=== PATIENT | male | born 1950 | race Caucasian/White ===

== ENCOUNTER 2022-09-13 09:54 | Outpatient (OUT) | payer MEDICARE, OTHER, SELFPAY ==
--- NOTE | 2022-09-13 10:10 | XR_ITS ---
The [address] [address] Patient Name: LAKIA RODRIGUEZ MRN: [id number] date: 1950 Sex: M Assigned Patient Location: [facility] Current Patient Location: [facility] Accession/Order Number: [id number] Exam Date: 09/13/2022 10:20 Report Date: 09/13/2022 12:23 At the request of: SILVIO AGUILA Procedure: XR abdomen 1V EXAM: XR abdomen 1V HISTORY: Constipation K59.00 COMPARISON: None. TECHNIQUE: AP view of the abdomen. FINDINGS: Nonobstructive bowel gas pattern is noted. There is no suspicious calcification. The osseous structures are intact. XR/XR abdomen 1V IMPRESSION: Nonobstructive bowel gas pattern. Mild constipation. Electronically authenticated by: PASTOR CAMPBELL Date: 09/13/2022 12:23
== END 2022-09-13 09:55 | disposition home or self-care (01) ==
LOC: RAD 10:02
PROVIDERS: PCP Nurse Practitioner Family; Visit Provider Nurse Practitioner Family
DX: K59.00 Constipation, unspecified (principal)
CPT/HCPCS: 74018

== ENCOUNTER 2022-09-25 10:32 | Outpatient (RCR) | payer MEDICARE, OTHER, SELFPAY | END 2022-10-11 15:46 | disposition home or self-care (01) | LOC: MM 10:32 | PROVIDERS: PCP Nurse Practitioner Family; Visit Provider Internal Medicine | DX: Z51.81 Encounter for therapeutic drug level monitoring (principal); Z79.01 Long term (current) use of 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 ==

== ENCOUNTER 2022-10-12 07:59 | Outpatient (RCR) | payer MEDICARE, OTHER, SELFPAY | END 2022-11-09 16:31 | disposition home or self-care (01) | LOC: MM 07:59 | PROVIDERS: PCP Nurse Practitioner Family; Visit Provider Internal Medicine | DX: Z51.81 Encounter for therapeutic drug level monitoring (principal); Z79.01 Long term (current) use of 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; I48.20 Chronic atrial fibrillation, unspecified | CPT/HCPCS: 85610; G0463 ==

== ENCOUNTER 2022-11-12 01:26 | Outpatient (RCR) | payer MEDICARE, OTHER, SELFPAY | END 2022-12-11 17:10 | disposition home or self-care (01) | LOC: MM 01:26 | PROVIDERS: PCP Nurse Practitioner Family; Visit Provider Internal Medicine | DX: Z51.81 Encounter for therapeutic drug level monitoring (principal); Z79.01 Long term (current) use of 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 ==

== ENCOUNTER 2022-11-13 15:59 | Outpatient (OUT) | payer MEDICARE, OTHER, SELFPAY | END 2022-11-13 16:00 | disposition home or self-care (01) | LOC: WC 16:00 | PROVIDERS: PCP Nurse Practitioner Family; Visit Provider Podiatrist Foot & Ankle Surgery | DX: S80.811A Abrasion, right lower leg, initial encounter (principal) | CPT/HCPCS: G0463 ==

== ENCOUNTER 2022-11-24 20:36 | Emergency (ER) | payer MEDICARE, OTHER, SELFPAY ==
[2022-11-24] VITALS (25 sets, daily range): BP systolic 114–149; BP diastolic 73–92; PULSE 62–218; RESP 12–27; TEMP 36.6; O2SAT 91–97
--- NOTE | 2022-11-24 20:59 | ECG_ITS ---
The [facility] Test Date: 2022-11-24 Pat Name: LAKIA RODRIGUEZ Department: Room: - Gender: Male Patient Relations Specialist: : 1950 Requested By: SILVIO AGUILA Order Number: [id number] Reading MD: YONATHAN DOMINGUEZ Measurements Intervals [place] Rate: 91 P: 61 MT: 162 QRS: 197 QRSD: 104 T: 60 QT: 358 QTc: 407 Interpretive Statements 1100 Sinus rhythm 1574 with frequent ventricular premature complexes 2440 Incomplete right bundle branch block 4068 Nonspecific Twave abnormality 5120 Possible right ventricular hypertrophy 9140 abnormal rhythm ECG No previous ECG available for comparison Electronically Signed On 11-25-2022 9:23:44 EDT by YONATHAN DOMINGUEZ
--- NOTE | 2022-11-24 20:59 | XR_ITS ---
The [place] [id number] Patient Name: LAKIA RODRIGUEZ MRN: [id number] date: 1950 Sex: M Assigned Patient Location: ER Current Patient Location: ED.MAIN Accession/Order Number: [id number] Exam Date: 11/24/2022 21:15 Report Date: 11/24/2022 22:54 At the request of: SHANELL SUNSHINE Procedure: XR chest 1V EXAMINATION: XR chest 1V, , 11/24/2022 9:15 PM EDT INDICATION: near syncope, palpitations HISTORY: Ordering Provider Reason for Exam: near syncope, palpitations Technologist Note: Additional: COMPARISON: None. TECHNIQUE: Chest x-ray: One view. FINDINGS: No pneumothorax, pleural effusion or focal airspace consolidation. Heart is normal in size. Bony thorax is unremarkable. XR/XR chest 1V IMPRESSION: No acute cardiopulmonary process. Electronically authenticated by: CHRISTINA RODRIGUEZ Date: 11/24/2022 22:54
--- NOTE | 2022-11-24 21:01 | ED_ITS ---
HPI - Dizziness General Chief Complaint: Chest Pain Stated Complaint: DIZZY SPELLS Time Seen by Provider: 11/24/22 20:53 Source: patient Mode of arrival: walk-in History of Present Illness HPI Narrative: 9-year-old male presents for symptoms that began just after 5:30 PM, 3-1/2 hours ago. It started with burning in his mouth. That symptom has been coming and going. At certain times he felt like his heart was racing and he felt like he w as going to pass out. This has never happened to him previously. He has not had a fever cough or vomiting. He doesn't have symptoms now. Related Data Home Medications Medication Instructions Recorded Confirmed amlodipine 2.5 mg tablet 2.5 mg PO DAILY 11/24/22 11/24/22 atorvastatin 10 mg tablet 10 mg PO DAILY 11/24/22 11/24/22 glipizide 5 mg tablet 5 mg PO DAILY 11/24/22 11/24/22 lisinopril 2.5 mg tablet 2.5 mg PO DAILY 11/24/22 11/24/22 warfarin 4 mg tablet 4 mg PO DAILY 11/24/22 11/24/22 Allergies Allergy/AdvReac Type Severity Reaction Status Date / Time Penicillins Allergy Unknown Verified 11/24/22 20:52 Review of Systems ROS Narrative A ten point review of systems is negative except as noted above. PFSH PFS Social History Smoking status: Never smoker Exam Narrative Exam Narrative: Nurses note and vital signs reviewed and patient is not hypoxic. General: The patient appears well and in no apparent distress. Patient is resting comfortably on cart. Skin: Warm, dry, no pallor noted. There is no rash noted. Head: Normocephalic, atraumatic Eye: Normal conjunctiva, no drainage Ears, Nose, Mouth, and Throat: oral mucosa is moist. Nares patent. Cardiovascular: Regular Rate and Rhythm Respiratory: Patient is in no distress, no accessory muscle use, lungs are clear to auscultation, no wheezing, rales or rhonchi Back: non-tender, no CVA tenderness bilaterally to percussion. GI: soft and nontender Musculoskeletal: The patient has no evidence of calf tenderness, no pitting edema, symmetrical pulses noted bilaterally Neurological: A&O, normal speech Psychiatric: Cooperative Constitutional Vital Signs, click to edit/add: Last Vital Signs Temp 98 F 11/24/22 20:41 Pulse 88 11/24/22 21:18 Resp 18 11/24/22 21:18 BP 149/92 H 11/24/22 21:18 Pulse Ox 97 11/24/22 21:18 O2 Del Method Room Air 11/24/22 20:41 Course Vital Signs Vital signs: Vital Signs Temperature 98 F 11/24/22 20:41 Pulse Rate 218 H 11/24/22 20:41 Respiratory Rate 16 11/24/22 20:41 Blood Pressure 149/92 H 11/24/22 20:41 Pulse Oximetry 96 11/24/22 20:41 Oxygen Delivery Method Room Air 11/24/22 20:41 Temperature 98 F 11/24/22 20:41 Pulse Rate 88 11/24/22 21:18 Respiratory Rate 18 11/24/22 21:18 Blood Pressure 149/92 H 11/24/22 21:18 Pulse Oximetry 97 11/24/22 21:18 Oxygen Delivery Method Room Air 11/24/22 20:41 MDM - Dizziness MDM Narrative Medical decision making narrative: The patient has had several episodes of a wide-complex tachycardia with a heart rate near two hundred, regular. Working diagnosis is that this is ventricular tachycardia the possibility of atrial fibrillation with aberrancy cannot be ruled out at this point. I discussed the case with Dr. Bradley who requests that the patient be transferred and be given a loading dose of amiodarone as well as a drip. The patient remains hemodynamically stable here and is agreeable for transfer. Findings are discussed thoroughly with the patient. Differential Diagnosis Differential diagnosis: Likely other (tachycardia, atrial fibrillation with aberrantly, a flutter) Lab Data Attestation: I reviewed the patient's lab results. Labs: Lab Results 11/24/22 Range/Units 21:00 WBC 10.2 (4.0-11.0) 10^3/uL RBC 5.19 (4.70-6.10) 10^6/uL Hgb 15.5 (14.0-18.0) g/dL Hct 46.0 (42.0-54.0) % MCV 88.6 (80.0-94.0) fL MCH 29.9 (25.9-34.0) pg MCHC 33.7 (29.9-35.2) g/dL RDW 13.9 (11.0-15.0) % Plt Count 229 (150-450) 10^3/uL MPV 10.5 (9.5-13.5) fL Neut % (Auto) 78.0 H (43.0-75.0) % Lymph % (Auto) 13.6 L (20.5-60.0) % [place] % (Auto) 6.7 (1.7-12.0) % Eos % (Auto) 1.1 (0.9-7.0) % Baso % (Auto) 0.4 (0.2-2.0) % Neut # (Auto) 8.0 H (1.4-6.5) 10^3/uL Lymph # (Auto) 1.4 (1.2-3.8) 10^3/uL [place] # (Auto) 0.7 (0.3-0.8) 10^3/uL Eos # (Auto) 0.1 (0.0-0.7) 10^3/uL Baso # (Auto) 0.0 (0.0-0.1) 10^3/uL Abs Immat Gran (auto) 0.02 (0.00-0.03) 10^3/uL Imm/Tot Granulo (auto) 0.2 (0.0-0.5) % Sodium 135 L (136-145) mmol/L Potassium 3.5 (3.5-5.1) mmol/L Chloride 101 (98-107) mmol/L Carbon Dioxide 27.7 (21.0-32.0) mmol/L Anion Gap 9.8 BUN 21.0 H (7.0-18.0) mg/dL Creatinine 1.70 H (0.70-1.30) mg/dL Est GFR ( Amer) 49 L (>=60) Est GFR (Non-Af Amer) 40 L (>=60) BUN/Creatinine Ratio 12.4 Glucose 286 H (74-106) mg/dL Calcium 9.0 (8.5-10.1) mg/dL Troponin I High Sens 20.8 (4.0-76.1) pg/mL TSH 1.354 (0.358-3.740) uIU/mL Imaging Data Chest x-ray: My impression: chest x-ray my interpretation shows no acute findings. ECG Data Attestation: I personally reviewed and interpreted this ECG as follows: (EKG on my interpretation shows sinus rhythm with frequent PVCs.) Critical Care Time Critical Care Time Critical Care Time: Yes Total Critical Care Time: 40 Attestation: Due to the high probability of sudden and clinically significant deterioration in the patient's condition he/she required the highest level of my preparedness to intervene urgently I provided critical care time including documentation time, medication orders and management, reevaluation, vital sign assessment, ordering and reviewing of lab tests, ordering and reviewing of x-ray studies, and admission orders. Aggregate critical care time is 40 minutes including only time during which I was engaged in work directly related to his/her care and did not include time spent treating other patients simultaneously. Discharge Plan Discharge Chief Complaint: Chest Pain Clinical Impression: Ventricular tachycardia (paroxysmal) Patient Disposition: [facility] Time of Disposition Decision: 22:16 Discharge Location: The [facility] Mode of Transportation: EMS
[2022-11-24 21:13] LABS: Basophils Percent Auto 0.4 % (0.2-2.0); Eosinophils Absolute Auto 0.1 10^3/uL (0.0-0.7); Eosinophils Percent Auto 1.1 % (0.9-7.0); Hemoglobin 15.5 g/dL (14.0-18.0); Immature Granulocytes Abs Auto 0.02 10^3/uL (0.00-0.03); Immature Granulocytes Pct Auto 0.2 % (0.0-0.5); Lymphocytes Absolute Auto 1.4 10^3/uL (1.2-3.8); Lymphocytes Percent Auto 13.6 % (20.5-60.0); Mean Corpuscular HGB Conc 33.7 g/dL (29.9-35.2); Mean Corpuscular Hemoglobin 29.9 pg (25.9-34.0); Mean Corpuscular Volume 88.6 fL (80.0-94.0); Mean Platelet Volume 10.5 fL (9.5-13.5); Monocytes Absolute Auto 0.7 10^3/uL (0.3-0.8); Monocytes Percent Auto 6.7 % (1.7-12.0); Platelet Count 229 10^3/uL (150-450); Red Blood Count 5.19 10^6/uL (4.70-6.10); Red Cell Distribution Width 13.9 % (11.0-15.0); White Blood Count 10.2 10^3/uL (4.0-11.0)
[2022-11-24 21:37] LABS: Anion Gap 9.8; BUN Creatinine Ratio 12.4; Carbon Dioxide 27.7 mmol/L (21.0-32.0); Chloride 101 mmol/L (98-107); Estimated GFR (African America 49 (>=60); Estimated GFR (Non-African Ame 40 (>=60); Glucose 286 mg/dL (74-106); Potassium 3.5 mmol/L (3.5-5.1); Sodium 135 mmol/L (136-145); Thyroid Stimulating Hormone 1.354 uIU/mL (0.358-3.740); Troponin I High Sensitivity 20.8 pg/mL (4.0-76.1)
[2022-11-24] MEDS: AMIODARONE IN DEXTROSE,ISO-OSM 150 MG/100 ML PIGGYBACK 600 MG IV (22:23)
[2022-11-24] MEDS: AMIODARONE IN DEXTROSE,ISO-OSM 360 MG/200 ML PLAST..BAG 33.333 MG IV (22:24)
[2022-11-24 22:29] LABS: Magnesium 1.8 mg/dL (1.8-2.4)
[2022-11-24 22:34] LABS: INR 1.73; Prothrombin Time 17.8 sec (9.0-11.6)
[2022-11-25] VITALS (18 sets, daily range): BP systolic 109–129; BP diastolic 74–87; PULSE 58–70; RESP 11–18; O2SAT 90–98
== END 2022-11-25 03:17 | disposition short-term general hospital (02) ==
PROVIDERS: Emergency Provider Emergency Medicine; PCP Nurse Practitioner Family
DX: I47.20 Ventricular tachycardia, unspecified (principal); Z79.899 Other long term (current) drug therapy; Z79.01 Long term (current) use of 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
CPT/HCPCS: 36415; 71045; 80048; 83735; 84443; 84484; 85025; 85610; 93005; 96374; 99285

== ENCOUNTER 2022-12-12 00:09 | Outpatient (RCR) | payer MEDICARE, OTHER, SELFPAY | END 2023-01-10 16:01 | disposition home or self-care (01) | LOC: MM 00:09 | PROVIDERS: PCP Nurse Practitioner Family; Visit Provider Internal Medicine | DX: Z51.81 Encounter for therapeutic drug level monitoring (principal); Z79.01 Long term (current) use of 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 | CPT/HCPCS: 85610; G0463 ==

== ENCOUNTER 2023-01-08 12:37 | Outpatient (OUT) | payer MEDICARE, OTHER, SELFPAY ==
[2023-01-08 14:49] LABS: Anion Gap 9.5; BUN Creatinine Ratio 15.7; Calcium 8.7 mg/dL (8.5-10.1); Carbon Dioxide 32.6 mmol/L (21.0-32.0); Chloride 103 mmol/L (98-107); Estimated GFR (African America 55 (>=60); Estimated GFR (Non-African Ame 45 (>=60); Glucose 187 mg/dL (74-106); Potassium 4.1 mmol/L (3.5-5.1); Sodium 141 mmol/L (136-145)
== END 2023-01-08 12:38 | disposition home or self-care (01) ==
LOC: LAB 12:38
PROVIDERS: PCP Nurse Practitioner Family; Visit Provider Nurse Practitioner Family
DX: I11.0 Hypertensive heart disease with heart failure (principal); I50.22 Chronic systolic (congestive) heart failure
CPT/HCPCS: 36415; 80048

== ENCOUNTER 2023-01-11 08:49 | Outpatient (RCR) | payer MEDICARE, OTHER, SELFPAY | END 2023-02-08 14:31 | disposition home or self-care (01) | LOC: MM 08:49 | PROVIDERS: PCP Nurse Practitioner Family; Visit Provider Internal Medicine | DX: Z51.81 Encounter for therapeutic drug level monitoring (principal); Z79.01 Long term (current) use of 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; I48.20 Chronic atrial fibrillation, unspecified | CPT/HCPCS: 85610; G0463 ==

== ENCOUNTER 2023-01-12 16:08 | Emergency (ER) | payer MEDICARE, OTHER, SELFPAY ==
[2023-01-12] VITALS (11 sets, daily range): BP systolic 138–180; BP diastolic 85–103; PULSE 61–73; RESP 9–19; TEMP 37.1; O2SAT 90–98; BMI 30.1
--- NOTE | 2023-01-12 16:22 | ECG_ITS ---
The [facility] Test Date: 2023-01-12 Pat Name: LAKIA RODRIGUEZ Department: Room: - Gender: Male Director College: : 1950 Requested By: SILVIO AGUILA Order Number: [id number] Reading MD: YONATHAN DOMINGUEZ Measurements Intervals [place] Rate: 68 P: 30 TN: 156 QRS: 140 QRSD: 102 T: 30 QT: 416 QTc: 433 Interpretive Statements 1100 Sinus rhythm 2440 Incomplete right bundle branch block 4068 Nonspecific Twave abnormality 5120 Possible right ventricular hypertrophy Can't exclude lateral wall ischemia 9130 borderline ECG Compared to ECG 11/24/2022 21:01:28 Ventricular premature complex(es) no longer present Electronically Signed On 01-13-2023 19:59:46 EST by YONATHAN DOMINGUEZ
--- NOTE | 2023-01-12 16:22 | XR_ITS ---
The [address] [address] Patient Name: LAKIA RODRIGUEZ MRN: [id number] date: 1950 Sex: M Assigned Patient Location: ER Current Patient Location: ED.MAIN Accession/Order Number: [id number] Exam Date: 01/12/2023 16:50 Report Date: 01/12/2023 17:31 At the request of: HARRY MELISSA Procedure: XR chest 1V EXAMINATION: XR chest 1V HISTORY: Shortness of breath COMPARISON: Portable chest 11/24/2022 TECHNIQUE: Portable chest FINDINGS: Interval placement of a left-sided cardiac pacemaker. The lung parenchyma is free of consolidation or infiltrate. No pneumothorax or pleural effusion. Stable calcified left hilar lymph node. The cardiac, mediastinal and hilar contours are normal. The visualized osseous structures exhibit no gross abnormality. XR/XR chest 1V IMPRESSION: No acute cardiopulmonary abnormality. Electronically authenticated by: FELICIA SANDERSON Date: 01/12/2023 17:31
[2023-01-12 16:47] LABS: Basophils Percent Auto 0.3 % (0.2-2.0); Eosinophils Percent Auto 0.1 % (0.9-7.0); Hematocrit 45.6 % (42.0-54.0); Hemoglobin 15.2 g/dL (14.0-18.0); Immature Granulocytes Abs Auto 0.03 10^3/uL (0.00-0.03); Immature Granulocytes Pct Auto 0.4 % (0.0-0.5); Lymphocytes Absolute Auto 0.3 10^3/uL (1.2-3.8); Lymphocytes Percent Auto 4.1 % (20.5-60.0); Mean Corpuscular HGB Conc 33.3 g/dL (29.9-35.2); Mean Corpuscular Hemoglobin 29.7 pg (25.9-34.0); Mean Corpuscular Volume 89.2 fL (80.0-94.0); Mean Platelet Volume 10.3 fL (9.5-13.5); Monocytes Absolute Auto 0.8 10^3/uL (0.3-0.8); Monocytes Percent Auto 10.3 % (1.7-12.0); Neutrophils Absolute Auto 6.7 10^3/uL (1.4-6.5); Neutrophils Percent Auto 84.8 % (43.0-75.0); Platelet Count 166 10^3/uL (150-450); Red Blood Count 5.11 10^6/uL (4.70-6.10); Red Cell Distribution Width 14.7 % (11.0-15.0); White Blood Count 7.9 10^3/uL (4.0-11.0)
[2023-01-12 17:00] LABS: SARS-CoV-2 Ag POSITIVE (NEGATIVE)
--- NOTE | 2023-01-12 17:10 | ED.SOB1 ---
HPI - SOB/Dyspnea General Chief Complaint: Shortness of Breath/Dyspnea Stated Complaint: pacemaker comp, sob Time Seen by Provider: 01/12/23 16:16 Mode of arrival: ambulance History of Present Illness HPI Narrative: Patient brought in by EMS for evaluation after he developed shortness of breath yesterday. he had a cough a few days ago and is bringing up yellowish green sputum. [facility] - after he had a pacemaker placed at [facility] last month. He said that he had a right lung collapse and had to have a chest tube placed. He was there `10 days before going [facility]. He has been home about 2 weeks. He admits to being out and about since then and is uncertain regarding potential ill contacts but admits it might be Covid . Related Data Home Medications Medication Instructions Recorded Confirmed amlodipine 2.5 mg tablet 2.5 mg PO DAILY 11/24/22 11/24/22 atorvastatin 10 mg tablet 10 mg PO DAILY 11/24/22 11/24/22 glipizide 5 mg tablet 5 mg PO DAILY 11/24/22 11/24/22 lisinopril 2.5 mg tablet 2.5 mg PO DAILY 11/24/22 11/24/22 warfarin 4 mg tablet 4 mg PO DAILY 11/24/22 11/24/22 Allergies Allergy/AdvReac Type Severity Reaction Status Date / Time Penicillins Allergy Unknown Verified 01/12/23 16:20 [facility] Social History Smoking status: Never smoker Exam Narrative Exam Narrative: Nurses notes and vital signs reviewed and patient is not hypoxic. afebrile General: Well-appearing and in no apparent distress. Skin: Warm, dry, no pallor noted. No rash. Head: Normocephalic, atraumatic. Neck: Supple, non-tender. Eye: Pupils are equal, round and EOMI. No scleral icterus. Ears, Nose, Mouth, and Throat: TM are clear, no nasal mucosal hypertrophy. Oral mucosa is moist, no posterior oropharynx erythema, uvula is mid-line Cardiovascular: Regular Rate and Rhythm without murmur, gallop or rub. Respiratory: No accessory muscle use or respiratory distress. Lungs with scattered rhonchi. Harsh cough. Musculoskeletal: normal ROM, no calf or popliteal tenderness, no lower extremity edema/swelling GI: Abdomen is soft, non-distended. Normal bowel sounds. No tenderness to palpation. No rebound, guarding, or rigidity noted. Neurological: A&O x4. No cranial nerve dysfunction observed. No truncal ataxia. Moves all extremities. Sensation intact. Psychiatric: Cooperative and interactive. Normal mood and affect. Constitutional Vital Signs, click to edit/add: Last Vital Signs Temp 98.8 F 01/12/23 16:15 Pulse 64 01/12/23 16:50 Resp 13 01/12/23 16:50 BP 159/94 H 01/12/23 16:45 Pulse Ox 95 01/12/23 16:59 Course Vital Signs Vital signs: Vital Signs Temperature 98.8 F 01/12/23 16:15 Pulse Rate 70 01/12/23 16:15 Respiratory Rate 15 01/12/23 16:15 Blood Pressure 180/103 H 01/12/23 16:15 Temperature 98.8 F 01/12/23 16:15 Pulse Rate 64 01/12/23 16:50 Respiratory Rate 13 01/12/23 16:50 Blood Pressure 159/94 H 01/12/23 16:45 Pulse Oximetry 95 01/12/23 16:59 MDM - SOB/Dyspnea MDM Narrative Medical decision making narrative: Patient was placed on shelter monitor and EKG obtained. Blood drawn and sent for evaluation. chest x-ray obtained. CBC normal. BMP notable for slightly increased BUN and Cr. Trop & BNP negative. CXR negative. Swab for COVID was positive. He has been vaccinated and boosted. Discussed the pros and cons of Paxlovid but I have seen too many patient worsen after taking it so I do not recommend it and did not prescribe it for this patient. Patient discharged home. Patient advised to rest, stay at home, practice social distancing, take Motrin and Tylenol for pain and fever if not allergic, stay well hydrated with Gatorade or similar drinks if vomiting or eat as tolerated if not and take any meds as prescribed. Reviewed reasons to return including rapid increase in respiratory rate, shortness of breath, confusion, inability to keep down sips of swallowed liquids for more than 24 hours. Asked patient to encourage any ill contacts to stay home and practice similar advice. Lab Data Attestation: I reviewed the patient's lab results. Labs: Lab Results 01/12/23 01/12/23 Range/Units 16:30 16:38 WBC 7.9 (4.0-11.0) 10^3/uL RBC 5.11 (4.70-6.10) 10^6/uL Hgb 15.2 (14.0-18.0) g/dL Hct 45.6 (42.0-54.0) % MCV 89.2 (80.0-94.0) fL MCH 29.7 (25.9-34.0) pg MCHC 33.3 (29.9-35.2) g/dL RDW 14.7 (11.0-15.0) % Plt Count 166 (150-450) 10^3/uL MPV 10.3 (9.5-13.5) fL Neut % (Auto) 84.8 H (43.0-75.0) % Lymph % (Auto) 4.1 L (20.5-60.0) % [place] % (Auto) 10.3 (1.7-12.0) % Eos % (Auto) 0.1 L (0.9-7.0) % Baso % (Auto) 0.3 (0.2-2.0) % Neut # (Auto) 6.7 H (1.4-6.5) 10^3/uL Lymph # (Auto) 0.3 L (1.2-3.8) 10^3/uL [place] # (Auto) 0.8 (0.3-0.8) 10^3/uL Eos # (Auto) 0.0 (0.0-0.7) 10^3/uL Baso # (Auto) 0.0 (0.0-0.1) 10^3/uL Abs Immat Gran (auto) 0.03 (0.00-0.03) 10^3/uL Imm/Tot Granulo (auto) 0.4 (0.0-0.5) % Sodium 138 (136-145) mmol/L Potassium 3.8 (3.5-5.1) mmol/L Chloride 102 (98-107) mmol/L Carbon Dioxide 26.6 (21.0-32.0) mmol/L Anion Gap 13.2 BUN 19.0 H (7.0-18.0) mg/dL Creatinine 1.61 H (0.70-1.30) mg/dL Est GFR ( Amer) 52 L (>=60) Est GFR (Non-Af Amer) 43 L (>=60) BUN/Creatinine Ratio 11.8 Glucose 150 H (74-106) mg/dL Calcium 8.9 (8.5-10.1) mg/dL Troponin I High Sens 10.7 (4.0-76.1) pg/mL NT-Pro-B Natriuret Pep 757.0 (<=900.0) pg/mL SARS-CoV-2 (PCR) Positive A (NEGATIVE) Imaging Data Chest x-ray: Radiologist's impression: Patient Name: LAKIA RODRIGUEZ MRN: [facility]:[id number] date: 1950 Sex: M Assigned Patient Location: ER Current Patient Location: ED.MAIN Accession/Order Number: [id number] Exam Date: 01/12/2023 16:50 Report Date: 01/12/2023 17:31 At the request of: HARRY MELISSA Procedure: XR chest 1V EXAMINATION: XR chest 1V HISTORY: Shortness of breath COMPARISON: Portable chest 11/24/2022 TECHNIQUE: Portable chest FINDINGS: Interval placement of a left-sided cardiac pacemaker. The lung parenchyma is free of consolidation or infiltrate. No pneumothorax or pleural effusion. Stable calcified left hilar lymph node. The cardiac, mediastinal and hilar contours are normal. The visualized osseous structures exhibit no gross abnormality. IMPRESSION: No acute cardiopulmonary abnormality. Electronically authenticated by: FELICIA SANDERSON Date: 01/12/2023 17:31 ECG Data Attestation: I personally reviewed and interpreted this ECG as follows: Interpretation: EKG interpretation: Emergency Department physician interpretation. Normal sinus rhythm at 68bpm. Inc RBBB. RVH/RAD. no ST segment elevation or depression. Discharge Plan Discharge Chief Complaint: Shortness of Breath/Dyspnea Clinical Impression: COVID Time of Disposition Decision: 17:36 Prescriptions / Home Meds: No Action amlodipine 2.5 mg tablet 2.5 mg PO DAILY atorvastatin 10 mg tablet 10 mg PO DAILY lisinopril 2.5 mg tablet 2.5 mg PO DAILY glipizide 5 mg tablet 5 mg PO DAILY warfarin 4 mg tablet 4 mg PO DAILY Instructions: COVID-19 (Coronavirus Disease 2019) (ED) Stand Alone Forms: Portal Instructions Referrals: SILVIO AGUILA [Primary Care Provider] - 1 week
[2023-01-12 17:11] LABS: Anion Gap 13.2; BUN Creatinine Ratio 11.8; Calcium 8.9 mg/dL (8.5-10.1); Carbon Dioxide 26.6 mmol/L (21.0-32.0); Chloride 102 mmol/L (98-107); Estimated GFR (African America 52 (>=60); Estimated GFR (Non-African Ame 43 (>=60); Glucose 150 mg/dL (74-106); Potassium 3.8 mmol/L (3.5-5.1); Sodium 138 mmol/L (136-145); Troponin I High Sensitivity 10.7 pg/mL (4.0-76.1)
== END 2023-01-12 18:28 | disposition home or self-care (01) ==
PROVIDERS: Emergency Provider Emergency Medicine; PCP Nurse Practitioner Family
DX: U07.1 COVID-19 (principal); Z79.01 Long term (current) use of 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; Z79.899 Other long term (current) drug therapy
CPT/HCPCS: 36415; 71045; 80048; 83880; 84484; 85025; 87811; 93005; 99285

== ENCOUNTER 2023-01-30 08:43 | Outpatient (OUT) | payer MEDICARE, OTHER, SELFPAY ==
--- OUTSIDE RECORDS SUMMARY | 2023-01-30 08:55 | XMS_ITS | CCD ---
Author Name Unknown Address [address] [facility] [address] [place] [address] Organization [facility] Care Team Providers Care Quantitative Researcher Name Role Phone DOMINGO SARAVIA Unavailable Unavailab Shad May Primary Care Physician Josephine Zambrano Unavailable Unavailable Aggie [place] Unavailable Unavailable KARIS, DR DORMAN Primary Care Unavailable CYNTHIA AGUILA Attending Unavailable CYNTHIA AGUILA Admitting Unavailable KARIS, DR DORMAN Primary Care Unavailable CYNTHIA AGUILA Attending Unavailable CYNTHIA AGUILA Consulting Unavailable CYNTHIA AGUILA Admitting Unavailable Cira, Yusra A Attending Unavailable Cira, Yusra A Attending Unavailable Cira Yusra A Attending Unavailable Domingo DE LA ROSA Attending Unavailable Dougie Harmon Attending Unavailable Aggie Lynn Admitting Unavailable Aggie Lynn Attending Unavailable Aggie Lynn Referring Unavailable Cira, Yusra A Consulting Unavailable Dougie Harmon Admitting Unavailable Dougie Harmon Attending Unavailable Cira, Yusra A Consulting Unavailable Cira, Yusra A Consulting Unavailable Cira, Yusra A Consulting Unavailable Cira, Yusra A Consulting Unavailable Cira, Yusra A Consulting Unavailable Cira, Yusra A Consulting Unavailable CiraISIDRA Yusra A Consulting Unavailabl e Cira, Yusra A Consulting Unavailable Cira, Yusra A Admitting Unavailable Cira, Yusra A Attending Unavailable ADRIANA KIRKLAND Referring Unavailab le SHANTELL, MARTIN Referring Unavailable ANABELA JESUS Admitting Unavailable SHANTELL, MARTIN Referring Unavailable ADRIANA KIRKLAND Attending Unavailab ADRIANA Segal Consulting Unavailab ADRIANA Segal Referring Unavailab le MATILDE, HAYLEY Referring Unavailable GANGWANI, ADRIANA SANTOS Referring Unavailab le GANGWANI, ADRIANA SANTOS Referring Unavailab le TERENCE, NORI Attending Unavailable GANGWANI, ADRIANA SANTOS Referring Unavailab le TERENCE, NORI Attending Unavailable TERENCE, NORI Attending Unavailable ANABELA, JESUS Referring Unavailable ANABELA, JESUS Referring Unavailable MOUKARBEL, CHARLEEN Referring Unavailable ANABELA, JESUS Referring Unavailable GANGWANI, ADRIANA SANTOS Referring Unavailab le GANGWANI, ADRIANA SANTOS Referring Unavailab le GANGWANI, ADRIANA SANTOS Referring Unavailab le MATILDE, HAYLEY Referring Unavailable YEARTY, DEANNA Referring Unavailable GANGWANI, ADRIANA SANTOS Referring Unavailab le YEARTY, DEANNA Referring Unavailable TERENCE, NORI Attending Unavailable GANGWANI, ADRIANA SANTOS Referring Unavailab le MATILDE, HAYLEY Referring Unavailable JONG, MERCEDES Referring Unavailable Allergies Allergy Classification Reported Allergen(s) Allergy Type Date of Onset Reaction(s) Facility (15 sources) Penicillins; 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: [PENICILLINS] Propensity to adverse reactions to drug (disorder) 6 AOF, unknown [facility] Repository (5 sources) RAGWEED; 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: [RAGWEED] Propensity to adverse reactions to drug (disorder) 6 Dyspnea (finding) [facility] Repository (1 source) house dust allergenic extract; 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: [HOUSE DUST] Drug Allergy 3 [facility] Repository Medications Current Medications Medication Drug Class(es) Dates Sig (Normalized) Sig (Original) albuterol HFA 90 mcg/inh MDI (11 sources) Start: 05-13-2018 take 2 puff(s) by inhalation four times daily for wheezing albuterol HFA 90 mcg/inh MDI 2 puff(s), Inhalation, QID for wheezing, 6.7 gram, Refill(s) 0, [facility]/pharmacy #[id number] Start Date: 05/13/18 Status: Ordered amLODIPine 2.5 mg oral tablet (11 sources) Dihydropyridine Calcium Channel Darryl Start: 11-22-2017 take 1 tablet by mouth once daily amLODIPine 2.5 mg Tab 2.5 mg = 1 tab(s), Oral, Daily, # 30 tab(s), Refills(s) 0, High blood pressure Start Date: 11/22/17 Status: Ordered apixaban 2.5 mg oral tablet (11 sources) Factor Xa Inhibitor Start: 08-29-2018 take 1 tablet by mouth twice daily Eliquis 2.5 mg oral tablet 2.5 mg = 1 tab(s), Oral, BID, # 60 tab(s), Refills(s) 5, Pharmacy: [facility]/pharmacy #[id number] Start Date: 08/29/18 Status: Ordered atorvastatin 10 mg oral tablet (11 sources) HMG-CoA Reductase Inhibitor Start: 11-22-2017 take 1 tablet by mouth once daily atorvastatin 10 mg Tab 10 mg = 1 tab(s), Oral, Daily, # 30 tab(s), Refills(s) 0, High cholesterol Start Date: 11/22/17 Status: Ordered glipiZIDE 5 mg oral tablet (11 sources) Sulfonylurea Start: 07-13-2019 take 1 tablet by mouth once daily glipiZIDE 5 mg Tab 5 mg = 1 tab(s), Oral, Daily, # 30 tab(s), Refills(s) 0, Blood glucose Start Date: 07/13/19 Status: Ordered Immodium A-D 2 mg Cap (6 sources) Start: 04-05-2017 take 1 capsule by mouth once Immodium A-D 2 mg Cap 2 mg = 1 cap(s), Oral, QIDACHS, pt takes scheduled unless constipated, Refills(s) 0, Diarrhea Start Date: 04/05/17 Status: Ordered lisinopril 2.5 mg oral tablet (11 sources) Angiotensin Converting Enzyme Inhibitor Start: 05-12-2018 take 1 tablet by mouth once daily lisinopril 2.5 mg Tab 2.5 mg = 1 tab(s), Oral, Daily, Refills(s) 0, High blood pressure Start Date: 05/12/18 Status: Ordered loperamide hydrochloride 2 mg oral capsule (5 sources) Opioid Agonist Start: 04-05-2017 take 1 capsule by mouth once Immodium A-D 2 mg Cap 2 mg = 1 cap(s), Oral, QIDACHS, pt takes scheduled unless constipated, Refills(s) 0, Diarrhea Start Date: 04/05/17 Status: Ordered NuLYTELY Carrillo oral powder for reconstitution (1 source) Start: 07-19-2021 Marci Carrillo oral powder for reconstitution See Instructions, 1 EA, Refill(s) 0, Prior to colonoscopy., [facility]/pharmacy #[id number], 167.6, cm, 07/19/21 8:57:00 EDT, Height/Length Dosing, 93, kg, 07/19/21 8:57:00 EDT, Weight Dosing Start Date: 07/19/21 Status: Ordered pantoprazole 40 mg extended release oral tablet (11 sources) Proton Pump Inhibitor Start: 02-18-2017 take 40 mg by mouth once daily pantoprazole 40 mg, Oral, Daily, Refills(s) 0, Control of stomach acid Start Date: 02/18/17 Status: Ordered pioglitazone 15 mg oral tablet (11 sources) Peroxisome Proliferator Receptor alpha Agonist, Peroxisome Proliferator Receptor gamma Agonist, Thiazolidinedione Start: 05-12-2018 take 1 tablet by mouth once daily pioglitazone 15 mg Tab 15 mg = 1 tab(s), Oral, Daily, Refills(s) 0, Blood glucose Start Date: 05/12/18 Status: Ordered polyethylene glycol 3350 74949 mg powder for oral solution (8 sources) Osmotic Laxative Start: 05-12-2018 polyethylene glycol 3350 Oral Pwdr for Recon 17 gram, Oral, Daily, PRN Constipation, dissolve in water before taking, Refills(s) 0 Start Date: 05/12/18 Status: Ordered polyethylene glycol 3350 Oral Pwdr for Recon (3 sources) Start: 05-12-2018 polyethylene glycol 3350 Oral Pwdr for Recon 17 gram, Oral, Daily, PRN Constipation, dissolve in water before taking, Refills(s) 0 Start Date: 05/12/18 Status: Ordered predniSONE 10 mg oral tablet (11 sources) Start: 05-13-2018 predniSONE 10 mg Tab See Instructions, Oral 6 tabs for 1 day,5 tabs for 1 day,4 tabs for 1 day,3 tabs for 1 day,2 tabs for 1 day,1 tab for 1 day, # 21 tab(s), Refills(s) 0, Pharmacy: [facility]/pharmacy #[id number] Start Date: 05/13/18 Status: Ordered psyllium 525 mg oral capsule (3 sources) Start: 05-17-2022 End: 06-22-2023 take 5 capsules by mouth once daily Metamucil 525 mg oral capsule 2,625 mg = 5 cap(s), Oral, Daily, X 90 day(s), # 450 cap(s), Refills(s) 3, [id number] 167.6, cm, 06/27/22 8:28:00 EDT, Height/Length Dosing, 94.9, kg, 06/27/22 8:28:00 EDT, Weight Dosing Start Date: 06/27/22 Stop Date: 06/22/23 Status: Ordered warfarin sodium 4 mg oral tablet (20 sources) Vitamin K Antagonist Start: 04-14-2019 take 1 tablet by mouth once Coumadin 4 mg Tab 4 mg = 1 tab(s), Oral, As Directed, as directed, per INR results, # 90 tab(s), Refills(s) 0, [id number], 167.6, cm, 01/02/19 13:46:00 EST, Height/Length Measured, 95.8, kg, 01/02/19 13:46:00 EST, Weight Measured Start Date: 04/14/19 Status: Ordered Start: 05-12-2018 warfarin 4 mg Tab 4 mg = 1 tab(s), Oral, MonWeFrSaSu, Refills(s) 0, Blood Thinner Start Date: 05/12/18 Status: Ordered Problems Active Problems Problem Classification Problem Date Documented Date Episodic/Chronic Asthma (2 sources) Mild intermittent asthma, uncomplicated; 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: [Mild intermittent asthma, uncomplicated] Onset: 3 Chronic Cancer of colon (11 sources) Carcinoma of colon, stage I 04-05-2017 Chronic Cancer of colon (1 source) History of malignant neoplasm of colon; 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: [Personal history of other malignant neoplasm of large intestine] Onset: 2 Episodic Cancer of rectum and anus (13 sources) History of malignant neoplasm of rectum; 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: [Personal history of other malignant neoplasm of rectum, rectosigmoid junction, and anus] Onset: 2 Episodic Cardiac dysrhythmias (2 sources) Paroxysmal atrial fibrillation; 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: [Paroxysmal atrial fibrillation] Onset: 3 Chronic Coagulation and hemorrhagic disorders (11 sources) Hypercoagulability state 11-14-2020 Chronic Conduction disorders (2 sources) Presence of automatic (implantable) cardiac defibrillator; 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: [Presence of automatic (implantable) cardiac defibrillator] Onset: 3 Chronic Congestive heart failure; nonhypertensive (6 sources) Chronic systolic (congestive) heart failure; 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: [Acute on chronic systolic (congestive) heart failure] Onset: 3 Chronic Coronary atherosclerosis and other heart disease (4 sources) Atherosclerotic heart disease of [place] coronary artery without angina pectoris; 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: [Coronary atherosclerosis due to calcified coronary lesion] Onset: 3 Chronic Diverticulosis and diverticulitis (8 sources) Diverticula of intestine; 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: [Diverticulosis of intestine, part unspecified, without perforation or abscess without bleeding] Onset: 2 Chronic Esophageal disorders (20 sources) Gastroesophageal reflux disease without esophagitis; 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: [Gastro-esophageal reflux disease without esophagitis] Onset: 2 Chronic Hemorrhoids (8 sources) Hemorrhoids; 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: [Unspecified hemorrhoids] Onset: 2 Episodic Hypertension with complications and secondary hypertension (4 sources) Hypertensive chronic kidney disease with stage 5 chronic kidney disease or end stage renal disease; 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: [Hypertensive heart disease with heart failure] Onset: 3 Chronic Other aftercare (2 sources) Drug monitoring done; 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: [Encounter for therapeutic drug level monitoring] Episodic Other aftercare (2 sources) Long-term current use of anticoagulant; 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: [exterminator termite (current) use of 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] Episodic Other aftercare (2 sources) MCC (current) use of 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; 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: [exterminator termite (current) use of 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] Onset: 3 Episodic Other and unspecified benign neoplasm (8 sources) Polyp of colon; 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: [Polyp of colon] Onset: 2 Episodic Other and unspecified benign neoplasm (4 sources) History of polyp of colon; 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: [Personal history of colonic polyps] Onset: 3 Episodic Other gastrointestinal disorders (11 sources) Dysphagia; 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: [Dysphagia, unspecified] Onset: 2 Episodic Other gastrointestinal disorders (2 sources) Altered bowel function; 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: [Change in bowel habit] Onset: 2 Episodic Other gastrointestinal disorders (9 sources) Alteration in bowel elimination 06-08-2022 Episodic Other gastrointestinal disorders (1 source) Constipation, unspecified; 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: [Constipation, unspecified] Onset: 3 Episodic Other gastrointestinal disorders (1 source) Swollen abdomen; 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: [Abdominal distension (gaseous)] Onset: 3 Episodic Other gastrointestinal disorders (3 sources) Abdominal bloating 05-17-2022 Episodic Other gastrointestinal disorders (3 sources) Constipation 05-17-2022 Episodic Other upper respiratory infections (1 source) Acute sinusitis, unspecified; 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: [ACUTE SINUSITIS UNSPECIFIED] Onset: 2 Episodic Phlebitis; thrombophlebitis and thromboembolism (15 sources) Deep venous thrombosis; 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: [History of thromboembolism of vein] Onset: 3 04-05-2017 Episodic Pulmonary heart disease (2 sources) Other pulmonary embolism without acute cor pulmonale; 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: [Other pulmonary embolism without acute cor pulmonale] Onset: 3 Episodic Unclassified (1 source) Unknown / UNK(Unknown) Onset: 8 Unclassified (2 sources) CONTACT W/AND (SUSP) EXPOS COVID-19; 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: [CONTACT W/AND (SUSP) EXPOS COVID-19] Onset: 2 Unclassified (1 source) Ventricular tachycardia, unspecified; 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: [Ventricular tachycardia, unspecified] Onset: 3 Viral infection (1 source) COVID-19; 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: [COVID-19] Onset: 2 Past or Other Problems Problem Classification Problem Date Documented Da te Episodic/Chronic Unclassified (1 source) CONTACT W/AND (SUSP) EXPOS COVID-19; 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: [CONTACT W/AND (SUSP) EXPOS COVID-19] Onset: 12-14-2021 Unclassified (1 source) Ventricular tachycardia, unspecified; 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: [Ventricular tachycardia, unspecified] Onset: 11-25-2022 Results Test Name Value Interpretation Reference Range Facil ity Follow-Upon 12-12-2022 Follow-Up Normal [facility] Documentationon 12-06-2022 Documentation Normal [facility] 30on 12-05-2022 30 Normal [facility] BASIC METABOLIC PANELon 11-12 Anion gap [Moles/Vol] 10 mmol/L Normal 7-20 [facility] Comment on above: Performed By: #### L [id number] ####[facility] ([facility])[address] [place] [address] Calcium [Mass/Vol] 9.3 mg/dL Normal 8.6-10.3 [facility] Comment on above: Performed By: #### L [id number] ####[facility] ([facility])[address] [place] [address] Chloride [Moles/Vol] 104 mmol/L Normal 98-[address] [facility] Comment on above: Performed By: #### L [id number] ####[facility] ([facility])[address] [place] [address] CO2 [Moles/Vol] 24 mmol/L Normal 21-31 [facility] Comment on above: Performed By: #### L [id number] ####[facility] ([facility])[address] [place] [address] Creatinine [Mass/Vol] 1.20 mg/dL Normal 0.70-1.30 [facility] Comment on above: Performed By: #### L [id number] ####[facility] ([facility])[address] [place] [address] GLOMERULAR FILTRATION RATE ML/MIN/1.73 SQ M.PREDICTED 65.1 mL/min/1.73m*2 Normal >60.0 [facility] Comment on above: Result Comment: [facility]???s estimated glomerular filtration rate (eGFR) will no longer include consideration of race in its calculation. The National Kidney Foundation???s eGFR Task Force developed new recommendations for the estimation of the glomerular filtration rate in the [place] They recommend immediate implementation of the new equation refit without the race variable in all laboratories because the calculation does not include race. In addition to not including race in the calculation and reporting, it included diversity in its development, and has acceptable performance characteristics and potential consequences that do not disproportionately affect any one group of individuals. Performed By: #### L [id number] ####[facility] [place] [address] Glucose [Mass/Vol] 148 mg/dL High 70-100 [facility] Comment on above: Performed By: #### L [id number] ####[facility] ([facility] [place] [address] Potassium [Moles/Vol] 4.3 mmol/L Normal 3.5-5.1 [facility] Comment on above: Performed By: #### L [id number] ####[facility] [place] [address] Sodium [Moles/Vol] 134 mmol/L Low 136-145 [facility] Comment on above: Performed By: #### L [id number] ####[facility] ([facility])[address] [place] [address] Urea nitrogen [Mass/Vol] 28 mg/dL High 7-25 [facility] Comment on above: Performed By: #### L [id number] ####[facility] ([facility])[address] [place] [address] UREA NITROGEN/CREATININE (MA SS RATIO) IN SER/PLAS 23.3 Normal [facility] Comment on above: Performed By: #### L [id number] ####[facility] ([facility])[address] [place] [address] CBCon 12-05-2022 Erythrocyte distribution wid th (RBC) [Ratio] 14.3 % Normal 11.5-15.0 [facility] Comment on above: Performed By: #### L [id number] ####[facility] ([facility])[address] [place] [address] ERYTHROCYTE MEAN CORPUSCULAR HEMOGLOBIN CONCENTRATION (G/DL) BY AUTOMATED 33.5 g/dL Normal 32.0-35.0 [facility] Comment on above: Performed By: #### L [id number] ####[facility] ([facility] [place] [address] Hematocrit (Bld) [Volume fraction] 39.4 % Normal 39.0-55.0 [facility] Comment on above: Performed By: #### L [id number] ####[facility] ([facility])[address] [place] [address] Hemoglobin (Bld) [Mass/Vol] 13.2 g/dL Normal 13.0-17. 0 [facility] Comment on above: Performed By: #### L [id number] ####[facility] ([facility])[address] [address] IMMATURE PLATELET FRACTION % 2.2 % Normal 0.8-6.3 [facility] Comment on above: Performed By: #### L [id number] ####[facility] ([facility])[address] [place] [address] MCH (RBC) [Entitic mass] 29.7 pg Normal 27.0-33.0 [facility] Comment on above: Performed By: #### L [id number] ####[facility] ([facility])[address] [place] [address] MCV (RBC) [Entitic vol] 88.5 fL Normal 82.0-98.0 [facility] Comment on above: Performed By: #### L [id number] ####[facility] ([facility])[address] [address] PLATELETS (10*3/UL) IN BLOOD AUTOMATED COUNT 132 10*3/uL Low 150-400 [facility] Comment on above: Performed By: #### L [id number] ####[facility] ([facility])[address] [place] [address] RBC (Bld) [#/Vol] 4.45 10*6/uL Normal 4.20-5.70 [facility] Comment on above: Performed By: #### L [id number] ####[facility] ([facility])[address] [place] [address] WBC (Bld) [#/Vol] 6.95 10*3/uL Normal 4.00-10.60 [facility] Comment on above: Performed By: #### L [id number] ####[facility] ([facility])[address] [place] [address] DSon 12-05-2022 DS Normal [facility] POCT GLUCOSE METER UNSOLICIT ED RESULTSon 12-05-2022 Glucose [Mass/Vol] 147 mg/dL High 70-105 [facility] Comment on above: Order Comment: Waive d Testing in the ED is performed under the ED CLIA certificate #[id number]. Result Comment: [email or web address] Performed By: #### L [id number] ####[facility] ([facility])[address] [place] [address] Glucose [Mass/Vol] 185 mg/dL High 70-105 [facility] Comment on above: Order Comment: Waive d Testing in the ED is performed under the ED CLIA certificate #[id number]. Result Comment: [email or web address] Performed By: #### L [id number] ####[facility] ([facility])[address] [place] [address] Glucose [Mass/Vol] 153 mg/dL High 70-105 [facility] Comment on above: Order Comment: Waive d Testing in the ED is performed under the ED CLIA certificate #[id number]. Result Comment: [email or web address] Performed By: #### L [id number] ####[facility] ([facility])[address] [facility] [address] 30on 12-04-2022 30 The patient is Moder ately Stable - Low risk of patient condition declining or worsening The patient's goals for the shift include comfort The clinical goals for the shift include stable vitals Normal [facility] 30 Normal [facility] 30 The patient is Moder ately Stable - Low risk of patient condition declining or worsening The patient's goals for the shift include Comfort The clinical goals for the shift include VSS Normal [facility] BASIC METABOLIC PANELon 10-2 Anion gap [Moles/Vol] 11 mmol/L Normal 7-20 [facility] Comment on above: Performed By: #### L [id number] ####[facility] ([facility])[address] [place] [address] Calcium [Mass/Vol] 8.9 mg/dL Normal 8.6-10.3 [facility] Comment on above: Performed By: #### L [id number] ####[facility] ([facility])[address] [place] [address] Chloride [Moles/Vol] 105 mmol/L Normal 98-[address] [facility] Comment on above: Performed By: #### L [id number] ####[facility] ([facility])[address] [place] [address] CO2 [Moles/Vol] 23 mmol/L Normal 21-31 [facility] Comment on above: Performed By: #### L [id number] ####[facility] [place] [address] Creatinine [Mass/Vol] 1.32 mg/dL High 0.70-1.30 [facility] Comment on above: Performed By: #### L [id number] ####[facility] ([facility])[address] [place] [address] GLOMERULAR FILTRATION RATE ML/MIN/1.73 SQ M.PREDICTED 58.0 mL/min/1.73m*2 Low >60.0 [facility] Comment on above: Result Comment: [facility]???s estimated glomerular filtration rate (eGFR) will no longer include consideration of race in its calculation. The National Kidney Foundation???s eGFR Task Force developed new recommendations for the estimation of the glomerular filtration rate in the [place] They recommend immediate implementation of the new equation refit without the race variable in all laboratories because the calculation does not include race. In addition to not including race in the calculation and reporting, it included diversity in its development, and has acceptable performance characteristics and potential consequences that do not disproportionately affect any one group of individuals. Performed By: #### L [id number] ####[facility] ([facility] [place] [address] Glucose [Mass/Vol] 144 mg/dL High 70-100 [facility] Comment on above: Performed By: #### L [id number] ####[facility] ([facility])[address] [place] [address] Potassium [Moles/Vol] 4.5 mmol/L Normal 3.5-5.1 [facility] Comment on above: Performed By: #### L [id number] ####[facility] ([facility])[address] [place] [address] Sodium [Moles/Vol] 134 mmol/L Low 136-145 [facility] Comment on above: Performed By: #### L [id number] ####[facility] ([facility])[address] [place] [address] Urea nitrogen [Mass/Vol] 37 mg/dL High 7-25 [facility] Comment on above: Performed By: #### L [id number] ####[facility] ([facility])[address] [place] [address] UREA NITROGEN/CREATININE (MA SS RATIO) IN SER/PLAS 28.0 Normal [facility] Comment on above: Performed By: #### L [id number] ####[facility] ([facility])[address] [place] [address] CBCon 12-04-2022 Erythrocyte distribution wid th (RBC) [Ratio] 14.9 % Normal 11.5-15.0 [facility] Comment on above: Performed By: #### L [id number] ####[facility] ([facility])[address] [place] [address] ERYTHROCYTE MEAN CORPUSCULAR HEMOGLOBIN CONCENTRATION (G/DL) BY AUTOMATED 32.6 g/dL Normal 32.0-35.0 [facility] Comment on above: Performed By: #### L [id number] ####[facility] [facility] [place] [address] Hematocrit (Bld) [Volume fraction] 39.0 % Normal 39.0-55.0 [facility] Comment on above: Performed By: #### L [id number] ####[facility] (BEAKER)[address] [place] [address] Hemoglobin (Bld) [Mass/Vol] 12.7 g/dL Low 13.0-17. 0 [facility] Comment on above: Performed By: #### L [id number] ####[facility] (BEAKER)[address] [place], [place] [address] IMMATURE PLATELET FRACTION % 3.8 % Normal 0.8-6.3 [facility] Comment on above: Performed By: #### L [id number] ####[facility] (BEAKER)[address] [address] MCH (RBC) [Entitic mass] 29.6 pg Normal 27.0-33.0 [facility] Comment on above: Performed By: #### L [id number] ####[facility] [place], [place] [address] MCV (RBC) [Entitic vol] 90.9 fL Normal 82.0-98.0 [facility] Comment on above: Performed By: #### L [id number] ####[facility] (BEAKER)[address] [address] PLATELETS (10*3/UL) IN BLOOD AUTOMATED COUNT 130 10*3/uL Low 150-400 [facility] Comment on above: Performed By: #### L [id number] ####[facility] (BEAKER)[address] [place] [address] RBC (Bld) [#/Vol] 4.29 10*6/uL Normal 4.20-5.70 [facility] Comment on above: Performed By: #### L [id number] ####[facility] (BEAKER)[address] [place] [address] WBC (Bld) [#/Vol] 6.97 10*3/uL Normal 4.00-10.60 [facility] Comment on above: Performed By: #### L [id number] ####[facility] ([facility])[address] [place] [address] POCT GLUCOSE METER UNSOLICIT ED RESULTSon 12-04-2022 Glucose [Mass/Vol] 167 mg/dL High 70-105 [facility] Comment on above: Order Comment: Waive d Testing in the ED is performed under the ED CLIA certificate #[id number]. Result Comment: [email or web address] Performed By: #### L [id number] ####[facility] ([facility])[address] [place] [address] Glucose [Mass/Vol] 105 mg/dL Normal 70-105 [facility] Comment on above: Order Comment: Waive d Testing in the ED is performed under the ED CLIA certificate #[id number]. Result Comment: [email or web address] Performed By: #### L [id number] ####[facility] ([employer])[address] [place] [address] Glucose [Mass/Vol] 152 mg/dL High 70-105 [facility] Comment on above: Order Comment: Waive d Testing in the ED is performed under the ED CLIA certificate #[id number]. Result Comment: [email or web address] Performed By: #### L [id number] ####[facility] ([facility])[address] [place] [address] 30on 12-03-2022 30 The patient is Moder ately Stable - Low risk of patient condition declining or worsening The patient's goals for the shift include comfort The clinical goals for the shift include stable vitals Normal [facility] 30 The patient is Moder ately Stable - Low risk of patient condition declining or worsening The patient's goals for the shift include Comfort The clinical goals for the shift include VSS Normal [facility] 30 Normal [facility] ANESon 12-03-2022 ANES Normal [facility] ANES Normal [facility] Anesthesiaon 12-03-2022 Anesthesia [id number] Gray Rodriguez 1950 M Date Provider Department [place] 12/03/2022 YONATHAN REBOLLEDO [facility] Medical C No family history on file Normal [facility] BASIC METABOLIC PANELon 10-2 Anion gap [Moles/Vol] 12 mmol/L Normal 7-20 [facility] Comment on above: Performed By: #### L [id number] ####[facility] ([facility]ER)[address] [place] [address] Calcium [Mass/Vol] 9.6 mg/dL Normal 8.6-10.3 [facility] Comment on above: Performed By: #### L [id number] ####[facility] ([facility])[address] [place] [address] Chloride [Moles/Vol] 101 mmol/L Normal 98-[address] [facility] Comment on above: Performed By: #### L [id number] ####[facility] ([facility])[address] [place] [address] CO2 [Moles/Vol] 21 mmol/L Normal 21-31 [facility] Comment on above: Performed By: #### L [id number] ####[facility] ([facility])[address] [place] [address] Creatinine [Mass/Vol] 1.78 mg/dL High 0.70-1.30 [facility] Comment on above: Performed By: #### L [id number] ####[facility] ([facility])[address] [place] [address] GLOMERULAR FILTRATION RATE ML/MIN/1.73 SQ M.PREDICTED 40.5 mL/min/1.73m*2 Low >60.0 [facility] Comment on above: Result Comment: [facility]???s estimated glomerular filtration rate (eGFR) will no longer include consideration of race in its calculation. The National Kidney Foundation???s eGFR Task Force developed new recommendations for the estimation of the glomerular filtration rate in the [place] They recommend immediate implementation of the new equation refit without the race variable in all laboratories because the calculation does not include race. In addition to not including race in the calculation and reporting, it included diversity in its development, and has acceptable performance characteristics and potential consequences that do not disproportionately affect any one group of individuals. Performed By: #### L [id number] ####[facility] (BEAKER)[address] [place] [address] Glucose [Mass/Vol] 194 mg/dL High 70-100 [facility] Comment on above: Performed By: #### L [id number] ####[facility] ([facility])[address] [place] [address] Potassium [Moles/Vol] 4.3 mmol/L Normal 3.5-5.1 [facility] Comment on above: Performed By: #### L [id number] ####[facility] ([facility])[address] [place] [address] Sodium [Moles/Vol] 130 mmol/L Low 136-145 [facility] Comment on above: Performed By: #### L [id number] ####[facility] ([facility])[address] [place] [address] Urea nitrogen [Mass/Vol] 47 mg/dL High 7-25 [facility] Comment on above: Performed By: #### L [id number] ####[facility] ([facility])[address] [place] [address] UREA NITROGEN/CREATININE (MA SS RATIO) IN SER/PLAS 26.4 Normal [facility] Comment on above: Performed By: #### L [id number] ####[facility] ([facility])[address] [place] [address] CBCon 12-03-2022 Erythrocyte distribution wid th (RBC) [Ratio] 14.9 % Normal 11.5-15.0 [facility] Comment on above: Performed By: #### L [id number] ####[facility] ([facility])[address] [place] [address] ERYTHROCYTE MEAN CORPUSCULAR HEMOGLOBIN CONCENTRATION (G/DL) BY AUTOMATED 32.9 g/dL Normal 32.0-35.0 [facility] Comment on above: Performed By: #### L [id number] ####[facility] (BEAKER)[address] [place] [address] Hematocrit (Bld) [Volume fraction] 41.0 % Normal 39.0-55.0 [facility] Comment on above: Performed By: #### L [id number] ####[facility] ([facility])[address] [address] Hemoglobin (Bld) [Mass/Vol] 13.5 g/dL Normal 13.0-17. 0 [facility] Comment on above: Performed By: #### L [id number] ####[facility] ([facility])[address] [address] MCH (RBC) [Entitic mass] 29.3 pg Normal 27.0-33.0 [facility] Comment on above: Performed By: #### L [id number] ####[facility] ([facility])[address] [place], [place] [address] MCV (RBC) [Entitic vol] 89.1 fL Normal 82.0-98.0 [facility] Comment on above: Performed By: #### L [id number] ####[facility] ([facility])[address] [place], [place] [address] PLATELETS (10*3/UL) IN BLOOD AUTOMATED COUNT 134 10*3/uL Low 150-400 [facility] Comment on above: Performed By: #### L [id number] ####[facility] ([facility])[address] [place] [address] RBC (Bld) [#/Vol] 4.60 10*6/uL Normal 4.20-5.70 [facility] Comment on above: Performed By: #### L [id number] ####[facility] ([facility])[address] [place], [place] [address] WBC (Bld) [#/Vol] 10.62 10*3/uL High 4.00-10.[address] [facility] Comment on above: Performed By: #### L [id number] ####[facility] ([facility])[address] [place] [address] CONSULTon 12-03-2022 CONSULT Normal [facility] HPon 12-03-2022 HP Normal [facility] HP Normal [facility] NURSNOTEon 12-03-2022 NURSNOTE Report called to Braden valdivia RN 3AB Amy Valiente [employer] REFEREE [facility] POCT GLUCOSE METER UNSOLICIT ED RESULTSon 12-03-2022 Glucose [Mass/Vol] 147 mg/dL High 70-105 [facility] Comment on above: Order Comment: Waive d Testing in the ED is performed under the ED CLIA certificate #[id number]. Result Comment: [email or web address] Performed By: #### L [id number] ####[facility] ([facility])[address] [facility] [place] [address] Glucose [Mass/Vol] 148 mg/dL High 70-105 [facility] Comment on above: Order Comment: Waive d Testing in the ED is performed under the ED CLIA certificate #[id number]. Result Comment: [email or web address] Performed By: #### L [id number] ####[facility] ([employer])[address] [facility] [place] [address] Glucose [Mass/Vol] 165 mg/dL High 70-105 [facility] Comment on above: Order Comment: Waive d Testing in the ED is performed under the ED CLIA certificate #[id number]. Result Comment: [email or web address] Performed By: #### L [id number] ####[facility] ([employer])[address] [facility] [place] [address] Glucose [Mass/Vol] 158 mg/dL High 70-105 [facility] Comment on above: Order Comment: Waive d Testing in the ED is performed under the ED CLIA certificate #[id number]. Result Comment: [email or web address] Performed By: #### L [id number] ####[facility] ([employer])[address] [facility] [place] [address] TYPE AND SCREENon 12-03-2022 AB SCREEN Negative [facility] Comment on above: Performed By: #### L [id number] ####[facility], ABO group Nom (Bld) AB Normal [facility] Comment on above: Performed By: #### L [id number] ####[facility], RH TYPE IN BLOOD Positive Normal [facility] Comment on above: Performed By: #### L [id number] ####[facility], 30on 12-02-2022 30 Normal [facility] BASIC METABOLIC PANELon 11-12 Anion gap [Moles/Vol] 11 mmol/L Normal 7-20 [facility] Comment on above: Performed By: #### L [id number] ####[facility] ([facility])[address] AVPe[employer] Environmental ConsultingROTHMAN [place] [address] Calcium [Mass/Vol] 9.6 mg/dL Normal 8.6-10.3 [facility] Comment on above: Performed By: #### L [id number] ####[facility] ([facility])[address] [employer] - Maps With LifeROTH[place] [address] Chloride [Moles/Vol] 103 mmol/L Normal 98-[address] [facility] Comment on above: Performed By: #### L [id number] ####[facility] ([facility])[address] [place] [address] CO2 [Moles/Vol] 22 mmol/L Normal 21-31 [facility] Comment on above: Performed By: #### L [id number] ####[facility] ([facility])[address] [employer]be[employer] - [employer] [facility] LifeROTH[facility] [place] [address] Creatinine [Mass/Vol] 1.73 mg/dL High 0.70-1.30 [facility] Comment on above: Performed By: #### L [id number] ####[facility] ([facility])[address] [employer]be[employer] - Maps With LifeROTHMAN [place] [address] GLOMERULAR FILTRATION RATE ML/MIN/1.73 SQ M.PREDICTED 41.9 mL/min/1.73m*2 Low >60.0 [facility] Comment on above: Result Comment: [facility]???s estimated glomerular filtration rate (eGFR) will no longer include consideration of race in its calculation. The National Kidney Foundation???s eGFR Task Force developed new recommendations for the estimation of the glomerular filtration rate in the [place] They recommend immediate implementation of the new equation refit without the race variable in all laboratories because the calculation does not include race. In addition to not including race in the calculation and reporting, it included diversity in its development, and has acceptable performance characteristics and potential consequences that do not disproportionately affect any one group of individuals. Performed By: #### L [id number] ####[facility] ([facility])[address] [place] [address] Glucose [Mass/Vol] 168 mg/dL High 70-100 [facility] Comment on above: Performed By: #### L [id number] ####[facility] ([facility])[address] [place] [address] Potassium [Moles/Vol] 4.3 mmol/L Normal 3.5-5.1 [facility] Comment on above: Performed By: #### L [id number] ####[facility] ([facility])[address] [place] [address] Sodium [Moles/Vol] 132 mmol/L Low 136-145 [facility] Comment on above: Performed By: #### L [id number] ####[facility] ([facility])[address] [place] [address] Urea nitrogen [Mass/Vol] 42 mg/dL High 7-25 [facility] Comment on above: Performed By: #### L [id number] ####[facility] ([facility])[address] [place] [address] UREA NITROGEN/CREATININE (MA SS RATIO) IN SER/PLAS 24.3 Normal [facility] Comment on above: Performed By: #### L [id number] ####[facility] ([facility])[address] [place] [address] CBCon 12-02-2022 Erythrocyte distribution wid th (RBC) [Ratio] 15.0 % Normal 11.5-15.0 [facility] Comment on above: Performed By: #### L [id number] ####[facility] (BEAKER)[address] [place] [address] ERYTHROCYTE MEAN CORPUSCULAR HEMOGLOBIN CONCENTRATION (G/DL) BY AUTOMATED 32.8 g/dL Normal 32.0-35.0 [facility] Comment on above: Performed By: #### L [id number] ####[facility] ([facility])[address] [place] [address] Hematocrit (Bld) [Volume fraction] 40.0 % Normal 39.0-55.0 [facility] Comment on above: Performed By: #### L [id number] ####[facility] ([facility])[address] [place] [address] Hemoglobin (Bld) [Mass/Vol] 13.1 g/dL Normal 13.0-17. 0 [facility] Comment on above: Result Comment: Resu lts checked Performed By: #### L [id number] ####[facility] ([facility])[address] [place] [address] MCH (RBC) [Entitic mass] 29.0 pg Normal 27.0-33.0 [facility] Comment on above: Performed By: #### L [id number] ####[facility] (BEAKER)[address] [place] [address] MCV (RBC) [Entitic vol] 88.7 fL Normal 82.0-98.0 [facility] Comment on above: Performed By: #### L [id number] ####[facility] ([facility])[address] [place] [address] PLATELETS (10*3/UL) IN BLOOD AUTOMATED COUNT 129 10*3/uL Low 150-400 [facility] Comment on above: Performed By: #### L [id number] ####[facility] (BEAKER)[address] [place] [address] RBC (Bld) [#/Vol] 4.51 10*6/uL Normal 4.20-5.70 [facility] Comment on above: Performed By: #### L [id number] ####[facility] ([facility])[address] [place] [address] WBC (Bld) [#/Vol] 13.62 10*3/uL High 4.00-10.60 [facility] Comment on above: Performed By: #### L [id number] ####[facility] ([facility])[address] [place] [address] POCT GLUCOSE METER UNSOLICIT ED RESULTSon 12-02-2022 Glucose [Mass/Vol] 208 mg/dL High 70-105 [facility] Comment on above: Order Comment: Waive d Testing in the ED is performed under the ED CLIA certificate #[id number]. Result Comment: [email or web address] Performed By: #### L [id number] ####[facility] ([facility])[address] [place] [address] Glucose [Mass/Vol] 224 mg/dL High 70-105 [facility] Comment on above: Order Comment: Waive d Testing in the ED is performed under the ED CLIA certificate #[id number]. Result Comment: [email or web address] Performed By: #### L [id number] ####[facility] ([facility])[address] [place] [address] Glucose [Mass/Vol] 173 mg/dL High 70-105 [facility] Comment on above: Order Comment: Waive d Testing in the ED is performed under the ED CLIA certificate #[id number]. Result Comment: [email or web address] Performed By: #### L [id number] ####[facility] ([facility])[address] [place] [address] Glucose [Mass/Vol] 135 mg/dL High 70-105 [facility] Comment on above: Order Comment: Waive d Testing in the ED is performed under the ED CLIA certificate #[id number]. Result Comment: [email or web address] Performed By: #### L [id number] ####[facility] (BEAKER)[address] [place] [address] 30on 12-01-2022 30 Normal [facility] APTTon 12-01-2022 ACTIVATED PARTIAL THROMBOPLASTIN TIME IN PPP BY COAGULATION ASSAY 28.0 Seconds Normal 25.0-35.0 [facility] Comment on above: Result Comment: Clin ical significance of the APTT is questionable in the presence of heparin. Performed By: #### L [id number] ####[facility] ([facility])[address] [place] [address] BASIC METABOLIC PANELon 11-12 Anion gap [Moles/Vol] 16 mmol/L Normal 7-20 [facility] Comment on above: Performed By: #### L [id number] ####[facility] ([facility])[address] [place] [address] Calcium [Mass/Vol] 10.4 mg/dL High 8.6-10.3 [facility] Comment on above: Performed By: #### L [id number] ####[facility] ([facility])[address] [place] [address] Chloride [Moles/Vol] 101 mmol/L Normal 98-[address] [facility] Comment on above: Performed By: #### L [id number] ####[facility] ([facility])[address] [place] [address] CO2 [Moles/Vol] 21 mmol/L Normal 21-31 [facility] Comment on above: Performed By: #### L [id number] ####[facility] ([facility])[address] [place] [address] Creatinine [Mass/Vol] 1.78 mg/dL High 0.70-1.30 [facility] Comment on above: Performed By: #### L [id number] ####[facility] ([facility])[address] [place] [address] GLOMERULAR FILTRATION RATE ML/MIN/1.73 SQ M.PREDICTED 40.5 mL/min/1.73m*2 Low >60.0 [facility] Comment on above: Result Comment: [facility]???s estimated glomerular filtration rate (eGFR) will no longer include consideration of race in its calculation. The National Kidney Foundation???s eGFR Task Force developed new recommendations for the estimation of the glomerular filtration rate in the [place] They recommend immediate implementation of the new equation refit without the race variable in all laboratories because the calculation does not include race. In addition to not including race in the calculation and reporting, it included diversity in its development, and has acceptable performance characteristics and potential consequences that do not disproportionately affect any one group of individuals. Performed By: #### L [id number] ####[facility] ([facility])[address] [place] [address] Glucose [Mass/Vol] 260 mg/dL High 70-100 [facility] Comment on above: Performed By: #### L [id number] ####[facility] ([facility])[address] [place] [address] Potassium [Moles/Vol] 5.0 mmol/L Normal 3.5-5.1 [facility] Comment on above: Performed By: #### L [id number] ####[facility] ([facility])[address] [place] [address] Sodium [Moles/Vol] 133 mmol/L Low 136-145 [facility] Comment on above: Performed By: #### L [id number] ####[facility] ([facility])[address] [place] [address] Urea nitrogen [Mass/Vol] 32 mg/dL High 7-25 [facility] Comment on above: Performed By: #### L [id number] ####[facility] (BEAKER)[address] [address] UREA NITROGEN/CREATININE (MA SS RATIO) IN SER/PLAS 18.0 Normal [facility] Comment on above: Performed By: #### L [id number] ####[facility] ([facility])[address] [place] [address] CBCon 12-01-2022 Erythrocyte distribution wid th (RBC) [Ratio] 14.7 % Normal 11.5-15.0 [facility] Comment on above: Performed By: #### L [id number] ####[facility] ([facility])[address] [place] [address] ERYTHROCYTE MEAN CORPUSCULAR HEMOGLOBIN CONCENTRATION (G/DL) BY AUTOMATED 33.0 g/dL Normal 32.0-35.0 [facility] Comment on above: Performed By: #### L [id number] ####[facility] ([facility])[address] [place] [address] Hematocrit (Bld) [Volume fraction] 46.6 % Normal 39.0-55.0 [facility] Comment on above: Performed By: #### L [id number] ####[facility] ([facility])[address] [address] Hemoglobin (Bld) [Mass/Vol] 15.4 g/dL Normal 13.0-17. 0 [facility] Comment on above: Performed By: #### L [id number] ####[facility] ([facility])[address] [place] [address] MCH (RBC) [Entitic mass] 29.3 pg Normal 27.0-33.0 [facility] Comment on above: Performed By: #### L [id number] ####[facility])[address] [address] MCV (RBC) [Entitic vol] 88.8 fL Normal 82.0-98.0 [facility] Comment on above: Performed By: #### L [id number] ####[facility] ([facility])[address] [place] [address] PLATELETS (10*3/UL) IN BLOOD AUTOMATED COUNT 181 10*3/uL Normal 150-400 [facility] Comment on above: Performed By: #### L [id number] ####[facility] (BEAKER)[address] [place] [address] RBC (Bld) [#/Vol] 5.25 10*6/uL Normal 4.20-5.70 [facility] Comment on above: Performed By: #### L [id number] ####[facility] ([facility])[address] [place] [address] WBC (Bld) [#/Vol] 23.51 10*3/uL High 4.00-10.[address] [facility] Comment on above: Performed By: #### L [id number] ####[facility] ([facility])[address] [place] [address] NURSNOTEon 12-01-2022 NURSNOTE Normal [facility] POCT GLUCOSE METER UNSOLICIT ED RESULTSon 12-01-2022 Glucose [Mass/Vol] 204 mg/dL High 70-105 [facility] Comment on above: Order Comment: Waive d Testing in the ED is performed under the ED CLIA certificate #[id number]. Result Comment: [email or web address] Performed By: #### L [id number] ####[facility] ([facility])[address] [place] [address] Glucose [Mass/Vol] 248 mg/dL High 70-105 [facility] Comment on above: Order Comment: Waive d Testing in the ED is performed under the ED CLIA certificate #[id number]. Result Comment: [email or web address] [email or web address] Performed By: #### L [id number] ####[facility] ([facility])[address] [place] [address] Glucose [Mass/Vol] 270 mg/dL High 70-105 [facility] Comment on above: Order Comment: Waive d Testing in the ED is performed under the ED CLIA certificate #[id number]. Result Comment: [email or web address] Performed By: #### L [id number] ####[facility] ([facility])[address] [place] [address] PROTIME-INRon 12-01-2022 INR IN PPP BY COAGULATION ASSAY 1.21 High 0.90 -1.10 [facility] Comment on above: Result Comment: ACCCP RECOMMENDED INR FO R WARFARIN THERAPY ------CONDITION INRPROPHYLAXIS OF VENOUS THROMBOSIS 2-3(HIGH-RISK SURGERY)TREATMENT OF VENOUS THROMBOSIS 2-3TREATMENT OF PULMONARY EMBOLISM 2-3PREVENTION OF SYSTEMIC EMBOLISM: 2-3 ACUTE MYOCARDIAL INFARCTION TISSUE HEART VALVES VALVULAR HEART DISEASE ATRIAL FIBRILLATION RECURRENT SYSTEMIC EMBOLISMMECHANICAL HEART VALVE 2.5-3.5 FROM: ORAL ANTICOAGULANTS. MECHANISM OF ACTION, CLINICAL EFFECTIVENESS, AND OPTIMAL THERAPEUTIC RANGE. CHEST 1995;108:231S-246S. Performed By: #### L [id number] ####[facility] ([facility])[address] [place] [address] PROTHROMBIN TIME (PT) IN PPP BY COAGULATION ASSAY 15.3 Seconds High 12.3-14.8 [facility] Comment on above: Performed By: #### L [id number] ####[facility] ([employer])[address] [employer] [facility] [facility] [place] [address] 30on 11-30-2022 30 Normal [facility] 30 Normal [facility] BASIC METABOLIC PANELon 10-2 Anion gap [Moles/Vol] 10 mmol/L Normal 7-20 [facility] Comment on above: Performed By: #### L [id number] ####[facility] ([employer])[address] [employer] [facility] [place] [address] Calcium [Mass/Vol] 7.1 mg/dL Low 8.6-10.3 [facility] Comment on above: Performed By: #### L [id number] ####[facility] ([employer])[address] [facility] [place] [address] Chloride [Moles/Vol] 110 mmol/L High 98-[address] [facility] Comment on above: Performed By: #### L [id number] ####[facility] ([facility] [place] [address] CO2 [Moles/Vol] 22 mmol/L Normal 21-31 [facility] Comment on above: Performed By: #### L [id number] ####[facility] ([facility])[address] [place] [address] Creatinine [Mass/Vol] 1.25 mg/dL Normal 0.70-1.30 [facility] Comment on above: Performed By: #### L [id number] ####[facility] ([facility])[address] [place] [address] GLOMERULAR FILTRATION RATE ML/MIN/1.73 SQ M.PREDICTED 61.9 mL/min/1.73m*2 Normal >60.0 [facility] Comment on above: Result Comment: [facility]???s estimated glomerular filtration rate (eGFR) will no longer include consideration of race in its calculation. The National Kidney Foundation???s eGFR Task Force developed new recommendations for the estimation of the glomerular filtration rate in the [place] They recommend immediate implementation of the new equation refit without the race variable in all laboratories because the calculation does not include race. In addition to not including race in the calculation and reporting, it included diversity in its development, and has acceptable performance characteristics and potential consequences that do not disproportionately affect any one group of individuals. Performed By: #### L [id number] ####[facility] ([facility])[address] [place] [address] Glucose [Mass/Vol] 211 mg/dL High 70-100 [facility] Comment on above: Performed By: #### L [id number] ####[facility] ([facility])[address] [place] [address] Potassium [Moles/Vol] 3.6 mmol/L Normal 3.5-5.1 [facility] Comment on above: Performed By: #### L [id number] ####[facility] ([facility])[address] [place] [address] Sodium [Moles/Vol] 138 mmol/L Normal 136-145 [facility] Comment on above: Performed By: #### L [id number] ####[facility] ([facility])[address] [place] [address] Urea nitrogen [Mass/Vol] 17 mg/dL Normal 7-25 [facility] Comment on above: Performed By: #### L [id number] ####[facility] ([facility])[address] [place] [address] UREA NITROGEN/CREATININE (MA SS RATIO) IN SER/PLAS 13.6 Normal [facility] Comment on above: Performed By: #### L [id number] ####[facility] ([facility])[address] [place] [address] Anion gap [Moles/Vol] 10 mmol/L Normal 7-20 [facility] Comment on above: Performed By: #### L [id number] ####[facility] ([facility])[address] [place] [address] Calcium [Mass/Vol] 9.5 mg/dL Normal 8.6-10.3 [facility] Comment on above: Performed By: #### L [id number] ####[facility] ([facility])[address] [place] [address] Chloride [Moles/Vol] 102 mmol/L Normal 98-[address] [facility] Comment on above: Performed By: #### L [id number] ####[facility] ([facility])[address] [place] [address] CO2 [Moles/Vol] 27 mmol/L Normal 21-31 [facility] Comment on above: Performed By: #### L [id number] ####[facility] ([facility])[address] [place] [address] Creatinine [Mass/Vol] 1.39 mg/dL High 0.70-1.30 [facility] Comment on above: Performed By: #### L [id number] ####[facility] ([facility])[address] [place] [address] GLOMERULAR FILTRATION RATE ML/MIN/1.73 SQ M.PREDICTED 54.5 mL/min/1.73m*2 Low >60.0 [facility] Comment on above: Result Comment: [facility]???s estimated glomerular filtration rate (eGFR) will no longer include consideration of race in its calculation. The National Kidney Foundation???s eGFR Task Force developed new recommendations for the estimation of the glomerular filtration rate in the [place] They recommend immediate implementation of the new equation refit without the race variable in all laboratories because the calculation does not include race. In addition to not including race in the calculation and reporting, it included diversity in its development, and has acceptable performance characteristics and potential consequences that do not disproportionately affect any one group of individuals. Performed By: #### L [id number] ####[facility] ([facility])[address] [place] [address] Glucose [Mass/Vol] 171 mg/dL High 70-100 [facility] Comment on above: Performed By: #### L [id number] ####[facility] ([facility])[address] [place] [address] Potassium [Moles/Vol] 4.0 mmol/L Normal 3.5-5.1 [facility] Comment on above: Performed By: #### L [id number] ####[facility] ([facility])[address] [place] [address] Sodium [Moles/Vol] 135 mmol/L Low 136-145 [facility] Comment on above: Performed By: #### L [id number] ####[facility] ([facility])[address] [place] [address] Urea nitrogen [Mass/Vol] 20 mg/dL Normal 7-25 [facility] Comment on above: Performed By: #### L [id number] ####[facility] ([facility])[address] [place] [address] UREA NITROGEN/CREATININE (MA SS RATIO) IN SER/PLAS 14.4 Normal [facility] Comment on above: Performed By: #### L [id number] ####[facility] ([facility])[address] [place] [address] CBCon 11-30-2022 Erythrocyte distribution wid th (RBC) [Ratio] 14.2 % Normal 11.5-15.0 [facility] Comment on above: Performed By: #### L [id number] ####[facility] ([facility])[address] [place] [address] ERYTHROCYTE MEAN CORPUSCULAR HEMOGLOBIN CONCENTRATION (G/DL) BY AUTOMATED 33.3 g/dL Normal 32.0-35.0 [facility] Comment on above: Performed By: #### L [id number] ####[facility] ([facility])[address] [place] [address] Hematocrit (Bld) [Volume fraction] 41.7 % Normal 39.0-55.0 [facility] Comment on above: Performed By: #### L [id number] ####[facility] ([facility])[address] [place] [address] Hemoglobin (Bld) [Mass/Vol] 13.9 g/dL Normal 13.0-17. 0 [facility] Comment on above: Performed By: #### L [id number] ####[facility] ([facility])[address] [place] [address] MCH (RBC) [Entitic mass] 29.5 pg Normal 27.0-33.0 [facility] Comment on above: Performed By: #### L [id number] ####[facility] ([facility])[address] [place] [address] MCV (RBC) [Entitic vol] 88.5 fL Normal 82.0-98.0 [facility] Comment on above: Performed By: #### L [id number] ####[facility] ([facility])[address] [place] [address] PLATELETS (10*3/UL) IN BLOOD AUTOMATED COUNT 183 10*3/uL Normal 150-400 [facility] Comment on above: Performed By: #### L [id number] ####[facility] ([facility])[address] [place] [address] RBC (Bld) [#/Vol] 4.71 10*6/uL Normal 4.20-5.70 [facility] Comment on above: Performed By: #### L [id number] ####[facility] ([facility])[address] [place] [address] WBC (Bld) [#/Vol] 8.24 10*3/uL Normal 4.00-10.60 [facility] Comment on above: Performed By: #### L [id number] ####[facility] ([facility])[address] [place] [address] CBC WITH AUTO DIFFERENTIALon 11-30-2022 Basophils (Bld) [#/Vol] 0.02 10*3/uL Normal 0.00-0.20 [facility] Comment on above: Performed By: #### L [id number] ####[facility] ([facility])[address] [place] [address] Basophils/100 WBC (Bld) 0.2 % Normal 0.0-1.0 [facility] Comment on above: Performed By: #### L [id number] ####[facility] ([facility])[address] [place] [address] Eosinophils (Bld) [#/Vol] 0.11 10*3/uL Normal 0.00-0.5 0 [facility] Comment on above: Performed By: #### L [id number] ####[facility] ([facility])[address] [place] [address] Eosinophils/100 WBC (Bld) 1.2 % Normal 0.0-6.0 [facility] Comment on above: Performed By: #### L [id number] ####[facility] ([facility])[address] [place] [address] Erythrocyte distribution wid th (RBC) [Ratio] 14.5 % Normal 11.5-15.0 [facility] Comment on above: Performed By: #### L [id number] ####[facility] ([facility])[address] [place] [address] ERYTHROCYTE MEAN CORPUSCULAR HEMOGLOBIN CONCENTRATION (G/DL) BY AUTOMATED 33.1 g/dL Normal 32.0-35.0 [facility] Comment on above: Performed By: #### L [id number] ####[facility] ([facility])[address] [place] [address] Hematocrit (Bld) [Volume fraction] 37.2 % Low 39.0-55.0 [facility] Comment on above: Performed By: #### L [id number] ####[facility] ([facility])[address] [place] [address] Hemoglobin (Bld) [Mass/Vol] 12.3 g/dL Low 13.0-17. 0 [facility] Comment on above: Performed By: #### L [id number] ####[facility] ([facility])[address] [place] [address] Immature granulocytes (Bld) [#/Vol] 0.06 10*3/uL Normal 0.00-0.20 [facility] Comment on above: Performed By: #### L [id number] ####[facility] ([facility])[address] [place] [address] Immature granulocytes/100 WBC (Bld) 0.6 % Normal 0.0-1.0 [facility] Comment on above: Performed By: #### L [id number] ####[facility] ([facility])[address] [place] [address] Lymphocytes (Bld) [#/Vol] 0.97 10*3/uL Low 1.20-4.0 0 [facility] Comment on above: Performed By: #### L [id number] ####[facility] ([facility])[address] [place] [address] Lymphocytes/100 WBC (Bld) 10.3 % Low 20.0-45.0 [facility] Comment on above: Performed By: #### L [id number] ####[facility] ([facility]ER)[address] [place] [address] MCH (RBC) [Entitic mass] 29.5 pg Normal 27.0-33.0 [facility] Comment on above: Performed By: #### L [id number] ####[facility] ([facility])[address] [place] [address] MCV (RBC) [Entitic vol] 89.2 fL Normal 82.0-98.0 [facility] Comment on above: Performed By: #### L [id number] ####[facility] ([facility])[address] [place] [address] Monocytes (Bld) [#/Vol] 0.78 10*3/uL Normal 0.10-1.00 [facility] Comment on above: Performed By: #### L [id number] ####[facility] ([facility])[address] [place] [address] Monocytes/100 WBC (Bld) 8.3 % Normal 5.0-12.0 [facility] Comment on above: Performed By: #### L [id number] ####[facility] ([facility])[address] [place] [address] Neutrophils (Bld) [#/Vol] 7.48 10*3/uL Normal 1.60-7.6 0 [facility] Comment on above: Performed By: #### L [id number] ####[facility] ([facility])[address] [place] [address] Neutrophils/100 WBC (Bld) 79.4 % High 40.0-72.0 [facility] Comment on above: Performed By: #### L [id number] ####[facility] ([facility])[address] [place] [address] NRBC (PER 100 WBCS) BY AUTOM ATED COUNT 0.0 % Normal 0 [facility] Comment on above: Performed By: #### L [id number] ####[facility] ([facility])[address] [place] [address] PLATELETS (10*3/UL) IN BLOOD AUTOMATED COUNT 172 10*3/uL Normal 150-400 [facility] Comment on above: Performed By: #### L [id number] ####[facility] ([facility])[address] [place] [address] RBC (Bld) [#/Vol] 4.17 10*6/uL Low 4.20-5.70 [facility] Comment on above: Performed By: #### L [id number] ####[facility] ([facility])[address] [facility] [address] WBC (Bld) [#/Vol] 9.42 10*3/uL Normal 4.00-10.60 [facility] Comment on above: Performed By: #### L [id number] ####[facility] ([facility])[address] [place] [address] CTA ABDOMEN PELVIS W AND/OR WO IV CONTRASTon 11-30-2022 CTA ABDOMEN PELVIS W AND/OR WO IV CONTRAST Normal [facility] CTA CHEST W AND/OR WO IV CON TRASTon 11-30-2022 CTA CHEST W AND/OR WO IV CONTRAST Normal [facility] DSon 11-30-2022 DS This report has been cancelled. Normal [facility] NURSNOTEon 11-30-2022 NURSNOTE Normal [facility] NURSNOTE Normal [facility] POCT GLUCOSE METER UNSOLICIT ED RESULTSon 11-30-2022 Glucose [Mass/Vol] 228 mg/dL High 70-105 [facility] Comment on above: Order Comment: Waive d Testing in the ED is performed under the ED CLIA certificate #[id number]. Result Comment: [email or web address] Performed By: #### L [id number] ####[facility] ([facility])[address] [facility] [place] [address] Glucose [Mass/Vol] 228 mg/dL High 70-105 [facility] Comment on above: Order Comment: Waive d Testing in the ED is performed under the ED CLIA certificate #[id number]. Result Comment: [email or web address] Performed By: #### L [id number] ####[facility] ([facility])[address] [place] [address] Glucose [Mass/Vol] 219 mg/dL High 70-105 [facility] Comment on above: Order Comment: Waive d Testing in the ED is performed under the ED CLIA certificate #[id number]. Result Comment: [email or web address] Performed By: #### L [id number] ####[facility] ([facility])[address] [place] [address] Glucose [Mass/Vol] 186 mg/dL High 70-105 [facility] Comment on above: Order Comment: Waive d Testing in the ED is performed under the ED CLIA certificate #[id number]. Result Comment: [email or web address] Performed By: #### L [id number] ####[facility] ([facility])[address] [place] [address] Glucose [Mass/Vol] 217 mg/dL High 70-105 [facility] Comment on above: Order Comment: Waive d Testing in the ED is performed under the ED CLIA certificate #[id number]. Result Comment: [email or web address] Performed By: #### L [id number] ####[facility] ([facility])[address] [place] [address] Glucose [Mass/Vol] 175 mg/dL High 70-105 [facility] Comment on above: Order Comment: Waive d Testing in the ED is performed under the ED CLIA certificate #[id number]. Result Comment: [email or web address] Performed By: #### L [id number] ####[facility] ([facility])[address] [place] [address] TROPONIN Ion 11-30-2022 Troponin I.cardiac [Mass/Vol] 0.05 ng/mL High 0.00-0 .04 [facility] Comment on above: Performed By: #### L [id number] ####[facility] ([facility])[address] [place] [address] 30on 11-29-2022 30 Normal [facility] 30 Normal [facility] 30 Normal [facility] ANESon 11-29-2022 ANES [facility] ANTI-XA (HEPARIN LEVEL)on HEPARIN UNFRACTIONATED (U/ML ) IN PPP BY CHROMOGENIC METHOD 0.42 IU/mL Normal 0.3-0.7 [facility] Comment on above: Result Comment: Ayden roxaban and Apixaban will interfere with the anti Xa assay used to monitor UFH and LMWH. Performed By: #### L [id number] ####[facility] ([facility])[address] [place] [address] HEPARIN UNFRACTIONATED (U/ML ) IN PPP BY CHROMOGENIC METHOD 0.74 IU/mL High 0.3-0.7 [facility] Comment on above: Result Comment: Maricruz roxaban and Apixaban will interfere with the anti Xa assay used to monitor UFH and LMWH. Performed By: #### L [id number] ####[facility] (BEAKER)[address] [facility] [address] BASIC METABOLIC PANELon 11-11 Anion gap [Moles/Vol] 9 mmol/L Normal 7-20 [facility] Comment on above: Performed By: #### L [id number] ####[facility] ([facility]ER)[address] [facility] [address] Calcium [Mass/Vol] 9.5 mg/dL Normal 8.6-10.3 [facility] Comment on above: Performed By: #### L [id number] ####[facility] ([facility]ER)[address] [facility] [address] Chloride [Moles/Vol] 103 mmol/L Normal 98-[address] [facility] Comment on above: Performed By: #### L [id number] ####[facility] ([facility])[address] [facility] [place] [address] CO2 [Moles/Vol] 28 mmol/L Normal 21-31 [facility] Comment on above: Performed By: #### L [id number] ####[facility] ([facility])[address] [place] [address] Creatinine [Mass/Vol] 1.44 mg/dL High 0.70-1.30 [facility] Comment on above: Performed By: #### L [id number] ####[facility] ([facility])[address] [place] [address] GLOMERULAR FILTRATION RATE ML/MIN/1.73 SQ M.PREDICTED 52.3 mL/min/1.73m*2 Low >60.0 [facility] Comment on above: Result Comment: [facility]???s estimated glomerular filtration rate (eGFR) will no longer include consideration of race in its calculation. The National Kidney Foundation???s eGFR Task Force developed new recommendations for the estimation of the glomerular filtration rate in the [place] They recommend immediate implementation of the new equation refit without the race variable in all laboratories because the calculation does not include race. In addition to not including race in the calculation and reporting, it included diversity in its development, and has acceptable performance characteristics and potential consequences that do not disproportionately affect any one group of individuals. Performed By: #### L [id number] ####[facility] ([facility])[address] [place] [address] Glucose [Mass/Vol] 178 mg/dL High 70-100 [facility] Comment on above: Performed By: #### L [id number] ####[facility] ([facility])[address] [place] [address] Potassium [Moles/Vol] 4.1 mmol/L Normal 3.5-5.1 [facility] Comment on above: Performed By: #### L [id number] ####[facility] ([facility])[address] [place] [address] Sodium [Moles/Vol] 136 mmol/L Normal 136-145 [facility] Comment on above: Performed By: #### L [id number] ####[facility] ([facility])[address] [place] [address] Urea nitrogen [Mass/Vol] 17 mg/dL Normal 7-25 [facility] Comment on above: Performed By: #### L [id number] ####[facility] ([facility] [place] [address] UREA NITROGEN/CREATININE (MA SS RATIO) IN SER/PLAS 11.8 Normal [facility] Comment on above: Performed By: #### L [id number] ####[facility] ([facility])[address] [place] [address] CBCon 11-29-2022 Erythrocyte distribution wid th (RBC) [Ratio] 14.4 % Normal 11.5-15.0 [facility] Comment on above: Performed By: #### L [id number] ####[facility] ([facility])[address] [place] [address] ERYTHROCYTE MEAN CORPUSCULAR HEMOGLOBIN CONCENTRATION (G/DL) BY AUTOMATED 34.0 g/dL Normal 32.0-35.0 [facility] Comment on above: Performed By: #### L [id number] ####[facility] ([facility])[address] [place] [address] Hematocrit (Bld) [Volume fraction] 41.5 % Normal 39.0-55.0 [facility] Comment on above: Performed By: #### L [id number] ####[facility] ([facility] [place] [address] Hemoglobin (Bld) [Mass/Vol] 14.1 g/dL Normal 13.0-17. 0 [facility] Comment on above: Performed By: #### L [id number] ####[facility] ([facility])[address] [place] [address] MCH (RBC) [Entitic mass] 29.6 pg Normal 27.0-33.0 [facility] Comment on above: Performed By: #### L [id number] ####[facility] ([facility]ER)[address] [place] [address] MCV (RBC) [Entitic vol] 87.2 fL Normal 82.0-98.0 [facility] Comment on above: Performed By: #### L [id number] ####[facility] ([facility])[address] [place] [address] PLATELETS (10*3/UL) IN BLOOD AUTOMATED COUNT 180 10*3/uL Normal 150-400 [facility] Comment on above: Performed By: #### L [id number] ####[facility] ([facility])[address] [place] [address] RBC (Bld) [#/Vol] 4.76 10*6/uL Normal 4.20-5.70 [facility] Comment on above: Performed By: #### L [id number] ####[facility] [facility] ([facility])[address] [place] [address] WBC (Bld) [#/Vol] 6.10 10*3/uL Normal 4.00-10.60 [facility] Comment on above: Performed By: #### L [id number] ####[facility] ([facility])[address] [place] [address] CONSULTon 11-29-2022 CONSULT Normal [facility] HPon 11-29-2022 HP H&P reviewed. The riley lloyd was examined and there are no changes to the H&P. [facility] POCT GLUCOSE METER UNSOLICIT ED RESULTSon 11-29-2022 Glucose [Mass/Vol] 168 mg/dL High 70-105 [facility] Comment on above: Order Comment: Waive d Testing in the ED is performed under the ED CLIA certificate #[id number]. Result Comment: [email or web address] Performed By: #### L [id number] ####[facility] ([facility])[address] [place] [address] Glucose [Mass/Vol] 122 mg/dL High 70-105 [facility] Comment on above: Order Comment: Waive d Testing in the ED is performed under the ED CLIA certificate #[id number]. Result Comment: [email or web address] Performed By: #### L [id number] ####[facility] ([facility])[address] [facility] [place] [address] Glucose [Mass/Vol] 144 mg/dL High 70-105 [facility] Comment on above: Order Comment: Waive d Testing in the ED is performed under the ED CLIA certificate #[id number]. Result Comment: [email or web address] Performed By: #### L [id number] ####[facility] ([facility])[address] [facility] [place] [address] Glucose [Mass/Vol] 157 mg/dL High 70-105 [facility] Comment on above: Order Comment: Waive d Testing in the ED is performed under the ED CLIA certificate #[id number]. Result Comment: [email or web address] Performed By: #### L [id number] ####[facility] ([facility])[address] [facility] [place] [address] 30on 11-28-2022 30 [facility] 30 [facility] 30 [facility] ANTI-XA (HEPARIN LEVEL)on HEPARIN UNFRACTIONATED (U/ML ) IN PPP BY CHROMOGENIC METHOD 0.47 IU/mL Normal 0.3-0.7 [facility] Comment on above: Result Comment: Ayden roxaban and Apixaban will interfere with the anti Xa assay used to monitor UFH and LMWH. Performed By: #### L [id number] ####[facility] ([facility])[address] [facility] [address] HEPARIN UNFRACTIONATED (U/ML ) IN PPP BY CHROMOGENIC METHOD 0.40 IU/mL Normal 0.3-0.7 [facility] Comment on above: Result Comment: Maricruz roxaban and Apixaban will interfere with the anti Xa assay used to monitor UFH and LMWH. Performed By: #### L [id number] ####[facility] ([facility])[address] [place] [address] HEPARIN UNFRACTIONATED (U/ML ) IN PPP BY CHROMOGENIC METHOD 0.23 IU/mL Low 0.3-0.7 [facility] Comment on above: Result Comment: Ayden roxaban and Apixaban will interfere with the anti Xa assay used to monitor UFH and LMWH. Performed By: #### L [id number] ####[facility] ([facility])[address] [place] [address] HEPARIN UNFRACTIONATED (U/ML) IN PPP BY CHROMOGENIC METHOD 0.10 IU/mL Invalid Interpretation Code 0.3-0.7 [facility] Comment on above: Result Comment: Maricruz roxaban and Apixaban will interfere with the anti Xa assay used to monitor UFH and LMWH. Performed By: #### L [id number] ####[facility] ([facility])[address] [place] [address] BASIC METABOLIC PANEL 11-11 Anion gap [Moles/Vol] 10 mmol/L Normal 7-20 [facility] Comment on above: Performed By: #### L [id number] ####[facility] ([facility])[address] [place] [address] Calcium [Mass/Vol] 8.9 mg/dL Normal 8.6-10.3 [facility] Comment on above: Performed By: #### L [id number] ####[facility] ([facility])[address] [place] [address] Chloride [Moles/Vol] 105 mmol/L Normal 98-[address] [facility] Comment on above: Performed By: #### L [id number] ####[facility] ([facility])[address] [place] [address] CO2 [Moles/Vol] 25 mmol/L Normal 21-31 [facility] Comment on above: Performed By: #### L [id number] ####[facility] ([facility])[address] [place] [address] Creatinine [Mass/Vol] 1.22 mg/dL Normal 0.70-1.30 [facility] Comment on above: Performed By: #### L [id number] ####[facility] [place] [address] GLOMERULAR FILTRATION RATE ML/MIN/1.73 SQ M.PREDICTED 63.8 mL/min/1.73m*2 Normal >60.0 [facility] Comment on above: Result Comment: [facility]???s estimated glomerular filtration rate (eGFR) will no longer include consideration of race in its calculation. The National Kidney Foundation???s eGFR Task Force developed new recommendations for the estimation of the glomerular filtration rate in the [place] They recommend immediate implementation of the new equation refit without the race variable in all laboratories because the calculation does not include race. In addition to not including race in the calculation and reporting, it included diversity in its development, and has acceptable performance characteristics and potential consequences that do not disproportionately affect any one group of individuals. Performed By: #### L [id number] ####[facility] ([facility])[address] [place] [address] Glucose [Mass/Vol] 153 mg/dL High 70-100 [facility] Comment on above: Performed By: #### L [id number] ####[facility] ([facility])[address] [place] [address] Potassium [Moles/Vol] 3.8 mmol/L Normal 3.5-5.1 [facility] Comment on above: Performed By: #### L [id number] ####[facility] ([facility])[address] [place] [address] Sodium [Moles/Vol] 136 mmol/L Normal 136-145 [facility] Comment on above: Performed By: #### L [id number] ####[facility] ([facility] [place] [address] Urea nitrogen [Mass/Vol] 14 mg/dL Normal 7-25 [facility] Comment on above: Performed By: #### L [id number] ####[facility] ([facility] [place] [address] UREA NITROGEN/CREATININE (MA SS RATIO) IN SER/PLAS 11.5 Normal [facility] Comment on above: Performed By: #### L [id number] ####[facility] [place] [address] CBCon 11-28-2022 Erythrocyte distribution wid th (RBC) [Ratio] 14.3 % Normal 11.5-15.0 [facility] Comment on above: Performed By: #### L [id number] ####[facility] ([facility])[address] [place] [address] ERYTHROCYTE MEAN CORPUSCULAR HEMOGLOBIN CONCENTRATION (G/DL) BY AUTOMATED 33.2 g/dL Normal 32.0-35.0 [facility] Comment on above: Performed By: #### L [id number] ####[facility] ([facility])[address] [place] [address] Hematocrit (Bld) [Volume fraction] 40.4 % Normal 39.0-55.0 [facility] Comment on above: Performed By: #### L [id number] ####[facility] ([facility])[address] [place] [address] Hemoglobin (Bld) [Mass/Vol] 13.4 g/dL Normal 13.0-17. 0 [facility] Comment on above: Performed By: #### L [id number] ####[facility] ([facility])[address] [place] [address] MCH (RBC) [Entitic mass] 29.3 pg Normal 27.0-33.0 [facility] Comment on above: Performed By: #### L [id number] ####[facility] ([facility])[address] [place] [address] MCV (RBC) [Entitic vol] 88.2 fL Normal 82.0-98.0 [facility] Comment on above: Performed By: #### L [id number] ####[facility] ([facility])[address] [place] [address] PLATELETS (10*3/UL) IN BLOOD AUTOMATED COUNT 194 10*3/uL Normal 150-400 [facility] Comment on above: Performed By: #### L [id number] ####[facility] ([facility])[address] [place] [address] RBC (Bld) [#/Vol] 4.58 10*6/uL Normal 4.20-5.70 [facility] Comment on above: Performed By: #### L [id number] ####[facility] ([facility])[address] [place] [address] WBC (Bld) [#/Vol] 7.10 10*3/uL Normal 4.00-10.60 [facility] Comment on above: Performed By: #### L [id number] ####[facility] ([facility])[address] [place] [address] CONSULTon 11-28-2022 CONSULT Normal [facility] MAGNESIUMon 11-28-2022 Magnesium [Mass/Vol] 1.7 mg/dL Low 1.9-2.[address] [facility] Comment on above: Performed By: #### L [id number] ####[facility] ([facility])[address] [place] [address] NURSNOTEon 11-28-2022 NURSNOTE Normal [facility] PHOSPHORUSon 11-28-2022 Magnesium [Mass/Vol] 3.8 mg/dL Normal 2.5-5.[address] [facility] Comment on above: Performed By: #### L [id number] ####[facility] ([facility])[address] [place] [address] POCT GLUCOSE METER UNSOLICIT ED RESULTSon 11-28-2022 Glucose [Mass/Vol] 202 mg/dL High 70-105 [facility] Comment on above: Order Comment: Waive d Testing in the ED is performed under the ED CLIA certificate #[id number]. Result Comment: crystal philip Performed By: #### L [id number] ####[facility] ([facility])[address] [place] [address] Glucose [Mass/Vol] 110 mg/dL High 70-105 [facility] Comment on above: Order Comment: Waive d Testing in the ED is performed under the ED CLIA certificate #[id number]. Result Comment: [email or web address] Performed By: #### L [id number] ####[facility] ([facility] [facility] [address] Glucose [Mass/Vol] 190 mg/dL High 70-105 [facility] Comment on above: Order Comment: Waive d Testing in the ED is performed under the ED CLIA certificate #[id number]. Result Comment: [email or web address] Performed By: #### L [id number] ####[facility] ([facility])[address] [facility] [address] Glucose [Mass/Vol] 147 mg/dL High 70-105 [facility] Comment on above: Order Comment: Waive d Testing in the ED is performed under the ED CLIA certificate #[id number]. Result Comment: [email or web address] Performed By: #### L [id number] ####[facility] ([facility])[address] [facility] [address] 30on 11-27-2022 30 [facility] 30 [facility] 30 [facility] ANESon 11-27-2022 ANES [facility] ANTI-XA (HEPARIN LEVEL)on HEPARIN UNFRACTIONATED (U/ML ) IN PPP BY CHROMOGENIC METHOD 0.49 IU/mL Normal 0.3-0.7 [facility] Comment on above: Result Comment: Ayden roxaban and Apixaban will interfere with the anti Xa assay used to monitor UFH and LMWH. Performed By: #### L [id number] ####[facility] ([facility])[address] [place] [address] HEPARIN UNFRACTIONATED (U/ML ) IN PPP BY CHROMOGENIC METHOD 0.50 IU/mL Normal 0.3-0.7 [facility] Comment on above: Result Comment: Ayden roxaban and Apixaban will interfere with the anti Xa assay used to monitor UFH and LMWH. Performed By: #### L [id number] ####[facility] ([facility])[address] [place] [address] BASIC METABOLIC PANELon 11-11 Anion gap [Moles/Vol] 9 mmol/L Normal 7-20 [facility] Comment on above: Performed By: #### L [id number] ####[facility] ([facility])[address] [place] [address] Calcium [Mass/Vol] 8.9 mg/dL Normal 8.6-10.3 [facility] Comment on above: Performed By: #### L [id number] ####[facility] ([facility])[address] [place] [address] Chloride [Moles/Vol] 104 mmol/L Normal 98-[address] [facility] Comment on above: Performed By: #### L [id number] ####[facility] ([facility])[address] [place] [address] CO2 [Moles/Vol] 25 mmol/L Normal 21-31 [facility] Comment on above: Performed By: #### L [id number] ####[facility] ([facility])[address] [place] [address] Creatinine [Mass/Vol] 1.34 mg/dL High 0.70-1.30 [facility] Comment on above: Performed By: #### L [id number] ####[facility] ([facility])[address] [place] [address] GLOMERULAR FILTRATION RATE ML/MIN/1.73 SQ M.PREDICTED 57.0 mL/min/1.73m*2 Low >60.0 [facility] Comment on above: Result Comment: [facility]???s estimated glomerular filtration rate (eGFR) will no longer include consideration of race in its calculation. The National Kidney Foundation???s eGFR Task Force developed new recommendations for the estimation of the glomerular filtration rate in the [place] They recommend immediate implementation of the new equation refit without the race variable in all laboratories because the calculation does not include race. In addition to not including race in the calculation and reporting, it included diversity in its development, and has acceptable performance characteristics and potential consequences that do not disproportionately affect any one group of individuals. Performed By: #### L [id number] ####[facility] ([facility])[address] [facility] [place] [address] Glucose [Mass/Vol] 210 mg/dL High 70-100 [facility] Comment on above: Performed By: #### L [id number] ####[facility] ([facility])[address] [facility] [place] [address] Potassium [Moles/Vol] 4.1 mmol/L Normal 3.5-5.1 [facility] Comment on above: Performed By: #### L [id number] ####[facility] ([facility])[address] [facility] [place] [address] Sodium [Moles/Vol] 134 mmol/L Low 136-145 [facility] Comment on above: Performed By: #### L [id number] ####[facility] ([facility])[address] [facility] [place] [address] Urea nitrogen [Mass/Vol] 18 mg/dL Normal 7-25 [facility] Comment on above: Performed By: #### L [id number] ####[facility] ([facility])[address] [facility] [place] [address] UREA NITROGEN/CREATININE (MA SS RATIO) IN SER/PLAS 13.4 Normal [facility] Comment on above: Performed By: #### L [id number] ####[facility] ([facility])[address] [facility] [place] [address] CBCon 11-27-2022 Erythrocyte distribution wid th (RBC) [Ratio] 14.2 % Normal 11.5-15.0 [facility] Comment on above: Performed By: #### L [id number] ####[facility] ([facility])[address] [facility] [place] [address] ERYTHROCYTE MEAN CORPUSCULAR HEMOGLOBIN CONCENTRATION (G/DL) BY AUTOMATED 33.3 g/dL Normal 32.0-35.0 [facility] Comment on above: Performed By: #### L [id number] ####[facility] ([facility])[address] [place] [address] Hematocrit (Bld) [Volume fraction] 41.5 % Normal 39.0-55.0 [facility] Comment on above: Performed By: #### L [id number] ####[facility] ([facility])[address] [place] [address] Hemoglobin (Bld) [Mass/Vol] 13.8 g/dL Normal 13.0-17. 0 [facility] Comment on above: Performed By: #### L [id number] ####[facility] ([facility])[address] [place] [address] MCH (RBC) [Entitic mass] 28.9 pg Normal 27.0-33.0 [facility] Comment on above: Performed By: #### L [id number] ####[facility] ([facility])[address] [place] [address] MCV (RBC) [Entitic vol] 86.8 fL Normal 82.0-98.0 [facility] Comment on above: Performed By: #### L [id number] ####[facility] ([facility])[address] [place] [address] PLATELETS (10*3/UL) IN BLOOD AUTOMATED COUNT 187 10*3/uL Normal 150-400 [facility] Comment on above: Performed By: #### L [id number] ####[facility] ([facility])[address] [place] [address] RBC (Bld) [#/Vol] 4.78 10*6/uL Normal 4.20-5.70 [facility] Comment on above: Performed By: #### L [id number] ####[facility] ([facility])[address] [place] [address] WBC (Bld) [#/Vol] 6.16 10*3/uL Normal 4.00-10.60 [facility] Comment on above: Performed By: #### L [id number] ####[facility] ([facility])[address] [place] [address] HPon 11-27-2022 HP Normal [facility] MAGNESIUMon 11-27-2022 Magnesium [Mass/Vol] 1.8 mg/dL Low 1.9-2.[address] [facility] Comment on above: Performed By: #### L [id number] ####[facility] ([facility])[address] [place] [address] PHOSPHORUSon 11-27-2022 Magnesium [Mass/Vol] 3.4 mg/dL Normal 2.5-5.[address] [facility] Comment on above: Performed By: #### L [id number] ####[facility] ([facility])[address] [place] [address] POCT GLUCOSE METER UNSOLICIT ED RESULTSon 11-27-2022 Glucose [Mass/Vol] 393 mg/dL High 70-105 [facility] Comment on above: Order Comment: Waive d Testing in the ED is performed under the ED CLIA certificate #[id number]. Result Comment: crystal philip Performed By: #### L [id number] ####[facility] ([facility])[address] [place] [address] Glucose [Mass/Vol] 142 mg/dL High 70-105 [facility] Comment on above: Order Comment: Waive d Testing in the ED is performed under the ED CLIA certificate #[id number]. Result Comment: [email or web address] Performed By: #### L [id number] ####[facility] ([facility])[address] [place] [address] Glucose [Mass/Vol] 147 mg/dL High 70-105 [facility] Comment on above: Order Comment: Waive d Testing in the ED is performed under the ED CLIA certificate #[id number]. Result Comment: silvia [place] Performed By: #### L [id number] ####[facility] ([facility])[address] [place] [address] Glucose [Mass/Vol] 163 mg/dL High 70-105 [facility] Comment on above: Order Comment: Waive d Testing in the ED is performed under the ED CLIA certificate #[id number]. Result Comment: silvia [place] Performed By: #### L [id number] ####[facility] ([facility])[address] [place] [address] 30on 11-26-2022 30 Normal [facility] 30 Normal [facility] ANTI-XA (HEPARIN LEVEL)on HEPARIN UNFRACTIONATED (U/ML ) IN PPP BY CHROMOGENIC METHOD 0.57 IU/mL Normal 0.3-0.7 [facility] Comment on above: Result Comment: Maricruz roxaban and Apixaban will interfere with the anti Xa assay used to monitor UFH and LMWH. Performed By: #### L [id number] ####[facility] ([facility])[address] [place] [address] HEPARIN UNFRACTIONATED (U/ML) IN PPP BY CHROMOGENIC METHOD 0.96 IU/mL Critically high 0.3-0.7 [facility] Comment on above: Result Comment: Ayden roxaban and Apixaban will interfere with the anti Xa assay used to monitor UFH and LMWH. Performed By: #### L [id number] ####[facility] [place] [address] HEPARIN UNFRACTIONATED (U/ML ) IN PPP BY CHROMOGENIC METHOD 0.68 IU/mL Normal 0.3-0.7 [facility] Comment on above: Order Comment: Check anti-Xa level every 6 hours while on heparin infusion, or per protocol. Result Comment: Ayden roxaban and Apixaban will interfere with the anti Xa assay used to monitor UFH and LMWH. Performed By: #### L [id number] ####[facility] ([facility])[address] [place] [address] HEPARIN UNFRACTIONATED (U/ML ) IN PPP BY CHROMOGENIC METHOD 0.66 IU/mL Normal 0.3-0.7 [facility] Comment on above: Order Comment: Check anti-Xa level every 6 hours while on heparin infusion, or per protocol. Result Comment: Ayden roxaban and Apixaban will interfere with the anti Xa assay used to monitor UFH and LMWH. Performed By: #### L [id number] ####[facility] ([facility])[address] [place] [address] BASIC METABOLIC PANELon 11-11 Anion gap [Moles/Vol] 8 mmol/L Normal 7-20 [facility] Comment on above: Performed By: #### L [id number] ####[facility] ([facility])[address] [place] [address] Calcium [Mass/Vol] 8.9 mg/dL Normal 8.6-10.3 [facility] Comment on above: Performed By: #### L [id number] ####[facility] ([facility])[address] [place] [address] Chloride [Moles/Vol] 106 mmol/L Normal 98-[address] [facility] Comment on above: Performed By: #### L [id number] ####[facility] [place] [address] CO2 [Moles/Vol] 26 mmol/L Normal 21-31 [facility] Comment on above: Performed By: #### L [id number] ####[facility] [place] [address] Creatinine [Mass/Vol] 1.30 mg/dL Normal 0.70-1.30 [facility] Comment on above: Performed By: #### L [id number] ####[facility] ([facility])[address] [place] [address] GLOMERULAR FILTRATION RATE ML/MIN/1.73 SQ M.PREDICTED 59.1 mL/min/1.73m*2 Low >60.0 [facility] Comment on above: Result Comment: [facility]???s estimated glomerular filtration rate (eGFR) will no longer include consideration of race in its calculation. The National Kidney Foundation???s eGFR Task Force developed new recommendations for the estimation of the glomerular filtration rate in the [place] They recommend immediate implementation of the new equation refit without the race variable in all laboratories because the calculation does not include race. In addition to not including race in the calculation and reporting, it included diversity in its development, and has acceptable performance characteristics and potential consequences that do not disproportionately affect any one group of individuals. Performed By: #### L [id number] ####[facility] ([facility])[address] [place] [address] Glucose [Mass/Vol] 196 mg/dL High 70-100 [facility] Comment on above: Performed By: #### L [id number] ####[facility] ([facility])[address] [place] [address] Potassium [Moles/Vol] 4.2 mmol/L Normal 3.5-5.1 [facility] Comment on above: Performed By: #### L [id number] ####[facility] ([facility])[address] [place] [address] Sodium [Moles/Vol] 136 mmol/L Normal 136-145 [facility] Comment on above: Performed By: #### L [id number] ####[facility] ([facility])[address] [place] [address] Urea nitrogen [Mass/Vol] 17 mg/dL Normal 7-25 [facility] Comment on above: Performed By: #### L [id number] ####[facility] ([facility] [facility])[address] [place] [address] UREA NITROGEN/CREATININE (MA SS RATIO) IN SER/PLAS 13.1 Normal [facility] Comment on above: Performed By: #### L [id number] ####[facility] ([facility])[address] [place] [address] CBC WITH AUTO DIFFERENTIALon 11-26-2022 Basophils (Bld) [#/Vol] 0.03 10*3/uL Normal 0.00-0.20 [facility] Comment on above: Performed By: #### L [id number] ####[facility] [place] [address] Basophils/100 WBC (Bld) 0.4 % Normal 0.0-1.0 [facility] Comment on above: Performed By: #### L [id number] ####[facility] [place] [address] Eosinophils (Bld) [#/Vol] 0.21 10*3/uL Normal 0.00-0.5 0 [facility] Comment on above: Performed By: #### L [id number] ####[facility] ([facility])[address] [place] [address] Eosinophils/100 WBC (Bld) 3.1 % Normal 0.0-6.0 [facility] Comment on above: Performed By: #### L [id number] ####[facility] ([facility])[address] [place] [address] Erythrocyte distribution wid th (RBC) [Ratio] 14.3 % Normal 11.5-15.0 [facility] Comment on above: Performed By: #### L [id number] ####[facility] ([facility] [place] [address] ERYTHROCYTE MEAN CORPUSCULAR HEMOGLOBIN CONCENTRATION (G/DL) BY AUTOMATED 33.4 g/dL Normal 32.0-35.0 [facility] Comment on above: Performed By: #### L [id number] ####[facility] [place] [address] Hematocrit (Bld) [Volume fraction] 42.5 % Normal 39.0-55.0 [facility] Comment on above: Performed By: #### L [id number] ####[facility] [place] [address] Hemoglobin (Bld) [Mass/Vol] 14.2 g/dL Normal 13.0-17. 0 [facility] Comment on above: Performed By: #### L [id number] ####[facility] ([facility])[address] [place] [address] Immature granulocytes (Bld) [#/Vol] 0.03 10*3/uL Normal 0.00-0.20 [facility] Comment on above: Performed By: #### L [id number] ####[facility] ([facility])[address] [place] [address] Immature granulocytes/100 WBC (Bld) 0.4 % Normal 0.0-1.0 [facility] Comment on above: Performed By: #### L [id number] ####[facility] ([facility])[address] [place] [address] Lymphocytes (Bld) [#/Vol] 1.09 10*3/uL Low 1.20-4.0 0 [facility] Comment on above: Performed By: #### L [id number] ####[facility] ([facility])[address] [place] [address] Lymphocytes/100 WBC (Bld) 16.2 % Low 20.0-45.0 [facility] Comment on above: Performed By: #### L [id number] ####[facility] ([facility])[address] [place] [address] MCH (RBC) [Entitic mass] 29.1 pg Normal 27.0-33.0 [facility] Comment on above: Performed By: #### L [id number] ####[facility] ([facility])[address] [place] [address] MCV (RBC) [Entitic vol] 87.1 fL Normal 82.0-98.0 [facility] Comment on above: Performed By: #### L [id number] ####[facility] ([facility])[address] [place] [address] Monocytes (Bld) [#/Vol] 0.46 10*3/uL Normal 0.10-1.00 [facility] Comment on above: Performed By: #### L [id number] ####[facility] ([facility])[address] [place] [address] Monocytes/100 WBC (Bld) 6.8 % Normal 5.0-12.0 [facility] Comment on above: Performed By: #### L [id number] ####[facility] ([facility])[address] [place] [address] Neutrophils (Bld) [#/Vol] 4.90 10*3/uL Normal 1.60-7.6 0 [facility] Comment on above: Performed By: #### L [id number] ####[facility] ([facility])[address] [place], [place] [address] Neutrophils/100 WBC (Bld) 73.1 % High 40.0-72.0 [facility] Comment on above: Performed By: #### L [id number] ####[facility] ([facility])[address] [place], [place] [address] NRBC (PER 100 WBCS) BY AUTOM ATED COUNT 0.0 % Normal 0 [facility] Comment on above: Performed By: #### L [id number] ####[facility] ([facility])[address] [place] [address] PLATELETS (10*3/UL) IN BLOOD AUTOMATED COUNT 201 10*3/uL Normal 150-400 [facility] Comment on above: Performed By: #### L [id number] ####[facility] ([facility])[address] [place] [address] RBC (Bld) [#/Vol] 4.88 10*6/uL Normal 4.20-5.70 [facility] Comment on above: Performed By: #### L [id number] ####[facility] ([facility])[address] [place] [address] WBC (Bld) [#/Vol] 6.72 10*3/uL Normal 4.00-10.60 [facility] Comment on above: Performed By: #### L [id number] ####[facility] ([facility])[address] [place] [address] MAGNESIUMon 11-26-2022 Magnesium [Mass/Vol] 1.7 mg/dL Low 1.9-2.[address] [facility] Comment on above: Performed By: #### L [id number] ####[facility] ([facility])[address] [place] [address] NURSNOTEon 11-26-2022 NURSNOTE Normal [facility] PHOSPHORUSon 11-26-2022 Magnesium [Mass/Vol] 3.0 mg/dL Normal 2.5-5.[address] [facility] Comment on above: Performed By: #### L [id number] ####[facility] ([facility])[address] [place] [address] POCT GLUCOSE METER UNSOLICIT ED RESULTSon 11-26-2022 Glucose [Mass/Vol] 188 mg/dL High 70-105 [facility] Comment on above: Order Comment: Waive d Testing in the ED is performed under the ED CLIA certificate #[id number]. Result Comment: [email or web address] Performed By: #### L [id number] ####[facility] ([facility])[address] [place] [address] Glucose [Mass/Vol] 142 mg/dL High 70-105 [facility] Comment on above: Order Comment: Waive d Testing in the ED is performed under the ED CLIA certificate #[id number]. Result Comment: [email or web address] Performed By: #### L [id number] ####[facility] ([facility])[address] [place] [address] Glucose [Mass/Vol] 201 mg/dL High 70-105 [facility] Comment on above: Order Comment: Waive d Testing in the ED is performed under the ED CLIA certificate #[id number]. Result Comment: [email or web address] Performed By: #### L [id number] ####[facility] ([facility])[address] [place] [address] Glucose [Mass/Vol] 159 mg/dL High 70-105 [facility] Comment on above: Order Comment: Waive d Testing in the ED is performed under the ED CLIA certificate #[id number]. Result Comment: [email or web address] Performed By: #### L [id number] ####[facility] ([facility])[address] [place] [address] TROPONIN Ion 11-26-2022 Troponin I.cardiac [Mass/Vol] 0.02 ng/mL Normal 0.00-0 .04 [facility] Comment on above: Performed By: #### L [id number] ####[facility] ([facility])[address] [place] [address] 30on 11-25-2022 30 Normal [facility] ANTI-XA (HEPARIN LEVEL)on HEPARIN UNFRACTIONATED (U/ML ) IN PPP BY CHROMOGENIC METHOD >1.00 Critically high 0.3-0.7 [facility] Comment on above: Order Comment: Check anti-Xa level every 6 hours while on heparin infusion, or per protocol. Result Comment: Maricruz roxaban and Apixaban will interfere with the anti Xa assay used to monitor UFH and LMWH. Performed By: #### L [id number] ####[facility] ([facility])[address] [place] [address] APTTon 11-25-2022 ACTIVATED PARTIAL THROMBOPLASTIN TIME IN PPP BY COAGULATION ASSAY 31.6 Seconds Normal 25.0-35.0 [facility] Comment on above: Order Comment: Basel ine aPTT before initiating heparin infusion. Result Comment: Clin ical significance of the APTT is questionable in the presence of heparin. Performed By: #### L [id number] ####[facility] ([facility])[address] [place] [address] ACTIVATED PARTIAL THROMBOPLASTIN TIME IN PPP BY COAGULATION ASSAY 32.7 Seconds Normal 25.0-35.0 [facility] Comment on above: Result Comment: Clin ical significance of the APTT is questionable in the presence of heparin. Performed By: #### L [id number] ####[facility] ([facility])[address] [place] [address] BASIC METABOLIC PANELon 11-11 Anion gap [Moles/Vol] 11 mmol/L Normal 7-20 [facility] Comment on above: Performed By: #### L [id number] ####[facility] ([facility])[address] [place] [address] Calcium [Mass/Vol] 9.2 mg/dL Normal 8.6-10.3 [facility] Comment on above: Performed By: #### L [id number] ####[facility] ([facility])[address] [place] [address] Chloride [Moles/Vol] 105 mmol/L Normal 98-[address] [facility] Comment on above: Performed By: #### L [id number] ####[facility] ([facility])[address] [place] [address] CO2 [Moles/Vol] 26 mmol/L Normal 21-31 [facility] Comment on above: Performed By: #### L [id number] ####[facility] ([facility])[address] [place] [address] Creatinine [Mass/Vol] 1.21 mg/dL Normal 0.70-1.30 [facility] Comment on above: Performed By: #### L [id number] ####[facility] ([facility])[address] [place] [address] GLOMERULAR FILTRATION RATE ML/MIN/1.73 SQ M.PREDICTED 64.4 mL/min/1.73m*2 Normal >60.0 [facility] Comment on above: Result Comment: [facility]???s estimated glomerular filtration rate (eGFR) will no longer include consideration of race in its calculation. The National Kidney Foundation???s eGFR Task Force developed new recommendations for the estimation of the glomerular filtration rate in the [place] They recommend immediate implementation of the new equation refit without the race variable in all laboratories because the calculation does not include race. In addition to not including race in the calculation and reporting, it included diversity in its development, and has acceptable performance characteristics and potential consequences that do not disproportionately affect any one group of individuals. Performed By: #### L [id number] ####[facility] ([facility])[address] [place] [address] Glucose [Mass/Vol] 200 mg/dL High 70-100 [facility] Comment on above: Performed By: #### L [id number] ####[facility] ([facility])[address] [place] [address] Potassium [Moles/Vol] 3.8 mmol/L Normal 3.5-5.1 [facility] Comment on above: Performed By: #### L [id number] ####[facility] ([facility])[address] [place] [address] Sodium [Moles/Vol] 138 mmol/L Normal 136-145 [facility] Comment on above: Performed By: #### L [id number] ####[facility] ([facility])[address] [place] [address] Urea nitrogen [Mass/Vol] 18 mg/dL Normal 7-25 [facility] Comment on above: Performed By: #### L [id number] ####[facility] ([facility])[address] [place] [address] UREA NITROGEN/CREATININE (MA SS RATIO) IN SER/PLAS 14.9 Normal [facility] Comment on above: Performed By: #### L [id number] ####[facility] ([facility])[address] [place] [address] CALCIUM, IONIZEDon CALCIUM IONIZED (MMOL/L) IN BLOOD 1.16 mmol/L Normal 1.15-1.33 [facility] Comment on above: Performed By: #### C ALCIUM, IONIZED ####[facility] RESPIRATORY [id number] [place] [address] [place] CBC WITH AUTO DIFFERENTIALon 11-25-2022 Basophils (Bld) [#/Vol] 0.03 10*3/uL Normal 0.00-0.20 [facility] Comment on above: Performed By: #### L [id number] ####[facility] ([facility])[address] [place] [address] Basophils/100 WBC (Bld) 0.5 % Normal 0.0-1.0 [facility] Comment on above: Performed By: #### L [id number] ####[facility] ([facility])[address] [place] [address] Eosinophils (Bld) [#/Vol] 0.15 10*3/uL Normal 0.00-0.5 0 [facility] Comment on above: Performed By: #### L [id number] ####[facility] ([facility])[address] [place] [address] Eosinophils/100 WBC (Bld) 2.3 % Normal 0.0-6.0 [facility] Comment on above: Performed By: #### L [id number] ####[facility] ([facility])[address] [place] [address] Erythrocyte distribution wid th (RBC) [Ratio] 14.1 % Normal 11.5-15.0 [facility] Comment on above: Performed By: #### L [id number] ####[facility])[address] [place] [address] ERYTHROCYTE MEAN CORPUSCULAR HEMOGLOBIN CONCENTRATION (G/DL) BY AUTOMATED 34.5 g/dL Normal 32.0-35.0 [facility] Comment on above: Performed By: #### L [id number] ####[facility])[address] [place] [address] Hematocrit (Bld) [Volume fraction] 44.4 % Normal 39.0-55.0 [facility] Comment on above: Performed By: #### L [id number] ####[facility])[address] [place] [address] Hemoglobin (Bld) [Mass/Vol] 15.3 g/dL Normal 13.0-17. 0 [facility] Comment on above: Performed By: #### L [id number] ####[facility] ([facility])[address] [place] [address] Immature granulocytes (Bld) [#/Vol] 0.03 10*3/uL Normal 0.00-0.20 [facility] Comment on above: Performed By: #### L [id number] ####[facility] ([facility])[address] [place] [address] Immature granulocytes/100 WBC (Bld) 0.5 % Normal 0.0-1.0 [facility] Comment on above: Performed By: #### L [id number] ####[facility])[address] [place] [address] Lymphocytes (Bld) [#/Vol] 0.98 10*3/uL Low 1.20-4.0 0 [facility] Comment on above: Performed By: #### L [id number] ####[facility] ([facility])[address] [place] [address] Lymphocytes/100 WBC (Bld) 15.0 % Low 20.0-45.0 [facility] Comment on above: Performed By: #### L [id number] ####[facility])[address] [place] [address] MCH (RBC) [Entitic mass] 29.4 pg Normal 27.0-33.0 [facility] Comment on above: Performed By: #### L [id number] ####[facility])[address] [place] [address] MCV (RBC) [Entitic vol] 85.4 fL Normal 82.0-98.0 [facility] Comment on above: Performed By: #### L [id number] ####[facility])[address] [place] [address] Monocytes (Bld) [#/Vol] 0.55 10*3/uL Normal 0.10-1.00 [facility] Comment on above: Performed By: #### L [id number] ####[facility] ([facility])[address] [place] [address] Monocytes/100 WBC (Bld) 8.4 % Normal 5.0-12.0 [facility] Comment on above: Performed By: #### L [id number] ####[facility] ([facility])[address] [place] [address] Neutrophils (Bld) [#/Vol] 4.80 10*3/uL Normal 1.60-7.6 0 [facility] Comment on above: Performed By: #### L [id number] ####[facility] ([facility])[address] [place] [address] Neutrophils/100 WBC (Bld) 73.3 % High 40.0-72.0 [facility] Comment on above: Performed By: #### L [id number] ####[facility] ([facility])[address] [place] [address] NRBC (PER 100 WBCS) BY AUTOM ATED COUNT 0.0 % Normal 0 [facility] Comment on above: Performed By: #### L [id number] ####[facility] ([facility])[address] [place] [address] PLATELETS (10*3/UL) IN BLOOD AUTOMATED COUNT 198 10*3/uL Normal 150-400 [facility] Comment on above: Performed By: #### L [id number] ####[facility] ([facility])[address] [place] [address] RBC (Bld) [#/Vol] 5.20 10*6/uL Normal 4.20-5.70 [facility] Comment on above: Performed By: #### L [id number] ####[facility] ([facility])[address] [place], [place] [address] WBC (Bld) [#/Vol] 6.54 10*3/uL Normal 4.00-10.60 [facility] Comment on above: Performed By: #### L [id number] ####[facility] ([facility])[address] [place] [address] CONSULTon 11-25-2022 CONSULT Normal [facility] Documentationon 11-25-2022 Documentation [id number] Gray Rodriguez 1950 M Date Provider Department [place] 11/25/[id number] GLYNN [facility] PULM [facility] No family history on file Normal [facility] HEPATIC FUNCTION PANELon Albumin [Mass/Vol] 4.0 g/dL Normal 3.5-5.7 [facility] Comment on above: Performed By: #### L [id number] ####[facility] ([facility])[address] [place] [address] ALP [Catalytic activity/Vol] 88 U/L Normal 34-104 [facility] Comment on above: Performed By: #### L [id number] ####[facility] ([facility])[address] [place] [address] ALT [Catalytic activity/Vol] 26 U/L Normal 7-52 [facility] Comment on above: Performed By: #### L [id number] ####[facility] ([facility])[address] [place] [address] AST [Catalytic activity/Vol] 18 U/L Normal 13-39 [facility] Comment on above: Performed By: #### L [id number] ####[facility] ([facility])[address] [place] [address] Bilirubin [Mass/Vol] 0.6 mg/dL Normal 0.3-1.[address] [facility] Comment on above: Performed By: #### L [id number] ####[facility] ([facility])[address] [place] [address] Magnesium [Mass/Vol] 0.2 mg/dL Normal 0-0.[address] [facility] Comment on above: Performed By: #### L [id number] ####[facility] ([facility])[address] [place] [address] Protein [Mass/Vol] 6.4 g/dL Normal 6.0-8.3 [facility] Comment on above: Performed By: #### L [id number] ####[facility] ([facility]ER)[address] [place] [address] HPon 11-25-2022 HP Normal [facility] Normal [facility] MAGNESIUMon 11-25-2022 Magnesium [Mass/Vol] 1.7 mg/dL Low 1.9-2.[address] [facility] Comment on above: Performed By: #### L [id number] ####[facility] ([facility])[address] [place] [address] PHOSPHORUSon 11-25-2022 Magnesium [Mass/Vol] 3.2 mg/dL Normal 2.5-5.[address] [facility] Comment on above: Performed By: #### L [id number] ####[facility] ([facility])[address] [place] [address] PLATELET COUNTon 11-25-2022 PLATELETS (10*3/UL) IN BLOOD AUTOMATED COUNT 204 10*3/uL Normal 150-400 [facility] Comment on above: Performed By: #### L [id number] ####[facility] ([facility])[address] [place] [address] POCT GLUCOSE METER UNSOLICIT ED RESULTSon 11-25-2022 Glucose [Mass/Vol] 194 mg/dL High 70-105 [facility] Comment on above: Order Comment: Waive d Testing in the ED is performed under the ED CLIA certificate #[id number]. Result Comment: [email or web address] [email or web address] Performed By: #### L [id number] ####[facility] ([facility])[address] [place] [address] Glucose [Mass/Vol] 193 mg/dL High 70-105 [facility] Comment on above: Order Comment: Waive d Testing in the ED is performed under the ED CLIA certificate #[id number]. Result Comment: awat [email or web address] Performed By: #### L [id number] ####[facility] ([facility])[address] [place] [address] Glucose [Mass/Vol] 188 mg/dL High 70-105 [facility] Comment on above: Order Comment: Waive d Testing in the ED is performed under the ED CLIA certificate #[id number]. Result Comment: awat [email or web address] Performed By: #### L [id number] ####[facility] (BE[facility]ER)[address] [place] [address] Glucose [Mass/Vol] 178 mg/dL High 70-105 [facility] Comment on above: Order Comment: Waive d Testing in the ED is performed under the ED CLIA certificate #[id number]. Result Comment: [email or web address] [email or web address] Performed By: #### L [id number] ####[facility] (BE[facility]ER)[address] [place] [address] POTASSIUM, WHOLE BLOODon Potassium [Moles/Vol] 3.9 mmol/L Normal 3.5-5.1 [facility] Comment on above: Performed By: #### P OTASSIUM, WHOLE BLOOD ####[facility] RESPIRATORY [id number] [place] [address] [place] PROTIME-INRon 11-25-2022 INR IN PPP BY COAGULATION ASSAY 1.74 High 0.90 -1.10 [facility] Comment on above: Result Comment: ACCCP RECOMMENDED INR FO R WARFARIN THERAPY ------CONDITION INRPROPHYLAXIS OF VENOUS THROMBOSIS 2-3(HIGH-RISK SURGERY)TREATMENT OF VENOUS THROMBOSIS 2-3TREATMENT OF PULMONARY EMBOLISM 2-3PREVENTION OF SYSTEMIC EMBOLISM: 2-3 ACUTE MYOCARDIAL INFARCTION TISSUE HEART VALVES VALVULAR HEART DISEASE ATRIAL FIBRILLATION RECURRENT SYSTEMIC EMBOLISMMECHANICAL HEART VALVE 2.5-3.5 FROM: ORAL ANTICOAGULANTS. MECHANISM OF ACTION, CLINICAL EFFECTIVENESS, AND OPTIMAL THERAPEUTIC RANGE. CHEST 1995;108:231S-246S. Performed By: #### L [id number] ####[facility] ([facility]ER)[address] [facility] [address] PROTHROMBIN TIME (PT) IN PPP BY COAGULATION ASSAY 20.4 Seconds High 12.3-14.8 [facility] Comment on above: Performed By: #### L [id number] ####[facility] ([facility])[address] [facility] [address] SODIUM, WHOLE BLOODon 2022 SODIUM, WHOLE BLOOD 132 Low 136-145 [facility] Comment on above: Performed By: #### S ODIUM, WHOLE BLOOD ####[facility] RESPIRAT[facility] [id number] [facility] [place] [address] [place] TROPONIN Ion 11-25-2022 Troponin I.cardiac [Mass/Vol] 0.03 ng/mL Normal 0.00-0 .04 [facility] Comment on above: Performed By: #### L [id number] ####[facility] ([facility])[address] [place] [address] Troponin I.cardiac [Mass/Vol] 0.01 ng/mL Normal 0.00-0 .04 [facility] Comment on above: Performed By: #### L [id number] ####[facility] ([facility])[address] [place] [address] CHEMISTRYOrdered By: Lab ROP User on 10-02-2022 INR Coag (Bld) [Relative time] 2.1 {INR} High 0.7 - 1.2 [facility] Subsection POC Device SN [id number] Invalid Interpre tation Code [facility] Subsection POC Username PARISA HYDE Invalid Interpr etation Code [facility] Subsection POCT PT 23.2 s High 8.0 - 15.0 second(s) [facility] Subsection Sodium [Moles/Vol] [id number] mmol/L Invalid Interpretation Code [facility] Subsection COAGULATIONOrdered By: Elenita Hyde on 10-02-2022 INR Coag (Bld) [Relative time] 2.1 {INR} High 0.7 - 1.2 [facility] POCT PT 23.2 s High 8 - 15 second(s) [facility] POCT PT/INRon 10-02-2022 POCT INR 2.1 High .7-1.2 [facility] [facility] Comment on above: Performed By: #### 2 [id number] ####[facility] [address] [place] [address] POCT PT 23.2 second(s) High 8.0-15.0 [facility] Comment on above: Performed By: #### 2 [id number] ####[facility] [address] [place] [address] CHEMISTRYOrdered By: Lab ROP User on 08-21-2022 POC Device SN [id number] Invalid Interpretation Code [facility] Subsection POC Username CHRISTINA HAINES Invalid Interpretation Code [facility] Subsection Sodium [Moles/Vol] 849421030 mmol/L Invalid Interpretation Code [facility] Subsection COAGULATIONOrdered By: Ebenezer Haines on 08-21-2022 INR Coag (Bld) [Relative time] 2.1 {INR} High 0.7 - 1.2 [facility] POCT PT 23.3 s High 8 - 15 second(s) [facility] POCT PT/INRon 08-21-2022 POCT INR 2.1 High .7-1.2 [facility] Comment on above: Performed By: #### 2 [id number] ####[facility] [address] [place] [address] POCT PT 23.3 second(s) High 8.0-15.0 [facility] Comment on above: Performed By: #### 2 [id number] ####[facility] [address] [place] [address] Progress Note-Physicianon Progress Note-Physician Patient: SHAD RODRIGUEZ Age: 71 years Sex: Male : 1950 Associated Diagnoses: None Author: Aggie Hollingsworth Patient is seen today for their interval coumadin assessment in the [facility]. He is on coumadin for DVT/PE. He has a pmhx of DVT which is unprovoked. Initial DVT was diagnosed June 20, 2015 and that eventually led to the diagnosis of his rectal cancer. He also is heterozygote for factor V Leiden mutation. He is followed by Dr. Edmond. Tolerating coumadin well, no change in diet or medication. Denies any melena, hematochezia, hematuria, gingival bleeding, hematoma's or prolonged epistaxis. . We discussed the patient's coumadin therapy today. --Indication: DVT/PE --Current coumadin pill being used: as above --Current dose of coumadin: as above --Side effects / complications of coumadin: Denies any problems with the use of coumadin -- denies any gum bleeds, nose bleeds, easy bruising, or other sequelae of coumadin toxicity. --Medication changes since last visit:-none --OTC meds / herbal meds used since the last visit: --none --Any change in diet since last visits, including vitamin-K rich foods:--none --Compliance: no missed doses We also reviewed the patient's risk factors for bleeding using the Outpatient Bleeding Risk Index: 1. 65yo or older: yes 2. Hx of GI tract bleeding: no 3. Hx of stroke: no 4. Serious co-morbid conditions (recent WA, anemia with Hct <30%, CRI with SCr > 1.5, DM): yes hx of cancer Score = 2//4 Risk (low = 0, mod = 1-2, high = 3-4): Health Status Allergies: Allergic Reactions (Selected) Severity Not Documented Penicillins- Unknown. Ragweed- Dyspnea., Allergies (2) Active Reaction penicillins unknown Ragweed Dyspnea Current medications: (Selected) Prescriptions Prescribed Coumadin 4 mg Tab: 4 mg = 1 tab(s), Oral, As Directed, as directed, per INR results, # 90 tab(s), Refills(s) 0, Pharmacy: [facility]/pharmacy #[id number], 167.6, cm, 01/02/19 13:46:00 EST, Height/Length Measured, 95.8, kg, 01/02/19 13:46:00 EST, Weight Measured Eliquis 2.5 mg oral tablet: 2.5 mg = 1 tab(s), Oral, BID, # 60 tab(s), Refills(s) 5, Pharmacy: [facility]/pharmacy #[id number] Metamucil 525 mg oral capsule: 2,625 mg = 5 cap(s), Oral, Daily, X 90 day(s), # 450 cap(s), Refills(s) 3, Pharmacy: [facility]/pharmacy #[id number], 167.6, cm, 06/27/22 8:28:00 EDT, Height/Length Dosing, 94.9, kg, 06/27/22 8:28:00 EDT, Weight Dosing albuterol HFA 90 mcg/inh MDI: 2 puff(s), Inhalation, QID for wheezing, 6.7 gram, Refill(s) 0, [facility]/pharmacy #[id number] predniSONE 10 mg Tab: See Instructions, Oral 6 tabs for 1 day,5 tabs for 1 day,4 tabs for 1 day,3 tabs for 1 day,2 tabs for 1 day,1 tab for 1 day, # 21 tab(s), Refills(s) 0, Pharmacy: [facility]/pharmacy #[id number] Documented Medications Documented Immodium A-D 2 mg Cap: 2 mg = 1 cap(s), Oral, QIDACHS, pt takes scheduled unless constipated, Refills(s) 0, Diarrhea amLODIPine 2.5 mg Tab: 2.5 mg = 1 tab(s), Oral, Daily, # 30 tab(s), Refills(s) 0, High blood pressure atorvastatin 10 mg Tab: 10 mg = 1 tab(s), Oral, Daily, # 30 tab(s), Refills(s) 0, High cholesterol glipiZIDE 5 mg Tab: 5 mg = 1 tab(s), Oral, Daily, # 30 tab(s), Refills(s) 0, Blood glucose lisinopril 2.5 mg Tab: 2.5 mg = 1 tab(s), Oral, Daily, Refills(s) 0, High blood pressure pantoprazole: 40 mg, Oral, Daily, Refills(s) 0, Control of stomach acid pioglitazone 15 mg Tab: 15 mg = 1 tab(s), Oral, Daily, Refills(s) 0, Blood glucose polyethylene glycol 3350 Oral Pwdr for Recon: 17 gram, Oral, Daily, PRN Constipation, dissolve in water before taking, Refills(s) 0 warfarin 4 mg Tab: 4 mg = 1 tab(s), Oral, MonWeFrSaSu, Refills(s) 0, Blood Thinner, Home Medications (14) Active albuterol HFA 90 mcg/inh MDI 2 puff(s), PRN, Inhalation, QID amLODIPine 2.5 mg Tab 2.5 mg = 1 tab(s), Oral, Daily atorvastatin 10 mg Tab 10 mg = 1 tab(s), Oral, Daily Coumadin 4 mg Tab 4 mg = 1 tab(s), Oral, As Directed Eliquis 2.5 mg oral tablet 2.5 mg = 1 tab(s), Oral, BID glipiZIDE 5 mg Tab 5 mg = 1 tab(s), Oral, Daily Immodium A-D 2 mg Cap 2 mg = 1 cap(s), Oral, QIDACHS lisinopril 2.5 mg Tab 2.5 mg = 1 tab(s), Oral, Daily Metamucil 525 mg oral capsule 2,625 mg = 5 cap(s), Oral, Daily pantoprazole 40 mg, Oral, Daily pioglitazone 15 mg Tab 15 mg = 1 tab(s), Oral, Daily polyethylene glycol 3350 Oral Pwdr for Recon 17 gram, PRN, Oral, Daily predniSONE 10 mg Tab See Instructions warfarin 4 mg Tab 4 mg = 1 tab(s), Oral, MonWeFrSaSu , No qualifying data available Problem list: All Problems Bloating / SNOMED CT 704071948 / Confirmed Constipation / SNOMED CT 59293094 / Confirmed Diverticulosis / SNOMED CT 2470567749 / Confirmed Acid reflux / SNOMED CT 834337031 / Confirmed Hemorrhoids / SNOMED CT 951679141 / Confirmed History of rectal cancer / SNOMED CT 3676944514 / Confirmed History of colon polyps / SNOMED CT 6235664996 / Confirmed Hypercoagulable state / SNOMED CT 193377822 / Confir (more content not included)... Normal [facility] Comment on above: Result Comment: Elec tronically Signed By: Aggie Hollingsworth\.br\Date and Time Signed: 08/21/22 08:26 EDT CHEMISTRYOrdered By: Danni BARBA User on 07-10-2022 POC Device SN [id number] Invalid Interpretation Code [facility] Subsection POC Username SHAYY CAIN Invalid Interpretation Code [facility] Subsection Sodium [Moles/Vol] 920498459 mmol/L Invalid Interpretation Code [facility] Subsection POCT PT/INRon 07-10-2022 POCT INR 2.3 High .7-1.2 [facility] Comment on above: Performed By: #### 2 [id number] ####[facility] [address] [place] [address] POCT PT 24.8 second(s) High 8.0-15.0 [facility] Comment on above: Performed By: #### 2 [id number] ####[facility] [address] [place] [address] Ambulatory Visit Summaryon 0 06-27-2022 Ambulatory Visit Summary MICHAEL SHAD Pickett :1950 Visit Date:06/27/2022 Ambulatory Visit Instructions Your Diagnosis Constipation Bloating History of rectal cancer History of colon polyps Acid reflux Your Care Team Attending Physician - Yusra Denis CNP Primary Care Physician - Shad Dyson MD This Is Your Medications List psyllium (Metamucil 525 mg oral capsule) Contact prescribing physician if questions or concerns albuterol (albuterol HFA 90 mcg/inh MDI) amlodipine (amLODIPine 2.5 mg Tab) apixaban (Eliquis 2.5 mg oral tablet) atorvastatin (atorvastatin 10 mg Tab) glipiZIDE (glipiZIDE 5 mg Tab) lisinopril (lisinopril 2.5 mg Tab) loperamide (Immodium A-D 2 mg Cap) pantoprazole pioglitazone (pioglitazone 15 mg Tab) polyethylene glycol 3350 (polyethylene glycol 3350 Oral Pwdr for Recon) predniSONE (predniSONE 10 mg Tab) warfarin (Coumadin 4 mg Tab) warfarin (warfarin 4 mg Tab) Procedures Performed Colonoscopy (10/05/2021), Colonoscopy (03/02/2017), colostomy reversal, EGD (esophagogastroduodenoscopy) gastric outlet reduction. Discharge Vitals Temperature (Temporal Artery) 36.3 ?C Heart Rate (Peripheral) 66 Blood Pressure 146/82 Height 66 in Height 167.6 cm Weight 208.78 lb Weight 94.9 kg BMI 33.78 What to do next Scheduled Follow-Up Appointments Saturday 2:00 PM EDT With: Dougie Harmon DO Where: [facility] Saturday 9:30 AM EDT With: Where: [facility] You Need to Schedule the Following Appointments Follow Up with Yusra Denis CNP When: Within 1 year Where: You Need to Complete the Following Vitamin B12 Level, Blood, Routine collect, 06/27/22, Order for future visit, Lab Collect, Acid reflux, Not Required, Print Label By Order Location Medications What How Much When Why Instructions Unchanged psyllium (Metamucil 525 mg oral capsule) 5 Capsules By Mouth Every day Constipation Duration: 90 Days Pickup at [facility]/pharmacy #[id number] Unchanged albuterol (albuterol HFA 90 mcg/ inh MDI) 2 Puffs Inhalation 4 times a day as needed for for wheezing Acute bronchitis Contact prescribing physician if questions or concerns Unchanged amlodipine (amLODIPine 2.5 mg Tab) 1 Tablets By Mouth Every day Contact prescribing physician if questions or concerns Unchanged apixaban (Eliquis 2.5 mg oral tablet) 1 Tablets By Mouth 2 times a day Contact prescribing physician if questions or concerns Unchanged atorvastatin (atorvastatin 10 mg Tab) 1 Tablets By Mouth Every day Contact prescribing physician if questions or concerns Unchanged glipiZIDE (glipiZIDE 5 mg Tab) 1 Tablets By Mouth Every day Contact prescribing physician if questions or concerns Unchanged lisinopril (lisinopril 2.5 mg Tab) 1 Tablets By Mouth Every day Contact prescribing physician if questions or concerns Unchanged loperamide (Immodium A-D 2 mg Cap) 1 Capsules By Mouth Four times a day (before meals and at bedtime) pt takes scheduled unless constipated Contact prescribing physician if questions or concerns Unchanged pantoprazole 40 Milligram By Mouth Every day Contact prescribing physician if questions or concerns Unchanged pioglitazone (pioglitazone 15 mg Tab) 1 Tablets By Mouth Every day Contact prescribing physician if questions or concerns Unchanged polyethylene glycol 3350 (polyethylene glycol 3350 Oral Pwdr for Recon) 17 Gram By Mouth Every day as needed for Constipation dissolve in water before taking Contact prescribing physician if questions or concerns Unchanged predniSONE (predniSONE 10 mg Tab) See instructions Acute bronchitis Oral 6 tabs for 1 day,5 tabs for 1 day,4 tabs for 1 day,3 tabs for 1 day,2 tabs for 1 day,1 tab for 1 day Contact prescribing physician if questions or concerns Unchanged warfarin (Coumadin 4 mg Tab) 1 Tablets By Mouth As Directed as directed, per INR results Contact prescribing physician if questions or concerns Unchanged warfarin (warfarin 4 mg Tab) 1 Tablets By Mouth Saturday & Saturday Contact prescribing physician if questions or concerns Pharmacy Information [facility]/pharmacy #[id number]: [address], [place] [id number] [phone] Allergies Ragweed (Dyspnea) penicillins (unknown) Problems Ongoing - Any problem that you are currently receiving treatment for. Acid reflux Bloating Colon polyp Constipation Diverticulosis Hemorrhoids History of colon polyps History of rectal cancer Hypercoagulable state Schatzki's ring Historical - Any problem that you are no longer receiving treatment for. Change in bowel habits Colon cancer DVT - Deep vein thrombosis Dysphagia Education Materials Constipation, Adult Constipation is when a person has fewer than three bowel movements in a week, has difficulty having a bowel movement, or has stools (feces) that are dry, hard, or larger than normal. Constipation may be caused by an underlying condition. It may (more content not included)... Normal [facility] Auto Diffon 06-27-2022 Basophils/100 WBC (Bld) 0.2 % Normal 0.0-2.0 [facility] Comment on above: Order Comment: Order Added by Discern Expert. Performed By: #### 2 019469, 6780255, 9842796, 95698299, 6592864 ####[facility] [address] [place] [address] Basophils/Leukocytes Auto (B ld) [Pure # fraction] 0.0 E9/L Normal 0.0-0.2 [facility] Comment on above: Order Comment: Order Added by Discern Expert. Performed By: #### 2 419851, 8372956, 4280534, 00266762, 6443379 ####[facility] [address] [place] [address] Eosinophils/100 WBC (Bld) 2.1 % Normal 0.0-8.[address] [facility] Comment on above: Order Comment: Order Added by Discern Expert. Performed By: #### 2 739256, 0681049, 5216392, 84975364, 6417696 ####[address] [place] [address] Eosinophils/Leukocytes Auto (Bld) [Pure # fraction] 0.1 E9/L Normal 0.0-0.5 [facility] Comment on above: Order Comment: Order Added by Discern Expert. Performed By: #### 2 422331, 3614004, 7360295, 28202692, 3251336 ####[address] [address] Lymphocytes/100 WBC (Bld) 16.3 % Normal 14.0-50.[address] [facility] Comment on above: Order Comment: Order Added by Michael Expert. Performed By: #### 2 968223, 1925554, 0995727, 55372868, 0230380 ####[address] [address] Lymphocytes/Leukocytes Auto (Bld) [Pure # fraction] 1.0 E9/L Normal 1.0-4.0 [facility] Comment on above: Order Comment: Order Added by Michael Expert. Performed By: #### 2 512494, 3729054, 8492916, 54865375, 3398819 ####[address] [address] Monocytes/100 WBC (Bld) 9.0 % Normal 4.0-14.0 [facility] Comment on above: Order Comment: Order Added by Discern Expert. Performed By: #### 2 596612, 7638525, 8827862, 08010516, 4378894 ####[address] [address] Monocytes/Leukocytes Auto (B ld) [Pure # fraction] 0.6 E9/L Normal 0.2-1.0 [facility] Comment on above: Order Comment: Order Added by Michael Expert. Performed By: #### 2 875072, 6925047, 2773129, 17745824, 2708865 ####[facility] [address] [place] [address] Neutrophils/100 WBC (Bld) 72.4 % Normal 36.0-75.[address] [facility] Comment on above: Order Comment: Order Added by Discern Expert. Performed By: #### 2 074413, 7992916, 8840979, 38743116, 8325479 ####[address] [place] [address] Neutrophils/Leukocytes Auto (Bld) [Pure # fraction] 4.6 E9/L Normal 2.0-7.5 [facility] Comment on above: Order Comment: Order Added by Discern Expert. Performed By: #### 2 641805, 7508468, 0759452, 36552790, 3852029 ####[address] [address] CBC w/ Auto Diffon 3 Erythrocyte distribution wid th (RBC) [Ratio] 14.0 % Normal 10.9-14.2 [facility] Comment on above: Performed By: #### 2 721233, 3036259, 0072285, 67320128, 1159670 ####[address] [place] [address] Hematocrit (Bld) [Volume fraction] 46.6 % Normal 37.7-49.0 [facility] Comment on above: Performed By: #### 2 964166, 1726857, 4627977, 88888603, 1588392 ####[address] [place] [address] Hemoglobin (Bld) [Mass/Vol] 15.3 g/dL Normal 13.5-17. [address] [facility] Comment on above: Performed By: #### 2 141307, 1775426, 1050012, 70353353, 9902789 ####[address] [place] [address] MCH (RBC) [Entitic mass] 29.2 pg Normal 27.0-34.[address] [facility] Comment on above: Performed By: #### 2 356477, 4210131, 6881772, 12567278, 9768406 ####[facility] [address] [place] [address] MCHC (RBC) [Mass/Vol] 32.8 g/dL Normal 31.4-36.0 [facility] Comment on above: Performed By: #### 2 313746, 6885695, 8108048, 29340891, 5784096 ####[facility] [address] [place] [address] MCV (RBC) [Entitic vol] 89.2 fL Normal 80.0-100.0 [facility] Comment on above: Performed By: #### 2 154186, 0772179, 2506782, 32580904, 6253194 ####[address] [address] Platelet mean volume (Bld) [Entitic vol] 8.9 fL Normal 6.4-10.8 [facility] Comment on above: Performed By: #### 2 973547, 5037781, 5759033, 26138491, 2866383 ####[facility] [address] [place] [address] Platelets (Bld) [#/Vol] 197.0 E9/L Normal 150.0-500.[address] [facility] Comment on above: Performed By: #### 2 234065, 7294205, 2281985, 04445965, 6762953 ####[facility] [address] [place] [address] RBC (Bld) [#/Vol] 5.2 E12/L Normal 4.3-5.[address] [facility] Comment on above: Performed By: #### 2 082794, 0615936, 5824218, 32731875, 8626333 ####[facility] [address] [place] [address] WBC corrected for nucl RBC A uto (Bld) [#/Vol] 6.4 E9/L Normal 4.0-11.0 [facility] Comment on above: Performed By: #### 2 356226, 1715589, 8902557, 96722903, 7260824 ####[facility] [address] [place] [address] CEAon 06-27-2022 Carcinoembryonic Ag [Mass/Vol] 2.0 ng/mL Invalid Interpretation Code [facility] Comment on above: Result Comment: REFE RENCE VALUES <2.5 ng/mL (NONSMOKER) <5.0 ng/mL (SMOKER) The concentration of CEA in a given specimen determined by different manufacturers can vary due to differences in assay methods and reagent specificity. Values obtained with different assay methods cannot be used interchangeably. The methodology used to perform this test was chemiluminescence using [employer]s Access CEA reagent. Performed By: #### 2 154488, 5308853, 3977322, 81832940, 8622512 ####[facility] [address] [place] [address] CMPon 06-27-2022 Albumin [Mass/Vol] 3.9 g/dL Normal 3.3-5.[address] [facility] Comment on above: Performed By: #### 2 059646, 7475590, 3669473, 73109614, 0740556 ####[facility] [address] [place] [address] Albumin/Globulin (S) [Mass conc ratio] 1.3 Normal 1.1-2.[address] [facility] Comment on above: Performed By: #### 2 214923, 9357343, 7975270, 42432458, 0057779 ####[facility] [address] [place] [address] ALP [Catalytic activity/Vol] 94 Int._Unit/L Normal 21- [address] [facility] Comment on above: Performed By: #### 2 493275, 1885565, 4072855, 95192166, 0600723 ####[facility] [address] [place] [address] ALT No additional P-5'-P [Catalytic activity/Vol] 29 Int._Unit/L Normal 6-[address] [facility] Comment on above: Performed By: #### 2 076603, 7154362, 9953436, 96363776, 5381587 ####[facility] [address] [place] [address] Anion gap [Moles/Vol] 10 mmol/L Normal 6-16 [facility] Comment on above: Performed By: #### 2 276640, 7021887, 6396048, 38573056, 4804200 ####[facility] [address] [facility] [place] [address] AST [Catalytic activity/Vol] 24 Int._Unit/L Normal 5-[address] [facility] Comment on above: Performed By: #### 2 393576, 5228502, 3428655, 96424962, 8287395 ####[facility] [address] [facility] [place] [address] Bilirubin [Mass/Vol] 0.6 mg/dL Normal 0.0-1.1 [facility] Comment on above: Performed By: #### 2 482609, 0538522, 9038699, 60706701, 1066387 ####[facility] [address] [place] [address] Calcium [Mass/Vol] 9.1 mg/dL Normal 8.9-11.[address] [facility] Comment on above: Performed By: #### 2 050791, 9729066, 6954225, 59943549, 0257845 ####[facility] [address] [place] [address] Chloride [Moles/Vol] 104 mmol/L Normal 101-111 [facility] Comment on above: Performed By: #### 2 414206, 4776324, 8195964, 87207783, 8402180 ####[facility] [address] [place] [address] CO2 [Moles/Vol] 28 mmol/L Normal 21-31 [facility] Comment on above: Performed By: #### 2 559561, 3957477, 1434616, 33241087, 6038920 ####[facility] [address] [place] [address] Creatinine [Mass/Vol] 1.3 mg/dL Normal 0.5-1.3 [facility] Comment on above: Performed By: #### 2 981582, 2941318, 0775955, 47834600, 0647704 ####[facility] [address] [place] [address] Globulin (S) [Mass/Vol] 3.1 g/dL Normal 1.4-4.0 [facility] Comment on above: Performed By: #### 2 816555, 3921032, 3698874, 76559522, 9110889 ####[facility] [address] [place] [address] Glucose [Mass/Vol] 176 mg/dL Normal 55-[address] [facility] Comment on above: Result Comment: If t his glucose result represents a fasting glucose, interpretation should refer to the following reference range: 55-99 mg/dL Performed By: #### 2 229469, 2848334, 4853079, 11084793, 5744111 ####[facility] [address] [place] [address] Potassium [Moles/Vol] 3.7 mmol/L Normal 3.5-5.3 [facility] Comment on above: Performed By: #### 2 760482, 7016708, 8552528, 34172281, 7983570 ####[facility] [address] [place] [address] Protein [Mass/Vol] 7.0 g/dL Normal 6.0-7.[address] [facility] Comment on above: Performed By: #### 2 247724, 8804321, 2182773, 16707855, 0345394 ####[facility] [address] [place] [address] Sodium [Moles/Vol] 138 mmol/L Normal 135-[address] [facility] Comment on above: Performed By: #### 2 708407, 9358094, 0237062, 16977026, 8658758 ####[facility] [address] [place] [address] Urea nitrogen [Mass/Vol] 15 mg/dL Normal 5-[address] [facility] Comment on above: Performed By: #### 2 851165, 7883879, 4591037, 86584596, 0570631 ####[facility] [address] [place] [address] Urea nitrogen/Creatinine [Ma ss ratio] 12 No Units Normal 10-20 [facility] Comment on above: Performed By: #### 2 073096, 1825158, 8427870, 80634302, 7011098 ####[facility] [address] [place] [address] Consent for Treatmenton 06-11 Consent for Treatment [id number]:[address] [facility] Consent for Treatment [id number]:[address] [facility] Consent for Treatment [id number]:[address] [facility] Gastroenterology Office/Clin ic Noteon 06-27-2022 Gastroenterology Office/Clinic Note Chief Complaint Followup HPI Staff Patient is a 71 year old male here today to followup from 05/17/22 office visit for constipation, bloating and reflux. Patient had labs done this morning and states that fiber has improved his symptoms. He is taking 5 fiber a day. History of Present Illness Patient is a 71-year-old male who presents for follow-up. Patient was previously evaluated 05/2022 for constipation. Patient with history of rectal cancer 08/2015 status post chemotherapy, radiation, and resection. Patient also with history of factor V Leiden and takes Coumadin. Patient with history of dysphagia and had previous EGD with dilation 10/05/2021 that revealed tight distal schatzki's ring- dilated, normal gastric mucosa, normal duodenum. Patient is currently taking pantoprazole 40 mg daily. Previous colonoscopy 10/05/2021 revealed minimally hyperplastic mucosa on pathology from cecal polyp, diverticulosis, colonic/rectal anastomosis normal, hemorrhoids. Patient is due for repeat colonoscopy in 2026. Patient reported during most recent visit 05/2022 that he has history of constipation off-and-on with bloating over the last year. He reported constipation and occasional diarrhea was not new for him however, constipation was becoming more frequent. He also reported associated nausea with vomiting. He indicated his PCP previously started him on Linzess that he is taking as needed as he gets diarrhea with Linzess. Patient was educated to start fiber supplementation daily?2 tabs daily and to separate 2 hours from other medications, to drink adequate amount of water, to start MiraLAX 1 capful daily as needed, and to eat kiwi/prunes. Patient was also ordered labs to evaluate for vitamin deficiencies given long-term use of PPI. Labs completed 06/2022 revealed normal BUN, normal creatinine, normal magnesium. No B12 level available to review during today's encounter. During today's visit, patient reports he is doing better. He reports he is taking fiber 5 capsules daily and is having 1-2 formed BM daily. He is drinking plenty of water. Patient reports his bloating has improved with improved constipation. Denies use of probiotics. He reports acid reflux is well-controlled with pantoprazole 40mg daily. Denies black/bloody stools, fevers/chills, nausea/vomiting, and denies having any GI complaints. Review of Systems PHQ Score Initial Depression Screen Score: 0 ROS - Provider Constitutional: no fever, no chills. Skin: no Jaundice. ENMT: Denies dysphagia and heartburn. Respiratory: no shortness of breath. Cardiovascular: no chest pain. Gastrointestinal: no nausea, no vomiting, no diarrhea, no GI bleeding. Physical Exam Vitals & Measurements T: 36.3 ?C(Temporal Artery) HR: 66(Peripheral) BP: 146/82 HT: 66 in HT: 167.6 cm WT: 94.9 kg WT: 208.78 lb BMI: 33.78 General: Well developed, well nourished, in no acute distress Head: Normocephalic/atraumatic Lungs: Normal respiratory effort and clear to auscultation Cardio: Regular rate and rhythm, normal S1 and S2, no murmur, no rub Abdomen: Soft, non-distended, non-tender. Normoactive bowel sounds present in all 4 abdominal quadrants, bilaterally. Mental Status: Alert and oriented x3. Normal mood and affect Assessment/Plan BP elevated today at 146/82- BP managed by patient's PCP. 1. Constipation (K59.00: Constipation, unspecified) Improved with metamucil fiber 5 capsules daily. Colonoscopy completed 10/05/2021 revealed minimally hyperplastic mucosa noted from cecum polyp, diverticulosis, colonic/rectal anastomosis in rectum normal, hemorrhoids?Dr. Hinojosa recommended for patient to have repeat colonoscopy in 5 years?2026. Continue fiber supplementation daily. Continue to drink adequate amount of water daily. Ordered: psyllium, 2,625 mg = 5 cap(s), Oral, Daily, X 90 day(s), # 450 cap(s), Refills(s) 3, Pharmacy: [facility]/pharmacy #[id number], 167.6, cm, 06/27/22 8:28:00 EDT, Height/Length Dosing, 94.9, kg, 06/27/22 8:28:00 EDT, Weight Dosing 2. Bloating (R14.0: Abdominal distension (gaseous)) Improved. Colonoscopy completed 10/05/2021 revealed minimally hyperplastic mucosa noted from cecum polyp, diverticulosis, colonic/rectal anastomosis in rectum normal, hemorrhoids?Dr. Hinojosa recommended for patient to have repeat colonoscopy in 5 years?2026. Continue fiber supplementation daily. Continue to drink adequate amount of water daily. Educated regarding probiotics daily. 3. History of rectal cancer (Z85.048: Personal history of other malignant neoplasm of rectum, rectosigmoid junction, and anus) History of rectal cancer 08/2015 status postchemotherapy, radiation, and resection. Colonoscopy completed 10/05/2021 revealed minimally hyperplastic mucosa noted from cecum polyp, diverticulosis, colonic/rectal anastomosis in rectum normal, hemorrhoids?Dr. Hinojosa recommended for patient to have repeat colonoscopy in 5 years?2026. 4. History of colon polyps (Z86.010: Personal history of colonic polyps) History of rectal cance (more content not included)... Normal [facility] Comment on above: Result Comment: Elec tronically Signed By: Cira MINER, Yusra Pickett\.br\Date and Time Signed: 06/27/22 08:50 EDT Magnesiumon 06-27-2022 Magnesium [Mass/Vol] 1.9 mg/dL Normal 1.3-2.4 [facility] Comment on above: Performed By: #### 2 [id number], [id number] ####[facility] [address] [place] [place] [address] Oncology Progress Noteon Oncology Progress Note Patient: SHAD RODRIGUEZ Age: 71 years Sex: Male : 1950 Associated Diagnoses: None Author: Dougie Harmon DO Chief Complaint 06/27/2022 8:25 EDT Followup History of Present Illness Gray presents in follow-up today November 14, 2020. CT scans of the chest abdomen pelvis are negative for recurrence. He has no complaints. He did have uneventful hernia repair surgery in [place]. He will be going to [place] and following up with me in June. My plan at that time will be CEA, lab work, and chest x-ray. He has not had endoscopy since his diagnosis. When he comes back in June I will refer him to GI for endoscopy. He does have a hypercoagulable state. According to him he has had pulmonary embolism in the past and DVT. According to old notes he had a DVT diagnosed in June 2015 and this eventually led to his diagnosis of rectal cancer. Previous notes states he was on Eliquis. He is not on this. He was found to have a heterozygous mutation in factor V Leiden. He was diagnosed as having a T3N1 rectal adenocarcinoma receiving neoadjuvant chemotherapy and radiation beginning this in November 2015. Post resection he was found to have T2N0 disease. He had a very difficult postoperative course and due to the length of time between the surgery and recovery he did not receive adjuvant chemotherapy. 06/26/21 still has some abdominal discomfort, much improved but still there. he denies incontinence or diarrhea, but when he gets the urge, he has to lezama to the restroom sometimes. Feels maybe it's related to his diet does have some issues with urgency to pee, thinks he goes more frequently. is scheduled to see PCP in 3-4 weeks continues on coumadin no recurrent DVTs/PE, no s/s of clots denies sob or chest pain. can get dyspneic if very active or going up multiple flights of stairs no fevers, chills, sweats or weight loss. Energy level is stable labs stable with no concerns 12/28/21 he feels well now that he has recovered from covid a few weeks ago has some mild constipation, controlled with medication denies n/v, shortness of breath or chest pain no new s/s clots. had colonoscopy and EGD in September labs stable, cea 1.7 06/27/22 he is doing well overall. energy has been low for a few months, but better in the last few weeks fiber helped his constipation a lot. cea negative, his renal function stable Review of Systems Constitutional: Negative. Eye: Negative. Ear/Nose/Mouth/Throat: Negative. Respiratory: Negative. Cardiovascular: Negative. Gastrointestinal: Constipation. Genitourinary: Negative, urgency. Hematology/Lymphatics: Negative. Endocrine: Polyuria. Immunologic: Negative. Musculoskeletal: Negative. Integumentary: Negative. Neurologic: Negative. Psychiatric: Negative. All other systems are negative Health Status Allergies: Allergic Reactions (Selected) Severity Not Documented Penicillins- Unknown. Ragweed- Dyspnea. Current medications: Home Medications (14) Active albuterol HFA 90 mcg/inh MDI 2 puff(s), PRN, Inhalation, QID amLODIPine 2.5 mg Tab 2.5 mg = 1 tab(s), Oral, Daily atorvastatin 10 mg Tab 10 mg = 1 tab(s), Oral, Daily Coumadin 4 mg Tab 4 mg = 1 tab(s), Oral, As Directed Eliquis 2.5 mg oral tablet 2.5 mg = 1 tab(s), Oral, BID glipiZIDE 5 mg Tab 5 mg = 1 tab(s), Oral, Daily Immodium A-D 2 mg Cap 2 mg = 1 cap(s), Oral, QIDACHS lisinopril 2.5 mg Tab 2.5 mg = 1 tab(s), Oral, Daily Metamucil 525 mg oral capsule 2,625 mg = 5 cap(s), Oral, Daily pantoprazole 40 mg, Oral, Daily pioglitazone 15 mg Tab 15 mg = 1 tab(s), Oral, Daily polyethylene glycol 3350 Oral Pwdr for Recon 17 gram, PRN, Oral, Daily predniSONE 10 mg Tab See Instructions warfarin 4 mg Tab 4 mg = 1 tab(s), Oral, MonWeFrSaSu , No qualifying data available Problem list: All Problems Bloating / SNOMED CT 493093319 / Confirmed Constipation / SNOMED CT 47622122 / Confirmed Diverticulosis / SNOMED CT 1786623761 / Confirmed Acid reflux / SNOMED CT 708340112 / Confirmed Hemorrhoids / SNOMED CT 489591613 / Confirmed History of rectal cancer / SNOMED CT 9600619462 / Confirmed History of colon polyps / SNOMED CT 5970377473 / Confirmed Hypercoagulable state / SNOMED CT 736856873 / Confirmed Schatzki's ring / SNOMED CT 052109440 / Confirmed Colon polyp / SNOMED CT 434171951 / Confirmed Resolved: Change in bowel habits / SNOMED CT 936363066 Resolved: At Risk For Unstable Blood Glucose Level / IMO [id number] Problem added due to documentation that the patient has diabetes. Resolved due to patient discharge. Resolved: Colon cancer / SNOMED CT 3795853269 Resolved: DVT - Deep vein thrombosis / SNOMED CT 3359547699 Resolved: Dysphagia / SNOMED CT 10006043 Histories Past Medical History: Resolved Colon cancer (6933482154): Resolved. DVT - Deep vein thrombosis (6830156821): Resolved. Change in bowel habits (558026936): Resolved. Dysphagia (53541571): R (more content not included)... Normal [facility] Patient Educationon 06-28-19 Patient Education Gastroenterology Constipation, Adult Constipation is when a person has fewer than three bowel movements in a week, has difficulty having a bowel movement, or has stools (feces) that are dry, hard, or larger than normal. Constipation may be caused by an underlying condition. It may become worse with age if a person takes certain medicines and does not take in enough fluids. Follow these instructions at home: Eating and drinking ? Eat foods that have a lot of fiber, such as beans, whole grains, and fresh fruits and vegetables. ? Limit foods that are low in fiber and high in fat and processed sugars, such as fried or sweet foods. These include uzbek fries, hamburgers, cookies, candies, and soda. ? Drink enough fluid to keep your urine pale yellow. General instructions ? Exercise regularly or as told by your health care provider. Try to do 150 minutes of moderate exercise each week. ? Use the bathroom when you have the urge to go. Do not hold it in. ? Take cfzs-xiq-afjtbor and prescription medicines only as told by your health care provider. This includes any fiber supplements. ? During bowel movements: ? Practice deep breathing while relaxing the lower abdomen. ? Practice pelvic floor relaxation. ? Watch your condition for any changes. Let your health care provider know about them. ? Keep all follow-up visits as told by your health care provider. This is important. Contact a health care provider if: ? You have pain that gets worse. ? You have a fever. ? You do not have a bowel movement after 4 days. ? You vomit. ? You are not hungry or you lose weight. ? You are bleeding from the opening between the buttocks (anus). ? You have thin, pencil-like stools. Get help right away if: ? You have a fever and your symptoms suddenly get worse. ? You leak stool or have blood in your stool. ? Your abdomen is bloated. ? You have severe pain in your abdomen. ? You feel dizzy or you faint. Summary ? Constipation is when a person has fewer than three bowel movements in a week, has difficulty having a bowel movement, or has stools (feces) that are dry, hard, or larger than normal. ? Eat foods that have a lot of fiber, such as beans, whole grains, and fresh fruits and vegetables. ? Drink enough fluid to keep your urine pale yellow. ? Take dghv-ljz-sroztcu and prescription medicines only as told by your health care provider. This includes any fiber supplements. This information is not intended to replace advice given to you by your health care provider. Make sure you discuss any questions you have with your health care provider. Document Revised: 12/16/2019 Document Reviewed: 12/16/2019 [employer] Patient Education ? 2022 [employer] Normal [facility] Vit B12on 06-27-2022 Cobalamin (Vitamin B12) [Mass/Vol] 338 pg/mL Normal 50-1500 [facility] Comment on above: Performed By: #### 2 [id number], [id number] ####[facility] [address] [place] [address] eGFRon 06-27-2022 GFR/1.73 sq M.predicted dino g non-blacks MDRD (S/P/Bld) [Vol rate/Area] 59 mL/min/1.73 m2 Normal >=59 [facility] Comment on above: Order Comment: Order added by Discern Expert. Result Comment: Ophthalmic Tech lisa kidney disease could be indicated at eGFR's of less than 60 mL/min/1.73m2. Kidney failure is indicated at less than 15 mL/min/1.73m2. Performed By: #### 2 [id number] ####[facility] [address] [place] [address] POCT PT/INRon 06-01-2022 POCT INR 2.1 High .7-1.2 [facility] Comment on above: Performed By: #### 2 [id number] ####[facility] [address] [place] [address] POCT PT 23.5 second(s) High 8.0-15.0 [facility] Comment on above: Performed By: #### 2 [id number] ####[facility] [address] [place] [address] Ambulatory Visit Summaryon 0 05-17-2022 Ambulatory Visit Summary SHAD RODRIGUEZ :1950 Visit Date:05/17/2022 Ambulatory Visit Instructions Your Diagnosis Constipation Bloating History of rectal cancer Acid reflux History of colon polyps Your Care Team Attending Physician - Yusra Denis CNP Primary Care Physician - Shad Dyson MD This Is Your Medications List psyllium (Metamucil 525 mg oral capsule) Contact prescribing physician if questions or concerns albuterol (albuterol HFA 90 mcg/inh MDI) amlodipine (amLODIPine 2.5 mg Tab) apixaban (Eliquis 2.5 mg oral tablet) atorvastatin (atorvastatin 10 mg Tab) glipiZIDE (glipiZIDE 5 mg Tab) lisinopril (lisinopril 2.5 mg Tab) loperamide (Immodium A-D 2 mg Cap) pantoprazole pioglitazone (pioglitazone 15 mg Tab) polyethylene glycol 3350 (polyethylene glycol 3350 Oral Pwdr for Recon) predniSONE (predniSONE 10 mg Tab) warfarin (Coumadin 4 mg Tab) warfarin (warfarin 4 mg Tab) Procedures Performed Colonoscopy (10/05/2021), Colonoscopy (03/02/2017), colostomy reversal, EGD (esophagogastroduodenoscopy) gastric outlet reduction. Discharge Vitals Temperature (Temporal Artery) 36.2 ?C Heart Rate (Peripheral) 71 Respiratory Rate 16 Blood Pressure 131/81 Height 167.6 cm Height 66 in Weight 94.8 kg Weight 208.56 lb BMI 33.75 What to do next Scheduled Follow-Up Appointments Saturday 9:30 AM EDT With: Where: Cardiovascular Services Saturday 8:00 AM EDT With: Yusra Denis CNP Where: [facility] Normal [facility] Gastroenterology Office/Clin ic Noteon 05-17-2022 Gastroenterology Office/Clinic Note Chief Complaint abdominal bloating and constipation HPI Staff Patient is a(n) 71 year old male who presents today for a(n) 6 month follow up. C/o abdominal bloating and constipation. History of Present Illness Patient is a 71-year-old male who presents for follow-up. Patient was previously evaluated 11/2021 and has history of rectal cancer 08/2015 status postchemotherapy, radiation, and resection. Patient also with history of factor V Leiden and is taking Coumadin. Patient reported during previous evaluation 11/2021 that he was no longer having feeling like food was stuck in his esophagus. He reported his stools were primarily loose over the last 2 months with some formed stools. Had reported taking 1/2 tablespoon Benefiber daily for the last 2 months. He also reported having 4-5 bowel movements a day. Patient was educated to increase fiber to 1 tablespoon daily. Patient also with history of acid reflux that is controlled with pantoprazole 40 mg daily. EGD completed 10/05/2021 revealed tight distal schazki's ring-disrupted with cold forceps and dilated, normal gastric mucosa, normal duodenum. Colonoscopy completed 10/05/2021 revealed minimally hyperplastic mucosa noted from cecum polyp, diverticulosis, colonic/rectal anastomosis in rectum normal, hemorrhoids?Dr. Hinojosa recommended for patient to have repeat colonoscopy in 5 years?2026. During today's visit, patient reports having hx. of off/on constipation with associated bloating for over the last year. He explains constipation and occasional diarrhea is not new for him. He reports constipation is becoming more frequent. Explains having no BM for 3-5 days, then he will have bloating. He also reports having some occasions of diarrhea. He reports having associated nausea with bloating. Gets darrhea with Linzess. He explains his PCP started him on Linzess 72mcg. that he explains he takes as needed. He reports hx. 2 abdominal hernias that were repaired per patient in 2020. Reports having occasional indigestion with spicy foods that pantoprazole is helping. Denies use of fiber supplementation. Denies black/bloody stools, vomiting, fevers/chills, and denies having any other GI complaints. Review of Systems PHQ Score Initial Depression Screen Score: 0 ROS - Provider Constitutional: no fever, no chills. Skin: no Jaundice. ENMT: Denies dysphagia and heartburn. Respiratory: no shortness of breath. Cardiovascular: no chest pain. Gastrointestinal: no nausea, no vomiting, occasional diarrhea, no GI bleeding. Physical Exam Vitals & Measurements T: 36.2 ?C(Temporal Artery) HR: 71(Peripheral) RR: 16 BP: 131/81 SpO2: 96% HT: 66 in HT: 167.6 cm WT: 94.8 kg WT: 208.56 lb BMI: 33.75 General: Well developed, well nourished, in no acute distress Head: Normocephalic/atraumatic Lungs: Normal respiratory effort and clear to auscultation Cardio: Regular rate and rhythm, normal S1 and S2, no murmur, no rub Abdomen: Soft, non-distended, non-tender. Normoactive bowel sounds present in all 4 abdominal quadrants, bilaterally. Mental Status: Alert and oriented x3. Normal mood and affect Assessment/Plan 1. Constipation (K59.00: Constipation, unspecified) Is having hx. of off/on constipation with associated bloating for over the last year. Reports constipation is not new for him. History of rectal cancer 08/2015 status postchemotherapy, radiation, and resection. Colonoscopy completed 10/05/2021 revealed minimally hyperplastic mucosa noted from cecum polyp, diverticulosis, colonic/rectal anastomosis in rectum normal, hemorrhoids?Dr. Hinojosa recommended for patient to have repeat colonoscopy in 5 years?2026. Educated to start fiber supplementation- metamucil 2 capsules daily- separate 2 hours from other medications. Educated to drink adequate amount of water. Educated to start miralax 1 capful daily PRN. Educated to eat kiwi/prunes. Ordered: psyllium, 2,625 mg = 5 cap(s), Oral, Daily, X 90 day(s), # 450 cap(s), Refills(s) 0, Pharmacy: [facility]/pharmacy #[id number], 167.6, cm, 05/17/22 8:01:00 EDT, Height/Length Dosing, 94.8, kg, 05/17/22 8:01:00 EDT, Weight Dosing 2. Bloating (R14.0: Abdominal distension (gaseous)) Is having hx. of off/on constipation with associated bloating for over the last year. Reports constipation is not new for him. History of rectal cancer 08/2015 status postchemotherapy, radiation, and resection. Colonoscopy completed 10/05/2021 revealed minimally hyperplastic mucosa noted from cecum polyp, diverticulosis, colonic/rectal anastomosis in rectum normal, hemorrhoids?Dr. Hinojosa recommended for patient to have repeat colonoscopy in 5 years?2026. Educated to start fiber supplementation- metamucil 2 capsules daily- separate 2 hours from other medications. Educated to drink adequate amount of water. Educated to start miralax 1 capful daily PRN. Educated to eat kiwi/prunes. 3. History of rectal cancer (Z85.048: Personal history of other malignant neoplasm of rectum, rectosigmoid junction, and an (more content not included)... Normal [facility] Comment on above: Result Comment: Elec tronically Signed By: Yusra Denis CNP\.pavan\Date and Time Signed: 05/17/22 08:28 EDT Patient Educationon 05-18-19 Patient Education Gastroenterology Chronic Constipation Chronic constipation is a condition in which a person has three or fewer bowel movements a week, for three months or longer. This condition is especially common in older adults. The two main kinds of chronic constipation are secondary constipation and functional constipation. Secondary constipation results from another condition or a treatment. Functional constipation, also called primary or idiopathic constipation, is divided into three types: ? Normal transit constipation. In this type, movement of stool through the colon (stool transit) occurs normally. ? Slow transit constipation. In this type, stool moves slowly through the colon. ? Outlet constipation or pelvic floor dysfunction. In this type, the nerves and muscles that empty the rectum do not work normally. What are the causes? Causes of secondary constipation may include: ? Failing to drink enough fluid, eat enough food or fiber, or get physically active. ? . ? A tear in the anus (anal fissure). ? Blockage in the bowel (bowel obstruction). ? Narrowing of the bowel (bowel stricture). ? Having a long-term medical condition, such as: ? Diabetes. ? Hypothyroidism. ? Multiple sclerosis. ? Parkinson disease. ? Stroke. ? Spinal cord injury. ? Dementia. ? Colon cancer. ? Inflammatory bowel disease (IBD). ? Iron-deficiency anemia. ? Outward collapse of the rectum (rectal prolapse). ? Hemorrhoids. ? Taking certain medicines, including: ? Narcotics. These are a certain type of prescription pain medicine. ? Antacids. ? Iron supplements. ? Water pills (diuretics). ? Certain blood pressure medicines. ? Anti-seizure medicines. ? Antidepressants. ? Medicines for Parkinson disease. The cause of functional constipation is not known, but some conditions are associated with it. These conditions include: ? Stress. ? Problems in the nerves and muscles that control stool transit. ? Weak or impaired pelvic floor muscles. What increases the risk? You may be at higher risk for chronic constipation if you: ? Are older than age 70. ? Are female. ? Live in a long-term care facility. ? Do not get much exercise or physical activity (have a sedentary lifestyle). ? Do not drink enough fluids. ? Do not eat enough food, especially fiber. ? Have a long-term disease. ? Have a mental health disorder or eating disorder. ? Take many medicines. What are the signs or symptoms? The main symptom of chronic constipation is having three or fewer bowel movements a week for several weeks. Other signs and symptoms may vary from person to person. These include: ? Pushing hard (straining) to pass stool. ? Painful bowel movements. ? Having hard or lumpy stools. ? Having lower belly discomfort, such as cramps or bloating. ? Being unable to have a bowel movement when you feel the urge. ? Feeling like you still need to pass stool after a bowel movement. ? Feeling that you have something in your rectum that is blocking or preventing bowel movements. ? Seeing blood on the toilet paper or in your stool. ? Worsening confusion (in older adults). How is this diagnosed? This condition may be diagnosed based on: ? Symptoms and medical history. You will be asked about your symptoms, lifestyle, diet, and any medicines that you are taking. ? Physical exam. ? Your belly (abdomen) will be examined. ? A digital rectal exam may be done. For this exam, a health care provider places a lubricated, gloved finger into the rectum. ? Other tests to check for any underlying causes of your constipation. These may be ordered if you have bleeding in your rectum, weight loss, or a family history of colon cancer. In these cases, you may have: ? Imaging studies of the colon. These may include X-ray, ultrasound, or CT scan. ? Blood tests. ? A procedure to examine the inside of your colon (colonoscopy). ? More specialized tests to check: ? Whether your anal sphincter works well. This is a ring-shaped muscle that controls the closing of the anus. ? How well food moves through your colon. ? Tests to measure the nerve signal in your pelvic floor muscles (electromyography). How is this treated? Treatment for chronic constipation depends on the cause. Most often, treatment starts with: ? Being more active and getting regular exercise. ? Drinking more fluids. ? Adding fiber to your diet. Sources of fiber include fruits, vegetables, whole grains, and fiber supplements. ? Using medicines such as stool softeners or medicines that increase contractions in your digestive system (pro-motility agents). ? Training your pelvic muscles with biofeedback. ? Surgery, if there is obstruction. Treatment for secondary chronic constipation depends on the underlying condition. You may need to: ? Stop or change some medicines if they cause constipation. ? Use a fiber (more content not included)... Normal [facility] 05-08-2022 Outside Records [id number]#1.00CD:[address] [facility] 04-12-2022 Outside Records [id number]#1.00CD:[address] [facility] 03-29-2022 Outside Records [id number]:[address] [facility] 02-28-2022 Outside Records [id number]#1.00CD:[address] [facility] 02-06-2022 Outside Records [id number]#1.00CD:[address] [facility] COAGULATIONOrdered By: Elenita Hyde on 01-09-2022 POCT INR 2.8 High 0.7 - 1.2 [facility] POCT PT 30.2 High 8 - 15 [facility] CHEMISTRYOrdered By: SYSTEM SYSTEM on 12-27-2021 Albumin [Mass/Vol] 4.0 g/dL Normal 3.3 - 5.0 gm/dL [facility] Albumin/Globulin [Mass ratio] 1.3 {ratio} Normal 1.1 - 2.2 [facility] ALP [Catalytic activity/Vol] 90 [iU]/d Normal 21 - 98 Int._Unit/L [facility] ALT No additional P-5'-P [Catalytic activity/Vol] 46 [iU]/d Normal 6 - 46 Int._Unit/L [facility] Anion gap [Moles/Vol] 12 mmol/L Normal 6 - 16 mEq/L F [facility] Rem[facility] AST [Catalytic activity/Vol] 29 [iU]/d Normal 5 - 43 Int._Unit/L [facility] Bilirubin [Mass/Vol] 0.7 mg/dL Normal 0.0 - 1 .1 mg/dL [facility] Calcium [Mass/Vol] 9.1 mg/dL Normal 8.9 - 11. 1 mg/dL [facility] Carcinoembryonic Ag [Mass/Vol] 1.7 ng/mL Invalid Interpretation Code [facility] Chloride [Moles/Vol] 102 mmol/L Normal 101 - 1 11 mmol/L [facility] CO2 [Moles/Vol] 28 mmol/L Normal 21 - 31 mmol/L [facility] Creatinine [Mass/Vol] 1.4 mg/dL High 0.5 - 1.3 mg/dL [facility] GFR/1.73 sq M.predicted among blacks MDRD (S/P/Bld) [Vol rate/Area] mL/min/1.73 m2 Normal >=59mL/min/1. 73 m2 [facility] Chem S GFR/1.73 sq M.predicted among non-blacks MDRD (S/P/Bld) [Vol rate/Area] 50 mL/min/1.73 m2 Low >=59mL/min/1. 73 m2 [facility] Chem S Globulin (S) [Mass/Vol] 3.1 g/dL Normal 1.4 - 4.0 gm/dL [facility] Glucose [Mass/Vol] 216 mg/dL High 55 - 199 mg/dL [facility] Potassium [Moles/Vol] 3.6 mmol/L Normal 3.5 - 5.3 mmol/L [facility] Protein [Mass/Vol] 7.1 g/dL Normal 6.0 - 7.8 gm/dL [facility] Sodium [Moles/Vol] 138 mmol/L Normal 135 - 145 mmol/L [facility] Urea nitrogen [Mass/Vol] 20 mg/dL Normal 5 - 21 mg/d L [facility] Urea nitrogen/Creatinine [Mass ratio] 14 mg/mg Normal 10 - 20 [facility] HEMATOLOGYOrdered By: SYSTEM SYSTEM on 12-27-2021 Basophils/100 WBC (Bld) 1.4 % Normal 0.0 - 2.0 % [facility]eAutoSS Basophils/Leukocytes Auto (B ld) [Pure # fraction] 0.1 E9/L Normal 0.0 - 0.2 E9/L [facility] Eosinophils/100 WBC (Bld) 0.8 % Normal 0.0 - 8.0 % [facility]AutoSS Eosinophils/Leukocytes Auto (Bld) [Pure # fraction] 0.1 E9/L Normal 0.0 - 0.5 E9/L [facility] HemeAutoS S Lymphocytes/100 WBC (Bld) 9.3 % Low 14.0 - 50. 0 % [facility]eAutoSS Lymphocytes/Leukocytes Auto (Bld) [Pure # fraction] 0.7 E9/L Low 1.0 - 4.0 E9/L [facility] HemeAutoS S Monocytes/100 WBC (Bld) 4.0 % Normal 4.0 - 14.0 % [facility]eAutoSS Monocytes/Leukocytes Auto (B ld) [Pure # fraction] 0.3 E9/L Normal 0.2 - 1.0 E9/L [facility] Neutrophils/100 WBC (Bld) 84.5 % High 36.0 - 75. 0 % [facility]Auto[facility] Neutrophils/Leukocytes Auto (Bld) [Pure # fraction] 6.5 E9/L Normal 2.0 - 7.5 E9/L [facility]eAutoS S HEMATOLOGYOrdered By: Edda Magana on 12-27-2021 Erythrocyte distribution wid th (RBC) [Ratio] 14.5 % High 10.9 - 14.2 % [facility]eAutoSS Hematocrit (Bld) [Volume fraction] 43.0 % Normal 37.7 - 49.0 % [facility] Hemoglobin (Bld) [Mass/Vol] 15.1 g/dL Normal 13.5 - 1 7.5 gm/dL [facility]eAutoSS MCH (RBC) [Entitic mass] 29.3 pg Normal 27.0 - 34.0 pg [facility] MCHC (RBC) [Mass/Vol] 35.1 g/dL Normal 31.4 - 36.0 gm /dL [facility] MCV (RBC) [Entitic vol] 83.5 fL Normal 80.0 - 100.0 fL [facility] Platelet mean volume (Bld) [Entitic vol] 8.7 fL Normal 6.4 - 10.8 fL [facility] Platelets (Bld) [#/Vol] 228.0 E9/L Normal 150.0 - 500. 0 E9/L [facility] RBC (Bld) [#/Vol] 5.2 E12/L Normal 4.3 - 5.9 E12/L [facility]eAutoSS WBC corrected for nucl RBC A uto (Bld) [#/Vol] 7.7 E9/L Normal 4.0 - 11.0 E9/L [facility]eAutoSS Covid-19 PCR (CVDTBH)on SARS-CoV-2 (COVID-19) RNA KELLY+probe Ql (Unsp spec) Detected Critically abnormal NOT DETECTED [facility] Comment on above: Result Comment: This test is not yet approved or cleared by the [place] FDA. When there are no FDA-approved or cleared tests available, and other criteria are met, FDA can make tests available under an emergency access mechanism called an Emergency Use Authorization (EUA). The EUA for this test is supported by the [place] Supervisor of Health and Human Service's (HHS's) declaration that circumstances exist to justify the emergency use of in vitro diagnostics for the detection and/or diagnosis of the virus that causes COVID-19. This EUA will remain in effect (meaning this test can be used) for the duration of the COVID-19 declaration justifying emergency of IVDs, unless it is terminated or revoked by FDA (after which the test may no longer be used). Performed By: #### C VDTB #### [facility] [address] [place] [address] Dr. Kayli Perez INFLUENZA A AND B AGon 12-14 [facility] SEE BELOW Normal [facility] Comment on above: Result Comment: Nega tive for Flu A protein angiten. Infection due to Flu A cannot be ruled out. Flu A angiten in the sample may be below the detection limit of the test. Performed By: #### I NFLUAB #### [facility] [address] [place] [address] Dr. [facility] Normal [facility] Comment on above: Result Comment: Nega tive for Flu B protein antigen. Infection due to Flu B cannot be ruled out. Flu B antigen in the sample may be below the detection limit of the test. Performed By: #### I NFLUAB #### [facility] [address] [place] [address] Dr. Kayli Perez INFLUENZA A AG Negative Normal NEGATIVE SEE COMMENT [facility] Comment on above: Performed By: #### I NFLUAB #### [facility] [address] [place] [address] Dr. Kayli Perez INFLUENZA B AG Negative Normal NEGATIVE SEE COMMENT [facility] Comment on above: Performed By: #### I NFLUAB #### [facility] [address] [place], [place] [address] Dr. Kayli Perez INTERNAL CONTROLS Within Normal Limits Normal Wi thin Normal Limits [facility] Comment on above: Performed By: #### I NFLUAB #### [facility] [address] [place], [place] [address] Dr. Kayli Perez CHEMISTRYOrdered By: Christina Haines on 11-28-2021 INR POC FT 2.5 [facility] PT POC FT 30.3 s High 10.8 - 13.6 second(s) [facility] CHEMISTRYOrdered By: Parisa Hyde on 10-13-2021 INR POC FT 2.4 [facility] PT POC FT 28.9 s High 10.8 - 13.6 second(s) [facility] CHEMISTRYOrdered By: Shayy Cain on 10-03-2021 INR POC FT 2.6 [facility] PT POC FT 31.6 s High 10.8 - 13.6 second(s) [facility] CHEMISTRYOrdered By: SYSTEM SYSTEM on 06-23-2021 Albumin [Mass/Vol] 3.8 g/dL Normal 3.3 - 5.0 gm/dL [facility] Albumin/Globulin [Mass ratio] 1.3 {ratio} Normal 1.1 - 2.2 [facility] ALP [Catalytic activity/Vol] 95 [iU]/d Normal 21 - 98 Int._Unit/L [facility] ALT No additional P-5'-P [Catalytic activity/Vol] 25 [iU]/d Normal 6 - 46 Int._Unit/L [facility] Anion gap [Moles/Vol] 11 mmol/L Normal 6 - 16 mEq/L [facility] AST [Catalytic activity/Vol] 23 [iU]/d Normal 5 - 43 Int._Unit/L [facility] Bilirubin [Mass/Vol] 0.7 mg/dL Normal 0.0 - 1 .1 mg/dL [facility] Calcium [Mass/Vol] 9.3 mg/dL Normal 8.9 - 11. 1 mg/dL [facility] Carcinoembryonic Ag [Mass/Vol] 1.7 ng/mL Invalid Interpretation Code [facility] Chloride [Moles/Vol] 104 mmol/L Normal 101 - 1 11 mmol/L [facility] CO2 [Moles/Vol] 25 mmol/L Normal 21 - 31 mmol/L [facility] Creatinine [Mass/Vol] 1.2 mg/dL Normal 0.5 - 1.3 mg/dL [facility] GFR/1.73 sq M.predicted among blacks MDRD (S/P/Bld) [Vol rate/Area] mL/min/1.73 m2 Normal >=59mL/min/1. 73 m2 [facility] Chem S GFR/1.73 sq M.predicted among non-blacks MDRD (S/P/Bld) [Vol rate/Area] 60 mL/min/1.73 m2 Normal >=59mL/min/1. 73 m2 [facility] Chem S Globulin (S) [Mass/Vol] 3.0 g/dL Normal 1.4 - 4.0 gm/dL [facility] Glucose [Mass/Vol] 124 mg/dL Normal 55 - 199 mg/dL [facility] Potassium [Moles/Vol] 3.9 mmol/L Normal 3.5 - 5.3 mmol/L [facility] Protein [Mass/Vol] 6.8 g/dL Normal 6.0 - 7.8 gm/dL [facility] Sodium [Moles/Vol] 136 mmol/L Normal 135 - 145 mmol/L [facility] Urea nitrogen [Mass/Vol] 14 mg/dL Normal 5 - 21 mg/d L [facility] Urea nitrogen/Creatinine [Mass ratio] 12 mg/mg Normal 10 - 20 [facility] HEMATOLOGYOrdered By: SYSTEM SYSTEM on 06-23-2021 Basophils/100 WBC (Bld) 0.3 % Normal 0.0 - 2.0 % [facility] Basophils/Leukocytes Auto (B ld) [Pure # fraction] 0.0 E9/L Normal 0.0 - 0.2 E9/L [facility] Eosinophils/100 WBC (Bld) 2.0 % Normal 0.0 - 8.0 % [facility] Eosinophils/Leukocytes Auto (Bld) [Pure # fraction] 0.1 E9/L Normal 0.0 - 0.5 E9/L [facility] S Lymphocytes/100 WBC (Bld) 13.1 % Low 14.0 - 50. 0 % [facility] Lymphocytes/Leukocytes Auto (Bld) [Pure # fraction] 0.8 E9/L Low 1.0 - 4.0 E9/L [facility] S Monocytes/100 WBC (Bld) 7.7 % Normal 4.0 - 14.0 % [facility] Monocytes/Leukocytes Auto (B ld) [Pure # fraction] 0.5 E9/L Normal 0.2 - 1.0 E9/L [facility] Neutrophils/100 WBC (Bld) 76.9 % High 36.0 - 75. 0 % [facility] Neutrophils/Leukocytes Auto (Bld) [Pure # fraction] 4.8 E9/L Normal 2.0 - 7.5 E9/L [facility] S HEMATOLOGYOrdered By: Tracie Cool on 06-23-2021 Erythrocyte distribution wid th (RBC) [Ratio] 14.5 % High 10.9 - 14.2 % [facility] Hematocrit (Bld) [Volume fraction] 42.2 % Normal 37.7 - 49.0 % [facility] Hemoglobin (Bld) [Mass/Vol] 14.5 g/dL Normal 13.5 - 1 7.5 gm/dL [facility] MCH (RBC) [Entitic mass] 29.6 pg Normal 27.0 - 34.0 pg [facility] MCHC (RBC) [Mass/Vol] 34.5 g/dL Normal 31.4 - 36.0 gm /dL [facility] MCV (RBC) [Entitic vol] 85.9 fL Normal 80.0 - 100.0 fL [facility] Platelet mean volume (Bld) [Entitic vol] 9.2 fL Normal 6.4 - 10.8 fL [facility] Platelets (Bld) [#/Vol] 196.0 E9/L Normal 150.0 - 500. 0 E9/L [facility] RBC (Bld) [#/Vol] 4.9 E12/L Normal 4.3 - 5.9 E12/L [facility] WBC corrected for nucl RBC A uto (Bld) [#/Vol] 6.3 E9/L Normal 4.0 - 11.0 E9/L [facility] CHEMISTRYOrdered By: SYSTEM SYSTEM on 06-14-2021 Albumin [Mass/Vol] 3.9 g/dL Normal 3.3 - 5.0 gm/dL [facility] Albumin/Globulin [Mass ratio] 1.4 {ratio} Normal 1.1 - 2.2 [facility] ALP [Catalytic activity/Vol] 90 [iU]/d Normal 21 - 98 Int._Unit/L [facility] ALT No additional P-5'-P [Catalytic activity/Vol] 26 [iU]/d Normal 6 - 46 Int._Unit/L [facility] Anion gap [Moles/Vol] 14 mmol/L Normal 6 - 16 mEq/L [facility] AST [Catalytic activity/Vol] 24 [iU]/d Normal 5 - 43 Int._Unit/L [facility] Bilirubin [Mass/Vol] 0.8 mg/dL Normal 0.0 - 1 .1 mg/dL [facility] Calcium [Mass/Vol] 9.2 mg/dL Normal 8.9 - 11. 1 mg/dL [facility] Carcinoembryonic Ag [Mass/Vol] 1.8 ng/mL Invalid Interpretation Code [facility] Chloride [Moles/Vol] 101 mmol/L Normal 101 - 1 11 mmol/L [facility] CO2 [Moles/Vol] 24 mmol/L Normal 21 - 31 mmol/L [facility] Creatinine [Mass/Vol] 1.4 mg/dL High 0.5 - 1.3 mg/dL [facility] GFR/1.73 sq M.predicted among blacks MDRD (S/P/Bld) [Vol rate/Area] mL/min/1.73 m2 Normal >=59mL/min/1. 73 m2 [facility] Chem S GFR/1.73 sq M.predicted among non-blacks MDRD (S/P/Bld) [Vol rate/Area] 50 mL/min/1.73 m2 Low >=59mL/min/1. 73 m2 [facility] S Globulin (S) [Mass/Vol] 2.8 g/dL Normal 1.4 - 4.0 gm/dL [facility] Glucose [Mass/Vol] 159 mg/dL Normal 55 - 199 mg/dL [facility] Potassium [Moles/Vol] 3.8 mmol/L Normal 3.5 - 5.3 mmol/L [facility] Protein [Mass/Vol] 6.7 g/dL Normal 6.0 - 7.8 gm/dL [facility] Sodium [Moles/Vol] 135 mmol/L Normal 135 - 145 mmol/L [facility] Urea nitrogen [Mass/Vol] 15 mg/dL Normal 5 - 21 mg/d L [facility] Urea nitrogen/Creatinine [Mass ratio] 11 mg/mg Normal 10 - 20 [facility] HEMATOLOGYOrdered By: [employer] SYSTEM on 06-14-2021 Basophils/100 WBC (Bld) 0.3 % Normal 0.0 - 2.0 % [facility] Basophils/Leukocytes Auto (B ld) [Pure # fraction] 0.0 E9/L Normal 0.0 - 0.2 E9/L [facility] Eosinophils/100 WBC (Bld) 1.2 % Normal 0.0 - 8.0 % [facility] Eosinophils/Leukocytes Auto (Bld) [Pure # fraction] 0.1 E9/L Normal 0.0 - 0.5 E9/L [facility] S Lymphocytes/100 WBC (Bld) 12.6 % Low 14.0 - 50. 0 % [facility] Lymphocytes/Leukocytes Auto (Bld) [Pure # fraction] 0.8 E9/L Low 1.0 - 4.0 E9/L [facility] S Monocytes/100 WBC (Bld) 6.9 % Normal 4.0 - 14.0 % [facility] Monocytes/Leukocytes Auto (B ld) [Pure # fraction] 0.4 E9/L Normal 0.2 - 1.0 E9/L [facility] Neutrophils/100 WBC (Bld) 79.0 % High 36.0 - 75. 0 % [facility] Neutrophils/Leukocytes Auto (Bld) [Pure # fraction] 4.8 E9/L Normal 2.0 - 7.5 E9/L [facility] S HEMATOLOGYOrdered By: Chen Kong on 06-14-2021 Erythrocyte distribution wid th (RBC) [Ratio] 14.7 % High 10.9 - 14.2 % [facility] Hematocrit (Bld) [Volume fraction] 42.5 % Normal 37.7 - 49.0 % [facility] Hemoglobin (Bld) [Mass/Vol] 14.7 g/dL Normal 13.5 - 1 7.5 gm/dL [facility] MCH (RBC) [Entitic mass] 29.8 pg Normal 27.0 - 34.0 pg [facility] MCHC (RBC) [Mass/Vol] 34.5 g/dL Normal 31.4 - 36.0 gm /dL [facility] MCV (RBC) [Entitic vol] 86.5 fL Normal 80.0 - 100.0 fL [facility] Platelet mean volume (Bld) [Entitic vol] 9.0 fL Normal 6.4 - 10.8 fL [facility] Platelets (Bld) [#/Vol] 189.0 E9/L Normal 150.0 - 500. 0 E9/L [facility] RBC (Bld) [#/Vol] 4.9 E12/L Normal 4.3 - 5.9 E12/L [facility] WBC corrected for nucl RBC A uto (Bld) [#/Vol] 6.1 E9/L Normal 4.0 - 11.0 E9/L [facility] CNPNon 12-20-2020 CNPN Telephone ([facility]ISITION[facility]ais) SHAD RODRIGUEZ ([id number]) 1950 M Date Time Provider Department 12/20/20 NANCI FUNES During your visit today, we recorded the following information about you: Nanci Funes MD 12/20/2020 1:49 PM Signed Patient consented for study? Yes IRB NO.: #[id number] STUDY TITLE: Reducing INfection at the Surgical SitE with Antibiotic Irrigation during Ventral Hernia Repair (RINSE Trial) Called for follow up. No issues. Incision healed well- no drainage, pus, erythema, fevers. -Follow up at 1 yr Allergies As of Date: 12/20/2020 Noted Allergy Reaction PENICILLINS 06/22/2015 16 - Unknown RAGWEED 12/05/2015 12 - Shortness of Breath Date Reviewed: 09/05/2020 Reviewed by: Cydney Koch APRN.ACCESS CONTROL OFFICER - Fully Assessed Reason for Visit: Patient Update [1234] Prescriptions as of 12/20/2020 - lisinopril 2.5 mg tablet Take 1 tablet by mouth once daily. - amLODIPine (NORVASC) 2.5 mg tablet Take 1 tablet by mouth once daily. - atorvastatin (LIPITOR) 10 mg tablet Take 1 tablet by mouth once daily. - acetaminophen (TYLENOL) 500 mg tablet Take 2 tablets by mouth every 6 hours as needed for pain. - calcium carbonate (TUMS) 500 mg chew Take 1 tablet by mouth three times daily as needed (GERD). - enoxaparin (LOVENOX) 100 mg/mL syrg Inject 0.9 mL subcutaneously q 24 HR. - warfarin (COUMADIN) 4 mg tablet Take 1 tablet by mouth daily as directed. - oxyCODONE IR (ROXICODONE) 5 mg immediate release tablet Take 1 tablet by mouth every 6 hours as needed. - magnesium hydroxide (MOM) 400 mg/5 mL suspension Take 30 mL by mouth once daily as needed. - ipratropium-albuterol (DUONEB) 0.5 mg-3 mg(2.5 mg base)/3 mL nebu Inhale 3 mL as instructed every 4 hours as needed for wheezing/shortness of breath. - guaiFENesin (MUCINEX) 600 mg 12 hr tablet Take 1 tablet by mouth every 12 hours as needed (help with congestion). - docusate sodium (COLACE) 100 mg capsule Take 1 capsule by mouth twice daily. While taking narcotic pain medication - glipiZIDE (GLUCOTROL XL) 2.5 mg 24 hr tablet Take 2.5 mg by mouth once daily. - loperamide (IMODIUM) 2 mg cap(s) TAKE 2 CAPSULES BY MOUTH BEFORE MEALS AND AT BEDTIME - pantoprazole DR (PROTONIX) 40 mg tablet Take 1 tablet by mouth DAILY (6 AM). Meds Comments as of 01/11/2016: Pt unsure of medication list. 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 Essential hypertension [I10] 01/11/2016 Type 2 diabetes mellitus without complication, *01/11/2016 Chronic anticoagulation [Z79.01] 01/11/2016 CKD (chronic kidney disease) [N18.9] 01/11/2016 Factor V Leiden (HCC) [D68.51] 01/11/2016 Pulmonary embolus (HCC) [I26.99] 01/30/2016 Anticoagulation management encounter [Z51.81, Z*01/31/2016 Postoperative pain [G89.18] 02/03/2016 Postoperative ileus (HCC) [K91.89, K56.7] 02/03/2016 02/03/2016 Hypokalemia [E87.6] 02/03/2016 02/03/2016 Hypoalbuminemia [E88.09] 02/03/2016 Hyponatremia [E87.1] 02/03/2016 03/16/2016 Hypocalcemia [E83.51] 02/03/2016 02/03/2016 Hypoproteinemia (HCC) [E77.8] 02/03/2016 Dehydration [E86.0] 02/28/2016 02/28/2016 Acute kidney injury superimposed on CKD (HCC) [*02/28/2016 03/16/2016 Supratherapeutic INR [R79.1] 02/28/2016 02/28/2016 High output ileostomy (HCC) [R19.8, Z93.2] 02/28/2016 02/28/2016 Hypomagnesemia [E83.42] 02/28/2016 02/28/2016 ADAM (acute kidney injury) (HCC) [N17.9] 03/11/2016 History of pulmonary embolism [Z86.711] 03/11/2016 SUMMARY 03/11/2016 H/O: HTN (hypertension) [Z86.79] 07/11/2016 H/O diabetes mellitus [Z86.39] 07/11/2016 Stage 3 chronic kidney disease [N18.30] 07/11/2016 Attention to ileostomy (HCC) [Z43.2] 07/25/2016 07/25/2016 Chronic systolic heart failure (HCC) [I50.22] 10/10/2018 Coronary artery calcification [I25.10, I25.84] 01/02/2019 Ventral hernia [K43.9] 08/12/2020 08/17/2020 Obesity, Class I, BMI 30-34.9 [E66.9] 08/17/2020 Post-operative state [Z98.890] 08/19/2020 Encounter Status:Closed by NANCI FUNES on 12/20/20 Normal [facility] Bernadette 09-05-2020 CNOV Office Visit (GENSARAHIN ) SHAD RODRIGUEZ ([id number]) 1950 M Date Time Provider Department 09/05/20 11:00 AM CYDNEY KOCH During your visit today, we recorded the following information about you: Temperature Pulse Blood pressure Weight 97.7 degrees 77/minute 139/84 86.3 kg Height 1.702 m Binta Matos Ma 09/05/2020 11:04 AM Signed What is the reason for your visit today? Post op Who is your referring physician? Dr. Amaya Are you having poor oral intake? NO Have you had unintentional weight loss of 15 lbs/7 Kg in the last 3-6 months? NO Bowels: regular Wound: clean AND dry Temperature: No Drains: No Cydney Koch APRN.CNP 09/05/2020 11:19 AM Signed [facility] Clinic Date: 09/05/2020 Shad Rodriguez, 69 year old CHIEF COMPLAINT: Patient presents with: Post Op HPI: Shad Rodriguez presents for follow up from surgery. Here for followup after Open incisional hernia repair with mesh and resection of skin on 08/12/[address]David Amaya. Doing well overall, and post operative recovery has been uncomplicated. On exam, the incision(s) is/are doing well and there is no evidence of infection or hernia recurrence. Patient is pleased with repair. Plan for followup in [address] scan or sooner if needed. Patient complaints: None He denies pain, drainage, redness around wound, difficulty voiding and constipation. Fever/Chills, Abdominal Pain: Denies Back Pain: Denies Increased Heart Rate: Denies Shortness of Breath: Denies Cough / Wheezing: Denies Calf/Thigh pain or swelling: Denies Decreased Urine Output: Denies Nausea/Vomiting: Denies Diarrhea: Denies Surgery Date and Procedure: 08/12/20 1. Open right myofascial advancement flap. 2. Open left myofascial advancement flap. 3. Repair of incisional hernia. 4. Implantation of 30 x 30 cm of Prolene mesh. 5. Resection of skin and subcutaneous tissue. 6. Transverse abdominis block with bupivicaine Pathology: N/A Current Diet: Resumed presurgical diet Present Activity level: Household activities Current Medications: lisinopril 2.5 mg tablet Take 1 tablet by mouth once daily. amLODIPine (NORVASC) 2.5 mg tablet Take 1 tablet by mouth once daily. atorvastatin (LIPITOR) 10 mg tablet Take 1 tablet by mouth once daily. acetaminophen (TYLENOL) 500 mg tablet Take 2 tablets by mouth every 6 hours as needed for pain. calcium carbonate (TUMS) 500 mg chew Take 1 tablet by mouth three times daily as needed (GERD). enoxaparin (LOVENOX) 100 mg/mL syrg Inject 0.9 mL subcutaneously q 24 HR. warfarin (COUMADIN) 4 mg tablet Take 1 tablet by mouth daily as directed. oxyCODONE IR (ROXICODONE) 5 mg immediate release tablet Take 1 tablet by mouth every 6 hours as needed. magnesium hydroxide (MOM) 400 mg/5 mL suspension Take 30 mL by mouth once daily as needed. ipratropium-albuterol (DUONEB) 0.5 mg-3 mg(2.5 mg base)/3 mL nebu Inhale 3 mL as instructed every 4 hours as needed for wheezing/shortness of breath. guaiFENesin (MUCINEX) 600 mg 12 hr tablet Take 1 tablet by mouth every 12 hours as needed (help with congestion). docusate sodium (COLACE) 100 mg capsule Take 1 capsule by mouth twice daily. While taking narcotic pain medication glipiZIDE (GLUCOTROL XL) 2.5 mg 24 hr tablet Take 2.5 mg by mouth once daily. loperamide (IMODIUM) 2 mg cap(s) TAKE 2 CAPSULES BY MOUTH BEFORE MEALS AND AT BEDTIME pantoprazole DR (PROTONIX) 40 mg tablet Take 1 tablet by mouth DAILY (6 AM). REVIEW OF SYSTEMS: CONSTITUTIONAL: Patient denies fevers, chills, sweats CARDIOVASCULAR: Patient denies chest pains, palpitations RESPIRATORY: No dyspnea on exertion, no wheezing or cough. GI: see HPI MUSCULOSKELETAL: No new myalgias or arthralgias. DERMATOLOGIC: Patient denies any rashes or skin changes. Incision(s) ok. PHYSICAL EXAM: BP 139/84 Pulse 77 Temp (Src) 97.7 (Tympanic) Ht 5' 7 (1.70m) Wt 190 lb 3.2 oz (86.3kg) BMI 29.78 kg/(m2). GENERAL: No apparent distress. Pt is alert and oriented x3. LUNGS: Clear to auscultation, no wheezing, no dyspnea HEART: Regular rate and rhythm without murmur. No leg edema ABDOMEN: Soft, nontender, and nondistended. Positive bowel sounds. EXTREMITIES: Without any cyanosis, clubbing, rash, lesions or edema. INCISIONS: Clean, dry, intact, well approximated. No s/s of infection. PLAN: Post-op patient instructions were reviewed with the patient. I have explained to Mr. Rodriguez that he may return to normal activity with the following restrictions: No heavy lifting, pushing, or pulling greater than 20 lbs for 4 weeks post-operatively. I have encouraged him to contact me at any time with any questions or concerns that may arise. Plan for followup in [address] scan or sooner if needed. Randomized control trial: RINSE/FIXATION Cydney Koch APRN.ACCESS CONTROL OFFICER September 04, (more content not included)... Normal [facility] 08-19-2020 [facility] HNO ID: [id number] Author: Chaplain Rosa Service: Spiritual Care Author Type: Type: Allied Health Filed: 08/19/2020 12:24 PM Note Text: SPIRITUALCARE Spiritual Care Visit- Brief Note Name: Shad Rodriguez Date: August 19, 2020 Notes: I visited pt while on my rounds on unit H-51. Pt informed me that he was to be discharged at any time. 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 Our visit was ended by prayer at the pt's request. Director Of Infection Prevention Signature: Chaplain ROSA To contact the Spiritual Care Department: Please call [phone] or Page the On-Call Director Of Infection Prevention at pager [phone] Thank you for the opportunity to be of service. This is an electronically created document. IF PRINTED, PLEASE DO NOT REMOVE FROM THE CHART OR MODIFY PRINTED COPY. Normal [facility] Basic Metabolic Panlon 08-19 Anion gap [Moles/Vol] 9 mmol/L Normal 9-18 [facility] Comment on above: Performed By: #### P T, MG1, PHOS, BMP ####[facility], [place] [phone] Calcium [Mass/Vol] 8.9 mg/dL Normal 8.5-10.2 [facility] Comment on above: Performed By: #### P T, MG1, PHOS, BMP ####[facility] [address], [place] [phone] Chloride [Moles/Vol] 100 mmol/L Normal 97-105 [facility] [place] [facility] Comment on above: Performed By: #### P T, MG1, PHOS, BMP ####[facility] [address] [place], [place] [phone] CO2 [Moles/Vol] 25 mmol/L Normal 22-30 [facility] Comment on above: Performed By: #### P Kailyn MGMERNA Butler, KOBI ####[facility], [place] [phone] Creatinine [Mass/Vol] 1.13 mg/dL Normal 0.73-1.22 [facility] Comment on above: Performed By: #### P T MG1MERNA, BMP ####[facility] [place], [place] [phone] eGFR- Amer. >60 Normal [facility] Comment on above: Performed By: #### P T MGMERNA Butler, KOBI ####[facility] [place], [place] [phone] eGFR-All Other Races >60 Normal [facility] [place] [facility] Comment on above: Result Comment: eGFR (Estimated GFR) Units of measure: mL/min/1.73 meters squared eGFR is derived from the reexpressed MDRD Study equation using the following parameters: serum creatinine, age, gender and race. The creatinine assay has been calibrated to be traceable to IDMS. An eGFR <60 mL/min/1.73m2 for >3 months is consistent with chronic kidney disease. Refer to KDOQI guidelines for clinical interpretation. In patients with unstable renal function, e.g. those with acute kidney injury, the eGFR may not accurately reflect actual GFR. Performed By: #### P T MG1 PHOUnruly, BMP ####[facility] [place], [place] [phone] Glucose [Mass/Vol] 117 mg/dL High 74-99 [facility] Comment on above: Result Comment: The [place] Diabetes Association (ADA) provides guidance for cutoff values for fasting glucose and random glucose. The ADA defines fasting as no caloric intake for at least 8 hours. Fasting plasma glucose results between 100 to 125 mg/dL indicate increased risk for diabetes (prediabetes). Fasting plasma glucose results greater than or equal to 126 mg/dL meet the criteria for diagnosis of diabetes. In the absence of unequivocal hyperglycemia, results should be confirmed by repeat testing. In a patient with classic symptoms of hyperglycemia or hyperglycemic crisis, random plasma glucose results greater than or equal to 200 mg/dL meet the criteria for diagnosis of diabetes. Reference: Standards of Medical Care in Diabetes 2016, [place] Diabetes Association. Diabetes Care. 2016.39(Suppl 1). Performed By: #### P T, MG1, PHOS, BMP ####[facility] [place] [address] [phone] Potassium [Moles/Vol] 4.2 mmol/L Normal 3.7-5.1 [facility] Comment on above: Performed By: #### P T, MG1, PHOS, BMP ####[place] [address] [place], [place] [phone] Sodium [Moles/Vol] 134 mmol/L Low 136-144 [facility] Comment on above: Performed By: #### P T, MG1, PHOS, BMP ####[facility] [place], [place] [phone] Urea nitrogen [Mass/Vol] 21 mg/dL Normal 9-24 [facility] Comment on above: Performed By: #### P T, MG1, PHOS, BMP ####[facility] [place] [address] [phone] CASE MANAGEMon 08-19-2020 CASE MANAGEM HNO ID: [id number] Author: Rosaline Keating RN Service: Case Management Author Type: Registered Nurse Type: Care Mgt Progress Note Filed: 08/19/2020 10:15 AM Note Text: CARE MANAGEMENT PROGRESS NOTE SERVICE DATE: 08/19/2020 SERVICE TIME: 10:00 AM LOS: 7 days Admission Date: 08/12/2020 DISCHARGE ARRANGEMENT Discharge Arrangement: snf facility Was an expedited discharge program used?: No CAREGIVER ASSESSMENT: Caregiver is ready, willing and able to meet the patient's needs as recommended by the inter-professional team:: Yes Does the patient have an acute stroke diagnosis, or has the patient had a stroke during this admission?: No Patient's transition needs and plan for meeting these needs: SNF [facility] HANDOFF COMMUNICATION: Handoff to: Other Caregiver Other Caregiver Name/Phone: Cynthia Aguila CNP summary of care sent . [facility] ([facility] ) p# [phone] and via [employer] TRANSPORTATION ARRANGEMENTS: Transportation Arrangements: Car Discharge Information Row Name Admission (Current) from 08/12/2020 in [place] [address] [email or web address] Needs Prior to Discharge: Ready for Discharge Patient d/c ready to [facility] . Patient to transport via car with family/friend .Patient aware of plan. Bedside RN aware of plan and provided number to call report [phone] CM spoke with nursing home director and updated on plan of care, confirmed facility ready for the patient arrival today p# [phone]. 7000 and DC instructions sent to [facility] via [employer]-Generator and are in DC packet. DC packet in chart to go with patient. SIGNATURE: Rosaline Keating RN PATIENT NAME: Shad Rodriguez DATE: August 19, 2020 TIME: 9:59 AM PAGER/CONTACT #: [phone] Normal [facility] Magnesiumon 08-19-2020 Magnesium [Mass/Vol] 2.1 mg/dL Normal 1.7-2.3 [facility] [place] [facility] Comment on above: Performed By: #### P T, MG1, PHOS, BMP ####[facility] [address] [place], [place] [phone] Phosphoruson 08-19-2020 Phosphate [Mass/Vol] 3.4 mg/dL Normal 2.7-4.8 [facility] [place] [facility] Comment on above: Performed By: #### P T, MG1, PHOS, BMP ####[facility] [address] [place], [place] [phone] Protimeon 08-19-2020 PT INR 1.2 Normal 0.9-1.3 [facility] Comment on above: Result Comment: Alexandra min K Antagonist (VKA) Therapeutic Range: INR 2 to 3 (Target INR of 2.5) Note: For patients treated with VKA drugs, such as warfarin, the [place] [employer] Physicians 2012 Guideline recommends a therapeutic INR range of 2 to 3 (target INR of 2.5). This recommendation includes high-risk patients with antiphospholipid syndrome with previous arterial or venous thromboembolism, current-generation mechanical or bioprosthetic aortic heart valve replacement. Note: Patients with mechanical aortic valve replacement and additional risk factors for thromboembolic events (atrial fibrillation, previous thromboembolism, LV dysfunction, hypercoagulable conditions) or an older generation mechanical AVR (i.e., ball in-Cage) or any mechanical MVR should have a INR therapeutic range of 2.5 to 3.5 (target INR of 3). Tuan GH, et al. Chest 2012, 141:7S-47S Apryl RA, et al. [facility] 2017, 70: 252-289 Performed By: #### P T, MG1, PHOS, BMP ####[address] [phone] PT Sec 12.3 sec Normal 9.7-13.0 [facility] Comment on above: Performed By: #### P T, MG1, PHOS, BMP ####[facility] [place], [place] [phone] Basic Metabolic Panlon 08-18 Anion gap [Moles/Vol] 9 mmol/L Normal 9-18 [facility] Comment on above: Performed By: #### B MP, MG1, PHOS, CBC, PT ####[facility], [place] [phone] Calcium [Mass/Vol] 9.0 mg/dL Normal 8.5-10.2 [facility] Comment on above: Performed By: #### B MP, MG1, PHOS, CBC, PT ####[facility] [place], [place] [phone] Chloride [Moles/Vol] 100 mmol/L Normal 97-105 [facility] [place] [facility] Comment on above: Performed By: #### B MP, MG1, PHOS, CBC, PT ####[facility] [place] [phone] CO2 [Moles/Vol] 27 mmol/L Normal 22-30 [facility] Comment on above: Performed By: #### B MP, MG1, PHOS, CBC, PT ####[place] [phone] Creatinine [Mass/Vol] 1.10 mg/dL Normal 0.73-1.22 [facility] Comment on above: Performed By: #### B MP, MG1, PHOS, CBC, PT ####[address] [phone] eGFR- Amer. >60 Normal [facility] Comment on above: Performed By: #### B MP, MG1, PHOS, CBC, PT ####[place] [phone] eGFR-All Other Races >60 Normal [facility] [place] [facility] Comment on above: Result Comment: eGFR (Estimated GFR) Units of measure: mL/min/1.73 meters squared eGFR is derived from the reexpressed MDRD Study equation using the following parameters: serum creatinine, age, gender and race. The creatinine assay has been calibrated to be traceable to IDMS. An eGFR <60 mL/min/1.73m2 for >3 months is consistent with chronic kidney disease. Refer to KDOQI guidelines for clinical interpretation. In patients with unstable renal function, e.g. those with acute kidney injury, the eGFR may not accurately reflect actual GFR. Performed By: #### B MP, MG1, PHOS, CBC, PT ####[address] [phone] Glucose [Mass/Vol] 119 mg/dL High 74-99 [facility] Comment on above: Result Comment: The [place] Diabetes Association (ADA) provides guidance for cutoff values for fasting glucose and random glucose. The ADA defines fasting as no caloric intake for at least 8 hours. Fasting plasma glucose results between 100 to 125 mg/dL indicate increased risk for diabetes (prediabetes). Fasting plasma glucose results greater than or equal to 126 mg/dL meet the criteria for diagnosis of diabetes. In the absence of unequivocal hyperglycemia, results should be confirmed by repeat testing. In a patient with classic symptoms of hyperglycemia or hyperglycemic crisis, random plasma glucose results greater than or equal to 200 mg/dL meet the criteria for diagnosis of diabetes. Reference: Standards of Medical Care in Diabetes 2016, [place] Diabetes Association. Diabetes Care. 2016.39(Suppl 1). Performed By: #### B MP, MG1, PHOS, CBC, PT ####[facility] [place], [place] [phone] Potassium [Moles/Vol] 4.0 mmol/L Normal 3.7-5.1 [facility] Comment on above: Performed By: #### B MP, MG1, PHOS, CBC, PT ####[facility] [address] [place], [place] [phone] Sodium [Moles/Vol] 136 mmol/L Normal 136-144 [facility] Comment on above: Performed By: #### B MP, MG1, PHOS, CBC, PT ####[facility] [address], [place] [phone] Urea nitrogen [Mass/Vol] 22 mg/dL Normal 9-24 [facility] Comment on above: Performed By: #### B MP, MG1, PHOS, CBC, PT ####[facility] [address] [place], [place] [phone] CASE MGT INIT ANABELLAjodie 2020 CASE MGT INIT ANABELLA HNO ID: [id number] Author: Rosaline Keating RN Service: Case Management Author Type: Registered Nurse Type: Care Mgt Initial Assessment Filed: 08/18/2020 3:53 PM Note Text: CARE MANAGEMENT PROGRESS NOTE SERVICE DATE: 08/18/2020 SERVICE TIME: 10:36 AM LOS: 6 days Needs Prior to Discharge: Discharge Transportation CM UPDATE Per Primary Team DC anticipated tomorrow [facility] . CM sent updated clinicals via E-Generator. CM spoke with [facility] in admitting who confirms they have bed available for patient to admit . CM requested 7000 to be completed , [facility] Nurse report number provided : [phone]. Ask for 200 gr nurse Patient request to transport with family/friends via car. Facility confirmed the patient can arrive via car. Patient transportation arranged for 10 AM tomorrow. SIGNATURE: Rosaline Keating RN PATIENT NAME: Shad Rodriguez DATE: August 18, 2020 TIME: 10:36 AM PAGER/CONTACT #: [phone] Normal [facility] CBCon 08-18-2020 Absolute nRBC <0.01 Normal <0.01 [facility] Comment on above: Performed By: #### B MP, MG1, PHOS, CBC, PT ####[facility] [place], [place] [phone] Erythrocyte distribution wid th (RBC) [Ratio] 13.5 % Normal 11.5-15.0 [facility] Comment on above: Performed By: #### B MP, MG1, PHOS, CBC, PT ####[facility] [place], [place] [phone] Hematocrit (Bld) [Volume fraction] 42.3 % Normal 3 9.0-51.0 [facility] Comment on above: Performed By: #### B MP, MG1, PHOS, CBC, PT ####[facility] [address], [place] [phone] Hemoglobin (Bld) [Mass/Vol] 13.5 g/dL Normal 13.0-17. 0 [facility] Comment on above: Performed By: #### B MP, MG1, PHOS, CBC, PT ####[facility], [place] [phone] MCH 28.3 pG Normal 26.0-34.0 [facility] Comment on above: Performed By: #### B MP, MG1, PHOS, CBC, PT ####[place] [address], [place] [phone] MCHC (RBC) [Mass/Vol] 31.9 g/dL Normal 30.5-36.0 [facility] Comment on above: Performed By: #### B MP, MG1, PHOS, CBC, PT ####[place] [address], [place] [phone] MCV (RBC) [Entitic vol] 88.7 fL Normal 80.0-100.0 [facility] Comment on above: Performed By: #### B MP, MG1, PHOS, CBC, PT ####[address], [place] [phone] Platelet mean volume (Bld) [Entitic vol] 10.2 fL Normal 9.0-12.7 [facility] Comment on above: Performed By: #### B MP, MG1, PHOS, CBC, PT ####[place] [address], [place] [phone] Platelets (Bld) [#/Vol] 219 10*3/uL Normal 150-400 [facility] Comment on above: Performed By: #### B MP, MG1, PHOS, CBC, PT ####[address], [place] [phone] RBC (Bld) [#/Vol] 4.77 10*6/uL Normal 4.20-6.00 [facility] Comment on above: Performed By: #### B MP, MG1, PHOS, CBC, PT ####[place] [address], [place] [phone] WBC (Bld) [#/Vol] 6.07 10*3/uL Normal 3.70-11.00 [facility] Comment on above: Performed By: #### B MP, MG1, PHOS, CBC, PT ####[facility] [address], [place] [phone] Magnesiumon 08-18-2020 Magnesium [Mass/Vol] 2.2 mg/dL Normal 1.7-2.3 [facility] [place] [facility] Comment on above: Performed By: #### B MP, MG1, PHOS, CBC, PT ####[facility] [address], [place] [phone] NUTRITIONon 08-18-2020 NUTRITION HNO ID: [id number] Author: Sandra Katz DTR Service: Nutrition Therapy Author Type: Edging Machine Catcher Type: Nutrition Filed: 08/18/2020 1:49 PM Note Text: NUTRITION THERAPY PREMIUM NOTE INTEREST CALCULATOR CLERK NOTE SERVICE DATE: 08/18/2020 SERVICE TIME: 950 Visit Type: Length of Stay Plan of Care: Follow-Up: Monitor weekly Nursing Admission Assessment Malnutrition Score: 0 Nutrition Intake: Diet Orders (From admission, onward) Start Ordered 08/17/20 0700 DIET GASTRO INTESTINAL START NOW Question Answer Comment Gastro Intestinal GI SOFT-FIBER CONTROLLED Food Consistency DENTAL SOFT 08/17/20 0646 08/13/20 0000 DIET SUPPLEMENTS START NOW Question Answer Comment Supplement 1 (19 years and up) ENSURE SURGERY VANILLA (SUB FOR IMPACT ADVANCED RECOVERY VANILLA) Supplement 1 Frequency THREE TIMES/DAY WITH MEALS Feeding instructions for nursing G2 is currently unavailable due to national shortage 08/12/20 1501 Average intake over: 3 days Average Supplement Intake (kcal): 0 kcal Average Supplement Intake (gm): 0 gm Average supplement intake over: 3 days (Patient is not consuming them and would like them discontinued.) Appetite: Fair GI Symptoms: None Anthropometrics: Body mass index is 32.26 kg/m?. Loss of lean body mass/visual muscle wasting: No Weight Change: Stable Food Preferences: The patient states he is eating slowly since his diet has been advanced. He denied any issues or conerns at this time. He is not consuming the nutritional supplements being sent. Will continue to monitor for meal tolerance. Billing Type: Routine Care/15 min Number of Increments: 1 SIGNATURE: Sandra Kazt DTR PATIENT NAME: Shad Rodriguez DATE: August 18, 2020 TIME: 1:49 PM PAGER: [phone] Normal [facility] [place] Phosphoruson 08-18-2020 Phosphate [Mass/Vol] 3.5 mg/dL Normal 2.7-4.8 [facility] [place] [facility] Comment on above: Performed By: #### B MP, MG1, PHOS, CBC, PT ####[facility], [place] [phone] Protimeon 08-18-2020 PT INR 1.0 Normal 0.9-1.3 [facility] Comment on above: Result Comment: Alexandra min K Antagonist (VKA) Therapeutic Range: INR 2 to 3 (Target INR of 2.5) Note: For patients treated with VKA drugs, such as warfarin, the [place] [employer]icians 2012 Guideline recommends a therapeutic INR range of 2 to 3 (target INR of 2.5). This recommendation includes high-risk patients with antiphospholipid syndrome with previous arterial or venous thromboembolism, current-generation mechanical or bioprosthetic aortic heart valve replacement. Note: Patients with mechanical aortic valve replacement and additional risk factors for thromboembolic events (atrial fibrillation, previous thromboembolism, LV dysfunction, hypercoagulable conditions) or an older generation mechanical AVR (i.e., ball in-Cage) or any mechanical MVR should have a INR therapeutic range of 2.5 to 3.5 (target INR of 3). Tuan GH, et al. Chest 2012, 141:7S-47S Arpyl RA, et al. [facility] 2017, 70: 252-289 Performed By: #### B MP, MG1, PHOS, CBC, PT ####[facility] [place], [place] [phone] PT Sec 11.2 sec Normal 9.7-13.0 [facility] Comment on above: Performed By: #### B MP, MG1, PHOS, CBC, PT ####[facility] [address] [place], [place] [phone] THERAPY NT 08-18-2020 THERAPY NT HNO ID: [id number] Author: Greg Gonzalez, PT Service: Physical Therapy Author Type: Physical Therapist Type: Therapy (PT/OT/Speech/Resp) Filed: 08/18/2020 4:05 PM Note Text: Physical Therapy Treatment SERVICE DATE: 08/18/2020 SERVICE TIME: 1526 to 1549 ROOM: [place] [address] Recommended Discharge Disposition: Outpatient Physical Therapy Recommended Discharge Disposition Comments: . 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 Anticipated Discharge Needs: Physical Assist at Home Physical Assist at Home for: Cleaning;Laundry;Meals;Stairs;Self Care;Shopping;Transportation Recommended Discharge Equipment: To Be Determined PT 6 Clicks Score: 24 Precautions/Activity Restrictions: Fall Risk;Lines/Tubes/Drains;Abdominal Current Hospital Course: s/p TAR for ventral hernia repair Reason for Hospital Admission: Pt admitted for scheduled procedure for ventral hernia repair Relevant Past Medical History: Asthma, HTN, T2DM, CKD3, PE/DVTs, factor V leiden on warfarin since 2015 Response to Therapy Interventions: Good participation in activities, Notable progression with functional activities/skills Physical Therapy Problem List: Education Deficit;Pain;Safety Deficits;Impaired Self Care;Decreased Activity Tolerance;Decreased Strength;Functional Mobility Impairment;Balance Impaired Treatment Interventions: Education;Self Care / Home Management;Energy Conservation Training;Joint Mobility;Strengthening;Functional Mobility Training;Balance Training;Neuromuscular Re-education;Pain Management Home Environment Patient Lives With: (pt planning to move into assisted living facility ) Assistance Available: PRN Entry To Home: Stairs;With Rail Number Of Stairs Into Home: 2 Number Of Stairs To Bed/Bath: 0 Tub/Shower Type: walk-in 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 Prior Functional Level: Within Functional Limits Prior Functional Level Comments: per pt, independent with mobility, no hx of falls Patient Report: Lets walk CURRENT FUNCTIONAL STATUS: Most recent performance Current Functional Mobility Assist Level Additional Information Rolling Minimal Assistance;Independent Supine to Sit Minimal Assistance;Independent Sit to Supine Scooting Independent Sit to Stand Independent Stand to Sit Independent Bed to Chair Contact Guard Assistance Bed To Chair Transfer Type: Stepping Bed To Chair Transfer Equipment: Wheeled Walker Toilet/Commode Gait Supervision Gait Device: Wheeled Walker (.) Gait Distance (feet): 500 Stairs Curb Step Car Transfer Blank pérez indicate activity not attempted General Deviations/Observations: Antalgic gait;Flexed trunk posture [facility]: 8: Walk 250 feet or more Learning/Educational Needs: Discharge Plan;Disease Process;Equipment;Family Education/Training;Functional Activities/Mobility;Pain Management;Plan of Care;Precautions;Rehabilitation Techniques and Procedures;Respiratory Function;Safety Goals for Plan of Care: Patient /Caregiver Goals: Go Home Goals: Patient will demonstrate understanding of importance of mobility during hospital stay and resolve all functional needs identified.;Patient will demonstrate progress with functional mobility to allow safe discharge to home with available support and/or physical assistance. Rehab Potential: Excellent Patient will be discontinued from Physical Therapy when no further skilled needs are identified in this setting. PLAN: PT Frequency: Discontinue therapy services Reasons Therapy Services Discontinued: Independent in all functional mobility Plan of Care developed with: Patient TREATMENT INTERVENTIONS: Therapy Diagnosis: Reduced mobility-other Interventions Provided: Therapeutic Activity (35580);Therapeutic Exercise (30792) Therapeutic Exercise (02081) Treatment Minutes: 10 $ Therapeutic Exercise (93631) Billed Units: 1 unit Therapeutic Activity (90916) Treatment Minutes: 13 $ Therapeutic Activity (07307) Billed Units: 1 unit Training AND education provided in: Assistive device use, Bed mobility, Benefits of in-hospital mobility, Discharge planning, Disease specific education, Expected functional level, Gait pattern, reduction of deviations, Positioning, Precautions/restrictions, Transfers The following therapeutic skills were used: Activity dosing, Cues for sequencing/proper technique for activity Total Timed Code Treatment Minutes: 23 Total Treatment Time (minutes): 23 Please see discipline specific clinical documentation flowsheet for complete details for this therapy evaluation/treatment. SIGNATURE: Greg Gonzalez, PT PATIENT NAME: Shad Rodriguez DATE: August 18, 2020 TIME: 4:05 PM Normal [facility] Basic Metabolic Panlon 08-17 Anion gap [Moles/Vol] 10 mmol/L Normal 9-18 [facility] Comment on above: Performed By: #### B MP, MG1, CBC, PHOS ####[facility] [address] [place], [place] [phone] Calcium [Mass/Vol] 9.0 mg/dL Normal 8.5-10.2 [facility] Comment on above: Performed By: #### B MP, MG1, CBC, PHOS ####[place] [phone] Chloride [Moles/Vol] 96 mmol/L Low 97-105 [facility] [place] [facility] Comment on above: Performed By: #### B MP, MG1, CBC, PHOS ####[place] [phone] CO2 [Moles/Vol] 27 mmol/L Normal 22-30 [facility] Comment on above: Performed By: #### B MP, MG1, CBC, PHOS ####[place] [phone] Creatinine [Mass/Vol] 1.15 mg/dL Normal 0.73-1.22 [facility] Comment on above: Performed By: #### B MP, MG1, CBC, PHOS ####[place] [phone] eGFR- Amer. >60 Normal [facility] Comment on above: Performed By: #### B MP, MG1, CBC, PHOS ####[place] [phone] eGFR-All Other Races >60 Normal [facility] [place] [facility] Comment on above: Result Comment: eGFR (Estimated GFR) Units of measure: mL/min/1.73 meters squared eGFR is derived from the reexpressed MDRD Study equation using the following parameters: serum creatinine, age, gender and race. The creatinine assay has been calibrated to be traceable to IDMS. An eGFR <60 mL/min/1.73m2 for >3 months is consistent with chronic kidney disease. Refer to KDOQI guidelines for clinical interpretation. In patients with unstable renal function, e.g. those with acute kidney injury, the eGFR may not accurately reflect actual GFR. Performed By: #### B MP, MG1, CBC, PHOS ####[facility] [place], [place] [phone] Glucose [Mass/Vol] 134 mg/dL High 74-99 [facility] Comment on above: Result Comment: The [place] Diabetes Association (ADA) provides guidance for cutoff values for fasting glucose and random glucose. The ADA defines fasting as no caloric intake for at least 8 hours. Fasting plasma glucose results between 100 to 125 mg/dL indicate increased risk for diabetes (prediabetes). Fasting plasma glucose results greater than or equal to 126 mg/dL meet the criteria for diagnosis of diabetes. In the absence of unequivocal hyperglycemia, results should be confirmed by repeat testing. In a patient with classic symptoms of hyperglycemia or hyperglycemic crisis, random plasma glucose results greater than or equal to 200 mg/dL meet the criteria for diagnosis of diabetes. Reference: Standards of Medical Care in Diabetes 2016, [place] Diabetes Association. Diabetes Care. 2016.39(Suppl 1). Performed By: #### B MP, MG1, CBC, PHOS ####[facility] [place], [place] [phone] Potassium [Moles/Vol] 4.0 mmol/L Normal 3.7-5.1 [facility] Comment on above: Performed By: #### B MP, MG1, CBC, PHOS ####[facility] [place], [place] [phone] Sodium [Moles/Vol] 133 mmol/L Low 136-144 [facility] Comment on above: Performed By: #### B MP, MG1, CBC, PHOS ####[facility] [address] [place], [place] [phone] Urea nitrogen [Mass/Vol] 20 mg/dL Normal 9-24 [facility] Comment on above: Performed By: #### B MP, MG1, CBC, PHOS ####[facility] [place], [place] [phone] CASE MGT INIT ASSESon 2020 CASE MGT INIT ASSES HNO ID: [id number] Author: Rosaline Keating RN Service: Case Management Author Type: Registered Nurse Type: Care Mgt Initial Assessment Filed: 08/17/2020 12:20 PM Note Text: CARE MANAGEMENT PROGRESS NOTE SERVICE DATE: 08/17/2020 SERVICE TIME: 12:17 PM LOS: 5 days Needs Prior to Discharge: Other: See Comment (medical janiya) CM UPDATE Accepting SNF [facility] [employer] [facility] , patient requested facility of choice. CM awaiting review of DIPSO. CM will continue to follow for DC planning. SIGNATURE: Rosaline Keating RN PATIENT NAME: Shad Rodriguez DATE: August 17, 2020 TIME: 12:16 PM PAGER/CONTACT #: [phone] Normal [facility] CBCon 08-17-2020 Absolute nRBC <0.01 Normal <0.01 [facility] Comment on above: Performed By: #### B SEAMUS MG1, CBC, PHOS ####[facility] [place] [address] [phone] Erythrocyte distribution wid th (RBC) [Ratio] 13.7 % Normal 11.5-15.0 [facility] Comment on above: Performed By: #### B SEAMUS MG1, CBC, PHOS ####[facility] [place], [place] [phone] Hematocrit (Bld) [Volume fraction] 40.9 % Normal 3 9.0-51.0 [facility] Comment on above: Performed By: #### B MP, MG1, CBC, PHOS ####[facility] [address], [place] [phone] Hemoglobin (Bld) [Mass/Vol] 13.5 g/dL Normal 13.0-17. 0 [facility] Comment on above: Performed By: #### B MP, MG1, CBC, PHOS ####[place] [address], [place] [phone] MCH 28.9 pG Normal 26.0-34.0 [facility] Comment on above: Performed By: #### B MP, MG1, CBC, PHOS ####[place] [address], [place] [phone] MCHC (RBC) [Mass/Vol] 33.0 g/dL Normal 30.5-36.0 [facility] Comment on above: Performed By: #### B MP, MG1, CBC, PHOS ####[place] [address], [place] [phone] MCV (RBC) [Entitic vol] 87.6 fL Normal 80.0-100.0 [facility] Comment on above: Performed By: #### B MP, MG1, CBC, PHOS ####[place] [address], [place] [phone] Platelet mean volume (Bld) [Entitic vol] 10.5 fL Normal 9.0-12.7 [facility] Comment on above: Performed By: #### B MP, MG1, CBC, PHOS ####[place] [address], [place] [phone] Platelets (Bld) [#/Vol] 210 10*3/uL Normal 150-400 [facility] Comment on above: Performed By: #### B MP, MG1, CBC, PHOS ####[place] [address], [place] [phone] RBC (Bld) [#/Vol] 4.67 10*6/uL Normal 4.20-6.00 [facility] Comment on above: Performed By: #### B MP, MG1, CBC, PHOS ####[place] [address], [place] [phone] WBC (Bld) [#/Vol] 6.51 10*3/uL Normal 3.70-11.00 [facility] Comment on above: Performed By: #### B MP, MG1, CBC, PHOS ####[facility] [address], [place] [phone] Magnesiumon 08-17-2020 Magnesium [Mass/Vol] 2.1 mg/dL Normal 1.7-2.3 [facility] [place] [facility] Comment on above: Performed By: #### B MP, MG1, CBC, PHOS ####[facility] [address] [place], [place] [phone] NURSING PROGon 08-17-2020 NURSING PROG HNO ID: [id number] Author: Dahlia Doss RN Service: ? Author Type: Registered Nurse Type: Nursing Progress Note Filed: 08/17/2020 6:21 PM Note Text: Nursing Progress Note Patient Name: Shad Rodriguez Patient Location: [place] [address] Daily Note: 1640: this nurse contacted pharmacy to inquire about why warfarin was not verified. The pharmacist stated that they were waiting for pt INR to be drawn before med is verified. Pharmacist stated that they notified the team about need for INR to be drawn now because order is for INR to be drawn @ 0400. No new orders as of yet. Pt in stable condition will continue to monitor. 1700: contacted this nurse who stated that warfarin was ok to give without INR being drawn today, This note was completed by: Dahlia Doss Normal [facility] Phosphoruson 08-17-2020 Phosphate [Mass/Vol] 3.0 mg/dL Normal 2.7-4.8 [facility] [place] [facility] Comment on above: Performed By: #### B MP, MG1, CBC, PHOS ####[facility] [address] [place], [place] [phone] Basic Metabolic Panlon 08-16 Anion gap [Moles/Vol] 11 mmol/L Normal 9-18 [facility] Comment on above: Performed By: #### P HOS, CBC, MG1, BMP ####[facility] [place] [phone] Calcium [Mass/Vol] 9.2 mg/dL Normal 8.5-10.2 [facility] Comment on above: Performed By: #### P HOS, CBC, MG1, BMP ####[facility] [place] [phone] Chloride [Moles/Vol] 100 mmol/L Normal 97-105 [facility] [place] [facility] Comment on above: Performed By: #### P HOS, CBC, MG1, BMP ####[place] [address] [place] [phone] CO2 [Moles/Vol] 26 mmol/L Normal 22-30 [facility] Comment on above: Performed By: #### P HOS, CBC, MG1, BMP ####[facility] [place] [phone] Creatinine [Mass/Vol] 1.02 mg/dL Normal 0.73-1.22 [facility] Comment on above: Performed By: #### P HOS, CBC, MG1, BMP ####[facility], [place] [phone] eGFR- Amer. >60 Normal [facility] Comment on above: Performed By: #### P HOS, CBC, MG1, BMP ####[place] [address] [place] [phone] eGFR-All Other Races >60 Normal [facility] [place] [facility] Comment on above: Result Comment: eGFR (Estimated GFR) Units of measure: mL/min/1.73 meters squared eGFR is derived from the reexpressed MDRD Study equation using the following parameters: serum creatinine, age, gender and race. The creatinine assay has been calibrated to be traceable to IDMS. An eGFR <60 mL/min/1.73m2 for >3 months is consistent with chronic kidney disease. Refer to KDOQI guidelines for clinical interpretation. In patients with unstable renal function, e.g. those with acute kidney injury, the eGFR may not accurately reflect actual GFR. Performed By: #### P HOS, CBC, MG1, BMP ####[facility] [place] [address] [phone] Glucose [Mass/Vol] 126 mg/dL High 74-99 [facility] Comment on above: Result Comment: The [place] Diabetes Association (ADA) provides guidance for cutoff values for fasting glucose and random glucose. The ADA defines fasting as no caloric intake for at least 8 hours. Fasting plasma glucose results between 100 to 125 mg/dL indicate increased risk for diabetes (prediabetes). Fasting plasma glucose results greater than or equal to 126 mg/dL meet the criteria for diagnosis of diabetes. In the absence of unequivocal hyperglycemia, results should be confirmed by repeat testing. In a patient with classic symptoms of hyperglycemia or hyperglycemic crisis, random plasma glucose results greater than or equal to 200 mg/dL meet the criteria for diagnosis of diabetes. Reference: Standards of Medical Care in Diabetes 2016, [place] Diabetes Association. Diabetes Care. 2016.39(Suppl 1). Performed By: #### P HOS, CBC, MG1, BMP ####[facility] [place] [address] [phone] Potassium [Moles/Vol] 4.4 mmol/L Normal 3.7-5.1 [facility] Comment on above: Performed By: #### P HOS, CBC, MG1, BMP ####[facility] [place], [place] [phone] Sodium [Moles/Vol] 137 mmol/L Normal 136-144 [facility] Comment on above: Performed By: #### P HOS, CBC, MG1, BMP ####[facility] [place], [place] [phone] Urea nitrogen [Mass/Vol] 16 mg/dL Normal 9-24 [facility] Comment on above: Performed By: #### P HOS, CBC, MG1, BMP ####[facility] [address] [place], [place] [phone] CASE MGT INIT Javier 2020 CASE MGT INIT ANABELLA HNO ID: [id number] Author: Rosaline Keating RN Service: Case Management Author Type: Registered Nurse Type: Care Mgt Initial Assessment Filed: 08/16/2020 5:34 PM Note Text: CARE MANAGEMENT: ASSESSMENT AND DISCHARGE PLAN SERVICE DATE: August 16, 2020 SERVICE TIME: 5:29 PM PRIMARY CARE PHYSICIAN: Cynthia Aguila CNP, ACCESS CONTROL OFFICER ADMISSION STATUS: Inpatient Needs Prior to Discharge: Accepting Facility MEDICAL: MEDICARE A AND B 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 : 1 - Never How confident are you filling out medical forms by yourself?: 1 - Extremely Baseline Mental Status Prior to this Illness what was the patient's Baseline Mental Status?: Alert AND Oriented Prior to this illness, has anyone described the patient having any of the following behaviors?: Not Applicable Relationship of the informant to the patient:: Self Functional Status: Independent Does Patient Currently Receive Any Community Services or Home Care?: None Equipment Prior to Admission: None Has the Patient Been in a Group Home Facility in the Past 30 days?: No SOCIAL: Living Arrangements: Home Lives With: Alone Financial Resources: Employed Primary Contact: Extended Emergency Contact Information Primary Emergency Contact: Enzo Hernandez [place] Mobile Relation: Brother Supportive Patient Contact:: Yes Contact Resources: Family Family Name/Phone: Enzo Mary ( brother , lives in [place], [place] ) [phone] Caregiver AssessmentCaregiver is ready, willing and able to meet the patient's needs as recommended by the inter-professional team:: No Does the patient have an acute stroke diagnosis, or has the patient had a stroke during this admission?: No Patient's transition needs and plan for meeting these needs: SNF Patient's perception of need for this admission: Scheduled surgery Medication Adherance I am convinced of the importance of my prescription medication: 0 - Agree Completely I worry that my prescription medication will do more harm than good to me : 0 - Disagree Mostly I feel financially burdened by my [id number] expenses for my prescription medication:: 0 - Disagree Mostly Risk Score: 0 Patient is categorized as: Low risk < 2 Are you interested in bedside delivery of your medications? No Is Patient Psychosocially Complex?: No ASSESSMENT AND PLAN: Medical Needs: Medical Needs: Two or more chronic diseases Psychosocial Needs: Psychosocial Needs: None FREEDOM OF CHOICE EXPLAINED: [place] of Choice Given: Yes Level of Care Discussed: Group Home Facility Financial Disclosure Provided: Yes Financial Disclosure Comments: Patient Provider List: Group Home Facility Provider list within the patient's requested geographic area shared with the patient/family: Yes within: [place] miles of [facility] code: [address] Quality and resource use metrics shared with the patient that are relevant to the patient's goals of care and treatment preferences:: Yes Metrics: Potentially Preventable 30-day Post Discharge Readmission Rates POTENTIAL TRANSITION PLANS Group Home Facility/Intermediate Care Facility Per chart review, patient is 69 yr old male s/p TAR for ventral hernia repair CM met with patient at bedside; introduced self and CM role. Prior to admission, patient was independent with ADLs. The patient declined using any assistive equipment. The patient has been skilled for Home PT , SNF OT at discharge. Patient states that he needs to be at baseline to return home safely The patient lives at home alone without assistance on a house boat with step stairs, 10 total. Patient request referral placed to [facility] , awaiting responses. CM will continue to follow for medical needs. The patient will be transported home at d/c by friends via private auto. SIGNATURE: Rosaline Keating RN PATIENT NAME: Shad Rodriguez DATE: August 16, 2020 TIME: 5:29 PM PAGER/CONTACT #: [phone] Normal [facility] 08-16-2020 Absolute nRBC <0.01 Normal <0.01 [facility] Comment on above: Performed By: #### P HOS, CBC, MG1, BMP ####[facility], [place] [phone] Erythrocyte distribution wid th (RBC) [Ratio] 14.0 % Normal 11.5-15.0 [facility] Comment on above: Performed By: #### P HOS, CBC, MG1, BMP ####[place] [address] [place] [phone] Hematocrit (Bld) [Volume fraction] 41.1 % Normal 3 9.0-51.0 [facility] Comment on above: Performed By: #### P HOS, CBC, MG1, BMP ####[place] [address], [place] [phone] Hemoglobin (Bld) [Mass/Vol] 13.5 g/dL Normal 13.0-17. 0 [facility] Comment on above: Performed By: #### P HOS, CBC, MG1, BMP ####[place] [address] [place] [phone] MCH 28.8 pG Normal 26.0-34.0 [facility] Comment on above: Performed By: #### P HOS, CBC, MG1, BMP ####[place] [address] [place] [phone] MCHC (RBC) [Mass/Vol] 32.8 g/dL Normal 30.5-36.0 [facility] Comment on above: Performed By: #### P HOS, CBC, MG1, BMP ####[facility], [place] [phone] MCV (RBC) [Entitic vol] 87.6 fL Normal 80.0-100.0 [facility] Comment on above: Performed By: #### P HOS, CBC, MG1, BMP ####[facility] [place], [place] [phone] Platelet mean volume (Bld) [Entitic vol] 10.4 fL Normal 9.0-12.7 [facility] Comment on above: Performed By: #### P HOS, CBC, MG1, BMP ####[facility] [place], [place] [phone] Platelets (Bld) [#/Vol] 195 10*3/uL Normal 150-400 [facility] Comment on above: Performed By: #### P HOS, CBC, MG1, BMP ####[facility] [place], [place] [phone] RBC (Bld) [#/Vol] 4.69 10*6/uL Normal 4.20-6.00 [facility] Comment on above: Performed By: #### P HOS, CBC, MG1, BMP ####[facility] [place], [place] [phone] WBC (Bld) [#/Vol] 5.55 10*3/uL Normal 3.70-11.00 [facility] Comment on above: Performed By: #### P HOS, CBC, MG1, BMP ####[facility] [place], [place] [phone] CNDSon 08-16-2020 CNDS HNO ID: [id number] Author: Gaby Crowell APRN.ACCESS CONTROL OFFICER Service: General Surgery Author Type: Nurse Practitioner Type: Discharge Summary Filed: 08/19/2020 10:36 AM Note Text: Attestation signed by Felicia Amaya MD at 08/19/2020 2:11 PM Attending Note I reviewed the discharge summary for this patient being cared for by the surgery team and agree with its content and above plan of care unless otherwise indicated. Signature: FELICIA AMAYA MD GENERAL SURGERY DISCHARGE SUMMARY PATIENT NAME: Shad Rodriguez ADMISSION DATE: 08/12/2020 DISCHARGE DATE: 08/19/2020 ATTENDING PHYSICIAN: Felicia Amaya MD Code Status: Not on file Highest Readmission Risk Score: 14 The 30 day readmissions risk score is derived from an internally validated risk model which evaluates patient level characteristics, utilization history, medication orders and lab results up until the day of discharge. Patients with a score of 40 or above are considered highest risk for readmission. Specific patient level drivers will be listed at the bottom of the summary. REASON FOR HOSPITALIZATION: Ventral hernia repair OPERATIONS DURING HOSPITALIZATION: Procedure(s) (LRB): IMPLANT MESH/PROSTHESIS VENTRAL HERNIA REPAIR (N/A) PROCEDURES DURING HOSPITALIZATION: IV access Intubation for surgery Anesthesia administration HOSPITAL COURSE: Mr. Shad Rodriguez is a 69 year old male with a PMH significant for: CHF, CKDIII, T2DM, and pulmonary embolism 2/2 factor V Leiden who presented to the hospital on 08/12/2020 for a planned surgical repair of a ventral hernia. Surgery went without complications and was well tolerated. The patient was transferred to PACU, and then a RNF for the remainder of his recovery. He met all post-operative benchmarks successfully, including: pain control from IV to PO regimen, voiding without difficulties, ROBF, and tolerated advancement of diet. JIM drain x2 were removed at bedside prior to d/c due to satisfactory output. He is being discharged to SNF on Lovenox to Coumadin bridge. He was medically cleared for discharge in light of stable vitals and lab work. Active Hospital Problems Diagnosis Date Noted - Ventral hernia 08/12/2020 Resolved Hospital Problems No resolved problems to display. Transitions of Care Critical Issues: Follow up with Dr. Amaya in 3 weeks in clinic Bridging of Lovenox to home Coumadin - remain on Lovenox until INR is therapeutic LABS AND PROCEDURES PENDING AT DISCHARGE: CONSULTING TEAMS DURING HOSPITALIZATION: None Treatment Team: general surgery Attending Provider: Felicia Amaya MD PATIENT CONDITION AT DISCHARGE: Stable DISCHARGE DISPOSITION: Group Home Facility INFORMATION PROVIDED TO PATIENT: Discharge instructions, AC bridging information DIET: GI soft, low fiber diet x2 weeks ACTIVITY: Lifting is restricted to: 10-15 lbs x4 weeks May bathe and shower No walking restrictions No driving while on narcotics May use stairs as tolerated WOUND/SURGICAL SITE CARE: None ALLERGIES Allergen Reactions - Penicillins Unknown - Ragweed Shortness of Breath DISCHARGE MEDICATION: Current Discharge Medication List START taking these medications acetaminophen (TYLENOL) 1,000 mg Take 1,000 mg by mouth every 6 hours as needed for pain. calcium carbonate (TUMS) 500 mg Take 500 mg by mouth three times daily as needed (GERD). enoxaparin (LOVENOX) 90 mg Inject 90 mg subcutaneously q 24 HR. warfarin (COUMADIN) 4 mg Take 4 mg by mouth daily as directed. oxyCODONE IR (ROXICODONE) 5 mg Take 5 mg by mouth every 6 hours as needed. magnesium hydroxide (MOM) 30 mL Take 30 mL by mouth once daily as needed. ipratropium-albuterol (DUONEB) 3 mL Inhale 3 mL as instructed every 4 hours as needed for wheezing/shortness of breath. guaiFENesin (MUCINEX) 600 mg Take 600 mg by mouth every 12 hours as needed (help with congestion). docusate sodium (COLACE) 100 mg Take 100 mg by mouth twice daily. While taking narcotic pain medication Refills: 0 CONTINUE these medications which have CHANGED lisinopril 2.5 mg Take 2.5 mg by mouth once daily. amLODIPine (NORVASC) 2.5 mg Take 2.5 mg by mouth once daily. atorvastatin (LIPITOR) 10 mg Take 10 mg by mouth once daily. CONTINUE these medications which have NOT CHANGED glipiZIDE XL (GLUCOTROL XL) 2.5 mg Take 2.5 mg by mouth once daily. Refills: 11 loperamide (IMODIUM) 2 mg cap(s) TAKE 2 CAPSULES BY MOUTH BEFORE MEALS AND AT BEDTIME Refills: [address] (PROTONIX) 40 mg Take 40 mg by mouth DAILY (6 AM). Refills: 0 STOP taking these medications warfarin 2.5 mg tab 2.5 mg, warfarin 2 mg tab 2 mg 4 mg Comments: Reason for Stopping: PLAN OF CARE: Plan of care discussed with Provider, RN, Patient and Care Management (more content not included)... Normal [facility] Magnesiumon 08-16-2020 Magnesium [Mass/Vol] 2.2 mg/dL Normal 1.7-2.3 [facility] [place] [facility] Comment on above: Performed By: #### P HOS, CBC, MG1, BMP ####[facility] [address] [place], [place] [phone] NURSING PROGon 08-16-2020 NURSING PROG HNO ID: [id number] Author: Bee Gracia RN Service: ? Author Type: Registered Nurse Type: Nursing Progress Note Filed: 08/16/2020 6:16 PM Note Text: Problem(s) / Intervention(s) PATIENT NAME: Shad Rodriguez The patient complained of dizziness, shaking, and numbness and tingling in both hands and fingers. These are all new symptoms according to the patient. The following intervention(s) were initiated : Vitals were taken and stable. Blood Sugar was also taken and blood glucose is 162. Gen. Surg clinical education consultant made aware and requested to come and see the patient. The following observation(s) were made: Patient is up in the chair. Will continue to monitor the patient. This note was completed by: Bee Gracia Normal [facility] Phosphoruson 08-16-2020 Phosphate [Mass/Vol] 3.4 mg/dL Normal 2.7-4.8 [facility] [place] [facility] Comment on above: Performed By: #### P HOS, CBC, MG1, BMP ####[facility] [address] [place], [place] [phone] THERAPY NTon 08-16-2020 THERAPY NT HNO ID: [id number] Author: Ynes Sorto CCC/FLAT GRINDER OPERATOR Service: Speech/Swallow Author Type: Speech Language Pathologist Type: Therapy (PT/OT/Speech/Resp) Filed: 08/16/2020 12:06 PM Note Text: [facility] Speech Pathology Consult BEDSIDE SWALLOWING EVALUATION 08/16/2020 IMPRESSIONS: Slow mastication of solids in light of incomplete dentition. Otherwise, seemingly functional oropharyngeal swallow skills. No overt signs and symptoms aspiration. Subjective complaints of food sticking in his chest intermittently during meals over the last 4 years requiring patient to regurgitate to alleviate this sensation. Additional complaints of GE reflux with breakthrough symptoms despite pharmacologic intervention. Suggest consult to GI for further evaluation and intervention as appropriate. PROGNOSIS: Good from a speech perspective for safe oral intake RECOMMENDATIONS: Downgrade to dental soft diet (per patient preference) to ease demands of mastication. Okay for thin liquid (IDDSI level 0). Swallow controls: -upright posture for all oral intake (hips at 90 degrees) -small bites / sips -slow rate of intake -alternate bites / sips (patient indicates that this helps alleviate sensation of food sticking in his chest) -maintain upright posture for at least 30-45 minutes following oral intake (given report of significant GE reflux) Consider consult to GI for further evaluation and management of suspected primary esophageal phase dysphagia PLAN: Will sign off. Please contact with questions or concerns. Ynes Sorto M.A. [facility]-FLAT GRINDER OPERATOR Speech Language Pathology Cell/Pager: [phone] DIAGNOSIS/HISTORY (per HANDP): Shad Rodriguez is a 69 year old male with history of Asthma, HTN, T2DM, CKD3, PE/DVTs, factor V leiden on warfarin since 2015 who presents for preoperative evaluation. 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 He also underwent chemo and radiation with last round in 2015. Patient underwent TAR for ventral hernia repair 08/12/2020. He was started on a clear liquid diet post-op and advanced to GI soft diet today (08/16/2020. Consult received for clinical swallow evaluation. 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 - PICC LINE INSERT/CONSULT 01/31/2016 - TOOTH EXTRACTION DATE OF ADMISSION: 08/12/2020 CURRENT LOCATION: [place] [address] HEARING STATUS: Within functional limits BEHAVIORAL OBSERVATIONS: Alert, Cooperative, Pleasant. Conversant with this therapist. Indicates his swallow improves day by day. Report of longstanding difficulty swallowing solid food (x 4 years) with subjective complaints of food sticking in his chest (progressive over the course of the meal). Patient often required to regurgitate to alleviate sensation of food sticking and building up in his chest. Sips of liquid occasionally help as well. PRESENT FEEDING METHOD: Oral Diet Level: GI soft with thin liquid (IDDSI level 0) Dentition: Incomplete - missing a few bottom teeth, no top teeth; had top dentures, now lost and replacement dentures painful / cause bleeding Tracheostomy: No O2: Room Air ORAL MECHANISM EVALUATION FACIAL SYMMETRY AT REST: Within Functional Limits MANAGEMENT OF SECRETIONS: Within Normal Limits LABIAL Pursing: Within Functional Limits Retraction: Within Functional Limits VELAR Elevation: Within Functional Limits Gag Reflex: Did not test LARYNGEAL Wet Vocal Quality: Yes - upon arrival, though spontaneous throat clear eliminated vocal wetness Volitional Cough: Within Functional Limits Volitional Throat Clear: Within Functional Limits LINGUAL Protrusion: Within Functional Limits Retraction: Did not test Lateralization: Within Functional Limits SPEECH PRODUCTION Articulation: Within Functional Limits Intelligibility: Within Functional Limits Vocal Quality: Within Functional Limits Vocal Intensity: Rather soft spoken, reportedly at baseline Rate / Prosody: Within Functional Limits COMMENTS: No gross asymmetries. Good clarity of speech. Diminished vocal intensity, though reportedly soft spoken at baseline. ORAL TRIALS POSITION OF PATIENT: Positioned upright in bed CONSISTENCIES GIVEN: Water Loorna Doone cookies (several dipped in applesauce and several served plain (more content not included)... Normal [facility] THERAPY NT HNO ID: [id number] Author: Alyse Henson OT/L Service: Occupational Therapy Author Type: Occupational Therapist Type: Therapy (PT/OT/Speech/Resp) Filed: 08/16/2020 10:32 AM Note Text: Occupational Therapy Treatment SERVICE DATE: 08/16/2020 SERVICE TIME: 0942 to 1019 ROOM: [place] [address] Recommended Discharge Disposition: Subacute/SNF Recommended Discharge Disposition Comments: Pt has shown improvements in activity tolerance and ADL performance, but continues to require extensive A with LB dressing and bathing d/t abdominal precautions. Pt resides alone and reported has PRN A to perform meal prep, laundry, cleaning, transportation, and yardwork therefore is unsafe to return home and would benefit from SNF to maximize I and safety with ADLs and IADLs Recommended Discharge Disposition Due to: Patient requires an active, intensive rehabilitation therapy program due to:;Patient requires daily, facility-based rehabilitation from at least one discipline due to:;decline in functional status requiring daily skilled care;ongoing intervention of multiple therapy disciplines Anticipated Discharge Needs: Physical Assist at Home Physical Assist at Home for: Cleaning;Laundry;Meals;Stairs;Self Care;Shopping;Transportation OT 6 Clicks Score: 18 Precautions/Activity Restrictions: Fall Risk;Lines/Tubes/Drains;Abdominal Current Hospital Course: s/p TAR for ventral hernia repair Reason for Hospital Admission: Pt admitted for scheduled procedure for ventral hernia repair Relevant Past Medical History: Asthma, HTN, T2DM, CKD3, PE/DVTs, factor V leiden on warfarin since 2015 Response to Therapy Interventions: Good participation in activities, Improved tolerance for activity, Notable progression with functional activities/skills, Pain Continue skilled needs due to: Safety concerns, Functional impairment Occupational Therapy Problem List: Pain;Safety Deficits;Impaired Self Care;Balance Impaired;Functional Mobility Impairment Treatment Interventions: Self Care / Home Management;Education;Energy Conservation Training;Functional Mobility Training;Balance Training Plan for next visit: Shower/tub transfer training, Standing balance, Toileting instruction, Fall prevention Home Environment Patient Lives With: (pt planning to move into assisted living facility ) Assistance Available: PRN Entry To Home: Stairs;With Rail Number Of Stairs Into Home: 2 Number Of Stairs To Bed/Bath: 0 Tub/Shower Type: walk-in 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 Prior Functional Level: Within Functional Limits Prior Functional Level Comments: per pt, independent with mobility, no hx of falls Patient Report: I am going to go to a rehab by my house CURRENT FUNCTIONAL STATUS: Most recent performance Current Activities of Daily Living Assist Level Additional Information Feeding Modified Independent Grooming Set Up Bathing Upper Body Supervision Bathing Lower Body Moderate Assistance;Additional Information for B-lower legs and buttocks Dressing Upper Body Stand By Assistance Dressing Lower Body Maximal Assistance Toileting Moderate Assistance Instrumental Activities of Daily Living Assist Level Additional Information Meal/Beverage Prep Cleaning Moderate Assistance;Additional Information change bed linens Laundry Medication Management with Strategies Functional Mobility Assist Level Additional Information Rolling Supine to Sit Stand By Assistance Sit to Supine Stand By Assistance Scooting Contact Guard Assistance Sit to Stand Stand By Assistance Stand to Sit Stand By Assistance Bed to Chair Toilet/Commode Shower Functional Mobility Stand By Assistance Wheeled Walker Blank pérez indicate activity not attempted Balance: Dynamic Standing Static Sitting Balance: Normal Patient able to maintain steady balance without handhold support Dynamic Sitting Balance: Good Patient accepts moderate challenge, able to maintain balance while picking up object off floor Static Standing Balance: Fair (F+) Patient able to maintain balance with handhold support, may require occasional minimal assistance (F+) Dynamic Standing Balance: Fair Patient accepts minimal challenge, able to maintain balance while turning head/trunk Learning/Educational Needs: Self Care;Safety;Rehabilitation Techniques and Procedures;Precautions;Functional Activities/Mobility Goals for Plan of Care: Patient /Caregiver Goals: Go To Rehab Goals: Patient will demonstrate progress to optimize self-care activities, cognitive and/or coping to maximize function upon discharge. Progress Toward Goals: Progressing as expected Rehab Potential: Good Patient will be discontinued from Occupational Therapy when no further skilled needs are identified in this setting. PLAN: OT Frequency: 3 times per week (1) Plan of Care developed with: Patient TREATMENT INTERVENTIONS: Therapy Diagnosis: Reduced mobility-other;Decreased activities of daily living (ADL (more content not included)... Normal [facility] Basic Metabolic Panlon 08-15 Anion gap [Moles/Vol] 12 mmol/L Normal 9-18 [facility] Comment on above: Performed By: #### C BCDIF, BMP ####[facility] [address] [place], [place] [phone] Calcium [Mass/Vol] 9.2 mg/dL Normal 8.5-10.2 [facility] Comment on above: Performed By: #### C BCDIF, BMP ####[facility] [address] [place], [place] [phone] Chloride [Moles/Vol] 98 mmol/L Normal 97-105 [facility] [place] [facility] Comment on above: Performed By: #### C DONALDO, BMP ####[place] [address] [place], [place] [phone] CO2 [Moles/Vol] 25 mmol/L Normal 22-30 [facility] Comment on above: Performed By: #### C DONALDO, BMP ####[place] [address] [place], [place] [phone] Creatinine [Mass/Vol] 1.05 mg/dL Normal 0.73-1.22 [facility] Comment on above: Performed By: #### C DONALDO, BMP ####[place] [address] [place], [place] [phone] eGFR- Amer. >60 Normal [facility] Comment on above: Performed By: #### C DONALDO, BMP ####[place] [address] [place], [place] [phone] eGFR-All Other Races >60 Normal [facility] [place] [facility] Comment on above: Result Comment: eGFR (Estimated GFR) Units of measure: mL/min/1.73 meters squared eGFR is derived from the reexpressed MDRD Study equation using the following parameters: serum creatinine, age, gender and race. The creatinine assay has been calibrated to be traceable to IDMS. An eGFR <60 mL/min/1.73m2 for >3 months is consistent with chronic kidney disease. Refer to KDOQI guidelines for clinical interpretation. In patients with unstable renal function, e.g. those with acute kidney injury, the eGFR may not accurately reflect actual GFR. Performed By: #### C DONALDO, BMP ####[place] [address] [place], [place] [phone] Glucose [Mass/Vol] 132 mg/dL High 74-99 [facility] Comment on above: Result Comment: The [place] Diabetes Association (ADA) provides guidance for cutoff values for fasting glucose and random glucose. The ADA defines fasting as no caloric intake for at least 8 hours. Fasting plasma glucose results between 100 to 125 mg/dL indicate increased risk for diabetes (prediabetes). Fasting plasma glucose results greater than or equal to 126 mg/dL meet the criteria for diagnosis of diabetes. In the absence of unequivocal hyperglycemia, results should be confirmed by repeat testing. In a patient with classic symptoms of hyperglycemia or hyperglycemic crisis, random plasma glucose results greater than or equal to 200 mg/dL meet the criteria for diagnosis of diabetes. Reference: Standards of Medical Care in Diabetes 2016, [place] [employer] Association. Diabetes Care. 2016.39(Suppl 1). Performed By: #### Trinidad FULTON BMP ####[place] [address] [address] [place] [address], [place] [phone] Potassium [Moles/Vol] 4.6 mmol/L Normal 3.7-5.1 [facility] Comment on above: Performed By: #### Trinidad FULTON BMP ####[address] [place], [place] [phone] Sodium [Moles/Vol] 135 mmol/L Low 136-144 [facility] Comment on above: Performed By: #### Trinidad FULTON BMP ####[place] [address] [place], [place] [phone] Urea nitrogen [Mass/Vol] 17 mg/dL Normal 9-24 [facility] Comment on above: Performed By: #### Trinidad FULTON BMP ####[place] [address] [address] [place], [place] [phone] CBC and Differentialon 08-15 Abs Baso 0.03 k/uL Normal <0.11 [facility] Comment on above: Performed By: #### Trinidad FULTON BMP ####[place] [address] [place] [address], [place] [phone] Abs [place] 0.79 k/uL Normal <0.87 [facility] Comment on above: Performed By: #### Trinidad FULTON BMP ####[place] [address] [address] [phone] Abs Neut 6.67 k/uL Normal 1.45-7.50 [facility] Comment on above: Performed By: #### C BCGUSTAVO, BMP ####[place] [address], [place] [phone] Absolute nRBC <0.01 Normal <0.01 [facility] Comment on above: Performed By: #### C BCGUSTAVO, BMP ####[place] [address] [address] [place] [phone] Basophils/100 WBC (Bld) 0.4 % Normal [facility] Comment on above: Performed By: #### C BCGUSTAVO, BMP ####[place] [address] [address] [place] [phone] DTYPE Auto Diff Normal [facility] Comment on above: Performed By: #### C BCGUSTAVO, BMP ####[place] [address] [address] [place] [phone] Eosinophils (Bld) [#/Vol] 0.06 10*3/uL Normal <0.46 [facility] Comment on above: Performed By: #### C BCDIF, BMP ####[place] [address] [address], [place] [phone] Eosinophils/100 WBC (Bld) 0.7 % Normal [facility] Comment on above: Performed By: #### C BCDIF, BMP ####[place] [address], [place] [phone] Erythrocyte distribution wid th (RBC) [Ratio] 13.9 % Normal 11.5-15.0 [facility] Comment on above: Performed By: #### C BCDIF, BMP ####[place] [address] [address], [place] [phone] Hematocrit (Bld) [Volume fraction] 42.6 % Normal 3 9.0-51.0 [facility] Comment on above: Performed By: #### C BCDIF, BMP ####[place] [address] [address], [place] [phone] Hemoglobin (Bld) [Mass/Vol] 14.2 g/dL Normal 13.0-17. 0 [facility] Comment on above: Performed By: #### C BCDIF, BMP ####[place] [address] [address], [place] [phone] Lymphocytes (Bld) [#/Vol] 0.84 10*3/uL Low 1.00-4.0 0 [facility] Comment on above: Performed By: #### C BCDIF, BMP ####[place] [address] [address], [place] [phone] Lymphocytes/100 WBC (Bld) 10.0 % Normal [facility] Comment on above: Performed By: #### C BCDIF, BMP ####[place] [address] [address], [place] [phone] MCH 29.2 pG Normal 26.0-34.0 [facility] Comment on above: Performed By: #### C BCDIF, BMP ####[place] [address] [address], [place] [phone] MCHC (RBC) [Mass/Vol] 33.3 g/dL Normal 30.5-36.0 [facility] Comment on above: Performed By: #### C BCDIF, BMP ####[place] [address] [address], [place] [phone] MCV (RBC) [Entitic vol] 87.5 fL Normal 80.0-100.0 [facility] Comment on above: Performed By: #### C BCDIF, BMP ####[place] [address] [address], [place] [phone] Monocytes/100 WBC (Bld) 9.4 % Normal [facility] Comment on above: Performed By: #### C BCDIF, BMP ####[place] [address], [place] [phone] Neutrophils/100 WBC (Bld) 79.5 % Normal [facility] Comment on above: Performed By: #### C BCDIF, BMP ####[place] [address] [address], [place] [phone] NRBCs 0.0 /100 WBC Normal 0 [facility] Comment on above: Performed By: #### C BCDIF, BMP ####[place] [address] [address], [place] [phone] Platelet mean volume (Bld) [Entitic vol] 10.3 fL Normal 9.0-12.7 [facility] Comment on above: Performed By: #### C BCDIF, BMP ####[place] [address] [address], [place] [phone] Platelets (Bld) [#/Vol] 197 10*3/uL Normal 150-400 [facility] Comment on above: Performed By: #### C BCDIF, BMP ####[place] [address] [address], [place] [phone] RBC (Bld) [#/Vol] 4.87 10*6/uL Normal 4.20-6.00 [facility] Comment on above: Performed By: #### C BCDIF, BMP ####[place] [address], [place] [phone] WBC (Bld) [#/Vol] 8.39 10*3/uL Normal 3.70-11.00 [facility] Comment on above: Performed By: #### C BCDIF, BMP ####[place] [address], [place] [phone] THERAPY NTon 08-15-2020 THERAPY NT HNO ID: [id number] Author: Fina Boyle, PT Service: Physical Therapy Author Type: Physical Therapist Type: Therapy (PT/OT/Speech/Resp) Filed: 08/15/2020 3:37 PM Note Text: Physical Therapy Treatment SERVICE DATE: 08/15/2020 SERVICE TIME: 1353 to 1418 ROOM: [place] [address] Recommended Discharge Disposition: Home PT Recommended Discharge Disposition Comments: Therapy recommends SNF although the patient prefers SNF, will not have assist at home. 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 Anticipated Discharge Needs: Physical Assist at Home Physical Assist at Home for: Cleaning;Laundry;Meals;Stairs;Safety;Self Care;Shopping;Transportation Recommended Discharge Equipment: To Be Determined PT 6 Clicks Score: 22 Precautions/Activity Restrictions: Fall Risk;Lines/Tubes/Drains;Abdominal Current Hospital Course: s/p TAR for ventral hernia repair Reason for Hospital Admission: Pt admitted for scheduled procedure for ventral hernia repair Relevant Past Medical History: Asthma, HTN, T2DM, CKD3, PE/DVTs, factor V leiden on warfarin since 2015 Response to Therapy Interventions: Notable progression with functional activities/skills Physical Therapy Problem List: Education Deficit;Pain;Safety Deficits;Impaired Self Care;Decreased Activity Tolerance;Decreased Strength;Functional Mobility Impairment;Balance Impaired Treatment Interventions: Education;Self Care / Home Management;Energy Conservation Training;Joint Mobility;Strengthening;Functional Mobility Training;Balance Training;Neuromuscular Re-education;Pain Management Home Environment Patient Lives With: (pt planning to move into assisted living facility ) Assistance Available: PRN Entry To Home: Stairs;With Rail Number Of Stairs Into Home: 2 Number Of Stairs To Bed/Bath: 0 Tub/Shower Type: walk-in 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 CURRENT FUNCTIONAL STATUS: Most recent performance Current Functional Mobility Assist Level Additional Information Rolling Minimal Assistance Supine to Sit Contact Guard Assistance Sit to Supine Scooting Stand By Assistance Sit to Stand Stand By Assistance Stand to Sit Stand By Assistance Bed to Chair Contact Guard Assistance Bed To Chair Transfer Type: Stepping Toilet/Commode Gait Stand By Assistance Gait Device: IV Pole (assessed gait with and without the IV pole) Gait Distance (feet): 500 Stairs Curb Step Car Transfer Blank pérez indicate activity not attempted General Deviations/Observations: Antalgic gait;Flexed trunk posture -M: 8: Walk 250 feet or more Learning/Educational Needs: Discharge Plan;Disease Process;Equipment;Family Education/Training;Functional Activities/Mobility;Pain Management;Plan of Care;Precautions;Rehabilitation Techniques and Procedures;Respiratory Function;Safety Goals for Plan of Care: Patient /Caregiver Goals: Go Home Goals: Patient will demonstrate understanding of importance of mobility during hospital stay and resolve all functional needs identified. Rehab Potential: Excellent Patient will be discontinued from Physical Therapy when no further skilled needs are identified in this setting. PLAN: PT Frequency: 3 times per week Plan of Care developed with: Patient TREATMENT INTERVENTIONS: Therapy Diagnosis: Reduced mobility-other Interventions Provided: Therapeutic Activity (79177);Gait Training (89299) Therapeutic Activity (74942) Treatment Minutes: 10 $ Therapeutic Activity (91931) Billed Units: 1 unit Gait Training (96399) Treatment Minutes: 15 $ Gait Training (02940) Billed Units: 1 unit Training AND education provided in: Assistive device use, Bed mobility, Benefits of in-hospital mobility, Discharge planning, Disease specific education, Expected functional level, Gait pattern, reduction of deviations, Positioning, Precautions/restrictions, Transfers The following therapeutic skills were used: Activity dosing, Cues for sequencing/proper technique for activity Total Timed Code Treatment Minutes: 25 Total Treatment Time (minutes): 25 Please see discipline specific clinical documentation flowsheet for complete details for this therapy evaluation/treatment. SIGNATURE: Fina Boyle PT, DPT PATIENT NAME: Shad Rodriguez DATE: August 15, 2020 TIME: 3:37 PM Normal [facility] Basic Metabolic Panlon 08-14 Anion gap [Moles/Vol] 10 mmol/L Normal 9-18 [facility] Comment on above: Performed By: #### C BCDIF, BMP, PHOS ####[facility] [address] [place], [place] [phone] Calcium [Mass/Vol] 9.3 mg/dL Normal 8.5-10.2 [facility] Comment on above: Performed By: #### C BCDIF, BMP, PHOS ####[facility], [place] [phone] Chloride [Moles/Vol] 100 mmol/L Normal 97-105 [facility] [place] [facility] Comment on above: Performed By: #### C BCDIF BMP, PHOS ####[facility], [place] [phone] CO2 [Moles/Vol] 27 mmol/L Normal 22-30 [facility] Comment on above: Performed By: #### C BCDIF, BMP, PHOS ####[place] [address] [place] [phone] Creatinine [Mass/Vol] 1.15 mg/dL Normal 0.73-1.22 [facility] Comment on above: Performed By: #### C BCJOHNFKOBI, PHOS ####[place] [address], [place] [phone] eGFR- Amer. >60 Normal [facility] Comment on above: Performed By: #### C BCKOBI CHEN, PHOS ####[place] [address], [place] [phone] eGFR-All Other Races >60 Normal [facility] [place] [facility] Comment on above: Result Comment: eGFR (Estimated GFR) Units of measure: mL/min/1.73 meters squared eGFR is derived from the reexpressed MDRD Study equation using the following parameters: serum creatinine, age, gender and race. The creatinine assay has been calibrated to be traceable to IDMS. An eGFR <60 mL/min/1.73m2 for >3 months is consistent with chronic kidney disease. Refer to KDOQI guidelines for clinical interpretation. In patients with unstable renal function, e.g. those with acute kidney injury, the eGFR may not accurately reflect actual GFR. Performed By: #### C BCDIF BMP, PHOS ####[facility], [place] [phone] Glucose [Mass/Vol] 148 mg/dL High 74-99 [facility] Comment on above: Result Comment: The [place] Diabetes Association (ADA) provides guidance for cutoff values for fasting glucose and random glucose. The ADA defines fasting as no caloric intake for at least 8 hours. Fasting plasma glucose results between 100 to 125 mg/dL indicate increased risk for diabetes (prediabetes). Fasting plasma glucose results greater than or equal to 126 mg/dL meet the criteria for diagnosis of diabetes. In the absence of unequivocal hyperglycemia, results should be confirmed by repeat testing. In a patient with classic symptoms of hyperglycemia or hyperglycemic crisis, random plasma glucose results greater than or equal to 200 mg/dL meet the criteria for diagnosis of diabetes. Reference: Standards of Medical Care in Diabetes 2016, [place] Diabetes Association. Diabetes Care. 2016.39(Suppl 1). Performed By: #### C BCDIF, BMP, PHOS ####[facility], [place] [phone] Potassium [Moles/Vol] 4.3 mmol/L Normal 3.7-5.1 [facility] Comment on above: Performed By: #### C BCDIF, BMP, PHOS ####[facility] [place], [place] [phone] Sodium [Moles/Vol] 137 mmol/L Normal 136-144 [facility] Comment on above: Performed By: #### C BCDIF, BMP, PHOS ####[facility] [place], [place] [phone] Urea nitrogen [Mass/Vol] 17 mg/dL Normal 9-24 [facility] Comment on above: Performed By: #### C BCDIF, BMP, PHOS ####[facility] [place], [place] [phone] Anion gap [Moles/Vol] 7 mmol/L Low 9-18 [facility] Comment on above: Performed By: #### M G1, BMP, PHOS, CBCDIF ####[facility] [place], [place] [phone] Calcium [Mass/Vol] 9.2 mg/dL Normal 8.5-10.2 [facility] Comment on above: Performed By: #### M G1, BMP, PHOS, CBCDIF ####[facility], [place] [phone] Chloride [Moles/Vol] 100 mmol/L Normal 97-105 [facility] [place] [facility] Comment on above: Performed By: #### M G1, BMP, PHOS, CBCDIF ####[place] [address] [place] [phone] CO2 [Moles/Vol] 30 mmol/L Normal 22-30 [facility] Comment on above: Performed By: #### M G1, BMP, PHOS, CBCDIF ####[place] [address], [place] [phone] Creatinine [Mass/Vol] 1.13 mg/dL Normal 0.73-1.22 [facility] Comment on above: Performed By: #### M G1, BMP, PHOS, CBCDIF ####[place] [address] [place] [phone] eGFR- Amer. >60 Normal [facility] Comment on above: Performed By: #### M G1, BMP, PHOS, CBCDIF ####[place] [address] [place] [phone] eGFR-All Other Races >60 Normal [facility] [place] [facility] Comment on above: Result Comment: eGFR (Estimated GFR) Units of measure: mL/min/1.73 meters squared eGFR is derived from the reexpressed MDRD Study equation using the following parameters: serum creatinine, age, gender and race. The creatinine assay has been calibrated to be traceable to IDMS. An eGFR <60 mL/min/1.73m2 for >3 months is consistent with chronic kidney disease. Refer to KDOQI guidelines for clinical interpretation. In patients with unstable renal function, e.g. those with acute kidney injury, the eGFR may not accurately reflect actual GFR. Performed By: #### M G1, BMP, PHOS, CBCDIF ####[facility] [address] [place], [place] [phone] Glucose [Mass/Vol] 131 mg/dL High 74-99 [facility] Comment on above: Result Comment: The [place] Diabetes Association (ADA) provides guidance for cutoff values for fasting glucose and random glucose. The ADA defines fasting as no caloric intake for at least 8 hours. Fasting plasma glucose results between 100 to 125 mg/dL indicate increased risk for diabetes (prediabetes). Fasting plasma glucose results greater than or equal to 126 mg/dL meet the criteria for diagnosis of diabetes. In the absence of unequivocal hyperglycemia, results should be confirmed by repeat testing. In a patient with classic symptoms of hyperglycemia or hyperglycemic crisis, random plasma glucose results greater than or equal to 200 mg/dL meet the criteria for diagnosis of diabetes. Reference: Standards of Medical Care in Diabetes 2016, [place] Diabetes Association. Diabetes Care. 2016.39(Suppl 1). Performed By: #### M G1, BMP, PHOS, CBCDIF ####[facility] [address] [place], [place] [phone] Potassium [Moles/Vol] 4.4 mmol/L Normal 3.7-5.1 [facility] Comment on above: Performed By: #### M G1, BMP, PHOS, CBCDIF ####[facility] [address], [place] [phone] Sodium [Moles/Vol] 137 mmol/L Normal 136-144 [facility] Comment on above: Performed By: #### M G1, BMP, PHOS, CBCDIF ####[facility] [address]CF[address], [place] [phone] Urea nitrogen [Mass/Vol] 17 mg/dL Normal 9-24 [facility] Comment on above: Performed By: #### M G1, BMP, PHOS, CBCDIF ####[facility] [address], [place] [phone] CBC and Differentialon 07-04 -2021 Abs Baso <0.03 Normal <0.11 [facility] Comment on above: Performed By: #### C BCDIF, BMP, PHOS ####[facility] AveClevelBrownsville, [place] [phone] Abs Eosin <0.03 Normal <0.46 [facility] Comment on above: Performed By: #### C BCDIF, BMP, PHOS ####[facility] AveClevelJoseph [place]ille [phone] Abs Jeff Davis 0.75 k/uL Normal <0.87 [facility] Comment on above: Performed By: #### C BCDIF, BMP, PHOS ####[place] [address]ClevelBrownsville, [place] [phone] Abs Neut 7.52 k/uL High 1.45-7.50 [facility] Comment on above: Performed By: #### C BCDIF, BMP, PHOS ####[place] [address] [place] [phone] Absolute nRBC <0.01 Normal <0.01 [facility] Comment on above: Performed By: #### C BCDIF, BMP, PHOS ####[place] [address] AveClevelBrownsville, [place] [phone] Basophils/100 WBC (Bld) 0.1 % Normal [facility] Comment on above: Performed By: #### C BCDIF, BMP, PHOS ####[facility]ClevelandLas [place], [place] [phone] DTYPE Auto Diff Normal [facility] Comment on above: Performed By: #### C BCDIF, BMP, PHOS ####[facility]ClevelBrownsville, [place] [phone] Eosinophils/100 WBC (Bld) 0.2 % Normal [facility] Comment on above: Performed By: #### C BCJOHNFKOBI, PHOS ####[facility] AveClevelBrownsville, [place] [phone] Erythrocyte distribution wid th (RBC) [Ratio] 14.0 % Normal 11.5-15.0 [facility] Comment on above: Performed By: #### C BCKOBI CHEN, PHOS ####[place] [address] [place] [phone] Hematocrit (Bld) [Volume fraction] 41.8 % Normal 3 9.0-51.0 [facility] Comment on above: Performed By: #### C BCKOBI CHEN, PHOS ####[place] [address] [place] [phone] Hemoglobin (Bld) [Mass/Vol] 13.8 g/dL Normal 13.0-17. 0 [facility] Comment on above: Performed By: #### C BCJOHNFKOBI, PHOS ####[place] [address] [place] [phone] Lymphocytes (Bld) [#/Vol] 0.56 10*3/uL Low 1.00-4.0 0 [facility] Comment on above: Performed By: #### C BCDIF BMP, PHOS ####[place] [address] [place] [phone] Lymphocytes/100 WBC (Bld) 6.3 % Normal [facility] Comment on above: Performed By: #### C BCDIF BMP, PHOS ####[place] [address]ClevelBrownsville, [place] [phone] MCH 29.0 pG Normal 26.0-34.0 [facility] Comment on above: Performed By: #### C BCDIF, BMP, PHOS ####[place] [address]ClevelJoseph [place] [phone] MCHC (RBC) [Mass/Vol] 33.0 g/dL Normal 30.5-36.0 [facility] Comment on above: Performed By: #### C BCDIF, BMP, PHOS ####[facility] AveClevelBrownsville, [place] [phone] MCV (RBC) [Entitic vol] 87.8 fL Normal 80.0-100.0 [facility] Comment on above: Performed By: #### C BCDIF, BMP, PHOS ####[place] [address]ClevelandLas [place], [place] [phone] Monocytes/100 WBC (Bld) 8.5 % Normal [facility] Comment on above: Performed By: #### C BCDIF, BMP, PHOS ####[place] [address]ClevelBrownsville, [place] [phone] Neutrophils/100 WBC (Bld) 84.9 % Normal [facility] Comment on above: Performed By: #### C BCDIF, BMP, PHOS ####[place] [address]ClevelB[place], [place] [phone] NRBCs 0.0 /100 WBC Normal 0 [facility] Comment on above: Performed By: #### C BCDIF, BMP, PHOS ####[place] [address]ClevelBrownsville, [place] [phone] Platelet mean volume (Bld) [Entitic vol] 10.1 fL Normal 9.0-12.7 [facility] Comment on above: Performed By: #### C BCDIF, BMP, PHOS ####[place] [address] AveClevelandLas [place], [place] [phone] Platelets (Bld) [#/Vol] 184 10*3/uL Normal 150-400 [facility] Comment on above: Performed By: #### C BCDIF, BMP, PHOS ####[place] [address]ClevelBrowns[place], [place] [phone] RBC (Bld) [#/Vol] 4.76 10*6/uL Normal 4.20-6.00 [facility] Comment on above: Performed By: #### C BCDIF, BMP, PHOS ####[facility]CMelissa [place] [phone] WBC (Bld) [#/Vol] 8.86 10*3/uL Normal 3.70-11.00 [facility] Comment on above: Performed By: #### C BCDIF, BMP, PHOS ####[place] [address]ClevelandVeronica [place] [phone] Abs Baso <0.03 Normal <0.11 [facility] Comment on above: Performed By: #### M G1, BMP, PHOS, CBCDIF ####[place] [address] AveClevelJoseph [place] [phone] Abs Eosin <0.03 Normal <0.46 [facility] Comment on above: Performed By: #### M G1, BMP, PHOS, CBCDIF ####[place] [address]ClevelJoseph [place] [phone] Abs Jeff Davis 0.73 k/uL Normal <0.87 [facility] Comment on above: Performed By: #### M G1, BMP, PHOS, CBCDIF ####[place] [address]ClevelandVeronica [place] [phone] Abs Neut 6.19 k/uL Normal 1.45-7.50 [facility] Comment on above: Performed By: #### M G1, BMP, PHOS, CBCDIF ####[place] [address]ClevelandVeronica [place] [phone] Absolute nRBC <0.01 Normal <0.01 [facility] Comment on above: Performed By: #### M G1, BMP, PHOS, CBCDIF ####[place] [address] AveClevelJoseph [place] [phone] Basophils/100 WBC (Bld) 0.3 % Normal [facility] Comment on above: Performed By: #### M G1, BMP, PHOS, CBCDIF ####[place] [address]CFaywood, [place] [phone] DTYPE Auto Diff Normal [facility] Comment on above: Performed By: #### M G1, BMP, PHOS, CBCDIF ####[place] [address], [place] [phone] Eosinophils/100 WBC (Bld) 0.3 % Normal [facility] Comment on above: Performed By: #### M G1, BMP, PHOS, CBCDIF ####[place] [address], [place] [phone] Erythrocyte distribution wid th (RBC) [Ratio] 14.1 % Normal 11.5-15.0 [facility] Comment on above: Performed By: #### M G1, BMP, PHOS, CBCDIF ####[place] [address], [place] [phone] Hematocrit (Bld) [Volume fraction] 41.3 % Normal 3 9.0-51.0 [facility] Comment on above: Performed By: #### M G1, BMP, PHOS, CBCDIF ####[place] [address], [place] [phone] Hemoglobin (Bld) [Mass/Vol] 13.7 g/dL Normal 13.0-17. 0 [facility] Comment on above: Performed By: #### M G1, BMP, PHOS, CBCDIF ####[place] [address], [place] [phone] Lymphocytes (Bld) [#/Vol] 0.80 10*3/uL Low 1.00-4.0 0 [facility] Comment on above: Performed By: #### M G1, BMP, PHOS, CBCDIF ####[facility]ClevelBrownsville, [place] [phone] Lymphocytes/100 WBC (Bld) 10.3 % Normal [facility] Comment on above: Performed By: #### M G1, BMP, PHOS, CBCDIF ####[facility]CF[address], [place] [phone] MCH 29.0 pG Normal 26.0-34.0 [facility] Comment on above: Performed By: #### M G1, BMP, PHOS, CBCDIF ####[place] [address], [place] [phone] MCHC (RBC) [Mass/Vol] 33.2 g/dL Normal 30.5-36.0 [facility] Comment on above: Performed By: #### M G1, BMP, PHOS, CBCDIF ####[place] [address], [place] [phone] MCV (RBC) [Entitic vol] 87.3 fL Normal 80.0-100.0 [facility] Comment on above: Performed By: #### M G1, BMP, PHOS, CBCDIF ####[place] [address]CF[address], [place] [phone] Monocytes/100 WBC (Bld) 9.4 % Normal [facility] Comment on above: Performed By: #### M G1, BMP, PHOS, CBCDIF ####[facility]ClevelBrownsville, [place] [phone] MPV Unable to report Normal 9.0-12.7 [facility] Comment on above: Performed By: #### M G1, BMP, PHOS, CBCDIF ####[facility]ClevelBrownsville, [place] [phone] Neutrophils/100 WBC (Bld) 79.7 % Normal [facility] Comment on above: Performed By: #### M G1, BMP, PHOS, CBCDIF ####[facility]CF[address], [place] [phone] NRBCs 0.0 /100 WBC Normal 0 [facility] Comment on above: Performed By: #### M G1, BMP, PHOS, CBCDIF ####[address]CF[address], [place] [phone] Platelet Count Platelets Clumped, E stimate Normal Normal 150-400 [facility] Comment on above: Result Comment: Resu lt checked and verified No clot detected. Platelet count confirmed by manual review of peripheral blood smear. Performed By: #### M G1, BMP, PHOS, CBCDIF ####[address]Louis[address], [place] [phone] RBC (Bld) [#/Vol] 4.73 10*6/uL Normal 4.20-6.00 [facility] Comment on above: Performed By: #### M G1, BMP, PHOS, CBCDIF ####[address] [place], [place] [phone] WBC (Bld) [#/Vol] 7.76 10*3/uL Normal 3.70-11.00 [facility] Comment on above: Performed By: #### M G1, BMP, PHOS, CBCDIF ####[address] [place], [place] [phone] Magnesiumon 08-14-2020 Magnesium [Mass/Vol] 2.3 mg/dL Normal 1.7-2.3 [facility] [place] [facility] Comment on above: Performed By: #### M G1 ####[address] [place], [place] [phone] Magnesium [Mass/Vol] 2.2 mg/dL Normal 1.7-2.3 [facility] [place] [facility] Comment on above: Performed By: #### M G1, BMP, PHOS, CBCDIF ####[facility] [place], [place] [phone] Phosphoruson 08-14-2020 Phosphate [Mass/Vol] 2.1 mg/dL Low 2.7-4.8 [facility] [place] [facility] Comment on above: Performed By: #### C BCDIF, BMP, PHOS ####[facility] [place], [place] [phone] Phosphate [Mass/Vol] 2.6 mg/dL Low 2.7-4.8 [facility] [place] [facility] Comment on above: Performed By: #### M G1, BMP, PHOS, CBCDIF ####[facility] [place], [place] [phone] ANES Shanelle 08-13-2020 ANES POST HNO ID: [id number] Author: Tristan Orellana DO Service: Anesthesiology Author Type: Anesthesiologist Type: Anesthesia PostOp Filed: 08/13/2020 2:12 PM Note Text: POST ANESTHESIA EVALUATION NOTE SERVICE DATE: 08/12/2020 SERVICE TIME: 1:30 : 1950 Vitals: 08/13/20 0123 08/13/20 0502 08/13/20 0908 08/13/20 1348 Temp: 36.3 ?C (97.3 ?F) 36.3 ?C (97.3 ?F) 36.3 ?C (97.3 ?F) 36.4 ?C (97.5 ?F) 08/13/20 0502 08/13/20 0908 08/13/20 1348 08/13/20 1352 BP: 152/84 157/83 181/85 146/73 08/13/20 0502 08/13/20 0807 08/13/20 0908 08/13/20 1348 Pulse: 76 75 63 100 08/13/20 0502 08/13/20 0807 08/13/20 0908 08/13/20 1348 Resp: 16 16 20 16 08/13/20 0502 08/13/20 0807 08/13/20 0908 07/03/21 1348 SpO2: 96% 95% 95% 98% Validated Vital Signs: Yes POST ANES STATUS: No apparent anesthetic complications. The patient is appropriately hydrated with stable respiratory and cardiovascular status. Patient has safe and adequate airway control. The patient has appropriate pain relief and no significant post operative nausea or vomiting. The patient has achieved baseline mental status. Intra-Operative Events: No Significant Anesthesia Events Further assessment by Anesthesia Service: None Other Remarks: SIGNATURE: Tristan Orellana DO PATIENT NAME: Shad Rodriguez DATE: August 13, 2020 TIME: 2:11 PM PAGER/CONTACT #: [phone] Normal [facility] Basic Metabolic Panlon 08-13 Anion gap [Moles/Vol] 12 mmol/L Normal 9-18 [facility] Comment on above: Performed By: #### C BCDIF, PHOS, BMP ####[facility], [place] [phone] Calcium [Mass/Vol] 9.2 mg/dL Normal 8.5-10.2 [facility] Comment on above: Performed By: #### C BCDIF, PHOS, BMP ####[facility] [place] [phone] Chloride [Moles/Vol] 100 mmol/L Normal 97-105 [facility] [place] [facility] Comment on above: Performed By: #### C BCDIF, PHOS, BMP ####[facility]Louis[place], [place] [phone] CO2 [Moles/Vol] 21 mmol/L Low 22-30 [facility] Comment on above: Performed By: #### C BCDIF, PHOS, BMP ####[facility], [place] [phone] Creatinine [Mass/Vol] 1.20 mg/dL Normal 0.73-1.22 [facility] Comment on above: Performed By: #### C BCDIF, PHOS, BMP ####[facility] [address]CF[address], [place] [phone] eGFR- Amer. >60 Normal [facility] Comment on above: Performed By: #### C MERNA FULTON BMP ####[facility] [place], [place] [phone] eGFR-All Other Races >60 Normal [facility] [place] [facility] Comment on above: Result Comment: eGFR (Estimated GFR) Units of measure: mL/min/1.73 meters squared eGFR is derived from the reexpressed MDRD Study equation using the following parameters: serum creatinine, age, gender and race. The creatinine assay has been calibrated to be traceable to IDMS. An eGFR <60 mL/min/1.73m2 for >3 months is consistent with chronic kidney disease. Refer to KDOQI guidelines for clinical interpretation. In patients with unstable renal function, e.g. those with acute kidney injury, the eGFR may not accurately reflect actual GFR. Performed By: #### C MERNA FULTON BMP ####[facility] [place], [place] [phone] Glucose [Mass/Vol] 149 mg/dL High 74-99 [facility] Comment on above: Result Comment: The [place] Diabetes Association (ADA) provides guidance for cutoff values for fasting glucose and random glucose. The ADA defines fasting as no caloric intake for at least 8 hours. Fasting plasma glucose results between 100 to 125 mg/dL indicate increased risk for diabetes (prediabetes). Fasting plasma glucose results greater than or equal to 126 mg/dL meet the criteria for diagnosis of diabetes. In the absence of unequivocal hyperglycemia, results should be confirmed by repeat testing. In a patient with classic symptoms of hyperglycemia or hyperglycemic crisis, random plasma glucose results greater than or equal to 200 mg/dL meet the criteria for diagnosis of diabetes. Reference: Standards of Medical Care in Diabetes 2016, [place] [employer]. Diabetes Care. 2016.39(Suppl 1). Performed By: #### C MERAN FULTON BMP ####[facility] [place], [place] [phone] Potassium Unable to assay due to interference from hemolysis. Suggest reorder as clinically indicated. Normal 3.7-5.1 [facility] Comment on above: Result Comment: Call ed to and read back by: BLAKE RN [id number] 08/13/2020 BRADLEY Performed By: #### C BCDIF, PHOS, BMP ####[facility]CF[address], [place] [phone] Sodium [Moles/Vol] 133 mmol/L Low 136-144 [facility] Comment on above: Performed By: #### C BCDIF, PHOS, BMP ####[place] [address]CM[address] [place] [phone] Urea nitrogen [Mass/Vol] 20 mg/dL Normal 9-24 [facility] Comment on above: Performed By: #### C BCDIF, PHOS, BMP ####[place] [address], [place] [phone] CBC and Differentialon 08-13 Abs Baso <0.03 Normal <0.11 [facility] Comment on above: Performed By: #### C BCDIF, PHOS, BMP ####[place] [address] [place] [phone] Abs Eosin <0.03 Normal <0.46 [facility] Comment on above: Performed By: #### C BCDIF, PHOS, BMP ####[facility] [place] [phone] Abs Jeff Davis 0.96 k/uL High <0.87 [facility] Comment on above: Performed By: #### C BCDIF, PHOS, BMP ####[facility] [place] [phone] Abs Neut 12.86 k/uL High 1.45-7.50 [facility] Comment on above: Performed By: #### C BCDIF, PHOS, BMP ####[place] [address], [place] [phone] Absolute nRBC <0.01 Normal <0.01 [facility] Comment on above: Performed By: #### C MERNA FULTON, BMP ####[place] [address], [place] [phone] Basophils/100 WBC (Bld) 0.1 % Normal [facility] Comment on above: Performed By: #### C MERNA FULTON, BMP ####[place] [address] [place] [phone] DTYPE Auto Diff Normal [facility] Comment on above: Performed By: #### C MERNA FULTON, BMP ####[place] [address]CF[address], [place] [phone] Eosinophils/100 WBC (Bld) 0.0 % Normal [facility] Comment on above: Performed By: #### C MERNA FULTON, BMP ####[place] [address], [place] [phone] Erythrocyte distribution wid th (RBC) [Ratio] 13.7 % Normal 11.5-15.0 [facility] Comment on above: Performed By: #### C MERNA FULTON, BMP ####[place] [address], [place] [phone] Hematocrit (Bld) [Volume fraction] 44.0 % Normal 3 9.0-51.0 [facility] Comment on above: Performed By: #### C MERNA FULTON, BMP ####[place] [address], [place] [phone] Hemoglobin (Bld) [Mass/Vol] 14.6 g/dL Normal 13.0-17. 0 [facility] Comment on above: Performed By: #### C MERNA FULTON, BMP ####[place] [address] [place] [phone] Lymphocytes (Bld) [#/Vol] 0.49 10*3/uL Low 1.00-4.0 0 [facility] Comment on above: Performed By: #### C MERNA FULTON, BMP ####[facility], [place] [phone] Lymphocytes/100 WBC (Bld) 3.4 % Normal [facility] Comment on above: Performed By: #### C MERNA FULTON, BMP ####[facility]ClevelB[address], [place] [phone] MCH 29.2 pG Normal 26.0-34.0 [facility] Comment on above: Performed By: #### C MERNA FULTON, BMP ####[place] [address], [place] [phone] MCHC (RBC) [Mass/Vol] 33.2 g/dL Normal 30.5-36.0 [facility] Comment on above: Performed By: #### C MERNA FULTON, BMP ####[place] [address], [place] [phone] MCV (RBC) [Entitic vol] 88.0 fL Normal 80.0-100.0 [facility] Comment on above: Performed By: #### C MERNA FULTON, BMP ####[place] [address]ClevelB[place], [place] [phone] Monocytes/100 WBC (Bld) 6.7 % Normal [facility] Comment on above: Performed By: #### C MERNA FULTON, BMP ####[place] [address]ClevelBrowns[place], [place] [phone] Neutrophils/100 WBC (Bld) 89.8 % Normal [facility] Comment on above: Performed By: #### C MERNA UFLTON, BMP ####[facility]ClevelB[address], [place] [phone] NRBCs 0.0 /100 WBC Normal 0 [facility] Comment on above: Performed By: #### C MERNA FULTON BMP ####[address] [place], [place] [phone] Platelet mean volume (Bld) [Entitic vol] 10.2 fL Normal 9.0-12.7 [facility] Comment on above: Performed By: #### C MERNA FULTON, BMP ####[address] [phone] Platelets (Bld) [#/Vol] 200 10*3/uL Normal 150-400 [facility] Comment on above: Performed By: #### C MERNA FULTON BMP ####[address] [place], [place] [phone] RBC (Bld) [#/Vol] 5.00 10*6/uL Normal 4.20-6.00 [facility] Comment on above: Performed By: #### C MERNA FULTON BMP ####[address] [phone] WBC (Bld) [#/Vol] 14.32 10*3/uL High 3.70-11.00 [facility] [place] [facility] Comment on above: Performed By: #### C MERNA FULTON, BMP ####[address] [phone] Magnesiumon 08-13-2020 Magnesium [Mass/Vol] 2.0 mg/dL Normal 1.7-2.3 [facility] [place] [facility] Comment on above: Performed By: #### M G1 ####[address] [phone] Phosphoruson 08-13-2020 Phosphate [Mass/Vol] 2.9 mg/dL Normal 2.7-4.8 [facility] [place] [facility] Comment on above: Performed By: #### C BCDIF, PHOS, BMP ####[facility] [address] [place], [place] [phone] Potassiumon 08-13-2020 Potassium [Moles/Vol] 4.7 mmol/L Normal 3.7-5.1 [facility] Comment on above: Performed By: #### K 1 ####[facility] [place], [place] [phone] THERAPY NTon 08-13-2020 THERAPY NT HNO ID: [id number] Author: Arlin Mantilla PT Service: Physical Therapy Author Type: Physical Therapist Type: Therapy (PT/OT/Speech/Resp) Filed: 08/13/2020 4:38 PM Note Text: Physical Therapy Evaluation SERVICE DATE: 08/13/2020 SERVICE TIME: 1550 to 1620 ROOM: [place] [address] Recommended Discharge Disposition: Subacute/SNF 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 Anticipated Discharge Needs: Physical Assist at Home Physical Assist at Home for: Cleaning;Laundry;Meals;Stairs;Safety;Self Care;Shopping;Transportation Recommended Discharge Equipment: To Be Determined PT 6 Clicks Score: 17 Precautions/Activity Restrictions: Fall Risk;Lines/Tubes/Drains;Abdominal Current Hospital Course: s/p TAR for ventral hernia repair Reason for Hospital Admission: Pt admitted for scheduled procedure for ventral hernia repair Relevant Past Medical History: Asthma, HTN, T2DM, CKD3, PE/DVTs, factor V leiden on warfarin since 2016 Response to Therapy Interventions: Good participation in activities Continue skilled needs due to: Continued monitoring of vital signs during mobility required, Functional mobility/skill impairments, Safety concerns Pt completing bed mobility, transfer to chair and gait with 1 caregiver assist. Pt ambulating short distances with IV pole. Activity limited by dizziness and nausea. Physical Therapy Problem List: Education Deficit;Pain;Safety Deficits;Impaired Self Care;Decreased Activity Tolerance;Decreased Strength;Functional Mobility Impairment;Balance Impaired Treatment Interventions: Education;Self Care / Home Management;Energy Conservation Training;Joint Mobility;Strengthening;Functional Mobility Training;Balance Training;Neuromuscular Re-education;Pain Management Home Environment Patient Lives With: (pt planning to move into assisted living facility ) Assistance Available: PRN Entry To Home: Stairs;With Rail Number Of Stairs Into Home: 2 Number Of Stairs To Bed/Bath: 0 Tub/Shower Type: walk-in 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 CURRENT FUNCTIONAL STATUS: Most recent performance Current Functional Mobility Assist Level Additional Information Rolling Minimal Assistance Supine to Sit Minimal Assistance Sit to Supine Scooting Minimal Assistance Sit to Stand Contact Guard Assistance Stand to Sit Contact Guard Assistance Bed to Chair Contact Guard Assistance Bed To Chair Transfer Type: Stepping Toilet/Commode Gait Contact Guard Assistance Gait Device: IV Pole Gait Distance (feet): 100 Stairs Curb Step Car Transfer Blank pérez indicate activity not attempted General Deviations/Observations: Antalgic gait;Shania decreased;Flexed trunk posture;Lateral sway increased -[facility]: 7: Walk 25 feet or more Learning/Educational Needs: Discharge Plan;Disease Process;Equipment;Family Education/Training;Functional Activities/Mobility;Pain Management;Plan of Care;Precautions;Rehabilitation Techniques and Procedures;Respiratory Function;Safety Goals for Plan of Care: Patient /Caregiver Goals: Go Home Goals: Patient will demonstrate understanding of importance of mobility during hospital stay and resolve all functional needs identified. Rehab Potential: Excellent Patient will be discontinued from Physical Therapy when no further skilled needs are identified in this setting. PLAN: PT Frequency: 3 times per week Plan of Care developed with: Patient TREATMENT INTERVENTIONS: Therapy Diagnosis: Reduced mobility-other Interventions Provided: Evaluation;Therapeutic Activity (75327);Gait Training (86863) $ Evaluation-Low (92618) Billed Units: 1 unit Therapeutic Activity (64985) Treatment Minutes: 5 $ Therapeutic Activity (08200) Billed Units: 0 units Gait Training (83652) Treatment Minutes: 10 $ Gait Training (72724) Billed Units: 1 unit Training AND education provided in: Anatomy and impact on deficits, Assistive device use, Bed mobility, Benefits of in-hospital mobility, Discharge planning, Energy conservation, Expected functional level, Falls prevention, Gait pattern, reduction of deviations, Pain Neuroscience, Positioning, Precautions/restrictions, Role of Physical Therapy, Treatment protocol The following therapeutic skills were used: Activity dosing, Cues for sequencing/proper technique for activity, Cuing tactile, Cuing verbal, Cuing visual, Movement facilitation, Muscle activation facilitation, Physical assist, Postural alignment correction Total Timed Code Treatment Minutes: 15 Total Treatment Time (minutes): 30 Please see discipline specific clinical documentation flowsheet for complete details for this therapy evaluation/treatment. SIG (more content not included)... Normal [facility] THERAPY NT HNO ID: [id number] Author: Alyse Henson OT/L Service: Occupational Therapy Author Type: Occupational Therapist Type: Therapy (PT/OT/Speech/Resp) Filed: 08/13/2020 2:00 PM Note Text: Occupational Therapy Evaluation SERVICE DATE: 08/13/2020 SERVICE TIME: 1313 to 1347 ROOM: [place] [address] Recommended Discharge Disposition: Subacute/SNF Recommended Discharge Disposition Comments: Pt reported plans to d/c to rehab facility upon d/c and would benefit from SNF to maximize return to PLOF with ADls and IADLs Recommended Discharge Disposition Due to: Patient requires an active, intensive rehabilitation therapy program due to:;Patient requires daily, facility-based rehabilitation from at least one discipline due to:;decline in functional status requiring daily skilled care;ongoing intervention of multiple therapy disciplines Anticipated Discharge Needs: Physical Assist at Home Physical Assist at Home for: Cleaning;Laundry;Meals;Stairs;Safety;Self Care;Shopping;Transportation OT 6 Clicks Score: 18 Precautions/Activity Restrictions: Fall Risk;Lines/Tubes/Drains;Abdominal Current Hospital Course: s/p TAR for ventral hernia repair Reason for Hospital Admission: Pt admitted for scheduled procedure for ventral hernia repair Relevant Past Medical History: Asthma, HTN, T2DM, CKD3, PE/DVTs, factor V leiden on warfarin since 2016 Response to Therapy Interventions: Good participation in activities, Limited participation, Pain, Requires additional time to complete activities, Requires encouragement to complete activities Continue skilled needs due to: Safety concerns, Functional impairment Occupational Therapy Problem List: Pain;Safety Deficits;Impaired Self Care;Decreased Activity Tolerance;Functional Mobility Impairment;Balance Impaired Cognition/Communication Deficits Orientation Deficits: (AOx3) Responsiveness: Alert, Awake Follows Commands: 2-step Commands, Cueing Needed Cueing to Follow Commands: Minimum Executive Function Deficits: Safety Awareness, Judgement Judgement Deficit: Minimal impairment Safety Awareness Deficit: Minimal impairment Cognitive Clinical Tests and Screens: (4AT) 4 AT (1) Alertness This includes patients who may be markedly drowsy (eg. difficult to rouse and/or obviously sleepy during assessment) or agitated/hyperactive. Observe the patient. If asleep, attempt to wake with speech or gentle touch on shoulder. Ask the patient to state their name and address to assist rating. [place]orin (Normal ? fully alert, but not agitated, throughout assessment = 0; Mild sleepiness for <10 seconds after waking, then normal = 0; Clearly abnormal = 4) (2) AMT4 Age, date of , place (name hospital or building), current year. [place] (No mistakes = 0; 1 mistake = 1; 2 or more mistakes/untestable = 2) (3) Attention Ask the patient ?Please tell me the months of the year in backwards order, starting in January?. To assist initial understanding, one prompt of ?what is the month before January?? is permitted. Scorin (Achieves 7 months or more correctly = 0; Starts but scores <7 months/ refuses to start =1; Untestable (cannot start because unwell, drowsy, inattentive) = 2) (4) Acute change or fluctuating course Evidence of significant change or fluctuation in: alertness, cognition, other mental function (eg. paranoia, hallucinations) arising over the last 2 weeks and still evident in last 24 hours. Scorin (No = 0; Yes = 4) 4AT Score: 0 4 or above: possible delirium +/- cognitive impairment 1-3: possible cognitive impairment 0: delirium or severe cognitive impairment unlikely (but delirium still possible if (4) information is incomplete). 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 [facility] NT HNO ID: [id number] Author: Alyse Henson OT/L Service: Occupational Therapy Author Type: Occupational Therapist Type: Therapy (PT/OT/Speech/Resp) Filed: 08/13/2020 10:51 AM Note Text: OCCUPATIONAL THERAPY MISSED VISIT SERVICE DATE: 08/13/2020 SERVICE TIME: 1048 to 1048 ROOM: [place] [address] Attempted Evaluation. Patient not seen due to Another service at bedside. PT at bedside. Will re-attempt as able. SIGNATURE: Alyse Henson OT/Roger PATIENT NAME: Shad Rodriguez DATE: August 13, 2020 TIME: 10:51 AM [facility] NT HNO ID: [id number] Author: Arlin Mantilla PT Service: Physical Therapy Author Type: Physical Therapist Type: Therapy (PT/OT/Speech/Resp) Filed: 08/13/2020 10:49 AM Note Text: PHYSICAL THERAPY MISSED VISIT SERVICE DATE: 08/13/2020 SERVICE TIME: 1048 to 1048 ROOM: [place] [address] Attempted Evaluation. Patient not seen due to Declined. Pt requesting PT to reattempt after lunch. PT will reattempt as able and appropriate. SIGNATURE: Arlin Mantilla PT PATIENT NAME: Shad Rodriguez DATE: August 13, 2020 TIME: 10:49 AM [facility] XR ABDOMEN 1V SUPINEon 08-13 XR ABDOMEN 1V SUPINE * * *Final Report* * * DATE OF EXAM: Aug 13 2020 12:09PM JUAN JOSE [id number] - XR ABDOMEN 1V SUPINE / PROCEDURE REASON: Nausea, vomiting * * * * Physician Interpretation * * * * ABDOMEN, 1 VIEW 08/13/2020 labeled [id number] CLINICAL INFORMATION: Nausea, vomiting. TECHNIQUE: Supine frontal view, 2 image(s) COMPARISON: Outside CT abdomen/pelvis, 11/13/2019. RESULT: Lower abdominal surgical drains. Coude catheter in the pelvis. No dilated, gas-filled loops of small or large bowel. Lung bases are clear. IMPRESSION: No dilated bowel. High School Professional: VIANCA Transcribe Date/Time: Aug 13 2020 12:32P Dictated by : YRN ARROYO MD This examination was interpreted and the report reviewed and electronically signed by: YRN ARROYO MD on Aug 13 2020 12:33PM EST [id number] [facility] ALLIED HEALTHon 08-12-2020 ALLIED HEALTH HNO ID: [id number] Author: Chaplain Stephanie Student Service: Spiritual Care Author Type: Student Type: Allied Health Filed: 08/12/2020 8:52 AM Note Text: SPIRITUAL CARE Spiritual Care Visit Record Name: Shad Rodriguez Date: August 12, 2020 Type of Visit: Preoperative Prayer/Visit Visit was with (pt, family, other) and name(s): patient. Ministry Provided During Visit: Prayer / Meditation Notes: Director Of Infection Prevention responded to a request for pre-surgery prayer. Pt appeared to be a good spirits, expressed optimism and gratitude about his surgery. Director Of Infection Prevention offered prayer and invited Pt to further utilize [facility] services in needed. Referrals: No referral made Will See: As Needed Only Follow-up Notes: Informed patient of Director Of Infection Prevention availability Director Of Infection Prevention Signature: Chaplain Stephanie Student To contact the Spiritual Care Department: Please call [phone] or Page the On-Call Director Of Infection Prevention at pager [phone] Thank you for the opportunity to be of service. This is an electronically created document. IF PRINTED, PLEASE DO NOT REMOVE FROM THE CHART OR MODIFY PRINTED COPY. [facility] BRIEF OP NOTon 08-12-2020 BRIEF OP NOT HNO ID: [id number] Author: Cassius Gatica MD Service: General Surgery Author Type: Resident Type: Brief Op Note Filed: 08/12/2020 11:53 AM Note Text: BRIEF OP NOTE LOG ID: [id number] Surgery/Procedure Date: 08/12/2020 Incision/Procedure Start Time: 9:21 AM Incision Close/Procedure End Time: 11:36 AM Surgeon(s)/Proceduralist(s) and Organ Tuner(s): Surgeon(s) and Role: * Felicia Amaya MD - Primary * Cassius Gatica MD - Resident - Assisting Procedure(s): Open ventral hernia repair with mesh, with bilateral transversus abdominis release Anesthesia: General Findings: - Adhesions from prior surgery, most extensive at the former ileostomy site - Bilateral TAR performed, with adequate mobilization of the posterior sheath to allow for midline closure without tension - Heavyweight mesh (30 x 30 cm) placed anterior to posterior rectus sheath Estimated Blood Loss: 50 mL Specimens: None Complications: None Pre-Op/Pre-Procedure Diagnosis: Incisional hernia Post-Op/Post-Procedure Diagnosis: Same SIGNATURE: Cassius Gatica MD PATIENT NAME: Shad Rodriguez DATE: August 12, 2020 TIME: 11:50 AM PAGER/CONTACT #: [phone] [facility] NURSING PROGon 08-12-2020 NURSING PROG HNO ID: [id number] Author: Alee Baxter RN Service: ? Author Type: Registered Nurse Type: Nursing Progress Note Filed: 08/12/2020 7:53 AM Note Text: Nursing Progress Note Patient Name: Shad Rodriguez Patient Location: [place] [address] Orellana-anesthesia and Dr. Amaya-service at 07. Pt has a cough, stated he has had the cough for years and it is productive. He also stated he has a sore throat which is not new. Denies fever or recent colds. This note was completed by: Alee Baxter [facility] OPERATIVE NOon 08-12-2020 OPERATIVE NO HNO ID: [id number] Author: Felicia Amaya MD Service: General Surgery Author Type: Physician Type: Operative Report Filed: 08/12/2020 2:55 PM Note Text: OPERATIVE REPORT NAME: Shad Rodriguez [facility] #: [id number] DATE: August 12, 2020 AGE: [age] year old SURGEON 1: Felicia Amaya MD SURGEON 2: HAIR TINTER 1: Adriel Gatica MD HAIR TINTER 2: OPERATION: 1. Open right myofascial advancement flap. 2. Open left myofascial advancement flap. 3. Repair of incisional hernia. 4. Implantation of 30 x 30 cm of Prolene mesh. 5. Resection of skin and subcutaneous tissue. 6. Transverse abdominis block with bupivicaine ANESTHESIA: General. PREOPERATIVE DIAGNOSIS: Incisional hernia. POSTOPERATIVE DIAGNOSIS: Incisional hernia. OPERATIVE INDICATIONS: This is a 69 year old male, who has undergone a LAR. The patient now has a large symptomatic hernia. The risks, benefits, and outcomes of open complex abdominal wall reconstruction were discussed in detail, understood and the patient wished to proceed. OPERATIVE FINDINGS: 12 x 20 cm defect OPERATIVE PROCEDURE: The patient was identified, brought to the operating room, and placed in supine position. After general endotracheal anesthesia was administered and all appropriate padding secured to the table, the abdomen was prepped and draped in the usual sterile fashion. Preoperative antibiotics and SCDs were administered. We then began with a midline incision, entered the abdomen sharply. I then took down all the bowel and omentum off the entire anterior abdominal wall. The remainder of the bowel looked okay. I then placed towel over the viscera. I measured the defect to be 12 cm wide x 20 cm long. This certainly would not come back together primarily without tension. I removed all of the old mesh. Then, in order to repair this, I ended up, starting on the right side, incised the posterior rectus sheath, off the rectus muscle, carefully preserving neurovascular bundles, incised the transverse abdominis muscle in the preperitoneal plane, heading back to the psoas down the costal margin down to the center tendon of the diaphragm and into the space of Retzius. This gave us excellent advancement. I then began on the left side, incised the posterior rectus sheath, off the rectus muscle, carefully preserving neurovascular bundles, incised the transverse abdominis muscle, entered the preperitoneal plane, heading back to the psoas on the costal margin down to the central tendon of the diaphragm and heading down into the space of Retzius. We then closed posterior rectus sheath, completely excluding the mesh from the bowel. A bilateral TAP block was performed. I then fashioned a 30 x 30 cm piece of Prolene mesh in a deric configuration using eight #1 PDS sutures, securing it to the xiphoid, tucking down the central tendon of the diaphragm and below the pubis. This gave us excellent coverage. I then closed the midline with running #1 PDS. I then removed some excess skin and hernia sac, then closed the skin in layers. The patient was awoken from anesthesia and taken to the recovery room in stable condition. Please note, Dr. Felicia Amaya, the attending surgeon was present and scrubbed for the entire procedure. INTRAVENOUS FLUIDS: ESTIMATED BLOOD LOSS:50 cc. DRAINS: 2 JIM Drains placed above the mesh but below the fascia SPECIMENS: None COMPLICATIONS: None. ERAS Protocol: Yes Felicia Amaya MD Normal [facility] CBC and Differentialon 08-09 Abs Baso <0.03 Normal <0.11 [facility] Comment on above: Performed By: #### C SEAMUS CBCDIF ####[place] [id number] [place], [place] [phone] Abs [place] 0.45 k/uL Normal <0.87 [facility] Comment on above: Performed By: #### [address] CBCDIF ####[facility] [place], [place] [phone] Abs Neut 3.89 k/uL Normal 1.45-7.50 [facility] Comment on above: Performed By: #### [address] CBCDIF ####[facility] [place], [place] [phone] Absolute nRBC <0.01 Normal <0.01 [facility] Comment on above: Performed By: #### C SEAMUS CBCDIF ####[facility] [place], [place] [phone] Basophils/100 WBC (Bld) 0.4 % Normal [facility] Comment on above: Performed By: #### C MP, CBCDIF ####[place] [address], [place] [phone] DTYPE Auto Diff Normal [facility] Comment on above: Performed By: #### C MP, CBCDIF ####[place] [address] [place] [phone] Eosinophils (Bld) [#/Vol] 0.15 10*3/uL Normal <0.46 [facility] Comment on above: Performed By: #### C MP, CBCDIF ####[place] [address]CF[address], [place] [phone] Eosinophils/100 WBC (Bld) 2.9 % Normal [facility] Comment on above: Performed By: #### C MP, CBCDIF ####[place] [address], [place] [phone] Erythrocyte distribution wid th (RBC) [Ratio] 13.3 % Normal 11.5-15.0 [facility] Comment on above: Performed By: #### C MP, CBCDIF ####[place] [address], [place] [phone] Hematocrit (Bld) [Volume fraction] 44.5 % Normal 3 9.0-51.0 [facility] Comment on above: Performed By: #### C MP, CBCDIF ####[place] [address], [place] [phone] Hemoglobin (Bld) [Mass/Vol] 14.7 g/dL Normal 13.0-17. 0 [facility] Comment on above: Performed By: #### C MP, CBCDIF ####[place] [address], [place] [phone] Lymphocytes (Bld) [#/Vol] 0.68 10*3/uL Low 1.00-4.0 0 [facility] Comment on above: Performed By: #### C MP, CBCDIF ####[facility]levelB[address], [place] [phone] Lymphocytes/100 WBC (Bld) 13.1 % Normal [facility] Comment on above: Performed By: #### C MP, CBCDIF ####[facility]ClevelB[address], [place] [phone] MCH 28.7 pG Normal 26.0-34.0 [facility] Comment on above: Performed By: #### C MP, CBCDIF ####[place] [address], [place] [phone] MCHC (RBC) [Mass/Vol] 33.0 g/dL Normal 30.5-36.0 [facility] Comment on above: Performed By: #### C MP, CBCDIF ####[place] [address], [place] [phone] MCV (RBC) [Entitic vol] 86.9 fL Normal 80.0-100.0 [facility] Comment on above: Performed By: #### C MP, CBCDIF ####[place] [address], [place] [phone] Monocytes/100 WBC (Bld) 8.7 % Normal [facility] Comment on above: Performed By: #### C MP, CBCDIF ####[facility]levelB[address], [place] [phone] Neutrophils/100 WBC (Bld) 74.9 % Normal [facility] Comment on above: Performed By: #### C MP, CBCDIF ####[facility]ClevelB[address], [place] [phone] NRBCs 0.0 /100 WBC Normal 0 [facility] Comment on above: Performed By: #### C MP, CBCDIF ####[facility] [address], [place] [phone] Platelet mean volume (Bld) [Entitic vol] 10.5 fL Normal 9.0-12.7 [facility] Comment on above: Performed By: #### C MP, CBCDIF ####[place] [address], [place] [phone] Platelets (Bld) [#/Vol] 193 10*3/uL Normal 150-400 [facility] Comment on above: Performed By: #### C MP, CBCDIF ####[place] [address] [place], [place] [phone] RBC (Bld) [#/Vol] 5.12 10*6/uL Normal 4.20-6.00 [facility] Comment on above: Performed By: #### C MP, CBCDIF ####[place] [address] [place], [place] [phone] WBC (Bld) [#/Vol] 5.19 10*3/uL Normal 3.70-11.00 [facility] Comment on above: Performed By: #### C MP, CBCDIF ####[facility] [place], [place] [phone] [facility] Nurse Visit (RAIZA) SHAD RODRIGUEZ ([id number]) 1950 M Date Time Provider Department 08/09/20 12:30 PM NURSE NILAY EASTMAN During your visit today, we recorded the following information about you: Ledy Johns RN 08/09/2020 9:33 AM Signed AMBULATORY PATIENT EDUCATION NOTE PRE-OP TEACHING PROCEDURE: IMPLANT MESH/PROSTHESIS VENTRAL HERNIA REPAIR READINESS TO LEARN COGNITIVE ABILITY: Alert and oriented MOTIVATION TO LEARN: Eager Interested FAMILY SUPPORT: None - Unavailable/disinterested INSTRUCTION PROVIDED TO: Patient PATIENT LEARNS BEST BY: Multiple Methods FACTORS AFFECTING LEARNING: None PHYSICAL LIMITATIONS AFFECTING LEARNING: None LEARNING RESPONSE DIAGNOSIS: Incisional hernia without obstruction or gangrene METHOD OF INSTRUCTION: Individual instruction Written instruction - handouts Verbal instruction PATIENT / FAMILY RESPONSE: Verbalizes understanding of: EQUIPMENT USE-Correct use of Equipment INFECTION MANAGEMENT-Signs and symptoms of an infection and importance of contacting the physician MEDICAL REGIMEN-Importance of following prescribed medical regimen PAIN MANAGEMENT-Effective strategies to manage pain in addition to pain medication PHYSICAL RESTRICTIONS-Physical restrictions and recommendations after discharge from the hospital POST-OPERATIVE INSTRUCTIONS-Correct actions to take to reduce postoperative complications PATIENT SAFETY PRINCIPLES SYMPTOM MANAGEMENT-Correct actions to take to manage symptoms associated with his/her disease/illness VTE prevention measures WORSENING CONDITION-Signs and symptoms of a worsening condition that warrant a call to the physician FOLLOW-UP PLAN: Patient instructed to call with any further issues Contact information given. SUPPLEMENTAL MATERIAL: Your Surgical Guide REFERRAL (RECOMMENDATION): None Electronically Signed By: Ledy Johns RN In Department: GENERAL SURGERY Referring Provider: FELICIA AMAYA [[id number]] Allergies As of Date: 08/09/2020 Noted Allergy Reaction PENICILLINS 06/22/2015 16 - Unknown RAGWEED 12/05/2015 12 - Shortness of Breath Date Reviewed: 06/28/2020 Reviewed by: Felicia Amaya MD - Fully Assessed Primary Visit Diagnosis:Incisional hernia, without obstruction or gangrene [K43.2] Prescriptions as of 08/09/2020 Sig: AMLODIPINE 2.5 MG TABLET GLIPIZIDE ER 2.5 MG TABLET, E* Take 2.5 mg by mouth once phil* LISINOPRIL 2.5 MG TABLET Take 2.5 mg by mouth once phil* ATORVASTATIN 10 MG TABLET WARFARIN 4.5 MG ORAL DOSE Take 4 mg by mouth as directe* LOPERAMIDE 2 MG CAPSULE TAKE 2 CAPSULES BY MOUTH BEFO* PANTOPRAZOLE 40 MG TABLET,DEL* Take 1 tablet by mouth DAILY * Problem List As Of Date 08/09/2020 Noted Resolved History of DVT (deep vein thrombosis) [Z86.718] 06/27/2015 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 Essential hypertension [I10] 01/11/2016 Type 2 diabetes mellitus without complication, *01/11/2016 Chronic anticoagulation [Z79.01] 01/11/2016 CKD (chronic kidney disease) [N18.9] 01/11/2016 Factor V Leiden (HCC) [D68.51] 01/11/2016 Pulmonary embolus (HCC) [I26.99] 01/30/2016 Anticoagulation management encounter [Z51.81, Z*01/31/2016 Postoperative pain [G89.18] 02/03/2016 Postoperative ileus (HCC) [K91.89, K56.7] 02/03/2016 02/03/2016 Hypokalemia [E87.6] 02/03/2016 02/03/2016 Hypoalbuminemia [E88.09] 02/03/2016 Hyponatremia [E87.1] 02/03/2016 03/16/2016 Hypocalcemia [E83.51] 02/03/2016 02/03/2016 Hypoproteinemia (HCC) [E77.8] 02/03/2016 Dehydration [E86.0] 02/28/2016 02/28/2016 Acute kidney injury superimposed on CKD (HCC) [*02/28/2016 03/16/2016 Supratherapeutic INR [R79.1] 02/28/2016 02/28/2016 High output ileostomy (HCC) [R19.8, Z93.2] 02/28/2016 02/28/2016 Hypomagnesemia [E83.42] 02/28/2016 02/28/2016 ADAM (acute kidney injury) (HCC) [N17.9] 03/11/2016 History of pulmonary embolism [Z86.711] 03/11/2016 SUMMARY 03/11/2016 H/O: HTN (hypertension) [Z86.79] 07/11/2016 H/O diabetes mellitus [Z86.39] 07/11/2016 Stage 3 chronic kidney disease [N18.30] 07/11/2016 Attention to ileostomy (HCC) [Z43.2] 07/25/2016 07/25/2016 Chronic systolic heart failure (HCC) [I50.22] 10/10/2018 Coronary artery calcification [I25.10, I25.84] 01/02/2019 Encounter Status:Closed by LEDY JOHNS RN on 08/09/20 Normal [facility] Comp Metabolic Panelon 08-09 Albumin [Mass/Vol] 4.0 g/dL Normal 3.9-4.9 [facility] Comment on above: Performed By: #### C MP, CBCDIF ####[facility] [place], [place] [phone] ALP [Catalytic activity/Vol] 121 U/L High 38-113 [facility] Comment on above: Performed By: #### C MP, CBCDIF ####[place] [address], [place] [phone] ALT [Catalytic activity/Vol] 57 U/L High 10-54 [facility] Comment on above: Performed By: #### C MP, CBCDIF ####[facility], [place] [phone] Anion gap [Moles/Vol] 8 mmol/L Low 9-18 [facility] Comment on above: Performed By: #### C MP, CBCDIF ####[place] [address] [place], [place] [phone] AST [Catalytic activity/Vol] 66 U/L High 14-40 [facility] Comment on above: Performed By: #### C MP, CBCDIF ####[facility], [place] [phone] Bilirubin [Mass/Vol] 0.5 mg/dL Normal 0.2-1.3 [facility] [place] [facility] Comment on above: Performed By: #### C MP, CBCDIF ####[facility] [place], [place] [phone] Calcium [Mass/Vol] 9.5 mg/dL Normal 8.5-10.2 [facility] Comment on above: Performed By: #### C MP, CBCDIF ####[facility], [place] [phone] Chloride [Moles/Vol] 104 mmol/L Normal 97-105 [facility] [place] [facility] Comment on above: Performed By: #### C MP, CBCDIF ####[facility], [place] [phone] CO2 [Moles/Vol] 26 mmol/L Normal 22-30 [facility] Comment on above: Performed By: #### C MP, CBCDIF ####[facility] [place], [place] [phone] Creatinine [Mass/Vol] 1.32 mg/dL High 0.73-1.22 [facility] Comment on above: Performed By: #### C MP, CBCDIF ####[facility], [place] [phone] eGFR- Amer. >60 Normal [facility] Comment on above: Performed By: #### C MP, CBCDIF ####[place] [address] [place], [place] [phone] eGFR-All Other Races 54 . Normal [facility] [place] [facility] Comment on above: Result Comment: eGFR (Estimated GFR) Units of measure: mL/min/1.73 meters squared eGFR is derived from the reexpressed MDRD Study equation using the following parameters: serum creatinine, age, gender and race. The creatinine assay has been calibrated to be traceable to IDMS. An eGFR <60 mL/min/1.73m2 for >3 months is consistent with chronic kidney disease. Refer to KDOQI guidelines for clinical interpretation. In patients with unstable renal function, e.g. those with acute kidney injury, the eGFR may not accurately reflect actual GFR. Performed By: #### C MP, CBCDIF ####[facility], [place] [phone] Glucose [Mass/Vol] 122 mg/dL High 74-99 [facility] Comment on above: Result Comment: The [place] Diabetes Association (ADA) provides guidance for cutoff values for fasting glucose and random glucose. The ADA defines fasting as no caloric intake for at least 8 hours. Fasting plasma glucose results between 100 to 125 mg/dL indicate increased risk for diabetes (prediabetes). Fasting plasma glucose results greater than or equal to 126 mg/dL meet the criteria for diagnosis of diabetes. In the absence of unequivocal hyperglycemia, results should be confirmed by repeat testing. In a patient with classic symptoms of hyperglycemia or hyperglycemic crisis, random plasma glucose results greater than or equal to 200 mg/dL meet the criteria for diagnosis of diabetes. Reference: Standards of Medical Care in Diabetes 2016, [place] [employer] Association. Diabetes Care. 2016.39(Suppl 1). Performed By: #### C SEAMUS, CBCDIF ####[place] [address] [place], [place] [phone] Potassium [Moles/Vol] 4.4 mmol/L Normal 3.7-5.1 [facility] Comment on above: Performed By: #### C SEAMUS, CBCDIF ####[facility] [place] [address] [phone] Protein [Mass/Vol] 6.8 g/dL Normal 6.3-8.0 [facility] Comment on above: Performed By: #### C SEAMUS, CBCDIF ####[facility] [address] [place], [place] [phone] Sodium [Moles/Vol] 138 mmol/L Normal 136-144 [facility] Comment on above: Performed By: #### C SEAMUS, CBCDIF ####[facility] [address], [place] [phone] Urea nitrogen [Mass/Vol] 20 mg/dL Normal 9-24 [facility] Comment on above: Performed By: #### C SEAMUS, CBCDIF ####[facility] [place], [place] [phone] HISTORY PHYSICALon HISTORY PHYSICAL HNO ID: [id number] Author: Sterling Bhatia MD Service: ? Author Type: Resident Type: HANDP Filed: 08/09/2020 3:18 PM Note Text: HISTORY AND PHYSICAL EXAMINATION SERVICE DATE: 08/09/2020 SERVICE TIME: 1420 PRIMARY CARE PHYSICIAN: Cynthia Aguila CNP, ACCESS CONTROL OFFICER REASON FOR VISIT: Shad Rodriguez is a 69 year old male who is scheduled for IMPLANT MESH/PROSTHESIS VENTRAL HERNIA REPAIR at the request of Dr. Felicia Amaya for consultation. My final recommendation will be communicated back to the requesting physician by way of shared medical record or letter. The patient has the following: ACTIVE PROBLEM LIST History of Dvt (Deep Vein Thrombosis) Rectosigmoid Cancer (Hcc) Essential Hypertension Type 2 Diabetes Mellitus Without Complication, Without Long-Term Current Use of Insulin (Hcc) Chronic Anticoagulation Ckd (Chronic Kidney Disease) Factor V Leiden (Hcc) Pulmonary Embolus (Hcc) Anticoagulation Management Encounter Postoperative Pain Hypoalbuminemia Hypoproteinemia (Hcc) Adam (Acute Kidney Injury) (Hcc) History of Pulmonary Embolism Summary H/O: Htn (Hypertension) H/O Diabetes Mellitus Stage 3 Chronic Kidney Disease (Hcc) Chronic Systolic Heart Failure (Hcc) Coronary Artery Calcification Subjective CHIEF COMPLAINT: Ventral Hernia HPI: Patient is a 69 year old male with history of Asthma, HTN, T2DM, CKD3, PE/DVTs, factor V leiden on warfarin since 2015 who presents for preoperative evaluation. He has had a ventral hernia since 2015 when he had surgery for rectosigmoid cancer. He had an ileostomy at that time, which was reversed in 2017. He also underwent chemo and radiation with last round in 2015. He is scheduled for the above procedure. 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 - PICC LINE INSERT/CONSULT 01/31/2016 - TOOTH EXTRACTION FAMILY HISTORY Problem Relation Age of Onset - other (bone cancer) Father SOCIAL HISTORY: Social History Tobacco Use - Smoking status: Never Smoker - Smokeless tobacco: Never Used Vaping Use - Vaping Use: Never used Substance Use Topics - Alcohol use: No - Drug use: No MEDICATIONS: Prior to Admission medications as of 08/09/20 1443 Medication Sig Last Dose Taking amLODIPine (NORVASC) 2.5 mg tablet Taking Yes glipiZIDE (GLUCOTROL XL) 2.5 mg 24 hr tablet Take 2.5 mg by mouth once daily. Taking Yes lisinopril 2.5 mg tablet Take 2.5 mg by mouth once daily. Taking Yes atorvastatin (LIPITOR) 10 mg tablet Taking Yes warfarin 2.5 mg tab 2.5 mg, warfarin 2 mg tab 2 mg Take 4 mg by mouth as directed. Take 2 mg on Saturday and Fridays. 4 mg on the other days Taking Yes loperamide (IMODIUM) 2 mg cap(s) TAKE 2 CAPSULES BY MOUTH BEFORE MEALS AND AT BEDTIME Taking Yes pantoprazole DR (PROTONIX) 40 mg tablet Take 1 tablet by mouth DAILY (6 AM). Taking Yes Medication Comments documented by [facility] on 01/11/2016 at 0856. Pt unsure of medication list. Pt did not bring pill bottles or medication list to appt 01/11/2016 CURRENT ALLERGIES: ALLERGIES Allergen Reactions - Penicillins Unknown - Ragweed Shortness of Breath REVIEW OF SYSTEMS: PAIN ASSESSMENT: General: No weight loss, malaise or fevers. Neuro: No history of TIA's, stroke, DEMAND MANAGER tumor, impaired sensorium, hemiplegia, paraplegia or quadraplegia. No neurological symptoms or problems. Respiratory: Wheezing when exposed to seasonal allergens Cardiovascular: See HPI GI: See HPI : No history of dysuria, frequency or incontinence,, stones or chronic kidney disease Endocrine: Diabetes Mellitus on oral agent Hematology: Bleeding / clotting disorders (Factor V Leiden), Chronic anti-coagulation / platelet meds (Coumadin) Oncology: See HPI Psych: No history of psychiatric symptoms or problems. Musculoskeletal: Negative for joint pain or swelling, back pain or muscle pain. Skin: Negative for lesions, rash and itching. Objective PHYSICAL EXAM: VITALS: BP 151/82[MD notified[ Pulse 73 Temp (Src) 97.1 (Temporal) Ht 5' 7 (1.70m) Wt 206 lb (93.4kg) SpO2 97% BMI 32.26 kg/(m2). General: Alert and oriented Skin: Normal color, no rash, no lesions. HEENT: EOM, pupils equal, round and reactive. Cardiovascular: Normal S1 AND S2, no rubs, murmurs or gallops. No JVD. Pulse regular. Lungs: Normal breath sounds, no wheezes or wall scraper (more content not included)... Normal [facility] PreOp/PreProc COVIDon 2020 SARS-CoV-2 (COVID-19) RNA KELLY+probe Ql (Unsp spec) UPPER RESPIRATORY TRACT SWAB Normal [facility] Comment on above: Performed By: #### P OCOVD ####[place] [address] [phone] SARS-CoV-2 (COVID-19) RNA KELLY+probe Ql (Unsp spec) Negative for COVID19 (SARS CoV2) by RT-PCR or equivalent method. Normal Negative for COVID19 (SARS CoV2) by RT-PCR or equivalent method. [facility] Comment on above: Result Comment: This test was developed and its performance characteristics determined by [facility]'s [facility]. This test has been authorized by FDA under an Emergency Use Authorization (EUA). This test has been validated in accordance with the FDA's Guidance Document Policy for Diagnostics Testing in Laboratories Certified to Perform High Complexity Testing under CLIA prior to Emergency use Authorization for Coronavirus Disease 2019 during the Public Health Emergency issued on April 11, 2019. Test performed by [facility], [facility], [address] [place], [place] [address]. Performed By: #### P OCOVD ####[place] [id number] [phone] Type and SCR (30D)on 021 ABO/RH(D) AB POSTIVE Normal [facility] Comment on above: Performed By: #### T SCR30 ####[facility] [place] [phone] Urinalysison 08-09-2020 Bilirubin, Urine Negative Normal Negative [facility] Comment on above: Performed By: #### U A ####[facility] [place] [phone] Clarity (U) Clear Normal Clear [facility] Comment on above: Performed By: #### U A ####[facility] [place] [phone] Color (U) Yellow Normal Yellow [facility] Comment on above: Performed By: #### U A ####[place] [address] [place] [phone] Comments SEE COMMENT Normal [facility] Comment on above: Result Comment: Micr oscopic Examination Performed Performed By: #### U A ####[facility] [place] [phone] Glucose Ql (U) Negative Normal Negative [facility] Comment on above: Performed By: #### U A ####[facility] [place] [phone] Hemoglobin/Blood,Ur 1+ Critically abnormal Negativ e [facility] Comment on above: Performed By: #### U A ####[facility]leveland[address] [phone] Ketones Ql (U) Negative Normal Negative [facility] Comment on above: Performed By: #### U A ####[facility]levelJoseph [place] [phone] Leukest Negative Normal Negative [facility] Comment on above: Performed By: #### U A ####[facility] [place], [place] [phone] Nitrite Ql (U) Negative Normal Negative [facility] Comment on above: Performed By: #### U A ####[place] [address], [place] [phone] pH (U) 6.0 [pH] Normal 5.0-8.0 [facility] Comment on above: Performed By: #### U A ####[place] [phone] Protein, Urine Negative Normal Negative [facility] Comment on above: Performed By: #### U A ####[place] [phone] RBC 0-3 Normal 0-3 [facility] Comment on above: Performed By: #### U A ####[place] [phone] Specific [place], Ur 1.017 Normal 1.005-1.030 [facility] Comment on above: Performed By: #### U A ####[place] [phone] Urine Bao Comment SEE COMMENT Normal [facility] Comment on above: Result Comment: N/A Performed By: #### U A ####[address] [phone] Urobilinogen Qn (U) {Ramona'U}/dL Critically abnormal Neg ative [facility] Comment on above: Performed By: #### U A ####[place] [phone] WBC 0-5 Normal 0-5 [facility] Comment on above: Performed By: #### U A ####[address] [phone] CNPNon 08-03-2020 CNPN Telephone ([facility]) SHAD RODRIGUEZ ([id number]) 1950 M Date Time Provider Department 08/03/20 LEDY JOHNS (RN) Anais During your visit today, we recorded the following information about you: Ledy Johns RN 08/03/2020 2:58 PM Signed Spoke with pt reminding of the pre-op and covid test on 08/09/20 and surgery on 08/12/20. Explained that the covid test is required even it fully vaccinated and to stop any blood thinners, NSAIDS, herbal supplements and vitamins 7-10 days prior to surgery. Pt verbalized understanding and all questions were addressed, Allergies As of Date: 08/03/2020 Noted Allergy Reaction PENICILLINS 06/22/2015 16 - Unknown RAGWEED 12/05/2015 12 - Shortness of Breath Date Reviewed: 06/28/2020 Reviewed by: Felicia Amaya MD - Fully Assessed Reason for Visit: Reminder Call [[id number]] Prescriptions as of 08/03/2020 Sig: AMLODIPINE 2.5 MG TABLET GLIPIZIDE ER 2.5 MG TABLET, E* Take 2.5 mg by mouth once phil* LISINOPRIL 2.5 MG TABLET Take 2.5 mg by mouth once phil* ATORVASTATIN 10 MG TABLET WARFARIN 4.5 MG ORAL DOSE Take 4 mg by mouth as directe* LOPERAMIDE 2 MG CAPSULE TAKE 2 CAPSULES BY MOUTH BEFO* PANTOPRAZOLE 40 MG TABLET,DEL* Take 1 tablet by mouth DAILY * Problem List As Of Date 08/03/2020 Noted Resolved History of DVT (deep vein thrombosis) [Z86.718] 06/27/2015 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 Essential hypertension [I10] 01/11/2016 Type 2 diabetes mellitus without complication, *01/11/2016 Chronic anticoagulation [Z79.01] 01/11/2016 CKD (chronic kidney disease) [N18.9] 01/11/2016 Factor V Leiden (HCC) [D68.51] 01/11/2016 Pulmonary embolus (HCC) [I26.99] 01/30/2016 Anticoagulation management encounter [Z51.81, Z*01/31/2016 Postoperative pain [G89.18] 02/03/2016 Postoperative ileus (HCC) [K91.89, K56.7] 02/03/2016 02/03/2016 Hypokalemia [E87.6] 02/03/2016 02/03/2016 Hypoalbuminemia [E88.09] 02/03/2016 Hyponatremia [E87.1] 02/03/2016 03/16/2016 Hypocalcemia [E83.51] 02/03/2016 02/03/2016 Hypoproteinemia (HCC) [E77.8] 02/03/2016 Dehydration [E86.0] 02/28/2016 02/28/2016 Acute kidney injury superimposed on CKD (HCC) [*02/28/2016 03/16/2016 Supratherapeutic INR [R79.1] 02/28/2016 02/28/2016 High output ileostomy (HCC) [R19.8, Z93.2] 02/28/2016 02/28/2016 Hypomagnesemia [E83.42] 02/28/2016 02/28/2016 ADAM (acute kidney injury) (HCC) [N17.9] 03/11/2016 History of pulmonary embolism [Z86.711] 03/11/2016 SUMMARY 03/11/2016 H/O: HTN (hypertension) [Z86.79] 07/11/2016 H/O diabetes mellitus [Z86.39] 07/11/2016 Stage 3 chronic kidney disease [N18.30] 07/11/2016 Attention to ileostomy (HCC) [Z43.2] 07/25/2016 07/25/2016 Chronic systolic heart failure (HCC) [I50.22] 10/10/2018 Coronary artery calcification [I25.10, I25.84] 01/02/2019 Encounter Status:Closed by LEDY JOHNS RN on 08/03/20 [facility] Lizabeth 07-13-2020 ISIDRAN Telephone ([facility]) SHAD RODRIGUEZ ([id number]) 1950 M Date Time Provider Department 07/13/20 LEDY JOHNS (RN) RAIZA During your visit today, we recorded the following information about you: Ledy Johns RN 07/13/2020 2:30 PM Signed Called and left a message on reminding pt about the pre-op and covid testing date on 07/20/20 and surgery on 07/21/20. Instructed pt to stop taking any NSAIDS, herbal supplement and multivitamin 7-10 days prior to surgery. Left my name and call back number. Allergies As of Date: 07/13/2020 Noted Allergy Reaction PENICILLINS 06/22/2015 16 - Unknown RAGWEED 12/05/2015 12 - Shortness of Breath Date Reviewed: 06/28/2020 Reviewed by: Felicia Amaya MD - Fully Assessed Reason for Visit: Reminder Call [[id number]] Prescriptions as of 07/13/2020 Sig: AMLODIPINE 2.5 MG TABLET GLIPIZIDE ER 2.5 MG TABLET, E* Take 2.5 mg by mouth once phil* LISINOPRIL 2.5 MG TABLET Take 2.5 mg by mouth once phil* ATORVASTATIN 10 MG TABLET WARFARIN 4.5 MG ORAL DOSE Take 4 mg by mouth as directe* LOPERAMIDE 2 MG CAPSULE TAKE 2 CAPSULES BY MOUTH BEFO* PANTOPRAZOLE 40 MG TABLET,DEL* Take 1 tablet by mouth DAILY * Problem List As Of Date 07/13/2020 Noted Resolved History of DVT (deep vein thrombosis) [Z86.718] 06/27/2015 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 Essential hypertension [I10] 01/11/2016 Type 2 diabetes mellitus without complication, *01/11/2016 Chronic anticoagulation [Z79.01] 01/11/2016 CKD (chronic kidney disease) [N18.9] 01/11/2016 Factor V Leiden (HCC) [D68.51] 01/11/2016 Pulmonary embolus (HCC) [I26.99] 01/30/2016 Anticoagulation management encounter [Z51.81, Z*01/31/2016 Postoperative pain [G89.18] 02/03/2016 Postoperative ileus (HCC) [K91.89, K56.7] 02/03/2016 02/03/2016 Hypokalemia [E87.6] 02/03/2016 02/03/2016 Hypoalbuminemia [E88.09] 02/03/2016 Hyponatremia [E87.1] 02/03/2016 03/16/2016 Hypocalcemia [E83.51] 02/03/2016 02/03/2016 Hypoproteinemia (HCC) [E77.8] 02/03/2016 Dehydration [E86.0] 02/28/2016 02/28/2016 Acute kidney injury superimposed on CKD (HCC) [*02/28/2016 03/16/2016 Supratherapeutic INR [R79.1] 02/28/2016 02/28/2016 High output ileostomy (HCC) [R19.8, Z93.2] 02/28/2016 02/28/2016 Hypomagnesemia [E83.42] 02/28/2016 02/28/2016 ADAM (acute kidney injury) (HCC) [N17.9] 03/11/2016 History of pulmonary embolism [Z86.711] 03/11/2016 SUMMARY 03/11/2016 H/O: HTN (hypertension) [Z86.79] 07/11/2016 H/O diabetes mellitus [Z86.39] 07/11/2016 Stage 3 chronic kidney disease [N18.30] 07/11/2016 Attention to ileostomy (HCC) [Z43.2] 07/25/2016 07/25/2016 Chronic systolic heart failure (HCC) [I50.22] 10/10/2018 Coronary artery calcification [I25.10, I25.84] 01/02/2019 Encounter Status:Closed by LEDY JOHNS RN on 07/13/20 [facility] Lizabeth 06-28-2020 MOSES Telephone ([employer]) SHAD RODRIGUEZ ([id number]) 1950 M Date Time Provider Department 06/28/20 YASIR ARIAS (RN) RAIZA During your visit today, we recorded the following information about you: Yasir Arias 06/28/2020 3:22 PM Signed Patient ID by Name and date: Pt offered 07/21/2020 and agrees with surgery date, patient request pre-ops 07/19/2020. Patient informed and aware of coronavirus risk - patient will still like to have surgery 07/21/2020. Patient aware Covid testing must be done 2-3 day prior to surgery and agrees with plan. I informed patient that I will inform surgery schedulers of request and they will mail out pre-op apt information, can also view via [employer], patient verbalized an understanding and agrees with plan. I encouraged patient to call with any questions or concerns in the interim. I also reviewed medications and instructed to stop NSAIDS, ASA, Multivitamins, Vitamin E and herbal supplements 7 to 10 days before surgery- please notify your surgeon's team that you have not stopped the above medications. Notify your surgeon if you have not stopped - Plavix or Coumadin prior to surgery. Also, notify doctor if you are advised not to stop aspirin by another physician. Patient verbalized an understanding and agrees with the plan I encouraged patient to call with any questions or concerns in the interim. 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 - Other [[id number]] Prescriptions as of 06/28/2020 Sig: AMLODIPINE 2.5 MG TABLET GLIPIZIDE ER 2.5 MG TABLET, E* Take 2.5 mg by mouth once phil* LISINOPRIL 2.5 MG TABLET Take 2.5 mg by mouth once phil* ATORVASTATIN 10 MG TABLET WARFARIN 4.5 MG ORAL DOSE Take 4 mg by mouth as directe* LOPERAMIDE 2 MG CAPSULE TAKE 2 CAPSULES BY MOUTH BEFO* PANTOPRAZOLE 40 MG TABLET,DEL* Take 1 tablet by mouth DAILY * Problem List As Of Date 06/28/2020 Noted Resolved History of DVT (deep vein thrombosis) [Z86.718] 06/27/2015 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 Essential hypertension [I10] 01/11/2016 Type 2 diabetes mellitus without complication, *01/11/2016 Chronic anticoagulation [Z79.01] 01/11/2016 CKD (chronic kidney disease) [N18.9] 01/11/2016 Factor V Leiden (HCC) [D68.51] 01/11/2016 Pulmonary embolus (HCC) [I26.99] 01/30/2016 Anticoagulation management encounter [Z51.81, Z*01/31/2016 Postoperative pain [G89.18] 02/03/2016 Postoperative ileus (HCC) [K91.89, K56.7] 02/03/2016 02/03/2016 Hypokalemia [E87.6] 02/03/2016 02/03/2016 Hypoalbuminemia [E88.09] 02/03/2016 Hyponatremia [E87.1] 02/03/2016 03/16/2016 Hypocalcemia [E83.51] 02/03/2016 02/03/2016 Hypoproteinemia (HCC) [E77.8] 02/03/2016 Dehydration [E86.0] 02/28/2016 02/28/2016 Acute kidney injury superimposed on CKD (HCC) [*02/28/2016 03/16/2016 Supratherapeutic INR [R79.1] 02/28/2016 02/28/2016 High output ileostomy (HCC) [R19.8, Z93.2] 02/28/2016 02/28/2016 Hypomagnesemia [E83.42] 02/28/2016 02/28/2016 ADAM (acute kidney injury) (HCC) [N17.9] 03/11/2016 History of pulmonary embolism [Z86.711] 03/11/2016 SUMMARY 03/11/2016 H/O: HTN (hypertension) [Z86.79] 07/11/2016 H/O diabetes mellitus [Z86.39] 07/11/2016 Stage 3 chronic kidney disease [N18.30] 07/11/2016 Attention to ileostomy (HCC) [Z43.2] 07/25/2016 07/25/2016 Chronic systolic heart failure (HCC) [I50.22] 10/10/2018 Coronary artery calcification [I25.10, I25.84] 01/02/2019 Encounter Status:Closed by YASIR ARIAS on 06/28/20 [facility] 06-28-2020 [facility] Patient:Courtney Rodriguez as A MRN: Height:5' 7 (1.702 m) Weight:206 lb (93.441 kg) Outpatient Medications as of 08/12/20: amLODIPine (NORVASC) 2.5 mg tablet glipiZIDE (GLUCOTROL XL) 2.5 mg 24 hr tablet lisinopril 2.5 mg tablet atorvastatin (LIPITOR) 10 mg tablet warfarin 2.5 mg tab 2.5 mg, warfarin 2 mg tab 2 mg loperamide (IMODIUM) 2 mg cap(s) pantoprazole DR (PROTONIX) 40 mg tablet Admission/Clinic Administered Medications as of 08/12/20: lidocaine (PF) 10 mg/mL (1 %) 1-2 mg injection (XYLOCAINE) lactated ringers iv infusion clindamycin iv piggyback 900 mg in D5W 50 mL (CLEOCIN) Problem List: History of DVT (deep vein thrombosis) [Z86.718] 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] Essential hypertension [I10] Type 2 diabetes mellitus without complication, without long-term current use of insulin (HCC) [E11.9] Chronic anticoagulation [Z79.01] CKD (chronic kidney disease) [N18.9] Factor V Leiden (HCC) [D68.51] Pulmonary embolus (HCC) [I26.99] Anticoagulation management encounter [Z51.81, Z79.01] Postoperative pain [G89.18] Hypoalbuminemia [E88.09] Hypoproteinemia (HCC) [E77.8] ADAM (acute kidney injury) (HCC) [N17.9] History of pulmonary embolism [Z86.711] SUMMARY [] H/O: HTN (hypertension) [Z86.79] H/O diabetes mellitus [Z86.39] Stage 3 chronic kidney disease (HCC) [N18.30] Chronic systolic heart failure (HCC) [I50.22] Coronary artery calcification [I25.10, I25.84] Ventral hernia [K43.9] Allergies: Penicillins Ragweed Date Verified: 08/12/20 Lab Values Lab Value Units Date High Low POTA* 4.4 mmol/L 08/09/2020 5.1 3.7 TERESA* 44.5 % 08/09/2020 51.0 39.0 Progress Notes ([facility]): Ledy Johns RN 08/09/2020 9:33 AM Signed AMBULATORY PATIENT EDUCATION NOTE PRE-OP TEACHING PROCEDURE: IMPLANT MESH/PROSTHESIS VENTRAL HERNIA REPAIR READINESS TO LEARN COGNITIVE ABILITY: Alert and oriented MOTIVATION TO LEARN: Eager Interested FAMILY SUPPORT: None - Unavailable/disinterested INSTRUCTION PROVIDED TO: Patient PATIENT LEARNS BEST BY: Multiple Methods FACTORS AFFECTING LEARNING: None PHYSICAL LIMITATIONS AFFECTING LEARNING: None LEARNING RESPONSE DIAGNOSIS: Incisional hernia without obstruction or gangrene METHOD OF INSTRUCTION: Individual instruction Written instruction - handouts Verbal instruction PATIENT / FAMILY RESPONSE: Verbalizes understanding of: EQUIPMENT USE-Correct use of Equipment INFECTION MANAGEMENT-Signs and symptoms of an infection and importance of contacting the physician MEDICAL REGIMEN-Importance of following prescribed medical regimen PAIN MANAGEMENT-Effective strategies to manage pain in addition to pain medication PHYSICAL RESTRICTIONS-Physical restrictions and recommendations after discharge from the hospital POST-OPERATIVE INSTRUCTIONS-Correct actions to take to reduce postoperative complications PATIENT SAFETY PRINCIPLES SYMPTOM MANAGEMENT-Correct actions to take to manage symptoms associated with his/her disease/illness VTE prevention measures WORSENING CONDITION-Signs and symptoms of a worsening condition that warrant a call to the physician FOLLOW-UP PLAN: Patient instructed to call with any further issues Contact information given. SUPPLEMENTAL MATERIAL: Your Surgical Guide REFERRAL (RECOMMENDATION): None Electronically Signed By: Ledy Johns RN In Department: GENERAL SURGERY Progress Notes ([facility]): Ledy Johns RN 08/03/2020 2:58 PM Signed Spoke with pt reminding of the pre-op and covid test on 08/09/20 and surgery on 08/12/20. Explained that the covid test is required even it fully vaccinated and to stop any blood thinners, NSAIDS, herbal supplements and vitamins 7-10 days prior to surgery. Pt verbalized understanding and all questions were addressed, Normal [facility] CNOVon 06-27-2020 CNSHAHEED Office Visit (RAIZA ) SHAD RODRIGUEZ ([id number]) 1950 M Date Time Provider Department 06/27/20 10:20 AM FELICIA AMAYA During your visit today, we recorded the following information about you: Temperature Pulse Respiration Blood pressure 96.9 degrees 70/minute 16/minute 117/70 Weight Height 93 kg 1.702 m Aidan Feliciano 06/27/2020 9:24 AM Signed What is the reason for your visit today? Follow up Who is your referring physician? self Are you having poor oral intake? NO Have you had unintentional weight loss of 15 lbs/7 Kg in the last 3-6 months? NO Bowels: regular Wound: clean AND dry Temperature: No Drains: No Ronn Givens MD 06/28/2020 2:57 PM Signed General Surgery Clinic Note Service Date: June 27, 2020 Interval History: 05/2018 - seen in hernia clinic with 2 moderate sized incisional hernias with large rectus separation. Plan for TAR at that time. Seen in [facility] and case cancelled for active dental infection and pending a stress test. 09/2018 - seen by cardiology with no evidence of ischemia on nuc stress test, mild dilated LV with mild asymptomatic LV dysfunction but without other HF symptoms. No concerns for surgery. Today 06/27/20 - re-presents with stable incisional hernia, would like to have it repaired because of appearance more than bowel dysfunction or pain. He [place] which may complicate his recovery. Has had a recent abrasion on his LLE that is poorly healing, he has had these previously and sees a wound clinic previously with success. Physical Exam: BP 117/70 Pulse 70 Temp (Src) 96.9 (Temporal Artery) Resp 16 Ht 5' 7 (1.70m) Wt 205 lb (93.0kg) BMI 32.10 kg/(m2). 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 Planned for TAR 05/2018 but cancelled for dental infection and pending stress test. In interval seen by cards without concern. Here today to revisit TAR. - Encouraged wound clinic for LLE abrasion - Consented today, will need preop at [facility] and cards clearance - Plan for TAR - Enrolled in fixation and washout trials Ronn Givens MD, PhD Resident, PGY-1 Felicia Amaya MD 06/28/2020 2:57 PM Signed Attending Note I evaluated the patient and personally participated in the rosen components. I agree with the resident's findings and plan as documented and have discussed the case and management of the patient's care with the resident. Signature: FELICIA AMAYA MD Mr Rodriguez is known to me as I have seen him in the past and was prepared to repair his hernia. Prior to surgery he had other medical conditions that delayed surgery but he returns today to discuss surgery. His hernia has enlarged and he will require an open ventral hernia repair with retromuscular mesh. I discussed the risks, benefits and alternatives with him and he signed consent in the office. Patient consented for study? Yes IRB NO.: #[id number] STUDY TITLE: Single Blinded Non-inferiority Registry Based Randomized Control Trial Comparing Transfascial Sutures for Mesh Fixation to No Mesh Fixation for Open Retromuscular Repairs SHOP LABORER: Sydney Hassan MD COORDINATOR/Research Nurse/Telecine Operator: Tiara Funes MD ? [email or web address] Consenting was performed by the attending surgeon, in a [id number] manner, during preoperative evaluation at the General Surgery clinic. The study protocol was discussed in detail with the patient. All study procedures were explained to the subject, including randomization, the two possible study interventions, and the postoperative pain management strategy for all patients participating in the study. Also, it was explained that pain scores and opioid use will be assessed daily during hospital stay. The importance of follow up compliance was stressed. The risks, benefits, alternatives to participation and potential costs were discussed. All patient questions were addressed and answered. Patient has read and understood the study procedures and requirements. Patient has agreed to proceed with trial participation and consent signed. Copy of the signed consent provided to the patient. INCLUSION CRITERIA Yes No 1. The patient is > 18 years of age [x] [] 2. The patient is fluent in Marshallese, has read the consent form and understood study procedures [x] [] 3. The patient is planned to undergo a ventral hernia r (more content not included)... Normal [facility] Progress Noteon 07-02-2019 Progress Note [address] [place] [address] Progress Note Signed:[id number] Name: [id number] MRUN: [id number] : 1950 Loc: 3S Age / Sex: 68/ M Adm Status: DIS Leonor Adm Date:06/03/19 Room/Bed: [facility] Date of Service 06/04/19 Subjective (ROS) Constitutional: Weakness Eyes: No Symptoms Reported ENT: No Symptoms Reported Respiratory: No Symptoms Reported Cardiovascular: No Symptoms Reported. denies: Chest Pain, Edema, Palpitations Endocrine: No Symptoms Reported Gastrointestinal: No Symptoms Reported Genitourinary: No Symptoms Reported Musculoskeletal: No Symptoms Reported Skin: Other - Wound management consult to evaluate and treat Neurological: No Symptoms Reported Psychiatric: No Symptoms Reported Hematological/Lymphatic: No Symptoms Reported Objective (Exam) Admission Weight/BMI Admission Weight 100.4 kg Body Mass Index (BMI) 34.7 Limitations: Present: No Limitations General Appearance: Present: Well Appearing Head Exam: Atraumatic Eye Exam: Present: Normal Appearance Pupils: Present: PERRL ENT exam: Present: Normal Exam Neck exam: Present: Normal Inspection Respiratory exam: Present: Normal Lung Sounds Bilaterally Cardiovascular exam: Present: Normal Heart Sounds GI/Abdominal Exam: Present: Normal Bowel Sounds Rectal exam: Present: Deferred exam: Present: Deferred Extremities exam: Present: Normal Capillary Refill Back exam: Present: Normal Inspection Back/chest exam: Present: Normal Inspection Neurological exam: Present: Alert, Oriented x 3 Psychiatric exam: Present: Normal Affect Integumentary exam: Present: Warm, Dry, Intact Allergies/Active Medications Allergies/Adverse Reactions: Allergies Allergy/AdvReac Type Severity Reaction Status Date / Time Penicillins Allergy Unknown Verified 06/03/19 17:06 Results Nursing notes reviewed: Yes Laboratory results reviewed: Yes Result Diagrams: 06/05/19 05:34 06/05/19 05:34 Laboratory WBC 5.8 10 3/uL (4.0-10.5) 06/05/19 05:34 RBC 4.58 x10 6/uL (4.38-5.71) 06/05/19 05:34 Hgb 13.2 g/dL (12.9-16.6) 06/05/19 05:34 Hct 39.2 % (38.7-49.8) 06/05/19 05:34 MCV 85.5 fL (78.0-100.0) 06/05/19 05:34 MCH 28.9 pg (27.0-31.0) 06/05/19 05:34 MCHC 33.8 g/dL (32.0-36.0) 06/05/19 05:34 RDW 14.4 % (11.5-14.0) H 06/05/19 05:34 Plt Count 180 10 3/uL (150-450) 06/05/19 05:34 MPV 7.9 fl (6.0-9.5) 06/05/19 05:34 Neut % (Auto) 78.1 % (36.0-66.0) H 06/05/19 05:34 Lymph % (Auto) 12.8 % (24.0-44.0) L 06/05/19 05:34 [place] % (Auto) 7.5 % (1.7-9.3) 06/05/19 05:34 Eos % (Auto) 1.3 % (0.0-5.0) 06/05/19 05:34 Baso % (Auto) 0.3 % (0.0-1.0) 06/05/19 05:34 Neut # (Auto) 4.5 10 3/uL (1.5-6.7) 06/05/19 05:34 Lymph # (Auto) 0.7 10 3/uL (1.0-3.5) L 06/05/19 05:34 [place] # (Auto) 0.4 10 3/uL (0.2-0.8) 06/05/19 05:34 Eos # (Auto) 0.1 10 3/uL (0.0-0.7) 06/05/19 05:34 Baso # (Auto) 0.0 10 3/uL (0.0-0.2) 06/05/19 05:34 Sodium 137 mmol/L (137-145) 06/05/19 05:34 Potassium 3.7 mmol/L (3.6-5.0) 06/05/19 05:34 Chloride 106 mmol/L (98-107) 06/05/19 05:34 Carbon Dioxide 27 mmol/L (22-31) 06/05/19 05:34 Anion Gap 8 mmol/L (9-18) L 06/05/19 05:34 BUN 15 mg/dL (7-21) 06/05/19 05:34 Creatinine 1.30 mg/dL (0.80-1.30) 06/05/19 05:34 Estimated Creat Clear 52.26 06/05/19 05:34 Estimated GFR mL/min 55.000 mL/min 06/05/19 05:34 Patient Age 68 Years 06/05/19 05:34 BUN/Creatinine Ratio 11.5 Ratio (5.0-42.0) 06/05/19 05:34 Glucose 108 mg/dL (70-99) H 06/05/19 05:34 POC Glucose 87 mg/dL (70-99) 06/05/19 16:15 Lactic Acid 2.1 mmol/L (0.7-2.4) 06/03/19 17:36 Lactic Acid Fup @ 4Hr 1.0 mmol/L (0.7-2.4) 06/03/19 21:58 Calcium 8.5 mg/dL (8.4-10.2) 06/05/19 05:34 Total Bilirubin 0.5 mg/dL (0.2-1.3) 06/05/19 05:34 AST 26 U/L (14-50) 06/05/19 05:34 ALT 48 U/L (7-56) 06/05/19 05:34 Alkaline Phosphatase 84 U/L (43-122) 06/05/19 05:34 Creatine Kinase 195 U/L (55-170) H 06/03/19 17:36 CK-MB (Mass) 4.0 ng/mL (0.0-3.7) H 06/04/19 09:55 Troponin I 0.06 ng/mL (0.0-0.03) H 06/04/19 05:28 Total Protein 5.7 g/dL (6.3-8.2) L 06/05/19 05:34 Albumin 3.1 g/dL (3.9-5.0) L 06/05/19 05:34 Globulin 2.6 g/dL 06/05/19 05:34 Albumin/Globulin Ratio 1.2 Ratio (1.1-1.8) 06/05/19 05:34 Lipase 19 U/L (23-300) L 06/03/19 17:36 Radiology results reviewed: Yes Assessment and Plan - Problem List (1) Syncope Plan: Syncope is of unknown etiology. Suspect due to hypoglycemia. Patient is a diabetic and did not eat for 6-1/2 hours prior to the event. Check orthostatics IV fluids Twelve-lead EKG done in the emergency room - sinus rhythm with PVC, right axis deviation, right ventricular hypertrophy. Rate of 97. QTC is [address] T changes suggestive of ischemia on 12 lead EKG Trend troponins every 6 hours ?2 2-D echocardiogram and carotid duplex requested Monitor on telemetry to evaluate for any cardiac dysrhythmias 06/04/2019 this has resolved. Patient is currently dynamically stable. Category: Medical Status: Acute (2) Diabetes mellitus Plan: Patient is a known diabetic. States that he is not on any insulins. Will resume home medications once the complete list is available For now we'll manage him on sliding scale for mealtime coverage 06/04/2019 Accu-Cheks currently continued, patient educated on proper diet and exercise. Category: Medical Status: Chronic 07/02/19 0908 CC: Fercho TORRES, Danii Pickett Normal [facility] CBC WITH AUTO DIFFon 020 Basophils (Bld) [#/Vol] 0.0 10 3/uL Normal 0.0-0.2 [facility] Comment on above: Performed By: #### P T #### [facility] - [address] [address] Basophils/100 WBC (Bld) 0.3 % Normal 0.0-1.0 [facility] Comment on above: Performed By: #### P T #### [facility] - [address] [address] Eosinophils (Bld) [#/Vol] 0.1 10 3/uL Normal 0.0-0.7 [facility] Comment on above: Performed By: #### P T #### [facility] - [address] [address] Eosinophils/100 WBC (Bld) 1.3 % Normal 0.0-5.0 [facility] Comment on above: Performed By: #### P T #### [facility] - [address] [address] Erythrocyte distribution wid th (RBC) [Ratio] 14.4 % High 11.5-14.0 [facility] Comment on above: Performed By: #### P T #### [facility] - [address] [address] Hematocrit (Bld) [Volume fraction] 39.2 % Normal 38.7-49.8 [facility] Comment on above: Performed By: #### P T #### [address] [address] Hemoglobin (Bld) [Mass/Vol] 13.2 g/dL Normal 12.9-16. 6 [facility] Comment on above: Performed By: #### P T #### [address] [address] Lymphocytes (Bld) [#/Vol] 0.7 10 3/uL Low 1.0-3.5 [facility] Comment on above: Performed By: #### P T #### [address] [address] Lymphocytes/100 WBC (Bld) 12.8 % Low 24.0-44.0 [facility] Comment on above: Performed By: #### P T #### [facility] [address] [place] [phone] MCH (RBC) [Entitic mass] 28.9 pg Normal 27.0-31.0 [facility] Comment on above: Performed By: #### P T #### [facility] - [address] [address] MCHC (RBC) [Mass/Vol] 33.8 g/dL Normal 32.0-36.0 [facility] Comment on above: Performed By: #### P T #### [facility] - [address] [address] MCV (RBC) [Entitic vol] 85.5 fL Normal 78.0-100.0 [facility] Comment on above: Performed By: #### P T #### [facility] - [address] [address] Monocytes (Bld) [#/Vol] 0.4 10 3/uL Normal 0.2-0.8 [facility] Comment on above: Performed By: #### P T #### [facility] - [address] [address] Monocytes/100 WBC (Bld) 7.5 % Normal 1.7-9.3 [facility] Comment on above: Performed By: #### P T #### [facility] - [address] [address] Neutrophils (Bld) [#/Vol] 4.5 10 3/uL Normal 1.5-6.7 [facility] Early Comment on above: Performed By: #### P T #### [facility] - [address] [address] Neutrophils/100 WBC (Bld) 78.1 % High 36.0-66.0 [facility] Comment on above: Performed By: #### P T #### [facility] - [address] [address] Platelet mean volume (Bld) [Entitic vol] 7.9 fL Normal 6.0-9.5 [facility] Comment on above: Performed By: #### P T #### [facility] - [facility] [address] [place] [address] Platelets (Bld) [#/Vol] 180 10 3/uL Normal 150-450 [facility] Comment on above: Performed By: #### P T #### Main Lab - [address] [address] RBC (Bld) [#/Vol] 4.58 x10 6/uL Normal 4.38-5.71 [facility] Comment on above: Performed By: #### P T #### Main Lab - [address] [address] WBC (Bld) [#/Vol] 5.8 10 3/uL Normal 4.0-10.5 [facility] Comment on above: Performed By: #### P T #### Main Lab - [address] [address] COMPREHENSIVE METABOLIC PANE Sukhi 06-05-2019 Albumin [Mass/Vol] 3.1 g/dL Low 3.9-5.0 [facility] Comment on above: Performed By: #### P T #### [facility] - [address] [address] Albumin/Globulin [Mass ratio] 1.2 {ratio} Normal 1.1-1 .8 [facility] Comment on above: Performed By: #### P T #### [facility] - [address] [address] ALP [Catalytic activity/Vol] 84 U/L Normal 43-122 [facility] Comment on above: Performed By: #### P T #### Main Lab - [address] [address] ALT/SGPT 48 U/L Normal 7-56 [facility] Comment on above: Performed By: #### P T #### Main Lab - [address] [address] Anion gap [Moles/Vol] 8 mmol/L Low 9-18 [facility] Comment on above: Performed By: #### P T #### Main Lab - [address] [address] AST/SGOT 26 U/L Normal 14-50 [facility] Comment on above: Performed By: #### P T #### [facility] - [address] [address] Bilirubin [Mass/Vol] 0.5 mg/dL Normal 0.2-1.3 [facility] Comment on above: Performed By: #### P T #### [facility] - [address] [address] Calcium [Mass/Vol] 8.5 mg/dL Normal 8.4-10.2 [facility] Comment on above: Performed By: #### P T #### [facility] - [address] [address] Chloride [Moles/Vol] 106 mmol/L Normal 98-107 [facility] Comment on above: Performed By: #### P T #### [facility] - [address] [address] CO2 [Moles/Vol] 27 mmol/L Normal 22-31 [facility] Comment on above: Performed By: #### P T #### [facility] - [address] [address] Creatinine [Mass/Vol] 1.30 mg/dL Normal 0.80-1.30 [facility] Comment on above: Performed By: #### P T #### [facility] - [address] [address] ESTIMATED CREAT CLEARANCE 52.26 [facility] Comment on above: Result Comment: COCK CROFT-GAULT FORMULA 1972 Performed By: #### P T #### [facility] - [address] [address] ESTIMATED GLOMERULAR FILT RATE 55.000 mL/min [facility] Comment on above: Performed By: #### P T #### [facility] - [address] [address] Globulin (S) [Mass/Vol] 2.6 g/dL Normal [facility] Comment on above: Performed By: #### P T #### [facility] - [address], [place] [address] Glucose [Mass/Vol] 108 mg/dL High 70-99 [facility] Comment on above: Result Comment: The glucose range is based on recommendations from the [place] [employer] for fasting blood glucose range. Performed By: #### P T #### Main Lab - [facility] [address] [place] [address] Potassium [Moles/Vol] 3.7 mmol/L Normal 3.6-5.0 [facility] Comment on above: Performed By: #### P T #### [facility] - [facility] [address] [place] [address] Protein [Mass/Vol] 5.7 g/dL Low 6.3-8.2 [facility] Comment on above: Performed By: #### P T #### Main Lab - [address] [address] Sodium [Moles/Vol] 137 mmol/L Normal 137-145 [facility] Comment on above: Performed By: #### P T #### Main Lab - [address] [address] Urea nitrogen [Mass/Vol] 15 mg/dL Normal 7-21 [facility] Comment on above: Performed By: #### P T #### Main Lab - [address] [address] Urea nitrogen/Creatinine [Ma ss ratio] 11.5 Ratio Normal 5.0-42.0 [facility] Comment on above: Performed By: #### P T #### [facility] - [facility] [address] [place] [address] Age - Reported 68 Years Normal [facility] Comment on above: Performed By: #### P T #### [facility] - [facility] [address] [place] [address] PT WITH INRon 06-05-2019 INR Coag (PPP) [Relative time] 3.1 {INR} Normal [facility] Comment on above: Result Comment: ISAAK MMENDED RANGES FOR INR: Therapeutic range for standard therapy INR: 2.0-3.0 Therapeutic range for high dose therapy INR: 2.5-3.5 Performed By: #### P T #### Main Lab - [facility] [address] [place], [place] [address] PT Coag (PPP) [Time] 32.2 s High 12.0-14.5 [facility] Comment on above: Performed By: #### P T #### [address] [address] URINE CULTUREon 06-05-2019 Bacteria identified Cx Nom (U) @06/03/19 1933: URINE CULT added. RFLXG = URINE CULT. @Source changed from IRICEL INS to CC by . URINE CULTURE: NO GROWTH AT 48 HOURS Normal [facility] Comment on above: Performed By: #### P T #### [address] [address] CBC WITH AUTO DIFFon 020 Basophils (Bld) [#/Vol] 0.0 10 3/uL Normal 0.0-0.2 [facility] Comment on above: Performed By: #### P T, CMP, CBC #### [address] [address] Basophils/100 WBC (Bld) 0.2 % Normal 0.0-1.0 [facility] Comment on above: Performed By: #### P T, CMP, CBC #### [address] [address] Eosinophils (Bld) [#/Vol] 0.0 10 3/uL Normal 0.0-0.7 [facility] Comment on above: Performed By: #### P T, CMP, CBC #### [facility] - [address] [address] Eosinophils/100 WBC (Bld) 0.3 % Normal 0.0-5.0 [facility] Comment on above: Performed By: #### P T, CMP, CBC #### [address] [address] Erythrocyte distribution wid th (RBC) [Ratio] 14.4 % High 11.5-14.0 [facility] Comment on above: Performed By: #### P T, CMP, CBC #### Main Lab - [facility] [address] [place] [address] Hematocrit (Bld) [Volume fraction] 40.5 % Normal 38.7-49.8 [facility] Comment on above: Performed By: #### P T, CMP, CBC #### Main Lab - [facility] [address] [place] [address] Hemoglobin (Bld) [Mass/Vol] 13.9 g/dL Normal 12.9-16. 6 [facility] Comment on above: Performed By: #### P T, CMP, CBC #### Main [facility] - [facility] [address] [place] [address] Lymphocytes (Bld) [#/Vol] 0.6 10 3/uL Low 1.0-3.5 [facility] Comment on above: Performed By: #### P T, CMP, CBC #### Main [facility] - [facility] [address] [place] [address] Lymphocytes/100 WBC (Bld) 8.3 % Low 24.0-44.0 [facility] Comment on above: Performed By: #### P T, CMP, CBC #### [facility] [address] [place] [address] MCH (RBC) [Entitic mass] 29.2 pg Normal 27.0-31.0 [facility] Comment on above: Performed By: #### P T, CMP, CBC #### [facility] - [facility] [address] [place] [address] MCHC (RBC) [Mass/Vol] 34.2 g/dL Normal 32.0-36.0 [facility] Comment on above: Performed By: #### P T, CMP, CBC #### Main [facility] - [facility] [address] [place] [address] MCV (RBC) [Entitic vol] 85.2 fL Normal 78.0-100.0 [facility] Comment on above: Performed By: #### P T, CMP, CBC #### Main [facility] - [facility] [address] [place] [address] Monocytes (Bld) [#/Vol] 0.4 10 3/uL Normal 0.2-0.8 [facility] Comment on above: Performed By: #### P T, CMP, CBC #### Main Lab - [facility] [address], [place] [address] Monocytes/100 WBC (Bld) 5.4 % Normal 1.7-9.3 [facility] Comment on above: Performed By: #### P T, CMP, CBC #### [facility] - [facility] [address] [place] [address] Neutrophils (Bld) [#/Vol] 5.8 10 3/uL Normal 1.5-6.7 [facility] Comment on above: Performed By: #### P T, CMP, CBC #### [facility] - [facility] [address] [place] [address] Neutrophils/100 WBC (Bld) 85.8 % High 36.0-66.0 [facility] Comment on above: Performed By: #### P T, CMP, CBC #### [facility] - [facility] [address] [place] [address] Platelet mean volume (Bld) [Entitic vol] 8.1 fL Normal 6.0-9.5 [facility] Comment on above: Performed By: #### P T, CMP, CBC #### Main [facility] - [facility] [address] [place] [address] Platelets (Bld) [#/Vol] 190 10 3/uL Normal 150-450 [facility] Comment on above: Performed By: #### P T, CMP, CBC #### Main [facility] - [facility] [address] [place] [address] RBC (Bld) [#/Vol] 4.75 x10 6/uL Normal 4.38-5.71 [facility] Comment on above: Performed By: #### P T, CMP, CBC #### Main [facility] - [facility] [address] [place] [address] WBC (Bld) [#/Vol] 6.7 10 3/uL Normal 4.0-10.5 [facility] Comment on above: Performed By: #### P T, CMP, CBC #### [facility] - [facility] [address] [place] [address] COMPREHENSIVE METABOLIC PANE Sukhi 06-04-2019 Albumin [Mass/Vol] 3.4 g/dL Low 3.9-5.0 [facility] Comment on above: Performed By: #### P T, CMP, CBC #### [facility] - [facility] [address] [place] [address] Albumin/Globulin [Mass ratio] 1.2 {ratio} Normal 1.1-1 .8 [facility] Comment on above: Performed By: #### P T, CMP, CBC #### [facility] - [facility] [address] [place] [address] ALP [Catalytic activity/Vol] 92 U/L Normal 43-122 [facility] Comment on above: Performed By: #### P T, CMP, CBC #### Main [facility] - [facility] [address] [place] [address] ALT/SGPT 62 U/L High 7-56 [facility] Comment on above: Performed By: #### P T, CMP, CBC #### Main [facility] - [facility] [address] [place] [address] Anion gap [Moles/Vol] 8 mmol/L Low 9-18 [facility] Comment on above: Performed By: #### P T, CMP, CBC #### Main [facility] - [facility] [address] [place] [address] AST/SGOT 36 U/L Normal 14-50 [facility] Comment on above: Result Comment: Spec imen Slightly Hemolyzed. Performed By: #### P T, CMP, CBC #### Main [facility] - [facility] [address] [place] [address] Bilirubin [Mass/Vol] 0.5 mg/dL Normal 0.2-1.3 [facility] Comment on above: Performed By: #### P T, CMP, CBC #### [facility] - [facility] [address] [place] [address] Calcium [Mass/Vol] 8.9 mg/dL Normal 8.4-10.2 [facility] Comment on above: Performed By: #### P T, CMP, CBC #### [facility] - [facility] [address] [place] [address] Chloride [Moles/Vol] 109 mmol/L High 98-107 [facility] Comment on above: Result Comment: Inco nsistent with previous results. Performed By: #### P T, CMP, CBC #### Main [facility] - [facility] [address], [place] [address] CO2 [Moles/Vol] 27 mmol/L Normal 22-31 [facility] Comment on above: Performed By: #### P T, CMP, CBC #### Main [facility] - [facility] [address], [place] [address] Creatinine [Mass/Vol] 1.28 mg/dL Normal 0.80-1.30 [facility] Comment on above: Performed By: #### P T, CMP, CBC #### Main [facility] - [facility] [address], [place] [address] ESTIMATED CREAT CLEARANCE 53.08 Normal [facility] Comment on above: Result Comment: COCK CROFT-GAULT FORMULA 1972 Performed By: #### P T, CMP, CBC #### Main [facility] - [facility] [address] [place] [address] ESTIMATED GLOMERULAR FILT RATE 56.000 mL/min Normal [facility] Comment on above: Performed By: #### P T, CMP, CBC #### Main [facility] - [facility] [address], [place] [address] Globulin (S) [Mass/Vol] 2.9 g/dL Normal [facility] Comment on above: Performed By: #### P T, CMP, CBC #### [facility] - [facility] [address], [place] [address] Glucose [Mass/Vol] 165 mg/dL High 70-99 [facility] Comment on above: Result Comment: The glucose range is based on recommendations from the [place] [employer] for fasting blood glucose range. Performed By: #### P T, CMP, CBC #### Main [facility] - [facility] [address], [place] [address] Potassium [Moles/Vol] 3.7 mmol/L Normal 3.6-5.0 [facility] Comment on above: Result Comment: Spec imen Slightly Hemolyzed. Performed By: #### P T, CMP, CBC #### [facility] - [facility] [address], [place] [address] Protein [Mass/Vol] 6.3 g/dL Normal 6.3-8.2 [facility] Comment on above: Performed By: #### P T, CMP, CBC #### [facility] - [facility] [address], [place] [address] Sodium [Moles/Vol] 140 mmol/L Normal 137-145 [facility] Comment on above: Performed By: #### P T, CMP, CBC #### [facility] [address] [place] [address] Urea nitrogen [Mass/Vol] 17 mg/dL Normal 7-21 [facility] Comment on above: Performed By: #### P T, CMP, CBC #### [facility] - [facility] [address] [place] [address] Urea nitrogen/Creatinine [Ma ss ratio] 13.3 Ratio Normal 5.0-42.0 [facility] Comment on above: Performed By: #### P T, CMP, CBC #### [facility] - [facility] [address] [place] [address] Age - Reported 68 Years Normal [facility] Comment on above: Performed By: #### P T, CMP, CBC #### [facility] - [facility] [address] [place] [address] CREATINE KINASE MBon 020 CK.MB [Mass/Vol] 4.0 ng/mL High 0.0-3.7 [facility] Comment on above: Performed By: #### C KMB 1 #### Main [facility] - [facility] [address] [place] [address] CK.MB [Mass/Vol] 3.8 ng/mL High 0.0-3.7 [facility] Comment on above: Performed By: #### C KMB 1 #### Main [facility] - [facility] [address], [place] [address] CK.MB [Mass/Vol] 4.4 ng/mL High 0.0-3.7 [facility] Comment on above: Performed By: #### P T #### Main [facility] - [facility] [address] [place] [address] ABDOMEN PELVIS W/Oon 05-13 CT ABDOMEN PELVIS W/O [facility] [address] [place] [address] Diagnostic Imaging Report : [id number] Signed Name: SHAD RODRIGUEZ MRUN: [id number] : 1950 Loc: 3S Age / Sex: 68 / M ADM Status: ADM Leonor ADM Date: 06/03/19 Room/Bed: [facility] Ordering Physician: Vick ENCISO Usrees Procedure: CT ABDOMEN PELVIS W/O Order Number(s): [id number] Ordered Date: 06/04/19 Ordered Time: 5 EXAMINATION: CT OF THE ABDOMEN AND PELVIS WITHOUT CONTRAST 06/04/2019 2:06 am TECHNIQUE: CT of the abdomen and pelvis was performed without the administration of intravenous contrast. Multiplanar reformatted images are provided for review. Dose modulation, iterative reconstruction, and/or weight based adjustment of the mA/kV was utilized to reduce the radiation dose to as low as reasonably achievable. COMPARISON: Chest CT yesterday HISTORY: abdominal pain Initial evaluation FINDINGS: Lower Chest: Visualized portion of the lower chest demonstrates no acute abnormality. Organs: The liver, spleen, pancreas, gallbladder, adrenal glands, and kidneys demonstrate no acute abnormality. GI/Bowel: Colorectal anastomosis. Mild sigmoid diverticulosis. No acute bowel inflammation. Normal appendix. Pelvis: No pelvic mass, adenopathy, or fluid collection. Peritoneum/Retroperitoneum: Midline fat containing ventral hernia with 6.5 cm abdominal wall defect. An additional periumbilical fat containing hernia measures 4 cm. No abdominal aortic aneurysm. No adenopathy. No ascites. No free intraperitoneal air. Bones/Soft Tissues: No acute osseous abnormality. IMPRESSION: No acute abnormality in the abdomen or pelvis. Fat containing midline ventral hernias. Dictated By: Rio Rojas MD Dictated Date/Time: 06/04/19215 Signed By: Rio Rojas MD Signed Date/Time: 06/04/19225 Transcribed Date/Time: 06/04/19221 Normal [facility] DRUG SCREEN,URINEon 06-04-19 AMPHETAMINE SCREEN,URINE Negative Normal NEGATIVE [facility] Comment on above: Order Comment: @ COL L DATE was changed from 06/03/19 to 06/04/19 @ by [id number]. Old specimen was [id number]. Result Comment: Nega tive cut-off concentration <1000 ng/mL Performed By: #### U DS #### Main [facility] - [facility] [address] [id number] BARBITURATE SCREEN, URINE Negative Normal NEGATIVE [facility] Comment on above: Order Comment: @ COL L DATE was changed from 06/03/19 to 06/04/19 @ by [id number]. Old specimen was [id number]. Result Comment: Nega tive cut-off concentration <200 ng/mL Performed By: #### U DS #### [facility] - [facility] [address] [place], [place] [id number] BENZODIAZEPINES SCREEN,URINE Negative Normal NEGATIV E [facility] Comment on above: Order Comment: @ COL L DATE was changed from 06/03/19 to 06/04/19 @ by [id number]. Old specimen was [id number]. Result Comment: Nega tive cut-off concentration <200 ng/mL Performed By: #### U DS #### Main [facility] [address] [place], [place] [id number] BUPRENORPHINE SCREEN,URINE Negative Normal NEGATIVE [facility] Comment on above: Order Comment: @ COL L DATE was changed from 06/03/19 to 06/04/19 @ by [id number]. Old specimen was [id number]. Result Comment: Nega tive cut-off concentration <10 ng/mL Performed By: #### U DS #### [facility] [address] [place] [address] CANNABINOID SCREEN,URINE Negative Normal NEGATIVE [facility] Comment on above: Order Comment: @ COL L DATE was changed from 06/03/19 to 06/04/19 @ by [id number]. Old specimen was [id number]. Result Comment: Nega tive cut-off concentration <50 ng/mL Performed By: #### U DS #### [facility] [address] [place], [place] [id number] COCAINE SCREEN,URINE Negative Normal NEGATIVE [facility] Comment on above: Order Comment: @ COL L DATE was changed from 06/03/19 to 06/04/19 @ by [id number]. Old specimen was [id number]. Result Comment: Nega tive cut-off concentration <300 ng/mL Performed By: #### U DS #### [facility] [address] [id number] METHADONE SCREEN,URINE Negative Normal NEGATIVE [facility] Comment on above: Order Comment: @ COL L DATE was changed from 06/03/19 to 06/04/19 @ by [id number]. Old specimen was [id number]. Result Comment: Nega tive cut-off concentration <300 ng/mL Performed By: #### U DS #### [facility] [address] [place], [place] [id number] OPIATE SCREEN,URINE Negative Normal NEGATIVE [facility] Comment on above: Order Comment: @ COL L DATE was changed from 06/03/19 to 06/04/19 @ by [id number]. Old specimen was [id number]. Result Comment: Nega tive cut-off concentration <300 ng/mL Performed By: #### U DS #### [facility] [address] [place], [place] [id number] OXYCODONE SCREEN,URINE Negative Normal NEGATIVE [facility] Comment on above: Order Comment: @ COL L DATE was changed from 06/03/19 to 06/04/19 @ by [id number]. Old specimen was [id number]. Result Comment: Nega tive cut-off concentration <300 ng/mL Performed By: #### U DS #### [facility] [address] [place], [place] [id number] PHENCYCLIDINE SCREEN,URINE Negative Normal NEGATIVE [facility] Comment on above: Order Comment: @ COL L DATE was changed from 06/03/19 to 06/04/19 @ by [id number]. Old specimen was [id number]. Result Comment: Nega tive cut-off concentration <25 ng/mL Performed By: #### U DS #### [facility] [address] [place] [address] NITRITE,URINE Negative Normal NEGATIVE [facility] Comment on above: Order Comment: @ COL L DATE was changed from 06/03/19 to 06/04/19 @ by [id number]. Old specimen was [id number]. Performed By: #### U DS #### [facility] - [facility] [address] [place] [address] pH (U) 6.0 [pH] Normal 5.0-8.0 [facility] Comment on above: Order Comment: @ COL L DATE was changed from 06/03/19 to 06/04/19 @ by [id number]. Old specimen was [id number]. Performed By: #### U DS #### [facility] - [facility] [address] [place] [address] SPECIFIC GRAVITY,URINE 1.027 SP.GR. Normal <1.029 [facility] Comment on above: Order Comment: @ COL L DATE was changed from 06/03/19 to 06/04/19 @ by [id number]. Old specimen was [id number]. Performed By: #### U DS #### [facility] - [facility] [address] [place] [address] ECHOCARDIOGRAM COMPLETEon ECHOCARDIOGRAM COMPLETE [facility] [address] [place], [place] [id number] Cardiovascular Imaging Report : [id number] Signed Name: SHAD RODRIGUEZ MRUN: [id number] : 1950 Loc: 3S Age / Sex: 68 / M ADM Status: ADM Leonor ADM Date: 06/03/19 Room/Bed: [facility] Ordering Physician[facility] Procedure: ECHOCARDIOGRAM COMPLETE Order Number(s): [id number] Ordered Date: 06/04/19 Ordered Time: 0700 SEOSYNCVPROD [id number] Transthoracic Echo Report Ht (in): 67 Wt (lb): 221 BSA: 2.2 Technologist: Ingris Messer RD Nurse: Gracie Goldberg, Stay Type: I Indications: syncope Procedure: A complete transthoracic echocardiogram with bubble study.. Contrast agent was utilized to enhance the delineation of the left ventricular endocardial border for improved diagnostic evaluation. BP: 128 / 70 HR: 72 Contrast: Definity Rhythm: Sinus. Technical Quality: Fair Total Dose (mL): 5 CONCLUSIONS Grade I/IV diastolic dysfunction (abnormal relaxation filling pattern), normal to mildly elevated filling pressures. Global left ventricular hypokinesis. Left ventricular ejection fraction is estimated at 35 %. Moderately decreased left ventricular ejection fraction. Mildly increased left atrial area. Trace mitral valve regurgitation. Trace tricuspid valve regurgitation. Trace pulmonary valve regurgitation. Bubble study WNL. FINDINGS Left Ventricle Grade I/IV diastolic dysfunction (abnormal relaxation filling pattern), normal to mildly elevated filling pressures. Global left ventricular hypokinesis. Left ventricular ejection fraction is estimated at 35 %. Normal left ventricular wall thickness. Mildly increased left ventricular diastolic volume. Severely increased left ventricular systolic volume. Moderately decreased left ventricular ejection fraction. Right Ventricle Normal right ventricular size and systolic function.normal right ventricular systolic pressure. Right Atrium The right atrium is normal in size. Left Atrium Mildly increased left atrial size. Mildly increased left atrial volume. Mildly increased left atrial area. Mitral Valve Structurally normal mitral valve. No mitral valve stenosis. Trace mitral valve regurgitation. Aortic Valve Structurally normal aortic valve without significant sclerosis or stenosis. There is no aortic regurgitation. Tricuspid Valve Structurally normal tricuspid valve. No tricuspid valve stenosis. Trace tricuspid valve regurgitation. Pulmonic Valve Structurally normal pulmonic valve. No pulmonary valve stenosis. Trace pulmonary valve regurgitation. Pericardium Normal pericardium without effusion. IVC Inferior vena cava not dilated. Normal respiratory response. Aorta Normal ascending aorta dimension. Additional Findings Bubble study WNL. MEASUREMENTS (Male / Female) Normal Values 2D ECHO Body Surface Area 2.2 m? LV Diastolic Diameter PLAX 5.8 cm 4.2 - 5.9 / 3.9 - 5.3 cm LV Systolic Diameter PLAX 4.9 cm IVS Diastolic Thickness 0.8 cm 0.6 - 1.0 / 0.6 - 0.9 cm LVPW Diastolic Thickness 0.8 cm 0.6 - 1.0 / 0.6 - 0.9 cm LV Ejection Fraction 2D Teich 33.8 % LV Diastolic Volume MOD BP 171.4 ml 67 - 155 / 56 - 104 ml LV Systolic Volume MOD BP 107.1 ml 22 - 58 / 19 - 49 ml LV Ejection Fraction MOD BP 37.5 % >= 55 % LV Stroke Volume MOD BP 64.3 ml LA Area 4C View 18.4 cm? <= 20 cm? LA Area 2C View 22.2 cm? <= 20 cm? LA Volume Index 32.1 ml/m? 16 - 28 ml/m? LA Systolic Volume MOD 2C 80.6 ml LA Systolic Volume MOD 4C 52.7 ml Right Atrial Area 19.6 cm? RV Base 4.4 cm RV Mid 3.7 cm RV Kohler to Base 8.6 cm Ascending Aorta Diameter 3.2 cm M-MODE Aortic Root Diameter MM 3.6 cm LA Systolic Diameter MM 4.2 cm LA Ao Ratio MM 1.2 DOPPLER AV Peak Velocity 1.3 m/s AV Peak Gradient 6.6 mmHg LVOT Peak Velocity 0.8 m/s LVOT Peak Gradient 2.5 mmHg LVOT Mean Gradient 1.3 mmHg LVOT Velocity Time Integral 16.7 cm MV Deceleration Kaufman 1.3 m/s? MV Pressure Half Time 83.2 ms MV Area PHT 2.6 cm? E/e' Ratio 11.2 Mitral E Point Velocity 37.3 cm/s Mitral A Point Velocity 57.8 cm/s Mitral E to A Ratio 0.6 MV Deceleration Time 286.7 ms TAPSE 2.0 cm PV Peak Velocity 1.1 m/s PV Peak Gradient 5.0 mmHg PI Peak Velocity 0.9 m/s PI Peak Gradient 3.4 mmHg RVOT Peak Velocity 0.6 m/s RVOT Peak Gradient 1.7 mmHg RVOT Mean Velocity 0.4 m/s RVOT Mean Gradient 0.9 mmHg RVOT Velocity Time Integral 12.7 cm Sakina Pack MD (Electronically Signed) Final Date: 04 June 2019 11:31 Dictated By: Sakina Pack MD Dictated Date/Time: 06/04/19946 Signed By: Sakina Pack MD, MD Signed Date/Time: 06/04/19 1132 Transcribed Date/Time: 06/04/19 09 Normal [facility] History & Physicalon 020 History & Physical [facility] [place] [address] History Physical Signed with Addenda:[id number] Name: SHAD RODRIGUEZ MRUN: [id number] : 1950 Loc: 3S Age / Sex: 68/ M Adm Status: ADM Leonor Adm Date:06/03/19 Room/Bed: 317-01 ADDENDUM Bilateral lower extremities have chronic venous stasis changes and trace edema, small open wound on right leg. 06/04/19 0048 CC: Vick ENCISO, Usreesha Date of Service 06/03/19 History of Present Illness Information source:: Patient Chief Complaint: I passed out This is a pleasant 68-year-old male with a history of diabetes mellitus and colon cancer was brought into the emergency room by the banana loader for further evaluation and management of a syncopal event. Patient was in his usual state of health until this afternoon. 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 He was taking the exit to get to the Highway around 4:30 PM after exchanging the trailer with his colleague. He felt like his truck is spinning around. The next thing he knew was banana loader were knocking on the door. He was found slumped over on the steering wheel. He did not experience any chest pain, palpitations, focal weakness, vision changes or diaphoresis prior to the episode. No prior similar symptoms. No reports of seizure-like activity. No reports of bladder or bowel incontinence. No history of WA, CVA or seizures. He had his breakfast around 10:30 AM. He did not get to eat lunch yet by the time of the event. Patient feels much better since hospital admission. He still feels some uneasiness in his head and nausea. His been experiencing abdominal discomfort since the episode. He thinks the seatbelt exerted a lot of pressure on his ventral hernia. Patient is a full code. Review of Systems All systems reviewed and noted to be negative other than the above mentioned in HPI Past Medical History - Available ancillary/Nurse notes reviewed History reviewed and agreed with:: Yes - I'll Past EENT history: Negative Past EENT surgeries/treatments: Negative Past neurological history: Negative Past cardiovascular history: Hypertension Past respiratory history: Asthma, Pulmonary Embolism Past gastrointestinal history: Cancer, GERD Type of GI cancer:: Colorectal Past gastrointestinal surgeries/treatments: Colon Resection Additional surgical history details: colostomy reversal Past genitourinary history: Renal Disease Past Genitourinary surgeries/treatments: Negative Past musculoskeletal history: Arthritis Past endocrine history: Diabetes General Reproductive History: Negative Past male reproductive surgeries/treatments:: Negative Psychiatric: Negative - Family History Family History Narrative: Hypertension - Social History Smoking status: Never Smoker Current tobacco user or use within the last year?: No Alcohol use- current or past use: No Substance abuse - current or past: No Allergies and Home Medications Allergies Allergy/AdvReac Type Severity Reaction Status Date / Time Penicillins Allergy Unknown Verified 06/03/19 17:06 Home Medications Medication Instructions Recorded Confirmed Last Taken Warfarin Sodium [Coumadin] 4 mg PO DAILY 06/03/19 Unknown Physical Exam Vital Signs - 24 hr Temp Pulse Pulse Pulse Resp BP BP 06/03/19 20:50 97.9 F 70 12 158/87 H 06/03/19 19:23 98.0 F 70 12 134/76 06/03/19 19:21 88 06/03/19 18:02 97.9 F 94 12 128/83 06/03/19 17:21 98 06/03/19 17:17 97.7 F 74 12 154/88 H Pulse Ox 06/03/19 20:50 98 06/03/19 19:23 97 06/03/19 19:21 06/03/19 18:02 98 06/03/19 17:21 06/03/19 17:17 100 Intake and Output 06/02/19 06/03/19 23:59 23:59 Weight 100.4 kg Admission Weight/BMI Admission Weight 100.4 kg Body Mass Index (BMI) 34.7 Narrative: Vitals reviewed and noted in chart Constitutional : Age-appropriate appearing, no acute distress, conversant Eyes : Anicteric sclerae clear conjunctivae ENT : No rhinorrhea, external ears are normal appearing Neck : Supple, no JVD CVS: S1 and S2, regular rhythm, no pedal edema Resp : Clear to auscultation bilaterally, normal respiratory effort, no adventitious sounds GI : soft, nondistended, nontender , reducible ventral hernia : No suprapubic tenderness, No CVA tenderness, no Mccabe Ext : No swelling, no cyanosis Neuro : No facial asymmetry, fluent speech, strength is 5/5 all 4 extremities Psych : AAAxO3, normal affect Skin : Warm and dry Results Result Diagrams: 06/03/19 17:36 06/03/19 17:36 Laboratory WBC 7.0 10 3/uL (4.0-10.5) 06/03/19 17:36 RBC 4.99 x10 6/uL (4.38-5.71) 06/03/19 17:36 Hgb 14.6 g/dL (12.9-16.6) 06/03/19 17:36 Hct 42.8 % (38.7-49.8) 06/03/19 17:36 MCV 85.7 fL (78.0-100.0) 06/03/19 17:36 MCH 29.2 pg (27.0-31.0) 06/03/19 17:36 MCHC 34.1 g/dL (32.0-36.0) 06/03/19 17:36 RDW 14.2 % (11.5-14.0) H 06/03/19 17:36 Plt Count 187 10 3/uL (150-450) 06/03/19 17:36 MPV 7.7 fl (6.0-9.5) 06/03/19 17:36 Neut % (Auto) 81.1 % (36.0-66.0) H 06/03/19 17:36 Lymph % (Auto) 12.0 % (24.0-44.0) L 06/03/19 17:36 [place] % (Auto) 6.0 % (1.7-9.3) 06/03/19 17:36 Eos % (Auto) 0.6 % (0.0-5.0) 06/03/19 17:36 Baso % (Auto) 0.3 % (0.0-1.0) 06/03/19 17:36 Neut # (Auto) 5.7 10 3/uL (1.5-6.7) 06/03/19 17:36 Lymph # (Auto) 0.8 10 3/uL (1.0-3.5) L 06/03/19 17:36 [place] # (Auto) 0.4 10 3/uL (0.2-0.8) 06/03/19 17:36 Eos # (Auto) 0.0 10 3/uL (0.0-0.7) 06/03/19 17:36 Baso # (Auto) 0.0 10 3/uL (0.0-0.2) 06/03/19 17:36 Sodium 139 mmol/L (137-145) 06/03/19 17:36 Potassium 4.0 mmol/L (3.6-5.0) 06/03/19 17:36 Chloride 103 mmol/L (98-107) 06/03/19 17:36 Carbon Dioxide 25 mmol/L (22-31) 06/03/19 17:36 Anion Gap 15 mmol/L (9-18) 06/03/19 17:36 BUN 20 mg/dL (7-21) 06/03/19 17:36 Creatinine 1.50 mg/dL (0.80-1.30) H 06/03/19 17:36 Estimated Creat Clear 45.29 06/03/19 17:36 Estimated GFR mL/min 47.000 mL/min 06/03/19 17:36 Patient Age 68 Years 06/03/19 17:36 BUN/Creatinine Ratio 13.3 Ratio (5.0-42.0) 06/03/19 17:36 Glucose 167 mg/dL (70-99) H 06/03/19 17:36 POC Glucose 141 mg/dL (70-99) H 06/03/19 17:31 Lactic Acid 2.1 mmol/L (0.7-2.4) 06/03/19 17:36 Lactic Acid Fup @ 4Hr 1.0 mmol/L (0.7-2.4) 06/03/19 21:58 Calcium 9.0 mg/dL (8.4-10.2) 06/03/19 17:36 Total Bilirubin 1.0 mg/dL (0.2-1.3) 06/03/19 17:36 AST 58 U/L (14-50) H 06/03/19 17:36 ALT 78 U/L (7-56) H 06/03/19 17:36 Alkaline Phosphatase 104 U/L (43-122) 06/03/19 17:36 Creatine Kinase 195 U/L (55-170) H 06/03/19 17:36 CK-MB (Mass) 4.4 ng/mL (0.0-3.7) H 06/03/19 22:45 Troponin I < 0.03 ng/mL (0.0-0.03) 06/03/19 17:36 Total Protein 6.7 g/dL (6.3-8.2) 06/03/19 17:36 Albumin 3.9 g/dL (3.9-5.0) 06/03/19 17:36 Globulin 2.8 g/dL 06/03/19 17:36 Albumin/Globulin Ratio 1.4 Ratio (1.1-1.8) 06/03/19 17:36 Lipase 19 U/L (23-300) L 06/03/19 17:36 Radiology Impressions Chest X-Ray 06/03/19 17:21 IMPRESSION: No active cardiopulmonary disease. Head CT 06/03/19 17:21 IMPRESSION: No acute intracranial abnormality. CT Angiography 06/03/19 18:26 IMPRESSION: 1. There is a web within the right lower lobe pulmonary artery suggesting chronic thromboembolic disease with no evidence of acute pulmonary embolism. There is no enlargement of the main pulmonary artery to suggest pulmonary arterial hypertension. 2. Fat containing ventral hernias within the abdomen. Assessment and Plan - Problem List (1) Syncope Plan: Syncope is of unknown etiology. Suspect due to hypoglycemia. Patient is a diabetic and did not eat for 6-1/2 hours prior to the event. Check orthostatics IV fluids Twelve-lead EKG done in the emergency room - sinus rhythm with PVC, right axis deviation, right ventricular hypertro phy. Rate of 97. QTC is [address] T changes suggestive of ischemia on 12 lead EKG Trend troponins every 6 hours ?2 2-D echocardiogram and carotid duplex requested Monitor on telemetry to evaluate for any cardiac dysrhythmias Current Visit: Yes Category: Medical Status: Acute (2) ADAM (acute kidney injury) Plan: Patient does not report any renal issues. Reportedly patient has renal failure and he had colon resection in 2016 but this improved. Creatinine is elevated and is 1.5. Likely this is acute kidney injury. Avoid nephrotoxic agents and renally dose medications Gentle hydration Current Visit: Yes Category: Medical Status: Acute (3) Transaminitis Plan: Unknown etiology Patient is not an alcoholic Likely this is due to dehydration Repeat LFTs in a.m. Current Visit: Yes Category: Medical Status: Acute (4) Ventral hernia without obstruction or gangrene Plan: Patient developed ventral hernia years after colon resection Patient actually had an appointment with surgeon at [facility] for rectal hernia repair about one to 2 months ago but got postponed secondary to Covid 19 pandemic Ventral hernia is reducible on physical exam Will obtain a CT of the abdomen and pelvis without contrast Current Visit: Yes Category: Medical Status: Chronic (5) History of colon cancer Plan: Status post colon resection, chemotherapy and irradiation Current Visit: Yes Category: Medical Status: Chronic (6) Obesity (BMI 30.0-34.9) Plan: Will need aggressive lifestyle modifications when feasible Current Visit: Yes Category: Medical Status: Chronic (7) Hay fever with asthma Plan: Stable Current Visit: Yes Category: Medical Status: Chronic (8) Hx pulmonary embolism Plan: Patient has a history of recurrent DVTs and PE. He was told that he needs lifelong anticoagulation He is on Coumadin. INR is therapeutic at 3.0 Resume home Coumadin for goal INR 2.0-3.0 Current Visit: Yes Category: Medical Status: Chronic (9) Diabetes mellitus Plan: Patient is a known diabetic. States that he is not on any insulins. Will resume home medications once the complete list is available For now we'll manage him on sliding scale for mealtime coverage Current Visit: Yes Category: Medical Status: Chronic (10) Secondary hypercoagulable state Plan: Secondary hypercoagulable state due to history of diabetes mellitus and colon cancer Patient is already anticoagulated with Coumadin Current Visit: Yes Category: Medical Status: Chronic 06/04/19 0047 CC: Vick ENCISO, [facility] Normal [facility] LACTATE FOLLOW UPon 06-04-19 LACTATE FOLLOW UP 1.0 mmol/L Normal 0.7-2.4 [facility] Comment on above: Order Comment: @05/13: LACTATE 2 added. RFLXG = LACTICRFX. Performed By: #### L ACTATE 2 #### Main Lab - [facility] [address] [place] [id number] PT WITH INRon 06-04-2019 INR Coag (PPP) [Relative time] 3.0 {INR} Normal [facility] Comment on above: Order Comment: @ Pre viously cancelled by [id number] on 06/04/19 at 0924. @ Uncancelled by [id number] on 06/04/19 at 0931. @ Specimen Rejected Previously Y. @ Previous Rejection Reason DUPLICATE - Duplicate orders. Result Comment: ISAAK MMENDED RANGES FOR INR: Therapeutic range for standard therapy INR: 2.0-3.0 Therapeutic range for high dose therapy INR: 2.5-3.5 Performed By: #### P T #### Main Lab - [facility] [place], [place] [address] PT Coag (PPP) [Time] 31.2 s High 12.0-14.5 [facility] Comment on above: Order Comment: @ Pre viously cancelled by [id number] on 06/04/19 at 0924. @ Uncancelled by [id number] on 06/04/19 at 0931. @ Specimen Rejected Previously Y. @ Previous Rejection Reason DUPLICATE - Duplicate orders. Performed By: #### P T #### Main Lab - [facility] [address] [place] [address] INR Coag (PPP) [Relative time] 3.1 {INR} Normal [facility] Comment on above: Result Comment: ISAAK MMENDED RANGES FOR INR: Therapeutic range for standard therapy INR: 2.0-3.0 Therapeutic range for high dose therapy INR: 2.5-3.5 Performed By: #### P T, CMP, CBC #### Main Lab - [facility] [address] [place] [address] PT Coag (PPP) [Time] 32.1 s High 12.0-14.5 [facility] Comment on above: Performed By: #### P T, CMP, CBC #### Main Lab - [facility] [place], [place] [address] TROPONIN Ion 06-04-2019 Troponin I.cardiac [Mass/Vol] 0.06 ng/mL High 0.0-0. 03 [facility] Comment on above: Result Comment: Refe rence Interval < or = 0.03 ng/mL Clinical Correlation Needed 0.03 - 0.11 ng/mL AMI Cutoff, Presumptive = or > 0.12 ng/mL Performed By: #### T ROP 1 #### Main Lab - [facility] [address] [place] [address] Troponin I.cardiac [Mass/Vol] 0.06 ng/mL High 0.0-0. 03 [facility] Comment on above: Result Comment: Refe rence Interval < or = 0.03 ng/mL Clinical Correlation Needed 0.03 - 0.11 ng/mL AMI Cutoff, Presumptive = or > 0.12 ng/mL Performed By: #### P T #### Main Lab - [facility] [address] [place], [place] [id number] US CAROTID DUPLEX BILATERALo n 06-04-2019 US CAROTID DUPLEX BILATERAL [facility] [address] [place] [address] Diagnostic Imaging Report : [id number] Signed Name: SHAD RODRIGUEZ MRUN: [id number] : 1950 Loc: 3S Age / Sex: 68 / M ADM Status: ADM Leonor ADM Date: 06/03/19 Room/Bed: [facility] Ordering Physician: Vick ENCISO, [facility] Procedure: US CAROTID DUPLEX BILATERAL Order Number(s): [id number] Ordered Date: 06/04/19 Ordered Time: 0700 EXAMINATION: ULTRASOUND EVALUATION OF THE CAROTID ARTERIES 06/04/2019 COMPARISON: None. HISTORY: Syncope FINDINGS: RIGHT: The CCA is tortuous. There is not any significant atherosclerotic plaque to suggest hemodynamically significant stenosis. Antegrade flow in right vertebral. Peak systolic velocity is 101.1 centimeter/second in the proximal ICA and 114.1 centimeter/second in the distal CCA with a IC/CC ratio of 0.9. LEFT: There is not any significant atherosclerotic plaque to suggest hemodynamically significant stenosis. Antegrade flow in the left vertebral. Peak systolic velocity is 72.0 centimeter/second in the proximal ICA and 84.9 centimeter/second in the distal CCA with IC/CC ratio of 0.8. IMPRESSION: No hemodynamically significant stenosis. No gross velocity or ratio elevations. Dictated By: Joyce Mejía DO Dictated Date/Time: 06/04/19 1134 Signed By: Negro Mejía DO Signed Date/Time: 06/04/19 1142 Transcribed Date/Time: 06/04/19 1138 Normal [facility] Waveform Imaging Reporton Waveform Imaging Report [facility] [address] [place] [address] Waveform Imaging Report : [id number] Signed Name: SHAD RODRIGUEZ MRUN: [id number] : 1950 Loc: 3S Age / Sex: 68 / M ADM Status: ADM Leonor ADM Date: 06/03/19 Room/Bed: [facility]- Ordering Physician: Modesto Hickman MD Procedure: EKG Order Number(s): [id number] Ordered Date: 06/04/19 Ordered Time: 0600 Test Date: 2019-06-04 03:50:57 Pat Name: SHAD RODRIGUEZ Department: [address] [place] [address] Room: [facility] 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: : 1950 Requested By: Modesto Hickman Order Number: [id number] Reading MD: Sakina Pack Measurements Intervals [place] Rate: 57 P: 69 DE: 150 QRS: 99 QRSD: 108 T: -168 QT: 412 QTc: 402 Interpretive Statements Sinus rhythm Lead(s) unsuitable for analysis: V3 Rightward axis Small inferior Q waves: infarct cannot be excluded Right ventricular hypertrophy Lateral T wave abnormality may be due to myocardial ischemia Abnormal ECG Electronically Signed On 06-04-2019 9:11:01 EDT by Sakina Pack Dictated By: Sakina Pack MD Dictated Date/Time: 06/04/19 0350 Signed By: Sakina Pack MD, MD Signed Date/Time: 06/04/19 0911 Transcribed Date/Time: Normal [facility] ALCOHOL, MEDICAL ONLYon 05-13 ALCOHOL, MEDICAL < 10 Normal [facility] Comment on above: Result Comment: Alco hol for medical purposes only. Performed By: #### T ROP 1 #### Main Lab - [facility] [address] [place] [address] CBC WITH AUTO DIFFon 020 Basophils (Bld) [#/Vol] 0.0 10 3/uL Normal 0.0-0.2 [facility] Comment on above: Performed By: #### P T #### Main Lab - [facility] [address] [place], [place] [address] Basophils/100 WBC (Bld) 0.3 % Normal 0.0-1.0 [facility] Comment on above: Performed By: #### P T #### Main Lab - [facility] [address] [place] [address] Eosinophils (Bld) [#/Vol] 0.0 10 3/uL Normal 0.0-0.7 [facility] Comment on above: Performed By: #### P T #### [facility] - [address] [address] Eosinophils/100 WBC (Bld) 0.6 % Normal 0.0-5.0 [facility] Comment on above: Performed By: #### P T #### [facility] - [address] [address] Erythrocyte distribution wid th (RBC) [Ratio] 14.2 % High 11.5-14.0 [facility] Comment on above: Performed By: #### P T #### [facility] - [address] [address] Hematocrit (Bld) [Volume fraction] 42.8 % Normal 38.7-49.8 [facility] Comment on above: Performed By: #### P T #### [facility] - [address] [address] Hemoglobin (Bld) [Mass/Vol] 14.6 g/dL Normal 12.9-16. 6 [facility] Comment on above: Performed By: #### P T #### [facility] - [address] [address] Lymphocytes (Bld) [#/Vol] 0.8 10 3/uL Low 1.0-3.5 [facility] Comment on above: Performed By: #### P T #### [facility] - [address] [address] Lymphocytes/100 WBC (Bld) 12.0 % Low 24.0-44.0 [facility] Comment on above: Performed By: #### P T #### [facility] - [address] [address] MCH (RBC) [Entitic mass] 29.2 pg Normal 27.0-31.0 [facility] Comment on above: Performed By: #### P T #### [facility] - [address] [address] MCHC (RBC) [Mass/Vol] 34.1 g/dL Normal 32.0-36.0 [facility] Comment on above: Performed By: #### P T #### Main Lab - [facility] [address] [place] [address] MCV (RBC) [Entitic vol] 85.7 fL Normal 78.0-100.0 [facility] Comment on above: Performed By: #### P T #### Main Lab - [facility] [address] [place] [address] Monocytes (Bld) [#/Vol] 0.4 10 3/uL Normal 0.2-0.8 [facility] Comment on above: Performed By: #### P T #### Main Lab - [address] [address] Monocytes/100 WBC (Bld) 6.0 % Normal 1.7-9.3 [facility] Comment on above: Performed By: #### P T #### [facility] - [address] [address] Neutrophils (Bld) [#/Vol] 5.7 10 3/uL Normal 1.5-6.7 [facility] Comment on above: Performed By: #### P T #### [facility] - [address] [address] Neutrophils/100 WBC (Bld) 81.1 % High 36.0-66.0 [facility] Comment on above: Performed By: #### P T #### [facility] - [facility] [address] [place] [address] Platelet mean volume (Bld) [Entitic vol] 7.7 fL Normal 6.0-9.5 [facility] Comment on above: Performed By: #### P T #### Main Lab - [facility] [address] [place] [address] Platelets (Bld) [#/Vol] 187 10 3/uL Normal 150-450 [facility] Comment on above: Performed By: #### P T #### [facility] [address] [place] [address] RBC (Bld) [#/Vol] 4.99 x10 6/uL Normal 4.38-5.71 [facility] Comment on above: Performed By: #### P T #### Main Lab - [facility] [address] [place] [address] WBC (Bld) [#/Vol] 7.0 10 3/uL Normal 4.0-10.5 [facility] Comment on above: Performed By: #### P T #### Main Lab - [facility] [address] [place] [address] COMPREHENSIVE METABOLIC PANE Sukhi 06-03-2019 Albumin [Mass/Vol] 3.9 g/dL Normal 3.9-5.0 [facility] Comment on above: Performed By: #### P T #### Main Lab - [address] [address] Albumin/Globulin [Mass ratio] 1.4 {ratio} Normal 1.1-1 .8 [facility] Comment on above: Performed By: #### P T #### [facility] - [address] [address] ALP [Catalytic activity/Vol] 104 U/L Normal 43-122 [facility] Comment on above: Performed By: #### P T #### Main Lab - [address] [address] ALT/SGPT 78 U/L High 7-56 [facility] Comment on above: Performed By: #### P T #### Main Lab - [address] [address] Anion gap [Moles/Vol] 15 mmol/L Normal 9-18 [facility] Comment on above: Performed By: #### P T #### Main Lab - [facility] [address] [place] [address] AST/SGOT 58 U/L High 14-50 [facility] Comment on above: Performed By: #### P T #### Main Lab - [address] [address] Bilirubin [Mass/Vol] 1.0 mg/dL Normal 0.2-1.3 [facility] Comment on above: Performed By: #### P T #### Main Lab - [address] [address] Calcium [Mass/Vol] 9.0 mg/dL Normal 8.4-10.2 [facility] Comment on above: Performed By: #### P T #### Main Lab - [address] [address] Chloride [Moles/Vol] 103 mmol/L Normal 98-107 [facility] Comment on above: Performed By: #### P T #### [facility] - [address] [address] CO2 [Moles/Vol] 25 mmol/L Normal 22-31 [facility] Comment on above: Performed By: #### P T #### [facility] - [address] [address] Creatinine [Mass/Vol] 1.50 mg/dL High 0.80-1.30 [facility] Comment on above: Performed By: #### P T #### [facility] - [address] [address] ESTIMATED CREAT CLEARANCE 45.29 Normal [facility] Comment on above: Result Comment: COCK CROFT-GAULT FORMULA 1973 Performed By: #### P T #### [facility] - [address] [address] ESTIMATED GLOMERULAR FILT RATE 47.000 mL/min Normal [facility] Comment on above: Performed By: #### P T #### [facility] - [address] [address] Globulin (S) [Mass/Vol] 2.8 g/dL Normal [facility] Comment on above: Performed By: #### P T #### [facility] - [address] [address] Glucose [Mass/Vol] 167 mg/dL High 70-99 [facility] Comment on above: Result Comment: The glucose range is based on recommendations from the [place] [employer] for fasting blood glucose range. Performed By: #### P T #### [facility] - [address] [address] Potassium [Moles/Vol] 4.0 mmol/L Normal 3.6-5.0 [facility] Comment on above: Performed By: #### P T #### Main Lab - [facility] [address] [place] [address] Protein [Mass/Vol] 6.7 g/dL Normal 6.3-8.2 [facility] Comment on above: Performed By: #### P T #### [facility] [address] [place] [address] 35149 Sodium [Moles/Vol] 139 mmol/L Normal 137-145 [facility] Comment on above: Performed By: #### P T #### [facility] [address] [place] [address] 14511 Urea nitrogen [Mass/Vol] 20 mg/dL Normal 7-21 [facility] Comment on above: Performed By: #### P T #### [facility] - [address] [address] Urea nitrogen/Creatinine [Ma ss ratio] 13.3 Ratio Normal 5.0-42.0 [facility] Comment on above: Performed By: #### P T #### [facility] - [address] [address] Age - Reported 68 Years Normal [facility] Comment on above: Performed By: #### P T #### [facility] [address] [place] [address] CREATINE KINASEon 06-03-2019 CK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 antiphospholipid syndrome with previous arterial or venous thromboembolism, current-generation mechanical or bioprosthetic aortic heart valve replacement.Note: Patients with mechanical aortic valve replacement and additional risk factors for thromboembolic events (atrial fibrillation, previous thromboembolism, LV dysfunction, hypercoagulable conditions) or an older generation mechanical AVR (i.e., ball in-Cage) or any mechanical MVR should have a INR therapeutic range of 2.5 to 3.5 (target INR of 3).Tuan GH, et al. Chest 2012, 141:7S-47SNishimura RA, et al. [facility] 2017, 70: 252-289 Performed By: #### P T ####[place] [id number] [place] [phone] PT Sec 14.8 sec High 9.7-13.0 [facility] Comment on above: Performed By: #### P T ####[place] [id number] [place] [phone] Vital Signs Date Time Vital Sign Value Performing Clinician Facility 05-17-2022 08:00-0400 Blood Pressure Location Yusra Denis [facility] 05-17-2022 08:00-0400 Body temperature 97.16 [degF] Yusra Denis [facility] 05-17-2022 08:00-0400 Diastolic blood pressure 81 mm[Hg] Yusra Denis [facility] 05-17-2022 08:00-0400 Heart rate 71 /min Yusra Denis [facility] 05-17-2022 08:00-0400 Respiratory rate 16 /min Yusra eDnis [facility] 05-17-2022 08:00-0400 SaO2% (BldA) [Mass fraction] 96 % Yusra Denis [facility] 05-17-2022 08:00-0400 Systolic blood pressure 131 mm[Hg] Yusra Denis [facility] 12-28-2021 13:04-0500 [facility]-28-[facility]21 13:04-0500 Body temperature 98.06 [degF] [facility] 13:04-0500 BP/Pulse [facility]-28-[facility] 13:04-0500 Diastolic blood pressure 89 mm[Hg] [facility] 12-28-2021 13:04-0500 Heart rate 89 /min [facility] 12-28-2021 13:04-0500 Mean blood pressure 104 mm[Hg] [facility] 12-28-2021 13:04-0500 Respiratory rate 16 /[facility]-28[facility]21 13:04-0500 SaO2% (BldA) [Mass fraction] 96 % Dougie Harmon [facility] 12-28-2021 13:04-0500 Systolic blood pressure 135 mm[Hg] Dougie Harmon [facility] 11-16-2021 08:26-0400 Diastolic blood pressure 80 mm[Hg] Yusra Cira [facility] 11-16-2021 08:26-0400 Mean blood pressure 99 mm[Hg] Yusra Cira [facility] 11-16-2021 08:26-0400 Systolic blood pressure 136 mm[Hg] Yusra Cira [facility] 11-16-2021 08:19-0400 Blood Pressure Location Yusra Cira [facility] 11-16-2021 08:19-0400 Body temperature 97.7 [degF] Yusra Cira [facility] 11-16-2021 08:19-0400 Diastolic blood pressure 82 mm[Hg] Yusra Cira [facility] 11-16-2021 08:19-0400 Heart rate 72 /min Yusra Cira [facility] 11-16-2021 08:19-0400 Systolic blood pressure 142 mm[Hg] Yusra Cira [facility] 10-05-2021 10:35-0400 Diastolic blood pressure 93 mm[Hg] Plascencia SALAM [facility] 10-05-2021 10:35-0400 Heart rate 64 /min Plascencia SALAM [facility] 08-25-2022 10:35-0400 Respiratory rate 12 /min Plascencia SALAM [facility] 10-05-2021 10:35-0400 SaO2% (BldA) [Mass fraction] 96 % Plascencia SALAM [facility] 10-05-2021 10:35-0400 Systolic blood pressure 138 mm[Hg] Plascencia SALAM [facility] 10-05-2021 10:25-0400 Diastolic blood pressure 86 mm[Hg] Plascencia SALAM [facility] 10-05-2021 10:25-0400 Heart rate 62 /min Plascencia SALAM [facility] 10-05-2021 10:25-0400 Respiratory rate 16 /min Plascencia SALAM [facility] 10-05-2021 10:25-0400 SaO2% (BldA) [Mass fraction] 96 % Plascencia SALAM [facility] 10-05-2021 10:25-0400 Systolic blood pressure 145 mm[Hg] Plascencia SALAM [facility] 10-05-2021 10:11-0400 Diastolic blood pressure 96 mm[Hg] Plascencia SALAM [facility] 10-05-2021 10:11-0400 Heart rate 74 /min Plascencia SALAM [facility] 10-05-2021 10:11-0400 Respiratory rate 19 /min Plascencia SALAM [facility] 10-05-2021 10:11-0400 SaO2% (BldA) [Mass fraction] 96 % Plascencia SALAM [facility] 10-05-2021 10:11-0400 Systolic blood pressure 126 mm[Hg] Plascencia SALAM [facility] 10-05-2021 09:47-0400 Blood Pressure Location Plascencia SALAM [facility] 10-05-2021 09:47-0400 Body temperature 97.34 [degF] Plascencia SALAM [facility] 10-05-2021 09:40-0400 Respiratory rate 14 /min Plascencia SALAM [facility] 10-05-2021 09:35-0400 Respiratory rate 15 /min Plascencia SALAM [facility] 10-05-2021 09:30-0400 Respiratory rate 16 /min Plascencia SALAM [facility] 10-05-2021 08:58-0400 Blood Pressure Location Plascencia SALAM [facility] 10-05-2021 08:58-0400 Body temperature 97.88 [degF] Plascencia SALAM [facility] 07-19-2021 08:51-0400 Blood Pressure Location Yusra Cira [facility] 07-19-2021 08:51-0400 Body temperature 97.34 [degF] Yusra Cira [facility] 07-19-2021 08:51-0400 Diastolic blood pressure 85 mm[Hg] Yursa Cira [facility] 07-19-2021 08:51-0400 Heart rate 74 /min Yusra Cira [facility] 07-19-2021 08:51-0400 SaO2% (BldA) [Mass fraction] 98 % Yusra Denis [facility] 07-19-2021 08:51-0400 Systolic blood pressure 129 mm[Hg] Yusra Denis [facility] Encounters Encounter Date Encounter Type Care Provider Facility Start: 01-23-2023 End: 01-23-2023 ambulatory [facility] Start: 01-08-2023 End: 01-08-2023 ambulatory [facility] Start: 12-26-2022 End: 12-26-2022 ambulatory [facility] Start: 12-12-2022 End: 12-12-2022 ambulatory [facility] Start: 12-05-2022 Evaluation and management of inpatient [facility] Start: 12-04-2022 Evaluation and management of inpatient [facility] Start: 12-04-2022 Evaluation and management of inpatient [facility] Start: 12-03-2022 Evaluation and management of inpatient [facility] Start: 12-03-2022 Evaluation and management of inpatient [facility] Start: 12-03-2022 Evaluation and management of inpatient [facility] Start: 12-02-2022 Evaluation and management of inpatient [facility] Start: 12-02-2022 Evaluation and management of inpatient [facility] Start: 12-01-2022 Evaluation and management of inpatient [facility] Start: 12-01-2022 Evaluation and management of inpatient ADRIANA SANTOS [facility] Start: 11-30-2022 Evaluation and management of inpatient ADRIANA SANTOS [facility] Start: 11-30-2022 Evaluation and management of inpatient HAYLEY CLARKO [facility] Start: 11-26-2022 Evaluation and management of inpatient [facility] Start: 11-26-2022 Evaluation and management of inpatient MERCEDES RHODESARZ [facility] Start: 11-25-2022 Evaluation and management of inpatient [facility] Start: 11-25-2022 End: 12-05-2022 Evaluation and management of inpatient [facility] Start: 11-25-2022 End: 11-25-2022 Emergency department patient visit MARTIN STINSON [facility] Start: 07-27-2022 End: 07-28-2022 ambulatory Domingo DE LA ROSA Facility:[facility] Start: 06-27-2022 End: 06-28-2022 ambulatory Dougie Harmon [facility] Start: 06-27-2022 End: 06-28-2022 ambulatory Yusra Denis [facility] Start: 06-27-2022 End: 06-28-2022 ambulatory Yusra Denis Facility[facility] Start: 06-15-2022 End: 06-16-2022 ambulatory Yusra Denis [facility] Start: 06-15-2022 End: 06-15-2022 Patient encounter procedure Yusra Denis [facility] Start: 05-17-2022 End: 05-18-2022 ambulatory Yusra Denis [facility] Start: 05-17-2022 End: 05-17-2022 Patient encounter procedure Yusra Denis [facility] Start: 02-28-2022 End: 01-01-2023 ambulatory Aggie Lynn Facility:[facility] Start: 02-28-2022 End: 12-31-2022 Recurring Aggie Lynn [facility] Start: 12-28-2021 End: 12-28-2021 Patient encounter procedure Dougie Harmon [facility] Start: 12-27-2021 End: 12-27-2021 Patient encounter procedure Dougie Harmon [facility] Start: 12-22-[address] SHAD DYSON Facility :[facility] Start: 12-14-2021 End: 12-14-[address] SHAD DYSON Facility:[facility] Start: 11-16-2021 End: 11-16-2021 Patient encounter procedure Yusra Denis [facility] Start: 10-05-2021 End: 10-05-2021 Patient encounter procedure Thais HINOJOSA [facility] Start: 07-19-2021 End: 07-19-2021 Patient encounter procedure Yusra Denis [facility] Start: 06-23-2021 End: 06-23-2021 Patient encounter procedure Dougie Harmon [facility] Start: 06-14-2021 End: 06-14-2021 Patient encounter procedure Dougie Harmon [facility] Start: 02-14-2021 End: 02-26-2022 Recurring Aggie Lynn [facility] Start: 01-20-2018 Patient encounter procedure [facility] Procedures Date Procedure Procedure Detail Performing Clinician Start: 01-23-2023 Follow-up visit ADRIANA KIRKLAND Start: 01-08-2023 Follow-up visit ADRIANA KIRKLAND Start: 12-26-2022 Follow-up visit ADRIANA KIRKLAND Start: 10-05-2021 Colonoscopy Thais YOSELIN Goel Start: 08-09-2020 Antibody screen Comment on above: Performed By: #### T [id number] ####[facility] [id number] [place], [place] [id number] Start: 03-02-2017 Colonoscopy Yusramanuel canalesz colostomy reversal Dougie rousseau Esophagogastroduoden oscopy gastric outlet reduction Yusra Cira Immunizations Immunization Date Immunization Notes Care Provider Fa [facility] 01-15-2022 influenza virus vaccine, unspecified formulation Yusramanuel HenryCira [facility] 01-15-2022 zoster vaccine recombinant Yusramanuel Rinconz [facility] 01-11-2021 influenza, unspecifi ed formulation Yusramanuel Rinconz [facility] 07-22-2020 SARS-CoV-2 (COVID-19 ) mRNA BNT-162b2 vax Yusramanuel Rinconz [facility] Comment on above: Result Comment: 2021: [id number] 06-30-2020 SARS-CoV-2 (COVID-19 ) mRNA BNT-162b2 vax Yusramanuel Denis [facility] Comment on above: Result Comment: 2021: [id number] 06-27-2020 tetanus and diphther ia toxoids, adsorbed, preservative free, for adult use (2 Lf of tetanus toxoid and 2 Lf of diphtheria toxoid) Yusra Denis [facility] 11-14-2019 influenza virus vaccine, unspecified formulation Yusra Denis [facility] 10-31-2018 influenza virus vaccine, unspecified formulation Yusramanuel HenryCira [facility] 10-31-2018 pneumococcal polysaccharide vaccine, 23 valent Yusramanuel HenryCira [facility] 10-22-2017 influenza virus vaccine, unspecified formulation Yusramanuel HenryCira [facility] 10-22-2017 pneumococcal conjuga te vaccine, 13 valent Yusra Cira [facility] 12-07-2016 influenza, unspecifi ed formulation Yusramanuel HenryCira [facility] NEGATED: Highlighted row has not occurred!11-16-2021 influenza virus vaccine, unspecified formulation Yusramanuel Denis [facility] Payers Date Payer Category Payer Medicare [id number] 1957 Self-pay 1957 Unknown [id number] 1950 Unknown [id number] 2.16.84 [id number] 1950 Unknown [id number] 2.16.84 [id number] 1950 Unknown [id number] 2.16.8 [id number] 1950 Unknown [id number] 2.16.8 [id number] 1950 Unknown [id number] 2.16.8 [id number] 1950 Unknown [id number] 2.16.8 [id number] 1950 Unknown [id number] 2.16.8 [id number] 1950 Unknown [id number] 2.16.8 [id number] 1950 Unknown [id number] 2.16.8 [id number] 1950 Unknown [id number] 2.16.8 [id number] Social History Date Type Detail Facility Tobacco [facility] Comment on above: denies current use Sex Assigned At Male [facility] Start: 07-19-2021 End: 06-27-2022 Tobacco smoking status Never smoked tobacco (finding) [facility] Comment on above: denies current use [facility] Functional Status Date Assessment Result Facility 05-17-2022 Functional Status N/A [facility] 11-16-2021 Functional Status N/A [facility] 10-05-2021 Functional Status N/A [facility] Clinical Notes 06-27-2020 to 01-23-2023 Note Date & Type Note Facility 01-23-2023 Note [facility] 01-23-2023 Note Review of Systems All other systems reviewed and are negative. PT JUST GETTING OVER COVID. FEELS GOOD, HE IS HOPING TO GO SOUTH SOON, BP ON TH LOWER SIDE TODAY, DOES NOT FEEL DIZZY [facility] 01-08-2023 Note [facility] 01-08-2023 Note [facility] 12-26-2022 Note [facility] 12-12-2022 Note [facility] 12-12-2022 Note [facility] 12-05-2022 Note [facility] 12-05-2022 Note [facility] 12-05-2022 Note [facility] 12-05-2022 Note [facility] 12-05-2022 Note [facility] 12-05-2022 Note [facility] 12-05-2022 Note [facility] 12-04-2022 Note [facility] 12-04-2022 Note [facility] 12-04-2022 Note Addendum created 1143 by Robin Pérez Intraprocedure Staff edited (Perfusion) [facility] 12-04-2022 Note [facility] 12-03-2022 Note [facility] 12-03-2022 Note [facility] 12-03-2022 Note [facility] 12-03-2022 Note [facility] 12-03-2022 Note [facility] 12-03-2022 Note [facility] 12-02-2022 Note [facility] 12-02-2022 Note This report has been cancelled. [facility] 12-02-2022 Note [facility] 12-01-2022 Note [facility] 12-01-2022 Note [facility] 12-01-2022 Note Chest tube placed at bedside per ICU MD. Patient signed consent and placed in chart. Patient tolerated procedure well. Patient Vitals are as charted. CXR ordered. Safety Maintained. [facility] 12-01-2022 Note [facility] 11-30-2022 Note [facility] 11-30-2022 Note [facility] 11-30-2022 Note [facility] 11-29-2022 Note [facility] 11-29-2022 Note [facility] 11-29-2022 Note [facility] 11-28-2022 Note [facility] 11-28-2022 Note [facility] 11-27-2022 Note [facility] 11-27-2022 Note [facility] 11-27-2022 Note [facility] 11-27-2022 Note [facility] 11-26-2022 Note [facility] 11-26-2022 Note [facility] 11-26-2022 Note [facility] 11-26-2022 Note [facility] 08-21-2022 Evaluation + Plan note Extrac lo from: [facility] Author:Aggie Hollingsworth Date: 08/21/22 Impression and Plan Patient is seen today for their interval coumadin assessment in the [facility]. He is on coumadin for DVT/PE. He has a pmhx of DVT which is unprovoked. Initial DVT was diagnosed June 20, 2015 and that eventually led to the diagnosis of his rectal cancer. He also is heterozygote for factor V Leiden mutation. He is followed by Dr. Edmond. Tolerating coumadin well, no change in diet or medication. Denies any melena, hematochezia, hematuria, gingival bleeding, hematoma's or prolonged epistaxis. . We discussed the patient's coumadin therapy today. --Indication: DVT/PE --Current coumadin pill being used: as above --Current dose of coumadin: as above --Side effects / complications of coumadin: Denies any problems with the use of coumadin -- denies any gum bleeds, nose bleeds, easy bruising, or other sequelae of coumadin toxicity. --Medication changes since last visit:-none --OTC meds / herbal meds used since the last visit: --none --Any change in diet since last visits, including vitamin-K rich foods:--none --Compliance: no missed doses We also reviewed the patient's risk factors for bleeding using the Outpatient Bleeding Risk Index: 1. 65yo or older: yes 2. Hx of GI tract bleeding: no 3. Hx of stroke: no 4. Serious co-morbid conditions (recent [place], anemia with Hct <30%, CRI with SCr > 1.5, DM): yes hx of cancer Score = 2//4 Risk (low = 0, mod = 1-2, high = 3-4): Future Appointments Appointment Date:06/27/2023 02:00:00 PM Scheduled Provider:Dougie Harmon DO Location:[facility].ONCOLOGY Appointment Type:ONC Office Visit 15 (FT) Future Scheduled Tests Laboratory* PT 01/30/22 * PT 03/02/22 * PT 04/02/22 * PT 04/30/22 * PT 05/31/22 * PT 06/30/22 * PT 01/09/22 * PT 02/06/22 * PT 03/06/22 * Vitamin B12 Level 06/27/22 [facility] Hospital Discharge instructions Patient Education 05/17/2022 08:26:00 Chronic Constipation Chronic Constipation Chronic constipation is a condition in which a person has three or fewer bowel movements a week, for three months or longer. This condition is especially common in older adults. The two main kinds of chronic constipation are secondary constipation and functional constipation. Secondary constipation results from another condition or a treatment. Functional constipation, also called primary or idiopathic constipation, is divided into three types: Normal transit constipation. In this type, movement of stool through the colon (stool transit) occurs normally. Slow transit constipation. In this type, stool moves slowly through the colon. Outlet constipation or pelvic floor dysfunction. In this type, the nerves and muscles that empty the rectum do not work normally. What are the causes? Causes of secondary constipation may include: Failing to drink enough fluid, eat enough food or fiber, or get physically active. . A tear in the anus (anal fissure). Blockage in the bowel (bowel obstruction). Narrowing of the bowel (bowel stricture). Having a long-term medical condition, such as: ?Diabetes. ?Hypothyroidism. ?Multiple sclerosis. ?Parkinson disease. ?Stroke. ?Spinal cord injury. ?Dementia. ?Colon cancer. ?Inflammatory bowel disease (IBD). ?Iron-deficiency anemia. ?Outward collapse of the rectum (rectal prolapse). ?Hemorrhoids. Taking certain medicines, including: ?Narcotics. These are a certain type of prescription pain medicine. ?Antacids. ?Iron supplements. ?Water pills (diuretics). ?Certain blood pressure medicines. ?Anti-seizure medicines. ?Antidepressants. ?Medicines for Parkinson disease. The cause of functional constipation is not known, but some conditions are associated with it. These conditions include: Stress. Problems in the nerves and muscles that control stool transit. Weak or impaired pelvic floor muscles. What increases the risk? You may be at higher risk for chronic constipation if you: Are older than age 70. Are female. Live in a long-term care facility. Do not get much exercise or physical activity (have a sedentary lifestyle). Do not drink enough fluids. Do not eat enough food, especially fiber. Have a long-term disease. Have a mental health disorder or eating disorder. Take many medicines. What are the signs or symptoms? The main symptom of chronic constipation is having three or fewer bowel movements a week for several weeks. Other signs and symptoms may vary from person to person. These include: Pushing hard (straining) to pass stool. Painful bowel movements. Having hard or lumpy stools. Having lower belly discomfort, such as cramps or bloating. Being unable to have a bowel movement when you feel the urge. Feeling like you still need to pass stool after a bowel movement. Feeling that you have something in your rectum that is blocking or preventing bowel movements. Seeing blood on the toilet paper or in your stool. Worsening confusion (in older adults). How is this diagnosed? This condition may be diagnosed based on: Symptoms and medical history. You will be asked about your symptoms, lifestyle, diet, and any medicines that you are taking. Physical exam. ?Your belly (abdomen) will be examined. ?A digital rectal exam may be done. For this exam, a health care provider places a lubricated, gloved finger into the rectum. Other tests to check for any underlying causes of your constipation. These may be ordered if you have bleeding in your rectum, weight loss, or a family history of colon cancer. In these cases, you may have: ?Imaging studies of the colon. These may include X-ray, ultrasound, or CT scan. ?Blood tests. ?A procedure to examine the inside of your colon (colonoscopy). ?More specialized tests to check: ?Whether your anal sphincter works well. This is a ring-shaped muscle that controls the closing of the anus. ?How well food moves through your colon. ?Tests to measure the nerve signal in your pelvic floor muscles (electromyography). How is this treated? Treatment for chronic constipation depends on the cause. Most often, treatment starts with: Being more active and getting regular exercise. Drinking more fluids. Adding fiber to your diet. Sources of fiber include fruits, vegetables, whole grains, and fiber supplements. Using medicines such as stool softeners or medicines that increase contractions in your digestive system (pro-motility agents). Training your pelvic muscles with biofeedback. Surgery, if there is obstruction. Treatment for secondary chronic constipation depends on the underlying condition. You may need to: Stop or change some medicines if they cause constipation. Use a fiber supplement (bulk laxative) or stool softener. Use prescription laxative. This works by absorbing water into your colon (osmotic laxative). You may also need to see a specialist who treats conditions of the digestive system (teacher ballet). Follow these instructions at home: Take vyeh-fux-xgjzrzu and prescription medicines only as told by your health care provider. If you are taking a laxative, take it as told by your health care provider. Eat a balanced diet that includes enough fiber. Ask your health care provider to recommend a diet that is right for you. Drink clear fluids, especially water. Avoid drinking alcohol, caffeine, and soda. Drink enough fluid to keep your urine pale yellow. Get some physical activity every day. Ask your health care provider what physical activities are safe for you. Get colon cancer screenings as told by your health care provider. Keep all follow-up visits as told by your health care provider. This is important. Contact a health care provider if: You are having three or fewer bowel movements a week. Your stools are hard or lumpy. You notice blood on the toilet paper or in your stool after you have a bowel movement. You have unexplained weight loss. You have rectum (rectal) pain. You have stool leakage. You experience nausea or vomiting. Get help right away if: You have rectal bleeding or you pass blood clots. You have severe rectal pain. You have body tissue that pushes out (protrudes) from your anus. You have severe pain or bloating (distension) in your abdomen. You have vomiting that you cannot control. Summary Chronic constipation is a condition in which a person has three or fewer bowel movements a week, for three months or longer. You may have a higher risk for this condition if you are an older adult, or if you do not drink enough water or get enough physical activity (are sedentary). Treatment for this condition depends on the cause. Most treatments for chronic constipation includeadding fiber to your diet, drinking more fluids, and getting more physical activity. You may also need to treat any underlying medical conditions or stop or change certain medicines if they cause constipation. If lifestyle changes do not relieve constipation, your health care provider may recommend taking a laxative. This information is not intended to replace advice given to you by your health care provider. Make sure you discuss any questions you have with your health care provider. Document Released: 08/27/2017 Document Revised: 01/10/2018 Document Reviewed: 10/15/2017 [employer] Patient Education 2020 [employer] Follow Up Care 11/16/2021 08:43:43 With:Yusra Denis CNP Address: When:1 month [facility] 10-06-2022 Hospital Discharge instructions Patient Education 11/16/2021 08:33:12 Colon Polyps Colon Polyps Polyps are tissue growths inside the body. Polyps can grow in many places, including the large intestine (colon). A polyp may be a round bump or a mushroom-shaped growth. You could have one polyp or several. Most colon polyps are noncancerous (benign). However, some colon polyps can become cancerous over time. Finding and removing the polyps early can help prevent this. What are the causes? The exact cause of colon polyps is not known. What increases the risk? You are more likely to develop this condition if you: Have a family history of colon cancer or colon polyps. Are older than 50 or older than 45 if you are . Have inflammatory bowel disease, such as ulcerative colitis or Crohn's disease. Have certain hereditary conditions, such as: ?Familial adenomatous polyposis. ?Chapman syndrome. ?Turcot syndrome. ?Peutz Jeghers syndrome. Are overweight. Smoke cigarettes. Do not get enough exercise. Drink too much alcohol. Eat a diet that is high in fat and red meat and low in fiber. Had childhood cancer that was treated with abdominal radiation. What are the signs or symptoms? Most polyps do not cause symptoms. If you have symptoms, they may include: Blood coming from your rectum when having a bowel movement. Blood in your stool. The stool may look dark red or black. Abdominal pain. A change in bowel habits, such as constipation or diarrhea. How is this diagnosed? This condition is diagnosed with a colonoscopy. This is a procedure in which a lighted, flexible scope is inserted into the anus and then passed into the colon to examine the area. Polyps are sometimes found when a colonoscopy is done as part of routine cancer screening tests. How is this treated? Treatment for this condition involves removing any polyps that are found. Most polyps can be removed during a colonoscopy. Those polyps will then be tested for cancer. Additional treatment may be needed depending on the results of testing. Follow these instructions at home: Lifestyle Maintain a healthy weight, or lose weight if recommended by your health care provider. Exercise every day or as told by your health care provider. Do not use any products that contain nicotine or tobacco, such as cigarettes and e-cigarettes. If you need help quitting, ask your health care provider. If you drink alcohol, limit how much you have: ?0 1 drink a day for women. ? 0 2 drinks a day for men. Be aware of how much alcohol is in your drink. In the [place] one drink equals one 12 oz bottle of beer (355 mL), one 5 oz glass of wine (148 mL), or one 1 oz shot of hard liquor (44 mL). Eating and drinking Eat foods that are high in fiber, such as fruits, vegetables, and whole grains. Eat foods that are high in calcium and vitamin D, such as milk, cheese, yogurt, eggs, liver, fish, and broccoli. Limit foods that are high in fat, such as fried foods and desserts. Limit the amount of red meat and processed meat you eat, such as hot dogs, sausage, celaya, and lunch meats. General instructions Keep all follow-up visits as told by your health care provider. This is important. ?This includes having regularly scheduled colonoscopies. ?Talk to your health care provider about when you need a colonoscopy. Contact a health care provider if: You have new or worsening bleeding during a bowel movement. You have new or increased blood in your stool. You have a change in bowel habits. You lose weight for no known reason. Summary Polyps are tissue growths inside the body. Polyps can grow in many places, including the colon. Most colon polyps are noncancerous (benign), but some can become cancerous over time. This condition is diagnosed with a colonoscopy. Treatment for this condition involves removing any polyps that are found. Most polyps can be removed during a colonoscopy. This information is not intended to replace advice given to you by your health care provider. Make sure you discuss any questions you have with your health care provider. Document Released: 10/24/2004 Document Revised: 05/15/2018 Document Reviewed: 05/15/2018 [employer] Patient Education 2020 51 Give. Follow Up Care 10/10/2021 11:02:12 With:Yusra Denis CNP Address: When:6 months [facility] 08-25-2022 Evaluation + Plan noteExtracted from: Title:CARMEN POSTOP Author:Dangelo Morel DO Date: 10/05/21 Plan Transfer/ Discharge: Patient can be discharged from PACU when criteria met. Condition good. Extracted from: Title:CARMEN PREOP Author:Dangelo Morel DO Date: Plan [place] [employer] Anesthesiologists (ASA) physical status classification: Class III. Anesthetic Preoperative Plan Anesthesia: General. . Anesthetic plan, risks, benefits, and alternatives discussed with the patient and/or family. Patient verbalized understanding. Anesthesia risks, benefits, alternatives discussed with patient and/or family/guardians. Risks discussed including but not limited to risks of nerve damage, injury, bleeding requiring transfusion, postop pulmonary complications, nausea, vomiting, sore throat, dental/oral injury, increase/decrease in HR or blood pressure, hoarseness, muscle or joint pain, heart complications discussed. Pt aware and desires to proceed. Future Appointments Appointment Date:10/13/2021 10:15:00 AM Scheduled Provider: Location:.CARDIO Appointment Type:Anticoagulation Follow Up 15 (FT) Appointment Date:12/28/2021 01:00:00 PM Scheduled Provider:Dougie Harmon DO Location:.ONCOLOGY Appointment Type:ONC Office Visit 15 (FT) Future Scheduled Tests Laboratory* CBC w/ Auto Diff 12/27/21 * CEA 12/27/21 * Comprehensive Metabolic Panel 12/27/21 * PT 03/07/21 * PT 04/04/21 * PT 05/02/21 * PT 05/30/21 * PT 06/27/21 * PT 07/25/21 * PT 08/22/21 * PT 09/19/21 * PT 10/17/21 * PT 11/14/21 * PT 12/12/21 * PT 01/09/22 * PT 02/06/22 * PT 03/06/22 [facility]08-25-2022 Hospital Discharge instructions Patient Education 10/05/2021 09:56:38 Colonoscopy, Care After Surgery Micaela (CUSTOM) Colonoscopy Care After Surgery Please read the instructions outlined below and refer to this sheet in the next few weeks. These discharge instructions provide you with general information on caring for yourself after you leave thespital. Your doctor may also give you specific instructions. While your treatment has been planned according to the most current medical practices available, unavoidable complications occasionally occur. If you have any problems or questions after discharge, please call your doctor. ACTIVITY You may resume your regular activity, but move at a slower pace for the next 24 hours. Take frequent rest periods for the next 24 hours. Walking will help get rid of the air and reduce the bloated feeling in your abdomen (belly). No driving for 24 hours (because of the anesthesia (medicine) used during the test). You may shower. Do not sign any important legal documents or operate any machinery for 24 hours (because of the anesthesia used during the test). NUTRITION Drink plenty of fluids. You may resume your normal diet as instructed by your doctor. Begin with a light meal and progress to your normal diet. Heavy or fried foods are harder to digestand may make you feel nauseated (sick to your stomach). Avoid alcoholic beverages for 24 hours or as instructed. MEDICATIONS You may resume your normal medications unless your doctor tells you otherwise. WHAT YOU CAN EXPECT TODAY Some feelings of bloating in the abdomen. Passage of more gas than usual. Spotting of blood in your stool or on the toilet paper. FOLLOW-UP Your doctor will discuss the results of your test with you. SEEK IMMEDIATE MEDICAL ATTENTION IF: There is more than a spotting of blood in your stool. There is abdominal distention (your abdomen is swollen). There is vomiting. You have a temperature over 101.5 F. There is abdominal pain or discomfort that is severe or gets worse throughout the day. Follow Up Care 07/19/2021 09:30:23 With:Thais HINOJOSA Address: [address] [place] [address]. [address] [place] [address] Business (1) When: Unknown Comments:OFFICE WILL CALL DATE AND TIME OF FOLLOW-UP APPT. [facility]06-08-2022 Hospital Discharge instructions Patient Education 07/19/2021 09:11:00 Dysphagia Dysphagia Dysphagia is trouble swallowing. This condition occurs when solids and liquids stick in a person's throat on the way down to the stomach, or when food takes longer to get to the stomach than usual. You may have problems swallowing food, liquids, or both. You may also have pain while trying to swallow. It may take you more time and effort to swallow something. What are the causes? This condition may be caused by: Muscle problems. They may make it difficult for you to move food and liquids through the esophagus,which is the tube that connects your mouth to your stomach. Blockages. You may have ulcers, scar tissue, or inflammation that blocks the normal passage of foodand liquids. Causes of these problems include: ?Acid reflux from your stomach into your esophagus (gastroesophageal reflux). ?Infections. ?Radiation treatment for cancer. ?Medicines taken without enough fluids to wash them down into your stomach. Stroke. This can affect the nerves and make it difficult to swallow. Nerve problems. These prevent signals from being sent to the muscles of your esophagus to squeeze (contract) and move what you swallow down to your stomach. Globus pharyngeus. This is a common problem that involves a feeling like something is stuck in yourthroat or a sense of trouble with swallowing, even though nothing is wrong with the swallowing passages. Certain conditions, such as cerebral palsy or Parkinson's disease. What are the signs or symptoms? Common symptoms of this condition include: A feeling that solids or liquids are stuck in your throat on the way down to the stomach. Pain while swallowing. Coughing or gagging while trying to swallow. Other symptoms include: Food moving back from your stomach to your mouth (regurgitation). Noises coming from your throat. Chest discomfort with swallowing. A feeling of fullness when swallowing. Drooling, especially when the throat is blocked. Heartburn. How is this diagnosed? This condition may be diagnosed by: Barium X-ray. In this test, you will swallow a white liquid that sticks to the inside of your esophagus. X-ray images are then taken. Endoscopy. In this test, a flexible telescope is inserted down your throat to look at your esophagus and your stomach. CT scans and an MRI. How is this treated? Treatment for dysphagia depends on the cause of this condition, such as: If the dysphagia is caused by acid reflux or infection, medicines may be used. They may include antibiotics and heartburn medicines. If the dysphagia is caused by problems with the muscles, swallowing therapy may be used to help youstrengthen your swallowing muscles. You may have to do specific exercises to strengthen the musclesor stretch them. If the dysphagia is caused by a blockage or mass, procedures to remove the blockage may be done. You may need surgery and a feeding tube. You may need to make diet changes. Ask your health care provider for specific instructions. Follow these instructions at home: Medicines Take uxux-oqy-hscebhf and prescription medicines only as told by your health care provider. If you were prescribed an antibiotic medicine, take it as told by your health care provider. Do notstop taking the antibiotic even if you start to feel better. Eating and drinking Follow any diet changes as told by your health care provider. Work with a diet and network applications specialist (dietitian) to create an eating plan that will help you get the nutrients you need in order to stay healthy. Eat soft foods that are easier to swallow. Cut your food into small pieces and eat slowly. Take small bites. Eat and drink only when you are sitting upright. Do not drink alcohol or caffeine. If you need help quitting, ask your health care provider. General instructions Check your weight every day to make sure you are not losing weight. Do not use any products that contain nicotine or tobacco, such as cigarettes, e- cigarettes, and chewing tobacco. If you need help quitting, ask your health care provider. Keep all follow-up visits as told by your health care provider. This is important. Contact a health care provider if you: Lose weight because you cannot swallow. Cough when you drink liquids. Cough up partially digested food. Get help right away if you: Cannot swallow your saliva. Have shortness of breath, a fever, or both. Have a hoarse voice and also have trouble swallowing. Summary Dysphagia is trouble swallowing. This condition occurs when solids and liquids stick in a person's throat on the way down to the stomach. You may cough or gag while trying to swallow. Dysphagia has many possible causes. Treatment for dysphagia depends on the cause of the condition. Keep all follow-up visits as told by your health care provider. This is important. This information is not intended to replace advice given to you by your health care provider. Make sure you discuss any questions you have with your health care provider. Document Released: 01/25/2001 Document Revised: 06/24/2019 Document Reviewed: 06/24/2019 [employer] Patient Education 2020 51 Give. Follow Up Care 07/11/2021 11:18:24 With:Yusra Denis CNP Address: When:1 month [facility] 05-16-2022 Hospital Discharge instructions Follow Up Care 06/26/2021 10:32:10 With:Dougie Harmon Address: [facility] [place] [address] [phone] Fax Business (1) When: Unknown Comments:cbc, cmp, cea in 6mofollow-up in 6mo [facility]03-22-2022 Evaluation + Plan noteExtracted from: Title:- [facility] Author:Aggie Hollingsworth Date :05/02/21 Impression and Plan Patient is seen today for their interval coumadin assessment in the [facility]. He is on coumadin for DVT/PE. He has a pmhx of DVT which is unprovoked. Initial DVT was diagnosed June 20, 2015 and that eventually led to the diagnosis of his rectal cancer. He also is heterozygote for factor V Leiden mutation. He is followed by Dr. Edmond. Tolerating coumadin well, no change in diet or medication. Denies any melena, hematochezia, hematuria, gingival bleeding, hematoma's or prolonged epistaxis. [place] discussed the patient's coumadin therapy today. --Indication: DVT/PE --Current coumadin pill being used: as above --Current dose of coumadin: as above --Side effects / complications of coumadin: Denies any problems with the use of coumadin -- denies any gum bleeds, nose bleeds, easy bruising, or other sequelae of coumadin toxicity. --Medication changes since last visit:-none --OTC meds / herbal meds used since the last visit: --none --Any change in diet since last visits, including vitamin-K rich foods:--none --Compliance: no missed doses We also reviewed the patient's risk factors for bleeding using the Outpatient Bleeding Risk Index: 1. 65yo or older: yes 2. Hx of GI tract bleeding: no 3. Hx of stroke: no 4. Serious co-morbid conditions (recent [place], anemia with Hct <30%, CRI with SCr > 1.5, DM): yes hx of cancer Score = 2//4 Risk (low = 0, mod = 1-2, high = 3-4) Future Appointments Appointment Date:02/27/2022 07:30:00 AM Scheduled Provider: [facility] Type:Anticoagulation Remote 15 (FT) Appointment Date:05/17/2022 08:00:00 AM Scheduled Provider:Yusra Denis CNP Location[facility] Appointment Type:BAD Follow Up Appointment Date:06/27/2022 01:30:00 PM Scheduled Provider:Dougie Harmon DO [facility] Type:ON[facility] Office Visit 15 (FT) Future Scheduled Tests Laboratory* CBC w/ Auto Diff 06/28/22 * CEA 06/28/22 * Comprehensive Metabolic Panel 06/28/22 * PT 01/30/22 * PT 03/02/22 * PT 04/02/22 * PT 04/30/22 * PT 05/31/22 * PT 06/30/22 * PT 03/07/21 * PT 04/04/21 * PT 05/02/21 * PT 05/30/21 * PT 06/27/21 * PT 07/25/21 * PT 08/22/21 * PT 09/19/21 * PT 10/17/21 * PT 11/14/21 * PT 12/12/21 * PT 01/09/22 * PT 02/06/22 * PT 03/06/22 [facility]07-26-2021 NoteHNO ID: [id number] Author: Cydney Koch APRN.ISIDRA Service: ? Author Type: Nurse Practitioner Type: Progress Notes Filed: 09/05/2020 11:19 AM Note Text: [facility] Clinic Date: 09/05/2020 Shad Rodriguez, 69 year old CHIEF COMPLAINT: Patient presents with: Post Op HPI: Shad Rodriguez presents for follow up from surgery. Here for followup after Open incisional hernia repair with mesh and resection of skin on 08/12/[address]David Amaya. Doing well overall, and post operative recovery has been uncomplicated. On exam, the incision(s) is/are doing well and there is no evidence of infection or hernia recurrence. Patient is pleased with repair. Plan for followup in [address] scan or sooner if needed. Patient complaints: None He denies pain, drainage, redness around wound, difficulty voiding and constipation. Fever/Chills, Abdominal Pain: Denies Back Pain: Denies Increased Heart Rate: Denies Shortness of Breath: Denies Cough / Wheezing: Denies Calf/Thigh pain or swelling: Denies Decreased Urine Output: Denies Nausea/Vomiting: Denies Diarrhea: Denies Surgery Date and Procedure: 08/12/20 1. Open right myofascial advancement flap. 2. Open left myofascial advancement flap. 3. Repair of incisional hernia. 4. Implantation of 30 x 30 cm of Prolene mesh. 5. Resection of skin and subcutaneous tissue. 6. Transverse abdominis block with bupivicaine Pathology: N/A Current Diet: Resumed presurgical diet Present Activity level: Household activities Current Medications: lisinopril 2.5 mg tablet Take 1 tablet by mouth once daily. amLODIPine (NORVASC) 2.5 mg tablet Take 1 tablet by mouth once daily. atorvastatin (LIPITOR) 10 mg tablet Take 1 tablet by mouth once daily. acetaminophen (TYLENOL) 500 mg tablet Take 2 tablets by mouth every 6 hours as needed for pain. calcium carbonate (TUMS) 500 mg chew Take 1 tablet by mouth three times daily as needed (GERD). enoxaparin (LOVENOX) 100 mg/mL syrg Inject 0.9 mL subcutaneously q 24 HR. warfarin (COUMADIN) 4 mg tablet Take 1 tablet by mouth daily as directed. oxyCODONE IR (ROXICODONE) 5 mg immediate release tablet Take 1 tablet by mouth every 6 hours as needed. magnesium hydroxide (MOM) 400 mg/5 mL suspension Take 30 mL by mouth once daily as needed. ipratropium-albuterol (DUONEB) 0.5 mg-3 mg(2.5 mg base)/3 mL nebu Inhale 3 mL as instructed every 4 hours as needed for wheezing/shortness of breath. guaiFENesin (MUCINEX) 600 mg 12 hr tablet Take 1 tablet by mouth every 12 hours as needed (help with congestion). docusate sodium (COLACE) 100 mg capsule Take 1 capsule by mouth twice daily. While taking narcotic pain medication glipiZIDE (GLUCOTROL XL) 2.5 mg 24 hr tablet Take 2.5 mg by mouth once daily. loperamide (IMODIUM) 2 mg cap(s) TAKE 2 CAPSULES BY MOUTH BEFORE MEALS AND AT BEDTIME pantoprazole DR (PROTONIX) 40 mg tablet Take 1 tablet by mouth DAILY (6 AM). REVIEW OF SYSTEMS: CONSTITUTIONAL: Patient denies fevers, chills, sweats CARDIOVASCULAR: Patient denies chest pains, palpitations RESPIRATORY: No dyspnea on exertion, no wheezing or cough. GI: see HPI MUSCULOSKELETAL: No new myalgias or arthralgias. DERMATOLOGIC: Patient denies any rashes or skin changes. Incision(s) ok. PHYSICAL EXAM: BP 139/84 Pulse 77 Temp (Src) 97.7 (Tympanic) Ht 5' 7 (1.70m) Wt 190 lb 3.2 oz (86.3kg) BMI 29.78 kg/(m2). GENERAL: No apparent distress. Pt is alert and oriented x3. LUNGS: Clear to auscultation, no wheezing, no dyspnea HEART: Regular rate and rhythm without murmur. No leg edema ABDOMEN: Soft, nontender, and nondistended. Positive bowel sounds. EXTREMITIES: Without any cyanosis, clubbing, rash, lesions or edema. INCISIONS: Clean, dry, intact, well approximated. No s/s of infection. PLAN: Post-op patient instructions were reviewed with the patient. I have explained to Mr. Rodriguez that he may return to normal activity with the following restrictions: No heavy lifting, pushing, or pulling greater than 20 lbs for 4 weeks post-operatively. I have encouraged him to contact me at any time with any questions or concerns that may arise. Plan for followup in [address] scan or sooner if needed. Randomized control trial: RINSE/FIXATION Cydney Koch APRN.ACCESS CONTROL OFFICER September 04, 2020 1113AM [facility] for Abdominal Core [facility]07-09-2021 NoteHNO ID: [id number] Author: Moris Shelton MD Service: General Surgery Author Type: Resident Type: Progress Notes Filed: 08/19/2020 7:28 AM Note Text: HERNIA SERVICE PROGRESS NOTE Patient Name: Shad Rodriguez Date: 08/19/2020 Time: 7:27 AM Interval: No acute events post-operatively. Patient doing well; pain well controlled No nausea or vomiting. Tolerating diet, having bowel function Denies CP or SOB. PHYSICAL EXAMINATION: BP 149/82 Pulse 71 Temp (Src) 98.4 (Oral) Resp 18 Ht 5' 7.008 (1.70m) Wt 206 lb (93.4kg) SpO2 96% BMI 32.26 kg/(m2). O2 Therapy: Room Air General: resting comfortably in bed, awake, alert and appropriate Pulmonary: No SOB, no increased WOB; CTA B/l Cardiovascular: warm and well perfused; regular rate Abdomen: soft, appropriately tender, non-distended; Incision: cdi, JIM drain: SS Extremities: no lower extremity edema Neuro: Follows commands and moves all limbs spontaneously Labs: CBC: Recent Labs 08/18/20 0555 08/17/20 0656 08/16/20 0434 08/15/20 0632 08/14/20 0554 08/14/20 0554 08/14/20 0422 08/14/20 0422 08/12/20 2356 08/12/20 2356 WBC 6.07 6.51 5.55 8.39 -- 8.86 -- 7.76 -- 14.32* HB 13.5 13.5 13.5 14.2 -- 13.8 -- 13.7 -- 14.6 HCT 42.3 40.9 41.1 42.6 -- 41.8 -- 41.3 -- 44.0 PLT 219 210 195 197 -- 184 -- Platelets Clumped, Estimate Normal -- 200 MCV 88.7 87.6 87.6 87.5 < > 87.8 < > 87.3 < > 88.0 RDWCV 13.5 13.7 14.0 13.9 < > 14.0 < > 14.1 < > 13.7 NEUTP -- -- -- 79.5 -- 84.9 -- 79.7 -- 89.8 ABSNEUT -- -- -- 6.67 -- 7.52* -- 6.19 -- 12.86* LYMPHP -- -- -- 10.0 -- 6.3 -- 10.3 -- 3.4 MONOP -- -- -- 9.4 -- 8.5 -- 9.4 -- 6.7 EODINP -- -- -- 0.7 -- 0.2 -- 0.3 -- 0.0 < > = values in this interval not displayed. COAG: Recent Labs 08/19/20 0541 08/18/20 0555 INR 1.2 1.0 BMP: Recent Labs 08/19/20 0541 08/18/20 0555 08/17/20 0656 08/16/20 0434 08/15/20 0632 08/14/20 0554 08/14/20 0422 08/13/20 0447 08/12/20 2356 08/12/20 2356 GLUC 117* 119* 134* 126* 132* 148* 131* -- -- 149* NA 134* 136 133* 137 135* 137 137 -- -- 133* K 4.2 4.0 4.0 4.4 4.6 4.3 4.4 4.7 < > Unable to assay due to interference from hemolysis. Suggest reorder as clinically indicated. CHLOR 100 100 96* 100 98 100 100 -- -- 100 CO2 25 27 27 26 25 27 30 -- -- 21* ANION 9 9 10 11 12 10 7* -- -- 12 BUN 21 22 20 16 17 17 17 -- -- 20 CREAT 1.13 1.10 1.15 1.02 1.05 1.15 1.13 -- -- 1.20 < > = values in this interval not displayed. CHEM: Recent Labs 08/19/20 0541 08/18/20 0555 08/17/20 0656 08/16/20 0434 08/15/20 0632 08/14/20 2104 08/14/20 0554 08/14/20 0422 08/13/20 1724 08/12/20 2356 CA 8.9 9.0 9.0 9.2 9.2 -- 9.3 9.2 -- 9.2 MG 2.1 2.2 2.1 2.2 -- 2.3 -- 2.2 2.0 -- HEPATIC: No results for input(s): ALKPHOS, ALT, AST, TBILI, LIPASE, AMYLASE in the last 168 hours. CARDIAC: No results for input(s): CKTEST, CKMB, CKMBP, TROPT, PBNP in the last 168 hours. ASSESSMENT AND PLAN 69 year old year old male 7 Days Post-Op s/p ventral hernia repair. PMH significant for rectal cancer s/p LAR, DMII, DVT, Factor V Leiden. Doing well, bridging home warfarin. Ready for discharge to SNF. PLAN: ROBF, diet GI soft Pain PO PRN Home GERD meds Lovenox bridge, warfarin started. Scheduled for outpt warfarin clinic. Monitor JIM output from remaining drain PRN antiemetics Encourage OOB and ambulation Encourage IS and pulmonary toilet Dispo: plan for discharge to SNF today; family to transport Outpatient gen surg schedule 2-3 weeks. Moris Shelton MD [facility] Service [phone] For calls on nights and weekends, please page the gen surg pager: [phone] 7:27 AM, 08/19/2020 [facility]07-08-2021 NoteHNO ID: [id number] Author: Amanda Aldana MD Service: General Surgery Author Type: Resident Type: Progress Notes Filed: 08/18/2020 1:13 PM Note Text: HERNIA SERVICE PROGRESS NOTE Patient Name: Shad Rodriguez Date: 08/18/2020 Time: 1:08 PM Interval: No acute events post-operatively. Patient doing well; pain well controlled No nausea or vomiting. Had a BM overnight Denies CP or SOB. PHYSICAL EXAMINATION: BP 146/90 Pulse 105 Temp (Src) 97.7 (Oral) Resp 17 Ht 5' 7.008 (1.70m) Wt 206 lb (93.4kg) SpO2 95% BMI 32.26 kg/(m2). O2 Therapy: Room Air General: resting comfortably in bed, awake, alert and appropriate Pulmonary: No SOB, no increased WOB; CTA B/l Cardiovascular: warm and well perfused; regular rate Abdomen: soft, appropriately tender, non-distended; Incision: cdi, JIM drains: minimal output, SS Extremities: no lower extremity edema Neuro: Follows commands and moves all limbs spontaneously Labs: CBC: Recent Labs 08/18/2055408/17/2056 08/16/204 08/15/2063108/14/20 0554 08/14/20 0554 08/14/20 04208/14/2042108/12/20 2356 08/12/20 235 WBC 6.07 6.51 5.55 8.39 -- 8.86 -- 7.76 -- 14.32* HB 13.5 13.5 13.5 14.2 -- 13.8 -- 13.7 -- 14.6 HCT 42.3 40.9 41.1 42.6 -- 41.8 -- 41.3 -- 44.0 PLT 219 210 195 197 -- 184 -- Platelets Clumped, Estimate Normal -- 200 MCV 88.7 87.6 87.6 87.5 < > 87.8 < > 87.3 < > 88.0 RDWCV 13.5 13.7 14.0 13.9 < > 14.0 < > 14.1 < > 13.7 NEUTP -- -- -- 79.5 -- 84.9 -- 79.7 -- 89.8 ABSNEUT -- -- -- 6.67 -- 7.52* -- 6.19 -- 12.86* LYMPHP -- -- -- 10.0 -- 6.3 -- 10.3 -- 3.4 MONOP -- -- -- 9.4 -- 8.5 -- 9.4 -- 6.7 EODINP -- -- -- 0.7 -- 0.2 -- 0.3 -- 0.0 < > = values in this interval not displayed. COAG: Recent Labs 08/18/20554 INR 1.0 BMP: Recent Labs 08/18/2055408/17/2056 08/16/204 08/15/20 0632 08/14/20 0554 08/14/20 0422 08/13/20 0447 08/12/20 2356 GLUC 119* 134* 126* 132* 148* 131* -- 149* NA 136 133* 137 135* 137 137 -- 133* K 4.0 4.0 4.4 4.6 4.3 4.4 4.7 Unable to assay due to interference from hemolysis. Suggest reorder as clinically indicated. CHLOR 100 96* 100 98 100 100 -- 100 CO2 27 27 26 25 27 30 -- 21* ANION 9 10 11 12 10 7* -- 12 BUN 22 20 16 17 17 17 -- 20 CREAT 1.10 1.15 1.02 1.05 1.15 1.13 -- 1.20 CHEM: Recent Labs 08/18/20 0555 08/17/20 0656 08/16/20 0434 08/15/20 0632 08/14/20 2104 08/14/20 0554 08/14/20 0422 08/13/20 1724 08/12/20 2356 CA 9.0 9.0 9.2 9.2 -- 9.3 9.2 -- 9.2 MG 2.2 2.1 2.2 -- 2.3 -- 2.2 2.0 -- HEPATIC: No results for input(s): ALKPHOS, ALT, AST, TBILI, LIPASE, AMYLASE in the last 168 hours. CARDIAC: No results for input(s): CKTEST, CKMB, CKMBP, TROPT, PBNP in the last 168 hours. ASSESSMENT AND PLAN 69 year old year old male 6 Days Post-Op s/p ventral hernia repair. PMH significant for rectal cancer s/p LAR, DMII, DVT, Factor V Leiden. Doing well, bridging home warfarin. Ready for discharge to SNF. PLAN: ROBF, diet GI soft Pain PO Home GERD meds Lovenox bridge, warfarin started. Scheduled for outpt warfarin clinic. Removed LUQ JIM, low output. Monitor JIM output PRN antiemetics Encourage OOB and ambulation Encourage IS and pulmonary toilet Dispo planning with CM to SNF Outpatient gen surg schedule 2-3 weeks. Amanda Aldana MD [facility] Service [phone] For calls on nights and weekends, please page the gen surg pager: [phone] 1:08 PM, 08/18/2020 [facility]07-07-2021 NoteHNO ID: [id number] Author: Moris Shelton MD Service: General Surgery Author Type: Resident Type: Progress Notes Filed: 08/17/2020 2:12 PM Note Text: SERVICE DATE: 08/17/2020 SERVICE TIME: 2:11 PM GENERAL SURGERY SERVICE PROGRESS NOTE Subjective POD 5 Open ventral hernia repair with mesh, with bilateral transversus abdominis release INTERVAL HPI: No acute events overnight Patient comfortable, pain well controlled Tolerating diet and having bowel funtion Denies chest pain or shortness of breath Objective BP 104/72 Pulse 73 Temp (Src) 97.9 (Oral) Resp 16 Ht 5' 7.008 (1.70m) Wt 206 lb (93.4kg) SpO2 97% BMI 32.26 kg/(m2). O2 Therapy: Room Air Date 08/16/20699 - 08/17/2059 08/17/20 07 - 08/18/20 0659 Shift 3630-5842 0887-6490 6215-8049 24 Hour Total 5845-3694 2452-9582 2638-4033 24 Hour Total INTAKE PO 300 250 550 480 480 PO 300 250 550 480 480 Supplements (mL) 0 0 IV 75 75 Volume (mL) (lactated ringers iv infusion) 75 75 Shift Total 375 250 625 480 480 OUTPUT Urine 800 963 083 6336 351 351 Void (ml) 800 986 925 3390 351 351 Urine Not Saved. 1 x 1 x Tubes 65 60 110 235 60 60 Drain/Tube Output (Drain/Tube 08/12/20 1057 Sivakumar Right Upper Quadrant Abdomen Drain #1) 30 20 30 80 25 25 Drain/Tube Output (Drain/Tube 08/12/20 1057 Sivakumar Left Upper Quadrant Abdomen Drain #2) 35 40 80 155 35 35 # of BMs Number of BMs 0 x 0 x 0 x 0 x 0 x 0 x Stool 0 0 0 0 Liquid BM (mL) 0 0 0 0 Shift Total 869 417 899 7825 411 411 Weight (kg) 93.4 93.4 93.4 93.4 93.4 93.4 93.4 93.4 Lines, Drains, and Airways Line Peripheral 08/16/20 1044 Right Forearm 20 Gauge 1 day Drain Drain/Tube 08/12/20 1057 Sivakumar Left Upper Quadrant Abdomen Drain #2 5 days Drain/Tube 08/12/20 1057 Sivakumar Right Upper Quadrant Abdomen Drain #1 5 days PHYSICAL EXAM GENERAL: Alert and oriented times to person, place and time, in no acute distress. LUNGS: Non- Labored breathing on room air. CARDIAC: Regular rate. ABDOMEN: Soft, appropriately tender, mildly distended; incision c/d/i; drains collecting s/s fluid INCISIONS: Clean, dry and intact EXTREMITIES: Warm, no lower extremity edema Assessment AND Plan Gastrointestinal Ventral hernia? (present on admission) Assessment: 69 year old year old male 2 Days Post-Op s/p TAR for ventral hernia repair PLAN: ROBF, continue DENTAL soft diet Continue current pain regimen Home GERD meds Initiating therapeutic lovenox for transition to warfarin Continue drains, monitor outpus PRN antiemetics Encourage OOB and ambulation Encourage IS and pulmonary toilet Dispo: possible d/c 08/18; Case Management following for SNF placement Medication and Non-Pharmacologic VTE Prophylaxis/Anticoagulants Anticoagulant AND Antiplatelet Medications (From admission, onward) Comment Start Dose Route Frequency Last Action Ordered Stop 08/17/20 2100 enoxaparin 90 mg injection (LOVENOX) (enoxaparin injection (LOVENOX)) 90 mg SUBCUTANEOUS EVERY 24 HOURS Ordered 08/17/20 1102 -- 08/17/20 1700 warfarin 4 mg tab(s) (COUMADIN) 4 mg ORAL DAILY - WARFARIN Ordered 08/17/20 1102 -- 08/12/20 1515 pneumatic compression stockings ([place]) 08/12/20 1515 activity - mobilize patient ([place]) VTE Prophylaxis: VTE prophylaxis appropriate Plan of care discussed with: Provider, RN, Patient SIGNATURE: Moris Shelton MD PATIENT NAME: Shad Rodriguez DATE: August 17, 2020 TIME: 2:11 [facility] [place]07-06-2021 NoteHNO ID: [id number] Author: Amanda Aldana MD Service: General Surgery Author Type: Resident Type: Progress Notes Filed: 08/16/2020 7:52 AM Note Text: SERVICE DATE: 08/16/2020 SERVICE TIME: 7:52 AM HERNIA SERVICE PROGRESS NOTE Patient Name: Shad Rodriguez Date: 08/16/2020 Time: 5:44 AM Interval: No acute events post-operatively. Patient doing well; pain well controlled No nausea or vomiting. Endorsing GERD ROBF Denies CP or SOB. PHYSICAL EXAMINATION: BP 150/74 Pulse 70 Temp (Src) 98.1 (Oral) Resp 18 Ht 5' 7.008 (1.70m) Wt 206 lb (93.4kg) SpO2 93% BMI 32.26 kg/(m2). O2 Therapy: Nasal Cannula, Liters: 2.00, %FIO2: (2L [place]) General: sitting in chair comfortably, awake, alert and appropriate Pulmonary: No SOB, no increased WOB; CTA B/l Cardiovascular: warm and well perfused; regular rate Abdomen: soft, appropriately tender, non-distended; Incision: cdi, superior swelling, ?hematoma JIM drains: SS Extremities: no lower extremity edema Neuro: Follows commands and moves all limbs spontaneously Labs: CBC: Recent Labs 08/16/20 0434 08/15/20 0632 08/14/20 0554 08/14/20 0422 08/12/20 2356 08/12/20 2356 08/09/20 0931 08/09/20 0931 WBC 5.55 8.39 8.86 7.76 -- 14.32* -- 5.19 HB 13.5 14.2 13.8 13.7 -- 14.6 -- 14.7 HCT 41.1 42.6 41.8 41.3 -- 44.0 -- 44.5 PLT 195 197 184 Platelets Clumped, Estimate Normal -- 200 -- 193 MCV 87.6 87.5 87.8 87.3 < > 88.0 < > 86.9 RDWCV 14.0 13.9 14.0 14.1 < > 13.7 < > 13.3 NEUTP -- 79.5 84.9 79.7 -- 89.8 < > 74.9 ABSNEUT -- 6.67 7.52* 6.19 -- 12.86* < > 3.89 LYMPHP -- 10.0 6.3 10.3 -- 3.4 < > 13.1 MONOP -- 9.4 8.5 9.4 -- 6.7 < > 8.7 EODINP -- 0.7 0.2 0.3 -- 0.0 < > 2.9 < > = values in this interval not displayed. COAG: No results for input(s): APTT, INR in the last 168 hours. BMP: Recent Labs 08/15/20 0632 08/14/20 0554 08/14/20 0422 08/13/20 0447 08/12/20 2356 08/09/20 0931 GLUC 132* 148* 131* -- 149* 122* NA 135* 137 137 -- 133* 138 K 4.6 4.3 4.4 4.7 Unable to assay due to interference from hemolysis. Suggest reorder as clinically indicated. 4.4 CHLOR 98 100 100 -- 100 104 CO2 25 27 30 -- 21* 26 ANION 12 10 7* -- 12 8* BUN 17 17 17 -- 20 20 CREAT 1.05 1.15 1.13 -- 1.20 1.32* CHEM: Recent Labs 08/15/20 0632 08/14/20 2104 08/14/20 0554 08/14/2042108/13/20 1724 08/12/206 08/09/20 0931 ALB -- -- -- -- -- -- 4.0 TPROT -- -- -- -- -- -- 6.8 CA 9.2 -- 9.3 9.2 -- 9.2 9.5 MG -- 2.3 -- 2.2 2.0 -- -- HEPATIC: Recent Labs 08/09/20 0931 ALKPHOS 121* ALT 57* AST 66* TBILI 0.5 CARDIAC: No results for input(s): CKTEST, CKMB, CKMBP, TROPT, PBNP in the last 168 hours. ASSESSMENT AND PLAN 69 year old year old male 2 Days Post-Op s/p TAR for ventral hernia repair ? ROBF, advancing diet GI soft Switching to pain PO Home GERD meds Lovenox Monitor JIM output PRN antiemetics Encourage OOB and ambulation Encourage IS and pulmonary toilet Amanda Aldana MD [facility] Service [phone] For calls on nights and weekends, please page the gen surg pager: [phone] 5:44 AM, 08/16/2020 Assessment AND Plan Active Hospital Problems as of 08/16/2020 Noted - Resolved [facility] Ventral hernia 08/12/2020 - Present Yes Current Assessment AND Plan Assessment: 69 year old year old male 2 Days Post-Op s/p TAR for ventral hernia repair PLAN: ROBF, advancing diet GI soft Switching to pain PO Home GERD meds Lovenox Monitor JIM output PRN antiemetics Encourage OOB and ambulation Encourage IS and pulmonary toilet Medication and Non-Pharmacologic VTE Prophylaxis/Anticoagulants Anticoagulant AND Antiplatelet Medications (From admission, onward) Comment Start Dose Route Frequency Last Action Ordered Stop 08/13/20 2100 enoxaparin 40 mg injection (LOVENOX) (enoxaparin injection (LOVENOX)) 40 mg SUBCUTANEOUS EVERY 24 HOURS Given, 08/16 205508/13/20 0856 -- 08/12/20 1515 pneumatic compression stockings ([place]) 08/12/20 1515 activity - mobilize patient ([place]) VTE Prophylaxis: VTE prophylaxis appropriate Plan of care discussed with: Provider, RN, Patient and Care Management SIGNATURE: Amanda Aldana MD PATIENT NAME: Shad Rodriguez DATE: August 16, 2020 TIME: 7:52 [facility]07-05-2021 NoteHNO ID: [id number] Author: Parish Gooden MD Service: General Surgery Author Type: Resident Type: Progress Notes Filed: 08/15/2020 6:30 AM Note Text: HERNIA SERVICE PROGRESS NOTE Patient Name: Shad Rodriguez Date: 08/15/2020 Time: 5:47 AM Interval: No acute events post-operatively. Patient doing well; pain well controlled No nausea or vomiting. Denies CP or SOB. No BM PHYSICAL EXAMINATION: BP 151/89 Pulse 81 Temp (Src) 97.2 (Oral) Resp 18 Ht 5' 7.008 (1.70m) Wt 206 lb (93.4kg) SpO2 98% BMI 32.26 kg/(m2). O2 Therapy: Nasal Cannula, Liters: 2 General: resting comfortably in bed, awake, alert and appropriate Pulmonary: No SOB, no increased WOB; CTA B/l Cardiovascular: warm and well perfused; regular rate Abdomen: soft, appropriately tender, non-distended; Incision: dressing in place with minimal strikethrough, JIM drains: L/RUQ , SS Extremities: no lower extremity edema Neuro: Follows commands and moves all limbs spontaneously Labs: CBC: Recent Labs 08/14/20 0554 08/14/2042108/12/20235508/09/20 0931 WBC 8.86 7.76 14.32* 5.19 HB 13.8 13.7 14.6 14.7 HCT 41.8 41.3 44.0 44.5 PLT 184 Platelets Clumped, Estimate Normal 200 193 MCV 87.8 87.3 88.0 86.9 RDWCV 14.0 14.1 13.7 13.3 NEUTP 84.9 79.7 89.8 74.9 ABSNEUT 7.52* 6.19 12.86* 3.89 LYMPHP 6.3 10.3 3.4 13.1 MONOP 8.5 9.4 6.7 8.7 EODINP 0.2 0.3 0.0 2.9 COAG: No results for input(s): APTT, INR in the last 168 hours. BMP: Recent Labs 08/14/20 0508/14/2042108/13/20 04408/12/20235508/09/20 0931 GLUC 148* 131* -- 149* 122* NA 137 137 -- 133* 138 K 4.3 4.4 4.7 Unable to assay due to interference from hemolysis. Suggest reorder as clinically indicated. 4.4 CHLOR 100 100 -- 100 104 CO2 27 30 -- 21* 26 ANION 10 7* -- 12 8* BUN 17 17 -- 20 20 CREAT 1.15 1.13 -- 1.20 1.32* CHEM: Recent Labs 08/14/204 08/14/20 0554 08/14/20 0422 08/13/20 1724 08/12/20 2356 08/09/20 0931 ALB -- -- -- -- -- 4.0 TPROT -- -- -- -- -- 6.8 CA -- 9.3 9.2 -- 9.2 9.5 MG 2.3 -- 2.2 2.0 -- -- HEPATIC: Recent Labs 08/09/20 0931 ALKPHOS 121* ALT 57* AST 66* TBILI 0.5 CARDIAC: No results for input(s): CKTEST, CKMB, CKMBP, TROPT, PBNP in the last 168 hours. 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 Patient doing well; pain well controlled No nausea or vomiting. Denies CP or SOB. PHYSICAL EXAMINATION: BP 151/86 Pulse 67 Temp (Src) 97.7 (Oral) Resp 17 Ht 5' 7.008 (1.70m) Wt 206 lb (93.4kg) SpO2 97% BMI 32.26 kg/(m2). O2 Therapy: Nasal Cannula, Liters: 2.00 General: resting comfortably in bed, awake, alert and appropriate Pulmonary: No SOB, no increased WOB; CTA B/l Cardiovascular: warm and well perfused; regular rate Abdomen: soft, appropriately tender, non-distended; Incision: dressing in place with minimal strikethrough, JIM drains: L/RUQ , SS Extremities: no lower extremity edema Neuro: Follows commands and moves all limbs spontaneously Labs: CBC: Recent Labs 08/14/20 0554 08/14/2042108/12/20235508/09/20 0931 WBC 8.86 7.76 14.32* 5.19 HB 13.8 13.7 14.6 14.7 HCT 41.8 41.3 44.0 44.5 PLT 184 Platelets Clumped, Estimate Normal 200 193 MCV 87.8 87.3 88.0 86.9 RDWCV 14.0 14.1 13.7 13.3 NEUTP 84.9 79.7 89.8 74.9 ABSNEUT 7.52* 6.19 12.86* 3.89 LYMPHP 6.3 10.3 3.4 13.1 MONOP 8.5 9.4 6.7 8.7 EODINP 0.2 0.3 0.0 2.9 COAG: No results for input(s): APTT, INR in the last 168 hours. BMP: Recent Labs 08/14/20 0508/14/2042108/13/20 0447 08/12/20235508/09/20 0931 GLUC 148* 131* -- 149* 122* NA 137 137 -- 133* 138 K 4.3 4.4 4.7 Unable to assay due to interference from hemolysis. Suggest reorder as clinically indicated. 4.4 CHLOR 100 100 -- 100 104 CO2 27 30 -- 21* 26 ANION 10 7* -- 12 8* BUN 17 17 -- 20 20 CREAT 1.15 1.13 -- 1.20 1.32* CHEM: Recent Labs 08/14/20 0508/14/2042108/13/20 1724 08/12/20235508/09/20 0931 ALB -- -- -- -- 4.0 TPROT -- -- -- -- 6.8 CA 9.3 9.2 -- 9.2 9.5 MG -- 2.2 2.0 -- -- HEPATIC: Recent Labs 08/09/20 0931 ALKPHOS 121* ALT 57* AST 66* TBILI 0.5 CARDIAC: No results for input(s): CKTEST, CKMB, CKMBP, TROPT, PBNP in the last 168 hours. 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 Patient doing well; pain well controlled No nausea or vomiting. Denies CP or SOB. PHYSICAL EXAMINATION: BP 152/84 Pulse 75 Temp (Src) 97.3 (Oral) Resp 16 SpO2 95% O2 Therapy: Nasal Cannula, Liters: 2 General: resting comfortably in bed, awake, alert and appropriate Pulmonary: No SOB, no increased WOB; CTA B/l Cardiovascular: warm and well perfused; regular rate Abdomen: soft, appropriately tender, non-distended; Incision: dressing in place with minimal strikethrough, JIM drains: L/RUQ , SS Extremities: no lower extremity edema Neuro: Follows commands and moves all limbs spontaneously Labs: CBC: Recent Labs 08/12/20 2356 08/09/20 0931 WBC 14.32* 5.19 HB 14.6 14.7 HCT 44.0 44.5 PLT 200 193 MCV 88.0 86.9 RDWCV 13.7 13.3 NEUTP 89.8 74.9 ABSNEUT 12.86* 3.89 LYMPHP 3.4 13.1 MONOP 6.7 8.7 EODINP 0.0 2.9 COAG: No results for input(s): APTT, INR in the last 168 hours. BMP: Recent Labs 08/13/20 0447 08/12/20235508/09/20 0931 GLUC -- 149* 122* NA -- 133* 138 K 4.7 Unable to assay due to interference from hemolysis. Suggest reorder as clinically indicated. 4.4 CHLOR -- 100 104 CO2 -- 21* 26 ANION -- 12 8* BUN -- 20 20 CREAT -- 1.20 1.32* CHEM: Recent Labs 08/12/20235508/09/20 0931 ALB -- 4.0 TPROT -- 6.8 CA 9.2 9.5 HEPATIC: Recent Labs 08/09/20 0931 ALKPHOS 121* ALT 57* AST 66* TBILI 0.5 CARDIAC: No results for input(s): CKTEST, CKMB, CKMBP, TROPT, PBNP in the last 168 hours. 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 Author Type: ? Type: Progress Notes Filed: 08/09/2020 9:33 AM Note Text: AMBULATORY PATIENT EDUCATION NOTE PRE-OP TEACHING PROCEDURE: IMPLANT MESH/PROSTHESIS VENTRAL HERNIA REPAIR READINESS TO LEARN COGNITIVE ABILITY: Alert and oriented MOTIVATION TO LEARN: Eager Interested FAMILY SUPPORT: None - Unavailable/disinterested INSTRUCTION PROVIDED TO: Patient PATIENT LEARNS BEST BY: Multiple Methods FACTORS AFFECTING LEARNING: None PHYSICAL LIMITATIONS AFFECTING LEARNING: None LEARNING RESPONSE DIAGNOSIS: Incisional hernia without obstruction or gangrene METHOD OF INSTRUCTION: Individual instruction Written instruction - handouts Verbal instruction PATIENT / FAMILY RESPONSE: Verbalizes understanding of: EQUIPMENT USE-Correct use of Equipment INFECTION MANAGEMENT-Signs and symptoms of an infection and importance of contacting the physician MEDICAL REGIMEN-Importance of following prescribed medical regimen PAIN MANAGEMENT-Effective strategies to manage pain in addition to pain medication PHYSICAL RESTRICTIONS-Physical restrictions and recommendations after discharge from the hospital POST-OPERATIVE INSTRUCTIONS-Correct actions to take to reduce postoperative complications PATIENT SAFETY PRINCIPLES SYMPTOM MANAGEMENT-Correct actions to take to manage symptoms associated with his/her disease/illness VTE prevention measures WORSENING CONDITION-Signs and symptoms of a worsening condition that warrant a call to the physician FOLLOW-UP PLAN: Patient instructed to call with any further issues Contact information given. SUPPLEMENTAL MATERIAL: Your Surgical Guide REFERRAL (RECOMMENDATION): None Electronically Signed By: Ledy Johns RN [facility] NoteHNO ID: [id number] Author: Felicia Amaya MD Service: ? Author Type: Physician Type: Progress Notes Filed: 06/28/2020 2:57 PM Note Text: Attending Note I evaluated the patient and personally participated in the rosen components. I agree with the resident's findings and plan as documented and have discussed the case and management of the patient's care with the resident. Signature: FELICIA AMAYA MD Mr Rodriguez is known to me as I have seen him in the past and was prepared to repair his hernia. Prior to surgery he had other medical conditions that delayed surgery but he returns today to discuss surgery. His hernia has enlarged and he will require an open ventral hernia repair with retromuscular mesh. I discussed the risks, benefits and alternatives with him and he signed consent in the office. Patient consented for study? Yes IRB NO.: #[id number] STUDY TITLE: Single Blinded Non-inferiority Registry Based Randomized Control Trial Comparing Transfascial Sutures for Mesh Fixation to No Mesh Fixation for Open Retromuscular Repairs SHOP LABORER: Sydney Hassan MD COORDINATOR/Research Nurse/Telecine Operator: Tiara Funes MD ? [email or web address] Consenting was performed by the attending surgeon, in a [id number] manner, during preoperative evaluation at the General Surgery clinic. The study protocol was discussed in detail with the patient. All study procedures were explained to the subject, including randomization, the two possible study interventions, and the postoperative pain management strategy for all patients participating in the study. Also, it was explained that pain scores and opioid use will be assessed daily during hospital stay. The importance of follow up compliance was stressed. The risks, benefits, alternatives to participation and potential costs were discussed. All patient questions were addressed and answered. Patient has read and understood the study procedures and requirements. Patient has agreed to proceed with trial participation and consent signed. Copy of the signed consent provided to the patient. INCLUSION CRITERIA Yes No 1. The patient is > 18 years of age [x] [] 2. The patient is fluent in Marshallese, has read the consent form and understood study procedures [x] [] 3. The patient is planned to undergo a ventral hernia repair through an OPEN APPROACH THROUGH A MIDLINE INCISION [x] [] 4. Ventral hernia repair is planned to be performed in an ELECTIVE setting [x] [] 5. RETROMUSCULAR mesh placement with or without posterior component separation is the planned technique for VHR [x] [] 6. The patient has a hernia that is currently classified a CLEAN wound [x] [] 7. The Patient is willing and able to give written informed consent [x] [] EXCLUSION CRITERIA Yes No 1. The subject is < 18 years of age [] [x] 2. The patient is not fluent in Marshallese or cannot read the consent form and/or understand study procedures [] [x] 3. Hernia width more than 20 cm [] [] 4. The patient has a parastomal hernia [] [x] 5. Ventral Hernia repair is planned to be performed through a MINIMALLY INVASIVE APPROACH (Laparoscopic, laparoscopic-assisted, robotic, robotic-assisted, etc.) [] [x] 6. Ventral Hernia repair will be performed in an EMERGENT setting (non-elective) [] [x] 7. Mesh placement is planned to be performed in a position other than retromuscular (i.e.: ONLAY, INTRAPERITONEAL, etc.) [] [x] Patient consented for study? Yes IRB NO.: #[id number] STUDY TITLE: Reducing INfection at the Surgical SitE with Antibiotic Irrigation during Ventral Hernia Repair (RINSE Trial) SHOP LABORER: Sydney Hassan MD COORDINATOR/Research Nurse/Telecine Operator: Tiara Funes MD ? [email or web address] Consenting was performed by the attending surgeon, in a [id number] manner, during preoperative evaluation at the General Surgery clinic. The study protocol was discussed in detail with the patient. All study procedures were explained to the subject, including randomization, the two possible study interventions, and the postoperative pain management strategy for all patients participating in the study. Also, it was explained that pain scores and opioid use will be assessed daily during hospital stay. The importance of follow up compliance was stressed. The risks, benefits, alternatives to participation and potential costs were discussed. All patient questions were addressed and answered. Patient has read and understood the study procedures and requirements. Patient has agreed to proceed with trial participation and consent signed. Copy of the signed consent provided to the patient. INCLUSION CRITERIA Yes No 1. The patient is > 18 years of age [x] [] 2. The patient is fluent in Marshallese, has read the consent form and understood study procedures [x] [] (more content not included)...[facility] NoteHNO ID: [id number] Author: Ronn Givens MD Service: ? Author Type: Resident Type: Progress Notes Filed: 06/28/2020 2:57 PM Note Text: General Surgery Clinic Note Service Date: June 27, 2020 Interval History: 05/2018 - seen in hernia clinic with 2 moderate sized incisional hernias with large rectus separation. Plan for TAR at that time. Seen in [facility] and case cancelled for active dental infection and pending a stress test. 09/2018 - seen by cardiology with no evidence of ischemia on nuc stress test, mild dilated LV with mild asymptomatic LV dysfunction but without other HF symptoms. No concerns for surgery. Today 06/27/20 - re-presents with stable incisional hernia, would like to have it repaired because of appearance more than bowel dysfunction or pain. He [place] which may complicate his recovery. Has had a recent abrasion on his LLE that is poorly healing, he has had these previously and sees a wound clinic previously with success. Physical Exam: BP 117/70 Pulse 70 Temp (Src) 96.9 (Temporal Artery) Resp 16 Ht 5' 7 (1.70m) Wt 205 lb (93.0kg) BMI 32.10 kg/(m2). 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 Planned for TAR 05/2018 but cancelled for dental infection and pending stress test. In interval seen by cards without concern. Here today to revisit TAR. - Encouraged wound clinic for LLE abrasion - Consented today, will need preop at [facility] and cards clearance - Plan for TAR - Enrolled in fixation and washout trials Ronn Givens MD, PhD Resident, PGY-1[facility] Future Appointments Appointment Date:06/19/2021 09:00:00 AM Scheduled Provider:Purnima Borden Location:FT.ONCOLOGY Appointment Type:ONC Office Visit 15 (FT) Appointment Date:06/23/2021 08:45:00 AM Scheduled Provider: Location:FT.CARDIO Appointment Type:Anticoagulation Follow Up 15 (FT) Future Scheduled Tests Laboratory* PT 03/07/21 * PT 04/04/21 * PT 05/02/21 * PT 05/30/21 * PT 06/27/21 * PT 07/25/21 * PT 08/22/21 * PT 09/19/21 * PT 10/17/21 * PT 11/14/21 * PT 12/12/21 * PT 01/09/22 * PT 02/06/22 * PT 03/06/22 [facility] Future [facility]ments Appointment Date:06/26/2021 09:30:00 AM Scheduled Provider:Purnima Borden Location:FT.ONCOLOGY Appointment Type:ONC Office Visit 15 (FT) Future Scheduled Tests Laboratory* PT 03/07/21 * PT 04/04/21 * PT 05/02/21 * PT 05/30/21 * PT 06/27/21 * PT 07/25/21 * PT 08/22/21 * PT 09/19/21 * PT 10/17/21 * PT 11/14/21 * PT 12/12/21 * PT 01/09/22 * PT 02/06/22 * PT 03/06/22 [facility] App[facility]ments Appointment Date:08/08/2021 08:30:00 AM Scheduled Provider: [facility] Type:Anticoagulation Follow Up 15 (FT) Appointment Date:08/28/2021 12:50:00 PM Scheduled Provider: Location:[facility] Appointment Type:Surgery FT Appointment Date:12/28/2021 01:00:00 PM Scheduled Provider:Dougie Harmon DO [facility] Type:ONC Office Visit 15 (FT) Future Scheduled Tests Laboratory* CBC w/ Auto Diff 12/27/21 * CEA 12/27/21 * Comprehensive Metabolic Panel 12/27/21 * PT 03/07/21 * PT 04/04/21 * PT 05/02/21 * PT 05/30/21 * PT 06/27/21 * PT 07/25/21 * PT 08/22/21 * PT 09/19/21 * PT 10/17/21 * PT 11/14/21 * PT 12/12/21 * PT 01/09/22 * PT 02/06/22 * PT 03/06/22 [facility] Evaluation + Plan note Future Appointments Appointment Date:11/24/2021 09:30:00 AM Scheduled Provider: Location:.CARDIO Appointment Type:Anticoagulation Follow Up 15 (FT) Appointment Date:12/28/2021 01:00:00 PM Scheduled Provider:Dougie Harmon DO Location:FT.ONCOLOGY Appointment Type:ONC Office Visit 15 (FT) Appointment Date:05/17/2022 08:00:00 AM Scheduled Provider:Yusra Denis CNP Location[place] Appointment Type:BAD Follow Up Future Scheduled Tests Laboratory* CBC w/ Auto Diff 12/27/21 * CEA 12/27/21 * Comprehensive Metabolic Panel 12/27/21 * PT 03/07/21 * PT 04/04/21 * PT 05/02/21 * PT 05/30/21 * PT 06/27/21 * PT 07/25/21 * PT 08/22/21 * PT 09/19/21 * PT 10/17/21 * PT 11/14/21 * PT 12/12/21 * PT 01/09/22 * PT 02/06/22 * PT 03/06/22 [facility] Evaluation + Plan note Future Appointments Appointment Date:12/28/2021 01:00:00 PM Scheduled Provider:Dougie Harmon DO Location:FTONCOLOGY Appointment Type:ONC Office Visit 15 (FT) Appointment Date:01/09/2022 09:00:00 AM Scheduled Provider: [facility]oint[facility] Type:Anticoagulation Follow Up 15 (FT) Appointment Date:05/17/2022 08:00:00 AM Scheduled Provider:Yusra Denis CNP Location:[facility] Appointment Type:[facility] Follow Up Future Scheduled Tests Laboratory* PT 03/07/21 * PT 04/04/21 * PT 05/02/21 * PT 05/30/21 * PT 06/27/21 * PT 07/25/21 * PT 08/22/21 * PT 09/19/21 * PT 10/17/21 * PT 11/14/21 * PT 12/12/21 * PT 01/09/22 * PT 02/06/22 * PT 03/06/22 [facility] Future App[facility]ments Appointment Date:01/09/2022 09:00:00 AM Scheduled Provider: [facility] Appoint[facility] Type:Anticoagulation Follow Up 15 (FT) Appointment Date:05/17/2022 08:00:00 AM Scheduled Provider:Yusra Denis CNP [place] Appointment Type:BADH Follow Up Appointment Date:06/27/2022 01:30:00 PM Scheduled Provider:Dougie Harmon DO Location:.ONCOLOGY Appointment Type:ONC Office Visit 15 (FT) Future Scheduled Tests Laboratory* PT 03/07/21 * PT 04/04/21 * PT 05/02/21 * PT 05/30/21 * PT 06/27/21 * PT 07/25/21 * PT 08/22/21 * PT 09/19/21 * PT 10/17/21 * PT 11/14/21 * PT 12/12/21 * PT 01/09/22 * PT 02/06/22 * PT 03/06/22 [facility] Future App[facility]ments Appointment Date:06/01/2022 09:30:00 AM Scheduled Provider: [facility]oint[facility] Type:Anticoagulation Follow Up 15 (FT) Appointment Date:06/15/2022 08:00:00 AM Scheduled Provider:Yusra Denis CNP Location[place] Appointment Type:BADH Follow Up Appointment Date:06/27/2022 02:00:00 PM Scheduled Provider:Dougie Harmon DO Location:.ONCOLOGY Appointment Type:ONC Office Visit 15 (FT) Future Scheduled Tests Laboratory* Basic Metabolic Panel 05/17/22 * CBC w/ Auto Diff 06/28/22 * CEA 06/28/22 * Comprehensive Metabolic Panel 06/28/22 * Magnesium Level 05/17/22 * PT 01/30/22 * PT 03/02/22 * PT 04/02/22 * PT 04/30/22 * PT 05/31/22 * PT 06/30/22 * PT 05/30/21 * PT 06/27/21 * PT 07/25/21 * PT 08/22/21 * PT 09/19/21 * PT 10/17/21 * PT 11/14/21 * PT 12/12/21 * PT 01/09/22 * PT 02/06/22 * PT 03/06/22 * Vitamin B12 Level 05/17/22 [facility] Evaluation + Plan note Future Appointments Appointment Date:06/27/2022 08:20:00 AM Scheduled Provider:Yusra Denis CNP Location:[facility] Appointment Type:BADH Follow Up Appointment Date:06/27/2022 02:00:00 PM Scheduled Provider:Dougie Harmon DO Location:FT.ONCOLOGY Appointment Type:ONC Office Visit 15 (FT) Appointment Date:07/10/2022 09:30:00 AM Scheduled Provider: Location:.CARDIO Appointment Type:Anticoagulation Follow Up 15 (FT) Future Scheduled Tests Laboratory* Basic Metabolic Panel 05/17/22 * CBC w/ Auto Diff 06/28/22 * CEA 06/28/22 * Comprehensive Metabolic Panel 06/28/22 * Magnesium Level 05/17/22 * PT 01/30/22 * PT 03/02/22 * PT 04/02/22 * PT 04/30/22 * PT 05/31/22 * PT 06/30/22 * PT 06/27/21 * PT 07/25/21 * PT 08/22/21 * PT 09/19/21 * PT 10/17/21 * PT 11/14/21 * PT 12/12/21 * PT 01/09/22 * PT 02/06/22 * PT 03/06/22 * Vitamin B12 Level 05/17/22 [facility] Hospital course Narrative No data available for this section [facility] No data available for this section [facility] No data available for this section [facility] Summary Purpose Family History No Family History Records FoundNo Family History Records FoundNo Family History Records FoundNo Family History Records Found No data available for this section No Family History Records FoundNo Family History Records Found Advance Directives No Advanced Directives Records FoundNo Advanced Directives Records FoundNo Advanced Directives Records FoundNo Advanced Directives Records FoundNo Advanced Directives Records FoundNo Advanced Directives Records Found Hospital Course Note [address] [place] [address] Discharge Summary Signed:[id number] Name: SHAD RODRIGUEZ MRUN: [id number] : 1950 Loc: 3S Age / Sex: 68/ M Adm Status: ADM Leonor Adm Date:06/03/19 Room/Bed: [facility] Date of Service - Date of Service Date: 06/05/19 - Time Spent on Discharge Minutes spent on discharge:: 45 - Hospital Summary Hospital Summary:: This is a pleasant 68-year-old male with a history of diabetes mellitus and colon cancer was brought into the emergency room by the banana loader for further evaluation and management of a syncopal event. Patient was in his usual state of health until this afternoon. 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 He was taking the exit to get to the Highway around 4:30 PM after exchanging the trailer with his colleague. He felt like his truck is spinning around. The next thing he knew was banana loader were knocking on the door. He was found slumped over on the steering wheel. He did not experience any chest pain, palpitations, focal (more content not included)... Additional Source Comments (unrecognized sect ion and content) No Status Records FoundNo Status Records FoundNo Status Records FoundNo Status Records FoundNo Status Records FoundNo Status Records Found INFORMATION SOURCE (unrecogn ized section and content) DATE CREATED AUTHOR 01/23/2018 [facility] DATE CREATED AUTHOR AUTHOR'S ORGANIZ ATION 04/12/2020 [facility] DATE CREATED AUTHOR AUTHOR'S ORGANIZ ATION 03/09/2021 [facility] DATE CREATED AUTHOR AUTHOR'S ORGANIZ ATION 12/23/2021 [facility] DATE CREATED AUTHOR AUTHOR'S ORGANIZ ATION 01/02/2023 [facility] DATE CREATED AUTHOR AUTHOR'S ORGANIZ ATION 01/25/2023 [facility] Care Team (unrecognized sect ion and content) Personnel Name: Shad Dyson MD Address: [address] [place] [address] Name: Josephine Zambrano MA Name: Aggie Colorado MA Personnel Name: Shad Dyson MD Address: Address: [address] [place] [address] Name: Josephine Zambrano MA Name: Aggie Colorado MA Personnel Name: Shad Dyson MD Address: Address: [address] [place] [address] Name: Josephine Zambrano MA Name: Aggie [place] MA Personnel Name: Shad Dyson MD Address: Address: [address] [place] [id number] Name: Josephine Zambrano MA R Name: EliezerAggie encarnacion MA Personnel Name: Shad Dyson MD Address: Address: [address] [place] [address] [id number] Name: Josephine Zambrano MA R Name: Aggie Colorado MA S Personnel Name: Shad Dyson MD Address: Address: [address] [place], [place] [address] Name: Josephine Zambrano MA R Name: Eliezeralysha BROOKLYNTomAggie S Personnel Name: Shad Dyson MD Address: Address: [address] [place], [place] [id number] Name: Josephine Zambrano MA R Name: Eliezeralysha BROOKLYNAggie Personnel Name: Shad Dyson MD Address: Address: [address] [place], [place] [address] Name: Josephine Zambrano MA Name: Aggie Colorado MA FOR RECORDS PERTAINING TO PATIENTS WHO ARE OR HAVE BEEN ENROLLED IN A CHEMICAL DEPENDENCY/SUBSTANCEABUSE PROGRAM, SOME INFORMATION MAY BE OMITTED. This clinical summary was aggregated from multiple sources. Caution should be exercised in using it in the provision of clinical care. This summary normalizes information from multiple sources, and as a consequence, information in this document may materially change the coding, format and clinical context of patient data. In addition, data may be omitted in some cases. CLINICAL DECISIONS SHOULD BE BASED ON THE PRIMARY CLINICAL RECORDS. [employer] [facility]. provides no warranty or guarantee of the accuracy or completeness of information in this document.
[2023-01-30 09:54] LABS: Anion Gap 7.9; BUN Creatinine Ratio 14.1; Calcium 9.3 mg/dL (8.5-10.1); Carbon Dioxide 31.6 mmol/L (21.0-32.0); Chloride 105 mmol/L (98-107); Estimated GFR (African America 51 (>=60); Estimated GFR (Non-African Ame 42 (>=60); Glucose 130 mg/dL (74-106); Potassium 4.5 mmol/L (3.5-5.1); Sodium 140 mmol/L (136-145)
== END 2023-01-30 08:44 | disposition home or self-care (01) ==
LOC: LAB 08:45
PROVIDERS: PCP Nurse Practitioner Family; Visit Provider Nurse Practitioner Family
DX: I50.22 Chronic systolic (congestive) heart failure (principal); Z51.81 Encounter for therapeutic drug level monitoring; Z79.01 Long term (current) use of 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; I48.20 Chronic atrial fibrillation, unspecified
CPT/HCPCS: 36415; 80048; 85610

== ENCOUNTER 2023-02-11 00:27 | Outpatient (RCR) | payer MEDICARE, OTHER, SELFPAY | END 2023-03-13 15:43 | disposition home or self-care (01) | LOC: MM 00:27 | PROVIDERS: PCP Nurse Practitioner Family; Visit Provider Internal Medicine | DX: Z51.81 Encounter for therapeutic drug level monitoring (principal); Z79.01 Long term (current) use of 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; I48.20 Chronic atrial fibrillation, unspecified ==

== ENCOUNTER 2023-03-14 00:40 | Outpatient (RCR) | payer MEDICARE, OTHER, SELFPAY | END 2023-04-11 17:06 | disposition home or self-care (01) | LOC: MM 00:40 | PROVIDERS: PCP Nurse Practitioner Family; Visit Provider Internal Medicine | DX: Z51.81 Encounter for therapeutic drug level monitoring (principal); Z79.01 Long term (current) use of 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; I48.20 Chronic atrial fibrillation, unspecified; R05.9 Cough, unspecified; R10.9 Unspecified abdominal pain | CPT/HCPCS: 76700; 85610; G0463 ==

== ENCOUNTER 2023-03-23 11:46 | Observation (INO) | payer MEDICARE, OTHER, SELFPAY ==
[2023-03-23] VITALS (40 sets, daily range): BP systolic 93–179; BP diastolic 49–91; PULSE 60–84; RESP 13–28; TEMP 36.4–36.6; O2SAT 92–99; BMI 30.1; BMI 30.5
--- OUTSIDE RECORDS SUMMARY | 2023-03-23 11:57 | XMS_ITS | CCD ---
Author Name Unknown Address [address] [place] [address] Organization [facility] Care Team Providers Care Policy Intern Name Role Phone DOMINGO SARAVIA Unavailable Unavailab [...] GANGWANI, ADRIANA SANTOS Referring Unavailab le TERENCE, ONRI Attending Unavailable GANGWANI, ADRIANA SANTOS Referring Unavailab [...] reactions to drug (disorder) 6 AOF, unknown [facility] Repository (5 sources) RAGWEED; 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: [RAGWEED] Propensity to adverse reactions to drug (disorder) 6 Dyspnea (finding) [facility] Repository (1 source) house dust allergenic extract; 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: [HOUSE DUST] Drug Allergy 3 [facility] Repository Medications Current Medications Medication Drug Class(es) Dates Sig (Normalized) Sig (Original) albuterol HFA 90 mcg/inh MDI (11 sources) Start: 05-13-2018 take 2 puff(s) by inhalation four times daily for wheezing albuterol HFA 90 mcg/inh MDI 2 puff(s), Inhalation, QID for wheezing, 6.7 gram, Refill(s) 0, [facility]/pharmacy #[id number] Start Date: 05/13/18 Status: Ordered amLODIPine 2.5 [...] BID, # 60 tab(s), Refills(s) 5, Pharmacy: [facility]/pharmacy #[id number] Start Date: 08/29/18 Status: Ordered atorvastatin 10 [...] 1 EA, Refill(s) 0, Prior to colonoscopy., [facility]/pharmacy #[id number], 167.6, cm, 07/19/21 8:57:00 EDT, Height/Length [...] Date: 05/12/18 Status: Ordered polyethylene glycol 3350 73745 mg powder for oral solution (8 sources) [...] day, # 21 tab(s), Refills(s) 0, Pharmacy: [facility]/pharmacy #[id number] Start Date: 05/13/18 Status: Ordered psyllium 525 mg oral capsule (3 sources) Start: 05-17-2022 End: 06-22-2023 take 5 capsules by mouth once daily Metamucil 525 mg oral capsule 2,625 mg = 5 cap(s), Oral, Daily, X 90 day(s), # 450 cap(s), Refills(s) 3, [id number], 167.6, cm, 06/27/22 8:28:00 EDT, Height/Length [...] results, # 90 tab(s), Refills(s) 0, [id number], 167.6, cm, 01/02/19 13:46:00 EST, Height/Length [...] disease (4 sources) Atherosclerotic heart disease of [place] coronary artery without angina pectoris; 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: [Coronary [...] sources) Long-term current use of anticoagulant; 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: [USP (current) use of 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] Episodic Other aftercare (2 sources) 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; 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: [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] Onset: 3 Episodic [...] Results Test Name Value Interpretation Reference Range Facility Follow-Upon 12-12-2022 Follow-Up Normal [facility] Documentationon 12-06-2022 Documentation Normal [facility] 30on 12-05-2022 30 Normal [facility] BASIC METABOLIC PANELon 11-12 Anion gap [Moles/Vol] 10 mmol/L Normal 7-20 [facility] Comment on above: Performed By: #### L [id number] ####[facility] ([facility])[address] [place] [address] Calcium [Mass/Vol] 9.3 mg/dL Normal 8.6-10.3 [facility] Comment on above: Performed By: #### L [id number] ####[facility] ([facility])[address] [place] [address] Chloride [Moles/Vol] 104 mmol/L Normal 98-107 [facility] Comment on above: Performed By: #### L [id number] ####[facility] ([facility])[address] [place] [address] CO2 [Moles/Vol] 24 mmol/L Normal 21-31 [facility] Comment on above: Performed By: #### L [id number] ####[facility] ([facility])[address] [place] [address] Creatinine [Mass/Vol] 1.20 mg/dL Normal 0.70-1.30 [facility] Comment on above: Performed By: #### L [id number] ####[facility] ([facility])[address] [place] [address] GLOMERULAR FILTRATION RATE ML/MIN/1.73 SQ M.PREDICTED 65.1 mL/min/1.73m*2 Normal >60.0 [facility] Comment on above: Result Comment: [facility]???s estimated glomerular filtration rate (eGFR) will [...] of individuals. Performed By: #### L [id number] ####[facility] ([facility] [place] [address] Glucose [Mass/Vol] 148 mg/dL High 70-100 [facility] Comment on above: Performed By: #### L [id number] ####[facility] ([facility] [place] [address] Potassium [Moles/Vol] 4.3 mmol/L Normal 3.5-5.1 [facility] Comment on above: Performed By: #### L [id number] ####[facility] ([facility] [place] [address] Sodium [Moles/Vol] 134 mmol/L Low 136-145 [facility] Comment on above: Performed By: #### L [id number] ####[facility] ([facility] [place] [address] Urea nitrogen [Mass/Vol] 28 mg/dL High 7-25 [facility] Comment on above: Performed By: #### L [id number] ####[facility] ([facility])[address] [place] [address] UREA NITROGEN/CREATININE (MASS RATIO) IN SER/PLAS 23.3 Normal [facility] Comment on above: Performed By: #### L [id number] ####[facility] ([facility])[address] [place] [address] CBCon 12-05-2022 Erythrocyte distribution width (RBC) [Ratio] 14.3 % Normal 11.5-15.0 [facility] Comment on above: Performed By: #### L [id number] ####[facility] ([facility])[address] [place] [address] ERYTHROCYTE MEAN CORPUSCULAR HEMOGLOBIN CONCENTRATION (G/DL) BY AUTOMATED 33.5 g/dL Normal 32.0-35.0 [facility] Comment on above: Performed By: #### L [id number] ####[facility] ([facility] [place] [address] Hematocrit (Bld) [Volume fraction] 39.4 % Normal 39.0-55.0 [facility] Comment on above: Performed By: #### L [id number] ####[facility] ([facility])[address] [place] [address] Hemoglobin (Bld) [Mass/Vol] 13.2 g/dL Normal 13.0-17.0 [facility] Comment on above: Performed By: #### L [id number] ####[facility] ([facility])[address] [address] IMMATURE PLATELET FRACTION % 2.2 % Normal 0.8-6.3 [facility] Comment on above: Performed By: #### L [id number] ####[facility] ([facility])[address] [place] [address] MCH (RBC) [Entitic mass] 29.7 pg Normal 27.0-33.0 [facility] Comment on above: Performed By: #### L [id number] ####[facility] ([facility])[address] [place] [address] MCV (RBC) [Entitic vol] 88.5 fL Normal 82.0-98.0 [facility] Comment on above: Performed By: #### L [id number] ####[facility] ([facility])[address] [place] [address] PLATELETS (10*3/UL) IN BLOOD AUTOMATED COUNT 132 10*3/uL Low 150-400 [facility] Comment on above: Performed By: #### L [id number] ####[facility] ([facility])[address] [place] [address] RBC (Bld) [#/Vol] 4.45 10*6/uL Normal 4.20-5.70 [facility] Comment on above: Performed By: #### L [id number] ####[facility] ([facility])[address] [address] WBC (Bld) [#/Vol] 6.95 10*3/uL Normal 4.00-10.60 [facility] Comment on above: Performed By: #### L [id number] ####[facility] ([facility] [facility] [address] DSon 12-05-2022 DS Normal [facility] POCT GLUCOSE METER UNSOLICIT ED RESULTSon 12-05-2022 Glucose [Mass/Vol] 147 mg/dL High 70-105 [facility] Comment on above: Order Comment: Waive d Testing in the ED is performed under the ED CLIA certificate #[id number]. Result Comment: [email or web address] Performed By: #### L [id number] ####[facility] ([facility])[address] [place] [address] Glucose [Mass/Vol] 185 mg/dL High 70-105 [facility] Comment on above: Order Comment: Waive d Testing in the ED is performed under the ED CLIA certificate #[id number]. Result Comment: [email or web address] Performed By: #### L [id number] ####[facility] ([facility])[address] [facility] [place] [address] Glucose [Mass/Vol] 153 mg/dL High 70-105 [facility] Comment on above: Order Comment: Waive d Testing in the ED is performed under the ED CLIA certificate #[id number]. Result Comment: [email or web address] Performed By: #### L [id number] ####[facility] ([facility])[address] [place] [address] 30on 12-04-2022 30 The patient is Moderately Stable - Low risk of patient condition declining or worsening The patient's goals for the shift include comfort The clinical goals for the shift include stable vitals Normal [facility] 30 Normal [facility] 30 The patient is Moderately Stable - Low risk of patient condition declining or worsening The patient's goals for the shift include Comfort The clinical goals for the shift include VSS Normal [facility] BASIC METABOLIC PANELon - Anion gap [Moles/Vol] 11 mmol/L Normal 7-20 [facility] Comment on above: Performed By: #### L [id number] ####[facility] ([facility] [place] [address] Calcium [Mass/Vol] 8.9 mg/dL Normal 8.6-10.3 [facility] Comment on above: Performed By: #### L [id number] ####[facility] ([facility] [place] [address] Chloride [Moles/Vol] 105 mmol/L Normal 98-107 [facility] Comment on above: Performed By: #### L [id number] ####[facility] ([facility])[address] [place] [address] CO2 [Moles/Vol] 23 mmol/L Normal 21-31 [facility] Comment on above: Performed By: #### L [id number] ####[facility] ([facility])[address] [place] [address] Creatinine [Mass/Vol] 1.32 mg/dL High 0.70-1.30 [facility] Comment on above: Performed By: #### L [id number] ####[facility] ([facility])[address] [place] [address] GLOMERULAR FILTRATION RATE ML/MIN/1.73 SQ M.PREDICTED 58.0 mL/min/1.73m*2 Low >60.0 [facility] Comment on above: Result Comment: [facility]???s estimated glomerular filtration rate (eGFR) will [...] of individuals. Performed By: #### L [id number] ####[facility] ([facility])[address] [place] [address] Glucose [Mass/Vol] 144 mg/dL High 70-100 [facility] Comment on above: Performed By: #### L [id number] ####[facility] ([facility]ER)[address] [place] [address] Potassium [Moles/Vol] 4.5 mmol/L Normal 3.5-5.1 [facility] Comment on above: Performed By: #### L [id number] ####[facility] (BEAKER)[address] [place] [address] Sodium [Moles/Vol] 134 mmol/L Low 136-145 [facility] Comment on above: Performed By: #### L [id number] ####[facility] (BEAKER)[address] [place] [address] Urea nitrogen [Mass/Vol] 37 mg/dL High 7-25 [facility] Comment on above: Performed By: #### L [id number] ####[facility] ([facility] [place] [address] UREA NITROGEN/CREATININE (MASS RATIO) IN SER/PLAS 28.0 Normal [facility] Comment on above: Performed By: #### L [id number] ####[facility] (BEAKER)[address] [place] [address] CBCon 12-04-2022 Erythrocyte distribution width (RBC) [Ratio] 14.9 % Normal 11.5-15.0 [facility] Comment on above: Performed By: #### L [id number] ####[facility] (BEAKER)[address] [place] [address] ERYTHROCYTE MEAN CORPUSCULAR HEMOGLOBIN CONCENTRATION (G/DL) BY AUTOMATED 32.6 g/dL Normal 32.0-35.0 [facility] Comment on above: Performed By: #### L [id number] ####[facility] (BEAKER)[address] [place] [address] Hematocrit (Bld) [Volume fraction] 39.0 % Normal 39.0-55.0 [facility] Comment on above: Performed By: #### L [id number] ####[facility] (BEAKER)[address] [place] [address] Hemoglobin (Bld) [Mass/Vol] 12.7 g/dL Low 13.0-17.0 [facility] Comment on above: Performed By: #### L [id number] ####[facility] ([facility])[address] [place] [address] IMMATURE PLATELET FRACTION % 3.8 % Normal 0.8-6.3 [facility] Comment on above: Performed By: #### L [id number] ####[facility] ([facility])[address] [place] [address] MCH (RBC) [Entitic mass] 29.6 pg Normal 27.0-33.0 [facility] Comment on above: Performed By: #### L [id number] ####[facility] ([facility])[address] [place] [address] MCV (RBC) [Entitic vol] 90.9 fL Normal 82.0-98.0 [facility] Comment on above: Performed By: #### L [id number] ####[facility] ([facility])[address] [place] [address] PLATELETS (10*3/UL) IN BLOOD AUTOMATED COUNT 130 10*3/uL Low 150-400 [facility] Comment on above: Performed By: #### L [id number] ####[facility] ([facility])[address] [place] [address] RBC (Bld) [#/Vol] 4.29 10*6/uL Normal 4.20-5.70 [facility] Comment on above: Performed By: #### L [id number] ####[facility] ([facility])[address] [place] [address] WBC (Bld) [#/Vol] 6.97 10*3/uL Normal 4.00-10.60 [facility] Comment on above: Performed By: #### L [id number] ####[facility] ([facility])[address] [place] [address] POCT GLUCOSE METER UNSOLICIT ED RESULTSon 10-24-2023 Glucose [Mass/Vol] 167 mg/dL High 70-105 [facility] Comment on above: Order Comment: Waive d Testing in the ED is performed under the ED CLIA certificate #[id number]. Result Comment: [email or web address] Performed By: #### L [id number] ####[facility] ([facility]ER)[address] [place] [address] Glucose [Mass/Vol] 105 mg/dL Normal 70-105 [facility] Comment on above: Order Comment: Waive d Testing in the ED is performed under the ED CLIA certificate #[id number]. Result Comment: dayval perryy Performed By: #### L [id number] ####[facility] (BE[facility]ER)[address] [place] [address] Glucose [Mass/Vol] 152 mg/dL High 70-105 [facility] Comment on above: Order Comment: Waive d Testing in the ED is performed under the ED CLIA certificate #[id number]. Result Comment: [email or web address] Performed By: #### L [id number] ####[facility] ([facility]ER)[address] [place] [address] 30on 12-03-2022 30 The patient is Moderately Stable - Low risk of patient condition declining or worsening The patient's goals for the shift include comfort The clinical goals for the shift include stable vitals Normal [facility] 30 The patient is Moderately Stable - Low risk of patient condition declining or worsening The patient's goals for the shift include Comfort The clinical goals for the shift include VSS Normal [facility] 30 Normal [facility] ANESon 12-03-2022 ANES Normal [facility] ANES Normal [facility] Anesthesiaon 12-03-2022 Anesthesia [id number] Shad Rodriguez 1950 M Date Provider Department Center 12/03/2022 YONATHAN [facility] No family history on file Normal [facility] BASIC METABOLIC PANELon 11-12 Anion gap [Moles/Vol] 12 mmol/L Normal 7-20 [facility] Comment on above: Performed By: #### L [id number] ####[facility] ([facility])[address] [place] [address] Calcium [Mass/Vol] 9.6 mg/dL Normal 8.6-10.3 [facility] Comment on above: Performed By: #### L [id number] ####[facility] ([facility])[address] [place] [address] Chloride [Moles/Vol] 101 mmol/L Normal 98-107 [facility] Comment on above: Performed By: #### L [id number] ####[facility] ([facility])[address] [place] [address] CO2 [Moles/Vol] 21 mmol/L Normal 21-31 [facility] Comment on above: Performed By: #### L [id number] ####[facility] ([facility])[address] [place] [address] Creatinine [Mass/Vol] 1.78 mg/dL High 0.70-1.30 [facility] Comment on above: Performed By: #### L [id number] ####[facility] ([facility])[address] [place] [address] GLOMERULAR FILTRATION RATE ML/MIN/1.73 SQ M.PREDICTED 40.5 mL/min/1.73m*2 Low >60.0 [facility] Comment on above: Result Comment: [facility]???s estimated glomerular filtration rate (eGFR) will [...] By: #### L [id number] ####[facility] (BEAKER)[address] [place] [address] Glucose [Mass/Vol] 194 mg/dL High 70-100 [facility] Comment on above: Performed By: #### L [id number] ####[facility] ([facility] [place] [address] Potassium [Moles/Vol] 4.3 mmol/L Normal 3.5-5.1 [facility] Comment on above: Performed By: #### L [id number] ####[facility] ([facility] [place] [address] Sodium [Moles/Vol] 130 mmol/L Low 136-145 [facility] Comment on above: Performed By: #### L [id number] ####[facility] ([facility] [place] [address] Urea nitrogen [Mass/Vol] 47 mg/dL High 7-25 [facility] Comment on above: Performed By: #### L [id number] ####[facility] ([facility])[address] [place] [address] UREA NITROGEN/CREATININE (MASS RATIO) IN SER/PLAS 26.4 Normal [facility] Comment on above: Performed By: #### L [id number] ####[facility] ([facility] [place] [address] CBCon 12-03-2022 Erythrocyte distribution width (RBC) [Ratio] 14.9 % Normal 11.5-15.0 [facility] Comment on above: Performed By: #### L [id number] ####[facility] ([facility] [place] [address] ERYTHROCYTE MEAN CORPUSCULAR HEMOGLOBIN CONCENTRATION (G/DL) BY AUTOMATED 32.9 g/dL Normal 32.0-35.0 [facility] Comment on above: Performed By: #### L [id number] ####[facility] (BEAKER)[address] [place] [address] Hematocrit (Bld) [Volume fraction] 41.0 % Normal 39.0-55.0 [facility] Comment on above: Performed By: #### L [id number] ####[facility] ([facility])[address] [place] [address] Hemoglobin (Bld) [Mass/Vol] 13.5 g/dL Normal 13.0-17.0 [facility] Comment on above: Performed By: #### L [id number] ####[facility] ([facility])[address] [address] MCH (RBC) [Entitic mass] 29.3 pg Normal 27.0-33.0 [facility] Comment on above: Performed By: #### L [id number] ####[facility] ([facility])[address] [address] MCV (RBC) [Entitic vol] 89.1 fL Normal 82.0-98.0 [facility] Comment on above: Performed By: #### L [id number] ####[facility] ([facility])[address] [place] [address] PLATELETS (10*3/UL) IN BLOOD AUTOMATED COUNT 134 10*3/uL Low 150-400 [facility] Comment on above: Performed By: #### L [id number] ####[facility] ([facility])[address] [address] RBC (Bld) [#/Vol] 4.60 10*6/uL Normal 4.20-5.70 [facility] Comment on above: Performed By: #### L [id number] ####[facility] ([facility])[address] [place] [address] WBC (Bld) [#/Vol] 10.62 10*3/uL High 4.00-10.60 [facility] Comment on above: Performed By: #### L [id number] ####[facility] ([facility] [place] [address] CONSULTon 12-03-2022 CONSULT Normal [facility] HPon 12-03-2022 HP [facility] HP [facility] NURSNOTEon 12-03-2022 NURSNOTE Report called to Shalini RN 3AB Amy Valiente CRYPTOZOOLOGIST [facility] POCT GLUCOSE METER UNSOLICIT ED RESULTSon 12-03-2022 Glucose [Mass/Vol] 147 mg/dL High 70-105 [facility] Comment on above: Order Comment: Waive d Testing in the ED is performed under the ED CLIA certificate #[id number]. Result Comment: [email or web address] Performed By: #### L [id number] ####[facility] ([employer])[address] [place] [address] Glucose [Mass/Vol] 148 mg/dL High 70-105 [facility] Comment on above: Order Comment: Waive d Testing in the ED is performed under the ED CLIA certificate #[id number]. Result Comment: [email or web address] nila Performed By: #### L [id number] ####[facility] ([employer])[address] [place] [address] Glucose [Mass/Vol] 165 mg/dL High 70-105 [facility] Comment on above: Order Comment: Waive d Testing in the ED is performed under the ED CLIA certificate #[id number]. Result Comment: mary [email or web address] Performed By: #### L [id number] ####[facility] ([employer])[address] [place] [address] Glucose [Mass/Vol] 158 mg/dL High 70-105 [facility] Comment on above: Order Comment: Waive d Testing in the ED is performed under the ED CLIA certificate #[id number]. Result Comment: [email or web address] Performed By: #### L [id number] ####[facility] ([employer])[address] [place] [address] TYPE AND SCREENon 12-03-2022 AB SCREEN Negative [facility] Comment on above: Performed By: #### L [id number] ####[facility], ABO group Nom (Bld) AB [facility] Comment on above: Performed By: #### L [id number] ####[facility], RH TYPE IN BLOOD Positive Normal [facility] Comment on above: Performed By: #### L [id number] ####[facility], 30on 12-02-2022 30 Normal [facility] BASIC METABOLIC PANELon 11-12 Anion gap [Moles/Vol] 11 mmol/L Normal 7-20 [facility] Comment on above: Performed By: #### L [id number] ####[facility] (BEAKER)[address] [place] [address] Calcium [Mass/Vol] 9.6 mg/dL Normal 8.6-10.3 [facility] Comment on above: Performed By: #### L [id number] ####[facility] (BEAKER)[address] [place] [address] Chloride [Moles/Vol] 103 mmol/L Normal 98-107 [facility] Comment on above: Performed By: #### L [id number] ####[facility] (BEAKER)[address] [place] [address] CO2 [Moles/Vol] 22 mmol/L Normal 21-31 [facility] Comment on above: Performed By: #### L [id number] ####[facility] (BEAKER)[address] [place] [address] Creatinine [Mass/Vol] 1.73 mg/dL High 0.70-1.30 [facility] Comment on above: Performed By: #### L [id number] ####[facility] (BEAKER)[address] [place] [address] GLOMERULAR FILTRATION RATE ML/MIN/1.73 SQ M.PREDICTED 41.9 mL/min/1.73m*2 Low >60.0 [facility] [facility] Comment on above: Result Comment: [facility]???s estimated glomerular filtration rate (eGFR) will [...] of individuals. Performed By: #### L [id number] ####[facility] ([facility])[address] [place] [address] Glucose [Mass/Vol] 168 mg/dL High 70-100 [facility] Comment on above: Performed By: #### L [id number] ####[facility] ([facility])[address] [place] [address] Potassium [Moles/Vol] 4.3 mmol/L Normal 3.5-5.1 [facility] Comment on above: Performed By: #### L [id number] ####[facility] ([facility])[address] [place] [address] Sodium [Moles/Vol] 132 mmol/L Low 136-145 [facility] Comment on above: Performed By: #### L [id number] ####[facility] ([facility])[address] [place] [address] Urea nitrogen [Mass/Vol] 42 mg/dL High 7-25 [facility] Comment on above: Performed By: #### L [id number] ####[facility] ([facility])[address] [place] [address] UREA NITROGEN/CREATININE (MASS RATIO) IN SER/PLAS 24.3 Normal [facility] Comment on above: Performed By: #### L [id number] ####[facility] ([facility])[address] [place] [address] CBCon 12-02-2022 Erythrocyte distribution width (RBC) [Ratio] 15.0 % Normal 11.5-15.0 [facility] Comment on above: Performed By: #### L [id number] ####[facility] ([facility])[address] [place] [address] ERYTHROCYTE MEAN CORPUSCULAR HEMOGLOBIN CONCENTRATION (G/DL) BY AUTOMATED 32.8 g/dL Normal 32.0-35.0 [facility] Comment on above: Performed By: #### L [id number] ####[facility] ([facility])[address] [address] Hematocrit (Bld) [Volume fraction] 40.0 % Normal 39.0-55.0 [facility] Comment on above: Performed By: #### L [id number] ####[facility] ([facility])[address] [place] [address] Hemoglobin (Bld) [Mass/Vol] 13.1 g/dL Normal 13.0-17.0 [facility] Comment on above: Result Comment: Resu lts checked Performed By: #### L [id number] ####[facility] [place] [address] MCH (RBC) [Entitic mass] 29.0 pg Normal 27.0-33.0 [facility] Comment on above: Performed By: #### L [id number] ####[facility] ([facility])[address] [place] [address] MCV (RBC) [Entitic vol] 88.7 fL Normal 82.0-98.0 [facility] Comment on above: Performed By: #### L [id number] ####[facility] ([facility])[address] [place] [address] PLATELETS (10*3/UL) IN BLOOD AUTOMATED COUNT 129 10*3/uL Low 150-400 [facility] Comment on above: Performed By: #### L [id number] ####[facility] ([facility])[address] [place] [address] RBC (Bld) [#/Vol] 4.51 10*6/uL Normal 4.20-5.70 [facility] Comment on above: Performed By: #### L [id number] ####[facility] (BEAK[facility])[address] [place] [address] WBC (Bld) [#/Vol] 13.62 10*3/uL High 4.00-10.60 [facility] Comment on above: Performed By: #### L [id number] ####[facility] ([facility] [place] [address] POCT GLUCOSE METER UNSOLICIT ED RESULTSon 12-02-2022 Glucose [Mass/Vol] 208 mg/dL High 70-105 [facility] Comment on above: Order Comment: Waive d Testing in the ED is performed under the ED CLIA certificate #[id number]. Result Comment: [email or web address] Performed By: #### L [id number] ####[facility] ([facility])[address] [place] [address] Glucose [Mass/Vol] 224 mg/dL High 70-105 [facility] Comment on above: Order Comment: Waive d Testing in the ED is performed under the ED CLIA certificate #[id number]. Result Comment: [email or web address] Performed By: #### L [id number] ####[facility] ([facility])[address] [place] [address] Glucose [Mass/Vol] 173 mg/dL High 70-105 [facility] Comment on above: Order Comment: Waive d Testing in the ED is performed under the ED CLIA certificate #[id number]. Result Comment: [email or web address] Performed By: #### L [id number] ####[facility] ([facility])[address] [place] [address] Glucose [Mass/Vol] 135 mg/dL High 70-105 [facility] Comment on above: Order Comment: Waive d Testing in the ED is performed under the ED CLIA certificate #[id number]. Result Comment: [email or web address] Performed By: #### L [id number] ####[facility] ([facility])[address] [place] [address] 30on 12-01-2022 30 Normal [facility] APTTon 12-01-2022 ACTIVATED PARTIAL THROMBOPLASTIN TIME IN PPP BY COAGULATION ASSAY 28.0 Seconds Normal 25.0-35.0 [facility] Comment on above: Result Comment: Clin ical significance of the APTT is questionable in the presence of heparin. Performed By: #### L [id number] ####[facility] ([facility])[address] [place] [address] BASIC METABOLIC PANELon 10-2 Anion gap [Moles/Vol] 16 mmol/L Normal 7-20 [facility] Comment on above: Performed By: #### L [id number] ####[facility] ([facility] [place] [address] Calcium [Mass/Vol] 10.4 mg/dL High 8.6-10.3 [facility] Comment on above: Performed By: #### L [id number] ####[facility] ([facility])[address] [place] [address] Chloride [Moles/Vol] 101 mmol/L Normal 98-107 [facility] Comment on above: Performed By: #### L [id number] ####[facility] ([facility])[address] [place] [address] CO2 [Moles/Vol] 21 mmol/L Normal 21-31 [facility] Comment on above: Performed By: #### L [id number] ####[facility] ([facility]ER)[address] [place] [address] Creatinine [Mass/Vol] 1.78 mg/dL High 0.70-1.30 [facility] Comment on above: Performed By: #### L [id number] ####[facility] ([facility])[address] [place] [address] GLOMERULAR FILTRATION RATE ML/MIN/1.73 SQ M.PREDICTED 40.5 mL/min/1.73m*2 Low >60.0 [facility] Comment on above: Result Comment: [facility]???s estimated glomerular filtration rate (eGFR) will [...] of individuals. Performed By: #### L [id number] ####[facility] ([facility])[address] [place] [address] Glucose [Mass/Vol] 260 mg/dL High 70-100 [facility] Comment on above: Performed By: #### L [id number] ####[facility] ([facility])[address] [place] [address] Potassium [Moles/Vol] 5.0 mmol/L Normal 3.5-5.1 [facility] Comment on above: Performed By: #### L [id number] ####[facility] ([facility])[address] [place] [address] Sodium [Moles/Vol] 133 mmol/L Low 136-145 [facility] Comment on above: Performed By: #### L [id number] ####[facility] ([facility])[address] [place] [address] Urea nitrogen [Mass/Vol] 32 mg/dL High 7-25 [facility] Comment on above: Performed By: #### L [id number] ####[facility] ([facility])[address] [place] [address] UREA NITROGEN/CREATININE (MASS RATIO) IN SER/PLAS 18.0 Normal [facility] Comment on above: Performed By: #### L [id number] ####[facility] ([facility])[address] [place] [address] CBCon 12-01-2022 Erythrocyte distribution width (RBC) [Ratio] 14.7 % Normal 11.5-15.0 [facility] Comment on above: Performed By: #### L [id number] ####[facility] ([facility])[address] [place] [address] ERYTHROCYTE MEAN CORPUSCULAR HEMOGLOBIN CONCENTRATION (G/DL) BY AUTOMATED 33.0 g/dL Normal 32.0-35.0 [facility] Comment on above: Performed By: #### L [id number] ####[facility] ([facility]AKER)[address] [address] Hematocrit (Bld) [Volume fraction] 46.6 % Normal 39.0-55.0 [facility] Comment on above: Performed By: #### L [id number] ####[facility] (BEAKER)[address] [place] [address] Hemoglobin (Bld) [Mass/Vol] 15.4 g/dL Normal 13.0-17.0 [facility] Comment on above: Performed By: #### L [id number] ####[facility] ([facility])[address] [place] [address] MCH (RBC) [Entitic mass] 29.3 pg Normal 27.0-33.0 [facility] Comment on above: Performed By: #### L [id number] ####[facility] ([facility])[address] [place] [address] MCV (RBC) [Entitic vol] 88.8 fL Normal 82.0-98.0 [facility] Comment on above: Performed By: #### L [id number] ####[facility] ([facility])[address] [place] [address] PLATELETS (10*3/UL) IN BLOOD AUTOMATED COUNT 181 10*3/uL Normal 150-400 [facility] Comment on above: Performed By: #### L [id number] ####[facility] (BE[facility]ER)[address] [place] [address] RBC (Bld) [#/Vol] 5.25 10*6/uL Normal 4.20-5.70 [facility] Comment on above: Performed By: #### L [id number] ####[facility] (BEAKER)[address] [place] [address] WBC (Bld) [#/Vol] 23.51 10*3/uL High 4.00-10.60 [facility] Comment on above: Performed By: #### L [id number] ####[facility] ([facility])[address] [facility] [address] NURSNOTEon 12-01-2022 NURSNOTE Normal [facility] POCT GLUCOSE METER UNSOLICIT ED RESULTSon 12-01-2022 Glucose [Mass/Vol] 204 mg/dL High 70-105 [facility] Comment on above: Order Comment: Waive d Testing in the ED is performed under the ED CLIA certificate #[id number]. Result Comment: [email or web address] Performed By: #### L [id number] ####[facility] ([facility])[address] [place] [address] Glucose [Mass/Vol] 248 mg/dL High 70-105 [facility] Comment on above: Order Comment: Waive d Testing in the ED is performed under the ED CLIA certificate #[id number]. Result Comment: [email or web address] Performed By: #### L [id number] ####[facility] ([facility])[address] [place] [address] Glucose [Mass/Vol] 270 mg/dL High 70-105 [facility] Comment on above: Order Comment: Waive d Testing in the ED is performed under the ED CLIA certificate #[id number]. Result Comment: [email or web address] Performed By: #### L [id number] ####[facility] ([facility])[address] [place] [address] PROTIME-INRon 12-01-2022 INR IN PPP BY COAGULATION ASSAY 1.21 High 0.90-1.10 [facility] Comment on above: Result Comment: ACCC P RECOMMENDED INR FOR WARFARIN THERAPY CONDITION INRPROPHYLAXIS OF VENOUS THROMBOSIS 2-3(HIGH-RISK SURGERY)TREATMENT OF VENOUS THROMBOSIS 2-3TREATMENT OF PULMONARY EMBOLISM 2-3PREVENTION OF SYSTEMIC EMBOLISM: 2-3 ACUTE MYOCARDIAL INFARCTION TISSUE HEART VALVES VALVULAR HEART DISEASE ATRIAL FIBRILLATION RECURRENT SYSTEMIC EMBOLISMMECHANICAL HEART VALVE 2.5-3.5 FROM: ORAL ANTICOAGULANTS. MECHANISM OF ACTION, CLINICAL EFFECTIVENESS, AND OPTIMAL THERAPEUTIC RANGE. CHEST 1995;108:231S-246S. Performed By: #### L [id number] ####[facility] ([employer])[address] [place] [address] PROTHROMBIN TIME (PT) IN PPP BY COAGULATION ASSAY 15.3 Seconds High 12.3-14.8 [facility] Comment on above: Performed By: #### L [id number] ####[facility] ([employer])[address] [place] [address] 30on 11-30-2022 30 Normal [facility] 30 Normal [facility] BASIC METABOLIC PANELon 11-12 Anion gap [Moles/Vol] 10 mmol/L Normal 7-20 [facility] Comment on above: Performed By: #### L [id number] ####[facility] ([employer])[address] [place] [address] Calcium [Mass/Vol] 7.1 mg/dL Low 8.6-10.3 [facility] Comment on above: Performed By: #### L [id number] ####[facility] ([facility])[address] [facility] [place] [address] Chloride [Moles/Vol] 110 mmol/L High 98-107 [facility] Comment on above: Performed By: #### L [id number] ####[facility] ([employer])[address] [place] [address] CO2 [Moles/Vol] 22 mmol/L Normal 21-31 [facility] Comment on above: Performed By: #### L [id number] ####[facility] ([facility])[address] [place] [address] Creatinine [Mass/Vol] 1.25 mg/dL Normal 0.70-1.30 [facility] Comment on above: Performed By: #### L [id number] ####[facility] ([facility])[address] [place] [address] GLOMERULAR FILTRATION RATE ML/MIN/1.73 SQ M.PREDICTED 61.9 mL/min/1.73m*2 Normal >60.0 [facility] Comment on above: Result Comment: [facility]???s estimated glomerular filtration rate (eGFR) will [...] of individuals. Performed By: #### L [id number] ####[facility] ([facility])[address] [place] [address] Glucose [Mass/Vol] 211 mg/dL High 70-100 [facility] Comment on above: Performed By: #### L [id number] ####[facility] ([facility])[address] [place] [address] Potassium [Moles/Vol] 3.6 mmol/L Normal 3.5-5.1 [facility] Comment on above: Performed By: #### L [id number] ####[facility] ([facility])[address] [facility] [place] [address] Sodium [Moles/Vol] 138 mmol/L Normal 136-145 [facility] Comment on above: Performed By: #### L [id number] ####[facility] ([facility]ER)[address] [place] [address] Urea nitrogen [Mass/Vol] 17 mg/dL Normal 7-25 [facility] Comment on above: Performed By: #### L [id number] ####[facility] (BEAKER)[address] [place] [address] UREA NITROGEN/CREATININE (MASS RATIO) IN SER/PLAS 13.6 Normal [facility] Comment on above: Performed By: #### L [id number] ####[facility] (BEAKER)[address] [place] [address] Anion gap [Moles/Vol] 10 mmol/L Normal 7-20 [facility] Comment on above: Performed By: #### L [id number] ####[facility] (BE[facility]ER)[address] [place] [address] Calcium [Mass/Vol] 9.5 mg/dL Normal 8.6-10.3 [facility] Comment on above: Performed By: #### L [id number] ####[facility] (BE[facility]ER)[address] [place] [address] Chloride [Moles/Vol] 102 mmol/L Normal 98-107 [facility] Comment on above: Performed By: #### L [id number] ####[facility] (BE[facility]ER)[address] [place] [address] CO2 [Moles/Vol] 27 mmol/L Normal 21-31 [facility] Comment on above: Performed By: #### L [id number] ####[facility] (BE[facility]ER)[address] [place] [address] Creatinine [Mass/Vol] 1.39 mg/dL High 0.70-1.30 [facility] Comment on above: Performed By: #### L [id number] ####[facility] (BE[facility]ER)[address] [place] [address] GLOMERULAR FILTRATION RATE ML/MIN/1.73 SQ M.PREDICTED 54.5 mL/min/1.73m*2 Low >60.0 [facility] Comment on above: Result Comment: [facility]???s estimated glomerular filtration rate (eGFR) will [...] of individuals. Performed By: #### L [id number] ####[facility] ([facility]ER)[address] [place] [address] Glucose [Mass/Vol] 171 mg/dL High 70-100 [facility] Comment on above: Performed By: #### L [id number] ####[facility] (BE[facility]ER)[address] [place] [address] Potassium [Moles/Vol] 4.0 mmol/L Normal 3.5-5.1 [facility] Comment on above: Performed By: #### L [id number] ####[facility] ([facility]ER)[address] [place] [address] Sodium [Moles/Vol] 135 mmol/L Low 136-145 [facility] Comment on above: Performed By: #### L [id number] ####[facility] ([facility]ER)[address] [place] [address] Urea nitrogen [Mass/Vol] 20 mg/dL Normal 7-25 [facility] Comment on above: Performed By: #### L [id number] ####[facility] (BEAKER)[address] [place] [address] UREA NITROGEN/CREATININE (MASS RATIO) IN SER/PLAS 14.4 Normal [facility] Comment on above: Performed By: #### L [id number] ####[facility] (BEAKER)[address] [place] [address] CBCon 11-30-2022 Erythrocyte distribution width (RBC) [Ratio] 14.2 % Normal 11.5-15.0 [facility] Comment on above: Performed By: #### L [id number] ####[facility] (BEAKER)[address] [place] [address] ERYTHROCYTE MEAN CORPUSCULAR HEMOGLOBIN CONCENTRATION (G/DL) BY AUTOMATED 33.3 g/dL Normal 32.0-35.0 [facility] Comment on above: Performed By: #### L [id number] ####[facility] [place] [address] Hematocrit (Bld) [Volume fraction] 41.7 % Normal 39.0-55.0 [facility] Comment on above: Performed By: #### L [id number] ####[facility] ([facility] [place] [address] Hemoglobin (Bld) [Mass/Vol] 13.9 g/dL Normal 13.0-17.0 [facility] Comment on above: Performed By: #### L [id number] ####[facility] ([facility] [place] [address] MCH (RBC) [Entitic mass] 29.5 pg Normal 27.0-33.0 [facility] Comment on above: Performed By: #### L [id number] ####[facility] (BEAKER)[address] [place] [address] MCV (RBC) [Entitic vol] 88.5 fL Normal 82.0-98.0 [facility] Comment on above: Performed By: #### L [id number] ####[facility] (BEAKER)[address] [place] [address] PLATELETS (10*3/UL) IN BLOOD AUTOMATED COUNT 183 10*3/uL Normal 150-400 [facility] Comment on above: Performed By: #### L [id number] ####[facility] (BEAKER)[address] [place] [address] RBC (Bld) [#/Vol] 4.71 10*6/uL Normal 4.20-5.70 [facility] Comment on above: Performed By: #### L [id number] ####[facility] ([facility])[address] [place] [address] WBC (Bld) [#/Vol] 8.24 10*3/uL Normal 4.00-10.60 [facility] Comment on above: Performed By: #### L [id number] ####[facility] (BEAKER)[address] [place] [address] CBC WITH AUTO DIFFERENTIALon 11-30-2022 Basophils (Bld) [#/Vol] 0.02 10*3/uL Normal 0.00-0.20 [facility] Comment on above: Performed By: #### L [id number] ####[facility] (BEAKER)[address] [place] [address] Basophils/100 WBC (Bld) 0.2 % Normal 0.0-1.0 [facility] Comment on above: Performed By: #### L [id number] ####[facility] (BEAKER)[address] [place] [address] Eosinophils (Bld) [#/Vol] 0.11 10*3/uL Normal 0.00-0.50 [facility] Comment on above: Performed By: #### L [id number] ####[facility] (BEAKER)[address] [place] [address] Eosinophils/100 WBC (Bld) 1.2 % Normal 0.0-6.0 [facility] Comment on above: Performed By: #### L [id number] ####[facility] (BEAKER)[address] [place] [address] Erythrocyte distribution width (RBC) [Ratio] 14.5 % Normal 11.5-15.0 [facility] Comment on above: Performed By: #### L [id number] ####[facility] (BEAKER)[address] [place] [address] ERYTHROCYTE MEAN CORPUSCULAR HEMOGLOBIN CONCENTRATION (G/DL) BY AUTOMATED 33.1 g/dL Normal 32.0-35.0 [facility] Comment on above: Performed By: #### L [id number] ####[facility] (BEAKER)[address] [place] [address] Hematocrit (Bld) [Volume fraction] 37.2 % Low 39.0-55.0 [facility] Comment on above: Performed By: #### L [id number] ####[facility] ([facility])[address] [place] [address] Hemoglobin (Bld) [Mass/Vol] 12.3 g/dL Low 13.0-17.0 [facility] Comment on above: Performed By: #### L [id number] ####[facility] ([facility])[address] [place] [address] Immature granulocytes (Bld) [#/Vol] 0.06 10*3/uL Normal 0.00-0.20 [facility] Comment on above: Performed By: #### L [id number] ####[facility] ([facility])[address] [place] [address] Immature granulocytes/100 WBC (Bld) 0.6 % Normal 0.0-1.0 [facility] Comment on above: Performed By: #### L [id number] ####[facility] ([facility] [place] [address] Lymphocytes (Bld) [#/Vol] 0.97 10*3/uL Low 1.20-4.00 [facility] Comment on above: Performed By: #### L [id number] ####[facility] ([facility] [place] [address] Lymphocytes/100 WBC (Bld) 10.3 % Low 20.0-45.0 [facility] Comment on above: Performed By: #### L [id number] ####[facility] (BEAKER)[address] [place] [address] MCH (RBC) [Entitic mass] 29.5 pg Normal 27.0-33.0 [facility] Comment on above: Performed By: #### L [id number] ####[facility] (BEAKER)[address] [place] [address] MCV (RBC) [Entitic vol] 89.2 fL Normal 82.0-98.0 [facility] Comment on above: Performed By: #### L [id number] ####[facility] (BEAKER)[address] [place] [address] Monocytes (Bld) [#/Vol] 0.78 10*3/uL Normal 0.10-1.00 [facility] Comment on above: Performed By: #### L [id number] ####[facility] (BEAKER)[address] [place] [address] Monocytes/100 WBC (Bld) 8.3 % Normal 5.0-12.0 [facility] Comment on above: Performed By: #### L [id number] ####[facility] (BEAKER)[address] [place] [address] Neutrophils (Bld) [#/Vol] 7.48 10*3/uL Normal 1.60-7.60 [facility] Comment on above: Performed By: #### L [id number] ####[facility] (BEAKER)[address] [place] [address] Neutrophils/100 WBC (Bld) 79.4 % High 40.0-72.0 [facility] Comment on above: Performed By: #### L [id number] ####[facility] (BEAKER)[address] [place] [address] NRBC (PER 100 WBCS) BY AUTOMATED COUNT 0.0 % Normal 0 [facility] Comment on above: Performed By: #### L [id number] ####[facility] (BEAKER)[address] [place] [address] PLATELETS (10*3/UL) IN BLOOD AUTOMATED COUNT 172 10*3/uL Normal 150-400 [facility] Comment on above: Performed By: #### L [id number] ####[facility] (BEAKER)[address] [place] [address] RBC (Bld) [#/Vol] 4.17 10*6/uL Low 4.20-5.70 [facility] Comment on above: Performed By: #### L [id number] ####[facility] ([facility])[address] [place] [address] WBC (Bld) [#/Vol] 9.42 10*3/uL Normal 4.00-10.60 [facility] Comment on above: Performed By: #### L [id number] ####[facility] ([facility])[address] [place] [address] CTA ABDOMEN PELVIS W AND/OR WO IV CONTRASTon 11-30-2022 CTA ABDOMEN PELVIS W AND/OR WO IV CONTRAST Normal [facility] CTA CHEST W AND/OR WO IV CON TRASTon 11-30-2022 CTA CHEST W AND/OR WO IV CONTRAST Normal [facility] DSon 11-30-2022 DS This report has been cancelled. Normal [facility] NURSNOTEon 11-30-2022 NURSNOTE [facility] NURSNOTE [facility] POCT GLUCOSE METER UNSOLICIT ED RESULTSon 11-30-2022 Glucose [Mass/Vol] 228 mg/dL High 70-105 [facility] Comment on above: Order Comment: Waive d Testing in the ED is performed under the ED CLIA certificate #[id number]. Result Comment: [email or web address] Performed By: #### L [id number] ####[facility] ([facility])[address] [facility] [place] [address] Glucose [Mass/Vol] 228 mg/dL High 70-105 [facility] Comment on above: Order Comment: Waive d Testing in the ED is performed under the ED CLIA certificate #[id number]. Result Comment: [email or web address] Performed By: #### L [id number] ####[facility] ([facility])[address] [place] [address] Glucose [Mass/Vol] 219 mg/dL High 70-105 [facility] Comment on above: Order Comment: Waive d Testing in the ED is performed under the ED CLIA certificate #[id number]. Result Comment: [email or web address] Performed By: #### L [id number] ####[facility] ([facility])[address] [place] [address] Glucose [Mass/Vol] 186 mg/dL High 70-105 [facility] Comment on above: Order Comment: Waive d Testing in the ED is performed under the ED CLIA certificate #[id number]. Result Comment: [email or web address] Performed By: #### L [id number] ####[facility] ([facility])[address] [place] [address] Glucose [Mass/Vol] 217 mg/dL High 70-105 [facility] Comment on above: Order Comment: Waive d Testing in the ED is performed under the ED CLIA certificate #[id number]. Result Comment: [email or web address] Performed By: #### L [id number] ####[facility] ([facility])[address] [place] [address] Glucose [Mass/Vol] 175 mg/dL High 70-105 [facility] Comment on above: Order Comment: Waive d Testing in the ED is performed under the ED CLIA certificate #[id number]. Result Comment: [email or web address] Performed By: #### L [id number] ####[facility] ([facility])[address] [place] [address] TROPONIN Ion 11-30-2022 Troponin I.cardiac [Mass/Vol] 0.05 ng/mL High 0.00-0.04 [facility] Comment on above: Performed By: #### L [id number] ####[facility] ([facility])[address] [place] [address] 30on 11-29-2022 30 Normal [facility] 30 [facility] 30 [facility] ANESon 11-29-2022 ANES [facility] ANTI-XA (HEPARIN LEVEL)on HEPARIN UNFRACTIONATED (U/ML) IN PPP BY CHROMOGENIC METHOD 0.42 IU/mL Normal 0.3-0.7 [facility] Comment on above: Result Comment: [place] roxaban and Apixaban will interfere with the anti Xa assay used to monitor UFH and LMWH. Performed By: #### L [id number] ####[facility] ([facility])[address] [place] [address] HEPARIN UNFRACTIONATED (U/ML) IN PPP BY CHROMOGENIC METHOD 0.74 IU/mL High 0.3-0.7 [facility] Comment on above: Result Comment: [place] roxaban and Apixaban will interfere with the anti Xa assay used to monitor UFH and LMWH. Performed By: #### L [id number] ####[facility] ([facility])[address] [place] [address] BASIC METABOLIC PANELon 11-11 Anion gap [Moles/Vol] 9 mmol/L Normal 7-20 [facility] Comment on above: Performed By: #### L [id number] ####[facility] ([facility])[address] [place] [address] Calcium [Mass/Vol] 9.5 mg/dL Normal 8.6-10.3 [facility] Comment on above: Performed By: #### L [id number] ####[facility] ([facility])[address] [place] [address] Chloride [Moles/Vol] 103 mmol/L Normal 98-107 [facility] Comment on above: Performed By: #### L [id number] ####[facility] ([facility])[address] [place] [address] CO2 [Moles/Vol] 28 mmol/L Normal 21-31 [facility] Comment on above: Performed By: #### L [id number] ####[facility] ([facility])[address] [place] [address] Creatinine [Mass/Vol] 1.44 mg/dL High 0.70-1.30 [facility] Comment on above: Performed By: #### L [id number] ####[facility] ([facility])[address] [place] [address] GLOMERULAR FILTRATION RATE ML/MIN/1.73 SQ M.PREDICTED 52.3 mL/min/1.73m*2 Low >60.0 [facility] Comment on above: Result Comment: [facility]???s estimated glomerular filtration rate (eGFR) will [...] of individuals. Performed By: #### L [id number] ####[facility] ([facility])[address] [place] [address] Glucose [Mass/Vol] 178 mg/dL High 70-100 [facility] Comment on above: Performed By: #### L [id number] ####[facility] ([facility])[address] [place] [address] Potassium [Moles/Vol] 4.1 mmol/L Normal 3.5-5.1 [facility] Comment on above: Performed By: #### L [id number] ####[facility] ([facility])[address] [place] [address] Sodium [Moles/Vol] 136 mmol/L Normal 136-145 [facility] Comment on above: Performed By: #### L [id number] ####[facility] ([facility])[address] [facility] [place] [address] Urea nitrogen [Mass/Vol] 17 mg/dL Normal 7-25 [facility] Comment on above: Performed By: #### L [id number] ####[facility] ([facility])[address] [place] [address] UREA NITROGEN/CREATININE (MASS RATIO) IN SER/PLAS 11.8 Normal [facility] Comment on above: Performed By: #### L [id number] ####[facility] ([facility])[address] [place] [address] CBCon 11-29-2022 Erythrocyte distribution width (RBC) [Ratio] 14.4 % Normal 11.5-15.0 [facility] Comment on above: Performed By: #### L [id number] ####[facility] ([facility])[address] [place] [address] ERYTHROCYTE MEAN CORPUSCULAR HEMOGLOBIN CONCENTRATION (G/DL) BY AUTOMATED 34.0 g/dL Normal 32.0-35.0 [facility] Comment on above: Performed By: #### L [id number] ####[facility] ([facility])[address] [place] [address] Hematocrit (Bld) [Volume fraction] 41.5 % Normal 39.0-55.0 [facility] Comment on above: Performed By: #### L [id number] ####[facility] ([facility])[address] [place] [address] Hemoglobin (Bld) [Mass/Vol] 14.1 g/dL Normal 13.0-17.0 [facility] Comment on above: Performed By: #### L [id number] ####[facility] ([facility])[address] [place] [address] MCH (RBC) [Entitic mass] 29.6 pg Normal 27.0-33.0 [facility] Comment on above: Performed By: #### L [id number] ####[facility] ([facility])[address] [place] [address] MCV (RBC) [Entitic vol] 87.2 fL Normal 82.0-98.0 [facility] Comment on above: Performed By: #### L [id number] ####[facility] ([facility] [place] [address] PLATELETS (10*3/UL) IN BLOOD AUTOMATED COUNT 180 10*3/uL Normal 150-400 [facility] Comment on above: Performed By: #### L [id number] ####[facility] ([facility])[address] [place] [address] RBC (Bld) [#/Vol] 4.76 10*6/uL Normal 4.20-5.70 [facility] Comment on above: Performed By: #### L [id number] ####[facility] ([facility])[address] [place] [address] WBC (Bld) [#/Vol] 6.10 10*3/uL Normal 4.00-10.60 [facility] Comment on above: Performed By: #### L [id number] ####[facility] ([facility])[address] [address] CONSULTon 11-29-2022 CONSULT [facility] HPon 11-29-2022 HP H&P reviewed. The patient was examined and there are no changes to the H&P. [facility] POCT GLUCOSE METER UNSOLICIT ED RESULTSon 11-29-2022 Glucose [Mass/Vol] 168 mg/dL High 70-105 [facility] Comment on above: Order Comment: Waive d Testing in the ED is performed under the ED CLIA certificate #[id number]. Result Comment: [email or web address] Performed By: #### L [id number] ####[facility] ([facility])[address] [place] [address] Glucose [Mass/Vol] 122 mg/dL High 70-105 [facility] Comment on above: Order Comment: Waive d Testing in the ED is performed under the ED CLIA certificate #[id number]. Result Comment: [email or web address] Performed By: #### L [id number] ####[facility] ([facility])[address] [place] [address] Glucose [Mass/Vol] 144 mg/dL High 70-105 [facility] Comment on above: Order Comment: Waive d Testing in the ED is performed under the ED CLIA certificate #[id number]. Result Comment: [email or web address] Performed By: #### L [id number] ####[facility] ([facility]ER)[address] [place] [address] Glucose [Mass/Vol] 157 mg/dL High 70-105 [facility] Comment on above: Order Comment: Waive d Testing in the ED is performed under the ED CLIA certificate #[id number]. Result Comment: [email or web address] Performed By: #### L [id number] ####[facility] ([facility])[address] [facility] [place] [address] 30on 11-28-2022 30 Normal [facility] 30 Normal [facility] 30 [facility] ANTI-XA (HEPARIN LEVEL)on HEPARIN UNFRACTIONATED (U/ML) IN PPP BY CHROMOGENIC METHOD 0.47 IU/mL Normal 0.3-0.7 [facility] Comment on above: Result Comment: [place] roxaban and Apixaban will interfere with the anti Xa assay used to monitor UFH and LMWH. Performed By: #### L [id number] ####[facility] (AKER)[address] [place] [address] HEPARIN UNFRACTIONATED (U/ML) IN PPP BY CHROMOGENIC METHOD 0.40 IU/mL Normal 0.3-0.7 [facility] Comment on above: Result Comment: [place] roxaban and Apixaban will interfere with the anti Xa assay used to monitor UFH and LMWH. Performed By: #### L [id number] ####[facility] ([facility])[address] [place] [address] HEPARIN UNFRACTIONATED (U/ML) IN PPP BY CHROMOGENIC METHOD 0.23 IU/mL Low 0.3-0.7 [facility] Comment on above: Result Comment: [place] roxaban and Apixaban will interfere with the anti Xa assay used to monitor UFH and LMWH. Performed By: #### L [id number] ####[facility] ([facility])[address] [place] [address] HEPARIN UNFRACTIONATED (U/ML) IN PPP BY CHROMOGENIC METHOD 0.10 IU/mL Invalid Interpretation Code 0.3-0.7 [facility] Comment on above: Result Comment: [place] roxaban and Apixaban will interfere with the anti Xa assay used to monitor UFH and LMWH. Performed By: #### L [id number] ####[facility] ([facility])[address] [place] [address] BASIC METABOLIC PANELon 11-11 Anion gap [Moles/Vol] 10 mmol/L Normal 7-20 [facility] Comment on above: Performed By: #### L [id number] ####[facility] ([facility] [place] [address] Calcium [Mass/Vol] 8.9 mg/dL Normal 8.6-10.3 [facility] Comment on above: Performed By: #### L [id number] ####[facility] ([facility] [place] [address] Chloride [Moles/Vol] 105 mmol/L Normal 98-107 [facility] Comment on above: Performed By: #### L [id number] ####[facility] ([facility] [place] [address] CO2 [Moles/Vol] 25 mmol/L Normal 21-31 [facility] Comment on above: Performed By: #### L [id number] ####[facility] ([facility] [place] [address] Creatinine [Mass/Vol] 1.22 mg/dL Normal 0.70-1.30 [facility] Comment on above: Performed By: #### L [id number] ####[facility] ([facility] [place] [address] GLOMERULAR FILTRATION RATE ML/MIN/1.73 SQ M.PREDICTED 63.8 mL/min/1.73m*2 Normal >60.0 [facility] Comment on above: Result Comment: [facility]???s estimated glomerular filtration rate (eGFR) will [...] of individuals. Performed By: #### L [id number] ####[facility] ([facility])[address] [place] [address] Glucose [Mass/Vol] 153 mg/dL High 70-100 [facility] Comment on above: Performed By: #### L [id number] ####[facility] ([facility])[address] [place] [address] Potassium [Moles/Vol] 3.8 mmol/L Normal 3.5-5.1 [facility] Comment on above: Performed By: #### L [id number] ####[facility] ([facility])[address] [facility] [place] [address] Sodium [Moles/Vol] 136 mmol/L Normal 136-145 [facility] Comment on above: Performed By: #### L [id number] ####[facility] ([facility])[address] [facility] [place] [address] Urea nitrogen [Mass/Vol] 14 mg/dL Normal 7-25 [facility] Comment on above: Performed By: #### L [id number] ####[facility] ([facility])[address] [facility] [place] [address] UREA NITROGEN/CREATININE (MASS RATIO) IN SER/PLAS 11.5 Normal [facility] Comment on above: Performed By: #### L [id number] ####[facility] ([facility])[address] [facility] [place] [address] CBCon 11-28-2022 Erythrocyte distribution width (RBC) [Ratio] 14.3 % Normal 11.5-15.0 [facility] Comment on above: Performed By: #### L [id number] ####[facility] ([facility] [place] [address] ERYTHROCYTE MEAN CORPUSCULAR HEMOGLOBIN CONCENTRATION (G/DL) BY AUTOMATED 33.2 g/dL Normal 32.0-35.0 [facility] Comment on above: Performed By: #### L [id number] ####[facility] ([facility] [place] [address] Hematocrit (Bld) [Volume fraction] 40.4 % Normal 39.0-55.0 [facility] Comment on above: Performed By: #### L [id number] ####[facility] ([facility])[address] [place] [address] Hemoglobin (Bld) [Mass/Vol] 13.4 g/dL Normal 13.0-17.0 [facility] Comment on above: Performed By: #### L [id number] ####[facility] ([facility])[address] [place] [address] MCH (RBC) [Entitic mass] 29.3 pg Normal 27.0-33.0 [facility] Comment on above: Performed By: #### L [id number] ####[facility] ([facility])[address] [place] [address] MCV (RBC) [Entitic vol] 88.2 fL Normal 82.0-98.0 [facility] Comment on above: Performed By: #### L [id number] ####[facility] ([facility] [place] [address] PLATELETS (10*3/UL) IN BLOOD AUTOMATED COUNT 194 10*3/uL Normal 150-400 [facility] Comment on above: Performed By: #### L [id number] ####[facility] ([facility] [place] [address] RBC (Bld) [#/Vol] 4.58 10*6/uL Normal 4.20-5.70 [facility] Comment on above: Performed By: #### L [id number] ####[facility] (BEAKER)[address] [place] [address] WBC (Bld) [#/Vol] 7.10 10*3/uL Normal 4.00-10.60 [facility] Comment on above: Performed By: #### L [id number] ####[facility] ([facility])[address] [place] [address] CONSULTon 11-28-2022 CONSULT Normal [facility] MAGNESIUMon 11-28-2022 Magnesium [Mass/Vol] 1.7 mg/dL Low 1.9-2.7 [facility] Comment on above: Performed By: #### L [id number] ####[facility] ([facility])[address] [place] [address] NURSNOTEon 11-28-2022 NURSNOTE Normal [facility] PHOSPHORUSon 11-28-2022 Magnesium [Mass/Vol] 3.8 mg/dL Normal 2.5-5.0 [facility] Comment on above: Performed By: #### L [id number] ####[facility] ([facility])[address] [place] [address] POCT GLUCOSE METER UNSOLICIT ED RESULTSon 11-28-2022 Glucose [Mass/Vol] 202 mg/dL High 70-105 [facility] Comment on above: Order Comment: Waive d Testing in the ED is performed under the ED CLIA certificate #[id number]. Result Comment: [email or web address] Performed By: #### L [id number] ####[facility] ([facility])[address] [place] [address] Glucose [Mass/Vol] 110 mg/dL High 70-105 [facility] Comment on above: Order Comment: Waive d Testing in the ED is performed under the ED CLIA certificate #[id number]. Result Comment: [email or web address] Performed By: #### L [id number] ####[facility] ([facility])[address] [place] [address] Glucose [Mass/Vol] 190 mg/dL High 70-105 [facility] Comment on above: Order Comment: Waive d Testing in the ED is performed under the ED CLIA certificate #[id number]. Result Comment: [email or web address] Performed By: #### L [id number] ####[facility] ([facility] [place] [address] Glucose [Mass/Vol] 147 mg/dL High 70-105 [facility] Comment on above: Order Comment: Waive d Testing in the ED is performed under the ED CLIA certificate #[id number]. Result Comment: [email or web address] Performed By: #### L [id number] ####[facility] ([facility] [place] [address] 30on 11-27-2022 30 Normal [facility] 30 Normal [facility] 30 [facility] ANESon 11-27-2022 ANES [facility] ANTI-XA (HEPARIN LEVEL)on HEPARIN UNFRACTIONATED (U/ML) IN PPP BY CHROMOGENIC METHOD 0.49 IU/mL Normal 0.3-0.7 [facility] Comment on above: Result Comment: [place] roxaban and Apixaban will interfere with the anti Xa assay used to monitor UFH and LMWH. Performed By: #### L [id number] ####[facility] ([facility])[address] [facility] [place] [address] HEPARIN UNFRACTIONATED (U/ML) IN PPP BY CHROMOGENIC METHOD 0.50 IU/mL Normal 0.3-0.7 [facility] Comment on above: Result Comment: [place] roxaban and Apixaban will interfere with the anti Xa assay used to monitor UFH and LMWH. Performed By: #### L [id number] ####[facility] ([facility])[address] [place] [address] BASIC METABOLIC PANELon 11-11 Anion gap [Moles/Vol] 9 mmol/L Normal 7-20 [facility] Comment on above: Performed By: #### L [id number] ####[facility] ([facility])[address] [facility] [place] [address] Calcium [Mass/Vol] 8.9 mg/dL Normal 8.6-10.3 [facility] Comment on above: Performed By: #### L [id number] ####[facility] ([facility])[address] [place] [address] Chloride [Moles/Vol] 104 mmol/L Normal 98-107 [facility] Comment on above: Performed By: #### L [id number] ####[facility] ([facility])[address] [place] [address] CO2 [Moles/Vol] 25 mmol/L Normal 21-31 [facility] Comment on above: Performed By: #### L [id number] ####[facility] ([facility])[address] [place] [address] Creatinine [Mass/Vol] 1.34 mg/dL High 0.70-1.30 [facility] Comment on above: Performed By: #### L [id number] ####[facility] ([facility])[address] [place] [address] GLOMERULAR FILTRATION RATE ML/MIN/1.73 SQ M.PREDICTED 57.0 mL/min/1.73m*2 Low >60.0 [facility] Comment on above: Result Comment: [facility]???s estimated glomerular filtration rate (eGFR) will [...] of individuals. Performed By: #### L [id number] ####[facility] ([facility])[address] [place] [address] Glucose [Mass/Vol] 210 mg/dL High 70-100 [facility] Comment on above: Performed By: #### L [id number] ####[facility] ([facility])[address] [place] [address] Potassium [Moles/Vol] 4.1 mmol/L Normal 3.5-5.1 [facility] Comment on above: Performed By: #### L [id number] ####[facility] ([facility])[address] [place] [address] Sodium [Moles/Vol] 134 mmol/L Low 136-145 [facility] Comment on above: Performed By: #### L [id number] ####[facility] ([facility])[address] [place] [address] Urea nitrogen [Mass/Vol] 18 mg/dL Normal 7-25 [facility] Comment on above: Performed By: #### L [id number] ####[facility] ([facility])[address] [place] [address] UREA NITROGEN/CREATININE (MASS RATIO) IN SER/PLAS 13.4 Normal [facility] Comment on above: Performed By: #### L [id number] ####[facility] ([facility])[address] [place] [address] CBCon 11-27-2022 Erythrocyte distribution width (RBC) [Ratio] 14.2 % Normal 11.5-15.0 [facility] Comment on above: Performed By: #### L [id number] ####[facility] ([facility])[address] [place] [address] ERYTHROCYTE MEAN CORPUSCULAR HEMOGLOBIN CONCENTRATION (G/DL) BY AUTOMATED 33.3 g/dL Normal 32.0-35.0 [facility] Comment on above: Performed By: #### L [id number] ####[facility] ([facility])[address] [place] [address] Hematocrit (Bld) [Volume fraction] 41.5 % Normal 39.0-55.0 [facility] Comment on above: Performed By: #### L [id number] ####[facility] ([facility])[address] [place] [address] Hemoglobin (Bld) [Mass/Vol] 13.8 g/dL Normal 13.0-17.0 [facility] Comment on above: Performed By: #### L [id number] ####[facility] ([facility])[address] [place] [address] MCH (RBC) [Entitic mass] 28.9 pg Normal 27.0-33.0 [facility] Comment on above: Performed By: #### L [id number] ####[facility] ([facility])[address] [place] [address] MCV (RBC) [Entitic vol] 86.8 fL Normal 82.0-98.0 [facility] Comment on above: Performed By: #### L [id number] ####[facility] ([facility])[address] [place] [address] PLATELETS (10*3/UL) IN BLOOD AUTOMATED COUNT 187 10*3/uL Normal 150-400 [facility] Comment on above: Performed By: #### L [id number] ####[facility] ([facility])[address] [place] [address] RBC (Bld) [#/Vol] 4.78 10*6/uL Normal 4.20-5.70 [facility] Comment on above: Performed By: #### L [id number] ####[facility] ([facility])[address] [place] [address] WBC (Bld) [#/Vol] 6.16 10*3/uL Normal 4.00-10.60 [facility] Comment on above: Performed By: #### L [id number] ####[facility] [place] [address] HPon 11-27-2022 HP Normal [facility] MAGNESIUMon 11-27-2022 Magnesium [Mass/Vol] 1.8 mg/dL Low 1.9-2.7 [facility] [facility] Comment on above: Performed By: #### L [id number] ####[facility] ([facility] [place] [address] PHOSPHORUSon 11-27-2022 Magnesium [Mass/Vol] 3.4 mg/dL Normal 2.5-5.0 [facility] Comment on above: Performed By: #### L [id number] ####[facility] ([facility])[address] [place] [address] POCT GLUCOSE METER UNSOLICIT ED RESULTSon 11-27-2022 Glucose [Mass/Vol] 393 mg/dL High 70-105 [facility] Comment on above: Order Comment: Waive d Testing in the ED is performed under the ED CLIA certificate #[id number]. Result Comment: crystal philip Performed By: #### L [id number] ####[facility] ([facility])[address] [place] [address] Glucose [Mass/Vol] 142 mg/dL High 70-105 [facility] Comment on above: Order Comment: Waive d Testing in the ED is performed under the ED CLIA certificate #[id number]. Result Comment: lukasz yanez Performed By: #### L [id number] ####[facility] ([facility])[address] [place] [address] Glucose [Mass/Vol] 147 mg/dL High 70-105 [facility] Comment on above: Order Comment: Waive d Testing in the ED is performed under the ED CLIA certificate #[id number]. Result Comment: [place] Performed By: #### L [id number] ####[facility] ([facility] [place] [address] Glucose [Mass/Vol] 163 mg/dL High 70-105 [facility] Comment on above: Order Comment: Waive d Testing in the ED is performed under the ED CLIA certificate #[id number]. Result Comment: [place] Performed By: #### L [id number] ####[facility] ([facility])[address] [place] [address] 30on 11-26-2022 30 Normal [facility] 30 Normal [facility] ANTI-XA (HEPARIN LEVEL)on HEPARIN UNFRACTIONATED (U/ML) IN PPP BY CHROMOGENIC METHOD 0.57 IU/mL Normal 0.3-0.7 [facility] Comment on above: Result Comment: [place] roxaban and Apixaban will interfere with the anti Xa assay used to monitor UFH and LMWH. Performed By: #### L [id number] ####[facility] (BE[facility]ER)[address] [place] [address] HEPARIN UNFRACTIONATED (U/ML) IN PPP BY CHROMOGENIC METHOD 0.96 IU/mL Critically high 0.3-0.7 [facility] Comment on above: Result Comment: [place] roxaban and Apixaban will interfere with the anti Xa assay used to monitor UFH and LMWH. Performed By: #### L [id number] ####[facility] (BE[facility]ER)[address] [place] [address] HEPARIN UNFRACTIONATED (U/ML) IN PPP BY CHROMOGENIC METHOD 0.68 IU/mL Normal 0.3-0.7 [facility] Comment on above: Order Comment: Check anti-Xa level every 6 hours while on heparin infusion, or per protocol. Result Comment: [place] roxaban and Apixaban will interfere with the anti Xa assay used to monitor UFH and LMWH. Performed By: #### L [id number] ####[facility] (BE[facility]ER)[address] [place] [address] HEPARIN UNFRACTIONATED (U/ML) IN PPP BY CHROMOGENIC METHOD 0.66 IU/mL Normal 0.3-0.7 [facility] Comment on above: Order Comment: Check anti-Xa level every 6 hours while on heparin infusion, or per protocol. Result Comment: [place] roxaban and Apixaban will interfere with the anti Xa assay used to monitor UFH and LMWH. Performed By: #### L [id number] ####[facility] (BEAKER)[address] [place] [address] BASIC METABOLIC PANELon 11-11 Anion gap [Moles/Vol] 8 mmol/L Normal 7-20 [facility] Comment on above: Performed By: #### L [id number] ####[facility] (BE[facility])[address] [place] [address] Calcium [Mass/Vol] 8.9 mg/dL Normal 8.6-10.3 [facility] Comment on above: Performed By: #### L [id number] ####[facility] (BE[facility]ER)[address] [place] [address] Chloride [Moles/Vol] 106 mmol/L Normal 98-107 [facility] Comment on above: Performed By: #### L [id number] ####[facility] (BEAKER)[address] [place] [address] CO2 [Moles/Vol] 26 mmol/L Normal 21-31 [facility] Comment on above: Performed By: #### L [id number] ####[facility] (BE[facility]ER)[address] [place] [address] Creatinine [Mass/Vol] 1.30 mg/dL Normal 0.70-1.30 [facility] Comment on above: Performed By: #### L [id number] ####[facility] (BE[facility]ER)[address] [place] [address] GLOMERULAR FILTRATION RATE ML/MIN/1.73 SQ M.PREDICTED 59.1 mL/min/1.73m*2 Low >60.0 [facility] Comment on above: Result Comment: [facility]???s estimated glomerular filtration rate (eGFR) will [...] of individuals. Performed By: #### L [id number] ####[facility] (BE[facility]ER)[address] [place] [address] Glucose [Mass/Vol] 196 mg/dL High 70-100 [facility] Comment on above: Performed By: #### L [id number] ####[facility] ([facility])[address] [place] [address] Potassium [Moles/Vol] 4.2 mmol/L Normal 3.5-5.1 [facility] Comment on above: Performed By: #### L [id number] ####[facility] ([facility])[address] [place] [address] Sodium [Moles/Vol] 136 mmol/L Normal 136-145 [facility] Comment on above: Performed By: #### L [id number] ####[facility] ([facility])[address] [place] [address] Urea nitrogen [Mass/Vol] 17 mg/dL Normal 7-25 [facility] Comment on above: Performed By: #### L [id number] ####[facility] ([facility])[address] [place] [address] UREA NITROGEN/CREATININE (MASS RATIO) IN SER/PLAS 13.1 Normal [facility] Comment on above: Performed By: #### L [id number] ####[facility] ([facility])[address] [place] [address] CBC WITH AUTO DIFFERENTIALon 11-26-2022 Basophils (Bld) [#/Vol] 0.03 10*3/uL Normal 0.00-0.20 [facility] Comment on above: Performed By: #### L [id number] ####[facility] ([facility])[address] [place] [address] Basophils/100 WBC (Bld) 0.4 % Normal 0.0-1.0 [facility] Comment on above: Performed By: #### L [id number] ####[facility] ([facility])[address] [place] [address] Eosinophils (Bld) [#/Vol] 0.21 10*3/uL Normal 0.00-0.50 [facility] Comment on above: Performed By: #### L [id number] ####[facility] (BEAKER)[address] [place] [address] Eosinophils/100 WBC (Bld) 3.1 % Normal 0.0-6.0 [facility] Comment on above: Performed By: #### L [id number] ####[facility] (BE[facility]ER)[address] [place] [address] Erythrocyte distribution width (RBC) [Ratio] 14.3 % Normal 11.5-15.0 [facility] Comment on above: Performed By: #### L [id number] ####[facility] (BEAKER)[address] [place] [address] ERYTHROCYTE MEAN CORPUSCULAR HEMOGLOBIN CONCENTRATION (G/DL) BY AUTOMATED 33.4 g/dL Normal 32.0-35.0 [facility] Comment on above: Performed By: #### L [id number] ####[facility] ([facility] [place] [address] Hematocrit (Bld) [Volume fraction] 42.5 % Normal 39.0-55.0 [facility] Comment on above: Performed By: #### L [id number] ####[facility] (BEAKER)[address] [place] [address] Hemoglobin (Bld) [Mass/Vol] 14.2 g/dL Normal 13.0-17.0 [facility] Comment on above: Performed By: #### L [id number] ####[facility] (BEAKER)[address] [place] [address] Immature granulocytes (Bld) [#/Vol] 0.03 10*3/uL Normal 0.00-0.20 [facility] Comment on above: Performed By: #### L [id number] ####[facility] (BE[facility]ER)[address] [place] [address] Immature granulocytes/100 WBC (Bld) 0.4 % Normal 0.0-1.0 [facility] Comment on above: Performed By: #### L [id number] ####[facility] (BE[facility]ER)[address] [place] [address] Lymphocytes (Bld) [#/Vol] 1.09 10*3/uL Low 1.20-4.00 [facility] Comment on above: Performed By: #### L [id number] ####[facility] (BE[facility]ER)[address] [place] [address] Lymphocytes/100 WBC (Bld) 16.2 % Low 20.0-45.0 [facility] Comment on above: Performed By: #### L [id number] ####[facility] (BEAKER)[address] [place] [address] MCH (RBC) [Entitic mass] 29.1 pg Normal 27.0-33.0 [facility] Comment on above: Performed By: #### L [id number] ####[facility] (BE[facility]ER)[address] [place] [address] MCV (RBC) [Entitic vol] 87.1 fL Normal 82.0-98.0 [facility] Comment on above: Performed By: #### L [id number] ####[facility] (BEAKER)[address] [place] [address] Monocytes (Bld) [#/Vol] 0.46 10*3/uL Normal 0.10-1.00 [facility] Comment on above: Performed By: #### L [id number] ####[facility] (BEAKER)[address] [place] [address] Monocytes/100 WBC (Bld) 6.8 % Normal 5.0-12.0 [facility] Comment on above: Performed By: #### L [id number] ####[facility] ([facility])[address] [place] [address] Neutrophils (Bld) [#/Vol] 4.90 10*3/uL Normal 1.60-7.60 [facility] Comment on above: Performed By: #### L [id number] ####[facility] (BE[facility]ER)[address] [place] [address] Neutrophils/100 WBC (Bld) 73.1 % High 40.0-72.0 [facility] Comment on above: Performed By: #### L [id number] ####[facility] ([facility])[address] [place] [address] NRBC (PER 100 WBCS) BY AUTOMATED COUNT 0.0 % Normal 0 [facility] Comment on above: Performed By: #### L [id number] ####[facility] ([facility])[address] [place] [address] PLATELETS (10*3/UL) IN BLOOD AUTOMATED COUNT 201 10*3/uL Normal 150-400 [facility] Comment on above: Performed By: #### L [id number] ####[facility] ([facility])[address] [place] [address] RBC (Bld) [#/Vol] 4.88 10*6/uL Normal 4.20-5.70 [facility] Comment on above: Performed By: #### L [id number] ####[facility] ([facility])[address] [place] [address] WBC (Bld) [#/Vol] 6.72 10*3/uL Normal 4.00-10.60 [facility] Comment on above: Performed By: #### L [id number] ####[facility] ([facility])[address] [place] [address] MAGNESIUMon 11-26-2022 Magnesium [Mass/Vol] 1.7 mg/dL Low 1.9-2.7 [facility] Comment on above: Performed By: #### L [id number] ####[facility] ([facility])[address] [place] [address] NURSNOTEon 11-26-2022 NURSNOTE Normal [facility] PHOSPHORUSon 11-26-2022 Magnesium [Mass/Vol] 3.0 mg/dL Normal 2.5-5.0 [facility] Comment on above: Performed By: #### L [id number] ####[facility] ([facility])[address] [place] [address] POCT GLUCOSE METER UNSOLICIT ED RESULTSon 11-26-2022 Glucose [Mass/Vol] 188 mg/dL High 70-105 [facility] Comment on above: Order Comment: Waive d Testing in the ED is performed under the ED CLIA certificate #[id number]. Result Comment: [email or web address] Performed By: #### L [id number] ####[facility] ([facility])[address] [place] [address] Glucose [Mass/Vol] 142 mg/dL High 70-105 [facility] Comment on above: Order Comment: Waive d Testing in the ED is performed under the ED CLIA certificate #[id number]. Result Comment: [email or web address] yanez Performed By: #### L [id number] ####[facility] ([facility])[address] [place] [address] Glucose [Mass/Vol] 201 mg/dL High 70-105 [facility] Comment on above: Order Comment: Waive d Testing in the ED is performed under the ED CLIA certificate #[id number]. Result Comment: [email or web address] Performed By: #### L [id number] ####[facility] ([facility])[address] [place] [address] Glucose [Mass/Vol] 159 mg/dL High 70-105 [facility] Comment on above: Order Comment: Waive d Testing in the ED is performed under the ED CLIA certificate #[id number]. Result Comment: [email or web address] Performed By: #### L [id number] ####[facility] ([facility])[address] [place] [address] TROPONIN Ion 11-26-2022 Troponin I.cardiac [Mass/Vol] 0.02 ng/mL Normal 0.00-0.04 [facility] Comment on above: Performed By: #### L [id number] ####[facility] ([facility])[address] [place] [address] 30on 11-25-2022 30 Normal [facility] ANTI-XA (HEPARIN LEVEL)on HEPARIN UNFRACTIONATED (U/ML) IN PPP BY CHROMOGENIC METHOD >1.00 Critically high 0.3-0.7 [facility] Comment on above: Order Comment: Check anti-Xa level every 6 hours while on heparin infusion, or per protocol. Result Comment: [place] roxaban and Apixaban will interfere with the anti Xa assay used to monitor UFH and LMWH. Performed By: #### L [id number] ####[facility] ([facility])[address] [place] [address] APTTon 11-25-2022 ACTIVATED PARTIAL THROMBOPLASTIN TIME IN PPP BY COAGULATION ASSAY 31.6 Seconds Normal 25.0-35.0 [facility] Comment on above: Order Comment: Basel ine aPTT before initiating heparin infusion. Result Comment: Clin ical significance of the APTT is questionable in the presence of heparin. Performed By: #### L [id number] ####[facility] ([facility])[address] [place] [address] ACTIVATED PARTIAL THROMBOPLASTIN TIME IN PPP BY COAGULATION ASSAY 32.7 Seconds Normal 25.0-35.0 [facility] Comment on above: Result Comment: Clin ical significance of the APTT is questionable in the presence of heparin. Performed By: #### L [id number] ####[facility] ([facility])[address] [place] [address] BASIC METABOLIC PANELon 11-11 Anion gap [Moles/Vol] 11 mmol/L Normal 7-20 [facility] Comment on above: Performed By: #### L [id number] ####[facility] ([facility])[address] [place] [address] Calcium [Mass/Vol] 9.2 mg/dL Normal 8.6-10.3 [facility] Comment on above: Performed By: #### L [id number] ####[facility] ([facility])[address] [place] [address] Chloride [Moles/Vol] 105 mmol/L Normal 98-107 [facility] Comment on above: Performed By: #### L [id number] ####[facility] [place] [address] CO2 [Moles/Vol] 26 mmol/L Normal 21-31 [facility] Comment on above: Performed By: #### L [id number] ####[facility] [place] [address] Creatinine [Mass/Vol] 1.21 mg/dL Normal 0.70-1.30 [facility] Comment on above: Performed By: #### L [id number] ####[facility] ([facility])[address] [place] [address] GLOMERULAR FILTRATION RATE ML/MIN/1.73 SQ M.PREDICTED 64.4 mL/min/1.73m*2 Normal >60.0 [facility] Comment on above: Result Comment: [facility]???s estimated glomerular filtration rate (eGFR) will [...] of individuals. Performed By: #### L [id number] ####[facility] [place] [address] Glucose [Mass/Vol] 200 mg/dL High 70-100 [facility] Comment on above: Performed By: #### L [id number] ####[facility] ([facility] [place] [address] Potassium [Moles/Vol] 3.8 mmol/L Normal 3.5-5.1 [facility] Comment on above: Performed By: #### L [id number] ####[facility] ([facility] [place] [address] Sodium [Moles/Vol] 138 mmol/L Normal 136-145 [facility] Comment on above: Performed By: #### L [id number] ####[facility] ([facility] [place] [address] Urea nitrogen [Mass/Vol] 18 mg/dL Normal 7-25 [facility] Comment on above: Performed By: #### L [id number] ####[facility] ([facility])[address] [place] [address] UREA NITROGEN/CREATININE (MASS RATIO) IN SER/PLAS 14.9 Normal [facility] Comment on above: Performed By: #### L [id number] ####[facility] ([facility])[address] [place] [address] CALCIUM, IONIZEDon CALCIUM IONIZED (MMOL/L) IN BLOOD 1.16 mmol/L Normal 1.15-1.33 [facility] Comment on above: Performed By: #### C ALCIUM, IONIZED ####[facility] [id number] [place] [address] [place] CBC WITH AUTO DIFFERENTIALon 11-25-2022 Basophils (Bld) [#/Vol] 0.03 10*3/uL Normal 0.00-0.20 [facility] Comment on above: Performed By: #### L [id number] ####[facility] (BEAKER)[address] [place] [address] Basophils/100 WBC (Bld) 0.5 % Normal 0.0-1.0 [facility] Comment on above: Performed By: #### L [id number] ####[facility] ([facility]ER)[address] [place] [address] Eosinophils (Bld) [#/Vol] 0.15 10*3/uL Normal 0.00-0.50 [facility] Comment on above: Performed By: #### L [id number] ####[facility] ([facility])[address] [place] [address] Eosinophils/100 WBC (Bld) 2.3 % Normal 0.0-6.0 [facility] Comment on above: Performed By: #### L [id number] ####[facility] ([facility])[address] [place] [address] Erythrocyte distribution width (RBC) [Ratio] 14.1 % Normal 11.5-15.0 [facility] Comment on above: Performed By: #### L [id number] ####[facility] ([facility])[address] [place] [address] ERYTHROCYTE MEAN CORPUSCULAR HEMOGLOBIN CONCENTRATION (G/DL) BY AUTOMATED 34.5 g/dL Normal 32.0-35.0 [facility] Comment on above: Performed By: #### L [id number] ####[facility] ([facility])[address] [place] [address] Hematocrit (Bld) [Volume fraction] 44.4 % Normal 39.0-55.0 [facility] Comment on above: Performed By: #### L [id number] ####[facility] ([facility])[address] [place] [address] Hemoglobin (Bld) [Mass/Vol] 15.3 g/dL Normal 13.0-17.0 [facility] Comment on above: Performed By: #### L [id number] ####[facility] ([facility])[address] [place] [address] Immature granulocytes (Bld) [#/Vol] 0.03 10*3/uL Normal 0.00-0.20 [facility] Comment on above: Performed By: #### L [id number] ####[facility] ([facility] [place] [address] Immature granulocytes/100 WBC (Bld) 0.5 % Normal 0.0-1.0 [facility] Comment on above: Performed By: #### L [id number] ####[facility] [place] [address] Lymphocytes (Bld) [#/Vol] 0.98 10*3/uL Low 1.20-4.00 [facility] Comment on above: Performed By: #### L [id number] ####[facility] ([facility]ER)[address] [place] [address] Lymphocytes/100 WBC (Bld) 15.0 % Low 20.0-45.0 [facility] Comment on above: Performed By: #### L [id number] ####[facility] ([facility]ER)[address] [place] [address] MCH (RBC) [Entitic mass] 29.4 pg Normal 27.0-33.0 [facility] Comment on above: Performed By: #### L [id number] ####[facility] ([facility])[address] [place] [address] MCV (RBC) [Entitic vol] 85.4 fL Normal 82.0-98.0 [facility] Comment on above: Performed By: #### L [id number] ####[facility] ([facility])[address] [place] [address] Monocytes (Bld) [#/Vol] 0.55 10*3/uL Normal 0.10-1.00 [facility] Comment on above: Performed By: #### L [id number] ####[facility] ([facility])[address] [place] [address] Monocytes/100 WBC (Bld) 8.4 % Normal 5.0-12.0 [facility] Comment on above: Performed By: #### L [id number] ####[facility] ([facility])[address] [place] [address] Neutrophils (Bld) [#/Vol] 4.80 10*3/uL Normal 1.60-7.60 [facility] Comment on above: Performed By: #### L [id number] ####[facility] ([facility])[address] [place] [address] Neutrophils/100 WBC (Bld) 73.3 % High 40.0-72.0 [facility] Comment on above: Performed By: #### L [id number] ####[facility] ([facility])[address] [place] [address] NRBC (PER 100 WBCS) BY AUTOMATED COUNT 0.0 % Normal 0 [facility] Comment on above: Performed By: #### L [id number] ####[facility] ([facility])[address] [place] [address] PLATELETS (10*3/UL) IN BLOOD AUTOMATED COUNT 198 10*3/uL Normal 150-400 [facility] Comment on above: Performed By: #### L [id number] ####[facility] ([facility])[address] [place] [address] RBC (Bld) [#/Vol] 5.20 10*6/uL Normal 4.20-5.70 [facility] Comment on above: Performed By: #### L [id number] ####[facility] ([facility])[address] [place] [address] WBC (Bld) [#/Vol] 6.54 10*3/uL Normal 4.00-10.60 [facility] Comment on above: Performed By: #### L [id number] ####[facility] ([facility])[address] [place] [address] CONSULTon 11-25-2022 CONSULT Normal [facility] Documentationon 11-25-2022 Documentation [id number] Shad Rodriguez 1950 M Date Provider Department [place] 11/25/[id number] [facility] family history on file Normal [facility] HEPATIC FUNCTION PANELon Albumin [Mass/Vol] 4.0 g/dL Normal 3.5-5.7 [facility] Comment on above: Performed By: #### L [id number] ####[facility] ([facility])[address] [place] [address] ALP [Catalytic activity/Vol] 88 U/L Normal 34-104 [facility] Comment on above: Performed By: #### L [id number] ####[facility] ([facility])[address] [place] [address] ALT [Catalytic activity/Vol] 26 U/L Normal 7-52 [facility] Comment on above: Performed By: #### L [id number] ####[facility] ([facility])[address] [place] [address] AST [Catalytic activity/Vol] 18 U/L Normal 13-39 [facility] Comment on above: Performed By: #### L [id number] ####[facility] ([facility])[address] [place] [address] Bilirubin [Mass/Vol] 0.6 mg/dL Normal 0.3-1.0 [facility] Comment on above: Performed By: #### L [id number] ####[facility] ([facility])[address] [place] [address] Magnesium [Mass/Vol] 0.2 mg/dL Normal 0-0.2 [facility] Comment on above: Performed By: #### L [id number] ####[facility] ([facility])[address] [place] [address] Protein [Mass/Vol] 6.4 g/dL Normal 6.0-8.3 [facility] Comment on above: Performed By: #### L [id number] ####[facility] ([facility])[address] [place] [address] HPon 11-25-2022 HP Normal [facility] HP Normal [facility] MAGNESIUMon 11-25-2022 Magnesium [Mass/Vol] 1.7 mg/dL Low 1.9-2.7 [facility] Comment on above: Performed By: #### L [id number] ####[facility] ([facility])[address] [place] [address] PHOSPHORUSon 11-25-2022 Magnesium [Mass/Vol] 3.2 mg/dL Normal 2.5-5.0 [facility] Comment on above: Performed By: #### L [id number] ####[facility] ([facility])[address] [place] [address] PLATELET COUNTon 11-25-2022 PLATELETS (10*3/UL) IN BLOOD AUTOMATED COUNT 204 10*3/uL Normal 150-400 [facility] Comment on above: Performed By: #### L [id number] ####[facility] ([facility])[address] [place] [address] POCT GLUCOSE METER UNSOLICIT ED RESULTSon 11-25-2022 Glucose [Mass/Vol] 194 mg/dL High 70-105 [facility] Comment on above: Order Comment: Waive d Testing in the ED is performed under the ED CLIA certificate #[id number]. Result Comment: abec [email or web address] Performed By: #### L [id number] ####[facility] ([facility])[address] [place] [address] Glucose [Mass/Vol] 193 mg/dL High 70-105 [facility] Comment on above: Order Comment: Waive d Testing in the ED is performed under the ED CLIA certificate #[id number]. Result Comment: awat [email or web address] Performed By: #### L [id number] ####[facility] ([facility])[address] [place] [address] Glucose [Mass/Vol] 188 mg/dL High 70-105 [facility] Comment on above: Order Comment: Waive d Testing in the ED is performed under the ED CLIA certificate #[id number]. Result Comment: awat kin26 Performed By: #### L [id number] ####[facility] ([facility])[address] [place] [address] Glucose [Mass/Vol] 178 mg/dL High 70-105 [facility] Comment on above: Order Comment: Waive d Testing in the ED is performed under the ED CLIA certificate #[id number]. Result Comment: abec [email or web address] Performed By: #### L [id number] ####[facility] ([facility])[address] [place] [address] POTASSIUM, WHOLE BLOODon Potassium [Moles/Vol] 3.9 mmol/L Normal 3.5-5.1 [facility] Comment on above: Performed By: #### P OTASSIUM, WHOLE BLOOD ####[facility] [id number] [place] [address] [place] PROTIME-INRon 11-25-2022 INR IN PPP BY COAGULATION ASSAY 1.74 High 0.90-1.10 [facility] Comment on above: Result Comment: ACCC P RECOMMENDED INR FOR [facility] THERAPY CONDITION INRPROPHYLAXIS OF VENOUS THROMBOSIS 2-3(HIGH-RISK SURGERY)TREATMENT OF VENOUS THROMBOSIS 2-3TREATMENT OF PULMONARY EMBOLISM 2-3PREVENTION OF SYSTEMIC EMBOLISM: 2-3 ACUTE MYOCARDIAL INFARCTION TISSUE HEART VALVES VALVULAR HEART DISEASE ATRIAL FIBRILLATION RECURRENT SYSTEMIC EMBOLISMMECHANICAL HEART VALVE 2.5-3.5 FROM: ORAL ANTICOAGULANTS. MECHANISM OF ACTION, CLINICAL EFFECTIVENESS, AND OPTIMAL THERAPEUTIC RANGE. CHEST 1995;108:231S-246S. Performed By: #### L [id number] ####[facility] (BE[facility]ER)[address] [place] [address] PROTHROMBIN TIME (PT) IN PPP BY COAGULATION ASSAY 20.4 Seconds High 12.3-14.8 [facility] Comment on above: Performed By: #### L [id number] ####[facility] ([facility])[address] [place] [address] SODIUM, WHOLE BLOODon 2022 SODIUM, WHOLE BLOOD 132 Low 136-145 [facility] Comment on above: Performed By: #### S ODIUM, WHOLE BLOOD ####[facility] [id number] [place] [address] [place] TROPONIN Ion 11-25-2022 Troponin I.cardiac [Mass/Vol] 0.03 ng/mL Normal 0.00-0.04 [facility] Comment on above: Performed By: #### L [id number] ####[facility] ([facility])[address] [place] [address] Troponin I.cardiac [Mass/Vol] 0.01 ng/mL Normal 0.00-0.04 [facility] Comment on above: Performed By: #### L [id number] ####[facility] ([facility])[address] [place] [address] CHEMISTRYOrdered By: Lab ROP User on 10-02-2022 INR Coag (Bld) [Relative time] 2.1 {INR} High 0.7 - 1.2 [facility] POC Subsection POC Device SN [id number] Invalid Interpretation Code [facility] POC Subsection POC Username PARISA HYDE Invalid Interpretation Code [facility] POC Subsection POCT PT 23.2 s High 8.0 - 15.0 second(s) [facility] POC Subsection Sodium [Moles/Vol] [id number] mmol/L Invalid Interpretation Code [facility] POC Subsection COAGULATIONOrdered By: Elenita Hyde on 10-02-2022 INR Coag (Bld) [Relative time] 2.1 {INR} High 0.7 - 1.2 [facility] POCT PT 23.2 s High 8 - 15 second(s) [facility] POCT PT/INRon 10-02-2022 POCT INR 2.1 High .7-1.2 [facility] Comment on above: Performed By: #### 2 [id number] ####[facility] [address] [place] [address] POCT PT 23.2 second(s) High 8.0-15.0 [facility] Comment on above: Performed By: #### 2 [id number] ####[facility] [address] [place] [address] CHEMISTRYOrdered By: Lab ROP User on 08-21-2022 POC Device SN [id number] Invalid Interpretation Code [facility] POC Subsection POC Username CHRISTINA HAINES Invalid Interpretation Code [facility] POC Subsection Sodium [Moles/Vol] [id number] mmol/L Invalid Interpretation Code [facility] POC Subsection COAGULATIONOrdered By: Ebenezer Haines on 08-21-2022 INR Coag (Bld) [Relative time] 2.1 {INR} High 0.7 - 1.2 [facility] POCT PT 23.3 s High 8 - 15 second(s) [facility] POCT PT/INRon 08-21-2022 POCT INR 2.1 High .7-1.2 [facility] Comment on above: Performed By: #### 2 [id number] ####[facility] [address] [place] [address] POCT PT 23.3 second(s) High 8.0-15.0 [facility] Comment on above: Performed By: #### 2 [id number] ####[facility] [address] [place] [address] Progress Note-Physicianon Progress Note-Physician Patient: SHAD RODRIGUEZ [...] stroke: no 4. Serious co-morbid conditions (recent SC, anemia with Hct <30%, CRI with SCr [...] results, # 90 tab(s), Refills(s) 0, Pharmacy: [facility]/pharmacy #[id number], 167.6, cm, 01/02/19 13:46:00 EST, Height/Length Measured, 95.8, kg, 01/02/19 13:46:00 EST, Weight Measured Eliquis 2.5 mg oral tablet: 2.5 mg = 1 tab(s), Oral, BID, # 60 tab(s), Refills(s) 5, Pharmacy: [facility]/pharmacy #[id number] Metamucil 525 mg oral capsule: 2,625 mg = 5 cap(s), Oral, Daily, X 90 day(s), # 450 cap(s), Refills(s) 3, Pharmacy: [facility]/pharmacy #[id number], 167.6, cm, 06/27/22 8:28:00 EDT, Height/Length Dosing, 94.9, kg, 06/27/22 8:28:00 EDT, Weight Dosing albuterol HFA 90 mcg/inh MDI: 2 puff(s), Inhalation, QID for wheezing, 6.7 gram, Refill(s) 0, [facility]/pharmacy #[id number] predniSONE 10 mg Tab: See Instructions, Oral 6 tabs for 1 day,5 tabs for 1 day,4 tabs for 1 day,3 tabs for 1 day,2 tabs for 1 day,1 tab for 1 day, # 21 tab(s), Refills(s) 0, Pharmacy: [facility]/pharmacy #[id number] Documented Medications Documented Immodium A-D 2 mg [...] list: All Problems Bloating / SNOMED CT 106974989 / Confirmed Constipation / SNOMED CT 71828869 / Confirmed Diverticulosis / SNOMED CT 4788476542 / Confirmed Acid reflux / SNOMED CT 521191548 / Confirmed Hemorrhoids / SNOMED CT 548714836 / Confirmed History of rectal cancer / SNOMED CT 3003957531 / Confirmed History of colon polyps / SNOMED CT 9422606728 / Confirmed Hypercoagulable state / SNOMED CT 973230407 / Confir (more content not included)... Normal [facility] Comment on above: Result Comment: Elec tronically Signed By: Leah OJEDA, Aggie\.br\Date and Time Signed: 08/21/22 08:26 EDT CHEMISTRYOrdered By: Danni BARBA User on 07-10-2022 POC Device SN [id number] Invalid Interpretation Code [facility] POC Subsection POC Username SHAYY CAIN Invalid Interpretation Code [facility] POC Subsection Sodium [Moles/Vol] 007782836 mmol/L Invalid Interpretation Code [facility] POC Subsection POCT PT/INRon 07-10-2022 POCT INR 2.3 High .7-1.2 [facility] Comment on above: Performed By: #### 2 [id number] ####[facility] [address] [place] [address] POCT PT 24.8 second(s) High 8.0-15.0 [facility] Comment on above: Performed By: #### 2 [id number] ####[facility] [address] [place] [address] Ambulatory Visit Summaryon 0 06-27-2022 Ambulatory Visit Summary SHAD RODRIGUEZ :1950 Visit Date:06/27/2022 Ambulatory Visit Instructions Your [...] Colonoscopy (10/05/2021), Colonoscopy (03/02/2017), colostomy reversal, EGD (esophagogastroduodeno scopy) gastric outlet reduction. Discharge Vitals Temperature (Temporal [...] day Constipation Duration: 90 Days Pickup at [facility]/pharmacy #[id number] Unchanged albuterol (albuterol HFA 90 mcg/ inh [...] physician if questions or concerns Pharmacy Information [facility][id number]: [address], [place] [id number] [phone] Allergies Ragweed (Dyspnea) penicillins (unknown) Problems Ongoing [...] It may (more content not included)... Normal [facility] Auto Diffon 06-27-2022 Basophils/100 WBC (Bld) 0.2 % Normal 0.0-2.0 [facility] Comment on above: Order Comment: Order Added by Discern Expert. Performed By: #### 2 887069, 9377221, 1144251, 90321581, 6032384 ####[address] [place] [address] Basophils/Leukocytes Auto (Bld) [Pure # fraction] 0.0 E9/L Normal 0.0-0.2 [facility] Comment on above: Order Comment: Order Added by Discern Expert. Performed By: #### 2 950730, 9585128, 3502078, 08043607, 7481969 ####[address] [place] [address] Eosinophils/100 WBC (Bld) 2.1 % Normal 0.0-8.0 [facility] Comment on above: Order Comment: Order Added by Discern Expert. Performed By: #### 2 320788, 3972416, 0396966, 85450414, 8926717 ####[address] [place] [address] Eosinophils/Leukocyte s Auto (Bld) [Pure # fraction] 0.1 E9/L Normal 0.0-0.5 [facility] Comment on above: Order Comment: Order Added by Discern Expert. Performed By: #### 2 621646, 4919771, 4423203, 12063315, 2677668 ####[address] [place] [address] Lymphocytes/100 WBC (Bld) 16.3 % Normal 14.0-50.0 [facility] Comment on above: Order Comment: Order Added by Discern Expert. Performed By: #### 2 716507, 7302286, 0164905, 84668091, 6350837 ####[address] [place] [address] Lymphocytes/Leukocyte s Auto (Bld) [Pure # fraction] 1.0 E9/L Normal 1.0-4.0 [facility] Comment on above: Order Comment: Order Added by Discern Expert. Performed By: #### 2 881310, 0194779, 4242506, 24154910, 5336190 ####[address] [address] Monocytes/100 WBC (Bld) 9.0 % Normal 4.0-14.0 [facility] Comment on above: Order Comment: Order Added by Michael Expert. Performed By: #### 2 427280, 4945898, 2154944, 61563178, 1924751 ####[address] [address] Monocytes/Leukocytes Auto (Bld) [Pure # fraction] 0.6 E9/L Normal 0.2-1.0 [facility] Comment on above: Order Comment: Order Added by Michael Expert. Performed By: #### 2 817470, 3133012, 8887396, 66833012, 8246524 ####[address] [address] Neutrophils/100 WBC (Bld) 72.4 % Normal 36.0-75.0 [facility] Comment on above: Order Comment: Order Added by Michael Expert. Performed By: #### 2 803732, 5438660, 2951469, 29794826, 2023107 ####[address] [address] Neutrophils/Leukocyte s Auto (Bld) [Pure # fraction] 4.6 E9/L Normal 2.0-7.5 [facility] Comment on above: Order Comment: Order Added by Michael Expert. Performed By: #### 2 563658, 4232604, 3388059, 34975229, 1093634 ####[address] [place] [address] CBC w/ Auto Diffon 3 Erythrocyte distribution width (RBC) [Ratio] 14.0 % Normal 10.9-14.2 [facility] Comment on above: Performed By: #### 2 123550, 6074247, 1938934, 82165279, 1365255 ####[address] [place] [address] Hematocrit (Bld) [Volume fraction] 46.6 % Normal 37.7-49.0 [facility] Comment on above: Performed By: #### 2 175915, 2799965, 6107646, 64362452, 0610101 ####[address] [address] Hemoglobin (Bld) [Mass/Vol] 15.3 g/dL Normal 13.5-17.5 [facility] Comment on above: Performed By: #### 2 455377, 8988980, 5373600, 54226705, 7664025 ####[address] [address] MCH (RBC) [Entitic mass] 29.2 pg Normal 27.0-34.0 [facility] Comment on above: Performed By: #### 2 169199, 2233872, 7343364, 88490184, 2709560 ####[address] [address] MCHC (RBC) [Mass/Vol] 32.8 g/dL Normal 31.4-36.0 [place] Comment on above: Performed By: #### 2 385016, 6400674, 2874130, 64304851, 4032145 ####[address] [address] MCV (RBC) [Entitic vol] 89.2 fL Normal 80.0-100.0 [facility] Comment on above: Performed By: #### 2 416114, 7473403, 6299998, 39635927, 5221448 ####[facility] [address] [place] [address] Platelet mean volume (Bld) [Entitic vol] 8.9 fL Normal 6.4-10.8 [facility] Comment on above: Performed By: #### 2 316395, 2545120, 8853652, 83659322, 2197920 ####[address] [place] [address] Platelets (Bld) [#/Vol] 197.0 E9/L Normal 150.0-500.0 [facility] Comment on above: Performed By: #### 2 766388, 8199750, 7308339, 83653122, 7119049 ####[address] [place] [address] RBC (Bld) [#/Vol] 5.2 E12/L Normal 4.3-5.9 [facility] Comment on above: Performed By: #### 2 891323, 0390290, 2669229, 12571526, 0545215 ####[address] [address] WBC corrected for nucl RBC Auto (Bld) [#/Vol] 6.4 E9/L Normal 4.0-11.0 [facility] Comment on above: Performed By: #### 2 233266, 3483318, 3803180, 20931879, 8844587 ####[address] [address] CEAon 06-27-2022 Carcinoembryonic Ag [Mass/Vol] 2.0 ng/mL Invalid Interpretation Code [facility] Comment on above: Result Comment: REFE RENCE VALUES <2.5 ng/mL (NONSMOKER) <5.0 ng/mL (SMOKER) The concentration of CEA in a given specimen determined by different manufacturers can vary due to differences in assay methods and reagent specificity. Values obtained with different assay methods cannot be used interchangeably. The methodology used to perform this test was chemiluminescence using [employer]'s Access CEA reagent. Performed By: #### 2 177760, 4399413, 2233633, 78566289, 5382662 ####[facility] [address] [place] [address] CMPon 06-27-2022 Albumin [Mass/Vol] 3.9 g/dL Normal 3.3-5.0 [facility] Comment on above: Performed By: #### 2 315766, 4955558, 9695210, 58514952, 9683876 ####[address] [address] Albumin/Globulin (S) [Mass conc ratio] 1.3 Normal 1.1-2.2 [facility] Comment on above: Performed By: #### 2 524581, 6196329, 0315739, 06871657, 5987233 ####[address] [address] ALP [Catalytic activity/Vol] 94 Int._Unit/L Normal 21-98 [facility] Comment on above: Performed By: #### 2 725960, 2840055, 4142771, 35411572, 1819210 ####[address] [address] ALT No additional P-5'-P [Catalytic activity/Vol] 29 Int._Unit/L Normal 6-46 [facility] Comment on above: Performed By: #### 2 151711, 4567842, 2533692, 22187453, 9981671 ####[address] [place] [address] Anion gap [Moles/Vol] 10 mmol/L Normal 6-16 [place] Comment on above: Performed By: #### 2 944420, 6573656, 4706644, 59362445, 1095997 ####[address] [place] [address] AST [Catalytic activity/Vol] 24 Int._Unit/L Normal 5-43 [facility] Comment on above: Performed By: #### 2 586013, 8142973, 3110204, 57593071, 4871575 ####[facility] [address] [place] [address] Bilirubin [Mass/Vol] 0.6 mg/dL Normal 0.0-1.1 [facility] Comment on above: Performed By: #### 2 691708, 1211172, 8822817, 83271552, 7585750 ####[address] [place] [address] Calcium [Mass/Vol] 9.1 mg/dL Normal 8.9-11.1 [facility] Comment on above: Performed By: #### 2 711998, 5024096, 8149892, 66554413, 6803117 ####[address] [place] [address] Chloride [Moles/Vol] 104 mmol/L Normal 101-111 [facility] Comment on above: Performed By: #### 2 554173, 1672703, 2779485, 69491868, 5298544 ####[facility] [address] [place] [address] CO2 [Moles/Vol] 28 mmol/L Normal 21-31 [facility] Comment on above: Performed By: #### 2 901558, 0203261, 5445055, 20273693, 4698729 ####[facility] [address] [place] [address] Creatinine [Mass/Vol] 1.3 mg/dL Normal 0.5-1.3 [place] Comment on above: Performed By: #### 2 822184, 5090557, 9230282, 46700390, 2704661 ####[facility] [address] [place] [address] Globulin (S) [Mass/Vol] 3.1 g/dL Normal 1.4-4.0 [facility] Comment on above: Performed By: #### 2 293252, 9645073, 0881162, 29859573, 6050163 ####[facility] [address] [place] [address] Glucose [Mass/Vol] 176 mg/dL Normal 55-199 [facility] Comment on above: Result Comment: If t his glucose result represents a fasting glucose, interpretation should refer to the following reference range: 55-99 mg/dL Performed By: #### 2 082905, 0471739, 0509379, 31313227, 3113251 ####[facility] [address] [place] [address] Potassium [Moles/Vol] 3.7 mmol/L Normal 3.5-5.3 [facility] Comment on above: Performed By: #### 2 649336, 6805003, 0881066, 07395369, 0247125 ####[facility] [address] [place] [address] Protein [Mass/Vol] 7.0 g/dL Normal 6.0-7.8 [facility] Comment on above: Performed By: #### 2 966854, 5556925, 7927193, 47465648, 3762396 ####[facility] [address] [place] [address] Sodium [Moles/Vol] 138 mmol/L Normal 135-145 [facility] Comment on above: Performed By: #### 2 119828, 3363308, 6539420, 25376264, 0787445 ####[facility] [address] [place] [address] Urea nitrogen [Mass/Vol] 15 mg/dL Normal 5-21 [facility] Comment on above: Performed By: #### 2 242022, 4315974, 5915170, 12542715, 2834738 ####[facility] [address] [place] [address] Urea nitrogen/Creatinine [Mass ratio] 12 No Units Normal 10-20 [facility] Comment on above: Performed By: #### 2 367735, 7333469, 0369732, 37615892, 1958622 ####[facility] [address] [place] [address] Consent for Treatmenton 06-11 Consent for Treatment [id number] 3050 [id number] 0CD:127 Normal [facility] Consent for Treatment [id number] 3050 [id number] 0CD:127 Normal [facility] Consent for Treatment [id number] 3050 [id number] 0CD:127 Normal [facility] Gastroenterology Office/Clin ic Noteon 06-27-2022 Gastroenterology Office/Clinic [...] well nourished, in no acute distress Head: Normocephalic/atraumat ic Lungs: Normal respiratory effort and clear to [...] day(s), # 450 cap(s), Refills(s) 3, Pharmacy: [facility]/pharmacy #6066, 167.6, cm, 06/27/22 8:28:00 EDT, Height/Length Dosing, [...] rectal cance (more content not included)... Normal [facility] Comment on above: Result Comment: Elec tronically Signed By: Cira MINER, Yusra Pickett\.br\Date and Time Signed: 06/27/22 08:50 EDT Magnesiumon 06-27-2022 Magnesium [Mass/Vol] 1.9 mg/dL Normal 1.3-2.4 [facility] Comment on above: Performed By: #### 2 148493, 2376677 ####[facility] [address] [place] [address] Oncology Progress Noteon Oncology Progress Note Patient: [...] did have uneventful hernia repair surgery in [place]. He will be going to [place] and following up with me in June. [...] list: All Problems Bloating / SNOMED CT 202962771 / Confirmed Constipation / SNOMED CT 51626037 / Confirmed Diverticulosis / SNOMED CT 4542533679 / Confirmed Acid reflux / SNOMED CT 532584026 / Confirmed Hemorrhoids / SNOMED CT 159355582 / Confirmed History of rectal cancer / SNOMED CT 2531545169 / Confirmed History of colon polyps / SNOMED CT 9772371233 / Confirmed Hypercoagulable state / SNOMED CT 868025429 / Confirmed Schatzki's ring / SNOMED CT 401245985 / Confirmed Colon polyp / SNOMED CT 797767032 / Confirmed Resolved: Change in bowel habits / SNOMED CT 869390528 Resolved: At Risk For Unstable Blood Glucose Level / IMO 9850048 Problem added due to documentation that the patient has diabetes. Resolved due to patient discharge. Resolved: Colon cancer / SNOMED CT 4672771271 Resolved: DVT - Deep vein thrombosis / SNOMED CT 6468505937 Resolved: Dysphagia / SNOMED CT 88078427 Histories Past Medical History: Resolved Colon cancer (8902720719): Resolved. DVT - Deep vein thrombosis (9511253728): Resolved. Change in bowel habits (750266465): Resolved. Dysphagia (68080157): R (more content not included)... Normal [facility] Patient Educationon 06-28-19 Patient Education Gastroenterology Constipation, [...] as fried or sweet foods. These include kiswahili fries, hamburgers, cookies, candies, and soda. ? Drink enough fluid to keep your urine pale yellow. General instructions ? Exercise regularly or as told by your health care provider. Try to do 150 minutes of moderate exercise each week. ? Use the bathroom when you have the urge to go. Do not hold it in. ? Take upuh-fhu-phmuzbm and prescription medicines only as told by [...] keep your urine pale yellow. ? Take vykd-rqm-sfhwykx and prescription medicines only as told by your health care provider. This includes any fiber supplements. This information is not intended to replace advice given to you by your health care provider. Make sure you discuss any questions you have with your health care provider. Document Revised: 12/16/2019 Document Reviewed: 12/16/2019 [employer] Patient Education ? 2022 [employer] Normal [facility] Vit B12on 06-27-2022 Cobalamin (Vitamin B12) [Mass/Vol] 338 pg/mL Normal 50-1500 [facility] Comment on above: Performed By: #### 2 371527, 0606893 ####[facility] [address] [place] [address] eGFRon 06-27-2022 GFR/1.73 sq M.predicted among non-blacks MDRD (S/P/Bld) [Vol rate/Area] 59 mL/min/1.73 m2 Normal >=59 [facility] Comment on above: Order Comment: Order added by Discern Expert. Result Comment: Electric Welder Helper lisa kidney disease could be indicated at eGFR's of less than 60 mL/min/1.73m2. Kidney failure is indicated at less than 15 mL/min/1.73m2. Performed By: #### 2 151027, 1238156, 8254283, 84543446, 7200234 ####[facility] [address] [place] [address] POCT PT/INRon 06-01-2022 POCT INR 2.1 High .7-1.2 [facility] Comment on above: Performed By: #### 2 [id number] ####[facility] [address] [place] [address] POCT PT 23.5 second(s) High 8.0-15.0 [facility] Comment on above: Performed By: #### 2 [id number] ####[facility] [address] [place] [place] [address] Ambulatory Visit Summaryon 0 05-17-2022 Ambulatory Visit [...] Colonoscopy (10/05/2021), Colonoscopy (03/02/2017), colostomy reversal, EGD (esophagogastroduodeno scopy) gastric outlet reduction. Discharge Vitals Temperature (Temporal Artery) 36.2 ?C Heart Rate (Peripheral) 71 Respiratory Rate 16 Blood Pressure 131/81 Height 167.6 cm Height 66 in Weight 94.8 kg Weight 208.56 lb BMI 33.75 What to do next Scheduled Follow-Up Appointments Saturday 9:30 AM EDT With: Where: Cardiovascular Services Saturday 8:00 AM EDT With: Yusra Denis CNP Where: [facility] Digestive Health Normal [facility] Gastroenterology Office/Clin ic Noteon 05-17-2022 Gastroenterology [...] well nourished, in no acute distress Head: Normocephalic/atraumat ic Lungs: Normal respiratory effort and clear to [...] day(s), # 450 cap(s), Refills(s) 0, Pharmacy: [facility]/pharmacy #[id number], 167.6, cm, 05/17/22 8:01:00 EDT, Height/Length Dosing, [...] and an (more content not included)... Normal [facility] Comment on above: Result Comment: Elec tronically Signed By: Yusra Denis CNP\.br\Date and Time Signed: 05/17/22 08:28 EDT Patient [...] a fiber (more content not included)... Normal [facility] Outside Recordson 05-08-2022 Outside Records [id number]#1.0 0CD:127 [facility] Outside Recordson 04-12-2022 Outside Records [id number]#1. 00CD:127 [facility] Outside Recordson 03-29-2022 Outside Records [id number]#1. 00CD:127 [facility] Outside Recordson 02-28-2022 Outside Records [id number]#1. 00CD:127 [facility] Outside Recordson 02-06-2022 Outside Records [id number]#1. 00CD:127 [facility] COAGULATIONOrdered By: Elenita Hyde on 01-09-2022 POCT INR 2.8 High 0.7 - 1.2 [facility] POCT PT 30.2 High 8 - 15 [facility] CHEMISTRYOrdered By: SYSTEM SYSTEM on 12-27-2021 Albumin [Mass/Vol] 4.0 g/dL Normal 3.3 - 5.0 gm/dL [facility] Remisol Albumin/Globulin [Mass ratio] 1.3 {ratio} Normal [...] 1 11 mmol/L [facility] CO2 [Moles/Vol] 28 mmol/L Normal 21 - 31 mmol/L [facility] Creatinine [Mass/Vol] 1.4 mg/dL High 0.5 - 1.3 mg/dL [facility] GFR/1.73 sq M.predicted among blacks MDRD (S/P/Bld) [Vol rate/Area] mL/min/1.73 m2 Normal >=59mL/min/1 .73 m2 [facility] Chem S GFR/1.73 sq M.predicted among non-blacks MDRD (S/P/Bld) [Vol rate/Area] 50 mL/min/1.73 m2 Low >=59mL/min/1 .73 m2 [facility] Chem S Globulin (S) [Mass/Vol] 3.1 g/dL Normal 1.4 - 4.0 gm/dL [facility] Glucose [Mass/Vol] 216 mg/dL High 55 - 199 mg/dL [facility] Potassium [Moles/Vol] 3.6 mmol/L Normal 3.5 - 5.3 mmol/L [facility] Protein [Mass/Vol] 7.1 g/dL Normal 6.0 - 7.8 gm/dL [facility] Sodium [Moles/Vol] 138 mmol/L Normal 135 - 145 mmol/L [facility] Urea nitrogen [Mass/Vol] 20 mg/dL Normal 5 - 21 mg/dL [facility] Urea nitrogen/Creatinine [Mass ratio] 14 mg/mg Normal 10 - 20 [facility] HEMATOLOGYOrdered By: SYSTEM SYSTEM on 12-27-2021 Basophils/100 WBC (Bld) 1.4 % Normal 0.0 - 2.0 % [facility] HemeAutoSS Basophils/Leukocytes Auto (Bld) [Pure # fraction] 0.1 E9/L Normal 0.0 - 0.2 E9/L [facility]eAuto[facility] Eosinophils/100 WBC (Bld) 0.8 % Normal 0.0 - 8.0 % [facility]eAutoSS Eosinophils/Leukocyte s Auto (Bld) [Pure # fraction] 0.1 E9/L Normal 0.0 - 0.5 E9/L [facility]eAutoSS Lymphocytes/100 WBC (Bld) 9.3 % Low 14.0 - 50.0 % [facility]eAutoSS Lymphocytes/Leukocyte s Auto (Bld) [Pure # fraction] 0.7 E9/L Low 1.0 - 4.0 E9/L [facility]eAutoSS Monocytes/100 WBC (Bld) 4.0 % Normal 4.0 - 14.0 % [facility] HemeAutoSS Monocytes/Leukocytes Auto (Bld) [Pure # fraction] 0.3 E9/L Normal 0.2 - 1.0 E9/L [facility] Neutrophils/100 WBC (Bld) 84.5 % High 36.0 - 75.0 % [facility]eAutoSS Neutrophils/Leukocyte s Auto (Bld) [Pure # fraction] 6.5 E9/L Normal 2.0 - 7.5 E9/L [facility] HEMATOLOGYOrdered By: Edda Magana on 12-27-2021 Erythrocyte distribution width (RBC) [Ratio] 14.5 % High 10.9 - 14.2 % [facility] Hematocrit (Bld) [Volume fraction] 43.0 % Normal 37.7 - 49.0 % [facility] Hemoglobin (Bld) [Mass/Vol] 15.1 g/dL Normal 13.5 - 17.5 gm/dL [facility] MCH (RBC) [Entitic mass] 29.3 pg Normal 27.0 - 34.0 pg [facility] MCHC (RBC) [Mass/Vol] 35.1 g/dL Normal 31.4 - 36.0 gm/dL [facility] MCV (RBC) [Entitic vol] 83.5 fL Normal 80.0 - 100.0 fL [facility] Platelet mean volume (Bld) [Entitic vol] 8.7 fL Normal 6.4 - 10.8 fL [facility]eAuto[facility] Platelets (Bld) [#/Vol] 228.0 E9/L Normal 150.0 - 500.0 E9/L [facility] RBC (Bld) [#/Vol] 5.2 E12/L Normal 4.3 - 5.9 E12/L [facility] WBC corrected for nucl RBC Auto (Bld) [#/Vol] 7.7 E9/L Normal 4.0 - 11.0 E9/L [facility] HemeAutoSS Covid-19 PCR ([facility])on SARS-CoV-2 (COVID-19) RNA KELLY+probe Ql (Unsp spec) Detected Critically abnormal NOT DETECTED [facility] Comment on above: Result Comment: This test is not yet approved or cleared by the [place] FDA. When there are no FDA-approved or cleared tests available, and other criteria are met, FDA can make tests available under an emergency access mechanism called an Emergency Use Authorization (EUA). The EUA for this test is supported by the Plate Straightener of Health and Human Service's (HHS's) declaration [...] longer be used). Performed By: #### C VDTBH #### [facility] [address] [place] [address] Dr. Kayli Perez INFLUENZA A AND B AGon 12-14 INFLUANEGH SEE BELOW Normal [facility] Comment on above: Result Comment: Nega tive for Flu A protein angiten. Infection due to Flu A cannot be ruled out. Flu A angiten in the sample may be below the detection limit of the test. Performed By: #### I NFLUAB #### [facility] [address] [place] [address] Dr. Kayli Perez INFLUBNEG SEE BELOW Normal [facility] Comment on above: Result Comment: Nega tive for Flu B protein antigen. Infection due to Flu B cannot be ruled out. Flu B antigen in the sample may be below the detection limit of the test. Performed By: #### I NFLUAB #### [facility] [address] [place] [address] Dr. Kayli Perez INFLUENZA A AG Negative Normal NEGATIVE SEE COMMENT [facility] Comment on above: Performed By: #### I NFLUAB #### [facility] [address] [place] [address] Dr. Kayli Perez INFLUENZA B AG Negative Normal NEGATIVE SEE COMMENT [facility] Comment on above: Performed By: #### I NFLUAB #### [facility] [address] [place] [address] Dr. Kayli Perez INTERNAL CONTROLS Within Normal Limits Normal Wi thin Normal Limits [facility] Comment on above: Performed By: #### I NFLUAB #### [facility] [address] [place] [address] Dr. Kayli Perez CHEMISTRYOrdered By: Christina Haines on 11-28-2021 INR POC FT 2.5 [facility] PT POC FT 30.3 s High 10.8 - 13.6 second(s) [facility] CHEMISTRYOrdered By: Praisa Hyde on 10-13-2021 INR POC FT 2.4 [facility] PT POC FT 28.9 s High 10.8 - 13.6 second(s) [facility] CHEMISTRYOrdered By: Shayy Cain on 10-03-2021 INR POC FT 2.6 [facility] PT POC FT 31.6 s High 10.8 - 13.6 second(s) [facility] CHEMISTRYOrdered By: SYSTEM SYSTEM on 06-23-2021 Albumin [Mass/Vol] 3.8 g/dL Normal 3.3 - 5.0 gm/dL [facility] Rem[facility] Albumin/Globulin [Mass ratio] 1.3 {ratio} Normal [...] MDRD (S/P/Bld) [Vol rate/Area] mL/min/1.73 m2 Normal >=59mL/min/1 .73 m2 [facility] Chem S GFR/1.73 sq M.predicted among non-blacks MDRD (S/P/Bld) [Vol rate/Area] 60 mL/min/1.73 m2 Normal >=59mL/min/1 .73 m2 [facility] S Globulin (S) [Mass/Vol] [...] [Mass/Vol] 14 mg/dL Normal 5 - 21 mg/dL [facility] Urea nitrogen/Creatinine [Mass ratio] 12 mg/mg Normal 10 - 20 [facility] HEMATOLOGYOrdered By: SYSTEM SYSTEM on 06-23-2021 Basophils/100 WBC (Bld) 0.3 % Normal 0.0 - 2.0 % [facility]eAutoSS Basophils/Leukocytes Auto (Bld) [Pure # fraction] 0.0 E9/L Normal 0.0 - 0.2 E9/L [facility] Eosinophils/100 WBC (Bld) 2.0 % Normal 0.0 - 8.0 % [facility] Eosinophils/Leukocyte s Auto (Bld) [Pure # fraction] 0.1 E9/L Normal 0.0 - 0.5 E9/L [facility] Lymphocytes/100 WBC (Bld) 13.1 % Low 14.0 - 50.0 % [facility]eAutoSS Lymphocytes/Leukocyte s Auto (Bld) [Pure # fraction] 0.8 E9/L Low 1.0 - 4.0 E9/L [facility] Monocytes/100 WBC (Bld) 7.7 % Normal 4.0 - 14.0 % [facility] Monocytes/Leukocytes Auto (Bld) [Pure # fraction] 0.5 E9/L Normal 0.2 - 1.0 E9/L [facility] Neutrophils/100 WBC (Bld) 76.9 % High 36.0 - 75.0 % [facility] Neutrophils/Leukocyte s Auto (Bld) [Pure # fraction] 4.8 E9/L Normal 2.0 - 7.5 E9/L [facility] HEMATOLOGYOrdered By: Tracie Cool on 06-23-2021 Erythrocyte distribution width (RBC) [Ratio] 14.5 % High 10.9 - 14.2 % [facility] Hematocrit (Bld) [Volume fraction] 42.2 % Normal 37.7 - 49.0 % [facility] Hemoglobin (Bld) [Mass/Vol] 14.5 g/dL Normal 13.5 - 17.5 gm/dL [facility] MCH (RBC) [Entitic mass] 29.6 pg Normal 27.0 - 34.0 pg [facility] MCHC (RBC) [Mass/Vol] 34.5 g/dL Normal 31.4 - 36.0 gm/dL [facility] MCV (RBC) [Entitic vol] 85.9 fL Normal 80.0 - 100.0 fL [facility] Platelet mean volume (Bld) [Entitic vol] 9.2 fL Normal 6.4 - 10.8 fL [facility] Platelets (Bld) [#/Vol] 196.0 E9/L Normal 150.0 - 500.0 E9/L [facility] RBC (Bld) [#/Vol] 4.9 E12/L Normal 4.3 - 5.9 E12/L [facility] WBC corrected for nucl RBC Auto (Bld) [#/Vol] 6.3 E9/L Normal 4.0 - 11.0 E9/L [facility] CHEMISTRYOrdered By: SYSTEM SYSTEM on 06-14-2021 Albumin [Mass/Vol] 3.9 g/dL Normal 3.3 - 5.0 gm/dL [facility] Remisol Albumin/Globulin [Mass ratio] 1.4 {ratio} Normal [...] MDRD (S/P/Bld) [Vol rate/Area] mL/min/1.73 m2 Normal >=59mL/min/1 .73 m2 [facility] S GFR/1.73 sq M.predicted among non-blacks MDRD (S/P/Bld) [Vol rate/Area] 50 mL/min/1.73 m2 Low >=59mL/min/1 .73 m2 [facility] S Globulin (S) [Mass/Vol] [...] [Mass/Vol] 15 mg/dL Normal 5 - 21 mg/dL [facility] Urea nitrogen/Creatinine [Mass ratio] 11 mg/mg Normal 10 - 20 [facility] HEMATOLOGYOrdered By: SYSTEM SYSTEM on 06-14-2021 Basophils/100 WBC (Bld) 0.3 % Normal 0.0 - 2.0 % [facility]Auto[facility] Basophils/Leukocytes Auto (Bld) [Pure # fraction] 0.0 E9/L Normal 0.0 - 0.2 E9/L [facility] Eosinophils/100 WBC (Bld) 1.2 % Normal 0.0 - 8.0 % [facility] Eosinophils/Leukocyte s Auto (Bld) [Pure # fraction] 0.1 E9/L Normal 0.0 - 0.5 E9/L [facility] Lymphocytes/100 WBC (Bld) 12.6 % Low 14.0 - 50.0 % [facility] Lymphocytes/Leukocyte s Auto (Bld) [Pure # fraction] 0.8 E9/L Low 1.0 - 4.0 E9/L [facility] Monocytes/100 WBC (Bld) 6.9 % Normal 4.0 - 14.0 % [facility]eAuto[facility] Monocytes/Leukocytes Auto (Bld) [Pure # fraction] 0.4 E9/L Normal 0.2 - 1.0 E9/L [facility] Neutrophils/100 WBC (Bld) 79.0 % High 36.0 - 75.0 % [facility] Neutrophils/Leukocyte s Auto (Bld) [Pure # fraction] 4.8 E9/L Normal 2.0 - 7.5 E9/L [facility] HEMATOLOGYOrdered By: Chen Kong on 06-14-2021 Erythrocyte distribution width (RBC) [Ratio] 14.7 % High 10.9 - 14.2 % [facility] Hematocrit (Bld) [Volume fraction] 42.5 % Normal 37.7 - 49.0 % [facility] Hemoglobin (Bld) [Mass/Vol] 14.7 g/dL Normal 13.5 - 17.5 gm/dL [facility] MCH (RBC) [Entitic mass] 29.8 pg Normal 27.0 - 34.0 pg [facility] MCHC (RBC) [Mass/Vol] 34.5 g/dL Normal 31.4 - 36.0 gm/dL [facility] MCV (RBC) [Entitic vol] 86.5 fL Normal 80.0 - 100.0 fL [facility] Platelet mean volume (Bld) [Entitic vol] 9.0 fL Normal 6.4 - 10.8 fL [facility] Platelets (Bld) [#/Vol] 189.0 E9/L Normal 150.0 - 500.0 E9/L [facility] RBC (Bld) [#/Vol] 4.9 E12/L Normal 4.3 - 5.9 E12/L [facility] WBC corrected for nucl RBC Auto (Bld) [#/Vol] 6.1 E9/L Normal 4.0 - 11.0 E9/L [facility] CNPBriana 12-20-2020 ISIDRAN Telephone (RAIZA) SHAD RODRIGUEZ ([id number]) 1950 M Date Time Provider Department 12/20/20 [...] Date Reviewed: 09/05/2020 Reviewed by: Cydney Koch APRN.FAST FOOD RESTAURANT MANAGER - Fully Assessed Reason for Visit: Patient [...] Encounter Status:Closed by NANCI FUNES on 12/20/20 [facility] CNOVon 09-05-2020 CNOV Office Visit (GENN ) SHAD RODRIGUEZ ([id number]) 1950 M Date Time Provider Department 09/05/20 11:00 AM CYDNEY KOCH During your visit today, we recorded the following information about you: Temperature Pulse Blood pressure Weight 97.7 degrees 77/minute 139/84 86.3 kg Height 1.702 m [place] 09/05/2020 11:04 AM Signed What is the reason for your visit today? Post op Who is your referring physician? Dr. Amaya Are you having poor oral intake? NO Have you had unintentional weight loss of 15 lbs/7 Kg in the last 3-6 months? NO Bowels: regular Wound: clean AND dry Temperature: No Drains: No Cydney Koch APRN.CNP 09/05/2020 11:19 AM Signed [facility] Clinic Date: 09/05/2020 Shad [...] needed. Randomized control trial: RINSE/FIXATION Cydney Koch APRN.FAST FOOD RESTAURANT MANAGER September 04, (more content not included)... Normal [facility] ALLIED HEALTHon 08-19-2020 ALLIED HEALTH HNO ID: [id number] Author: Chaplain Rosa Service: Spiritual Care Author [...] ended by prayer at the pt's request. Recreational Counselor Signature: Chaplain ROSA To contact the Spiritual Care Department: Please call [phone] or Page the On-Call Recreational Counselor at pager [phone] Thank you for the opportunity to be of service. This is an electronically created document. IF PRINTED, PLEASE DO NOT REMOVE FROM THE CHART OR MODIFY PRINTED COPY. Normal [facility] Basic Metabolic Panlon 08-19 Anion gap [Moles/Vol] 9 mmol/L Normal 9-18 [facility] Comment on above: Performed By: #### P T, MG1, PHOS, BMP ####[facility] [place] [phone] Calcium [Mass/Vol] 8.9 mg/dL Normal 8.5-10.2 [facility] Comment on above: Performed By: #### P T, MG1, PHOS, BMP ####[place] [address] [place], [place] [phone] Chloride [Moles/Vol] 100 mmol/L Normal 97-105 [place] Comment on above: Performed By: #### P T, MG1, PHOS, BMP ####[place] [address] [place], [place] [phone] CO2 [Moles/Vol] 25 mmol/L Normal 22-30 [facility] Comment on above: Performed By: #### P T, MG1, PHOS, BMP ####[place] [address] [place], [place] [phone] Creatinine [Mass/Vol] 1.13 mg/dL Normal 0.73-1.22 [facility] Comment on above: Performed By: #### P T, MG1, PHOS, BMP ####[facility], [place] [phone] eGFR- Amer. >60 Normal [facility] Comment on above: Performed By: #### P T, MG1, PHOS, BMP ####[facility] [place], [place] [phone] eGFR-All Other Races >60 Normal [place] Comment on above: Result Comment: eGFR (Estimated [...] reflect actual GFR. Performed By: #### P T, MG1, PHOS BMP ####[facility] [place], [place] [phone] Glucose [Mass/Vol] 117 mg/dL High 74-99 [facility] Comment on above: Result Comment: The [place] Diabetes Association (ADA) provides guidance for cutoff [...] Standards of Medical Care in Diabetes 2016, [place] [employer]. Diabetes Care. 2016.39(Suppl 1). Performed By: #### P T, MG1, PHOS, BMP ####[facility] [address] [place], [place] [phone] Potassium [Moles/Vol] 4.2 mmol/L Normal 3.7-5.1 [facility] Comment on above: Performed By: #### P T, MG1 PHOS, BMP ####[facility] [address] [place], [place] [phone] Sodium [Moles/Vol] 134 mmol/L Low 136-144 [facility] Comment on above: Performed By: #### P T, MG1, PHOS, BMP ####[facility] [address] [place], [place] [phone] Urea nitrogen [Mass/Vol] 21 mg/dL Normal 9-24 [facility] Comment on above: Performed By: #### P T, MG1, PHOS, BMP ####[facility] [address] [place], [place] [phone] CASE MANAGEMon 08-19-2020 CASE MANAGEM HNO ID: [id number] Author: Rosaline Keating, ALYSSA Service: Case Management Author Type: Registered Nurse Type: Care Mgt Progress Note Filed: 08/19/2020 10:15 AM Note Text: CARE MANAGEMENT PROGRESS NOTE SERVICE DATE: 08/19/2020 SERVICE TIME: 10:00 AM LOS: 7 days Admission Date: 08/12/2020 DISCHARGE ARRANGEMENT Discharge Arrangement: group home facility Was an expedited discharge program used?: No CAREGIVER ASSESSMENT: Caregiver is ready, willing and able to meet the patient's needs as recommended by the inter-professional team:: Yes Does the patient have an acute stroke diagnosis, or has the patient had a stroke during this admission?: No Patient's transition needs and plan for meeting these needs: SNF [facility] HANDOFF COMMUNICATION: Handoff to: Other Caregiver Other Caregiver Name/Phone: Cynthia Aguila CNP summary of care sent . [facility] [place] ([place] ) p# [phone] and via [employer] TRANSPORTATION ARRANGEMENTS: Transportation Arrangements: Car Discharge Information Row Name Admission (Current) from 08/12/2020 in [place] [address] Assisted Facility Agency [facility] Needs Prior to Discharge: Ready for Discharge Patient d/c ready to [facility] . Patient to transport via car with family/friend .Patient aware of plan. Bedside RN aware of plan and provided number to call report [phone] CM spoke with nursing techn and updated on plan of care, confirmed facility ready for the patient arrival today p# [phone]. 7000 and DC instructions sent to [facility] via [employer] and are in DC packet. DC packet in chart to go with patient. SIGNATURE: Rosaline Keating RN PATIENT NAME: Shad Rodriguez DATE: August 19, 2020 TIME: 9:59 AM PAGER/CONTACT #: [phone] Normal [facility] Magnesiumon 08-19-2020 Magnesium [Mass/Vol] 2.1 mg/dL Normal 1.7-2.3 [place] Comment on above: Performed By: #### P T, MG1, PHOS, BMP ####[facility] [address], [place] [phone] Phosphoruson 08-19-2020 Phosphate [Mass/Vol] 3.4 mg/dL Normal 2.7-4.8 [place] Comment on above: Performed By: #### P T, MG1, PHOS, BMP ####[facility] [address], [place] [phone] Protimeon 08-19-2020 PT INR 1.2 Normal 0.9-1.3 [facility] Comment on above: Result Comment: Alexandra min K Antagonist (VKA) Therapeutic Range: INR 2 to 3 (Target INR of 2.5) Note: For patients treated with VKA drugs, such as warfarin, the [place] College [employer] Chest Physicians 2012 Guideline recommends [...] to 3.5 (target INR of 3). Tuan LIZARRAGA, et al. Chest 2012, 141:7S-47S Apryl NEAL et al. [facility] 2017, 70: 252-289 Performed By: #### P T, MG1, PHOS, BMP ####[facility] [address] [phone] PT Sec 12.3 sec Normal 9.7-13.0 [facility] Comment on above: Performed By: #### P T, MG1, PHOS, BMP ####[address] [phone] Basic Metabolic Panlon 08-18 Anion gap [Moles/Vol] 9 mmol/L Normal 9-18 [facility] Comment on above: Performed By: #### B MP, MG1, PHOS, CBC, PT ####[place] [phone] Calcium [Mass/Vol] 9.0 mg/dL Normal 8.5-10.2 [facility] Comment on above: Performed By: #### B MP, MG1, PHOS, CBC, PT ####[place] [phone] Chloride [Moles/Vol] 100 mmol/L Normal 97-105 [place] Comment on above: Performed By: #### B MP, MG1, PHOS, CBC, PT ####[place] [phone] CO2 [Moles/Vol] 27 mmol/L Normal 22-30 [facility] Comment on above: Performed By: #### B MP, MG1, PHOS, CBC, PT ####[address] [phone] Creatinine [Mass/Vol] 1.10 mg/dL Normal 0.73-1.22 [facility] Comment on above: Performed By: #### B MP, MG1, PHOS, CBC, PT ####[place] [phone] eGFR- Amer. >60 Normal [facility] Comment on above: Performed By: #### B MP, MG1, PHOS, CBC, PT ####[facility] [place], [place] [phone] eGFR-All Other Races >60 Normal [place] Comment on above: Result Comment: eGFR (Estimated [...] #### B MP, MG1, PHOS, CBC, PT ####[address] [phone] Glucose [Mass/Vol] 119 mg/dL High 74-99 [facility] Comment on above: Result Comment: The [place] Diabetes Association (ADA) provides guidance for cutoff [...] Standards of Medical Care in Diabetes 2016, [place] Diabetes Association. Diabetes Care. 2016.39(Suppl 1). Performed By: #### B MP, MG1, PHOS, CBC, PT ####[facility] [place], [place] [phone] Potassium [Moles/Vol] 4.0 mmol/L Normal 3.7-5.1 [facility] Comment on above: Performed By: #### B MP, MG1, PHOS, CBC, PT ####[facility] [address] [place], [place] [phone] Sodium [Moles/Vol] 136 mmol/L Normal 136-144 [facility] Comment on above: Performed By: #### B MP, MG1, PHOS, CBC, PT ####[facility] [address] [place], [place] [phone] Urea nitrogen [Mass/Vol] 22 mg/dL Normal 9-24 [facility] Comment on above: Performed By: #### B MP, MG1, PHOS, CBC, PT ####[facility] [address] [place], [place] [phone] CASE MGT INIT ASSESon 2020 CASE MGT INIT [facility] HNO ID: [id number] Author: Rosaline Keating RN Service: Case Management Author Type: Registered Nurse Type: Care Mgt Initial Assessment Filed: 08/18/2020 3:53 PM Note Text: CARE MANAGEMENT PROGRESS NOTE SERVICE DATE: 08/18/2020 SERVICE TIME: 10:36 AM LOS: 6 days Needs Prior to Discharge: Discharge Transportation CM UPDATE Per Primary Team DC anticipated tomorrow Accepting SNF facility [facility] . CM sent updated clinicals via [employer]. CM spoke with [place] in admitting who confirms they have bed available for patient to admit . requested 7000 to be completed , [facility] Nurse report number provided : [phone]. Ask for 200 gr nurse Patient request to transport with family/friends via car. Facility confirmed the patient can arrive via car. Patient transportation arranged for 10 AM tomorrow. SIGNATURE: Rosaline Keating RN PATIENT NAME: Shad Rodriguez DATE: August 18, 2020 TIME: 10:36 AM PAGER/CONTACT #: [phone] Normal [facility] CBCon 08-18-2020 Absolute nRBC <0.01 Normal <0.01 [facility] Comment on above: Performed By: #### B MP, MG1, PHOS, CBC, PT ####[facility] [place] [phone] Erythrocyte distribution width (RBC) [Ratio] 13.5 % Normal 11.5-15.0 [facility] Comment on above: Performed By: #### B MP, MG1, PHOS, CBC, PT ####[place] [id number] [phone] Hematocrit (Bld) [Volume fraction] 42.3 % Normal 39.0-51.0 [facility] Comment on above: Performed By: #### B MP, MG1, PHOS, CBC, PT ####[place] [address] [phone] Hemoglobin (Bld) [Mass/Vol] 13.5 g/dL Normal 13.0-17.0 [facility] Comment on above: Performed By: #### B MP, MG1, PHOS, CBC, PT ####[place] [address] [address] [place] [phone] MCH 28.3 pG Normal 26.0-34.0 [facility] Comment on above: Performed By: #### B MP, MG1, PHOS, CBC, PT ####[place] [address] [address] [phone] MCHC (RBC) [Mass/Vol] 31.9 g/dL Normal 30.5-36.0 [facility] Comment on above: Performed By: #### B MP, MG1, PHOS, CBC, PT ####[facility]ClevelandJessica [place] [phone] MCV (RBC) [Entitic vol] 88.7 fL Normal 80.0-100.0 [facility] Comment on above: Performed By: #### B MP, MG1, PHOS, CBC, PT ####[place] [address] AveClevelKevin [place] [phone] Platelet mean volume (Bld) [Entitic vol] 10.2 fL Normal 9.0-12.7 [facility] Comment on above: Performed By: #### B MP, MG1, PHOS, CBC, PT ####[address] [phone] Platelets (Bld) [#/Vol] 219 10*3/uL Normal 150-400 [facility] Comment on above: Performed By: #### B MP, MG1, PHOS, CBC, PT ####[address] [phone] RBC (Bld) [#/Vol] 4.77 10*6/uL Normal 4.20-6.00 [facility] Comment on above: Performed By: #### B MP, MG1, PHOS, CBC, PT ####[address] [phone] WBC (Bld) [#/Vol] 6.07 10*3/uL Normal 3.70-11.00 [facility] Comment on above: Performed By: #### B MP, MG1, PHOS, CBC, PT ####[address] [phone] Magnesiumon 08-18-2020 Magnesium [Mass/Vol] 2.2 mg/dL Normal 1.7-2.3 [place] Comment on above: Performed By: #### B MP, MG1, PHOS, CBC, PT ####[address] [phone] NUTRITIONon 08-18-2020 NUTRITION HNO ID: [id number] Author: Sandra Katz DTR Service: Nutrition Therapy Author Type: Concrete Crusher Loader Operator Type: Nutrition Filed: 08/18/2020 1:49 PM Note Text: NUTRITION THERAPY EMERGENCY CREW SUPERVISOR NOTE SERVICE DATE: 08/18/2020 SERVICE TIME: 950 [...] min Number of Increments: 1 SIGNATURE: Sandra Katz DTR PATIENT NAME: Shad Rodriguez DATE: August 18, 2020 TIME: 1:49 PM PAGER: [phone] Normal [facility] Phosphoruson 08-18-2020 Phosphate [Mass/Vol] 3.5 mg/dL Normal 2.7-4.8 [place] Comment on above: Performed By: #### B MP, MG1, PHOS, CBC, PT ####[facility] [address] [place], [place] [phone] Protimeon 08-18-2020 PT INR 1.0 Normal 0.9-1.3 [facility] Comment on above: Result Comment: Alexandra min K Antagonist (VKA) Therapeutic Range: INR 2 to 3 (Target INR of 2.5) Note: For patients treated with VKA drugs, such as warfarin, the [place] [employer] 2012 Guideline recommends [...] Chest 2012, 141:7S-47S Apryl RA, et al. [facility] 2017, 70: 252-289 Performed By: #### B MP, MG1, PHOS, CBC, PT ####[facility] [place], [place] [phone] PT Sec 11.2 sec Normal 9.7-13.0 [facility] Comment on above: Performed By: #### B MP, MG1, PHOS, CBC, PT ####[facility] [address] [place], [place] [phone] THERAPY NTon 08-18-2020 THERAPY NT HNO ID: [id number] Author: Greg Gonzalez, PT Service: Physical Therapy Author Type: Physical Therapist Type: Therapy (PT/OT/Speech/Resp) Filed: 08/18/2020 4:05 PM Note Text: Physical Therapy Treatment SERVICE DATE: 08/18/2020 SERVICE TIME: 1526 to 1549 ROOM: [place] [address] Recommended Discharge Disposition: Outpatient Physical Therapy Recommended Discharge Disposition Comments: . 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 Anticipated Discharge Needs: Physical Assist at Home Physical Assist at Home for: Cleaning;Laundry;Meals ;Stairs;Self Care;Shopping;Transpor tation Recommended Discharge Equipment: To Be Determined PT 6 Clicks Score: 24 Precautions/Activity Restrictions: Fall Risk;Lines/Tubes/Drain s;Abdominal Current Hospital Course: s/p TAR for ventral [...] Education;Self Care / Home Management;Energy Conservation Training;Joint Mobility;Strengthening ;Functional Mobility Training;Balance Training;Neuromuscular Re-education;Pain Management Home Environment Patient Lives With: (pt planning to move into assisted living facility ) Assistance Available: PRN Entry To Home: Stairs;With Rail Number Of Stairs Into Home: 2 Number Of Stairs To Bed/Bath: 0 Tub/Shower Type: walk-in 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 Functional Level: Within Functional Limits Prior [...] Blank pérez indicate activity not attempted General Deviations/Observation s: Antalgic gait;Flexed trunk posture -HLM: 8: Walk 250 feet or more Learning/Educational Needs: Discharge Plan;Disease Process;Equipment;Fami ly Education/Training;Fun ctional Activities/Mobility;Pa in Management;Plan of Care;Precautions;Rehab ilitation Techniques and Procedures;Respiratory Function;Safety Goals for Plan [...] Diagnosis: Reduced mobility-other Interventions Provided: Therapeutic Activity (51508);Therapeutic Exercise (69579) Therapeutic Exercise (05499) Treatment Minutes: 10 $ Therapeutic Exercise (46513) Billed Units: 1 unit Therapeutic Activity (41695) Treatment Minutes: 13 $ Therapeutic Activity (04744) Billed Units: 1 unit Training AND education provided in: Assistive device use, Bed mobility, Benefits of in-hospital mobility, Discharge planning, Disease specific education, Expected functional level, Gait pattern, reduction of deviations, Positioning, Precautions/restrictio ns, Transfers The following therapeutic skills were used: Activity dosing, Cues for sequencing/proper technique for activity Total Timed Code Treatment Minutes: 23 Total Treatment Time (minutes): 23 Please see discipline specific clinical documentation flowsheet for complete details for this therapy evaluation/treatment. SIGNATURE: Greg Gonzalez, PT PATIENT NAME: Shad Rodriguez DATE: August 18, 2020 TIME: 4:05 PM Normal [facility] Basic Metabolic Panlon 08-17 Anion gap [Moles/Vol] 10 mmol/L Normal 9-18 [facility] Comment on above: Performed By: #### B MP, MG1, CBC, PHOS ####[facility] [address] [place], [place] [phone] Calcium [Mass/Vol] 9.0 mg/dL Normal 8.5-10.2 [facility] Comment on above: Performed By: #### B MP, MG1, CBC, PHOS ####[facility] [address] [place], [place] [phone] Chloride [Moles/Vol] 96 mmol/L Low 97-105 [place] Comment on above: Performed By: #### B MP, MG1, CBC, PHOS ####[facility] [address] AvFrank[place], [place] [phone] CO2 [Moles/Vol] 27 mmol/L Normal 22-30 [facility] Comment on above: Performed By: #### B MP, MG1, CBC, PHOS ####[facility] [address] [place], [place] [phone] Creatinine [Mass/Vol] 1.15 mg/dL Normal 0.73-1.22 [facility] Comment on above: Performed By: #### B MP, MG1, CBC, PHOS ####[facility] [address] [place], [place] [phone] eGFR- Amer. >60 Normal [facility] Comment on above: Performed By: #### B MP, MG1, CBC, PHOS ####[facility] [address] [place], [place] [phone] eGFR-All Other Races >60 Normal [place] Comment on above: Result Comment: eGFR (Estimated [...] By: #### B MP, MG1, CBC, PHOS ####[facility] [address] [place], [place] [phone] Glucose [Mass/Vol] 134 mg/dL High 74-99 [facility] Comment on above: Result Comment: The [place] Diabetes Association (ADA) provides guidance for cutoff [...] Standards of Medical Care in Diabetes 2016, [place] [employer]. Diabetes Care. 2016.39(Suppl 1). Performed By: #### B MP, MG1, CBC, PHOS ####[facility] [address], [place] [phone] Potassium [Moles/Vol] 4.0 mmol/L Normal 3.7-5.1 [facility] Comment on above: Performed By: #### B MP, MG1, CBC, PHOS ####[facility] [place], [place] [phone] Sodium [Moles/Vol] 133 mmol/L Low 136-144 [facility] Comment on above: Performed By: #### B MP, MG1, CBC, PHOS ####[place] [address] [place], [place] [phone] Urea nitrogen [Mass/Vol] 20 mg/dL Normal 9-24 [facility] Comment on above: Performed By: #### B MP, MG1, CBC, PHOS ####[address] [phone] CASE MGT INIT ASSESon 2020 CASE MGT INIT [facility] HNO ID: [id number] Author: Rosaline Keating RN Service: Case Management Author Type: Registered Nurse Type: Care Mgt Initial Assessment Filed: 08/17/2020 12:20 PM Note Text: CARE MANAGEMENT PROGRESS NOTE SERVICE DATE: 08/17/2020 SERVICE TIME: 12:17 PM LOS: 5 days Needs Prior to Discharge: Other: See Comment (medical janiya) CM UPDATE Accepting SNF [facility], [facility] , patient requested facility of choice. CM awaiting review of DIPSO. CM will continue to follow for DC planning. SIGNATURE: Rosaline Keating RN PATIENT NAME: Shad Rodriguez DATE: August 17, 2020 TIME: 12:16 PM PAGER/CONTACT #: [phone] Normal [facility] CBCon 08-17-2020 Absolute nRBC <0.01 Normal <0.01 [facility] Comment on above: Performed By: #### B MP, MG1, CBC, PHOS ####[facility] [address] AveCPoint [place], [place] [phone] Erythrocyte distribution width (RBC) [Ratio] 13.7 % Normal 11.5-15.0 [facility] Comment on above: Performed By: #### B MP, MG1, CBC, PHOS ####[place] [address] [place], [place] [phone] Hematocrit (Bld) [Volume fraction] 40.9 % Normal 39.0-51.0 [facility] Comment on above: Performed By: #### B MP, MG1, CBC, PHOS ####[place] [address] [place], [place] [phone] Hemoglobin (Bld) [Mass/Vol] 13.5 g/dL Normal 13.0-17.0 [facility] Comment on above: Performed By: #### B MP, MG1, CBC, PHOS ####[place] [address] [place], [place] [phone] MCH 28.9 pG Normal 26.0-34.0 [facility] Comment on above: Performed By: #### B MP, MG1, CBC, PHOS ####[place] [address] [place], [place] [phone] MCHC (RBC) [Mass/Vol] 33.0 g/dL Normal 30.5-36.0 [facility] Comment on above: Performed By: #### B MP, MG1, CBC, PHOS ####[place] [address] AveCPoint [place], [place] [phone] MCV (RBC) [Entitic vol] 87.6 fL Normal 80.0-100.0 [facility] Comment on above: Performed By: #### B MP, MG1, CBC, PHOS ####[place] [address] [place], [place] [phone] Platelet mean volume (Bld) [Entitic vol] 10.5 fL Normal 9.0-12.7 [facility] Comment on above: Performed By: #### B MP, MG1, CBC, PHOS ####[address] [phone] Platelets (Bld) [#/Vol] 210 10*3/uL Normal 150-400 [facility] Comment on above: Performed By: #### B MP, MG1, CBC, PHOS ####[address] [phone] RBC (Bld) [#/Vol] 4.67 10*6/uL Normal 4.20-6.00 [facility] Comment on above: Performed By: #### B MP, MG1, CBC, PHOS ####[address] [phone] WBC (Bld) [#/Vol] 6.51 10*3/uL Normal 3.70-11.00 [facility] Comment on above: Performed By: #### B MP, MG1, CBC, PHOS ####[address] [phone] Magnesiumon 08-17-2020 Magnesium [Mass/Vol] 2.1 mg/dL Normal 1.7-2.3 [place] Comment on above: Performed By: #### B MP, MG1, CBC, PHOS ####[address] [phone] NURSING PROGon 08-17-2020 NURSING PROG HNO ID: [id number] Author: Dahlia Doss RN Service: ? Author Type: Registered Nurse Type: Nursing Progress Note Filed: 08/17/2020 6:21 PM Note Text: Nursing Progress Note Patient Name: Shad Rodriguez Patient Location: H051 001/H051-02 __ Daily Note: 1640: this nurse contacted pharmacy [...] stable condition will continue to monitor. 1700: MD contacted this nurse who stated that warfarin was ok to give without INR being drawn today, This note was completed by: Dahlia Doss Normal [facility] Phosphoruson 08-17-2020 Phosphate [Mass/Vol] 3.0 mg/dL Normal 2.7-4.8 [place] Comment on above: Performed By: #### B MP, MG1, CBC, PHOS ####[address] [phone] Basic Metabolic Panlon 08-16 Anion gap [Moles/Vol] 11 mmol/L Normal 9-18 [facility] Comment on above: Performed By: #### P HOS, CBC, MG1, BMP ####[facility] [place], [place] [phone] Calcium [Mass/Vol] 9.2 mg/dL Normal 8.5-10.2 [facility] Comment on above: Performed By: #### P HOS, CBC, MG1, BMP ####[facility] [place], [place] [phone] Chloride [Moles/Vol] 100 mmol/L Normal 97-105 [place] Comment on above: Performed By: #### P HOS, CBC, MG1, BMP ####[place] [address] [place], [place] [phone] CO2 [Moles/Vol] 26 mmol/L Normal 22-30 [facility] Comment on above: Performed By: #### P HOS, CBC, MG1, BMP ####[facility] [place], [place] [phone] Creatinine [Mass/Vol] 1.02 mg/dL Normal 0.73-1.22 [facility] Comment on above: Performed By: #### P HOS, CBC, MG1, BMP ####[facility] [place], [place] [phone] eGFR- Amer. >60 Normal [facility] Comment on above: Performed By: #### P HOS, CBC, MG1, BMP ####[facility] [place], [place] [phone] eGFR-All Other Races >60 Normal [place] Comment on above: Result Comment: eGFR (Estimated [...] By: #### P HOS, CBC, MG1, BMP ####[facility] [place], [place] [phone] Glucose [Mass/Vol] 126 mg/dL High 74-99 [facility] Comment on above: Result Comment: The [place] Diabetes Association (ADA) provides guidance for cutoff [...] Standards of Medical Care in Diabetes 2016, [place] [employer]. Diabetes Care. 2016.39(Suppl 1). Performed By: #### P HOS, CBC, MG1, BMP ####[facility] [address] [place], [place] [phone] Potassium [Moles/Vol] 4.4 mmol/L Normal 3.7-5.1 [facility] Comment on above: Performed By: #### P HOS, CBC, MG1, BMP ####[facility] [place], [place] [phone] Sodium [Moles/Vol] 137 mmol/L Normal 136-144 [facility] Comment on above: Performed By: #### P HOS, CBC, MG1, BMP ####[facility] [place], [place] [phone] Urea nitrogen [Mass/Vol] 16 mg/dL Normal 9-24 [facility] Comment on above: Performed By: #### P HOS, CBC, MG1, BMP ####[facility] [address] [place], [place] [phone] CASE MGT INIT ANABELLA 2020 CASE MGT INIT ANABELLA HNO ID: [id number] Author: Rosaline Keating RN Service: Case Management Author Type: Registered Nurse Type: Care Mgt Initial Assessment Filed: 08/16/2020 5:34 PM Note Text: CARE MANAGEMENT: ASSESSMENT AND DISCHARGE PLAN SERVICE DATE: August 16, 2020 SERVICE TIME: 5:29 PM PRIMARY CARE PHYSICIAN: Cynthia Aguila CNP, FAST FOOD RESTAURANT MANAGER ADMISSION STATUS: Inpatient Needs Prior to Discharge: Accepting Facility MEDICAL: MEDICARE A AND B 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 Last discharge within 30 days: No Advance Directive: Current Advance Directive: Health Care Power of Ribbing Machine Operator In Chart: Yes Up To Date and [...] None Has the Patient Been in a Assisted Facility in the Past 30 days?: No SOCIAL: Living Arrangements: Home Lives With: Alone Financial Resources: Employed Primary Contact: Extended Emergency Contact Information Primary Emergency Contact: Enzo Hernandez Mobile Relation: Brother Supportive Patient Contact:: Yes Contact Resources: Family Family Name/Phone: Enzo Hernandez ( brother , lives in [place], [place] ) [phone] Caregiver AssessmentCaregiver is ready, willing and able [...] Mostly I feel financially burdened by my hcs-zy-mrdvlp expenses for my prescription medication:: 0 - Disagree Mostly Risk Score: 0 Patient is categorized as: Low risk < 2 Are you interested in bedside delivery of your medications? No Is Patient Psychosocially Complex?: No ASSESSMENT AND PLAN: Medical Needs: Medical Needs: Two or more chronic diseases Psychosocial Needs: Psychosocial Needs: None FREEDOM OF CHOICE EXPLAINED: [place] of Choice Given: Yes Level of Care Discussed: Assisted Facility Financial Disclosure Provided: Yes Financial Disclosure Comments: Patient Provider List: Assisted Facility Provider list within the patient's requested geographic area shared with the patient/family: Yes within: 25 miles of [place] code: [address] Quality and resource use metrics shared with the patient that are relevant to the patient's goals of care and treatment preferences:: Yes Metrics: Potentially Preventable 30-day Post Discharge Readmission Rates POTENTIAL TRANSITION PLANS Assisted Facility/Intermediate Care Facility Per chart review, patient [...] 10 total. Patient request referral placed to [facility] , awaiting responses. CM will continue to follow for medical needs. The patient will be transported home at d/c by friends via private auto. SIGNATURE: Rosaline Keating RN PATIENT NAME: Shad Rodriguez DATE: August 16, 2020 TIME: 5:29 PM PAGER/CONTACT #: [phone] Normal [facility] CBCon 08-16-2020 Absolute nRBC <0.01 Normal <0.01 [facility] Comment on above: Performed By: #### P HOS, CBC, MG1, BMP ####[facility] [address] [place], [place] [phone] Erythrocyte distribution width (RBC) [Ratio] 14.0 % Normal 11.5-15.0 [facility] Comment on above: Performed By: #### P HOS, CBC, MG1, BMP ####[facility] [address] [place], [place] [phone] Hematocrit (Bld) [Volume fraction] 41.1 % Normal 39.0-51.0 [facility] Comment on above: Performed By: #### P HOS, CBC, MG1, BMP ####[facility] [address] [place], [place] [phone] Hemoglobin (Bld) [Mass/Vol] 13.5 g/dL Normal 13.0-17.0 [facility] Comment on above: Performed By: #### P HOS, CBC, MG1, BMP ####[place] [address] [place] [phone] MCH 28.8 pG Normal 26.0-34.0 [facility] Comment on above: Performed By: #### P HOS, CBC, MG1, BMP ####[place] [address] [place] [phone] MCHC (RBC) [Mass/Vol] 32.8 g/dL Normal 30.5-36.0 [facility] Comment on above: Performed By: #### P HOS, CBC, MG1, BMP ####[place] [address] [place] [phone] MCV (RBC) [Entitic vol] 87.6 fL Normal 80.0-100.0 [facility] Comment on above: Performed By: #### P HOS, CBC, MG1, BMP ####[place] [address] [place] [phone] Platelet mean volume (Bld) [Entitic vol] 10.4 fL Normal 9.0-12.7 [facility] Comment on above: Performed By: #### P HOS, CBC, MG1, BMP ####[place] [address] [place], [place] [phone] Platelets (Bld) [#/Vol] 195 10*3/uL Normal 150-400 [facility] Comment on above: Performed By: #### P HOS, CBC, MG1, BMP ####[place] [address] [place], [place] [phone] RBC (Bld) [#/Vol] 4.69 10*6/uL Normal 4.20-6.00 [facility] Comment on above: Performed By: #### P HOS, CBC, MG1, BMP ####[place] [address] [place] [phone] WBC (Bld) [#/Vol] 5.55 10*3/uL Normal 3.70-11.00 [facility] Comment on above: Performed By: #### P HOS, CBC, MG1, BMP ####[facility] [address] [place], [place] [phone] CNDSon 08-16-2020 CNDS HNO ID: [id number] Author: Gaby Crowell APRN.FAST FOOD RESTAURANT MANAGER Service: General Surgery Author Type: Nurse Practitioner [...] PATIENT CONDITION AT DISCHARGE: Stable DISCHARGE DISPOSITION: Assisted Facility INFORMATION PROVIDED TO PATIENT: Discharge instructions, [...] Care Management (more content not included)... Normal [facility] Magnesiumon 08-16-2020 Magnesium [Mass/Vol] 2.2 mg/dL Normal 1.7-2.3 [place] Comment on above: Performed By: #### P HOS, CBC, MG1, BMP ####[facility] [address] [place], [place] [phone] NURSING PROGon 08-16-2020 NURSING PROG HNO ID: [id number] Author: Bee Gracia RN Service: ? Author [...] and blood glucose is 162. Gen. Surg harm reduction worker made aware and requested to come and see the patient. The following observation(s) were made: Patient is up in the chair. Will continue to monitor the patient. This note was completed by: Bee Gracia Normal [facility] Phosphoruson 08-16-2020 Phosphate [Mass/Vol] 3.4 mg/dL Normal 2.7-4.8 [place] Comment on above: Performed By: #### P HOS, CBC, MG1, BMP ####[facility] [address] [place], [place] [phone] THERAPY NTon 08-16-2020 THERAPY NT HNO ID: [id number] Author: Ynes Sorto CCC/PROFESSIONAL DEVELOPMENT DIRECTOR Service: Speech/Swallow Author Type: Speech Language Pathologist Type: Therapy (PT/OT/Speech/Resp) Filed: 08/16/2020 12:06 PM Note Text: [facility] Speech Pathology Consult BEDSIDE SWALLOWING EVALUATION 08/16/2020 [...] with questions or concerns. Ynes Sorto M.A. [facility]-PROFESSIONAL DEVELOPMENT DIRECTOR Speech Language Pathology Cell/Pager: [phone] DIAGNOSIS/HISTORY (per HANDP): Shad Rodriguez is a 69 year old male with history of Asthma, HTN, T2DM, CKD3, PE/DVTs, factor V leiden on warfarin since 2015 who presents for preoperative evaluation. 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 He also underwent chemo and radiation with [...] EXTRACTION DATE OF ADMISSION: 08/12/2020 CURRENT LOCATION: [place] [address] HEARING STATUS: Within functional limits BEHAVIORAL OBSERVATIONS: [...] served plain (more content not included)... Normal [facility] THERAPY NT HNO ID: [id number] Author: Alyse Henson OT/L Service: Occupational Therapy Author Type: Occupational Therapist Type: Therapy (PT/OT/Speech/Resp) Filed: 08/16/2020 10:32 AM Note Text: Occupational Therapy Treatment SERVICE DATE: 08/16/2020 SERVICE TIME: 0942 to 1019 ROOM: [place] [address] Recommended Discharge Disposition: Subacute/SNF Recommended Discharge Disposition [...] at Home Physical Assist at Home for: Cleaning;Laundry;Meals ;Stairs;Self Care;Shopping;Transpor tation OT 6 Clicks Score: 18 Precautions/Activity Restrictions: Fall Risk;Lines/Tubes/Drain s;Abdominal Current Hospital Course: s/p TAR for ventral [...] Impairment Treatment Interventions: Self Care / Home Management;Education;E nergy Conservation Training;Functional Mobility Training;Balance Training Plan for next visit: Shower/tub transfer training, Standing balance, Toileting instruction, Fall prevention Home Environment Patient Lives With: (pt planning to move into assisted living facility ) Assistance Available: PRN Entry To Home: Stairs;With Rail Number Of Stairs Into Home: 2 Number Of Stairs To Bed/Bath: 0 Tub/Shower Type: walk-in 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 Normal [facility] Basic Metabolic Panlon 08-15 Anion gap [Moles/Vol] 12 mmol/L Normal 9-18 [facility] Comment on above: Performed By: #### C BCDISol BMP ####[place] [address] [address] [place], [place] [phone] Calcium [Mass/Vol] 9.2 mg/dL Normal 8.5-10.2 [facility] Comment on above: Performed By: #### C BCDIF, BMP ####[place] [address] [place], [place] [phone] Chloride [Moles/Vol] 98 mmol/L Normal 97-105 [place] Comment on above: Performed By: #### C BCDIF, BMP ####[place] [address] [address], [place] [phone] CO2 [Moles/Vol] 25 mmol/L Normal 22-30 [facility] Comment on above: Performed By: #### C BCDIF, BMP ####[facility], [place] [phone] Creatinine [Mass/Vol] 1.05 mg/dL Normal 0.73-1.22 [facility] Comment on above: Performed By: #### C BCDIF, BMP ####[place] [address], [place] [phone] eGFR- Amer. >60 Normal [facility] Comment on above: Performed By: #### C BCDIF, BMP ####[place] [address] [place], [place] [phone] eGFR-All Other Races >60 Normal [place] Comment on above: Result Comment: eGFR (Estimated [...] reflect actual GFR. Performed By: #### C DONALDO BMP ####[address] [phone] Glucose [Mass/Vol] 132 mg/dL High 74-99 [facility] Comment on above: Result Comment: The [place] [employer] (ADA) provides guidance for cutoff [...] Standards of Medical Care in Diabetes 2016, [place] [employer]. Diabetes Care. 2016.39(Suppl 1). Performed By: #### C KOBI FULTON ####[place] [address] [place], [place] [phone] Potassium [Moles/Vol] 4.6 mmol/L Normal 3.7-5.1 [facility] Comment on above: Performed By: #### C KOBI FULTON ####[address] [phone] Sodium [Moles/Vol] 135 mmol/L Low 136-144 [facility] Comment on above: Performed By: #### C BCGUSTAVO, BMP ####[address] [place], [place] [phone] Urea nitrogen [Mass/Vol] 17 mg/dL Normal 9-24 [facility] Comment on above: Performed By: #### C BCGUSTAVO, BMP ####[address] [place] [phone] CBC and Differentialon 08-15 Abs Baso 0.03 k/uL Normal <0.11 [facility] Comment on above: Performed By: #### C BCGUSTAVO, BMP ####[address] [place], [place] [phone] Abs Hale 0.79 k/uL Normal <0.87 [facility] Comment on above: Performed By: #### C BCJOHNF, BMP ####[address] [place] [phone] Abs Neut 6.67 k/uL Normal 1.45-7.50 [facility] Comment on above: Performed By: #### C BCJOHNF, BMP ####[address] [place], [place] [phone] Absolute nRBC <0.01 Normal <0.01 [facility] Comment on above: Performed By: #### C BCDIF, BMP ####[address] [place], [place] [phone] Basophils/100 WBC (Bld) 0.4 % Normal [facility] Comment on above: Performed By: #### C BCDIF, BMP ####[address] [place], [place] [phone] DTYPE Auto Diff Normal [facility] Comment on above: Performed By: #### C BCDIF, BMP ####[facility]ClevelBonds[place], [place] [phone] Eosinophils (Bld) [#/Vol] 0.06 10*3/uL Normal <0.46 [facility] Comment on above: Performed By: #### C BCDIF, BMP ####[place] [address] [address], [place] [phone] Eosinophils/100 WBC (Bld) 0.7 % Normal [facility] Comment on above: Performed By: #### C BCDIF, BMP ####[place] [address] [address]level[address] [place] [phone] Erythrocyte distribution width (RBC) [Ratio] 13.9 % Normal 11.5-15.0 [facility] Comment on above: Performed By: #### C BCDIF, BMP ####[place] [address] [address]level[address] [place] [phone] Hematocrit (Bld) [Volume fraction] 42.6 % Normal 39.0-51.0 [facility] Comment on above: Performed By: #### C BCDIF, BMP ####[place] [address] [address]levelB[address], [place] [phone] Hemoglobin (Bld) [Mass/Vol] 14.2 g/dL Normal 13.0-17.0 [facility] Comment on above: Performed By: #### C BCDIF, BMP ####[place] [address] [address]level[address] [place] [phone] Lymphocytes (Bld) [#/Vol] 0.84 10*3/uL Low 1.00-4.00 [facility] Comment on above: Performed By: #### C BCDIF, BMP ####[place] [address]levelB[address], [place] [phone] Lymphocytes/100 WBC (Bld) 10.0 % Normal [facility] Comment on above: Performed By: #### C BCDIF, BMP ####[place] [address]oint [place], [place] [phone] MCH 29.2 pG Normal 26.0-34.0 [facility] Comment on above: Performed By: #### C BCDIF, BMP ####[place] [address] [place] [phone] MCHC (RBC) [Mass/Vol] 33.3 g/dL Normal 30.5-36.0 [facility] Comment on above: Performed By: #### C BCDIF, BMP ####[place] [address] [place] [phone] MCV (RBC) [Entitic vol] 87.5 fL Normal 80.0-100.0 [facility] Comment on above: Performed By: #### C BCDIF, BMP ####[place] [address] [place] [phone] Monocytes/100 WBC (Bld) 9.4 % Normal [facility] Comment on above: Performed By: #### C BCDIF, BMP ####[place] [address] [place] [phone] Neutrophils/100 WBC (Bld) 79.5 % Normal [facility] Comment on above: Performed By: #### C BCDIF, BMP ####[place] [address] [place] [phone] NRBCs 0.0 /100 WBC Normal 0 [facility] Comment on above: Performed By: #### C BCDIF, BMP ####[place] [address] [place] [phone] Platelet mean volume (Bld) [Entitic vol] 10.3 fL Normal 9.0-12.7 [facility] Comment on above: Performed By: #### C BCDIF, BMP ####[place] [address], [place] [phone] Platelets (Bld) [#/Vol] 197 10*3/uL Normal 150-400 [facility] Comment on above: Performed By: #### C BCDIF, BMP ####[facility] [place], [place] [phone] RBC (Bld) [#/Vol] 4.87 10*6/uL Normal 4.20-6.00 [facility] Comment on above: Performed By: #### C BCDIF, BMP ####[facility] [place], [place] [phone] WBC (Bld) [#/Vol] 8.39 10*3/uL Normal 3.70-11.00 [facility] Comment on above: Performed By: #### C BCDIF, BMP ####[facility] [place], [place] [phone] THERAPY NTon 08-15-2020 THERAPY NT HNO ID: [id number] Author: Fina Boyle, PT Service: Physical Therapy Author Type: Physical Therapist Type: Therapy (PT/OT/Speech/Resp) Filed: 08/15/2020 3:37 PM Note Text: Physical Therapy Treatment SERVICE DATE: 08/15/2020 SERVICE TIME: 1353 to 1418 ROOM: [place] [address] Recommended Discharge Disposition: Home PT Recommended Discharge Disposition Comments: Therapy recommends SNF although the patient prefers SNF, will not have assist at home. 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 Anticipated Discharge Needs: Physical Assist at Home Physical Assist at Home for: Cleaning;Laundry;Meals ;Stairs;Safety;Self Care;Shopping;Transpor tation Recommended Discharge Equipment: To Be Determined PT 6 Clicks Score: 22 Precautions/Activity Restrictions: Fall Risk;Lines/Tubes/Drain s;Abdominal Current Hospital Course: s/p TAR for ventral hernia repair Reason for Hospital Admission: Pt admitted for scheduled procedure for ventral hernia repair Relevant Past Medical History: Asthma, HTN, T2DM, CKD3, PE/DVTs, factor V leiden on warfarin since 2016 Response to Therapy Interventions: Notable progression with functional activities/skills Physical Therapy Problem List: Education Deficit;Pain;Safety Deficits;Impaired Self Care;Decreased Activity Tolerance;Decreased Strength;Functional Mobility Impairment;Balance Impaired Treatment Interventions: Education;Self Care / Home Management;Energy Conservation Training;Joint Mobility;Strengthening ;Functional Mobility Training;Balance Training;Neuromuscular Re-education;Pain Management Home Environment Patient Lives With: (pt planning to move into assisted living facility ) Assistance Available: PRN Entry To Home: Stairs;With Rail Number Of Stairs Into Home: 2 Number Of Stairs To Bed/Bath: 0 Tub/Shower Type: walk-in 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 Functional Level: Within Functional Limits Prior [...] Blank pérez indicate activity not attempted General Deviations/Observation s: Antalgic gait;Flexed trunk posture -M: 8: Walk 250 feet or more Learning/Educational Needs: Discharge Plan;Disease Process;Equipment;Fami ly Education/Training;Fun ctional Activities/Mobility;Pa in Management;Plan of Care;Precautions;Rehab ilitation Techniques and Procedures;Respiratory Function;Safety Goals for Plan [...] Diagnosis: Reduced mobility-other Interventions Provided: Therapeutic Activity (63117);Gait Training (23815) Therapeutic Activity (92185) Treatment Minutes: 10 $ Therapeutic Activity (29578) Billed Units: 1 unit Gait Training (82772) Treatment Minutes: 15 $ Gait Training (71188) Billed Units: 1 unit Training AND education provided in: Assistive device use, Bed mobility, Benefits of in-hospital mobility, Discharge planning, Disease specific education, Expected functional level, Gait pattern, reduction of deviations, Positioning, Precautions/restrictio ns, Transfers The following therapeutic skills were used: Activity dosing, Cues for sequencing/proper technique for activity Total Timed Code Treatment Minutes: 25 Total Treatment Time (minutes): 25 Please see discipline specific clinical documentation flowsheet for complete details for this therapy evaluation/treatment. SIGNATURE: Fina Boyle PT, DPT PATIENT NAME: Shad Rodriguez DATE: August 15, 2020 TIME: 3:37 PM Normal [facility] Basic Metabolic Panlon 08-14 Anion gap [Moles/Vol] 10 mmol/L Normal 9-18 [facility] Comment on above: Performed By: #### C BCDIF, BMP, PHOS ####[address] [phone] Calcium [Mass/Vol] 9.3 mg/dL Normal 8.5-10.2 [facility] Comment on above: Performed By: #### C BCDIF, BMP, PHOS ####[place] [address] [address] [place] [phone] Chloride [Moles/Vol] 100 mmol/L Normal 97-105 [place] Comment on above: Performed By: #### C BCDIF, BMP, PHOS ####[facility] [place] [phone] CO2 [Moles/Vol] 27 mmol/L Normal 22-30 [facility] Comment on above: Performed By: #### C BCDIF, BMP, PHOS ####[facility] [place], [place] [phone] Creatinine [Mass/Vol] 1.15 mg/dL Normal 0.73-1.22 [facility] Comment on above: Performed By: #### C BCDIF, BMP, PHOS ####[facility] [place], [place] [phone] eGFR- Amer. >60 Normal [facility] Comment on above: Performed By: #### C KOBI FULTON PHOS ####[facility] [place], [place] [phone] eGFR-All Other Races >60 Normal [place] Comment on above: Result Comment: eGFR (Estimated [...] reflect actual GFR. Performed By: #### C KOBI FULTON PHOS ####[facility] [place], [place] [phone] Glucose [Mass/Vol] 148 mg/dL High 74-99 [facility] Comment on above: Result Comment: The [place] [employer] (ADA) provides guidance for cutoff [...] Standards of Medical Care in Diabetes 2016, [place] [employer]. Diabetes Care. 2016.39(Suppl 1). Performed By: #### C KOBI FULTON PHOS ####[facility] [place], [place] [phone] Potassium [Moles/Vol] 4.3 mmol/L Normal 3.7-5.1 [facility] Comment on above: Performed By: #### C BCDIF, BMP, PHOS ####[facility] [address] AveCPoint [place], [place] [phone] Sodium [Moles/Vol] 137 mmol/L Normal 136-144 [facility] Comment on above: Performed By: #### C BCDIF, BMP, PHOS ####[facility]ClevelB[place], [place] [phone] Urea nitrogen [Mass/Vol] 17 mg/dL Normal 9-24 [facility] Comment on above: Performed By: #### C BCDIF, BMP, PHOS ####[facility] [place], [place] [phone] Anion gap [Moles/Vol] 7 mmol/L Low 9-18 [facility] Comment on above: Performed By: #### M G1, BMP, PHOS, CBCDIF ####[facility] [place], [place] [phone] Calcium [Mass/Vol] 9.2 mg/dL Normal 8.5-10.2 [facility] Comment on above: Performed By: #### M G1, BMP, PHOS, CBCDIF ####[facility] [place], [place] [phone] Chloride [Moles/Vol] 100 mmol/L Normal 97-105 [place] Comment on above: Performed By: #### M G1, BMP, PHOS, CBCDIF ####[facility]Cleveland[place], [place] [phone] CO2 [Moles/Vol] 30 mmol/L Normal 22-30 [facility] Comment on above: Performed By: #### M G1, BMP, PHOS, CBCDIF ####[facility]ClevelB[place], [place] [phone] Creatinine [Mass/Vol] 1.13 mg/dL Normal 0.73-1.22 [facility] Comment on above: Performed By: #### M G1, BMP, PHOS, CBCDIF ####[facility] [address] [place], [place] [phone] eGFR- Amer. >60 Normal [facility] Comment on above: Performed By: #### M G1, BMP, PHOS, CBCDIF ####[facility] [address] [place], [place] [phone] eGFR-All Other Races >60 Normal [place] Comment on above: Result Comment: eGFR (Estimated [...] By: #### M G1, BMP, PHOS, CBCDIF ####[facility] [address] [place], [place] [phone] Glucose [Mass/Vol] 131 mg/dL High 74-99 [facility] Comment on above: Result Comment: The [place] Diabetes [employer] (ADA) provides guidance for cutoff [...] Standards of Medical Care in Diabetes 2016, [place] [employer]. Diabetes Care. 2016.39(Suppl 1). Performed By: #### M G1, BMP, PHOS, CBCDIF ####[place] [address], [place] [phone] Potassium [Moles/Vol] 4.4 mmol/L Normal 3.7-5.1 [facility] Comment on above: Performed By: #### M G1, BMP, PHOS, CBCDIF ####[place] [address] [address] [place] [phone] Sodium [Moles/Vol] 137 mmol/L Normal 136-144 [facility] Comment on above: Performed By: #### M G1, BMP, PHOS, CBCDIF ####[place] [address], [place] [phone] Urea nitrogen [Mass/Vol] 17 mg/dL Normal 9-24 [facility] Comment on above: Performed By: #### M G1, BMP, PHOS, CBCDIF ####[place] [address], [place] [phone] CBC and Differentialon 08-14 Abs Baso <0.03 Normal <0.11 [facility] Comment on above: Performed By: #### C BCDIF, BMP, PHOS ####[address] [place], [place] [phone] Abs Eosin <0.03 Normal <0.46 [facility] Comment on above: Performed By: #### C BCDIF, BMP, PHOS ####[place] [address], [place] [phone] Abs Hale 0.75 k/uL Normal <0.87 [facility] Comment on above: Performed By: #### C BCDIF, BMP, PHOS ####[place] [address] [place], [place] [phone] Abs Neut 7.52 k/uL High 1.45-7.50 [facility] Comment on above: Performed By: #### C BCDIF, BMP, PHOS ####[place] [address] [place] [phone] Absolute nRBC <0.01 Normal <0.01 [facility] Comment on above: Performed By: #### C BCDIF, BMP, PHOS ####[place] [address] [place] [phone] Basophils/100 WBC (Bld) 0.1 % Normal [facility] Comment on above: Performed By: #### C BCDIF, BMP, PHOS ####[place] [address]CJeff[address] [place] [phone] DTYPE Auto Diff Normal [facility] Comment on above: Performed By: #### C BCDIF, BMP, PHOS ####[place] [address] [place] [phone] Eosinophils/100 WBC (Bld) 0.2 % Normal [facility] Comment on above: Performed By: #### C BCDIF, BMP, PHOS ####[place] [address]Jeff[address] [place] [phone] Erythrocyte distribution width (RBC) [Ratio] 14.0 % Normal 11.5-15.0 [facility] Comment on above: Performed By: #### C BCDIF, BMP, PHOS ####[place] [address] [place] [phone] Hematocrit (Bld) [Volume fraction] 41.8 % Normal 39.0-51.0 [facility] Comment on above: Performed By: #### C BCDIF, BMP, PHOS ####[place] [address] [place] [phone] Hemoglobin (Bld) [Mass/Vol] 13.8 g/dL Normal 13.0-17.0 [facility] Comment on above: Performed By: #### C BCDIF, BMP, PHOS ####[place] [address] [place], [place] [phone] Lymphocytes (Bld) [#/Vol] 0.56 10*3/uL Low 1.00-4.00 [facility] Comment on above: Performed By: #### C BCDIF, BMP, PHOS ####[place] [address] [place], [place] [phone] Lymphocytes/100 WBC (Bld) 6.3 % Normal [facility] Comment on above: Performed By: #### C BCDIF, BMP, PHOS ####[place] [address] [place] [phone] MCH 29.0 pG Normal 26.0-34.0 [facility] Comment on above: Performed By: #### C BCDIF BMP, PHOS ####[place] [address] [place] [phone] MCHC (RBC) [Mass/Vol] 33.0 g/dL Normal 30.5-36.0 [facility] Comment on above: Performed By: #### C BCDIF, BMP, PHOS ####[place] [address] [place], [place] [phone] MCV (RBC) [Entitic vol] 87.8 fL Normal 80.0-100.0 [facility] Comment on above: Performed By: #### C BCDIF, BMP, PHOS ####[place] [address] [place], [place] [phone] Monocytes/100 WBC (Bld) 8.5 % Normal [facility] Comment on above: Performed By: #### C BCDIF, BMP, PHOS ####[place] [address]ClevelB[place], [place] [phone] Neutrophils/100 WBC (Bld) 84.9 % Normal [facility] Comment on above: Performed By: #### C BCDIF, BMP, PHOS ####[facility] [address] AveClevelBonds[place], [place] [phone] NRBCs 0.0 /100 WBC Normal 0 [facility] Comment on above: Performed By: #### C BCDIF, BMP, PHOS ####[facility] AveClevelB[place], [place] [phone] Platelet mean volume (Bld) [Entitic vol] 10.1 fL Normal 9.0-12.7 [facility] Comment on above: Performed By: #### C BCDIF, BMP, PHOS ####[place] [address] [address] [place] [phone] Platelets (Bld) [#/Vol] 184 10*3/uL Normal 150-400 [facility] Comment on above: Performed By: #### C BCDIF, BMP, PHOS ####[facility] [place] [phone] RBC (Bld) [#/Vol] 4.76 10*6/uL Normal 4.20-6.00 [facility] Comment on above: Performed By: #### C BCDIF, BMP, PHOS ####[place] [address] [place], [place] [phone] WBC (Bld) [#/Vol] 8.86 10*3/uL Normal 3.70-11.00 [facility] Comment on above: Performed By: #### C BCDIF, BMP, PHOS ####[facility]ClevelB[place], [place] [phone] Abs Baso <0.03 Normal <0.11 [facility] Comment on above: Performed By: #### M G1, BMP, PHOS, CBCDIF ####[facility]ClevelB[place], [place] [phone] Abs Eosin <0.03 Normal <0.46 [facility] Comment on above: Performed By: #### M G1, BMP, PHOS, CBCDIF ####[place] [address] [place] [phone] Abs Hale 0.73 k/uL Normal <0.87 [facility] Comment on above: Performed By: #### M G1, BMP, PHOS, CBCDIF ####[place] [address] [place] [phone] Abs Neut 6.19 k/uL Normal 1.45-7.50 [facility] Comment on above: Performed By: #### M G1, BMP, PHOS, CBCDIF ####[place] [address] [place] [phone] Absolute nRBC <0.01 Normal <0.01 [facility] Comment on above: Performed By: #### M G1, BMP, PHOS, CBCDIF ####[place] [address] [place] [phone] Basophils/100 WBC (Bld) 0.3 % Normal [facility] Comment on above: Performed By: #### M G1, BMP, PHOS, CBCDIF ####[place] [address] [address] [place] [phone] DTYPE Auto Diff Normal [facility] Comment on above: Performed By: #### M G1, BMP, PHOS, CBCDIF ####[place] [address] [place] [phone] Eosinophils/100 WBC (Bld) 0.3 % Normal [facility] Comment on above: Performed By: #### M G1, BMP, PHOS, CBCDIF ####[place] [address] [place] [phone] Erythrocyte distribution width (RBC) [Ratio] 14.1 % Normal 11.5-15.0 [facility] Comment on above: Performed By: #### M G1, BMP, PHOS, CBCDIF ####[facility]ClevelB[place], [place] [phone] Hematocrit (Bld) [Volume fraction] 41.3 % Normal 39.0-51.0 [facility] Comment on above: Performed By: #### M G1, BMP, PHOS, CBCDIF ####[facility]ClevelB[place], [place] [phone] Hemoglobin (Bld) [Mass/Vol] 13.7 g/dL Normal 13.0-17.0 [facility] Comment on above: Performed By: #### M G1, BMP, PHOS, CBCDIF ####[place] [address]CPoint [place], [place] [phone] Lymphocytes (Bld) [#/Vol] 0.80 10*3/uL Low 1.00-4.00 [facility] Comment on above: Performed By: #### M G1, BMP, PHOS, CBCDIF ####[place] [address]CPoint [address] [place], [place] [phone] Lymphocytes/100 WBC (Bld) 10.3 % Normal [facility] Comment on above: Performed By: #### M G1, BMP, PHOS, CBCDIF ####[place] [address]oint [address] [place], [place] [phone] MCH 29.0 pG Normal 26.0-34.0 [facility] Comment on above: Performed By: #### M G1, BMP, PHOS, CBCDIF ####[facility] AveClevelBondsville, [place] [phone] MCHC (RBC) [Mass/Vol] 33.2 g/dL Normal 30.5-36.0 [facility] Comment on above: Performed By: #### M G1, BMP, PHOS, CBCDIF ####[place] [address] AveClevelandMedford, [place] [phone] MCV (RBC) [Entitic vol] 87.3 fL Normal 80.0-100.0 [facility] Comment on above: Performed By: #### M G1, BMP, PHOS, CBCDIF ####[place] [address] [place], [place] [phone] Monocytes/100 WBC (Bld) 9.4 % Normal [facility] Comment on above: Performed By: #### M G1, BMP, PHOS, CBCDIF ####[place] [address] [place] [phone] MPV Unable to report Normal 9.0-12.7 [facility] Comment on above: Performed By: #### M G1, BMP, PHOS, CBCDIF ####[place] [address] [place], [place] [phone] Neutrophils/100 WBC (Bld) 79.7 % Normal [facility] Comment on above: Performed By: #### M G1, BMP, PHOS, CBCDIF ####[place] [address] [phone] NRBCs 0.0 /100 WBC Normal 0 [facility] Comment on above: Performed By: #### M G1, BMP, PHOS, CBCDIF ####[place] [address] [place], [place] [phone] Platelet Count Platelets Clumped, Estimate Normal Normal 150-400 [facility] Comment on above: Result Comment: Resu lt checked and verified No clot detected. Platelet count confirmed by manual review of peripheral blood smear. Performed By: #### M G1, BMP, PHOS, CBCDIF ####[place] [address] [place], [place] [phone] RBC (Bld) [#/Vol] 4.73 10*6/uL Normal 4.20-6.00 [facility] Comment on above: Performed By: #### M G1, BMP, PHOS, CBCDIF ####[address] [phone] WBC (Bld) [#/Vol] 7.76 10*3/uL Normal 3.70-11.00 [facility] Comment on above: Performed By: #### M G1, BMP, PHOS, CBCDIF ####[place] [address] [place], [place] [phone] Magnesiumon 08-14-2020 Magnesium [Mass/Vol] 2.3 mg/dL Normal 1.7-2.3 [place] Comment on above: Performed By: #### M G1 ####[address] [phone] Magnesium [Mass/Vol] 2.2 mg/dL Normal 1.7-2.3 [place] Comment on above: Performed By: #### M G1, BMP, PHOS, CBCDIF ####[address] [phone] Phosphoruson 08-14-2020 Phosphate [Mass/Vol] 2.1 mg/dL Low 2.7-4.8 [place] Comment on above: Performed By: #### C BCDIF, BMP, PHOS ####[address] [phone] Phosphate [Mass/Vol] 2.6 mg/dL Low 2.7-4.8 [place] Comment on above: Performed By: #### M G1, BMP, PHOS, CBCDIF ####[facility] [place], [place] [phone] ANES Shanelle 08-13-2020 ANES POST HNO ID: [id number] Author: Tristan Orellana DO Service: Anesthesiology Author [...] 16 08/13/20 0502 08/13/20 0807 08/13/20 0908 08/13/20 1348 SpO2: 96% 95% 95% 98% Validated [...] 13, 2020 TIME: 2:11 PM PAGER/CONTACT #: [phone] Normal [facility] Basic Metabolic Panlon 08-13 Anion gap [Moles/Vol] 12 mmol/L Normal 9-18 [facility] Comment on above: Performed By: #### C DONALDO PHOS, BMP ####[facility] [address] [place], [place] [phone] Calcium [Mass/Vol] 9.2 mg/dL Normal 8.5-10.2 [facility] Comment on above: Performed By: #### C BCDIF PHOS, BMP ####[facility], [place] [phone] Chloride [Moles/Vol] 100 mmol/L Normal 97-105 [place] Comment on above: Performed By: #### C MERNA FULTON, BMP ####[facility]Frank[address], [place] [phone] CO2 [Moles/Vol] 21 mmol/L Low 22-30 [facility] Comment on above: Performed By: #### C MERNA FULTON, BMP ####[place] [address] [place], [place] [phone] Creatinine [Mass/Vol] 1.20 mg/dL Normal 0.73-1.22 [facility] Comment on above: Performed By: #### C MERNA FULTON, BMP ####[place] [address] [place], [place] [phone] eGFR- Amer. >60 Normal [facility] Comment on above: Performed By: #### C MERNA FULTON, BMP ####[place] [address] [place], [place] [phone] eGFR-All Other Races >60 Normal [place] Comment on above: Result Comment: eGFR (Estimated [...] reflect actual GFR. Performed By: #### C BCMERNA CHEN, BMP ####[facility]Frank[address], [place] [phone] Glucose [Mass/Vol] 149 mg/dL High 74-99 [facility] Comment on above: Result Comment: The [place] [employer] (ADA) provides guidance for cutoff [...] Standards of Medical Care in Diabetes 2016, [place] [employer]. Diabetes Care. 2016.39(Suppl 1). Performed By: #### C MERNA FULTON BMP ####[place] [address]S[place], [place] [phone] Potassium Unable to assay due to interference from hemolysis. Suggest reorder as clinically indicated. Normal 3.7-5.1 [facility] Comment on above: Result Comment: Call ed to and read back by: BLAKE SHAH [id number] 08/13/2020 BRADLEY Performed By: #### C MERNA FULTON BMP ####[facility] [place], [place] [phone] Sodium [Moles/Vol] 133 mmol/L Low 136-144 [facility] Comment on above: Performed By: #### C MERNA FULTON BMP ####[facility] N[address] HoldingsFrank[place], [place] [phone] Urea nitrogen [Mass/Vol] 20 mg/dL Normal 9-24 [facility] Comment on above: Performed By: #### C MERNA FULTON BMP ####[facility] HoldingsFrank[place], [place] [phone] CBC and Differentialon 08-13 Abs Baso <0.03 Normal <0.11 [facility] Comment on above: Performed By: #### C MERNA FULTON BMP ####[facility]CPoint [address], [place] [phone] Abs Eosin <0.03 Normal <0.46 [facility] Comment on above: Performed By: #### C DONALDO PHOS, BMP ####[place] [address], [place] [phone] Abs Hale 0.96 k/uL High <0.87 [facility] Comment on above: Performed By: #### C TANIA FULTONS, BMP ####[place] [address] [phone] Abs Neut 12.86 k/uL High 1.45-7.50 [facility] Comment on above: Performed By: #### C MERNA FULTON, BMP ####[place] [address], [place] [phone] Absolute nRBC <0.01 Normal <0.01 [facility] Comment on above: Performed By: #### C MERNA FULTON, BMP ####[place] [address], [place] [phone] Basophils/100 WBC (Bld) 0.1 % Normal [facility] Comment on above: Performed By: #### C TANIA FULTONS, BMP ####[place] [address] [place], [place] [phone] DTYPE Auto Diff Normal [facility] Comment on above: Performed By: #### C DONALDO PHOS, BMP ####[place] [address], [place] [phone] Eosinophils/100 WBC (Bld) 0.0 % Normal [facility] Comment on above: Performed By: #### C DONALDO PHOS, BMP ####[place] [address] [place], [place] [phone] Erythrocyte distribution width (RBC) [Ratio] 13.7 % Normal 11.5-15.0 [facility] Comment on above: Performed By: #### C MERNA FULTON, BMP ####[place] [address] [place] [phone] Hematocrit (Bld) [Volume fraction] 44.0 % Normal 39.0-51.0 [facility] Comment on above: Performed By: #### C MERNA FULTON, BMP ####[place] [address] [phone] Hemoglobin (Bld) [Mass/Vol] 14.6 g/dL Normal 13.0-17.0 [facility] Comment on above: Performed By: #### C MERNA FULTON, BMP ####[place] [address]Cher[address] [place] [phone] Lymphocytes (Bld) [#/Vol] 0.49 10*3/uL Low 1.00-4.00 [facility] Comment on above: Performed By: #### C MERNA FULTON, BMP ####[place] [address] AvCher[address] [place] [phone] Lymphocytes/100 WBC (Bld) 3.4 % Normal [facility] Comment on above: Performed By: #### C MERNA FULTON, BMP ####[place] [address] [place] [phone] MCH 29.2 pG Normal 26.0-34.0 [facility] Comment on above: Performed By: #### C BCGUSTAVO PHOS, BMP ####[place] [address] [phone] MCHC (RBC) [Mass/Vol] 33.2 g/dL Normal 30.5-36.0 [facility] Comment on above: Performed By: #### C BCGUSTAVO PHOS, BMP ####[place] [address] [phone] MCV (RBC) [Entitic vol] 88.0 fL Normal 80.0-100.0 [facility] Comment on above: Performed By: #### C TANIA FULTONS, BMP ####[facility] AveClevelandMed[place], [place] [phone] Monocytes/100 WBC (Bld) 6.7 % Normal [facility] Comment on above: Performed By: #### C BCGUSTAVO PHOS, BMP ####[place] [address]ClevelandJess[place] [phone] Neutrophils/100 WBC (Bld) 89.8 % Normal [facility] Comment on above: Performed By: #### C TANIA FULTONS, BMP ####[place] [address] AveClevelBonds[place], [place] [phone] NRBCs 0.0 /100 WBC Normal 0 [facility] Comment on above: Performed By: #### C MERNA FULTON, BMP ####[place] [address] AveClevelBonds[place], [place] [phone] Platelet mean volume (Bld) [Entitic vol] 10.2 fL Normal 9.0-12.7 [facility] Comment on above: Performed By: #### C TANIA FULTONS, BMP ####[place] [address]ClevelandMed[place], [place] [phone] Platelets (Bld) [#/Vol] 200 10*3/uL Normal 150-400 [facility] Comment on above: Performed By: #### C DONALDO PHOS, BMP ####[place] [address]Cleveland[place], [place] [phone] RBC (Bld) [#/Vol] 5.00 10*6/uL Normal 4.20-6.00 [facility] Comment on above: Performed By: #### C DONALDO PHOS, BMP ####[address] [phone] WBC (Bld) [#/Vol] 14.32 10*3/uL High 3.70-11.00 [place] Comment on above: Performed By: #### C DONALDO PHOS, BMP ####[address] [phone] Magnesiumon 08-13-2020 Magnesium [Mass/Vol] 2.0 mg/dL Normal 1.7-2.3 [place] Comment on above: Performed By: #### M G1 ####[address] [phone] Phosphoruson 08-13-2020 Phosphate [Mass/Vol] 2.9 mg/dL Normal 2.7-4.8 [place] Comment on above: Performed By: #### C DONALDO PHOS, BMP ####[address] [phone] Potassiumon 08-13-2020 Potassium [Moles/Vol] 4.7 mmol/L Normal 3.7-5.1 [facility] Comment on above: Performed By: #### K 1 ####[address] [phone] THERAPY NTon 08-13-2020 THERAPY NT HNO ID: [id number] Author: Arlin Mantilla PT Service: Physical Therapy Author Type: Physical Therapist Type: Therapy (PT/OT/Speech/Resp) Filed: 08/13/2020 4:38 PM Note Text: Physical Therapy Evaluation SERVICE DATE: 08/13/2020 SERVICE TIME: 1550 to 1620 ROOM: [place] [address] Recommended Discharge Disposition: Subacute/SNF 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 Anticipated Discharge Needs: Physical Assist at Home Physical Assist at Home for: Cleaning;Laundry;Meals ;Stairs;Safety;Self Care;Shopping;Transpor tation Recommended Discharge Equipment: To Be Determined PT 6 Clicks Score: 17 Precautions/Activity Restrictions: Fall Risk;Lines/Tubes/Drain s;Abdominal Current Hospital Course: s/p TAR for ventral [...] Education;Self Care / Home Management;Energy Conservation Training;Joint Mobility;Strengthening ;Functional Mobility Training;Balance Training;Neuromuscular Re-education;Pain Management Home Environment Patient Lives With: (pt planning to move into assisted living facility ) Assistance Available: PRN Entry To Home: Stairs;With Rail Number Of Stairs Into Home: 2 Number Of Stairs To Bed/Bath: 0 Tub/Shower Type: walk-in 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 Functional Level: Within Functional Limits Prior [...] Blank pérez indicate activity not attempted General Deviations/Observation s: Antalgic gait;Shania decreased;Flexed trunk posture;Lateral sway increased JH-HLM: 7: Walk 25 feet or more Learning/Educational Needs: Discharge Plan;Disease Process;Equipment;Fami ly Education/Training;Fun ctional Activities/Mobility;Pa in Management;Plan of Care;Precautions;Rehab ilitation Techniques and Procedures;Respiratory Function;Safety Goals for Plan [...] Diagnosis: Reduced mobility-other Interventions Provided: Evaluation;Therapeutic Activity (95203);Gait Training (32067) $ Evaluation-Low (64439) Billed Units: 1 unit Therapeutic Activity (12404) Treatment Minutes: 5 $ Therapeutic Activity (25256) Billed Units: 0 units Gait Training (69477) Treatment Minutes: 10 $ Gait Training (71666) Billed Units: 1 unit Training AND education provided in: Anatomy and impact on deficits, Assistive device use, Bed mobility, Benefits of in-hospital mobility, Discharge planning, Energy conservation, Expected functional level, Falls prevention, Gait pattern, reduction of deviations, Pain Neuroscience, Positioning, Precautions/restrictio ns, Role of Physical Therapy, Treatment protocol The [...] evaluation/treatment. SIG (more content not included)... Normal [facility] THERAPY NT HNO ID: [id number] Author: Alyse Henson OT/L Service: Occupational Therapy Author Type: Occupational Therapist Type: Therapy (PT/OT/Speech/Resp) Filed: 08/13/2020 2:00 PM Note Text: Occupational Therapy Evaluation SERVICE DATE: 08/13/2020 SERVICE TIME: 1313 to 1347 ROOM: [place] [address] Recommended Discharge Disposition: Subacute/SNF Recommended Discharge Disposition [...] at Home Physical Assist at Home for: Cleaning;Laundry;Meals ;Stairs;Safety;Self Care;Shopping;Transpor tation OT 6 Clicks Score: 18 Precautions/Activity Restrictions: Fall Risk;Lines/Tubes/Drain s;Abdominal Current Hospital Course: s/p TAR for ventral [...] Self Care;Decreased Activity Tolerance;Functional Mobility Impairment;Balance Impaired Cognition/Communicatio n Deficits Orientation Deficits: (AOx3) Responsiveness: Alert, Awake [...] incomplete). 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 Pt reported has A to care for [...] Level Ad (more content not included)... Normal [facility] THERAPY NT HNO ID: [id number] Author: Alyse Henson OT/Roger Service: Occupational Therapy Author Type: Occupational Therapist Type: Therapy (PT/OT/Speech/Resp) Filed: 08/13/2020 10:51 AM Note Text: OCCUPATIONAL THERAPY MISSED VISIT SERVICE DATE: 08/13/2020 SERVICE TIME: 1048 to 1048 ROOM: [place] [address] Attempted Evaluation. Patient not seen due to Another service at bedside. PT at bedside. Will re-attempt as able. SIGNATURE: Alyse Henson OT/Roger PATIENT NAME: Shad Rodriguez DATE: August 13, 2020 TIME: 10:51 AM Normal [facility] NT HNO ID: [id number] Author: Arlin Mantilla PT Service: Physical Therapy Author Type: Physical Therapist Type: Therapy (PT/OT/Speech/Resp) Filed: 08/13/2020 10:49 AM Note Text: PHYSICAL THERAPY MISSED VISIT SERVICE DATE: 08/13/2020 SERVICE TIME: 1048 to 1048 ROOM: [place] [address] Attempted Evaluation. Patient not seen due to Declined. Pt requesting PT to reattempt after lunch. PT will reattempt as able and appropriate. SIGNATURE: Arlin Mantilla PT PATIENT NAME: Shad Rodriguez DATE: August 13, 2020 TIME: 10:49 AM Normal [facility] XR ABDOMEN 1V SUPINEon 08-13 XR ABDOMEN [...] bases are clear. IMPRESSION: No dilated bowel. 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: PSCB Transcribe Date/Time: Aug 13 2020 12:32P Dictated by : YRN ARROYO MD This examination was interpreted and the report reviewed and electronically signed by: YRN ARROYO MD on Aug 13 2020 12:33PM EST [id number] Normal [facility] ALLIED HEALTHon 08-12-2020 ALLIED HEALTH HNO ID: [id number] Author: Chaplain Stephanie Student Service: Spiritual Care Author Type: Student Type: Allied Health Filed: 08/12/2020 8:52 AM Note Text: SPIRITUAL CARE Spiritual Care Visit Record Name: Shad Rodriguez Date: August 12, 2020 Type of Visit: Preoperative Prayer/Visit Visit was with (pt, family, other) and name(s): patient. Ministry Provided During Visit: Prayer / Meditation Notes: Recreational Counselor responded to a request for pre-surgery prayer. Pt appeared to be a good spirits, expressed optimism and gratitude about his surgery. Recreational Counselor offered prayer and invited Pt to further utilize [facility] services in needed. Referrals: No referral made Will See: As Needed Only Follow-up Notes: Informed patient of Recreational Counselor availability Recreational Counselor Signature: Chaplain Stephanie Student To contact the Spiritual Care Department: Please call [phone] or Page the On-Call Recreational Counselor at pager [phone] Thank you for the opportunity to be of service. This is an electronically created document. IF PRINTED, PLEASE DO NOT REMOVE FROM THE CHART OR MODIFY PRINTED COPY. Normal [facility] BRIEF OP NOTon 08-12-2020 BRIEF OP NOT HNO ID: [id number] Author: Cassius Gatica MD Service: General Surgery Author Type: Resident Type: Brief Op Note Filed: 08/12/2020 11:53 AM Note Text: BRIEF OP NOTE LOG ID: [id number] Surgery/Procedure Date: 08/12/2020 Incision/Procedure Start Time: 9:21 AM Incision Close/Procedure End Time: 11:36 AM Surgeon(s)/Procedurali st(s) and Carry Out Clerk And Shelf Stocker(s): Surgeon(s) and Role: * Felicia Amaya MD [...] 12, 2020 TIME: 11:50 AM PAGER/CONTACT #: [phone] [facility] NURSING PROGon 07-02-2021 NURSING PROG HNO ID: [id number] Author: Alee Baxter RN Service: ? Author Type: Registered Nurse Type: Nursing Progress Note Filed: 08/12/2020 7:53 AM Note Text: Nursing Progress Note Patient Name: Shad Rodriguez Patient Location: [id number] Paged Dr[address] Orellana-anesthesia and Dr. Amaya-service at 0733. Pt has a cough, stated he has had the cough for years and it is productive. He also stated he has a sore throat which is not new. Denies fever or recent colds. This note was completed by: Alee Baxter [facility] OPERATIVE NOon 08-12-2020 OPERATIVE NO HNO ID: [id number] Author: Felicia Amaya MD Service: General Surgery Author Type: Physician Type: Operative Report Filed: 08/12/2020 2:55 PM Note Text: OPERATIVE REPORT NAME: Shad Rodriguez [facility] #: [id number] DATE: August 12, 2020 AGE: [age] year old SURGEON 1: Felicia Amaya MD SURGEON 2: BULK LOADER 1: Adriel Gatica MD BULK LOADER 2: OPERATION: 1. Open right myofascial advancement [...] ERAS Protocol: Yes Felicia Amaya MD Normal [facility] CBC and Differentialon 08-09 Abs Baso <0.03 Normal <0.11 [facility] Comment on above: Performed By: #### C MP, CBCDIF ####[facility] [address] AveClevelBonds[place], [place] [phone] Abs Hale 0.45 k/uL Normal <0.87 [facility] Comment on above: Performed By: #### C MP, CBCDIF ####[facility] AveClevelBonds[place], [place] [phone] Abs Neut 3.89 k/uL Normal 1.45-7.50 [facility] Comment on above: Performed By: #### C MP, CBCDIF ####[facility] AveClevelKevin [place] [phone] Absolute nRBC <0.01 Normal <0.01 [facility] Comment on above: Performed By: #### C MP, CBCDIF ####[place] [address] AveClevelKevin [place] [phone] Basophils/100 WBC (Bld) 0.4 % Normal [facility] Comment on above: Performed By: #### C MP, CBCDIF ####[facility]ClevelKevin [place] [phone] DTYPE Auto Diff Normal [facility] Comment on above: Performed By: #### C MP, CBCDIF ####[facility]levelKevin [place] [phone] Eosinophils (Bld) [#/Vol] 0.15 10*3/uL Normal <0.46 [facility] Comment on above: Performed By: #### C MP, CBCDIF ####[facility] AveClevelandJessica [place] [phone] Eosinophils/100 WBC (Bld) 2.9 % Normal [facility] Comment on above: Performed By: #### C MP, CBCDIF ####[facility] [address] AveClevelKevin [place] [phone] Erythrocyte distribution width (RBC) [Ratio] 13.3 % Normal 11.5-15.0 [facility] Comment on above: Performed By: #### C MP, CBCDIF ####[place] [address]oint [address], [place] [phone] Hematocrit (Bld) [Volume fraction] 44.5 % Normal 39.0-51.0 [facility] Comment on above: Performed By: #### C MP, CBCDIF ####[place] [address]oint [address], [place] [phone] Hemoglobin (Bld) [Mass/Vol] 14.7 g/dL Normal 13.0-17.0 [facility] Comment on above: Performed By: #### C MP, CBCDIF ####[place] [address], [place] [phone] Lymphocytes (Bld) [#/Vol] 0.68 10*3/uL Low 1.00-4.00 [facility] Comment on above: Performed By: #### C MP, CBCDIF ####[place] [address] [place], [place] [phone] Lymphocytes/100 WBC (Bld) 13.1 % Normal [facility] Comment on above: Performed By: #### C MP, CBCDIF ####[place] [address] [place], [place] [phone] MCH 28.7 pG Normal 26.0-34.0 [facility] Comment on above: Performed By: #### C MP, CBCDIF ####[facility]CPoint [place], [place] [phone] MCHC (RBC) [Mass/Vol] 33.0 g/dL Normal 30.5-36.0 [facility] Comment on above: Performed By: #### C MP, CBCDIF ####[facility]CPoint [place], [place] [phone] MCV (RBC) [Entitic vol] 86.9 fL Normal 80.0-100.0 [facility] Comment on above: Performed By: #### C MP, CBCDIF ####[facility], [place] [phone] Monocytes/100 WBC (Bld) 8.7 % Normal [facility] Comment on above: Performed By: #### C MP, CBCDIF ####[place] [address] [place], [place] [phone] Neutrophils/100 WBC (Bld) 74.9 % Normal [facility] Comment on above: Performed By: #### C MP, CBCDIF ####[place] [address] [place], [place] [phone] NRBCs 0.0 /100 WBC Normal 0 [facility] Comment on above: Performed By: #### C MP, CBCDIF ####[place] [address] [place], [place] [phone] Platelet mean volume (Bld) [Entitic vol] 10.5 fL Normal 9.0-12.7 [facility] Comment on above: Performed By: #### C MP, CBCDIF ####[place] [address] [place], [place] [phone] Platelets (Bld) [#/Vol] 193 10*3/uL Normal 150-400 [facility] Comment on above: Performed By: #### C MP, CBCDIF ####[place] [address]levelB[address], [place] [phone] RBC (Bld) [#/Vol] 5.12 10*6/uL Normal 4.20-6.00 [facility] Comment on above: Performed By: #### C MP, CBCDIF ####[place] [address] [place], [place] [phone] WBC (Bld) [#/Vol] 5.19 10*3/uL Normal 3.70-11.00 [facility] Comment on above: Performed By: #### C MP, CBCDIF ####[facility] [address] [place], [place] [phone] CNNURSEon 08-09-2020 [facility] Nurse Visit (RAIZA) SHAD RODRIGUEZ ([id number]) 1950 M Date Time Provider Department 08/09/20 12:30 PM NURSE NILAY EASTMAN During your visit today, we recorded the following information about you: Ledy Johns RN 08/09/2020 9:33 AM Signed AMBULATORY PATIENT EDUCATION NOTE PRE-OP TEACHING PROCEDURE: IMPLANT MESH/PROSTHESIS VENTRAL HERNIA REPAIR READINESS TO LEARN COGNITIVE ABILITY: Alert and oriented MOTIVATION TO LEARN: Eager Interested FAMILY SUPPORT: None - Unavailable/disinteres lo INSTRUCTION PROVIDED TO: Patient PATIENT LEARNS BEST [...] Department: GENERAL SURGERY Referring Provider: FELICIA AMAYA [[id number]] Allergies As of Date: 08/09/2020 Noted Allergy [...] by LEDY JOHNS RN on 08/09/20 Normal [facility] Comp Metabolic Panelon 08-09 Albumin [Mass/Vol] 4.0 g/dL Normal 3.9-4.9 [facility] Comment on above: Performed By: #### C SEAMUS CBCDIF ####[facility] [address] [place], [place] [phone] ALP [Catalytic activity/Vol] 121 U/L High 38-113 [facility] Comment on above: Performed By: #### C SEAMUS CBCDIF ####[facility] [address] [place], [place] [phone] ALT [Catalytic activity/Vol] 57 U/L High 10-54 [facility] Comment on above: Performed By: #### C SEAMUS CBCDIF ####[facility] [address] [place], [place] [phone] Anion gap [Moles/Vol] 8 mmol/L Low 9-18 [facility] Comment on above: Performed By: #### C MP, CBCDIF ####[facility] [place], [place] [phone] AST [Catalytic activity/Vol] 66 U/L High 14-40 [facility] Comment on above: Performed By: #### C MP, CBCDIF ####[place] [address] [place] [phone] Bilirubin [Mass/Vol] 0.5 mg/dL Normal 0.2-1.3 [place] Comment on above: Performed By: #### C MP, CBCDIF ####[place] [address] [place], [place] [phone] Calcium [Mass/Vol] 9.5 mg/dL Normal 8.5-10.2 [facility] Comment on above: Performed By: #### C MP, CBCDIF ####[place] [address] [place] [phone] Chloride [Moles/Vol] 104 mmol/L Normal 97-105 [place] Comment on above: Performed By: #### C MP, CBCDIF ####[place] [address] [place] [phone] CO2 [Moles/Vol] 26 mmol/L Normal 22-30 [facility] Comment on above: Performed By: #### C MP, CBCDIF ####[place] [address] [place], [place] [phone] Creatinine [Mass/Vol] 1.32 mg/dL High 0.73-1.22 [facility] Comment on above: Performed By: #### C MP, CBCDIF ####[place] [address]CPoint [place], [place] [phone] eGFR- Amer. >60 Normal [facility] Comment on above: Performed By: #### C MP, CBCDIF ####[place] [address] [place], [place] [phone] eGFR-All Other Races 54 . Normal [place] Comment on above: Result Comment: eGFR (Estimated [...] reflect actual GFR. Performed By: #### C SEAMUS, CBCDIF ####[facility] [place], [place] [phone] Glucose [Mass/Vol] 122 mg/dL High 74-99 [facility] Comment on above: Result Comment: The [place] Diabetes Association (ADA) provides guidance for cutoff [...] Standards of Medical Care in Diabetes 2016, [place] Diabetes Association. Diabetes Care. 2016.39(Suppl 1). Performed By: #### C SEAMUS, CBCDIF ####[facility] [address] [place], [place] [phone] Potassium [Moles/Vol] 4.4 mmol/L Normal 3.7-5.1 [facility] Comment on above: Performed By: #### C SEAMUS, CBCDIF ####[facility] [address] [place], [place] [phone] Protein [Mass/Vol] 6.8 g/dL Normal 6.3-8.0 [facility] Comment on above: Performed By: #### C MP, CBCDIF ####[facility] [address] [place], [place] [phone] Sodium [Moles/Vol] 138 mmol/L Normal 136-144 [facility] Comment on above: Performed By: #### C MP, CBCDIF ####[facility] [address] [place], [place] [phone] Urea nitrogen [Mass/Vol] 20 mg/dL Normal 9-24 [facility] Comment on above: Performed By: #### C MP, CBCDIF ####[facility] [address] [place], [place] [phone] HISTORY PHYSICALon HISTORY PHYSICAL HNO ID: [id number] Author: Sterling Bhatia MD Service: ? 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 He also underwent chemo and radiation with last round in 2016. He is scheduled for the above procedure. [...] Taking Yes Medication Comments documented by Lisa Childers MUSIC ARRANGER on 01/11/2016 at 0856. Pt unsure of medication list. Pt did not bring pill bottles or medication list to appt 01/11/2016 CURRENT ALLERGIES: ALLERGIES Allergen Reactions - Penicillins Unknown - Ragweed Shortness of Breath REVIEW OF SYSTEMS: PAIN ASSESSMENT: General: No weight loss, malaise or fevers. Neuro: No history of TIA's, stroke, SYNTHETIC FILAMENT EXTRUDER tumor, impaired sensorium, hemiplegia, paraplegia or quadraplegia. [...] Lungs: Normal breath sounds, no wheezes or shear scrapman (more content not included)... Normal [facility] PreOp/PreProc COVIDon 2020 SARS-CoV-2 (COVID-19) RNA KELLY+probe Ql (Unsp spec) UPPER RESPIRATORY TRACT SWAB Normal [facility] Comment on above: Performed By: #### P OCOVD ####[facility] [address] [place], [place] [address]WnfxjelvuTogus [facility] Center[address] [place], [place] [phone] SARS-CoV-2 (COVID-19) RNA KELLY+probe Ql (Unsp spec) Negative for COVID19 (SARS CoV2) by RT-PCR or equivalent method. Normal Negative for COVID19 (SARS CoV2) by RT-PCR or equivalent method. [facility] Comment on above: Result Comment: This test was developed and its performance characteristics determined by [facility]'s [facility] [place]. This test has been authorized by FDA under an Emergency Use Authorization (EUA). This test has been validated in accordance with the FDA's Guidance Document Policy for Diagnostics Testing in Laboratories Certified to Perform High Complexity Testing under CLIA prior to Emergency use Authorization for Coronavirus Disease 2019 during the Public Health Emergency issued on April 11, 2019. Test performed by [facility], [facility] [place], [address] [address]. Performed By: #### P OCOVD ####[address] [phone] Type and SCR (30D)on 021 ABO/RH(D) AB POSTIVE Normal [facility] Comment on above: Performed By: #### T SCR30 ####[address] [phone] Urinalysison 08-09-2020 Bilirubin, Urine Negative Normal Negative [facility] Comment on above: Performed By: #### U A ####[address] [phone] Clarity (U) Clear Normal Clear [facility] Comment on above: Performed By: #### U A ####[address] [phone] Color (U) Yellow Normal Yellow [facility] Comment on above: Performed By: #### U A ####[address] [phone] Comments SEE COMMENT Normal [facility] Comment on above: Result Comment: Micr oscopic Examination Performed Performed By: #### U A ####[address] [phone] Glucose Ql (U) Negative Normal Negative [facility] Comment on above: Performed By: #### U A ####[place] [address] [place] [phone] Hemoglobin/Blood,Ur 1+ Critically abnormal Negative [facility] Comment on above: Performed By: #### U A ####[place] [address] [phone] Ketones Ql (U) Negative Normal Negative [facility] Comment on above: Performed By: #### U A ####[place] [address] [phone] Leukest Negative Normal Negative [facility] Comment on above: Performed By: #### U A ####[place] [address] [place] [phone] Nitrite Ql (U) Negative Normal Negative [facility] Comment on above: Performed By: #### U A ####[place] [address] [phone] pH (U) 6.0 [pH] Normal 5.0-8.0 [facility] Comment on above: Performed By: #### U A ####[place] [address] [place] [phone] Protein, Urine Negative Normal Negative [facility] Comment on above: Performed By: #### U A ####[place] [address] [phone] RBC 0-3 Normal 0-3 [facility] Comment on above: Performed By: #### U A ####[place] [address] [place], [place] [phone] Specific [place], Ur 1.017 Normal 1.005-1.030 [facility] Comment on above: Performed By: #### U A ####[place] [address] [phone] Urine Bao Comment SEE COMMENT Normal [facility] Comment on above: Result Comment: N/A Performed By: #### U A ####[facility] [place], [place] [phone] Urobilinogen Qn (U) {Ramona'U}/dL Critically abnormal Negative [facility] Comment on above: Performed By: #### U A ####[facility] [place], [place] [phone] WBC 0-5 Normal 0-5 [facility] Comment on above: Performed By: #### U A ####[facility] [place], [place] [phone] CNPNon 08-03-2020 CNPN Telephone (Herrera) SHAD RODRIGUEZ ([id number]) 1950 M Date Time Provider Department 08/03/20 LEDY JOHNS (RN) RAIZA During your visit [...] Fully Assessed Reason for Visit: Reminder Call [7082] Prescriptions as of 08/03/2020 Sig: AMLODIPINE 2.5 [...] Status:Closed by LEDY JOHNS RN on 08/03/20 [facility] 07-13-2020 CNPN Telephone (PublikDemandHerrera) SHAD RODRIGUEZ ([id number]) 1950 M Date Time Provider Department 07/13/20 LEDY JOHNS (RN) Herrera During your visit today, we recorded the [...] Fully Assessed Reason for Visit: Reminder Call [6097] Prescriptions as of 07/13/2020 Sig: AMLODIPINE 2.5 [...] Status:Closed by LEDY JOHNS RN on 07/13/20 [facility] 06-28-2020 CNPN Telephone (GlydeN) SHAD RODRIGUEZ ([id number]) 1950 M Date Time Provider Department 06/28/20 YASIR ARIAS (RN) Herrera During your visit today, we recorded the [...] pre-op apt information, can also view via [email or web address], patient verbalized an understanding and agrees with [...] MD - Fully Assessed 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 - Other [3602] Prescriptions as of 06/28/2020 Sig: AMLODIPINE 2.5 [...] Encounter Status:Closed by YASIR ARIAS on 06/28/20 [facility] 06-28-2020 HOSP Patient:Courtney Rodriguez as A MRN: Height:5' 7 [...] LEARN: Eager Interested FAMILY SUPPORT: None - Unavailable/disinteres lo INSTRUCTION PROVIDED TO: Patient PATIENT LEARNS BEST [...] understanding and all questions were addressed, Normal [facility] CNOVon 06-27-2020 CNOV Office Visit (RAIZA ) SHAD RODRIGUEZ ([id number]) 1950 M Date Time Provider Department 06/27/20 10:20 AM FELICIA AMAYA During your visit today, we recorded the following information about you: Temperature Pulse Respiration Blood pressure 96.9 degrees 70/minute 16/minute 117/70 Weight Height 93 kg 1.702 m Aidanmiguel angel Wiggins 06/27/2020 9:24 AM Signed What is the [...] meds, HTN, with PSHx of Lap LAR, 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 Planned for [...] No Mesh Fixation for Open Retromuscular Repairs CUSTODIAL FOREMAN: Sydney Hassan MD COORDINATOR/Research Nurse/Chief Of Production: Tiara Funes MD ? Consenting was performed by the attending surgeon, in a latx-ha-njzy manner, during preoperative evaluation at the General [...] [] 2. The patient is fluent in Tongan, has read the consent form and understood study procedures [x] [] 3. The patient is planned to undergo a ventral hernia r (more content not included)... Normal [facility] Progress Noteon 07-02-[address] [facility] [place] [address] Progress Note Signed:[phone] Name: SHAD RODRIGUEZ MRUN: [id number] : 1950 Loc: 3S Age / Sex: 68/ M Adm Status: DIS Leonor Adm Date:06/03/19 Room/Bed: [facility] Date of Service 06/04/19 Subjective (ROS) Constitutional: Weakness Eyes: No Symptoms Reported ENT: No Symptoms Reported Respiratory: No Symptoms Reported Cardiovascular: No Symptoms Reported. denies: Chest Pain, Edema, Palpitations Endocrine: No Symptoms Reported Gastrointestinal: No Symptoms Reported Genitourinary: No Symptoms Reported Musculoskeletal: No Symptoms Reported Skin: Other - Wound management consult to evaluate and treat Neurological: No Symptoms Reported Psychiatric: No Symptoms Reported Hematological/Lymphati c: No Symptoms Reported Objective (Exam) Admission Weight/BMI [...] (Auto) 12.8 % (24.0-44.0) L 06/05/19 05:34 Hale % (Auto) 7.5 % (1.7-9.3) 06/05/19 05:34 Eos % (Auto) 1.3 % (0.0-5.0) 06/05/19 05:34 Baso % (Auto) 0.3 % (0.0-1.0) 06/05/19 05:34 Neut # (Auto) 4.5 10 3/uL (1.5-6.7) 06/05/19 05:34 Lymph # (Auto) 0.7 10 3/uL (1.0-3.5) L 06/05/19 05:34 Hale # (Auto) 0.4 10 3/uL (0.2-0.8) 06/05/19 [...] [id number] CC: Fercho TORRES, Danii Pickett Normal [facility] CBC WITH AUTO DIFFon 020 Basophils (Bld) [#/Vol] 0.0 10 3/uL Normal 0.0-0.2 [facility] Comment on above: Performed By: #### P T #### [facility] - [address] [address] Basophils/100 WBC (Bld) 0.3 % Normal 0.0-1.0 [facility] Comment on above: Performed By: #### P T #### [facility] - [address] [address] Eosinophils (Bld) [#/Vol] 0.1 10 3/uL Normal 0.0-0.7 [facility] Comment on above: Performed By: #### P T #### [facility] - [address] [address] Eosinophils/100 WBC (Bld) 1.3 % Normal 0.0-5.0 [facility] Comment on above: Performed By: #### P T #### [facility] - [address] [address] Erythrocyte distribution width (RBC) [Ratio] 14.4 % High 11.5-14.0 [facility] Comment on above: Performed By: #### P T #### [facility] - [address] [address] Hematocrit (Bld) [Volume fraction] 39.2 % Normal 38.7-49.8 [facility] Comment on above: Performed By: #### P T #### [facility] - [address] [address] Hemoglobin (Bld) [Mass/Vol] 13.2 g/dL Normal 12.9-16.6 [facility] Comment on above: Performed By: #### P T #### [facility] - [address] [address] Lymphocytes (Bld) [#/Vol] 0.7 10 3/uL Low 1.0-3.5 [facility] Comment on above: Performed By: #### P T #### [facility] - [address] [address] Lymphocytes/100 WBC (Bld) 12.8 % Low 24.0-44.0 [facility] Comment on above: Performed By: #### P T #### [facility] - [address] [address] MCH (RBC) [Entitic mass] 28.9 pg Normal 27.0-31.0 [facility] Comment on above: Performed By: #### P T #### [facility] - [address] [address] MCHC (RBC) [Mass/Vol] 33.8 g/dL Normal 32.0-36.0 [facility] Comment on above: Performed By: #### P T #### [facility] - [address] [address] MCV (RBC) [Entitic vol] 85.5 fL Normal 78.0-100.0 [facility] Comment on above: Performed By: #### P T #### [facility] - [address] [address] Monocytes (Bld) [#/Vol] 0.4 10 3/uL Normal 0.2-0.8 [facility] Comment on above: Performed By: #### P T #### [facility] - [address] [address] Monocytes/100 WBC (Bld) 7.5 % Normal 1.7-9.3 [facility] Comment on above: Performed By: #### P T #### [facility] [place], [place] [address] Neutrophils (Bld) [#/Vol] 4.5 10 3/uL Normal 1.5-6.7 [facility] Comment on above: Performed By: #### P T #### [facility] [address] [place] [address] Neutrophils/100 WBC (Bld) 78.1 % High 36.0-66.0 [facility] Comment on above: Performed By: #### P T #### [facility] [address] [place] [address] Platelet mean volume (Bld) [Entitic vol] 7.9 fL Normal 6.0-9.5 [facility] Comment on above: Performed By: #### P T #### [facility] [address] [place] [address] Platelets (Bld) [#/Vol] 180 10 3/uL Normal 150-450 [facility] Comment on above: Performed By: #### P T #### [facility] [address] [place] [address] RBC (Bld) [#/Vol] 4.58 x10 6/uL Normal 4.38-5.71 [facility] Comment on above: Performed By: #### P T #### [facility] - [facility] [address] [place] [address] WBC (Bld) [#/Vol] 5.8 10 3/uL Normal 4.0-10.5 [facility] Comment on above: Performed By: #### P T #### [facility] Lab [facility] [address] [place] [address] COMPREHENSIVE METABOLIC PANE Sukhi 06-05-2019 Albumin [Mass/Vol] 3.1 g/dL Low 3.9-5.0 [facility] Comment on above: Performed By: #### P T #### [facility] Lab - [facility] [address] [place] [address] Albumin/Globulin [Mass ratio] 1.2 {ratio} Normal 1.1-1.8 [facility] Comment on above: Performed By: #### P T #### [facility] - [facility] [address] [place] [address] ALP [Catalytic activity/Vol] 84 U/L Normal 43-122 [facility] Comment on above: Performed By: #### P T #### Main Lab - [address] [address] ALT/SGPT 48 U/L Normal 7-56 [facility] Comment on above: Performed By: #### P T #### Main Lab - [address] [address] Anion gap [Moles/Vol] 8 mmol/L Low 9-18 [facility] Comment on above: Performed By: #### P T #### [facility] - [address] [address] AST/SGOT 26 U/L Normal 14-50 [facility] Comment on above: Performed By: #### P T #### [facility] - [address] [address] Bilirubin [Mass/Vol] 0.5 mg/dL Normal 0.2-1.3 [facility] Comment on above: Performed By: #### P T #### [facility] - [address] [address] Calcium [Mass/Vol] 8.5 mg/dL Normal 8.4-10.2 [facility] Comment on above: Performed By: #### P T #### [facility] - [address] [address] Chloride [Moles/Vol] 106 mmol/L Normal 98-107 [facility] Comment on above: Performed By: #### P T #### Main Lab - [address] [address] CO2 [Moles/Vol] 27 mmol/L Normal 22-31 [facility] Comment on above: Performed By: #### P T #### Main Lab - [address] [address] Creatinine [Mass/Vol] 1.30 mg/dL Normal 0.80-1.30 [facility] Comment on above: Performed By: #### P T #### [facility] - [address] [address] ESTIMATED CREAT CLEARANCE 52.26 Normal [facility] Comment on above: Result Comment: COCK CROFT-GAULT FORMULA 1972 Performed By: #### P T #### [facility] - [address] [address] ESTIMATED GLOMERULAR FILT RATE 55.000 mL/min Normal [facility] Comment on above: Performed By: #### P T #### [facility] - [address] [address] Globulin (S) [Mass/Vol] 2.6 g/dL Normal [facility] Comment on above: Performed By: #### P T #### [address] [address] Glucose [Mass/Vol] 108 mg/dL High 70-99 [facility] Comment on above: Result Comment: The glucose range is based on recommendations from the [place] [employer] for fasting blood glucose range. Performed By: #### P T #### [facility] - [address] [address] Potassium [Moles/Vol] 3.7 mmol/L Normal 3.6-5.0 [facility] Comment on above: Performed By: #### P T #### [address] [address] Protein [Mass/Vol] 5.7 g/dL Low 6.3-8.2 [facility] Comment on above: Performed By: #### P T #### [address] [address] Sodium [Moles/Vol] 137 mmol/L Normal 137-145 [facility] Comment on above: Performed By: #### P T #### [address] [address] Urea nitrogen [Mass/Vol] 15 mg/dL Normal 7-21 [facility] Comment on above: Performed By: #### P T #### [address] [address] Urea nitrogen/Creatinine [Mass ratio] 11.5 Ratio Normal 5.0-42.0 [facility] Comment on above: Performed By: #### P T #### [facility] - [address] [address] Age - Reported 68 Years Normal Damione rn [facility] Comment on above: Performed By: #### P T #### [facility] - [address] [address] PT WITH INRon 06-05-2019 INR Coag (PPP) [Relative time] 3.1 {INR} Normal [facility] Comment on above: Result Comment: ISAAK MMENDED RANGES FOR INR: Therapeutic range for standard therapy INR: 2.0-3.0 Therapeutic range for high dose therapy INR: 2.5-3.5 Performed By: #### P T #### [facility] - [address] [address] PT Coag (PPP) [Time] 32.2 s High 12.0-14.5 [facility] Comment on above: Performed By: #### P T #### [facility] - [place] [phone] URINE CULTUREon 06-05-2019 Bacteria identified Cx Nom (U) @06/03/19 1933: URINE CULT added. RFLXG = URINE CULT. @Source [place] [id number]. URINE CULTURE: NO GROWTH AT 48 HOURS Normal [facility] Comment on above: Performed By: #### P T #### [facility] - [address] [address] CBC WITH AUTO DIFFon 020 Basophils (Bld) [#/Vol] 0.0 10 3/uL Normal 0.0-0.2 [facility] Comment on above: Performed By: #### P T, CMP, CBC #### [facility] - [address] [address] Basophils/100 WBC (Bld) 0.2 % Normal 0.0-1.0 [facility] Comment on above: Performed By: #### P T, CMP, CBC #### [facility] - [address] [address] Eosinophils (Bld) [#/Vol] 0.0 10 3/uL Normal 0.0-0.7 [facility] Comment on above: Performed By: #### P T, CMP, CBC #### [facility] - [facility] [address] [place] [address] Eosinophils/100 WBC (Bld) 0.3 % Normal 0.0-5.0 [facility] Comment on above: Performed By: #### P T, CMP, CBC #### [facility] - [facility] [address] Erythrocyte distribution width (RBC) [Ratio] 14.4 % High 11.5-14.0 [facility] Comment on above: Performed By: #### P T, CMP, CBC #### [facility] - [facility] [address] Hematocrit (Bld) [Volume fraction] 40.5 % Normal 38.7-49.8 [facility] Comment on above: Performed By: #### P T, CMP, CBC #### [facility] - [address] [address] Hemoglobin (Bld) [Mass/Vol] 13.9 g/dL Normal 12.9-16.6 [facility] Comment on above: Performed By: #### P T, CMP, CBC #### [facility] - [facility] [address] [place] [address] Lymphocytes (Bld) [#/Vol] 0.6 10 3/uL Low 1.0-3.5 [facility] Comment on above: Performed By: #### P T, CMP, CBC #### [facility] - [facility] [address] [place] [address] Lymphocytes/100 WBC (Bld) 8.3 % Low 24.0-44.0 [facility] Comment on above: Performed By: #### P T, CMP, CBC #### [facility] - [facility] [address] [place] [address] MCH (RBC) [Entitic mass] 29.2 pg Normal 27.0-31.0 [facility] Comment on above: Performed By: #### P T, CMP, CBC #### [facility] - [facility] [address] [place] [address] MCHC (RBC) [Mass/Vol] 34.2 g/dL Normal 32.0-36.0 [facility] Comment on above: Performed By: #### P T, CMP, CBC #### [facility] - [facility] [address] [place], [place] [address] MCV (RBC) [Entitic vol] 85.2 fL Normal 78.0-100.0 [facility] Comment on above: Performed By: #### P T, CMP, CBC #### [facility] - [facility] [address] [place] [address] Monocytes (Bld) [#/Vol] 0.4 10 3/uL Normal 0.2-0.8 [facility] Comment on above: Performed By: #### P T, CMP, CBC #### [facility] - [facility] [address] [place] [address] Monocytes/100 WBC (Bld) 5.4 % Normal 1.7-9.3 [facility] Comment on above: Performed By: #### P T, CMP, CBC #### [facility] - [facility] [address] [place] [address] Neutrophils (Bld) [#/Vol] 5.8 10 3/uL Normal 1.5-6.7 [facility] Comment on above: Performed By: #### P T, CMP, CBC #### [facility] - [address] [address] Neutrophils/100 WBC (Bld) 85.8 % High 36.0-66.0 [facility] Comment on above: Performed By: #### P T, CMP, CBC #### [facility] - [facility] [address] [place] [address] Platelet mean volume (Bld) [Entitic vol] 8.1 fL Normal 6.0-9.5 [facility] Comment on above: Performed By: #### P T, CMP, CBC #### [facility] - [facility] [address] [place] [address] Platelets (Bld) [#/Vol] 190 10 3/uL Normal 150-450 [facility] Comment on above: Performed By: #### P T, CMP, CBC #### [facility] - [facility] [address] [place] [address] RBC (Bld) [#/Vol] 4.75 x10 6/uL Normal 4.38-5.71 [facility] Comment on above: Performed By: #### P T, CMP, CBC #### [facility] - [facility] [address] [place] [address] WBC (Bld) [#/Vol] 6.7 10 3/uL Normal 4.0-10.5 [facility] Comment on above: Performed By: #### P T, CMP, CBC #### [facility] - [facility] [address] [place] [address] COMPREHENSIVE METABOLIC PANE Sukhi 06-04-2019 Albumin [Mass/Vol] 3.4 g/dL Low 3.9-5.0 [facility] Comment on above: Performed By: #### P T, CMP, CBC #### [facility] - [facility] [address] [place] [address] Albumin/Globulin [Mass ratio] 1.2 {ratio} Normal 1.1-1.8 [facility] Comment on above: Performed By: #### P T, CMP, CBC #### [facility] - [facility] [address] [place] [address] ALP [Catalytic activity/Vol] 92 U/L Normal 43-122 [facility] Comment on above: Performed By: #### P T, CMP, CBC #### [facility] - [facility] [address] [place] [address] ALT/SGPT 62 U/L High 7-56 [facility] Comment on above: Performed By: #### P T, CMP, CBC #### [facility] - [facility] [address] [place] [address] Anion gap [Moles/Vol] 8 mmol/L Low 9-18 [facility] Comment on above: Performed By: #### P T, CMP, CBC #### [facility] - [facility] [address] [place] [address] AST/SGOT 36 U/L Normal 14-50 [facility] Comment on above: Result Comment: Spec imen Slightly Hemolyzed. Performed By: #### P T, CMP, CBC #### [facility] - [facility] [address] [place] [address] Bilirubin [Mass/Vol] 0.5 mg/dL Normal 0.2-1.3 [facility] Comment on above: Performed By: #### P T, CMP, CBC #### [facility] - [facility] [address] [place], [place] [address] Calcium [Mass/Vol] 8.9 mg/dL Normal 8.4-10.2 [facility] Comment on above: Performed By: #### P T, CMP, CBC #### [facility] - [facility] [address] [place] [address] Chloride [Moles/Vol] 109 mmol/L High 98-107 [facility] Comment on above: Result Comment: Inco nsistent with previous results. Performed By: #### P T, CMP, CBC #### [facility] - [facility] [address] [place] [address] CO2 [Moles/Vol] 27 mmol/L Normal 22-31 [facility] Comment on above: Performed By: #### P T, CMP, CBC #### [facility] - [facility] [address] [place] [address] Creatinine [Mass/Vol] 1.28 mg/dL Normal 0.80-1.30 [facility] Comment on above: Performed By: #### P T, CMP, CBC #### [facility] - [facility] [address] [place] [address] ESTIMATED CREAT CLEARANCE 53.08 [facility] Comment on above: Result Comment: COCK CROFT-GAULT FORMULA 1972 Performed By: #### P T, CMP, CBC #### [facility] [place], [place] [address] ESTIMATED GLOMERULAR FILT RATE 56.000 mL/min [facility] Comment on above: Performed By: #### P T, CMP, CBC #### [facility] [place], [place] [address] Globulin (S) [Mass/Vol] 2.9 g/dL [facility] Comment on above: Performed By: #### P T, CMP, CBC #### [facility] - [facility] [address] [place], [place] [address] Glucose [Mass/Vol] 165 mg/dL High 70-99 [facility] Comment on above: Result Comment: The glucose range is based on recommendations from the [place] [employer] for fasting blood glucose range. Performed By: #### P T, CMP, CBC #### [facility] - [facility] [address] [place], [place] [address] Potassium [Moles/Vol] 3.7 mmol/L Normal 3.6-5.0 [facility] Comment on above: Result Comment: Spec imen Slightly Hemolyzed. Performed By: #### P T, CMP, CBC #### [facility] - [facility] [address] [place], [place] [address] Protein [Mass/Vol] 6.3 g/dL Normal 6.3-8.2 [facility] Comment on above: Performed By: #### P T, CMP, CBC #### [facility] [address] [place], [place] [address] Sodium [Moles/Vol] 140 mmol/L Normal 137-145 [facility] Comment on above: Performed By: #### P T, CMP, CBC #### [facility] [address] [place], [place] [address] Urea nitrogen [Mass/Vol] 17 mg/dL Normal 7-21 [facility] Comment on above: Performed By: #### P T, CMP, CBC #### [facility] [address] [place], [place] [address] Urea nitrogen/Creatinine [Mass ratio] 13.3 Ratio Normal 5.0-42.0 [facility] Comment on above: Performed By: #### P T, CMP, CBC #### [facility] - [facility] [address] [place], [place] [address] Age - Reported 68 Years Normal [facility] Comment on above: Performed By: #### P T, CMP, CBC #### [facility] - [facility] [address] [place], [place] [address] CREATINE KINASE MBon 020 CK.MB [Mass/Vol] 4.0 ng/mL High 0.0-3.7 [facility] Comment on above: Performed By: #### C KMB 1 #### [facility] - [facility] [address] [place], [place] [address] CK.MB [Mass/Vol] 3.8 ng/mL High 0.0-3.7 [facility] Comment on above: Performed By: #### C KMB 1 #### [facility] - [facility] [address] [place], [place] [address] CK.MB [Mass/Vol] 4.4 ng/mL High 0.0-3.7 [facility] Comment on above: Performed By: #### P T #### [facility] - [facility] [address] [place] [address] ABDOMEN PELVIS W/Oon 05-13 CT ABDOMEN PELVIS W/O [facility] [address] [place] [address] Diagnostic Imaging Report : [id number] Signed Name: SHAD RODRIGUEZ MRUN: [id number] : 1950 Loc: 3S Age / Sex: 68 / M ADM Status: ADM Leonor ADM Date: 06/03/19 Room/Bed: [facility] Ordering Physician: Vick ENCISO Usrees Procedure: CT ABDOMEN PELVIS W/O Order Number(s): [id number] Ordered Date: 06/04/19 Ordered Time: 0006 EXAMINATION: CT OF THE ABDOMEN AND PELVIS [...] No pelvic mass, adenopathy, or fluid collection. Peritoneum/Retroperito neum: Midline fat containing ventral hernia with 6.5 [...] Signed Date/Time: 06/04/19225 Transcribed Date/Time: 06/04/19221 Normal [facility] DRUG SCREEN,URINEon 06-04-19 AMPHETAMINE SCREEN,URINE Negative Normal NEGATIVE [facility] Comment on above: Order Comment: @ COL L DATE was changed from 06/03/19 to 06/04/19 @ by [id number]. Old specimen was [id number]. Result Comment: Nega tive cut-off concentration <1000 ng/mL Performed By: #### U DS #### [facility] - [facility] [address] [place] [address] BARBITURATE SCREEN, URINE Negative Normal NEGATIVE [facility] Comment on above: Order Comment: @ COL L DATE was changed from 06/03/19 to 06/04/19 @ by [id number]. Old specimen was [id number]. Result Comment: Nega tive cut-off concentration <200 ng/mL Performed By: #### U DS #### [facility] [address] [place] [address] BENZODIAZEPINES SCREEN,URINE Negative Normal NEGATIVE [facility] Comment on above: Order Comment: @ COL L DATE was changed from 06/03/19 to 06/04/19 @ by [id number]. Old specimen was [id number]. Result Comment: Nega tive cut-off concentration <200 ng/mL Performed By: #### U DS #### [facility] [place] [id number] BUPRENORPHINE SCREEN,URINE Negative Normal NEGATIVE [facility] Comment on above: Order Comment: @ COL L DATE was changed from 06/03/19 to 06/04/19 @ by [id number]. Old specimen was [id number]. Result Comment: Nega tive cut-off concentration <10 ng/mL Performed By: #### U DS #### [facility] [place] [id number] CANNABINOID SCREEN,URINE Negative Normal NEGATIVE [facility] Comment on above: Order Comment: @ COL L DATE was changed from 06/03/19 to 06/04/19 @ by [id number]. Old specimen was [id number]. Result Comment: Nega tive cut-off concentration <50 ng/mL Performed By: #### U DS #### Main Lab - [place] [id number] COCAINE SCREEN,URINE Negative Normal NEGATIVE [facility] Comment on above: Order Comment: @ COL L DATE was changed from 06/03/19 to 06/04/19 @ by [id number]. Old specimen was [id number]. Result Comment: Nega tive cut-off concentration <300 ng/mL Performed By: #### U DS #### Main Lab - [place] [id number] METHADONE SCREEN,URINE Negative Normal NEGATIVE [facility] Comment on above: Order Comment: @ COL L DATE was changed from 06/03/19 to 06/04/19 @ by [id number]. Old specimen was [id number]. Result Comment: Nega tive cut-off concentration <300 ng/mL Performed By: #### U DS #### [facility] - [place] [id number] OPIATE SCREEN,URINE Negative Normal NEGATIVE [facility] Comment on above: Order Comment: @ COL L DATE was changed from 06/03/19 to 06/04/19 @ by [id number]. Old specimen was [id number]. Result Comment: Nega tive cut-off concentration <300 ng/mL Performed By: #### U DS #### Main Lab - [place] [id number] OXYCODONE SCREEN,URINE Negative Normal NEGATIVE [facility] Comment on above: Order Comment: @ COL L DATE was changed from 06/03/19 to 06/04/19 @ by [id number]. Old specimen was [id number]. Result Comment: Nega tive cut-off concentration <300 ng/mL Performed By: #### U DS #### Main Lab - [facility] [address] [place], [place] [address] PHENCYCLIDINE SCREEN,URINE Negative Normal NEGATIVE [facility] Comment on above: Order Comment: @ COL L DATE was changed from 06/03/19 to 06/04/19 @ by [id number]. Old specimen was [id number]. Result Comment: Nega tive cut-off concentration <25 ng/mL Performed By: #### U DS #### [facility] [place], [place] [address] NITRITE,URINE Negative Normal NEGATIVE [facility] Comment on above: Order Comment: @ COL L DATE was changed from 06/03/19 to 06/04/19 @ by [id number]. Old specimen was [id number]. Performed By: #### U DS #### [facility] Lab [facility] [place], [place] [address] pH (U) 6.0 [pH] Normal 5.0-8.0 [facility] Comment on above: Order Comment: @ COL L DATE was changed from 06/03/19 to 06/04/19 @ by [id number]. Old specimen was [id number]. Performed By: #### U DS #### [facility] - [facility] [address] [place] [address] SPECIFIC GRAVITY,URINE 1.027 SP.GR. Normal <1.029 [facility] Comment on above: Order Comment: @ COL L DATE was changed from 06/03/19 to 06/04/19 @ by [id number]. Old specimen was [id number]. Performed By: #### U DS #### [facility] - [facility] [address] [place] [address] ECHOCARDIOGRAM COMPLETEon ECHOCARDIOGRAM COMPLETE [facility] [address] [place] [address] Cardiovascular Imaging Report : [id number] Signed Name: SHAD RODRIGUEZ MRUN: [id number] : 1950 Loc: 3S Age / Sex: 68 / M ADM Status: ADM Leonor ADM Date: 06/03/19 Room/Bed: [facility] Ordering Physician: Vick ENCISO, [facility] Procedure: ECHOCARDIOGRAM COMPLETE Order Number(s): [id number] Ordered Date: 06/04/19 Ordered Time: 0700 SEOSYNCVPROD [id number] Transthoracic Echo Report Ht (in): 67 Wt (lb): 221 BSA: 2.2 Technologist: Ingris Messer RD Nurse: Gracie Goldberg BSN, Stay Type: I Indications: syncope Procedure: A [...] 4.4 cm RV Mid 3.7 cm RV [place] to Base 8.6 cm Ascending Aorta Diameter 3.2 cm M-MODE Aortic Root Diameter MM 3.6 cm LA Systolic Diameter MM 4.2 cm LA Ao Ratio MM 1.2 DOPPLER AV Peak Velocity 1.3 m/s AV Peak Gradient 6.6 mmHg LVOT Peak Velocity 0.8 m/s LVOT Peak Gradient 2.5 mmHg LVOT Mean Gradient 1.3 mmHg LVOT Velocity Time Integral 16.7 cm MV Deceleration [place] 1.3 m/s? MV Pressure Half Time 83.2 [...] By: Sakina Pack MD Dictated Date/Time: 06/04/19 0947 Signed By: Sakina Pack MD, MD Signed Date/Time: 06/04/19 1132 Transcribed Date/Time: 06/04/19 0947 Normal [facility] History & Physicalon 020 History & Physical [address] [place] [address] History Physical Signed with Addenda:[id number] Name: SHAD RODRIGUEZ MRUN: [id number] : 1950 Loc: 3S Age / Sex: 68/ M Adm Status: ADM Leonor Adm Date:06/03/19 Room/Bed: 317-01 ADDENDUM---- ------ Bilateral lower extremities have chronic venous stasis changes and trace edema, small open wound on right leg. 06/04/19 0048 CC: Vick ENCISO, [facility] Date of Service 06/03/19 History of Present Illness Information source:: Patient Chief Complaint: I passed out This is a pleasant 68-year-old male with a history of diabetes mellitus and colon cancer was brought into the emergency room by the correctional security officer for further evaluation and management of a syncopal event. Patient was in his usual state of health until this afternoon. 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 He was taking the exit to get to the Highway around 4:30 PM after exchanging the trailer with his colleague. He felt like his truck is spinning around. The next thing he knew was correctional security officer were knocking on the door. He was found slumped over on the steering wheel. He did not experience any chest pain, palpitations, focal weakness, vision changes or diaphoresis prior to the episode. No prior similar symptoms. No reports of seizure-like activity. No reports of bladder or bowel incontinence. No history of SC, CVA or seizures. He had his breakfast [...] (Auto) 12.0 % (24.0-44.0) L 06/03/19 17:36 Hale % (Auto) 6.0 % (1.7-9.3) 06/03/19 17:36 Eos % (Auto) 0.6 % (0.0-5.0) 06/03/19 17:36 Baso % (Auto) 0.3 % (0.0-1.0) 06/03/19 17:36 Neut # (Auto) 5.7 10 3/uL (1.5-6.7) 06/03/19 17:36 Lymph # (Auto) 0.8 10 3/uL (1.0-3.5) L 06/03/19 17:36 Hale # (Auto) 0.4 10 3/uL (0.2-0.8) 06/03/19 17:36 Eos # (Auto) 0.0 10 3/uL (0.0-0.7) 06/03/19 17:36 Baso # (Auto) 0.0 10 3/uL (0.0-0.2) 06/03/19 17:36 Sodium 139 mmol/L (137-145) 06/03/19 17:36 Potassium 4.0 mmol/L (3.6-5.0) 06/03/19 17:36 Chloride 103 mmol/L (98-107) 06/03/19 17:36 Carbon Dioxide 25 mmol/L (-) 06/03/19 17:36 Anion Gap 15 mmol/L (9-18) [...] actually had an appointment with surgeon at [facility] for rectal hernia repair about one to [...] Current Visit: Yes Category: Medical Status: Chronic 06/04/197 CC: Vick ENCISO, Usrees Normal [facility] LACTATE FOLLOW UPon 06-04-19 LACTATE FOLLOW UP 1.0 mmol/L Normal 0.7-2.4 [facility] Comment on above: Order Comment: @05/13: LACTATE 2 added. RFLXG = LACTICRFX. Performed By: #### L ACTATE 2 #### [facility] Lab [facility] [address] [place] [address] PT WITH INRon 06-04-2019 INR Coag (PPP) [Relative time] 3.0 {INR} Normal [facility] Comment on above: Order Comment: @ Pre viously cancelled by [id number] on 06/04/19 at 0924. @ Uncancelled by [id number] on 06/04/19 at 0931. @ Specimen Rejected Previously Y. @ Previous Rejection Reason DUPLICATE - Duplicate orders. Result Comment: ISAAK MMENDED RANGES FOR INR: Therapeutic range for standard therapy INR: 2.0-3.0 Therapeutic range for high dose therapy INR: 2.5-3.5 Performed By: #### P T #### [facility] Lab - [facility] [address] [place], [place] [address] PT Coag (PPP) [Time] 31.2 s High 12.0-14.5 [facility] Comment on above: Order Comment: @ Pre viously cancelled by [id number] on 06/04/19 at 0924. @ Uncancelled by [id number] on 06/04/19 at 0931. @ Specimen Rejected Previously Y. @ Previous Rejection Reason DUPLICATE - Duplicate orders. Performed By: #### P T #### [facility] [address] [place] [address] INR Coag (PPP) [Relative time] 3.1 {INR} Normal [facility] Comment on above: Result Comment: ISAAK MMENDED RANGES FOR INR: Therapeutic range for standard therapy INR: 2.0-3.0 Therapeutic range for high dose therapy INR: 2.5-3.5 Performed By: #### P T, CMP, CBC #### [facility] - [facility] [address] [place], [place] [address] PT Coag (PPP) [Time] 32.1 s High 12.0-14.5 [facility] Comment on above: Performed By: #### P T, CMP, CBC #### [facility] Lab - [facility] [address] [place], [place] [address] TROPONIN Ion 06-04-2019 Troponin I.cardiac [Mass/Vol] 0.06 ng/mL High 0.0-0.03 [facility] Comment on above: Result Comment: Refe rence Interval < or = 0.03 ng/mL Clinical Correlation Needed 0.03 - 0.11 ng/mL AMI Cutoff, Presumptive = or > 0.12 ng/mL Performed By: #### T ROP 1 #### [facility] - [facility] [address] [place] [address] Troponin I.cardiac [Mass/Vol] 0.06 ng/mL High 0.0-0.03 [facility] Comment on above: Result Comment: Refe rence Interval < or = 0.03 ng/mL Clinical Correlation Needed 0.03 - 0.11 ng/mL AMI Cutoff, Presumptive = or > 0.12 ng/mL Performed By: #### P T #### [facility] - [facility] [address] [place] [address] US CAROTID DUPLEX BILATERALo n 06-04-2019 CAROTID DUPLEX BILATERAL [facility] [address] [place] [address] Diagnostic Imaging Report : [id number] Signed Name: SHAD RODRIGUEZ MRUN: [id number] : 1950 Loc: 3S Age / Sex: 68 / M ADM Status: ADM Leonor ADM Date: 06/03/19 Room/Bed: [facility] Ordering Physician: Vick ENCISO, Usrees Procedure: US CAROTID DUPLEX BILATERAL Order Number(s): [id number] Ordered Date: 06/04/19 Ordered Time: 0700 EXAMINATION: [...] 06/04/19 1142 Transcribed Date/Time: 06/04/19 1138 Normal [facility] Waveform Imaging Reporton Waveform Imaging Report [facility] [address] [place] [address] Waveform Imaging Report : [id number] Signed Name: SHAD RODRIGUEZ MRUN: [id number] : 1950 Loc: 3S Age / Sex: 68 / M ADM Status: ADM Leonor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 01-11-2021 influenza, unspecifi ed formulation Yusra Denis [facility] 07-22-2020 SARS-CoV-2 (COVID-19 ) mRNA BNT-162b2 vax Yusramanuel HenryCira [facility] Comment on above: Result Comment: 2021: [id number] 06-30-2020 SARS-CoV-2 (COVID-19 ) mRNA BNT-162b2 vax Yusramanuel HenryCira [facility] Comment on above: Result Comment: 2021: [id number] tetanus and diphther ia toxoids, adsorbed, preservative free, for adult use (2 Lf of tetanus toxoid and 2 Lf of diphtheria toxoid) Yusra Denis [facility] 11-14-2019 influenza virus vaccine, unspecified formulation Yusra Denis [facility] 10-31-2018 influenza virus vaccine, unspecified formulation Yusra Denis [facility] 10-31-2018 pneumococcal polysaccharide vaccine, 23 valent Yusra Denis [facility] 10-22-2017 influenza virus vaccine, unspecified formulation Yusra Denis [facility] 10-22-2017 pneumococcal conjuga te vaccine, 13 valent Yusramanuel Denis [facility] 12-07-2016 influenza, unspecifi ed formulation Yusramanuel Denis [facility] NEGATED: Highlighted row has not occurred!11-16-2021 influenza virus vaccine, unspecified formulation Yusra Denis [facility] Payers Date Payer Category Payer Medicare [id number] 1957 Self-pay 1957 Unknown [id number] 1950 Unknown [id number] 2.16.84 [id number] 1952 Unknown [id number] 2.16.84 [id number] 1950 Unknown [id number] 2.16.8 [id number] 1952 Unknown [id number] 2.16.8 [id number] 1952 Unknown [id number] 2.16.8 [id number] 1952 Unknown [id number] 2.16.8 [id number] 1952 Unknown [id number] 2.16.8 [id number] 1952 Unknown [id number] 2.16.8 [id number] 1952 Unknown [id number] 2.16.8 [id number] 1952 Unknown [id number] 2.16.8 [id number] Social History Date Type Detail Facility Tobacco [facility] Comment on above: denies current use Sex Assigned At Male [facility] Start: 07-19-2021 End: 06-27-2022 Tobacco smoking status Never smoked tobacco (finding) [facility] Comment on above: denies current use Tobacco smoking status Never [facility] Functional Status Date Assessment Result Facility 05-17-2022 Functional Status N/A [facility] 11-16-2021 Functional Status N/A [facility] 10-05-2021 Functional Status N/A [facility] Clinical Notes 06-27-2020 to 01-23-2023 Note Date & Type Note Facility 01-23-2023 Note [facility] 01-23-2023 Note Review of Systems All other systems reviewed and are negative. PT JUST GETTING OVER COVID. FEELS GOOD, HE IS HOPING TO GO SOUTH SOON, BP ON TH LOWER SIDE TODAY, DOES NOT FEEL DIZZY [facility] 01-08-2023 Note [facility] 01-08-2023 Note [facility] 12-26-2022 Note [facility] 12-12-2022 Note [facility] 12-12-2022 Note [facility] 12-05-2022 Note [facility] 12-05-2022 Note [facility] 12-05-2022 Note [facility] 12-05-2022 Note [facility] 12-05-2022 Note [facility] 12-05-2022 Note [facility] 12-05-2022 Note [facility] 12-04-2022 Note [facility] 12-04-2022 Note [facility] 12-04-2022 Note Addendum created 1143 by Robin Pérez Intraprocedure Staff edited (Perfusion) [facility] 12-04-2022 Note [facility] 12-03-2022 Note [facility] 12-03-2022 Note [facility] 12-03-2022 Note [facility] 12-03-2022 Note [facility] 12-03-2022 Note [facility] 12-03-2022 Note [facility] 12-02-2022 Note [facility] 12-02-2022 Note This report has been cancelled. [facility] 12-02-2022 Note [facility] 12-01-2022 Note [facility] 12-01-2022 Note [facility] 12-01-2022 Note Chest tube placed at bedside per ICU MD. Patient signed consent and placed in chart. Patient tolerated procedure well. Patient Vitals are as charted. CXR ordered. Safety Maintained. [facility] 12-01-2022 Note [facility] 11-30-2022 Note [facility] 11-30-2022 Note [facility] 11-30-2022 Note [facility] 11-29-2022 Note [facility] 11-29-2022 Note [facility] 11-29-2022 Note [facility] 11-28-2022 Note [facility] 11-28-2022 Note [facility] 11-27-2022 Note [facility] 11-27-2022 Note [facility] 11-27-2022 Note [facility] 11-27-2022 Note [facility] 11-26-2022 Note [facility] 11-26-2022 Note [facility] 11-26-2022 Note [facility] 11-26-2022 Note [facility] 08-21-2022 Evaluation + Plan note Extrac lo from: Title:[facility] H&P Author:Aggie Hollingsworth Date: 08/21/22 Impression and [...] stroke: no 4. Serious co-morbid conditions (recent SC, anemia with Hct <30%, CRI with SCr [...] PT 03/06/22 * Vitamin B12 Level 06/27/22 [facility]04-06-2023 Hospital Discharge instructions Patient Education 05/17/2022 08:26:00 [...] who treats conditions of the digestive system (product marketing coordinator). Follow these instructions at home: Take xyht-dfn-waalbkp and prescription medicines only as told by [...] 08/27/2017 Document Revised: 01/10/2018 Document Reviewed: 10/15/2017 [employer] Patient Education 2020 [employer]. Follow Up Care 11/16/2021 08:43:43 With:Yusra Denis CNP Address: When:1 month [facility] 10-06-2022 Hospital Discharge [...] 10/24/2004 Document Revised: 05/15/2018 Document Reviewed: 05/15/2018 [employer] Patient Education 2020 [employer] Follow Up Care 10/10/2021 11:02:12 With:Yusra Denis CNP Address: When:6 months [facility] 08-25-2022 Evaluation + Plan noteExtracted from: Title:CARMEN POSTOP Author:Dangelo Morel DO Date: 10/05/21 Plan Transfer/ Discharge: Patient can be discharged from PACU when criteria met. Condition good. Extracted from: Title:CARMEN PREOP Author:Dangelo Morel DO Date: Plan [place] [employer] Anesthesiologists (ASA) physical status classification: [...] Appointments Appointment Date:10/13/2021 10:15:00 AM Scheduled Provider: Location:FT.CARDIO Appointment Type:Anticoagulation Follow Up 15 (FT) Appointment [...] 01/09/22 * PT 02/06/22 * PT 03/06/22 [facility]08-25-2022 Hospital Discharge instructions Patient Education 10/05/2021 09:56:38 Colonoscopy, Care After Surgery Micaela (CONSTANCE) Colonoscopy Care After Surgery Please read the instructions outlined below and refer to this sheet in the next few weeks. These discharge instructions provide you with general information on caring [facility] Your doctor may also give you specific [...] Up Care 07/19/2021 09:30:23 With:Thais HINOJOSA Address: [address] [place] [address] Business (1) When: Unknown Comments:OFFICE WILL CALL DATE AND TIME OF FOLLOW-UP APPT. [facility]06-08-2022 Hospital Discharge instructions Patient Education 07/19/2021 09:11:00 [...] Follow these instructions at home: Medicines Take vcbq-jbi-cuzlijv and prescription medicines only as told by your health care provider. If you were prescribed an antibiotic medicine, take it as told by your health care provider. Do notstop taking the antibiotic even if you start to feel better. Eating and drinking Follow any diet changes as told by your health care provider. Work with a diet and biodiesel engine specialist (dietitian) to create an eating plan [...] 01/25/2001 Document Revised: 06/24/2019 Document Reviewed: 06/24/2019 [employer] Patient Education 2019 [employer] Follow Up Care 07/11/2021 11:18:24 With:Yusra Denis CNP Address: When:1 month [facility] 05-16-2022 Hospital Discharge instructions Follow Up Care 06/26/2021 10:32:10 With:Dougie Harmon Address: [facility] [place] [address] [phone] Fax Business (1) When: Unknown Comments:cbc, cmp, cea in 6mofollow-up in 6mo [facility]03-22-2022 Evaluation + Plan noteExtracted from: [facility] Author:Aggie Hollingsworth Date :05/02/21 Impression and [...] stroke: no 4. Serious co-morbid conditions (recent SC, anemia with Hct <30%, CRI with SCr > 1.5, DM): yes hx of cancer Score = 2//4 Risk (low = 0, mod = 1-2, high = 3-4) Future Appointments Appointment Date:02/27/2022 07:30:00 AM Scheduled Provider: [facility] Type:Anticoagulation Remote 15 (FT) Appointment Date:05/17/2022 08:00:00 AM Scheduled Provider:Yusra Denis CNP Location:[facility] Appointment Type:BADH Follow Up Appointment [...] 01/09/22 * PT 02/06/22 * PT 03/06/22 [facility]07-26-2021 NoteHNO ID: [id number] Author: Cydney Koch APRN.ISIDRA Service: ? Author Type: Nurse Practitioner Type: Progress Notes Filed: 09/05/2020 11:19 AM Note Text: [facility] Clinic Date: 09/05/2020 [...] needed. Randomized control trial: RINSE/FIXATION Cydney Koch APRN.FAST FOOD RESTAURANT MANAGER September 04, 2020 1113AM [facility] General Surgery [place] for Abdominal Core [facility]07-09-2021 NoteHNO ID: [id number] Author: Moris Shelton MD Service: General Surgery [...] interval not displayed. COAG: Recent Labs 08/19/20 0508/18/20 0555 INR 1.2 1.0 BMP: Recent Labs 08/19/2041 08/18/20 0555 08/17/20 0656 08/16/20 04308/15/20 0632 08/14/20 0554 08/14/20 04208/13/20 0447 08/12/20 2356 08/12/20 2356 GLUC 117* [...] this interval not displayed. CHEM: Recent Labs 08/19/2041 08/18/20 0555 08/17/20 0656 08/16/20 0434 08/15/20 [...] surg schedule 2-3 weeks. Moris Shelton MD [facility] Service [id number] For calls on nights and weekends, please page the gen surg pager: [phone] 7:27 AM, 08/19/2020 [facility]07-08-2021 NoteHNO ID: [id number] Author: Amanda Aldana MD Service: General Surgery [...] this interval not displayed. COAG: Recent Labs 08/18/20 0555 INR 1.0 BMP: Recent Labs 08/18/20 0555 08/17/20 0656 08/16/20 [...] SNF Outpatient gen surg schedule 2-3 weeks. MD [facility] Service [id number] For calls on nights and weekends, please page the gen surg pager: [phone] 1:08 PM, 08/18/2020 [facility]07-07-2021 NoteHNO ID: [id number] Author: Moris Shelton MD Service: General Surgery [...] O2 Therapy: Room Air Date 08/16/20699 - 08/17/2065808/17/20699 - 08/18/20 0659 Shift 7244-0129 5644-1213 2119-4994 24 Hour Total 1608-2865 5312-7526 9270-9271 24 Hour Total INTAKE PO 300 250 550 480 480 PO 300 250 550 480 480 Supplements (mL) 0 0 IV 75 75 Volume (mL) (lactated ringers iv infusion) 75 75 Shift Total 375 250 625 480 480 OUTPUT Urine 800 118 117 2217 351 351 Void (ml) 800 389 722 5835 351 351 Urine Not Saved. 1 x [...] (mL) 0 0 0 0 Shift Total 865 699 762 7891 411 411 Weight (kg) 93.4 93.4 93.4 [...] 1102 -- 08/12/20 1515 pneumatic compression stockings ([place], [place]) 08/12/20 1515 activity - mobilize patient ([place], [place]) VTE Prophylaxis: VTE prophylaxis appropriate Plan of care discussed with: Provider, RN, Patient SIGNATURE: Moris Shelton MD PATIENT NAME: Shad Rodriguez DATE: August 17, 2020 TIME: 2:11 [facility]07-06-2021 NoteHNO ID: [id number] Author: Amanda Aldana MD Service: General Surgery [...] the last 168 hours. BMP: Recent Labs 08/15/2063108/14/20 0508/14/2042108/13/2044608/12/20235508/09/20 0931 GLUC 132* 148* 131* -- 149* [...] 1.13 -- 1.20 1.32* CHEM: Recent Labs 08/15/2032 08/14/20210308/14/2054 08/14/2042108/13/20 1724 08/12/20235508/09/20 0931 ALB -- -- -- -- -- [...] IS and pulmonary toilet Amanda Aldana MD [facility] Service [id number] For calls on nights and weekends, please page the gen surg pager: [phone] 5:44 AM, 08/16/2020 Assessment AND Plan Active Hospital Problems as of 08/16/2020 Noted - Resolved [facility] Ventral hernia 08/12/2020 - Present Yes Current Assessment AND Plan Assessment: 69 year old year old male 2 Days Post-Op s/p TAR for ventral hernia repair PLAN: WONG advancing diet GI soft Switching to pain [...] 0856 -- 08/12/20 1515 pneumatic compression stockings ([place], [place]) 08/12/20 1515 activity - mobilize patient ([place], [place]) VTE Prophylaxis: VTE prophylaxis appropriate Plan of care discussed with: Provider, RN, Patient and Care Management SIGNATURE: Amanda Aldana MD PATIENT NAME: Shad Rodriguez DATE: August 16, 2020 TIME: 7:52 [facility]07-05-2021 NoteHNO ID: [id number] Author: Parish Gooden MD Service: General Surgery [...] last 168 hours. BMP: Recent Labs 08/14/20 0554 08/14/2042108/13/2044608/12/20235508/09/20 0931 GLUC 148* 131* -- 149* 122* [...] -- 1.20 1.32* CHEM: Recent Labs 08/14/20 2104 08/14/20 0554 08/14/20 0422 08/13/20 [...] CLD pending ROBF mucinex and duonebs Dilaudid INTERNAL CONTROL SPECIALIST Ancef for 24 hours Lovenox Monitor JIM output PRN antiemetics Encourage OOB and ambulation Encourage IS and pulmonary toilet Parish Gooden MD For calls on nights and weekends, please page the gen surg pager: [phone] 5:47 AM, 08/15/2020 [facility]07-04-2021 NoteHNO ID: [id number] Author: Parish Gooden MD Service: General Surgery [...] last 168 hours. BMP: Recent Labs 08/14/20 0554 08/14/2042108/13/20 0447 08/12/20235508/09/20 0931 GLUC 148* 131* -- [...] -- 1.20 1.32* CHEM: Recent Labs 08/14/20 0554 08/14/2042108/13/20 1724 08/12/20 23508/09/20 0931 ALB -- -- -- -- 4.0 [...] repair Sips and chips pending ROBF Dilaudid INTERNAL CONTROL SPECIALIST Mccabe catheter d/zackery Ancef for 24 hours Lovenox Monitor JIM output PRN antiemetics Encourage OOB and ambulation Encourage IS and pulmonary toilet Parish Gooden MD For calls on nights and weekends, please page the gen surg pager: [phone] 1:38 PM, 08/14/2020 [facility]07-03-2021 NoteHNO ID: [id number] Author: Parish Gooden MD Service: General Surgery [...] all limbs spontaneously Labs: CBC: Recent Labs 08/12/20235508/09/20 0931 WBC 14.32* 5.19 HB 14.6 14.7 [...] ventral hernia repair Clears pending ROBF Dilaudid INTERNAL CONTROL SPECIALIST Mccabe to be removed POD 2 Ancef for 24 hours Heparin > Lovenox Monitor JIM output PRN antiemetics Encourage OOB and ambulation Encourage IS and pulmonary toilet Parish Gooden MD For calls on nights and weekends, please page the gen surg pager: [phone] 8:39 AM, 08/13/2020 [facility]06-29-2021 NoteHNO ID: [id number] Author: Ledy Johns RN Service: ? Author [...] By: Ledy Johns RN In Department: [facility] NoteHNO ID: [id number] Author: Felicia Amaya MD Service: ? Author [...] No Mesh Fixation for Open Retromuscular Repairs CUSTODIAL FOREMAN: Sydney Hassan MD COORDINATOR/Research Nurse/Chief Of Production: Tiara Funes MD ? Consenting was performed by the attending surgeon, in a ppvn-nv-rkex manner, during preoperative evaluation at the General [...] [] 2. The patient is fluent in Tongan, has read the consent form and understood [...] 2. The patient is not fluent in [place]an or cannot read the consent form and/or [...] Irrigation during Ventral Hernia Repair (RINSE Trial) CUSTODIAL FOREMAN: Sydney Hassan MD COORDINATOR/Research Nurse/Chief Of Production: Tiara Funes MD ? Consenting was performed by the attending surgeon, in a agre-ss-gwvx manner, during preoperative evaluation at the General [...] [] 2. The patient is fluent in [place]an, has read the consent form and understood study procedures [x] [] (more content not included)...[facility]05-17-2021 NoteHNO ID: [id number] Author: Ronn Givens MD Service: ? 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 Planned for [...] washout trials Ronn Givens MD, PhD Resident, PGY-[facility]St[facility] Hospital[facility] + Plan note Future Appointments Appointment Date:06/19/2021 09:00:00 AM Scheduled Provider:Purnima Borden Location:FT.ONCOLOGY Appointment Type:ONC Office Visit 15 (FT) Appointment Date:06/23/2021 08:45:00 AM Scheduled Provider: Location:.CARDIO Appointment Type:Anticoagulation Follow Up 15 (FT) Future Scheduled Tests Laboratory* PT 03/07/21 * PT 04/04/21 * PT 05/02/21 * PT 05/30/21 * PT 06/27/21 * PT 07/25/21 * PT 08/22/21 * PT 09/19/21 * PT 10/17/21 * PT 11/14/21 * PT 12/12/21 * PT 01/09/22 * PT 02/06/22 * [facility] App[facility]ments Appointment Date:06/26/2021 09:30:00 AM Scheduled Provider:Purnima Borden Location:.ONCOLOGY Appointment Type:ONC Office Visit 15 (FT) Future Scheduled Tests Laboratory* PT 03/07/21 * PT 04/04/21 * PT 05/02/21 * PT 05/30/21 * PT 06/27/21 * PT 07/25/21 * PT 08/22/21 * PT 09/19/21 * PT 10/17/21 * PT 11/14/21 * PT 12/12/21 * PT 01/09/22 * PT 02/06/22 * PT 03/06/22 [facility] Future Appointments Appointment Date:08/08/2021 08:30:00 AM Scheduled Provider: [facility] Type:Anticoagulation Follow Up 15 (FT) Appointment Date:08/28/2021 12:50:00 PM Scheduled Provider: Location:[facility] Appointment Type:Surgery FT Appointment Date:12/28/2021 01:00:00 PM Scheduled Provider:Dougie Harmon DO [facility] Type:ONC Office Visit 15 (FT) Future [...] 01/09/22 * PT 02/06/22 * PT 03/06/22 [facility] Evaluation + Plan note Future Appointments Appointment Date:11/24/2021 09:30:00 AM Scheduled Provider: [facility] Type:Anticoagulation Follow Up 15 (FT) Appointment Date:12/28/2021 01:00:00 PM Scheduled Provider:Dougie Harmon DO Location:.ONCOLOGY Appointment Type:ONC Office Visit 15 (FT) Appointment Date:05/17/2022 08:00:00 AM Scheduled Provider:Yusra Denis CNP Location:[facility] Appointment Type:BADH Follow Up Future Scheduled Tests Laboratory* CBC w/ Auto Diff 12/27/21 * CEA 12/27/21 * Comprehensive Metabolic Panel 12/27/21 * PT 03/07/21 * PT 04/04/21 * PT 05/02/21 * PT 05/30/21 * PT 06/27/21 * PT 07/25/21 * PT 08/22/21 * PT 09/19/21 * PT 10/17/21 * PT 11/14/21 * PT 12/12/21 * PT 01/09/22 * PT 02/06/22 * PT 03/06/22 [facility] Evaluation + Plan note Future Appointments Appointment Date:12/28/2021 01:00:00 PM Scheduled Provider:Dougie Harmon DO Location:.ONCOLOGY Appointment Type:ONC Office Visit 15 (FT) Appointment Date:01/09/2022 09:00:00 AM Scheduled Provider: [facility] Type:Anticoagulation Follow Up 15 (FT) Appointment Date:05/17/2022 08:00:00 AM Scheduled Provider:Yusra Denis CNP Location:[facility] Appointment Type:BAD Follow Up Future Scheduled Tests Laboratory* PT 03/07/21 * PT 04/04/21 * PT 05/02/21 * PT 05/30/21 * PT 06/27/21 * PT 07/25/21 * PT 08/22/21 * PT 09/19/21 * PT 10/17/21 * PT 11/14/21 * PT 12/12/21 * PT 01/09/22 * PT 02/06/22 * PT 03/06/22 [facility] Future Appointments Appointment Date:01/09/2022 09:00:00 AM Scheduled Provider: Location:.CARDIO Appointment Type:Anticoagulation Follow Up 15 (FT) Appointment Date:05/17/2022 08:00:00 AM Scheduled Provider:Yusra Denis CNP Location:[facility] Appointment Type:BADH Follow Up Appointment Date:06/27/2022 01:30:00 PM Scheduled Provider:Dougie Harmon DO [facility] Type:ONC Office Visit 15 (FT) Future Scheduled Tests Laboratory* PT 03/07/21 * PT 04/04/21 * PT 05/02/21 * PT 05/30/21 * PT 06/27/21 * PT 07/25/21 * PT 08/22/21 * PT 09/19/21 * PT 10/17/21 * PT 11/14/21 * PT 12/12/21 * PT 01/09/22 * PT 02/06/22 * PT 03/06/22 [facility] Future Appointments Appointment Date:06/01/2022 09:30:00 AM Scheduled Provider: [facility] Type:Anticoagulation Follow Up 15 (FT) Appointment Date:06/15/2022 08:00:00 AM Scheduled Provider:Yusra Denis CNP Location:[facility] Appointment Type:BAD Follow Up Appointment Date:06/27/2022 02:00:00 PM Scheduled Provider:Dougie Harmon DO [facility] Type:ONC Office Visit 15 (FT) Future [...] PT 03/06/22 * Vitamin B12 Level 05/17/22 [facility] Evaluation + Plan note Future Appointments Appointment Date:06/27/2022 08:20:00 AM Scheduled Provider:Yusra Denis CNP Location:[facility] Appointment Type:BADH Follow Up Appointment Date:06/27/2022 02:00:00 PM Scheduled Provider:Dougie Harmon DO [facility] Type:ONC Office Visit 15 (FT) Appointment Date:07/10/2022 09:30:00 AM Scheduled Provider: [facility] Type:Anticoagulation Follow Up 15 (FT) Future [...] PT 03/06/22 * Vitamin B12 Level 05/17/22 [facility] Hospital course Narrative No data available for this section [facility] No data available for this section [facility] No data available for this section [facility] Purpose Family History No Family History [...] Directives Records Found Hospital Course Note [address] [place] [address] Discharge Summary Signed:[id number] Name: CEASARGULSHANSHAD MRUN: [id number] : 1950 Loc: 3S Age / Sex: 68/ M Adm Status: ADM Leonor Adm Date:06/03/19 Room/Bed: [facility]- Date of Service - Date of Service Date: 06/05/19 - Time Spent on Discharge Minutes spent on discharge:: 45 - Hospital Summary Hospital Summary:: This is a pleasant 68-year-old male with a history of diabetes mellitus and colon cancer was brought into the emergency room by the correctional security officer for further evaluation and management of a syncopal event. Patient was in his usual state of health until this afternoon. 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 He was taking the exit to get to the Highway around 4:30 PM after exchanging the trailer with his colleague. He felt like his truck is spinning around. The next thing he knew was correctional security officer were knocking on the door. He was [...] section and content) DATE CREATED AUTHOR 01/23/2018 [facility] DATE CREATED AUTHOR AUTHOR'S ORGANIZ ATION 04/12/2020 [facility] DATE CREATED AUTHOR AUTHOR'S ORGANIZ ATION 03/09/2021 [facility] DATE CREATED AUTHOR AUTHOR'S ORGANIZ ATION 12/23/2021 [facility] DATE CREATED AUTHOR AUTHOR'S ORGANIZ ATION 01/02/2023 [facility] DATE CREATED AUTHOR AUTHOR'S ORGANIZ ATION 01/25/2023 [facility] Care Team (unrecognized sect ion and content) Personnel Name: Shad Dyson MD Address: [address] [place] [address] Name: Josephine Zambrano MA Name: Aggie Colorado MA Personnel Name: Shad Dyson MD Address: Address: [address] [place] [address] Name: Josephine Zambrano MA Name: Aggie [place] MA Personnel Name: Shad Dyson MD Address: Address: [address] [place] [address] Name: Juan Manuel BARAHONA Josephine R Name: Aggie Colorado MA S Personnel Name: Shad Dyson MD Address: Address: [address] [place] [address] Name: Josephine Zambrano MA R Name: Aggie [place] MA S Personnel Name: Shad Dyson MD Address: Address: [address] [place] [address] Name: Juan ManuelJosephine mayen MA R Name: Aggie [place] MA S Personnel Name: Shad Dyson MD Address: Address: [address] [place] [address]- Name: Juan ManuelJosephine mayen MA R Name: Aggie [place] MA S Personnel Name: Shad Dyson MD Address: Address: [address] [place] [address] Name: Juan ManuelJosephine mayen MA R Name: Aggie [place] MA S Personnel Name: Shad Dyson MD Address: Address: [address] [place] [address] Name: Juan Manuel BARAHONA Josephine R Name: Aggie [place] MA S FOR RECORDS PERTAINING TO PATIENTS WHO ARE [...] BE BASED ON THE PRIMARY CLINICAL RECORDS. [facility] [employer] [facility] provides no warranty or guarantee of the accuracy or completeness of information in this document.
--- NOTE | 2023-03-23 12:02 | XR_ITS ---
The [address] [address] Patient Name: LAKIA RODRIGUEZ MRN: [id number] date: 1950 Sex: M Assigned Patient Location: ER Current Patient Location: ED.MAIN Accession/Order Number: [id number] Exam Date: 03/23/2023 12:18 Report Date: 03/23/2023 12:44 At the request of: XUAN MOSQUEDA Procedure: XR chest 1V PROCEDURE: XR chest 1V DATE: 03/23/2023 11:18 AM LETTERER COMPARISONS: 01/12/2023 CLINICAL INDICATION: 72 years Male cough FINDINGS: The heart is stable. Left hilar calcified nodes are again identified. Few scattered granulomata are noted of the lungs with the lungs otherwise clear. There is no evidence of pleural effusion or pneumothorax. Electronic cardiac device is in stable position. XR/XR chest 1V IMPRESSION: Stable chest. No infiltrates to suggest pneumonia. Electronically authenticated by: VINNIE FRANCIS Date: 03/23/2023 12:44
--- NOTE | 2023-03-23 12:02 | ECG_ITS ---
The [facility] Test Date: 2023-03-23 Pat Name: LAKIA RODRIGUEZ Department: Room: - Gender: Male Remote Sensing Specialist: : 1950 Requested By: SILVIO AGUILA Order Number: [id number] Reading MD: YONATHAN DOMINGUEZ Measurements Intervals [employer] Rate: 60 P: 58 ID: [id number] QRS: 238 QRSD: 104 T: 66 QT: 428 QTc: 429 Interpretive Statements 1100 Sinus rhythm 5120 Possible right ventricular hypertrophy Low voltage across the precordium 9130 borderline ECG Electronically Signed On 03-24-2023 7:24:02 EST by YONATHAN DOMINGUEZ
[2023-03-23 12:10] LABS: Basophils Percent Auto 0.3 % (0.2-2.0); Eosinophils Absolute Auto 0.3 10^3/uL (0.0-0.7); Eosinophils Percent Auto 2.1 % (0.9-7.0); Hematocrit 54.5 % (42.0-54.0); Hemoglobin 17.4 g/dL (14.0-18.0); Immature Granulocytes Abs Auto 0.07 10^3/uL (0.00-0.03); Immature Granulocytes Pct Auto 0.5 % (0.0-0.5); Lymphocytes Absolute Auto 1.4 10^3/uL (1.2-3.8); Lymphocytes Percent Auto 10.1 % (20.5-60.0); Mean Corpuscular HGB Conc 31.9 g/dL (29.9-35.2); Mean Corpuscular Hemoglobin 29.5 pg (25.9-34.0); Mean Corpuscular Volume 92.5 fL (80.0-94.0); Mean Platelet Volume 10.4 fL (9.5-13.5); Monocytes Absolute Auto 0.9 10^3/uL (0.3-0.8); Monocytes Percent Auto 6.7 % (1.7-12.0); Neutrophils Absolute Auto 11.2 10^3/uL (1.4-6.5); Neutrophils Percent Auto 80.3 % (43.0-75.0); Platelet Count 221 10^3/uL (150-450); Red Blood Count 5.89 10^6/uL (4.70-6.10); Red Cell Distribution Width 14.4 % (11.0-15.0); White Blood Count 13.9 10^3/uL (4.0-11.0)
[2023-03-23 12:19] LABS: Alanine Aminotransferase 39 U/L (16-63); Albumin Globulin Ratio 0.9; Albumin Level 3.7 g/dL (3.4-5.0); Alkaline Phosphatase 110 U/L (46-116); Anion Gap 12.5; Aspartate Amino Transferase 26 U/L (15-37); Bilirubin Total 0.5 mg/dL (0.2-1.0); Calcium 9.3 mg/dL (8.5-10.1); Carbon Dioxide 30.1 mmol/L (21.0-32.0); Chloride 104 mmol/L (98-107); Estimated GFR (African America 51 (>=60); Estimated GFR (Non-African Ame 42 (>=60); Globulin 4.3 g/dL; Glucose 135 mg/dL (74-106); Potassium 4.6 mmol/L (3.5-5.1); Sodium 142 mmol/L (136-145)
[2023-03-23] MEDS: 0.9 % SODIUM CHLORIDE 1,000 ML 1000 ML IV (12:21)
[2023-03-23 12:22] LABS: Troponin I High Sensitivity 8.6 pg/mL (4.0-76.1)
[2023-03-23] MEDS: METHYLPREDNISOLONE SOD SUCC PF 125 MG/2 ML VIAL IVP (12:24)
[2023-03-23] MEDS: IPRATROPIUM/ALBUTEROL SULFATE 3 ML AMPUL.NEB IH ×3 (12:36→23:27)
[2023-03-23 12:37] LABS: INR 3.97; Prothrombin Time 38.9 sec (9.0-11.6)
[2023-03-23 13:17] LABS: Adenovirus NOT DETECTED (NOT DETECTE); Bordetella parapertussis NOT DETECTED (NOT DETECTE); Coronavirus 229E NOT DETECTED (NOT DETECTE); Coronavirus HKU1 NOT DETECTED (NOT DETECTE); Coronavirus NL63 NOT DETECTED (NOT DETECTE); Human Metapneumovirus NOT DETECTED (NOT DETECTE); Human Rhinovirus/Enterovirus NOT DETECTED (NOT DETECTE); Influenza A NOT DETECTED (NOT DETECTE); Influenza B NOT DETECTED (NOT DETECTE); Mycoplasma pneumoniae NOT DETECTED (NOT DETECTE); Parainfluenza Virus 1 NOT DETECTED (NOT DETECTE); Parainfluenza Virus 2 NOT DETECTED (NOT DETECTE); Parainfluenza Virus 3 NOT DETECTED (NOT DETECTE); Parainfluenza Virus 4 NOT DETECTED (NOT DETECTE); Respiratory Syncytial Virus NOT DETECTED (NOT DETECTE); SARS-CoV-2 NOT DETECTED (NOT DETECTE)
[2023-03-23 14:15] LABS: Coronavirus OC43 DETECTED (NOT DETECTE)
[2023-03-23] MEDS: DOXYCYCLINE HYCLATE 100 MG in 0.9 % SODIUM CHLORIDE 100 ML IV (14:20)
--- NOTE | 2023-03-23 14:37 | ED_ITS ---
HPI - General Adult General Chief complaint: Weakness Stated complaint: WEAKNESS Time Seen by Provider: 03/23/23 12:00 Source: patient Mode of arrival: Wheelchair Limitations: no limitations History of Present Illness HPI narrative: The patient presenting to the ER with few days history of weakness that is generalized, associated with shortness of breath and cough although he did mention that the shortness of breath got worse today when he was walking he noted that he could not make at home. He denies any chest pain at any time he denies any dizziness. The patient denies any abdominal pain Related Data Home Medications Medication Instructions Recorded Confirmed amlodipine 2.5 mg tablet 2.5 mg PO DAILY 11/24/22 03/23/23 atorvastatin 10 mg tablet 10 mg PO DAILY 11/24/22 03/23/23 glipizide 5 mg tablet 5 mg PO DAILY 11/24/22 03/23/23 lisinopril 2.5 mg tablet 2.5 mg PO DAILY 11/24/22 03/23/23 warfarin 4 mg tablet 4 mg PO DAILY 11/24/22 03/23/23 amiodarone 200 mg tablet 400 mg PO DAILY 03/23/23 03/23/23 dapagliflozin propanediol 10 mg 10 mg PO DAILY 03/23/23 03/23/23 tablet (Farxiga) metoprolol succinate 50 mg 50 mg PO DAILY 03/23/23 03/23/23 tablet,extended release 24 hr multivitamin with minerals-folic 1 tab PO DAILY 03/23/23 03/23/23 acid 200 mcg chewable tablet (Daily Gummies) pantoprazole 40 mg tablet,delayed 40 mg PO DAILY 03/23/23 03/23/23 release Allergies Allergy/AdvReac Type Severity Reaction Status Date / Time Penicillins Allergy Unknown Verified 01/12/23 16:20 Review of Systems ROS Status of ROS 10 or more systems reviewed and unremark able except as noted in history and below [facility] Social History Smoking status: Never smoker Exam Narrative Exam Narrative: Nurses notes and vital signs reviewed and patient is not hypoxic. General: Well-appearing and in no apparent distress. Skin: Warm, dry, no pallor noted. No rash. Head: Normocephalic, atraumatic. Neck: Supple, non-tender. Eye: Pupils are equal, round and EOMI. No scleral icterus. Ears, Nose, Mouth, and Throat: TM are clear, no nasal mucosal hypertrophy. Oral mucosa is moist, no posterior oropharynx erythema, uvula is mid-line Cardiovascular: Regular Rate and Rhythm without murmur, gallop or rub. Respiratory: No accessory muscle use or respiratory distress. Lungs the patient have bilateral expiratory lung wheezes in both lung christianson Chest Wall: no tenderness Back: No midline thoracic or lumbar vertebral tenderness. No CVA tenderness Musculoskeletal: normal ROM, no calf or popliteal tenderness, no lower extremity edema/swelling GI: Abdomen is soft, non-distended. Normal bowel sounds. No masses appreciated. No tenderness to palpation. No rebound, guarding, or rigidity noted. Neurological: A&O x4. No cranial nerve dysfunction observed. No truncal ataxia. Moves all extremities. Sensation intact. Psychiatric: Cooperative and interactive. Normal mood and affect. Constitutional Vital Signs, click to edit/add: Last Vital Signs Pulse 65 03/23/23 14:24 Resp 18 03/23/23 14:24 BP 113/49 03/23/23 14:24 Pulse Ox 95 03/23/23 14:24 O2 Del Method Room Air 03/23/23 14:24 Course Vital Signs Vital signs: Vital Signs Pulse Rate 65 03/23/23 11:47 Respiratory Rate 23 03/23/23 11:47 Pulse Rate 65 03/23/23 14:24 Respiratory Rate 18 03/23/23 14:24 Blood Pressure 113/49 03/23/23 14:24 Pulse Oximetry 95 03/23/23 14:24 Oxygen Delivery Method Room Air 03/23/23 14:24 Medical Decision Making [facility] Narrative Medical decision making narrative: The patient EKG showing sinus rhythm heart rate is [address] elevation or depression The patient CBC shows leukocytosis blood culture obtained Chest x-ray showed no acute significant pathology The patient chemistry showing chronic kidney disease The patient still wheezing after initial breathing treatment and Solu-Medrol treatment the patient was positive for COVID- and January 2023 right now he is positive for the coronavirus on the respiratory panel The patient be admitted for asthma exacerbation and will be covered with antibiotic for possible pneumonia Lab Data Labs: Lab Results 03/23/23 03/23/23 Range/Units 11:40 11:50 WBC 13.9 H (4.0-11.0) 10^3/uL RBC 5.89 (4.70-6.10) 10^6/uL Hgb 17.4 (14.0-18.0) g/dL Hct 54.5 H (42.0-54.0) % MCV 92.5 (80.0-94.0) fL MCH 29.5 (25.9-34.0) pg MCHC 31.9 (29.9-35.2) g/dL RDW 14.4 (11.0-15.0) % Plt Count 221 (150-450) 10^3/uL MPV 10.4 (9.5-13.5) fL Neut % (Auto) 80.3 H (43.0-75.0) % Lymph % (Auto) 10.1 L (20.5-60.0) % [place] % (Auto) 6.7 (1.7-12.0) % Eos % (Auto) 2.1 (0.9-7.0) % Baso % (Auto) 0.3 (0.2-2.0) % Neut # (Auto) 11.2 H (1.4-6.5) 10^3/uL Lymph # (Auto) 1.4 (1.2-3.8) 10^3/uL [place] # (Auto) 0.9 H (0.3-0.8) 10^3/uL Eos # (Auto) 0.3 (0.0-0.7) 10^3/uL Baso # (Auto) 0.0 (0.0-0.1) 10^3/uL Abs Immat Gran (auto) 0.07 H (0.00-0.03) 10^3/uL Imm/Tot Granulo (auto) 0.5 (0.0-0.5) % PT 38.9 H (9.0-11.6) sec INR 3.97 Sodium 142 (136-145) mmol/L Potassium 4.6 (3.5-5.1) mmol/L Chloride 104 (98-107) mmol/L Carbon Dioxide 30.1 (21.0-32.0) mmol/L Anion Gap 12.5 BUN 21.0 H (7.0-18.0) mg/dL Creatinine 1.62 H (0.70-1.30) mg/dL Est GFR ( Amer) 51 L (>=60) Est GFR (Non-Af Amer) 42 L (>=60) BUN/Creatinine Ratio 13.0 Glucose 135 H (74-106) mg/dL Calcium 9.3 (8.5-10.1) mg/dL Total Bilirubin 0.5 (0.2-1.0) mg/dL AST 26 (15-37) U/L ALT 39 (16-63) U/L Alkaline Phosphatase 110 (46-116) U/L Troponin I High Sens 8.6 (4.0-76.1) pg/mL Total Protein 8.0 (6.4-8.2) g/dL Albumin 3.7 (3.4-5.0) g/dL Globulin 4.3 g/dL Albumin/Globulin Ratio 0.9 Adenovirus (PCR) Not detected (NOT DETECTE) C. pneumoniae DNA (PCR) Not detected (NOT DETECTE) Coronavirus Type OC43 Detected A (NOT DETECTE) Coronavirus Type HKU1 Not detected (NOT DETECTE) Coronavirus Type 229E Not detected (NOT DETECTE) Coronavirus Type NL63 Not detected (NOT DETECTE) Human Metapneumovir PCR Not detected (NOT DETECTE) M. pneumoniae (PCR) Not detected (NOT DETECTE) Parainfluenza PCR Not detected (NOT DETECTE) Parainfluenza 2 (PCR) Not detected (NOT DETECTE) Parainfluenza 3 (PCR) Not detected (NOT DETECTE) Parainfluenza 4 (PCR) Not detected (NOT DETECTE) RSV (RT-PCR) Not detected (NOT DETECTE) Entero/Rhino (PCR) Not detected (NOT DETECTE) SARS-CoV-2 (PCR) Not detected (NOT DETECTE) Bordetella pertussis (PCR) Not detected (NOT DETECTE) B parapertussis DNA PCR Not detected (NOT DETECTE) Influenza Type A (PCR) Not detected (NOT DETECTE) Influenza Type B (PCR) Not detected (NOT DETECTE) Discharge Plan Discharge Chief Complaint: Weakness Clinical Impression: Coronavirus infection Leukocytosis Qualifiers: Leukocytosis type: other Qualified Code(s): D72.828 - Other elevated white blood cell count Acute asthma exacerbation Qualifiers: Asthma severity: moderate Asthma persistence: persistent Qualified Code(s): J45.41 - Moderate persistent asthma with (acute) exacerbation Patient Disposition: Admitted as Observation Time of Disposition Decision: 14:38
[2023-03-23 14:53] LABS: Lactate/Lactic Acid 2.5 mmol/L (0.4-2.0)
[2023-03-23 15:12] LABS: Bilirubin Urine NEGATIVE (NEGATIVE); Blood Urine TRACE-I (NEGATIVE); Clarity Urine CLEAR (CLEAR); Color Urine LT. YELLOW (YELLOW); Glucose Urine UA >=1000 mg/dL (NEGATIVE); Ketones Urine NEGATIVE (NEGATIVE); Leukocyte Esterase Urine NEGATIVE (NEGATIVE); Nitrite Urine NEGATIVE (NEGATIVE); Protein Urine NEGATIVE (NEG/TRACE)
[2023-03-23 15:13] LABS: Urine Microscopic Indicated YES
[2023-03-23 15:28] LABS: Bacteria Urine NONE SEEN #/HPF (NONE SEEN); Cast Seen? NONE SEEN #/LPF (NONE SEEN); Crystals Seen? None Seen #/HPF (None Seen); Mucus Urine NONE SEEN (NONE SEEN); Squamous Epithelial Cell Urine NONE SEEN #/LPF (NONE/RARE); Urine Culture Indicated NO; WBC Urine NONE SEEN #/HPF (NONE SEEN)
[2023-03-23 15:33] LABS: INR 4.08; Prothrombin Time 39.9 sec (9.0-11.6)
--- OUTSIDE RECORDS SUMMARY | 2023-03-23 15:42 | XMS_ITS | CCD ---
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 [employer] Name Role Phone DOMINGO SARAVIA Unavailable Unavailab Shad May Primary Care Physician [phone] Josephine Zambrano Unavailable Unavailable Aggie [place] Unavailable [...] MARTIN Referring Unavailable ADRIANA KIRKLAND Attending Unavailab ADRIAAN Segal Consulting Unavailab ADRIANA Segal Referring Unavailab le MATILDE, HAYLEY Referring Unavailable GANGWANI, ADRIANA SANTOS Referring Unavailab le GANGWANI, ADRIANA SANTOS Referring Unavailab le TERENCE, NORI Attending Unavailable GANGWANI, ADRIANA SANTOS Referring Unavailab le TERENCE, NORI Attending Unavailable TERENCE, NOIR Attending Unavailable ANABELA, JESUS Referring Unavailable ANABELA, [...] reactions to drug (disorder) 6 AOF, unknown [facility] Repository (5 sources) RAGWEED; 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: [RAGWEED] Propensity to adverse reactions to drug (disorder) 6 Dyspnea (finding) [facility] Repository (1 source) house dust allergenic extract; 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: [HOUSE DUST] Drug Allergy 3 [facility] Repository Medications Current Medications Medication Drug Class(es) Dates Sig (Normalized) Sig (Original) albuterol HFA 90 mcg/inh MDI (11 sources) Start: 05-13-2018 take 2 puff(s) by inhalation four times daily for wheezing albuterol HFA 90 mcg/inh MDI 2 puff(s), Inhalation, QID for wheezing, 6.7 gram, Refill(s) 0, [facility]/pharmacy #[id number] Start Date: 05/13/18 Status: Ordered amLODIPine 2.5 [...] BID, # 60 tab(s), Refills(s) 5, Pharmacy: [facility]/pharmacy #[id number] Start Date: 08/29/18 Status: Ordered atorvastatin 10 [...] 1 EA, Refill(s) 0, Prior to colonoscopy., [facility]/pharmacy #[id number], 167.6, cm, 07/19/21 8:57:00 EDT, [...] Date: 05/12/18 Status: Ordered polyethylene glycol 3350 92311 mg powder for oral solution (8 sources) [...] day, # 21 tab(s), Refills(s) 0, Pharmacy: [facility]/pharmacy #[id number] Start Date: 05/13/18 Status: Ordered psyllium 525 mg oral capsule (3 sources) Start: 05-17-2022 End: 06-22-2023 take 5 capsules by mouth once daily Metamucil 525 mg oral capsule 2,625 mg = 5 cap(s), Oral, Daily, X 90 day(s), # 450 cap(s), Refills(s) 3, [id number] 167.6, cm, 06/27/22 8:28:00 EDT, Height/Length [...] results, # 90 tab(s), Refills(s) 0, [id number] 167.6, cm, 01/02/19 13:46:00 EST, Height/Length [...] disease (4 sources) Atherosclerotic heart disease of [place] coronary artery without angina pectoris; 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: [Coronary [...] sources) Long-term current use of anticoagulant; 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] Episodic Other aftercare (2 sources) 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 Documentationon 12-06-[address] [facility] 30on 12-05-[address] [facility] BASIC METABOLIC PANELon 11-12 Anion gap [Moles/Vol] 10 mmol/L Normal 7-20 [facility] Comment on above: Performed By: #### L [id number] ####[facility] ([facility])[address] [place] [address] Calcium [Mass/Vol] 9.3 mg/dL Normal 8.6-10.3 [facility] Comment on above: Performed By: #### L [id number] ####[facility] ([facility])[address] [place] [address] Chloride [Moles/Vol] 104 mmol/L Normal 98-107 [facility] Comment on above: Performed By: #### L [id number] ####[facility] ([facility])[address] [place] [address] CO2 [Moles/Vol] 24 mmol/L Normal 21-31 [facility] Comment on above: Performed By: #### L [id number] ####[facility] ([facility])[address] [place] [address] Creatinine [Mass/Vol] 1.20 mg/dL Normal 0.70-1.30 [facility] Comment on above: Performed By: #### L [id number] ####[facility] ([facility])[address] [place] [address] GLOMERULAR FILTRATION RATE ML/MIN/1.73 SQ M.PREDICTED 65.1 mL/min/1.73m*2 Normal >60.0 [facility] Comment on above: Result Comment: [facility]???s estimated glomerular filtration rate (eGFR) will [...] individuals. Performed By: #### L [id number] ####[facility] ([facility] [place] [address] Glucose [Mass/Vol] 148 mg/dL High 70-100 [facility] Comment on above: Performed By: #### L [id number] ####[facility] ([facility] [place] [address] Potassium [Moles/Vol] 4.3 mmol/L Normal 3.5-5.1 [facility] Comment on above: Performed By: #### L [id number] ####[facility] ([facility] [place] [address] Sodium [Moles/Vol] 134 mmol/L Low 136-145 [facility] Comment on above: Performed By: #### L [id number] ####[facility] ([facility] [place] [address] Urea nitrogen [Mass/Vol] 28 mg/dL High 7-25 [facility] Comment on above: Performed By: #### L [id number] ####[facility] ([facility])[address] [place] [address] UREA NITROGEN/CREATININE (MASS RATIO) IN SER/PLAS 23.[address] [facility] Comment on above: Performed By: #### L [id number] ####[facility] ([facility])[address] [place] [address] CBCon 12-05-2022 Erythrocyte distribution width (RBC) [Ratio] 14.3 % Normal 11.5-15.0 [facility] Comment on above: Performed By: #### L [id number] ####[facility] ([facility])[address] [place] [address] ERYTHROCYTE MEAN CORPUSCULAR HEMOGLOBIN CONCENTRATION (G/DL) BY AUTOMATED 33.5 g/dL Normal 32.0-35.0 [facility] Comment on above: Performed By: #### L [id number] ####[facility] ([facility] [place] [address] Hematocrit (Bld) [Volume fraction] 39.4 % Normal 39.0-55.0 [facility] Comment on above: Performed By: #### L [id number] ####[facility] ([facility])[address] [place] [address] Hemoglobin (Bld) [Mass/Vol] 13.2 g/dL Normal 13.0-17.0 [facility] Comment on above: Performed By: #### L [id number] ####[facility] ([facility])[address] [address] IMMATURE PLATELET FRACTION % 2.2 % Normal 0.8-6.3 [facility] Comment on above: Performed By: #### L [id number] ####[facility] ([facility])[address] [place] [address] MCH (RBC) [Entitic mass] 29.7 pg Normal 27.0-33.0 [facility] Comment on above: Performed By: #### L [id number] ####[facility] ([facility])[address] [place] [address] MCV (RBC) [Entitic vol] 88.5 fL Normal 82.0-98.0 [facility] Comment on above: Performed By: #### L [id number] ####[facility] ([facility])[address] [place] [address] PLATELETS (10*3/UL) IN BLOOD AUTOMATED COUNT 132 10*3/uL Low 150-400 [facility] Comment on above: Performed By: #### L [id number] ####[facility] ([facility])[address] [place] [address] RBC (Bld) [#/Vol] 4.45 10*6/uL Normal 4.20-5.70 [facility] Comment on above: Performed By: #### L [id number] ####[facility] ([facility])[address] [address] WBC (Bld) [#/Vol] 6.95 10*3/uL Normal 4.00-10.60 [facility] Comment on above: Performed By: #### L [id number] ####[facility] ([employer] [place] [address] DSon 12-05-[address] [facility] POCT GLUCOSE METER UNSOLICIT ED RESULTSon 12-05-2022 Glucose [Mass/Vol] 147 mg/dL High 70-105 [facility] Comment on above: Order Comment: Waive d Testing in the ED is performed under the ED CLIA certificate #[id number]. Result Comment: [email or web address] Performed By: #### L [id number] ####[facility] ([facility])[address] [place] [address] Glucose [Mass/Vol] 185 mg/dL High 70-105 [facility] Comment on above: Order Comment: Waive d Testing in the ED is performed under the ED CLIA certificate #[id number]. Result Comment: [email or web address] [email or web address] Performed By: #### L [id number] ####[facility] ([facility])[address] [address] Glucose [Mass/Vol] 153 mg/dL High 70-105 [facility] Comment on above: Order Comment: Waive d Testing in the ED is performed under the ED CLIA certificate #[id number]. Result Comment: [email or web address] Performed By: #### L [id number] ####[facility] ([facility])[address] [place] [address] 30on 12-04-2022 30 The patient is Moderately Stable - Low risk of patient condition declining or worsening The patient's goals for the shift include comfort The clinical goals for the shift include stable vitals Normal [facility] [address] [facility] 30 The patient is Moderately Stable - Low risk of patient condition declining or worsening The patient's goals for the shift include Comfort The clinical goals for the shift include VSS Normal [facility] BASIC METABOLIC PANELon - Anion gap [Moles/Vol] 11 mmol/L Normal 7-20 [facility] Comment on above: Performed By: #### L [id number] ####[facility] ([facility] [place] [address] Calcium [Mass/Vol] 8.9 mg/dL Normal 8.6-10.3 [facility] Comment on above: Performed By: #### L [id number] ####[facility] ([facility] [place] [address] Chloride [Moles/Vol] 105 mmol/L Normal 98-107 [facility] Comment on above: Performed By: #### L [id number] ####[facility] ([facility])[address] [place] [address] CO2 [Moles/Vol] 23 mmol/L Normal 21-31 [facility] Comment on above: Performed By: #### L [id number] ####[facility] ([facility])[address] [place] [address] Creatinine [Mass/Vol] 1.32 mg/dL High 0.70-1.30 [facility] Comment on above: Performed By: #### L [id number] ####[facility] ([facility])[address] [place] [address] GLOMERULAR FILTRATION RATE ML/MIN/1.73 SQ M.PREDICTED 58.0 mL/min/1.73m*2 Low >60.0 [facility] Comment on above: Result Comment: [facility]???s estimated glomerular filtration rate (eGFR) will [...] individuals. Performed By: #### L [id number] ####[facility] ([facility])[address] [place] [address] Glucose [Mass/Vol] 144 mg/dL High 70-100 [facility] Comment on above: Performed By: #### L [id number] ####[facility] ([facility])[address] [place] [address] Potassium [Moles/Vol] 4.5 mmol/L Normal 3.5-5.1 [facility] Comment on above: Performed By: #### L [id number] ####[facility] ([facility])[address] [place] [address] Sodium [Moles/Vol] 134 mmol/L Low 136-145 [facility] Comment on above: Performed By: #### L [id number] ####[facility] ([facility])[address] [place] [address] Urea nitrogen [Mass/Vol] 37 mg/dL High 7-25 [facility] Comment on above: Performed By: #### L [id number] ####[facility] ([facility] [place] [address] UREA NITROGEN/CREATININE (MASS RATIO) IN SER/PLAS 28.[address] [facility] Comment on above: Performed By: #### L [id number] ####[facility] ([facility])[address] [place] [address] CBCon 12-04-2022 Erythrocyte distribution width (RBC) [Ratio] 14.9 % Normal 11.5-15.0 [facility] Comment on above: Performed By: #### L [id number] ####[facility] ([facility])[address] [place] [address] ERYTHROCYTE MEAN CORPUSCULAR HEMOGLOBIN CONCENTRATION (G/DL) BY AUTOMATED 32.6 g/dL Normal 32.0-35.0 [facility] Comment on above: Performed By: #### L [id number] ####[facility] ([facility])[address] [place] [address] Hematocrit (Bld) [Volume fraction] 39.0 % Normal 39.0-55.0 [facility] Comment on above: Performed By: #### L [id number] ####[facility] ([facility])[address] [place] [address] Hemoglobin (Bld) [Mass/Vol] 12.7 g/dL Low 13.0-17.0 [facility] Comment on above: Performed By: #### L [id number] ####[facility] ([facility])[address] [place] [address] IMMATURE PLATELET FRACTION % 3.8 % Normal 0.8-6.3 [facility] Comment on above: Performed By: #### L [id number] ####[facility] ([facility])[address] [place] [address] MCH (RBC) [Entitic mass] 29.6 pg Normal 27.0-33.0 [facility] Comment on above: Performed By: #### L [id number] ####[facility] ([facility])[address] [place] [address] MCV (RBC) [Entitic vol] 90.9 fL Normal 82.0-98.0 [facility] Comment on above: Performed By: #### L [id number] ####[facility] ([facility])[address] [place] [address] PLATELETS (10*3/UL) IN BLOOD AUTOMATED COUNT 130 10*3/uL Low 150-400 [facility] Comment on above: Performed By: #### L [id number] ####[facility] ([facility])[address] [place] [address] RBC (Bld) [#/Vol] 4.29 10*6/uL Normal 4.20-5.70 [facility] Comment on above: Performed By: #### L [id number] ####[facility] ([facility])[address] [place] [address] WBC (Bld) [#/Vol] 6.97 10*3/uL Normal 4.00-10.60 [facility] Comment on above: Performed By: #### L [id number] ####[facility] ([facility])[address] [place] [address] POCT GLUCOSE METER UNSOLICIT ED RESULTSon 10-24-2023 Glucose [Mass/Vol] 167 mg/dL High 70-105 [facility] Comment on above: Order Comment: Waive d Testing in the ED is performed under the ED CLIA certificate #[id number]. Result Comment: aung sellres Performed By: #### L [id number] ####[facility] ([facility])[address] [address] Glucose [Mass/Vol] 105 mg/dL Normal 70-105 [facility] Comment on above: Order Comment: Waive d Testing in the ED is performed under the ED CLIA certificate #[id number]. Result Comment: dayval perryy Performed By: #### L [id number] ####[facility] ([facility])[address] [place] [address] Glucose [Mass/Vol] 152 mg/dL High 70-105 [facility] Comment on above: Order Comment: Waive d Testing in the ED is performed under the ED CLIA certificate #[id number]. Result Comment: [email or web address] Performed By: #### L [id number] ####[facility] ([facility])[address] [address] 30on 12-03-2022 30 The patient is Moderately Stable - Low risk of patient condition declining or worsening The patient's goals for the shift include comfort The clinical goals for the shift include stable vitals Normal [facility] 30 The patient is Moderately Stable - Low risk of patient condition declining or worsening The patient's goals for the shift include Comfort The clinical goals for the shift include VSS Normal [facility] [address] [facility] ANESon 12-03-[address] [facility] ANES Normal [facility] Anesthesiaon 12-03-2022 Anesthesia [id number] Shad Rodriguez 1950 M Date Provider Department Center 12/03/2022 YONATHAN REBOLLEDO [facility] [place] [facility] No family history on file Normal [facility] BASIC METABOLIC PANELon 11-12 Anion gap [Moles/Vol] 12 mmol/L Normal 7-20 [facility] Comment on above: Performed By: #### L [id number] ####[facility] ([facility])[address] [place] [address] Calcium [Mass/Vol] 9.6 mg/dL Normal 8.6-10.3 [facility] Comment on above: Performed By: #### L [id number] ####[facility] ([facility])[address] [place] [address] Chloride [Moles/Vol] 101 mmol/L Normal 98-107 [facility] Comment on above: Performed By: #### L [id number] ####[facility] ([facility])[address] [place] [address] CO2 [Moles/Vol] 21 mmol/L Normal 21-31 [facility] Comment on above: Performed By: #### L [id number] ####[facility] ([facility])[address] [place] [address] Creatinine [Mass/Vol] 1.78 mg/dL High 0.70-1.30 [facility] Comment on above: Performed By: #### L [id number] ####[facility] ([facility])[address] [place] [address] GLOMERULAR FILTRATION RATE ML/MIN/1.73 SQ M.PREDICTED 40.5 mL/min/1.73m*2 Low >60.0 [facility] Comment on above: Result Comment: [facility]???s estimated glomerular filtration rate (eGFR) will [...] ####[facility] ([facility])[address] [place] [address] Glucose [Mass/Vol] 194 mg/dL High 70-100 [facility] Comment on above: Performed By: #### L [id number] ####[facility] ([facility] [place] [address] Potassium [Moles/Vol] 4.3 mmol/L Normal 3.5-5.1 [facility] Comment on above: Performed By: #### L [id number] ####[facility] ([facility] [place] [address] Sodium [Moles/Vol] 130 mmol/L Low 136-145 [facility] Comment on above: Performed By: #### L [id number] ####[facility] ([facility] [place] [address] Urea nitrogen [Mass/Vol] 47 mg/dL High 7-25 [facility] Comment on above: Performed By: #### L [id number] ####[facility] ([facility])[address] [place] [address] UREA NITROGEN/CREATININE (MASS RATIO) IN SER/PLAS 26.[address] [facility] Comment on above: Performed By: #### L [id number] ####[facility] ([facility] [place] [address] CBCon 12-03-2022 Erythrocyte distribution width (RBC) [Ratio] 14.9 % Normal 11.5-15.0 [facility] Comment on above: Performed By: #### L [id number] ####[facility] ([facility] [place] [address] ERYTHROCYTE MEAN CORPUSCULAR HEMOGLOBIN CONCENTRATION (G/DL) BY AUTOMATED 32.9 g/dL Normal 32.0-35.0 [facility] Comment on above: Performed By: #### L [id number] ####[facility] ([facility])[address] [place] [address] Hematocrit (Bld) [Volume fraction] 41.0 % Normal 39.0-55.0 [facility] Comment on above: Performed By: #### L [id number] ####[facility] ([facility])[address] [place] [address] Hemoglobin (Bld) [Mass/Vol] 13.5 g/dL Normal 13.0-17.0 [facility] Comment on above: Performed By: #### L [id number] ####[facility] ([facility])[address] [address] MCH (RBC) [Entitic mass] 29.3 pg Normal 27.0-33.0 [facility] Comment on above: Performed By: #### L [id number] ####[facility] ([facility])[address] [address] MCV (RBC) [Entitic vol] 89.1 fL Normal 82.0-98.0 [facility] Comment on above: Performed By: #### L [id number] ####[facility] ([facility])[address] [place] [address] PLATELETS (10*3/UL) IN BLOOD AUTOMATED COUNT 134 10*3/uL Low 150-400 [facility] Comment on above: Performed By: #### L [id number] ####[facility] ([facility])[address] [address] RBC (Bld) [#/Vol] 4.60 10*6/uL Normal 4.20-5.70 [facility] Comment on above: Performed By: #### L [id number] ####[facility] ([facility])[address] [place] [address] WBC (Bld) [#/Vol] 10.62 10*3/uL High 4.00-10.60 [facility] Comment on above: Performed By: #### L [id number] ####[facility] ([facility] [place] [address] CONSULTon 12-03-[address] 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 Comment on above: Order Comment: Waive d Testing in the ED is performed under the ED CLIA certificate #[id number]. Result Comment: aung [email or web address] Performed By: #### L [id number] ####[facility] ([employer])[address] [place] [address] Glucose [Mass/Vol] 148 mg/dL High 70-105 [facility] Comment on above: Order Comment: Waive d Testing in the ED is performed under the ED CLIA certificate #[id number]. Result Comment: ngro nila Performed By: #### L [id number] ####[facility] ([employer])[address] [place] [address] Glucose [Mass/Vol] 165 mg/dL High 70-105 [facility] Comment on above: Order Comment: Waive d Testing in the ED is performed under the ED CLIA certificate #[id number]. Result Comment: mary [email or web address] Performed By: #### L [id number] ####[facility] ([employer])[address] [place] [address] Glucose [Mass/Vol] 158 mg/dL High 70-105 [facility] Comment on above: Order Comment: Waive d Testing in the ED is performed under the ED CLIA certificate #[id number]. Result Comment: [email or web address] Performed By: #### L [id number] ####[facility] ([employer] [facility])[address] [place] [address] TYPE AND SCREENon 12-03-2022 AB SCREEN Negative [facility] Comment on above: Performed By: #### L [id number] ####[facility], ABO group Nom (Bld) AB [facility] Comment on above: Performed By: #### L [id number] ####[facility], RH TYPE IN BLOOD Positive Normal [facility] Comment on above: Performed By: #### L [id number] ####[facility], 30on 12-02-[address] [facility] BASIC METABOLIC PANELon 11-12 Anion gap [Moles/Vol] 11 mmol/L Normal 7-20 [facility] Comment on above: Performed By: #### L [id number] ####[facility] (BEAKER)[address] [place] [address] Calcium [Mass/Vol] 9.6 mg/dL Normal 8.6-10.3 [facility] Comment on above: Performed By: #### L [id number] ####[facility] (BEAKER)[address] [place] [address] Chloride [Moles/Vol] 103 mmol/L Normal 98-107 [facility] Comment on above: Performed By: #### L [id number] ####[facility] ([facility])[address] [place] [address] CO2 [Moles/Vol] 22 mmol/L Normal 21-31 [facility] Comment on above: Performed By: #### L [id number] ####[facility] ([facility]ER)[address] [place] [address] Creatinine [Mass/Vol] 1.73 mg/dL High 0.70-1.30 [facility] Comment on above: Performed By: #### L [id number] ####[facility] ([facility]ER)[address] [place] [address] GLOMERULAR FILTRATION RATE ML/MIN/1.73 SQ M.PREDICTED 41.9 mL/min/1.73m*2 Low >60.0 [facility] Comment on above: Result Comment: [facility]???s estimated glomerular filtration rate (eGFR) will [...] individuals. Performed By: #### L [id number] ####[facility] ([facility])[address] [place] [address] Glucose [Mass/Vol] 168 mg/dL High 70-100 [facility] Comment on above: Performed By: #### L [id number] ####[facility] ([facility])[address] [place] [address] Potassium [Moles/Vol] 4.3 mmol/L Normal 3.5-5.1 [facility] Comment on above: Performed By: #### L [id number] ####[facility] ([facility])[address] [place] [address] Sodium [Moles/Vol] 132 mmol/L Low 136-145 [facility] Comment on above: Performed By: #### L [id number] ####[facility] ([facility])[address] [place] [address] Urea nitrogen [Mass/Vol] 42 mg/dL High 7-25 [facility] Comment on above: Performed By: #### L [id number] ####[facility] ([facility])[address] [place] [address] UREA NITROGEN/CREATININE (MASS RATIO) IN SER/PLAS 24.[address] [facility] Comment on above: Performed By: #### L [id number] ####[facility] ([facility])[address] [place] [address] CBCon 12-02-2022 Erythrocyte distribution width (RBC) [Ratio] 15.0 % Normal 11.5-15.0 [facility] Comment on above: Performed By: #### L [id number] ####[facility] ([facility])[address] [place] [address] ERYTHROCYTE MEAN CORPUSCULAR HEMOGLOBIN CONCENTRATION (G/DL) BY AUTOMATED 32.8 g/dL Normal 32.0-35.0 [facility] Comment on above: Performed By: #### L [id number] ####[facility] (BEAKER)[address] [address] Hematocrit (Bld) [Volume fraction] 40.0 % Normal 39.0-55.0 [facility] Comment on above: Performed By: #### L [id number] ####[facility] (BEAKER)[address] [place] [address] Hemoglobin (Bld) [Mass/Vol] 13.1 g/dL Normal 13.0-17.0 [facility] Comment on above: Result Comment: Resu lts checked Performed By: #### L [id number] ####[facility] ([facility] [place] [address] MCH (RBC) [Entitic mass] 29.0 pg Normal 27.0-33.0 [facility] Comment on above: Performed By: #### L [id number] ####[facility] (BEAKER)[address] [place] [address] MCV (RBC) [Entitic vol] 88.7 fL Normal 82.0-98.0 [facility] Comment on above: Performed By: #### L [id number] ####[facility] (BEAKER)[address] [place] [address] PLATELETS (10*3/UL) IN BLOOD AUTOMATED COUNT 129 10*3/uL Low 150-400 [facility] Comment on above: Performed By: #### L [id number] ####[facility] (BEAKER)[address] [place] [address] RBC (Bld) [#/Vol] 4.51 10*6/uL Normal 4.20-5.70 [facility] Comment on above: Performed By: #### L [id number] ####[facility] (BEAKER)[address] [place] [address] WBC (Bld) [#/Vol] 13.62 10*3/uL High 4.00-10.60 [facility] Comment on above: Performed By: #### L [id number] ####[facility] ([facility] [place] [address] POCT GLUCOSE METER UNSOLICIT ED RESULTSon 12-02-2022 Glucose [Mass/Vol] 208 mg/dL High 70-105 [facility] Comment on above: Order Comment: Waive d Testing in the ED is performed under the ED CLIA certificate #[id number]. Result Comment: [email or web address] Performed By: #### L [id number] ####[facility] ([facility])[address] [place] [address] Glucose [Mass/Vol] 224 mg/dL High 70-105 [facility] Comment on above: Order Comment: Waive d Testing in the ED is performed under the ED CLIA certificate #[id number]. Result Comment: [email or web address] [email or web address] Performed By: #### L [id number] ####[facility] ([facility])[address] [place] [address] Glucose [Mass/Vol] 173 mg/dL High 70-105 [facility] Comment on above: Order Comment: Waive d Testing in the ED is performed under the ED CLIA certificate #[id number]. Result Comment: [email or web address] Performed By: #### L [id number] ####[facility] ([facility])[address] [place] [address] Glucose [Mass/Vol] 135 mg/dL High 70-105 [facility] Comment on above: Order Comment: Waive d Testing in the ED is performed under the ED CLIA certificate #[id number]. Result Comment: [email or web address] Performed By: #### L [id number] ####[facility] ([facility]ER)[address] [place] [address] 30on 12-01-[address] [facility] APTTon 12-01-2022 ACTIVATED PARTIAL THROMBOPLASTIN TIME IN PPP BY COAGULATION ASSAY 28.0 Seconds Normal 25.0-35.0 [facility] Comment on above: Result Comment: Clin ical significance of the APTT is questionable in the presence of heparin. Performed By: #### L [id number] ####[facility] (BEAKER)[address] [place] [address] BASIC METABOLIC PANELon 10-2 Anion gap [Moles/Vol] 16 mmol/L Normal 7-20 [facility] Comment on above: Performed By: #### L [id number] ####[facility] ([facility] [place] [address] Calcium [Mass/Vol] 10.4 mg/dL High 8.6-10.3 [facility] Comment on above: Performed By: #### L [id number] ####[facility] (BEAKER)[address] [place] [address] Chloride [Moles/Vol] 101 mmol/L Normal 98-107 [facility] Comment on above: Performed By: #### L [id number] ####[facility] (BEAKER)[address] [place] [address] CO2 [Moles/Vol] 21 mmol/L Normal 21-31 [facility] Comment on above: Performed By: #### L [id number] ####[facility] (BE[facility]ER)[address] [place] [address] Creatinine [Mass/Vol] 1.78 mg/dL High 0.70-1.30 [facility] Comment on above: Performed By: #### L [id number] ####[facility] (BEAKER)[address] [place] [address] GLOMERULAR FILTRATION RATE ML/MIN/1.73 SQ M.PREDICTED 40.5 mL/min/1.73m*2 Low >60.0 [facility] Comment on above: Result Comment: [facility]???s estimated glomerular filtration rate (eGFR) will [...] individuals. Performed By: #### L [id number] ####[facility] ([facility])[address] [place] [address] Glucose [Mass/Vol] 260 mg/dL High 70-100 [facility] Comment on above: Performed By: #### L [id number] ####[facility] ([facility])[address] [place] [address] Potassium [Moles/Vol] 5.0 mmol/L Normal 3.5-5.1 [facility] Comment on above: Performed By: #### L [id number] ####[facility] ([facility])[address] [place] [address] Sodium [Moles/Vol] 133 mmol/L Low 136-145 [facility] Comment on above: Performed By: #### L [id number] ####[facility] ([facility])[address] [place] [address] Urea nitrogen [Mass/Vol] 32 mg/dL High 7-25 [facility] Comment on above: Performed By: #### L [id number] ####[facility] ([facility])[address] [place] [address] UREA NITROGEN/CREATININE (MASS RATIO) IN SER/PLAS 18.[address] [facility] Comment on above: Performed By: #### L [id number] ####[facility] ([facility])[address] [place] [address] CBCon 12-01-2022 Erythrocyte distribution width (RBC) [Ratio] 14.7 % Normal 11.5-15.0 [facility] Comment on above: Performed By: #### L [id number] ####[facility] ([facility])[address] [place] [address] ERYTHROCYTE MEAN CORPUSCULAR HEMOGLOBIN CONCENTRATION (G/DL) BY AUTOMATED 33.0 g/dL Normal 32.0-35.0 [facility] Comment on above: Performed By: #### L [id number] ####[facility] (BEAKER)[address] [address] Hematocrit (Bld) [Volume fraction] 46.6 % Normal 39.0-55.0 [facility] Comment on above: Performed By: #### L [id number] ####[facility] (BEAKER)[address] [place] [address] Hemoglobin (Bld) [Mass/Vol] 15.4 g/dL Normal 13.0-17.0 [facility] Comment on above: Performed By: #### L [id number] ####[facility] (BEAKER)[address] [place] [address] MCH (RBC) [Entitic mass] 29.3 pg Normal 27.0-33.0 [facility] Comment on above: Performed By: #### L [id number] ####[facility] (BEAKER)[address] [place] [address] MCV (RBC) [Entitic vol] 88.8 fL Normal 82.0-98.0 [facility] Comment on above: Performed By: #### L [id number] ####[facility] (BEAKER)[address] [place] [address] PLATELETS (10*3/UL) IN BLOOD AUTOMATED COUNT 181 10*3/uL Normal 150-400 [facility] Comment on above: Performed By: #### L [id number] ####[facility] (BEAKER)[address] [place] [address] RBC (Bld) [#/Vol] 5.25 10*6/uL Normal 4.20-5.70 [facility] Comment on above: Performed By: #### L [id number] ####[facility] (BEAKER)[address] [place] [address] WBC (Bld) [#/Vol] 23.51 10*3/uL High 4.00-10.60 [facility] Comment on above: Performed By: #### L [id number] ####[facility] ([facility])[address] [place] [address] NURSNOTEon 12-01-[address] [facility] POCT GLUCOSE METER UNSOLICIT ED RESULTSon 12-01-2022 Glucose [Mass/Vol] 204 mg/dL High 70-105 [facility] Comment on above: Order Comment: Waive d Testing in the ED is performed under the ED CLIA certificate #[id number]. Result Comment: [email or web address] Performed By: #### L [id number] ####[facility] ([facility])[address] [place] [address] Glucose [Mass/Vol] 248 mg/dL High 70-105 [facility] Comment on above: Order Comment: Waive d Testing in the ED is performed under the ED CLIA certificate #[id number]. Result Comment: [email or web address] Performed By: #### L [id number] ####[facility] ([facility])[address] [place] [address] Glucose [Mass/Vol] 270 mg/dL High 70-105 [facility] Comment on above: Order Comment: Waive d Testing in the ED is performed under the ED CLIA certificate #[id number]. Result Comment: [email or web address] [email or web address] Performed By: #### L [id number] ####[facility] ([facility])[address] [place] [address] PROTIME-INRon 12-01-2022 INR IN PPP BY COAGULATION ASSAY 1.21 High 0.90-1.10 [facility] Comment on above: Result Comment: ACCC [...] 1995;[id number]. Performed By: #### L [id number] ####[facility] (Stereotypes)[address] [place] [address] PROTHROMBIN TIME (PT) IN PPP BY COAGULATION ASSAY 15.3 Seconds High 12.3-14.8 [facility] Comment on above: Performed By: #### L [id number] ####[facility] ([facility])[address] [place] [address] 30on 11-30-[address] [facility] [address] [facility] BASIC METABOLIC PANELon 11-12 Anion gap [Moles/Vol] 10 mmol/L Normal 7-20 [facility] Comment on above: Performed By: #### L [id number] ####[facility] ([facility])[address] [place] [address] Calcium [Mass/Vol] 7.1 mg/dL Low 8.6-10.3 [facility] Comment on above: Performed By: #### L [id number] ####[facility] ([facility])[address] [facility] [place] [address] Chloride [Moles/Vol] 110 mmol/L High 98-107 [facility] Comment on above: Performed By: #### L [id number] ####[facility] ([facility])[address] [place] [address] CO2 [Moles/Vol] 22 mmol/L Normal 21-31 [facility] Comment on above: Performed By: #### L [id number] ####[facility] ([facility])[address] [place] [address] Creatinine [Mass/Vol] 1.25 mg/dL Normal 0.70-1.30 [facility] Comment on above: Performed By: #### L [id number] ####[facility] ([facility])[address] [place] [address] GLOMERULAR FILTRATION RATE ML/MIN/1.73 SQ M.PREDICTED 61.9 mL/min/1.73m*2 Normal >60.0 [facility] Comment on above: Result Comment: [facility]???s estimated glomerular filtration rate (eGFR) will [...] individuals. Performed By: #### L [id number] ####[facility] ([facility])[address] [place] [address] Glucose [Mass/Vol] 211 mg/dL High 70-100 [facility] Comment on above: Performed By: #### L [id number] ####[facility] ([facility])[address] [place] [address] Potassium [Moles/Vol] 3.6 mmol/L Normal 3.5-5.1 [facility] Comment on above: Performed By: #### L [id number] ####[facility] ([facility])[address] [address] Sodium [Moles/Vol] 138 mmol/L Normal 136-145 [facility] Comment on above: Performed By: #### L [id number] ####[facility] (BEAKER)[address] [place] [address] Urea nitrogen [Mass/Vol] 17 mg/dL Normal 7-25 [facility] Comment on above: Performed By: #### L [id number] ####[facility] (BEAKER)[address] [place] [address] UREA NITROGEN/CREATININE (MASS RATIO) IN SER/PLAS 13.[address] [facility] Comment on above: Performed By: #### L [id number] ####[facility] (BEAKER)[address] [place] [address] Anion gap [Moles/Vol] 10 mmol/L Normal 7-20 [facility] Comment on above: Performed By: #### L [id number] ####[facility] (BE[facility]ER)[address] [place] [address] Calcium [Mass/Vol] 9.5 mg/dL Normal 8.6-10.3 [facility] Comment on above: Performed By: #### L [id number] ####[facility] (BEAKER)[address] [place] [address] Chloride [Moles/Vol] 102 mmol/L Normal 98-107 [facility] Comment on above: Performed By: #### L [id number] ####[facility] (BEAKER)[address] [place] [address] CO2 [Moles/Vol] 27 mmol/L Normal 21-31 [facility] Comment on above: Performed By: #### L [id number] ####[facility] (BEAKER)[address] [place] [address] Creatinine [Mass/Vol] 1.39 mg/dL High 0.70-1.30 [facility] Comment on above: Performed By: #### L [id number] ####[facility] (BE[facility]ER)[address] [place] [address] GLOMERULAR FILTRATION RATE ML/MIN/1.73 SQ M.PREDICTED 54.5 mL/min/1.73m*2 Low >60.0 [facility] Comment on above: Result Comment: [facility]???s estimated glomerular filtration rate (eGFR) will [...] individuals. Performed By: #### L [id number] ####[facility] (BE[facility]ER)[address] [place] [address] Glucose [Mass/Vol] 171 mg/dL High 70-100 [facility] Comment on above: Performed By: #### L [id number] ####[facility] (BE[facility]ER)[address] [place] [address] Potassium [Moles/Vol] 4.0 mmol/L Normal 3.5-5.1 [facility] Comment on above: Performed By: #### L [id number] ####[facility] (BE[facility]ER)[address] [place] [address] Sodium [Moles/Vol] 135 mmol/L Low 136-145 [facility] Comment on above: Performed By: #### L [id number] ####[facility] (BE[facility]ER)[address] [place] [address] Urea nitrogen [Mass/Vol] 20 mg/dL Normal 7-25 [facility] Comment on above: Performed By: #### L [id number] ####[facility] (BEAKER)[address] [place] [address] UREA NITROGEN/CREATININE (MASS RATIO) IN SER/PLAS 14.[address] [facility] Comment on above: Performed By: #### L [id number] ####[facility] (BEAKER)[address] [place] [address] CBCon 11-30-2022 Erythrocyte distribution width (RBC) [Ratio] 14.2 % Normal 11.5-15.0 [facility] Comment on above: Performed By: #### L [id number] ####[facility] (BEAKER)[address] [place] [address] ERYTHROCYTE MEAN CORPUSCULAR HEMOGLOBIN CONCENTRATION (G/DL) BY AUTOMATED 33.3 g/dL Normal 32.0-35.0 [facility] Comment on above: Performed By: #### L [id number] ####[facility] ([facility] [place] [address] Hematocrit (Bld) [Volume fraction] 41.7 % Normal 39.0-55.0 [facility] Comment on above: Performed By: #### L [id number] ####[facility] ([facility] [place] [address] Hemoglobin (Bld) [Mass/Vol] 13.9 g/dL Normal 13.0-17.0 [facility] Comment on above: Performed By: #### L [id number] ####[facility] ([facility] [place] [address] MCH (RBC) [Entitic mass] 29.5 pg Normal 27.0-33.0 [facility] Comment on above: Performed By: #### L [id number] ####[facility] (BEAKER)[address] [place] [address] MCV (RBC) [Entitic vol] 88.5 fL Normal 82.0-98.0 [facility] Comment on above: Performed By: #### L [id number] ####[facility] (BEAKER)[address] [place] [address] PLATELETS (10*3/UL) IN BLOOD AUTOMATED COUNT 183 10*3/uL Normal 150-400 [facility] Comment on above: Performed By: #### L [id number] ####[facility] (BEAKER)[address] [place] [address] RBC (Bld) [#/Vol] 4.71 10*6/uL Normal 4.20-5.70 [facility] Comment on above: Performed By: #### L [id number] ####[facility] (BEAKER)[address] [place] [address] WBC (Bld) [#/Vol] 8.24 10*3/uL Normal 4.00-10.60 [facility] Comment on above: Performed By: #### L [id number] ####[facility] (BEAKER)[address] [place] [address] CBC WITH AUTO DIFFERENTIALon 11-30-2022 Basophils (Bld) [#/Vol] 0.02 10*3/uL Normal 0.00-0.20 [facility] Comment on above: Performed By: #### L [id number] ####[facility] (BEAKER)[address] [place] [address] Basophils/100 WBC (Bld) 0.2 % Normal 0.0-1.0 [facility] Comment on above: Performed By: #### L [id number] ####[facility] (BEAKER)[address] [place] [address] Eosinophils (Bld) [#/Vol] 0.11 10*3/uL Normal 0.00-0.50 [facility] Comment on above: Performed By: #### L [id number] ####[facility] (BEAKER)[address] [place] [address] Eosinophils/100 WBC (Bld) 1.2 % Normal 0.0-6.0 [facility] Comment on above: Performed By: #### L [id number] ####[facility] (BEAKER)[address] [place] [address] Erythrocyte distribution width (RBC) [Ratio] 14.5 % Normal 11.5-15.0 [facility] Comment on above: Performed By: #### L [id number] ####[facility] (BE[facility]ER)[address] [place] [address] ERYTHROCYTE MEAN CORPUSCULAR HEMOGLOBIN CONCENTRATION (G/DL) BY AUTOMATED 33.1 g/dL Normal 32.0-35.0 [facility] Comment on above: Performed By: #### L [id number] ####[facility] (BEAKER)[address] [place] [address] Hematocrit (Bld) [Volume fraction] 37.2 % Low 39.0-55.0 [facility] Comment on above: Performed By: #### L [id number] ####[facility] ([facility])[address] [place] [address] Hemoglobin (Bld) [Mass/Vol] 12.3 g/dL Low 13.0-17.0 [facility] Comment on above: Performed By: #### L [id number] ####[facility] ([facility])[address] [place] [address] Immature granulocytes (Bld) [#/Vol] 0.06 10*3/uL Normal 0.00-0.20 [facility] Comment on above: Performed By: #### L [id number] ####[facility] ([facility])[address] [place] [address] Immature granulocytes/100 WBC (Bld) 0.6 % Normal 0.0-1.0 [facility] Comment on above: Performed By: #### L [id number] ####[facility] ([facility] [place] [address] Lymphocytes (Bld) [#/Vol] 0.97 10*3/uL Low 1.20-4.00 [facility] Comment on above: Performed By: #### L [id number] ####[facility] ([facility] [place] [address] Lymphocytes/100 WBC (Bld) 10.3 % Low 20.0-45.0 [facility] Comment on above: Performed By: #### L [id number] ####[facility] (BEAKER)[address] [place] [address] MCH (RBC) [Entitic mass] 29.5 pg Normal 27.0-33.0 [facility] Comment on above: Performed By: #### L [id number] ####[facility] (BEAKER)[address] [place] [address] MCV (RBC) [Entitic vol] 89.2 fL Normal 82.0-98.0 [facility] Comment on above: Performed By: #### L [id number] ####[facility] (BEAKER)[address] [place] [address] Monocytes (Bld) [#/Vol] 0.78 10*3/uL Normal 0.10-1.00 [facility] Comment on above: Performed By: #### L [id number] ####[facility] (BEAKER)[address] [place] [address] Monocytes/100 WBC (Bld) 8.3 % Normal 5.0-12.0 [facility] Comment on above: Performed By: #### L [id number] ####[facility] (BE[facility]ER)[address] [place] [address] Neutrophils (Bld) [#/Vol] 7.48 10*3/uL Normal 1.60-7.60 [facility] Comment on above: Performed By: #### L [id number] ####[facility] ([facility])[address] [place] [address] Neutrophils/100 WBC (Bld) 79.4 % High 40.0-72.0 [facility] Comment on above: Performed By: #### L [id number] ####[facility] ([facility])[address] [place] [address] NRBC (PER 100 WBCS) BY AUTOMATED COUNT 0.0 % Normal 0 [facility] Comment on above: Performed By: #### L [id number] ####[facility] ([facility])[address] [place] [address] PLATELETS (10*3/UL) IN BLOOD AUTOMATED COUNT 172 10*3/uL Normal 150-400 [facility] Comment on above: Performed By: #### L [id number] ####[facility] ([facility])[address] [place] [address] RBC (Bld) [#/Vol] 4.17 10*6/uL Low 4.20-5.70 [facility] Comment on above: Performed By: #### L [id number] ####[facility] ([facility])[address] [place] [address] WBC (Bld) [#/Vol] 9.42 10*3/uL Normal 4.00-10.60 [facility] Comment on above: Performed By: #### L [id number] ####[facility] ([facility])[address] [place] [address] CTA ABDOMEN PELVIS W AND/OR WO IV CONTRASTon 11-30-2022 CTA ABDOMEN PELVIS W AND/OR WO IV CONTRAST Normal [facility] CTA CHEST W AND/OR WO IV CON TRASTon 11-30-2022 CTA CHEST W AND/OR WO IV CONTRAST Normal [facility] DSon 11-30-2022 DS This report has been cancelled. Normal [facility] NURSNOTEon 11-30-[address] [facility] NURSNOTE Normal [facility] POCT GLUCOSE METER UNSOLICIT ED RESULTSon 11-30-2022 Glucose [Mass/Vol] 228 mg/dL High 70-105 [facility] Comment on above: Order Comment: Waive d Testing in the ED is performed under the ED CLIA certificate #[id number]. Result Comment: [email or web address] Performed By: #### L [id number] ####[facility] ([facility])[address] [facility] [place] [address] Glucose [Mass/Vol] 228 mg/dL High 70-105 [facility] Comment on above: Order Comment: Waive d Testing in the ED is performed under the ED CLIA certificate #[id number]. Result Comment: [email or web address] Performed By: #### L [id number] ####[facility] ([facility])[address] [place] [address] Glucose [Mass/Vol] 219 mg/dL High 70-105 [facility] Comment on above: Order Comment: Waive d Testing in the ED is performed under the ED CLIA certificate #[id number]. Result Comment: [email or web address] Performed By: #### L [id number] ####[facility] ([facility])[address] [place] [address] Glucose [Mass/Vol] 186 mg/dL High 70-105 [facility] Comment on above: Order Comment: Waive d Testing in the ED is performed under the ED CLIA certificate #[id number]. Result Comment: [email or web address] Performed By: #### L [id number] ####[facility] ([facility])[address] [place] [address] Glucose [Mass/Vol] 217 mg/dL High 70-105 [facility] Comment on above: Order Comment: Waive d Testing in the ED is performed under the ED CLIA certificate #[id number]. Result Comment: [email or web address] Performed By: #### L [id number] ####[facility] ([facility])[address] [place] [address] Glucose [Mass/Vol] 175 mg/dL High 70-105 [facility] Comment on above: Order Comment: Waive d Testing in the ED is performed under the ED CLIA certificate #[id number]. Result Comment: [email or web address] Performed By: #### L [id number] ####[facility] ([facility])[address] [place] [address] TROPONIN Ion 11-30-2022 Troponin I.cardiac [Mass/Vol] 0.05 ng/mL High 0.00-0.04 [facility] Comment on above: Performed By: #### L [id number] ####[facility] ([facility])[address] [place] [address] 30on 11-29-[address] [facility] [address] [facility] [address] [facility] ANESon 11-29-[address] [facility] ANTI-XA (HEPARIN LEVEL)on HEPARIN UNFRACTIONATED (U/ML) IN PPP BY CHROMOGENIC METHOD 0.42 IU/mL Normal 0.3-0.7 [facility] Comment on above: Result Comment: [place] roxaban and Apixaban will interfere with the anti Xa assay used to monitor UFH and LMWH. Performed By: #### L [id number] ####[facility] ([facility])[address] [place] [address] HEPARIN UNFRACTIONATED (U/ML) IN PPP BY CHROMOGENIC METHOD 0.74 IU/mL High 0.3-0.7 [facility] Comment on above: Result Comment: [place] roxaban and Apixaban will interfere with the anti Xa assay used to monitor UFH and LMWH. Performed By: #### L [id number] ####[facility] ([facility])[address] [place] [address] BASIC METABOLIC PANELon 11-11 Anion gap [Moles/Vol] 9 mmol/L Normal 7-20 [facility] Comment on above: Performed By: #### L [id number] ####[facility] ([facility])[address] [place] [address] Calcium [Mass/Vol] 9.5 mg/dL Normal 8.6-10.3 [facility] Comment on above: Performed By: #### L [id number] ####[facility] ([facility])[address] [place] [address] Chloride [Moles/Vol] 103 mmol/L Normal 98-107 [facility] Comment on above: Performed By: #### L [id number] ####[facility] ([facility])[address] [place] [address] CO2 [Moles/Vol] 28 mmol/L Normal 21-31 [facility] Comment on above: Performed By: #### L [id number] ####[facility] ([facility])[address] [place] [address] Creatinine [Mass/Vol] 1.44 mg/dL High 0.70-1.30 [facility] Comment on above: Performed By: #### L [id number] ####[facility] ([facility])[address] [place] [address] GLOMERULAR FILTRATION RATE ML/MIN/1.73 SQ M.PREDICTED 52.3 mL/min/1.73m*2 Low >60.0 [facility] Comment on above: Result Comment: [facility]???s estimated glomerular filtration rate (eGFR) will [...] individuals. Performed By: #### L [id number] ####[facility] ([facility])[address] [place] [address] Glucose [Mass/Vol] 178 mg/dL High 70-100 [facility] Comment on above: Performed By: #### L [id number] ####[facility] ([facility])[address] [place] [address] Potassium [Moles/Vol] 4.1 mmol/L Normal 3.5-5.1 [facility] Comment on above: Performed By: #### L [id number] ####[facility] ([facility])[address] [place] [address] Sodium [Moles/Vol] 136 mmol/L Normal 136-145 [facility] Comment on above: Performed By: #### L [id number] ####[facility] ([facility])[address] [facility] [place] [place] [address] Urea nitrogen [Mass/Vol] 17 mg/dL Normal 7-25 [facility] Comment on above: Performed By: #### L [id number] ####[facility] ([facility])[address] [place] [address] UREA NITROGEN/CREATININE (MASS RATIO) IN SER/PLAS 11.[address] [facility] Comment on above: Performed By: #### L [id number] ####[facility] ([facility])[address] [place] [address] CBCon 11-29-2022 Erythrocyte distribution width (RBC) [Ratio] 14.4 % Normal 11.5-15.0 [facility] Comment on above: Performed By: #### L [id number] ####[facility] ([facility])[address] [place] [address] ERYTHROCYTE MEAN CORPUSCULAR HEMOGLOBIN CONCENTRATION (G/DL) BY AUTOMATED 34.0 g/dL Normal 32.0-35.0 [facility] Comment on above: Performed By: #### L [id number] ####[facility] ([facility])[address] [place] [address] Hematocrit (Bld) [Volume fraction] 41.5 % Normal 39.0-55.0 [facility] Comment on above: Performed By: #### L [id number] ####[facility] ([facility])[address] [place] [address] Hemoglobin (Bld) [Mass/Vol] 14.1 g/dL Normal 13.0-17.0 [facility] Comment on above: Performed By: #### L [id number] ####[facility] ([facility])[address] [place] [address] MCH (RBC) [Entitic mass] 29.6 pg Normal 27.0-33.0 [facility] Comment on above: Performed By: #### L [id number] ####[facility] ([facility])[address] [place] [address] MCV (RBC) [Entitic vol] 87.2 fL Normal 82.0-98.0 [facility] Comment on above: Performed By: #### L [id number] ####[facility] ([facility] [place] [address] PLATELETS (10*3/UL) IN BLOOD AUTOMATED COUNT 180 10*3/uL Normal 150-400 [facility] Comment on above: Performed By: #### L [id number] ####[facility] ([facility])[address] [place] [address] RBC (Bld) [#/Vol] 4.76 10*6/uL Normal 4.20-5.70 [facility] Comment on above: Performed By: #### L [id number] ####[facility] ([facility])[address] [place] [address] WBC (Bld) [#/Vol] 6.10 10*3/uL Normal 4.00-10.60 [facility] Comment on above: Performed By: #### L [id number] ####[facility] ([facility])[address] [address] CONSULTon 11-29-2022 CONSULT [facility] HPon 11-29-2022 HP H&P reviewed. The patient was examined and there are no changes to the H&P. [facility] POCT GLUCOSE METER UNSOLICIT ED RESULTSon 11-29-2022 Glucose [Mass/Vol] 168 mg/dL High 70-105 [facility] Comment on above: Order Comment: Waive d Testing in the ED is performed under the ED CLIA certificate #[id number]. Result Comment: [email or web address] Performed By: #### L [id number] ####[facility] ([facility])[address] [place] [address] Glucose [Mass/Vol] 122 mg/dL High 70-105 [facility] Comment on above: Order Comment: Waive d Testing in the ED is performed under the ED CLIA certificate #[id number]. Result Comment: [email or web address] Performed By: #### L [id number] ####[facility] ([facility])[address] [place] [address] Glucose [Mass/Vol] 144 mg/dL High 70-105 [facility] Comment on above: Order Comment: Waive d Testing in the ED is performed under the ED CLIA certificate #[id number]. Result Comment: [email or web address] Performed By: #### L [id number] ####[facility] ([facility])[address] [place] [address] Glucose [Mass/Vol] 157 mg/dL High 70-105 [facility] Comment on above: Order Comment: Waive d Testing in the ED is performed under the ED CLIA certificate #[id number]. Result Comment: [email or web address] Performed By: #### L [id number] ####[facility] ([facility])[address] [place] [address] 30on 11-28-[address] [facility] [address] [facility] 30 [facility] ANTI-XA (HEPARIN LEVEL)on HEPARIN UNFRACTIONATED (U/ML) IN PPP BY CHROMOGENIC METHOD 0.47 IU/mL Normal 0.3-0.7 [facility] Comment on above: Result Comment: [place] roxaban and Apixaban will interfere with the anti Xa assay used to monitor UFH and LMWH. Performed By: #### L [id number] ####[facility] ([facility])[address] [place] [address] HEPARIN UNFRACTIONATED (U/ML) IN PPP BY CHROMOGENIC METHOD 0.40 IU/mL Normal 0.3-0.7 [facility] Comment on above: Result Comment: [place] roxaban and Apixaban will interfere with the anti Xa assay used to monitor UFH and LMWH. Performed By: #### L [id number] ####[facility] ([facility])[address] [place] [address] HEPARIN UNFRACTIONATED (U/ML) IN PPP BY CHROMOGENIC METHOD 0.23 IU/mL Low 0.3-0.7 [facility] Comment on above: Result Comment: [place] roxaban and Apixaban will interfere with the anti Xa assay used to monitor UFH and LMWH. Performed By: #### L [id number] ####[facility] ([facility])[address] [place] [address] HEPARIN UNFRACTIONATED (U/ML) IN PPP BY CHROMOGENIC METHOD 0.10 IU/mL Invalid Interpretation Code 0.3-0.7 [facility] Comment on above: Result Comment: [place] roxaban and Apixaban will interfere with the anti Xa assay used to monitor UFH and LMWH. Performed By: #### L [id number] ####[facility] ([facility])[address] [place] [address] BASIC METABOLIC PANELon 11-11 Anion gap [Moles/Vol] 10 mmol/L Normal 7-20 [facility] Comment on above: Performed By: #### L [id number] ####[facility] ([facility] [place] [address] Calcium [Mass/Vol] 8.9 mg/dL Normal 8.6-10.3 [facility] Comment on above: Performed By: #### L [id number] ####[facility] ([facility] [place] [address] Chloride [Moles/Vol] 105 mmol/L Normal 98-107 [facility] Comment on above: Performed By: #### L [id number] ####[facility] ([facility] [place] [address] CO2 [Moles/Vol] 25 mmol/L Normal 21-31 [facility] Comment on above: Performed By: #### L [id number] ####[facility] ([facility] [place] [address] Creatinine [Mass/Vol] 1.22 mg/dL Normal 0.70-1.30 [facility] Comment on above: Performed By: #### L [id number] ####[facility] ([facility] [place] [address] GLOMERULAR FILTRATION RATE ML/MIN/1.73 SQ M.PREDICTED 63.8 mL/min/1.73m*2 Normal >60.0 [facility] Comment on above: Result Comment: [facility]???s estimated glomerular filtration rate (eGFR) will [...] individuals. Performed By: #### L [id number] ####[facility] ([facility])[address] [place] [address] Glucose [Mass/Vol] 153 mg/dL High 70-100 [facility] Comment on above: Performed By: #### L [id number] ####[facility] ([facility])[address] [place] [address] Potassium [Moles/Vol] 3.8 mmol/L Normal 3.5-5.1 [facility] Comment on above: Performed By: #### L [id number] ####[facility] ([facility])[address] [place] [address] Sodium [Moles/Vol] 136 mmol/L Normal 136-145 [facility] Comment on above: Performed By: #### L [id number] ####[facility] ([facility])[address] [facility] [place] [address] Urea nitrogen [Mass/Vol] 14 mg/dL Normal 7-25 [facility] Comment on above: Performed By: #### L [id number] ####[facility] ([facility])[address] [facility] [place] [address] UREA NITROGEN/CREATININE (MASS RATIO) IN SER/PLAS 11.[address] [facility] Comment on above: Performed By: #### L [id number] ####[facility] ([facility])[address] [place] [address] CBCon 11-28-2022 Erythrocyte distribution width (RBC) [Ratio] 14.3 % Normal 11.5-15.0 [facility] Comment on above: Performed By: #### L [id number] ####[facility] ([facility] [place] [address] ERYTHROCYTE MEAN CORPUSCULAR HEMOGLOBIN CONCENTRATION (G/DL) BY AUTOMATED 33.2 g/dL Normal 32.0-35.0 [facility] Comment on above: Performed By: #### L [id number] ####[facility] ([facility] [place] [address] Hematocrit (Bld) [Volume fraction] 40.4 % Normal 39.0-55.0 [facility] Comment on above: Performed By: #### L [id number] ####[facility] ([facility])[address] [place] [address] Hemoglobin (Bld) [Mass/Vol] 13.4 g/dL Normal 13.0-17.0 [facility] Comment on above: Performed By: #### L [id number] ####[facility] ([facility])[address] [place] [address] MCH (RBC) [Entitic mass] 29.3 pg Normal 27.0-33.0 [facility] Comment on above: Performed By: #### L [id number] ####[facility] ([facility])[address] [place] [address] MCV (RBC) [Entitic vol] 88.2 fL Normal 82.0-98.0 [facility] Comment on above: Performed By: #### L [id number] ####[facility] ([facility] [place] [address] PLATELETS (10*3/UL) IN BLOOD AUTOMATED COUNT 194 10*3/uL Normal 150-400 [facility] Comment on above: Performed By: #### L [id number] ####[facility] ([facility] [place] [address] RBC (Bld) [#/Vol] 4.58 10*6/uL Normal 4.20-5.70 [facility] Comment on above: Performed By: #### L [id number] ####[facility] ([facility])[address] [place] [address] WBC (Bld) [#/Vol] 7.10 10*3/uL Normal 4.00-10.60 [facility] Comment on above: Performed By: #### L [id number] ####[facility] ([facility])[address] [place] [address] CONSULTon 11-28-[address] [facility] MAGNESIUMon 11-28-2022 Magnesium [Mass/Vol] 1.7 mg/dL Low 1.9-2.7 [facility] Comment on above: Performed By: #### L [id number] ####[facility] ([facility])[address] [place] [address] NURSNOTEon 11-28-[address] [facility] PHOSPHORUSon 11-28-2022 Magnesium [Mass/Vol] 3.8 mg/dL Normal 2.5-5.0 [facility] Comment on above: Performed By: #### L [id number] ####[facility] ([facility])[address] [place] [address] POCT GLUCOSE METER UNSOLICIT ED RESULTSon 11-28-2022 Glucose [Mass/Vol] 202 mg/dL High 70-105 [facility] Comment on above: Order Comment: Waive d Testing in the ED is performed under the ED CLIA certificate #[id number]. Result Comment: [email or web address] Performed By: #### L [id number] ####[facility] ([facility])[address] [place] [address] Glucose [Mass/Vol] 110 mg/dL High 70-105 [facility] Comment on above: Order Comment: Waive d Testing in the ED is performed under the ED CLIA certificate #[id number]. Result Comment: [email or web address] Performed By: #### L [id number] ####[facility] ([facility])[address] [place] [address] Glucose [Mass/Vol] 190 mg/dL High 70-105 [facility] Comment on above: Order Comment: Waive d Testing in the ED is performed under the ED CLIA certificate #[id number]. Result Comment: [email or web address] Performed By: #### L [id number] ####[facility] [place] [address] Glucose [Mass/Vol] 147 mg/dL High 70-105 [facility] Comment on above: Order Comment: Waive d Testing in the ED is performed under the ED CLIA certificate #[id number]. Result Comment: [email or web address] Performed By: #### L [id number] ####[facility] ([facility] [place] [address] 30on 11-27-[address] [facility] [address] [facility] [address] [facility] ANESon 11-27-2022 ANES [facility] ANTI-XA (HEPARIN LEVEL)on HEPARIN UNFRACTIONATED (U/ML) IN PPP BY CHROMOGENIC METHOD 0.49 IU/mL Normal 0.3-0.7 [facility] Comment on above: Result Comment: [place] roxaban and Apixaban will interfere with the anti Xa assay used to monitor UFH and LMWH. Performed By: #### L [id number] ####[facility] ([facility])[address] [address] HEPARIN UNFRACTIONATED (U/ML) IN PPP BY CHROMOGENIC METHOD 0.50 IU/mL Normal 0.3-0.7 [facility] Comment on above: Result Comment: [place] roxaban and Apixaban will interfere with the anti Xa assay used to monitor UFH and LMWH. Performed By: #### L [id number] ####[facility] ([facility])[address] [place] [address] BASIC METABOLIC PANELon 11-11 Anion gap [Moles/Vol] 9 mmol/L Normal 7-20 [facility] Comment on above: Performed By: #### L [id number] ####[facility] ([facility])[address] [address] Calcium [Mass/Vol] 8.9 mg/dL Normal 8.6-10.3 [facility] Comment on above: Performed By: #### L [id number] ####[facility] ([facility])[address] [place] [address] Chloride [Moles/Vol] 104 mmol/L Normal 98-107 [facility] Comment on above: Performed By: #### L [id number] ####[facility] ([facility])[address] [place] [address] CO2 [Moles/Vol] 25 mmol/L Normal 21-31 [facility] Comment on above: Performed By: #### L [id number] ####[facility] ([facility])[address] [place] [address] Creatinine [Mass/Vol] 1.34 mg/dL High 0.70-1.30 [facility] Comment on above: Performed By: #### L [id number] ####[facility] ([facility])[address] [place] [address] GLOMERULAR FILTRATION RATE ML/MIN/1.73 SQ M.PREDICTED 57.0 mL/min/1.73m*2 Low >60.0 [facility] Comment on above: Result Comment: [facility]???s estimated glomerular filtration rate (eGFR) will [...] individuals. Performed By: #### L [id number] ####[facility] ([facility])[address] [place] [address] Glucose [Mass/Vol] 210 mg/dL High 70-100 [facility] Comment on above: Performed By: #### L [id number] ####[facility] ([facility])[address] [place] [address] Potassium [Moles/Vol] 4.1 mmol/L Normal 3.5-5.1 [facility] Comment on above: Performed By: #### L [id number] ####[facility] ([facility])[address] [place] [address] Sodium [Moles/Vol] 134 mmol/L Low 136-145 [facility] Comment on above: Performed By: #### L [id number] ####[facility] ([facility])[address] [place] [address] Urea nitrogen [Mass/Vol] 18 mg/dL Normal 7-25 [facility] Comment on above: Performed By: #### L [id number] ####[facility] ([facility])[address] [place] [address] UREA NITROGEN/CREATININE (MASS RATIO) IN SER/PLAS 13.[address] [facility] Comment on above: Performed By: #### L [id number] ####[facility] ([facility])[address] [place] [address] CBCon 11-27-2022 Erythrocyte distribution width (RBC) [Ratio] 14.2 % Normal 11.5-15.0 [facility] Comment on above: Performed By: #### L [id number] ####[facility] ([facility])[address] [place] [address] ERYTHROCYTE MEAN CORPUSCULAR HEMOGLOBIN CONCENTRATION (G/DL) BY AUTOMATED 33.3 g/dL Normal 32.0-35.0 [facility] Comment on above: Performed By: #### L [id number] ####[facility] ([facility])[address] [place] [address] Hematocrit (Bld) [Volume fraction] 41.5 % Normal 39.0-55.0 [facility] Comment on above: Performed By: #### L [id number] ####[facility] ([facility])[address] [place] [address] Hemoglobin (Bld) [Mass/Vol] 13.8 g/dL Normal 13.0-17.0 [facility] Comment on above: Performed By: #### L [id number] ####[facility] ([facility])[address] [place] [address] MCH (RBC) [Entitic mass] 28.9 pg Normal 27.0-33.0 [facility] Comment on above: Performed By: #### L [id number] ####[facility] ([facility])[address] [place] [address] MCV (RBC) [Entitic vol] 86.8 fL Normal 82.0-98.0 [facility] Comment on above: Performed By: #### L [id number] ####[facility] ([facility])[address] [place] [address] PLATELETS (10*3/UL) IN BLOOD AUTOMATED COUNT 187 10*3/uL Normal 150-400 [facility] Comment on above: Performed By: #### L [id number] ####[facility] ([facility])[address] [place] [address] RBC (Bld) [#/Vol] 4.78 10*6/uL Normal 4.20-5.70 [facility] Comment on above: Performed By: #### L [id number] ####[facility] ([facility])[address] [place] [address] WBC (Bld) [#/Vol] 6.16 10*3/uL Normal 4.00-10.60 [facility] Comment on above: Performed By: #### L [id number] ####[facility] ([facility] [place] [address] HPon 11-27-[address] [facility] MAGNESIUMon 11-27-2022 Magnesium [Mass/Vol] 1.8 mg/dL Low 1.9-2.7 [facility] Comment on above: Performed By: #### L [id number] ####[facility] ([facility] [place] [address] PHOSPHORUSon 11-27-2022 Magnesium [Mass/Vol] 3.4 mg/dL Normal 2.5-5.0 [facility] Comment on above: Performed By: #### L [id number] ####[facility] ([facility])[address] [place] [address] POCT GLUCOSE METER UNSOLICIT ED RESULTSon 11-27-2022 Glucose [Mass/Vol] 393 mg/dL High 70-105 [facility] Comment on above: Order Comment: Waive d Testing in the ED is performed under the ED CLIA certificate #[id number]. Result Comment: crystal philip Performed By: #### L [id number] ####[facility] ([facility])[address] [place] [address] Glucose [Mass/Vol] 142 mg/dL High 70-105 [facility] Comment on above: Order Comment: Waive d Testing in the ED is performed under the ED CLIA certificate #[id number]. Result Comment: lukasz yanez Performed By: #### L [id number] ####[facility] ([facility])[address] [place] [address] Glucose [Mass/Vol] 147 mg/dL High 70-105 [facility] Comment on above: Order Comment: Waive d Testing in the ED is performed under the ED CLIA certificate #[id number]. Result Comment: [place] Performed By: #### L [id number] ####[facility] ([facility] [place] [address] Glucose [Mass/Vol] 163 mg/dL High 70-105 [facility] Comment on above: Order Comment: Waive d Testing in the ED is performed under the ED CLIA certificate #[id number]. Result Comment: [place] Performed By: #### L [id number] ####[facility] ([facility])[address] [place] [address] 30on 11-26-[address] [facility] [address] [facility] ANTI-XA (HEPARIN LEVEL)on HEPARIN UNFRACTIONATED (U/ML) IN PPP BY CHROMOGENIC METHOD 0.57 IU/mL Normal 0.3-0.7 [facility] Comment on above: Result Comment: [place] roxaban and Apixaban will interfere with the anti Xa assay used to monitor UFH and LMWH. Performed By: #### L [id number] ####[facility] ([facility])[address] [place] [address] HEPARIN UNFRACTIONATED (U/ML) IN PPP BY CHROMOGENIC METHOD 0.96 IU/mL Critically high 0.3-0.7 [facility] Comment on above: Result Comment: [place] roxaban and Apixaban will interfere with the anti Xa assay used to monitor UFH and LMWH. Performed By: #### L [id number] ####[facility] ([facility])[address] [place] [address] HEPARIN UNFRACTIONATED (U/ML) IN PPP BY CHROMOGENIC METHOD 0.68 IU/mL Normal 0.3-0.7 [facility] Comment on above: Order Comment: Check anti-Xa level every 6 hours while on heparin infusion, or per protocol. Result Comment: [place] roxaban and Apixaban will interfere with the anti Xa assay used to monitor UFH and LMWH. Performed By: #### L [id number] ####[facility] ([facility])[address] [place] [address] HEPARIN UNFRACTIONATED (U/ML) IN PPP BY CHROMOGENIC METHOD 0.66 IU/mL Normal 0.3-0.7 [facility] Comment on above: Order Comment: Check anti-Xa level every 6 hours while on heparin infusion, or per protocol. Result Comment: [place] roxaban and Apixaban will interfere with the anti Xa assay used to monitor UFH and LMWH. Performed By: #### L [id number] ####[facility] ([facility])[address] [place] [address] BASIC METABOLIC PANELon 11-11 Anion gap [Moles/Vol] 8 mmol/L Normal 7-20 [facility] Comment on above: Performed By: #### L [id number] ####[facility] ([facility])[address] [place] [address] Calcium [Mass/Vol] 8.9 mg/dL Normal 8.6-10.3 [facility] Comment on above: Performed By: #### L [id number] ####[facility] ([facility])[address] [place] [address] Chloride [Moles/Vol] 106 mmol/L Normal 98-107 [facility] Comment on above: Performed By: #### L [id number] ####[facility] ([facility])[address] [place] [address] CO2 [Moles/Vol] 26 mmol/L Normal 21-31 [facility] Comment on above: Performed By: #### L [id number] ####[facility] ([facility])[address] [place] [address] Creatinine [Mass/Vol] 1.30 mg/dL Normal 0.70-1.30 [facility] Comment on above: Performed By: #### L [id number] ####[facility] ([facility])[address] [place] [address] GLOMERULAR FILTRATION RATE ML/MIN/1.73 SQ M.PREDICTED 59.1 mL/min/1.73m*2 Low >60.0 [facility] Comment on above: Result Comment: [facility]???s estimated glomerular filtration rate (eGFR) will [...] individuals. Performed By: #### L [id number] ####[facility] ([facility])[address] [place] [address] Glucose [Mass/Vol] 196 mg/dL High 70-100 [facility] Comment on above: Performed By: #### L [id number] ####[facility] ([facility])[address] [place] [address] Potassium [Moles/Vol] 4.2 mmol/L Normal 3.5-5.1 [facility] Comment on above: Performed By: #### L [id number] ####[facility] ([facility])[address] [place] [address] Sodium [Moles/Vol] 136 mmol/L Normal 136-145 [facility] Comment on above: Performed By: #### L [id number] ####[facility] ([facility])[address] [place] [address] Urea nitrogen [Mass/Vol] 17 mg/dL Normal 7-25 [facility] Comment on above: Performed By: #### L [id number] ####[facility] ([facility])[address] [place] [address] UREA NITROGEN/CREATININE (MASS RATIO) IN SER/PLAS 13.[address] [facility] Comment on above: Performed By: #### L [id number] ####[facility] ([facility])[address] [place] [address] CBC WITH AUTO DIFFERENTIALon 11-26-2022 Basophils (Bld) [#/Vol] 0.03 10*3/uL Normal 0.00-0.20 [facility] Comment on above: Performed By: #### L [id number] ####[facility] ([facility])[address] [place] [address] Basophils/100 WBC (Bld) 0.4 % Normal 0.0-1.0 [facility] Comment on above: Performed By: #### L [id number] ####[facility] ([facility])[address] [place] [address] Eosinophils (Bld) [#/Vol] 0.21 10*3/uL Normal 0.00-0.50 [facility] Comment on above: Performed By: #### L [id number] ####[facility] ([facility])[address] [place] [address] Eosinophils/100 WBC (Bld) 3.1 % Normal 0.0-6.0 [facility] Comment on above: Performed By: #### L [id number] ####[facility] ([facility])[address] [place] [address] Erythrocyte distribution width (RBC) [Ratio] 14.3 % Normal 11.5-15.0 [facility] Comment on above: Performed By: #### L [id number] ####[facility] ([facility])[address] [place] [address] ERYTHROCYTE MEAN CORPUSCULAR HEMOGLOBIN CONCENTRATION (G/DL) BY AUTOMATED 33.4 g/dL Normal 32.0-35.0 [facility] Comment on above: Performed By: #### L [id number] ####[facility] ([facility])[address] [place] [address] Hematocrit (Bld) [Volume fraction] 42.5 % Normal 39.0-55.0 [facility] Comment on above: Performed By: #### L [id number] ####[facility] ([facility])[address] [place] [address] Hemoglobin (Bld) [Mass/Vol] 14.2 g/dL Normal 13.0-17.0 [facility] Comment on above: Performed By: #### L [id number] ####[facility] ([facility])[address] [place] [address] Immature granulocytes (Bld) [#/Vol] 0.03 10*3/uL Normal 0.00-0.20 [facility] Comment on above: Performed By: #### L [id number] ####[facility] ([facility])[address] [place] [address] Immature granulocytes/100 WBC (Bld) 0.4 % Normal 0.0-1.0 [facility] Comment on above: Performed By: #### L [id number] ####[facility] ([facility])[address] [place] [address] Lymphocytes (Bld) [#/Vol] 1.09 10*3/uL Low 1.20-4.00 [facility] Comment on above: Performed By: #### L [id number] ####[facility] ([facility])[address] [place] [address] Lymphocytes/100 WBC (Bld) 16.2 % Low 20.0-45.0 [facility] Comment on above: Performed By: #### L [id number] ####[facility] ([facility])[address] [place] [address] MCH (RBC) [Entitic mass] 29.1 pg Normal 27.0-33.0 [facility] Comment on above: Performed By: #### L [id number] ####[facility] ([facility])[address] [place] [address] MCV (RBC) [Entitic vol] 87.1 fL Normal 82.0-98.0 [facility] Comment on above: Performed By: #### L [id number] ####[facility] ([facility])[address] [place] [address] Monocytes (Bld) [#/Vol] 0.46 10*3/uL Normal 0.10-1.00 [facility] Comment on above: Performed By: #### L [id number] ####[facility] ([facility])[address] [place] [address] Monocytes/100 WBC (Bld) 6.8 % Normal 5.0-12.0 [facility] Comment on above: Performed By: #### L [id number] ####[facility] ([facility])[address] [place] [address] Neutrophils (Bld) [#/Vol] 4.90 10*3/uL Normal 1.60-7.60 [facility] Comment on above: Performed By: #### L [id number] ####[facility] ([facility])[address] [place] [address] Neutrophils/100 WBC (Bld) 73.1 % High 40.0-72.0 [facility] Comment on above: Performed By: #### L [id number] ####[facility] ([facility])[address] [place] [address] NRBC (PER 100 WBCS) BY AUTOMATED COUNT 0.0 % Normal 0 [facility] Comment on above: Performed By: #### L [id number] ####[facility] ([facility])[address] [place] [address] PLATELETS (10*3/UL) IN BLOOD AUTOMATED COUNT 201 10*3/uL Normal 150-400 [facility] Comment on above: Performed By: #### L [id number] ####[facility] ([facility])[address] [place] [address] RBC (Bld) [#/Vol] 4.88 10*6/uL Normal 4.20-5.70 [facility] Comment on above: Performed By: #### L [id number] ####[facility] ([facility])[address] [place] [address] WBC (Bld) [#/Vol] 6.72 10*3/uL Normal 4.00-10.60 [facility] Comment on above: Performed By: #### L [id number] ####[facility] ([facility])[address] [place] [address] MAGNESIUMon 11-26-2022 Magnesium [Mass/Vol] 1.7 mg/dL Low 1.9-2.7 [facility] Comment on above: Performed By: #### L [id number] ####[facility] ([facility])[address] [place] [address] NURSNOTEon 11-26-[address] [facility] PHOSPHORUSon 11-26-2022 Magnesium [Mass/Vol] 3.0 mg/dL Normal 2.5-5.0 [facility] Comment on above: Performed By: #### L [id number] ####[facility] ([facility])[address] [place] [address] POCT GLUCOSE METER UNSOLICIT ED RESULTSon 11-26-2022 Glucose [Mass/Vol] 188 mg/dL High 70-105 [facility] Comment on above: Order Comment: Waive d Testing in the ED is performed under the ED CLIA certificate #[id number]. Result Comment: [email or web address] Performed By: #### L [id number] ####[facility] ([facility])[address] [place] [address] Glucose [Mass/Vol] 142 mg/dL High 70-105 [facility] Comment on above: Order Comment: Waive d Testing in the ED is performed under the ED CLIA certificate #[id number]. Result Comment: [email or web address] yanez Performed By: #### L [id number] ####[facility] ([facility])[address] [place] [address] Glucose [Mass/Vol] 201 mg/dL High 70-105 [facility] Comment on above: Order Comment: Waive d Testing in the ED is performed under the ED CLIA certificate #[id number]. Result Comment: [email or web address] Performed By: #### L [id number] ####[facility] ([facility])[address] [place] [address] Glucose [Mass/Vol] 159 mg/dL High 70-105 [facility] Comment on above: Order Comment: Waive d Testing in the ED is performed under the ED CLIA certificate #[id number]. Result Comment: [email or web address] Performed By: #### L [id number] ####[facility] ([facility])[address] [place] [address] TROPONIN Ion 11-26-2022 Troponin I.cardiac [Mass/Vol] 0.02 ng/mL Normal 0.00-0.04 [facility] Comment on above: Performed By: #### L [id number] ####[facility] ([facility])[address] [place] [address] 30on 11-25-[address] [facility] ANTI-XA (HEPARIN LEVEL)on HEPARIN UNFRACTIONATED (U/ML) IN PPP BY CHROMOGENIC METHOD >1.00 Critically high 0.3-0.7 [facility] Comment on above: Order Comment: Check anti-Xa level every 6 hours while on heparin infusion, or per protocol. Result Comment: [place] roxaban and Apixaban will interfere with the anti Xa assay used to monitor UFH and LMWH. Performed By: #### L [id number] ####[facility] ([facility])[address] [place] [address] APTTon 11-25-2022 ACTIVATED PARTIAL THROMBOPLASTIN TIME IN PPP BY COAGULATION ASSAY 31.6 Seconds Normal 25.0-35.0 [facility] Comment on above: Order Comment: Basel ine aPTT before initiating heparin infusion. Result Comment: Clin ical significance of the APTT is questionable in the presence of heparin. Performed By: #### L [id number] ####[facility] ([facility])[address] [place] [address] ACTIVATED PARTIAL THROMBOPLASTIN TIME IN PPP BY COAGULATION ASSAY 32.7 Seconds Normal 25.0-35.0 [facility] Comment on above: Result Comment: Clin ical significance of the APTT is questionable in the presence of heparin. Performed By: #### L [id number] ####[facility] ([facility])[address] [place] [address] BASIC METABOLIC PANELon 11-11 Anion gap [Moles/Vol] 11 mmol/L Normal 7-20 [facility] Comment on above: Performed By: #### L [id number] ####[facility] ([facility])[address] [place] [address] Calcium [Mass/Vol] 9.2 mg/dL Normal 8.6-10.3 [facility] Comment on above: Performed By: #### L [id number] ####[facility] ([facility])[address] [place] [address] Chloride [Moles/Vol] 105 mmol/L Normal 98-107 [facility] Comment on above: Performed By: #### L [id number] ####[facility] ([facility] [place] [address] CO2 [Moles/Vol] 26 mmol/L Normal 21-31 [facility] Comment on above: Performed By: #### L [id number] ####[facility] ([facility] [place] [address] Creatinine [Mass/Vol] 1.21 mg/dL Normal 0.70-1.30 [facility] Comment on above: Performed By: #### L [id number] ####[facility] ([facility])[address] [place] [address] GLOMERULAR FILTRATION RATE ML/MIN/1.73 SQ M.PREDICTED 64.4 mL/min/1.73m*2 Normal >60.0 [facility] Comment on above: Result Comment: [facility]???s estimated glomerular filtration rate (eGFR) will [...] individuals. Performed By: #### L [id number] ####[facility] ([facility] [place] [address] Glucose [Mass/Vol] 200 mg/dL High 70-100 [facility] Comment on above: Performed By: #### L [id number] ####[facility] ([facility] [place] [address] Potassium [Moles/Vol] 3.8 mmol/L Normal 3.5-5.1 [facility] Comment on above: Performed By: #### L [id number] ####[facility] ([facility] [place] [address] Sodium [Moles/Vol] 138 mmol/L Normal 136-145 [facility] Comment on above: Performed By: #### L [id number] ####[facility] ([facility] [place] [address] Urea nitrogen [Mass/Vol] 18 mg/dL Normal 7-25 [facility] Comment on above: Performed By: #### L [id number] ####[facility] ([facility])[address] [place] [address] UREA NITROGEN/CREATININE (MASS RATIO) IN SER/PLAS 14.[address] [facility] Comment on above: Performed By: #### L [id number] ####[facility] ([facility])[address] [place] [address] CALCIUM, IONIZEDon CALCIUM IONIZED (MMOL/L) IN BLOOD 1.16 mmol/L Normal 1.15-1.33 [facility] Comment on above: Performed By: #### C ALCIUM, IONIZED ####[facility] [id number] [place] [address] [place] CBC WITH AUTO DIFFERENTIALon 11-25-2022 Basophils (Bld) [#/Vol] 0.03 10*3/uL Normal 0.00-0.20 [facility] Comment on above: Performed By: #### L [id number] ####[facility] ([facility])[address] [place] [address] Basophils/100 WBC (Bld) 0.5 % Normal 0.0-1.0 [facility] Comment on above: Performed By: #### L [id number] ####[facility] ([facility])[address] [place] [address] Eosinophils (Bld) [#/Vol] 0.15 10*3/uL Normal 0.00-0.50 [facility] Comment on above: Performed By: #### L [id number] ####[facility] ([facility])[address] [place] [address] Eosinophils/100 WBC (Bld) 2.3 % Normal 0.0-6.0 [facility] Comment on above: Performed By: #### L [id number] ####[facility] ([facility])[address] [place] [address] Erythrocyte distribution width (RBC) [Ratio] 14.1 % Normal 11.5-15.0 [facility] Comment on above: Performed By: #### L [id number] ####[facility] ([facility])[address] [place] [address] ERYTHROCYTE MEAN CORPUSCULAR HEMOGLOBIN CONCENTRATION (G/DL) BY AUTOMATED 34.5 g/dL Normal 32.0-35.0 [facility] Comment on above: Performed By: #### L [id number] ####[facility] ([facility])[address] [place] [address] Hematocrit (Bld) [Volume fraction] 44.4 % Normal 39.0-55.0 [facility] Comment on above: Performed By: #### L [id number] ####[facility] ([facility])[address] [place] [address] Hemoglobin (Bld) [Mass/Vol] 15.3 g/dL Normal 13.0-17.0 [facility] Comment on above: Performed By: #### L [id number] ####[facility] ([facility])[address] [place] [address] Immature granulocytes (Bld) [#/Vol] 0.03 10*3/uL Normal 0.00-0.20 [facility] Comment on above: Performed By: #### L [id number] ####[facility] [place] [address] Immature granulocytes/100 WBC (Bld) 0.5 % Normal 0.0-1.0 [facility] Comment on above: Performed By: #### L [id number] ####[facility] ([facility] [place] [address] Lymphocytes (Bld) [#/Vol] 0.98 10*3/uL Low 1.20-4.00 [facility] Comment on above: Performed By: #### L [id number] ####[facility] ([facility])[address] [place] [address] Lymphocytes/100 WBC (Bld) 15.0 % Low 20.0-45.0 [facility] Comment on above: Performed By: #### L [id number] ####[facility] ([facility])[address] [place] [address] MCH (RBC) [Entitic mass] 29.4 pg Normal 27.0-33.0 [facility] Comment on above: Performed By: #### L [id number] ####[facility] ([facility])[address] [place] [address] MCV (RBC) [Entitic vol] 85.4 fL Normal 82.0-98.0 [facility] Comment on above: Performed By: #### L [id number] ####[facility] ([facility])[address] [place] [address] Monocytes (Bld) [#/Vol] 0.55 10*3/uL Normal 0.10-1.00 [facility] Comment on above: Performed By: #### L [id number] ####[facility] ([facility])[address] [place] [address] Monocytes/100 WBC (Bld) 8.4 % Normal 5.0-12.0 [facility] Comment on above: Performed By: #### L [id number] ####[facility] ([facility])[address] [place] [address] Neutrophils (Bld) [#/Vol] 4.80 10*3/uL Normal 1.60-7.60 [facility] Comment on above: Performed By: #### L [id number] ####[facility] ([facility])[address] [place] [address] Neutrophils/100 WBC (Bld) 73.3 % High 40.0-72.0 [facility] Comment on above: Performed By: #### L [id number] ####[facility] ([facility])[address] [place] [address] NRBC (PER 100 WBCS) BY AUTOMATED COUNT 0.0 % Normal 0 [facility] Comment on above: Performed By: #### L [id number] ####[facility] ([facility])[address] [address] PLATELETS (10*3/UL) IN BLOOD AUTOMATED COUNT 198 10*3/uL Normal 150-400 [facility] Comment on above: Performed By: #### L [id number] ####[facility] ([facility])[address] [place] [address] RBC (Bld) [#/Vol] 5.20 10*6/uL Normal 4.20-5.70 [facility] Comment on above: Performed By: #### L [id number] ####[facility] ([facility])[address] [place] [address] WBC (Bld) [#/Vol] 6.54 10*3/uL Normal 4.00-10.60 [facility] Comment on above: Performed By: #### L [id number] ####[facility] ([facility])[address] [place] [address] CONSULTon 11-25-[address] [facility] Documentationon 11-25-2022 Documentation [id number] Shad Rodriguez 1950 M Date Provider Department [place] 11/25/[id number] [facility] No family history on file Normal [facility] HEPATIC FUNCTION PANELon Albumin [Mass/Vol] 4.0 g/dL Normal 3.5-5.7 [facility] Comment on above: Performed By: #### L [id number] ####[facility] ([facility])[address] [place] [address] ALP [Catalytic activity/Vol] 88 U/L Normal 34-104 [facility] Comment on above: Performed By: #### L [id number] ####[facility] ([facility])[address] [place] [address] ALT [Catalytic activity/Vol] 26 U/L Normal 7-52 [facility] Comment on above: Performed By: #### L [id number] ####[facility] ([facility])[address] [place] [address] AST [Catalytic activity/Vol] 18 U/L Normal 13-39 [facility] Comment on above: Performed By: #### L [id number] ####[facility] ([facility])[address] [place] [address] Bilirubin [Mass/Vol] 0.6 mg/dL Normal 0.3-1.0 [facility] Comment on above: Performed By: #### L [id number] ####[facility] ([facility])[address] [place] [address] Magnesium [Mass/Vol] 0.2 mg/dL Normal 0-0.2 [facility] Comment on above: Performed By: #### L [id number] ####[facility] ([facility])[address] [place] [address] Protein [Mass/Vol] 6.4 g/dL Normal 6.0-8.3 [facility] Comment on above: Performed By: #### L [id number] ####[facility] ([facility])[address] [place] [address] HPon 11-25-[address] [facility] HP Normal [facility] MAGNESIUMon 11-25-2022 Magnesium [Mass/Vol] 1.7 mg/dL Low 1.9-2.7 [facility] Comment on above: Performed By: #### L [id number] ####[facility] ([facility])[address] [place] [address] PHOSPHORUSon 11-25-2022 Magnesium [Mass/Vol] 3.2 mg/dL Normal 2.5-5.0 [facility] Comment on above: Performed By: #### L [id number] ####[facility] ([facility])[address] [place] [address] PLATELET COUNTon 11-25-2022 PLATELETS (10*3/UL) IN BLOOD AUTOMATED COUNT 204 10*3/uL Normal 150-400 [facility] Comment on above: Performed By: #### L [id number] ####[facility] ([facility])[address] [place] [address] POCT GLUCOSE METER UNSOLICIT ED RESULTSon 11-25-2022 Glucose [Mass/Vol] 194 mg/dL High 70-105 [facility] Comment on above: Order Comment: Waive d Testing in the ED is performed under the ED CLIA certificate #[id number]. Result Comment: abec [email or web address] Performed By: #### L [id number] ####[facility] ([facility])[address] [place] [address] Glucose [Mass/Vol] 193 mg/dL High 70-105 [facility] Comment on above: Order Comment: Waive d Testing in the ED is performed under the ED CLIA certificate #[id number]. Result Comment: awat [email or web address] Performed By: #### L [id number] ####[facility] ([facility])[address] [place] [address] Glucose [Mass/Vol] 188 mg/dL High 70-105 [facility] Comment on above: Order Comment: Waive d Testing in the ED is performed under the ED CLIA certificate #[id number]. Result Comment: awat kin26 Performed By: #### L [id number] ####[facility] ([facility])[address] [place] [address] Glucose [Mass/Vol] 178 mg/dL High 70-105 [facility] Comment on above: Order Comment: Waive d Testing in the ED is performed under the ED CLIA certificate #[id number]. Result Comment: abec [email or web address] Performed By: #### L [id number] ####[facility] ([facility])[address] [place] [address] POTASSIUM, WHOLE BLOODon Potassium [Moles/Vol] 3.9 mmol/L Normal 3.5-5.1 [facility] Comment on above: Performed By: #### P OTASSIUM, WHOLE BLOOD ####[facility] RESPIRATORY [id number] [place] [address] [place] PROTIME-INRon 11-25-2022 INR IN PPP BY COAGULATION ASSAY 1.74 High 0.90-1.10 [facility] Comment on above: Result Comment: ACCC [...] 1995;108:231S-246S. Performed By: #### L [id number] ####[facility] (BEAKER)[address] [place] [address] PROTHROMBIN TIME (PT) IN PPP BY COAGULATION ASSAY 20.4 Seconds High 12.3-14.8 [facility] Comment on above: Performed By: #### L [id number] ####[facility] ([facility]ER)[address] [place] [address] SODIUM, WHOLE BLOODon 2022 SODIUM, WHOLE BLOOD 132 Low 136-145 [facility] Comment on above: Performed By: #### S ODIUM, WHOLE BLOOD ####[facility] RESPIRATORY [id number] [place] [address] [place] TROPONIN Ion 11-25-2022 Troponin I.cardiac [Mass/Vol] 0.03 ng/mL Normal 0.00-0.04 [facility] Comment on above: Performed By: #### L [id number] ####[facility] ([facility])[address] [place] [address] Troponin I.cardiac [Mass/Vol] 0.01 ng/mL Normal 0.00-0.04 [facility] Comment on above: Performed By: #### L [id number] ####[facility] ([facility])[address] [place] [address] CHEMISTRYOrdered By: Lab ROP User on 10-02-2022 INR Coag (Bld) [Relative time] 2.1 {INR} High 0.7 - 1.2 [facility] Subsection POC Device SN [id number] Invalid Interpretation Code [facility] Subsection POC Username PARISA HYDE Invalid Interpretation Code [facility] Subsection POCT PT 23.2 s High 8.0 - 15.0 second(s) [facility] Subsection Sodium [Moles/Vol] 409921370 mmol/L Invalid Interpretation Code [facility] Subsection COAGULATIONOrdered By: Elenita Hyde on 10-02-2022 INR Coag (Bld) [Relative time] 2.1 {INR} High 0.7 - 1.2 [facility] POCT PT 23.2 s High 8 - 15 second(s) [facility] POCT PT/INRon 10-02-2022 POCT INR 2.1 High .7-1.2 [facility] Comment on above: Performed By: #### 2 [id number] ####[facility] [address] [place] [address] POCT PT 23.2 second(s) High 8.0-15.0 [facility] Comment on above: Performed By: #### 2 [id number] ####[facility] [address] [place] [address] CHEMISTRYOrdered By: Lab ROP User on 08-21-2022 POC Device SN [id number] Invalid Interpretation Code [facility] Subsection POC Username CHRISTINA HAINES Invalid Interpretation Code [facility] Subsection Sodium [Moles/Vol] 116590152 mmol/L Invalid Interpretation Code [facility] Subsection COAGULATIONOrdered By: Ebenezer Haines on 08-21-2022 INR Coag (Bld) [Relative time] 2.1 {INR} High 0.7 - 1.2 [facility] POCT PT 23.3 s High 8 - 15 second(s) [facility] POCT PT/INRon 08-21-2022 POCT INR 2.1 High .7-1.2 [facility] Comment on above: Performed By: #### 2 [id number] ####[facility] [address] [place] [address] POCT PT 23.3 second(s) High 8.0-15.0 [facility] Comment on above: Performed By: #### 2 [id number] ####[facility] [address] [place] [address] Progress Note-Physicianon Progress Note-Physician Patient: SHAD RODRIGUEZ [...] stroke: no 4. Serious co-morbid conditions (recent [place], anemia with Hct <30%, CRI with SCr [...] results, # 90 tab(s), Refills(s) 0, Pharmacy: [facility]/pharmacy #[id number], 167.6, cm, 01/02/19 13:46:00 EST, Height/Length Measured, 95.8, kg, 01/02/19 13:46:00 EST, Weight Measured Eliquis 2.5 mg oral tablet: 2.5 mg = 1 tab(s), Oral, BID, # 60 tab(s), Refills(s) 5, Pharmacy: [facility]/pharmacy #[id number] Metamucil 525 mg oral capsule: 2,625 mg = 5 cap(s), Oral, Daily, X 90 day(s), # 450 cap(s), Refills(s) 3, Pharmacy: [facility]/pharmacy #[id number], 167.6, cm, 06/27/22 8:28:00 EDT, Height/Length Dosing, 94.9, kg, 06/27/22 8:28:00 EDT, Weight Dosing albuterol HFA 90 mcg/inh MDI: 2 puff(s), Inhalation, QID for wheezing, 6.7 gram, Refill(s) 0, [facility]/pharmacy #[id number] predniSONE 10 mg Tab: See Instructions, Oral 6 tabs for 1 day,5 tabs for 1 day,4 tabs for 1 day,3 tabs for 1 day,2 tabs for 1 day,1 tab for 1 day, # 21 tab(s), Refills(s) 0, Pharmacy: [facility]/pharmacy #[id number] Documented Medications Documented Immodium A-D 2 mg [...] list: All Problems Bloating / SNOMED CT 198204601 / Confirmed Constipation / SNOMED CT 56744090 / Confirmed Diverticulosis / SNOMED CT 5945716282 / Confirmed Acid reflux / SNOMED CT 438842686 / Confirmed Hemorrhoids / SNOMED CT 123061465 / Confirmed History of rectal cancer / SNOMED CT 9640682235 / Confirmed History of colon polyps / SNOMED CT 2367879123 / Confirmed Hypercoagulable state / SNOMED CT 025229566 / Confir (more content not included)... Normal [facility] Comment on above: Result Comment: Elec tronically Signed By: Leah OJEDA, Aggie\.br\Date and Time Signed: 08/21/22 08:26 EDT CHEMISTRYOrdered By: Danni BARBA User on 07-10-2022 POC Device SN [id number] Invalid Interpretation Code [facility] Subsection POC Username SHAYY CAIN Invalid Interpretation Code [facility] Subsection Sodium [Moles/Vol] 203608679 mmol/L Invalid Interpretation Code [facility] Subsection POCT PT/INRon 07-10-2022 POCT INR 2.3 High .7-1.2 [facility] Comment on above: Performed By: #### 2 [id number] ####[facility] [address] [place] [address] POCT PT 24.8 second(s) High 8.0-15.0 [facility] Comment on above: Performed By: #### 2 [id number] ####[facility] [address] [place] [address] Ambulatory Visit Summaryon 0 06-27-2022 Ambulatory Visit [...] day Constipation Duration: 90 Days Pickup at [facility]/pharmacy #[id number] Unchanged albuterol (albuterol HFA 90 mcg/ inh [...] or concerns Pharmacy Information [id number]: [address] [place], [place] [id number] [phone] Allergies Ragweed (Dyspnea) penicillins (unknown) Problems Ongoing [...] It may (more content not included)... Normal [facility] Auto Diffon 06-27-2022 Basophils/100 WBC (Bld) 0.2 % Normal 0.0-2.0 [facility] Comment on above: Order Comment: Order Added by Discern Expert. Performed By: #### 2 598677, 5702618, 3163846, 55621284, 0012351 ####[address] [place] [address] Basophils/Leukocytes Auto (Bld) [Pure # fraction] 0.0 E9/L Normal 0.0-0.2 [facility] Comment on above: Order Comment: Order Added by Discern Expert. Performed By: #### 2 375402, 4429137, 1748524, 10255006, 2655848 ####[address] [place] [address] Eosinophils/100 WBC (Bld) 2.1 % Normal 0.0-8.0 [facility] Comment on above: Order Comment: Order Added by Discern Expert. Performed By: #### 2 692573, 7513496, 5666111, 58545471, 2125496 ####[address] [place] [address] Eosinophils/Leukocyte s Auto (Bld) [Pure # fraction] 0.1 E9/L Normal 0.0-0.5 [facility] Comment on above: Order Comment: Order Added by Discern Expert. Performed By: #### 2 393263, 4675536, 1090887, 10403582, 7314992 ####[address] [place] [address] Lymphocytes/100 WBC (Bld) 16.3 % Normal 14.0-50.0 [facility] Comment on above: Order Comment: Order Added by Discern Expert. Performed By: #### 2 020630, 5224212, 3894408, 92032472, 5951768 ####[address] [place] [address] Lymphocytes/Leukocyte s Auto (Bld) [Pure # fraction] 1.0 E9/L Normal 1.0-4.0 [facility] Comment on above: Order Comment: Order Added by Discern Expert. Performed By: #### 2 324608, 6573863, 2565444, 78801508, 0644155 ####[address] [address] Monocytes/100 WBC (Bld) 9.0 % Normal 4.0-14.0 [facility] Comment on above: Order Comment: Order Added by Michael Expert. Performed By: #### 2 335132, 7039223, 4367998, 14832903, 4945040 ####[address] [address] Monocytes/Leukocytes Auto (Bld) [Pure # fraction] 0.6 E9/L Normal 0.2-1.0 [facility] Comment on above: Order Comment: Order Added by Michael Expert. Performed By: #### 2 532259, 0168636, 8417312, 41074902, 5760305 ####[address] [address] Neutrophils/100 WBC (Bld) 72.4 % Normal 36.0-75.0 [facility] Comment on above: Order Comment: Order Added by Michael Expert. Performed By: #### 2 037097, 1823485, 3833329, 19524958, 3920136 ####[address] [address] Neutrophils/Leukocyte s Auto (Bld) [Pure # fraction] 4.6 E9/L Normal 2.0-7.5 [facility] Comment on above: Order Comment: Order Added by Michael Expert. Performed By: #### 2 902745, 3797706, 5230577, 53551814, 7409014 ####[address] [place] [address] CBC w/ Auto Diffon 3 Erythrocyte distribution width (RBC) [Ratio] 14.0 % Normal 10.9-14.2 [facility] Comment on above: Performed By: #### 2 728413, 0140174, 7902199, 65204901, 0842729 ####[address] [place] [address] Hematocrit (Bld) [Volume fraction] 46.6 % Normal 37.7-49.0 [facility] Comment on above: Performed By: #### 2 281589, 0145003, 6382481, 87527148, 4401259 ####[address] [address] Hemoglobin (Bld) [Mass/Vol] 15.3 g/dL Normal 13.5-17.5 [facility] Comment on above: Performed By: #### 2 151217, 9221213, 0217435, 60771095, 8942426 ####[address] [address] MCH (RBC) [Entitic mass] 29.2 pg Normal 27.0-34.0 [facility] Comment on above: Performed By: #### 2 910724, 1663987, 0801105, 30091786, 0101564 ####[address] [address] MCHC (RBC) [Mass/Vol] 32.8 g/dL Normal 31.4-36.0 [facility] Comment on above: Performed By: #### 2 523356, 9397621, 3975830, 70197464, 0227926 ####[address] [address] MCV (RBC) [Entitic vol] 89.2 fL Normal 80.0-100.0 [facility] Comment on above: Performed By: #### 2 030387, 0370992, 1007449, 52527052, 1434358 ####[facility] [address] [place] [address] Platelet mean volume (Bld) [Entitic vol] 8.9 fL Normal 6.4-10.8 [facility] Comment on above: Performed By: #### 2 226871, 9971581, 4846115, 30379018, 3429509 ####[address] [place] [address] Platelets (Bld) [#/Vol] 197.0 E9/L Normal 150.0-500.0 [facility] Comment on above: Performed By: #### 2 036898, 6455649, 4699038, 25218484, 2561777 ####[address] [place] [address] RBC (Bld) [#/Vol] 5.2 E12/L Normal 4.3-5.9 [facility] Comment on above: Performed By: #### 2 193396, 7543105, 3563883, 79562722, 9813992 ####[address] [address] WBC corrected for nucl RBC Auto (Bld) [#/Vol] 6.4 E9/L Normal 4.0-11.0 [facility] Comment on above: Performed By: #### 2 707081, 4826945, 0325354, 08084481, 6113145 ####[address] [address] CEAon 06-27-2022 Carcinoembryonic Ag [Mass/Vol] 2.0 ng/mL Invalid Interpretation Code [facility] Comment on above: Result Comment: REFE RENCE VALUES <2.5 ng/mL (NONSMOKER) <5.0 ng/mL (SMOKER) The concentration of CEA in a given specimen determined by different manufacturers can vary due to differences in assay methods and reagent specificity. Values obtained with different assay methods cannot be used interchangeably. The methodology used to perform this test was chemiluminescence using [employer] Access CEA reagent. Performed By: #### 2 933568, 3180468, 8959175, 69769367, 4766469 ####[facility] [address] [place] [address] CMPon 06-27-2022 Albumin [Mass/Vol] 3.9 g/dL Normal 3.3-5.0 [facility] Comment on above: Performed By: #### 2 160948, 5960658, 2131370, 97259754, 3025660 ####[address] [address] Albumin/Globulin (S) [Mass conc ratio] 1.3 Normal 1.1-2.2 [facility] Comment on above: Performed By: #### 2 941868, 7268998, 2692242, 91283189, 4378388 ####[address] [address] ALP [Catalytic activity/Vol] 94 Int._Unit/L Normal 21-98 [facility] Comment on above: Performed By: #### 2 260471, 4048300, 0269563, 97590524, 6075731 ####[address] [address] ALT No additional P-5'-P [Catalytic activity/Vol] 29 Int._Unit/L Normal 6-46 [facility] Comment on above: Performed By: #### 2 971074, 1239871, 9672490, 90337962, 2263136 ####[address] [place] [address] Anion gap [Moles/Vol] 10 mmol/L Normal 6-16 [facility] Comment on above: Performed By: #### 2 673443, 4922058, 4344138, 70792756, 6759370 ####[address] [place] [address] AST [Catalytic activity/Vol] 24 Int._Unit/L Normal 5-43 [facility] Comment on above: Performed By: #### 2 572395, 1571082, 4612114, 24825829, 8191709 ####[facility] [address] [place] [address] Bilirubin [Mass/Vol] 0.6 mg/dL Normal 0.0-1.1 [facility] Comment on above: Performed By: #### 2 604647, 8305514, 5671351, 17492232, 3407462 ####[address] [place] [address] Calcium [Mass/Vol] 9.1 mg/dL Normal 8.9-11.1 [facility] Comment on above: Performed By: #### 2 924249, 7891054, 5314465, 46520547, 3785089 ####[address] [place] [address] Chloride [Moles/Vol] 104 mmol/L Normal 101-111 [facility] Comment on above: Performed By: #### 2 929633, 0726840, 3650725, 53406590, 8227136 ####[facility] [address] [place] [address] CO2 [Moles/Vol] 28 mmol/L Normal 21-31 [facility] Comment on above: Performed By: #### 2 046271, 4575239, 5366855, 11331072, 8632030 ####[facility] [address] [place] [address] Creatinine [Mass/Vol] 1.3 mg/dL Normal 0.5-1.3 [facility] Comment on above: Performed By: #### 2 601493, 1281310, 9430281, 71482345, 3969082 ####[facility] [address] [place] [address] Globulin (S) [Mass/Vol] 3.1 g/dL Normal 1.4-4.0 [facility] Comment on above: Performed By: #### 2 069571, 4266288, 2809097, 53436770, 0004621 ####[facility] [address] [place] [address] Glucose [Mass/Vol] 176 mg/dL Normal 55-199 [facility] Comment on above: Result Comment: If t his glucose result represents a fasting glucose, interpretation should refer to the following reference range: 55-99 mg/dL Performed By: #### 2 878764, 2740146, 7242440, 32896858, 5374827 ####[facility] [address] [place] [address] Potassium [Moles/Vol] 3.7 mmol/L Normal 3.5-5.3 [facility] Comment on above: Performed By: #### 2 834165, 9529059, 1783237, 26265796, 1400706 ####[facility] [address] [place] [address] Protein [Mass/Vol] 7.0 g/dL Normal 6.0-7.8 [facility] Comment on above: Performed By: #### 2 567939, 3193319, 7453119, 67227592, 7867258 ####[facility] [address] [place] [address] Sodium [Moles/Vol] 138 mmol/L Normal 135-145 [facility] Comment on above: Performed By: #### 2 633670, 8572579, 4593556, 98164608, 5354488 ####[facility] [address] [place] [address] Urea nitrogen [Mass/Vol] 15 mg/dL Normal 5-21 [facility] Comment on above: Performed By: #### 2 642373, 0141447, 3470066, 64644042, 4341798 ####[facility] [address] [place] [address] Urea nitrogen/Creatinine [Mass ratio] 12 No Units Normal 10-20 [facility] Comment on above: Performed By: #### 2 218911, 5395181, 6664941, 77154602, 4500110 ####[facility] [address] [place] [address] Consent for Treatmenton 06-11 Consent for Treatment [id number] [id number]#1.0 0CD:127 Normal [facility] Consent for Treatment [id number] [id number]#1.0 0CD:127 Normal [facility] Consent for Treatment [id number] [id number]#1.0 0CD:127 Normal [facility] Gastroenterology Office/Clin ic Noteon 06-27-2022 [...] day(s), # 450 cap(s), Refills(s) 3, Pharmacy: [facility]/pharmacy #[id number], 167.6, cm, 06/27/22 8:28:00 EDT, Height/Length Dosing, [...] rectal cance (more content not included)... Normal [facility] Comment on above: Result Comment: Elec tronically Signed By: Cira MINER, Yusra Pickett\.br\Date and Time Signed: 06/27/22 08:50 EDT Magnesiumon 06-27-2022 Magnesium [Mass/Vol] 1.9 mg/dL Normal 1.3-2.4 [facility] Comment on above: Performed By: #### 2 930956, 2991896 ####[facility] [address] [place] [address] Oncology Progress Noteon Oncology Progress Note Patient: [...] did have uneventful hernia repair surgery in [place]. He will be going to [place] and [...] list: All Problems Bloating / SNOMED CT 060057867 / Confirmed Constipation / SNOMED CT 02225903 / Confirmed Diverticulosis / SNOMED CT 7012661047 / Confirmed Acid reflux / SNOMED CT 193057827 / Confirmed Hemorrhoids / SNOMED CT 165938585 / Confirmed History of rectal cancer / SNOMED CT 8600496438 / Confirmed History of colon polyps / SNOMED CT 8312274446 / Confirmed Hypercoagulable state / SNOMED CT 300124910 / Confirmed Schatzki's ring / SNOMED CT 366841774 / Confirmed Colon polyp / SNOMED CT 578253119 / Confirmed Resolved: Change in bowel habits / SNOMED CT 363929118 Resolved: At Risk For Unstable Blood Glucose Level / IMO 0244450 Problem added due to documentation that the patient has diabetes. Resolved due to patient discharge. Resolved: Colon cancer / SNOMED CT 3708544921 Resolved: DVT - Deep vein thrombosis / SNOMED CT 2885192070 Resolved: Dysphagia / SNOMED CT 57152602 Histories Past Medical History: Resolved Colon cancer (3159609650): Resolved. DVT - Deep vein thrombosis (1110507076): Resolved. Change in bowel habits (798138476): Resolved. Dysphagia (03753820): R (more content not included)... Normal [facility] Patient Educationon 06-28-19 Patient Education [...] as fried or sweet foods. These include syriac fries, hamburgers, cookies, candies, and soda. ? Drink enough fluid to keep your urine pale yellow. General instructions ? Exercise regularly or as told by your health care provider. Try to do 150 minutes of moderate exercise each week. ? Use the bathroom when you have the urge to go. Do not hold it in. ? Take zzdb-dqw-cmzzxzv and prescription medicines only as told by [...] keep your urine pale yellow. ? Take jlfb-tay-iwishdt and prescription medicines only as told by your health care provider. This includes any fiber supplements. This information is not intended to replace advice given to you by your health care provider. Make sure you discuss any questions you have with your health care provider. Document Revised: 12/16/2019 Document Reviewed: 12/16/2019 [employer] Patient Education ? 2022 [employer] Normal [facility] Vit B12on 06-27-2022 Cobalamin (Vitamin B12) [Mass/Vol] 338 pg/mL Normal 50-1500 [facility] Comment on above: Performed By: #### 2 654431, 0565824 ####[facility] [address] [place] [address] eGFRon 06-27-2022 GFR/1.73 sq M.predicted among non-blacks MDRD (S/P/Bld) [Vol rate/Area] 59 mL/min/1.73 m2 Normal >=59 [facility] Comment on above: Order Comment: Order added by Discern Expert. Result Comment: Nailer Operator lisa kidney disease could be indicated at eGFR's of less than 60 mL/min/1.73m2. Kidney failure is indicated at less than 15 mL/min/1.73m2. Performed By: #### 2 331829, 6100441, 6943044, 95503343, 6619932 ####[facility] [address] [place] [address] POCT PT/INRon 06-01-2022 POCT INR 2.1 High .7-1.2 [facility] Comment on above: Performed By: #### 2 783751770 ####[facility] [address] [place] [address] POCT PT 23.5 second(s) High 8.0-15.0 [facility] Comment on above: Performed By: #### 2 [id number] ####[facility] [address] [place] [address] Ambulatory Visit Summaryon 0 05-17-2022 Ambulatory Visit [...] AM EDT With: Yusra Denis CNP Where: [facility] Normal [facility] Gastroenterology Office/Clin ic Noteon 05-17-2022 [...] day(s), # 450 cap(s), Refills(s) 0, Pharmacy: [facility]/pharmacy #[id number], 167.6, cm, 05/17/22 8:01:00 EDT, Height/Length Dosing, [...] and an (more content not included)... Normal [facility] Comment on above: Result Comment: [...] a fiber (more content not included)... Normal [facility] Outside Recordson 05-08-2022 Outside Records [id number] 22 [id number]#1.0 0CD:127 [facility] Outside Recordson 04-12-2022 Outside Records [id number] 04 [id number]#1. 00CD:127 [facility] [facility] 03-29-2022 Outside Records [id number]#1. 00CD:127 [facility] Outside Recordson 02-28-2022 Outside Records [id number]#1. 00CD:127 [facility] Outside Recordson 02-06-2022 Outside Records [id number]#1. 00CD:127 [facility] COAGULATIONOrdered By: Elenita Hyde on 01-09-2022 POCT INR 2.8 High 0.7 - 1.2 [facility] POCT PT 30.2 High 8 - 15 [facility] CHEMISTRYOrdered By: SYSTEM SYSTEM on 12-27-2021 Albumin [...] - 11.0 E9/L [facility] HemeAutoSS Covid-19 PCR ([facility])on SARS-CoV-2 (COVID-19) RNA KELLY+probe Ql (Unsp spec) Detected Critically abnormal NOT DETECTED [facility] Comment on above: Result Comment: This test is not yet approved or cleared by the [place] FDA. When there are no FDA-approved or cleared tests available, and other criteria are met, FDA can make tests available under an emergency access mechanism called an Emergency Use Authorization (EUA). The EUA for this test is supported by the Airline Pilot of Health and Human Service's (HHS's) declaration [...] used). Performed By: #### C VDTBH #### [facility] [address] [place] [address] Dr. Kayli Perez INFLUENZA A AND B AGon 12-14 INFLUANEGH SEE BELOW Normal [facility] Comment on above: Result Comment: Nega tive for Flu A protein angiten. Infection due to Flu A cannot be ruled out. Flu A angiten in the sample may be below the detection limit of the test. Performed By: #### I NFLUAB #### [facility] [address] [place] [address] Dr. Kayli Perez INFLUBNEG SEE BELOW Normal [facility] Comment on above: Result Comment: Nega tive for Flu B protein antigen. Infection due to Flu B cannot be ruled out. Flu B antigen in the sample may be below the detection limit of the test. Performed By: #### I NFLUAB #### [facility] [address] [place] [address] Dr. Kayli Perez INFLUENZA A AG Negative Normal NEGATIVE SEE COMMENT [facility] Comment on above: Performed By: #### I NFLUAB #### [facility] [address] [place] [address] Dr. Kayli Perez INFLUENZA B AG Negative Normal NEGATIVE SEE COMMENT [facility] Comment on above: Performed By: #### I NFLUAB #### [facility] [address] [place] [address] Dr. Kayli Perez INTERNAL CONTROLS Within Normal Limits Normal Wi thin Normal Limits [facility] Comment on above: Performed By: #### I NFLUAB #### [facility] [address] [place] [address] Dr. Kayli Perez CHEMISTRYOrdered By: Christina Haines on 11-28-2021 INR POC FT 2.5 [facility] PT POC FT 30.3 s High 10.8 - 13.6 second(s) [facility] CHEMISTRYOrdered By: Parisa Hyde on 10-13-2021 INR POC FT 2.4 [facility] PT POC FT 28.9 s High 10.8 - 13.6 second(s) [facility] CHEMISTRYOrdered By: Shayy Cain on 10-03-2021 INR POC FT 2.6 [facility] PT POC FT 31.6 s High 10.8 - 13.6 second(s) [facility] CHEMISTRYOrdered By: SYSTEM SYSTEM on 06-23-2021 Albumin [...] CNPBriana 12-20-2020 ISIDRAN Telephone (RAIZA) SHAD RODRIGUEZ ([id number]) 1950 M Date Time Provider Department 12/20/20 [...] Date Reviewed: 09/05/2020 Reviewed by: Cydney Koch APRN.GENERAL DISTILLERY WORKER - Fully Assessed Reason for Visit: Patient [...] Encounter Status:Closed by NANCI FUNES on 12/20/20 [facility] CNOVon 09-05-2020 CNOV Office Visit (GENN ) SHAD RODRIGUEZ ([id number]) 1950 M Date Time Provider Department 09/05/20 11:00 AM CYDNEY KOCH During your visit today, we recorded the following information about you: Temperature Pulse Blood pressure Weight 97.7 degrees 77/minute 139/84 86.3 kg Height 1.702 m Binta Matos Nh 09/05/2020 11:04 AM Signed What is the reason for your visit today? Post op Who is your referring physician? Dr. Amaya Are you having poor oral intake? NO Have you had unintentional weight loss of 15 lbs/7 Kg in the last 3-6 months? NO Bowels: regular Wound: clean AND dry Temperature: No Drains: No Cydney Koch APRN.CNP 09/05/2020 11:19 AM Signed [facility] Clinic Date: 09/05/2020 [...] needed. Randomized control trial: RINSE/FIXATION Cydney Koch APRN.GENERAL DISTILLERY WORKER September 04, (more content not included)... Normal [facility] ALLIED HEALTHon 08-19-2020 ALLIED HEALTH HNO ID: [id number] Author: Chaplain Rosa Service: Spiritual Care Author [...] ended by prayer at the pt's request. Track Welder Signature: Chaplain ROSA To contact the Spiritual Care Department: Please call [phone] or Page the On-Call Track Welder at pager [phone] Thank you for the opportunity to be of service. This is an electronically created document. IF PRINTED, PLEASE DO NOT REMOVE FROM THE CHART OR MODIFY PRINTED COPY. Normal [facility] Basic Metabolic Panlon 08-19 Anion gap [Moles/Vol] 9 mmol/L Normal 9-[address] [facility] Comment on above: Performed By: #### P T, MG1, PHOS, BMP ####[facility] [place] [phone] Calcium [Mass/Vol] 8.9 mg/dL Normal 8.5-10.2 [facility] Comment on above: Performed By: #### P T, MG1, PHOS, BMP ####[place] [address] [address] [place], [place] [phone] Chloride [Moles/Vol] 100 mmol/L Normal 97-105 [facility] Comment on above: Performed By: #### P T, MG1, PHOS, BMP ####[place] [address] [address] [place], [place] [phone] CO2 [Moles/Vol] 25 mmol/L Normal 22-30 [facility] Comment on above: Performed By: #### P T, MG1, PHOS, BMP ####[place] [address] [address] [place], [place] [phone] Creatinine [Mass/Vol] 1.13 mg/dL Normal 0.73-1.[address] [facility] Comment on above: Performed By: #### P T, MG1, PHOS, BMP ####[facility] [place], [place] [phone] eGFR- Amer. >60 Normal [facility] Comment on above: Performed By: #### P T, MG1, PHOS, BMP ####[facility] [place], [place] [phone] eGFR-All Other Races >60 Normal [facility] Comment on above: Result Comment: eGFR [...] By: #### P T, MG1, PHOS BMP ####[facility] [place], [place] [phone] Glucose [Mass/Vol] 117 mg/dL High 74-99 [facility] Comment on above: Result Comment: The [place] Diabetes Association (ADA) provides guidance for cutoff [...] Standards of Medical Care in Diabetes 2016, [place] [employer] Association. Diabetes Care. 2016.39(Suppl 1). Performed By: #### P T, MG1, PHOS, BMP ####[facility] [address] [place], [place] [phone] Potassium [Moles/Vol] 4.2 mmol/L Normal 3.7-5.[address] [facility] Comment on above: Performed By: #### P T, MG1 PHOS, BMP ####[facility] [address] [place], [place] [phone] Sodium [Moles/Vol] 134 mmol/L Low 136-144 [facility] Comment on above: Performed By: #### P T, MG1, PHOS, BMP ####[facility] [address] [place], [place] [phone] Urea nitrogen [Mass/Vol] 21 mg/dL Normal 9-24 [facility] Comment on above: Performed By: #### P T, MG1, PHOS, BMP ####[facility] [address] [place], [place] [phone] CASE MANAGEMon 08-19-2020 CASE MANAGEM HNO ID: [id number] Author: Rosaline Keating, ALYSSA Service: Case Management Author Type: Registered Nurse Type: Care Mgt Progress Note Filed: 08/19/2020 10:15 AM Note Text: CARE MANAGEMENT PROGRESS NOTE SERVICE DATE: 08/19/2020 SERVICE TIME: 10:00 AM LOS: 7 days Admission Date: 08/12/2020 DISCHARGE ARRANGEMENT Discharge Arrangement: alf facility Was an expedited discharge program used?: No CAREGIVER ASSESSMENT: Caregiver is ready, willing and able to meet the patient's needs as recommended by the inter-professional team:: Yes Does the patient have an acute stroke diagnosis, or has the patient had a stroke during this admission?: No Patient's transition needs and plan for meeting these needs: SNF [facility] HANDOFF COMMUNICATION: Handoff to: Other Caregiver Other Caregiver Name/Phone: Cynthia Aguila CNP summary of care sent . [facility] [place] ([place] ) p# [phone] and via [employer] TRANSPORTATION ARRANGEMENTS: Transportation Arrangements: Car Discharge Information Row Name Admission (Current) from 08/12/2020 in [place] [address] Assisted Facility Agency [facility] Needs Prior to Discharge: Ready for Discharge Patient d/c ready to [facility] . Patient to transport via car with family/friend .Patient aware of plan. Bedside RN aware of plan and provided number to call report [phone] CM spoke with nursing program chair and updated on plan of care, confirmed facility ready for the patient arrival today p# [phone]. [phone] and DC instructions sent to [facility] via [employer] and are in DC packet. DC packet in chart to go with patient. SIGNATURE: Rosaline Keating RN PATIENT NAME: Shad Rodriguez DATE: August 19, 2020 TIME: 9:59 AM PAGER/CONTACT #: [phone] Normal [facility] Magnesiumon 08-19-2020 Magnesium [Mass/Vol] 2.1 mg/dL Normal 1.7-2.3 [facility] Comment on above: Performed By: #### P T, MG1, PHOS, BMP ####[facility] [address] [place], [place] [phone] Phosphoruson 08-19-2020 Phosphate [Mass/Vol] 3.4 mg/dL Normal 2.7-4.8 [facility] Comment on above: Performed By: #### P T, MG1, PHOS, BMP ####[facility] [address] [place], [place] [phone] Protimeon 08-19-2020 PT INR 1.2 Normal 0.9-1.3 [facility] Comment on above: Result Comment: Alexandra min K Antagonist (VKA) Therapeutic Range: INR 2 to 3 (Target INR of 2.5) Note: For patients treated with VKA drugs, such as warfarin, the [place] College of Chest Physicians 2012 Guideline recommends [...] Chest 2012, 141:7S-47S Apryl NEAL et al. [facility] 2017, 70: 252-289 Performed By: #### P T, MG1, PHOS, BMP ####[facility] [address] [phone] PT Sec 12.3 sec Normal 9.7-13.0 [facility] Comment on above: Performed By: #### P T, MG1, PHOS, BMP ####[address] [phone] Basic Metabolic Panlon 08-18 Anion gap [Moles/Vol] 9 mmol/L Normal 9-[address] [facility] Comment on above: Performed By: #### B MP, MG1, PHOS, CBC, PT ####[place] [phone] Calcium [Mass/Vol] 9.0 mg/dL Normal 8.5-10.2 [facility] Comment on above: Performed By: #### B MP, MG1, PHOS, CBC, PT ####[place] [phone] Chloride [Moles/Vol] 100 mmol/L Normal 97-105 [facility] Comment on above: Performed By: #### B MP, MG1, PHOS, CBC, PT ####[place] [phone] CO2 [Moles/Vol] 27 mmol/L Normal 22-30 [facility] Comment on above: Performed By: #### B MP, MG1, PHOS, CBC, PT ####[address] [phone] Creatinine [Mass/Vol] 1.10 mg/dL Normal 0.73-1.[address] [facility] Comment on above: Performed By: #### B MP, MG1, PHOS, CBC, PT ####[place] [phone] eGFR- Amer. >60 Normal [facility] Comment on above: Performed By: #### B MP, MG1, PHOS, CBC, PT ####[facility] [place], [place] [phone] eGFR-All Other Races >60 Normal [facility] Comment on above: Result Comment: eGFR [...] #### B MP, MG1, PHOS, CBC, PT ####[address] [phone] Glucose [Mass/Vol] 119 mg/dL High 74-99 [facility] Comment on above: Result Comment: The [place] Diabetes Association (ADA) provides guidance for cutoff [...] Standards of Medical Care in Diabetes 2016, [place] Diabetes Association. Diabetes Care. 2016.39(Suppl 1). Performed By: #### B MP, MG1, PHOS, CBC, PT ####[facility] [place], [place] [phone] Potassium [Moles/Vol] 4.0 mmol/L Normal 3.7-5.[address] [facility] Comment on above: Performed By: #### B MP, MG1, PHOS, CBC, PT ####[facility] [address] [place], [place] [phone] Sodium [Moles/Vol] 136 mmol/L Normal 136-144 [facility] Comment on above: Performed By: #### B MP, MG1, PHOS, CBC, PT ####[facility] [address] [place], [place] [phone] Urea nitrogen [Mass/Vol] 22 mg/dL Normal 9-24 [facility] Comment on above: Performed By: #### B MP, MG1, PHOS, CBC, PT ####[facility] [address] [place], [place] [phone] CASE MGT INIT ASSESon 2020 CASE MGT INIT [facility] HNO ID: [id number] Author: Rosaline Keating RN Service: Case Management Author Type: Registered Nurse Type: Care Mgt Initial Assessment Filed: 08/18/2020 3:53 PM Note Text: CARE MANAGEMENT PROGRESS NOTE SERVICE DATE: 08/18/2020 SERVICE TIME: 10:36 AM LOS: 6 days Needs Prior to Discharge: Discharge Transportation CM UPDATE Per Primary Team DC anticipated tomorrow Accepting SNF facility [facility] . CM sent updated clinicals via [employer]. CM spoke with [facility] in admitting who confirms they have bed available for patient to admit . requested 7000 to be completed , [facility] Nurse report number provided : [phone]. Ask for 200 gr nurse Patient request to transport with family/friends via car. Facility confirmed the patient can arrive via car. Patient transportation arranged for 10 AM tomorrow. SIGNATURE: Rosaline Keating RN PATIENT NAME: Shad Rodriguez DATE: August 18, 2020 TIME: 10:36 AM PAGER/CONTACT #: [phone] Normal [facility] CBCon 08-18-2020 Absolute nRBC <0.01 Normal <0.01 [facility] Comment on above: Performed By: #### B MP, MG1, PHOS, CBC, PT ####[facility] Ave[place]level[place] [phone] Erythrocyte distribution width (RBC) [Ratio] 13.5 % Normal 11.5-15.0 [facility] Comment on above: Performed By: #### B MP, MG1, PHOS, CBC, PT ####[place] [address] Ave[place]leveland[place] [phone] Hematocrit (Bld) [Volume fraction] 42.3 % Normal 39.0-51.0 [facility] Comment on above: Performed By: #### B MP, MG1, PHOS, CBC, PT ####[place] [address] [address]level[place] [place] [phone] Hemoglobin (Bld) [Mass/Vol] 13.5 g/dL Normal 13.0-17.0 [facility] Comment on above: Performed By: #### B MP, MG1, PHOS, CBC, PT ####[place] [address] [address]level[address] [place] [phone] MCH 28.3 pG Normal 26.0-34.0 [facility] Comment on above: Performed By: #### B MP, MG1, PHOS, CBC, PT ####[place] [address] [address]level[address] [place] [phone] MCHC (RBC) [Mass/Vol] 31.9 g/dL Normal 30.5-36.[address] [facility] Comment on above: Performed By: #### B MP, MG1, PHOS, CBC, PT ####[facility] [place] [phone] MCV (RBC) [Entitic vol] 88.7 fL Normal 80.0-100.0 [facility] Comment on above: Performed By: #### B MP, MG1, PHOS, CBC, PT ####[place] [address] Ave[place]levelA[place] [phone] Platelet mean volume (Bld) [Entitic vol] 10.2 fL Normal 9.0-12.7 [facility] Comment on above: Performed By: #### B MP, MG1, PHOS, CBC, PT ####[address] [phone] Platelets (Bld) [#/Vol] 219 10*3/uL Normal 150-400 [facility] Comment on above: Performed By: #### B MP, MG1, PHOS, CBC, PT ####[address] [phone] RBC (Bld) [#/Vol] 4.77 10*6/uL Normal 4.20-6.00 [facility] Comment on above: Performed By: #### B MP, MG1, PHOS, CBC, PT ####[address] [phone] WBC (Bld) [#/Vol] 6.07 10*3/uL Normal 3.70-11.00 [facility] Comment on above: Performed By: #### B MP, MG1, PHOS, CBC, PT ####[address] [phone] Magnesiumon 08-18-2020 Magnesium [Mass/Vol] 2.2 mg/dL Normal 1.7-2.3 [facility] Comment on above: Performed By: #### B MP, MG1, PHOS, CBC, PT ####[address] [phone] NUTRITIONon 08-18-2020 NUTRITION HNO ID: [id number] Author: Sandra Katz DTR Service: Nutrition Therapy Author Type: Spikemaking Supervisor Type: Nutrition Filed: 08/18/2020 1:49 PM Note Text: NUTRITION THERAPY CORPORATE SAFETY DIRECTOR NOTE SERVICE DATE: 08/18/2020 SERVICE TIME: 950 [...] August 18, 2020 TIME: 1:49 PM PAGER: [phone] Normal [facility] Phosphoruson 08-18-2020 Phosphate [Mass/Vol] 3.5 mg/dL Normal 2.7-4.8 [facility] Comment on above: Performed By: #### B MP, MG1, PHOS, CBC, PT ####[facility] [address] [place], [place] [phone] Protimeon 08-18-2020 PT INR 1.0 Normal 0.9-1.3 [facility] Comment on above: Result Comment: Alexandra min K Antagonist (VKA) Therapeutic Range: INR 2 to 3 (Target INR of 2.5) Note: For patients treated with VKA drugs, such as warfarin, the [place] College of Chest Physicians 2012 Guideline recommends [...] Chest 2012, 141:7S-47S Apryl RA, et al. [facility] 2017, 70: 252-289 Performed By: #### B MP, MG1, PHOS, CBC, PT ####[facility] [place], [place] [phone] PT Sec 11.2 sec Normal 9.7-13.0 [facility] Comment on above: Performed By: #### B MP, MG1, PHOS, CBC, PT ####[facility] [address] [place], [place] [phone] THERAPY NTon 08-18-2020 THERAPY NT HNO ID: [id number] Author: Greg Gonzalez, PT Service: Physical Therapy Author Type: Physical Therapist Type: Therapy (PT/OT/Speech/Resp) Filed: 08/18/2020 4:05 PM Note Text: Physical Therapy Treatment SERVICE DATE: 08/18/2020 SERVICE TIME: 1526 to 1549 ROOM: [place] [address] Recommended Discharge Disposition: Outpatient Physical Therapy Recommended [...] Bed/Bath: 0 Tub/Shower Type: walk-in Laundry: I WELDER AND FITTER Prior Functional Level: Within Functional Limits Prior [...] Diagnosis: Reduced mobility-other Interventions Provided: Therapeutic Activity (59990);Therapeutic Exercise (44416) Therapeutic Exercise (14650) Treatment Minutes: 10 $ Therapeutic Exercise (87413) Billed Units: 1 unit Therapeutic Activity (86190) Treatment Minutes: 13 $ Therapeutic Activity (18932) Billed Units: 1 unit Training AND education [...] August 18, 2020 TIME: 4:05 PM Normal [facility] Basic Metabolic Panlon 08-17 Anion gap [Moles/Vol] 10 mmol/L Normal 9-[address] [facility] Comment on above: Performed By: #### B MP, MG1, CBC, PHOS ####[facility] [address] [place], [place] [phone] Calcium [Mass/Vol] 9.0 mg/dL Normal 8.5-10.2 [facility] Comment on above: Performed By: #### B MP, MG1, CBC, PHOS ####[facility] [address] [place], [place] [phone] Chloride [Moles/Vol] 96 mmol/L Low 97-105 [facility] Comment on above: Performed By: #### B MP, MG1, CBC, PHOS ####[facility] [address] [place], [place] [phone] CO2 [Moles/Vol] 27 mmol/L Normal 22-30 [facility] Comment on above: Performed By: #### B MP, MG1, CBC, PHOS ####[facility] [address] [place], [place] [phone] Creatinine [Mass/Vol] 1.15 mg/dL Normal 0.73-1.[address] [facility] Comment on above: Performed By: #### B MP, MG1, CBC, PHOS ####[facility] [address] [place], [place] [phone] eGFR- Amer. >60 Normal [facility] Comment on above: Performed By: #### B MP, MG1, CBC, PHOS ####[facility] [address] [place], [place] [phone] eGFR-All Other Races >60 Normal [facility] Comment on above: Result Comment: eGFR [...] By: #### B MP, MG1, CBC, PHOS ####[facility] [address] [place], [place] [phone] Glucose [Mass/Vol] 134 mg/dL High 74-99 [facility] Comment on above: Result Comment: The [place] Diabetes Association (ADA) provides guidance for cutoff [...] Standards of Medical Care in Diabetes 2016, [place] Diabetes Association. Diabetes Care. 2016.39(Suppl 1). Performed By: #### B MP, MG1, CBC, PHOS ####[facility] [address] [place], [place] [phone] Potassium [Moles/Vol] 4.0 mmol/L Normal 3.7-5.[address] [facility] Comment on above: Performed By: #### B MP, MG1, CBC, PHOS ####[facility] [place], [place] [phone] Sodium [Moles/Vol] 133 mmol/L Low 136-144 [facility] Comment on above: Performed By: #### B MP, MG1, CBC, PHOS ####[place] [address] [place], [place] [phone] Urea nitrogen [Mass/Vol] 20 mg/dL Normal 9-24 [facility] Comment on above: Performed By: #### B MP, MG1, CBC, PHOS ####[address] [phone] CASE MGT INIT ASSESon 2020 CASE MGT INIT [facility] HNO ID: [id number] Author: Rosaline Keating RN Service: Case Management Author Type: Registered Nurse Type: Care Mgt Initial Assessment Filed: 08/17/2020 12:20 PM Note Text: CARE MANAGEMENT PROGRESS NOTE SERVICE DATE: 08/17/2020 SERVICE TIME: 12:17 PM LOS: 5 days Needs Prior to Discharge: Other: See Comment (medical janiya) CM UPDATE Accepting SNF [facility], [facility] , patient requested facility of choice. CM awaiting review of DIPSO. CM will continue to follow for DC planning. SIGNATURE: Rosaline Keating RN PATIENT NAME: Shad Rodriguez DATE: August 17, 2020 TIME: 12:16 PM PAGER/CONTACT #: [phone] Normal [facility] CBCon 08-17-2020 Absolute nRBC <0.01 Normal <0.01 [facility] Comment on above: Performed By: #### B MP, MG1, CBC, PHOS ####[facility] [address], [place] [phone] Erythrocyte distribution width (RBC) [Ratio] 13.7 % Normal 11.5-15.0 [facility] Comment on above: Performed By: #### B MP, MG1, CBC, PHOS ####[place] [address] [address], [place] [phone] Hematocrit (Bld) [Volume fraction] 40.9 % Normal 39.0-51.0 [facility] Comment on above: Performed By: #### B MP, MG1, CBC, PHOS ####[place] [address], [place] [phone] Hemoglobin (Bld) [Mass/Vol] 13.5 g/dL Normal 13.0-17.0 [facility] Comment on above: Performed By: #### B MP, MG1, CBC, PHOS ####[place] [address], [place] [phone] MCH 28.9 pG Normal 26.0-34.0 [facility] Comment on above: Performed By: #### B MP, MG1, CBC, PHOS ####[place] [address], [place] [phone] MCHC (RBC) [Mass/Vol] 33.0 g/dL Normal 30.5-36.[address] [facility] Comment on above: Performed By: #### B MP, MG1, CBC, PHOS ####[place] [address], [place] [phone] MCV (RBC) [Entitic vol] 87.6 fL Normal 80.0-100.0 [facility] Comment on above: Performed By: #### B MP, MG1, CBC, PHOS ####[place] [address], [place] [phone] Platelet mean volume (Bld) [Entitic vol] 10.5 fL Normal 9.0-12.7 [facility] Comment on above: Performed By: #### B MP, MG1, CBC, PHOS ####[address] [phone] Platelets (Bld) [#/Vol] 210 10*3/uL Normal 150-400 [facility] [facility] Comment on above: Performed By: #### B MP, MG1, CBC, PHOS ####[address] [phone] RBC (Bld) [#/Vol] 4.67 10*6/uL Normal 4.20-6.00 [facility] Comment on above: Performed By: #### B MP, MG1, CBC, PHOS ####[address] [phone] WBC (Bld) [#/Vol] 6.51 10*3/uL Normal 3.70-11.00 [facility] Comment on above: Performed By: #### B MP, MG1, CBC, PHOS ####[address] [phone] Magnesiumon 08-17-2020 Magnesium [Mass/Vol] 2.1 mg/dL Normal 1.7-2.3 [facility] Comment on above: Performed By: #### B MP, MG1, CBC, PHOS ####[address] [phone] NURSING PROGon 08-17-2020 NURSING PROG HNO ID: [id number] Author: Dahlia Doss RN Service: ? Author [...] note was completed by: Dahlia Doss Normal [facility] Phosphoruson 08-17-2020 Phosphate [Mass/Vol] 3.0 mg/dL Normal 2.7-4.8 [facility] Comment on above: Performed By: #### B MP, MG1, CBC, PHOS ####[address] [phone] Basic Metabolic Panlon 08-16 Anion gap [Moles/Vol] 11 mmol/L Normal 9-[address] [facility] Comment on above: Performed By: #### P HOS, CBC, MG1, BMP ####[facility] [place], [place] [phone] Calcium [Mass/Vol] 9.2 mg/dL Normal 8.5-10.2 [facility] Comment on above: Performed By: #### P HOS, CBC, MG1, BMP ####[facility] [place], [place] [phone] Chloride [Moles/Vol] 100 mmol/L Normal 97-105 [facility] Comment on above: Performed By: #### P HOS, CBC, MG1, BMP ####[place] [address] [place], [place] [phone] CO2 [Moles/Vol] 26 mmol/L Normal 22-30 [facility] Comment on above: Performed By: #### P HOS, CBC, MG1, BMP ####[facility] [place], [place] [phone] Creatinine [Mass/Vol] 1.02 mg/dL Normal 0.73-1.[address] [facility] Comment on above: Performed By: #### P HOS, CBC, MG1, BMP ####[facility] [place], [place] [phone] eGFR- Amer. >60 Normal [facility] Comment on above: Performed By: #### P HOS, CBC, MG1, BMP ####[facility] [place], [place] [phone] eGFR-All Other Races >60 Normal [facility] Comment on above: Result Comment: eGFR [...] By: #### P HOS, CBC, MG1, BMP ####[facility] [place], [place] [phone] Glucose [Mass/Vol] 126 mg/dL High 74-99 [facility] Comment on above: Result Comment: The [place] Diabetes Association (ADA) provides guidance for cutoff [...] Standards of Medical Care in Diabetes 2016, [place] [employer] Association. Diabetes Care. 2016.39(Suppl 1). Performed By: #### P HOS, CBC, MG1, BMP ####[facility] [address] [place], [place] [phone] Potassium [Moles/Vol] 4.4 mmol/L Normal 3.7-5.[address] [facility] Comment on above: Performed By: #### P HOS, CBC, MG1, BMP ####[facility] [place], [place] [phone] Sodium [Moles/Vol] 137 mmol/L Normal 136-144 [facility] Comment on above: Performed By: #### P HOS, CBC, MG1, BMP ####[facility] [place], [place] [phone] Urea nitrogen [Mass/Vol] 16 mg/dL Normal 9-24 [facility] Comment on above: Performed By: #### P HOS, CBC, MG1, BMP ####[facility] [address] [place], [place] [phone] CASE MGT INIT ANABELLA 2020 CASE MGT INIT ANABELLA HNO ID: [id number] Author: Rosaline Keating RN Service: Case Management Author Type: Registered Nurse Type: Care Mgt Initial Assessment Filed: 08/16/2020 5:34 PM Note Text: CARE MANAGEMENT: ASSESSMENT AND DISCHARGE PLAN SERVICE DATE: August 16, 2020 SERVICE TIME: 5:29 PM PRIMARY CARE PHYSICIAN: Cynthia Aguila CNP, GENERAL DISTILLERY WORKER ADMISSION STATUS: Inpatient Needs Prior to Discharge: Accepting Facility MEDICAL: MEDICARE A AND B Patient/Bath Tester Stated Goals: To improve my functional status Health Insurance: Medicare;Medical [facility] Health Issues Impacting Discharge Plan: Newly diagnosed;Chronic Newly Diagnosed: Ventral hernia Chronic: HX CKD, DB , CA Last Discharge Date: 07/25/16 Is this Within the Past 30 days? Last discharge within 30 days: No Advance Directive: Current Advance Directive: Health Care Power of Streets And Buildings Decorator In Chart: Yes Up To Date and [...] Enzo Hernandez ( brother , lives in [place], [place] ) [phone] Caregiver AssessmentCaregiver is ready, willing and able [...] Mostly I feel financially burdened by my [id number] expenses for my prescription medication:: 0 - Disagree Mostly Risk Score: 0 Patient is categorized as: Low risk < 2 Are you interested in bedside delivery of your medications? No Is Patient Psychosocially Complex?: No ASSESSMENT AND PLAN: Medical Needs: Medical Needs: Two or more chronic diseases Psychosocial Needs: Psychosocial Needs: None FREEDOM OF CHOICE EXPLAINED: [place] of Choice Given: Yes Level of Care Discussed: Assisted Facility Financial Disclosure Provided: Yes Financial Disclosure Comments: Patient Provider List: Assisted Facility Provider list within the patient's requested geographic area shared with the patient/family: Yes within: 25 miles of zip code: [address] Quality and resource use metrics shared with [...] 10 total. Patient request referral placed to [facility] , awaiting responses. CM will continue to follow for medical needs. The patient will be transported home at d/c by friends via private auto. SIGNATURE: Rosaline Keating RN PATIENT NAME: Shad Rodriguez DATE: August 16, 2020 TIME: 5:29 PM PAGER/CONTACT #: [phone] Normal [facility] CBCon 08-16-2020 Absolute nRBC <0.01 Normal <0.01 [facility] Comment on above: Performed By: #### P HOS, CBC, MG1, BMP ####[facility] [address] [place], [place] [phone] Erythrocyte distribution width (RBC) [Ratio] 14.0 % Normal 11.5-15.0 [facility] Comment on above: Performed By: #### P HOS, CBC, MG1, BMP ####[facility] [address] [place], [place] [phone] Hematocrit (Bld) [Volume fraction] 41.1 % Normal 39.0-51.0 [facility] Comment on above: Performed By: #### P HOS, CBC, MG1, BMP ####[facility] [address] [place], [place] [phone] Hemoglobin (Bld) [Mass/Vol] 13.5 g/dL Normal 13.0-17.0 [facility] Comment on above: Performed By: #### P HOS, CBC, MG1, BMP ####[place] [address] [place] [phone] MCH 28.8 pG Normal 26.0-34.0 [facility] Comment on above: Performed By: #### P HOS, CBC, MG1, BMP ####[place] [address] [place] [phone] MCHC (RBC) [Mass/Vol] 32.8 g/dL Normal 30.5-36.[address] [facility] Comment on above: Performed By: #### P HOS, CBC, MG1, BMP ####[place] [address] [place] [phone] MCV (RBC) [Entitic vol] 87.6 fL Normal 80.0-100.0 [facility] Comment on above: Performed By: #### P HOS, CBC, MG1, BMP ####[place] [address] [place] [phone] Platelet mean volume (Bld) [Entitic vol] 10.4 fL Normal 9.0-12.7 [facility] Comment on above: Performed By: #### P HOS, CBC, MG1, BMP ####[place] [address], [place] [phone] Platelets (Bld) [#/Vol] 195 10*3/uL Normal 150-400 [facility] Comment on above: Performed By: #### P HOS, CBC, MG1, BMP ####[place] [address], [place] [phone] RBC (Bld) [#/Vol] 4.69 10*6/uL Normal 4.20-6.00 [facility] Comment on above: Performed By: #### P HOS, CBC, MG1, BMP ####[place] [address] [place] [phone] WBC (Bld) [#/Vol] 5.55 10*3/uL Normal 3.70-11.00 [facility] Comment on above: Performed By: #### P HOS, CBC, MG1, BMP ####[facility] [address] [place], [place] [phone] CNDSon 08-16-2020 CNDS HNO ID: [id number] Author: Gaby Crowell APRN.GENERAL DISTILLERY WORKER Service: General Surgery Author Type: Nurse Practitioner [...] Care Management (more content not included)... Normal [facility] Magnesiumon 08-16-2020 Magnesium [Mass/Vol] 2.2 mg/dL Normal 1.7-2.3 [facility] Comment on above: Performed By: #### P HOS, CBC, MG1, BMP ####[facility] [address] [place], [place] [phone] NURSING PROGon 08-16-2020 NURSING PROG HNO ID: [id number] Author: Bee Gracia RN Service: ? Author [...] and blood glucose is 162. Gen. Surg assistant front end manager made aware and requested to come and see the patient. The following observation(s) were made: Patient is up in the chair. Will continue to monitor the patient. This note was completed by: Bee Gracia Normal [facility] Phosphoruson 08-16-2020 Phosphate [Mass/Vol] 3.4 mg/dL Normal 2.7-4.8 [facility] Comment on above: Performed By: #### P HOS, CBC, MG1, BMP ####[facility] [address] [place], [place] [phone] THERAPY NTon 08-16-2020 THERAPY NT HNO ID: [id number] Author: Ynes Sorto CCC/TEACHER OF THE DEAF/HARD OF HEARING Service: Speech/Swallow Author Type: Speech Language Pathologist Type: Therapy (PT/OT/Speech/Resp) Filed: 08/16/2020 12:06 PM Note Text: [facility] Speech Pathology Consult BEDSIDE SWALLOWING EVALUATION 08/16/2020 [...] with questions or concerns. Ynes Sorto M.A. [facility]3]-TEACHER OF THE DEAF/HARD OF HEARING Speech Language Pathology Cell/Pager: [phone] DIAGNOSIS/HISTORY (per HANDP): Shad Rodriguez is a [...] EXTRACTION DATE OF ADMISSION: 08/12/2020 CURRENT LOCATION: [place] [address] HEARING STATUS: Within functional limits BEHAVIORAL OBSERVATIONS: [...] served plain (more content not included)... Normal [facility] THERAPY NT HNO ID: [id number] Author: Alyse Henson OT/L Service: Occupational Therapy Author Type: Occupational Therapist Type: Therapy (PT/OT/Speech/Resp) Filed: 08/16/2020 10:32 AM Note Text: Occupational Therapy Treatment SERVICE DATE: 08/16/2020 SERVICE TIME: 0942 to 1019 ROOM: [place] [address] Recommended Discharge Disposition: Subacute/SNF Recommended Discharge Disposition [...] Bed/Bath: 0 Tub/Shower Type: walk-in Laundry: I WELDER AND FITTER Prior Functional Level: Within Functional Limits Prior [...] living (ADL (more content not included)... Normal [facility] Basic Metabolic Panlon 08-15 Anion gap [Moles/Vol] 12 mmol/L Normal 9-[address] [facility] Comment on above: Performed By: #### C BCDISol BMP ####[place] [address] [place], [place] [phone] Calcium [Mass/Vol] 9.2 mg/dL Normal 8.5-10.2 [facility] Comment on above: Performed By: #### C BCDIF, BMP ####[place] [address] [place], [place] [phone] Chloride [Moles/Vol] 98 mmol/L Normal 97-105 [facility] Comment on above: Performed By: #### C BCDIF, BMP ####[place] [address] [place], [place] [phone] CO2 [Moles/Vol] 25 mmol/L Normal 22-30 [facility] Comment on above: Performed By: #### C BCDIF, BMP ####[facility] [place], [place] [phone] Creatinine [Mass/Vol] 1.05 mg/dL Normal 0.73-1.[address] [facility] Comment on above: Performed By: #### C BCDIF, BMP ####[place] [address] [place], [place] [phone] eGFR- Amer. >60 Normal [facility] Comment on above: Performed By: #### C BCDIF, BMP ####[place] [address] [place], [place] [phone] eGFR-All Other Races >60 Normal [facility] Comment on above: Result Comment: eGFR [...] GFR. Performed By: #### C DONALDO BMP ####[address] [phone] Glucose [Mass/Vol] 132 mg/dL High 74-99 [facility] Comment on above: Result Comment: The [place] Diabetes Association (ADA) provides guidance for cutoff [...] Standards of Medical Care in Diabetes 2016, [place] Diabetes Association. Diabetes Care. 2016.39(Suppl 1). Performed By: #### C KOBI FULTON ####[place] [address] [place], [place] [phone] Potassium [Moles/Vol] 4.6 mmol/L Normal 3.7-5.[address] [facility] Comment on above: Performed By: #### C KOBI FULTON ####[address] [phone] Sodium [Moles/Vol] 135 mmol/L Low 136-144 [facility] Comment on above: Performed By: #### C BCGUSTAVO, BMP ####[address] [place], [place] [phone] Urea nitrogen [Mass/Vol] 17 mg/dL Normal 9-24 [facility] Comment on above: Performed By: #### C BCGUSTAVO, BMP ####[address] [place] [phone] CBC and Differentialon 08-15 Abs Baso 0.03 k/uL Normal <0.11 [facility] Comment on above: Performed By: #### C BCGUSTAVO, BMP ####[address] [place], [place] [phone] Abs Ross 0.79 k/uL Normal <0.87 [facility] Comment on above: Performed By: #### C BCJOHNF, BMP ####[address] [place] [phone] Abs Neut 6.67 k/uL Normal 1.45-7.50 [facility] Comment on above: Performed By: #### C BCJOHNF, BMP ####[address] [place], [place] [phone] Absolute nRBC <0.01 Normal <0.01 [facility] Comment on above: Performed By: #### C BCDIF, BMP ####[address] [place], [place] [phone] Basophils/100 WBC (Bld) 0.4 % Normal [facility] Comment on above: Performed By: #### C BCDIF, BMP ####[address] [place], [place] [phone] DTYPE Auto Diff Normal [facility] Comment on above: Performed By: #### C BCDIF, BMP ####[facility]level[address] [place], [place] [phone] Eosinophils (Bld) [#/Vol] 0.06 10*3/uL Normal <0.46 [facility] Comment on above: Performed By: #### C BCDIF, BMP ####[place] [address], [place] [phone] Eosinophils/100 WBC (Bld) 0.7 % Normal [facility] Comment on above: Performed By: #### C BCDIF, BMP ####[place] [address] [address] AveClevelA[address] [place] [phone] Erythrocyte distribution width (RBC) [Ratio] 13.9 % Normal 11.5-15.0 [facility] Comment on above: Performed By: #### C BCDIF, BMP ####[place] [address] AveClevelA[address] [place] [phone] Hematocrit (Bld) [Volume fraction] 42.6 % Normal 39.0-51.0 [facility] Comment on above: Performed By: #### C BCDIF, BMP ####[place] [address]level[address] [place], [place] [phone] Hemoglobin (Bld) [Mass/Vol] 14.2 g/dL Normal 13.0-17.0 [facility] Comment on above: Performed By: #### C BCDIF, BMP ####[place] [address] [address]levelA[address] [place] [phone] Lymphocytes (Bld) [#/Vol] 0.84 10*3/uL Low 1.00-4.00 [facility] Comment on above: Performed By: #### C BCDIF, BMP ####[place] [address]level[address] [place], [place] [phone] Lymphocytes/100 WBC (Bld) 10.0 % Normal [facility] Comment on above: Performed By: #### C BCDIF, BMP ####[place] [address], [place] [phone] MCH 29.2 pG Normal 26.0-34.0 [facility] Comment on above: Performed By: #### C BCDIF, BMP ####[place] [address] [address] [place] [phone] MCHC (RBC) [Mass/Vol] 33.3 g/dL Normal 30.5-36.[address] [facility] Comment on above: Performed By: #### C BCDIF, BMP ####[place] [address] [address] [place] [phone] MCV (RBC) [Entitic vol] 87.5 fL Normal 80.0-100.0 [facility] Comment on above: Performed By: #### C BCDIF, BMP ####[place] [address] [place] [phone] Monocytes/100 WBC (Bld) 9.4 % Normal [facility] Comment on above: Performed By: #### C BCDIF, BMP ####[place] [address] [address] [place] [phone] Neutrophils/100 WBC (Bld) 79.5 % Normal [facility] Comment on above: Performed By: #### C BCDIF, BMP ####[place] [address] [address] [place] [phone] NRBCs 0.0 /100 WBC Normal 0 [facility] Comment on above: Performed By: #### C BCDIF, BMP ####[place] [address] [address] [place] [phone] Platelet mean volume (Bld) [Entitic vol] 10.3 fL Normal 9.0-12.7 [facility] Comment on above: Performed By: #### C BCDIF, BMP ####[place] [address], [place] [phone] Platelets (Bld) [#/Vol] 197 10*3/uL Normal 150-400 [facility] Comment on above: Performed By: #### C BCDIF, BMP ####[facility] [place], [place] [phone] RBC (Bld) [#/Vol] 4.87 10*6/uL Normal 4.20-6.00 [facility] Comment on above: Performed By: #### C BCDIF, BMP ####[facility] [place], [place] [phone] WBC (Bld) [#/Vol] 8.39 10*3/uL Normal 3.70-11.00 [facility] Comment on above: Performed By: #### C BCDIF, BMP ####[facility] [place], [place] [phone] THERAPY NTon 08-15-2020 THERAPY NT HNO ID: [id number] Author: Fina Boyle, PT Service: Physical Therapy Author Type: Physical Therapist Type: Therapy (PT/OT/Speech/Resp) Filed: 08/15/2020 3:37 PM Note Text: Physical Therapy Treatment SERVICE DATE: 08/15/2020 SERVICE TIME: 1353 to 1418 ROOM: [place] [address] Recommended Discharge Disposition: Home PT Recommended Discharge [...] Bed/Bath: 0 Tub/Shower Type: walk-in Laundry: I WELDER AND FITTER Prior Functional Level: Within Functional Limits Prior [...] Diagnosis: Reduced mobility-other Interventions Provided: Therapeutic Activity (52777);Gait Training (25912) Therapeutic Activity (19435) Treatment Minutes: 10 $ Therapeutic Activity (49276) Billed Units: 1 unit Gait Training (00593) Treatment Minutes: 15 $ Gait Training (87767) Billed Units: 1 unit Training AND education [...] August 15, 2020 TIME: 3:37 PM Normal [facility] Basic Metabolic Panlon 08-14 Anion gap [Moles/Vol] 10 mmol/L Normal 9-[address] [facility] Comment on above: Performed By: #### C BCDIF, BMP, PHOS ####[address] [phone] Calcium [Mass/Vol] 9.3 mg/dL Normal 8.5-10.2 [facility] Comment on above: Performed By: #### C BCDIF, BMP, PHOS ####[place] [address] [place] [address] [phone] Chloride [Moles/Vol] 100 mmol/L Normal 97-105 [facility] Comment on above: Performed By: #### C BCDIF, BMP, PHOS ####[facility] [place] [address] [phone] CO2 [Moles/Vol] 27 mmol/L Normal 22-30 [facility] Comment on above: Performed By: #### C BCDIF, BMP, PHOS ####[facility] [place], [place] [phone] Creatinine [Mass/Vol] 1.15 mg/dL Normal 0.73-1.[address] [facility] Comment on above: Performed By: #### C BCDIF, BMP, PHOS ####[facility] [place], [place] [phone] eGFR- Amer. >60 Normal [facility] Comment on above: Performed By: #### C KOBI FULTON PHOS ####[facility] [place], [place] [phone] eGFR-All Other Races >60 Normal [facility] Comment on above: Result Comment: eGFR [...] Performed By: #### C KOBI FULTON PHOS ####[facility] [place], [place] [phone] Glucose [Mass/Vol] 148 mg/dL High 74-99 [facility] Comment on above: Result Comment: The [place] Diabetes Association (ADA) provides guidance for cutoff [...] Standards of Medical Care in Diabetes 2016, [place] [employer]. Diabetes Care. 2016.39(Suppl 1). Performed By: #### C KOBI FULTON PHOS ####[facility] [place], [place] [phone] Potassium [Moles/Vol] 4.3 mmol/L Normal 3.7-5.[address] [facility] Comment on above: Performed By: #### C BCDIF, BMP, PHOS ####[facility] [address] Ave[place], [place] [phone] Sodium [Moles/Vol] 137 mmol/L Normal 136-144 [facility] Comment on above: Performed By: #### C BCDIF, BMP, PHOS ####[facility]ClevelThree [place], [place] [phone] Urea nitrogen [Mass/Vol] 17 mg/dL Normal 9-24 [facility] Comment on above: Performed By: #### C BCDIF, BMP, PHOS ####[facility], [place] [phone] Anion gap [Moles/Vol] 7 mmol/L Low 9-[address] [facility] Comment on above: Performed By: #### M G1, BMP, PHOS, CBCDIF ####[facility] [place] [address], [place] [phone] Calcium [Mass/Vol] 9.2 mg/dL Normal 8.5-10.2 [facility] Comment on above: Performed By: #### M G1, BMP, PHOS, CBCDIF ####[facility] [place] [address], [place] [phone] Chloride [Moles/Vol] 100 mmol/L Normal 97-105 [facility] Comment on above: Performed By: #### M G1, BMP, PHOS, CBCDIF ####[facility], [place] [phone] CO2 [Moles/Vol] 30 mmol/L Normal 22-30 [facility] Comment on above: Performed By: #### M G1, BMP, PHOS, CBCDIF ####[facility]levelThree [place], [place] [phone] Creatinine [Mass/Vol] 1.13 mg/dL Normal 0.73-1.[address] [facility] Comment on above: Performed By: #### M G1, BMP, PHOS, CBCDIF ####[facility] [address] [place], [place] [phone] eGFR- Amer. >60 Normal [facility] Comment on above: Performed By: #### M G1, BMP, PHOS, CBCDIF ####[facility] [address] [place], [place] [phone] eGFR-All Other Races >60 Normal [facility] Comment on above: Result Comment: eGFR [...] By: #### M G1, BMP, PHOS, CBCDIF ####[facility] [address] [place], [place] [phone] Glucose [Mass/Vol] 131 mg/dL High 74-99 [facility] Comment on above: Result Comment: The [place] Diabetes Association (ADA) provides guidance for cutoff [...] Standards of Medical Care in Diabetes 2016, [place] [employer] Association. Diabetes Care. 2016.39(Suppl 1). Performed By: #### M G1, BMP, PHOS, CBCDIF ####[place] [address] [address], [place] [phone] Potassium [Moles/Vol] 4.4 mmol/L Normal 3.7-5.[address] [facility] Comment on above: Performed By: #### M G1, BMP, PHOS, CBCDIF ####[place] [address] [address] [phone] Sodium [Moles/Vol] 137 mmol/L Normal 136-144 [facility] Comment on above: Performed By: #### M G1, BMP, PHOS, CBCDIF ####[place] [address] [address] [place], [place] [phone] Urea nitrogen [Mass/Vol] 17 mg/dL Normal 9-24 [facility] Comment on above: Performed By: #### M G1, BMP, PHOS, CBCDIF ####[place] [address] [address], [place] [phone] CBC and Differentialon 08-14 Abs Baso <0.03 Normal <0.11 [facility] Comment on above: Performed By: #### C BCDIF, BMP, PHOS ####[address] [place], [place] [phone] Abs Eosin <0.03 Normal <0.46 [facility] Comment on above: Performed By: #### C BCDIF, BMP, PHOS ####[place] [address] [address], [place] [phone] Abs Ross 0.75 k/uL Normal <0.87 [facility] Comment on above: Performed By: #### C BCDIF, BMP, PHOS ####[place] [address] [address], [place] [phone] Abs Neut 7.52 k/uL High 1.45-7.50 [facility] Comment on above: Performed By: #### C BCDIF, BMP, PHOS ####[place] [address] [address]CA[address] [place] [phone] Absolute nRBC <0.01 Normal <0.01 [facility] Comment on above: Performed By: #### C BCDIF, BMP, PHOS ####[place] [address] [address] AveCA[address] [place] [phone] Basophils/100 WBC (Bld) 0.1 % Normal [facility] Comment on above: Performed By: #### C BCDIF, BMP, PHOS ####[place] [address] [address] AveCPaul [place]ille [phone] DTYPE Auto Diff Normal [facility] Comment on above: Performed By: #### C BCDIF, BMP, PHOS ####[place] [address] [address]CAmand[address] [place] [phone] Eosinophils/100 WBC (Bld) 0.2 % Normal [facility] Comment on above: Performed By: #### C BCDIF, BMP, PHOS ####[place] [address] [address]CP[address] [place] [phone] Erythrocyte distribution width (RBC) [Ratio] 14.0 % Normal 11.5-15.0 [facility] Comment on above: Performed By: #### C BCDIF, BMP, PHOS ####[place] [address] [address]CA[address] [place] [phone] Hematocrit (Bld) [Volume fraction] 41.8 % Normal 39.0-51.0 [facility] Comment on above: Performed By: #### C BCDIF, BMP, PHOS ####[place] [address] [address]CA[address] [place] [phone] Hemoglobin (Bld) [Mass/Vol] 13.8 g/dL Normal 13.0-17.0 [facility] Comment on above: Performed By: #### C BCDIF, BMP, PHOS ####[place] [address] [address]CO[address], [place] [phone] Lymphocytes (Bld) [#/Vol] 0.56 10*3/uL Low 1.00-4.00 [facility] Comment on above: Performed By: #### C BCDIF, BMP, PHOS ####[place] [address] [address]CO[address], [place] [phone] Lymphocytes/100 WBC (Bld) 6.3 % Normal [facility] Comment on above: Performed By: #### C BCDIF, BMP, PHOS ####[place] [address] [address]CA[address] [place] [phone] MCH 29.0 pG Normal 26.0-34.0 [facility] Comment on above: Performed By: #### C BCDIF BMP, PHOS ####[place] [address] [address]CA[address] [place] [phone] MCHC (RBC) [Mass/Vol] 33.0 g/dL Normal 30.5-36.[address] [facility] Comment on above: Performed By: #### C BCDIF, BMP, PHOS ####[place] [address] [address]CO[address], [place] [phone] MCV (RBC) [Entitic vol] 87.8 fL Normal 80.0-100.0 [facility] Comment on above: Performed By: #### C BCDIF, BMP, PHOS ####[place] [address] [address]CO[address], [place] [phone] Monocytes/100 WBC (Bld) 8.5 % Normal [facility] Comment on above: Performed By: #### C BCDIF, BMP, PHOS ####[place] [address] [address]ClevelThree [place], [place] [phone] Neutrophils/100 WBC (Bld) 84.9 % Normal [facility] Comment on above: Performed By: #### C BCDIF, BMP, PHOS ####[facility] [address] AveClevelThree [place], [place] [phone] NRBCs 0.0 /100 WBC Normal 0 [facility] Comment on above: Performed By: #### C BCDIF, BMP, PHOS ####[facility]ClevelThree [place], [place] [phone] Platelet mean volume (Bld) [Entitic vol] 10.1 fL Normal 9.0-12.7 [facility] Comment on above: Performed By: #### C BCDIF, BMP, PHOS ####[place] [address] [address]CA[address] [place] [phone] Platelets (Bld) [#/Vol] 184 10*3/uL Normal 150-400 [facility] Comment on above: Performed By: #### C BCDIF, BMP, PHOS ####[facility]CAmand[address] [place] [phone] RBC (Bld) [#/Vol] 4.76 10*6/uL Normal 4.20-6.00 [facility] Comment on above: Performed By: #### C BCDIF, BMP, PHOS ####[place] [address] [address]CO[address], [place] [phone] WBC (Bld) [#/Vol] 8.86 10*3/uL Normal 3.70-11.00 [facility] Comment on above: Performed By: #### C BCDIF, BMP, PHOS ####[facility]ClevelThree [place], [place] [phone] Abs Baso <0.03 Normal <0.11 [facility] Comment on above: Performed By: #### M G1, BMP, PHOS, CBCDIF ####[facility]ClevelThree [place], [place] [phone] Abs Eosin <0.03 Normal <0.46 [facility] Comment on above: Performed By: #### M G1, BMP, PHOS, CBCDIF ####[place] [address] [address]CA[address] [place] [phone] Abs Ross 0.73 k/uL Normal <0.87 [facility] Comment on above: Performed By: #### M G1, BMP, PHOS, CBCDIF ####[place] [address] [address]CA[address] [place] [phone] Abs Neut 6.19 k/uL Normal 1.45-7.50 [facility] Comment on above: Performed By: #### M G1, BMP, PHOS, CBCDIF ####[place] [address] [address]CA[address] [place] [phone] Absolute nRBC <0.01 Normal <0.01 [facility] Comment on above: Performed By: #### M G1, BMP, PHOS, CBCDIF ####[place] [address] [address]CA[address] [place] [phone] Basophils/100 WBC (Bld) 0.3 % Normal [facility] Comment on above: Performed By: #### M G1, BMP, PHOS, CBCDIF ####[place] [address] [address]CA[address] [place] [phone] DTYPE Auto Diff Normal [facility] Comment on above: Performed By: #### M G1, BMP, PHOS, CBCDIF ####[place] [address] [address]CA[address] [place] [phone] Eosinophils/100 WBC (Bld) 0.3 % Normal [facility] Comment on above: Performed By: #### M G1, BMP, PHOS, CBCDIF ####[place] [address] [address]CA[address] [place] [phone] Erythrocyte distribution width (RBC) [Ratio] 14.1 % Normal 11.5-15.0 [facility] Comment on above: Performed By: #### M G1, BMP, PHOS, CBCDIF ####[facility]ClevelThree [place], [place] [phone] Hematocrit (Bld) [Volume fraction] 41.3 % Normal 39.0-51.0 [facility] Comment on above: Performed By: #### M G1, BMP, PHOS, CBCDIF ####[facility]ClevelThree [place], [place] [phone] Hemoglobin (Bld) [Mass/Vol] 13.7 g/dL Normal 13.0-17.0 [facility] Comment on above: Performed By: #### M G1, BMP, PHOS, CBCDIF ####[place] [address] [address]CO[address], [place] [phone] Lymphocytes (Bld) [#/Vol] 0.80 10*3/uL Low 1.00-4.00 [facility] Comment on above: Performed By: #### M G1, BMP, PHOS, CBCDIF ####[place] [address] [address]CO[address], [place] [phone] Lymphocytes/100 WBC (Bld) 10.3 % Normal [facility] Comment on above: Performed By: #### M G1, BMP, PHOS, CBCDIF ####[place] [address] [address]CO[address], [place] [phone] MCH 29.0 pG Normal 26.0-34.0 [facility] Comment on above: Performed By: #### M G1, BMP, PHOS, CBCDIF ####[facility] AveClevelThree [place], [place] [phone] MCHC (RBC) [Mass/Vol] 33.2 g/dL Normal 30.5-36.[address] [facility] Comment on above: Performed By: #### M G1, BMP, PHOS, CBCDIF ####[place] [address] AveClevelandBet[place], [place] [phone] MCV (RBC) [Entitic vol] 87.3 fL Normal 80.0-100.0 [facility] Comment on above: Performed By: #### M G1, BMP, PHOS, CBCDIF ####[place] [address] [address]CO[address], [place] [phone] Monocytes/100 WBC (Bld) 9.4 % Normal [facility] Comment on above: Performed By: #### M G1, BMP, PHOS, CBCDIF ####[place] [address] [address]CA[address] [place] [phone] MPV Unable to report Normal 9.0-12.7 [facility] Comment on above: Performed By: #### M G1, BMP, PHOS, CBCDIF ####[place] [address] [address]CO[address], [place] [phone] Neutrophils/100 WBC (Bld) 79.7 % Normal [facility] Comment on above: Performed By: #### M G1, BMP, PHOS, CBCDIF ####[place] [address] [address]CA[address] [place] [phone] NRBCs 0.0 /100 WBC Normal 0 [facility] Comment on above: Performed By: #### M G1, BMP, PHOS, CBCDIF ####[place] [address] [address]CO[address], [place] [phone] Platelet Count Platelets Clumped, Estimate Normal Normal 150-400 [facility] Comment on above: Result Comment: Resu lt checked and verified No clot detected. Platelet count confirmed by manual review of peripheral blood smear. Performed By: #### M G1, BMP, PHOS, CBCDIF ####[place] [address] [address]CO[address], [place] [phone] RBC (Bld) [#/Vol] 4.73 10*6/uL Normal 4.20-6.00 [facility] Comment on above: Performed By: #### M G1, BMP, PHOS, CBCDIF ####[address] [phone] WBC (Bld) [#/Vol] 7.76 10*3/uL Normal 3.70-11.00 [facility] Comment on above: Performed By: #### M G1, BMP, PHOS, CBCDIF ####[place] [address] [address], [place] [phone] Magnesiumon 08-14-2020 Magnesium [Mass/Vol] 2.3 mg/dL Normal 1.7-2.3 [facility] Comment on above: Performed By: #### M G1 ####[address] [phone] Magnesium [Mass/Vol] 2.2 mg/dL Normal 1.7-2.3 [facility] Comment on above: Performed By: #### M G1, BMP, PHOS, CBCDIF ####[address] [phone] Phosphoruson 08-14-2020 Phosphate [Mass/Vol] 2.1 mg/dL Low 2.7-4.8 [facility] Comment on above: Performed By: #### C BCDIF, BMP, PHOS ####[address] [phone] Phosphate [Mass/Vol] 2.6 mg/dL Low 2.7-4.8 [facility] Comment on above: Performed By: #### M G1, BMP, PHOS, CBCDIF ####[facility] [place], [place] [phone] ANES Shanelle 08-13-2020 ANES POST HNO ID: [id number] Author: Tristan Orellana DO Service: Anesthesiology Author [...] 13, 2020 TIME: 2:11 PM PAGER/CONTACT #: [phone] Normal [facility] Basic Metabolic Panlon 08-13 Anion gap [Moles/Vol] 12 mmol/L Normal 9-[address] [facility] Comment on above: Performed By: #### C DONALDO PHOS, BMP ####[facility] [address] [place], [place] [phone] Calcium [Mass/Vol] 9.2 mg/dL Normal 8.5-10.2 [facility] Comment on above: Performed By: #### C BCDIF PHOS, BMP ####[facility]COak[place], [place] [phone] Chloride [Moles/Vol] 100 mmol/L Normal 97-105 [facility] Comment on above: Performed By: #### C MERNA FULTON, BMP ####[facility] AvTazew[place], [place] [phone] CO2 [Moles/Vol] 21 mmol/L Low 22-30 [facility] Comment on above: Performed By: #### C MERNA FULTON, BMP ####[place] [address] [address], [place] [phone] Creatinine [Mass/Vol] 1.20 mg/dL Normal 0.73-1.[address] [facility] Comment on above: Performed By: #### C MERNA FULTON, BMP ####[place] [address] [place], [place] [phone] eGFR- Amer. >60 Normal [facility] Comment on above: Performed By: #### C MERNA FULTON, BMP ####[place] [address] [address], [place] [phone] eGFR-All Other Races >60 Normal [facility] Comment on above: Result Comment: eGFR [...] Performed By: #### C BCMERNA CHEN, BMP ####[facility] AvTaz[place], [place] [phone] Glucose [Mass/Vol] 149 mg/dL High 74-99 [facility] Comment on above: Result Comment: The [place] Diabetes Association (ADA) provides guidance for cutoff [...] Standards of Medical Care in Diabetes 2016, [place] [employer]. Diabetes Care. 2016.39(Suppl 1). Performed By: #### C MERNA FULTON BMP ####[place] [address], [place] [phone] Potassium Unable to assay due to interference from hemolysis. Suggest reorder as clinically indicated. Normal 3.7-5.1 [facility] Comment on above: Result Comment: Call ed to and read back by: BLAKE SHAH [id number] 08/13/2020 [place] Performed By: #### C MERNA FULTON BMP ####[facility] [place], [place] [phone] Sodium [Moles/Vol] 133 mmol/L Low 136-144 [facility] Comment on above: Performed By: #### C MERNA FULTON BMP ####[facility] [place]id[place], [place] [phone] Urea nitrogen [Mass/Vol] 20 mg/dL Normal 9-24 [facility] Comment on above: Performed By: #### C MERNA FULTON BMP ####[facility] [place]idymT[place], [place] [phone] CBC and Differentialon 08-13 Abs Baso <0.03 Normal <0.11 [facility] Comment on above: Performed By: #### C MERNA FULTON BMP ####[facility]CO[address], [place] [phone] Abs Eosin <0.03 Normal <0.46 [facility] Comment on above: Performed By: #### C DONALDO PHOS, BMP ####[place] [address] [address]CO[place], [place] [phone] Abs Ross 0.96 k/uL High <0.87 [facility] Comment on above: Performed By: #### C TANIA FULTONS, BMP ####[place] [address] [address]CAmand[address] [place] [phone] Abs Neut 12.86 k/uL High 1.45-7.50 [facility] Comment on above: Performed By: #### C MERNA FULTON, BMP ####[place] [address] [address]CO[place], [place] [phone] Absolute nRBC <0.01 Normal <0.01 [facility] Comment on above: Performed By: #### C MERNA FULTON, BMP ####[place] [address] [address]CO[place], [place] [phone] Basophils/100 WBC (Bld) 0.1 % Normal [facility] Comment on above: Performed By: #### C TANIA FULTONS, BMP ####[place] [address] [address]CO[place], [place] [phone] DTYPE Auto Diff Normal [facility] Comment on above: Performed By: #### C DONALDO PHOS, BMP ####[place] [address] [address]CO[place], [place] [phone] Eosinophils/100 WBC (Bld) 0.0 % Normal [facility] Comment on above: Performed By: #### C DONALDO PHOS, BMP ####[place] [address] [address]CO[place], [place] [phone] Erythrocyte distribution width (RBC) [Ratio] 13.7 % Normal 11.5-15.0 [facility] Comment on above: Performed By: #### C MERNA FULTON, BMP ####[place] [address] [address]CA[address] [place] [phone] Hematocrit (Bld) [Volume fraction] 44.0 % Normal 39.0-51.0 [facility] Comment on above: Performed By: #### C MERNA FULTON, BMP ####[place] [address] [address]CA[address] [place] [phone] Hemoglobin (Bld) [Mass/Vol] 14.6 g/dL Normal 13.0-17.0 [facility] Comment on above: Performed By: #### C MERNA FULTON, BMP ####[place] [address] [address]Joseph [place] [phone] Lymphocytes (Bld) [#/Vol] 0.49 10*3/uL Low 1.00-4.00 [facility] Comment on above: Performed By: #### C MERNA FULTON, BMP ####[place] [address]Joseph [place] [phone] Lymphocytes/100 WBC (Bld) 3.4 % Normal [facility] Comment on above: Performed By: #### C MERNA FULTON, BMP ####[place] [address] [address] AvJoseph [place] [phone] MCH 29.2 pG Normal 26.0-34.0 [facility] Comment on above: Performed By: #### C BCGUSTAVO PHOS, BMP ####[place] [address] [address]CAmand[address] [place] [phone] MCHC (RBC) [Mass/Vol] 33.2 g/dL Normal 30.5-36.[address] [facility] Comment on above: Performed By: #### C BCGUSTAVO PHOS, BMP ####[place] [address]CA[address] [place] [phone] MCV (RBC) [Entitic vol] 88.0 fL Normal 80.0-100.0 [facility] Comment on above: Performed By: #### C TANIA FULTONS, BMP ####[facility] AveClevelandBet[place], [place] [phone] Monocytes/100 WBC (Bld) 6.7 % Normal [facility] Comment on above: Performed By: #### C BCGUSTAVO PHOS, BMP ####[place] [address] AveClevelandJo [place] [phone] Neutrophils/100 WBC (Bld) 89.8 % Normal [facility] Comment on above: Performed By: #### C TANIA FULTONS, BMP ####[place] [address] AveClevelThree [place], [place] [phone] NRBCs 0.0 /100 WBC Normal 0 [facility] Comment on above: Performed By: #### C MERNA FULTON, BMP ####[place] [address] AveClevelThree [place], [place] [phone] Platelet mean volume (Bld) [Entitic vol] 10.2 fL Normal 9.0-12.7 [facility] Comment on above: Performed By: #### C TANIA FULTONS, BMP ####[place] [address]ClevelandBet[place], [place] [phone] Platelets (Bld) [#/Vol] 200 10*3/uL Normal 150-400 [facility] Comment on above: Performed By: #### C DONALDO PHOS, BMP ####[place] [address]ClevelandBet[place], [place] [phone] RBC (Bld) [#/Vol] 5.00 10*6/uL Normal 4.20-6.00 [facility] Comment on above: Performed By: #### C DONALDO PHOS, BMP ####[address] [phone] WBC (Bld) [#/Vol] 14.32 10*3/uL High 3.70-11.00 [facility] Comment on above: Performed By: #### C DONALDO PHOS, BMP ####[address] [phone] Magnesiumon 08-13-2020 Magnesium [Mass/Vol] 2.0 mg/dL Normal 1.7-2.3 [facility] Comment on above: Performed By: #### M G1 ####[address] [phone] Phosphoruson 08-13-2020 Phosphate [Mass/Vol] 2.9 mg/dL Normal 2.7-4.8 [facility] Comment on above: Performed By: #### C DONALDO PHOS, BMP ####[address] [phone] Potassiumon 08-13-2020 Potassium [Moles/Vol] 4.7 mmol/L Normal 3.7-5.[address] [facility] Comment on above: Performed By: #### K 1 ####[address] [phone] THERAPY NTon 08-13-2020 THERAPY NT HNO ID: [id number] Author: Arlin Mantilla PT Service: Physical Therapy Author Type: Physical Therapist Type: Therapy (PT/OT/Speech/Resp) Filed: 08/13/2020 4:38 PM Note Text: Physical Therapy Evaluation SERVICE DATE: 08/13/2020 SERVICE TIME: 1550 to 1620 ROOM: [place] [address] Recommended Discharge Disposition: Subacute/SNF Recommended Discharge Disposition [...] Bed/Bath: 0 Tub/Shower Type: walk-in Laundry: I WELDER AND FITTER Prior Functional Level: Within Functional Limits Prior [...] Diagnosis: Reduced mobility-other Interventions Provided: Evaluation;Therapeutic Activity (41796);Gait Training (78098) $ Evaluation-Low (51091) Billed Units: 1 unit Therapeutic Activity (28973) Treatment Minutes: 5 $ Therapeutic Activity (23239) Billed Units: 0 units Gait Training (64356) Treatment Minutes: 10 $ Gait Training (61075) Billed Units: 1 unit Training AND education [...] evaluation/treatment. SIG (more content not included)... Normal [facility] THERAPY NT HNO ID: [id number] Author: Alyse Henson OT/L Service: Occupational Therapy Author Type: Occupational Therapist Type: Therapy (PT/OT/Speech/Resp) Filed: 08/13/2020 2:00 PM Note Text: Occupational Therapy Evaluation SERVICE DATE: 08/13/2020 SERVICE TIME: 1313 to 1347 ROOM: [place] [address] Recommended Discharge Disposition: Subacute/SNF Recommended Discharge Disposition [...] Bed/Bath: 0 Tub/Shower Type: walk-in Laundry: I WELDER AND FITTER Prior Functional Level: Within Functional Limits Prior Functional Level Comments: Pt reported was I with ADLs and IADLs WELDER AND FITTER. Pt reported has A to care for [...] Level Ad (more content not included)... Normal [facility] THERAPY NT HNO ID: [id number] Author: Alyse Henson OT/Roger Service: Occupational Therapy Author Type: Occupational Therapist Type: Therapy (PT/OT/Speech/Resp) Filed: 08/13/2020 10:51 AM Note Text: OCCUPATIONAL THERAPY MISSED VISIT SERVICE DATE: 08/13/2020 SERVICE TIME: 1048 to 1048 ROOM: [place] [address] Attempted Evaluation. Patient not seen due to Another service at bedside. PT at bedside. Will re-attempt as able. SIGNATURE: Alyse Henson OT/Roger PATIENT NAME: Shad Rodriguez DATE: August 13, 2020 TIME: 10:51 AM Normal [facility] NT HNO ID: [id number] Author: Arlin Mantilla PT Service: Physical Therapy Author Type: Physical Therapist Type: Therapy (PT/OT/Speech/Resp) Filed: 08/13/2020 10:49 AM Note Text: PHYSICAL THERAPY MISSED VISIT SERVICE DATE: 08/13/2020 SERVICE TIME: 1048 to 1048 ROOM: [place] [address] Attempted Evaluation. Patient not seen due to Declined. Pt requesting PT to reattempt after lunch. PT will reattempt as able and appropriate. SIGNATURE: Arlin Mantilla PT PATIENT NAME: Shad Rodriguez DATE: August 13, 2020 TIME: 10:49 AM Normal [facility] XR ABDOMEN 1V SUPINEon 08-13 XR ABDOMEN [...] bases are clear. IMPRESSION: No dilated bowel. Pantograph Ii Engraver: PSCB Transcribe Date/Time: Aug 13 2020 12:32P Dictated by : YRN ARROYO MD This examination was interpreted and the report reviewed and electronically signed by: YRN ARROYO MD on Aug 13 2020 12:33PM EST [id number] Normal [facility] ALLIED HEALTHon 08-12-2020 ALLIED HEALTH HNO ID: [id number] Author: Chaplain Stephanie Student Service: Spiritual Care Author Type: Student Type: Allied Health Filed: 08/12/2020 8:52 AM Note Text: SPIRITUAL CARE Spiritual Care Visit Record Name: Shad Rodriguez Date: August 12, 2020 Type of Visit: Preoperative Prayer/Visit Visit was with (pt, family, other) and name(s): patient. Ministry Provided During Visit: Prayer / Meditation Notes: Track Welder responded to a request for pre-surgery prayer. Pt appeared to be a good spirits, expressed optimism and gratitude about his surgery. Track Welder offered prayer and invited Pt to further utilize [facility] services in needed. Referrals: No referral made Will See: As Needed Only Follow-up Notes: Informed patient of Track Welder availability Track Welder Signature: Chaplain Stephanie Student To contact the Spiritual Care Department: Please call [phone] or Page the On-Call Track Welder at pager [phone] Thank you for the opportunity to be of service. This is an electronically created document. IF PRINTED, PLEASE DO NOT REMOVE FROM THE CHART OR MODIFY PRINTED COPY. Normal [facility] BRIEF OP NOTon 08-12-2020 BRIEF OP NOT HNO ID: [id number] Author: Cassius Gatica MD Service: General Surgery Author Type: Resident Type: Brief Op Note Filed: 08/12/2020 11:53 AM Note Text: BRIEF OP NOTE LOG ID: [id number] Surgery/Procedure Date: 08/12/2020 Incision/Procedure Start Time: 9:21 AM Incision Close/Procedure End Time: 11:36 AM Surgeon(s)/Procedurali st(s) and Remote Sensing Technologist(s): Surgeon(s) and Role: * Felicia Amaya MD [...] 12, 2020 TIME: 11:50 AM PAGER/CONTACT #: [phone] [facility] NURSING PROGon 07-02-2021 NURSING PROG HNO ID: [id number] Author: Alee Baxter RN Service: ? Author [...] This note was completed by: Alee Baxter [facility] OPERATIVE NOon 08-12-2020 OPERATIVE NO HNO ID: [id number] Author: Felicia Amaya MD Service: General Surgery Author Type: Physician Type: Operative Report Filed: 08/12/2020 2:55 PM Note Text: OPERATIVE REPORT NAME: Shad Rodirguez [facility] #: [id number] DATE: August 12, 2020 AGE: [age] year old SURGEON 1: Felicia Amaya MD SURGEON 2: MARKETING PLANNER 1: Adriel Gatica MD MARKETING PLANNER 2: OPERATION: 1. Open right myofascial advancement [...] ERAS Protocol: Yes Felicia Amaya MD Normal [facility] CBC and Differentialon 08-09 Abs Baso <0.03 Normal <0.11 [facility] Comment on above: Performed By: #### C MP, CBCDIF ####[facility] [address] AveClevelThree [place], [place] [phone] Abs Ross 0.45 k/uL Normal <0.87 [facility] Comment on above: Performed By: #### C MP, CBCDIF ####[facility]ClevelThree [place], [place] [phone] Abs Neut 3.89 k/uL Normal 1.45-7.50 [facility] Comment on above: Performed By: #### C MP, CBCDIF ####[facility] AveClevelAmy [place] [phone] Absolute nRBC <0.01 Normal <0.01 [facility] Comment on above: Performed By: #### C MP, CBCDIF ####[place] [address] AveClevelAmy [place] [phone] Basophils/100 WBC (Bld) 0.4 % Normal [facility] Comment on above: Performed By: #### C MP, CBCDIF ####[facility]ClevelAmy [place] [phone] DTYPE Auto Diff Normal [facility] Comment on above: Performed By: #### C MP, CBCDIF ####[facility] AveClevelAmy Ville [phone] Eosinophils (Bld) [#/Vol] 0.15 10*3/uL Normal <0.46 [facility] Comment on above: Performed By: #### C MP, CBCDIF ####[facility] AveClevelandJo [place] [phone] Eosinophils/100 WBC (Bld) 2.9 % Normal [facility] Comment on above: Performed By: #### C MP, CBCDIF ####[facility] W[address]wub[address]zyq[address] AveClevelAmy Ville [phone] Erythrocyte distribution width (RBC) [Ratio] 13.3 % Normal 11.5-15.0 [facility] Comment on above: Performed By: #### C MP, CBCDIF ####[place] [address]COak[place], [place] [phone] Hematocrit (Bld) [Volume fraction] 44.5 % Normal 39.0-51.0 [facility] Comment on above: Performed By: #### C MP, CBCDIF ####[place] [address]CO[address], [place] [phone] Hemoglobin (Bld) [Mass/Vol] 14.7 g/dL Normal 13.0-17.0 [facility] Comment on above: Performed By: #### C MP, CBCDIF ####[place] [address]CO[address], [place] [phone] Lymphocytes (Bld) [#/Vol] 0.68 10*3/uL Low 1.00-4.00 [facility] Comment on above: Performed By: #### C MP, CBCDIF ####[place] [address]CO[address], [place] [phone] Lymphocytes/100 WBC (Bld) 13.1 % Normal [facility] Comment on above: Performed By: #### C MP, CBCDIF ####[place] [address]CO[address], [place] [phone] MCH 28.7 pG Normal 26.0-34.0 [facility] Comment on above: Performed By: #### C MP, CBCDIF ####[facility]CO[address], [place] [phone] MCHC (RBC) [Mass/Vol] 33.0 g/dL Normal 30.5-36.[address] [facility] Comment on above: Performed By: #### C MP, CBCDIF ####[facility]CO[address], [place] [phone] MCV (RBC) [Entitic vol] 86.9 fL Normal 80.0-100.0 [facility] Comment on above: Performed By: #### C MP, CBCDIF ####[facility]COak[address], [place] [phone] Monocytes/100 WBC (Bld) 8.7 % Normal [facility] Comment on above: Performed By: #### C MP, CBCDIF ####[place] [address], [place] [phone] Neutrophils/100 WBC (Bld) 74.9 % Normal [facility] Comment on above: Performed By: #### C MP, CBCDIF ####[place] [address]CO[address], [place] [phone] NRBCs 0.0 /100 WBC Normal 0 [facility] Comment on above: Performed By: #### C MP, CBCDIF ####[place] [address]CO[address], [place] [phone] Platelet mean volume (Bld) [Entitic vol] 10.5 fL Normal 9.0-12.7 [facility] Comment on above: Performed By: #### C MP, CBCDIF ####[place] [address]CO[address], [place] [phone] Platelets (Bld) [#/Vol] 193 10*3/uL Normal 150-400 [facility] Comment on above: Performed By: #### C MP, CBCDIF ####[place] [address] AveClevelThree [place], [place] [phone] RBC (Bld) [#/Vol] 5.12 10*6/uL Normal 4.20-6.00 [facility] Comment on above: Performed By: #### C MP, CBCDIF ####[place] [address]CO[address], [place] [phone] WBC (Bld) [#/Vol] 5.19 10*3/uL Normal 3.70-11.00 [facility] Comment on above: Performed By: #### C MP, CBCDIF ####[facility] [address] [place], [place] [phone] CNNURSEon 08-09-2020 [facility] Nurse Visit (RAIZA) SHAD RODRIGUEZ ([id number]) 1950 M Date Time Provider Department 08/09/20 [...] Department: GENERAL SURGERY Referring Provider: FELICIA AMAYA [[id number]] Allergies As of Date: 08/09/2020 Noted Allergy [...] by LEDY JOHNS RN on 08/09/20 Normal [facility] Comp Metabolic Panelon 08-09 Albumin [Mass/Vol] 4.0 g/dL Normal 3.9-4.9 [facility] Comment on above: Performed By: #### C SEAMUS CBCDIF ####[facility] [address] [place], [place] [phone] ALP [Catalytic activity/Vol] 121 U/L High 38-113 [facility] Comment on above: Performed By: #### C SEAMUS CBCDIF ####[facility] [address] [place], [place] [phone] ALT [Catalytic activity/Vol] 57 U/L High 10-54 [facility] Comment on above: Performed By: #### C SEAMUS CBCDIF ####[facility] [address] [place], [place] [phone] Anion gap [Moles/Vol] 8 mmol/L Low 9-[address] [facility] Comment on above: Performed By: #### C MP, CBCDIF ####[facility]COak[place], [place] [phone] AST [Catalytic activity/Vol] 66 U/L High 14-40 [facility] Comment on above: Performed By: #### C MP, CBCDIF ####[place] [address] AvJoseph [place] [phone] Bilirubin [Mass/Vol] 0.5 mg/dL Normal 0.2-1.3 [facility] Comment on above: Performed By: #### C MP, CBCDIF ####[place] [address]CO[place], [place] [phone] Calcium [Mass/Vol] 9.5 mg/dL Normal 8.5-10.2 [facility] Comment on above: Performed By: #### C MP, CBCDIF ####[place] [address] AvJoseph [place] [phone] Chloride [Moles/Vol] 104 mmol/L Normal 97-105 [facility] Comment on above: Performed By: #### C MP, CBCDIF ####[place] [address]Joseph [place] [phone] CO2 [Moles/Vol] 26 mmol/L Normal 22-30 [facility] Comment on above: Performed By: #### C MP, CBCDIF ####[place] [address]CO[address], [place] [phone] Creatinine [Mass/Vol] 1.32 mg/dL High 0.73-1.[address] [facility] Comment on above: Performed By: #### C MP, CBCDIF ####[place] [address] AveCOakland, [place] [phone] eGFR- Amer. >60 Normal [facility] Comment on above: Performed By: #### C MP, CBCDIF ####[place] [address]CO[place], [place] [phone] eGFR-All Other Races 54 . Normal [facility] Comment on above: Result Comment: eGFR [...] GFR. Performed By: #### C SEAMUS, CBCDIF ####[facility], [place] [phone] Glucose [Mass/Vol] 122 mg/dL High 74-99 [facility] Comment on above: Result Comment: The [place] Diabetes Association (ADA) provides guidance for cutoff [...] Standards of Medical Care in Diabetes 2016, [place] Diabetes Association. Diabetes Care. 2016.39(Suppl 1). Performed By: #### C SEAMUS, CBCDIF ####[facility] [address] [place], [place] [phone] Potassium [Moles/Vol] 4.4 mmol/L Normal 3.7-5.[address] [facility] Comment on above: Performed By: #### C SEAMUS, CBCDIF ####[facility] [address] Glen[address], [place] [phone] Protein [Mass/Vol] 6.8 g/dL Normal 6.3-8.0 [facility] Comment on above: Performed By: #### C MP, CBCDIF ####[facility] [address] [place], [place] [phone] Sodium [Moles/Vol] 138 mmol/L Normal 136-144 [facility] Comment on above: Performed By: #### C MP, CBCDIF ####[facility] [address] [place], [place] [phone] Urea nitrogen [Mass/Vol] 20 mg/dL Normal 9-24 [facility] Comment on above: Performed By: #### C MP, CBCDIF ####[facility] [address] [place], [place] [phone] HISTORY PHYSICALon HISTORY PHYSICAL HNO ID: [id number] Author: Sterling Bhatia MD Service: ? Author Type: Resident Type: HANDP Filed: 08/09/2020 3:18 PM Note Text: HISTORY AND PHYSICAL EXAMINATION SERVICE DATE: 08/09/2020 SERVICE TIME: 1420 PRIMARY CARE PHYSICIAN: Cynthia Aguila CNP, GENERAL DISTILLERY WORKER REASON FOR VISIT: Shad Rodriguez is a [...] Yes Medication Comments documented by Lisa Childers DIAMOND SELECTOR on 01/11/2016 at 0856. Pt unsure of medication list. Pt did not bring pill bottles or medication list to appt 01/11/2016 CURRENT ALLERGIES: ALLERGIES Allergen Reactions - Penicillins Unknown - Ragweed Shortness of Breath REVIEW OF SYSTEMS: PAIN ASSESSMENT: General: No weight loss, malaise or fevers. Neuro: No history of TIA's, stroke, DENTAL ASSISTANT TEACHER tumor, impaired sensorium, hemiplegia, paraplegia or quadraplegia. [...] wall scraper (more content not included)... Normal [facility] PreOp/PreProc COVIDon 2020 SARS-CoV-2 (COVID-19) RNA KELLY+probe Ql (Unsp spec) UPPER RESPIRATORY TRACT SWAB Normal [facility] Comment on above: Performed By: #### P OCOVD ####[facility] WDJ[address] [place], [place] [address]GqeyultoqOhiohealth [facility] Hospital[address] [place], [place] [phone] SARS-CoV-2 (COVID-19) RNA KELLY+probe Ql (Unsp spec) Negative for COVID19 (SARS CoV2) by RT-PCR or equivalent method. Normal Negative for COVID19 (SARS CoV2) by RT-PCR or equivalent method. [facility] Comment on above: Result Comment: This test was developed and its performance characteristics determined by [facility]'s [facility] [place]. This test has been authorized by FDA under an Emergency Use Authorization (EUA). This test has been validated in accordance with the FDA's Guidance Document Policy for Diagnostics Testing in Laboratories Certified to Perform High Complexity Testing under CLIA prior to Emergency use Authorization for Coronavirus Disease 2019 during the Public Health Emergency issued on April 11, 2019. Test performed by [facility], [facility] [place], [address] [place] [address]. Performed By: #### P OCOVD ####[address] [phone] Type and SCR (30D)on 021 ABO/RH(D) AB POSTIVE Normal [facility] Comment on above: Performed By: #### T SCR30 ####[address] [phone] Urinalysison 08-09-2020 Bilirubin, Urine Negative Normal Negative [facility] Comment on above: Performed By: #### U A ####[address] [phone] Clarity (U) Clear Normal Clear [facility] Comment on above: Performed By: #### U A ####[address] [phone] Color (U) Yellow Normal Yellow [facility] Comment on above: Performed By: #### U A ####[address] [phone] Comments SEE COMMENT Normal [facility] Comment on above: Result Comment: Micr oscopic Examination Performed Performed By: #### U A ####[address] [phone] Glucose Ql (U) Negative Normal Negative [facility] Comment on above: Performed By: #### U A ####[place] [address]CA[address] [place] [phone] Hemoglobin/Blood,Ur 1+ Critically abnormal Negative [facility] Comment on above: Performed By: #### U A ####[place] [address]CA[address] [place] [phone] Ketones Ql (U) Negative Normal Negative [facility] Comment on above: Performed By: #### U A ####[place] [address]CA[address] [place] [phone] Leukest Negative Normal Negative [facility] Comment on above: Performed By: #### U A ####[place] [address] [place] [phone] Nitrite Ql (U) Negative Normal Negative [facility] Comment on above: Performed By: #### U A ####[place] [address]CAmand[address] [place] [phone] pH (U) 6.0 [pH] Normal 5.0-8.0 [facility] Comment on above: Performed By: #### U A ####[place] [address] [place] [phone] Protein, Urine Negative Normal Negative [facility] Comment on above: Performed By: #### U A ####[place] [address]CA[address] [place] [phone] RBC 0-3 Normal 0-3 [facility] Comment on above: Performed By: #### U A ####[place] [address]CO[place], [place] [phone] Specific [place], Ur 1.017 Normal 1.005-1.[address] [facility] Comment on above: Performed By: #### U A ####[place] [address]CA[address] [place] [phone] Urine Bao Comment SEE COMMENT Normal [facility] Comment on above: Result Comment: N/A Performed By: #### U A ####[facility] [place], [place] [phone] Urobilinogen Qn (U) {Ramona'U}/dL Critically abnormal Negative [facility] Comment on above: Performed By: #### U A ####[facility] [place], [place] [phone] WBC 0-5 Normal 0-5 [facility] Comment on above: Performed By: #### U A ####[facility] [place], [place] [phone] CNPNon 08-03-2020 CNPN Telephone (Herrera) SHAD RODRIGUEZ ([id number]) 1950 M Date Time Provider Department 08/03/20 [...] Fully Assessed Reason for Visit: Reminder Call [[id number]] Prescriptions as of 08/03/2020 Sig: AMLODIPINE 2.5 [...] Status:Closed by LEDY JOHNS RN on 08/03/20 [facility] 07-13-2020 CNPN Telephone (JounceHerrera) SHAD RODRIGUEZ ([id number]) 1950 M Date Time Provider Department 07/13/20 [...] Fully Assessed Reason for Visit: Reminder Call [[id number]] Prescriptions as of 07/13/2020 Sig: AMLODIPINE 2.5 [...] Status:Closed by LEDY JOHNS RN on 07/13/20 [facility] 06-28-2020 CNPN Telephone (Urban LadderN) SHAD RODRIGUEZ ([id number]) 1950 M Date Time Provider Department 06/28/20 [...] pre-op apt information, can also view via [employer], patient verbalized an understanding and agrees with [...] MD - Fully Assessed Reason for Visit: Java J2Ee Lead - Other [3602] Prescriptions as of 06/28/2020 [...] Encounter Status:Closed by YASIR ARIAS on 06/28/20 [facility] 06-28-2020 HOSP Patient:Courtney Rodriguez as A [...] understanding and all questions were addressed, Normal [facility] CNOVon 06-27-2020 CNOV Office Visit (RAIZA ) SHAD RODRIGUEZ ([id number]) 1950 M Date Time Provider Department 06/27/20 [...] meds, HTN, with PSHx of Lap LAR, INSIDE SALES LEAD, DLI 01/2016; DLI closure 07/2016. Planned for [...] No Mesh Fixation for Open Retromuscular Repairs MIMEOGRAPH OPERATOR: Sydney Hassan MD COORDINATOR/Research Nurse/Brass Pickler: Tiara Funes MD ? [email or web address] Consenting was performed by the attending surgeon, in a [id number] manner, during preoperative evaluation at the General [...] [] 2. The patient is fluent in Kittitian, has read the consent form and understood study procedures [x] [] 3. The patient is planned to undergo a ventral hernia r (more content not included)... Normal [facility] Progress Noteon 07-02-2019 Progress Note [facility] [place] [address] Progress Note Signed:[id number] Name: SHAD RODRIGUEZ MRUN: [id number] : 1950 Loc: 3S Age / Sex: 68/ M Adm Status: DIS Leonor Adm Date:06/03/19 Room/Bed: [facility] Date of Service 06/04/19 Subjective [...] (Auto) 12.8 % (24.0-44.0) L 06/05/19 05:34 Ross % (Auto) 7.5 % (1.7-9.3) 06/05/19 05:34 Eos % (Auto) 1.3 % (0.0-5.0) 06/05/19 05:34 Baso % (Auto) 0.3 % (0.0-1.0) 06/05/19 05:34 Neut # (Auto) 4.5 10 3/uL (1.5-6.7) 06/05/19 05:34 Lymph # (Auto) 0.7 10 3/uL (1.0-3.5) L 06/05/19 05:34 Ross # (Auto) 0.4 10 3/uL (0.2-0.8) 06/05/19 [...] [id number] CC: Fercho TORRES, Danii Pickett Normal [facility] CBC WITH AUTO DIFFon 020 Basophils (Bld) [#/Vol] 0.0 10 3/uL Normal 0.0-0.2 [facility] Comment on above: Performed By: #### P T #### [facility] - [address] [address] Basophils/100 WBC (Bld) 0.3 % Normal 0.0-1.0 [facility] Comment on above: Performed By: #### P T #### [facility] - [address] [address] Eosinophils (Bld) [#/Vol] 0.1 10 3/uL Normal 0.0-0.7 [facility] Comment on above: Performed By: #### P T #### [facility] - [address] [address] Eosinophils/100 WBC (Bld) 1.3 % Normal 0.0-5.0 [facility] Comment on above: Performed By: #### P T #### [facility] - [address] [address] Erythrocyte distribution width (RBC) [Ratio] 14.4 % High 11.5-14.0 [facility] Comment on above: Performed By: #### P T #### [facility] - [address] [address] Hematocrit (Bld) [Volume fraction] 39.2 % Normal 38.7-49.8 [facility] Comment on above: Performed By: #### P T #### [facility] - [address] [address] Hemoglobin (Bld) [Mass/Vol] 13.2 g/dL Normal 12.9-16.6 [facility] Comment on above: Performed By: #### P T #### [facility] - [address] [address] Lymphocytes (Bld) [#/Vol] 0.7 10 3/uL Low 1.0-3.5 [facility] Comment on above: Performed By: #### P T #### [facility] - [address] [address] Lymphocytes/100 WBC (Bld) 12.8 % Low 24.0-44.0 [facility] Comment on above: Performed By: #### P T #### [facility] - [address] [address] MCH (RBC) [Entitic mass] 28.9 pg Normal 27.0-31.0 [facility] Comment on above: Performed By: #### P T #### [facility] - [address] [address] MCHC (RBC) [Mass/Vol] 33.8 g/dL Normal 32.0-36.0 [facility] Comment on above: Performed By: #### P T #### [facility] - [address] [address] MCV (RBC) [Entitic vol] 85.5 fL Normal 78.0-100.0 [facility] Comment on above: Performed By: #### P T #### [facility] - [address] [address] Monocytes (Bld) [#/Vol] 0.4 10 3/uL Normal 0.2-0.8 [facility] Comment on above: Performed By: #### P T #### [facility] - [address] [address] Monocytes/100 WBC (Bld) 7.5 % Normal 1.7-9.3 [facility] Comment on above: Performed By: #### P T #### [facility] [place], [place] [address] Neutrophils (Bld) [#/Vol] 4.5 10 3/uL Normal 1.5-6.7 [facility] Comment on above: Performed By: #### P T #### [facility] [address] [place] [address] Neutrophils/100 WBC (Bld) 78.1 % High 36.0-66.0 [facility] Comment on above: Performed By: #### P T #### [facility] [address] [place] [address] Platelet mean volume (Bld) [Entitic vol] 7.9 fL Normal 6.0-9.5 [facility] Comment on above: Performed By: #### P T #### [facility] - [facility] [address] [place] [address] Platelets (Bld) [#/Vol] 180 10 3/uL Normal 150-450 [facility] Comment on above: Performed By: #### P T #### [facility] - [facility] [address] [place] [address] RBC (Bld) [#/Vol] 4.58 x10 6/uL Normal 4.38-5.71 [facility] Comment on above: Performed By: #### P T #### [facility] - [facility] [address] [place] [address] WBC (Bld) [#/Vol] 5.8 10 3/uL Normal 4.0-10.5 [facility] Comment on above: Performed By: #### P T #### Main Lab [facility] [address] [place] [address] COMPREHENSIVE METABOLIC PANE Sukhi 06-05-2019 Albumin [Mass/Vol] 3.1 g/dL Low 3.9-5.0 [facility] Comment on above: Performed By: #### P T #### Main Lab [facility] [address] [place] [address] Albumin/Globulin [Mass ratio] 1.2 {ratio} Normal 1.1-1.8 [facility] Comment on above: Performed By: #### P T #### [facility] [address] [place] [address] ALP [Catalytic activity/Vol] 84 U/L Normal 43-122 [facility] Comment on above: Performed By: #### P T #### Main Lab - [address] [address] ALT/SGPT 48 U/L Normal 7-56 [facility] Comment on above: Performed By: #### P T #### Main Lab - [address] [address] Anion gap [Moles/Vol] 8 mmol/L Low 9-18 [facility] Comment on above: Performed By: #### P T #### [facility] - [address] [address] AST/SGOT 26 U/L Normal 14-50 [facility] Comment on above: Performed By: #### P T #### [facility] - [address] [address] Bilirubin [Mass/Vol] 0.5 mg/dL Normal 0.2-1.3 [facility] Comment on above: Performed By: #### P T #### [facility] - [address] [address] Calcium [Mass/Vol] 8.5 mg/dL Normal 8.4-10.2 [facility] Comment on above: Performed By: #### P T #### [facility] - [address] [address] Chloride [Moles/Vol] 106 mmol/L Normal 98-107 [facility] Comment on above: Performed By: #### P T #### Main Lab - [address] [address] CO2 [Moles/Vol] 27 mmol/L Normal 22-31 [facility] Comment on above: Performed By: #### P T #### Main Lab - [address] [address] Creatinine [Mass/Vol] 1.30 mg/dL Normal 0.80-1.30 [facility] Comment on above: Performed By: #### P T #### [facility] - [address] [address] ESTIMATED CREAT CLEARANCE 52.26 Normal [facility] Comment on above: Result Comment: COCK CROFT-GAULT FORMULA 1972 Performed By: #### P T #### [facility] - [address] [address] ESTIMATED GLOMERULAR FILT RATE 55.000 mL/min Normal [facility] Comment on above: Performed By: #### P T #### [facility] - [address] [address] Globulin (S) [Mass/Vol] 2.6 g/dL Normal [facility] Comment on above: Performed By: #### P T #### [address] [address] Glucose [Mass/Vol] 108 mg/dL High 70-99 [facility] Comment on above: Result Comment: The glucose range is based on recommendations from the [place] [employer] for fasting blood glucose range. Performed By: #### P T #### [facility] - [address] [address] Potassium [Moles/Vol] 3.7 mmol/L Normal 3.6-5.0 [facility] Comment on above: Performed By: #### P T #### [address] [address] Protein [Mass/Vol] 5.7 g/dL Low 6.3-8.2 [facility] Comment on above: Performed By: #### P T #### [address] [address] Sodium [Moles/Vol] 137 mmol/L Normal 137-145 [facility] Comment on above: Performed By: #### P T #### [address] [address] Urea nitrogen [Mass/Vol] 15 mg/dL Normal 7-21 [facility] Comment on above: Performed By: #### P T #### [address] [address] Urea nitrogen/Creatinine [Mass ratio] 11.5 Ratio Normal 5.0-42.0 [facility] Comment on above: Performed By: #### P T #### [facility] - [address] [address] Age - Reported 68 Years Normal Damione rn [facility] Comment on above: Performed By: #### P T #### [facility] - [address] [address] PT WITH INRon 06-05-2019 INR Coag (PPP) [Relative time] 3.1 {INR} Normal [facility] Comment on above: Result Comment: ISAAK MMENDED RANGES FOR INR: Therapeutic range for standard therapy INR: 2.0-3.0 Therapeutic range for high dose therapy INR: 2.5-3.5 Performed By: #### P T #### [facility] - [address] [address] PT Coag (PPP) [Time] 32.2 s High 12.0-14.5 [facility] Comment on above: Performed By: #### P T #### [facility] - [place] [id number] URINE CULTUREon 06-05-2019 Bacteria identified Cx Nom (U) @06/03/19 1933: URINE CULT added. RFLXG = URINE CULT. @Source [place] [id number]. URINE CULTURE: NO GROWTH AT 48 HOURS Normal [facility] Comment on above: Performed By: #### P T #### [facility] - [address] [address] CBC WITH AUTO DIFFon 020 Basophils (Bld) [#/Vol] 0.0 10 3/uL Normal 0.0-0.2 [facility] Comment on above: Performed By: #### P T, CMP, CBC #### [facility] - [address] [address] Basophils/100 WBC (Bld) 0.2 % Normal 0.0-1.0 [facility] Comment on above: Performed By: #### P T, CMP, CBC #### [facility] - [address] [address] Eosinophils (Bld) [#/Vol] 0.0 10 3/uL Normal 0.0-0.7 [facility] Comment on above: Performed By: #### P T, CMP, CBC #### [facility] - [facility] [address] [place] [address] Eosinophils/100 WBC (Bld) 0.3 % Normal 0.0-5.0 [facility] Comment on above: Performed By: #### P T, CMP, CBC #### [facility] - [address] [address] Erythrocyte distribution width (RBC) [Ratio] 14.4 % High 11.5-14.0 [facility] Comment on above: Performed By: #### P T, CMP, CBC #### Main Lab - [address] [address] Hematocrit (Bld) [Volume fraction] 40.5 % Normal 38.7-49.8 [facility] Comment on above: Performed By: #### P T, CMP, CBC #### [facility] - [address] [address] Hemoglobin (Bld) [Mass/Vol] 13.9 g/dL Normal 12.9-16.6 [facility] Comment on above: Performed By: #### P T, CMP, CBC #### [facility] - [facility] [address] [place] [address] Lymphocytes (Bld) [#/Vol] 0.6 10 3/uL Low 1.0-3.5 [facility] Comment on above: Performed By: #### P T, CMP, CBC #### [facility] - [facility] [address] [place] [address] Lymphocytes/100 WBC (Bld) 8.3 % Low 24.0-44.0 [facility] Comment on above: Performed By: #### P T, CMP, CBC #### [facility] - [facility] [address] [place] [address] MCH (RBC) [Entitic mass] 29.2 pg Normal 27.0-31.0 [facility] Comment on above: Performed By: #### P T, CMP, CBC #### [facility] - [facility] [address] [place] [address] MCHC (RBC) [Mass/Vol] 34.2 g/dL Normal 32.0-36.0 [facility] Comment on above: Performed By: #### P T, CMP, CBC #### [facility] - [facility] [address] [place], [place] [address] MCV (RBC) [Entitic vol] 85.2 fL Normal 78.0-100.0 [facility] Comment on above: Performed By: #### P T, CMP, CBC #### [facility] - [facility] [address] [place] [address] Monocytes (Bld) [#/Vol] 0.4 10 3/uL Normal 0.2-0.8 [facility] Comment on above: Performed By: #### P T, CMP, CBC #### [facility] - [facility] [address] [place] [address] Monocytes/100 WBC (Bld) 5.4 % Normal 1.7-9.3 [facility] Comment on above: Performed By: #### P T, CMP, CBC #### [facility] - [facility] [address] [place] [address] Neutrophils (Bld) [#/Vol] 5.8 10 3/uL Normal 1.5-6.7 [facility] Comment on above: Performed By: #### P T, CMP, CBC #### [facility] - [address] [address] Neutrophils/100 WBC (Bld) 85.8 % High 36.0-66.0 [facility] Comment on above: Performed By: #### P T, CMP, CBC #### [facility] - [facility] [address] [place] [address] Platelet mean volume (Bld) [Entitic vol] 8.1 fL Normal 6.0-9.5 [facility] Comment on above: Performed By: #### P T, CMP, CBC #### [facility] - [facility] [address] [place] [address] Platelets (Bld) [#/Vol] 190 10 3/uL Normal 150-450 [facility] Comment on above: Performed By: #### P T, CMP, CBC #### [facility] - [facility] [address] [place] [address] RBC (Bld) [#/Vol] 4.75 x10 6/uL Normal 4.38-5.71 [facility] Comment on above: Performed By: #### P T, CMP, CBC #### [facility] - [facility] [address] [place] [address] WBC (Bld) [#/Vol] 6.7 10 3/uL Normal 4.0-10.5 [facility] Comment on above: Performed By: #### P T, CMP, CBC #### [facility] - [facility] [address] [place] [address] COMPREHENSIVE METABOLIC PANE Sukhi 06-04-2019 Albumin [Mass/Vol] 3.4 g/dL Low 3.9-5.0 [facility] Comment on above: Performed By: #### P T, CMP, CBC #### [facility] - [facility] [address] [place] [address] Albumin/Globulin [Mass ratio] 1.2 {ratio} Normal 1.1-1.8 [facility] Comment on above: Performed By: #### P T, CMP, CBC #### [facility] - [facility] [address] [place] [address] ALP [Catalytic activity/Vol] 92 U/L Normal 43-122 [facility] Comment on above: Performed By: #### P T, CMP, CBC #### [facility] - [facility] [address] [place] [address] ALT/SGPT 62 U/L High 7-56 [facility] Comment on above: Performed By: #### P T, CMP, CBC #### [facility] - [facility] [address] [place] [address] Anion gap [Moles/Vol] 8 mmol/L Low 9-18 [facility] Comment on above: Performed By: #### P T, CMP, CBC #### [facility] - [facility] [address] [place] [address] AST/SGOT 36 U/L Normal 14-50 [facility] Comment on above: Result Comment: Spec imen Slightly Hemolyzed. Performed By: #### P T, CMP, CBC #### [facility] - [facility] [address] [place] [address] Bilirubin [Mass/Vol] 0.5 mg/dL Normal 0.2-1.3 [facility] Comment on above: Performed By: #### P T, CMP, CBC #### Main [facility] - [facility] [address] [place], [place] [address] Calcium [Mass/Vol] 8.9 mg/dL Normal 8.4-10.2 [facility] Comment on above: Performed By: #### P T, CMP, CBC #### [facility] - [facility] [address] [place] [address] Chloride [Moles/Vol] 109 mmol/L High 98-107 [facility] Comment on above: Result Comment: Inco nsistent with previous results. Performed By: #### P T, CMP, CBC #### [facility] - [facility] [address] [place] [address] CO2 [Moles/Vol] 27 mmol/L Normal 22-31 [facility] Comment on above: Performed By: #### P T, CMP, CBC #### [facility] - [facility] [address] [place] [address] Creatinine [Mass/Vol] 1.28 mg/dL Normal 0.80-1.30 [facility] Comment on above: Performed By: #### P T, CMP, CBC #### [facility] - [facility] [address] [place] [address] ESTIMATED CREAT CLEARANCE 53.08 [facility] Comment on above: Result Comment: COCK CROFT-GAULT FORMULA 1972 Performed By: #### P T, CMP, CBC #### [facility] - [facility] [place], [place] [address] ESTIMATED GLOMERULAR FILT RATE 56.000 mL/min [facility] Comment on above: Performed By: #### P T, CMP, CBC #### [facility] - [facility] [place], [place] [address] Globulin (S) [Mass/Vol] 2.9 g/dL [facility] Comment on above: Performed By: #### P T, CMP, CBC #### [facility] - [facility] [address] [place], [place] [address] Glucose [Mass/Vol] 165 mg/dL High 70-99 [facility] Comment on above: Result Comment: The glucose range is based on recommendations from the [place] [employer] for fasting blood glucose range. Performed By: #### P T, CMP, CBC #### [facility] - [facility] [address] [place], [place] [address] Potassium [Moles/Vol] 3.7 mmol/L Normal 3.6-5.0 [facility] Comment on above: Result Comment: Spec imen Slightly Hemolyzed. Performed By: #### P T, CMP, CBC #### [facility] - [facility] [address] [place], [place] [address] Protein [Mass/Vol] 6.3 g/dL Normal 6.3-8.2 [facility] Comment on above: Performed By: #### P T, CMP, CBC #### [facility] [address] [place], [place] [address] Sodium [Moles/Vol] 140 mmol/L Normal 137-145 [facility] Comment on above: Performed By: #### P T, CMP, CBC #### [facility] [address] [place], [place] [address] Urea nitrogen [Mass/Vol] 17 mg/dL Normal 7-21 [facility] Comment on above: Performed By: #### P T, CMP, CBC #### [facility] [address] [place], [place] [address] Urea nitrogen/Creatinine [Mass ratio] 13.3 Ratio Normal 5.0-42.0 [facility] Comment on above: Performed By: #### P T, CMP, CBC #### [facility] - [facility] [address] [place], [place] [address] Age - Reported 68 Years Normal [facility] Comment on above: Performed By: #### P T, CMP, CBC #### [facility] - [facility] [address] [place], [place] [address] CREATINE KINASE MBon 020 CK.MB [Mass/Vol] 4.0 ng/mL High 0.0-3.7 [facility] Comment on above: Performed By: #### C KMB 1 #### [facility] - [facility] [address] [place], [place] [address] CK.MB [Mass/Vol] 3.8 ng/mL High 0.0-3.7 [facility] Comment on above: Performed By: #### C KMB 1 #### Main [facility] - [facility] [address] [place], [place] [address] CK.MB [Mass/Vol] 4.4 ng/mL High 0.0-3.7 [facility] Comment on above: Performed By: #### P T #### [facility] - [facility] [address] [place] [address] ABDOMEN PELVIS W/Oon 05-13 CT ABDOMEN PELVIS W/O [facility] [address] [address] Diagnostic Imaging Report : [id number] Signed Name: SHAD RODRIGUEZ MRUN: [id number] : 1950 Loc: 3S Age / Sex: 68 / M ADM Status: ADM Leonor ADM Date: 06/03/19 Room/Bed: [facility] Ordering Physician: Vick ENCISO Usrees Procedure: CT ABDOMEN PELVIS W/O Order Number(s): [id number] Ordered Date: 06/04/19 Ordered Time: 0006 EXAMINATION: [...] Signed Date/Time: 06/04/19225 Transcribed Date/Time: 06/04/19221 Normal [facility] DRUG SCREEN,URINEon 06-04-19 AMPHETAMINE SCREEN,URINE Negative Normal NEGATIVE [facility] Comment on above: Order Comment: @ COL L DATE was changed from 06/03/19 to 06/04/19 @ by [id number]. Old specimen was [id number]. Result Comment: Nega tive cut-off concentration <1000 ng/mL Performed By: #### U DS #### Main Lab - [facility] [address] [place] [address] BARBITURATE SCREEN, URINE Negative Normal NEGATIVE [facility] Comment on above: Order Comment: @ COL L DATE was changed from 06/03/19 to 06/04/19 @ by [id number]. Old specimen was [id number]. Result Comment: Nega tive cut-off concentration <200 ng/mL Performed By: #### U DS #### [facility] - [facility] [address] [place] [address] BENZODIAZEPINES SCREEN,URINE Negative Normal NEGATIVE [facility] Comment on above: Order Comment: @ COL L DATE was changed from 06/03/19 to 06/04/19 @ by [id number]. Old specimen was [id number]. Result Comment: Nega tive cut-off concentration <200 ng/mL Performed By: #### U DS #### Main Lab - [facility] [place] [id number] BUPRENORPHINE SCREEN,URINE Negative Normal NEGATIVE [facility] Comment on above: Order Comment: @ COL L DATE was changed from 06/03/19 to 06/04/19 @ by [id number]. Old specimen was [id number]. Result Comment: Nega tive cut-off concentration <10 ng/mL Performed By: #### U DS #### [facility] [place] [address]6073 CANNABINOID SCREEN,URINE Negative Normal NEGATIVE [facility] Comment on above: Order Comment: @ COL L DATE was changed from 06/03/19 to 06/04/19 @ by [id number]. Old specimen was [id number]. Result Comment: Nega tive cut-off concentration <50 ng/mL Performed By: #### U DS #### Main Lab - [place] [id number] COCAINE SCREEN,URINE Negative Normal NEGATIVE [facility] Comment on above: Order Comment: @ COL L DATE was changed from 06/03/19 to 06/04/19 @ by [id number]. Old specimen was [id number]. Result Comment: Nega tive cut-off concentration <300 ng/mL Performed By: #### U DS #### Main Lab - [place] 8065673 METHADONE SCREEN,URINE Negative Normal NEGATIVE [facility] Comment on above: Order Comment: @ COL L DATE was changed from 06/03/19 to 06/04/19 @ by [id number]. Old specimen was [id number]. Result Comment: Nega tive cut-off concentration <300 ng/mL Performed By: #### U DS #### [facility] - [place] [id number] OPIATE SCREEN,URINE Negative Normal NEGATIVE [facility] Comment on above: Order Comment: @ COL L DATE was changed from 06/03/19 to 06/04/19 @ by [id number]. Old specimen was [id number]. Result Comment: Nega tive cut-off concentration <300 ng/mL Performed By: #### U DS #### Main Lab - [place] [address]65673 OXYCODONE SCREEN,URINE Negative Normal NEGATIVE [facility] Comment on above: Order Comment: @ COL L DATE was changed from 06/03/19 to 06/04/19 @ by [id number]. Old specimen was [id number]. Result Comment: Nega tive cut-off concentration <300 ng/mL Performed By: #### U DS #### [facility] - [facility] [address] [place], [place] [address] PHENCYCLIDINE SCREEN,URINE Negative Normal NEGATIVE [facility] Comment on above: Order Comment: @ COL L DATE was changed from 06/03/19 to 06/04/19 @ by [id number]. Old specimen was [id number]. Result Comment: Nega tive cut-off concentration <25 ng/mL Performed By: #### U DS #### Main Lab - [facility] [place], [place] [address] NITRITE,URINE Negative Normal NEGATIVE [facility] Comment on above: Order Comment: @ COL L DATE was changed from 06/03/19 to 06/04/19 @ by [id number]. Old specimen was [id number]. Performed By: #### U DS #### [facility] - [facility] [place], [place] [address] pH (U) 6.0 [pH] Normal 5.0-8.0 [facility] Comment on above: Order Comment: @ COL L DATE was changed from 06/03/19 to 06/04/19 @ by [id number]. Old specimen was [id number]. Performed By: #### U DS #### [facility] - [facility] [address] [place] [address] SPECIFIC GRAVITY,URINE 1.027 SP.GR. Normal <1.029 [facility] Comment on above: Order Comment: @ COL L DATE was changed from 06/03/19 to 06/04/19 @ by [id number]. Old specimen was [id number]. Performed By: #### U DS #### [facility] - [facility] [address] [place] [address] ECHOCARDIOGRAM COMPLETEon ECHOCARDIOGRAM COMPLETE [facility] [address] [place] [address] Cardiovascular Imaging Report : [id number] Signed Name: SHAD RODRIGUEZ MRUN: [id number] : 1950 Loc: 3S Age / Sex: 68 / M ADM Status: ADM Leonor ADM Date: 06/03/19 Room/Bed: [facility] Ordering Physician: Vick ENCISO, [facility] Procedure: ECHOCARDIOGRAM COMPLETE Order Number(s): [id number] Ordered Date: 06/04/19 Ordered Time: 0700 SEOSYNCVPROD [id number] Transthoracic Echo Report Ht (in): 67 Wt [...] 4.4 cm RV Mid 3.7 cm RV [place] to Base 8.6 cm Ascending Aorta Diameter 3.2 cm M-MODE Aortic Root Diameter MM 3.6 cm LA Systolic Diameter MM 4.2 cm LA Ao Ratio MM 1.2 DOPPLER AV Peak Velocity 1.3 m/s AV Peak Gradient 6.6 mmHg LVOT Peak Velocity 0.8 m/s LVOT Peak Gradient 2.5 mmHg LVOT Mean Gradient 1.3 mmHg LVOT Velocity Time Integral 16.7 cm MV Deceleration [place] 1.3 m/s? MV Pressure Half Time 83.2 [...] 06/04/19 1132 Transcribed Date/Time: 06/04/19 0947 Normal [facility] History & Physicalon 020 History & Physical [address] [place] [address] History Physical Signed with Addenda:[id number] Name: SHAD RODRIGUEZ MRUN: [id number] : 1950 Loc: 3S Age / Sex: 68/ M Adm Status: ADM Leonor Adm Date:06/03/19 Room/Bed: 317-01 ADDENDUM---- ------ Bilateral lower extremities have chronic venous stasis changes and trace edema, small open wound on right leg. 06/04/19 0048 CC: Vick ENCISO, [facility] Date of Service 06/03/19 History of Present Illness Information source:: Patient Chief Complaint: I passed out This is a pleasant 68-year-old male with a history of diabetes mellitus and colon cancer was brought into the emergency room by the certified industrial hygienist for further evaluation and management of a syncopal event. Patient was in his usual state of health until this afternoon. 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 He was taking the exit to get to the Highway around 4:30 PM after exchanging the trailer with his colleague. He felt like his truck is spinning around. The next thing he knew was certified industrial hygienist were knocking on the door. He was found slumped over on the steering wheel. He did not experience any chest pain, palpitations, focal weakness, vision changes or diaphoresis prior to the episode. No prior similar symptoms. No reports of seizure-like activity. No reports of bladder or bowel incontinence. No history of [place], CVA or seizures. He had his breakfast [...] (Auto) 12.0 % (24.0-44.0) L 06/03/19 17:36 Ross %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 [facility] Start: 12-02-2022 Evaluation and management of inpatient ADRIANA [facility] Start: 12-02-2022 Evaluation and management of inpatient ADRIANA SANTOS [facility] Start: 12-01-2022 Evaluation and management of inpatient ADRIANA SANTOS [facility] Start: 12-01-2022 Evaluation and management of inpatient ADRIANA SANTOS [facility] Start: 11-30-2022 Evaluation and management of inpatient ADRIANA SANTOS [facility] Start: 11-30-2022 Evaluation and management of inpatient HAYLEY MATILDE [facility] Start: 11-26-2022 Evaluation and management of inpatient JESUS [facility] Start: 11-26-2022 Evaluation and management of inpatient MERCEDES RHODESARZ [facility] Start: 11-25-2022 Evaluation and management of inpatient JESUS [facility] Start: 11-25-2022 End: 12-05-2022 Evaluation and management of inpatient JESUS [facility] Start: 11-25-2022 End: 11-25-2022 Emergency department patient visit MARTIN STINSON [facility] Start: 07-27-2022 End: 07-28-2022 ambulatory Domingo DE LA ROSA Facility:[facility] Start: 06-27-2022 End: 06-28-2022 ambulatory Dougie Harmon Facility:[facility] Start: 06-27-2022 End: 06-28-2022 ambulatory Yusra Denis Facility[facility] Start: 06-27-2022 End: 06-28-2022 ambulatory Yusra Denis Facility:[facility] Start: 06-15-2022 End: 06-16-2022 ambulatory Yusra Denis [facility] Start: 06-15-2022 End: 06-15-2022 Patient encounter procedure Yusra Denis [facility] Start: 05-17-2022 End: 05-18-2022 ambulatory Yusra Denis [facility] Start: 05-17-2022 End: 05-17-2022 Patient encounter procedure Yusra Denis [facility] Start: 02-28-2022 End: 01-01-2023 ambulatory Aggie Lynn Facility:[facility] Start: 02-28-2022 End: 12-31-2022 Recurring Aggie Lynn [facility] Start: 12-28-2021 End: 12-28-2021 Patient encounter procedure Dougie Wilsonevettediane [facility] Start: 12-27-2021 End: 12-27-2021 Patient encounter procedure Dougieanna Wilsonevettediane [facility] Start: 12-22-[address] SHAD DYSON Facility : Start: 12-14-2021 End: 12-14-[address] SHAD DYSON Facility:[facility] Start: 11-16-2021 End: 11-16-2021 Patient encounter procedure Yusra Henrymetz [facility] Start: 10-05-2021 End: 10-05-2021 Patient encounter procedure Thais HINOJOSA [facility] Start: 07-19-2021 End: 07-19-2021 Patient encounter procedure Yusra Denis [facility] Start: 06-23-2021 End: 06-23-2021 Patient encounter procedure Dougie Harmon [facility] Start: 06-14-2021 End: 06-14-2021 Patient encounter procedure Dougie Wilsonevettediane [facility] Start: 02-14-2021 End: 02-26-2022 Recurring Aggie Lynn [facility] Start: 01-20-2018 Patient encounter procedure DOMINGO COLLINS [facility] Procedures Date Procedure Procedure Detail Performing Clinician Start: 01-23-2023 Follow-up visit ADRIANA KIRKLAND Start: 01-08-2023 Follow-up visit ADRIANA KIRKLAND Start: 12-26-2022 Follow-up visit ADRIANA KIRKLAND Start: 10-05-2021 Colonoscopy Thais HINOJOSA Start: 08-09-2020 Antibody screen Comment on above: Performed By: #### [id number] ####[facility] [place], [place] [phone] Start: 03-02-2017 Colonoscopy Yusra Denis colostomy reversal Dougie rousseau Esophagogastroduoden oscopy gastric outlet reduction Yusra Denis Immunizations Immunization Date Immunization Notes Care Provider Fa [facility] 01-15-2022 influenza virus vaccine, unspecified formulation Yusra Denis [facility] 01-15-2022 zoster vaccine recombinant Yusra Cira [facility] 01-11-2021 influenza, unspecifi ed formulation Yusra Denis [facility] 07-22-2020 SARS-CoV-2 (COVID-19 ) mRNA BNT-162b2 vax Yusramanuel HenryCira [facility] Comment on above: Result Comment: 2021: [id number] 06-30-2020 SARS-CoV-2 (COVID-19 ) mRNA BNT-162b2 vax Yusramanuel HenryCira [facility] Comment on above: Result Comment: 2021: TPV606-27-2020 tetanus and diphther ia toxoids, adsorbed, preservative free, for adult use (2 Lf of tetanus toxoid and 2 Lf of diphtheria toxoid) Yusra Denis [facility] 11-14-2019 influenza virus vaccine, unspecified formulation Yusra Denis [facility] 10-31-2018 influenza virus vaccine, unspecified formulation Yusra Denis [facility] 10-31-2018 pneumococcal polysaccharide vaccine, 23 valent Yusra Denis [facility] 10-22-2017 influenza virus vaccine, unspecified formulation Yusra Denis [facility] 10-22-2017 pneumococcal conjuga te vaccine, 13 valent Yusramanuel Denis [facility] 12-07-2016 influenza, unspecifi ed formulation Yursamanuel Denis [facility] NEGATED: Highlighted row has not occurred!11-16-2021 influenza virus vaccine, unspecified formulation Yusra Denis [facility] Payers Date Payer Category Payer Medicare [id number] 1957 Self-pay 1957 Unknown [id number] 1950 Unknown [id number] 2.16.84 [id number] 1950 Unknown [id number] 2.16.84 [id number] 1950 Unknown [id number] 2.16.8 [id number] 1950 Unknown [id number] 2.16.8 [id number] 1950 Unknown [id number] 2.16.8 [id number] 1950 Unknown [id number] 2.16.8 [id number] 1950 Unknown [id number] 2.16.8 [id number] 1950 Unknown [id number] 2.16.8 [id number] 1950 Unknown [id number] 2.16.8 [id number] 1950 Unknown [id number] 2.16.8 [id number] Social History Date Type Detail Facility Tobacco [facility] Comment on above: denies current use Sex Assigned At Male [facility] Start: 07-19-2021 End: 06-27-2022 Tobacco smoking status Never smoked tobacco (finding) [facility] Comment on above: denies current use Tobacco smoking status Never [facility] Functional Status Date Assessment Result Facility 05-17-2022 Functional Status N/A [facility] 11-16-2021 Functional Status N/A [facility] 10-05-2021 Functional Status N/A [facility] Clinical Notes 06-27-2020 to 01-23-2023 Note Date & Type Note Facility 01-23-2023 Note [facility] 01-23-2023 Note Review of Systems All other systems reviewed and are negative. PT JUST GETTING OVER COVID. FEELS GOOD, HE IS HOPING TO GO SOUTH SOON, BP ON TH LOWER SIDE TODAY, DOES NOT FEEL DIZZY [facility] 01-08-2023 Note [facility] 01-08-2023 Note [facility] 12-26-2022 Note [facility] 12-12-2022 Note [facility] 12-12-2022 Note [facility] 12-05-2022 Note [facility] 12-05-2022 Note [facility] 12-05-2022 Note [facility] 12-05-2022 Note [facility] 12-05-2022 Note [facility] 12-05-2022 Note [facility] 12-05-2022 Note [facility] 12-04-2022 Note [facility] 12-04-2022 Note [facility] 12-04-2022 Note Addendum created 1143 by Robin Pérez Intraprocedure Staff edited (Perfusion) [facility] 12-04-2022 Note [facility] 12-03-2022 Note [facility] 12-03-2022 Note [facility] 12-03-2022 Note [facility] 12-03-2022 Note [facility] 12-03-2022 Note [facility] 12-03-2022 Note [facility] 12-02-2022 Note [facility] 12-02-2022 Note This report has been cancelled. [facility] 12-02-2022 Note [facility] 12-01-2022 Note [facility] 12-01-2022 Note [facility] 12-01-2022 Note Chest tube placed at bedside per ICU MD. Patient signed consent and placed in chart. Patient tolerated procedure well. Patient Vitals are as charted. CXR ordered. Safety Maintained. [facility] 12-01-2022 Note [facility] 11-30-2022 Note [facility] 11-30-2022 Note [facility] 11-30-2022 Note [facility] 11-29-2022 Note [facility] 11-29-2022 Note [facility] 11-29-2022 Note [facility] 11-28-2022 Note [facility] 11-28-2022 Note [facility] 11-27-2022 Note [facility] 11-27-2022 Note [facility] 11-27-2022 Note [facility] 11-27-2022 Note [facility] 11-26-2022 Note [facility] 11-26-2022 Note [facility] 11-26-2022 Note [facility] 11-26-2022 Note [facility] 08-21-2022 Evaluation + Plan note Extrac lo [...] stroke: no 4. 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 Follow these instructions at home: Take dfgx-ozi-qscfjui and prescription medicines only as told by [...] 08/27/2017 Document Revised: 01/10/2018 Document Reviewed: 10/15/2017 [employer] Patient Education 2020 Yohobuy. Follow Up Care 11/16/2021 08:43:43 With:Yusra Denis CNP Address: When:1 month [facility] 10-06-2022 Hospital Discharge [...] 10/24/2004 Document Revised: 05/15/2018 Document Reviewed: 05/15/2018 [employer] Patient Education 2020 Filecubed Follow Up Care 10/10/2021 11:02:12 With:Yusra Denis CNP Address: When:6 months [facility] 08-25-2022 Evaluation + Plan noteExtracted from: Title:CARMEN POSTOP Author:Dangelo Morel DO Date: 10/05/21 Plan Transfer/ Discharge: Patient can be discharged from PACU when criteria met. Condition good. Extracted from: Title:CARMEN PREOP Author:Dangelo Morel DO Date: Plan [place] [employer] Anesthesiologists (ASA) physical status classification: [...] 01/09/22 * PT 02/06/22 * PT 03/06/22 [facility]08-25-2022 Hospital Discharge instructions Patient Education 10/05/2021 09:56:38 Colonoscopy, Care After Surgery Micaela (CONSTANCE) Colonoscopy Care After Surgery Please read the instructions outlined below and refer to this sheet in the next few weeks. These discharge instructions provide you with general information on [facility] Your doctor may also give you specific [...] With:Thais HINOJOSA Address: [address] [place] [address] Business (1) When: Unknown Comments:OFFICE WILL CALL DATE AND TIME OF FOLLOW-UP APPT. [facility]06-08-2022 Hospital Discharge instructions Patient Education 07/19/2021 09:11:00 [...] Follow these instructions at home: Medicines Take nzga-jfs-fbrundo and prescription medicines only as told by your health care provider. If you were prescribed an antibiotic medicine, take it as told by your health care provider. Do notstop taking the antibiotic even if you start to feel better. Eating and drinking Follow any diet changes as told by your health care provider. Work with a diet and development specialist (dietitian) to create an eating plan [...] 01/25/2001 Document Revised: 06/24/2019 Document Reviewed: 06/24/2019 [employer] Patient Education 2019 [employer]ubed Follow Up Care 07/11/2021 11:18:24 With:Yusra Denis CNP Address: When:1 month [facility] 05-16-2022 Hospital Discharge instructions Follow Up Care 06/26/2021 10:32:10 With:Dougie Harmon Address: [facility] [place] [address]- [phone] Fax Business (1) When: Unknown Comments:cbc, cmp, cea in 6mofollow-up in 6mo [facility]03-22-2022 Evaluation + Plan noteExtracted from: Title:- [facility]ESS HOSPITALC H&P Author:Aggie Hollingsworth Date :05/02/21 Impression and [...] stroke: no 4. 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 Author Type: Nurse Practitioner Type: Progress Notes Filed: 09/05/2020 11:19 AM Note Text: [facility] Clinic Date: [...] needed. Randomized control trial: RINSE/FIXATION Cydney Koch APRN.GENERAL DISTILLERY WORKER September 04, 2020 1113AM [facility] General Surgery [place] for Abdominal Core [facility]07-09-2021 NoteHNO ID: [id number] Author: Moris Shelton MD Service: General Surgery [...] surg schedule 2-3 weeks. Moris Shelton MD [facility] Service [id number] For calls on nights and weekends, please page the gen surg pager: [phone] 7:27 AM, 08/19/2020 [facility]07-08-2021 NoteHNO ID: [id number] Author: Amanda Aldana MD Service: General Surgery [...] schedule 2-3 weeks. MD Matthew Dinhiger Service [id number] For calls on nights and weekends, please page the gen surg pager: [phone] 1:08 PM, 08/18/2020 [facility]07-07-2021 NoteHNO ID: [id number] Author: Moris Shelton MD Service: General Surgery [...] 08/16/20699 - 08/17/2065808/17/20699 - 08/18/20 0659 Shift 5516-6885 1595-2113 4939-7489 24 Hour Total 3794-6844 0742-1973 2876-4331 24 Hour Total INTAKE PO 300 250 550 480 480 PO 300 250 550 480 480 Supplements (mL) 0 0 IV 75 75 Volume (mL) (lactated ringers iv infusion) 75 75 Shift Total 375 250 625 480 480 OUTPUT Urine 800 417 039 4530 351 351 Void (ml) 800 559 708 7691 351 351 Urine Not Saved. 1 x [...] 0 0 0 0 Shift Total 865 778 417 4021 411 411 Weight (kg) 93.4 93.4 93.4 [...] 1102 -- 08/12/20 1515 pneumatic compression stockings ([place], [place]) 08/12/20 1515 activity - mobilize patient ([place]) VTE Prophylaxis: VTE prophylaxis appropriate Plan of care discussed with: Provider, RN, Patient SIGNATURE: Moris Shelton MD PATIENT NAME: Shad Rodriguez DATE: August 17, 2020 TIME: 2:11 [facility]07-06-2021 NoteHNO ID: [id number] Author: Amanda Aldana MD Service: General Surgery [...] IS and pulmonary toilet Amanda Aldana MD [facility] Service [phone] For calls on nights and weekends, please page the gen surg pager: [phone] 5:44 AM, 08/16/2020 Assessment AND Plan Active Hospital Problems as of 08/16/2020 Noted - Resolved [facility] Ventral hernia 08/12/2020 - Present Yes [...] 0856 -- 08/12/20 1515 pneumatic compression stockings ([place], [place]) 08/12/20 1515 activity - mobilize patient ([place]) VTE Prophylaxis: VTE prophylaxis appropriate Plan of care discussed with: Provider, RN, Patient and Care Management SIGNATURE: Amanda Aldana MD PATIENT NAME: Shad Rodriguez DATE: August 16, 2020 TIME: 7:52 [facility]07-05-2021 NoteHNO ID: [id number] Author: Parish Gooden MD Service: General Surgery [...] CLD pending ROBF mucinex and duonebs Dilaudid LICENSING MANAGER Ancef for 24 hours Lovenox Monitor JIM output PRN antiemetics Encourage OOB and ambulation Encourage IS and pulmonary toilet Parish Gooden MD For calls on nights and weekends, please page the gen surg pager: [phone] 5:47 AM, 08/15/2020 [facility]07-04-2021 NoteHNO ID: [id number] Author: Parish Gooden MD Service: General Surgery [...] repair Sips and chips pending ROBF Dilaudid LICENSING MANAGER Mccabe catheter d/zackery Ancef for 24 hours Lovenox Monitor JIM output PRN antiemetics Encourage OOB and ambulation Encourage IS and pulmonary toilet Parish Gooden MD For calls on nights and weekends, please page the gen surg pager: [phone] 1:38 PM, 08/14/2020 [facility]07-03-2021 NoteHNO ID: [id number] Author: Parish Gooden MD Service: General Surgery [...] ventral hernia repair Clears pending ROBF Dilaudid LICENSING MANAGER Mccabe to be removed POD 2 Ancef for 24 hours Heparin > Lovenox Monitor JIM output PRN antiemetics Encourage OOB and ambulation Encourage IS and pulmonary toilet Parish Gooden MD For calls on nights and weekends, please page the gen surg pager: [phone] 8:39 AM, 08/13/2020 [facility]06-29-2021 NoteHNO ID: [id number] Author: Ledy Johns RN Service: ? Author [...] By: Ledy Johns RN In Department[facility] NoteHNO ID: [id number] Author: Felicia Amaya MD Service: ? Author [...] No Mesh Fixation for Open Retromuscular Repairs MIMEOGRAPH OPERATOR: Sydney Hassan MD COORDINATOR/Research Nurse/Brass Pickler: Tiara Funes MD ? [email or web address] Consenting was performed by the attending surgeon, in a cfyo-xe-pbjl manner, during preoperative evaluation at the General [...] [] 2. The patient is fluent in Kitt[place], has read the consent form and understood [...] 2. The patient is not fluent in [place] or cannot read the consent form and/or [...] Irrigation during Ventral Hernia Repair (RINSE Trial) MIMEOGRAPH OPERATOR: Sydney Hassan MD COORDINATOR/Research Nurse/Brass Pickler: Tiara Funes MD ? [email or web address] Consenting was performed by the attending surgeon, in a chpq-pk-uqlh manner, during preoperative evaluation at the General [...] [] 2. The patient is fluent in [place], has read the consent form and understood study procedures [x] [] (more content not included)...[facility]05-17-2021 NoteHNO ID: [id number] Author: Ronn Givens MD Service: ? Author [...] meds, HTN, with PSHx of Lap LAR, INSIDE SALES LEAD, DLI 01/2016; DLI closure 07/2016. Planned for [...] trials Ronn Givens MD, PhD Resident, PGY-1CSt[facility] Hospitalaluation + Plan note Future Appointments Appointment [...] 01/09/22 * PT 02/06/22 * PT 03/06/22 [facility] Future App[facility]ments Appointment Date:06/26/2021 [...] 01/09/22 * PT 02/06/22 * PT 03/06/22 [facility] Future Appointments Appointment Date:08/08/2021 08:30:00 AM Scheduled Provider: [facility] Appointment Type:Anticoagulation Follow Up 15 (FT) Appointment Date:08/28/2021 12:50:00 PM Scheduled Provider: Location:[facility] Appointment Type:Surgery FT Appointment Date:12/28/2021 01:00:00 PM Scheduled Provider:Dougie Harmon DO [facility] App[facility] Type:ONC Office Visit 15 (FT) Future [...] 01/09/22 * PT 02/06/22 * PT 03/06/22 [facility] Evaluation + Plan note Future Appointments Appointment Date:11/24/2021 09:30:00 AM Scheduled Provider: [facility] Appointment Type:Anticoagulation Follow Up 15 (FT) Appointment Date:12/28/2021 01:00:00 PM Scheduled Provider:Dougie Harmon DO Location:.ONCOLOGY Appointment Type:ONC Office Visit 15 (FT) Appointment Date:05/17/2022 08:00:00 AM Scheduled Provider:Yusra Denis CNP Location:[facility] Appointment Type:BADH Follow Up Future [...] 01/09/22 * PT 02/06/22 * PT 03/06/22 [facility] Evaluation + Plan note Future Appointments Appointment Date:12/28/2021 01:00:00 PM Scheduled Provider:Dougie Harmon DO Location:.ONCOLOGY Appointment Type:ONC Office Visit 15 (FT) Appointment Date:01/09/2022 09:00:00 AM Scheduled Provider: [facility] Appointment Type:Anticoagulation Follow Up 15 (FT) Appointment Date:05/17/2022 08:00:00 AM Scheduled Provider:Yusra Denis CNP Location:[facility] Appointment Type:BAD Follow Up Future Scheduled Tests Laboratory* PT 03/07/21 * PT 04/04/21 * PT 05/02/21 * PT 05/30/21 * PT 06/27/21 * PT 07/25/21 * PT 08/22/21 * PT 09/19/21 * PT 10/17/21 * PT 11/14/21 * PT 12/12/21 * PT 01/09/22 * PT 02/06/22 * PT 03/06/22 [facility] Future Appointments Appointment Date:01/09/2022 09:00:00 AM Scheduled Provider: Location:.[facility] Appointment Type:Anticoagulation Follow Up 15 (FT) Appointment Date:05/17/2022 08:00:00 AM Scheduled Provider:Yusra Denis CNP Location:[facility] Appointment Type:BADH Follow Up Appointment Date:06/27/2022 01:30:00 PM Scheduled Provider:Dougie Harmon DO [facility] Appoint[facility] Type:ONC Office Visit 15 (FT) Future Scheduled Tests Laboratory* PT 03/07/21 * PT 04/04/21 * PT 05/02/21 * PT 05/30/21 * PT 06/27/21 * PT 07/25/21 * PT 08/22/21 * PT 09/19/21 * PT 10/17/21 * PT 11/14/21 * PT 12/12/21 * PT 01/09/22 * PT 02/06/22 * PT 03/06/22 [facility] Future Appointments Appointment Date:06/01/2022 09:30:00 AM Scheduled Provider: [facility] Appointment Type:Anticoagulation Follow Up 15 (FT) Appointment Date:06/15/2022 08:00:00 AM Scheduled Provider:Yusra Denis CNP Location:[facility] Appointment Type:BAD Follow Up Appointment Date:06/27/2022 02:00:00 PM Scheduled Provider:Dougie Harmon DO [facility] Appointment Type:ONC Office Visit 15 (FT) Future [...] PT 03/06/22 * Vitamin B12 Level 05/17/22 [facility] Evaluation + Plan note Future Appointments Appointment Date:06/27/2022 08:20:00 AM Scheduled Provider:Yusra Denis CNP Location:[facility] Appointment Type:BADH Follow Up Appointment Date:06/27/2022 02:00:00 PM Scheduled Provider:Dougie Harmon DO [facility] Appointment Type:ONC Office Visit 15 (FT) Appointment Date:07/10/2022 09:30:00 AM Scheduled Provider: [facility] Appointment Type:Anticoagulation Follow Up 15 (FT) Future [...] PT 03/06/22 * Vitamin B12 Level 05/17/22 [facility] Hospital course Narrative No data available for this section [facility] No data available for this section [facility] No data available for this section [facility] Summary Purpose Family History No Family History [...] Directives Records Found Hospital Course Note [address] [place] [address] Discharge Summary Signed:[id number] Name: CEASARGULSHANSHAD MRUN: [id number] : 1950 Loc: 3S Age / Sex: 68/ M Adm Status: ADM Leonor Adm Date:06/03/19 Room/Bed: [facility]- Date of Service - Date of Service Date: 06/05/19 - Time Spent on Discharge Minutes spent on discharge:: 45 - Hospital Summary Hospital Summary:: This is a pleasant 68-year-old male with a history of diabetes mellitus and colon cancer was brought into the emergency room by the certified industrial hygienist for further evaluation and management of a syncopal event. Patient was in his usual state of health until this afternoon. 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 He was taking the exit to get to the Highway around 4:30 PM after exchanging the trailer with his colleague. He felt like his truck is spinning around. The next thing he knew was certified industrial hygienist were knocking on the door. He was [...] and content) DATE CREATED AUTHOR 01/23/2018 [facility] DATE CREATED AUTHOR AUTHOR'S ORGANIZ ATION 04/12/2020 [facility] DATE CREATED AUTHOR AUTHOR'S ORGANIZ ATION 03/09/2021 [facility] DATE CREATED AUTHOR AUTHOR'S ORGANIZ ATION 12/23/2021 [facility] DATE CREATED AUTHOR AUTHOR'S ORGANIZ ATION 01/02/2023 [facility] DATE CREATED AUTHOR AUTHOR'S ORGANIZ ATION 01/25/2023 [facility] Care Team (unrecognized sect ion and content) Personnel Name: Shad Dyson MD Address: [address] [place] [address] Name: Josephine Zambrano MA Name: Aggie Colorado MA Personnel Name: Shad Dyson MD Address: Address: [address] [place] [address] Name: Josephine Zambrano MA Name: Aggie Colorado MA Personnel Name: Shad Dyson MD Address: Address: [address] [place] [address] Name: Juan Manuel BARAHONA Josephine R Name: Aggie Colorado MA S Personnel Name: Shad Dyson MD Address: Address: [address] [place] [address] Name: Josephine Zambrano MA R Name: Aggie Colorado MA S Personnel Name: Shad Dyson MD Address: Address: [address] [place] [address] Name: Juan ManuelJosephine mayen MA R Name: Aggie Colorado MA S Personnel Name: Shad Dyson MD Address: Address: [address] [place] [address]- Name: Juan ManuelJosephine mayen MA R Name: Aggie Colorado MA S Personnel Name: Shad Dyson MD Address: Address: [address] [place] [address] Name: Juan ManuelJosephine mayen MA R Name: Aggie Colorado MA S Personnel Name: Shad Dyson MD Address: Address: [address] [place] [address] Name: Juan Manuel BARAHONA Josephine R Name: [...] BE BASED ON THE PRIMARY CLINICAL RECORDS. [facility] [employer] [facility]. provides no warranty or guarantee of the accuracy or completeness of information in this document.
[2023-03-23 16:43] LABS: Glucometer 221 mg/dL (74-106)
[2023-03-23] MEDS: INSULIN ASPART 300 UNIT/3 ML PEN SUBQ ×2 (17:30→21:47)
[2023-03-23 17:58] LABS: Lactate/Lactic Acid 2.5 mmol/L (0.4-2.0)
[2023-03-23 20:36] LABS: Glucometer 248 mg/dL (74-106)
[2023-03-23 21:31] LABS: Lactate/Lactic Acid 4.4 mmol/L (0.4-2.0)
[2023-03-23] MEDS: METHYLPREDNISOLONE SOD SUCC PF 40 MG/ML VIAL IVP (21:46)
[2023-03-23 22:02] LABS: Lactate/Lactic Acid 5.1 mmol/L (0.4-2.0)
[2023-03-23] MEDS: OXYCODONE HCL 5 MG TABLET PO (22:38)
[2023-03-23] MEDS: 0.9 % SODIUM CHLORIDE 500 ML IV (22:39)
[2023-03-23] MEDS: 0.9 % SODIUM CHLORIDE 1,000 ML 126 ML IV (22:39)
[2023-03-24] VITALS (9 sets, daily range): BP systolic 106–131; BP diastolic 57–86; PULSE 71–90; RESP 18; TEMP 36.4; O2SAT 90–95
[2023-03-24 01:05] LABS: Lactate/Lactic Acid 4.6 mmol/L (0.4-2.0)
[2023-03-24 02:34] LABS: Lactate/Lactic Acid 4.9 mmol/L (0.4-2.0)
[2023-03-24 05:07] LABS: Hematocrit 46.2 % (42.0-54.0); Hemoglobin 14.1 g/dL (14.0-18.0); Mean Corpuscular HGB Conc 30.5 g/dL (29.9-35.2); Mean Corpuscular Hemoglobin 29.4 pg (25.9-34.0); Mean Corpuscular Volume 96.5 fL (80.0-94.0); Mean Platelet Volume 10.2 fL (9.5-13.5); Platelet Count 179 10^3/uL (150-450); Red Blood Count 4.79 10^6/uL (4.70-6.10); Red Cell Distribution Width 14.6 % (11.0-15.0); White Blood Count 11.1 10^3/uL (4.0-11.0)
[2023-03-24] MEDS: OMEPRAZOLE 40 MG CAPSULE.DR PO (05:11)
[2023-03-24] MEDS: METHYLPREDNISOLONE SOD SUCC PF 40 MG/ML VIAL IVP (05:11)
[2023-03-24 05:27] LABS: INR 3.76
[2023-03-24 05:37] LABS: Lactate/Lactic Acid 5.6 mmol/L (0.4-2.0)
[2023-03-24 05:52] LABS: Alanine Aminotransferase 27 U/L (16-63); Albumin Globulin Ratio 0.9; Albumin Level 2.9 g/dL (3.4-5.0); Alkaline Phosphatase 82 U/L (46-116); Anion Gap 19.1; Aspartate Amino Transferase 15 U/L (15-37); BUN Creatinine Ratio 13.5; Bilirubin Total 0.2 mg/dL (0.2-1.0); Calcium 8.9 mg/dL (8.5-10.1); Chloride 107 mmol/L (98-107); Estimated GFR (African America 49 (>=60); Estimated GFR (Non-African Ame 40 (>=60); Globulin 3.4 g/dL; Glucose 235 mg/dL (74-106); Potassium 4.1 mmol/L (3.5-5.1); Sodium 142 mmol/L (136-145); Total Protein 6.3 g/dL (6.4-8.2)
[2023-03-24 06:05] LABS: Band Neutrophils Absolute 0.1 10^3/uL (0.0-0.3); Lymphocytes Absolute Manual 0.33 10^3/uL (1.20-3.80); Segmented Neut Absolute Manual 10.65 10^3/uL (1.4-6.5)
[2023-03-24] MEDS: 0.9 % SODIUM CHLORIDE 500 ML IV (06:19)
[2023-03-24] MEDS: 0.9 % SODIUM CHLORIDE 1,000 ML 126 ML IV (08:01)
[2023-03-24] MEDS: INSULIN ASPART 300 UNIT/3 ML PEN SUBQ (08:04)
[2023-03-24] MEDS: IPRATROPIUM/ALBUTEROL SULFATE 3 ML AMPUL.NEB IH (08:22)
[2023-03-24 09:11] LABS: Lactate/Lactic Acid 4.5 mmol/L (0.4-2.0)
[2023-03-24] MEDS: MULTIVITAMIN TABLET 1 TAB PO (09:58)
[2023-03-24] MEDS: AMLODIPINE BESYLATE 5 MG TABLET 2.5 MG PO (09:58)
[2023-03-24] MEDS: LISINOPRIL 5 MG TABLET 2.5 MG PO (09:58)
[2023-03-24] MEDS: METOPROLOL SUCCINATE 50 MG TAB.ER.24H PO (09:59)
[2023-03-24] MEDS: AMIODARONE HCL 200 MG TABLET PO (09:59)
[2023-03-24] MEDS: CANAGLIFLOZIN 100 MG TABLET PO (09:59)
[2023-03-24] MEDS: ATORVASTATIN CALCIUM 10 MG TABLET PO (09:59)
[2023-03-24] MEDS: GLIPIZIDE 5 MG TABLET PO (09:59)
--- NOTE | 2023-03-24 15:04 | PM.HP ---
H&P: HPI History of Present Illness Chief complaint: ASTHMA EXCERBATION, COVID POS Narrative: HPI and hospital course: 72 y o male with hx of intermittent asthma presents with 7 day hx of feeling sick and reports headache, cough, sinus, nose congestion and fever. He then started to experience SOB with wheezing and came to ED when he continued to feel worse and increasingly short of breath. Patient was evaluated in ED and work up revealed acute asthma exacerbation due to acute viral URI (coronavirus) and was admitted overnight for monitoring and continued treatment/care of asthma exacerbation. Patient was treated overnight with systemic steroids, inhaled bronchodilators and when seen earlier today, reported feeling a lot better. He remained afebrile, reported improvement in cough, SOB and wheezing. Stable for discharge. Will d/c on steroid taper, OTC tylenol/motrin as needed for URTI and benzonatate as needed for cough. Review of Systems ROS Status of ROS 10 or more systems reviewed and unremarkable except as noted in history and below [facility] Medical History (Updated 03/24/23 @ 15:13 by Shaikh Kayode MD) HLD (hyperlipidemia) ?E78.5 - Hyperlipidemia, unspecified (ICD-10) HTN (hypertension) ?I10 - Essential (primary) hypertension (ICD-10) H/O ventricular tachycardia ?Z86.79 - Personal history of other diseases of the circulatory system (ICD-10) Type 2 diabetes mellitus ?E11.9 - Type 2 diabetes mellitus without complications (ICD-10) Colon cancer ?C18.9 - Malignant neoplasm of colon, unspecified (ICD-10) Presence of combination internal cardiac defibrillator (ICD) and pacemaker ?Z95.810 - Presence of automatic (implantable) cardiac defibrillator (ICD-10) Pacemaker ?Z95.0 - Presence of cardiac pacemaker (ICD-10) COVID-19 ?U07.1 - COVID-19 (ICD-10) Social History (Updated 03/24/23 @ 15:09 by Shaikh Kayode MD) Within the past year, how often did you have a drink containing alcohol: never Within the past year, how many standard drinks containing alcohol did you have on a typical day: 1 or 2 Within the past year, how often did you have six or more drinks on one occasion: never Total score: 0 Score interpretation: A score less than 4 is consistent with normal alcohol consumption. Smoking status: Never smoker Non-prescribed substance use: denies use Meds Home Medications and Allergies Home Medications Medication Instructions Recorded Confirmed Type amlodipine 2.5 mg tablet 2.5 mg PO DAILY 11/24/22 03/23/23 History atorvastatin 10 mg tablet 10 mg PO DAILY 11/24/22 03/23/23 History glipizide 5 mg tablet 5 mg PO DAILY 11/24/22 03/23/23 History lisinopril 2.5 mg tablet 2.5 mg PO DAILY 11/24/22 03/23/23 History warfarin 4 mg tablet 4 mg PO DAILY 11/24/22 03/23/23 History amiodarone 200 mg tablet 400 mg PO DAILY 03/23/23 03/23/23 History dapagliflozin propanediol 10 mg 10 mg PO DAILY 03/23/23 03/23/23 History tablet (Farxiga) metoprolol succinate 50 mg 50 mg PO DAILY 03/23/23 03/23/23 History tablet,extended release 24 hr multivitamin with minerals-folic 1 tab PO DAILY 03/23/23 03/23/23 History acid 200 mcg chewable tablet (Daily Gummies) pantoprazole 40 mg tablet,delayed 40 mg PO DAILY 03/23/23 03/23/23 History release albuterol sulfate 90 mcg/actuation 2 inh inhalation Q6H PRN shortness 03/24/23 Rx aerosol inhaler of breath or wheezing #6.7 grams benzonatate 100 mg capsule 100 mg PO BID PRN cough #20 caps 03/24/23 Rx prednisone 20 mg tablet 20 mg PO BID 5 days #10 tabs 03/24/23 Rx Allergies Allergy/AdvReac Type Severity Reaction Status Date / Time Penicillins Allergy Unknown Verified 01/12/23 16:20 Exam Constitutional Vital Signs, click to edit/add: Last Vital Signs Temp 97.5 F L 03/24/23 04:04 Pulse 90 03/24/23 09:57 Resp 18 03/24/23 08:09 BP 131/86 03/24/23 08:00 Pulse Ox 94 L 03/24/23 08:24 O2 Del Method Room Air 03/24/23 08:24 Documenting provider has reviewed patient's vital signs: yes Common normals: no apparent distress and oriented x3 General appearance: cooperative HENMT Common normals: normocephalic and head/scalp atraumatic Head and scalp: normocephalic and atraumatic Eye Common normals: conjunctivae normal and no scleral icterus Conjunctiva: conjunctiva(e) normal Respiratory Common normals: normal respiratory effort Effort & inspection: able to speak in complete sentences Auscultation: wheezes scattered wheezes Cardio Common normals: regular rate, S1 normal heart sound and S2 normal heart sound Rate: regular rate Heart sounds: S1 normal and S2 normal GI Common normals: Normal to inspection, nondistended, normoactive bowel sounds present, soft to palpation, non-tender and no hepatosplenomegaly Palpation: soft and no hepatosplenomegaly Extremity Common normals: no clubbing, cyanosis or edema Neuro Common normals: oriented x3, moves all extremities and no focal motor deficits Psych Common normals: mental status grossly normal, denies hallucinations, denies homicidal ideation and denies suicidal ideation Results Labs Labs: Short CBC 03/24/23 Range/Units 04:41 WBC 11.1 H (4.0-11.0) 10^3/uL Hgb 14.1 (14.0-18.0) g/dL Hct 46.2 (42.0-54.0) % Plt Count 179 (150-450) 10^3/uL BMP 03/24/23 04:41 Sodium 142 Potassium 4.1 Chloride 107 Carbon Dioxide 20.0 L BUN 23.0 H Creatinine 1.70 H Glucose 235 H Calcium 8.9 Liver Function 03/24/23 Range/Units 04:41 Total Bilirubin 0.2 (0.2-1.0) mg/dL AST 15 (15-37) U/L ALT 27 (16-63) U/L Alkaline Phosphatase 82 (46-116) U/L Albumin 2.9 L (3.4-5.0) g/dL Urine 03/23/23 Range/Units 15:05 Urine Color Lt. yellow (YELLOW) Urine Clarity Clear (CLEAR) Urine pH 7.0 (5.0-9.0) Ur Specific [place] 1.010 (1.005-1.025) Urine Protein Negative (NEG/TRACE) mg/dL Urine Glucose (UA) >=1000 A (NEGATIVE) mg/dL Assessment and Plan Assessment and Plan (1) Acute asthma exacerbation: Qualifiers: Asthma persistence: persistent Asthma severity: moderate Qualified Code(s): J45.41 - Moderate persistent asthma with (acute) exacerbation (2) Coronavirus infection: (3) Leukocytosis: Qualifiers: Leukocytosis type: other Qualified Code(s): D72.828 - Other elevated white blood cell count (4) Type 2 diabetes mellitus: Qualifiers: Diabetes mellitus care home insulin use: without care home use Diabetes mellitus complication status: without complication Qualified Code(s): E11.9 - Type 2 diabetes mellitus without complications (5) Presence of combination internal cardiac defibrillator (ICD) and pacemaker: (6) H/O ventricular tachycardia: (7) HTN (hypertension): Qualifiers: Hypertension type: primary hypertension Qualified Code(s): I10 - Essential (primary) hypertension (8) HLD (hyperlipidemia): Qualifiers: Hyperlipidemia type: unspecified Qualified Code(s): E78.5 - Hyperlipidemia, unspecified Plan Presented with acute asthma exacerbation likely sec to acute viral URTI - tested positive for Coronavirus (not COVID 19), treated with systemic steroids, inhaled bronchodilators. Improved overnight and stable for d/c on Prednisone taper along with ventolin as needed. Patient instructed to f/u with PCP in 1 week. Closely monitor blood glucose while on steroids. Will benefit from outpatient PFTs once acute illness resolves.
--- NOTE | 2023-03-25 14:43 | CM.DCFOLLOWU ---
Person spoke with: Shad How are you feeling? Very tired How is your pain? No pain Did you understand your discharge instructions? Yes Do you have any questions about your discharge instructions? No Were you given any prescriptions at discharge? Yes Were you able to get your prescriptions filled? No I have not picked them up yet.. feeling very tired but my breathing is much better Do you understand how to take your medications as ordered? Yes Do you have any questions about your follow up appointment and do you plan to keep your follow up appointment? I slept through my appointment today. I will call and reschedule. Discussed with pt importance of f/u appointments. Is there anything else that you would like to discuss? No Questions/Comments/Concerns/Other:
== END 2023-03-24 10:55 | disposition home or self-care (01) ==
LOC: ER 14:38 → MS 15:39
PROVIDERS: Registered Nurse; Admitting Provider Internal Medicine; Emergency Provider Emergency Medicine; PCP Nurse Practitioner Family; Visit Provider Internal Medicine
DX: J45.41 Moderate persistent asthma with (acute) exacerbation (principal); J06.9 Acute upper respiratory infection, unspecified; B97.29 Other coronavirus as the cause of diseases classified elsewhere; E78.5 Hyperlipidemia, unspecified; I10 Essential (primary) hypertension; E11.9 Type 2 diabetes mellitus without complications; Z95.810 Presence of automatic (implantable) cardiac defibrillator; Z86.79 Personal history of other diseases of the circulatory system; Z85.038 Personal history of other malignant neoplasm of large intestine; Z79.82 Long term (current) use of aspirin; Z79.01 Long term (current) use of 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; Z79.899 Other long term (current) drug therapy; Z20.822 Contact with and (suspected) exposure to COVID-19
CPT/HCPCS: 0202U; 36415; 71045; 80053; 81001; 83605; 84484; 85007; 85025; 85027; 85610; 87040; 87070; 93005; 94640; 94761; 96365; 96375; 96376; 99285; G0378; J2920; J2930

== ENCOUNTER 2023-03-28 09:08 | Outpatient (OUT) | payer MEDICARE, OTHER, SELFPAY ==
--- NOTE | 2023-03-28 09:13 | US_ITS ---
The [address] [address] Patient Name: LAKIA RODRIGUEZ MRN: [id number] date: 1950 Sex: M Assigned Patient Location: [place] Current Patient Location: [place] Accession/Order Number: [id number] Exam Date: 03/28/2023 09:20 Report Date: 03/28/2023 11:12 At the request of: SILVIO AGUILA Procedure: US abdomen complete US abdomen complete, 03/28/2023 9:20 AM EST INDICATION: Abdominal Discomfort R10.9 COMPARISON: CT of the abdomen pelvis dated 09/21/2020 Findings: This study is limited due to body habitus and overlying gas. The proximal abdominal aorta measures 2.4 centimeter, the midportion measures 2.1 x 2.3 centimeter, and infrarenal abdominal aorta measures 2 centimeter. There is a possible hypoechogenic area measuring 1.5 x 1.5 x 0.9 cm the tail of pancreas. Given the limitation of the ultrasound for evaluation of the pancreas, the visualized portion of the remainder of pancreas is unremarkable. The liver is diffusely hyperechogenic with focal area of fatty sparing adjacent to the gallbladder. It measures 15 cm in the right midclavicular line. IVC and portal vein are patent. Gallbladder is unremarkable. There is no ultrasound Leblanc's sign. The proximal common bile duct measures 4.7 mm. The spleen is normal in size and with multiple calcification likely due to prior granulomatous disease. The kidneys are normal in size measuring 8.6 x 5.1 x 5 cm on the right and 9.8 x 5.5 x 6.7 cm on the left side. No hydronephrosis is noted. US/US abdomen complete IMPRESSION: Findings suggestive of hepatic steatosis or diffuse fibrotic process. Possible new hypoechogenic lesion within the tail of pancreas. An MRCP is recommended for further evaluation. No other significant abnormality is noted. An incidental note was submitted to inform the clinician at 11:12 AM Electronically authenticated by: LAWRENCE RODRIGUES Date: 03/28/2023 11:12
--- OUTSIDE RECORDS SUMMARY | 2023-03-28 09:23 | XMS_ITS | CCD ---
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 Name Role Phone DOMINGO SARAVIA Unavailable Unavailab [...] reactions to drug (disorder) 6 AOF, unknown [facility] Repository (5 sources) RAGWEED; 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: [RAGWEED] Propensity to adverse reactions to drug (disorder) 6 Dyspnea (finding) [facility] Repository (1 source) house dust allergenic extract; 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: [HOUSE DUST] Drug Allergy 3 [facility] Repository Medications Current Medications Medication Drug Class(es) Dates Sig (Normalized) Sig (Original) albuterol HFA 90 mcg/inh MDI (11 sources) Start: 05-13-2018 take 2 puff(s) by inhalation four times daily for wheezing albuterol HFA 90 mcg/inh MDI 2 puff(s), Inhalation, QID for wheezing, 6.7 gram, Refill(s) 0, [facility]/pharmacy #[id number] Start Date: 05/13/18 Status: Ordered amLODIPine 2.5 [...] BID, # 60 tab(s), Refills(s) 5, Pharmacy: [facility]/pharmacy #[id number] Start Date: 08/29/18 Status: Ordered atorvastatin 10 [...] 1 EA, Refill(s) 0, Prior to colonoscopy., [facility]/pharmacy #[id number], 167.6, cm, 07/19/21 8:57:00 EDT, [...] Date: 05/12/18 Status: Ordered polyethylene glycol 3350 69141 mg powder for oral solution (8 sources) [...] day, # 21 tab(s), Refills(s) 0, Pharmacy: [facility]/pharmacy #[id number] Start Date: 05/13/18 Status: Ordered psyllium 525 mg oral capsule (3 sources) Start: 05-17-2022 End: 06-22-2023 take 5 capsules by mouth once daily Metamucil 525 mg oral capsule 2,625 mg = 5 cap(s), Oral, Daily, X 90 day(s), # 450 cap(s), Refills(s) 3, [id number], 167.6, cm, 06/27/22 8:28:00 EDT, [...] results, # 90 tab(s), Refills(s) 0, [id number], 167.6, cm, 01/02/19 13:46:00 EST, [...] disease (4 sources) Atherosclerotic heart disease of [place] coronary artery without angina pectoris; 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: [Coronary [...] sources) Long-term current use of anticoagulant; 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: [FPC (current) use of 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] Episodic Other aftercare (2 sources) 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; 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: [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3 mg/dL Normal 8.6-10.3 [facility] Comment on above: Performed By: #### L [id number] ####[facility] ([facility])[address] [place] [address] Chloride [Moles/Vol] 104 mmol/L Normal 98-107 [facility] Comment on above: Performed By: #### L [id number] ####[facility] ([facility])[address] [place] [address] CO2 [Moles/Vol] 24 mmol/L Normal 21-31 [facility] Comment on above: Performed By: #### L [id number] ####[facility] ([facility])[address] [place] [address] Creatinine [Mass/Vol] 1.20 mg/dL Normal 0.70-1.30 [facility] Comment on above: Performed By: #### L [id number] ####[facility] ([facility])[address] [place] [address] GLOMERULAR FILTRATION RATE ML/MIN/1.73 SQ M.PREDICTED 65.1 mL/min/1.73m*2 Normal >60.0 [facility] Comment on above: Result Comment: The [facility]???s estimated glomerular filtration rate (eGFR) will no [...] of individuals. Performed By: #### L [id number] ####[facility] ([facility] [place] [address] Glucose [Mass/Vol] 148 mg/dL High 70-100 [facility] Comment on above: Performed By: #### L [id number] ####[facility] ([facility] [place] [address] Potassium [Moles/Vol] 4.3 mmol/L Normal 3.5-5.1 [facility] Comment on above: Performed By: #### L [id number] ####[facility] ([facility] [place] [address] Sodium [Moles/Vol] 134 mmol/L Low 136-145 [facility] Comment on above: Performed By: #### L [id number] ####[facility] ([facility] [place] [address] Urea nitrogen [Mass/Vol] 28 mg/dL High 7-25 [facility] Comment on above: Performed By: #### L [id number] ####[facility] ([facility])[address] [place] [address] UREA NITROGEN/CREATININE (MASS RATIO) IN SER/PLAS 23.3 Normal [facility] Comment on above: Performed By: #### L [id number] ####[facility] ([facility])[address] [place] [address] CBCon 12-05-2022 Erythrocyte distribution width (RBC) [Ratio] 14.3 % Normal 11.5-15.0 [facility] Comment on above: Performed By: #### L [id number] ####[facility] ([facility])[address] [place] [address] ERYTHROCYTE MEAN CORPUSCULAR HEMOGLOBIN CONCENTRATION (G/DL) BY AUTOMATED 33.5 g/dL Normal 32.0-35.0 [facility] Comment on above: Performed By: #### L [id number] ####[facility] [place] [address] Hematocrit (Bld) [Volume fraction] 39.4 % Normal 39.0-55.0 [facility] Comment on above: Performed By: #### L [id number] ####[facility] ([facility])[address] [place] [address] Hemoglobin (Bld) [Mass/Vol] 13.2 g/dL Normal 13.0-17.0 [facility] Comment on above: Performed By: #### L [id number] ####[facility] ([facility])[address] [address] IMMATURE PLATELET FRACTION % 2.2 % Normal 0.8-6.3 [facility] Comment on above: Performed By: #### L [id number] ####[facility] ([facility])[address] [place] [address] MCH (RBC) [Entitic mass] 29.7 pg Normal 27.0-33.0 [facility] Comment on above: Performed By: #### L [id number] ####[facility] ([facility])[address] [place] [address] MCV (RBC) [Entitic vol] 88.5 fL Normal 82.0-98.0 [facility] Comment on above: Performed By: #### L [id number] ####[facility] ([facility])[address] [place] [address] PLATELETS (10*3/UL) IN BLOOD AUTOMATED COUNT 132 10*3/uL Low 150-400 [facility] Comment on above: Performed By: #### L [id number] ####[facility] ([facility])[address] [place] [address] RBC (Bld) [#/Vol] 4.45 10*6/uL Normal 4.20-5.70 [facility] Comment on above: Performed By: #### L [id number] ####[facility] ([facility])[address] [address] WBC (Bld) [#/Vol] 6.95 10*3/uL Normal 4.00-10.60 [facility] Comment on above: Performed By: #### L [id number] ####[facility] ([facility] [place] [address] DSon 12-05-2022 DS Normal [facility] POCT GLUCOSE METER UNSOLICIT ED RESULTSon 12-05-2022 Glucose [Mass/Vol] 147 mg/dL High 70-105 [facility] Comment on above: Order Comment: Waive d Testing in the ED is performed under the ED CLIA certificate #[id number]. Result Comment: [email or web address] Performed By: #### L [id number] ####[facility] ([facility])[address] [facility] [place] [address] Glucose [Mass/Vol] 185 mg/dL High 70-105 [facility] Comment on above: Order Comment: Waive d Testing in the ED is performed under the ED CLIA certificate #[id number]. Result Comment: [email or web address] Performed By: #### L [id number] ####[facility] ([facility])[address] [place] [address] Glucose [Mass/Vol] 153 mg/dL High 70-105 [facility] Comment on above: Order Comment: Waive d Testing in the ED is performed under the ED CLIA certificate #[id number]. Result Comment: [email or web address] Performed By: #### L [id number] ####[facility] ([facility])[address] [place] [address] 30on 12-04-2022 30 The patient is Moderately Stable - Low risk of patient condition declining or worsening The patient's goals for the shift include comfort The clinical goals for the shift include stable vitals Normal [facility] 30 Normal [facility] 30 The patient is Moderately Stable - Low risk of patient condition declining or worsening The patient's goals for the shift include Comfort The clinical goals for the shift include VSS Normal [facility] BASIC METABOLIC PANELon - Anion gap [Moles/Vol] 11 mmol/L Normal 7-20 [facility] Comment on above: Performed By: #### L [id number] ####[facility] [place] [address] Calcium [Mass/Vol] 8.9 mg/dL Normal 8.6-10.3 [facility] Comment on above: Performed By: #### L [id number] ####[facility] [place] [address] Chloride [Moles/Vol] 105 mmol/L Normal 98-107 [facility] Comment on above: Performed By: #### L [id number] ####[facility] ([facility])[address] [place] [address] CO2 [Moles/Vol] 23 mmol/L Normal 21-31 [facility] Comment on above: Performed By: #### L [id number] ####[facility] ([facility])[address] [place] [address] Creatinine [Mass/Vol] 1.32 mg/dL High 0.70-1.30 [facility] Comment on above: Performed By: #### L [id number] ####[facility] ([facility])[address] [place] [address] GLOMERULAR FILTRATION RATE ML/MIN/1.73 SQ M.PREDICTED 58.0 mL/min/1.73m*2 Low >60.0 [facility] Comment on above: Result Comment: The [facility]???s estimated glomerular filtration rate (eGFR) will no [...] of individuals. Performed By: #### L [id number] ####[facility] ([facility])[address] [place] [address] Glucose [Mass/Vol] 144 mg/dL High 70-100 [facility] Comment on above: Performed By: #### L [id number] ####[facility] ([facility])[address] [place] [address] Potassium [Moles/Vol] 4.5 mmol/L Normal 3.5-5.1 [facility] Comment on above: Performed By: #### L [id number] ####[facility] ([facility])[address] [place] [address] Sodium [Moles/Vol] 134 mmol/L Low 136-145 [facility] Comment on above: Performed By: #### L [id number] ####[facility] ([facility])[address] [place] [address] Urea nitrogen [Mass/Vol] 37 mg/dL High 7-25 [facility] Comment on above: Performed By: #### L [id number] ####[facility] ([facility] [place] [address] UREA NITROGEN/CREATININE (MASS RATIO) IN SER/PLAS 28.0 Normal [facility] Comment on above: Performed By: #### L [id number] ####[facility] ([facility])[address] [place] [address] CBCon 12-04-2022 Erythrocyte distribution width (RBC) [Ratio] 14.9 % Normal 11.5-15.0 [facility] Comment on above: Performed By: #### L [id number] ####[facility] ([facility])[address] [place] [address] ERYTHROCYTE MEAN CORPUSCULAR HEMOGLOBIN CONCENTRATION (G/DL) BY AUTOMATED 32.6 g/dL Normal 32.0-35.0 [facility] Comment on above: Performed By: #### L [id number] ####[facility] ([facility])[address] [place] [address] Hematocrit (Bld) [Volume fraction] 39.0 % Normal 39.0-55.0 [facility] Comment on above: Performed By: #### L [id number] ####[facility] ([facility])[address] [place] [address] Hemoglobin (Bld) [Mass/Vol] 12.7 g/dL Low 13.0-17.0 [facility] Comment on above: Performed By: #### L [id number] ####[facility] ([facility])[address] [place] [address] IMMATURE PLATELET FRACTION % 3.8 % Normal 0.8-6.3 [facility] Comment on above: Performed By: #### L [id number] ####[facility] ([facility])[address] [place] [address] MCH (RBC) [Entitic mass] 29.6 pg Normal 27.0-33.0 [facility] Comment on above: Performed By: #### L [id number] ####[facility] ([facility])[address] [place] [address] MCV (RBC) [Entitic vol] 90.9 fL Normal 82.0-98.0 [facility] Comment on above: Performed By: #### L [id number] ####[facility] ([facility])[address] [place] [address] PLATELETS (10*3/UL) IN BLOOD AUTOMATED COUNT 130 10*3/uL Low 150-400 [facility] Comment on above: Performed By: #### L [id number] ####[facility] ([facility])[address] [place] [address] RBC (Bld) [#/Vol] 4.29 10*6/uL Normal 4.20-5.70 [facility] Comment on above: Performed By: #### L [id number] ####[facility] ([facility])[address] [place] [address] WBC (Bld) [#/Vol] 6.97 10*3/uL Normal 4.00-10.60 [facility] Comment on above: Performed By: #### L [id number] ####[facility] ([facility])[address] [place] [address] POCT GLUCOSE METER UNSOLICIT ED RESULTSon 10-24-2023 Glucose [Mass/Vol] 167 mg/dL High 70-105 [facility] Comment on above: Order Comment: Waive d Testing in the ED is performed under the ED CLIA certificate #[id number]. Result Comment: [email or web address] Performed By: #### L [id number] ####[facility] ([facility])[address] [facility] [place] [address] Glucose [Mass/Vol] 105 mg/dL Normal 70-105 [facility] Comment on above: Order Comment: Waive d Testing in the ED is performed under the ED CLIA certificate #[id number]. Result Comment: dayval [email or web address] Performed By: #### L [id number] ####[facility] ([facility])[address] [place] [address] Glucose [Mass/Vol] 152 mg/dL High 70-105 [facility] Comment on above: Order Comment: Waive d Testing in the ED is performed under the ED CLIA certificate #[id number]. Result Comment: [email or web address] Performed By: #### L [id number] ####[facility] ([facility])[address] [facility] [place] [address] 30on 12-03-2022 30 The patient is Moderately Stable - Low risk of patient condition declining or worsening The patient's goals for the shift include comfort The clinical goals for the shift include stable vitals Normal [facility] 30 The patient is Moderately Stable - Low risk of patient condition declining or worsening The patient's goals for the shift include Comfort The clinical goals for the shift include VSS Normal [facility] 30 Normal [facility] ANESon 12-03-2022 ANES Normal [facility] ANES Normal [facility] Anesthesiaon 12-03-2022 Anesthesia [id number] Shad Rodriguez 1950 M Date Provider Department Center 12/03/2022 YONATHAN REBOLLEDO [facility] No family history on file Normal [facility] BASIC METABOLIC PANELon 11-12 Anion gap [Moles/Vol] 12 mmol/L Normal 7-20 [facility] Comment on above: Performed By: #### L [id number] ####[facility] ([facility])[address] [place] [address] Calcium [Mass/Vol] 9.6 mg/dL Normal 8.6-10.3 [facility] Comment on above: Performed By: #### L [id number] ####[facility] ([facility])[address] [place] [address] Chloride [Moles/Vol] 101 mmol/L Normal 98-107 [facility] Comment on above: Performed By: #### L [id number] ####[facility] ([facility])[address] [place] [address] CO2 [Moles/Vol] 21 mmol/L Normal 21-31 [facility] Comment on above: Performed By: #### L [id number] ####[facility] ([facility])[address] [place] [address] Creatinine [Mass/Vol] 1.78 mg/dL High 0.70-1.30 [facility] Comment on above: Performed By: #### L [id number] ####[facility] ([facility])[address] [place] [address] GLOMERULAR FILTRATION RATE ML/MIN/1.73 SQ M.PREDICTED 40.5 mL/min/1.73m*2 Low >60.0 [facility] Comment on above: Result Comment: The [facility]???s estimated glomerular filtration rate (eGFR) will no [...] ####[facility] ([facility])[address] [place] [address] Glucose [Mass/Vol] 194 mg/dL High 70-100 [facility] Comment on above: Performed By: #### L [id number] ####[facility] [place] [address] Potassium [Moles/Vol] 4.3 mmol/L Normal 3.5-5.1 [facility] Comment on above: Performed By: #### L [id number] ####[facility] [place] [address] Sodium [Moles/Vol] 130 mmol/L Low 136-145 [facility] Comment on above: Performed By: #### L [id number] ####[facility] [place] [address] Urea nitrogen [Mass/Vol] 47 mg/dL High 7-25 [facility] Comment on above: Performed By: #### L [id number] ####[facility] ([facility])[address] [place] [address] UREA NITROGEN/CREATININE (MASS RATIO) IN SER/PLAS 26.4 Normal [facility] Comment on above: Performed By: #### L [id number] ####[facility] ([facility] [place] [address] CBCon 12-03-2022 Erythrocyte distribution width (RBC) [Ratio] 14.9 % Normal 11.5-15.0 [facility] Comment on above: Performed By: #### L [id number] ####[facility] [place] [address] ERYTHROCYTE MEAN CORPUSCULAR HEMOGLOBIN CONCENTRATION (G/DL) BY AUTOMATED 32.9 g/dL Normal 32.0-35.0 [facility] Comment on above: Performed By: #### L [id number] ####[facility] ([facility])[address] [place] [address] Hematocrit (Bld) [Volume fraction] 41.0 % Normal 39.0-55.0 [facility] Comment on above: Performed By: #### L [id number] ####[facility] ([facility])[address] [place] [address] Hemoglobin (Bld) [Mass/Vol] 13.5 g/dL Normal 13.0-17.0 [facility] Comment on above: Performed By: #### L [id number] ####[facility] ([facility])[address] [address] MCH (RBC) [Entitic mass] 29.3 pg Normal 27.0-33.0 [facility] Comment on above: Performed By: #### L [id number] ####[facility] ([facility])[address] [address] MCV (RBC) [Entitic vol] 89.1 fL Normal 82.0-98.0 [facility] Comment on above: Performed By: #### L [id number] ####[facility] ([facility])[address] [place] [address] PLATELETS (10*3/UL) IN BLOOD AUTOMATED COUNT 134 10*3/uL Low 150-400 [facility] Comment on above: Performed By: #### L [id number] ####[facility] ([facility])[address] [address] RBC (Bld) [#/Vol] 4.60 10*6/uL Normal 4.20-5.70 [facility] Comment on above: Performed By: #### L [id number] ####[facility] ([facility])[address] [place] [address] WBC (Bld) [#/Vol] 10.62 10*3/uL High 4.00-10.60 [facility] Comment on above: Performed By: #### L [id number] ####[facility] [place] [address] CONSULTon 12-03-2022 CONSULT Normal [facility] HPon 12-03-2022 HP [facility] HP [facility] NURSNOTEon 12-03-2022 NURSNOTE Report called to Shalini RN 3AB Amy Valiente 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 Result Comment: [email or web address] Performed By: #### L [id number] ####[facility] (Built In)[address] [place] [address] Glucose [Mass/Vol] 148 mg/dL High 70-105 [facility] Comment on above: Order Comment: Waive d Testing in the ED is performed under the ED CLIA certificate #[id number]. Result Comment: [email or web address] Performed By: #### L [id number] ####[facility] ([facility])[address] [place] [address] Glucose [Mass/Vol] 165 mg/dL High 70-105 [facility] Comment on above: Order Comment: Waive d Testing in the ED is performed under the ED CLIA certificate #[id number]. Result Comment: [email or web address] Performed By: #### L [id number] ####[facility] ([facility])[address] [place] [address] Glucose [Mass/Vol] 158 mg/dL High 70-105 [facility] Comment on above: Order Comment: Waive d Testing in the ED is performed under the ED CLIA certificate #[id number]. Result Comment: [email or web address] Performed By: #### L [id number] ####[facility] (BE[facility] In)[address] [place] [address] TYPE AND SCREENon 12-03-2022 AB SCREEN Negative [facility] Comment on above: Performed By: #### L [id number] ####[facility], ABO group Nom (Bld) AB [facility] Comment on above: Performed By: #### L [id number] ####[facility], RH TYPE IN BLOOD Positive Normal [facility] Comment on above: Performed By: #### L [id number] ####[facility], 30on 12-02-2022 30 Normal [facility] BASIC METABOLIC PANELon 11-12 Anion gap [Moles/Vol] 11 mmol/L Normal 7-20 [facility] Comment on above: Performed By: #### L [id number] ####[facility] ([facility]ER)[address] [place] [address] Calcium [Mass/Vol] 9.6 mg/dL Normal 8.6-10.3 [facility] Comment on above: Performed By: #### L [id number] ####[facility] ([facility])[address] [place] [address] Chloride [Moles/Vol] 103 mmol/L Normal 98-107 [facility] Comment on above: Performed By: #### L [id number] ####[facility] ([facility]ER)[address] [place] [address] CO2 [Moles/Vol] 22 mmol/L Normal 21-31 [facility] Comment on above: Performed By: #### L [id number] ####[facility] [facility] LAB (BEAKER)[address] [place] [address] Creatinine [Mass/Vol] 1.73 mg/dL High 0.70-1.30 [facility] Comment on above: Performed By: #### L [id number] ####[facility] (BEAKER)[address] [place] [address] GLOMERULAR FILTRATION RATE ML/MIN/1.73 SQ M.PREDICTED 41.9 mL/min/1.73m*2 Low >60.0 [facility] Comment on above: Result Comment: The [facility]???s estimated glomerular filtration rate (eGFR) will no [...] of individuals. Performed By: #### L [id number] ####[facility] ([facility])[address] [place] [address] Glucose [Mass/Vol] 168 mg/dL High 70-100 [facility] Comment on above: Performed By: #### L [id number] ####[facility] ([facility])[address] [place] [address] Potassium [Moles/Vol] 4.3 mmol/L Normal 3.5-5.1 [facility] Comment on above: Performed By: #### L [id number] ####[facility] ([facility])[address] [place] [address] Sodium [Moles/Vol] 132 mmol/L Low 136-145 [facility] Comment on above: Performed By: #### L [id number] ####[facility] ([facility])[address] [place] [address] Urea nitrogen [Mass/Vol] 42 mg/dL High 7-25 [facility] Comment on above: Performed By: #### L [id number] ####[facility] ([facility])[address] [place] [address] UREA NITROGEN/CREATININE (MASS RATIO) IN SER/PLAS 24.3 Normal [facility] Comment on above: Performed By: #### L [id number] ####[facility] ([facility])[address] [place] [address] CBCon 12-02-2022 Erythrocyte distribution width (RBC) [Ratio] 15.0 % Normal 11.5-15.0 [facility] Comment on above: Performed By: #### L [id number] ####[facility] ([facility])[address] [place] [address] ERYTHROCYTE MEAN CORPUSCULAR HEMOGLOBIN CONCENTRATION (G/DL) BY AUTOMATED 32.8 g/dL Normal 32.0-35.0 [facility] Comment on above: Performed By: #### L [id number] ####[facility] (BEAKER)[address] [address] Hematocrit (Bld) [Volume fraction] 40.0 % Normal 39.0-55.0 [facility] Comment on above: Performed By: #### L [id number] ####[facility] (BEAKER)[address] [place] [address] Hemoglobin (Bld) [Mass/Vol] 13.1 g/dL Normal 13.0-17.0 [facility] Comment on above: Result Comment: Resu lts checked Performed By: #### L [id number] ####[facility] [place] [address] MCH (RBC) [Entitic mass] 29.0 pg Normal 27.0-33.0 [facility] Comment on above: Performed By: #### L [id number] ####[facility] (BEAKER)[address] [place] [address] MCV (RBC) [Entitic vol] 88.7 fL Normal 82.0-98.0 [facility] Comment on above: Performed By: #### L [id number] ####[facility] (BEAKER)[address] [place] [address] PLATELETS (10*3/UL) IN BLOOD AUTOMATED COUNT 129 10*3/uL Low 150-400 [facility] Comment on above: Performed By: #### L [id number] ####[facility] (BEAKER)[address] [place] [address] RBC (Bld) [#/Vol] 4.51 10*6/uL Normal 4.20-5.70 [facility] Comment on above: Performed By: #### L [id number] ####[facility] (BEAKER)[address] [place] [address] WBC (Bld) [#/Vol] 13.62 10*3/uL High 4.00-10.60 [facility] Comment on above: Performed By: #### L [id number] ####[facility] [place] [address] POCT GLUCOSE METER UNSOLICIT ED RESULTSon 12-02-2022 Glucose [Mass/Vol] 208 mg/dL High 70-105 [facility] Comment on above: Order Comment: Waive d Testing in the ED is performed under the ED CLIA certificate #[id number]. Result Comment: [email or web address] Performed By: #### L [id number] ####[facility] ([facility])[address] [place] [address] Glucose [Mass/Vol] 224 mg/dL High 70-105 [facility] Comment on above: Order Comment: Waive d Testing in the ED is performed under the ED CLIA certificate #[id number]. Result Comment: [email or web address] Performed By: #### L [id number] ####[facility] ([facility])[address] [place] [address] Glucose [Mass/Vol] 173 mg/dL High 70-105 [facility] Comment on above: Order Comment: Waive d Testing in the ED is performed under the ED CLIA certificate #[id number]. Result Comment: [email or web address] Performed By: #### L [id number] ####[facility] ([facility])[address] [place] [address] Glucose [Mass/Vol] 135 mg/dL High 70-105 [facility] Comment on above: Order Comment: Waive d Testing in the ED is performed under the ED CLIA certificate #[id number]. Result Comment: [email or web address] Performed By: #### L [id number] ####[facility] (BEAKER)[address] [place] [address] 30on 12-01-2022 30 Normal [facility] APTTon 12-01-2022 ACTIVATED PARTIAL THROMBOPLASTIN TIME IN PPP BY COAGULATION ASSAY 28.0 Seconds Normal 25.0-35.0 [facility] Comment on above: Result Comment: Clin ical significance of the APTT is questionable in the presence of heparin. Performed By: #### L [id number] ####[facility] (BEAKER)[address] [place] [address] BASIC METABOLIC PANELon 10-2 Anion gap [Moles/Vol] 16 mmol/L Normal 7-20 [facility] Comment on above: Performed By: #### L [id number] ####[facility] [place] [address] Calcium [Mass/Vol] 10.4 mg/dL High 8.6-10.3 [facility] Comment on above: Performed By: #### L [id number] ####[facility] (BEAKER)[address] [place] [address] Chloride [Moles/Vol] 101 mmol/L Normal 98-107 [facility] Comment on above: Performed By: #### L [id number] ####[facility] (BEAKER)[address] [place] [address] CO2 [Moles/Vol] 21 mmol/L Normal 21-31 [facility] Comment on above: Performed By: #### L [id number] ####[facility] (BEAKER)[address] [place] [address] Creatinine [Mass/Vol] 1.78 mg/dL High 0.70-1.30 [facility] Comment on above: Performed By: #### L [id number] ####[facility] (BEAKER)[address] [place] [address] GLOMERULAR FILTRATION RATE ML/MIN/1.73 SQ M.PREDICTED 40.5 mL/min/1.73m*2 Low >60.0 [facility] Comment on above: Result Comment: The [facility]???s estimated glomerular filtration rate (eGFR) will no [...] of individuals. Performed By: #### L [id number] ####[facility] ([facility])[address] [place] [address] Glucose [Mass/Vol] 260 mg/dL High 70-100 [facility] Comment on above: Performed By: #### L [id number] ####[facility] ([facility])[address] [place] [address] Potassium [Moles/Vol] 5.0 mmol/L Normal 3.5-5.1 [facility] Comment on above: Performed By: #### L [id number] ####[facility] ([facility])[address] [place] [address] Sodium [Moles/Vol] 133 mmol/L Low 136-145 [facility] Comment on above: Performed By: #### L [id number] ####[facility] ([facility])[address] [place] [address] Urea nitrogen [Mass/Vol] 32 mg/dL High 7-25 [facility] Comment on above: Performed By: #### L [id number] ####[facility] ([facility])[address] [place] [address] UREA NITROGEN/CREATININE (MASS RATIO) IN SER/PLAS 18.0 Normal [facility] Comment on above: Performed By: #### L [id number] ####[facility] ([facility])[address] [place] [address] CBCon 12-01-2022 Erythrocyte distribution width (RBC) [Ratio] 14.7 % Normal 11.5-15.0 [facility] Comment on above: Performed By: #### L [id number] ####[facility] ([facility])[address] [place] [address] ERYTHROCYTE MEAN CORPUSCULAR HEMOGLOBIN CONCENTRATION (G/DL) BY AUTOMATED 33.0 g/dL Normal 32.0-35.0 [facility] Comment on above: Performed By: #### L [id number] ####[facility] (BEAKER)[address] [address] Hematocrit (Bld) [Volume fraction] 46.6 % Normal 39.0-55.0 [facility] Comment on above: Performed By: #### L [id number] ####[facility] (BEAKER)[address] [place] [address] Hemoglobin (Bld) [Mass/Vol] 15.4 g/dL Normal 13.0-17.0 [facility] Comment on above: Performed By: #### L [id number] ####[facility] (BEAKER)[address] [place] [address] MCH (RBC) [Entitic mass] 29.3 pg Normal 27.0-33.0 [facility] Comment on above: Performed By: #### L [id number] ####[facility] (BEAKER)[address] [place] [address] MCV (RBC) [Entitic vol] 88.8 fL Normal 82.0-98.0 [facility] Comment on above: Performed By: #### L [id number] ####[facility] (BEAKER)[address] [place] [address] PLATELETS (10*3/UL) IN BLOOD AUTOMATED COUNT 181 10*3/uL Normal 150-400 [facility] Comment on above: Performed By: #### L [id number] ####[facility] (BEAKER)[address] [place] [address] RBC (Bld) [#/Vol] 5.25 10*6/uL Normal 4.20-5.70 [facility] Comment on above: Performed By: #### L [id number] ####[facility] (BEAKER)[address] [place] [address] WBC (Bld) [#/Vol] 23.51 10*3/uL High 4.00-10.60 [facility] Comment on above: Performed By: #### L [id number] ####[facility] ([facility])[address] [place] [address] NURSNOTEon 12-01-2022 NURSNOTE Normal [facility] POCT GLUCOSE METER UNSOLICIT ED RESULTSon 12-01-2022 Glucose [Mass/Vol] 204 mg/dL High 70-105 [facility] Comment on above: Order Comment: Waive d Testing in the ED is performed under the ED CLIA certificate #[id number]. Result Comment: [email or web address] Performed By: #### L [id number] ####[facility] ([facility])[address] [place] [address] Glucose [Mass/Vol] 248 mg/dL High 70-105 [facility] Comment on above: Order Comment: Waive d Testing in the ED is performed under the ED CLIA certificate #[id number]. Result Comment: [email or web address] Performed By: #### L [id number] ####[facility] ([facility])[address] [place] [address] Glucose [Mass/Vol] 270 mg/dL High 70-105 [facility] Comment on above: Order Comment: Waive d Testing in the ED is performed under the ED CLIA certificate #[id number]. Result Comment: [email or web address] Performed By: #### L [id number] ####[facility] ([facility])[address] [place] [place] [address] PROTIME-INRon 12-01-2022 INR IN PPP BY COAGULATION ASSAY 1.21 High 0.90-1.10 [facility] Comment on above: Result Comment: ACCC P [...] CHEST 1995;[id number]. Performed By: #### L [id number] ####[facility] ([employer])[address] [place] [address] PROTHROMBIN TIME (PT) IN PPP BY COAGULATION ASSAY 15.3 Seconds High 12.3-14.8 [facility] Comment on above: Performed By: #### L [id number] ####[facility] (BEBuilt In)[address] [place] [address] 30on 11-30-2022 30 Normal [facility] 30 Normal [facility] BASIC METABOLIC PANELon 11-12 Anion gap [Moles/Vol] 10 mmol/L Normal 7-20 [facility] Comment on above: Performed By: #### L [id number] ####[facility] (BEBuilt In)[address] [place] [address] Calcium [Mass/Vol] 7.1 mg/dL Low 8.6-10.3 [facility] Comment on above: Performed By: #### L [id number] ####[facility] (BEBuilt In)[address] [place] [address] Chloride [Moles/Vol] 110 mmol/L High 98-107 [facility] Comment on above: Performed By: #### L [id number] ####[facility] (BEBuilt In)[address] [place] [address] CO2 [Moles/Vol] 22 mmol/L Normal 21-31 [facility] Comment on above: Performed By: #### L [id number] ####[facility] ([facility])[address] [place] [address] Creatinine [Mass/Vol] 1.25 mg/dL Normal 0.70-1.30 [facility] Comment on above: Performed By: #### L [id number] ####[facility] ([facility])[address] [place] [address] GLOMERULAR FILTRATION RATE ML/MIN/1.73 SQ M.PREDICTED 61.9 mL/min/1.73m*2 Normal >60.0 [facility] Comment on above: Result Comment: The [facility]???s estimated glomerular filtration rate (eGFR) will no [...] of individuals. Performed By: #### L [id number] ####[facility] ([facility])[address] [place] [address] Glucose [Mass/Vol] 211 mg/dL High 70-100 [facility] Comment on above: Performed By: #### L [id number] ####[facility] ([facility])[address] [place] [address] Potassium [Moles/Vol] 3.6 mmol/L Normal 3.5-5.1 [facility] Comment on above: Performed By: #### L [id number] ####[facility] ([facility])[address] [place] [address] Sodium [Moles/Vol] 138 mmol/L Normal 136-145 [facility] Comment on above: Performed By: #### L [id number] ####[facility] (BEAKER)[address] [place] [address] Urea nitrogen [Mass/Vol] 17 mg/dL Normal 7-25 [facility] Comment on above: Performed By: #### L [id number] ####[facility] (BEAKER)[address] [place] [address] UREA NITROGEN/CREATININE (MASS RATIO) IN SER/PLAS 13.6 Normal [facility] Comment on above: Performed By: #### L [id number] ####[facility] (BEAKER)[address] [place] [address] Anion gap [Moles/Vol] 10 mmol/L Normal 7-20 [facility] Comment on above: Performed By: #### L [id number] ####[facility] (BEAKER)[address] [place] [address] Calcium [Mass/Vol] 9.5 mg/dL Normal 8.6-10.3 [facility] Comment on above: Performed By: #### L [id number] ####[facility] (BEAKER)[address] [place] [address] Chloride [Moles/Vol] 102 mmol/L Normal 98-107 [facility] Comment on above: Performed By: #### L [id number] ####[facility] (BEAKER)[address] [place] [address] CO2 [Moles/Vol] 27 mmol/L Normal 21-31 [facility] Comment on above: Performed By: #### L [id number] ####[facility] (BEAKER)[address] [place] [address] Creatinine [Mass/Vol] 1.39 mg/dL High 0.70-1.30 [facility] Comment on above: Performed By: #### L [id number] ####[facility] (BEAKER)[address] [place] [address] GLOMERULAR FILTRATION RATE ML/MIN/1.73 SQ M.PREDICTED 54.5 mL/min/1.73m*2 Low >60.0 [facility] Comment on above: Result Comment: [facility]???s estimated glomerular filtration rate (eGFR) will no [...] of individuals. Performed By: #### L [id number] ####[facility] (BEAKER)[address] [place] [address] Glucose [Mass/Vol] 171 mg/dL High 70-100 [facility] Comment on above: Performed By: #### L [id number] ####[facility] (BEAKER)[address] [place] [address] Potassium [Moles/Vol] 4.0 mmol/L Normal 3.5-5.1 [facility] Comment on above: Performed By: #### L [id number] ####[facility] (BEAKER)[address] [place] [address] Sodium [Moles/Vol] 135 mmol/L Low 136-145 [facility] Comment on above: Performed By: #### L [id number] ####[facility] (BEAKER)[address] [place] [address] Urea nitrogen [Mass/Vol] 20 mg/dL Normal 7-25 [facility] Comment on above: Performed By: #### L [id number] ####[facility] (BEAKER)[address] [place] [address] UREA NITROGEN/CREATININE (MASS RATIO) IN SER/PLAS 14.4 Normal [facility] Comment on above: Performed By: #### L [id number] ####[facility] (BEAKER)[address] [place] [address] CBCon 11-30-2022 Erythrocyte distribution width (RBC) [Ratio] 14.2 % Normal 11.5-15.0 [facility] Comment on above: Performed By: #### L [id number] ####[facility] (BEAKER)[address] [place] [address] ERYTHROCYTE MEAN CORPUSCULAR HEMOGLOBIN CONCENTRATION (G/DL) BY AUTOMATED 33.3 g/dL Normal 32.0-35.0 [facility] Comment on above: Performed By: #### L [id number] ####[facility] [place] [address] Hematocrit (Bld) [Volume fraction] 41.7 % Normal 39.0-55.0 [facility] Comment on above: Performed By: #### L [id number] ####[facility] [place] [address] Hemoglobin (Bld) [Mass/Vol] 13.9 g/dL Normal 13.0-17.0 [facility] Comment on above: Performed By: #### L [id number] ####[facility] [place] [address] MCH (RBC) [Entitic mass] 29.5 pg Normal 27.0-33.0 [facility] Comment on above: Performed By: #### L [id number] ####[facility] (BEAKER)[address] [place] [address] MCV (RBC) [Entitic vol] 88.5 fL Normal 82.0-98.0 [facility] Comment on above: Performed By: #### L [id number] ####[facility] (BEAKER)[address] [place] [address] PLATELETS (10*3/UL) IN BLOOD AUTOMATED COUNT 183 10*3/uL Normal 150-400 [facility] Comment on above: Performed By: #### L [id number] ####[facility] (BEAKER)[address] [place] [address] RBC (Bld) [#/Vol] 4.71 10*6/uL Normal 4.20-5.70 [facility] Comment on above: Performed By: #### L [id number] ####[facility] (BEAKER)[address] [place] [address] WBC (Bld) [#/Vol] 8.24 10*3/uL Normal 4.00-10.60 [facility] Comment on above: Performed By: #### L [id number] ####[facility] (BEAKER)[address] [place] [address] CBC WITH AUTO DIFFERENTIALon 11-30-2022 Basophils (Bld) [#/Vol] 0.02 10*3/uL Normal 0.00-0.20 [facility] Comment on above: Performed By: #### L [id number] ####[facility] (BEAKER)[address] [place] [address] Basophils/100 WBC (Bld) 0.2 % Normal 0.0-1.0 [facility] Comment on above: Performed By: #### L [id number] ####[facility] (BEAKER)[address] [place] [address] Eosinophils (Bld) [#/Vol] 0.11 10*3/uL Normal 0.00-0.50 [facility] Comment on above: Performed By: #### L [id number] ####[facility] (BEAKER)[address] [place] [address] Eosinophils/100 WBC (Bld) 1.2 % Normal 0.0-6.0 [facility] Comment on above: Performed By: #### L [id number] ####[facility] (BEAKER)[address] [place] [address] Erythrocyte distribution width (RBC) [Ratio] 14.5 % Normal 11.5-15.0 [facility] Comment on above: Performed By: #### L [id number] ####[facility] (BEAKER)[address] [place] [address] ERYTHROCYTE MEAN CORPUSCULAR HEMOGLOBIN CONCENTRATION (G/DL) BY AUTOMATED 33.1 g/dL Normal 32.0-35.0 [facility] Comment on above: Performed By: #### L [id number] ####[facility] (BEAKER)[address] [place] [address] Hematocrit (Bld) [Volume fraction] 37.2 % Low 39.0-55.0 [facility] Comment on above: Performed By: #### L [id number] ####[facility] ([facility])[address] [place] [address] Hemoglobin (Bld) [Mass/Vol] 12.3 g/dL Low 13.0-17.0 [facility] Comment on above: Performed By: #### L [id number] ####[facility] ([facility])[address] [place] [address] Immature granulocytes (Bld) [#/Vol] 0.06 10*3/uL Normal 0.00-0.20 [facility] Comment on above: Performed By: #### L [id number] ####[facility] ([facility])[address] [place] [address] Immature granulocytes/100 WBC (Bld) 0.6 % Normal 0.0-1.0 [facility] Comment on above: Performed By: #### L [id number] ####[facility] [place] [address] Lymphocytes (Bld) [#/Vol] 0.97 10*3/uL Low 1.20-4.00 [facility] Comment on above: Performed By: #### L [id number] ####[facility] [place] [address] Lymphocytes/100 WBC (Bld) 10.3 % Low 20.0-45.0 [facility] Comment on above: Performed By: #### L [id number] ####[facility] (BEAKER)[address] [place] [address] MCH (RBC) [Entitic mass] 29.5 pg Normal 27.0-33.0 [facility] Comment on above: Performed By: #### L [id number] ####[facility] (BEAKER)[address] [place] [address] MCV (RBC) [Entitic vol] 89.2 fL Normal 82.0-98.0 [facility] Comment on above: Performed By: #### L [id number] ####[facility] (BEAKER)[address] [place] [address] Monocytes (Bld) [#/Vol] 0.78 10*3/uL Normal 0.10-1.00 [facility] Comment on above: Performed By: #### L [id number] ####[facility] (BEAKER)[address] [place] [address] Monocytes/100 WBC (Bld) 8.3 % Normal 5.0-12.0 [facility] Comment on above: Performed By: #### L [id number] ####[facility] (BEAKER)[address] [place] [address] Neutrophils (Bld) [#/Vol] 7.48 10*3/uL Normal 1.60-7.60 [facility] Comment on above: Performed By: #### L [id number] ####[facility] (BEAKER)[address] [place] [address] Neutrophils/100 WBC (Bld) 79.4 % High 40.0-72.0 [facility] Comment on above: Performed By: #### L [id number] ####[facility] (BEAKER)[address] [place] [address] NRBC (PER 100 WBCS) BY AUTOMATED COUNT 0.0 % Normal 0 [facility] Comment on above: Performed By: #### L [id number] ####[facility] ([facility])[address] [place] [address] PLATELETS (10*3/UL) IN BLOOD AUTOMATED COUNT 172 10*3/uL Normal 150-400 [facility] Comment on above: Performed By: #### L [id number] ####[facility] ([facility])[address] [place] [address] RBC (Bld) [#/Vol] 4.17 10*6/uL Low 4.20-5.70 [facility] Comment on above: Performed By: #### L [id number] ####[facility] ([facility])[address] [place] [address] WBC (Bld) [#/Vol] 9.42 10*3/uL Normal 4.00-10.60 [facility] Comment on above: Performed By: #### L [id number] ####[facility] ([facility])[address] [place] [address] CTA ABDOMEN PELVIS W AND/OR WO IV CONTRASTon 11-30-2022 CTA ABDOMEN PELVIS W AND/OR WO IV CONTRAST Normal [facility] CTA CHEST W AND/OR WO IV CON TRASTon 11-30-2022 CTA CHEST W AND/OR WO IV CONTRAST Normal [facility] DSon 11-30-2022 DS This report has been cancelled. Normal [facility] NURSNOTEon 11-30-2022 NURSNOTE Normal [facility] NURSNOTE Normal [facility] POCT GLUCOSE METER UNSOLICIT ED RESULTSon 11-30-2022 Glucose [Mass/Vol] 228 mg/dL High 70-105 [facility] Comment on above: Order Comment: Waive d Testing in the ED is performed under the ED CLIA certificate #[id number]. Result Comment: [email or web address] Performed By: #### L [id number] ####[facility] ([facility])[address] [place] [address] Glucose [Mass/Vol] 228 mg/dL High 70-105 [facility] Comment on above: Order Comment: Waive d Testing in the ED is performed under the ED CLIA certificate #[id number]. Result Comment: [email or web address] Performed By: #### L [id number] ####[facility] ([facility])[address] [place] [address] Glucose [Mass/Vol] 219 mg/dL High 70-105 [facility] Comment on above: Order Comment: Waive d Testing in the ED is performed under the ED CLIA certificate #[id number]. Result Comment: [email or web address] Performed By: #### L [id number] ####[facility] ([facility])[address] [place] [address] Glucose [Mass/Vol] 186 mg/dL High 70-105 [facility] Comment on above: Order Comment: Waive d Testing in the ED is performed under the ED CLIA certificate #[id number]. Result Comment: [email or web address] Performed By: #### L [id number] ####[facility] ([facility])[address] [place] [address] Glucose [Mass/Vol] 217 mg/dL High 70-105 [facility] Comment on above: Order Comment: Waive d Testing in the ED is performed under the ED CLIA certificate #[id number]. Result Comment: [email or web address] Performed By: #### L [id number] ####[facility] ([facility])[address] [place] [address] Glucose [Mass/Vol] 175 mg/dL High 70-105 [facility] Comment on above: Order Comment: Waive d Testing in the ED is performed under the ED CLIA certificate #[id number]. Result Comment: [email or web address] Performed By: #### L [id number] ####[facility] ([facility])[address] [place] [address] TROPONIN Ion 11-30-2022 Troponin I.cardiac [Mass/Vol] 0.05 ng/mL High 0.00-0.04 [facility] Comment on above: Performed By: #### L [id number] ####[facility] ([facility])[address] [place] [address] 30on 11-29-2022 30 Normal [facility] 30 Normal [facility] 30 Normal [facility] ANESon 11-29-2022 ANES Normal [facility] ANTI-XA (HEPARIN LEVEL)on HEPARIN UNFRACTIONATED (U/ML) IN PPP BY CHROMOGENIC METHOD 0.42 IU/mL Normal 0.3-0.7 [facility] Comment on above: Result Comment: Maricruz roxaban and Apixaban will interfere with the anti Xa assay used to monitor UFH and LMWH. Performed By: #### L [id number] ####[facility] ([facility])[address] [place] [address] HEPARIN UNFRACTIONATED (U/ML) IN PPP BY CHROMOGENIC METHOD 0.74 IU/mL High 0.3-0.7 [facility] Comment on above: Result Comment: [place] roxaban and Apixaban will interfere with the anti Xa assay used to monitor UFH and LMWH. Performed By: #### L [id number] ####[facility] ([facility])[address] [place] [address] BASIC METABOLIC PANELon 11-11 Anion gap [Moles/Vol] 9 mmol/L Normal 7-20 [facility] Comment on above: Performed By: #### L [id number] ####[facility] ([facility])[address] [place] [address] Calcium [Mass/Vol] 9.5 mg/dL Normal 8.6-10.3 [facility] Comment on above: Performed By: #### L [id number] ####[facility] ([facility])[address] [place] [address] Chloride [Moles/Vol] 103 mmol/L Normal 98-107 [facility] Comment on above: Performed By: #### L [id number] ####[facility] ([facility])[address] [place] [address] CO2 [Moles/Vol] 28 mmol/L Normal 21-31 [facility] Comment on above: Performed By: #### L [id number] ####[facility] ([facility])[address] [place] [address] Creatinine [Mass/Vol] 1.44 mg/dL High 0.70-1.30 [facility] Comment on above: Performed By: #### L [id number] ####[facility] ([facility])[address] [place] [address] GLOMERULAR FILTRATION RATE ML/MIN/1.73 SQ M.PREDICTED 52.3 mL/min/1.73m*2 Low >60.0 [facility] Comment on above: Result Comment: The [facility]???s estimated glomerular filtration rate (eGFR) will no [...] of individuals. Performed By: #### L [id number] ####[facility] ([facility])[address] [place] [address] Glucose [Mass/Vol] 178 mg/dL High 70-100 [facility] Comment on above: Performed By: #### L [id number] ####[facility] ([facility])[address] [place] [address] Potassium [Moles/Vol] 4.1 mmol/L Normal 3.5-5.1 [facility] Comment on above: Performed By: #### L [id number] ####[facility] ([facility])[address] [place] [address] Sodium [Moles/Vol] 136 mmol/L Normal 136-145 [facility] Comment on above: Performed By: #### L [id number] ####[facility] ([facility])[address] [place] [address] Urea nitrogen [Mass/Vol] 17 mg/dL Normal 7-25 [facility] Comment on above: Performed By: #### L [id number] ####[facility] ([facility])[address] [place] [address] UREA NITROGEN/CREATININE (MASS RATIO) IN SER/PLAS 11.8 Normal [facility] Comment on above: Performed By: #### L [id number] ####[facility] ([facility])[address] [place] [address] CBCon 11-29-2022 Erythrocyte distribution width (RBC) [Ratio] 14.4 % Normal 11.5-15.0 [facility] Comment on above: Performed By: #### L [id number] ####[facility] ([facility])[address] [place] [address] ERYTHROCYTE MEAN CORPUSCULAR HEMOGLOBIN CONCENTRATION (G/DL) BY AUTOMATED 34.0 g/dL Normal 32.0-35.0 [facility] Comment on above: Performed By: #### L [id number] ####[facility] ([facility])[address] [place] [address] Hematocrit (Bld) [Volume fraction] 41.5 % Normal 39.0-55.0 [facility] Comment on above: Performed By: #### L [id number] ####[facility] ([facility])[address] [place] [address] Hemoglobin (Bld) [Mass/Vol] 14.1 g/dL Normal 13.0-17.0 [facility] Comment on above: Performed By: #### L [id number] ####[facility] ([facility])[address] [place] [address] MCH (RBC) [Entitic mass] 29.6 pg Normal 27.0-33.0 [facility] Comment on above: Performed By: #### L [id number] ####[facility] ([facility])[address] [place] [address] MCV (RBC) [Entitic vol] 87.2 fL Normal 82.0-98.0 [facility] Comment on above: Performed By: #### L [id number] ####[facility] [place] [address] PLATELETS (10*3/UL) IN BLOOD AUTOMATED COUNT 180 10*3/uL Normal 150-400 [facility] Comment on above: Performed By: #### L [id number] ####[facility] ([facility])[address] [place] [address] RBC (Bld) [#/Vol] 4.76 10*6/uL Normal 4.20-5.70 [facility] Comment on above: Performed By: #### L [id number] ####[facility] ([facility])[address] [place] [address] WBC (Bld) [#/Vol] 6.10 10*3/uL Normal 4.00-10.60 [facility] Comment on above: Performed By: #### L [id number] ####[facility] ([facility])[address] [address] CONSULTon 11-29-2022 CONSULT [facility] HPon 11-29-2022 HP H&P reviewed. The patient was examined and there are no changes to the H&P. [facility] POCT GLUCOSE METER UNSOLICIT ED RESULTSon 11-29-2022 Glucose [Mass/Vol] 168 mg/dL High 70-105 [facility] Comment on above: Order Comment: Waive d Testing in the ED is performed under the ED CLIA certificate #[id number]. Result Comment: [email or web address] Performed By: #### L [id number] ####[facility] ([facility])[address] [place] [address] Glucose [Mass/Vol] 122 mg/dL High 70-105 [facility] Comment on above: Order Comment: Waive d Testing in the ED is performed under the ED CLIA certificate #[id number]. Result Comment: [email or web address] Performed By: #### L [id number] ####[facility] ([facility])[address] [place] [address] Glucose [Mass/Vol] 144 mg/dL High 70-105 [facility] Comment on above: Order Comment: Waive d Testing in the ED is performed under the ED CLIA certificate #[id number]. Result Comment: [email or web address] Performed By: #### L [id number] ####[facility] ([facility])[address] [place] [address] Glucose [Mass/Vol] 157 mg/dL High 70-105 [facility] Comment on above: Order Comment: Waive d Testing in the ED is performed under the ED CLIA certificate #[id number]. Result Comment: [email or web address] Performed By: #### L [id number] ####[facility] ([facility])[address] [place] [address] 30on 11-28-2022 30 Normal [facility] 30 Normal [facility] 30 [facility] ANTI-XA (HEPARIN LEVEL)on HEPARIN UNFRACTIONATED (U/ML) IN PPP BY CHROMOGENIC METHOD 0.47 IU/mL Normal 0.3-0.7 [facility] Comment on above: Result Comment: Maricruz roxaban and Apixaban will interfere with the anti Xa assay used to monitor UFH and LMWH. Performed By: #### L [id number] ####[facility] ([facility])[address] [place] [address] HEPARIN UNFRACTIONATED (U/ML) IN PPP BY CHROMOGENIC METHOD 0.40 IU/mL Normal 0.3-0.7 [facility] Comment on above: Result Comment: [place] roxaban and Apixaban will interfere with the anti Xa assay used to monitor UFH and LMWH. Performed By: #### L [id number] ####[facility] ([facility])[address] [place] [address] HEPARIN UNFRACTIONATED (U/ML) IN PPP BY CHROMOGENIC METHOD 0.23 IU/mL Low 0.3-0.7 [facility] Comment on above: Result Comment: [place] roxaban and Apixaban will interfere with the anti Xa assay used to monitor UFH and LMWH. Performed By: #### L [id number] ####[facility] ([facility])[address] [place] [address] HEPARIN UNFRACTIONATED (U/ML) IN PPP BY CHROMOGENIC METHOD 0.10 IU/mL Invalid Interpretation Code 0.3-0.7 [facility] Comment on above: Result Comment: [place] roxaban and Apixaban will interfere with the anti Xa assay used to monitor UFH and LMWH. Performed By: #### L [id number] ####[facility] ([facility])[address] [place] [address] BASIC METABOLIC PANELon 11-11 Anion gap [Moles/Vol] 10 mmol/L Normal 7-20 [facility] Comment on above: Performed By: #### L [id number] ####[facility] [place] [address] Calcium [Mass/Vol] 8.9 mg/dL Normal 8.6-10.3 [facility] Comment on above: Performed By: #### L [id number] ####[facility] [place] [address] Chloride [Moles/Vol] 105 mmol/L Normal 98-107 [facility] Comment on above: Performed By: #### L [id number] ####[facility] [place] [address] CO2 [Moles/Vol] 25 mmol/L Normal 21-31 [facility] Comment on above: Performed By: #### L [id number] ####[facility] [place] [address] Creatinine [Mass/Vol] 1.22 mg/dL Normal 0.70-1.30 [facility] Comment on above: Performed By: #### L [id number] ####[facility] [place] [address] GLOMERULAR FILTRATION RATE ML/MIN/1.73 SQ M.PREDICTED 63.8 mL/min/1.73m*2 Normal >60.0 [facility] Comment on above: Result Comment: The [facility]???s estimated glomerular filtration rate (eGFR) will no [...] of individuals. Performed By: #### L [id number] ####[facility] ([facility])[address] [place] [address] Glucose [Mass/Vol] 153 mg/dL High 70-100 [facility] Comment on above: Performed By: #### L [id number] ####[facility] ([facility])[address] [place] [address] Potassium [Moles/Vol] 3.8 mmol/L Normal 3.5-5.1 [facility] Comment on above: Performed By: #### L [id number] ####[facility] ([facility])[address] [place] [address] Sodium [Moles/Vol] 136 mmol/L Normal 136-145 [facility] Comment on above: Performed By: #### L [id number] ####[facility] ([facility])[address] [place] [address] Urea nitrogen [Mass/Vol] 14 mg/dL Normal 7-25 [facility] Comment on above: Performed By: #### L [id number] ####[facility] ([facility])[address] [place] [address] UREA NITROGEN/CREATININE (MASS RATIO) IN SER/PLAS 11.5 Normal [facility] Comment on above: Performed By: #### L [id number] ####[facility] ([facility])[address] [place] [address] CBCon 11-28-2022 Erythrocyte distribution width (RBC) [Ratio] 14.3 % Normal 11.5-15.0 [facility] Comment on above: Performed By: #### L [id number] ####[facility] [place] [address] ERYTHROCYTE MEAN CORPUSCULAR HEMOGLOBIN CONCENTRATION (G/DL) BY AUTOMATED 33.2 g/dL Normal 32.0-35.0 [facility] Comment on above: Performed By: #### L [id number] ####[facility] [place] [address] Hematocrit (Bld) [Volume fraction] 40.4 % Normal 39.0-55.0 [facility] Comment on above: Performed By: #### L [id number] ####[facility] ([facility])[address] [place] [address] Hemoglobin (Bld) [Mass/Vol] 13.4 g/dL Normal 13.0-17.0 [facility] Comment on above: Performed By: #### L [id number] ####[facility] ([facility])[address] [place] [address] MCH (RBC) [Entitic mass] 29.3 pg Normal 27.0-33.0 [facility] Comment on above: Performed By: #### L [id number] ####[facility] ([facility])[address] [place] [address] MCV (RBC) [Entitic vol] 88.2 fL Normal 82.0-98.0 [facility] Comment on above: Performed By: #### L [id number] ####[facility] [place] [address] PLATELETS (10*3/UL) IN BLOOD AUTOMATED COUNT 194 10*3/uL Normal 150-400 [facility] Comment on above: Performed By: #### L [id number] ####[facility] [place] [address] RBC (Bld) [#/Vol] 4.58 10*6/uL Normal 4.20-5.70 [facility] Comment on above: Performed By: #### L [id number] ####[facility] ([facility])[address] [place] [address] WBC (Bld) [#/Vol] 7.10 10*3/uL Normal 4.00-10.60 [facility] Comment on above: Performed By: #### L [id number] ####[facility] ([facility])[address] [place] [address] CONSULTon 11-28-2022 CONSULT Normal [facility] MAGNESIUMon 11-28-2022 Magnesium [Mass/Vol] 1.7 mg/dL Low 1.9-2.7 [facility] Comment on above: Performed By: #### L [id number] ####[facility] ([facility])[address] [place] [address] NURSNOTEon 11-28-2022 NURSNOTE Normal [facility] PHOSPHORUSon 11-28-2022 Magnesium [Mass/Vol] 3.8 mg/dL Normal 2.5-5.0 [facility] Comment on above: Performed By: #### L [id number] ####[facility] ([facility])[address] [place] [address] POCT GLUCOSE METER UNSOLICIT ED RESULTSon 11-28-2022 Glucose [Mass/Vol] 202 mg/dL High 70-105 [facility] Comment on above: Order Comment: Waive d Testing in the ED is performed under the ED CLIA certificate #[id number]. Result Comment: [email or web address] Performed By: #### L [id number] ####[facility] ([facility])[address] [place] [address] Glucose [Mass/Vol] 110 mg/dL High 70-105 [facility] Comment on above: Order Comment: Waive d Testing in the ED is performed under the ED CLIA certificate #[id number]. Result Comment: [email or web address] Performed By: #### L [id number] ####[facility] ([facility])[address] [place] [address] Glucose [Mass/Vol] 190 mg/dL High 70-105 [facility] Comment on above: Order Comment: Waive d Testing in the ED is performed under the ED CLIA certificate #[id number]. Result Comment: [email or web address] Performed By: #### L [id number] ####[facility] [place] [address] Glucose [Mass/Vol] 147 mg/dL High 70-105 [facility] Comment on above: Order Comment: Waive d Testing in the ED is performed under the ED CLIA certificate #[id number]. Result Comment: [email or web address] Performed By: #### L [id number] ####[facility] [place] [address] 30on 11-27-2022 30 Normal [facility] 30 Normal [facility] 30 Normal [facility] ANESon 11-27-2022 ANES [facility] ANTI-XA (HEPARIN LEVEL)on HEPARIN UNFRACTIONATED (U/ML) IN PPP BY CHROMOGENIC METHOD 0.49 IU/mL Normal 0.3-0.7 [facility] Comment on above: Result Comment: Maricruz roxaban and Apixaban will interfere with the anti Xa assay used to monitor UFH and LMWH. Performed By: #### L [id number] ####[facility] ([facility])[address] [place] [address] HEPARIN UNFRACTIONATED (U/ML) IN PPP BY CHROMOGENIC METHOD 0.50 IU/mL Normal 0.3-0.7 [facility] Comment on above: Result Comment: [place] roxaban and Apixaban will interfere with the anti Xa assay used to monitor UFH and LMWH. Performed By: #### L [id number] ####[facility] ([facility])[address] [place] [address] BASIC METABOLIC PANELon 11-11 Anion gap [Moles/Vol] 9 mmol/L Normal 7-20 [facility] Comment on above: Performed By: #### L [id number] ####[facility] ([facility])[address] [place] [address] Calcium [Mass/Vol] 8.9 mg/dL Normal 8.6-10.3 [facility] Comment on above: Performed By: #### L [id number] ####[facility] ([facility])[address] [place] [address] Chloride [Moles/Vol] 104 mmol/L Normal 98-107 [facility] Comment on above: Performed By: #### L [id number] ####[facility] ([facility])[address] [place] [address] CO2 [Moles/Vol] 25 mmol/L Normal 21-31 [facility] Comment on above: Performed By: #### L [id number] ####[facility] ([facility])[address] [place] [address] Creatinine [Mass/Vol] 1.34 mg/dL High 0.70-1.30 [facility] Comment on above: Performed By: #### L [id number] ####[facility] ([facility])[address] [place] [address] GLOMERULAR FILTRATION RATE ML/MIN/1.73 SQ M.PREDICTED 57.0 mL/min/1.73m*2 Low >60.0 [facility] Comment on above: Result Comment: The [facility]???s estimated glomerular filtration rate (eGFR) will no [...] of individuals. Performed By: #### L [id number] ####[facility] ([facility])[address] [place] [address] Glucose [Mass/Vol] 210 mg/dL High 70-100 [facility] Comment on above: Performed By: #### L [id number] ####[facility] ([facility])[address] [place] [address] Potassium [Moles/Vol] 4.1 mmol/L Normal 3.5-5.1 [facility] Comment on above: Performed By: #### L [id number] ####[facility] ([facility])[address] [place] [address] Sodium [Moles/Vol] 134 mmol/L Low 136-145 [facility] Comment on above: Performed By: #### L [id number] ####[facility] ([facility])[address] [place] [address] Urea nitrogen [Mass/Vol] 18 mg/dL Normal 7-25 [facility] Comment on above: Performed By: #### L [id number] ####[facility] ([facility])[address] [place] [address] UREA NITROGEN/CREATININE (MASS RATIO) IN SER/PLAS 13.4 Normal [facility] Comment on above: Performed By: #### L [id number] ####[facility] ([facility])[address] [place] [address] CBCon 11-27-2022 Erythrocyte distribution width (RBC) [Ratio] 14.2 % Normal 11.5-15.0 [facility] Comment on above: Performed By: #### L [id number] ####[facility] ([facility])[address] [place] [address] ERYTHROCYTE MEAN CORPUSCULAR HEMOGLOBIN CONCENTRATION (G/DL) BY AUTOMATED 33.3 g/dL Normal 32.0-35.0 [facility] Comment on above: Performed By: #### L [id number] ####[facility] ([facility])[address] [place] [address] Hematocrit (Bld) [Volume fraction] 41.5 % Normal 39.0-55.0 [facility] Comment on above: Performed By: #### L [id number] ####[facility] ([facility])[address] [place] [address] Hemoglobin (Bld) [Mass/Vol] 13.8 g/dL Normal 13.0-17.0 [facility] Comment on above: Performed By: #### L [id number] ####[facility] ([facility])[address] [place] [address] MCH (RBC) [Entitic mass] 28.9 pg Normal 27.0-33.0 [facility] Comment on above: Performed By: #### L [id number] ####[facility] ([facility])[address] [place] [address] MCV (RBC) [Entitic vol] 86.8 fL Normal 82.0-98.0 [facility] Comment on above: Performed By: #### L [id number] ####[facility] ([facility])[address] [place] [address] PLATELETS (10*3/UL) IN BLOOD AUTOMATED COUNT 187 10*3/uL Normal 150-400 [facility] Comment on above: Performed By: #### L [id number] ####[facility] ([facility] [facility] [place] [address] RBC (Bld) [#/Vol] 4.78 10*6/uL Normal 4.20-5.70 [facility] Comment on above: Performed By: #### L [id number] ####[facility] ([facility])[address] [place] [address] WBC (Bld) [#/Vol] 6.16 10*3/uL Normal 4.00-10.60 [facility] Comment on above: Performed By: #### L [id number] ####[facility] [place] [address] HPon 11-27-2022 HP Normal [facility] MAGNESIUMon 11-27-2022 Magnesium [Mass/Vol] 1.8 mg/dL Low 1.9-2.7 [facility] Comment on above: Performed By: #### L [id number] ####[facility] [place] [address] PHOSPHORUSon 11-27-2022 Magnesium [Mass/Vol] 3.4 mg/dL Normal 2.5-5.0 [facility] Comment on above: Performed By: #### L [id number] ####[facility] ([facility])[address] [place] [address] POCT GLUCOSE METER UNSOLICIT ED RESULTSon 11-27-2022 Glucose [Mass/Vol] 393 mg/dL High 70-105 [facility] Comment on above: Order Comment: Waive d Testing in the ED is performed under the ED CLIA certificate #[id number]. Result Comment: crystal philip Performed By: #### L [id number] ####[facility] ([facility])[address] [place] [address] Glucose [Mass/Vol] 142 mg/dL High 70-105 [facility] Comment on above: Order Comment: Waive d Testing in the ED is performed under the ED CLIA certificate #[id number]. Result Comment: [email or web address] yanez Performed By: #### L [id number] ####[facility] ([facility])[address] [place] [address] Glucose [Mass/Vol] 147 mg/dL High 70-105 [facility] Comment on above: Order Comment: Waive d Testing in the ED is performed under the ED CLIA certificate #[id number]. Result Comment: silvia [place] Performed By: #### L [id number] ####[facility] [place] [address] Glucose [Mass/Vol] 163 mg/dL High 70-105 [facility] Comment on above: Order Comment: Waive d Testing in the ED is performed under the ED CLIA certificate #[id number]. Result Comment: silvia [place] Performed By: #### L [id number] ####[facility] ([facility])[address] [place] [address] 30on 11-26-2022 30 Normal [facility] 30 Normal [facility] ANTI-XA (HEPARIN LEVEL)on HEPARIN UNFRACTIONATED (U/ML) IN PPP BY CHROMOGENIC METHOD 0.57 IU/mL Normal 0.3-0.7 [facility] Comment on above: Result Comment: Maricruz roxaban and Apixaban will interfere with the anti Xa assay used to monitor UFH and LMWH. Performed By: #### L [id number] ####[facility] ([facility])[address] [place] [address] HEPARIN UNFRACTIONATED (U/ML) IN PPP BY CHROMOGENIC METHOD 0.96 IU/mL Critically high 0.3-0.7 [facility] Comment on above: Result Comment: Maricruz roxaban and Apixaban will interfere with the anti Xa assay used to monitor UFH and LMWH. Performed By: #### L [id number] ####[facility] ([facility])[address] [place] [address] HEPARIN UNFRACTIONATED (U/ML) IN PPP BY CHROMOGENIC METHOD 0.68 IU/mL Normal 0.3-0.7 [facility] Comment on above: Order Comment: Check anti-Xa level every 6 hours while on heparin infusion, or per protocol. Result Comment: [place] roxaban and Apixaban will interfere with the anti Xa assay used to monitor UFH and LMWH. Performed By: #### L [id number] ####[facility] ([facility])[address] [place] [address] HEPARIN UNFRACTIONATED (U/ML) IN PPP BY CHROMOGENIC METHOD 0.66 IU/mL Normal 0.3-0.7 [facility] Comment on above: Order Comment: Check anti-Xa level every 6 hours while on heparin infusion, or per protocol. Result Comment: Maricruz roxaban and Apixaban will interfere with the anti Xa assay used to monitor UFH and LMWH. Performed By: #### L [id number] ####[facility] ([facility])[address] [place] [address] BASIC METABOLIC PANELon 11-11 Anion gap [Moles/Vol] 8 mmol/L Normal 7-20 [facility] Comment on above: Performed By: #### L [id number] ####[facility] ([facility])[address] [place] [address] Calcium [Mass/Vol] 8.9 mg/dL Normal 8.6-10.3 [facility] Comment on above: Performed By: #### L [id number] ####[facility] ([facility])[address] [place] [address] Chloride [Moles/Vol] 106 mmol/L Normal 98-107 [facility] Comment on above: Performed By: #### L [id number] ####[facility] ([facility])[address] [place] [address] CO2 [Moles/Vol] 26 mmol/L Normal 21-31 [facility] Comment on above: Performed By: #### L [id number] ####[facility] ([facility])[address] [place] [address] Creatinine [Mass/Vol] 1.30 mg/dL Normal 0.70-1.30 [facility] Comment on above: Performed By: #### L [id number] ####[facility] ([facility])[address] [place] [address] GLOMERULAR FILTRATION RATE ML/MIN/1.73 SQ M.PREDICTED 59.1 mL/min/1.73m*2 Low >60.0 [facility] Comment on above: Result Comment: The [facility]???s estimated glomerular filtration rate (eGFR) will no [...] of individuals. Performed By: #### L [id number] ####[facility] ([facility])[address] [place] [address] Glucose [Mass/Vol] 196 mg/dL High 70-100 [facility] Comment on above: Performed By: #### L [id number] ####[facility] ([facility])[address] [place] [address] Potassium [Moles/Vol] 4.2 mmol/L Normal 3.5-5.1 [facility] Comment on above: Performed By: #### L [id number] ####[facility] ([facility])[address] [place] [address] Sodium [Moles/Vol] 136 mmol/L Normal 136-145 [facility] Comment on above: Performed By: #### L [id number] ####[facility] ([facility])[address] [place] [address] Urea nitrogen [Mass/Vol] 17 mg/dL Normal 7-25 [facility] Comment on above: Performed By: #### L [id number] ####[facility] ([facility])[address] [place] [address] UREA NITROGEN/CREATININE (MASS RATIO) IN SER/PLAS 13.1 Normal [facility] Comment on above: Performed By: #### L [id number] ####[facility] ([facility])[address] [place] [address] CBC WITH AUTO DIFFERENTIALon 11-26-2022 Basophils (Bld) [#/Vol] 0.03 10*3/uL Normal 0.00-0.20 [facility] Comment on above: Performed By: #### L [id number] ####[facility] ([facility])[address] [place] [address] Basophils/100 WBC (Bld) 0.4 % Normal 0.0-1.0 [facility] Comment on above: Performed By: #### L [id number] ####[facility] ([facility])[address] [place] [address] Eosinophils (Bld) [#/Vol] 0.21 10*3/uL Normal 0.00-0.50 [facility] Comment on above: Performed By: #### L [id number] ####[facility] ([facility])[address] [place] [address] Eosinophils/100 WBC (Bld) 3.1 % Normal 0.0-6.0 [facility] Comment on above: Performed By: #### L [id number] ####[facility] ([facility])[address] [place] [address] Erythrocyte distribution width (RBC) [Ratio] 14.3 % Normal 11.5-15.0 [facility] Comment on above: Performed By: #### L [id number] ####[facility] ([facility])[address] [place] [address] ERYTHROCYTE MEAN CORPUSCULAR HEMOGLOBIN CONCENTRATION (G/DL) BY AUTOMATED 33.4 g/dL Normal 32.0-35.0 [facility] Comment on above: Performed By: #### L [id number] ####[facility] [place] [address] Hematocrit (Bld) [Volume fraction] 42.5 % Normal 39.0-55.0 [facility] Comment on above: Performed By: #### L [id number] ####[facility] ([facility])[address] [place] [address] Hemoglobin (Bld) [Mass/Vol] 14.2 g/dL Normal 13.0-17.0 [facility] Comment on above: Performed By: #### L [id number] ####[facility] ([facility])[address] [place] [address] Immature granulocytes (Bld) [#/Vol] 0.03 10*3/uL Normal 0.00-0.20 [facility] Comment on above: Performed By: #### L [id number] ####[facility] ([facility])[address] [place] [address] Immature granulocytes/100 WBC (Bld) 0.4 % Normal 0.0-1.0 [facility] Comment on above: Performed By: #### L [id number] ####[facility] ([facility])[address] [place] [address] Lymphocytes (Bld) [#/Vol] 1.09 10*3/uL Low 1.20-4.00 [facility] Comment on above: Performed By: #### L [id number] ####[facility] ([facility])[address] [place] [address] Lymphocytes/100 WBC (Bld) 16.2 % Low 20.0-45.0 [facility] Comment on above: Performed By: #### L [id number] ####[facility] ([facility])[address] [place] [address] MCH (RBC) [Entitic mass] 29.1 pg Normal 27.0-33.0 [facility] Comment on above: Performed By: #### L [id number] ####[facility] ([facility])[address] [place] [address] MCV (RBC) [Entitic vol] 87.1 fL Normal 82.0-98.0 [facility] Comment on above: Performed By: #### L [id number] ####[facility] ([facility])[address] [place] [address] Monocytes (Bld) [#/Vol] 0.46 10*3/uL Normal 0.10-1.00 [facility] Comment on above: Performed By: #### L [id number] ####[facility] ([facility])[address] [place] [address] Monocytes/100 WBC (Bld) 6.8 % Normal 5.0-12.0 [facility] Comment on above: Performed By: #### L [id number] ####[facility] ([facility])[address] [place] [address] Neutrophils (Bld) [#/Vol] 4.90 10*3/uL Normal 1.60-7.60 [facility] Comment on above: Performed By: #### L [id number] ####[facility] ([facility])[address] [place] [address] Neutrophils/100 WBC (Bld) 73.1 % High 40.0-72.0 [facility] Comment on above: Performed By: #### L [id number] ####[facility] ([facility])[address] [place] [address] NRBC (PER 100 WBCS) BY AUTOMATED COUNT 0.0 % Normal 0 [facility] Comment on above: Performed By: #### L [id number] ####[facility] ([facility])[address] [place] [address] PLATELETS (10*3/UL) IN BLOOD AUTOMATED COUNT 201 10*3/uL Normal 150-400 [facility] Comment on above: Performed By: #### L [id number] ####[facility] ([facility])[address] [place] [address] RBC (Bld) [#/Vol] 4.88 10*6/uL Normal 4.20-5.70 [facility] Comment on above: Performed By: #### L [id number] ####[facility] ([facility])[address] [place] [address] WBC (Bld) [#/Vol] 6.72 10*3/uL Normal 4.00-10.60 [facility] Comment on above: Performed By: #### L [id number] ####[facility] ([facility])[address] [place] [address] MAGNESIUMon 11-26-2022 Magnesium [Mass/Vol] 1.7 mg/dL Low 1.9-2.7 [facility] Comment on above: Performed By: #### L [id number] ####[facility] ([facility])[address] [place] [address] NURSNOTEon 11-26-2022 NURSNOTE Normal [facility] PHOSPHORUSon 11-26-2022 Magnesium [Mass/Vol] 3.0 mg/dL Normal 2.5-5.0 [facility] Comment on above: Performed By: #### L [id number] ####[facility] ([facility])[address] [place] [place] [address] POCT GLUCOSE METER UNSOLICIT ED RESULTSon 11-26-2022 Glucose [Mass/Vol] 188 mg/dL High 70-105 [facility] Comment on above: Order Comment: Waive d Testing in the ED is performed under the ED CLIA certificate #[id number]. Result Comment: [email or web address] Performed By: #### L [id number] ####[facility] ([facility])[address] [place] [address] Glucose [Mass/Vol] 142 mg/dL High 70-105 [facility] Comment on above: Order Comment: Waive d Testing in the ED is performed under the ED CLIA certificate #[id number]. Result Comment: lukasz yanez Performed By: #### L [id number] ####[facility] ([facility])[address] [place] [address] Glucose [Mass/Vol] 201 mg/dL High 70-105 [facility] Comment on above: Order Comment: Waive d Testing in the ED is performed under the ED CLIA certificate #[id number]. Result Comment: [email or web address] Performed By: #### L [id number] ####[facility] ([facility])[address] [place] [address] Glucose [Mass/Vol] 159 mg/dL High 70-105 [facility] Comment on above: Order Comment: Waive d Testing in the ED is performed under the ED CLIA certificate #[id number]. Result Comment: [email or web address] Performed By: #### L [id number] ####[facility] ([facility])[address] [place] [address] TROPONIN Ion 11-26-2022 Troponin I.cardiac [Mass/Vol] 0.02 ng/mL Normal 0.00-0.04 [facility] Comment on above: Performed By: #### L [id number] ####[facility] ([facility])[address] [place] [address] 30on 11-25-2022 30 Normal [facility] ANTI-XA (HEPARIN LEVEL)on HEPARIN UNFRACTIONATED (U/ML) IN PPP BY CHROMOGENIC METHOD >1.00 Critically high 0.3-0.7 [facility] Comment on above: Order Comment: Check anti-Xa level every 6 hours while on heparin infusion, or per protocol. Result Comment: Maricruz roxaban and Apixaban will interfere with the anti Xa assay used to monitor UFH and LMWH. Performed By: #### L [id number] ####[facility] ([facility])[address] [place] [address] APTTon 11-25-2022 ACTIVATED PARTIAL THROMBOPLASTIN TIME IN PPP BY COAGULATION ASSAY 31.6 Seconds Normal 25.0-35.0 [facility] Comment on above: Order Comment: Basel ine aPTT before initiating heparin infusion. Result Comment: Clin ical significance of the APTT is questionable in the presence of heparin. Performed By: #### L [id number] ####[facility] ([facility])[address] [place] [address] ACTIVATED PARTIAL THROMBOPLASTIN TIME IN PPP BY COAGULATION ASSAY 32.7 Seconds Normal 25.0-35.0 [facility] Comment on above: Result Comment: Clin ical significance of the APTT is questionable in the presence of heparin. Performed By: #### L [id number] ####[facility] ([facility])[address] [place] [address] BASIC METABOLIC PANELon 11-11 Anion gap [Moles/Vol] 11 mmol/L Normal 7-20 [facility] Comment on above: Performed By: #### L [id number] ####[facility] ([facility])[address] [place] [address] Calcium [Mass/Vol] 9.2 mg/dL Normal 8.6-10.3 [facility] Comment on above: Performed By: #### L [id number] ####[facility] ([facility])[address] [place] [address] Chloride [Moles/Vol] 105 mmol/L Normal 98-107 [facility] Comment on above: Performed By: #### L [id number] ####[facility] [place] [address] CO2 [Moles/Vol] 26 mmol/L Normal 21-31 [facility] Comment on above: Performed By: #### L [id number] ####[facility] [place] [address] Creatinine [Mass/Vol] 1.21 mg/dL Normal 0.70-1.30 [facility] Comment on above: Performed By: #### L [id number] ####[facility] ([facility])[address] [place] [address] GLOMERULAR FILTRATION RATE ML/MIN/1.73 SQ M.PREDICTED 64.4 mL/min/1.73m*2 Normal >60.0 [facility] Comment on above: Result Comment: The [facility]???s estimated glomerular filtration rate (eGFR) will no [...] of individuals. Performed By: #### L [id number] ####[facility] [place] [address] Glucose [Mass/Vol] 200 mg/dL High 70-100 [facility] Comment on above: Performed By: #### L [id number] ####[facility] [place] [address] Potassium [Moles/Vol] 3.8 mmol/L Normal 3.5-5.1 [facility] Comment on above: Performed By: #### L [id number] ####[facility] [place] [address] Sodium [Moles/Vol] 138 mmol/L Normal 136-145 [facility] Comment on above: Performed By: #### L [id number] ####[facility] [place] [address] Urea nitrogen [Mass/Vol] 18 mg/dL Normal 7-25 [facility] Comment on above: Performed By: #### L [id number] ####[facility] ([facility])[address] [place] [address] UREA NITROGEN/CREATININE (MASS RATIO) IN SER/PLAS 14.9 Normal [facility] Comment on above: Performed By: #### L [id number] ####[facility] ([facility])[address] [place] [address] CALCIUM, IONIZEDon CALCIUM IONIZED (MMOL/L) IN BLOOD 1.16 mmol/L Normal 1.15-1.33 [facility] Comment on above: Performed By: #### C ALCIUM, IONIZED ####[facility] [id number] [place] [address] [place] CBC WITH AUTO DIFFERENTIALon 11-25-2022 Basophils (Bld) [#/Vol] 0.03 10*3/uL Normal 0.00-0.20 [facility] Comment on above: Performed By: #### L [id number] ####[facility] ([facility])[address] [place] [address] Basophils/100 WBC (Bld) 0.5 % Normal 0.0-1.0 [facility] Comment on above: Performed By: #### L [id number] ####[facility] ([facility])[address] [place] [address] Eosinophils (Bld) [#/Vol] 0.15 10*3/uL Normal 0.00-0.50 [facility] Comment on above: Performed By: #### L [id number] ####[facility] ([facility])[address] [place] [address] Eosinophils/100 WBC (Bld) 2.3 % Normal 0.0-6.0 [facility] Comment on above: Performed By: #### L [id number] ####[facility] ([facility])[address] [place] [address] Erythrocyte distribution width (RBC) [Ratio] 14.1 % Normal 11.5-15.0 [facility] Comment on above: Performed By: #### L [id number] ####[facility] ([facility])[address] [place] [address] ERYTHROCYTE MEAN CORPUSCULAR HEMOGLOBIN CONCENTRATION (G/DL) BY AUTOMATED 34.5 g/dL Normal 32.0-35.0 [facility] Comment on above: Performed By: #### L [id number] ####[facility] ([facility])[address] [place] [address] Hematocrit (Bld) [Volume fraction] 44.4 % Normal 39.0-55.0 [facility] Comment on above: Performed By: #### L [id number] ####[facility] ([facility])[address] [place] [address] Hemoglobin (Bld) [Mass/Vol] 15.3 g/dL Normal 13.0-17.0 [facility] Comment on above: Performed By: #### L [id number] ####[facility] ([facility])[address] [place] [address] Immature granulocytes (Bld) [#/Vol] 0.03 10*3/uL Normal 0.00-0.20 [facility] Comment on above: Performed By: #### L [id number] ####[facility] [place] [address] Immature granulocytes/100 WBC (Bld) 0.5 % Normal 0.0-1.0 [facility] Comment on above: Performed By: #### L [id number] ####[facility] [place] [address] Lymphocytes (Bld) [#/Vol] 0.98 10*3/uL Low 1.20-4.00 [facility] Comment on above: Performed By: #### L [id number] ####[facility] ([facility])[address] [place] [address] Lymphocytes/100 WBC (Bld) 15.0 % Low 20.0-45.0 [facility] Comment on above: Performed By: #### L [id number] ####[facility] ([facility])[address] [place] [address] MCH (RBC) [Entitic mass] 29.4 pg Normal 27.0-33.0 [facility] Comment on above: Performed By: #### L [id number] ####[facility] ([facility])[address] [place] [address] MCV (RBC) [Entitic vol] 85.4 fL Normal 82.0-98.0 [facility] Comment on above: Performed By: #### L [id number] ####[facility] ([facility])[address] [place] [address] Monocytes (Bld) [#/Vol] 0.55 10*3/uL Normal 0.10-1.00 [facility] Comment on above: Performed By: #### L [id number] ####[facility] ([facility])[address] [place] [address] Monocytes/100 WBC (Bld) 8.4 % Normal 5.0-12.0 [facility] Comment on above: Performed By: #### L [id number] ####[facility] ([facility])[address] [place] [address] Neutrophils (Bld) [#/Vol] 4.80 10*3/uL Normal 1.60-7.60 [facility] Comment on above: Performed By: #### L [id number] ####[facility] ([facility])[address] [place] [address] Neutrophils/100 WBC (Bld) 73.3 % High 40.0-72.0 [facility] Comment on above: Performed By: #### L [id number] ####[facility] ([facility])[address] [place] [address] NRBC (PER 100 WBCS) BY AUTOMATED COUNT 0.0 % Normal 0 [facility] Comment on above: Performed By: #### L [id number] ####[facility] ([facility])[address] [place] [address] PLATELETS (10*3/UL) IN BLOOD AUTOMATED COUNT 198 10*3/uL Normal 150-400 [facility] Comment on above: Performed By: #### L [id number] ####[facility] ([facility])[address] [place] [address] RBC (Bld) [#/Vol] 5.20 10*6/uL Normal 4.20-5.70 [facility] Comment on above: Performed By: #### L [id number] ####[facility] ([facility])[address] [place] [address] WBC (Bld) [#/Vol] 6.54 10*3/uL Normal 4.00-10.60 [facility] Comment on above: Performed By: #### L [id number] ####[facility] ([facility])[address] [place] [address] CONSULTon 11-25-2022 CONSULT Normal [facility] Documentationon 11-25-2022 Documentation [id number] Shad Rodriguez 1950 M Date Provider Department [place] [id number]/[id number] GLYNN [facility] No family history on file Normal [facility] HEPATIC FUNCTION PANELon Albumin [Mass/Vol] 4.0 g/dL Normal 3.5-5.7 [facility] Comment on above: Performed By: #### L [id number] ####[facility] ([facility])[address] [place] [address] ALP [Catalytic activity/Vol] 88 U/L Normal 34-104 [facility] Comment on above: Performed By: #### L [id number] ####[facility] ([facility])[address] [place] [address] ALT [Catalytic activity/Vol] 26 U/L Normal 7-52 [facility] Comment on above: Performed By: #### L [id number] ####[facility] ([facility])[address] [place] [address] AST [Catalytic activity/Vol] 18 U/L Normal 13-39 [facility] Comment on above: Performed By: #### L [id number] ####[facility] ([facility])[address] [place] [address] Bilirubin [Mass/Vol] 0.6 mg/dL Normal 0.3-1.0 [facility] Comment on above: Performed By: #### L [id number] ####[facility] ([facility])[address] [place] [address] Magnesium [Mass/Vol] 0.2 mg/dL Normal 0-0.2 [facility] Comment on above: Performed By: #### L [id number] ####[facility] ([facility])[address] [place] [address] Protein [Mass/Vol] 6.4 g/dL Normal 6.0-8.3 [facility] Comment on above: Performed By: #### L [id number] ####[facility] ([facility])[address] [place] [address] HPon 11-25-2022 HP Normal [facility] HP Normal [facility] MAGNESIUMon 11-25-2022 Magnesium [Mass/Vol] 1.7 mg/dL Low 1.9-2.7 [facility] Comment on above: Performed By: #### L [id number] ####[facility] ([facility])[address] [place] [address] PHOSPHORUSon 11-25-2022 Magnesium [Mass/Vol] 3.2 mg/dL Normal 2.5-5.0 [facility] Comment on above: Performed By: #### L [id number] ####[facility] ([facility])[address] [place] [address] PLATELET COUNTon 11-25-2022 PLATELETS (10*3/UL) IN BLOOD AUTOMATED COUNT 204 10*3/uL Normal 150-400 [facility] Comment on above: Performed By: #### L [id number] ####[facility] ([facility])[address] [place] [address] POCT GLUCOSE METER UNSOLICIT ED RESULTSon 11-25-2022 Glucose [Mass/Vol] 194 mg/dL High 70-105 [facility] Comment on above: Order Comment: Waive d Testing in the ED is performed under the ED CLIA certificate #[id number]. Result Comment: [email or web address] [email or web address] Performed By: #### L [id number] ####[facility] ([facility])[address] [place] [address] Glucose [Mass/Vol] 193 mg/dL High 70-105 [facility] Comment on above: Order Comment: Waive d Testing in the ED is performed under the ED CLIA certificate #[id number]. Result Comment: awat [email or web address] Performed By: #### L [id number] ####[facility] ([facility])[address] [place] [address] Glucose [Mass/Vol] 188 mg/dL High 70-105 [facility] Comment on above: Order Comment: Waive d Testing in the ED is performed under the ED CLIA certificate #[id number]. Result Comment: awat kin26 Performed By: #### L [id number] ####[facility] ([facility])[address] [place] [address] Glucose [Mass/Vol] 178 mg/dL High 70-105 [facility] Comment on above: Order Comment: Waive d Testing in the ED is performed under the ED CLIA certificate #[id number]. Result Comment: abec [email or web address] Performed By: #### L [id number] ####[facility] ([facility])[address] [place] [address] POTASSIUM, WHOLE BLOODon Potassium [Moles/Vol] 3.9 mmol/L Normal 3.5-5.1 [facility] Comment on above: Performed By: #### P OTASSIUM, WHOLE BLOOD ####[facility] [id number] [place] [address] [place] PROTIME-INRon 11-25-2022 INR IN PPP BY COAGULATION ASSAY 1.74 High 0.90-1.10 [facility] Comment on above: Result Comment: ACCC P [...] CHEST 1995;108:231S-246S. Performed By: #### L [id number] ####[facility] ([facility])[address] [place] [address] PROTHROMBIN TIME (PT) IN PPP BY COAGULATION ASSAY 20.4 Seconds High 12.3-14.8 [facility] Comment on above: Performed By: #### L [id number] ####[facility] ([facility])[address] [place] [address] SODIUM, WHOLE BLOODon 2022 SODIUM, WHOLE BLOOD 132 Low 136-145 [facility] Comment on above: Performed By: #### S ODIUM, WHOLE BLOOD ####[facility] [id number] [place] [address] [place] TROPONIN Ion 11-25-2022 Troponin I.cardiac [Mass/Vol] 0.03 ng/mL Normal 0.00-0.04 [facility] Comment on above: Performed By: #### L [id number] ####[facility] ([facility])[address] [place] [address] Troponin I.cardiac [Mass/Vol] 0.01 ng/mL Normal 0.00-0.04 [facility] Comment on above: Performed By: #### L [id number] ####[facility] ([facility])[address] [place] [address] CHEMISTRYOrdered By: Lab ROP User on 10-02-2022 INR Coag (Bld) [Relative time] 2.1 {INR} High 0.7 - 1.2 [facility] POC Subsection POC Device SN [id number] Invalid Interpretation Code [facility] POC Subsection POC Username PARISA HYDE Invalid Interpretation Code [facility] POC Subsection POCT PT 23.2 s High 8.0 - 15.0 second(s) [facility] POC Subsection Sodium [Moles/Vol] 840877520 mmol/L Invalid Interpretation Code [facility] POC Subsection COAGULATIONOrdered By: Elenita Hyde on 10-02-2022 INR Coag (Bld) [Relative time] 2.1 {INR} High 0.7 - 1.2 [facility] POCT PT 23.2 s High 8 - 15 second(s) [facility] POCT PT/INRon 10-02-2022 POCT INR 2.1 High .7-1.2 [facility] Comment on above: Performed By: #### 2 [id number] ####[facility] [address] [place] [address] POCT PT 23.2 second(s) High 8.0-15.0 [facility] Comment on above: Performed By: #### 2 [id number] ####[facility] [address] [place] [address] CHEMISTRYOrdered By: Lab ROP User on 08-21-2022 POC Device SN [id number] Invalid Interpretation Code [facility] POC Subsection POC Username CHRISTINA HAINES Invalid Interpretation Code [facility] POC Subsection Sodium [Moles/Vol] 756566139 mmol/L Invalid Interpretation Code [facility] POC Subsection COAGULATIONOrdered By: Ebenezer Haines on 08-21-2022 INR Coag (Bld) [Relative time] 2.1 {INR} High 0.7 - 1.2 [facility] POCT PT 23.3 s High 8 - 15 second(s) [facility] POCT PT/INRon 08-21-2022 POCT INR 2.1 High .7-1.2 [facility] Comment on above: Performed By: #### 2 [id number] ####[facility] [address] [place] [address] POCT PT 23.3 second(s) High 8.0-15.0 [facility] Comment on above: Performed By: #### 2 [id number] ####[facility] [address] [place] [address] Progress Note-Physicianon Progress Note-Physician Patient: SHAD RODRIGUEZ [...] stroke: no 4. Serious co-morbid conditions (recent ID, anemia with Hct <30%, CRI with SCr [...] results, # 90 tab(s), Refills(s) 0, Pharmacy: [facility]/pharmacy #[id number], 167.6, cm, 01/02/19 13:46:00 EST, Height/Length Measured, 95.8, kg, 01/02/19 13:46:00 EST, Weight Measured Eliquis 2.5 mg oral tablet: 2.5 mg = 1 tab(s), Oral, BID, # 60 tab(s), Refills(s) 5, Pharmacy: [facility]/pharmacy #[id number] Metamucil 525 mg oral capsule: 2,625 mg = 5 cap(s), Oral, Daily, X 90 day(s), # 450 cap(s), Refills(s) 3, Pharmacy: [facility]/pharmacy #[id number], 167.6, cm, 06/27/22 8:28:00 EDT, Height/Length Dosing, 94.9, kg, 06/27/22 8:28:00 EDT, Weight Dosing albuterol HFA 90 mcg/inh MDI: 2 puff(s), Inhalation, QID for wheezing, 6.7 gram, Refill(s) 0, [facility]/pharmacy #[id number] predniSONE 10 mg Tab: See Instructions, Oral 6 tabs for 1 day,5 tabs for 1 day,4 tabs for 1 day,3 tabs for 1 day,2 tabs for 1 day,1 tab for 1 day, # 21 tab(s), Refills(s) 0, Pharmacy: [facility]/pharmacy #1989 Documented Medications Documented Immodium A-D 2 mg [...] list: All Problems Bloating / SNOMED CT 776591833 / Confirmed Constipation / SNOMED CT 72958509 / Confirmed Diverticulosis / SNOMED CT 8487691715 / Confirmed Acid reflux / SNOMED CT 014183500 / Confirmed Hemorrhoids / SNOMED CT 118014909 / Confirmed History of rectal cancer / SNOMED CT 0406416375 / Confirmed History of colon polyps / SNOMED CT 4606207426 / Confirmed Hypercoagulable state / SNOMED CT 689203850 / Confir (more content not included)... Normal [facility] Comment on above: Result Comment: Elec tronically Signed By: Leah OJEDA, Aggie\.br\Date and Time Signed: 08/21/22 08:26 EDT CHEMISTRYOrdered By: Danni BARBA User on 07-10-2022 POC Device SN [id number] Invalid Interpretation Code [facility] POC Subsection POC Username SHAYY CAIN Invalid Interpretation Code [facility] POC Subsection Sodium [Moles/Vol] 851519552 mmol/L Invalid Interpretation Code [facility] POC Subsection POCT PT/INRon 07-10-2022 POCT INR 2.3 High .7-1.2 [facility] Comment on above: Performed By: #### 2 [id number] ####[facility] [address] [place] [address] POCT PT 24.8 second(s) High 8.0-15.0 [facility] Comment on above: Performed By: #### 2 [id number] ####[facility] [address] [place] [address] Ambulatory Visit Summaryon 0 06-27-2022 Ambulatory Visit [...] day Constipation Duration: 90 Days Pickup at [facility]/pharmacy #[id number] Unchanged albuterol (albuterol HFA 90 mcg/ inh [...] or concerns Pharmacy Information [facility][id number]: [address], [place] [id number] [phone] Allergies Ragweed (Dyspnea) penicillins (unknown) Problems Ongoing [...] It may (more content not included)... Normal [facility] Auto Diffon 06-27-2022 Basophils/100 WBC (Bld) 0.2 % Normal 0.0-2.0 [facility] Comment on above: Order Comment: Order Added by Discern Expert. Performed By: #### 2 932184, 3584205, 9597534, 01581891, 5858639 ####[address] [place] [address] Basophils/Leukocytes Auto (Bld) [Pure # fraction] 0.0 E9/L Normal 0.0-0.2 [facility] Comment on above: Order Comment: Order Added by Discern Expert. Performed By: #### 2 537742, 8497956, 6759551, 76171222, 0232462 ####[address] [place] [address] Eosinophils/100 WBC (Bld) 2.1 % Normal 0.0-8.0 [facility] Comment on above: Order Comment: Order Added by Discern Expert. Performed By: #### 2 789085, 2104749, 5579220, 15964876, 3699448 ####[address] [place] [address] Eosinophils/Leukocyte s Auto (Bld) [Pure # fraction] 0.1 E9/L Normal 0.0-0.5 [facility] Comment on above: Order Comment: Order Added by Discern Expert. Performed By: #### 2 969194, 4151097, 3120240, 00138583, 9110991 ####[address] [place] [address] Lymphocytes/100 WBC (Bld) 16.3 % Normal 14.0-50.0 [facility] Comment on above: Order Comment: Order Added by Discern Expert. Performed By: #### 2 849107, 7751236, 5235829, 50131406, 4750141 ####[address] [place] [address] Lymphocytes/Leukocyte s Auto (Bld) [Pure # fraction] 1.0 E9/L Normal 1.0-4.0 [facility] Comment on above: Order Comment: Order Added by Discern Expert. Performed By: #### 2 267497, 3215043, 6027439, 25330866, 1253552 ####[address] [address] Monocytes/100 WBC (Bld) 9.0 % Normal 4.0-14.0 [facility] Comment on above: Order Comment: Order Added by Michael Expert. Performed By: #### 2 352949, 9614376, 3101199, 95073230, 3452380 ####[address] [address] Monocytes/Leukocytes Auto (Bld) [Pure # fraction] 0.6 E9/L Normal 0.2-1.0 [facility] Comment on above: Order Comment: Order Added by Michael Expert. Performed By: #### 2 124593, 0945911, 8490435, 68046274, 3145563 ####[address] [address] Neutrophils/100 WBC (Bld) 72.4 % Normal 36.0-75.0 [facility] Comment on above: Order Comment: Order Added by Michael Expert. Performed By: #### 2 001893, 0599500, 7759226, 53753969, 7059590 ####[address] [address] Neutrophils/Leukocyte s Auto (Bld) [Pure # fraction] 4.6 E9/L Normal 2.0-7.5 [facility] Comment on above: Order Comment: Order Added by Michael Expert. Performed By: #### 2 583009, 0488560, 7519184, 76981826, 0936215 ####[address] [place] [address] CBC w/ Auto Diffon 3 Erythrocyte distribution width (RBC) [Ratio] 14.0 % Normal 10.9-14.2 [facility] Comment on above: Performed By: #### 2 610889, 2831727, 5890974, 41435153, 8240728 ####[address] [place] [address] Hematocrit (Bld) [Volume fraction] 46.6 % Normal 37.7-49.0 [facility] Comment on above: Performed By: #### 2 119267, 1701125, 5189026, 89244096, 4891152 ####[address] [address] Hemoglobin (Bld) [Mass/Vol] 15.3 g/dL Normal 13.5-17.5 [facility] Comment on above: Performed By: #### 2 715957, 8930304, 8769558, 45693805, 4696011 ####[address] [address] MCH (RBC) [Entitic mass] 29.2 pg Normal 27.0-34.0 [facility] Comment on above: Performed By: #### 2 643933, 5763432, 9634794, 43819667, 8788394 ####[address] [address] MCHC (RBC) [Mass/Vol] 32.8 g/dL Normal 31.4-36.0 [facility] Comment on above: Performed By: #### 2 652808, 5802829, 6023727, 80330600, 1947503 ####[address] [address] MCV (RBC) [Entitic vol] 89.2 fL Normal 80.0-100.0 [facility] Comment on above: Performed By: #### 2 523395, 8789614, 3459690, 69247189, 9121186 ####[facility] [address] [place] [address] Platelet mean volume (Bld) [Entitic vol] 8.9 fL Normal 6.4-10.8 [facility] Comment on above: Performed By: #### 2 186665, 1699764, 9596134, 80005025, 1701735 ####[address] [place] [address] Platelets (Bld) [#/Vol] 197.0 E9/L Normal 150.0-500.0 [facility] Comment on above: Performed By: #### 2 131691, 7656293, 3249601, 38782138, 2597155 ####[address] [place] [address] RBC (Bld) [#/Vol] 5.2 E12/L Normal 4.3-5.9 [facility] Comment on above: Performed By: #### 2 230179, 6570502, 9192235, 53441006, 8540048 ####[address] [address] WBC corrected for nucl RBC Auto (Bld) [#/Vol] 6.4 E9/L Normal 4.0-11.0 [facility] Comment on above: Performed By: #### 2 671415, 0154332, 6239250, 36001548, 9423611 ####[address] [address] CEAon 06-27-2022 Carcinoembryonic Ag [Mass/Vol] 2.0 ng/mL Invalid Interpretation Code [facility] Comment on above: Result Comment: REFE RENCE VALUES <2.5 ng/mL (NONSMOKER) <5.0 ng/mL (SMOKER) The concentration of CEA in a given specimen determined by different manufacturers can vary due to differences in assay methods and reagent specificity. Values obtained with different assay methods cannot be used interchangeably. The methodology used to perform this test was chemiluminescence using [employer] Access CEA reagent. Performed By: #### 2 502110, 1078946, 0417296, 38605902, 2736539 ####[facility] [address] [place] [address] CMPon 06-27-2022 Albumin [Mass/Vol] 3.9 g/dL Normal 3.3-5.0 [facility] Comment on above: Performed By: #### 2 953370, 6697560, 0433908, 52786080, 4992435 ####[address] [address] Albumin/Globulin (S) [Mass conc ratio] 1.3 Normal 1.1-2.2 [facility] Comment on above: Performed By: #### 2 667393, 8087362, 0273163, 20100267, 1921730 ####[address] [address] ALP [Catalytic activity/Vol] 94 Int._Unit/L Normal 21-98 [facility] Comment on above: Performed By: #### 2 988305, 3661638, 1257667, 03171126, 3150201 ####[address] [address] ALT No additional P-5'-P [Catalytic activity/Vol] 29 Int._Unit/L Normal 6-46 [facility] Comment on above: Performed By: #### 2 760413, 3560789, 6383683, 40089221, 6681881 ####[address] [place] [address] Anion gap [Moles/Vol] 10 mmol/L Normal 6-16 [facility] Comment on above: Performed By: #### 2 693627, 1894976, 9034007, 61511286, 1036297 ####[address] [place] [address] AST [Catalytic activity/Vol] 24 Int._Unit/L Normal 5-43 [facility] Comment on above: Performed By: #### 2 300433, 5407061, 7475942, 66442955, 5365212 ####[facility] [address] [place] [address] Bilirubin [Mass/Vol] 0.6 mg/dL Normal 0.0-1.1 [facility] Comment on above: Performed By: #### 2 105380, 5765858, 2574970, 51416453, 8309475 ####[address] [place] [address] Calcium [Mass/Vol] 9.1 mg/dL Normal 8.9-11.1 [facility] Comment on above: Performed By: #### 2 044696, 9630684, 9383626, 05130766, 5892628 ####[address] [place] [address] Chloride [Moles/Vol] 104 mmol/L Normal 101-111 [facility] Comment on above: Performed By: #### 2 607127, 5989303, 3779015, 79880648, 8217004 ####[facility] [address] [place] [address] CO2 [Moles/Vol] 28 mmol/L Normal 21-31 [facility] Comment on above: Performed By: #### 2 168305, 4562610, 9340894, 46077136, 7215972 ####[facility] [address] [place] [address] Creatinine [Mass/Vol] 1.3 mg/dL Normal 0.5-1.3 [facility] Comment on above: Performed By: #### 2 407692, 6656513, 4079547, 14857224, 3134377 ####[facility] [address] [place] [address] Globulin (S) [Mass/Vol] 3.1 g/dL Normal 1.4-4.0 [facility] Comment on above: Performed By: #### 2 797243, 9817532, 4988441, 41872902, 3569602 ####[facility] [address] [place] [address] Glucose [Mass/Vol] 176 mg/dL Normal 55-199 [facility] Comment on above: Result Comment: If t his glucose result represents a fasting glucose, interpretation should refer to the following reference range: 55-99 mg/dL Performed By: #### 2 228343, 5900694, 1612318, 98539941, 8233210 ####[facility] [address] [place] [address] Potassium [Moles/Vol] 3.7 mmol/L Normal 3.5-5.3 [facility] Comment on above: Performed By: #### 2 216069, 8434428, 4373865, 11713467, 2796685 ####[facility] [address] [place] [address] Protein [Mass/Vol] 7.0 g/dL Normal 6.0-7.8 [facility] Comment on above: Performed By: #### 2 708265, 6521895, 0516548, 26916914, 9890494 ####[facility] [address] [place] [address] Sodium [Moles/Vol] 138 mmol/L Normal 135-145 [facility] Comment on above: Performed By: #### 2 881875, 4858264, 2374762, 07469462, 5995649 ####[facility] [address] [place] [address] Urea nitrogen [Mass/Vol] 15 mg/dL Normal 5-21 [facility] Comment on above: Performed By: #### 2 782613, 4705633, 8032866, 56464756, 5701834 ####[facility] [address] [place] [address] Urea nitrogen/Creatinine [Mass ratio] 12 No Units Normal 10-20 [facility] Comment on above: Performed By: #### 2 775323, 4107276, 5936527, 36103703, 1520679 ####[facility] [address] [place] [address] Consent for Treatmenton 06-11 Consent for Treatment [id number] 3050 [id number] 0CD:127 Normal [facility] Consent for Treatment [id number] 3050 [id number] 0CD:127 Normal [facility] Consent for Treatment [id number] 3050 [id number] 0CD:127 Normal [facility] Gastroenterology Office/Clin ic Noteon 06-27-2022 Gastroenterology Office/Clinic [...] day(s), # 450 cap(s), Refills(s) 3, Pharmacy: [facility]/pharmacy #4783, 167.6, cm, 06/27/22 8:28:00 EDT, Height/Length Dosing, [...] rectal cance (more content not included)... Normal [facility] Comment on above: Result Comment: Elec tronically Signed By: Cira MINER, Yusra Pickett\.br\Date and Time Signed: 06/27/22 08:50 EDT Magnesiumon 06-27-2022 Magnesium [Mass/Vol] 1.9 mg/dL Normal 1.3-2.4 [facility] Comment on above: Performed By: #### 2 125817, 4683600 ####[facility] [address] [place] [address] Oncology Progress Noteon Oncology Progress Note Patient: [...] did have uneventful hernia repair surgery in [place]. He will be going to [place] and following up with me in June. [...] list: All Problems Bloating / SNOMED CT 042273097 / Confirmed Constipation / SNOMED CT 38474124 / Confirmed Diverticulosis / SNOMED CT 1989240021 / Confirmed Acid reflux / SNOMED CT 312764215 / Confirmed Hemorrhoids / SNOMED CT 239507045 / Confirmed History of rectal cancer / SNOMED CT 9311425420 / Confirmed History of colon polyps / SNOMED CT 1232188401 / Confirmed Hypercoagulable state / SNOMED CT 332104388 / Confirmed Schatzki's ring / SNOMED CT 957026906 / Confirmed Colon polyp / SNOMED CT 201922321 / Confirmed Resolved: Change in bowel habits / SNOMED CT 875473061 Resolved: At Risk For Unstable Blood Glucose Level / IMO [id number] Problem added due to documentation that the patient has diabetes. Resolved due to patient discharge. Resolved: Colon cancer / SNOMED CT 5505104929 Resolved: DVT - Deep vein thrombosis / SNOMED CT 6319056251 Resolved: Dysphagia / SNOMED CT 27434977 Histories Past Medical History: Resolved Colon cancer (3828423916): Resolved. DVT - Deep vein thrombosis (7268496296): Resolved. Change in bowel habits (573597216): Resolved. Dysphagia (09067758): R (more content not included)... Normal [facility] Patient Educationon 06-28-19 Patient Education Gastroenterology Constipation, [...] as fried or sweet foods. These include kazakh fries, hamburgers, cookies, candies, and soda. ? Drink enough fluid to keep your urine pale yellow. General instructions ? Exercise regularly or as told by your health care provider. Try to do 150 minutes of moderate exercise each week. ? Use the bathroom when you have the urge to go. Do not hold it in. ? Take wjrc-awd-wlbynnf and prescription medicines only as told by [...] keep your urine pale yellow. ? Take xvpq-xmb-jafscib and prescription medicines only as told by your health care provider. This includes any fiber supplements. This information is not intended to replace advice given to you by your health care provider. Make sure you discuss any questions you have with your health care provider. Document Revised: 12/16/2019 Document Reviewed: 12/16/2019 [employer] Patient Education ? 2022 [employer] Normal [facility] Vit B12on 06-27-2022 Cobalamin (Vitamin B12) [Mass/Vol] 338 pg/mL Normal 50-1500 [facility] Comment on above: Performed By: #### 2 707783, 8571112 ####[facility] [address] [place] [address] eGFRon 06-27-2022 GFR/1.73 sq M.predicted among non-blacks MDRD (S/P/Bld) [Vol rate/Area] 59 mL/min/1.73 m2 Normal >=59 [facility] Comment on above: Order Comment: Order added by Discern Expert. Result Comment: Psychiatry Resident lisa kidney disease could be indicated at eGFR's of less than 60 mL/min/1.73m2. Kidney failure is indicated at less than 15 mL/min/1.73m2. Performed By: #### 2 [id number], [id number], [id number], [id number], [id number] ####[facility] [address] [place] [address] POCT PT/INRon 06-01-2022 POCT INR 2.1 High .7-1.2 [facility] Comment on above: Performed By: #### 2 [id number] ####[facility] [address] [place] [address] POCT PT 23.5 second(s) High 8.0-15.0 [facility] Comment on above: Performed By: #### 2 [id number] ####[facility] [address] [place] [address] Ambulatory Visit Summaryon 0 05-17-2022 Ambulatory Visit [...] AM EDT With: Yusra Denis CNP Where: [facility] Normal [facility] G[facility]ology Office/Clin ic Noteon 05-17-2022 Gastroenterology [...] day(s), # 450 cap(s), Refills(s) 0, Pharmacy: [facility]/pharmacy #[id number], 167.6, cm, 05/17/22 8:01:00 EDT, Height/Length Dosing, [...] and an (more content not included)... Normal [facility] Comment on above: Result Comment: Elec [...] a fiber (more content not included)... Normal [facility] Outside Recordson 05-08-2022 Outside Records [id number]#1.0 0CD:127 [facility] Outside Recordson 04-12-2022 Outside Records [id number]#1. 00CD:127 [facility] Outside Recordson 03-29-2022 Outside Records [id number]#1. 00CD:127 [facility] Record[facility] 02-28-2022 Outside Records [id number]#1. 00CD:127 [facility] Outside Recordson 02-06-2022 Outside Records [id number]#1. 00CD:127 [facility] COAGULATIONOrdered By: Elenita Hyde on 01-09-2022 POCT INR 2.8 High 0.7 - 1.2 [facility] POCT PT 30.2 High 8 - 15 [facility] CHEMISTRYOrdered By: SYSTEM SYSTEM on [...] - 11.0 E9/L [facility] HemeAutoSS Covid-19 PCR ([facility])on SARS-CoV-2 (COVID-19) RNA KELLY+probe Ql (Unsp spec) Detected Critically abnormal NOT DETECTED [facility] Comment on above: Result Comment: This test is not yet approved or cleared by the [place] FDA. When there are no FDA-approved or cleared tests available, and other criteria are met, FDA can make tests available under an emergency access mechanism called an Emergency Use Authorization (EUA). The EUA for this test is supported by the Wirer Helper of Health and Human Service's (HHS's) declaration [...] used). Performed By: #### C VDTBH #### [facility] [address] [place] [address] Dr. Kayli Perez INFLUENZA A AND B AGon 12-14 INFLUANEGH SEE BELOW Normal [facility] Comment on above: Result Comment: Nega tive for Flu A protein angiten. Infection due to Flu A cannot be ruled out. Flu A angiten in the sample may be below the detection limit of the test. Performed By: #### I NFLUAB #### [facility] [address] [place] [address] Dr. Kayli Perez INFLUBNEG SEE BELOW Normal [facility] Comment on above: Result Comment: Nega tive for Flu B protein antigen. Infection due to Flu B cannot be ruled out. Flu B antigen in the sample may be below the detection limit of the test. Performed By: #### I NFLUAB #### [facility] [address] [place] [address] Dr. Kayli Perez INFLUENZA A AG Negative Normal NEGATIVE SEE COMMENT [facility] Comment on above: Performed By: #### I NFLUAB #### [facility] [address] [place] [address] Dr. Kayli Perez INFLUENZA B AG Negative Normal NEGATIVE SEE COMMENT [facility] Comment on above: Performed By: #### I NFLUAB #### [facility] [address] [place] [address] Dr. Kayli Perez INTERNAL CONTROLS Within Normal Limits Normal Wi thin Normal Limits [facility] Comment on above: Performed By: #### I NFLUAB #### [facility] [address] [place] [address] Dr. Kayli Perez CHEMISTRYOrdered By: Christina Haines on 11-28-2021 INR POC FT 2.5 [facility] PT POC FT 30.3 s High 10.8 - 13.6 second(s) [facility] CHEMISTRYOrdered By: Parisa Hyde on 10-13-2021 INR POC FT 2.4 [facility] PT POC FT 28.9 s High 10.8 - 13.6 second(s) [facility] CHEMISTRYOrdered By: Shayy Cain on 10-03-2021 INR POC FT 2.6 [facility] PT POC FT 31.6 s High 10.8 - 13.6 second(s) [facility] CHEMISTRYOrdered By: SYSTEM SYSTEM on 06-23-2021 Albumin [...] CNPBriana 12-20-2020 ISIDRAN Telephone (RAIZA) SHAD RODRIGUEZ ([id number]) 1950 M Date Time Provider Department 12/20/20 [...] Date Reviewed: 09/05/2020 Reviewed by: Cydney Koch APRN.STORES LABORER - Fully Assessed Reason for Visit: Patient [...] Encounter Status:Closed by NANCI FUNES on 12/20/20 [facility] CNOVon 09-05-2020 CNOV Office Visit (GENN ) SHAD RODRIGUEZ ([id number]) 1950 M Date Time Provider Department 09/05/20 11:00 AM CYDNEY KOCH During your visit today, we recorded the following information about you: Temperature Pulse Blood pressure Weight 97.7 degrees 77/minute 139/84 86.3 kg Height 1.702 m Binta Matos Az 09/05/2020 11:04 AM Signed What is the reason for your visit today? Post op Who is your referring physician? Dr. Amaya Are you having poor oral intake? NO Have you had unintentional weight loss of 15 lbs/7 Kg in the last 3-6 months? NO Bowels: regular Wound: clean AND dry Temperature: No Drains: No Cydney Koch APRN.CNP 09/05/2020 11:19 AM Signed [facility] Clinic Date: 09/05/2020 Shad [...] needed. Randomized control trial: RINSE/FIXATION Cydney Koch APRN.STORES LABORER September 04, (more content not included)... Normal [facility] ALLIED HEALTHon 08-19-2020 ALLIED HEALTH HNO ID: [id number] Author: Chaplain Rosa Service: Spiritual Care Author [...] ended by prayer at the pt's request. Structural Steel Worker Helper Signature: Chaplain ROSA To contact the Spiritual Care Department: Please call [phone] or Page the On-Call Structural Steel Worker Helper at pager [phone] Thank you for the opportunity to be of service. This is an electronically created document. IF PRINTED, PLEASE DO NOT REMOVE FROM THE CHART OR MODIFY PRINTED COPY. Normal [facility] Basic Metabolic Panlon 08-19 Anion gap [Moles/Vol] 9 mmol/L Normal 9-18 [facility] Comment on above: Performed By: #### P T, MG1, PHOS, BMP ####[facility] [place] [phone] Calcium [Mass/Vol] 8.9 mg/dL Normal 8.5-10.2 [facility] Comment on above: Performed By: #### P T, MG1, PHOS, BMP ####[place] [address] [place], [place] [phone] Chloride [Moles/Vol] 100 mmol/L Normal 97-[address] [facility] Comment on above: Performed By: #### P T, MG1, PHOS, BMP ####[place] [address] [place], [place] [phone] CO2 [Moles/Vol] 25 mmol/L Normal 22-30 [facility] Comment on above: Performed By: #### P T, MG1, PHOS, BMP ####[place] [address] [place], [place] [phone] Creatinine [Mass/Vol] 1.13 mg/dL Normal 0.73-1.22 [facility] Comment on above: Performed By: #### P T, MG1, PHOS, BMP ####[facility] [place], [place] [phone] eGFR- Amer. >60 Normal [facility] Comment on above: Performed By: #### P T, MG1, PHOS, BMP ####[facility] [place], [place] [phone] eGFR-All Other Races >[address] [facility] Comment on above: Result Comment: eGFR [...] By: #### P T, MG1, PHOS BMP ####[facility] [place], [place] [phone] Glucose [Mass/Vol] 117 mg/dL High 74-99 [facility] Comment on above: Result Comment: The [place] Diabetes Association (ADA) provides guidance for cutoff [...] Standards of Medical Care in Diabetes 2016, [place] [employer]. Diabetes Care. 2016.39(Suppl 1). Performed By: #### P T, MG1, PHOS, BMP ####[facility] [address] [place], [place] [phone] Potassium [Moles/Vol] 4.2 mmol/L Normal 3.7-5.1 [facility] Comment on above: Performed By: #### P T, MG1 PHOS, BMP ####[facility] [address] [place], [place] [phone] Sodium [Moles/Vol] 134 mmol/L Low 136-144 [facility] Comment on above: Performed By: #### P T, MG1, PHOS, BMP ####[facility] [address] [place], [place] [phone] Urea nitrogen [Mass/Vol] 21 mg/dL Normal 9-24 [facility] Comment on above: Performed By: #### P T, MG1, PHOS, BMP ####[facility] [address] [place], [place] [phone] CASE MANAGEMon 08-19-2020 CASE MANAGEM HNO ID: [id number] Author: Rosaline Keating, ALYSSA Service: Case Management Author Type: Registered Nurse Type: Care Mgt Progress Note Filed: 08/19/2020 10:15 AM Note Text: CARE MANAGEMENT PROGRESS NOTE SERVICE DATE: 08/19/2020 SERVICE TIME: 10:00 AM LOS: 7 days Admission Date: 08/12/2020 DISCHARGE ARRANGEMENT Discharge Arrangement: retirement facility Was an expedited discharge program used?: No CAREGIVER ASSESSMENT: Caregiver is ready, willing and able to meet the patient's needs as recommended by the inter-professional team:: Yes Does the patient have an acute stroke diagnosis, or has the patient had a stroke during this admission?: No Patient's transition needs and plan for meeting these needs: SNF [facility] HANDOFF COMMUNICATION: Handoff to: Other Caregiver Other Caregiver Name/Phone: Cynthia Aguila CNP summary of care sent . [facility] [place] ([place] ) p# [phone] and via [employer] TRANSPORTATION ARRANGEMENTS: Transportation Arrangements: Car Discharge Information Row Name Admission (Current) from 08/12/2020 in [place] [address] [facility] Agency [facility] [employer] [facility] Needs Prior to Discharge: Ready for Discharge Patient d/c ready to [facility] . Patient to transport via car with family/friend .Patient aware of plan. Bedside RN aware of plan and provided number to call report [phone] CM spoke with nursing specialist and updated on plan of care, confirmed facility ready for the patient arrival today p# [phone]. [phone] and DC instructions sent to [facility] via [employer] and are in DC packet. DC packet in chart to go with patient. SIGNATURE: Rosaline Keating RN PATIENT NAME: Shad Rodriguez DATE: August 19, 2020 TIME: 9:59 AM PAGER/CONTACT #: [phone] Normal [facility] Magnesiumon 08-19-2020 Magnesium [Mass/Vol] 2.1 mg/dL Normal 1.7-2.[address] [facility] Comment on above: Performed By: #### P T, MG1, PHOS, BMP ####[facility] [address] [place], [place] [phone] Phosphoruson 08-19-2020 Phosphate [Mass/Vol] 3.4 mg/dL Normal 2.7-4.[address] [facility] Comment on above: Performed By: #### P T, MG1, PHOS, BMP ####[facility] [address] [place], [place] [phone] Protimeon 08-19-2020 PT INR 1.2 Normal 0.9-1.3 [facility] Comment on above: Result Comment: Alexandra min K Antagonist (VKA) Therapeutic Range: INR 2 to 3 (Target INR of 2.5) Note: For patients treated with VKA drugs, such as warfarin, the [place] [employer]icians 2012 Guideline recommends [...] Chest 2012, 141:7S-47S Apryl NEAL et al. [facility] 2017, 70: 252-289 Performed By: #### P T, MG1, PHOS, BMP ####[facility] [address] [phone] PT Sec 12.3 sec Normal 9.7-13.0 [facility] Comment on above: Performed By: #### P T, MG1, PHOS, BMP ####[address] [phone] Basic Metabolic Panlon 08-18 Anion gap [Moles/Vol] 9 mmol/L Normal 9-18 [facility] Comment on above: Performed By: #### B MP, MG1, PHOS, CBC, PT ####[place] [phone] Calcium [Mass/Vol] 9.0 mg/dL Normal 8.5-10.2 [facility] Comment on above: Performed By: #### B MP, MG1, PHOS, CBC, PT ####[place] [phone] Chloride [Moles/Vol] 100 mmol/L Normal 97-[address] [facility] Comment on above: Performed By: #### B MP, MG1, PHOS, CBC, PT ####[place] [phone] CO2 [Moles/Vol] 27 mmol/L Normal 22-30 [facility] Comment on above: Performed By: #### B MP, MG1, PHOS, CBC, PT ####[address] [phone] Creatinine [Mass/Vol] 1.10 mg/dL Normal 0.73-1.22 [facility] Comment on above: Performed By: #### B MP, MG1, PHOS, CBC, PT ####[place] [phone] eGFR- Amer. >60 Normal [facility] Comment on above: Performed By: #### B MP, MG1, PHOS, CBC, PT ####[facility] [place], [place] [phone] eGFR-All Other Races >[address] [facility] Comment on above: Result Comment: eGFR [...] B MP, MG1, PHOS, CBC, PT ####[address] [phone] Glucose [Mass/Vol] 119 mg/dL High 74-99 [facility] Comment on above: Result Comment: The [place] Diabetes Association (ADA) provides guidance for cutoff [...] Standards of Medical Care in Diabetes 2016, [place] Diabetes [employer]. Diabetes Care. 2016.39(Suppl 1). Performed By: #### B MP, MG1, PHOS, CBC, PT ####[facility] [place], [place] [phone] Potassium [Moles/Vol] 4.0 mmol/L Normal 3.7-5.1 [facility] Comment on above: Performed By: #### B MP, MG1, PHOS, CBC, PT ####[facility] [address] [place], [place] [phone] Sodium [Moles/Vol] 136 mmol/L Normal 136-144 [facility] Comment on above: Performed By: #### B MP, MG1, PHOS, CBC, PT ####[facility] [address] [place], [place] [phone] Urea nitrogen [Mass/Vol] 22 mg/dL Normal 9-24 [facility] Comment on above: Performed By: #### B MP, MG1, PHOS, CBC, PT ####[facility] [address] [place], [place] [phone] CASE MGT INIT ASSESon 2020 CASE MGT INIT [facility] HNO ID: [id number] Author: Rosaline Keating RN Service: Case Management Author Type: Registered Nurse Type: Care Mgt Initial Assessment Filed: 08/18/2020 3:53 PM Note Text: CARE MANAGEMENT PROGRESS NOTE SERVICE DATE: 08/18/2020 SERVICE TIME: 10:36 AM LOS: 6 days Needs Prior to Discharge: Discharge Transportation CM UPDATE Per Primary Team DC anticipated tomorrow Accepting SNF facility [facility] [employer] [facility] . CM sent updated clinicals via [employer]. CM spoke with [place] in admitting who confirms they have bed available for patient to admit . requested 7000 to be completed , [facility] Nurse report number provided : [phone]. Ask for 200 gr nurse Patient request to transport with family/friends via car. Facility confirmed the patient can arrive via car. Patient transportation arranged for 10 AM tomorrow. SIGNATURE: Rosaline Keating RN PATIENT NAME: Shad Rodriguez DATE: August 18, 2020 TIME: 10:36 AM PAGER/CONTACT #: [phone] Normal [facility] CBCon 08-18-2020 Absolute nRBC <0.01 Normal <0.01 [facility] Comment on above: Performed By: #### B MP, MG1, PHOS, CBC, PT ####[facility] [place] [phone] Erythrocyte distribution width (RBC) [Ratio] 13.5 % Normal 11.5-15.0 [facility] Comment on above: Performed By: #### B MP, MG1, PHOS, CBC, PT ####[place] [address] [place] [phone] Hematocrit (Bld) [Volume fraction] 42.3 % Normal 39.0-51.0 [facility] Comment on above: Performed By: #### B MP, MG1, PHOS, CBC, PT ####[place] [address] [address] [phone] Hemoglobin (Bld) [Mass/Vol] 13.5 g/dL Normal 13.0-17.0 [facility] Comment on above: Performed By: #### B MP, MG1, PHOS, CBC, PT ####[place] [address] [address] [phone] MCH 28.3 pG Normal 26.0-34.0 [facility] Comment on above: Performed By: #### B MP, MG1, PHOS, CBC, PT ####[place] [address] [address] [phone] MCHC (RBC) [Mass/Vol] 31.9 g/dL Normal 30.5-36.0 [facility] Comment on above: Performed By: #### B MP, MG1, PHOS, CBC, PT ####[facility] [place] [phone] MCV (RBC) [Entitic vol] 88.7 fL Normal 80.0-100.0 [facility] Comment on above: Performed By: #### B MP, MG1, PHOS, CBC, PT ####[place] [address] [place] [phone] Platelet mean volume (Bld) [Entitic vol] 10.2 fL Normal 9.0-12.7 [facility] Comment on above: Performed By: #### B MP, MG1, PHOS, CBC, PT ####[address] [phone] Platelets (Bld) [#/Vol] 219 10*3/uL Normal 150-400 [facility] Comment on above: Performed By: #### B MP, MG1, PHOS, CBC, PT ####[address] [phone] RBC (Bld) [#/Vol] 4.77 10*6/uL Normal 4.20-6.00 [facility] Comment on above: Performed By: #### B MP, MG1, PHOS, CBC, PT ####[address] [phone] WBC (Bld) [#/Vol] 6.07 10*3/uL Normal 3.70-11.00 [facility] Comment on above: Performed By: #### B MP, MG1, PHOS, CBC, PT ####[address] [phone] Magnesiumon 08-18-2020 Magnesium [Mass/Vol] 2.2 mg/dL Normal 1.7-2.[address] [facility] Comment on above: Performed By: #### B MP, MG1, PHOS, CBC, PT ####[address] [phone] NUTRITIONon 08-18-2020 NUTRITION HNO ID: [id number] Author: Sandra Katz DTR Service: Nutrition Therapy Author Type: Neuro Psych Sales Specialist Type: Nutrition Filed: 08/18/2020 1:49 PM Note Text: NUTRITION THERAPY PHYSICAL MEDICINE TEACHER NOTE SERVICE DATE: 08/18/2020 SERVICE TIME: 950 [...] August 18, 2020 TIME: 1:49 PM PAGER: [phone] Normal [facility] Phosphoruson 08-18-2020 Phosphate [Mass/Vol] 3.5 mg/dL Normal 2.7-4.[address] [facility] Comment on above: Performed By: #### B MP, MG1, PHOS, CBC, PT ####[facility] [address] [place], [place] [phone] Protimeon 08-18-2020 PT INR 1.0 Normal 0.9-1.3 [facility] Comment on above: Result Comment: Alexandra min K Antagonist (VKA) Therapeutic Range: INR 2 to 3 (Target INR of 2.5) Note: For patients treated with VKA drugs, such as warfarin, the [place] [employer] Chest Physicians 2012 Guideline recommends [...] Chest 2012, 141:7S-47S Apryl RA, et al. [facility] 2017, 70: 252-289 Performed By: #### B MP, MG1, PHOS, CBC, PT ####[facility] [place], [place] [phone] PT Sec 11.2 sec Normal 9.7-13.0 [facility] Comment on above: Performed By: #### B MP, MG1, PHOS, CBC, PT ####[facility] [address] [place], [place] [phone] THERAPY NTon 08-18-2020 THERAPY NT HNO ID: [id number] Author: Greg Gonzalez, PT Service: Physical Therapy Author Type: Physical Therapist Type: Therapy (PT/OT/Speech/Resp) Filed: 08/18/2020 4:05 PM Note Text: Physical Therapy Treatment SERVICE DATE: 08/18/2020 SERVICE TIME: 1526 to 1549 ROOM: [place] [address] Recommended Discharge Disposition: Outpatient Physical Therapy Recommended [...] Bed/Bath: 0 Tub/Shower Type: walk-in 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 Prior Functional Level: Within Functional Limits [...] Diagnosis: Reduced mobility-other Interventions Provided: Therapeutic Activity (92105);Therapeutic Exercise (10832) Therapeutic Exercise (50941) Treatment Minutes: 10 $ Therapeutic Exercise (52171) Billed Units: 1 unit Therapeutic Activity (30732) Treatment Minutes: 13 $ Therapeutic Activity (57905) Billed Units: 1 unit Training AND education [...] August 18, 2020 TIME: 4:05 PM Normal [facility] Basic Metabolic Panlon 08-17 Anion gap [Moles/Vol] 10 mmol/L Normal 9-18 [facility] Comment on above: Performed By: #### B MP, MG1, CBC, PHOS ####[facility] [address] [place], [place] [phone] Calcium [Mass/Vol] 9.0 mg/dL Normal 8.5-10.2 [facility] Comment on above: Performed By: #### B MP, MG1, CBC, PHOS ####[facility] [address] [place], [place] [phone] Chloride [Moles/Vol] 96 mmol/L Low 97-[address] [facility] Comment on above: Performed By: #### B MP, MG1, CBC, PHOS ####[facility] [address], [place] [phone] CO2 [Moles/Vol] 27 mmol/L Normal 22-30 [facility] Comment on above: Performed By: #### B MP, MG1, CBC, PHOS ####[facility] [address] [place], [place] [phone] Creatinine [Mass/Vol] 1.15 mg/dL Normal 0.73-1.22 [facility] Comment on above: Performed By: #### B MP, MG1, CBC, PHOS ####[facility] [address] [place], [place] [phone] eGFR- Amer. >60 Normal [facility] Comment on above: Performed By: #### B MP, MG1, CBC, PHOS ####[facility] [address] [place], [place] [phone] eGFR-All Other Races >[address] [facility] Comment on above: Result Comment: eGFR [...] #### B MP, MG1, CBC, PHOS ####[facility] [address] [place], [place] [phone] Glucose [Mass/Vol] 134 mg/dL High 74-99 [facility] Comment on above: Result Comment: The [place] Diabetes Association (ADA) provides guidance for cutoff [...] Standards of Medical Care in Diabetes 2016, [place] [employer]. Diabetes Care. 2016.39(Suppl 1). Performed By: #### B MP, MG1, CBC, PHOS ####[facility] [address] [place], [place] [phone] Potassium [Moles/Vol] 4.0 mmol/L Normal 3.7-5.1 [facility] Comment on above: Performed By: #### B MP, MG1, CBC, PHOS ####[facility] [place], [place] [phone] Sodium [Moles/Vol] 133 mmol/L Low 136-144 [facility] Comment on above: Performed By: #### B MP, MG1, CBC, PHOS ####[place] [address] [place], [place] [phone] Urea nitrogen [Mass/Vol] 20 mg/dL Normal 9-24 [facility] Comment on above: Performed By: #### B MP, MG1, CBC, PHOS ####[address] [phone] CASE MGT INIT ASSESon 2020 CASE MGT INIT [facility] HNO ID: [id number] Author: Rosaline Keating RN Service: Case Management Author Type: Registered Nurse Type: Care Mgt Initial Assessment Filed: 08/17/2020 12:20 PM Note Text: CARE MANAGEMENT PROGRESS NOTE SERVICE DATE: 08/17/2020 SERVICE TIME: 12:17 PM LOS: 5 days Needs Prior to Discharge: Other: See Comment (medical janiya) CM UPDATE Accepting SNF [facility], [facility] , patient requested facility of choice. CM awaiting review of DIPSO. CM will continue to follow for DC planning. SIGNATURE: Rosaline Keating RN PATIENT NAME: Shad Rodriguez DATE: August 17, 2020 TIME: 12:16 PM PAGER/CONTACT #: [phone] Normal [facility] CBCon 08-17-2020 Absolute nRBC <0.01 Normal <0.01 [facility] Comment on above: Performed By: #### B MP, MG1, CBC, PHOS ####[facility] [address], [place] [phone] Erythrocyte distribution width (RBC) [Ratio] 13.7 % Normal 11.5-15.0 [facility] Comment on above: Performed By: #### B MP, MG1, CBC, PHOS ####[place] [address] [address], [place] [phone] Hematocrit (Bld) [Volume fraction] 40.9 % Normal 39.0-51.0 [facility] Comment on above: Performed By: #### B MP, MG1, CBC, PHOS ####[place] [address], [place] [phone] Hemoglobin (Bld) [Mass/Vol] 13.5 g/dL Normal 13.0-17.0 [facility] Comment on above: Performed By: #### B MP, MG1, CBC, PHOS ####[place] [address], [place] [phone] MCH 28.9 pG Normal 26.0-34.0 [facility] Comment on above: Performed By: #### B MP, MG1, CBC, PHOS ####[place] [address], [place] [phone] MCHC (RBC) [Mass/Vol] 33.0 g/dL Normal 30.5-36.0 [facility] Comment on above: Performed By: #### B MP, MG1, CBC, PHOS ####[place] [address], [place] [phone] MCV (RBC) [Entitic vol] 87.6 fL Normal 80.0-100.0 [facility] Comment on above: Performed By: #### B MP, MG1, CBC, PHOS ####[place] [address] [address], [place] [phone] Platelet mean volume (Bld) [Entitic vol] 10.5 fL Normal 9.0-12.7 [facility] Comment on above: Performed By: #### B MP, MG1, CBC, PHOS ####[address] [phone] Platelets (Bld) [#/Vol] 210 10*3/uL Normal 150-400 [facility] Comment on above: Performed By: #### B MP, MG1, CBC, PHOS ####[address] [phone] RBC (Bld) [#/Vol] 4.67 10*6/uL Normal 4.20-6.00 [facility] Comment on above: Performed By: #### B MP, MG1, CBC, PHOS ####[address] [phone] WBC (Bld) [#/Vol] 6.51 10*3/uL Normal 3.70-11.00 [facility] Comment on above: Performed By: #### B MP, MG1, CBC, PHOS ####[address] [phone] Magnesiumon 08-17-2020 Magnesium [Mass/Vol] 2.1 mg/dL Normal 1.7-2.[address] [facility] Comment on above: Performed By: #### B MP, MG1, CBC, PHOS ####[address] [phone] NURSING PROGon 08-17-2020 NURSING PROG HNO ID: [id number] Author: Dahlia Doss RN Service: ? Author [...] note was completed by: Dahlia Doss Normal [facility] Phosphoruson 08-17-2020 Phosphate [Mass/Vol] 3.0 mg/dL Normal 2.7-4.[address] [facility] Comment on above: Performed By: #### B MP, MG1, CBC, PHOS ####[address] [phone] Basic Metabolic Panlon 08-16 Anion gap [Moles/Vol] 11 mmol/L Normal 9-18 [facility] Comment on above: Performed By: #### P HOS, CBC, MG1, BMP ####[facility] [place], [place] [phone] Calcium [Mass/Vol] 9.2 mg/dL Normal 8.5-10.2 [facility] Comment on above: Performed By: #### P HOS, CBC, MG1, BMP ####[facility] [place], [place] [phone] Chloride [Moles/Vol] 100 mmol/L Normal 97-[address] [facility] Comment on above: Performed By: #### P HOS, CBC, MG1, BMP ####[place] [address] [place], [place] [phone] CO2 [Moles/Vol] 26 mmol/L Normal 22-30 [facility] Comment on above: Performed By: #### P HOS, CBC, MG1, BMP ####[facility] [place], [place] [phone] Creatinine [Mass/Vol] 1.02 mg/dL Normal 0.73-1.22 [facility] Comment on above: Performed By: #### P HOS, CBC, MG1, BMP ####[facility] [place], [place] [phone] eGFR- Amer. >60 Normal [facility] Comment on above: Performed By: #### P HOS, CBC, MG1, BMP ####[facility] [place], [place] [phone] eGFR-All Other Races >[address] [facility] Comment on above: Result Comment: eGFR [...] By: #### P HOS, CBC, MG1, BMP ####[facility] [place], [place] [phone] Glucose [Mass/Vol] 126 mg/dL High 74-99 [facility] Comment on above: Result Comment: The [place] Diabetes [employer] (ADA) provides guidance for cutoff [...] Standards of Medical Care in Diabetes 2016, [place] [employer]. Diabetes Care. 2016.39(Suppl 1). Performed By: #### P HOS, CBC, MG1, BMP ####[facility] [address] [place], [place] [phone] Potassium [Moles/Vol] 4.4 mmol/L Normal 3.7-5.1 [facility] Comment on above: Performed By: #### P HOS, CBC, MG1, BMP ####[facility] [place], [place] [phone] Sodium [Moles/Vol] 137 mmol/L Normal 136-144 [facility] Comment on above: Performed By: #### P HOS, CBC, MG1, BMP ####[facility] [place], [place] [phone] Urea nitrogen [Mass/Vol] 16 mg/dL Normal 9-24 [facility] Comment on above: Performed By: #### P HOS, CBC, MG1, BMP ####[facility] [address] [place], [place] [phone] CASE MGT INIT ANABELLA 2020 CASE MGT INIT ANABELLA HNO ID: [id number] Author: Rosaline Keating RN Service: Case Management Author Type: Registered Nurse Type: Care Mgt Initial Assessment Filed: 08/16/2020 5:34 PM Note Text: CARE MANAGEMENT: ASSESSMENT AND DISCHARGE PLAN SERVICE DATE: August 16, 2020 SERVICE TIME: 5:29 PM PRIMARY CARE PHYSICIAN: Cynthia Aguila CNP, STORES LABORER ADMISSION STATUS: Inpatient Needs Prior to Discharge: Accepting Facility MEDICAL: MEDICARE A AND B 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 Last discharge within 30 days: No Advance Directive: Current Advance Directive: Health Care Power of Lotus Notes Administrator In Chart: Yes Up To Date and [...] None Has the Patient Been in a [facility] Facility in the Past 30 days?: No SOCIAL: Living Arrangements: Home Lives With: Alone Financial Resources: Employed Primary Contact: Extended Emergency Contact Information Primary Emergency Contact: Enzo Hernandez Mobile Relation: Brother Supportive Patient Contact:: Yes Contact Resources: Family Family Name/Phone: Enzo Hernandez ( brother , lives in [place], [place] ) [phone] Caregiver AssessmentCaregiver is ready, willing and able [...] Mostly I feel financially burdened by my puf-dn-nnajyo expenses for my prescription medication:: 0 - Disagree Mostly Risk Score: 0 Patient is categorized as: Low risk < 2 Are you interested in bedside delivery of your medications? No Is Patient Psychosocially Complex?: No ASSESSMENT AND PLAN: Medical Needs: Medical Needs: Two or more chronic diseases Psychosocial Needs: Psychosocial Needs: None FREEDOM OF CHOICE EXPLAINED: Gunter of Choice Given: Yes Level of Care Discussed: [facility] Facility Financial Disclosure Provided: Yes Financial Disclosure Comments: Patient Provider List: [facility] Facility Provider list within the patient's requested geographic area shared with the patient/family: Yes within: 25 miles of zip code: [address] Quality and resource use metrics shared with the patient that are relevant to the patient's goals of care and treatment preferences:: Yes Metrics: Potentially Preventable 30-day Post Discharge Readmission Rates POTENTIAL TRANSITION PLANS [facility] Facility/Intermediate Care Facility Per chart review, patient [...] 10 total. Patient request referral placed to [facility] , awaiting responses. CM will continue to follow for medical needs. The patient will be transported home at d/c by friends via private auto. SIGNATURE: Rosaline Keating RN PATIENT NAME: Shad Rodriguez DATE: August 16, 2020 TIME: 5:29 PM PAGER/CONTACT #: [phone] Normal [facility] CBCon 08-16-2020 Absolute nRBC <0.01 Normal <0.01 [facility] Comment on above: Performed By: #### P HOS, CBC, MG1, BMP ####[facility] [address] [place], [place] [phone] Erythrocyte distribution width (RBC) [Ratio] 14.0 % Normal 11.5-15.0 [facility] Comment on above: Performed By: #### P HOS, CBC, MG1, BMP ####[facility] [address] [place], [place] [phone] Hematocrit (Bld) [Volume fraction] 41.1 % Normal 39.0-51.0 [facility] Comment on above: Performed By: #### P HOS, CBC, MG1, BMP ####[facility] [address] [place], [place] [phone] Hemoglobin (Bld) [Mass/Vol] 13.5 g/dL Normal 13.0-17.0 [facility] Comment on above: Performed By: #### P HOS, CBC, MG1, BMP ####[place] [address] [place] [phone] MCH 28.8 pG Normal 26.0-34.0 [facility] Comment on above: Performed By: #### P HOS, CBC, MG1, BMP ####[place] [address] [place] [phone] MCHC (RBC) [Mass/Vol] 32.8 g/dL Normal 30.5-36.0 [facility] Comment on above: Performed By: #### P HOS, CBC, MG1, BMP ####[place] [address] [place] [phone] MCV (RBC) [Entitic vol] 87.6 fL Normal 80.0-100.0 [facility] Comment on above: Performed By: #### P HOS, CBC, MG1, BMP ####[place] [address] [place] [phone] Platelet mean volume (Bld) [Entitic vol] 10.4 fL Normal 9.0-12.7 [facility] Comment on above: Performed By: #### P HOS, CBC, MG1, BMP ####[place] [address], [place] [phone] Platelets (Bld) [#/Vol] 195 10*3/uL Normal 150-400 [facility] Comment on above: Performed By: #### P HOS, CBC, MG1, BMP ####[place] [address], [place] [phone] RBC (Bld) [#/Vol] 4.69 10*6/uL Normal 4.20-6.00 [facility] Comment on above: Performed By: #### P HOS, CBC, MG1, BMP ####[place] [address] [place] [phone] WBC (Bld) [#/Vol] 5.55 10*3/uL Normal 3.70-11.00 [facility] Comment on above: Performed By: #### P HOS, CBC, MG1, BMP ####[facility] [address] [place], [place] [phone] CNDSon 08-16-2020 CNDS HNO ID: [id number] Author: Gaby Crowell APRN.STORES LABORER Service: General Surgery Author Type: Nurse Practitioner [...] PATIENT CONDITION AT DISCHARGE: Stable DISCHARGE DISPOSITION: [facility] Facility INFORMATION PROVIDED TO PATIENT: Discharge instructions, [...] Care Management (more content not included)... Normal [facility] Magnesiumon 08-16-2020 Magnesium [Mass/Vol] 2.2 mg/dL Normal 1.7-2.[address] [facility] Comment on above: Performed By: #### P HOS, CBC, MG1, BMP ####[facility] [address] [place], [place] [phone] NURSING PROGon 08-16-2020 NURSING PROG HNO ID: [id number] Author: Bee Gracia RN Service: ? Author [...] and blood glucose is 162. Gen. Surg motion picture commentator made aware and requested to come and see the patient. The following observation(s) were made: Patient is up in the chair. Will continue to monitor the patient. This note was completed by: Bee Gracia Normal [facility] Phosphoruson 08-16-2020 Phosphate [Mass/Vol] 3.4 mg/dL Normal 2.7-4.[address] [facility] Comment on above: Performed By: #### P HOS, CBC, MG1, BMP ####[facility] [address] [place], [place] [phone] THERAPY NTon 08-16-2020 THERAPY NT HNO ID: [id number] Author: Ynes Sorto CCC/ALINING INSPECTOR Service: Speech/Swallow Author Type: Speech Language Pathologist Type: Therapy (PT/OT/Speech/Resp) Filed: 08/16/2020 12:06 PM Note Text: [facility] Speech Pathology Consult BEDSIDE SWALLOWING [...] with questions or concerns. Ynes Sorto M.A. [facility]-ALINING INSPECTOR Speech Language Pathology Cell/Pager: [phone] DIAGNOSIS/HISTORY (per HANDP): Shad Rodriugez is a 69 year old male with [...] EXTRACTION DATE OF ADMISSION: 08/12/2020 CURRENT LOCATION: [place] [address] HEARING STATUS: Within functional limits BEHAVIORAL OBSERVATIONS: [...] served plain (more content not included)... 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 Normal [facility] Basic Metabolic Panlon 08-15 Anion gap [Moles/Vol] 12 mmol/L Normal 9-18 [facility] Comment on above: Performed By: #### C BCDISol BMP ####[place] [address] [place], [place] [phone] Calcium [Mass/Vol] 9.2 mg/dL Normal 8.5-10.2 [facility] Comment on above: Performed By: #### C BCDIF, BMP ####[place] [address] [place], [place] [phone] Chloride [Moles/Vol] 98 mmol/L Normal 97-[address] [facility] Comment on above: Performed By: #### C BCDIF, BMP ####[place] [address], [place] [phone] CO2 [Moles/Vol] 25 mmol/L Normal 22-30 [facility] Comment on above: Performed By: #### C BCDIF, BMP ####[facility], [place] [phone] Creatinine [Mass/Vol] 1.05 mg/dL Normal 0.73-1.22 [facility] Comment on above: Performed By: #### C BCDIF, BMP ####[place] [address], [place] [phone] eGFR- Amer. >60 Normal [facility] Comment on above: Performed By: #### C BCDIF, BMP ####[place] [address] [place], [place] [phone] eGFR-All Other Races >[address] [facility] Comment on above: Result Comment: eGFR [...] GFR. Performed By: #### C DONALDO BMP ####[address] [phone] Glucose [Mass/Vol] 132 mg/dL High 74-99 [facility] Comment on above: Result Comment: The [place] Diabetes [employer] (ADA) provides guidance for cutoff [...] Standards of Medical Care in Diabetes 2016, [place] [employer]. Diabetes Care. 2016.39(Suppl 1). Performed By: #### C KOBI FULTON ####[place] [address] [place], [place] [phone] Potassium [Moles/Vol] 4.6 mmol/L Normal 3.7-5.1 [facility] Comment on above: Performed By: #### C KOBI FULTON ####[address] [phone] Sodium [Moles/Vol] 135 mmol/L Low 136-144 [facility] Comment on above: Performed By: #### C BCGUSTAVO, BMP ####[address] [place], [place] [phone] Urea nitrogen [Mass/Vol] 17 mg/dL Normal 9-24 [facility] Comment on above: Performed By: #### C BCGUSTAVO, BMP ####[address] [place] [phone] CBC and Differentialon 08-15 Abs Baso 0.03 k/uL Normal <0.11 [facility] Comment on above: Performed By: #### C BCGUSTAVO, BMP ####[address] [place], [place] [phone] Abs Navajo 0.79 k/uL Normal <0.87 [facility] Comment on above: Performed By: #### C BCJOHNF, BMP ####[address] [place] [phone] Abs Neut 6.67 k/uL Normal 1.45-7.50 [facility] Comment on above: Performed By: #### C BCJOHNF, BMP ####[address] [place], [place] [phone] Absolute nRBC <0.01 Normal <0.01 [facility] Comment on above: Performed By: #### C BCDIF, BMP ####[address] [place], [place] [phone] Basophils/100 WBC (Bld) 0.4 % Normal [facility] Comment on above: Performed By: #### C BCDIF, BMP ####[address] [place], [place] [phone] DTYPE Auto Diff Normal [facility] Comment on above: Performed By: #### C BCDIF, BMP ####[facility], [place] [phone] Eosinophils (Bld) [#/Vol] 0.06 10*3/uL Normal <0.46 [facility] Comment on above: Performed By: #### C BCDIF, BMP ####[place] [address], [place] [phone] Eosinophils/100 WBC (Bld) 0.7 % Normal [facility] Comment on above: Performed By: #### C BCDIF, BMP ####[place] [address] [phone] Erythrocyte distribution width (RBC) [Ratio] 13.9 % Normal 11.5-15.0 [facility] Comment on above: Performed By: #### C BCDIF, BMP ####[place] [address] [phone] Hematocrit (Bld) [Volume fraction] 42.6 % Normal 39.0-51.0 [facility] Comment on above: Performed By: #### C BCDIF, BMP ####[place] [address], [place] [phone] Hemoglobin (Bld) [Mass/Vol] 14.2 g/dL Normal 13.0-17.0 [facility] Comment on above: Performed By: #### C BCDIF, BMP ####[place] [address] [phone] Lymphocytes (Bld) [#/Vol] 0.84 10*3/uL Low 1.00-4.00 [facility] Comment on above: Performed By: #### C BCDIF, BMP ####[place] [address], [place] [phone] Lymphocytes/100 WBC (Bld) 10.0 % Normal [facility] Comment on above: Performed By: #### C BCDIF, BMP ####[place] [address], [place] [phone] MCH 29.2 pG Normal 26.0-34.0 [facility] Comment on above: Performed By: #### C BCDIF, BMP ####[place] [address] [place] [phone] MCHC (RBC) [Mass/Vol] 33.3 g/dL Normal 30.5-36.0 [facility] Comment on above: Performed By: #### C BCDIF, BMP ####[place] [address] [place] [phone] MCV (RBC) [Entitic vol] 87.5 fL Normal 80.0-100.0 [facility] Comment on above: Performed By: #### C BCDIF, BMP ####[place] [address] [place] [phone] Monocytes/100 WBC (Bld) 9.4 % Normal [facility] Comment on above: Performed By: #### C BCDIF, BMP ####[place] [address] [place] [phone] Neutrophils/100 WBC (Bld) 79.5 % Normal [facility] Comment on above: Performed By: #### C BCDIF, BMP ####[place] [address] [place] [phone] NRBCs 0.0 /100 WBC Normal 0 [facility] Comment on above: Performed By: #### C BCDIF, BMP ####[place] [address] [address] [place] [phone] Platelet mean volume (Bld) [Entitic vol] 10.3 fL Normal 9.0-12.7 [facility] Comment on above: Performed By: #### C BCDIF, BMP ####[place] [address], [place] [phone] Platelets (Bld) [#/Vol] 197 10*3/uL Normal 150-400 [facility] Comment on above: Performed By: #### C BCDIF, BMP ####[facility] [place], [place] [phone] RBC (Bld) [#/Vol] 4.87 10*6/uL Normal 4.20-6.00 [facility] Comment on above: Performed By: #### C BCDIF, BMP ####[facility] [place], [place] [phone] WBC (Bld) [#/Vol] 8.39 10*3/uL Normal 3.70-11.00 [facility] Comment on above: Performed By: #### C BCDIF, BMP ####[facility] [place], [place] [phone] THERAPY NTon 08-15-2020 THERAPY NT HNO ID: [id number] Author: Fina Boyle, PT Service: Physical Therapy Author Type: Physical Therapist Type: Therapy (PT/OT/Speech/Resp) Filed: 08/15/2020 3:37 PM Note Text: Physical Therapy Treatment SERVICE DATE: 08/15/2020 SERVICE TIME: 1353 to 1418 ROOM: [place] [address] Recommended Discharge Disposition: Home PT Recommended Discharge [...] Bed/Bath: 0 Tub/Shower Type: walk-in 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 Prior Functional Level: Within Functional Limits [...] Diagnosis: Reduced mobility-other Interventions Provided: Therapeutic Activity (52771);Gait Training (95992) Therapeutic Activity (96496) Treatment Minutes: 10 $ Therapeutic Activity (11154) Billed Units: 1 unit Gait Training (85551) Treatment Minutes: 15 $ Gait Training (67416) Billed Units: 1 unit Training AND education [...] August 15, 2020 TIME: 3:37 PM Normal [facility] Basic Metabolic Panlon 08-14 Anion gap [Moles/Vol] 10 mmol/L Normal 9-18 [facility] Comment on above: Performed By: #### C BCDIF, BMP, PHOS ####[address] [phone] Calcium [Mass/Vol] 9.3 mg/dL Normal 8.5-10.2 [facility] Comment on above: Performed By: #### C BCDIF, BMP, PHOS ####[place] [address] [address] [place] [phone] Chloride [Moles/Vol] 100 mmol/L Normal 97-[address] [facility] Comment on above: Performed By: #### C BCDIF, BMP, PHOS ####[facility] [place] [phone] CO2 [Moles/Vol] 27 mmol/L Normal 22-30 [facility] Comment on above: Performed By: #### C BCDIF, BMP, PHOS ####[facility] [place], [place] [phone] Creatinine [Mass/Vol] 1.15 mg/dL Normal 0.73-1.22 [facility] Comment on above: Performed By: #### C BCDIF, BMP, PHOS ####[facility] [place], [place] [phone] eGFR- Amer. >60 Normal [facility] Comment on above: Performed By: #### C KOBI FULTON PHOS ####[facility] [place], [place] [phone] eGFR-All Other Races >[address] [facility] Comment on above: Result Comment: eGFR [...] Performed By: #### C KOBI FULTON PHOS ####[facility] [place], [place] [phone] Glucose [Mass/Vol] 148 mg/dL High 74-99 [facility] Comment on above: Result Comment: The [place] [employer] (ADA) provides guidance for cutoff [...] Standards of Medical Care in Diabetes 2016, [place] [employer]. Diabetes Care. 2016.39(Suppl 1). Performed By: #### C KOBI FULTON PHOS ####[facility] [place], [place] [phone] Potassium [Moles/Vol] 4.3 mmol/L Normal 3.7-5.1 [facility] Comment on above: Performed By: #### C BCDIF, BMP, PHOS ####[facility] [address], [place] [phone] Sodium [Moles/Vol] 137 mmol/L Normal 136-144 [facility] Comment on above: Performed By: #### C BCDIF, BMP, PHOS ####[facility], [place] [phone] Urea nitrogen [Mass/Vol] 17 mg/dL Normal 9-24 [facility] Comment on above: Performed By: #### C BCDIF, BMP, PHOS ####[facility], [place] [phone] Anion gap [Moles/Vol] 7 mmol/L Low 9-18 [facility] Comment on above: Performed By: #### M G1, BMP, PHOS, CBCDIF ####[facility], [place] [phone] Calcium [Mass/Vol] 9.2 mg/dL Normal 8.5-10.2 [facility] Comment on above: Performed By: #### M G1, BMP, PHOS, CBCDIF ####[facility], [place] [phone] Chloride [Moles/Vol] 100 mmol/L Normal 97-[address] [facility] Comment on above: Performed By: #### M G1, BMP, PHOS, CBCDIF ####[facility], [place] [phone] CO2 [Moles/Vol] 30 mmol/L Normal 22-30 [facility] Comment on above: Performed By: #### M G1, BMP, PHOS, CBCDIF ####[facility], [place] [phone] Creatinine [Mass/Vol] 1.13 mg/dL Normal 0.73-1.22 [facility] Comment on above: Performed By: #### M G1, BMP, PHOS, CBCDIF ####[facility] [address] [place], [place] [phone] eGFR- Amer. >60 Normal [facility] Comment on above: Performed By: #### M G1, BMP, PHOS, CBCDIF ####[facility] [address] [place], [place] [phone] eGFR-All Other Races >[address] [facility] Comment on above: Result Comment: eGFR [...] #### M G1, BMP, PHOS, CBCDIF ####[facility] [address] [place], [place] [phone] Glucose [Mass/Vol] 131 mg/dL High 74-99 [facility] Comment on above: Result Comment: The [place] [employer] (ADA) provides guidance for cutoff [...] Standards of Medical Care in Diabetes 2016, [place] [employer]. Diabetes Care. 2016.39(Suppl 1). Performed By: #### M G1, BMP, PHOS, CBCDIF ####[place] [address], [place] [phone] Potassium [Moles/Vol] 4.4 mmol/L Normal 3.7-5.1 [facility] Comment on above: Performed By: #### M G1, BMP, PHOS, CBCDIF ####[place] [address] [address] [place] [phone] Sodium [Moles/Vol] 137 mmol/L Normal 136-144 [facility] Comment on above: Performed By: #### M G1, BMP, PHOS, CBCDIF ####[place] [address], [place] [phone] Urea nitrogen [Mass/Vol] 17 mg/dL Normal 9-24 [facility] Comment on above: Performed By: #### M G1, BMP, PHOS, CBCDIF ####[place] [address], [place] [phone] CBC and Differentialon 08-14 Abs Baso <0.03 Normal <0.11 [facility] Comment on above: Performed By: #### C BCDIF, BMP, PHOS ####[address] [place], [place] [phone] Abs Eosin <0.03 Normal <0.46 [facility] Comment on above: Performed By: #### C BCDIF, BMP, PHOS ####[place] [address], [place] [phone] Abs Navajo 0.75 k/uL Normal <0.87 [facility] Comment on above: Performed By: #### C BCDIF, BMP, PHOS ####[place] [address], [place] [phone] Abs Neut 7.52 k/uL High 1.45-7.50 [facility] Comment on above: Performed By: #### C BCDIF, BMP, PHOS ####[place] [address] [place] [phone] Absolute nRBC <0.01 Normal <0.01 [facility] Comment on above: Performed By: #### C BCDIF, BMP, PHOS ####[place] [address] [place] [phone] Basophils/100 WBC (Bld) 0.1 % Normal [facility] Comment on above: Performed By: #### C BCDIF, BMP, PHOS ####[place] [address] [phone] DTYPE Auto Diff Normal [facility] Comment on above: Performed By: #### C BCDIF, BMP, PHOS ####[place] [address] [place] [phone] Eosinophils/100 WBC (Bld) 0.2 % Normal [facility] Comment on above: Performed By: #### C BCDIF, BMP, PHOS ####[place] [address] [phone] Erythrocyte distribution width (RBC) [Ratio] 14.0 % Normal 11.5-15.0 [facility] Comment on above: Performed By: #### C BCDIF, BMP, PHOS ####[place] [address] [place] [phone] Hematocrit (Bld) [Volume fraction] 41.8 % Normal 39.0-51.0 [facility] Comment on above: Performed By: #### C BCDIF, BMP, PHOS ####[place] [address] [place] [phone] Hemoglobin (Bld) [Mass/Vol] 13.8 g/dL Normal 13.0-17.0 [facility] Comment on above: Performed By: #### C BCDIF, BMP, PHOS ####[place] [address], [place] [phone] Lymphocytes (Bld) [#/Vol] 0.56 10*3/uL Low 1.00-4.00 [facility] Comment on above: Performed By: #### C BCDIF, BMP, PHOS ####[place] [address], [place] [phone] Lymphocytes/100 WBC (Bld) 6.3 % Normal [facility] Comment on above: Performed By: #### C BCDIF, BMP, PHOS ####[place] [address] [place] [phone] MCH 29.0 pG Normal 26.0-34.0 [facility] Comment on above: Performed By: #### C BCDIF BMP, PHOS ####[place] [address] [place] [phone] MCHC (RBC) [Mass/Vol] 33.0 g/dL Normal 30.5-36.0 [facility] Comment on above: Performed By: #### C BCDIF, BMP, PHOS ####[place] [address], [place] [phone] MCV (RBC) [Entitic vol] 87.8 fL Normal 80.0-100.0 [facility] Comment on above: Performed By: #### C BCDIF, BMP, PHOS ####[place] [address], [place] [phone] Monocytes/100 WBC (Bld) 8.5 % Normal [facility] Comment on above: Performed By: #### C BCDIF, BMP, PHOS ####[place] [address], [place] [phone] Neutrophils/100 WBC (Bld) 84.9 % Normal [facility] Comment on above: Performed By: #### C BCDIF, BMP, PHOS ####[facility] [address]Cong[address], [place] [phone] NRBCs 0.0 /100 WBC Normal 0 [facility] Comment on above: Performed By: #### C BCDIF, BMP, PHOS ####[facility], [place] [phone] Platelet mean volume (Bld) [Entitic vol] 10.1 fL Normal 9.0-12.7 [facility] Comment on above: Performed By: #### C BCDIF, BMP, PHOS ####[place] [address] [place] [phone] Platelets (Bld) [#/Vol] 184 10*3/uL Normal 150-400 [facility] Comment on above: Performed By: #### C BCDIF, BMP, PHOS ####[facility] [place] [phone] RBC (Bld) [#/Vol] 4.76 10*6/uL Normal 4.20-6.00 [facility] Comment on above: Performed By: #### C BCDIF, BMP, PHOS ####[place] [address], [place] [phone] WBC (Bld) [#/Vol] 8.86 10*3/uL Normal 3.70-11.00 [facility] Comment on above: Performed By: #### C BCDIF, BMP, PHOS ####[facility], [place] [phone] Abs Baso <0.03 Normal <0.11 [facility] Comment on above: Performed By: #### M G1, BMP, PHOS, CBCDIF ####[facility], [place] [phone] Abs Eosin <0.03 Normal <0.46 [facility] Comment on above: Performed By: #### M G1, BMP, PHOS, CBCDIF ####[place] [address] [place] [phone] Abs Navajo 0.73 k/uL Normal <0.87 [facility] Comment on above: Performed By: #### M G1, BMP, PHOS, CBCDIF ####[place] [address] [place] [phone] Abs Neut 6.19 k/uL Normal 1.45-7.50 [facility] Comment on above: Performed By: #### M G1, BMP, PHOS, CBCDIF ####[place] [address] [place] [phone] Absolute nRBC <0.01 Normal <0.01 [facility] Comment on above: Performed By: #### M G1, BMP, PHOS, CBCDIF ####[place] [address] [place] [phone] Basophils/100 WBC (Bld) 0.3 % Normal [facility] Comment on above: Performed By: #### M G1, BMP, PHOS, CBCDIF ####[place] [address] [place] [phone] DTYPE Auto Diff Normal [facility] Comment on above: Performed By: #### M G1, BMP, PHOS, CBCDIF ####[place] [address] [place] [phone] Eosinophils/100 WBC (Bld) 0.3 % Normal [facility] Comment on above: Performed By: #### M G1, BMP, PHOS, CBCDIF ####[place] [address] [place] [phone] Erythrocyte distribution width (RBC) [Ratio] 14.1 % Normal 11.5-15.0 [facility] Comment on above: Performed By: #### M G1, BMP, PHOS, CBCDIF ####[facility], [place] [phone] Hematocrit (Bld) [Volume fraction] 41.3 % Normal 39.0-51.0 [facility] Comment on above: Performed By: #### M G1, BMP, PHOS, CBCDIF ####[facility], [place] [phone] Hemoglobin (Bld) [Mass/Vol] 13.7 g/dL Normal 13.0-17.0 [facility] Comment on above: Performed By: #### M G1, BMP, PHOS, CBCDIF ####[place] [address], [place] [phone] Lymphocytes (Bld) [#/Vol] 0.80 10*3/uL Low 1.00-4.00 [facility] Comment on above: Performed By: #### M G1, BMP, PHOS, CBCDIF ####[place] [address], [place] [phone] Lymphocytes/100 WBC (Bld) 10.3 % Normal [facility] Comment on above: Performed By: #### M G1, BMP, PHOS, CBCDIF ####[place] [address], [place] [phone] MCH 29.0 pG Normal 26.0-34.0 [facility] Comment on above: Performed By: #### M G1, BMP, PHOS, CBCDIF ####[facility], [place] [phone] MCHC (RBC) [Mass/Vol] 33.2 g/dL Normal 30.5-36.0 [facility] Comment on above: Performed By: #### M G1, BMP, PHOS, CBCDIF ####[place] [address]Cleveland[address], [place] [phone] MCV (RBC) [Entitic vol] 87.3 fL Normal 80.0-100.0 [facility] Comment on above: Performed By: #### M G1, BMP, PHOS, CBCDIF ####[place] [address], [place] [phone] Monocytes/100 WBC (Bld) 9.4 % Normal [facility] Comment on above: Performed By: #### M G1, BMP, PHOS, CBCDIF ####[place] [address] [place] [phone] MPV Unable to report Normal 9.0-12.7 [facility] Comment on above: Performed By: #### M G1, BMP, PHOS, CBCDIF ####[place] [address], [place] [phone] Neutrophils/100 WBC (Bld) 79.7 % Normal [facility] Comment on above: Performed By: #### M G1, BMP, PHOS, CBCDIF ####[place] [address] [place] [phone] NRBCs 0.0 /100 WBC Normal 0 [facility] Comment on above: Performed By: #### M G1, BMP, PHOS, CBCDIF ####[place] [address], [place] [phone] Platelet Count Platelets Clumped, Estimate Normal Normal 150-400 [facility] Comment on above: Result Comment: Resu lt checked and verified No clot detected. Platelet count confirmed by manual review of peripheral blood smear. Performed By: #### M G1, BMP, PHOS, CBCDIF ####[place] [address], [place] [phone] RBC (Bld) [#/Vol] 4.73 10*6/uL Normal 4.20-6.00 [facility] Comment on above: Performed By: #### M G1, BMP, PHOS, CBCDIF ####[address] [phone] WBC (Bld) [#/Vol] 7.76 10*3/uL Normal 3.70-11.00 [facility] Comment on above: Performed By: #### M G1, BMP, PHOS, CBCDIF ####[place] [address] [place], [place] [phone] Magnesiumon 08-14-2020 Magnesium [Mass/Vol] 2.3 mg/dL Normal 1.7-2.[address] [facility] Comment on above: Performed By: #### M G1 ####[address] [phone] Magnesium [Mass/Vol] 2.2 mg/dL Normal 1.7-2.[address] [facility] Comment on above: Performed By: #### M G1, BMP, PHOS, CBCDIF ####[address] [phone] Phosphoruson 08-14-2020 Phosphate [Mass/Vol] 2.1 mg/dL Low 2.7-4.[address] [facility] Comment on above: Performed By: #### C BCDIF, BMP, PHOS ####[address] [phone] Phosphate [Mass/Vol] 2.6 mg/dL Low 2.7-4.[address] [facility] Comment on above: Performed By: #### M G1, BMP, PHOS, CBCDIF ####[facility] [place], [place] [phone] ANES Shanelle 08-13-2020 ANES POST HNO ID: [id number] Author: Tristan Orellana DO Service: Anesthesiology Author [...] 13, 2020 TIME: 2:11 PM PAGER/CONTACT #: [phone] Normal [facility] Basic Metabolic Panlon 08-13 Anion gap [Moles/Vol] 12 mmol/L Normal 9-18 [facility] Comment on above: Performed By: #### C DONALDO PHOS, BMP ####[facility] [address] [place], [place] [phone] Calcium [Mass/Vol] 9.2 mg/dL Normal 8.5-10.2 [facility] Comment on above: Performed By: #### C BCDIF PHOS, BMP ####[facility], [place] [phone] Chloride [Moles/Vol] 100 mmol/L Normal 97-[address] [facility] Comment on above: Performed By: #### C MERNA FULTON, BMP ####[facility], [place] [phone] CO2 [Moles/Vol] 21 mmol/L Low 22-30 [facility] Comment on above: Performed By: #### C MERNA FULTON, BMP ####[place] [address] [place], [place] [phone] Creatinine [Mass/Vol] 1.20 mg/dL Normal 0.73-1.22 [facility] Comment on above: Performed By: #### C MERNA FULTON, BMP ####[place] [address] [place], [place] [phone] eGFR- Amer. >60 Normal [facility] Comment on above: Performed By: #### C MERNA FULTON, BMP ####[place] [address] [place], [place] [phone] eGFR-All Other Races >[address] [facility] Comment on above: Result Comment: eGFR [...] Performed By: #### C BCMERNA CHEN, BMP ####[facility], [place] [phone] Glucose [Mass/Vol] 149 mg/dL High 74-99 [facility] Comment on above: Result Comment: The [place] [employer] (ADA) provides guidance for cutoff [...] Standards of Medical Care in Diabetes 2016, [place] [employer]. Diabetes Care. 2016.39(Suppl 1). Performed By: #### C MERNA FULTON BMP ####[place] [address], [place] [phone] Potassium Unable to assay due to interference from hemolysis. Suggest reorder as clinically indicated. Normal 3.7-5.1 [facility] Comment on above: Result Comment: Call ed to and read back by: BLAKE SHAH [id number] 08/13/2020 BRADLEY Performed By: #### C MERNA FULTON BMP ####[facility] [place], [place] [phone] Sodium [Moles/Vol] 133 mmol/L Low 136-144 [facility] Comment on above: Performed By: #### C MERNA FULTON BMP ####[facility], [place] [phone] Urea nitrogen [Mass/Vol] 20 mg/dL Normal 9-24 [facility] Comment on above: Performed By: #### C MERNA FULTON BMP ####[facility], [place] [phone] CBC and Differentialon 08-13 Abs Baso <0.03 Normal <0.11 [facility] Comment on above: Performed By: #### C MERNA FULTON BMP ####[facility], [place] [phone] Abs Eosin <0.03 Normal <0.46 [facility] Comment on above: Performed By: #### C DONALDO PHOS, BMP ####[place] [address], [place] [phone] Abs Navajo 0.96 k/uL High <0.87 [facility] Comment on above: Performed By: #### C TANIA FULTONS, BMP ####[place] [address] [place] [phone] Abs Neut 12.86 k/uL High 1.45-7.50 [facility] Comment on above: Performed By: #### C MERNA FULTON, BMP ####[place] [address], [place] [phone] Absolute nRBC <0.01 Normal <0.01 [facility] Comment on above: Performed By: #### C MERNA FULTON, BMP ####[place] [address], [place] [phone] Basophils/100 WBC (Bld) 0.1 % Normal [facility] Comment on above: Performed By: #### C TANIA FULTONS, BMP ####[place] [address], [place] [phone] DTYPE Auto Diff Normal [facility] Comment on above: Performed By: #### C DONALDO PHOS, BMP ####[place] [address], [place] [phone] Eosinophils/100 WBC (Bld) 0.0 % Normal [facility] Comment on above: Performed By: #### C DONALDO PHOS, BMP ####[place] [address], [place] [phone] Erythrocyte distribution width (RBC) [Ratio] 13.7 % Normal 11.5-15.0 [facility] Comment on above: Performed By: #### C MERNA FULTON, BMP ####[place] [address] [place] [phone] Hematocrit (Bld) [Volume fraction] 44.0 % Normal 39.0-51.0 [facility] Comment on above: Performed By: #### C MERNA FULTON, BMP ####[place] [address] [place] [phone] Hemoglobin (Bld) [Mass/Vol] 14.6 g/dL Normal 13.0-17.0 [facility] Comment on above: Performed By: #### C MERNA FULTON, BMP ####[place] [address] [place] [phone] Lymphocytes (Bld) [#/Vol] 0.49 10*3/uL Low 1.00-4.00 [facility] Comment on above: Performed By: #### C MERNA FULTON, BMP ####[place] [address] [place] [phone] Lymphocytes/100 WBC (Bld) 3.4 % Normal [facility] Comment on above: Performed By: #### C MERNA FULTON, BMP ####[place] [address] [place] [phone] MCH 29.2 pG Normal 26.0-34.0 [facility] Comment on above: Performed By: #### C BCGUSTAVO PHOS, BMP ####[place] [address] [place] [phone] MCHC (RBC) [Mass/Vol] 33.2 g/dL Normal 30.5-36.0 [facility] Comment on above: Performed By: #### C BCGUSTAVO PHOS, BMP ####[place] [address] [place] [phone] MCV (RBC) [Entitic vol] 88.0 fL Normal 80.0-100.0 [facility] Comment on above: Performed By: #### C TANIA FULTONS, BMP ####[facility], [place] [phone] Monocytes/100 WBC (Bld) 6.7 % Normal [facility] Comment on above: Performed By: #### C BCGUSTAVO PHOS, BMP ####[place] [address] [phone] Neutrophils/100 WBC (Bld) 89.8 % Normal [facility] Comment on above: Performed By: #### C TANIA FULTONS, BMP ####[place] [address], [place] [phone] NRBCs 0.0 /100 WBC Normal 0 [facility] Comment on above: Performed By: #### C MERNA FULTON, BMP ####[place] [address], [place] [phone] Platelet mean volume (Bld) [Entitic vol] 10.2 fL Normal 9.0-12.7 [facility] Comment on above: Performed By: #### C TANIA FULTONS, BMP ####[place] [address], [place] [phone] Platelets (Bld) [#/Vol] 200 10*3/uL Normal 150-400 [facility] Comment on above: Performed By: #### C DONALDO PHOS, BMP ####[place] [address], [place] [phone] RBC (Bld) [#/Vol] 5.00 10*6/uL Normal 4.20-6.00 [facility] Comment on above: Performed By: #### C DONALDO PHOS, BMP ####[address] [phone] WBC (Bld) [#/Vol] 14.32 10*3/uL High 3.70-11.[address] [facility] Comment on above: Performed By: #### C DONALDO PHOS, BMP ####[address] [phone] Magnesiumon 08-13-2020 Magnesium [Mass/Vol] 2.0 mg/dL Normal 1.7-2.[address] [facility] Comment on above: Performed By: #### M G1 ####[address] [phone] Phosphoruson 08-13-2020 Phosphate [Mass/Vol] 2.9 mg/dL Normal 2.7-4.[address] [facility] Comment on above: Performed By: #### C DONALDO PHOS, BMP ####[address] [phone] Potassiumon 08-13-2020 Potassium [Moles/Vol] 4.7 mmol/L Normal 3.7-5.1 [facility] Comment on above: Performed By: #### K 1 ####[address] [phone] THERAPY NTon 08-13-2020 THERAPY NT HNO ID: [id number] Author: Arlin Mantilla PT Service: Physical Therapy Author Type: Physical Therapist Type: Therapy (PT/OT/Speech/Resp) Filed: 08/13/2020 4:38 PM Note Text: Physical Therapy Evaluation SERVICE DATE: 08/13/2020 SERVICE TIME: 1550 to 1620 ROOM: [place] [address] Recommended Discharge Disposition: Subacute/SNF Recommended Discharge Disposition [...] Bed/Bath: 0 Tub/Shower Type: walk-in 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 SIG (more content not included)... 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 Pt reported has A to care [...] Level Ad (more content not included)... Normal [facility] THERAPY NT HNO ID: [id number] Author: Alyse Henson OT/Roger Service: Occupational Therapy Author Type: Occupational Therapist Type: Therapy (PT/OT/Speech/Resp) Filed: 08/13/2020 10:51 AM Note Text: OCCUPATIONAL THERAPY MISSED VISIT SERVICE DATE: 08/13/2020 SERVICE TIME: 1048 to 1048 ROOM: [place] [address] Attempted Evaluation. Patient not seen due to Another service at bedside. PT at bedside. Will re-attempt as able. SIGNATURE: Alyse Henson OT/Roger PATIENT NAME: Shad Rodriguez DATE: August 13, 2020 TIME: 10:51 AM Normal [facility] NT HNO ID: [id number] Author: Arlin Mantilla PT Service: Physical Therapy Author Type: Physical Therapist Type: Therapy (PT/OT/Speech/Resp) Filed: 08/13/2020 10:49 AM Note Text: PHYSICAL THERAPY MISSED VISIT SERVICE DATE: 08/13/2020 SERVICE TIME: 1048 to 1048 ROOM: [place] [address] Attempted Evaluation. Patient not seen due to Declined. Pt requesting PT to reattempt after lunch. PT will reattempt as able and appropriate. SIGNATURE: Arlin Mantilla PT PATIENT NAME: Shad Rodriguez DATE: August 13, 2020 TIME: 10:49 AM Normal [facility] XR ABDOMEN 1V SUPINEon 08-13 XR [...] bases are clear. IMPRESSION: No dilated bowel. Envelope Stuffer: PSCB Transcribe Date/Time: Aug 13 2020 12:32P Dictated by : YRN ARROYO MD This examination was interpreted and the report reviewed and electronically signed by: YRN ARROYO MD on Aug 13 2020 12:33PM EST [id number] Normal [facility] ALLIED HEALTHon 08-12-2020 ALLIED HEALTH HNO ID: [id number] Author: Chaplain Stephanie Student Service: Spiritual Care Author Type: Student Type: Allied Health Filed: 08/12/2020 8:52 AM Note Text: SPIRITUAL CARE Spiritual Care Visit Record Name: Shad Rodriguez Date: August 12, 2020 Type of Visit: Preoperative Prayer/Visit Visit was with (pt, family, other) and name(s): patient. Ministry Provided During Visit: Prayer / Meditation Notes: Structural Steel Worker Helper responded to a request for pre-surgery prayer. Pt appeared to be a good spirits, expressed optimism and gratitude about his surgery. Structural Steel Worker Helper offered prayer and invited Pt to further utilize [facility] services in needed. Referrals: No referral made Will See: As Needed Only Follow-up Notes: Informed patient of Structural Steel Worker Helper availability Structural Steel Worker Helper Signature: Chaplain Stephanie Student To contact the Spiritual Care Department: Please call [phone] or Page the On-Call Structural Steel Worker Helper at pager [phone] Thank you for the opportunity to be of service. This is an electronically created document. IF PRINTED, PLEASE DO NOT REMOVE FROM THE CHART OR MODIFY PRINTED COPY. Normal [facility] BRIEF OP NOTon 08-12-2020 BRIEF OP NOT HNO ID: [id number] Author: Cassius Gatica MD Service: General Surgery Author Type: Resident Type: Brief Op Note Filed: 08/12/2020 11:53 AM Note Text: BRIEF OP NOTE LOG ID: [id number] Surgery/Procedure Date: 08/12/2020 Incision/Procedure Start Time: 9:21 AM Incision Close/Procedure End Time: 11:36 AM Surgeon(s)/Procedurali st(s) and Charter Coach Driver(s): Surgeon(s) and Role: * Felicia Amaya MD [...] 12, 2020 TIME: 11:50 AM PAGER/CONTACT #: [phone] [facility] NURSING PROGon 07-02-2021 NURSING PROG HNO ID: [id number] Author: Alee Baxter RN Service: ? Author [...] This note was completed by: Alee Baxter [facility] OPERATIVE NOon 08-12-2020 OPERATIVE NO HNO ID: [id number] Author: Felicia Amaya MD Service: General Surgery Author Type: Physician Type: Operative Report Filed: 08/12/2020 2:55 PM Note Text: OPERATIVE REPORT NAME: Shad Rodriguez [facility] #: [id number] DATE: August 12, 2020 AGE: [age] year old SURGEON 1: Felicia Amaya MD SURGEON 2: FACULTY INSTRUCTOR 1: Adriel Gatica MD FACULTY INSTRUCTOR 2: OPERATION: 1. Open right myofascial advancement [...] ERAS Protocol: Yes Felicia Amaya MD Normal [facility] CBC and Differentialon 08-09 Abs Baso <0.03 Normal <0.11 [facility] Comment on above: Performed By: #### C MP, CBCDIF ####[facility] [address], [place] [phone] Abs Navajo 0.45 k/uL Normal <0.87 [facility] Comment on above: Performed By: #### C MP, CBCDIF ####[facility], [place] [phone] Abs Neut 3.89 k/uL Normal 1.45-7.50 [facility] Comment on above: Performed By: #### C MP, CBCDIF ####[facility] [place] [phone] Absolute nRBC <0.01 Normal <0.01 [facility] Comment on above: Performed By: #### C MP, CBCDIF ####[place] [address] [place] [phone] Basophils/100 WBC (Bld) 0.4 % Normal [facility] Comment on above: Performed By: #### C MP, CBCDIF ####[facility] [phone] DTYPE Auto Diff Normal [facility] Comment on above: Performed By: #### C MP, CBCDIF ####[facility] [phone] Eosinophils (Bld) [#/Vol] 0.15 10*3/uL Normal <0.46 [facility] Comment on above: Performed By: #### C MP, CBCDIF ####[facility] [place] [phone] Eosinophils/100 WBC (Bld) 2.9 % Normal [facility] Comment on above: Performed By: #### C MP, CBCDIF ####[facility] [address] [place] [phone] Erythrocyte distribution width (RBC) [Ratio] 13.3 % Normal 11.5-15.0 [facility] Comment on above: Performed By: #### C MP, CBCDIF ####[place] [address], [place] [phone] Hematocrit (Bld) [Volume fraction] 44.5 % Normal 39.0-51.0 [facility] Comment on above: Performed By: #### C MP, CBCDIF ####[place] [address], [place] [phone] Hemoglobin (Bld) [Mass/Vol] 14.7 g/dL Normal 13.0-17.0 [facility] Comment on above: Performed By: #### C MP, CBCDIF ####[place] [address], [place] [phone] Lymphocytes (Bld) [#/Vol] 0.68 10*3/uL Low 1.00-4.00 [facility] Comment on above: Performed By: #### C MP, CBCDIF ####[place] [address], [place] [phone] Lymphocytes/100 WBC (Bld) 13.1 % Normal [facility] Comment on above: Performed By: #### C MP, CBCDIF ####[place] [address], [place] [phone] MCH 28.7 pG Normal 26.0-34.0 [facility] Comment on above: Performed By: #### C MP, CBCDIF ####[facility], [place] [phone] MCHC (RBC) [Mass/Vol] 33.0 g/dL Normal 30.5-36.0 [facility] Comment on above: Performed By: #### C MP, CBCDIF ####[facility], [place] [phone] MCV (RBC) [Entitic vol] 86.9 fL Normal 80.0-100.0 [facility] Comment on above: Performed By: #### C MP, CBCDIF ####[facility], [place] [phone] Monocytes/100 WBC (Bld) 8.7 % Normal [facility] Comment on above: Performed By: #### C MP, CBCDIF ####[place] [address], [place] [phone] Neutrophils/100 WBC (Bld) 74.9 % Normal [facility] Comment on above: Performed By: #### C MP, CBCDIF ####[place] [address], [place] [phone] NRBCs 0.0 /100 WBC Normal 0 [facility] Comment on above: Performed By: #### C MP, CBCDIF ####[place] [address], [place] [phone] Platelet mean volume (Bld) [Entitic vol] 10.5 fL Normal 9.0-12.7 [facility] Comment on above: Performed By: #### C MP, CBCDIF ####[place] [address], [place] [phone] Platelets (Bld) [#/Vol] 193 10*3/uL Normal 150-400 [facility] Comment on above: Performed By: #### C MP, CBCDIF ####[place] [address], [place] [phone] RBC (Bld) [#/Vol] 5.12 10*6/uL Normal 4.20-6.00 [facility] Comment on above: Performed By: #### C MP, CBCDIF ####[place] [address], [place] [phone] WBC (Bld) [#/Vol] 5.19 10*3/uL Normal 3.70-11.00 [facility] Comment on above: Performed By: #### C MP, CBCDIF ####[facility] [address] [place], [place] [phone] CNNURSEon 08-09-2020 [facility] Nurse Visit (RAIZA) SHAD RODRIGUEZ ([id number]) 1950 M Date Time Provider Department 08/09/20 [...] Department: GENERAL SURGERY Referring Provider: FELICIA AMAYA [[id number]] Allergies As of Date: 08/09/2020 Noted Allergy [...] by LEDY JOHNS RN on 08/09/20 Normal [facility] Comp Metabolic Panelon 08-09 Albumin [Mass/Vol] 4.0 g/dL Normal 3.9-4.9 [facility] Comment on above: Performed By: #### C SEAMUS CBCDIF ####[facility] [address] [place], [place] [phone] ALP [Catalytic activity/Vol] 121 U/L High 38-113 [facility] Comment on above: Performed By: #### C SEAMUS CBCDIF ####[facility] [address] [place], [place] [phone] ALT [Catalytic activity/Vol] 57 U/L High 10-54 [facility] Comment on above: Performed By: #### C SEAMUS CBCDIF ####[facility] [address] [place], [place] [phone] Anion gap [Moles/Vol] 8 mmol/L Low 9-18 [facility] Comment on above: Performed By: #### C MP, CBCDIF ####[facility], [place] [phone] AST [Catalytic activity/Vol] 66 U/L High 14-40 [facility] Comment on above: Performed By: #### C MP, CBCDIF ####[place] [address] [phone] Bilirubin [Mass/Vol] 0.5 mg/dL Normal 0.2-1.[address] [facility] Comment on above: Performed By: #### C MP, CBCDIF ####[place] [address], [place] [phone] Calcium [Mass/Vol] 9.5 mg/dL Normal 8.5-10.2 [facility] Comment on above: Performed By: #### C MP, CBCDIF ####[place] [address] [place] [phone] Chloride [Moles/Vol] 104 mmol/L Normal 97-[address] [facility] Comment on above: Performed By: #### C MP, CBCDIF ####[place] [address] [place] [phone] CO2 [Moles/Vol] 26 mmol/L Normal 22-30 [facility] Comment on above: Performed By: #### C MP, CBCDIF ####[place] [address], [place] [phone] Creatinine [Mass/Vol] 1.32 mg/dL High 0.73-1.22 [facility] Comment on above: Performed By: #### C MP, CBCDIF ####[place] [address], [place] [phone] eGFR- Amer. >60 Normal [facility] Comment on above: Performed By: #### C MP, CBCDIF ####[place] [address], [place] [phone] eGFR-All Other Races 54 . Normal [facility] Comment on above: Result Comment: eGFR [...] GFR. Performed By: #### C SEAMUS, CBCDIF ####[facility] [place], [place] [phone] Glucose [Mass/Vol] 122 mg/dL High 74-99 [facility] Comment on above: Result Comment: The [place] Diabetes Association (ADA) provides guidance for cutoff [...] Standards of Medical Care in Diabetes 2016, [place] [employer] Association. Diabetes Care. 2016.39(Suppl 1). Performed By: #### C SEAMUS, CBCDIF ####[facility] [address] [place], [place] [phone] Potassium [Moles/Vol] 4.4 mmol/L Normal 3.7-5.1 [facility] Comment on above: Performed By: #### C SEAMUS, CBCDIF ####[facility] [address] [place], [place] [phone] Protein [Mass/Vol] 6.8 g/dL Normal 6.3-8.0 [facility] Comment on above: Performed By: #### C MP, CBCDIF ####[facility] [address] [place], [place] [phone] Sodium [Moles/Vol] 138 mmol/L Normal 136-144 [facility] Comment on above: Performed By: #### C MP, CBCDIF ####[facility] [address] [place], [place] [phone] Urea nitrogen [Mass/Vol] 20 mg/dL Normal 9-24 [facility] Comment on above: Performed By: #### C MP, CBCDIF ####[facility] [address] [place], [place] [phone] HISTORY PHYSICALon HISTORY PHYSICAL HNO ID: [id number] Author: Sterling Bhatia MD Service: ? Author Type: Resident Type: HANDP Filed: 08/09/2020 3:18 PM Note Text: HISTORY AND PHYSICAL EXAMINATION SERVICE DATE: 08/09/2020 SERVICE TIME: 1420 PRIMARY CARE PHYSICIAN: Cynthia Aguila CNP, STORES LABORER REASON FOR VISIT: Shad Rodriguez is a [...] Yes Medication Comments documented by Lisa Childers CONFERENCE SERVICES MANAGER on 01/11/2016 at 0856. Pt unsure of medication list. Pt did not bring pill bottles or medication list to appt 01/11/2016 CURRENT ALLERGIES: ALLERGIES Allergen Reactions - Penicillins Unknown - Ragweed Shortness of Breath REVIEW OF SYSTEMS: PAIN ASSESSMENT: General: No weight loss, malaise or fevers. Neuro: No history of TIA's, stroke, [employer] tumor, impaired sensorium, hemiplegia, paraplegia or quadraplegia. [...] Lungs: Normal breath sounds, no wheezes or aircraft tool maker (more content not included)... Normal [facility] PreOp/PreProc COVIDon 2020 SARS-CoV-2 (COVID-19) RNA KELLY+probe Ql (Unsp spec) UPPER RESPIRATORY TRACT SWAB Normal [facility] Comment on above: Performed By: #### P OCOVD ####[facility] [address] [place], [place] [address]VhcdjzbvuL[facility] [place], [place] [phone] SARS-CoV-2 (COVID-19) RNA KELLY+probe Ql (Unsp spec) Negative for COVID19 (SARS CoV2) by RT-PCR or equivalent method. Normal Negative for COVID19 (SARS CoV2) by RT-PCR or equivalent method. [facility] Comment on above: Result Comment: This test was developed and its performance characteristics determined by [facility]'s [facility] [place]. This test has been authorized by FDA under an Emergency Use Authorization (EUA). This test has been validated in accordance with the FDA's Guidance Document Policy for Diagnostics Testing in Laboratories Certified to Perform High Complexity Testing under CLIA prior to Emergency use Authorization for Coronavirus Disease 2019 during the Public Health Emergency issued on April 11, 2019. Test performed by [facility], [facility] [place], [address] [address]. Performed By: #### P OCOVD ####[address] [phone] Type and SCR (30D)on 021 ABO/RH(D) AB POSTIVE Normal [facility] Comment on above: Performed By: #### T SCR30 ####[address] [phone] Urinalysison 08-09-2020 Bilirubin, Urine Negative Normal Negative [facility] Comment on above: Performed By: #### U A ####[address] [phone] Clarity (U) Clear Normal Clear [facility] Comment on above: Performed By: #### U A ####[address] [phone] Color (U) Yellow Normal Yellow [facility] Comment on above: Performed By: #### U A ####[address] [phone] Comments SEE COMMENT Normal [facility] Comment on above: Result Comment: Micr oscopic Examination Performed Performed By: #### U A ####[address] [phone] Glucose Ql (U) Negative Normal Negative [facility] Comment on above: Performed By: #### U A ####[place] [address] [place] [phone] Hemoglobin/Blood,Ur 1+ Critically abnormal Negative [facility] Comment on above: Performed By: #### U A ####[place] [address] [place] [phone] Ketones Ql (U) Negative Normal Negative [facility] Comment on above: Performed By: #### U A ####[place] [address] [place] [phone] Leukest Negative Normal Negative [facility] Comment on above: Performed By: #### U A ####[place] [address] [place] [phone] Nitrite Ql (U) Negative Normal Negative [facility] Comment on above: Performed By: #### U A ####[place] [address] [place] [phone] pH (U) 6.0 [pH] Normal 5.0-8.0 [facility] Comment on above: Performed By: #### U A ####[place] [address] [place] [phone] Protein, Urine Negative Normal Negative [facility] Comment on above: Performed By: #### U A ####[place] [address] [place] [phone] RBC 0-3 Normal 0-3 [facility] Comment on above: Performed By: #### U A ####[place] [address], [place] [phone] Specific Exline, Ur 1.017 Normal 1.005-1.030 [facility] Comment on above: Performed By: #### U A ####[place] [address] [place] [phone] Urine Bao Comment SEE COMMENT Normal [facility] Comment on above: Result Comment: N/A Performed By: #### U A ####[facility] [place], [place] [phone] Urobilinogen Qn (U) {Ramona'U}/dL Critically abnormal Negative [facility] Comment on above: Performed By: #### U A ####[facility] [place], [place] [phone] WBC 0-5 Normal 0-5 [facility] Comment on above: Performed By: #### U A ####[facility] [place], [place] [phone] CNPNon 08-03-2020 CNPN Telephone (Herrera) SHAD RODRIGUEZ ([id number]) 1950 M Date Time Provider Department 08/03/20 [...] Fully Assessed Reason for Visit: Reminder Call [[id number]] Prescriptions as of 08/03/2020 Sig: AMLODIPINE 2.5 [...] Status:Closed by LEDY JOHNS RN on 08/03/20 [facility] 07-13-2020 CNPN Telephone (Studio KateHerrera) SHAD RODRIGUEZ ([id number]) 1950 M Date Time Provider Department 07/13/20 [...] Fully Assessed Reason for Visit: Reminder Call [[id number]] Prescriptions as of 07/13/2020 Sig: AMLODIPINE 2.5 [...] Status:Closed by LEDY JOHNS RN on 07/13/20 [facility] 06-28-2020 CNPN Telephone (CorindusN) SHAD RORDIGUEZ ([id number]) 1950 M Date Time Provider Department 06/28/20 [...] pre-op apt information, can also view via [employer], patient verbalized an understanding and agrees with [...] MD - Fully Assessed 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 Planned for [...] No Mesh Fixation for Open Retromuscular Repairs CANNERY TENDER ENGINEER: Sydney Hassan MD COORDINATOR/Research Nurse/Negative Cleaner: Tiara Funes MD ? [email or web address] Consenting was performed by the attending surgeon, in a [id number] manner, during preoperative evaluation at the General [...] [] 2. The patient is fluent in Salvadorean, has read the consent form and understood study procedures [x] [] 3. The patient is planned to undergo a ventral hernia r (more content not included)... Normal [facility] Progress Noteon 07-02-2019 Progress Note [facility] [place] [address] Progress Note Signed:[id number] Name: SHAD RODRIGUEZ MRUN: [id number] : 1950 Loc: 3S Age / Sex: 68/ M Adm Status: DIS Leonor Adm Date:06/03/19 Room/Bed: [facility] Date of Service 06/04/19 Subjective (ROS) Constitutional: [...] (Auto) 12.8 % (24.0-44.0) L 06/05/19 05:34 Navajo % (Auto) 7.5 % (1.7-9.3) 06/05/19 05:34 Eos % (Auto) 1.3 % (0.0-5.0) 06/05/19 05:34 Baso % (Auto) 0.3 % (0.0-1.0) 06/05/19 05:34 Neut # (Auto) 4.5 10 3/uL (1.5-6.7) 06/05/19 05:34 Lymph # (Auto) 0.7 10 3/uL (1.0-3.5) L 06/05/19 05:34 Navajo # (Auto) 0.4 10 3/uL (0.2-0.8) 06/05/19 [...] 0908 CC: Fercho TORRES, Danii Pickett Normal [facility] CBC WITH AUTO DIFFon 020 Basophils (Bld) [#/Vol] 0.0 10 3/uL Normal 0.0-0.2 [facility] Comment on above: Performed By: #### P T #### [facility] - [address] [address] Basophils/100 WBC (Bld) 0.3 % Normal 0.0-1.0 [facility] Comment on above: Performed By: #### P T #### [facility] - [address] [address] Eosinophils (Bld) [#/Vol] 0.1 10 3/uL Normal 0.0-0.7 [facility] Comment on above: Performed By: #### P T #### [facility] - [address] [address] Eosinophils/100 WBC (Bld) 1.3 % Normal 0.0-5.0 [facility] Comment on above: Performed By: #### P T #### [facility] - [address] [address] Erythrocyte distribution width (RBC) [Ratio] 14.4 % High 11.5-14.0 [facility] Comment on above: Performed By: #### P T #### [facility] - [address] [address] Hematocrit (Bld) [Volume fraction] 39.2 % Normal 38.7-49.8 [facility] Comment on above: Performed By: #### P T #### [facility] - [address] [address] Hemoglobin (Bld) [Mass/Vol] 13.2 g/dL Normal 12.9-16.6 [facility] Comment on above: Performed By: #### P T #### [facility] - [address] [address] Lymphocytes (Bld) [#/Vol] 0.7 10 3/uL Low 1.0-3.5 [facility] Comment on above: Performed By: #### P T #### [facility] - [address] [address] Lymphocytes/100 WBC (Bld) 12.8 % Low 24.0-44.0 [facility] Comment on above: Performed By: #### P T #### [facility] - [address] [address] MCH (RBC) [Entitic mass] 28.9 pg Normal 27.0-31.0 [facility] Comment on above: Performed By: #### P T #### [facility] - [address] [address] MCHC (RBC) [Mass/Vol] 33.8 g/dL Normal 32.0-36.0 [facility] Comment on above: Performed By: #### P T #### [facility] - [address] [address] MCV (RBC) [Entitic vol] 85.5 fL Normal 78.0-100.0 [facility] Comment on above: Performed By: #### P T #### [facility] - [address] [address] Monocytes (Bld) [#/Vol] 0.4 10 3/uL Normal 0.2-0.8 [facility] Comment on above: Performed By: #### P T #### [facility] - [address] [address] Monocytes/100 WBC (Bld) 7.5 % Normal 1.7-9.3 [facility] Comment on above: Performed By: #### P T #### [facility] [place], [place] [address] Neutrophils (Bld) [#/Vol] 4.5 10 3/uL Normal 1.5-6.7 [facility] Comment on above: Performed By: #### P T #### [facility] [address] [place] [address] Neutrophils/100 WBC (Bld) 78.1 % High 36.0-66.0 [facility] Comment on above: Performed By: #### P T #### [facility] [address] [place] [address] Platelet mean volume (Bld) [Entitic vol] 7.9 fL Normal 6.0-9.5 [facility] Comment on above: Performed By: #### P T #### [facility] [address] [place] [address] Platelets (Bld) [#/Vol] 180 10 3/uL Normal 150-450 [facility] Comment on above: Performed By: #### P T #### [facility] [address] [place] [address] RBC (Bld) [#/Vol] 4.58 x10 6/uL Normal 4.38-5.71 [facility] Comment on above: Performed By: #### P T #### [facility] [address] [place] [address] WBC (Bld) [#/Vol] 5.8 10 3/uL Normal 4.0-10.5 [facility] Comment on above: Performed By: #### P T #### [facility] Lab - [facility] [address] [place] [address] COMPREHENSIVE METABOLIC PANE Sukhi 06-05-2019 Albumin [Mass/Vol] 3.1 g/dL Low 3.9-5.0 [facility] Comment on above: Performed By: #### P T #### [facility] Lab - [facility] [address] [place] [address] Albumin/Globulin [Mass ratio] 1.2 {ratio} Normal 1.1-1.8 [facility] Comment on above: Performed By: #### P T #### [facility] - [facility] [address] [place] [address] ALP [Catalytic activity/Vol] 84 U/L Normal 43-122 [facility] Comment on above: Performed By: #### P T #### Main Lab - [address] [address] ALT/SGPT 48 U/L Normal 7-56 [facility] Comment on above: Performed By: #### P T #### Main Lab - [address] [address] Anion gap [Moles/Vol] 8 mmol/L Low 9-18 [facility] Comment on above: Performed By: #### P T #### [facility] - [address] [address] AST/SGOT 26 U/L Normal 14-50 [facility] Comment on above: Performed By: #### P T #### [facility] - [address] [address] Bilirubin [Mass/Vol] 0.5 mg/dL Normal 0.2-1.3 [facility] Comment on above: Performed By: #### P T #### [facility] - [address] [address] Calcium [Mass/Vol] 8.5 mg/dL Normal 8.4-10.2 [facility] Comment on above: Performed By: #### P T #### [facility] - [address] [address] Chloride [Moles/Vol] 106 mmol/L Normal 98-107 [facility] Comment on above: Performed By: #### P T #### Main Lab - [address] [address] CO2 [Moles/Vol] 27 mmol/L Normal 22-31 [facility] Comment on above: Performed By: #### P T #### Main Lab - [address] [address] Creatinine [Mass/Vol] 1.30 mg/dL Normal 0.80-1.30 [facility] Comment on above: Performed By: #### P T #### [facility] - [address] [address] ESTIMATED CREAT CLEARANCE 52.26 Normal [facility] Comment on above: Result Comment: COCK CROFT-GAULT FORMULA 1972 Performed By: #### P T #### [facility] - [address] [address] ESTIMATED GLOMERULAR FILT RATE 55.000 mL/min Normal [facility] Comment on above: Performed By: #### P T #### [facility] - [address] [address] Globulin (S) [Mass/Vol] 2.6 g/dL Normal [facility] Comment on above: Performed By: #### P T #### [address] [address] Glucose [Mass/Vol] 108 mg/dL High 70-99 [facility] Comment on above: Result Comment: The glucose range is based on recommendations from the [place] [employer] for fasting blood glucose range. Performed By: #### P T #### [facility] - [address] [address] Potassium [Moles/Vol] 3.7 mmol/L Normal 3.6-5.0 [facility] Comment on above: Performed By: #### P T #### [address] [address] Protein [Mass/Vol] 5.7 g/dL Low 6.3-8.2 [facility] Comment on above: Performed By: #### P T #### [address] [address] Sodium [Moles/Vol] 137 mmol/L Normal 137-145 [facility] Comment on above: Performed By: #### P T #### [address] [address] Urea nitrogen [Mass/Vol] 15 mg/dL Normal 7-21 [facility] Comment on above: Performed By: #### P T #### [address] [address] Urea nitrogen/Creatinine [Mass ratio] 11.5 Ratio Normal 5.0-42.0 [facility] Comment on above: Performed By: #### P T #### [facility] - [address] [address] Age - Reported 68 Years Normal [facility] Comment on above: Performed By: #### P T #### [facility] - [address] [address] PT WITH INRon 06-05-2019 INR Coag (PPP) [Relative time] 3.1 {INR} Normal [facility] Comment on above: Result Comment: ISAAK MMENDED RANGES FOR INR: Therapeutic range for standard therapy INR: 2.0-3.0 Therapeutic range for high dose therapy INR: 2.5-3.5 Performed By: #### P T #### [facility] - [address] [address] PT Coag (PPP) [Time] 32.2 s High 12.0-14.5 [facility] Comment on above: Performed By: #### P T #### [facility] - [place] [id number] URINE CULTUREon 06-05-2019 Bacteria identified Cx Nom (U) @06/03/19 1933: URINE CULT added. RFLXG = URINE CULT. @[place] [id number]. URINE CULTURE: NO GROWTH AT 48 HOURS Normal [facility] Comment on above: Performed By: #### P T #### [facility] - [address] [address] CBC WITH AUTO DIFFon 020 Basophils (Bld) [#/Vol] 0.0 10 3/uL Normal 0.0-0.2 [facility] Comment on above: Performed By: #### P T, CMP, CBC #### [facility] - [address] [address] Basophils/100 WBC (Bld) 0.2 % Normal 0.0-1.0 [facility] Comment on above: Performed By: #### P T, CMP, CBC #### [facility] - [address] [address] Eosinophils (Bld) [#/Vol] 0.0 10 3/uL Normal 0.0-0.7 [facility] Comment on above: Performed By: #### P T, CMP, CBC #### [facility] - [facility] [address] [place] [address] Eosinophils/100 WBC (Bld) 0.3 % Normal 0.0-5.0 [facility] Comment on above: Performed By: #### P T, CMP, CBC #### [facility] - [address] [address] Erythrocyte distribution width (RBC) [Ratio] 14.4 % High 11.5-14.0 [facility] Comment on above: Performed By: #### P T, CMP, CBC #### Main Lab - [address] [address] Hematocrit (Bld) [Volume fraction] 40.5 % Normal 38.7-49.8 [facility] Comment on above: Performed By: #### P T, CMP, CBC #### [facility] - [address] [address] Hemoglobin (Bld) [Mass/Vol] 13.9 g/dL Normal 12.9-16.6 [facility] Comment on above: Performed By: #### P T, CMP, CBC #### [facility] - [facility] [address] [place] [address] Lymphocytes (Bld) [#/Vol] 0.6 10 3/uL Low 1.0-3.5 [facility] Comment on above: Performed By: #### P T, CMP, CBC #### [facility] - [facility] [address] [place] [address] Lymphocytes/100 WBC (Bld) 8.3 % Low 24.0-44.0 [facility] Comment on above: Performed By: #### P T, CMP, CBC #### Main [facility] - [facility] [address] [place] [address] MCH (RBC) [Entitic mass] 29.2 pg Normal 27.0-31.0 [facility] Comment on above: Performed By: #### P T, CMP, CBC #### [facility] - [facility] [address] [place] [address] MCHC (RBC) [Mass/Vol] 34.2 g/dL Normal 32.0-36.0 [facility] Comment on above: Performed By: #### P T, CMP, CBC #### Main Lab - [facility] [address] [place], [place] [address] MCV (RBC) [Entitic vol] 85.2 fL Normal 78.0-100.0 [facility] Comment on above: Performed By: #### P T, CMP, CBC #### [facility] - [facility] [address] [place] [address] Monocytes (Bld) [#/Vol] 0.4 10 3/uL Normal 0.2-0.8 [facility] Comment on above: Performed By: #### P T, CMP, CBC #### [facility] - [facility] [address] [place] [address] Monocytes/100 WBC (Bld) 5.4 % Normal 1.7-9.3 [facility] Comment on above: Performed By: #### P T, CMP, CBC #### [facility] - [facility] [address] [place] [address] Neutrophils (Bld) [#/Vol] 5.8 10 3/uL Normal 1.5-6.7 [facility] Comment on above: Performed By: #### P T, CMP, CBC #### [facility] - [address] [address] Neutrophils/100 WBC (Bld) 85.8 % High 36.0-66.0 [facility] Comment on above: Performed By: #### P T, CMP, CBC #### [facility] - [facility] [address] [place] [address] Platelet mean volume (Bld) [Entitic vol] 8.1 fL Normal 6.0-9.5 [facility] Comment on above: Performed By: #### P T, CMP, CBC #### [facility] - [facility] [address] [place] [address] Platelets (Bld) [#/Vol] 190 10 3/uL Normal 150-450 [facility] Comment on above: Performed By: #### P T, CMP, CBC #### [facility] - [facility] [address] [place] [address] RBC (Bld) [#/Vol] 4.75 x10 6/uL Normal 4.38-5.71 [facility] Comment on above: Performed By: #### P T, CMP, CBC #### [facility] - [facility] [address] [place] [address] WBC (Bld) [#/Vol] 6.7 10 3/uL Normal 4.0-10.5 [facility] Comment on above: Performed By: #### P T, CMP, CBC #### [facility] - [facility] [address] [place] [address] COMPREHENSIVE METABOLIC PANE Sukhi 06-04-2019 Albumin [Mass/Vol] 3.4 g/dL Low 3.9-5.0 [facility] Comment on above: Performed By: #### P T, CMP, CBC #### [facility] - [facility] [address] [place] [address] Albumin/Globulin [Mass ratio] 1.2 {ratio} Normal 1.1-1.8 [facility] Comment on above: Performed By: #### P T, CMP, CBC #### [facility] - [facility] [address] [place] [address] ALP [Catalytic activity/Vol] 92 U/L Normal 43-122 [facility] Comment on above: Performed By: #### P T, CMP, CBC #### [facility] - [facility] [address] [place] [address] ALT/SGPT 62 U/L High 7-56 [facility] Comment on above: Performed By: #### P T, CMP, CBC #### [facility] - [facility] [address] [place] [address] Anion gap [Moles/Vol] 8 mmol/L Low 9-18 [facility] Comment on above: Performed By: #### P T, CMP, CBC #### [facility] - [facility] [address] [place] [address] AST/SGOT 36 U/L Normal 14-50 [facility] Comment on above: Result Comment: Spec imen Slightly Hemolyzed. Performed By: #### P T, CMP, CBC #### [facility] - [facility] [address] [place] [address] Bilirubin [Mass/Vol] 0.5 mg/dL Normal 0.2-1.3 [facility] Comment on above: Performed By: #### P T, CMP, CBC #### Main [facility] - [facility] [address] [place], [place] [address] Calcium [Mass/Vol] 8.9 mg/dL Normal 8.4-10.2 [facility] Comment on above: Performed By: #### P T, CMP, CBC #### [facility] - [facility] [address] [place] [address] Chloride [Moles/Vol] 109 mmol/L High 98-107 [facility] Comment on above: Result Comment: Inco nsistent with previous results. Performed By: #### P T, CMP, CBC #### [facility] - [facility] [address] [place] [address] CO2 [Moles/Vol] 27 mmol/L Normal 22-31 [facility] Comment on above: Performed By: #### P T, CMP, CBC #### [facility] - [facility] [address] [place] [address] Creatinine [Mass/Vol] 1.28 mg/dL Normal 0.80-1.30 [facility] Comment on above: Performed By: #### P T, CMP, CBC #### [facility] - [facility] [address] [place] [address] ESTIMATED CREAT CLEARANCE 53.08 [facility] Comment on above: Result Comment: COCK CROFT-GAULT FORMULA 1972 Performed By: #### P T, CMP, CBC #### [facility] - [facility] [place], [place] [address] ESTIMATED GLOMERULAR FILT RATE 56.000 mL/min [facility] Comment on above: Performed By: #### P T, CMP, CBC #### [facility] - [facility] [place], [place] [address] Globulin (S) [Mass/Vol] 2.9 g/dL [facility] Comment on above: Performed By: #### P T, CMP, CBC #### [facility] - [facility] [address] [place], [place] [address] Glucose [Mass/Vol] 165 mg/dL High 70-99 [facility] Comment on above: Result Comment: The glucose range is based on recommendations from the [place] [employer] for fasting blood glucose range. Performed By: #### P T, CMP, CBC #### [facility] - [facility] [address] [place], [place] [address] Potassium [Moles/Vol] 3.7 mmol/L Normal 3.6-5.0 [facility] Comment on above: Result Comment: Spec imen Slightly Hemolyzed. Performed By: #### P T, CMP, CBC #### [facility] - [facility] [address] [place], [place] [address] Protein [Mass/Vol] 6.3 g/dL Normal 6.3-8.2 [facility] Comment on above: Performed By: #### P T, CMP, CBC #### [facility] - [facility] [address] [place], [place] [address] Sodium [Moles/Vol] 140 mmol/L Normal 137-145 [facility] Comment on above: Performed By: #### P T, CMP, CBC #### [facility] - [facility] [address] [place], [place] [address] Urea nitrogen [Mass/Vol] 17 mg/dL Normal 7-21 [facility] Comment on above: Performed By: #### P T, CMP, CBC #### [facility] - [facility] [address] [place], [place] [address] Urea nitrogen/Creatinine [Mass ratio] 13.3 Ratio Normal 5.0-42.0 [facility] Comment on above: Performed By: #### P T, CMP, CBC #### [facility] - [facility] [address] [place], [place] [address] Age - Reported [address] [facility] Comment on above: Performed By: #### P T, CMP, CBC #### [facility] - [facility] [address] [place], [place] [address] CREATINE KINASE MBon 020 CK.MB [Mass/Vol] 4.0 ng/mL High 0.0-3.7 [facility] Comment on above: Performed By: #### C KMB 1 #### Main [facility] - [facility] [address] [place], [place] [address] CK.MB [Mass/Vol] 3.8 ng/mL High 0.0-3.7 [facility] Comment on above: Performed By: #### C KMB 1 #### [facility] - [facility] [address] [place], [place] [address] CK.MB [Mass/Vol] 4.4 ng/mL High 0.0-3.7 [facility] Comment on above: Performed By: #### P T #### [facility] - [facility] [address] [place] [address] ABDOMEN PELVIS W/Oon 05-13 CT ABDOMEN PELVIS W/O [facility] [address] [place] [address] Diagnostic Imaging Report : [id number] Signed Name: SHAD RODRIGUEZ MRUN: [id number] : 1950 Loc: 3S Age / Sex: 68 / M ADM Status: ADM Leonor ADM Date: 06/03/19 Room/Bed: [facility] Ordering Physician: Vick ENCISO Usrees Procedure: CT ABDOMEN PELVIS W/O Order Number(s): [id number] Ordered Date: 06/04/19 Ordered Time: 0006 EXAMINATION: [...] Signed Date/Time: 06/04/19225 Transcribed Date/Time: 06/04/19221 Normal [facility] DRUG SCREEN,URINEon 06-04-19 AMPHETAMINE SCREEN,URINE Negative Normal NEGATIVE [facility] Comment on above: Order Comment: @ COL L DATE was changed from 06/03/19 to 06/04/19 @ by [id number]. Old specimen was [id number]. Result Comment: Nega tive cut-off concentration <1000 ng/mL Performed By: #### U DS #### Main [facility] - [facility] [address] [place] [address] BARBITURATE SCREEN, URINE Negative Normal NEGATIVE [facility] Comment on above: Order Comment: @ COL L DATE was changed from 06/03/19 to 06/04/19 @ by [id number]. Old specimen was [id number]. Result Comment: Nega tive cut-off concentration <200 ng/mL Performed By: #### U DS #### [facility] - [facility] [address] [place] [address] BENZODIAZEPINES SCREEN,URINE Negative Normal NEGATIVE [facility] Comment on above: Order Comment: @ COL L DATE was changed from 06/03/19 to 06/04/19 @ by [id number]. Old specimen was [id number]. Result Comment: Nega tive cut-off concentration <200 ng/mL Performed By: #### U DS #### Main [facility] - [facility] [place] [id number] BUPRENORPHINE SCREEN,URINE Negative Normal NEGATIVE [facility] Comment on above: Order Comment: @ COL L DATE was changed from 06/03/19 to 06/04/19 @ by [id number]. Old specimen was [id number]. Result Comment: Nega tive cut-off concentration <10 ng/mL Performed By: #### U DS #### Main [facility] - [facility] [place] [id number] CANNABINOID SCREEN,URINE Negative Normal NEGATIVE [facility] Comment on above: Order Comment: @ COL L DATE was changed from 06/03/19 to 06/04/19 @ by [id number]. Old specimen was [id number]. Result Comment: Nega tive cut-off concentration <50 ng/mL Performed By: #### U DS #### Main Lab - [place] 8709073 COCAINE SCREEN,URINE Negative Normal NEGATIVE [facility] Comment on above: Order Comment: @ COL L DATE was changed from 06/03/19 to 06/04/19 @ by [id number]. Old specimen was [id number]. Result Comment: Nega tive cut-off concentration <300 ng/mL Performed By: #### U DS #### Main [facility] - [place] 8[address]9073 METHADONE SCREEN,URINE Negative Normal NEGATIVE [facility] Comment on above: Order Comment: @ COL L DATE was changed from 06/03/19 to 06/04/19 @ by [id number]. Old specimen was [id number]. Result Comment: Nega tive cut-off concentration <300 ng/mL Performed By: #### U DS #### [facility] - [place] 8709073 OPIATE SCREEN,URINE Negative Normal NEGATIVE [facility] Comment on above: Order Comment: @ COL L DATE was changed from 06/03/19 to 06/04/19 @ by [id number]. Old specimen was [id number]. Result Comment: Nega tive cut-off concentration <300 ng/mL Performed By: #### U DS #### Main [facility] - [place] 8709073 OXYCODONE SCREEN,URINE Negative Normal NEGATIVE [facility] Comment on above: Order Comment: @ COL L DATE was changed from 06/03/19 to 06/04/19 @ by [id number]. Old specimen was [id number]. Result Comment: Nega tive cut-off concentration <300 ng/mL Performed By: #### U DS #### [facility] - [facility] [address] [place], [place] [address] PHENCYCLIDINE SCREEN,URINE Negative Normal NEGATIVE [facility] Comment on above: Order Comment: @ COL L DATE was changed from 06/03/19 to 06/04/19 @ by [id number]. Old specimen was [id number]. Result Comment: Nega tive cut-off concentration <25 ng/mL Performed By: #### U DS #### Main [facility] - [facility] [place], [place] [address] NITRITE,URINE Negative Normal NEGATIVE [facility] Comment on above: Order Comment: @ COL L DATE was changed from 06/03/19 to 06/04/19 @ by [id number]. Old specimen was [id number]. Performed By: #### U DS #### Main [facility] - [facility] [place], [place] [address] pH (U) 6.0 [pH] Normal 5.0-8.0 [facility] Comment on above: Order Comment: @ COL L DATE was changed from 06/03/19 to 06/04/19 @ by [id number]. Old specimen was [id number]. Performed By: #### U DS #### [facility] - [facility] [address] [place] [address] SPECIFIC GRAVITY,URINE 1.027 SP.GR. Normal <1.029 [facility] Comment on above: Order Comment: @ COL L DATE was changed from 06/03/19 to 06/04/19 @ by [id number]. Old specimen was [id number]. Performed By: #### U DS #### [facility] - [facility] [address] [place] [address] ECHOCARDIOGRAM COMPLETEon ECHOCARDIOGRAM COMPLETE [facility] [address] [place] [address] Cardiovascular Imaging Report : [id number] Signed Name: SHAD RODRIGUEZ MRUN: [id number] : 1950 Loc: 3S Age / Sex: 68 / M ADM Status: ADM Leonor ADM Date: 06/03/19 Room/Bed: [facility] Ordering Physician: Vick ENCISO, [facility] Procedure: ECHOCARDIOGRAM COMPLETE Order Number(s): [id number] Ordered Date: 06/04/19 Ordered Time: 0700 SEOSYNCVPROD [id number] Transthoracic Echo Report Ht (in): 67 Wt [...] 4.4 cm RV Mid 3.7 cm RV [place] to Base 8.6 cm Ascending Aorta Diameter 3.2 cm M-MODE Aortic Root Diameter MM 3.6 cm LA Systolic Diameter MM 4.2 cm LA Ao Ratio MM 1.2 DOPPLER AV Peak Velocity 1.3 m/s AV Peak Gradient 6.6 mmHg LVOT Peak Velocity 0.8 m/s LVOT Peak Gradient 2.5 mmHg LVOT Mean Gradient 1.3 mmHg LVOT Velocity Time Integral 16.7 cm MV Deceleration Angelina 1.3 m/s? MV Pressure Half Time 83.2 [...] 06/04/19 1132 Transcribed Date/Time: 06/04/19 0947 Normal [facility] History & Physicalon 020 History & Physical [address] [place] [address] History Physical Signed with Addenda:[id number] Name: SHAD RODRIGUEZ MRUN: [id number] : 1950 Loc: 3S Age / Sex: 68/ M Adm Status: ADM Leonor Adm Date:06/03/19 Room/Bed: 317-01 ADDENDUM---- ------ Bilateral lower extremities have chronic venous stasis changes and trace edema, small open wound on right leg. 06/04/19 0048 CC: Vick ENCISO, [facility] Date of Service 06/03/19 History of Present Illness Information source:: Patient Chief Complaint: I passed out This is a pleasant 68-year-old male with a history of diabetes mellitus and colon cancer was brought into the emergency room by the insert cutter for further evaluation and management of a syncopal event. Patient was in his usual state of health until this afternoon. 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 He was taking the exit to get to the Highway around 4:30 PM after exchanging the trailer with his colleague. He felt like his truck is spinning around. The next thing he knew was insert cutter were knocking on the door. He was found slumped over on the steering wheel. He did not experience any chest pain, palpitations, focal weakness, vision changes or diaphoresis prior to the episode. No prior similar symptoms. No reports of seizure-like activity. No reports of bladder or bowel incontinence. No history of ID, CVA or seizures. He had his breakfast [...] (Auto) 12.0 % (24.0-44.0) L 06/03/19 17:36 [place] % (Auto) 6.0 % (1.7-9.3) 06/03/19 17:36 Eos % (Auto) 0.6 % (0.0-5.0) 06/03/19 17:36 Baso % (Auto) 0.3 % (0.0-1.0) 06/03/19 17:36 Neut # (Auto) 5.7 10 3/uL (1.5-6.7) 06/03/19 17:36 Lymph # (Auto) 0.8 10 3/uL (1.0-3.5) L 06/03/19 17:36 [place] # (Auto) 0.4 10 3/uL (0.2-0.8) 06/03/19 [...] actually had an appointment with surgeon at [facility] for rectal hernia repair about one [...] Chronic 06/04/197 CC: Vick ENCISO, Usrees Normal [facility] LACTATE FOLLOW UPon 06-04-19 LACTATE FOLLOW UP 1.0 mmol/L Normal 0.7-2.4 [facility] Comment on above: Order Comment: @05/13: LACTATE 2 added. RFLXG = LACTICRFX. Performed By: #### L ACTATE 2 #### [facility] - [facility] [address] [place] [address] PT WITH INRon 06-04-2019 INR Coag (PPP) [Relative time] 3.0 {INR} Normal [facility] Comment on above: Order Comment: @ Pre viously cancelled by [id number] on 06/04/19 at 0924. @ Uncancelled by [id number] on 06/04/19 at 0931. @ Specimen Rejected Previously Y. @ Previous Rejection Reason DUPLICATE - Duplicate orders. Result Comment: ISAAK MMENDED RANGES FOR INR: Therapeutic range for standard therapy INR: 2.0-3.0 Therapeutic range for high dose therapy INR: 2.5-3.5 Performed By: #### P T #### [facility] - [facility] [address] [place], [place] [address] PT Coag (PPP) [Time] 31.2 s High 12.0-14.5 [facility] Comment on above: Order Comment: @ Pre viously cancelled by [id number] on 06/04/19 at 0924. @ Uncancelled by [id number] on 06/04/19 at 0931. @ Specimen Rejected Previously Y. @ Previous Rejection Reason DUPLICATE - Duplicate orders. Performed By: #### P T #### [facility] - [facility] [address] [place] [address] INR Coag (PPP) [Relative time] 3.1 {INR} Normal [facility] Comment on above: Result Comment: ISAAK MMENDED RANGES FOR INR: Therapeutic range for standard therapy INR: 2.0-3.0 Therapeutic range for high dose therapy INR: 2.5-3.5 Performed By: #### P T, CMP, CBC #### [facility] - [facility] [address] [place], [place] [address] PT Coag (PPP) [Time] 32.1 s High 12.0-14.5 [facility] Comment on above: Performed By: #### P T, CMP, CBC #### Main [facility] - [facility] [address] [place], [place] [address] TROPONIN Ion 06-04-2019 Troponin I.cardiac [Mass/Vol] 0.06 ng/mL High 0.0-0.03 [facility] Comment on above: Result Comment: Refe rence Interval < or = 0.03 ng/mL Clinical Correlation Needed 0.03 - 0.11 ng/mL AMI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 [facility] Start: 06-23-2021 End: 06-23-2021 Patient encounter procedure Dougie Harmon [facility] Start: 06-14-2021 End: 06-14-2021 Patient encounter procedure Dougie Wilsonevettediane [facility] Start: 02-14-2021 End: 02-26-2022 Recurring Aggie Lynn [facility] Start: 01-20-2018 Patient encounter procedure DOMINGO COLLINS [facility] Procedures Date Procedure Procedure Detail Performing Clinician Start: 01-23-2023 Follow-up visit ADRIANA KIRKLAND Start: 01-08-2023 Follow-up visit ADRIANA KIRKLAND Start: 12-26-2022 Follow-up visit ADRIANA KIRKLAND Start: 10-05-2021 Colonoscopy Thais HINOJOSA Start: 08-09-2020 Antibody screen Comment on above: Performed By: #### [id number] ####[facility] [place], [place] [phone] Start: 03-02-2017 Colonoscopy Yusra Denis colostomy reversal Dougie rousseau Esophagogastroduoden oscopy gastric outlet reduction Yusra Denis Immunizations Immunization Date Immunization Notes Care Provider [facility] 01-15-2022 influenza virus vaccine, unspecified formulation Yusra Denis [facility] 01-15-2022 zoster vaccine recombinant Yusra Cira [facility] 01-11-2021 influenza, unspecifi ed formulation Yusra Denis [facility] 07-22-2020 SARS-CoV-2 (COVID-19 ) mRNA BNT-162b2 vax Yusramanuel HenryCira [facility] Comment on above: Result Comment: 2021: [id number] 06-30-2020 SARS-CoV-2 (COVID-19 ) mRNA BNT-162b2 vax Yusramanuel HenryCira [facility] Comment on above: Result Comment: 2021: TPV606-27-2020 tetanus and diphther ia toxoids, adsorbed, preservative free, for adult use (2 Lf of tetanus toxoid and 2 Lf of diphtheria toxoid) Yusra Denis [facility] 11-14-2019 influenza virus vaccine, unspecified formulation Yusra Denis [facility] 10-31-2018 influenza virus vaccine, unspecified formulation Yusra Denis [facility] 10-31-2018 pneumococcal polysaccharide vaccine, 23 valent Yusra Denis [facility] 10-22-2017 influenza virus vaccine, unspecified formulation Yusra Denis [facility] 10-22-2017 pneumococcal conjuga te vaccine, 13 valent Yusramanuel Denis [facility] 12-07-2016 influenza, unspecifi ed formulation Yusramanuel Denis [facility] NEGATED: Highlighted row has not occurred!11-16-2021 influenza virus vaccine, unspecified formulation Yusra Denis [facility] Payers Date Payer Category Payer Medicare [id number] 1957 Self-pay 1957 Unknown [id number] 1950 Unknown [id number] 2.16.84 [id number] 1950 Unknown [id number] 2.16.84 [id number] 1950 Unknown [id number] 2.16.8 [id number] 1950 Unknown [id number] 2.16.8 [id number] 1950 Unknown [id number] 2.16.8 [id number] 1950 Unknown [id number] 2.16.8 [id number] 1950 Unknown [id number] 2.16.8 [id number] 1950 Unknown [id number] 2.16.8 [id number] 1950 Unknown [id number] 2.16.8 [id number] 1950 Unknown [id number] 2.16.8 [id number] Social History Date Type Detail Facility Tobacco [facility] Comment on above: denies current use Sex Assigned At Male [facility] Start: 07-19-2021 End: 06-27-2022 Tobacco smoking status Never smoked tobacco (finding) [facility] Comment on above: denies current use Tobacco smoking status Never [facility] Functional Status Date Assessment Result Facility 05-17-2022 Functional Status N/A [facility] 11-16-2021 Functional Status N/A [facility] 10-05-2021 Functional Status N/A [facility] Clinical Notes 06-27-2020 to 01-23-2023 Note Date & Type Note Facility 01-23-2023 Note [facility] 01-23-2023 Note Review of Systems All other systems reviewed and are negative. PT JUST GETTING OVER COVID. FEELS GOOD, HE IS HOPING TO GO SOUTH SOON, BP ON TH LOWER SIDE TODAY, DOES NOT FEEL DIZZY [facility] 01-08-2023 Note [facility] 01-08-2023 Note [facility] 12-26-2022 Note [facility] 12-12-2022 Note [facility] 12-12-2022 Note [facility] 12-05-2022 Note [facility] 12-05-2022 Note [facility] 12-05-2022 Note [facility] 12-05-2022 Note [facility] 12-05-2022 Note [facility] 12-05-2022 Note [facility] 12-05-2022 Note [facility] 12-04-2022 Note [facility] 12-04-2022 Note [facility] 12-04-2022 Note Addendum created 1143 by Robin Pérez Intraprocedure Staff edited (Perfusion) [facility] 12-04-2022 Note [facility] 12-03-2022 Note [facility] 12-03-2022 Note [facility] 12-03-2022 Note [facility] 12-03-2022 Note [facility] 12-03-2022 Note [facility] 12-03-2022 Note [facility] 12-02-2022 Note [facility] 12-02-2022 Note This report has been cancelled. [facility] 12-02-2022 Note [facility] 12-01-2022 Note [facility] 12-01-2022 Note [facility] 12-01-2022 Note Chest tube placed at bedside per ICU MD. Patient signed consent and placed in chart. Patient tolerated procedure well. Patient Vitals are as charted. CXR ordered. Safety Maintained. [facility] 12-01-2022 Note [facility] 11-30-2022 Note [facility] 11-30-2022 Note [facility] 11-30-2022 Note [facility] 11-29-2022 Note [facility] 11-29-2022 Note [facility] 11-29-2022 Note [facility] 11-28-2022 Note [facility] 11-28-2022 Note [facility] 11-27-2022 Note [facility] 11-27-2022 Note [facility] 11-27-2022 Note [facility] 11-27-2022 Note [facility] 11-26-2022 Note [facility] 11-26-2022 Note [facility] 11-26-2022 Note [facility] 11-26-2022 Note [facility] 08-21-2022 Evaluation + Plan note Extrac lo [...] stroke: no 4. 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 Follow these instructions at home: Take seoj-kco-sausmec and prescription medicines only as told by [...] 08/27/2017 Document Revised: 01/10/2018 Document Reviewed: 10/15/2017 [place] Patient Education 2020 alike. Follow Up Care 11/16/2021 08:43:43 With:Yusra Denis CNP Address: When:1 month [facility] 10-06-2022 Hospital Discharge [...] 10/24/2004 Document Revised: 05/15/2018 Document Reviewed: 05/15/2018 [place] Patient Education 2020 [employer] Follow Up Care 10/10/2021 11:02:12 With:Yusra Denis CNP Address: When:6 months [facility] 08-25-2022 Evaluation + Plan noteExtracted from: Title:CARMEN POSTOP Author:Dangelo Morel DO Date: 10/05/21 Plan Transfer/ Discharge: Patient can be discharged from PACU when criteria met. Condition good. Extracted from: Title:CARMEN PREOP Author:Dangelo Morel DO Date: Plan [place] [employer] Anesthesiologists (ASA) physical status classification: [...] PT 02/06/22 * PT 03/06/22 [facility]08-25-2022 Hospital Discharge instructions Patient Education 10/05/2021 09:56:38 Colonoscopy, Care After Surgery Micaela (CONSTANCE) Colonoscopy Care After Surgery Please read the instructions outlined below and refer to this sheet in the next few weeks. These discharge instructions provide you with general information on caring for yourself [place] Your doctor may also give you specific [...] With:Thais HINOJOSA Address: [address] [place] [address] Business (1) When: Unknown Comments:OFFICE WILL CALL DATE AND TIME OF FOLLOW-UP APPT. [facility]06-08-2022 Hospital Discharge instructions Patient Education [...] Follow these instructions at home: Medicines Take yowd-wey-lvinzqm and prescription medicines only as told by your health care provider. If you were prescribed an antibiotic medicine, take it as told by your health care provider. Do notstop taking the antibiotic even if you start to feel better. Eating and drinking Follow any diet changes as told by your health care provider. Work with a diet and clinical nutritionist (dietitian) to create an eating plan that [...] 01/25/2001 Document Revised: 06/24/2019 Document Reviewed: 06/24/2019 [place] Patient Education 2019 [employer] Follow Up Care 07/11/2021 11:18:24 With:Yusra Denis CNP Address: When:1 month [facility] 05-16-2022 Hospital Discharge instructions Follow Up Care 06/26/2021 10:32:10 With:Dougie Harmon Address: [facility] [place] [address] [phone] Fax Business (1) When: Unknown Comments:cbc, cmp, cea in 6mofollow-up in 6mo [facility]03-22-2022 Evaluation + Plan noteExtracted from: [facility] Author:Aggie Hollingsworth Date :05/02/21 [...] stroke: no 4. Serious co-morbid conditions (recent ID, anemia with Hct <30%, CRI with SCr > 1.5, DM): yes hx of cancer Score = 2//4 Risk (low = 0, mod = 1-2, high = 3-4) Future Appointments Appointment Date:02/27/2022 07:30:00 AM Scheduled Provider: [facility] Appointment Type:Anticoagulation Remote 15 (FT) Appointment Date:05/17/2022 08:00:00 AM Scheduled Provider:Yusra Denis CNP Location:[facility] Appointment Type:BADH Follow Up Appointment [...] PT 02/06/22 * PT 03/06/22 [facility]07-26-2021 NoteHNO ID: [id number] Author: Cydney Koch APRN.ISIDRA Service: ? Author Type: Nurse Practitioner Type: Progress Notes Filed: 09/05/2020 11:19 AM Note Text: [facility] Clinic [...] needed. Randomized control trial: RINSE/FIXATION Cydney Koch APRN.STORES LABORER September 04, 2020 1113AM [facility] General Surgery [place] for Abdominal Core [facility]07-09-2021 NoteHNO ID: [id number] Author: Moris Shelton MD Service: General Surgery [...] surg schedule 2-3 weeks. Moris Shelton MD [facility] [phone] For calls on nights and weekends, please page the gen surg pager: [phone] 7:27 AM, 08/19/2020 [facility]07-08-2021 NoteHNO ID: [id number] Author: Amanda Aldana MD Service: General Surgery [...] schedule 2-3 weeks. MD Matthew [facility] [phone] For calls on nights and weekends, please page the gen surg pager: [phone] 1:08 PM, 08/18/2020 [facility]07-07-2021 NoteHNO ID: [id number] Author: Moris Shelton MD Service: General Surgery [...] 08/16/20699 - 08/17/2065808/17/20699 - 08/18/20 0659 Shift 7671-4587 4531-4812 7599-5091 24 Hour Total 0099-9606 7908-5141 0749-7014 24 Hour Total INTAKE PO 300 250 550 480 480 PO 300 250 550 480 480 Supplements (mL) 0 0 IV 75 75 Volume (mL) (lactated ringers iv infusion) 75 75 Shift Total 375 250 625 480 480 OUTPUT Urine 800 623 056 6529 351 351 Void (ml) 800 775 000 2153 351 351 Urine Not Saved. 1 x [...] 0 0 0 0 Shift Total 865 007 814 4660 411 411 Weight (kg) 93.4 93.4 93.4 [...] 1102 -- 08/12/20 1515 pneumatic compression stockings ([place] 08/12/20 1515 activity - mobilize patient ([place]) VTE Prophylaxis: VTE prophylaxis appropriate Plan of care discussed with: Provider, RN, Patient SIGNATURE: Moris Shelton MD PATIENT NAME: Shad Rodriguez DATE: August 17, 2020 TIME: 2:11 [facility]07-06-2021 NoteHNO ID: [id number] Author: Amanda Aldana MD Service: General Surgery [...] IS and pulmonary toilet Amanda Aldana MD [facility] [phone] For calls on nights and weekends, please page the gen surg pager: [phone] 5:44 AM, 08/16/2020 Assessment AND Plan Active Hospital Problems as of 08/16/2020 Noted - Resolved [facility] Ventral hernia 08/12/2020 - Present Yes [...] 0856 -- 08/12/20 1515 pneumatic compression stockings ([place]) 08/12/20 1515 activity - mobilize patient ([place] VTE Prophylaxis: VTE prophylaxis appropriate Plan of care discussed with: Provider, RN, Patient and Care Management SIGNATURE: Amanda Aldana MD PATIENT NAME: Shad Rodriguez DATE: August 16, 2020 TIME: 7:52 [facility]07-05-2021 NoteHNO ID: [id number] Author: Parish Gooden MD Service: General Surgery [...] CLD pending ROBF mucinex and duonebs Dilaudid 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 Ancef for 24 hours Lovenox Monitor JIM output PRN antiemetics Encourage OOB and ambulation Encourage IS and pulmonary toilet Parish Gooden MD For calls on nights and weekends, please page the gen surg pager: [phone] 5:47 AM, 08/15/2020 [facility]07-04-2021 NoteHNO ID: [id number] Author: Parish Gooden MD Service: General Surgery [...] repair Sips and chips pending ROBF Dilaudid 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 Mccabe catheter d/zackery Ancef for 24 hours Lovenox Monitor JIM output PRN antiemetics Encourage OOB and ambulation Encourage IS and pulmonary toilet Parish Gooden MD For calls on nights and weekends, please page the gen surg pager: [phone] 1:38 PM, 08/14/2020 [facility]07-03-2021 NoteHNO ID: [id number] Author: Parish Gooden MD Service: General Surgery [...] ventral hernia repair Clears pending ROBF Dilaudid 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 Mccabe to be removed POD 2 Ancef for 24 hours Heparin > Lovenox Monitor JIM output PRN antiemetics Encourage OOB and ambulation Encourage IS and pulmonary toilet Parish Gooden MD For calls on nights and weekends, please page the gen surg pager: [phone] 8:39 AM, 08/13/2020 [facility]06-29-2021 NoteHNO ID: [id number] Author: Ledy Johns RN Service: ? Author [...] By: Ledy Johns RN In Department: [facility] NoteHNO ID: [id number] Author: Felicia Amaya MD Service: ? Author [...] No Mesh Fixation for Open Retromuscular Repairs CANNERY TENDER ENGINEER: Sydney Hassan MD COORDINATOR/Research Nurse/Negative Cleaner: Tiara Funes MD ? [email or web address] Consenting was performed by the attending surgeon, in a vokg-dd-vdwb manner, during preoperative evaluation at the General [...] [] 2. The patient is fluent in Salvadorean, has read the consent form and understood [...] 2. The patient is not fluent in Salvadorean or cannot read the consent form and/or [...] Irrigation during Ventral Hernia Repair (RINSE Trial) CANNERY TENDER ENGINEER: Sydney Hassan MD COORDINATOR/Research Nurse/Negative Cleaner: Tiara Funes MD ? [email or web address] Consenting was performed by the attending surgeon, in a dvun-uo-cpea manner, during preoperative evaluation at the General [...] [] 2. The patient is fluent in Salvadorean, has read the consent form and understood study procedures [x] [] (more content not included)...[facility]05-17-2021 NoteHNO ID: [id number] Author: Ronn Givens MD Service: ? 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 Planned for [...] washout trials Ronn Givens MD, PhD Resident, PGY-[facility]COhio[facility] Hospitalaluation + Plan note Future Appointments Appointment [...] PT 02/06/22 * [facility] [...] PT 02/06/22 * PT 03/06/22 [facility] Future Appointments Appointment Date:08/08/2021 08:30:00 AM Scheduled Provider: [facility] Appointment Type:Anticoagulation Follow Up 15 (FT) Appointment Date:08/28/2021 12:50:00 PM Scheduled Provider: Location:[facility] Appointment Type:Surgery FT Appointment Date:12/28/2021 01:00:00 PM Scheduled Provider:Dougie Harmon DO [facility] App[facility] Type:ONC Office Visit 15 (FT) Future [...] 01/09/22 * PT 02/06/22 * PT 03/06/22 [facility] Evaluation + Plan note Future Appointments Appointment Date:11/24/2021 09:30:00 AM Scheduled Provider: [facility] Appointment Type:Anticoagulation Follow Up 15 (FT) Appointment Date:12/28/2021 01:00:00 PM Scheduled Provider:Dougie Harmon DO Location:.[facility]COLOGY Appointment Type:ONC Office Visit 15 (FT) Appointment Date:05/17/2022 08:00:00 AM Scheduled Provider:Yusra Denis CNP Location:[facility] Appointment Type:BADH Follow Up Future [...] 01/09/22 * PT 02/06/22 * PT 03/06/22 [facility] Evaluation + Plan note Future Appointments Appointment Date:12/28/2021 01:00:00 PM Scheduled Provider:Dougie Harmon DO Location:.ONCOLOGY Appointment Type:ONC Office Visit 15 (FT) Appointment Date:01/09/2022 09:00:00 AM Scheduled Provider: [facility] Appointment Type:Anticoagulation Follow Up 15 (FT) Appointment Date:05/17/2022 08:00:00 AM Scheduled Provider:Yusra Denis CNP Location:[facility] Appointment Type:BAD Follow Up Future Scheduled Tests Laboratory* PT 03/07/21 * PT 04/04/21 * PT 05/02/21 * PT 05/30/21 * PT 06/27/21 * PT 07/25/21 * PT 08/22/21 * PT 09/19/21 * PT 10/17/21 * PT 11/14/21 * PT 12/12/21 * PT 01/09/22 * PT 02/06/22 * PT 03/06/22 [facility] App[facility]ments Appointment Date:01/09/2022 09:00:00 AM Scheduled Provider: Location[facility] Appointment Type:Anticoagulation Follow Up 15 (FT) Appointment Date:05/17/2022 08:00:00 AM Scheduled Provider:Yusra Denis CNP Location:[facility] Appointment Type:BADH Follow Up Appointment Date:06/27/2022 01:30:00 PM Scheduled Provider:Dougie Harmon DO [facility] Appointment Type:ONC Office Visit 15 (FT) Future Scheduled Tests Laboratory* PT 03/07/21 * PT 04/04/21 * PT 05/02/21 * PT 05/30/21 * PT 06/27/21 * PT 07/25/21 * PT 08/22/21 * PT 09/19/21 * PT 10/17/21 * PT 11/14/21 * PT 12/12/21 * PT 01/09/22 * PT 02/06/22 * PT 03/06/22 [facility] Future Appointments Appointment Date:06/01/2022 09:30:00 AM Scheduled Provider: [facility] Appointment Type:Anticoagulation Follow Up 15 (FT) Appointment Date:06/15/2022 08:00:00 AM Scheduled Provider:Yusra Denis CNP Location:[facility] Appointment Type:BAD Follow Up Appointment Date:06/27/2022 02:00:00 PM Scheduled Provider:Dougie Harmon DO [facility] Appointment Type:ONC Office Visit 15 (FT) Future [...] PT 03/06/22 * Vitamin B12 Level 05/17/22 [facility] Evaluation + Plan note Future Appointments Appointment Date:06/27/2022 08:20:00 AM Scheduled Provider:Yusra Denis CNP Location:[facility] Appointment Type:BADH Follow Up Appointment Date:06/27/2022 02:00:00 PM Scheduled Provider:Dougie Harmon DO [facility] Appointment Type:ONC Office Visit 15 (FT) Appointment Date:07/10/2022 09:30:00 AM Scheduled Provider: [facility] Appointment Type:Anticoagulation Follow Up 15 (FT) Future [...] PT 03/06/22 * Vitamin B12 Level 05/17/22 [facility] Hospital course Narrative No data available for this section [facility] No data available for this section [facility] No data available for this section [facility] Summary Purpose Family History No [...] Directives Records Found Hospital Course Note [address] [place] [address] Discharge Summary Signed:[id number] Name: CEASARGULSHANSHAD MRUN: [id number] : 1950 Loc: 3S Age / Sex: 68/ M Adm Status: ADM Leonor Adm Date:06/03/19 Room/Bed: [facility]- Date of Service - Date of Service Date: 06/05/19 - Time Spent on Discharge Minutes spent on discharge:: 45 - Hospital Summary Hospital Summary:: This is a pleasant 68-year-old male with a history of diabetes mellitus and colon cancer was brought into the emergency room by the insert cutter for further evaluation and management of a syncopal event. Patient was in his usual state of health until this afternoon. 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 He was taking the exit to get to the Highway around 4:30 PM after exchanging the trailer with his colleague. He felt like his truck is spinning around. The next thing he knew was insert cutter were knocking on the door. He was [...] section and content) DATE CREATED AUTHOR 01/23/2018 [facility] DATE CREATED AUTHOR AUTHOR'S ORGANIZ ATION 04/12/2020 [facility] DATE CREATED AUTHOR AUTHOR'S ORGANIZ ATION 03/09/2021 [facility] DATE CREATED AUTHOR AUTHOR'S ORGANIZ ATION 12/23/2021 [facility] DATE CREATED AUTHOR AUTHOR'S ORGANIZ ATION 01/02/2023 [facility] DATE CREATED AUTHOR AUTHOR'S ORGANIZ ATION 01/25/2023 [facility] Care Team (unrecognized sect ion and content) Personnel Name: Shad Dyson MD Address: [address] [place] [address] Name: Josephine Zambrano MA Name: Aggie Colorado MA Personnel Name: Shad Dyson MD Address: Address: [address] [place] [address] Name: Josephine Zambrano MA Name: Aggie Colorado MA Personnel Name: Shad Dyson MD Address: Address: [address] [place] [address] Name: Juan Manuel BARAHONA Josephine R Name: Aggie Colorado MA S Personnel Name: Shad Dyson MD Address: Address: [address] [place] [address] Name: Josephine Zambrano MA R Name: Aggie Colorado MA S Personnel Name: Shad Dyson MD Address: Address: [address] [place] [address] Name: Juan ManuelJosephine mayen MA R Name: Aggie Colorado MA S Personnel Name: Shad Dyson MD Address: Address: [address] [place] [address]- Name: Juan ManuelJosephine mayen MA R Name: Aggie Colorado MA S Personnel Name: Shad Dyson MD Address: Address: [address] [place] [address] Name: Juan ManuelJosephine mayen MA R Name: Aggie Colorado MA S Personnel Name: Shad Dyson MD Address: Address: [address] [place] [address] Name: Juan Manuel BARAHONA Josephine R Name: [...] BE BASED ON THE PRIMARY CLINICAL RECORDS. [facility]. provides no warranty or guarantee of the accuracy or completeness of information in this document.
== END 2023-03-28 09:09 | disposition home or self-care (01) ==
LOC: US 09:08
PROVIDERS: PCP Nurse Practitioner Family; Visit Provider Nurse Practitioner Family
DX: R05.9 Cough, unspecified (principal); R10.9 Unspecified abdominal pain
CPT/HCPCS: 76700

== ENCOUNTER 2023-04-12 01:01 | Outpatient (RCR) | payer MEDICARE, OTHER, SELFPAY | END 2023-05-10 12:58 | disposition home or self-care (01) | LOC: MM 01:01 | PROVIDERS: PCP Nurse Practitioner Family; Visit Provider Internal Medicine | DX: Z51.81 Encounter for therapeutic drug level monitoring (principal); Z79.01 Long term (current) use of 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; I48.20 Chronic atrial fibrillation, unspecified | CPT/HCPCS: 85610; G0463 ==

== ENCOUNTER 2023-04-26 10:22 | Emergency (ER) | payer MEDICARE, OTHER, SELFPAY ==
[2023-04-26] VITALS (12 sets, daily range): BP systolic 105–180; BP diastolic 75–98; PULSE 59–64; RESP 12–18; TEMP 36.9; O2SAT 95–98; BMI 29.3
--- NOTE | 2023-04-26 10:31 | ECG_ITS ---
[facility] Test Date: 2023-04-26 Pat Name: LAKIA RODRIGUEZ Department: Room: - Gender: Male Blood Bank Order Control Clerk: : [id number] Requested By: SILVIO AGUILA Order Number: [id number] Reading MD: YONATHAN DOMINGUEZ Measurements Intervals [place] Rate: 60 P: -43 WV: 216 QRS: 241 QRSD: 104 T: 57 QT: 428 QTc: 428 Interpretive Statements 12342 Electronic atrial pacemaker 5120 Possible right ventricular hypertrophy 8003 Consistent with pulmonary disease 9150 abnormal ECG Electronically Signed On 04-27-2023 7:24:03 EDT by YONATHAN DOMINGUEZ
--- OUTSIDE RECORDS SUMMARY | 2023-04-26 10:44 | XMS_ITS | CCD ---
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 Name Role Phone RANIDOMINGO Unavailable Unavailab Lakia May Primary Care Physician [phone] Josephine Zambrano Unavailable Unavailable Aggie [place] Unavailable Unavailable KANWALY, DR DORMAN Primary Care Unavailable CYNTHIA AGUILA Attending Unavailable CYNTHIA AGUILA Admitting Unavailable DR LAKIA DYSON Primary Care Unavailable CYNTHIA AGUILA Attending Unavailable CYNTHIA AGUILA Consulting Unavailable CYNTHIA AGUILA Admitting Unavailable GANGWANIADRIANA Referring Unavailab le SHANTELL, MARTIN Referring Unavailable ANABELA, JESUS Admitting Unavailable SHANTELL, MARTIN Referring Unavailable GANGWANIADRIANA Attending Unavailab le GANGWANIADRIANA Consulting Unavailab le GANGWANIADRIANA Referring Unavailab le MATILDEHAYLEY Referring Unavailable GANGWANI, ADRIANA SANTOS Referring Unavailab le GANGWANI, ADRIANA SANTOS Referring Unavailab le NORI PRATT Attending Unavailable GANGWANI, ADRIANA SANTOS Referring Unavailab le TERENCENORI Attending Unavailable TERENCENORI Attending Unavailable ANABELA, JESUS Referring Unavailable ANABELA, JESUS Referring Unavailable MOUKARBELCHARLEEN Referring Unavailable ANABELA, JESUS Referring Unavailable GANGWANI, ADRIANA SANTOS Referring Unavailab le GANGWANI, ADRIANA SANTOS Referring Unavailab le GANGWANI, ADRIANA SANTOS Referring Unavailab le MATILDEHAYLEY Referring Unavailable YEARTYDEANNA Referring Unavailable GANGWANI, ADRIANA SANTOS Referring Unavailab le YEARTY DEANNA Referring Unavailable NORI PRATT Attending Unavailable ALYXGLIANNANI, ADRIANA SANTOS Referring Unavailab le MATILDEHAYLEY Referring Unavailable JONG, MERCEDES Referring Unavailable Dougie Harmon Attending Unavailable Mouchli, Mohamad A. Admitting Unavailable Mouchli, Mohamad A. Attending Unavailable Mouchli, Mohamad A. Referring Unavailable Mouchli, Mohamad A. Admitting Unavailable Mouchli, Mohamad A. Attending Unavailable Dougie Harmon Attending Unavailable Cira, Yusra A Consulting Unavailable Dougie Harmon Admitting Unavailable Cira, Yusra A Consulting Unavailable Cira, Yusra A Consulting Unavailable Cira, Yusra A Consulting Unavailable Cira, Yusra A Consulting Unavailable Cira, Yusra A Consulting Unavailable Cira, Yusra A Consulting Unavailable Cira, Yusra A Consulting Unavailable Cira, Yusra A Consulting Unavailable Cira, Yusra A Admitting Unavailable Cira, Yusra A Attending Unavailable Cira, Yusra A Attending Unavailable Ivelisse, Judyd A. Attending Unavailable Cira, Yusra A Attending Unavailable Cira, Yusra A Attending Unavailable Domingo DE LA ROSA Attending Unavailable Allergies Allergy Classification Reported Allergen(s) Allergy Type Date of Onset Reaction(s) Facility (18 sources) Penicillins; 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: [PENICILLINS] Propensity to adverse reactions to drug (disorder) 6 AOF, unknown [facility] Repository (8 sources) RAGWEED; 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: [RAGWEED] Propensity to adverse reactions to drug (disorder) 6 Dyspnea (finding) [facility] Repository (1 source) house dust allergenic extract; 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: [HOUSE DUST] Drug Allergy 3 [facility] Repository Medications Current Medications Medication Drug Class(es) Dates Sig (Normalized) Sig (Original) albuterol HFA 90 mcg/inh MDI (14 sources) Start: 05-13-2018 take 2 puff(s) by inhalation four times daily for wheezing albuterol HFA 90 mcg/inh MDI 2 puff(s), Inhalation, QID for wheezing, 6.7 gram, Refill(s) 0, [id number] Start Date: 05/13/18 Status: Ordered amLODIPine 2.5 mg oral tablet (14 sources) Dihydropyridine Calcium Channel Darryl Start: 11-22-2017 take 1 tablet by mouth once daily amLODIPine 2.5 mg Tab 2.5 mg = 1 tab(s), Oral, Daily, # 30 tab(s), Refills(s) 0, High blood pressure Start Date: 11/22/17 Status: Ordered apixaban 2.5 mg oral tablet (14 sources) Factor Xa Inhibitor Start: 08-29-2018 take 1 tablet by mouth twice daily Eliquis 2.5 mg oral tablet 2.5 mg = 1 tab(s), Oral, BID, # 60 tab(s), Refills(s) 5, Pharmacy: [id number] Start Date: 08/29/18 Status: Ordered atorvastatin 10 mg oral tablet (14 sources) HMG-CoA Reductase Inhibitor Start: 11-22-2017 take 1 tablet by mouth once daily atorvastatin 10 mg Tab 10 mg = 1 tab(s), Oral, Daily, # 30 tab(s), Refills(s) 0, High cholesterol Start Date: 11/22/17 Status: Ordered bisacodyl 10 mg rectal suppository (3 sources) Stimulant Laxative Start: 04-15-2023 take 10 mg rectal route once daily as needed for constipation bisacodyl 10 mg Supp 10 mg = 1 supp, Rectal, Daily, PRN for constipation, # 12 supp, Refills(s) 0, Pharmacy: [facility]/pharmacy #[id number], 167, cm, 04/15/23 12:19:00 EST, Height/Length Dosing, 89, kg, 04/15/23 12:19:00 EST, Weight Dosing Start Date: 04/15/23 Status: Ordered glipiZIDE 5 mg oral tablet (14 sources) Sulfonylurea Start: 07-13-2019 take 1 tablet by mouth once daily glipiZIDE 5 mg Tab 5 mg = 1 tab(s), Oral, Daily, # 30 tab(s), Refills(s) 0, Blood glucose Start Date: 07/13/19 Status: Ordered Immodium A-D 2 mg Cap (9 sources) Start: 04-05-2017 take 1 capsule by mouth once Immodium A-D 2 mg Cap 2 mg = 1 cap(s), Oral, QIDACHS, pt takes scheduled unless constipated, Refills(s) 0, Diarrhea Start Date: 04/05/17 Status: Ordered lisinopril 2.5 mg oral tablet (14 sources) Angiotensin Converting Enzyme Inhibitor Start: 05-12-2018 [...] powder for reconstitution (1 source) Start: 07-19-2021 NuLYTELY Carrillo oral powder for reconstitution See Instructions, 1 EA, Refill(s) 0, Prior to colonoscopy., [facility]pharmacy #[id number], 167.6, cm, 07/19/21 8:57:00 EDT, Height/Length Dosing, 93, kg, 07/19/21 8:57:00 EDT, Weight Dosing Start Date: 07/19/21 Status: Ordered pantoprazole 40 mg extended release oral tablet (14 sources) Proton Pump Inhibitor Start: 02-18-2017 take 40 mg by mouth once daily pantoprazole 40 mg, Oral, Daily, Refills(s) 0, Control of stomach acid Start Date: 02/18/17 Status: Ordered pioglitazone 15 mg oral tablet (14 sources) Peroxisome Proliferator Receptor alpha Agonist, Peroxisome Proliferator Receptor gamma Agonist, Thiazolidinedione Start: 05-12-2018 take 1 tablet by mouth once daily pioglitazone 15 mg Tab 15 mg = 1 tab(s), Oral, Daily, Refills(s) 0, Blood glucose Start Date: 05/12/18 Status: Ordered polyethylene glycol 3350 92100 mg powder for oral solution (11 sources) Osmotic Laxative Start: 05-12-2018 polyethylene glycol [...] Status: Ordered predniSONE 10 mg oral tablet (14 sources) Start: 05-13-2018 predniSONE 10 mg Tab See Instructions, Oral 6 tabs for 1 day,5 tabs for 1 day,4 tabs for 1 day,3 tabs for 1 day,2 tabs for 1 day,1 tab for 1 day, # 21 tab(s), Refills(s) 0, [id number] Start Date: 05/13/18 Status: Ordered psyllium 525 mg oral capsule (6 sources) Start: 05-17-2022 End: 06-22-2023 take 5 capsules by mouth once daily Metamucil 525 mg oral capsule 2,625 mg = 5 cap(s), Oral, Daily, X 90 day(s), # 450 cap(s), Refills(s) 3, [id number], 167.6, cm, 06/27/22 8:28:00 EDT, Height/Length Dosing, 94.9, kg, 06/27/22 8:28:00 EDT, Weight Dosing Start Date: 06/27/22 Stop Date: 06/22/23 Status: Ordered Senna Leaves (3 sources) Start: 04-15-2023 Senna 8.6 mg oral tablet 17.2 mg, 2 tab(s), Oral, BID for constipation, 100 tab(s), Refill(s) 4, [id number] 167, cm, 04/15/23 12:19:00 EST, Height/Length Dosing, 89, kg, 04/15/23 12:19:00 EST, Weight Dosing Start Date: 04/15/23 Status: Ordered warfarin sodium 4 mg oral tablet (20 sources) Vitamin K Antagonist Start: 04-14-2019 take 1 tablet by mouth once Coumadin 4 mg Tab 4 mg = 1 tab(s), Oral, As Directed, as directed, per INR results, # 90 tab(s), Refills(s) 0, Pharmacy: [facility]/pharmacy #[id number], 167.6, cm, 01/02/19 13:46:00 EST, Height/Length Measured, 95.8, kg, 01/02/19 13:46:00 EST, Weight Measured Start Date: 04/14/19 Status: Ordered Start: 05-12-2018 warfarin 4 mg Tab 4 mg = 1 tab(s), Oral, MonWeFrSaSu, Refills(s) 0, Blood Thinner Start Date: 05/12/18 Status: Ordered Problems Active Problems Problem Classification Problem Date Documented Date Episodic/Chronic Abdominal pain (1 source) Abdominal tenderness; 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: [Abdominal tenderness, unspecified site] Onset: 4 Episodic Asthma (2 sources) Mild intermittent asthma, uncomplicated; 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: [Mild intermittent asthma, uncomplicated] Onset: 3 Chronic Cancer of colon (14 sources) Carcinoma of colon, stage I 04-05-2017 Chronic Cancer of colon (1 source) History of malignant neoplasm of colon; 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: [Personal history of other malignant neoplasm of large intestine] Onset: 2 Episodic Cancer of rectum and anus (17 sources) History of malignant neoplasm of rectum; 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: [Personal history of other malignant neoplasm of rectum, rectosigmoid junction, and anus] Onset: 2 Episodic Cardiac dysrhythmias (2 sources) Paroxysmal atrial fibrillation; 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: [Paroxysmal atrial fibrillation] Onset: 3 Chronic Coagulation and hemorrhagic disorders (15 sources) Hypercoagulability state; 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] Onset: 4 11-14-2020 Chronic Conduction disorders (2 sources) Presence of automatic (implantable) cardiac defibrillator; 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: [Presence of automatic (implantable) cardiac defibrillator] Onset: 3 Chronic Congestive heart failure; nonhypertensive (6 sources) Chronic systolic (congestive) heart failure; 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: [Acute on chronic systolic (congestive) heart failure] Onset: 3 Chronic Coronary atherosclerosis and other heart disease (4 sources) Atherosclerotic heart disease of [place] coronary artery without angina pectoris; 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: [Coronary atherosclerosis due to calcified coronary lesion] Onset: 3 Chronic Diverticulosis and diverticulitis (12 sources) Diverticula of intestine; 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: [Diverticulosis of intestine, part unspecified, without perforation or abscess without bleeding] Onset: 2 Chronic Esophageal disorders (20 sources) Gastroesophageal reflux disease without esophagitis; 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: [Gastro-esophageal reflux disease without esophagitis] Onset: 2 Chronic Hemorrhoids (11 sources) Hemorrhoids; 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: [Unspecified hemorrhoids] Onset: 2 [...] sources) Long-term current use of anticoagulant; 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] Episodic Other aftercare (2 sources) 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; 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] Onset: 3 Episodic Other and unspecified benign neoplasm (11 sources) Polyp of colon; 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: [Polyp of colon] Onset: 2 Episodic Other and unspecified benign neoplasm (8 sources) History of polyp of colon; 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: [Personal history of colonic polyps] Onset: 3 Episodic Other gastrointestinal disorders (14 sources) Dysphagia; 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: [Dysphagia, unspecified] Onset: 2 Episodic Other gastrointestinal disorders (2 sources) Altered bowel function; 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: [Change in bowel habit] Onset: 2 Episodic Other gastrointestinal disorders (12 sources) Alteration in bowel elimination 07-19-2021 Episodic Other gastrointestinal disorders (1 source) Constipation, unspecified; 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: [Constipation, unspecified] Onset: 3 Episodic Other gastrointestinal disorders (2 sources) Swollen abdomen; 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: [Abdominal distension (gaseous)] Onset: 3 Episodic Other gastrointestinal disorders (6 sources) Abdominal bloating 05-17-2022 Episodic Other gastrointestinal disorders (6 sources) Constipation 05-17-2022 Episodic Other nutritional; endocrine; and metabolic disorders (1 source) Metabolic disease; 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: [Other specified metabolic disorders] Onset: 4 Chronic Other nutritional; endocrine; and metabolic disorders (1 source) Abnormal weight loss; 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: [Abnormal weight loss] Onset: 4 Episodic Other upper respiratory infections (1 source) Acute sinusitis, unspecified; 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: [ACUTE SINUSITIS UNSPECIFIED] Onset: 2 Episodic Pancreatic disorders (not diabetes) (1 source) Cyst of pancreas; 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: [Cyst of pancreas] Onset: 4 Episodic Phlebitis; thrombophlebitis and thromboembolism (18 sources) Deep venous thrombosis; 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: [History of [...] Test Name Value Interpretation Reference Range Facility Reminderson 04-24-2023 Reminders - From: Ivelisse ENCISO, Shaun Che To: Claudine BARAHONA, Bev S; Sent: 04/24/2023 10:23:02 EDT ! Show up: 04/24/2023 10:23:02 EDT Actions: Quick Reminder 1 Due Date/Time: 04/25/2023 10:22:00 EDT Reminder Comments: Fat seen in the pancreas. No further workup needed Results: Date Result Type Result Name 04/23/2023 19:[address] Abdomen w/ + w/o Contrast made patient aware, verbalized clear understanding. Normal [facility] CT Abdomen w/ + w/o Contrast on 04-23-2023 CT Abdomen w/ + w/o Contrast Exam Date/Time: 04/23/2023 12:01 EDT Reason for Exam: R10.9;Change in Bowel habits Report IMPRESSION: PARTIAL PANCREATIC FATTY REPLACEMENT. NO MASSES IDENTIFIED. CT OF THE ABDOMEN AND PELVIS WITH AND WITHOUT INTRAVENOUS CONTRAST MEDIUM. History: Change in Bowel habits, R10.9. Colon cancer. Abnormality detected on ultrasound within pancreas. Technical Factors: CT imaging of the abdomen were obtained and matted as 3 mm contiguous axial images from the domes of the diaphragm to the pelvic brim. Imaging obtained with and without intravenous contrast medium.. Sagittal and coronal reconstructions were also obtained. Oral contrast medium: 100, 450 mL. Intravenous contrast medium: Isovue-300, 100 mL. Comparison: CT abdomen pelvis, October 19, 2020. Findings: Lungs: Lung bases are clear. Liver: Normal in size, shape, and attenuation. Bile Ducts: Normal in caliber. Gallbladder: No stones or wall thickening. Pancreas: Partial fatty replacement, without masses, cysts, ductal dilatation or calcification. No peripancreatic fluid collections or fat stranding. Spleen: Normal in size without masses or calcifications. No splenules. Kidneys: Normal in size and enhancement. No hydronephrosis, or stones. 7 mm exophytic cyst, mid pole left kidney.. Adrenals: Normal. Small bowel: Normal in caliber. Appendix: Normal. Colon: Normal in caliber. Peritoneum: No ascites, free air, or fluid collections. Report Vessels: Aorta normal in course and caliber. Retroaortic left renal vein, normal variant. Portal vein, splenic vein, superior mesenteric vein are patent. Lymph nodes: Retroperitoneal: No enlarged retroperitoneal lymph nodes. Mesenteric: No enlarged mesenteric lymph nodes. Ureters: Normal in course and caliber. No calcifications. Abdominal Wall: No hernia identified. No diastasis of rectus musculature. No edema or masses. Bones: No bone lesions. No degenerative changes. No post operative changes. All CT scans at this facility use dose modulation, iterative reconstruction, and/or weight based dosing when appropriate to reduce radiation dose to as low as reasonably achievable. Ordering Provider: Shaun Oviedo FINAL REPORT Dictated: 04/23/2023 7:00 pm Long Sow MD Signed (Electronic Signature): 04/23/2023 7:00 pm Signed by: Long Sow MD Transcribed by: ZEKE Technologist: FRANCO Technical Comments GFR (mL/min/1/73m2) 46 Contrast: Isovue 300 Contrast amount in ml's: 100 Oral contrast amount in ml's: 450 Normal [facility] Consent for Treatmenton 04-11 Consent for Treatment [id number]#1.0 0TIFF Normal [facility] CHEMISTRYOrdered By: SYSTEM SYSTEM on 04-19-2023 Creatinine [Mass/Vol] 1.6 mg/dL High 0.5 - 1.3 mg/dL Remisol Chem eGFR 46 mL/min/1.73 m2 Low >=59mL/min /1 .73 m2 Remisol Chem Consent for Treatmenton Consent for Treatment [id number]#1.0 0TIFF Normal [facility] Creatinineon 04-19-2023 Creatinine [Mass/Vol] 1.6 mg/dL High 0.5-1.3 [facility] Comment on above: Performed By: #### 2 [id number] ####[facility] [address] [place] [address] Physician Orderon 04-19-2023 Physician Order [id number] .00TIFF Normal [facility] eGFRon 04-19-2023 eGFR 46 mL/min/1.73 m2 Low >=59 [facility] Comment on above: Order Comment: Order added by Discern Expert. Performed By: #### 2 [id number], [id number] ####[facility] [address] [place] [address] Gastroenterology Office/Clin ic Noteon 04-15-2023 Gastroenterology Office/Clinic Note Chief Complaint abdominal pain, diarrhea, spot on pancreas HPI Staff This is a 72 year old male who presents today for a sick call for complaints of abdominal pain and diarrhea. Abdominal pain: When did you first have this pain: 8+ years Quality (sharp, dull): both Constant or comes or go: comes and goes location and radiation: lower abdominal pain Relation to food:no bloating constipation then turns to diarrhea, diarrhea usually last 5-7 hours, takes OTC medications, seems to help a little. history of colon cancer 8 years ago. Previous work up: Labs: 03/28/23 EGD: 10/05/21 Colonoscopy: 10/05/21 Imaging: US 03/28/23 Previous work up: TSH: Celiac panel Calprotectin C Diff Enteric panel or stool culture Stool fat Other: US abd 03/28/23 IMPRESSION: Findings suggestive of hepatic steatosis or diffuse fibrotic process. Possible new hypoechogenic lesion within the tail of pancreas. An MRCP is recommended for further evaluation. No other significant abnormality is noted. Last visit w/ Yusra 06/27/22 Assessment/Plan BP elevated today at 146/82- BP managed by patient's PCP. 1. Constipation (K59.00: Constipation, unspecified) Improved with metamucil fiber 5 capsules daily. Continue fiber supplementation daily. Continue to drink adequate amount of water daily. 2. Bloating (R14.0: Abdominal distension (gaseous)) see #1 3. History of rectal cancer (Z85.048: Personal history of other malignant neoplasm of rectum, rectosigmoid junction, and anus) History of rectal cancer 08/2015 status postchemotherapy, radiation, and resection. Colonoscopy completed 10/05/2021 revealed minimally hyperplastic mucosa noted from cecum polyp, diverticulosis, colonic/rectal anastomosis in rectum normal, hemorrhoids?repeat colonoscopy in 5 years?2026. 4. History of colon polyps (Z86.010: Personal history of colonic polyps) see #3 5. Acid reflux (K21.9: Gastro-esophageal reflux disease without esophagitis) Controlled with pantoprazole 40mg daily. Previous EGD with dilation 10/05/2021 that revealed tight distal schatzki's ring- dilated, normal gastric mucosa, normal duodenum. Last colon 10/05/21 w/ Dr Hinojosa Impression and Plan 1. Diminutive polyp, 2 mm, in the cecum, removed completely with cold snare 2. Mild diverticulosis in the sigmoid 3. Colonic/rectal anastomosis, end to end, in the rectum, normal looking Recommendations: Repeat colonoscopy:: In 5 years, Pending pathology results. Final Diagnosis (Verified) POLYP, CECUM, POLYPECTOMY: ARCHITECTURALLY NORMAL TO MINIMALLY HYPERPLASTIC COLONIC MUCOSA - NO DIAGNOSTIC EVIDENCE OF CHRONIC INFLAMMATORY BOWEL DISEASE OR NEOPLASM Last EGD w/ Dr Hinojosa 10/05/21 w/ Dr Hinojosa Impression and Plan Tight distal esophageal Schatzki ring, disrupted using cold forceps and then dilated using 56 [place] dilator History of Present Illness pt with hx of rectal cancer underwent chemo/radiation/and radiation pt developed PEs and DVTs after that - on Coumadin pt is constipated for 6 days then it breaks loose pt tries OTC medications - diarrhea lasting for 6 hours and pt tries anti-diarrhea medications eating 3-4 meals a day pt with borderline DM and eats 0 sugar PT is distended and feels bloated after eating small meals - better after moving the bowels pt lost about 22 pounds since November fiber helped before it gave him diarrhea PT with excessive straining and loss of sensation to go also urinating more frequently pt nauseous with no vomiting I have reviewed HPI staff note, most recent labs and imaging, more than 30 minutes spent reviewing the chart, during encounter, placing orders and counseling the patient. Review of Systems PHQ Score Initial Depression Screen Score: 0 SCORE All systems reviewed, negative except as mentioned above Physical Exam Vitals & Measurements HR: 80(Peripheral) RR: 16 BP: 168/81 HT: 66 in HT: 167 cm WT: 89 kg WT: 195.8 lb BMI: 31.91 General: alert, no acute distress HEENT: atraumatic normocephalic Cardiovascular: regular rate and rhythm, normal peripheral perfusion Respiratory: Lungs CTA, respirations non labored Extremities: no deformity, no trauma Abdomen: Benign, soft, nontender nondistended BULL: Spastic anal tone and decreased squeeze pressure. Hard stool in the anal verge Genitals: 5 cm lump in the left groin concerning for hernia. tender to palpation in both inguinal canals Assessment/Plan 1. Abdominal tenderness, unspecified site (R10.819: Abdominal tenderness, unspecified site) 2. History of colon polyps (Z86.010: Personal history of colonic polyps) 3. History of rectal cancer (Z85.048: Personal history of other malignant neoplasm of rectum, rectosigmoid junction, and anus) 4. Diverticulosis (K57.90: Diverticulosis of intestine, part unspecified, without perforation or abscess without bleeding) 5. Hypercoagulable state (D68.59: Other primary thrombophilia) 6. Bloating (R14.0: Abdominal (more content not included)... Normal [facility] Comment on above: Result Comment: Elec tronically Signed By: Ivelisse ENCISO, Shaun Stewart.br\Date and Time Signed: 04/15/23 13:07 EST Lab Reportson 04-15-2023 Lab Reports [id number]#1.0 0TIFF Normal [facility] OT - Otheron 04-15-2023 OT - Other [id number]. 00TIFF Normal [facility] RAD - Ultrasound Reporton RAD - Ultrasound Report [id number]#1.0 0TIFF Normal [facility] Follow-Upon 12-12-2022 Follow-Up Normal [facility] Documentationon 12-06-2022 Documentation Normal [facility] 30on 12-05-2022 30 Normal [facility] BASIC METABOLIC PANELon 11-12 Anion gap [Moles/Vol] 10 mmol/L Normal 7-20 [facility] Comment on above: Performed By: #### L AB15 ####[facility] ([facility] [place] [address] Calcium [Mass/Vol] 9.3 mg/dL Normal 8.6-10.3 [facility] Comment on above: Performed By: #### L AB15 ####[facility] ([facility])[address] [place] [address] Chloride [Moles/Vol] 104 mmol/L Normal 98-107 [facility] Comment on above: Performed By: #### L AB15 ####[facility] ([facility])[address] [place] [address] CO2 [Moles/Vol] 24 mmol/L Normal 21-31 [facility] Comment on above: Performed By: #### L AB15 ####[facility] ([facility])[address] [place] [address] Creatinine [Mass/Vol] 1.20 mg/dL Normal 0.70-1.30 [facility] Comment on above: Performed By: #### L AB15 ####[facility] ([facility])[address] [place] [address] GLOMERULAR FILTRATION RATE ML/MIN/1.73 SQ M.PREDICTED 65.1 mL/min/1.73m*2 Normal >60.0 [facility] Comment on above: Result Comment: [facility]???s estimated glomerular filtration rate [...] of individuals. Performed By: #### L AB15 ####[facility] ([facility])[address] [place] [address] Glucose [Mass/Vol] 148 mg/dL High 70-100 [facility] Comment on above: Performed By: #### L AB15 ####[facility] ([facility])[address] [place] [address] Potassium [Moles/Vol] 4.3 mmol/L Normal 3.5-5.1 [facility] Comment on above: Performed By: #### L AB15 ####[facility] ([facility])[address] [place] [address] Sodium [Moles/Vol] 134 mmol/L Low 136-145 [facility] Comment on above: Performed By: #### L [id number] ####[facility] ([facility])[address] [place] [address] Urea nitrogen [Mass/Vol] 28 mg/dL High 7-25 [facility] Comment on above: Performed By: #### L [id number] ####[facility] ([facility])[address] [place] [address] UREA NITROGEN/CREATININE (MASS RATIO) IN SER/PLAS 23.3 Normal [facility] Comment on above: Performed By: #### L [id number] ####[facility] ([facility])[address] [address] CBCon 12-05-2022 Erythrocyte distribution width (RBC) [Ratio] 14.3 % Normal 11.5-15.0 [facility] Comment on above: Performed By: #### L [id number] ####[facility] ([facility])[address] [place] [address] ERYTHROCYTE MEAN CORPUSCULAR HEMOGLOBIN CONCENTRATION (G/DL) BY AUTOMATED 33.5 g/dL Normal 32.0-35.0 [facility] Comment on above: Performed By: #### L [id number] ####[facility] ([facility])[address] [place] [address] Hematocrit (Bld) [Volume fraction] 39.4 % Normal 39.0-55.0 [facility] Comment on above: Performed By: #### L [id number] ####[facility] ([facility])[address] [place] [address] Hemoglobin (Bld) [Mass/Vol] 13.2 g/dL Normal 13.0-17.0 [facility] Comment on above: Performed By: #### L [id number] ####[facility] ([facility])[address] [place] [address] IMMATURE PLATELET FRACTION % 2.2 % Normal 0.8-6.3 [facility] Comment on above: Performed By: #### L [id number] ####[facility] ([facility])[address] [place] [address] MCH (RBC) [Entitic mass] 29.7 pg Normal 27.0-33.0 [facility] Comment on above: Performed By: #### L [id number] ####[facility] ([facility])[address] [place] [address] MCV (RBC) [Entitic vol] 88.5 fL Normal 82.0-98.0 [facility] Comment on above: Performed By: #### L [id number] ####[facility] ([facility])[address] [place] [address] PLATELETS (10*3/UL) IN BLOOD AUTOMATED COUNT 132 10*3/uL Low 150-400 [facility] Comment on above: Performed By: #### L [id number] ####[facility] ([facility])[address] [place] [address] RBC (Bld) [#/Vol] 4.45 10*6/uL Normal 4.20-5.70 [facility] Comment on above: Performed By: #### L [id number] ####[facility] ([facility])[address] [place] [address] WBC (Bld) [#/Vol] 6.95 10*3/uL Normal 4.00-10.60 [facility] Comment on above: Performed By: #### L [id number] ####[facility] ([facility])[address] [place] [address] DSon 12-05-2022 DS Normal [facility] POCT GLUCOSE METER UNSOLICIT ED RESULTSon 12-05-2022 Glucose [Mass/Vol] 147 mg/dL High 70-105 [facility] Comment on above: Order Comment: Waive d Testing in the ED is performed under the ED CLIA certificate #[id number]. Result Comment: [email or web address] Performed By: #### L [id number] ####[facility] ([facility])[address] [place] [address] Glucose [Mass/Vol] 185 mg/dL High 70-105 [facility] Comment on above: Order Comment: Waive d Testing in the ED is performed under the ED CLIA certificate #[id number]. Result Comment: [email or web address] Performed By: #### L [id number] ####[facility] ([facility])[address] [place] [address] Glucose [Mass/Vol] 153 mg/dL High 70-105 [facility] Comment on above: Order Comment: Waive d Testing in the ED is performed under the ED CLIA certificate #[id number]. Result Comment: [email or web address] Performed By: #### L [id number] ####[facility] ([facility])[address] [place] [address] 30on 12-04-2022 30 The patient is Moderately Stable - Low risk of patient condition declining or worsening The patient's goals for the shift include comfort The clinical goals for the shift include stable vitals Normal [facility] 30 Normal [facility] 30 The patient is Moderately Stable - Low risk of patient condition declining or worsening The patient's goals for the shift include Comfort The clinical goals for the shift include VSS Normal [facility] BASIC METABOLIC PANELon 10- Anion gap [Moles/Vol] 11 mmol/L Normal 7-20 [facility] Comment on above: Performed By: #### L [id number] ####[facility] ([facility])[address] [place] [address] Calcium [Mass/Vol] 8.9 mg/dL Normal 8.6-10.3 [facility] Comment on above: Performed By: #### L [id number] ####[facility] ([facility])[address] [place] [address] Chloride [Moles/Vol] 105 mmol/L Normal 98-107 [facility] Comment on above: Performed By: #### L [id number] ####[facility] ([facility])[address] [place] [address] CO2 [Moles/Vol] 23 mmol/L Normal 21-31 [facility] Comment on above: Performed By: #### L [id number] ####[facility] ([facility])[address] [place] [address] Creatinine [Mass/Vol] 1.32 mg/dL High 0.70-1.30 [facility] Comment on above: Performed By: #### L [id number] ####[facility] ([facility])[address] [place] [address] GLOMERULAR FILTRATION RATE ML/MIN/1.73 SQ M.PREDICTED 58.0 mL/min/1.73m*2 Low >60.0 [facility] Comment on above: Result Comment: [facility]???s estimated glomerular filtration rate [...] of individuals. Performed By: #### L [id number] ####[facility] ([facility])[address] [place] [address] Glucose [Mass/Vol] 144 mg/dL High 70-100 [facility] Comment on above: Performed By: #### L [id number] ####[facility] ([facility])[address] [place] [address] Potassium [Moles/Vol] 4.5 mmol/L Normal 3.5-5.1 [facility] Comment on above: Performed By: #### L [id number] ####[facility] ([facility])[address] [place] [address] Sodium [Moles/Vol] 134 mmol/L Low 136-145 [facility] Comment on above: Performed By: #### L [id number] ####[facility] ([facility])[address] [place] [address] Urea nitrogen [Mass/Vol] 37 mg/dL High 7-25 [facility] Comment on above: Performed By: #### L [id number] ####[facility] ([facility])[address] [place] [address] UREA NITROGEN/CREATININE (MASS RATIO) IN SER/PLAS 28.0 Normal [facility] Comment on above: Performed By: #### L [id number] ####[facility] ([facility])[address] [place] [address] CBCon 12-04-2022 Erythrocyte distribution width (RBC) [Ratio] 14.9 % Normal 11.5-15.0 [facility] Comment on above: Performed By: #### L [id number] ####[facility] ([facility])[address] [place] [address] ERYTHROCYTE MEAN CORPUSCULAR HEMOGLOBIN CONCENTRATION (G/DL) BY AUTOMATED 32.6 g/dL Normal 32.0-35.0 [facility] Comment on above: Performed By: #### L [id number] ####[facility] ([facility])[address] [place] [address] Hematocrit (Bld) [Volume fraction] 39.0 % Normal 39.0-55.0 [facility] Comment on above: Performed By: #### L [id number] ####[facility] ([facility])[address] [place] [address] Hemoglobin (Bld) [Mass/Vol] 12.7 g/dL Low 13.0-17.0 [facility] Comment on above: Performed By: #### L [id number] ####[facility] ([facility])[address] [place] [address] IMMATURE PLATELET FRACTION % 3.8 % Normal 0.8-6.3 [facility] Comment on above: Performed By: #### L [id number] ####[facility] ([facility])[address] [place] [address] MCH (RBC) [Entitic mass] 29.6 pg Normal 27.0-33.0 [facility] Comment on above: Performed By: #### L [id number] ####[facility] ([facility])[address] [place] [address] MCV (RBC) [Entitic vol] 90.9 fL Normal 82.0-98.0 [facility] Comment on above: Performed By: #### L [id number] ####[facility] ([facility])[address] [place] [address] PLATELETS (10*3/UL) IN BLOOD AUTOMATED COUNT 130 10*3/uL Low 150-400 [facility] Comment on above: Performed By: #### L [id number] ####[facility] ([facility])[address] [place] [address] RBC (Bld) [#/Vol] 4.29 10*6/uL Normal 4.20-5.70 [facility] Comment on above: Performed By: #### L [id number] ####[facility] ([facility])[address] [place] [address] WBC (Bld) [#/Vol] 6.97 10*3/uL Normal 4.00-10.60 [facility] Comment on above: Performed By: #### L [id number] ####[facility] ([facility])[address] [place] [address] POCT GLUCOSE METER UNSOLICIT ED RESULTSon 12-04-2022 Glucose [Mass/Vol] 167 mg/dL High 70-105 [facility] Comment on above: Order Comment: Waive d Testing in the ED is performed under the ED CLIA certificate #[id number]. Result Comment: aung [email or web address] Performed By: #### L [id number] ####[facility] ([facility])[address] [place] [address] Glucose [Mass/Vol] 105 mg/dL Normal 70-105 [facility] Comment on above: Order Comment: Waive d Testing in the ED is performed under the ED CLIA certificate #[id number]. Result Comment: [email or web address] Performed By: #### L [id number] ####[facility] ([facility])[address] [place] [address] Glucose [Mass/Vol] 152 mg/dL High 70-105 [facility] Comment on above: Order Comment: Waive d Testing in the ED is performed under the ED CLIA certificate #[id number]. Result Comment: [email or web address] Performed By: #### L [id number] ####[facility] ([facility])[address] [place] [address] 30on 12-03-2022 30 The patient is Moderately Stable - Low risk of patient condition declining or worsening The patient's goals for the shift include comfort The clinical goals for the shift include stable vitals Normal [facility] 30 The patient is Moderately Stable - Low risk of patient condition declining or worsening The patient's goals for the shift include Comfort The clinical goals for the shift include VSS Normal [facility] 30 Normal [facility] ANESon 12-03-2022 ANES Normal [facility] ANES Normal [facility] Anesthesiaon 12-03-2022 Anesthesia [id number] Lakia Rodriguez 1950 M Date Provider Department Jolon 12/03/[address] [facility] No family history on file [facility] BASIC METABOLIC PANELon 11-12 Anion gap [Moles/Vol] 12 mmol/L Normal 7-20 [facility] Comment on above: Performed By: #### L [id number] ####[facility] ([facility])[address] [place] [address] Calcium [Mass/Vol] 9.6 mg/dL Normal 8.6-10.3 [facility] Comment on above: Performed By: #### L [id number] ####[facility] ([facility])[address] [facility] [address] Chloride [Moles/Vol] 101 mmol/L Normal 98-107 [facility] Comment on above: Performed By: #### L [id number] ####[facility] ([facility])[address] [facility] [address] CO2 [Moles/Vol] 21 mmol/L Normal 21-31 [facility] Comment on above: Performed By: #### L [id number] ####[facility] ([facility])[address] [place] [address] Creatinine [Mass/Vol] 1.78 mg/dL High 0.70-1.30 [facility] Comment on above: Performed By: #### L [id number] ####[facility] ([facility])[address] [place] [address] GLOMERULAR FILTRATION RATE ML/MIN/1.73 SQ M.PREDICTED 40.5 mL/min/1.73m*2 Low >60.0 [facility] Comment on above: Result Comment: [facility]???s estimated glomerular filtration rate [...] of individuals. Performed By: #### L [id number] ####[facility] ([facility])[address] [place] [address] Glucose [Mass/Vol] 194 mg/dL High 70-100 [facility] Comment on above: Performed By: #### L [id number] ####[facility] ([facility])[address] [place] [address] Potassium [Moles/Vol] 4.3 mmol/L Normal 3.5-5.1 [facility] Comment on above: Performed By: #### L [id number] ####[facility] ([facility])[address] [place] [address] Sodium [Moles/Vol] 130 mmol/L Low 136-145 [facility] Comment on above: Performed By: #### L [id number] ####[facility] ([facility])[address] [place] [address] Urea nitrogen [Mass/Vol] 47 mg/dL High 7-25 [facility] Comment on above: Performed By: #### L [id number] ####[facility] ([facility])[address] [address] UREA NITROGEN/CREATININE (MASS RATIO) IN SER/PLAS 26.4 Normal [facility] Comment on above: Performed By: #### L [id number] ####[facility] ([facility])[address] [address] CBCon 12-03-2022 Erythrocyte distribution width (RBC) [Ratio] 14.9 % Normal 11.5-15.0 [facility] Comment on above: Performed By: #### L [id number] ####[facility] ([facility])[address] [address] ERYTHROCYTE MEAN CORPUSCULAR HEMOGLOBIN CONCENTRATION (G/DL) BY AUTOMATED 32.9 g/dL Normal 32.0-35.0 [facility] Comment on above: Performed By: #### L [id number] ####[facility] ([facility])[address] [place] [address] Hematocrit (Bld) [Volume fraction] 41.0 % Normal 39.0-55.0 [facility] Comment on above: Performed By: #### L [id number] ####[facility] ([facility])[address] [place] [address] Hemoglobin (Bld) [Mass/Vol] 13.5 g/dL Normal 13.0-17.0 [facility] Comment on above: Performed By: #### L [id number] ####[facility] ([facility])[address] [place] [address] MCH (RBC) [Entitic mass] 29.3 pg Normal 27.0-33.0 [facility] Comment on above: Performed By: #### L [id number] ####[facility] ([facility])[address] [place] [address] MCV (RBC) [Entitic vol] 89.1 fL Normal 82.0-98.0 [facility] Comment on above: Performed By: #### L [id number] ####[facility] ([facility])[address] [place] [address] PLATELETS (10*3/UL) IN BLOOD AUTOMATED COUNT 134 10*3/uL Low 150-400 [facility] Comment on above: Performed By: #### L [id number] ####[facility] ([facility])[address] [place] [address] RBC (Bld) [#/Vol] 4.60 10*6/uL Normal 4.20-5.70 [facility] Comment on above: Performed By: #### L [id number] ####[facility] ([facility])[address] [place] [address] WBC (Bld) [#/Vol] 10.62 10*3/uL High 4.00-10.60 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 Result Comment: aung sellers Performed By: #### L [id number] ####[facility] ([facility])[address] [place] [address] Glucose [Mass/Vol] 148 mg/dL High 70-105 [facility] Comment on above: Order Comment: Waive d Testing in the ED is performed under the ED CLIA certificate #[id number]. Result Comment: [email or web address] Performed By: #### L [id number] ####[facility] ([facility])[address] [place] [address] Glucose [Mass/Vol] 165 mg/dL High 70-105 [facility] Comment on above: Order Comment: Waive d Testing in the ED is performed under the ED CLIA certificate #[id number]. Result Comment: [email or web address] Performed By: #### L [id number] ####[facility] ([facility])[address] [place] [address] Glucose [Mass/Vol] 158 mg/dL High 70-105 [facility] Comment on above: Order Comment: Waive d Testing in the ED is performed under the ED CLIA certificate #[id number]. Result Comment: [email or web address] Performed By: #### L [id number] ####[facility] ([facility])[address] [place] [address] TYPE AND SCREENon 12-03-2022 AB SCREEN Negative Normal [facility] Comment on above: Performed By: #### L [id number] ####[facility] BLOOD BANK, ABO group Nom (Bld) AB Normal [facility] Comment on above: Performed By: #### L [id number] ####[facility], RH TYPE IN BLOOD Positive Normal [facility] Comment on above: Performed By: #### L [id number] ####[facility] B[facility]OD [facility], 30on 12-02-2022 30 Normal [facility] BASIC METABOLIC PANELon 11-12 Anion gap [Moles/Vol] 11 mmol/L Normal 7-20 [facility] Comment on above: Performed By: #### L [id number] ####[facility] ([facility])[address] [place] [address] Calcium [Mass/Vol] 9.6 mg/dL Normal 8.6-10.3 [facility] Comment on above: Performed By: #### L [id number] ####[facility] ([facility])[address] [place] [address] Chloride [Moles/Vol] 103 mmol/L Normal 98-107 [facility] Comment on above: Performed By: #### L [id number] ####[facility] ([facility])[address] [place] [address] CO2 [Moles/Vol] 22 mmol/L Normal 21-31 [facility] Comment on above: Performed By: #### L [id number] ####[facility] ([facility])[address] [place] [address] Creatinine [Mass/Vol] 1.73 mg/dL High 0.70-1.30 [facility] Comment on above: Performed By: #### L [id number] ####[facility] ([facility])[address] [place] [address] GLOMERULAR FILTRATION RATE ML/MIN/1.73 SQ M.PREDICTED 41.9 mL/min/1.73m*2 Low >60.0 [facility] Comment on above: Result Comment: [facility]???s estimated glomerular filtration rate [...] of individuals. Performed By: #### L [id number] ####[facility] ([facility])[address] [place] [address] Glucose [Mass/Vol] 168 mg/dL High 70-100 [facility] Comment on above: Performed By: #### L [id number] ####[facility] ([facility])[address] [place] [address] Potassium [Moles/Vol] 4.3 mmol/L Normal 3.5-5.1 [facility] Comment on above: Performed By: #### L [id number] ####[facility] (BE[facility]ER)[address] [place] [address] Sodium [Moles/Vol] 132 mmol/L Low 136-[facility] Comment on above: Performed By: #### L [id number] ####[facility] ([facility])[address] [place] [address] Urea nitrogen [Mass/Vol] 42 mg/dL High 7-25 [facility] Comment on above: Performed By: #### L [id number] ####[facility] ([facility])[address] [place] [address] UREA NITROGEN/CREATININE (MASS RATIO) IN SER/PLAS 24.3 Normal [facility] Comment on above: Performed By: #### L [id number] ####[facility] ([facility])[address] [place] [address] CBCon 12-02-2022 Erythrocyte distribution width (RBC) [Ratio] 15.0 % Normal 11.5-15.0 [facility] Comment on above: Performed By: #### L [id number] ####[facility] ([facility])[address] [place] [address] ERYTHROCYTE MEAN CORPUSCULAR HEMOGLOBIN CONCENTRATION (G/DL) BY AUTOMATED 32.8 g/dL Normal 32.0-35.0 [facility] Comment on above: Performed By: #### L [id number] ####[facility] ([facility])[address] [place] [address] Hematocrit (Bld) [Volume fraction] 40.0 % Normal 39.0-55.0 [facility] Comment on above: Performed By: #### L [id number] ####[facility] ([facility])[address] [place] [address] Hemoglobin (Bld) [Mass/Vol] 13.1 g/dL Normal 13.0-17.0 [facility] Comment on above: Result Comment: Resu lts checked Performed By: #### L [id number] ####[facility] ([facility])[address] [place] [address] MCH (RBC) [Entitic mass] 29.0 pg Normal 27.0-33.0 [facility] Comment on above: Performed By: #### L [id number] ####[facility] ([facility])[address] [place] [address] MCV (RBC) [Entitic vol] 88.7 fL Normal 82.0-98.0 [facility] Comment on above: Performed By: #### L [id number] ####[facility] ([facility])[address] [place] [address] PLATELETS (10*3/UL) IN BLOOD AUTOMATED COUNT 129 10*3/uL Low 150-400 [facility] Comment on above: Performed By: #### L [id number] ####[facility] ([facility])[address] [place] [address] RBC (Bld) [#/Vol] 4.51 10*6/uL Normal 4.20-5.70 [facility] Comment on above: Performed By: #### L [id number] ####[facility] ([facility])[address] [place] [address] WBC (Bld) [#/Vol] 13.62 10*3/uL High 4.00-10.60 [facility] Comment on above: Performed By: #### L [id number] ####[facility] ([facility])[address] [place] [address] POCT GLUCOSE METER UNSOLICIT ED RESULTSon 12-02-2022 Glucose [Mass/Vol] 208 mg/dL High 70-105 [facility] [place] Comment on above: Order Comment: Waive d Testing in the ED is performed under the ED CLIA certificate #[id number]. Result Comment: [email or web address] Performed By: #### L [id number] ####[facility] ([facility])[address] [place] [address] Glucose [Mass/Vol] 224 mg/dL High 70-105 [facility] [place] Comment on above: Order Comment: Waive d Testing in the ED is performed under the ED CLIA certificate #[id number]. Result Comment: [email or web address] Performed By: #### L [id number] ####[facility] ([facility])[address] [place] [address] Glucose [Mass/Vol] 173 mg/dL High 70-105 [facility] [place] Comment on above: Order Comment: Waive d Testing in the ED is performed under the ED CLIA certificate #[id number]. Result Comment: [email or web address] Performed By: #### L [id number] ####[facility] ([facility])[address] [facility] [place] [address] Glucose [Mass/Vol] 135 mg/dL High 70-105 [facility] [place] Comment on above: Order Comment: Waive d Testing in the ED is performed under the ED CLIA certificate #[id number]. Result Comment: [email or web address] Performed By: #### L [id number] ####[facility] ([facility])[address] [place] [address] 30on 12-01-2022 30 Normal [facility] APTTon 12-01-2022 ACTIVATED PARTIAL THROMBOPLASTIN TIME IN PPP BY COAGULATION ASSAY 28.0 Seconds Normal 25.0-35.0 [facility] Comment on above: Result Comment: Clin ical significance of the APTT is questionable in the presence of heparin. Performed By: #### L [id number] ####[facility] ([facility])[address] [facility] [place] [address] BASIC METABOLIC PANELon 10-2 Anion gap [Moles/Vol] 16 mmol/L Normal 7-20 [facility] Comment on above: Performed By: #### L [id number] ####[facility] ([facility])[address] [place] [address] Calcium [Mass/Vol] 10.4 mg/dL High 8.6-10.3 [facility] [place] Comment on above: Performed By: #### L [id number] ####[facility] ([facility])[address] [place] [address] Chloride [Moles/Vol] 101 mmol/L Normal 98-107 [facility] Comment on above: Performed By: #### L [id number] ####[facility] ([facility])[address] [place] [address] CO2 [Moles/Vol] 21 mmol/L Normal 21-31 [facility] Comment on above: Performed By: #### L [id number] ####[facility] ([facility])[address] [place] [address] Creatinine [Mass/Vol] 1.78 mg/dL High 0.70-1.30 [facility] Comment on above: Performed By: #### L [id number] ####[facility] ([facility])[address] [place] [address] GLOMERULAR FILTRATION RATE ML/MIN/1.73 SQ M.PREDICTED 40.5 mL/min/1.73m*2 Low >60.0 [facility] Comment on above: Result Comment: [facility]???s estimated glomerular filtration rate [...] of individuals. Performed By: #### L [id number] ####[facility] ([facility])[address] [place] [address] Glucose [Mass/Vol] 260 mg/dL High 70-100 [facility] [place] Comment on above: Performed By: #### L [id number] ####[facility] ([facility])[address] [place] [address] Potassium [Moles/Vol] 5.0 mmol/L Normal 3.5-5.1 [facility] Comment on above: Performed By: #### L [id number] ####[facility] ([facility])[address] [place] [address] Sodium [Moles/Vol] 133 mmol/L Low 136-145 [facility] [place] Comment on above: Performed By: #### L [id number] ####[facility] ([facility])[address] [place] [address] Urea nitrogen [Mass/Vol] 32 mg/dL High 7-25 [facility] Comment on above: Performed By: #### L [id number] ####[facility] ([facility])[address] [place] [address] UREA NITROGEN/CREATININE (MASS RATIO) IN SER/PLAS 18.0 Normal [facility] Comment on above: Performed By: #### L [id number] ####[facility] ([facility])[address] [place] [address] CBCon 12-01-2022 Erythrocyte distribution width (RBC) [Ratio] 14.7 % Normal 11.5-15.0 [facility] Comment on above: Performed By: #### L [id number] ####[facility] ([facility])[address] [address] ERYTHROCYTE MEAN CORPUSCULAR HEMOGLOBIN CONCENTRATION (G/DL) BY AUTOMATED 33.0 g/dL Normal 32.0-35.0 [facility] Comment on above: Performed By: #### L [id number] ####[facility] ([facility])[address] [place] [address] Hematocrit (Bld) [Volume fraction] 46.6 % Normal 39.0-55.0 [facility] Comment on above: Performed By: #### L [id number] ####[facility] ([facility])[address] [place] [address] Hemoglobin (Bld) [Mass/Vol] 15.4 g/dL Normal 13.0-17.0 [facility] Comment on above: Performed By: #### L [id number] ####[facility] ([facility])[address] [place] [address] MCH (RBC) [Entitic mass] 29.3 pg Normal 27.0-33.0 [facility] Comment on above: Performed By: #### L [id number] ####[facility] ([facility])[address] [place] [address] MCV (RBC) [Entitic vol] 88.8 fL Normal 82.0-98.0 [facility] Comment on above: Performed By: #### L [id number] ####[facility] ([facility])[address] [place] [address] PLATELETS (10*3/UL) IN BLOOD AUTOMATED COUNT 181 10*3/uL Normal 150-400 [facility] Comment on above: Performed By: #### L [id number] ####[facility] ([facility])[address] [place] [address] RBC (Bld) [#/Vol] 5.25 10*6/uL Normal 4.20-5.70 [facility] Comment on above: Performed By: #### L [id number] ####[facility] ([facility])[address] [place] [address] WBC (Bld) [#/Vol] 23.51 10*3/uL High 4.00-10.60 [facility] Comment on above: Performed By: #### L [id number] ####[facility] ([facility])[address] [place] [address] NURSNOTEon 12-01-2022 NURSNOTE Normal [facility] POCT GLUCOSE METER UNSOLICIT ED RESULTSon 12-01-2022 Glucose [Mass/Vol] 204 mg/dL High 70-105 [facility] [place] Comment on above: Order Comment: Waive d Testing in the ED is performed under the ED CLIA certificate #[id number]. Result Comment: [email or web address] Performed By: #### L [id number] ####[facility] ([facility])[address] [place] [address] Glucose [Mass/Vol] 248 mg/dL High 70-105 [facility] [place] Comment on above: Order Comment: Waive d Testing in the ED is performed under the ED CLIA certificate #[id number]. Result Comment: [email or web address] Performed By: #### L [id number] ####[facility] ([employer])[address] [facility] [place] [address] Glucose [Mass/Vol] 270 mg/dL High 70-105 [facility] [place] Comment on above: Order Comment: Waive d Testing in the ED is performed under the ED CLIA certificate #[id number]. Result Comment: [email or web address] Performed By: #### L [id number] ####[facility] ([employer])[address] [place] [address] PROTIME-INRon 12-01-2022 INR IN PPP BY COAGULATION ASSAY 1.21 High 0.90-1.10 [facility] Comment on above: Result [...] CHEST 1995;108:[id number]-246S. Performed By: #### L [id number] ####[facility] ([employer])[address] [place] [address] PROTHROMBIN TIME (PT) IN PPP BY COAGULATION ASSAY 15.3 Seconds High 12.3-14.8 [facility] Comment on above: Performed By: #### L [id number] ####[facility] ([facility])[address] [place] [address] 30on 11-30-2022 30 Normal [facility] 30 Normal [facility] BASIC METABOLIC PANELon 11-12 Anion gap [Moles/Vol] 10 mmol/L Normal 7-20 [facility] Comment on above: Performed By: #### L [id number] ####[facility] ([facility])[address] [place] [address] Calcium [Mass/Vol] 7.1 mg/dL Low 8.6-10.3 [facility] [place] Comment on above: Performed By: #### L [id number] ####[facility] ([facility])[address] [place] [address] Chloride [Moles/Vol] 110 mmol/L High 98-107 [facility] Comment on above: Performed By: #### L [id number] ####[facility] ([facility])[address] [place] [address] CO2 [Moles/Vol] 22 mmol/L Normal 21-31 [facility] Comment on above: Performed By: #### L [id number] ####[facility] ([facility])[address] [place] [address] Creatinine [Mass/Vol] 1.25 mg/dL Normal 0.70-1.30 [facility] Comment on above: Performed By: #### L [id number] ####[facility] ([facility])[address] [place] [address] GLOMERULAR FILTRATION RATE ML/MIN/1.73 SQ M.PREDICTED 61.9 mL/min/1.73m*2 Normal >60.0 [facility] Comment on above: Result Comment: [facility]???s estimated glomerular filtration rate [...] of individuals. Performed By: #### L [id number] ####[facility] ([facility])[address] [place] [address] Glucose [Mass/Vol] 211 mg/dL High 70-100 [facility] [place] Comment on above: Performed By: #### L [id number] ####[facility] ([facility])[address] [place] [address] Potassium [Moles/Vol] 3.6 mmol/L Normal 3.5-5.1 [facility] Comment on above: Performed By: #### L [id number] ####[facility] ([facility])[address] [place] [address] Sodium [Moles/Vol] 138 mmol/L Normal 136-145 [facility] [place] Comment on above: Performed By: #### L [id number] ####[facility] ([facility])[address] [place] [address] Urea nitrogen [Mass/Vol] 17 mg/dL Normal 7-25 [facility] Comment on above: Performed By: #### L [id number] ####[facility] ([facility])[address] [place] [address] UREA NITROGEN/CREATININE (MASS RATIO) IN SER/PLAS 13.6 Normal [facility] Comment on above: Performed By: #### L [id number] ####[facility] ([facility])[address] [place] [address] Anion gap [Moles/Vol] 10 mmol/L Normal 7-20 [facility] Comment on above: Performed By: #### L [id number] ####[facility] ([facility])[address] [place] [address] Calcium [Mass/Vol] 9.5 mg/dL Normal 8.6-10.3 [facility] [place] Comment on above: Performed By: #### L [id number] ####[facility] ([facility])[address] [place] [address] Chloride [Moles/Vol] 102 mmol/L Normal 98-107 [facility] Comment on above: Performed By: #### L [id number] ####[facility] ([facility])[address] [place] [address] CO2 [Moles/Vol] 27 mmol/L Normal 21-31 [facility] Comment on above: Performed By: #### L [id number] ####[facility] ([facility])[address] [facility] [place] [address] Creatinine [Mass/Vol] 1.39 mg/dL High 0.70-1.30 [facility] Comment on above: Performed By: #### L [id number] ####[facility] ([facility])[address] [place] [address] GLOMERULAR FILTRATION RATE ML/MIN/1.73 SQ M.PREDICTED 54.5 mL/min/1.73m*2 Low >60.0 [facility] Comment on above: Result Comment: [facility]???s estimated glomerular filtration rate [...] of individuals. Performed By: #### L [id number] ####[facility] ([facility])[address] [place] [address] Glucose [Mass/Vol] 171 mg/dL High 70-100 [facility] [place] Comment on above: Performed By: #### L [id number] ####[facility] ([facility])[address] [place] [address] Potassium [Moles/Vol] 4.0 mmol/L Normal 3.5-5.1 [facility] Comment on above: Performed By: #### L [id number] ####[facility] ([facility])[address] [place] [address] Sodium [Moles/Vol] 135 mmol/L Low 136-145 [facility] [place] Comment on above: Performed By: #### L [id number] ####[facility] ([facility])[address] [place] [address] Urea nitrogen [Mass/Vol] 20 mg/dL Normal 7-25 [facility] Comment on above: Performed By: #### L [id number] ####[facility] ([facility])[address] [place] [address] UREA NITROGEN/CREATININE (MASS RATIO) IN SER/PLAS 14.4 Normal [facility] Comment on above: Performed By: #### L [id number] ####[facility] ([facility])[address] [place] [address] CBCon 11-30-2022 Erythrocyte distribution width (RBC) [Ratio] 14.2 % Normal 11.5-15.0 [facility] Comment on above: Performed By: #### L [id number] ####[facility] ([facility])[address] [place] [address] ERYTHROCYTE MEAN CORPUSCULAR HEMOGLOBIN CONCENTRATION (G/DL) BY AUTOMATED 33.3 g/dL Normal 32.0-35.0 [facility] Comment on above: Performed By: #### L [id number] ####[facility] ([facility])[address] [place] [address] Hematocrit (Bld) [Volume fraction] 41.7 % Normal 39.0-55.0 [facility] Comment on above: Performed By: #### L [id number] ####[facility] ([facility])[address] [place] [address] Hemoglobin (Bld) [Mass/Vol] 13.9 g/dL Normal 13.0-17.0 [facility] Comment on above: Performed By: #### L [id number] ####[facility] ([facility])[address] [place] [address] MCH (RBC) [Entitic mass] 29.5 pg Normal 27.0-33.0 [facility] Comment on above: Performed By: #### L [id number] ####[facility] ([facility])[address] [place] [address] MCV (RBC) [Entitic vol] 88.5 fL Normal 82.0-98.0 [facility] Comment on above: Performed By: #### L [id number] ####[facility] ([facility])[address] [place] [address] PLATELETS (10*3/UL) IN BLOOD AUTOMATED COUNT 183 10*3/uL Normal 150-400 [facility] Comment on above: Performed By: #### L [id number] ####[facility] ([facility])[address] [place] [address] RBC (Bld) [#/Vol] 4.71 10*6/uL Normal 4.20-5.70 [facility] Comment on above: Performed By: #### L [id number] ####[facility] ([facility])[address] [place] [address] WBC (Bld) [#/Vol] 8.24 10*3/uL Normal 4.00-10.60 [facility] Comment on above: Performed By: #### L [id number] ####[facility] ([facility])[address] [place] [address] CBC WITH AUTO DIFFERENTIALon 11-30-2022 Basophils (Bld) [#/Vol] 0.02 10*3/uL Normal 0.00-0.20 [facility] Comment on above: Performed By: #### L [id number] ####[facility] ([facility])[address] [place] [address] Basophils/100 WBC (Bld) 0.2 % Normal 0.0-1.0 [facility] Comment on above: Performed By: #### L [id number] ####[facility] ([facility])[address] [place] [address] Eosinophils (Bld) [#/Vol] 0.11 10*3/uL Normal 0.00-0.50 [facility] Comment on above: Performed By: #### L [id number] ####[facility] ([facility])[address] [place] [address] Eosinophils/100 WBC (Bld) 1.2 % Normal 0.0-6.0 [facility] Comment on above: Performed By: #### L [id number] ####[facility] ([facility])[address] [place] [address] Erythrocyte distribution width (RBC) [Ratio] 14.5 % Normal 11.5-15.0 [facility] Comment on above: Performed By: #### L [id number] ####[facility] ([facility])[address] [place] [address] ERYTHROCYTE MEAN CORPUSCULAR HEMOGLOBIN CONCENTRATION (G/DL) BY AUTOMATED 33.1 g/dL Normal 32.0-35.0 [facility] Comment on above: Performed By: #### L [id number] ####[facility] ([facility])[address] [place] [address] Hematocrit (Bld) [Volume fraction] 37.2 % Low 39.0-55.0 [facility] Comment on above: Performed By: #### L [id number] ####[facility] ([facility])[address] [place] [address] Hemoglobin (Bld) [Mass/Vol] 12.3 g/dL Low 13.0-17.0 [facility] Comment on above: Performed By: #### L [id number] ####[facility] ([facility])[address] [place] [address] Immature granulocytes (Bld) [#/Vol] 0.06 10*3/uL Normal 0.00-0.20 [facility] Comment on above: Performed By: #### L [id number] ####[facility] ([facility])[address] [place] [address] Immature granulocytes/100 WBC (Bld) 0.6 % Normal 0.0-1.0 [facility] Comment on above: Performed By: #### L [id number] ####[facility] ([facility])[address] [place] [address] Lymphocytes (Bld) [#/Vol] 0.97 10*3/uL Low 1.20-4.00 [facility] Comment on above: Performed By: #### L [id number] ####[facility] ([facility])[address] [place] [address] Lymphocytes/100 WBC (Bld) 10.3 % Low 20.0-45.0 [facility] Comment on above: Performed By: #### L [id number] ####[facility] ([facility])[address] [place] [address] MCH (RBC) [Entitic mass] 29.5 pg Normal 27.0-33.0 [facility] Comment on above: Performed By: #### L [id number] ####[facility] ([facility])[address] [place] [address] MCV (RBC) [Entitic vol] 89.2 fL Normal 82.0-98.0 [facility] Comment on above: Performed By: #### L [id number] ####[facility] ([facility])[address] [place] [address] Monocytes (Bld) [#/Vol] 0.78 10*3/uL Normal 0.10-1.00 [facility] Comment on above: Performed By: #### L [id number] ####[facility] ([facility])[address] [place] [address] Monocytes/100 WBC (Bld) 8.3 % Normal 5.0-12.0 [facility] Comment on above: Performed By: #### L [id number] ####[facility] ([facility])[address] [address] Neutrophils (Bld) [#/Vol] 7.48 10*3/uL Normal 1.60-7.60 [facility] Comment on above: Performed By: #### L [id number] ####[facility] ([facility])[address] [address] Neutrophils/100 WBC (Bld) 79.4 % High 40.0-72.0 [facility] Comment on above: Performed By: #### L [id number] ####[facility] ([facility])[address] [address] NRBC (PER 100 WBCS) BY AUTOMATED COUNT 0.0 % Normal 0 [facility] Comment on above: Performed By: #### L [id number] ####[facility] ([facility])[address] [address] PLATELETS (10*3/UL) IN BLOOD AUTOMATED COUNT 172 10*3/uL Normal 150-400 [facility] Comment on above: Performed By: #### L [id number] ####[facility] ([facility])[address] [address] RBC (Bld) [#/Vol] 4.17 10*6/uL Low 4.20-5.70 [facility] Comment on above: Performed By: #### L [id number] ####[facility] ([facility])[address] [place], [place] [address] WBC (Bld) [#/Vol] 9.42 10*3/uL Normal 4.00-10.60 [facility] Comment on above: Performed By: #### L [id number] ####[facility] ([facility])[address] [place] [address] CTA ABDOMEN PELVIS W AND/OR WO IV CONTRASTon 11-30-2022 CTA ABDOMEN PELVIS W AND/OR WO IV CONTRAST Normal [facility] CTA CHEST W AND/OR WO IV CON TRASTon 11-30-2022 CTA CHEST W AND/OR WO IV CONTRAST Normal [facility] DSon 11-30-2022 DS This report has been cancelled. Normal [facility] NURSNOTEon 11-30-2022 NURSNOTE Normal [facility] NURSNOTE Normal [facility] POCT GLUCOSE METER UNSOLICIT ED RESULTSon 11-30-2022 Glucose [Mass/Vol] 228 mg/dL High 70-105 [facility] [place] Comment on above: Order Comment: Waive d Testing in the ED is performed under the ED CLIA certificate #[id number]. Result Comment: [email or web address] Performed By: #### L [id number] ####[facility] ([employer])[address] [place] [address] Glucose [Mass/Vol] 228 mg/dL High 70-105 [facility] [place] Comment on above: Order Comment: Waive d Testing in the ED is performed under the ED CLIA certificate #[id number]. Result Comment: [email or web address] Performed By: #### L [id number] ####[facility] ([facility])[address] [place] [address] Glucose [Mass/Vol] 219 mg/dL High 70-105 [facility] Comment on above: Order Comment: Waive d Testing in the ED is performed under the ED CLIA certificate #[id number]. Result Comment: [email or web address] Performed By: #### L [id number] ####[facility] ([facility])[address] [place] [address] Glucose [Mass/Vol] 186 mg/dL High 70-105 [facility] Comment on above: Order Comment: Waive d Testing in the ED is performed under the ED CLIA certificate #[id number]. Result Comment: [email or web address] Performed By: #### L [id number] ####[facility] ([facility])[address] [place] [address] Glucose [Mass/Vol] 217 mg/dL High 70-105 [facility] Comment on above: Order Comment: Waive d Testing in the ED is performed under the ED CLIA certificate #[id number]. Result Comment: [email or web address] Performed By: #### L [id number] ####[facility] ([facility])[address] [facility] [place] [address] Glucose [Mass/Vol] 175 mg/dL High 70-105 [facility] Comment on above: Order Comment: Waive d Testing in the ED is performed under the ED CLIA certificate #[id number]. Result Comment: [email or web address] Performed By: #### L [id number] ####[facility] ([facility])[address] [place] [address] TROPONIN Ion 11-30-2022 Troponin I.cardiac [Mass/Vol] 0.05 ng/mL High 0.00-0.04 [facility] Comment on above: Performed By: #### L [id number] ####[facility] ([facility])[address] [place] [address] 30on 11-29-2022 30 Normal [facility] 30 Normal [facility] 30 Normal [facility] ANESon 11-29-2022 ANES Normal [facility] ANTI-XA (HEPARIN LEVEL)on HEPARIN UNFRACTIONATED (U/ML) IN PPP BY CHROMOGENIC METHOD 0.42 IU/mL Normal 0.3-0.7 [facility] Comment on above: Result Comment: [place] roxaban and Apixaban will interfere with the anti Xa assay used to monitor UFH and LMWH. Performed By: #### L [id number] ####[facility] ([facility])[address] [place] [address] HEPARIN UNFRACTIONATED (U/ML) IN PPP BY CHROMOGENIC METHOD 0.74 IU/mL High 0.3-0.7 [facility] Comment on above: Result Comment: [place] roxaban and Apixaban will interfere with the anti Xa assay used to monitor UFH and LMWH. Performed By: #### L [id number] ####[facility] ([facility])[address] [place] [address] BASIC METABOLIC PANELon 11-11 Anion gap [Moles/Vol] 9 mmol/L Normal 7-20 [facility] Comment on above: Performed By: #### L [id number] ####[facility] (BEAKER)[address] [place] [address] Calcium [Mass/Vol] 9.5 mg/dL Normal 8.6-10.3 [facility] Comment on above: Performed By: #### L [id number] ####[facility] (BEAKER)[address] [place] [address] Chloride [Moles/Vol] 103 mmol/L Normal 98-107 [facility] Comment on above: Performed By: #### L [id number] ####[facility] (BEAKER)[address] [place] [address] CO2 [Moles/Vol] 28 mmol/L Normal 21-31 [facility] Comment on above: Performed By: #### L [id number] ####[facility] (BEAKER)[address] [place] [address] Creatinine [Mass/Vol] 1.44 mg/dL High 0.70-1.30 [facility] Comment on above: Performed By: #### L [id number] ####[facility] ([facility])[address] [place] [address] GLOMERULAR FILTRATION RATE ML/MIN/1.73 SQ M.PREDICTED 52.3 mL/min/1.73m*2 Low >60.0 [facility] Comment on above: Result Comment: [facility]???s estimated glomerular filtration rate [...] of individuals. Performed By: #### L [id number] ####[facility] (BEAKER)[address] [place] [address] Glucose [Mass/Vol] 178 mg/dL High 70-100 [facility] Comment on above: Performed By: #### L [id number] ####[facility] (BEAKER)[address] [place] [address] Potassium [Moles/Vol] 4.1 mmol/L Normal 3.5-5.1 [facility] Comment on above: Performed By: #### L [id number] ####[facility] (BEAKER)[address] [place] [address] Sodium [Moles/Vol] 136 mmol/L Normal 136-145 [facility] Comment on above: Performed By: #### L [id number] ####[facility] ([facility])[address] [place] [address] Urea nitrogen [Mass/Vol] 17 mg/dL Normal 7-25 [facility] Comment on above: Performed By: #### L [id number] ####[facility] ([facility])[address] [place] [address] UREA NITROGEN/CREATININE (MASS RATIO) IN SER/PLAS 11.8 Normal [facility] Comment on above: Performed By: #### L [id number] ####[facility] (BEAKER)[address] [place] [address] CBCon 11-29-2022 Erythrocyte distribution width (RBC) [Ratio] 14.4 % Normal 11.5-15.0 [facility] Comment on above: Performed By: #### L [id number] ####[facility] ([facility])[address] [place] [address] ERYTHROCYTE MEAN CORPUSCULAR HEMOGLOBIN CONCENTRATION (G/DL) BY AUTOMATED 34.0 g/dL Normal 32.0-35.0 [facility] Comment on above: Performed By: #### L [id number] ####[facility] ([facility])[address] [place] [address] Hematocrit (Bld) [Volume fraction] 41.5 % Normal 39.0-55.0 [facility] Comment on above: Performed By: #### L [id number] ####[facility] ([facility])[address] [place] [address] Hemoglobin (Bld) [Mass/Vol] 14.1 g/dL Normal 13.0-17.0 [facility] Comment on above: Performed By: #### L [id number] ####[facility] ([facility])[address] [place] [address] MCH (RBC) [Entitic mass] 29.6 pg Normal 27.0-33.0 [facility] Comment on above: Performed By: #### L [id number] ####[facility] ([facility])[address] [place] [address] MCV (RBC) [Entitic vol] 87.2 fL Normal 82.0-98.0 [facility] Comment on above: Performed By: #### L [id number] ####[facility] ([facility])[address] [place] [address] PLATELETS (10*3/UL) IN BLOOD AUTOMATED COUNT 180 10*3/uL Normal 150-400 [facility] Comment on above: Performed By: #### L [id number] ####[facility] ([facility])[address] [place] [address] RBC (Bld) [#/Vol] 4.76 10*6/uL Normal 4.20-5.70 [facility] Comment on above: Performed By: #### L [id number] ####[facility] ([facility])[address] [place] [address] WBC (Bld) [#/Vol] 6.10 10*3/uL Normal 4.00-10.60 [facility] Comment on above: Performed By: #### L [id number] ####[facility] ([facility])[address] [place] [address] CONSULTon 11-29-2022 CONSULT [facility] HPon 11-29-2022 HP H&P reviewed. The patient was examined and there are no changes to the H&P. [facility] POCT GLUCOSE METER UNSOLICIT ED RESULTSon 11-29-2022 Glucose [Mass/Vol] 168 mg/dL High 70-105 [facility] Comment on above: Order Comment: Waive d Testing in the ED is performed under the ED CLIA certificate #[id number]. Result Comment: [email or web address] Performed By: #### L [id number] ####[facility] ([facility]AKER)[address] [place] [address] Glucose [Mass/Vol] 122 mg/dL High 70-105 [facility] Comment on above: Order Comment: Waive d Testing in the ED is performed under the ED CLIA certificate #[id number]. Result Comment: [email or web address] Performed By: #### L [id number] ####[facility] ([employer])[address] [place] [address] Glucose [Mass/Vol] 144 mg/dL High 70-105 [facility] Comment on above: Order Comment: Waive d Testing in the ED is performed under the ED CLIA certificate #[id number]. Result Comment: [email or web address] Performed By: #### L [id number] ####[facility] ([employer])[address] [place] [address] Glucose [Mass/Vol] 157 mg/dL High 70-105 [facility] Comment on above: Order Comment: Waive d Testing in the ED is performed under the ED CLIA certificate #[id number]. Result Comment: [email or web address] Performed By: #### L [id number] ####[facility] (BEAKER)[address] [place] [address] 30on 11-28-2022 30 [facility] 30 [facility] 30 [facility] ANTI-XA (HEPARIN LEVEL)on HEPARIN UNFRACTIONATED (U/ML) IN PPP BY CHROMOGENIC METHOD 0.47 IU/mL Normal 0.3-0.7 [facility] Comment on above: Result Comment: [place] roxaban and Apixaban will interfere with the anti Xa assay used to monitor UFH and LMWH. Performed By: #### L [id number] ####[facility] ([facility])[address] [place] [address] HEPARIN UNFRACTIONATED (U/ML) IN PPP BY CHROMOGENIC METHOD 0.40 IU/mL Normal 0.3-0.7 [facility] Comment on above: Result Comment: [place] roxaban and Apixaban will interfere with the anti Xa assay used to monitor UFH and LMWH. Performed By: #### L [id number] ####[facility] ([facility])[address] [place] [address] HEPARIN UNFRACTIONATED (U/ML) IN PPP BY CHROMOGENIC METHOD 0.23 IU/mL Low 0.3-0.7 [facility] Comment on above: Result Comment: [place] roxaban and Apixaban will interfere with the anti Xa assay used to monitor UFH and LMWH. Performed By: #### L [id number] ####[facility] ([facility])[address] [place] [address] HEPARIN UNFRACTIONATED (U/ML) IN PPP BY CHROMOGENIC METHOD 0.10 IU/mL Invalid Interpretation Code 0.3-0.7 [facility] Comment on above: Result Comment: [place] roxaban and Apixaban will interfere with the anti Xa assay used to monitor UFH and LMWH. Performed By: #### L [id number] ####[facility] ([facility])[address] [place] [place] [facility] [place] [address] BASIC METABOLIC PANELon - Anion gap [Moles/Vol] 10 mmol/L Normal 7-20 [facility] Comment on above: Performed By: #### L [id number] ####[facility] (BEAKER)[address] [facility] [place] [address] Calcium [Mass/Vol] 8.9 mg/dL Normal 8.6-10.3 [facility] Comment on above: Performed By: #### L [id number] ####[facility] (BEAKER)[address] [place] [address] Chloride [Moles/Vol] 105 mmol/L Normal 98-107 [facility] Comment on above: Performed By: #### L [id number] ####[facility] (BEAKER)[address] [place] [address] CO2 [Moles/Vol] 25 mmol/L Normal 21-31 [facility] Comment on above: Performed By: #### L [id number] ####[facility] ([facility])[address] [place] [address] Creatinine [Mass/Vol] 1.22 mg/dL Normal 0.70-1.30 [facility] Comment on above: Performed By: #### L [id number] ####[facility] ([facility])[address] [place] [address] GLOMERULAR FILTRATION RATE ML/MIN/1.73 SQ M.PREDICTED 63.8 mL/min/1.73m*2 Normal >60.0 [facility] Comment on above: Result Comment: [facility]???s estimated glomerular filtration rate [...] of individuals. Performed By: #### L [id number] ####[facility] ([facility])[address] [place] [address] Glucose [Mass/Vol] 153 mg/dL High 70-100 [facility] Comment on above: Performed By: #### L [id number] ####[facility] (BEAKER)[address] [place] [address] Potassium [Moles/Vol] 3.8 mmol/L Normal 3.5-5.1 [facility] Comment on above: Performed By: #### L [id number] ####[facility] ([facility])[address] [place] [address] Sodium [Moles/Vol] 136 mmol/L Normal 136-145 [facility] Comment on above: Performed By: #### L [id number] ####[facility] ([facility])[address] [place] [address] Urea nitrogen [Mass/Vol] 14 mg/dL Normal 7-25 [facility] Comment on above: Performed By: #### L [id number] ####[facility] ([facility])[address] [place] [address] UREA NITROGEN/CREATININE (MASS RATIO) IN SER/PLAS 11.5 Normal [facility] Comment on above: Performed By: #### L [id number] ####[facility] ([facility])[address] [place] [address] CBCon 11-28-2022 Erythrocyte distribution width (RBC) [Ratio] 14.3 % Normal 11.5-15.0 [facility] Comment on above: Performed By: #### L [id number] ####[facility] ([facility])[address] [place], [place] [address] ERYTHROCYTE MEAN CORPUSCULAR HEMOGLOBIN CONCENTRATION (G/DL) BY AUTOMATED 33.2 g/dL Normal 32.0-35.0 [facility] Comment on above: Performed By: #### L [id number] ####[facility] ([facility])[address] [place] [address] Hematocrit (Bld) [Volume fraction] 40.4 % Normal 39.0-55.0 [facility] Comment on above: Performed By: #### L [id number] ####[facility] (BEAKER)[address] [place] [address] Hemoglobin (Bld) [Mass/Vol] 13.4 g/dL Normal 13.0-17.0 [facility] Comment on above: Performed By: #### L [id number] ####[facility] ([facility])[address] [place] [address] MCH (RBC) [Entitic mass] 29.3 pg Normal 27.0-33.0 [facility] Comment on above: Performed By: #### L [id number] ####[facility] ([facility])[address] [place] [address] MCV (RBC) [Entitic vol] 88.2 fL Normal 82.0-98.0 [facility] Comment on above: Performed By: #### L [id number] ####[facility] ([facility])[address] [place] [address] PLATELETS (10*3/UL) IN BLOOD AUTOMATED COUNT 194 10*3/uL Normal 150-400 [facility] Comment on above: Performed By: #### L [id number] ####[facility] ([facility])[address] [place] [address] RBC (Bld) [#/Vol] 4.58 10*6/uL Normal 4.20-5.70 [facility] Comment on above: Performed By: #### L [id number] ####[facility] ([facility])[place] [address] WBC (Bld) [#/Vol] 7.10 10*3/uL Normal 4.00-10.60 [facility] Comment on above: Performed By: #### L [id number] ####[facility] ([facility])[address] [place] [address] CONSULTon 11-28-2022 CONSULT Normal [facility] MAGNESIUMon 11-28-2022 Magnesium [Mass/Vol] 1.7 mg/dL Low 1.9-2.7 [facility] Comment on above: Performed By: #### L [id number] ####[facility] ([facility])[address] [place] [address] NURSNOTEon 11-28-2022 NURSNOTE Normal [facility] PHOSPHORUSon 11-28-2022 Magnesium [Mass/Vol] 3.8 mg/dL Normal 2.5-5.0 [facility] Comment on above: Performed By: #### L [id number] ####[facility] ([facility])[address] [place] [address] POCT GLUCOSE METER UNSOLICIT ED RESULTSon 11-28-2022 Glucose [Mass/Vol] 202 mg/dL High 70-105 [facility] Comment on above: Order Comment: Waive d Testing in the ED is performed under the ED CLIA certificate #[id number]. Result Comment: [email or web address] Performed By: #### L [id number] ####[facility] ([facility])[address] [place] [address] Glucose [Mass/Vol] 110 mg/dL High 70-105 [facility] Comment on above: Order Comment: Waive d Testing in the ED is performed under the ED CLIA certificate #[id number]. Result Comment: [email or web address] Performed By: #### L [id number] ####[facility] ([facility])[address] [place] [address] Glucose [Mass/Vol] 190 mg/dL High 70-105 [facility] Comment on above: Order Comment: Waive d Testing in the ED is performed under the ED CLIA certificate #[id number]. Result Comment: [email or web address] Performed By: #### L [id number] ####[facility] ([facility])[address] [place] [address] Glucose [Mass/Vol] 147 mg/dL High 70-105 [facility] Comment on above: Order Comment: Waive d Testing in the ED is performed under the ED CLIA certificate #[id number]. Result Comment: [email or web address] Performed By: #### L [id number] ####[facility] ([facility])[address] [place] [address] 30on 11-27-2022 30 [facility] 30 Normal [facility] 30 Normal [facility] ANESon 11-27-2022 ANES Normal [facility] ANTI-XA (HEPARIN LEVEL)on HEPARIN UNFRACTIONATED (U/ML) IN PPP BY CHROMOGENIC METHOD 0.49 IU/mL Normal 0.3-0.7 [facility] Comment on above: Result Comment: [place] roxaban and Apixaban will interfere with the anti Xa assay used to monitor UFH and LMWH. Performed By: #### L [id number] ####[facility] ([facility])[address] [place] [address] HEPARIN UNFRACTIONATED (U/ML) IN PPP BY CHROMOGENIC METHOD 0.50 IU/mL Normal 0.3-0.7 [facility] Comment on above: Result Comment: [place] roxaban and Apixaban will interfere with the anti Xa assay used to monitor UFH and LMWH. Performed By: #### L [id number] ####[facility] ([facility])[address] [place] [address] BASIC METABOLIC PANELon 11-11 Anion gap [Moles/Vol] 9 mmol/L Normal 7-20 [facility] Comment on above: Performed By: #### L [id number] ####[facility] ([facility])[address] [place] [address] Calcium [Mass/Vol] 8.9 mg/dL Normal 8.6-10.3 [facility] Comment on above: Performed By: #### L [id number] ####[facility] ([facility])[address] [place] [address] Chloride [Moles/Vol] 104 mmol/L Normal 98-107 [facility] Comment on above: Performed By: #### L [id number] ####[facility] ([facility])[address] [place] [address] CO2 [Moles/Vol] 25 mmol/L Normal 21-31 [facility] Comment on above: Performed By: #### L [id number] ####[facility] ([facility])[address] [place] [address] Creatinine [Mass/Vol] 1.34 mg/dL High 0.70-1.30 [facility] Comment on above: Performed By: #### L [id number] ####[facility] ([facility])[address] [place] [address] GLOMERULAR FILTRATION RATE ML/MIN/1.73 SQ M.PREDICTED 57.0 mL/min/1.73m*2 Low >60.0 [facility] Comment on above: Result Comment: [facility]???s estimated glomerular filtration rate [...] of individuals. Performed By: #### L [id number] ####[facility] ([facility])[address] [place] [address] Glucose [Mass/Vol] 210 mg/dL High 70-100 [facility] Comment on above: Performed By: #### L [id number] ####[facility] ([facility])[address] [place] [address] Potassium [Moles/Vol] 4.1 mmol/L Normal 3.5-5.1 [facility] Comment on above: Performed By: #### L [id number] ####[facility] ([facility])[address] [place] [address] Sodium [Moles/Vol] 134 mmol/L Low 136-145 [facility] Comment on above: Performed By: #### L [id number] ####[facility] ([facility])[address] [facility] [place] [address] Urea nitrogen [Mass/Vol] 18 mg/dL Normal 7-25 [facility] Comment on above: Performed By: #### L [id number] ####[facility] ([facility])[address] [place] [address] UREA NITROGEN/CREATININE (MASS RATIO) IN SER/PLAS 13.4 Normal [facility] Comment on above: Performed By: #### L [id number] ####[facility] ([facility])[address] [place] [address] CBCon 11-27-2022 Erythrocyte distribution width (RBC) [Ratio] 14.2 % Normal 11.5-15.0 [facility] Comment on above: Performed By: #### L [id number] ####[facility] ([facility])[address] [place] [address] ERYTHROCYTE MEAN CORPUSCULAR HEMOGLOBIN CONCENTRATION (G/DL) BY AUTOMATED 33.3 g/dL Normal 32.0-35.0 [facility] Comment on above: Performed By: #### L [id number] ####[facility] ([facility])[address] [place] [address] Hematocrit (Bld) [Volume fraction] 41.5 % Normal 39.0-55.0 [facility] Comment on above: Performed By: #### L [id number] ####[facility] ([facility])[address] [place] [address] Hemoglobin (Bld) [Mass/Vol] 13.8 g/dL Normal 13.0-17.0 [facility] Comment on above: Performed By: #### L [id number] ####[facility] ([facility])[address] [place] [address] MCH (RBC) [Entitic mass] 28.9 pg Normal 27.0-33.0 [facility] Comment on above: Performed By: #### L [id number] ####[facility] ([facility])[address] [place] [address] MCV (RBC) [Entitic vol] 86.8 fL Normal 82.0-98.0 [facility] Comment on above: Performed By: #### L [id number] ####[facility] ([facility])[address] [place] [address] PLATELETS (10*3/UL) IN BLOOD AUTOMATED COUNT 187 10*3/uL Normal 150-400 [facility] Comment on above: Performed By: #### L [id number] ####[facility] ([facility])[address] [place] [address] RBC (Bld) [#/Vol] 4.78 10*6/uL Normal 4.20-5.70 [facility] Comment on above: Performed By: #### L [id number] ####[facility] ([facility])[address] [place] [address] WBC (Bld) [#/Vol] 6.16 10*3/uL Normal 4.00-10.60 [facility] Comment on above: Performed By: #### L [id number] ####[facility] ([facility])[address] [place] [address] HPon 11-27-2022 HP Normal [facility] MAGNESIUMon 11-27-2022 Magnesium [Mass/Vol] 1.8 mg/dL Low 1.9-2.7 [facility] Comment on above: Performed By: #### L [id number] ####[facility] ([facility])[address] [place] [address] PHOSPHORUSon 11-27-2022 Magnesium [Mass/Vol] 3.4 mg/dL Normal 2.5-5.0 [facility] Comment on above: Performed By: #### L [id number] ####[facility] ([facility])[address] [place] [address] POCT GLUCOSE METER UNSOLICIT ED RESULTSon 11-27-2022 Glucose [Mass/Vol] 393 mg/dL High 70-105 [facility] Comment on above: Order Comment: Waive d Testing in the ED is performed under the ED CLIA certificate #[id number]. Result Comment: crystal [email or web address] Performed By: #### L [id number] ####[facility] ([facility])[address] [place] [address] Glucose [Mass/Vol] 142 mg/dL High 70-105 [facility] Comment on above: Order Comment: Waive d Testing in the ED is performed under the ED CLIA certificate #[id number]. Result Comment: lukasz yanez Performed By: #### L [id number] ####[facility] ([facility])[address] [facility] [place] [address] Glucose [Mass/Vol] 147 mg/dL High 70-105 [facility] Comment on above: Order Comment: Waive d Testing in the ED is performed under the ED CLIA certificate #[id number]. Result Comment: [place] Performed By: #### L [id number] ####[facility] ([facility])[address] [facility] [place] [address] Glucose [Mass/Vol] 163 mg/dL High 70-105 [facility] Comment on above: Order Comment: Waive d Testing in the ED is performed under the ED CLIA certificate #[id number]. Result Comment: [place] Performed By: #### L [id number] ####[facility] ([facility])[address] [facility] [place] [address] 30on 11-26-2022 30 Normal [facility] 30 Normal [facility] ANTI-XA (HEPARIN LEVEL)on HEPARIN UNFRACTIONATED (U/ML) IN PPP BY CHROMOGENIC METHOD 0.57 IU/mL Normal 0.3-0.7 [facility] Comment on above: Result Comment: [place] roxaban and Apixaban will interfere with the anti Xa assay used to monitor UFH and LMWH. Performed By: #### L [id number] ####[facility] ([facility] [facility] [place] [address] HEPARIN UNFRACTIONATED (U/ML) IN PPP BY CHROMOGENIC METHOD 0.96 IU/mL Critically high 0.3-0.7 [facility] Comment on above: Result Comment: [place] roxaban and Apixaban will interfere with the anti Xa assay used to monitor UFH and LMWH. Performed By: #### L [id number] ####[facility] ([facility])[address] [place] [address] HEPARIN UNFRACTIONATED (U/ML) IN PPP BY CHROMOGENIC METHOD 0.68 IU/mL Normal 0.3-0.7 [facility] Comment on above: Order Comment: Check anti-Xa level every 6 hours while on heparin infusion, or per protocol. Result Comment: [place] roxaban and Apixaban will interfere with the anti Xa assay used to monitor UFH and LMWH. Performed By: #### L [id number] ####[facility] ([facility])[address] [place] [address] HEPARIN UNFRACTIONATED (U/ML) IN PPP BY CHROMOGENIC METHOD 0.66 IU/mL Normal 0.3-0.7 [facility] Comment on above: Order Comment: Check anti-Xa level every 6 hours while on heparin infusion, or per protocol. Result Comment: [place] roxaban and Apixaban will interfere with the anti Xa assay used to monitor UFH and LMWH. Performed By: #### L [id number] ####[facility] ([facility])[address] [place] [address] BASIC METABOLIC PANELon 10- Anion gap [Moles/Vol] 8 mmol/L Normal 7-20 [facility] Comment on above: Performed By: #### L [id number] ####[facility] ([facility])[address] [place] [address] Calcium [Mass/Vol] 8.9 mg/dL Normal 8.6-10.3 [facility] Comment on above: Performed By: #### L [id number] ####[facility] ([facility])[address] [place] [address] Chloride [Moles/Vol] 106 mmol/L Normal 98-107 [facility] Comment on above: Performed By: #### L [id number] ####[facility] ([facility])[address] [place] [address] CO2 [Moles/Vol] 26 mmol/L Normal 21-31 [facility] Comment on above: Performed By: #### L [id number] ####[facility] ([facility])[address] [place] [address] Creatinine [Mass/Vol] 1.30 mg/dL Normal 0.70-1.30 [facility] Comment on above: Performed By: #### L [id number] ####[facility] ([facility])[address] [place] [address] GLOMERULAR FILTRATION RATE ML/MIN/1.73 SQ M.PREDICTED 59.1 mL/min/1.73m*2 Low >60.0 [facility] Comment on above: Result Comment: [facility]???s estimated glomerular filtration rate [...] of individuals. Performed By: #### L [id number] ####[facility] ([facility])[address] [place] [address] Glucose [Mass/Vol] 196 mg/dL High 70-100 [facility] Comment on above: Performed By: #### L [id number] ####[facility] ([facility])[address] [place] [address] Potassium [Moles/Vol] 4.2 mmol/L Normal 3.5-5.1 [facility] Comment on above: Performed By: #### L [id number] ####[facility] ([facility])[address] [place] [address] Sodium [Moles/Vol] 136 mmol/L Normal 136-145 [facility] Comment on above: Performed By: #### L [id number] ####[facility] ([facility])[address] [place] [address] Urea nitrogen [Mass/Vol] 17 mg/dL Normal 7-25 [facility] Comment on above: Performed By: #### L [id number] ####[facility] ([facility])[address] [place] [address] UREA NITROGEN/CREATININE (MASS RATIO) IN SER/PLAS 13.1 Normal [facility] Comment on above: Performed By: #### L [id number] ####[facility] ([facility])[address] [place] [address] CBC WITH AUTO DIFFERENTIALon 11-26-2022 Basophils (Bld) [#/Vol] 0.03 10*3/uL Normal 0.00-0.20 [facility] Comment on above: Performed By: #### L [id number] ####[facility] ([facility])[address] [place] [address] Basophils/100 WBC (Bld) 0.4 % Normal 0.0-1.0 [facility] Comment on above: Performed By: #### L [id number] ####[facility] ([facility])[address] [place] [address] Eosinophils (Bld) [#/Vol] 0.21 10*3/uL Normal 0.00-0.50 [facility] Comment on above: Performed By: #### L [id number] ####[facility] ([facility])[address] [place] [address] Eosinophils/100 WBC (Bld) 3.1 % Normal 0.0-6.0 [facility] Comment on above: Performed By: #### L [id number] ####[facility] ([facility])[address] [place] [address] Erythrocyte distribution width (RBC) [Ratio] 14.3 % Normal 11.5-15.0 [facility] Comment on above: Performed By: #### L [id number] ####[facility] ([facility])[address] [place] [address] ERYTHROCYTE MEAN CORPUSCULAR HEMOGLOBIN CONCENTRATION (G/DL) BY AUTOMATED 33.4 g/dL Normal 32.0-35.0 [facility] Comment on above: Performed By: #### L [id number] ####[facility] ([facility])[address] [place] [address] Hematocrit (Bld) [Volume fraction] 42.5 % Normal 39.0-55.0 [facility] Comment on above: Performed By: #### L [id number] ####[facility] ([facility])[address] [place] [address] Hemoglobin (Bld) [Mass/Vol] 14.2 g/dL Normal 13.0-17.0 [facility] Comment on above: Performed By: #### L [id number] ####[facility] ([facility])[address] [place] [address] Immature granulocytes (Bld) [#/Vol] 0.03 10*3/uL Normal 0.00-0.20 [facility] Comment on above: Performed By: #### L [id number] ####[facility] ([facility])[address] [place] [address] Immature granulocytes/100 WBC (Bld) 0.4 % Normal 0.0-1.0 [facility] Comment on above: Performed By: #### L [id number] ####[facility] ([facility])[address] [place] [address] Lymphocytes (Bld) [#/Vol] 1.09 10*3/uL Low 1.20-4.00 [facility] Comment on above: Performed By: #### L [id number] ####[facility] ([facility])[address] [place] [address] Lymphocytes/100 WBC (Bld) 16.2 % Low 20.0-45.0 [facility] Comment on above: Performed By: #### L [id number] ####[facility] ([facility])[address] [place] [address] MCH (RBC) [Entitic mass] 29.1 pg Normal 27.0-33.0 [facility] Comment on above: Performed By: #### L [id number] ####[facility] ([facility])[address] [place] [address] MCV (RBC) [Entitic vol] 87.1 fL Normal 82.0-98.0 [facility] Comment on above: Performed By: #### L [id number] ####[facility] ([facility])[address] [place] [address] Monocytes (Bld) [#/Vol] 0.46 10*3/uL Normal 0.10-1.00 [facility] Comment on above: Performed By: #### L [id number] ####[facility] ([facility])[address] [place] [address] Monocytes/100 WBC (Bld) 6.8 % Normal 5.0-12.0 [facility] Comment on above: Performed By: #### L [id number] ####[facility] ([facility])[address] [place] [address] Neutrophils (Bld) [#/Vol] 4.90 10*3/uL Normal 1.60-7.60 [facility] Comment on above: Performed By: #### L [id number] ####[facility] ([facility])[address] [place] [address] Neutrophils/100 WBC (Bld) 73.1 % High 40.0-72.0 [facility] Comment on above: Performed By: #### L [id number] ####[facility] ([facility])[address] [place] [address] NRBC (PER 100 WBCS) BY AUTOMATED COUNT 0.0 % Normal 0 [facility] Comment on above: Performed By: #### L [id number] ####[facility] ([facility])[address] [place] [address] PLATELETS (10*3/UL) IN BLOOD AUTOMATED COUNT 201 10*3/uL Normal 150-400 [facility] Comment on above: Performed By: #### L [id number] ####[facility] ([facility])[address] [place] [address] RBC (Bld) [#/Vol] 4.88 10*6/uL Normal 4.20-5.70 [facility] Comment on above: Performed By: #### L [id number] ####[facility] ([facility])[address] [place] [address] WBC (Bld) [#/Vol] 6.72 10*3/uL Normal 4.00-10.60 [facility] Comment on above: Performed By: #### L [id number] ####[facility] ([facility])[address] [place] [address] MAGNESIUMon 11-26-2022 Magnesium [Mass/Vol] 1.7 mg/dL Low 1.9-2.7 [facility] Comment on above: Performed By: #### L [id number] ####[facility] ([facility])[address] [place] [address] NURSNOTEon 11-26-2022 NURSNOTE Normal [facility] PHOSPHORUSon 11-26-2022 Magnesium [Mass/Vol] 3.0 mg/dL Normal 2.5-5.0 [facility] Comment on above: Performed By: #### L [id number] ####[facility] ([facility])[address] [place] [address] POCT GLUCOSE METER UNSOLICIT ED RESULTSon 11-26-2022 Glucose [Mass/Vol] 188 mg/dL High 70-105 [facility] Comment on above: Order Comment: Waive d Testing in the ED is performed under the ED CLIA certificate #[id number]. Result Comment: [email or web address] Performed By: #### L [id number] ####[facility] ([facility])[address] [place] [address] Glucose [Mass/Vol] 142 mg/dL High 70-105 [facility] Comment on above: Order Comment: Waive d Testing in the ED is performed under the ED CLIA certificate #[id number]. Result Comment: [email or web address] Performed By: #### L [id number] ####[facility] ([facility])[address] [place] [address] Glucose [Mass/Vol] 201 mg/dL High 70-105 [facility] Comment on above: Order Comment: Waive d Testing in the ED is performed under the ED CLIA certificate #[id number]. Result Comment: [email or web address] Performed By: #### L [id number] ####[facility] ([facility])[address] [facility] [place] [address] Glucose [Mass/Vol] 159 mg/dL High 70-105 [facility] Comment on above: Order Comment: Waive d Testing in the ED is performed under the ED CLIA certificate #[id number]. Result Comment: [email or web address] Performed By: #### L [id number] ####[facility] ([facility])[address] [place] [address] TROPONIN Ion 11-26-2022 Troponin I.cardiac [Mass/Vol] 0.02 ng/mL Normal 0.00-0.04 [facility] Comment on above: Performed By: #### L [id number] ####[facility] ([facility])[address] [facility] [place] [address] 30on 11-25-2022 30 Normal [facility] ANTI-XA (HEPARIN LEVEL)on HEPARIN UNFRACTIONATED (U/ML) IN PPP BY CHROMOGENIC METHOD >1.00 Critically high 0.3-0.7 [facility] Comment on above: Order Comment: Check anti-Xa level every 6 hours while on heparin infusion, or per protocol. Result Comment: [place] roxaban and Apixaban will interfere with the anti Xa assay used to monitor UFH and LMWH. Performed By: #### L [id number] ####[facility] ([facility])[address] [facility] [place] [address] APTTon 11-25-2022 ACTIVATED PARTIAL THROMBOPLASTIN TIME IN PPP BY COAGULATION ASSAY 31.6 Seconds Normal 25.0-35.0 [facility] Comment on above: Order Comment: Basel ine aPTT before initiating heparin infusion. Result Comment: Clin ical significance of the APTT is questionable in the presence of heparin. Performed By: #### L [id number] ####[facility] ([facility])[address] [place] [address] ACTIVATED PARTIAL THROMBOPLASTIN TIME IN PPP BY COAGULATION ASSAY 32.7 Seconds Normal 25.0-35.0 [facility] Comment on above: Result Comment: Clin ical significance of the APTT is questionable in the presence of heparin. Performed By: #### L [id number] ####[facility] ([facility])[address] [place] [address] BASIC METABOLIC PANEL 11-11 Anion gap [Moles/Vol] 11 mmol/L Normal 7-20 [facility] Comment on above: Performed By: #### L [id number] ####[facility] ([facility])[address] [place] [address] Calcium [Mass/Vol] 9.2 mg/dL Normal 8.6-10.3 [facility] Comment on above: Performed By: #### L [id number] ####[facility] ([facility])[address] [place] [address] Chloride [Moles/Vol] 105 mmol/L Normal 98-107 [facility] Comment on above: Performed By: #### L [id number] ####[facility] ([facility])[address] [place] [address] CO2 [Moles/Vol] 26 mmol/L Normal 21-31 [facility] Comment on above: Performed By: #### L [id number] ####[facility] ([facility])[address] [place] [address] Creatinine [Mass/Vol] 1.21 mg/dL Normal 0.70-1.30 [facility] Comment on above: Performed By: #### L [id number] ####[facility] ([facility])[address] [place] [address] GLOMERULAR FILTRATION RATE ML/MIN/1.73 SQ M.PREDICTED 64.4 mL/min/1.73m*2 Normal >60.0 [facility] Comment on above: Result Comment: [facility]???s estimated glomerular filtration rate [...] of individuals. Performed By: #### L [id number] ####[facility] ([facility])[address] [place] [address] Glucose [Mass/Vol] 200 mg/dL High 70-100 [facility] Comment on above: Performed By: #### L [id number] ####[facility] ([facility])[address] [place] [address] Potassium [Moles/Vol] 3.8 mmol/L Normal 3.5-5.1 [facility] Comment on above: Performed By: #### L [id number] ####[facility] ([facility])[address] [place] [address] Sodium [Moles/Vol] 138 mmol/L Normal 136-145 [facility] Comment on above: Performed By: #### L [id number] ####[facility] ([facility])[address] [facility] [place] [address] Urea nitrogen [Mass/Vol] 18 mg/dL Normal 7-25 [facility] Comment on above: Performed By: #### L [id number] ####[facility] ([facility])[address] [place] [address] UREA NITROGEN/CREATININE (MASS RATIO) IN SER/PLAS 14.9 Normal [facility] Comment on above: Performed By: #### L [id number] ####[facility] ([facility])[address] [place] [address] CALCIUM, IONIZEDon 202 3 CALCIUM IONIZED (MMOL/L) IN BLOOD 1.16 mmol/L Normal 1.15-1.33 [facility] Comment on above: Performed By: #### C ALCIUM, IONIZED ####[facility] RESPIRATORY [id number] [place] [address] [place] CBC WITH AUTO DIFFERENTIALon 11-25-2022 Basophils (Bld) [#/Vol] 0.03 10*3/uL Normal 0.00-0.20 [facility] Comment on above: Performed By: #### L [id number] ####[facility] ([facility])[address] [place] [address] Basophils/100 WBC (Bld) 0.5 % Normal 0.0-1.0 [facility] Comment on above: Performed By: #### L [id number] ####[facility] ([facility])[address] [place] [address] Eosinophils (Bld) [#/Vol] 0.15 10*3/uL Normal 0.00-0.50 [facility] Comment on above: Performed By: #### L [id number] ####[facility] ([facility])[address] [facility] [place] [address] Eosinophils/100 WBC (Bld) 2.3 % Normal 0.0-6.0 [facility] Comment on above: Performed By: #### L [id number] ####[facility] ([facility])[address] [place] [address] Erythrocyte distribution width (RBC) [Ratio] 14.1 % Normal 11.5-15.0 [facility] Comment on above: Performed By: #### L [id number] ####[facility] ([facility])[address] [place] [address] ERYTHROCYTE MEAN CORPUSCULAR HEMOGLOBIN CONCENTRATION (G/DL) BY AUTOMATED 34.5 g/dL Normal 32.0-35.0 [facility] Comment on above: Performed By: #### L [id number] ####[facility] ([facility])[address] [place] [address] Hematocrit (Bld) [Volume fraction] 44.4 % Normal 39.0-55.0 [facility] Comment on above: Performed By: #### L [id number] ####[facility] ([facility])[address] [place] [address] Hemoglobin (Bld) [Mass/Vol] 15.3 g/dL Normal 13.0-17.0 [facility] Comment on above: Performed By: #### L [id number] ####[facility] ([facility])[address] [place] [address] Immature granulocytes (Bld) [#/Vol] 0.03 10*3/uL Normal 0.00-0.20 [facility] Comment on above: Performed By: #### L [id number] ####[facility] ([facility])[address] [place] [address] Immature granulocytes/100 WBC (Bld) 0.5 % Normal 0.0-1.0 [facility] Comment on above: Performed By: #### L [id number] ####[facility] ([facility])[address] [place] [address] Lymphocytes (Bld) [#/Vol] 0.98 10*3/uL Low 1.20-4.00 [facility] Comment on above: Performed By: #### L [id number] ####[facility] ([facility])[address] [place] [address] Lymphocytes/100 WBC (Bld) 15.0 % Low 20.0-45.0 [facility] Comment on above: Performed By: #### L [id number] ####[facility] ([facility])[address] [place] [address] MCH (RBC) [Entitic mass] 29.4 pg Normal 27.0-33.0 [facility] Comment on above: Performed By: #### L [id number] ####[facility] ([facility])[address] [place] [address] MCV (RBC) [Entitic vol] 85.4 fL Normal 82.0-98.0 [facility] Comment on above: Performed By: #### L [id number] ####[facility] ([facility])[address] [place] [address] Monocytes (Bld) [#/Vol] 0.55 10*3/uL Normal 0.10-1.00 [facility] Comment on above: Performed By: #### L [id number] ####[facility] ([facility])[address] [place] [address] Monocytes/100 WBC (Bld) 8.4 % Normal 5.0-12.0 [facility] Comment on above: Performed By: #### L [id number] ####[facility] ([facility])[address] [place], [place] [address] Neutrophils (Bld) [#/Vol] 4.80 10*3/uL Normal 1.60-7.60 [facility] Comment on above: Performed By: #### L [id number] ####[facility] ([facility])[address] [place] [address] Neutrophils/100 WBC (Bld) 73.3 % High 40.0-72.0 [facility] Comment on above: Performed By: #### L [id number] ####[facility] ([facility])[address] [place] [address] NRBC (PER 100 WBCS) BY AUTOMATED COUNT 0.0 % Normal 0 [facility] Comment on above: Performed By: #### L [id number] ####[facility] ([facility])[address] [place] [address] PLATELETS (10*3/UL) IN BLOOD AUTOMATED COUNT 198 10*3/uL Normal 150-400 [facility] Comment on above: Performed By: #### L [id number] ####[facility] ([facility])[address] [place], [place] [address] RBC (Bld) [#/Vol] 5.20 10*6/uL Normal 4.20-5.70 [facility] Comment on above: Performed By: #### L [id number] ####[facility] ([facility])[address] [place] [address] WBC (Bld) [#/Vol] 6.54 10*3/uL Normal 4.00-10.60 [facility] Comment on above: Performed By: #### L [id number] ####[facility] ([facility])[address] [place] [address] CONSULTon 11-25-2022 CONSULT Normal [facility] Documentationon 11-25-2022 Documentation [id number] Lakia Rodriguez 1950 M Date Provider Department Center 11/25/[id number] GLYNN [facility] PULM [facility] No family history on file Normal [facility] HEPATIC FUNCTION PANELon Albumin [Mass/Vol] 4.0 g/dL Normal 3.5-5.7 [facility] Comment on above: Performed By: #### L [id number] ####[facility] ([facility])[address] [place] [address] ALP [Catalytic activity/Vol] 88 U/L Normal 34-104 [facility] Comment on above: Performed By: #### L [id number] ####[facility] ([facility])[address] [place] [address] ALT [Catalytic activity/Vol] 26 U/L Normal 7-52 [facility] Comment on above: Performed By: #### L [id number] ####[facility] ([facility])[address] [place] [address] AST [Catalytic activity/Vol] 18 U/L Normal 13-39 [facility] Comment on above: Performed By: #### L [id number] ####[facility] ([facility])[address] [place] [address] Bilirubin [Mass/Vol] 0.6 mg/dL Normal 0.3-1.0 [facility] Comment on above: Performed By: #### L [id number] ####[facility] ([facility])[address] [place] [address] Magnesium [Mass/Vol] 0.2 mg/dL Normal 0-0.2 [facility] Comment on above: Performed By: #### L [id number] ####[facility] ([facility])[address] [place] [address] Protein [Mass/Vol] 6.4 g/dL Normal 6.0-8.3 [facility] Comment on above: Performed By: #### L [id number] ####[facility] ([facility])[address] [place] [address] HPon 11-25-2022 HP Normal [facility] HP Normal [facility] MAGNESIUMon 11-25-2022 Magnesium [Mass/Vol] 1.7 mg/dL Low 1.9-2.7 [facility] Comment on above: Performed By: #### L [id number] ####[facility] ([facility])[address] [place] [address] PHOSPHORUSon 11-25-2022 Magnesium [Mass/Vol] 3.2 mg/dL Normal 2.5-5.0 [facility] Comment on above: Performed By: #### L [id number] ####[facility] ([facility])[address] [place] [address] PLATELET COUNTon 11-25-2022 PLATELETS (10*3/UL) IN BLOOD AUTOMATED COUNT 204 10*3/uL Normal 150-400 [facility] Comment on above: Performed By: #### L [id number] ####[facility] ([facility])[address] [place] [address] POCT GLUCOSE METER UNSOLICIT ED RESULTSon 11-25-2022 Glucose [Mass/Vol] 194 mg/dL High 70-105 [facility] Comment on above: Order Comment: Waive d Testing in the ED is performed under the ED CLIA certificate #[id number]. Result Comment: [email or web address] Performed By: #### L [id number] ####[facility] ([facility] [facility] [place] [address] Glucose [Mass/Vol] 193 mg/dL High 70-105 [facility] Comment on above: Order Comment: Waive d Testing in the ED is performed under the ED CLIA certificate #[id number]. Result Comment: [email or web address] Performed By: #### L [id number] ####[facility] (BE[facility]ER)[address] [place] [address] Glucose [Mass/Vol] 188 mg/dL High 70-105 [facility] Comment on above: Order Comment: Waive d Testing in the ED is performed under the ED CLIA certificate #[id number]. Result Comment: [email or web address] [email or web address] Performed By: #### L [id number] ####[facility] ([facility])[address] [place] [address] Glucose [Mass/Vol] 178 mg/dL High 70-105 [facility] Comment on above: Order Comment: Waive d Testing in the ED is performed under the ED CLIA certificate #[id number]. Result Comment: [email or web address] Performed By: #### L [id number] ####[facility] ([facility])[address] [place] [address] POTASSIUM, WHOLE BLOODon Potassium [Moles/Vol] 3.9 mmol/L Normal 3.5-5.1 [facility] Comment on above: Performed By: #### P OTASSIUM, WHOLE BLOOD ####[facility] RESPIRATORY [id number] [place] [address] [place] PROTIME-INRon 11-25-2022 INR IN PPP BY COAGULATION ASSAY 1.74 High 0.90-1.10 [facility] Comment on above: Result [...] CHEST 1995;108:231S-246S. Performed By: #### L [id number] ####[facility] ([facility])[address] [place] [address] PROTHROMBIN TIME (PT) IN PPP BY COAGULATION ASSAY 20.4 Seconds High 12.3-14.8 [facility] Comment on above: Performed By: #### L [id number] ####[facility] ([facility])[address] [place] [address] SODIUM, WHOLE BLOODon 2022 SODIUM, WHOLE BLOOD 132 Low 136-145 [facility] Comment on above: Performed By: #### S ODIUM, WHOLE BLOOD ####[facility] RESPIRATORY [id number] [place] [address] [place] TROPONIN Ion 11-25-2022 Troponin I.cardiac [Mass/Vol] 0.03 ng/mL Normal 0.00-0.04 [facility] Comment on above: Performed By: #### L [id number] ####[facility] ([facility])[address] [place] [address] Troponin I.cardiac [Mass/Vol] 0.01 ng/mL Normal 0.00-0.04 [facility] Comment on above: Performed By: #### L [id number] ####[facility] ([facility])[address] [place] [address] CHEMISTRYOrdered By: Lab ROP User on 10-02-2022 INR Coag (Bld) [Relative time] 2.1 {INR} High 0.7 - 1.2 [facility] POC Subsection POC Device SN [id number] Invalid Interpretation Code [facility] POC Subsection POC Username PARISA HYDE Invalid Interpretation Code [facility] POC Subsection POCT PT 23.2 s High 8.0 - 15.0 second(s) [facility] POC Subsection Sodium [Moles/Vol] 136675394 mmol/L Invalid Interpretation Code [facility] POC Subsection COAGULATIONOrdered By: Milagrosval allananais Hyde on 10-02-2022 INR Coag (Bld) [Relative time] 2.1 {INR} High 0.7 - 1.2 [facility] POCT PT 23.2 s High 8 - 15 second(s) [facility] POCT PT/INRon 10-02-2022 POCT INR 2.1 High .7-1.2 [facility] Comment on above: Performed By: #### 2 [id number] ####[facility] [address] [place] [address] POCT PT 23.2 second(s) High 8.0-15.0 [facility] Comment on above: Performed By: #### 2 [id number] ####[facility] [address] [place] [address] CHEMISTRYOrdered By: Lab ROP User on 08-21-2022 POC Device SN [id number] Invalid Interpretation Code [facility] POC Subsection POC Username YOSEF HAINES Invalid Interpretation Code [facility] POC Subsection Sodium [Moles/Vol] 417333984 mmol/L Invalid Interpretation Code [facility] POC Subsection COAGULATIONOrdered By: Ebenezer Haines on 08-21-2022 INR Coag (Bld) [Relative time] 2.1 {INR} High 0.7 - 1.2 [facility] POCT PT 23.3 s High 8 - 15 second(s) [facility] POCT PT/INRon 08-21-2022 POCT INR 2.1 High .7-1.2 [facility] Comment on above: Performed By: #### 2 [id number] ####[facility] [address] [place] [address] POCT PT 23.3 second(s) High 8.0-15.0 [facility] Comment on above: Performed By: #### 2 [id number] ####[facility] [address] [place] [address] Progress Note-Physicianon Progress Note-Physician Patient: LAKIA RODRIGUEZ Age: 71 years Sex: Male : [...] tab(s), Refills(s) 0, [id number] 167.6, cm, 01/02/19 13:46:00 EST, Height/Length Measured, 95.8, kg, 01/02/19 13:46:00 EST, Weight Measured Eliquis 2.5 mg oral tablet: 2.5 mg = 1 tab(s), Oral, BID, # 60 tab(s), Refills(s) 5, Pharmacy: [facility]/pharmacy #[id number] Metamucil 525 mg oral capsule: 2,625 mg = 5 cap(s), Oral, Daily, X 90 day(s), # 450 cap(s), Refills(s) 3, Pharmacy: [facility]/pharmacy #[id number], 167.6, cm, 06/27/22 8:28:00 EDT, Height/Length Dosing, 94.9, kg, 06/27/22 8:28:00 EDT, Weight Dosing albuterol HFA 90 mcg/inh MDI: 2 puff(s), Inhalation, QID for wheezing, 6.7 gram, Refill(s) 0, [facility]/pharmacy #6177 predniSONE 10 mg Tab: See Instructions, Oral 6 tabs for 1 day,5 tabs for 1 day,4 tabs for 1 day,3 tabs for 1 day,2 tabs for 1 day,1 tab for 1 day, # 21 tab(s), Refills(s) 0, Pharmacy: [facility]/pharmacy #[id number] Documented Medications Documented Immodium A-D 2 [...] list: All Problems Bloating / SNOMED CT 132978207 / Confirmed Constipation / SNOMED CT 14955945 / Confirmed Diverticulosis / SNOMED CT 4585704936 / Confirmed Acid reflux / SNOMED CT 509299209 / Confirmed Hemorrhoids / SNOMED CT 797579190 / Confirmed History of rectal cancer / SNOMED CT 1417519940 / Confirmed History of colon polyps / SNOMED CT 8688857284 / Confirmed Hypercoagulable state / SNOMED CT 652597892 / Confir (more content not included)... Normal [facility] Comment on above: Result Comment: Elec tronically Signed By: Aggie Hollingsworth\chelsy\Date and Time Signed: 08/21/22 08:26 EDT CHEMISTRYOrdered By: Danni ROP User on 07-10-2022 POC Device SN [id number] Invalid Interpretation Code [facility] POC Subsection POC Username SHAYY CAIN Invalid Interpretation Code [facility] POC Subsection Sodium [Moles/Vol] 757390847 mmol/L Invalid Interpretation Code [facility] POC Subsection POCT PT/INRon 07-10-2022 POCT INR 2.3 High .7-1.2 [facility] Comment on above: Performed By: #### 2 [id number] ####[facility] [address] [place] [address] POCT PT 24.8 second(s) High 8.0-15.0 [facility] Comment on above: Performed By: #### 2 [id number] ####[facility] [address] [place] [address] Ambulatory Visit Summaryon 0 - Ambulatory Visit Summary LAIKA RODRIGUEZ :1950 Visit Date:06/27/2022 Ambulatory Visit Instructions Your Diagnosis Constipation Bloating History of rectal cancer History of colon polyps Acid reflux Your Care Team Attending Physician - Yusra Denis CNP Primary Care Physician - Lakia Dyson MD This Is Your Medications List [...] day Constipation Duration: 90 Days Pickup at [facility]/pharmacy #7170 Unchanged albuterol (albuterol HFA 90 mcg/ inh [...] or concerns Pharmacy Information [id number]: [address] [place], [place] [id number] [phone] Allergies Ragweed (Dyspnea) penicillins (unknown) Problems Ongoing [...] It may (more content not included)... Normal [facility] Auto Diffon 06-27-2022 Basophils/100 WBC (Bld) 0.2 % Normal 0.0-2.0 [facility] Comment on above: Order Comment: Order Added by Discern Expert. Performed By: #### 2 564506, 6853799, 7396130, 13227970, 2628755 ####[facility] [address] [place] [address] Basophils/Leukocytes Auto (Bld) [Pure # fraction] 0.0 E9/L Normal 0.0-0.2 [facility] Comment on above: Order Comment: Order Added by Discern Expert. Performed By: #### 2 176118, 7059349, 9825673, 07897597, 8140950 ####[address] [address] Eosinophils/100 WBC (Bld) 2.1 % Normal 0.0-8.0 [facility] Comment on above: Order Comment: Order Added by Discern Expert. Performed By: #### 2 301835, 2302543, 2279234, 48085229, 6882579 ####[address] [address] Eosinophils/Leukocyte s Auto (Bld) [Pure # fraction] 0.1 E9/L Normal 0.0-0.5 [facility] Comment on above: Order Comment: Order Added by Discern Expert. Performed By: #### 2 628503, 4325117, 8660493, 98122796, 3786832 ####[address] [address] Lymphocytes/100 WBC (Bld) 16.3 % Normal 14.0-50.0 [facility] Comment on above: Order Comment: Order Added by Discern Expert. Performed By: #### 2 479907, 0903952, 7418495, 25820424, 3049038 ####[address] [address] Lymphocytes/Leukocyte s Auto (Bld) [Pure # fraction] 1.0 E9/L Normal 1.0-4.0 [facility] Comment on above: Order Comment: Order Added by Discern Expert. Performed By: #### 2 153336, 2259580, 5989693, 72713621, 3460557 ####[address] [address] Monocytes/100 WBC (Bld) 9.0 % Normal 4.0-14.0 [facility] Comment on above: Order Comment: Order Added by Discern Expert. Performed By: #### 2 621220, 3387974, 6860192, 43161780, 3641885 ####[address] [address] Monocytes/Leukocytes Auto (Bld) [Pure # fraction] 0.6 E9/L Normal 0.2-1.0 [facility] Comment on above: Order Comment: Order Added by Discern Expert. Performed By: #### 2 960809, 8204978, 2846711, 37282209, 6677730 ####[address] [address] Neutrophils/100 WBC (Bld) 72.4 % Normal 36.0-75.0 [facility] Comment on above: Order Comment: Order Added by Discern Expert. Performed By: #### 2 026986, 0955584, 2533078, 92530964, 4662925 ####[address] [address] Neutrophils/Leukocyte s Auto (Bld) [Pure # fraction] 4.6 E9/L Normal 2.0-7.5 [facility] Comment on above: Order Comment: Order Added by Discern Expert. Performed By: #### 2 726298, 9803084, 5641834, 77868974, 4247203 ####[address] [address] CBC w/ Auto Diffon Erythrocyte distribution width (RBC) [Ratio] 14.0 % Normal 10.9-14.2 [facility] Comment on above: Performed By: #### 2 244310, 5118564, 2979306, 16872601, 4731751 ####[address] [address] Hematocrit (Bld) [Volume fraction] 46.6 % Normal 37.7-49.0 [facility] Comment on above: Performed By: #### 2 202715, 4100956, 7593481, 59277138, 1233804 ####[address] [address] Hemoglobin (Bld) [Mass/Vol] 15.3 g/dL Normal 13.5-17.5 [facility] Comment on above: Performed By: #### 2 731317, 5317612, 8738026, 32022406, 9153117 ####[address] [place] [address] MCH (RBC) [Entitic mass] 29.2 pg Normal 27.0-34.0 [facility] Comment on above: Performed By: #### 2 386791, 3368600, 3320609, 14622074, 5587935 ####[address] [address] MCHC (RBC) [Mass/Vol] 32.8 g/dL Normal 31.4-36.0 [facility] Comment on above: Performed By: #### 2 309502, 4776015, 8137441, 70564251, 0761373 ####[address] [address] MCV (RBC) [Entitic vol] 89.2 fL Normal 80.0-100.0 [facility] Comment on above: Performed By: #### 2 791765, 0984836, 6667817, 54075334, 5392860 ####[address] [address] Platelet mean volume (Bld) [Entitic vol] 8.9 fL Normal 6.4-10.8 [facility] Comment on above: Performed By: #### 2 906193, 2748874, 0189813, 02228981, 6858052 ####[address] [address] Platelets (Bld) [#/Vol] 197.0 E9/L Normal 150.0-500.0 [facility] Comment on above: Performed By: #### 2 157255, 4375786, 8614413, 66948333, 9001535 ####[address] [address] RBC (Bld) [#/Vol] 5.2 E12/L Normal 4.3-5.9 [facility] Comment on above: Performed By: #### 2 263620, 1245920, 3110130, 65230658, 9061114 ####[facility] [address] [place] [address] WBC corrected for nucl RBC Auto (Bld) [#/Vol] 6.4 E9/L Normal 4.0-11.0 [facility] Comment on above: Performed By: #### 2 894281, 8319787, 5608780, 40211800, 8296763 ####[address] [place] [address] CEAon 06-27-2022 Carcinoembryonic Ag [Mass/Vol] 2.0 ng/mL Invalid Interpretation Code [facility] Comment on above: Result Comment: REFE RENCE VALUES <2.5 ng/mL (NONSMOKER) <5.0 ng/mL (SMOKER) The concentration of CEA in a given specimen determined by different manufacturers can vary due to differences in assay methods and reagent specificity. Values obtained with different assay methods cannot be used interchangeably. The methodology used to perform this test was chemiluminescence using [employer] Access CEA reagent. Performed By: #### 2 095542, 5296703, 3627497, 55289128, 1892501 ####[address] [place] [address] CMPon 06-27-2022 Albumin [Mass/Vol] 3.9 g/dL Normal 3.3-5.0 [facility] Comment on above: Performed By: #### 2 974073, 8517437, 7854826, 62714207, 0016991 ####[address] [place] [address] Albumin/Globulin (S) [Mass conc ratio] 1.3 Normal 1.1-2.2 [facility] Comment on above: Performed By: #### 2 230964, 8310997, 9099120, 60575307, 1514662 ####[facility] [address] [place] [address] ALP [Catalytic activity/Vol] 94 Int._Unit/L Normal 21-98 [facility] Comment on above: Performed By: #### 2 431986, 5786211, 7401288, 70381402, 3616900 ####[facility] [address] [place] [address] ALT No additional P-5'-P [Catalytic activity/Vol] 29 Int._Unit/L Normal 6-46 [facility] Comment on above: Performed By: #### 2 784238, 8077500, 7084199, 87182691, 2680827 ####[facility] [address] [place] [address] Anion gap [Moles/Vol] 10 mmol/L Normal 6-16 [facility] Comment on above: Performed By: #### 2 775592, 3937950, 6794055, 15276431, 8058826 ####[facility] [address] [place] [address] AST [Catalytic activity/Vol] 24 Int._Unit/L Normal 5-43 [facility] Comment on above: Performed By: #### 2 437149, 6556396, 5724609, 62940938, 9066970 ####[facility] [address] [place] [address] Bilirubin [Mass/Vol] 0.6 mg/dL Normal 0.0-1.1 [facility] Comment on above: Performed By: #### 2 263168, 9577037, 1140426, 04455268, 8527018 ####[facility] [address] [place] [address] Calcium [Mass/Vol] 9.1 mg/dL Normal 8.9-11.1 [facility] Comment on above: Performed By: #### 2 471967, 4783756, 9035574, 59828156, 7355711 ####[facility] [address] [place] [address] Chloride [Moles/Vol] 104 mmol/L Normal 101-111 [facility] Comment on above: Performed By: #### 2 246875, 6227200, 1779285, 93746522, 2895593 ####[facility] [address] [place] [address] CO2 [Moles/Vol] 28 mmol/L Normal 21-31 [facility] Comment on above: Performed By: #### 2 822623, 9051090, 8187603, 89506094, 4002415 ####[facility] [address] [place] [address] Creatinine [Mass/Vol] 1.3 mg/dL Normal 0.5-1.3 [facility] Comment on above: Performed By: #### 2 238892, 2182115, 4821308, 89553840, 2316323 ####[facility] [address] [place] [address] Globulin (S) [Mass/Vol] 3.1 g/dL Normal 1.4-4.0 [facility] Comment on above: Performed By: #### 2 872782, 4026271, 4803824, 17884031, 3081887 ####[facility] [address] [place] [address] Glucose [Mass/Vol] 176 mg/dL Normal 55-199 [facility] Comment on above: Result Comment: If t his glucose result represents a fasting glucose, interpretation should refer to the following reference range: 55-99 mg/dL Performed By: #### 2 140368, 5505254, 2525980, 62520943, 3723321 ####[facility] [address] [place] [address] Potassium [Moles/Vol] 3.7 mmol/L Normal 3.5-5.3 [facility] Comment on above: Performed By: #### 2 424394, 6370798, 3679727, 09200770, 3871309 ####[facility] [address] [place] [address] Protein [Mass/Vol] 7.0 g/dL Normal 6.0-7.8 [facility] Comment on above: Performed By: #### 2 788043, 9687778, 7653212, 55876694, 4411302 ####[facility] [address] [place] [address] Sodium [Moles/Vol] 138 mmol/L Normal 135-145 [facility] Comment on above: Performed By: #### 2 421096, 1446241, 0198143, 16609122, 0833961 ####[facility] [address] [place] [address] Urea nitrogen [Mass/Vol] 15 mg/dL Normal 5-21 [facility] Comment on above: Performed By: #### 2 029356, 0305008, 7191878, 84931599, 9740805 ####[facility] [address] [place] [address] Urea nitrogen/Creatinine [Mass ratio] 12 No Units Normal 10-20 [facility] Comment on above: Performed By: #### 2 258248, 0219573, 5242067, 35533526, 7446955 ####[facility] [address] [place] [address] Consent for Treatmenton 06-11 Consent for Treatment [id number] [id number] 0CD:127 Normal [facility] Consent for Treatment [id number] 3050 [id number] 0CD:127 Normal [facility] Consent for Treatment [id number] [id number] 0CD:127 Normal [facility] Gastroenterology Office/Clin ic Noteon 06-27-2022 [...] day(s), # 450 cap(s), Refills(s) 3, Pharmacy: [facility]/pharmacy #6177, 167.6, cm, 06/27/22 8:28:00 EDT, [...] rectal cance (more content not included)... Normal [facility] Comment on above: Result Comment: Elec tronically Signed By: Yusra Denis CNP\.br\Date and Time Signed: 06/27/22 08:50 EDT Magnesiumon 06-27-2022 Magnesium [Mass/Vol] 1.9 mg/dL Normal 1.3-2.4 [facility] Comment on above: Performed By: #### 2 409123, 5853329 ####[facility] [address] [place] [address] Oncology Progress Noteon Oncology Progress Note Patient: LAKIA RODRIGUEZ Age: 71 years Sex: Male : 1950 Associated Diagnoses: None Author: Dougie Harmon DO Chief Complaint 06/27/2022 8:25 EDT Followup History of Present Illness Gray presents in follow-up today November 14, 2020. CT scans of the chest abdomen pelvis are negative for recurrence. He has no complaints. He did have uneventful hernia repair surgery in [place]. He will be going to [place] and following up with me in June. [...] list: All Problems Bloating / SNOMED CT 076243572 / Confirmed Constipation / SNOMED CT 82873327 / Confirmed Diverticulosis / SNOMED CT 0091865860 / Confirmed Acid reflux / SNOMED CT 273339101 / Confirmed Hemorrhoids / SNOMED CT 599364510 / Confirmed History of rectal cancer / SNOMED CT 4737630627 / Confirmed History of colon polyps / SNOMED CT 1531431865 / Confirmed Hypercoagulable state / SNOMED CT 493081764 / Confirmed Schatzki's ring / SNOMED CT 640153359 / Confirmed Colon polyp / SNOMED CT 384955363 / Confirmed Resolved: Change in bowel habits / SNOMED CT 042777052 Resolved: At Risk For Unstable Blood Glucose Level / IMO 3814842 Problem added due to documentation that the patient has diabetes. Resolved due to patient discharge. Resolved: Colon cancer / SNOMED CT 1931009152 Resolved: DVT - Deep vein thrombosis / SNOMED CT 4536624054 Resolved: Dysphagia / SNOMED CT 09986578 Histories Past Medical History: Resolved Colon cancer (7892186084): Resolved. DVT - Deep vein thrombosis (5066041872): Resolved. Change in bowel habits (119762399): Resolved. Dysphagia (57785020): R (more content not included)... Normal [facility] Patient Educationon 06-28-19 Patient Education [...] as fried or sweet foods. These include tajik fries, hamburgers, cookies, candies, and soda. ? Drink enough fluid to keep your urine pale yellow. General instructions ? Exercise regularly or as told by your health care provider. Try to do 150 minutes of moderate exercise each week. ? Use the bathroom when you have the urge to go. Do not hold it in. ? Take mbit-lxy-cuklrfd and prescription medicines only as told by [...] keep your urine pale yellow. ? Take nbbv-uah-ulcjmcg and prescription medicines only as told by your health care provider. This includes any fiber supplements. This information is not intended to replace advice given to you by your health care provider. Make sure you discuss any questions you have with your health care provider. Document Revised: 12/16/2019 Document Reviewed: 12/16/2019 Elsevier Patient Education ? 2022 [employer]. Normal [facility] Vit B12on 06-27-2022 Cobalamin (Vitamin B12) [Mass/Vol] 338 pg/mL Normal 50-1500 [facility] Comment on above: Performed By: #### 2 192512, 7673651 ####[facility] [address] [place] [address] eGFRon 06-27-2022 GFR/1.73 sq M.predicted among non-blacks MDRD (S/P/Bld) [Vol rate/Area] 59 mL/min/1.73 m2 Normal >=59 [facility] Comment on above: Order Comment: Order added by Discern Expert. Result Comment: Systems Program Manager lisa kidney disease could be indicated at eGFR's of less than 60 mL/min/1.73m2. Kidney failure is indicated at less than 15 mL/min/1.73m2. Performed By: #### 2 709019, 0389649, 3329384, 77187741, 1938714 ####[facility] [address] [address] POCT PT/INRon 06-01-2022 POCT INR 2.1 High .7-1.2 [facility] Comment on above: Performed By: #### 2 [id number] ####[facility] [address] [place] [address] POCT PT 23.5 second(s) High 8.0-15.0 [facility] Comment on above: Performed By: #### 2 344232879 ####[facility] [address] [place] [address] Ambulatory Visit Summaryon 0 - Ambulatory Visit Summary LAKIA RODRIGUEZ :1950 Visit Date:05/17/2022 Ambulatory Visit Instructions Your Diagnosis Constipation Bloating History of rectal cancer Acid reflux History of colon polyps Your Care Team Attending Physician - Cira MINER, Yusra A Primary Care Physician - Lakia Dyson MD This Is Your Medications List [...] AM EDT With: Yusra Denis CNP Where: [facility] Normal [facility] Gastroenterology Office/Clin ic Noteon 05-17-2022 [...] day(s), # 450 cap(s), Refills(s) 0, Pharmacy: [facility]/pharmacy #6177, 167.6, cm, 05/17/22 8:01:00 EDT, Height/Length [...] and an (more content not included)... Normal [facility] Comment on above: Result Comment: Elec tronically Signed By: Yusra Denis CNP.pavan\Date and Time Signed: 05/17/22 08:28 EDT Patient [...] a fiber (more content not included)... Normal [facility] Outside Recordson 05-08-2022 Outside Records [id number] 22 [id number] 0CD:127 Normal [facility] COAGULATIONOrdered By: Elenita Hyde on 01-09-2022 POCT INR 2.8 High 0.7 - 1.2 [facility] POCT PT 30.2 High 8 - 15 [facility] CHEMISTRYOrdered By: SYSTEM SYSTEM on 12-27-2021 Albumin [...] m2 FT Chem S Globulin (S) [Mass/Vol] 3.1 g/dL [...] - 11.0 E9/L FT HemeAutoSS Covid-19 PCR ([facility]on SARS-CoV-2 (COVID-19) RNA KELLY+probe Ql (Unsp spec) Detected Critically abnormal NOT DETECTED [facility] Comment on above: Result Comment: This test is not yet approved or cleared by the [place] FDA. When there are no FDA-approved or cleared tests available, and other criteria are met, FDA can make tests available under an emergency access mechanism called an Emergency Use Authorization (EUA). The EUA for this test is supported by the [place] of Health and Human Service's (HHS's) declaration [...] By: #### C VDTBH #### [facility] [address] [place] [address] Dr. Kayli Perez INFLUENZA A AND B AGon 12-14 [facility] SEE BELOW Normal [facility] Comment on above: Result Comment: Nega tive for Flu A protein angiten. Infection due to Flu A cannot be ruled out. Flu A angiten in the sample may be below the detection limit of the test. Performed By: #### I NFLUAB #### [facility] [address] [place] [address] Dr. [facility] Normal [facility] Comment on above: Result Comment: Nega tive for Flu B protein antigen. Infection due to Flu B cannot be ruled out. Flu B antigen in the sample may be below the detection limit of the test. Performed By: #### I NFLUAB #### [facility] [address] [place] [address] Dr. Kayli Perez INFLUENZA A AG Negative Normal NEGATIVE SEE COMMENT [facility] Comment on above: Performed By: #### I NFLUAB #### [facility] [address] [place] [address] Dr. Kayli Perez INFLUENZA B AG Negative Normal NEGATIVE SEE COMMENT [facility] Comment on above: Performed By: #### I NFLUAB #### [facility] [address] [place] [address] Dr. Kayli Perez INTERNAL CONTROLS Within Normal Limits Normal Wi thin Normal Limits [facility] Comment on above: Performed By: #### I NFLUAB #### [facility] [address] [address] [address] Kayli Perez CHEMISTRYOrdered By: Yosef Haines on 11-28-2021 INR POC FT 2.5 [facility] PT POC FT 30.3 s High 10.8 - 13.6 second(s) [facility] CHEMISTRYOrdered By: Parisa Hyde on 10-13-2021 INR POC FT 2.4 [facility] PT POC FT 28.9 s High 10.8 - 13.6 second(s) [facility] CHEMISTRYOrdered By: Shayy Cain on 10-03-2021 INR POC FT 2.6 [facility] PT POC FT 31.6 s High 10.8 - 13.6 second(s) [facility] CHEMISTRYOrdered By: SYSTEM SYSTEM on 06-23-2021 Albumin [...] 3.0 g/dL Normal 1.4 - 4.0 gm/dL FT Remisol Glucose [Mass/Vol] 124 mg/dL Normal 55 [...] 14.5 g/dL Normal 13.5 - 17.5 gm/dL [facility] HemeAutoSS MCH (RBC) [Entitic mass] 29.6 pg Normal 27.0 - 34.0 pg [facility] HemeAutoSS MCHC (RBC) [Mass/Vol] 34.5 g/dL Normal 31.4 - 36.0 gm/dL [facility] HemeAutoSS MCV (RBC) [Entitic vol] 85.9 fL Normal 80.0 - 100.0 fL [facility] HemeAutoSS Platelet mean volume (Bld) [Entitic vol] 9.2 fL Normal 6.4 - 10.8 fL [facility] HemeAutoSS Platelets (Bld) [#/Vol] 196.0 E9/L Normal 150.0 - 500.0 E9/L [facility] HemeAutoSS RBC (Bld) [#/Vol] 4.9 E12/L Normal 4.3 - 5.9 E12/L [facility] HemeAutoSS WBC corrected for nucl RBC Auto (Bld) [#/Vol] 6.3 E9/L Normal 4.0 - 11.0 E9/L [facility] HemeAutoSS CHEMISTRYOrdered By: SYSTEM SYSTEM on 06-14-2021 [...] m2 [facility] Chem S Globulin (S) [Mass/Vol] 2.8 g/dL [...] 10 - 20 [facility] Remisol HEMATOLOGYOrdered By: [facility] SYSTEM on 06-14-2021 Basophils/100 WBC (Bld) 0.3 [...] Normal 4.0 - 11.0 E9/L [facility] HemeAutoSS Lizabeth 12-20-2020 [facility] Telephone (RAIZA) LAKIA RODRIGUEZ ([id number]) 1950 M Date Time Provider Department 12/20/20 [...] Date Reviewed: 09/05/2020 Reviewed by: Cydney Koch APRN.MORNING SHOW HOST - Fully Assessed Reason for Visit: Patient [...] Status:Closed by NANCI FUNES on 12/20/20 Normal [facility] CNOVon 09-05-2020 CNOV Office Visit (GENSMN ) CEASARLAKIA GAFFNEY ([id number]) 1950 M Date Time Provider Department 09/05/20 11:00 AM CYDNEY KOCH During your visit today, we recorded the following information about you: Temperature Pulse Blood pressure Weight 97.7 degrees 77/minute 139/84 86.3 kg Height 1.702 m Binta Barksdalevicente Barahona 09/05/2020 11:04 AM Signed What is the reason for your visit today? Post op Who is your referring physician? Dr. Amaya Are you having poor oral intake? NO Have you had unintentional weight loss of 15 lbs/7 Kg in the last 3-6 months? NO Bowels: regular Wound: clean AND dry Temperature: No Drains: No Cydney Koch APRN.CNP 09/05/2020 11:19 AM Signed [facility] Clinic Date: 09/05/2020 Lakia Rodriguez, 69 year old CHIEF COMPLAINT: Patient presents with: Post Op HPI: Lakia Rodriguez presents for follow up from surgery. [...] needed. Randomized control trial: RINSE/FIXATION Cydney Koch APRN.MORNING SHOW HOST September 04, (more content not included)... Normal [facility] HEALTHon 08-19-2020 ALLIED HEALTH HNO ID: [id number] Author: Chaplain Rosa Service: Spiritual Care Author Type: [employer]ing [employer] Supervisor Type: Allied Health Filed: 08/19/2020 12:24 PM Note Text: SPIRITUALCARE Spiritual Care Visit- Brief Note Name: Lakia Rodriguez Date: August 19, 2020 Notes: I [...] ended by prayer at the pt's request. [employer]ing [employer] Supervisor Signature: Chaplain ROSA To contact the Spiritual Care Department: Please call [phone] or Page the On-Call [place] [place] Supervisor at pager [phone] Thank you for the opportunity to be of service. This is an electronically created document. IF PRINTED, PLEASE DO NOT REMOVE FROM THE CHART OR MODIFY PRINTED COPY. Normal [facility] Basic Metabolic Panlon 08-19 Anion gap [Moles/Vol] 9 mmol/L Normal 9-18 [facility] Comment on above: Performed By: #### P T, MG1, PHOS, BMP ####[facility] [place], [place] [phone] Calcium [Mass/Vol] 8.9 mg/dL Normal 8.5-10.2 [facility] Comment on above: Performed By: #### P T, MG1, PHOS, BMP ####[facility] [place], [place] [phone] Chloride [Moles/Vol] 100 mmol/L Normal 97-105 [facility] Comment on above: Performed By: #### P T, MG1, PHOS, BMP ####[facility] [address] [place], [place] [phone] CO2 [Moles/Vol] 25 mmol/L Normal 22-30 [facility] Comment on above: Performed By: #### P T, MG1, PHOS, BMP ####[facility] [place], [place] [phone] Creatinine [Mass/Vol] 1.13 mg/dL Normal 0.73-1.22 [facility] Comment on above: Performed By: #### P T, MG1, PHOS, BMP ####[facility] [address] [place] [place], [place] [phone] eGFR- Amer. >60 Normal [facility] Comment on above: Performed By: #### P T, MG1, PHOS, BMP ####[facility] [place], [place] [phone] eGFR-All Other Races >60 Normal [facility] Comment on above: Result Comment: eGFR [...] GFR. Performed By: #### P T, MG1, PHOS, BMP ####[address] [phone] Glucose [Mass/Vol] 117 mg/dL High 74-99 [facility] Comment on above: Result Comment: The [place] Diabetes [employer] (ADA) provides guidance for cutoff [...] Standards of Medical Care in Diabetes 2016, [place] [employer]. Diabetes Care. 2016.39(Suppl 1). Performed By: #### P T, MG1, PHOS, BMP ####[facility] [place], [place] [phone] Potassium [Moles/Vol] 4.2 mmol/L Normal 3.7-5.1 [facility] Comment on above: Performed By: #### P T, MG1, PHOS, BMP ####[facility] [address] [place], [place] [phone] Sodium [Moles/Vol] 134 mmol/L Low 136-144 [facility] Comment on above: Performed By: #### P T, MG1, PHOS, BMP ####[facility] [address] [place], [place] [phone] Urea nitrogen [Mass/Vol] 21 mg/dL Normal 9-24 [facility] Comment on above: Performed By: #### P T, MG1, PHOS, BMP ####[facility] [place], [place] [phone] CASE MANAGEMon 08-19-2020 CASE MANAGEM HNO ID: [id number] Author: Rosaline Keating RN Service: Case Management Author Type: Registered Nurse Type: Care Mgt Progress Note Filed: 08/19/2020 10:15 AM Note Text: CARE MANAGEMENT PROGRESS NOTE SERVICE DATE: 08/19/2020 SERVICE TIME: 10:00 AM LOS: 7 days Admission Date: 08/12/2020 DISCHARGE ARRANGEMENT Discharge Arrangement: [facility] facility Was an expedited discharge program used?: No CAREGIVER ASSESSMENT: Caregiver is ready, willing and able to meet the patient's needs as recommended by the inter-professional team:: Yes Does the patient have an acute stroke diagnosis, or has the patient had a stroke during this admission?: No Patient's transition needs and plan for meeting these needs: SNF [facility] HANDOFF COMMUNICATION: Handoff to: Other Caregiver Other Caregiver Name/Phone: Cynthia Aguila CNP summary of care sent . [facility] ([place] ) p# [phone] and via [employer] TRANSPORTATION ARRANGEMENTS: Transportation Arrangements: Car Discharge Information Row Name Admission (Current) from 08/12/2020 in [place] [address] Snf Facility Agency [facility], [facility] Needs Prior to Discharge: Ready for Discharge Patient d/c ready to [facility] . Patient to transport via car with family/friend .Patient aware of plan. Bedside RN aware of plan and provided number to call report [phone] CM spoke with nursing techn and updated on plan of care, confirmed facility ready for the patient arrival today p# [phone] and DC instructions sent to [facility] via [employer] and are in DC packet. DC packet in chart to go with patient. SIGNATURE: Rosaline Keating RN PATIENT NAME: Lakia Rodriguez DATE: August 19, 2020 TIME: 9:59 AM PAGER/CONTACT #: [phone] Normal [facility] Magnesiumon 08-19-2020 Magnesium [Mass/Vol] 2.1 mg/dL Normal 1.7-2.3 [facility] Comment on above: Performed By: #### P T, MG1, PHOS, BMP ####[facility] [address] [place], [place] [phone] Phosphoruson 08-19-2020 Phosphate [Mass/Vol] 3.4 mg/dL Normal 2.7-4.8 [facility] Comment on above: Performed By: #### P T, MG1, PHOS, BMP ####[facility] [address] [place], [place] [phone] Protimeon 08-19-2020 PT INR 1.2 Normal 0.9-1.3 [facility] Comment on above: Result Comment: Alexandra min K Antagonist (VKA) Therapeutic Range: INR 2 to 3 (Target INR of 2.5) Note: For patients treated with VKA drugs, such as warfarin, the [place] [employer] 2012 Guideline recommends [...] Chest 2012, 141:7S-47S Apryl NEAL et al. [facility] 2017, 70: 252-289 Performed By: #### P T, MG1, PHOS, BMP ####[address] [phone] PT Sec 12.3 sec Normal 9.7-13.0 [facility] Comment on above: Performed By: #### P T, MG1, PHOS, BMP ####[address] [phone] Basic Metabolic Panlon 08-18 Anion gap [Moles/Vol] 9 mmol/L Normal 9-18 [facility] Comment on above: Performed By: #### B MP, MG1, PHOS, CBC, PT ####[address] [phone] Calcium [Mass/Vol] 9.0 mg/dL Normal 8.5-10.2 [facility] Comment on above: Performed By: #### B MP, MG1, PHOS, CBC, PT ####[address] [phone] Chloride [Moles/Vol] 100 mmol/L Normal 97-105 [facility] Comment on above: Performed By: #### B MP, MG1, PHOS, CBC, PT ####[address] [phone] CO2 [Moles/Vol] 27 mmol/L Normal 22-30 [facility] Comment on above: Performed By: #### B MP, MG1, PHOS, CBC, PT ####[address] [place] [address] [place], [place] [phone] Creatinine [Mass/Vol] 1.10 mg/dL Normal 0.73-1.22 [facility] Comment on above: Performed By: #### B MP, MG1, PHOS, CBC, PT ####[facility] [place], [place] [phone] eGFR- Amer. >60 Normal [facility] Comment on above: Performed By: #### B MP, MG1, PHOS, CBC, PT ####[facility] [place], [place] [phone] eGFR-All Other Races >60 Normal [facility] Comment on above: Result Comment: eGFR [...] #### B MP, MG1, PHOS, CBC, PT ####[address] [place], [place] [phone] Glucose [Mass/Vol] 119 mg/dL High 74-99 [facility] Comment on above: Result Comment: The [place] Diabetes Association (ADA) provides guidance for cutoff [...] Standards of Medical Care in Diabetes 2016, [place] [employer]. Diabetes Care. 2016.39(Suppl 1). Performed By: #### B MP, MG1, PHOS, CBC, PT ####[facility] [address] [place], [place] [phone] Potassium [Moles/Vol] 4.0 mmol/L Normal 3.7-5.1 [facility] Comment on above: Performed By: #### B MP, MG1, PHOS, CBC, PT ####[facility] [place], [place] [phone] Sodium [Moles/Vol] 136 mmol/L Normal 136-144 [facility] Comment on above: Performed By: #### B MP, MG1, PHOS, CBC, PT ####[address] [place], [place] [phone] Urea nitrogen [Mass/Vol] 22 mg/dL Normal 9-24 [facility] Comment on above: Performed By: #### B MP, MG1, PHOS, CBC, PT ####[address] [place], [place] [phone] CASE MGT INIT ANABELLAon 2020 CASE MGT INIT ANABELLA HNO ID: [id number] Author: Rosaline Keating RN Service: Case Management Author Type: Registered Nurse Type: Care Mgt Initial Assessment Filed: 08/18/2020 3:53 PM Note Text: CARE MANAGEMENT PROGRESS NOTE SERVICE DATE: 08/18/2020 SERVICE TIME: 10:36 AM LOS: 6 days Needs Prior to Discharge: Discharge Transportation CM UPDATE Per Primary Team DC anticipated tomorrow Accepting SNF facility [facility] . CM sent updated clinicals via [employer]. CM spoke with [facility] in admitting who confirms they have bed available for patient to admit . ZHANE requested 7000 to be completed , [facility] Nurse report number provided : [phone]. Ask for 200 gr nurse Patient request to transport with family/friends via car. Facility confirmed the patient can arrive via car. Patient transportation arranged for 10 AM tomorrow. SIGNATURE: Rosaline Keating RN PATIENT NAME: Lakia Rodriguez DATE: August 18, 2020 TIME: 10:36 AM PAGER/CONTACT #: [phone] Normal [facility] CBCon 08-18-2020 Absolute nRBC <0.01 Normal <0.01 [facility] Comment on above: Performed By: #### B MP, MG1, PHOS, CBC, PT ####[facility] [place], [place] [phone] Erythrocyte distribution width (RBC) [Ratio] 13.5 % Normal 11.5-15.0 [facility] Comment on above: Performed By: #### B MP, MG1, PHOS, CBC, PT ####[address] [place] [address] [place] [phone] Hematocrit (Bld) [Volume fraction] 42.3 % Normal 39.0-51.0 [facility] Comment on above: Performed By: #### B MP, MG1, PHOS, CBC, PT ####[address] [place], [place] [phone] Hemoglobin (Bld) [Mass/Vol] 13.5 g/dL Normal 13.0-17.0 [facility] Comment on above: Performed By: #### B MP, MG1, PHOS, CBC, PT ####[facility] [place], [place] [phone] MCH 28.3 pG Normal 26.0-34.0 [facility] Comment on above: Performed By: #### B MP, MG1, PHOS, CBC, PT ####[facility] [place], [place] [phone] MCHC (RBC) [Mass/Vol] 31.9 g/dL Normal 30.5-36.0 [facility] Comment on above: Performed By: #### B MP, MG1, PHOS, CBC, PT ####[address] [address] [place], [place] [phone] MCV (RBC) [Entitic vol] 88.7 fL Normal 80.0-100.0 [facility] Comment on above: Performed By: #### B MP, MG1, PHOS, CBC, PT ####[address] [place] [address] [place] [place], [place] [phone] Platelet mean volume (Bld) [Entitic vol] 10.2 fL Normal 9.0-12.7 [facility] Comment on above: Performed By: #### B MP, MG1, PHOS, CBC, PT ####[address] [place], [place] [phone] Platelets (Bld) [#/Vol] 219 10*3/uL Normal 150-400 [facility] Comment on above: Performed By: #### B MP, MG1, PHOS, CBC, PT ####[address] [phone] RBC (Bld) [#/Vol] 4.77 10*6/uL Normal 4.20-6.00 [facility] Comment on above: Performed By: #### B MP, MG1, PHOS, CBC, PT ####[address] [phone] WBC (Bld) [#/Vol] 6.07 10*3/uL Normal 3.70-11.00 [facility] Comment on above: Performed By: #### B MP, MG1, PHOS, CBC, PT ####[address] [phone] Magnesiumon 08-18-2020 Magnesium [Mass/Vol] 2.2 mg/dL Normal 1.7-2.3 [facility] Comment on above: Performed By: #### B MP, MG1, PHOS, CBC, PT ####[facility] [address] [place], [place] [phone] NUTRITIONon 08-18-2020 NUTRITION HNO ID: [id number] Author: Sandra Katz DTR Service: Nutrition Therapy Author Type: Amphibious Operations Officer Type: Nutrition Filed: 08/18/2020 1:49 PM Note Text: NUTRITION THERAPY CLIENT CARE SPECIALIST NOTE SERVICE DATE: 08/18/2020 SERVICE TIME: 950 [...] 1 SIGNATURE: Sandra Katz DTR PATIENT NAME: Lakia Rodriguez DATE: August 18, 2020 TIME: 1:49 PM PAGER: [phone] Normal [facility] Phosphoruson 08-18-2020 Phosphate [Mass/Vol] 3.5 mg/dL Normal 2.7-4.8 [facility] Comment on above: Performed By: #### B MP, MG1, PHOS, CBC, PT ####[facility] [address] [place], [place] [phone] Protimeon 08-18-2020 PT INR 1.0 Normal 0.9-1.3 [facility] Comment on above: Result Comment: Alexandra min K Antagonist (VKA) Therapeutic Range: INR 2 to 3 (Target INR of 2.5) Note: For patients treated with VKA drugs, such as warfarin, the [place] [employer] 2012 Guideline recommends [...] Chest 2012, 141:7S-47S Apryl RA, et al. [facility] 2017, 70: 252-289 Performed By: #### B MP, MG1, PHOS, CBC, PT ####[facility] [place], [place] [phone] PT Sec 11.2 sec Normal 9.7-13.0 [facility] Comment on above: Performed By: #### B MP, MG1, PHOS, CBC, PT ####[facility] [place], [place] [phone] THERAPY NTon 08-18-2020 THERAPY NT HNO ID: [id number] Author: Greg Gonzalez, PT Service: Physical Therapy Author Type: Physical Therapist Type: Therapy (PT/OT/Speech/Resp) Filed: 08/18/2020 4:05 PM Note Text: Physical Therapy Treatment SERVICE DATE: 08/18/2020 SERVICE TIME: 1526 to 1549 ROOM: [place] [address] Recommended Discharge Disposition: Outpatient Physical Therapy Recommended [...] Bed/Bath: 0 Tub/Shower Type: walk-in Laundry: I 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 SIGNATURE: Greg Gonzalez, PT PATIENT NAME: Laika Rodriguez DATE: August 18, 2020 TIME: 4:05 PM Normal [facility] Basic Metabolic Panlon 08-17 Anion gap [Moles/Vol] 10 mmol/L Normal 9-18 [facility] Comment on above: Performed By: #### B MP, MG1, CBC, PHOS ####[facility] [address] [place], [place] [phone] Calcium [Mass/Vol] 9.0 mg/dL Normal 8.5-10.2 [facility] Comment on above: Performed By: #### B MP, MG1, CBC, PHOS ####[facility] [address] [place] [place], [place] [phone] Chloride [Moles/Vol] 96 mmol/L Low 97-105 [facility] Comment on above: Performed By: #### B MP, MG1, CBC, PHOS ####[facility] [address] [place] [place], [place] [phone] CO2 [Moles/Vol] 27 mmol/L Normal 22-30 [facility] Comment on above: Performed By: #### B MP, MG1, CBC, PHOS ####[facility] [place] [address] [phone] Creatinine [Mass/Vol] 1.15 mg/dL Normal 0.73-1.22 [facility] Comment on above: Performed By: #### B MP, MG1, CBC, PHOS ####[place] [address] [place] [phone] eGFR- Amer. >60 Normal [facility] Comment on above: Performed By: #### B MP, MG1, CBC, PHOS ####[address] [phone] eGFR-All Other Races >60 Normal [facility] Comment on above: Result Comment: eGFR [...] By: #### B MP, MG1, CBC, PHOS ####[facility] [address] [place], [place] [phone] Glucose [Mass/Vol] 134 mg/dL High 74-99 [facility] Comment on above: Result Comment: The [place] Diabetes [employer] (ADA) provides guidance for cutoff [...] Standards of Medical Care in Diabetes 2016, [place] [employer]. Diabetes Care. 2016.39(Suppl 1). Performed By: #### B MP, MG1, CBC, PHOS ####[facility] [address] [place], [place] [phone] Potassium [Moles/Vol] 4.0 mmol/L Normal 3.7-5.1 [facility] Comment on above: Performed By: #### B MP, MG1, CBC, PHOS ####[facility] [place], [place] [phone] Sodium [Moles/Vol] 133 mmol/L Low 136-144 [facility] Comment on above: Performed By: #### B MP, MG1, CBC, PHOS ####[facility] [address] [place] [place], [place] [phone] Urea nitrogen [Mass/Vol] 20 mg/dL Normal 9-24 [facility] Comment on above: Performed By: #### B MP, MG1, CBC, PHOS ####[facility] [address] [place], [place] [phone] CASE MGT INIT [facility] 2020 CASE MGT INIT [facility] HNO ID: [id number] Author: Rosaline Keating RN Service: Case Management Author Type: Registered Nurse Type: Care Mgt Initial Assessment Filed: 08/17/2020 12:20 PM Note Text: CARE MANAGEMENT PROGRESS NOTE SERVICE DATE: 08/17/2020 SERVICE TIME: 12:17 PM LOS: 5 days Needs Prior to Discharge: Other: See Comment (medical janiya) CM UPDATE Accepting SNF [facility] , patient requested facility of choice. CM awaiting review of DIPSO. CM will continue to follow for DC planning. SIGNATURE: Rosaline Keating RN PATIENT NAME: Lakia Rodriguez DATE: August 17, 2020 TIME: 12:16 PM PAGER/CONTACT #: [phone] Normal [facility] CBCon 08-17-2020 Absolute nRBC <0.01 Normal <0.01 [facility] Comment on above: Performed By: #### B MP, MG1, CBC, PHOS ####[place] [address] [place], [place] [phone] Erythrocyte distribution width (RBC) [Ratio] 13.7 % Normal 11.5-15.0 [facility] Comment on above: Performed By: #### B MP, MG1, CBC, PHOS ####[place] [phone] Hematocrit (Bld) [Volume fraction] 40.9 % Normal 39.0-51.0 [facility] Comment on above: Performed By: #### B MP, MG1, CBC, PHOS ####[place] [phone] Hemoglobin (Bld) [Mass/Vol] 13.5 g/dL Normal 13.0-17.0 [facility] Comment on above: Performed By: #### B MP, MG1, CBC, PHOS ####[place] [phone] MCH 28.9 pG Normal 26.0-34.0 [facility] Comment on above: Performed By: #### B MP, MG1, CBC, PHOS ####[place] [id number] [place] [phone] MCHC (RBC) [Mass/Vol] 33.0 g/dL Normal 30.5-36.0 [facility] Comment on above: Performed By: #### B MP, MG1, CBC, PHOS ####[place] [address] [address], [place] [phone] MCV (RBC) [Entitic vol] 87.6 fL Normal 80.0-100.0 [facility] Comment on above: Performed By: #### B MP, MG1, CBC, PHOS ####[address] [place], [place] [phone] Platelet mean volume (Bld) [Entitic vol] 10.5 fL Normal 9.0-12.7 [facility] Comment on above: Performed By: #### B MP, MG1, CBC, PHOS ####[address] [phone] Platelets (Bld) [#/Vol] 210 10*3/uL Normal 150-400 [facility] Comment on above: Performed By: #### B MP, MG1, CBC, PHOS ####[address] [phone] RBC (Bld) [#/Vol] 4.67 10*6/uL Normal 4.20-6.00 [facility] Comment on above: Performed By: #### B MP, MG1, CBC, PHOS ####[address] [phone] WBC (Bld) [#/Vol] 6.51 10*3/uL Normal 3.70-11.00 [facility] Comment on above: Performed By: #### B MP, MG1, CBC, PHOS ####[address] [phone] Magnesiumon 08-17-2020 Magnesium [Mass/Vol] 2.1 mg/dL Normal 1.7-2.3 [facility] Comment on above: Performed By: #### B MP, MG1, CBC, PHOS ####[address] [phone] NURSING PROGon 08-17-2020 NURSING PROG HNO ID: [id number] Author: Dahlia Doss RN Service: ? Author Type: Registered Nurse Type: Nursing Progress Note Filed: 08/17/2020 6:21 PM Note Text: Nursing Progress Note Patient Name: Lakia Rodriguez Patient Location: [place] [address] __ Daily Note: 1640: this nurse contacted [...] note was completed by: Dahlia Doss Normal [facility] Phosphoruson 08-17-2020 Phosphate [Mass/Vol] 3.0 mg/dL Normal 2.7-4.8 [facility] Comment on above: Performed By: #### B MP, MG1, CBC, PHOS ####[facility] [address] [place], [place] [phone] Basic Metabolic Panlon 08-16 Anion gap [Moles/Vol] 11 mmol/L Normal 9-18 [facility] Comment on above: Performed By: #### P HOS, CBC, MG1, BMP ####[facility] [address] [place], [place] [phone] Calcium [Mass/Vol] 9.2 mg/dL Normal 8.5-10.2 [facility] Comment on above: Performed By: #### P HOS, CBC, MG1, BMP ####[facility] [address], [place] [phone] Chloride [Moles/Vol] 100 mmol/L Normal 97-105 [facility] Comment on above: Performed By: #### P HOS, CBC, MG1, BMP ####[facility] [place], [place] [phone] CO2 [Moles/Vol] 26 mmol/L Normal 22-30 [facility] Comment on above: Performed By: #### P HOS, CBC, MG1, BMP ####[place] [address] [address] [place] [phone] Creatinine [Mass/Vol] 1.02 mg/dL Normal 0.73-1.22 [facility] Comment on above: Performed By: #### P HOS, CBC, MG1, BMP ####[place] [address] [address] [place], [place] [phone] eGFR- Amer. >60 Normal [facility] Comment on above: Performed By: #### P HOS, CBC, MG1, BMP ####[place] [address] [address] [place], [place] [phone] eGFR-All Other Races >60 Normal [facility] Comment on above: Result Comment: eGFR [...] By: #### P HOS, CBC, MG1, BMP ####[facility], [place] [phone] Glucose [Mass/Vol] 126 mg/dL High 74-99 [facility] Comment on above: Result Comment: The [place] Diabetes [employer] (ADA) provides guidance for cutoff [...] Standards of Medical Care in Diabetes 2016, [place] [employer]. Diabetes Care. 2016.39(Suppl 1). Performed By: #### P HOS, CBC, MG1, BMP ####[facility] [place] [address] [phone] Potassium [Moles/Vol] 4.4 mmol/L Normal 3.7-5.1 [facility] Comment on above: Performed By: #### P HOS, CBC, MG1, BMP ####[facility] [place], [place] [phone] Sodium [Moles/Vol] 137 mmol/L Normal 136-144 [facility] Comment on above: Performed By: #### P HOS, CBC, MG1, BMP ####[facility] [address] [place], [place] [phone] Urea nitrogen [Mass/Vol] 16 mg/dL Normal 9-24 [facility] Comment on above: Performed By: #### P HOS, CBC, MG1, BMP ####[facility] [address] [place], [place] [phone] CASE MGT INIT Javier 2020 CASE MGT INIT FRANCO HNO ID: [id number] Author: Rosaline Keating RN Service: Case Management Author Type: Registered Nurse Type: Care Mgt Initial Assessment Filed: 08/16/2020 5:34 PM Note Text: CARE MANAGEMENT: ASSESSMENT AND DISCHARGE PLAN SERVICE DATE: August 16, 2020 SERVICE TIME: 5:29 PM PRIMARY CARE PHYSICIAN: Cynthia Aguila CNP, ISIDRA ADMISSION STATUS: Inpatient Needs Prior to Discharge: Accepting Facility MEDICAL: MEDICARE A AND B 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 Last discharge within 30 days: No Advance Directive: Current Advance Directive: Health Care Power of Edm Operator In Chart: Yes Up To Date [...] None Has the Patient Been in a Snf Facility in the Past 30 days?: No SOCIAL: Living Arrangements: Home Lives With: Alone Financial Resources: Employed Primary Contact: Extended Emergency Contact Information Primary Emergency Contact: HernandezEnzo Whipple Mobile Relation: Brother Supportive Patient Contact:: Yes Contact Resources: Family Family Name/Phone: Enzo Hernandez ( brother , lives in [place], [place] ) [phone] Caregiver AssessmentCaregiver is ready, willing and able [...] Mostly I feel financially burdened by my ijf-rj-vbihrt expenses for my prescription medication:: 0 - Disagree Mostly Risk Score: 0 Patient is categorized as: Low risk < 2 Are you interested in bedside delivery of your medications? No Is Patient Psychosocially Complex?: No ASSESSMENT AND PLAN: Medical Needs: Medical Needs: Two or more chronic diseases Psychosocial Needs: Psychosocial Needs: None FREEDOM OF CHOICE EXPLAINED: [place] of Choice Given: Yes Level of Care Discussed: Snf Facility Financial Disclosure Provided: Yes Financial Disclosure Comments: Patient Provider List: Snf Facility Provider list within the patient's requested geographic area shared with the patient/family: Yes within: 25 miles of zip code: [address] Quality and resource use metrics shared with the patient that are relevant to the patient's goals of care and treatment preferences:: Yes Metrics: Potentially Preventable 30-day Post Discharge Readmission Rates POTENTIAL TRANSITION PLANS Snf Facility/Intermediate Care Facility Per chart review, patient [...] 10 total. Patient request referral placed to [facility] , awaiting responses. CM will continue to follow for medical needs. The patient will be transported home at d/c by friends via private auto. SIGNATURE: Rosaline Keating RN PATIENT NAME: Lakia Rodriguez DATE: August 16, 2020 TIME: 5:29 PM PAGER/CONTACT #: [phone] Normal [facility] CBCon 08-16-2020 Absolute nRBC <0.01 Normal <0.01 [facility] Comment on above: Performed By: #### P HOS, CBC, MG1, BMP ####[facility] [place], [place] [phone] Erythrocyte distribution width (RBC) [Ratio] 14.0 % Normal 11.5-15.0 [facility] Comment on above: Performed By: #### P HOS, CBC, MG1, BMP ####[place] [address], [place] [phone] Hematocrit (Bld) [Volume fraction] 41.1 % Normal 39.0-51.0 [facility] Comment on above: Performed By: #### P HOS, CBC, MG1, BMP ####[place] [address], [place] [phone] Hemoglobin (Bld) [Mass/Vol] 13.5 g/dL Normal 13.0-17.0 [facility] Comment on above: Performed By: #### P HOS, CBC, MG1, BMP ####[place] [address] [place] [phone] MCH 28.8 pG Normal 26.0-34.0 [facility] Comment on above: Performed By: #### P HOS, CBC, MG1, BMP ####[place] [address] [place] [phone] MCHC (RBC) [Mass/Vol] 32.8 g/dL Normal 30.5-36.0 [facility] Comment on above: Performed By: #### P HOS, CBC, MG1, BMP ####[place] [address], [place] [phone] MCV (RBC) [Entitic vol] 87.6 fL Normal 80.0-100.0 [facility] Comment on above: Performed By: #### P HOS, CBC, MG1, BMP ####[place] [address], [place] [phone] Platelet mean volume (Bld) [Entitic vol] 10.4 fL Normal 9.0-12.7 [facility] Comment on above: Performed By: #### P HOS, CBC, MG1, BMP ####[place] [address], [place] [phone] Platelets (Bld) [#/Vol] 195 10*3/uL Normal 150-400 [facility] Comment on above: Performed By: #### P HOS, CBC, MG1, BMP ####[facility] [address] [place], [place] [phone] RBC (Bld) [#/Vol] 4.69 10*6/uL Normal 4.20-6.00 [facility] Comment on above: Performed By: #### P HOS, CBC, MG1, BMP ####[facility] [place], [place] [phone] WBC (Bld) [#/Vol] 5.55 10*3/uL Normal 3.70-11.00 [facility] Comment on above: Performed By: #### P HOS, CBC, MG1, BMP ####[facility] [place], [place] [phone] CNDSon 08-16-2020 DS HNO ID: [id number] Author: Gaby Crowell, [employer].MORNING SHOW HOST Service: General Surgery Author Type: Nurse Practitioner [...] MD GENERAL SURGERY DISCHARGE SUMMARY PATIENT NAME: Lakia Rodriguez ADMISSION DATE: 08/12/2020 DISCHARGE DATE: 08/19/2020 [...] for surgery Anesthesia administration HOSPITAL COURSE: Mr. Lakia Rodriguez is a 69 year old male [...] PATIENT CONDITION AT DISCHARGE: Stable DISCHARGE DISPOSITION: Snf Facility INFORMATION PROVIDED TO PATIENT: Discharge instructions, [...] Care Management (more content not included)... Normal [facility] Magnesiumon 08-16-2020 Magnesium [Mass/Vol] 2.2 mg/dL Normal 1.7-2.3 [facility] Comment on above: Performed By: #### P HOS, CBC, MG1, BMP ####[facility] [address] [place], [place] [phone] NURSING PROGon 08-16-2020 NURSING PROG HNO ID: [id number] Author: Bee Gracia RN Service: ? Author Type: Registered Nurse Type: Nursing Progress Note Filed: 08/16/2020 6:16 PM Note Text: Problem(s) / Intervention(s) PATIENT NAME: Lakia Rodriguez The patient complained of dizziness, shaking, and numbness and tingling in both hands and fingers. These are all new symptoms according to the patient. The following intervention(s) were initiated : Vitals were taken and stable. Blood Sugar was also taken and blood glucose is 162. Gen. Surg transplant nurse practitioner made aware and requested to come and see the patient. The following observation(s) were made: Patient is up in the chair. Will continue to monitor the patient. This note was completed by: Bee Gracia Normal [facility] Phosphoruson 08-16-2020 Phosphate [Mass/Vol] 3.4 mg/dL Normal 2.7-4.8 [facility] Comment on above: Performed By: #### P HOS, CBC, MG1, BMP ####[facility] [address] [place], [place] [phone] THERAPY NTon 08-16-2020 THERAPY NT HNO ID: [id number] Author: Ynes Sorto, KYLE/SOLDER MAKING LABORER Service: Speech/Swallow Author Type: Speech Language Pathologist Type: Therapy (PT/OT/Speech/Resp) Filed: 08/16/2020 12:06 PM Note Text: [facility] Speech Pathology Consult BEDSIDE SWALLOWING EVALUATION [...] questions or concerns. Ynes Sorto M.A. [facility]-SOLDER MAKING LABORER Speech Language Pathology Cell/Pager: [phone] DIAGNOSIS/HISTORY (per HANDP): Lakia Rodriguez is a 69 year old male [...] EXTRACTION DATE OF ADMISSION: 08/12/2020 CURRENT LOCATION: [facility] 001/H051-02 HEARING STATUS: Within functional limits BEHAVIORAL OBSERVATIONS: [...] served plain (more content not included)... 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 Normal [facility] Basic Metabolic Panlon 08-15 Anion gap [Moles/Vol] 12 mmol/L Normal 9-18 [facility] Comment on above: Performed By: #### C DONALDO BMP ####[facility] [place], [place] [phone] Calcium [Mass/Vol] 9.2 mg/dL Normal 8.5-10.2 [facility] Comment on above: Performed By: #### C BCJOHNF, BMP ####[facility] [address] [place], [place] [phone] Chloride [Moles/Vol] 98 mmol/L Normal 97-105 [facility] Comment on above: Performed By: #### C BCGUSTAVO, BMP ####[facility] [place], [place] [phone] CO2 [Moles/Vol] 25 mmol/L Normal 22-30 [facility] Comment on above: Performed By: #### C BCGUSTAVO, BMP ####[facility], [place] [phone] Creatinine [Mass/Vol] 1.05 mg/dL Normal 0.73-1.22 [facility] Comment on above: Performed By: #### C DONALDO, KOBI ####[facility] [place], [place] [phone] eGFR- Amer. >60 Normal [facility] Comment on above: Performed By: #### C DONALDO, KOBI ####[address] [phone] eGFR-All Other Races >60 Normal [facility] Comment on above: Result Comment: eGFR [...] GFR. Performed By: #### C KOBI FULTON ####[address] [phone] Glucose [Mass/Vol] 132 mg/dL High 74-99 [facility] Comment on above: Result Comment: The [place] Diabetes Association (ADA) provides guidance for cutoff [...] Standards of Medical Care in Diabetes 2016, [place] [employer]. Diabetes Care. 2016.39(Suppl 1). Performed By: #### C DONALDO BMP ####[place] [address], [place] [phone] Potassium [Moles/Vol] 4.6 mmol/L Normal 3.7-5.1 [facility] Comment on above: Performed By: #### C DONALDO, BMP ####[address] [place], [place] [phone] Sodium [Moles/Vol] 135 mmol/L Low 136-144 [facility] Comment on above: Performed By: #### C DONALDO, BMP ####[place] [address], [place] [phone] Urea nitrogen [Mass/Vol] 17 mg/dL Normal 9-24 [facility] Comment on above: Performed By: #### C DONALDO, BMP ####[place] [address] [place], [place] [phone] CBC and Differentialon 08-15 Abs Baso 0.03 k/uL Normal <0.11 [facility] Comment on above: Performed By: #### C DONALDO, BMP ####[place] [address] [place], [place] [phone] Abs Marinette 0.79 k/uL Normal <0.87 [facility] Comment on above: Performed By: #### C DONALDO, BMP ####[place] [address], [place] [phone] Abs Neut 6.67 k/uL Normal 1.45-7.50 [facility] Comment on above: Performed By: #### C BCJOHNF, BMP ####[place] [address], [place] [phone] Absolute nRBC <0.01 Normal <0.01 [facility] Comment on above: Performed By: #### C BCDIF, BMP ####[facility] AveClevelandBrent [place] [phone] Basophils/100 WBC (Bld) 0.4 % Normal [facility] Comment on above: Performed By: #### C BCDIF, BMP ####[place] [address]levelJosh[address] [phone] DTYPE Auto Diff Normal [facility] Comment on above: Performed By: #### C BCDIF, BMP ####[place] [address]level[address] [phone] Eosinophils (Bld) [#/Vol] 0.06 10*3/uL Normal <0.46 [facility] Comment on above: Performed By: #### C BCDIF, BMP ####[place] [address]levelJosh[address] [place] [phone] Eosinophils/100 WBC (Bld) 0.7 % Normal [facility] Comment on above: Performed By: #### C BCDIF, BMP ####[place] [address] [place] [phone] Erythrocyte distribution width (RBC) [Ratio] 13.9 % Normal 11.5-15.0 [facility] Comment on above: Performed By: #### C BCDIF, BMP ####[place] [address]leveland[address] [place] [phone] Hematocrit (Bld) [Volume fraction] 42.6 % Normal 39.0-51.0 [facility] Comment on above: Performed By: #### C BCDIF, BMP ####[place] [address] [place] [phone] Hemoglobin (Bld) [Mass/Vol] 14.2 g/dL Normal 13.0-17.0 [facility] Comment on above: Performed By: #### C BCDIF, BMP ####[place] [address] [place] [phone] Lymphocytes (Bld) [#/Vol] 0.84 10*3/uL Low 1.00-4.00 [facility] Comment on above: Performed By: #### C BCDIF, BMP ####[place] [address], [place] [phone] Lymphocytes/100 WBC (Bld) 10.0 % Normal [facility] Comment on above: Performed By: #### C BCDIF, BMP ####[place] [address] [place] [phone] MCH 29.2 pG Normal 26.0-34.0 [facility] Comment on above: Performed By: #### C BCDIF, BMP ####[address] [phone] MCHC (RBC) [Mass/Vol] 33.3 g/dL Normal 30.5-36.0 [facility] Comment on above: Performed By: #### C BCDIF, BMP ####[place] [phone] MCV (RBC) [Entitic vol] 87.5 fL Normal 80.0-100.0 [facility] Comment on above: Performed By: #### C BCDIF, BMP ####[place] [address] [place] [phone] Monocytes/100 WBC (Bld) 9.4 % Normal [facility] Comment on above: Performed By: #### C BCDIF, BMP ####[place] [address], [place] [phone] Neutrophils/100 WBC (Bld) 79.5 % Normal [facility] Comment on above: Performed By: #### C BCDIF, BMP ####[place] [address] [place] [phone] NRBCs 0.0 /100 WBC Normal 0 [facility] Comment on above: Performed By: #### C BCDIF, BMP ####[place] [address], [place] [phone] Platelet mean volume (Bld) [Entitic vol] 10.3 fL Normal 9.0-12.7 [facility] Comment on above: Performed By: #### C BCDIF, BMP ####[address] [place], [place] [phone] Platelets (Bld) [#/Vol] 197 10*3/uL Normal 150-400 [facility] Comment on above: Performed By: #### C BCDIF, BMP ####[place] [address], [place] [phone] RBC (Bld) [#/Vol] 4.87 10*6/uL Normal 4.20-6.00 [facility] Comment on above: Performed By: #### C BCDIF, BMP ####[facility], [place] [phone] WBC (Bld) [#/Vol] 8.39 10*3/uL Normal 3.70-11.00 [facility] Comment on above: Performed By: #### C BCDIF, BMP ####[address] [place], [place] [phone] THERAPY NTon 08-15-2020 THERAPY NT HNO ID: [id number] Author: Fina Boyle, TAYLOR Service: Physical Therapy Author Type: Physical Therapist Type: Therapy (PT/OT/Speech/Resp) Filed: 08/15/2020 3:37 PM Note Text: Physical Therapy Treatment SERVICE DATE: 08/15/2020 SERVICE TIME: 1353 to 1418 ROOM: [place] [address] Recommended Discharge Disposition: Home PT Recommended Discharge [...] Bed/Bath: 0 Tub/Shower Type: walk-in Laundry: I 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 Prior Functional Level: Within Functional Limits Prior [...] Diagnosis: Reduced mobility-other Interventions Provided: Therapeutic Activity (90966);Gait Training (14480) Therapeutic Activity (22692) Treatment Minutes: 10 $ Therapeutic Activity (24256) Billed Units: 1 unit Gait Training (63675) Treatment Minutes: 15 $ Gait Training (93506) Billed Units: 1 unit Training AND education [...] SIGNATURE: Fina Boyle PT, DPT PATIENT NAME: Lakia Rodriguez DATE: August 15, 2020 TIME: 3:37 PM Normal [facility] Basic Metabolic Panlon 08-14 Anion gap [Moles/Vol] 10 mmol/L Normal 9-18 [facility] Comment on above: Performed By: #### C BCDIF, BMP, PHOS ####[facility] [address], [place] [phone] Calcium [Mass/Vol] 9.3 mg/dL Normal 8.5-10.2 [facility] Comment on above: Performed By: #### C BCDIF, BMP, PHOS ####[facility] [address], [place] [phone] Chloride [Moles/Vol] 100 mmol/L Normal 97-105 [facility] Comment on above: Performed By: #### C BCDIF, BMP, PHOS ####[facility] [address] [place], [place] [phone] CO2 [Moles/Vol] 27 mmol/L Normal 22-30 [facility] Comment on above: Performed By: #### C KOBI FULTON PHOS ####[facility] [place], [place] [phone] Creatinine [Mass/Vol] 1.15 mg/dL Normal 0.73-1.22 [facility] Comment on above: Performed By: #### C KOBI FULTON PHOS ####[facility] [place], [place] [phone] eGFR- Amer. >60 Normal [facility] Comment on above: Performed By: #### C KOBI FULTON PHOS ####[facility], [place] [phone] eGFR-All Other Races >60 Normal [facility] Comment on above: Result Comment: eGFR [...] Performed By: #### C KOBI FULTON PHOS ####[facility] [place], [place] [phone] Glucose [Mass/Vol] 148 mg/dL High 74-99 [facility] Comment on above: Result Comment: The [place] [employer] (ADA) provides guidance for cutoff [...] Standards of Medical Care in Diabetes 2016, [place] [employer]. Diabetes Care. 2016.39(Suppl 1). Performed By: #### C BCDIF, BMP, PHOS ####[facility], [place] [phone] Potassium [Moles/Vol] 4.3 mmol/L Normal 3.7-5.1 [facility] Comment on above: Performed By: #### C BCDIF, BMP, PHOS ####[place] [address], [place] [phone] Sodium [Moles/Vol] 137 mmol/L Normal 136-144 [facility] Comment on above: Performed By: #### C BCDIF, BMP, PHOS ####[place] [address] [place], [place] [phone] Urea nitrogen [Mass/Vol] 17 mg/dL Normal 9-24 [facility] Comment on above: Performed By: #### C BCDIF, BMP, PHOS ####[facility] [place], [place] [phone] Anion gap [Moles/Vol] 7 mmol/L Low 9-18 [facility] Comment on above: Performed By: #### M G1, BMP, PHOS, CBCDIF ####[facility], [place] [phone] Calcium [Mass/Vol] 9.2 mg/dL Normal 8.5-10.2 [facility] Comment on above: Performed By: #### M G1, BMP, PHOS, CBCDIF ####[facility] [place], [place] [phone] Chloride [Moles/Vol] 100 mmol/L Normal 97-105 [facility] Comment on above: Performed By: #### M G1, BMP, PHOS, CBCDIF ####[facility], [place] [phone] CO2 [Moles/Vol] 30 mmol/L Normal 22-30 [facility] Comment on above: Performed By: #### M G1, BMP, PHOS, CBCDIF ####[place] [address] [place], [place] [phone] Creatinine [Mass/Vol] 1.13 mg/dL Normal 0.73-1.22 [facility] Comment on above: Performed By: #### M G1, BMP, PHOS, CBCDIF ####[facility], [place] [phone] eGFR- Amer. >60 Normal [facility] Comment on above: Performed By: #### M G1, BMP, PHOS, CBCDIF ####[facility], [place] [phone] eGFR-All Other Races >60 Normal [facility] Comment on above: Result Comment: eGFR [...] By: #### M G1, BMP, PHOS, CBCDIF ####[facility], [place] [phone] Glucose [Mass/Vol] 131 mg/dL High 74-99 [facility] Comment on above: Result Comment: The [place] [employer] (ADA) provides guidance for cutoff [...] Standards of Medical Care in Diabetes 2016, [place] [employer]. Diabetes Care. 2016.39(Suppl 1). Performed By: #### M G1, BMP, PHOS, CBCDIF ####[facility], [place] [phone] Potassium [Moles/Vol] 4.4 mmol/L Normal 3.7-5.1 [facility] Comment on above: Performed By: #### M G1, BMP, PHOS, CBCDIF ####[place] [address], [place] [phone] Sodium [Moles/Vol] 137 mmol/L Normal 136-144 [facility] Comment on above: Performed By: #### M G1, BMP, PHOS, CBCDIF ####[facility] [place], [place] [phone] Urea nitrogen [Mass/Vol] 17 mg/dL Normal 9-24 [facility] Comment on above: Performed By: #### M G1, BMP, PHOS, CBCDIF ####[facility] [place], [place] [phone] CBC and Differentialon 08-14 Abs Baso <0.03 Normal <0.11 [facility] Comment on above: Performed By: #### C BCDIF, BMP, PHOS ####[facility], [place] [phone] Abs Eosin <0.03 Normal <0.46 [facility] Comment on above: Performed By: #### C BCDIF, BMP, PHOS ####[facility], [place] [phone] Abs Marinette 0.75 k/uL Normal <0.87 [facility] Comment on above: Performed By: #### C BCDIF, BMP, PHOS ####[place] [address]CB[address] [place] [phone] Abs Neut 7.52 k/uL High 1.45-7.50 [facility] Comment on above: Performed By: #### C BCDIF, BMP, PHOS ####[place] [address], [place] [phone] Absolute nRBC <0.01 Normal <0.01 [facility] Comment on above: Performed By: #### C BCDIF, BMP, PHOS ####[place] [address]CB[address] [place] [phone] Basophils/100 WBC (Bld) 0.1 % Normal [facility] Comment on above: Performed By: #### C BCDIF, BMP, PHOS ####[place] [address] [place] [phone] DTYPE Auto Diff Normal [facility] Comment on above: Performed By: #### C BCDIF, BMP, PHOS ####[place] [address] [place] [phone] Eosinophils/100 WBC (Bld) 0.2 % Normal [facility] Comment on above: Performed By: #### C BCDIF, BMP, PHOS ####[place] [address] [place] [phone] Erythrocyte distribution width (RBC) [Ratio] 14.0 % Normal 11.5-15.0 [facility] Comment on above: Performed By: #### C BCDIF, BMP, PHOS ####[place] [address] [place] [phone] Hematocrit (Bld) [Volume fraction] 41.8 % Normal 39.0-51.0 [facility] Comment on above: Performed By: #### C BCKOBI CHEN, PHOS ####[place] [address] [place], [place] [phone] Hemoglobin (Bld) [Mass/Vol] 13.8 g/dL Normal 13.0-17.0 [facility] Comment on above: Performed By: #### C BCDIF BMP, PHOS ####[address]Kay[address] [place] [phone] Lymphocytes (Bld) [#/Vol] 0.56 10*3/uL Low 1.00-4.00 [facility] Comment on above: Performed By: #### C BCKOBI CHEN, PHOS ####[address]Kay[address] [place] [phone] Lymphocytes/100 WBC (Bld) 6.3 % Normal [facility] Comment on above: Performed By: #### C BCJOHNFKOBI, PHOS ####[place] [phone] MCH 29.0 pG Normal 26.0-34.0 [facility] Comment on above: Performed By: #### C BCDIFKOBI, PHOS ####[place] [address] [place] [phone] MCHC (RBC) [Mass/Vol] 33.0 g/dL Normal 30.5-36.0 [facility] Comment on above: Performed By: #### C BCDIF BMP, PHOS ####[place] [address] [place] [phone] MCV (RBC) [Entitic vol] 87.8 fL Normal 80.0-100.0 [facility] Comment on above: Performed By: #### C BCDIF BMP, PHOS ####[place] [address]ClevelA[address], [place] [phone] Monocytes/100 WBC (Bld) 8.5 % Normal [facility] Comment on above: Performed By: #### C BCDIF, BMP, PHOS ####[place] [address]ClevelA[address], [place] [phone] Neutrophils/100 WBC (Bld) 84.9 % Normal [facility] Comment on above: Performed By: #### C BCDIF, BMP, PHOS ####[place] [address]ClevelJoshua [place] [phone] NRBCs 0.0 /100 WBC Normal 0 [facility] Comment on above: Performed By: #### C BCDIF, BMP, PHOS ####[place] [address]ClevelA[address], [place] [phone] Platelet mean volume (Bld) [Entitic vol] 10.1 fL Normal 9.0-12.7 [facility] Comment on above: Performed By: #### C BCDIF, BMP, PHOS ####[place] [address]ClevelJosh[address] [place] [phone] Platelets (Bld) [#/Vol] 184 10*3/uL Normal 150-400 [facility] Comment on above: Performed By: #### C BCDIF, BMP, PHOS ####[place] [address]ClevelA[address], [place] [phone] RBC (Bld) [#/Vol] 4.76 10*6/uL Normal 4.20-6.00 [facility] Comment on above: Performed By: #### C BCDIF, BMP, PHOS ####[place] [address], [place] [phone] WBC (Bld) [#/Vol] 8.86 10*3/uL Normal 3.70-11.00 [facility] Comment on above: Performed By: #### C BCDIF, BMP, PHOS ####[place] [address] [place] [phone] Abs Baso <0.03 Normal <0.11 [facility] Comment on above: Performed By: #### M G1, BMP, PHOS, CBCDIF ####[place] [address] [place] [phone] Abs Eosin <0.03 Normal <0.46 [facility] Comment on above: Performed By: #### M G1, BMP, PHOS, CBCDIF ####[place] [address] [place] [phone] Abs Marinette 0.73 k/uL Normal <0.87 [facility] Comment on above: Performed By: #### M G1, BMP, PHOS, CBCDIF ####[place] [address] [place] [phone] Abs Neut 6.19 k/uL Normal 1.45-7.50 [facility] Comment on above: Performed By: #### M G1, BMP, PHOS, CBCDIF ####[place] [address] [place] [phone] Absolute nRBC <0.01 Normal <0.01 [facility] Comment on above: Performed By: #### M G1, BMP, PHOS, CBCDIF ####[place] [address] [place] [phone] Basophils/100 WBC (Bld) 0.3 % Normal [facility] Comment on above: Performed By: #### M G1, BMP, PHOS, CBCDIF ####[place] [address] [place] [phone] DTYPE Auto Diff Normal [facility] Comment on above: Performed By: #### M G1, BMP, PHOS, CBCDIF ####[place] [address], [place] [phone] Eosinophils/100 WBC (Bld) 0.3 % Normal [facility] Comment on above: Performed By: #### M G1, BMP, PHOS, CBCDIF ####[place] [address], [place] [phone] Erythrocyte distribution width (RBC) [Ratio] 14.1 % Normal 11.5-15.0 [facility] Comment on above: Performed By: #### M G1, BMP, PHOS, CBCDIF ####[place] [address], [place] [phone] Hematocrit (Bld) [Volume fraction] 41.3 % Normal 39.0-51.0 [facility] Comment on above: Performed By: #### M G1, BMP, PHOS, CBCDIF ####[place] [address], [place] [phone] Hemoglobin (Bld) [Mass/Vol] 13.7 g/dL Normal 13.0-17.0 [facility] Comment on above: Performed By: #### M G1, BMP, PHOS, CBCDIF ####[place] [address], [place] [phone] Lymphocytes (Bld) [#/Vol] 0.80 10*3/uL Low 1.00-4.00 [facility] Comment on above: Performed By: #### M G1, BMP, PHOS, CBCDIF ####[place] [address], [place] [phone] Lymphocytes/100 WBC (Bld) 10.3 % Normal [facility] Comment on above: Performed By: #### M G1, BMP, PHOS, CBCDIF ####[place] [address] AveClevelAyn[place], [place] [phone] MCH 29.0 pG Normal 26.0-34.0 [facility] Comment on above: Performed By: #### M G1, BMP, PHOS, CBCDIF ####[facility]ClevelA[address], [place] [phone] MCHC (RBC) [Mass/Vol] 33.2 g/dL Normal 30.5-36.0 [facility] Comment on above: Performed By: #### M G1, BMP, PHOS, CBCDIF ####[place] [address]CB[address] [place] [phone] MCV (RBC) [Entitic vol] 87.3 fL Normal 80.0-100.0 [facility] Comment on above: Performed By: #### M G1, BMP, PHOS, CBCDIF ####[place] [address], [place] [phone] Monocytes/100 WBC (Bld) 9.4 % Normal [facility] Comment on above: Performed By: #### M G1, BMP, PHOS, CBCDIF ####[place] [address], [place] [phone] MPV Unable to report Normal 9.0-12.7 [facility] Comment on above: Performed By: #### M G1, BMP, PHOS, CBCDIF ####[place] [address], [place] [phone] Neutrophils/100 WBC (Bld) 79.7 % Normal [facility] Comment on above: Performed By: #### M G1, BMP, PHOS, CBCDIF ####[facility], [place] [phone] NRBCs 0.0 /100 WBC Normal 0 [facility] Comment on above: Performed By: #### M G1, BMP, PHOS, CBCDIF ####[facility], [place] [phone] Platelet Count Platelets Clumped, Estimate Normal Normal 150-400 [facility] Comment on above: Result Comment: Resu lt checked and verified No clot detected. Platelet count confirmed by manual review of peripheral blood smear. Performed By: #### M G1, BMP, PHOS, CBCDIF ####[facility], [place] [phone] RBC (Bld) [#/Vol] 4.73 10*6/uL Normal 4.20-6.00 [facility] Comment on above: Performed By: #### M G1, BMP, PHOS, CBCDIF ####[place] [address], [place] [phone] WBC (Bld) [#/Vol] 7.76 10*3/uL Normal 3.70-11.00 [facility] Comment on above: Performed By: #### M G1, BMP, PHOS, CBCDIF ####[place] [address] [place], [place] [phone] Magnesiumon 08-14-2020 Magnesium [Mass/Vol] 2.3 mg/dL Normal 1.7-2.3 [facility] Comment on above: Performed By: #### M G1 ####[place] [address]San [place], [place] [phone] Magnesium [Mass/Vol] 2.2 mg/dL Normal 1.7-2.3 [facility] Comment on above: Performed By: #### M G1, BMP, PHOS, CBCDIF ####[facility], [place] [phone] Phosphoruson 08-14-2020 Phosphate [Mass/Vol] 2.1 mg/dL Low 2.7-4.8 [facility] Comment on above: Performed By: #### C BCDIF, BMP, PHOS ####[facility], [place] [phone] Phosphate [Mass/Vol] 2.6 mg/dL Low 2.7-4.8 [facility] Comment on above: Performed By: #### M G1, BMP, PHOS, CBCDIF ####[facility] [address] [place], [place] [phone] ANES Shanelle 08-13-2020 ANES POST HNO ID: [id number] Author: Tristan Orellana DO Service: Anesthesiology Author [...] Remarks: SIGNATURE: Tristan Orellana DO PATIENT NAME: Lakia Rodriguez DATE: August 13, 2020 TIME: 2:11 PM PAGER/CONTACT #: [phone] Normal [facility] Basic Metabolic Panlon 08-13 Anion gap [Moles/Vol] 12 mmol/L Normal 9-18 [facility] Comment on above: Performed By: #### C DONALDO PHOS, BMP ####[facility] [place] [phone] Calcium [Mass/Vol] 9.2 mg/dL Normal 8.5-10.2 [facility] Comment on above: Performed By: #### C DONALDO PHOS, BMP ####[facility]CBet[address] [place] [phone] Chloride [Moles/Vol] 100 mmol/L Normal 97-105 [facility] Comment on above: Performed By: #### C BCGUSTAVO PHOS, BMP ####[place] [address] [place] [phone] CO2 [Moles/Vol] 21 mmol/L Low 22-30 [facility] Comment on above: Performed By: #### C BCGUSTAVO PHOS, BMP ####[facility] [place] [phone] Creatinine [Mass/Vol] 1.20 mg/dL Normal 0.73-1.22 [facility] Comment on above: Performed By: #### C BCGUSTAVO PHOS, BMP ####[facility] [place] [phone] eGFR- Amer. >60 Normal [facility] Comment on above: Performed By: #### C BCGUSTAVO PHOS, BMP ####[place] [address]CB[address] [place] [phone] eGFR-All Other Races >60 Normal [facility] Comment on above: Result Comment: eGFR [...] Performed By: #### C MERNA FULTON BMP ####[facility] [place], [place] [phone] Glucose [Mass/Vol] 149 mg/dL High 74-99 [facility] Comment on above: Result Comment: The [place] [employer] (ADA) provides guidance for cutoff [...] Standards of Medical Care in Diabetes 2016, [place] [employer]. Diabetes Care. 2016.39(Suppl 1). Performed By: #### C MERNA FULTON BMP ####[place] [address] [place], [place] [phone] Potassium Unable to assay due to interference from hemolysis. Suggest reorder as clinically indicated. Normal 3.7-5.1 [facility] Comment on above: Result Comment: Call ed to and read back by: BLAKE SHAH [id number] 08/13/2020 BR[place]LEY Performed By: #### C MERNA FULTON BMP ####[facility] [place], [place] [phone] Sodium [Moles/Vol] 133 mmol/L Low 136-144 [facility] Comment on above: Performed By: #### C MERNA FULTON BMP ####[facility] [place] [phone] Urea nitrogen [Mass/Vol] 20 mg/dL Normal 9-24 [facility] Comment on above: Performed By: #### C DONALDO PHOS, BMP ####[facility], [place] [phone] CBC and Differentialon 08-13 Abs Baso <0.03 Normal <0.11 [facility] Comment on above: Performed By: #### C BCGUSTAVO PHOS, BMP ####[place] [address]CB[address] [place] [phone] Abs Eosin <0.03 Normal <0.46 [facility] Comment on above: Performed By: #### C BCGUSTAVO PHOS, BMP ####[place] [address] [place] [phone] Abs Marinette 0.96 k/uL High <0.87 [facility] Comment on above: Performed By: #### C BCGUSTAVO PHOS, BMP ####[place] [address] [place] [phone] Abs Neut 12.86 k/uL High 1.45-7.50 [facility] Comment on above: Performed By: #### C BCGUSTAVO PHOS, BMP ####[place] [address] [place] [phone] Absolute nRBC <0.01 Normal <0.01 [facility] Comment on above: Performed By: #### C BCDISol PHOS, BMP ####[place] [address] [place] [phone] Basophils/100 WBC (Bld) 0.1 % Normal [facility] Comment on above: Performed By: #### C BCDISol PHOS, BMP ####[place] [address] [place] [phone] DTYPE Auto Diff Normal [facility] Comment on above: Performed By: #### C TANIA FULTONS, BMP ####[place] [address] [place] [phone] Eosinophils/100 WBC (Bld) 0.0 % Normal [facility] Comment on above: Performed By: #### C DONALDO PHOS, BMP ####[place] [address] [place] [phone] Erythrocyte distribution width (RBC) [Ratio] 13.7 % Normal 11.5-15.0 [facility] Comment on above: Performed By: #### C MERNA FULTON, BMP ####[place] [address] [place] [phone] Hematocrit (Bld) [Volume fraction] 44.0 % Normal 39.0-51.0 [facility] Comment on above: Performed By: #### C MERNA FULTON, BMP ####[place] [address] [place] [phone] Hemoglobin (Bld) [Mass/Vol] 14.6 g/dL Normal 13.0-17.0 [facility] Comment on above: Performed By: #### C MERNA FULTON, BMP ####[place] [address] [place] [phone] Lymphocytes (Bld) [#/Vol] 0.49 10*3/uL Low 1.00-4.00 [facility] Comment on above: Performed By: #### C DONALDO PHOS, BMP ####[place] [address]ClevelJosh[address] [place] [phone] Lymphocytes/100 WBC (Bld) 3.4 % Normal [facility] Comment on above: Performed By: #### C DONALDO PHOS, BMP ####[place] [address]ClevelJosh[address] [place] [phone] MCH 29.2 pG Normal 26.0-34.0 [facility] Comment on above: Performed By: #### C MERNA FULTON, BMP ####[facility]CB[address] [place] [phone] MCHC (RBC) [Mass/Vol] 33.2 g/dL Normal 30.5-36.0 [facility] Comment on above: Performed By: #### C MERNA FULTON, BMP ####[place] [address] [place] [phone] MCV (RBC) [Entitic vol] 88.0 fL Normal 80.0-100.0 [facility] Comment on above: Performed By: #### C MERNA FULTON, BMP ####[place] [address] [place] [phone] Monocytes/100 WBC (Bld) 6.7 % Normal [facility] Comment on above: Performed By: #### C MERNA FULTON, BMP ####[place] [address] [place] [phone] Neutrophils/100 WBC (Bld) 89.8 % Normal [facility] Comment on above: Performed By: #### C MERNA FULTON, BMP ####[place] [address]ClevelA[place], [place] [phone] NRBCs 0.0 /100 WBC Normal 0 [facility] Comment on above: Performed By: #### C MERNA FULTON, BMP ####[facility]ClevelA[address], [place] [phone] Platelet mean volume (Bld) [Entitic vol] 10.2 fL Normal 9.0-12.7 [facility] Comment on above: Performed By: #### C DONALDO PHOS, BMP ####[place] [address]levelJosh[address] [place] [phone] Platelets (Bld) [#/Vol] 200 10*3/uL Normal 150-400 [facility] Comment on above: Performed By: #### C DONALDO PHOS, BMP ####[address] [phone] RBC (Bld) [#/Vol] 5.00 10*6/uL Normal 4.20-6.00 [facility] Comment on above: Performed By: #### C BCGUSTAVO PHOS, BMP ####[address] [place], [place] [phone] WBC (Bld) [#/Vol] 14.32 10*3/uL High 3.70-11.00 [facility] Comment on above: Performed By: #### C DONALDO PHOS, BMP ####[address] [phone] Magnesiumon 08-13-2020 Magnesium [Mass/Vol] 2.0 mg/dL Normal 1.7-2.3 [facility] Comment on above: Performed By: #### M G1 ####[address] [phone] Phosphoruson 08-13-2020 Phosphate [Mass/Vol] 2.9 mg/dL Normal 2.7-4.8 [facility] Comment on above: Performed By: #### C BCGUSTAVO PHOS, BMP ####[address] [phone] Potassiumon 08-13-2020 Potassium [Moles/Vol] 4.7 mmol/L Normal 3.7-5.1 [facility] Comment on above: Performed By: #### K 1 ####[facility] [place], [place] [phone] THERAPY NTon 08-13-2020 THERAPY NT HNO ID: [id number] Author: Arlin Mantilla PT Service: Physical Therapy Author Type: Physical Therapist Type: Therapy (PT/OT/Speech/Resp) Filed: 08/13/2020 4:38 PM Note Text: Physical Therapy Evaluation SERVICE DATE: 08/13/2020 SERVICE TIME: 1550 to 1620 ROOM: [place] [address] Recommended Discharge Disposition: Subacute/SNF Recommended Discharge Disposition [...] Bed/Bath: 0 Tub/Shower Type: walk-in Laundry: I 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 Prior Functional Level: Within Functional Limits Prior [...] Antalgic gait;Shania decreased;Flexed trunk posture;Lateral sway increased -HLM: 7: Walk 25 feet or more Learning/Educational [...] Diagnosis: Reduced mobility-other Interventions Provided: Evaluation;Therapeutic Activity (74014);Gait Training (14863) $ Evaluation-Low (90479) Billed Units: 1 unit Therapeutic Activity (78521) Treatment Minutes: 5 $ Therapeutic Activity (04197) Billed Units: 0 units Gait Training (07089) Treatment Minutes: 10 $ Gait Training (33048) Billed Units: 1 unit Training AND education [...] evaluation/treatment. SIG (more content not included)... 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 Pt reported has A to care for [...] Level Ad (more content not included)... Normal [facility] THERAPY NT HNO ID: [id number] Author: Alyse Henson OT/L Service: Occupational Therapy Author Type: Occupational Therapist Type: Therapy (PT/OT/Speech/Resp) Filed: 08/13/2020 10:51 AM Note Text: OCCUPATIONAL THERAPY MISSED VISIT SERVICE DATE: 08/13/2020 SERVICE TIME: 1048 to 1048 ROOM: [place] [address] Attempted Evaluation. Patient not seen due to Another service at bedside. PT at bedside. Will re-attempt as able. SIGNATURE: Alyse Henson OT/L PATIENT NAME: Lakai Rodriguez DATE: August 13, 2020 TIME: 10:51 AM Normal [facility] THERAPY NT HNO ID: [id number] Author: Arlin Mantilla PT Service: Physical Therapy Author Type: Physical Therapist Type: Therapy (PT/OT/Speech/Resp) Filed: 08/13/2020 10:49 AM Note Text: PHYSICAL THERAPY MISSED VISIT SERVICE DATE: 08/13/2020 SERVICE TIME: 1048 to 1048 ROOM: [place] [address] Attempted Evaluation. Patient not seen due to Declined. Pt requesting PT to reattempt after lunch. PT will reattempt as able and appropriate. SIGNATURE: Arlin Mantilla PT PATIENT NAME: Lakia Rodriguez DATE: August 13, 2020 TIME: 10:49 AM Normal [facility] XR ABDOMEN 1V SUPINEon 08-13 XR ABDOMEN [...] bases are clear. IMPRESSION: No dilated bowel. 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: PSCB Transcribe Date/Time: Aug 13 2020 12:32P Dictated by : YRN ARROYO MD This examination was interpreted and the report reviewed and electronically signed by: YRN ARROYO MD on Aug 13 2020 12:33PM EST [id number] Normal [facility] ALLIED HEALTHon 08-12-2020 ALLIED HEALTH HNO ID: [id number] Author: Chaplain Stephanie Student Service: Spiritual Care Author Type: Student Type: Allied Health Filed: 08/12/2020 8:52 AM Note Text: SPIRITUAL CARE Spiritual Care Visit Record Name: Lakia Rodriguez Date: August 12, 2020 Type of Visit: Preoperative Prayer/Visit Visit was with (pt, family, other) and name(s): patient. Ministry Provided During Visit: Prayer / Meditation Notes: Blooming Mill Supervisor responded to a request for pre-surgery prayer. Pt appeared to be a good spirits, expressed optimism and gratitude about his surgery. [employer] Supervisor offered prayer and invited Pt to further utilize [facility] services in needed. Referrals: No referral made Will See: As Needed Only Follow-up Notes: Informed patient of [employer] Supervisor availability [employer] Supervisor Signature: Chaplain Stephanie Student To contact the Spiritual Care Department: Please call [phone] or Page the On-Call Blooming [employer] Supervisor at pager [phone] Thank you for the opportunity to be of service. This is an electronically created document. IF PRINTED, PLEASE DO NOT REMOVE FROM THE CHART OR MODIFY PRINTED COPY. Normal [facility] BRIEF OP NOTon 08-12-2020 BRIEF OP NOT HNO ID: [id number] Author: Cassius Gatica MD Service: General Surgery Author Type: Resident Type: Brief Op Note Filed: 08/12/2020 11:53 AM Note Text: BRIEF OP NOTE LOG ID: [id number] Surgery/Procedure Date: 08/12/2020 Incision/Procedure Start Time: 9:21 AM Incision Close/Procedure End Time: 11:36 AM Surgeon(s)/Procedurali st(s) and Site Acquisition Specialist(s): Surgeon(s) and Role: * Felicia Amaya MD [...] Same SIGNATURE: Cassius Gatica MD PATIENT NAME: Lakia Rodriguez DATE: August 12, 2020 TIME: 11:50 AM PAGER/CONTACT #: [phone] [facility] NURSING PROGon 08-12-2020 NURSING PROG HNO ID: [id number] Author: Alee Baxter RN Service: ? Author Type: Registered Nurse Type: Nursing Progress Note Filed: 08/12/2020 7:53 AM Note Text: Nursing Progress Note Patient Name: Lakia Rodrigeuz Patient Location: [place] [address] Orellana-anesthesia and Dr. Amaya-service at [phone]. Pt has a cough, stated he has had the cough for years and it is productive. He also stated he has a sore throat which is not new. Denies fever or recent colds. This note was completed by: Alee Baxter [facility] OPERATIVE NOon 08-12-2020 OPERATIVE NO HNO ID: [id number] Author: Felicia Amaya MD Service: General Surgery Author Type: Physician Type: Operative Report Filed: 08/12/2020 2:55 PM Note Text: OPERATIVE REPORT NAME: Lakia Rodriguez [facility] #: [id number] DATE: August 12, 2020 AGE: [age] year old SURGEON 1: Felicia Amaya MD SURGEON 2: MOLDER MACHINE 1: Adriel Gatica MD MOLDER MACHINE 2: OPERATION: 1. Open right myofascial advancement [...] ERAS Protocol: Yes Felicia Amaya MD Normal [facility] CBC and Differentialon 08-09 Abs Baso <0.03 Normal <0.11 [facility] Comment on above: Performed By: #### C MP, CBCDIF ####[place] [address] [address] [phone] Abs Marinette 0.45 k/uL Normal <0.87 [facility] Comment on above: Performed By: #### C SEAMUS, CBCDIF ####[place] [address] [address] [phone] Abs Neut 3.89 k/uL Normal 1.45-7.50 [facility] Comment on above: Performed By: #### C SEAMUS, CBCDIF ####[facility] [phone] Absolute nRBC <0.01 Normal <0.01 [facility] Comment on above: Performed By: #### C MP, CBCDIF ####[place] [address] [address] [place] [phone] Basophils/100 WBC (Bld) 0.4 % Normal [facility] Comment on above: Performed By: #### C MP, CBCDIF ####[facility] [phone] DTYPE Auto Diff Normal [facility] Comment on above: Performed By: #### C MP, CBCDIF ####[facility] [phone] Eosinophils (Bld) [#/Vol] 0.15 10*3/uL Normal <0.46 [facility] Comment on above: Performed By: #### C MP, CBCDIF ####[place] [address] [address] [place] [phone] Eosinophils/100 WBC (Bld) 2.9 % Normal [facility] Comment on above: Performed By: #### C MP, CBCDIF ####[place] [address] [address] [place] [phone] Erythrocyte distribution width (RBC) [Ratio] 13.3 % Normal 11.5-15.0 [facility] Comment on above: Performed By: #### C MP, CBCDIF ####[place] [address] [address] [place] [phone] Hematocrit (Bld) [Volume fraction] 44.5 % Normal 39.0-51.0 [facility] Comment on above: Performed By: #### C MP, CBCDIF ####[place] [address] [address] [place] [phone] Hemoglobin (Bld) [Mass/Vol] 14.7 g/dL Normal 13.0-17.0 [facility] Comment on above: Performed By: #### C MP, CBCDIF ####[place] [address] [address] [place] [phone] Lymphocytes (Bld) [#/Vol] 0.68 10*3/uL Low 1.00-4.00 [facility] Comment on above: Performed By: #### C MP, CBCDIF ####[facility] [place] [phone] Lymphocytes/100 WBC (Bld) 13.1 % Normal [facility] Comment on above: Performed By: #### C MP, CBCDIF ####[place] [address] [address] [place] [phone] MCH 28.7 pG Normal 26.0-34.0 [facility] Comment on above: Performed By: #### C MP, CBCDIF ####[place] [address] [address], [place] [phone] MCHC (RBC) [Mass/Vol] 33.0 g/dL Normal 30.5-36.0 [facility] Comment on above: Performed By: #### C MP, CBCDIF ####[place] [address] [address], [place] [phone] MCV (RBC) [Entitic vol] 86.9 fL Normal 80.0-100.0 [facility] Comment on above: Performed By: #### C MP, CBCDIF ####[place] [address] [address] [place], [place] [phone] Monocytes/100 WBC (Bld) 8.7 % Normal [facility] Comment on above: Performed By: #### C MP, CBCDIF ####[place] [address] [address], [place] [phone] Neutrophils/100 WBC (Bld) 74.9 % Normal [facility] Comment on above: Performed By: #### C MP, CBCDIF ####[place] [address] [address] [place], [place] [phone] NRBCs 0.0 /100 WBC Normal 0 [facility] Comment on above: Performed By: #### C MP, CBCDIF ####[place] [address] [address], [place] [phone] Platelet mean volume (Bld) [Entitic vol] 10.5 fL Normal 9.0-12.7 [facility] Comment on above: Performed By: #### C MP, CBCDIF ####[place] [address] [address], [place] [phone] Platelets (Bld) [#/Vol] 193 10*3/uL Normal 150-400 [facility] Comment on above: Performed By: #### C MP, CBCDIF ####[place] [address] [place], [place] [phone] RBC (Bld) [#/Vol] 5.12 10*6/uL Normal 4.20-6.00 [facility] Comment on above: Performed By: #### C MP, CBCDIF ####[facility] [place], [place] [phone] WBC (Bld) [#/Vol] 5.19 10*3/uL Normal 3.70-11.00 [facility] Comment on above: Performed By: #### C MP, CBCDIF ####[facility] [place], [place] [phone] [facility] [facility] Nurse Visit (RAIZA) LAKIA RODRIGUEZ ([id number]) 1950 M Date Time Provider Department 08/09/20 [...] Department: GENERAL SURGERY Referring Provider: FELICIA AMAYA [[id number]] Allergies As of Date: 08/09/2020 Noted Allergy [...] by LEDY JOHNS RN on 08/09/20 Normal [facility] Comp Metabolic Panelon 08-09 Albumin [Mass/Vol] 4.0 g/dL Normal 3.9-4.9 [facility] Comment on above: Performed By: #### C SEAMUS CBCDIF ####[facility] [address] [place], [place] [phone] ALP [Catalytic activity/Vol] 121 U/L High 38-113 [facility] Comment on above: Performed By: #### C SEAMUS CBCDIF ####[facility], [place] [phone] ALT [Catalytic activity/Vol] 57 U/L High 10-54 [facility] Comment on above: Performed By: #### C MP, CBCDIF ####[facility], [place] [phone] Anion gap [Moles/Vol] 8 mmol/L Low 9-18 [facility] Comment on above: Performed By: #### C MP, CBCDIF ####[place] [address], [place] [phone] AST [Catalytic activity/Vol] 66 U/L High 14-40 [facility] Comment on above: Performed By: #### C MP, CBCDIF ####[place] [address] [address], [place] [phone] Bilirubin [Mass/Vol] 0.5 mg/dL Normal 0.2-1.3 [facility] Comment on above: Performed By: #### C MP, CBCDIF ####[place] [address] [address], [place] [phone] Calcium [Mass/Vol] 9.5 mg/dL Normal 8.5-10.2 [facility] Comment on above: Performed By: #### C MP, CBCDIF ####[facility], [place] [phone] Chloride [Moles/Vol] 104 mmol/L Normal 97-105 [facility] Comment on above: Performed By: #### C MP, CBCDIF ####[facility], [place] [phone] CO2 [Moles/Vol] 26 mmol/L Normal 22-30 [facility] Comment on above: Performed By: #### C MP, CBCDIF ####[facility], [place] [phone] Creatinine [Mass/Vol] 1.32 mg/dL High 0.73-1.22 [facility] Comment on above: Performed By: #### C SEAMUS CBCDIF ####[facility] [place], [place] [phone] eGFR- Amer. >60 Normal [facility] Comment on above: Performed By: #### C SEAMUS, CBCDIF ####[facility] [place], [place] [phone] eGFR-All Other Races 54 . Normal [facility] Comment on above: Result Comment: eGFR [...] reflect actual GFR. Performed By: #### C JUANITA WAYF ####[facility] [place], [place] [phone] Glucose [Mass/Vol] 122 mg/dL High 74-99 [facility] Comment on above: Result Comment: The [place] Diabetes Association (ADA) provides guidance for cutoff [...] Standards of Medical Care in Diabetes 2016, [place] [employer]. Diabetes Care. 2016.39(Suppl 1). Performed By: #### C NISHA WAY ####[facility] [address] [place], [place] [phone] Potassium [Moles/Vol] 4.4 mmol/L Normal 3.7-5.1 [facility] Comment on above: Performed By: #### C MP, CBCDIF ####[address] [phone] Protein [Mass/Vol] 6.8 g/dL Normal 6.3-8.0 [facility] Comment on above: Performed By: #### C MP, CBCDIF ####[address] [phone] Sodium [Moles/Vol] 138 mmol/L Normal 136-144 [facility] Comment on above: Performed By: #### C MP, CBCDIF ####[address] [phone] Urea nitrogen [Mass/Vol] 20 mg/dL Normal 9-24 [facility] Comment on above: Performed By: #### C MP, CBCDIF ####[address] [phone] HISTORY PHYSICALon HISTORY PHYSICAL HNO ID: [id number] Author: Sterling Bhatia MD Service: ? Author Type: Resident Type: HANDP Filed: 08/09/2020 3:18 PM Note Text: HISTORY AND PHYSICAL EXAMINATION SERVICE DATE: 08/09/2020 SERVICE TIME: 1420 PRIMARY CARE PHYSICIAN: Cynthia Aguila, ISIDRA, MORNING SHOW HOST REASON FOR VISIT: Lakia Rodriguez is a 69 year old male [...] Laterality Date - COLONOSCOP W/ OR W/O [facility] SPEC 07/2015 Colonoscopy - IR PICC LINE [...] Yes Medication Comments documented by Lisa Childers LPN on 01/11/2016 at 0856. Pt unsure of medication list. Pt did not bring pill bottles or medication list to appt 01/11/2016 CURRENT ALLERGIES: ALLERGIES Allergen Reactions - Penicillins Unknown - Ragweed Shortness of Breath REVIEW OF SYSTEMS: PAIN ASSESSMENT: General: No weight loss, malaise or fevers. 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 Normal [facility] PreOp/PreProc COVIDon 2020 SARS-CoV-2 (COVID-19) RNA KELLY+probe Ql (Unsp spec) UPPER RESPIRATORY TRACT SWAB Normal [facility] Comment on above: Performed By: #### P OCOVD ####[address] [address] [phone] SARS-CoV-2 (COVID-19) RNA KELLY+probe Ql (Unsp spec) Negative for COVID19 (SARS CoV2) by RT-PCR or equivalent method. Normal Negative for COVID19 (SARS CoV2) by RT-PCR or equivalent method. [facility] Comment on above: Result Comment: This test was developed and its performance characteristics determined by [facility]'s [facility] [place]. This test has been authorized by FDA under an Emergency Use Authorization (EUA). This test has been validated in accordance with the FDA's Guidance Document Policy for Diagnostics Testing in Laboratories Certified to Perform High Complexity Testing under CLIA prior to Emergency use Authorization for Coronavirus Disease 2019 during the Public Health Emergency issued on April 11, 2019. Test performed by [facility], [facility] [place], [address] [place] [address]. Performed By: #### P OCOVD ####[address] [address] [phone] Type and SCR (30D)on 021 ABO/RH(D) AB POSTIVE Normal [facility] Comment on above: Performed By: #### T SCR30 ####[address] [phone] Urinalysison 08-09-2020 Bilirubin, Urine Negative Normal Negative [facility] Comment on above: Performed By: #### U A ####[address] [phone] Clarity (U) Clear Normal Clear [facility] Comment on above: Performed By: #### U A ####[address] [phone] Color (U) Yellow Normal Yellow [facility] Comment on above: Performed By: #### U A ####[place] [phone] Comments SEE COMMENT Normal [facility] Comment on above: Result Comment: Micr oscopic Examination Performed Performed By: #### U A ####[place] [address] [address] [place] [phone] Glucose Ql (U) Negative Normal Negative [facility] Comment on above: Performed By: #### U A ####[place] [phone] Hemoglobin/Blood,Ur 1+ Critically abnormal Negative [facility] Comment on above: Performed By: #### U A ####[place] [phone] Ketones Ql (U) Negative Normal Negative [facility] Comment on above: Performed By: #### U A ####[place] [address] [address] [place] [phone] Leukest Negative Normal Negative [facility] Comment on above: Performed By: #### U A ####[place] [address] [address] [place] [phone] Nitrite Ql (U) Negative Normal Negative [facility] Comment on above: Performed By: #### U A ####[place] [address] [address] [place] [phone] pH (U) 6.0 [pH] Normal 5.0-8.0 [facility] Comment on above: Performed By: #### U A ####[place] [address] [address] [place] [phone] Protein, Urine Negative Normal Negative [facility] Comment on above: Performed By: #### U A ####[address] [phone] RBC 0-3 Normal 0-3 [facility] Comment on above: Performed By: #### U A ####[address] [phone] Specific [place], Ur 1.017 Normal 1.005-1.030 [facility] Comment on above: Performed By: #### U A ####[address] [phone] Urine Bao Comment SEE COMMENT Normal [facility] Comment on above: Result Comment: N/A Performed By: #### U A ####[address] [phone] Urobilinogen Qn (U) {Ramona'U}/dL Critically abnormal Negative [facility] Comment on above: Performed By: #### U A ####[address] [phone] WBC 0-5 Normal 0-5 [facility] Comment on above: Performed By: #### U A ####[address] [phone] [facility] LAKIA RODRIGUEZ ([id number]) 1950 M Date Time Provider Department 08/03/20 [...] Fully Assessed Reason for Visit: Reminder Call [4033] Prescriptions as of 08/03/2020 Sig: AMLODIPINE 2.5 [...] Status:Closed by LEDY JOHNS RN on 08/03/20 [facility] 07-13-2020 [facility] Telephone ([employer]ais) LAKIA RODRIGUEZ ([id number]) 1950 M Date Time Provider Department 07/13/20 LEDY JOHNS (ALYSSA[facility] During your visit today, we recorded the [...] Fully Assessed Reason for Visit: Reminder Call [2438] Prescriptions as of 07/13/2020 Sig: AMLODIPINE 2.5 [...] Status:Closed by LEDY JOHNS RN on 07/13/20 [facility] 06-28-2020 [facility] Telephone (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 [3602] Prescriptions as of 06/28/2020 [...] Encounter Status:Closed by YASIR ARIAS on 06/28/20 [facility] 06-28-2020 HOSP Patient:Courtney Rodriguez as A [...] understanding and all questions were addressed, Normal [facility] CNOVon 06-27-2020 CNOV Office Visit (RAIZA ) LAKIA RODRIGUEZ ([id number]) 1950 M Date Time Provider Department 06/27/20 10:20 AM FELICIA AMAYA During your visit today, we recorded the following information about you: Temperature Pulse Respiration Blood pressure 96.9 degrees 70/minute 16/minute 117/70 Weight Height 93 kg 1.702 m Aidan Wiggins 06/27/2020 9:24 AM Signed What is [...] 3x2cm with granulation tissue without erythema/purulence Assessment/Plan: Lakia Rodriguez is a 69 year old male BMI 32, nonsmoker, hx of DVT/PE, 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 Planned for [...] No Mesh Fixation for Open Retromuscular Repairs EMERGENCY RESPONSE OFFICER: Sydney Hassan MD COORDINATOR/Research Nurse/Welfare Visitor: Tiara Funes MD ? [email or web address] Consenting was performed by the attending surgeon, in a [id number] manner, during preoperative evaluation at the General [...] [] 2. The patient is fluent in German, has read the consent form and understood study procedures [x] [] 3. The patient is planned to undergo a ventral hernia r (more content not included)... Normal [facility] Progress Noteon 07-02-2019 Progress Note [address] [place] [address] Progress Note Signed:[id number] Name: LAKIA RODRIGUEZ MRUN: [id number] : 1950 Loc: 3S Age / Sex: 68/ M Adm Status: DIS Leonor Adm Date:06/03/19 Room/Bed: [facility] Date of Service 06/04/19 Subjective (ROS) Constitutional: [...] (Auto) 12.8 % (24.0-44.0) L 06/05/19 05:34 [place] % (Auto) 7.5 % (1.7-9.3) 06/05/19 05:34 Eos % (Auto) 1.3 % (0.0-5.0) 06/05/19 05:34 Baso % (Auto) 0.3 % (0.0-1.0) 06/05/19 05:34 Neut # (Auto) 4.5 10 3/uL (1.5-6.7) 06/05/19 05:34 Lymph # (Auto) 0.7 10 3/uL (1.0-3.5) L 06/05/19 05:34 [place] # (Auto) 0.4 10 3/uL (0.2-0.8) 06/05/19 [...] [id number] CC: Fercho TORRES, Danii Pickett Normal [facility] CBC WITH AUTO DIFFon 020 Basophils (Bld) [#/Vol] 0.0 10 3/uL Normal 0.0-0.2 [facility] Comment on above: Performed By: #### P T #### Main Lab - [facility] [address] [place] [id number] Basophils/100 WBC (Bld) 0.3 % Normal 0.0-1.0 [facility] Comment on above: Performed By: #### P T #### Main Lab - [facility] [address] [place], [place] [address] Eosinophils (Bld) [#/Vol] 0.1 10 3/uL Normal 0.0-0.7 [facility] Comment on above: Performed By: #### P T #### Main Lab - [facility] [address] [place], [place] [address] Eosinophils/100 WBC (Bld) 1.3 % Normal 0.0-5.0 [facility] Comment on above: Performed By: #### P T #### [facility] - [address] [address] Erythrocyte distribution width (RBC) [Ratio] 14.4 % High 11.5-14.0 [facility] Comment on above: Performed By: #### P T #### [address] [address] Hematocrit (Bld) [Volume fraction] 39.2 % Normal 38.7-49.8 [facility] Comment on above: Performed By: #### P T #### [address] [address] Hemoglobin (Bld) [Mass/Vol] 13.2 g/dL Normal 12.9-16.6 [facility] Comment on above: Performed By: #### P T #### [address] [address] Lymphocytes (Bld) [#/Vol] 0.7 10 3/uL Low 1.0-3.5 [facility] Comment on above: Performed By: #### P T #### [address] [address] Lymphocytes/100 WBC (Bld) 12.8 % Low 24.0-44.0 [facility] Comment on above: Performed By: #### P T #### [address] [address] MCH (RBC) [Entitic mass] 28.9 pg Normal 27.0-31.0 [facility] Comment on above: Performed By: #### P T #### [address] [address] MCHC (RBC) [Mass/Vol] 33.8 g/dL Normal 32.0-36.0 [facility] Comment on above: Performed By: #### P T #### [address] [address] MCV (RBC) [Entitic vol] 85.5 fL Normal 78.0-100.0 [facility] Comment on above: Performed By: #### P T #### [facility] [address] [place] [address] Monocytes (Bld) [#/Vol] 0.4 10 3/uL Normal 0.2-0.8 [facility] Comment on above: Performed By: #### P T #### [facility] - [address] [address] Monocytes/100 WBC (Bld) 7.5 % Normal 1.7-9.3 [facility] Comment on above: Performed By: #### P T #### [facility] - [address] [address] Neutrophils (Bld) [#/Vol] 4.5 10 3/uL Normal 1.5-6.7 [facility] Comment on above: Performed By: #### P T #### [facility] - [address] [address] Neutrophils/100 WBC (Bld) 78.1 % High 36.0-66.0 [facility] Comment on above: Performed By: #### P T #### [facility] - [address] [address] Platelet mean volume (Bld) [Entitic vol] 7.9 fL Normal 6.0-9.5 [facility] Comment on above: Performed By: #### P T #### [facility] - [address] [address] Platelets (Bld) [#/Vol] 180 10 3/uL Normal 150-450 [facility] Comment on above: Performed By: #### P T #### [facility] - [address] [address] RBC (Bld) [#/Vol] 4.58 x10 6/uL Normal 4.38-5.71 [facility] Comment on above: Performed By: #### P T #### Main Lab - [address] [address] WBC (Bld) [#/Vol] 5.8 10 3/uL Normal 4.0-10.5 [facility] Comment on above: Performed By: #### P T #### [facility] - [facility] [address] [place] [address] COMPREHENSIVE METABOLIC PANE Sukhi 06-05-2019 Albumin [Mass/Vol] 3.1 g/dL Low 3.9-5.0 [facility] Comment on above: Performed By: #### P T #### [facility] - [facility] [address] [place] [address] Albumin/Globulin [Mass ratio] 1.2 {ratio} Normal 1.1-1.8 [facility] Comment on above: Performed By: #### P T #### [facility] - [facility] [address] [place] [address] ALP [Catalytic activity/Vol] 84 U/L Normal 43-122 [facility] Comment on above: Performed By: #### P T #### [facility] - [facility] [address] [place] [address] ALT/SGPT 48 U/L Normal 7-56 [facility] Comment on above: Performed By: #### P T #### Main Lab - [address] [address] Anion gap [Moles/Vol] 8 mmol/L Low 9-18 [facility] Comment on above: Performed By: #### P T #### [facility] - [address] [address] AST/SGOT 26 U/L Normal 14-50 [facility] Comment on above: Performed By: #### P T #### Main Lab - [address] [address] Bilirubin [Mass/Vol] 0.5 mg/dL Normal 0.2-1.3 [facility] Comment on above: Performed By: #### P T #### Main Lab - [address] [address] Calcium [Mass/Vol] 8.5 mg/dL Normal 8.4-10.2 [facility] Comment on above: Performed By: #### P T #### Main Lab - [address] [address] Chloride [Moles/Vol] 106 mmol/L Normal 98-107 [facility] Comment on above: Performed By: #### P T #### [facility] - [address] [address] CO2 [Moles/Vol] 27 mmol/L Normal 22-31 [facility] Comment on above: Performed By: #### P T #### [facility] - [address] [address] Creatinine [Mass/Vol] 1.30 mg/dL Normal 0.80-1.30 [facility] Comment on above: Performed By: #### P T #### [facility] - [address] [address] ESTIMATED CREAT CLEARANCE 52.26 [facility] Comment on above: Result Comment: COCK CROFT-GAULT FORMULA 1972 Performed By: #### P T #### [address] [address] ESTIMATED GLOMERULAR FILT RATE 55.000 mL/min Normal [facility] Comment on above: Performed By: #### P T #### [address] [address] Globulin (S) [Mass/Vol] 2.6 g/dL Normal [facility] Comment on above: Performed By: #### P T #### [address] [address] Glucose [Mass/Vol] 108 mg/dL High 70-99 [facility] Comment on above: Result Comment: The glucose range is based on recommendations from the [place] [employer] for fasting blood glucose range. Performed By: #### P T #### [facility] - [address] [address] Potassium [Moles/Vol] 3.7 mmol/L Normal 3.6-5.0 [facility] Comment on above: Performed By: #### P T #### [address] [address] Protein [Mass/Vol] 5.7 g/dL Low 6.3-8.2 [facility] Comment on above: Performed By: #### P T #### [address] [address] Sodium [Moles/Vol] 137 mmol/L Normal 137-145 [facility] Comment on above: Performed By: #### P T #### [facility] - [place] [address] Urea nitrogen [Mass/Vol] 15 mg/dL Normal 7-21 [facility] Comment on above: Performed By: #### P T #### [facility] [place] [address] Urea nitrogen/Creatinine [Mass ratio] 11.5 Ratio Normal 5.0-42.0 [facility] Comment on above: Performed By: #### P T #### [facility] - [place] [id number] Age - Reported 68 Years Normal [facility] Comment on above: Performed By: #### P T #### [facility] - [place] [id number] PT WITH INRon 06-05-2019 INR Coag (PPP) [Relative time] 3.1 {INR} Normal [facility] Comment on above: Result Comment: ISAAK MMENDED RANGES FOR INR: Therapeutic range for standard therapy INR: 2.0-3.0 Therapeutic range for high dose therapy INR: 2.5-3.5 Performed By: #### P T #### [facility] - [place] [id number] PT Coag (PPP) [Time] 32.2 s High 12.0-14.5 [facility] Comment on above: Performed By: #### P T #### [facility] - [place] [id number] URINE CULTUREon 06-05-2019 Bacteria identified Cx Nom (U) @06/03/19 1933: URINE CULT added. RFLXG = URINE CULT. @Source changed from IRICEL INS to CC by . URINE CULTURE: NO GROWTH AT 48 HOURS Normal [facility] Comment on above: Performed By: #### P T #### [facility] - [place] [id number] CBC WITH AUTO DIFFon 020 Basophils (Bld) [#/Vol] 0.0 10 3/uL Normal 0.0-0.2 [facility] Comment on above: Performed By: #### P T, CMP, CBC #### [facility] [address] [place] [address] Basophils/100 WBC (Bld) 0.2 % Normal 0.0-1.0 [facility] Comment on above: Performed By: #### P T, CMP, CBC #### [facility] [address] [place] [address] Eosinophils (Bld) [#/Vol] 0.0 10 3/uL Normal 0.0-0.7 [facility] Comment on above: Performed By: #### P T, CMP, CBC #### [facility] [address] [place] [address] Eosinophils/100 WBC (Bld) 0.3 % Normal 0.0-5.0 [facility] Comment on above: Performed By: #### P T, CMP, CBC #### [facility] [address] [place] [address] Erythrocyte distribution width (RBC) [Ratio] 14.4 % High 11.5-14.0 [facility] Comment on above: Performed By: #### P T, CMP, CBC #### [facility] [address] [place] [address] Hematocrit (Bld) [Volume fraction] 40.5 % Normal 38.7-49.8 [facility] Comment on above: Performed By: #### P T, CMP, CBC #### [facility] [address] [place] [address] Hemoglobin (Bld) [Mass/Vol] 13.9 g/dL Normal 12.9-16.6 [facility] Comment on above: Performed By: #### P T, CMP, CBC #### [facility] [address] [place] [address] Lymphocytes (Bld) [#/Vol] 0.6 10 3/uL Low 1.0-3.5 [facility] Comment on above: Performed By: #### P T, CMP, CBC #### [facility] [address] [place] [address] Lymphocytes/100 WBC (Bld) 8.3 % Low 24.0-44.0 [facility] Comment on above: Performed By: #### P T, CMP, CBC #### Main Lab - [facility] [address] [place] [address] MCH (RBC) [Entitic mass] 29.2 pg Normal 27.0-31.0 [facility] Comment on above: Performed By: #### P T, CMP, CBC #### Main Lab - [address] [address] MCHC (RBC) [Mass/Vol] 34.2 g/dL Normal 32.0-36.0 [facility] Comment on above: Performed By: #### P T, CMP, CBC #### Main Lab - [address] [address] MCV (RBC) [Entitic vol] 85.2 fL Normal 78.0-100.0 [facility] Comment on above: Performed By: #### P T, CMP, CBC #### [facility] - [address] [address] Monocytes (Bld) [#/Vol] 0.4 10 3/uL Normal 0.2-0.8 [facility] Comment on above: Performed By: #### P T, CMP, CBC #### [facility] - [address] [address] Monocytes/100 WBC (Bld) 5.4 % Normal 1.7-9.3 [facility] Comment on above: Performed By: #### P T, CMP, CBC #### [facility] - [address] [address] Neutrophils (Bld) [#/Vol] 5.8 10 3/uL Normal 1.5-6.7 [facility] Comment on above: Performed By: #### P T, CMP, CBC #### [facility] - [address] [address] Neutrophils/100 WBC (Bld) 85.8 % High 36.0-66.0 [facility] Comment on above: Performed By: #### P T, CMP, CBC #### [facility] - [facility] [address] [place] [address] Platelet mean volume (Bld) [Entitic vol] 8.1 fL Normal 6.0-9.5 [facility] Comment on above: Performed By: #### P T, CMP, CBC #### Main [facility] - [facility] [address] [place], [place] [address] Platelets (Bld) [#/Vol] 190 10 3/uL Normal 150-450 [facility] Comment on above: Performed By: #### P T, CMP, CBC #### [facility] - [facility] [address] [place] [address] RBC (Bld) [#/Vol] 4.75 x10 6/uL Normal 4.38-5.71 [facility] Comment on above: Performed By: #### P T, CMP, CBC #### [facility] - [facility] [address] [place] [address] WBC (Bld) [#/Vol] 6.7 10 3/uL Normal 4.0-10.5 [facility] Comment on above: Performed By: #### P T, CMP, CBC #### [facility] - [facility] [address] [place] [address] COMPREHENSIVE METABOLIC PANE Sukhi 06-04-2019 Albumin [Mass/Vol] 3.4 g/dL Low 3.9-5.0 [facility] Comment on above: Performed By: #### P T, CMP, CBC #### [facility] - [facility] [address] [place] [address] Albumin/Globulin [Mass ratio] 1.2 {ratio} Normal 1.1-1.8 [facility] Comment on above: Performed By: #### P T, CMP, CBC #### [facility] - [facility] [address] [place] [address] ALP [Catalytic activity/Vol] 92 U/L Normal 43-122 [facility] Comment on above: Performed By: #### P T, CMP, CBC #### [facility] - [facility] [place], [place] [address] ALT/SGPT 62 U/L High 7-56 [facility] Comment on above: Performed By: #### P T, CMP, CBC #### [facility] - [facility] [address] [place] [address] Anion gap [Moles/Vol] 8 mmol/L Low 9-18 [facility] Comment on above: Performed By: #### P T, CMP, CBC #### [facility] - [facility] [address] [place], [place] [address] AST/SGOT 36 U/L Normal 14-50 [facility] Comment on above: Result Comment: Spec imen Slightly Hemolyzed. Performed By: #### P T, CMP, CBC #### [facility] - [facility] [address] [place], [place] [address] Bilirubin [Mass/Vol] 0.5 mg/dL Normal 0.2-1.3 [facility] Comment on above: Performed By: #### P T, CMP, CBC #### [facility] - [facility] [address] [place] [address] Calcium [Mass/Vol] 8.9 mg/dL Normal 8.4-10.2 [facility] Comment on above: Performed By: #### P T, CMP, CBC #### [facility] - [facility] [address] [place] [address] Chloride [Moles/Vol] 109 mmol/L High 98-107 [facility] Comment on above: Result Comment: Inco nsistent with previous results. Performed By: #### P T, CMP, CBC #### [facility] - [facility] [address] [place] [address] CO2 [Moles/Vol] 27 mmol/L Normal 22-31 [facility] Comment on above: Performed By: #### P T, CMP, CBC #### [facility] [place], [place] [address] Creatinine [Mass/Vol] 1.28 mg/dL Normal 0.80-1.30 [facility] Comment on above: Performed By: #### P T, CMP, CBC #### [facility] - [facility] [place], [place] [address] ESTIMATED CREAT CLEARANCE 53.08 Normal [facility] Comment on above: Result Comment: COCK CROFT-GAULT FORMULA 1973 Performed By: #### P T, CMP, CBC #### [facility] - [facility] [address] [place], [place] [address] ESTIMATED GLOMERULAR FILT RATE 56.000 mL/min Normal [facility] Comment on above: Performed By: #### P T, CMP, CBC #### [facility] - [facility] [address] [place] [address] Globulin (S) [Mass/Vol] 2.9 g/dL Normal [facility] Comment on above: Performed By: #### P T, CMP, CBC #### [facility] - [facility] [address] [place] [address] Glucose [Mass/Vol] 165 mg/dL High 70-99 [facility] Comment on above: Result Comment: The glucose range is based on recommendations from the [place] [employer] for fasting blood glucose range. Performed By: #### P T, CMP, CBC #### [facility] - [facility] [address] [place] [address] Potassium [Moles/Vol] 3.7 mmol/L Normal 3.6-5.0 [facility] Comment on above: Result Comment: Spec imen Slightly Hemolyzed. Performed By: #### P T, CMP, CBC #### [facility] - [facility] [address] [place] [address] Protein [Mass/Vol] 6.3 g/dL Normal 6.3-8.2 [facility] Comment on above: Performed By: #### P T, CMP, CBC #### [facility] - [facility] [address] [place] [address] Sodium [Moles/Vol] 140 mmol/L Normal 137-145 [facility] Comment on above: Performed By: #### P T, CMP, CBC #### [facility] - [facility] [address] [place] [address] Urea nitrogen [Mass/Vol] 17 mg/dL Normal 7-21 [facility] Comment on above: Performed By: #### P T, CMP, CBC #### [facility] - [facility] [place], [place] [address] Urea nitrogen/Creatinine [Mass ratio] 13.3 Ratio Normal 5.0-42.0 [facility] Comment on above: Performed By: #### P T, CMP, CBC #### [facility] [place], [place] [address] Age - Reported 68 Years Normal [facility] Comment on above: Performed By: #### P T, CMP, CBC #### [facility] - [facility] [address] [place], [place] [address] CREATINE KINASE MBon 020 CK.MB [Mass/Vol] 4.0 ng/mL High 0.0-3.7 [facility] Comment on above: Performed By: #### C KMB 1 #### [facility] - [facility] [address] [place] [address] CK.MB [Mass/Vol] 3.8 ng/mL High 0.0-3.7 [facility] Comment on above: Performed By: #### C KMB 1 #### [facility] - [facility] [address] [place] [address] CK.MB [Mass/Vol] 4.4 ng/mL High 0.0-3.7 [facility] Comment on above: Performed By: #### P T #### [facility] - [facility] [address] [place] [address] ABDOMEN PELVIS W/Oon 05-13 CT ABDOMEN PELVIS W/O [facility] [address] [place] [address] Diagnostic Imaging Report : [id number] Signed Name: LAKIA RODRIGUEZ MRUN: [id number] : 1950 Loc: 3S Age / Sex: 68 / M ADM Status: ADM Leonor ADM Date: 06/03/19 Room/Bed: [facility] Ordering Physician: Vick ENCISO, Usreesnini Procedure: CT ABDOMEN PELVIS W/O Order Number(s): [id number] Ordered Date: 06/04/19 Ordered Time: 0006 EXAMINATION: [...] Signed Date/Time: 06/04/19225 Transcribed Date/Time: 06/04/19221 Normal [facility] DRUG SCREEN,URINEon 06-04-19 AMPHETAMINE SCREEN,URINE Negative Normal NEGATIVE [facility] Comment on above: Order Comment: @ COL L DATE was changed from 06/03/19 to 06/04/19 @ by [id number]. Old specimen was [id number]. Result Comment: Nega tive cut-off concentration <1000 ng/mL Performed By: #### U DS #### Main [facility] - [facility] [address] [place], [place] [id number] BARBITURATE SCREEN, URINE Negative Normal NEGATIVE [facility] Comment on above: Order Comment: @ COL L DATE was changed from 06/03/19 to 06/04/19 @ by [id number]. Old specimen was [id number]. Result Comment: Nega tive cut-off concentration <200 ng/mL Performed By: #### U DS #### [facility] [place], [place] [address] BENZODIAZEPINES SCREEN,URINE Negative Normal NEGATIVE [facility] Comment on above: Order Comment: @ COL L DATE was changed from 06/03/19 to 06/04/19 @ by [id number]. Old specimen was [id number]. Result Comment: Nega tive cut-off concentration <200 ng/mL Performed By: #### U DS #### [facility] [place] [id number] BUPRENORPHINE SCREEN,URINE Negative Normal NEGATIVE [facility] Comment on above: Order Comment: @ COL L DATE was changed from 06/03/19 to 06/04/19 @ by [id number]. Old specimen was [id number]. Result Comment: Nega tive cut-off concentration <10 ng/mL Performed By: #### U DS #### [facility] [place] [id number] CANNABINOID SCREEN,URINE Negative Normal NEGATIVE [facility] Comment on above: Order Comment: @ COL L DATE was changed from 06/03/19 to 06/04/19 @ by [id number]. Old specimen was [id number]. Result Comment: Nega tive cut-off concentration <50 ng/mL Performed By: #### U DS #### [facility] [place] [address] COCAINE SCREEN,URINE Negative Normal NEGATIVE [facility] Comment on above: Order Comment: @ COL L DATE was changed from 06/03/19 to 06/04/19 @ by [id number]. Old specimen was [id number]. Result Comment: Nega tive cut-off concentration <300 ng/mL Performed By: #### U DS #### [facility] - [place] 9971773 METHADONE SCREEN,URINE Negative Normal NEGATIVE [facility] Comment on above: Order Comment: @ COL L DATE was changed from 06/03/19 to 06/04/19 @ by [id number]. Old specimen was [id number]. Result Comment: Nega tive cut-off concentration <300 ng/mL Performed By: #### U DS #### [facility] - [place] 9971773 OPIATE SCREEN,URINE Negative Normal NEGATIVE [facility] Comment on above: Order Comment: @ COL L DATE was changed from 06/03/19 to 06/04/19 @ by [id number]. Old specimen was [id number]. Result Comment: Nega tive cut-off concentration <300 ng/mL Performed By: #### U DS #### [facility] - [address] [address] OXYCODONE SCREEN,URINE Negative Normal NEGATIVE [facility] Comment on above: Order Comment: @ COL L DATE was changed from 06/03/19 to 06/04/19 @ by [id number]. Old specimen was [id number]. Result Comment: Nega tive cut-off concentration <300 ng/mL Performed By: #### U DS #### [facility] - [place] [address]971773 PHENCYCLIDINE SCREEN,URINE Negative Normal NEGATIVE [facility] Comment on above: Order Comment: @ COL L DATE was changed from 06/03/19 to 06/04/19 @ by [id number]. Old specimen was [id number]. Result Comment: Nega tive cut-off concentration <25 ng/mL Performed By: #### U DS #### [facility] - [place] [address]971773 NITRITE,URINE Negative Normal NEGATIVE [facility] Comment on above: Order Comment: @ COL L DATE was changed from 06/03/19 to 06/04/19 @ by [id number]. Old specimen was [id number]. Performed By: #### U DS #### [facility] - [place] [id number] pH (U) 6.0 [pH] Normal 5.0-8.0 [facility] Comment on above: Order Comment: @ COL L DATE was changed from 06/03/19 to 06/04/19 @ by [id number]. Old specimen was [id number]. Performed By: #### U DS #### [facility] - [address] [address] SPECIFIC GRAVITY,URINE 1.027 SP.GR. Normal <1.029 [facility] Comment on above: Order Comment: @ COL L DATE was changed from 06/03/19 to 06/04/19 @ by [id number]. Old specimen was [id number]. Performed By: #### U DS #### [facility] - [place] [id number] ECHOCARDIOGRAM COMPLETEon ECHOCARDIOGRAM COMPLETE [facility] [address] [place], [place] [id number] Cardiovascular Imaging Report : [id number] Signed Name: LAKIA RODRIGUEZ MRUN: [id number] : 1950 Loc: 3S Age / Sex: 68 / M ADM Status: ADM Leonor ADM Date: 06/03/19 Room/Bed: [facility] Ordering Physician: Modesto Hickman MD Procedure: ECHOCARDIOGRAM COMPLETE Order Number(s): [id number] Ordered Date: 06/04/19 Ordered Time: 0700 SEOSYNCVPROD [id number] Transthoracic Echo Report Ht (in): 67 Wt (lb): 221 BSA: 2.2 Technologist: Ingris Messer [facility] Nurse: Gracie Goldberg BSAnais, Stay Type: I Indications: syncope Procedure: A [...] 4.4 cm RV Mid 3.7 cm RV [place] to Base 8.6 cm Ascending Aorta Diameter 3.2 cm M-MODE Aortic Root Diameter MM 3.6 cm LA Systolic Diameter MM 4.2 cm LA Ao Ratio MM 1.2 DOPPLER AV Peak Velocity 1.3 m/s AV Peak Gradient 6.6 mmHg LVOT Peak Velocity 0.8 m/s LVOT Peak Gradient 2.5 mmHg LVOT Mean Gradient 1.3 mmHg LVOT Velocity Time Integral 16.7 cm MV Deceleration Churchill 1.3 m/s? MV Pressure Half Time 83.2 [...] 06/04/19 1132 Transcribed Date/Time: 06/04/19 0947 Normal [facility] History & Physicalon 020 History & Physical [address] [place] [address] History Physical Signed with Addenda:[id number] Name: LAKIA RODRIGUEZ MRUN: [id number] : 1950 Loc: 3S Age / Sex: 68/ M Adm Status: ADM Leonor Adm Date:06/03/19 Room/Bed: [facility] ADDENDUM---- ------ Bilateral lower extremities have chronic venous stasis changes and trace edema, small open wound on right leg. 06/04/19 0048 CC: Vick ENCISO, Usrees Date of Service 06/03/19 History of Present Illness Information source:: Patient Chief Complaint: I passed out This is a pleasant 68-year-old male with a history of diabetes mellitus and colon cancer was brought into the emergency room by the field sales representative for further evaluation and management of a syncopal event. Patient was in his usual state of health until this afternoon. 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 He was taking the exit to get to the Highway around 4:30 PM after exchanging the trailer with his colleague. He felt like his truck is spinning around. The next thing he knew was field sales representative were knocking on the door. He was [...] (Auto) 12.0 % (24.0-44.0) L 06/03/19 17:36 [place] % (Auto) 6.0 % (1.7-9.3) 06/03/19 17:36 Eos % (Auto) 0.6 % (0.0-5.0) 06/03/19 17:36 Baso % (Auto) 0.3 % (0.0-1.0) 06/03/19 17:36 Neut # (Auto) 5.7 10 3/uL (1.5-6.7) 06/03/19 17:36 Lymph # (Auto) 0.8 10 3/uL (1.0-3.5) L 06/03/19 17:36 [place] # (Auto) 0.4 10 3/uL (0.2-0.8) 06/03/19 [...] actually had an appointment with surgeon at [facility] for rectal hernia repair about one [...] Current Visit: Yes Category: Medical Status: Chronic 06/04/1944 CC: Vick ENCISO, Usrees Normal [facility] LACTATE FOLLOW UPon 06-04-19 LACTATE FOLLOW UP 1.0 mmol/L Normal 0.7-2.4 [facility] Comment on above: Order Comment: @05/130: LACTATE 2 added. RFLXG = LACTICRFX. Performed By: #### L ACTATE 2 #### Main Lab - [facility] [address], [place] [address] PT WITH INRon 06-04-2019 INR Coag (PPP) [Relative time] 3.0 {INR} Normal [facility] Comment on above: Order Comment: @ Pre viously cancelled by [id number] on 06/04/19 at 0924. @ Uncancelled by [id number] on 06/04/19 at 0931. @ Specimen Rejected Previously Y. @ Previous Rejection Reason DUPLICATE - Duplicate orders. Result Comment: ISAAK MMENDED RANGES FOR INR: Therapeutic range for standard therapy INR: 2.0-3.0 Therapeutic range for high dose therapy INR: 2.5-3.5 Performed By: #### P T #### Main Lab - [facility] [address], [place] [address] PT Coag (PPP) [Time] 31.2 s High 12.0-14.5 [facility] Comment on above: Order Comment: @ Pre viously cancelled by [id number] on 06/04/19 at 0924. @ Uncancelled by [id number] on 06/04/19 at 0931. @ Specimen Rejected Previously Y. @ Previous Rejection Reason DUPLICATE - Duplicate orders. Performed By: #### P T #### Main Lab - [facility] [address], [place] [address] INR Coag (PPP) [Relative time] 3.1 {INR} Normal [facility] Comment on above: Result Comment: ISAAK MMENDED RANGES FOR INR: Therapeutic range for standard therapy INR: 2.0-3.0 Therapeutic range for high dose therapy INR: 2.5-3.5 Performed By: #### P T, CMP, CBC #### Main Lab - [facility] [address] [place], [place] [address] PT Coag (PPP) [Time] 32.1 s High 12.0-14.5 [facility] Comment on above: Performed By: #### P T, CMP, CBC #### Main Lab - [facility] [address] [place] [address] TROPONIN Ion 06-04-2019 Troponin I.cardiac [Mass/Vol] 0.06 ng/mL High 0.0-0.03 [facility] Comment on above: Result Comment: Refe rence Interval < or = 0.03 ng/mL Clinical Correlation Needed 0.03 - 0.11 ng/mL AMI Cutoff, Presumptive = or > 0.12 ng/mL Performed By: #### T ROP 1 #### Main Lab - [facility] [address] [place] [address] Troponin I.cardiac [Mass/Vol] 0.06 ng/mL High 0.0-0.03 [facility] Comment on above: Result Comment: Refe rence Interval < or = 0.03 ng/mL Clinical Correlation Needed 0.03 - 0.11 ng/mL AMI Cutoff, Presumptive = or > 0.12 ng/mL Performed By: #### P T #### Main Lab - [facility] [address] [place] [address] US CAROTID DUPLEX BILATERALo n 06-04-2019 CAROTID DUPLEX BILATERAL [facility] Diagnostic Imaging Services [address] [place] [address] Diagnostic Imaging Report : [id number] Signed Name: LAKIA RODRIGUEZ MRUN: [id number] : 1950 Loc: 3S Age / Sex: 68 / M ADM Status: ADM Leonor ADM Date: 06/03/19 Room/Bed: [facility] Ordering Physician[facility] Procedure: US CAROTID DUPLEX BILATERAL Order Number(s): [id number] Ordered Date: 06/04/19 Ordered Time: 0700 EXAMINATION: [...] 06/04/19 1142 Transcribed Date/Time: 06/04/19 1138 Normal [facility] Waveform Imaging Reporton Waveform Imaging Report [facility] Diagnostic [facility] Services [address] [place], [place] [id number] Waveform Imaging Report : [id number] Signed Name: LAKIA RODRIGUEZ MRUN: [id number] : 1950 Loc: 3S Age / Sex: 68 / M ADM Status: ADM Leonor ADM Date: 06/03/19 Room/Bed: [facility] Ordering Physician: Modesto Hickman MD Procedure: EKG Order Number(s): [id number] Ordered Date: 06/04/19 Ordered Time: 0600 Test Date: 2019-06-04 03:50:57 Pat Name: LAKIA RODRIGUEZ Department: [address] [place] [address] Room: [facility] Gender: M [employer] Curator: : 1950 Requested By: Modesto Hickman Order Number: [id number] Reading MD: Sakina Pack Measurements Intervals [place] Rate: 57 P: 69 NE: 150 QRS: 99 QRSD: 108 T: -168 [...] Signed Date/Time: 06/04/19 0911 Transcribed Date/Time: Normal [facility] ALCOHOL, MEDICAL ONLYon 05-13 ALCOHOL, MEDICAL < 10 Normal [facility] Comment on above: Result Comment: Alco hol for medical purposes only. Performed By: #### T ROP 1 #### [facility] - [address] [address] CBC WITH AUTO DIFFon 020 Basophils (Bld) [#/Vol] 0.0 10 3/uL Normal 0.0-0.2 [facility] Comment on above: Performed By: #### P T #### [facility] - [address] [address] Basophils/100 WBC (Bld) 0.3 % Normal 0.0-1.0 [facility] Comment on above: Performed By: #### P T #### [facility] - [address] [address] Eosinophils (Bld) [#/Vol] 0.0 10 3/uL Normal 0.0-0.7 [facility] Comment on above: Performed By: #### P T #### [facility] - [address] [address] Eosinophils/100 WBC (Bld) 0.6 % Normal 0.0-5.0 [facility] Comment on above: Performed By: #### P T #### [facility] - [address] [address] Erythrocyte distribution width (RBC) [Ratio] 14.2 % High 11.5-14.0 [facility] Comment on above: Performed By: #### P T #### [facility] - [address] [address] Hematocrit (Bld) [Volume fraction] 42.8 % Normal 38.7-49.8 [facility] Comment on above: Performed By: #### P T #### [address] [address] Hemoglobin (Bld) [Mass/Vol] 14.6 g/dL Normal 12.9-16.6 [facility] Comment on above: Performed By: #### P T #### [facility] - [address] [address] Lymphocytes (Bld) [#/Vol] 0.8 10 3/uL Low 1.0-3.5 [facility] Comment on above: Performed By: #### P T #### [facility] - [address] [address] Lymphocytes/100 WBC (Bld) 12.0 % Low 24.0-44.0 [facility] Comment on above: Performed By: #### P T #### [facility] - [address] [address] MCH (RBC) [Entitic mass] 29.2 pg Normal 27.0-31.0 [facility] Comment on above: Performed By: #### P T #### [address] [address] MCHC (RBC) [Mass/Vol] 34.1 g/dL Normal 32.0-36.0 [facility] Comment on above: Performed By: #### P T #### [facility] - [address] [address] MCV (RBC) [Entitic vol] 85.7 fL Normal 78.0-100.0 [facility] Comment on above: Performed By: #### P T #### [address] [address] Monocytes (Bld) [#/Vol] 0.4 10 3/uL Normal 0.2-0.8 [facility] Comment on above: Performed By: #### P T #### [address] [address] Monocytes/100 WBC (Bld) 6.0 % Normal 1.7-9.3 [facility] Comment on above: Performed By: #### P T #### [address] [address] Neutrophils (Bld) [#/Vol] 5.7 10 3/uL Normal 1.5-6.7 [facility] Comment on above: Performed By: #### P T #### [facility] - [address] [address] Neutrophils/100 WBC (Bld) 81.1 % High 36.0-66.0 [facility] Comment on above: Performed By: #### P T #### [address] [address] Platelet mean volume (Bld) [Entitic vol] 7.7 fL Normal 6.0-9.5 [facility] Comment on above: Performed By: #### P T #### [facility] - [address] [address] Platelets (Bld) [#/Vol] 187 10 3/uL Normal 150-450 [facility] Comment on above: Performed By: #### P T #### [address] [address] RBC (Bld) [#/Vol] 4.99 x10 6/uL Normal 4.38-5.71 [facility] Comment on above: Performed By: #### P T #### [address] [address] WBC (Bld) [#/Vol] 7.0 10 3/uL Normal 4.0-10.5 [facility] Comment on above: Performed By: #### P T #### [address] [address] COMPREHENSIVE METABOLIC PANE Sukhi 06-03-2019 Albumin [Mass/Vol] 3.9 g/dL Normal 3.9-5.0 [facility] Comment on above: Performed By: #### P T #### [address] [address] Albumin/Globulin [Mass ratio] 1.4 {ratio} Normal 1.1-1.8 [facility] Comment on above: Performed By: #### P T #### [address] [address] ALP [Catalytic activity/Vol] 104 U/L Normal 43-122 [facility] Comment on above: Performed By: #### P T #### [address] [address] ALT/SGPT 78 U/L High 7-56 [facility] Comment on above: Performed By: #### P T #### Main Lab - [facility] [address] [place] [address] Anion gap [Moles/Vol] 15 mmol/L Normal 9-18 [facility] Comment on above: Performed By: #### P T #### [facility] - [address] [address] AST/SGOT 58 U/L High 14-50 [facility] Comment on above: Performed By: #### P T #### [facility] - [address] [address] Bilirubin [Mass/Vol] 1.0 mg/dL Normal 0.2-1.3 [facility] Comment on above: Performed By: #### P T #### [facility] - [address] [address] Calcium [Mass/Vol] 9.0 mg/dL Normal 8.4-10.2 [facility] Comment on above: Performed By: #### P T #### [facility] - [address] [address] Chloride [Moles/Vol] 103 mmol/L Normal 98-107 [facility] Comment on above: Performed By: #### P T #### [facility] - [address] [address] CO2 [Moles/Vol] 25 mmol/L Normal 22-31 [facility] Comment on above: Performed By: #### P T #### [facility] - [address] [address] Creatinine [Mass/Vol] 1.50 mg/dL High 0.80-1.30 [facility] Comment on above: Performed By: #### P T #### [facility] - [address] [address] ESTIMATED CREAT CLEARANCE 45.29 Normal [facility] Comment on above: Result Comment: COCK CROFT-GAULT FORMULA 1973 Performed By: #### P T #### Main Lab - [address] [address] ESTIMATED GLOMERULAR FILT RATE 47.000 mL/min Normal [facility] Comment on above: Performed By: #### P T #### Main Lab - [facility] [address] [place] [address] Globulin (S) [Mass/Vol] 2.8 g/dL Normal [facility] Comment on above: Performed By: #### P T #### [facility] - [address] [address] Glucose [Mass/Vol] 167 mg/dL High 70-99 [facility] Comment on above: Result Comment: The glucose range is based on recommendations from the [place] [employer] for fasting blood glucose range. Performed By: #### P T #### [facility] - [address] [address] Potassium [Moles/Vol] 4.0 mmol/L Normal 3.6-5.0 [facility] Comment on above: Performed By: #### P T #### [facility] - [address] [address] Protein [Mass/Vol] 6.7 g/dL Normal 6.3-8.2 [facility] Comment on above: Performed By: #### P T #### [facility] - [address] [address] Sodium [Moles/Vol] 139 mmol/L Normal 137-145 [facility] Comment on above: Performed By: #### P T #### [facility] - [address] [address] Urea nitrogen [Mass/Vol] 20 mg/dL Normal 7-21 [facility] Comment on above: Performed By: #### P T #### [facility] - [address] [address] Urea nitrogen/Creatinine [Mass ratio] 13.3 Ratio Normal 5.0-42.0 [facility] Comment on above: Performed By: #### P T #### [facility] - [address] [address] Age - Reported 68 Years Normal [facility] Comment on above: Performed By: #### P T #### [facility] - [address] [address] CREATINE KINASEon 04-22-2020 CK [Catalytic activity/Vol] 195 U/L High 55-170 [facility] Comment on above: Performed By: #### T ROP 1 #### Main Lab - [facility] [address], [place] [address] CREATINE KINASE MBon 020 CK.MB [Mass/Vol] 4.2 ng/mL High 0.0-3.7 [facility] Comment on above: Performed By: #### T ROP 1 #### Main Lab - [facility] [address], [place] [address] CT ANGIO CHEST W/CONTRASTon 06-03-2019 CT ANGIO CHEST W/CONTRAST [facility] Diagnostic Imaging Services [address] [place] [address] Diagnostic Imaging Report : [id number] Signed Name: LAKIA RODRIGUEZ MRUN: [id number] : 1950 Loc: ED Age / Sex: 68 / M ADM Status: REG ER ADM Date: 06/03/19 Room/Bed: Ordering Physician: Steve Johnson MD Procedure: CT ANGIO CHEST W/CONTRAST Order Number(s): [id number] Ordered Date: 06/03/19 Ordered Time: 1825 EXAMINATION: [...] Signed Date/Time: 06/03/191930 Transcribed Date/Time: 06/03/191927 Normal [facility] CT HEAD W/O CONTRASTon 06-02 CT HEAD W/O CONTRAST [facility] Diagnostic Imaging Services [address] [place], [place] [address] Diagnostic Imaging Report : [id number] Signed Name: LAKIA RODRIGUEZ MRUN: [id number] : 1950 Loc: ED Age / Sex: 68 / M ADM Status: REG ER ADM Date: 06/03/19 Room/Bed: Ordering Physician: Steve Johnson MD Procedure: CT HEAD W/O CONTRAST Order Number(s): [id number] Ordered Date: 06/03/19 Ordered Time: 1720 EXAMINATION: [...] Signed Date/Time: 06/03/191817 Transcribed Date/Time: 06/03/191813 Normal [facility] ED Physician Documentationon 06-03-2019 ED Physician Documentation [address] [place] [address] Physician Documenation Signed:[id number] Name: LAKIA RODRIGUEZ MRUN: [id number] : 1950 Loc: ED Age / Sex: 68/ M Adm Status: REG ER Adm Date:06/03/19 Room/Bed: HPI: Syncope - Time Seen by Provider Time Seen by Provider: 06/03/19 17:05 - General Information Information source:: Patient, Emergency Med Personnel Patient limitations: No Limitations - History of Present Illness Initial narrative: 71-year-old male with syncopal episode. 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 He was stopped at a [...] Lymph % (Auto) 12.0 L (24.0-44.0) % [place] % (Auto) 6.0 (1.7-9.3) % Eos % (Auto) 0.6 (0.0-5.0) % Baso % (Auto) 0.3 (0.0-1.0) % Neut # (Auto) 5.7 (1.5-6.7) 10 3/uL Lymph # (Auto) 0.8 L (1.0-3.5) 10 3/uL [place] # (Auto) 0.4 (0.2-0.8) 10 3/uL Eos [...] Urine Clarity Urine pH (5.0-8.0) Ur Specific [place] (<1.029) SP.GR. Urine Protein (NEGATIVE) mg/dL Urine [...] (36.0-66.0) % Lymph % (Auto) (24.0-44.0) % [place] % (Auto) (1.7-9.3) % Eos % (Auto) (0.0-5.0) % Baso % (Auto) (0.0-1.0) % Neut # (Auto) (1.5-6.7) 10 3/uL Lymph # (Auto) (1.0-3.5) 10 3/uL [place] # (Auto) (0.2-0.8) 10 3/uL Eos # [...] Urine Clarity Urine pH (5.0-8.0) Ur Specific [place] (<1.029) SP.GR. Urine Protein (NEGATIVE) mg/dL Urine [...] (36.0-66.0) % Lymph % (Auto) (24.0-44.0) % [place] % (Auto) (1.7-9.3) % Eos % (Auto) (0.0-5.0) % Baso % (Auto) (0.0-1.0) % Neut # (Auto) (1.5-6.7) 10 3/uL Lymph # (Auto) (1.0-3.5) 10 3/uL [place] # (Auto) (0.2-0.8) 10 3/uL Eos # [...] Clear Urine pH 6.0 (5.0-8.0) Ur Specific [place] 1.021 (<1.029) SP.GR. Urine Protein 30 H [...] Orders: Orders Category Date Time Status Apply [employer] STAT Care 06/03/19 17:21 Completed Contrast Media Screening Form ONETIME Care 06/03/19 18:27 Completed ED [employer] Q2H Care 06/03/19 17:21 Active EKG - [...] Decision - General Final diagnosis: Syncope Disposition: 09 ADMITTED INPATIENT Condition: Stable New prescriptions/home medications: No Action Warfarin Sodium [Coumadin] 4 mg PO DAILY 06/03/19 1830 06/03/19 1944 CC: Carlos SCHMIDT, Ronn Johnson MD, Steve Cortes; PCP DO, Unknown Normal [facility] LACTATEon 06-03-2019 Lactate [Moles/Vol] 2.1 mmol/L Normal 0.7-2.4 [facility] Comment on above: Order Comment: @05/13 04/02 1806: R LACTATE Y/N added. RFLXG = LAC YN. Performed By: #### T ROP 1 #### Main Lab - [facility] [address] [place] [address] LIPASEon 06-03-2019 Lipase [Catalytic activity/Vol] 19 U/L Low 23-300 [facility] Comment on above: Performed By: #### T ROP 1 #### Main Lab - [facility] [address] [place] [address] PARTIAL THROMBOPLASTIN TIMEo n 06-03-2019 aPTT Coag (Bld) [Time] 33.3 s Normal 24.1-41.2 [facility] Comment on above: Performed By: #### T ROP 1 #### Main Lab - [facility] [address] [place] [address] PT WITH INRon 06-03-2019 INR Coag (PPP) [Relative time] 3.0 {INR} Normal [facility] Comment on above: Result Comment: ISAAK MMENDED RANGES FOR INR: Therapeutic range for standard therapy INR: 2.0-3.0 Therapeutic range for high dose therapy INR: 2.5-3.5 Performed By: #### T ROP 1 #### [place] [id number] [place] Coag (PPP) [Time] 31.1 s High 12.0-14.[address] [facility] Comment on above: Performed By: #### T ROP 1 #### [facility] [place] [id number] TROPONIN Ion 06-03-2019 Troponin I.cardiac [Mass/Vol] ng/mL Normal 0.0-0.03 [facility] Comment on above: Result Comment: Refe rence Interval < or = 0.03 ng/mL Clinical Correlation Needed 0.03 - 0.11 ng/mL AMI Cutoff, Presumptive = or > 0.12 ng/mL Performed By: #### T ROP 1 #### Main Lab - [facility] [address] [place], [place] [id number] URINE PROTOCOLon 06-03-2019 BLOOD,URINE SMALL Abnormal NEGATIVE [facility] Comment on above: Performed By: #### U A w RFX x2, URINE #### Main [facility] - [facility] [address] [place] [address] Clarity (U) CLEAR Normal [facility] Comment on above: Performed By: #### U A w RFX x2, URINE #### Main [facility] - [facility] [address] [place] [address] Color (U) YELLOW Normal [facility] Comment on above: Performed By: #### U A w RFX x2, URINE #### Main [facility] - [facility] [address] [place] [address] Glucose Ql (U) 50 mg/dL Abnormal NEGATIVE [facility] Comment on above: Performed By: #### U A w RFX x2, URINE #### Main [facility] - [facility] [address] [place] [address] Ketones Ql (U) TRACE Abnormal NEGATIVE [facility] Comment on above: Performed By: #### U A w RFX x2, URINE #### Main [facility] - [facility] [address] [place] [address] Leukocyte esterase Test strip Ql (U) Negative Normal NEGATIVE [facility] Comment on above: Performed By: #### U A w RFX x2, URINE #### Main Lab - [facility] [address] [place] [address] NITRITE,URINE Negative Normal NEGATIVE [facility] Comment on above: Performed By: #### U A w RFX x2, URINE #### Main Lab - [facility] [address] [place] [address] pH (U) 6.0 [pH] Normal 5.0-8.0 [facility] Comment on above: Performed By: #### U A w RFX x2, URINE #### Main [facility] - [facility] [address] [place] [address] Protein (U) [Mass/Vol] 30 mg/dL Abnormal NEGATIVE [facility] Comment on above: Performed By: #### U A w RFX x2, URINE #### Main [facility] - [facility] [address] [place] [address] RBC LM.HPF (Urine sed) [#/Area] 4-10 Abnormal [facility] Comment on above: Performed By: #### U A w RFX x2, URINE #### Main [facility] - [facility] [address] [place] [address] REFLEX TO URINE CULTURE SEE URINE CULTURE Abnormal [facility] Comment on above: Performed By: #### U A w RFX x2, URINE #### Main Lab - [facility] [address] [place] [address] Specific gravity (U) [Rel density] 1.021 SP.GR. Normal <1.029 [facility] Comment on above: Performed By: #### U A w RFX x2, URINE #### Main Lab - [facility] [address], [place] [address] UROBILINOGEN,URINE Negative Normal <2 mg/dL Kody garcia [facility] Comment on above: Performed By: #### U A w RFX x2, URINE #### Main Lab - [facility] [address], [place] [address] WBC LM.HPF (Urine sed) [#/Area] 0-5 Normal [facility] Comment on above: Result Comment: Unle ss otherwise noted, urine microscopic evaluation is normal. Performed By: #### U A w RFX x2, URINE #### Main Lab - [facility] [address] [place], [place] [address] Waveform Imaging Reporton Waveform Imaging Report [facility] Services [address] [place] [address] Waveform Imaging Report : [id number] Signed Name: LAKIA RODRIGUEZ MRUN: [id number] : 1950 Loc: 3S Age / Sex: 68 / M ADM Status: ADM Leonor ADM Date: 06/03/19 Room/Bed: [facility] Ordering Physician: Steve Johnson MD Procedure: EKG Order Number(s): [id number] Ordered Date: 06/03/19 Ordered Time: 172 Test Date: 2019-06-03 17:13:08 Pat Name: LAKIA RODRIGUEZ Department: ED Room: [facility] Gender: M [employer] Curator: : 1950 Requested By: Steve Salgado Order Number: [id number] Reading MD: Ronn Gonzalez Measurements Intervals [place] Rate: 97 P: 60 NE: 122 QRS: 152 QRSD: 116 T: 29 QT: 376 QTc: 478 Interpretive Statements Sinus rhythm at a ventricular rate of 97 bpm, PVC noted, no acute ST-T wave elevation or depression otherwise, normal axis. Electronically Signed On 06-04-2019 6:06:11 EDT by Ronn Gonzalez Dictated By: Ronn Gonzalez DO Dictated Date/Time: 06/03/19 1713 Signed By: Ronn Gonzalez Signed Date/Time: 06/04/19 0606 Transcribed Date/Time: Normal [facility] XR CHEST, ONE VIEWon 020 XR CHEST, ONE VIEW [facility] [address] [place] [address] Diagnostic Imaging Report : [id number] Signed Name: LAKIA RODRIGUEZ MRUN: [id number] : 1950 Loc: ED Age / Sex: 68 / M ADM Status: REG ER ADM Date: 06/03/19 Room/Bed: Ordering Physician: Steve Johnson MD Procedure: XR CHEST, ONE VIEW Order Number(s): [id number] Ordered Date: 06/03/19 Ordered Time: 1720 EXAMINATION: [...] Signed Date/Time: 06/03/191810 Transcribed Date/Time: 06/03/191807 Normal [facility] Protimeon 01-20-2018 INR Coag RelTime (Bld) 1.5 {INR} High 0.9-1.3 [facility] Comment on above: Result Comment: Alexandra min K Antagonist (VKA) Therapeutic Range: INR 2 to 3 (Target INR of 2.5)Note: For patients treated with VKA drugs, such as warfarin, the [place] [employer] 2012 Guideline recommends [...] al. Chest 2012, 141:7S-47SNishimura RA, et al. [facility] 2017, 70: 252-289 Performed By: #### P T ####[place] [id number] [place] [phone] PT Sec 14.8 sec High 9.7-13.0 [facility] Comment on above: Performed By: #### P T ####[place] [phone] Vital Signs Date Time Vital Sign Value Performing Clinician Facility 04-15-2023 12:15-0500 Diastolic blood pressure 81 mm[Hg] [facility]is[facility]chris Oviedo [facility] 04-15-2023 12:15-0500 Heart rate 80 /min [employer] [employer] [facility] 04-15-2023 12:15-0500 Respiratory rate 16 /min [employer] [employer] [facility] 04-15-2023 12:15-0500 Systolic blood pressure 168 mm[Hg] [employer] [employer] [facility] 05-17-2022 08:00-0400 Blood Pressure Location Yusramanuel Denis [facility] 05-17-2022 08:00-0400 Body temperature 97.16 [degF] Yusra Denis [facility] 05-17-2022 08:00-0400 Diastolic blood pressure 81 mm[Hg] Yusra Denis [facility] 05-17-2022 08:00-0400 Heart rate 71 /min Yusra Denis [facility] 05-17-2022 08:00-0400 Respiratory rate 16 /min Yusra Cira [facility] 05-17-2022 08:00-0400 SaO2% (BldA) [Mass fraction] 96 % Yusra Rinconz [facility] 05-17-2022 08:00-0400 Systolic blood pressure 131 mm[Hg] Yusra Henrymetz [facility] 12-28-2021 13:04-0500 Blood Pressure Location [facility] 12-28-2021 13:04-0500 Body temperature 98.06 [degF] [facility] 12-28-2021 13:04-0500 BP/Pulse Patient Position [facility] 12-28-2021 13:04-0500 Diastolic blood pressure 89 mm[Hg] [facility] 12-28-2021 13:04-0500 Heart rate 89 /min [facility] 12-28-2021 13:04-0500 Mean blood pressure 104 mm[Hg] [facility] 12-28-[facility]21 13:04-0500 Respiratory rate 16 /min [facility] 12-28-2021 13:04-0500 SaO2% (BldA) [Mass fraction] 96 % [facility] 12-28-2021 13:04-0500 Systolic blood pressure 135 mm[Hg] [facility] 11-16-2021 08:26-0400 Diastolic blood pressure 80 mm[Hg] Yusra Henrymetz [facility] 11-16-2021 08:26-0400 Mean blood pressure 99 mm[Hg] Yusra Denis [facility] 11-16-2021 08:26-0400 Systolic blood pressure 136 mm[Hg] Yusra Henrymetz [facility] 11-16-2021 08:19-0400 Blood Pressure Location Yusramanuel HenryCira [facility] 11-16-2021 08:19-0400 Body temperature 97.7 [degF] Yusra Henrymetz [facility] 11-16-2021 08:19-0400 Diastolic blood pressure 82 mm[Hg] Yusra Henrymetz [facility] 11-16-2021 08:19-0400 Heart rate 72 /min Yusra Henrymetz [facility] 11-16-2021 08:19-0400 Systolic blood pressure 142 mm[Hg] Yusra Henrymetz [facility] 10-05-2021 10:35-0400 Diastolic blood pressure 93 mm[Hg] Plascencia SALAM [facility] 10-05-2021 10:35-0400 Heart rate 64 /min Plascencia SALAM [facility] 10-05-2021 10:35-0400 Respiratory rate 12 /min Plascencia SALAM [facility] 10-05-2021 10:35-0400 SaO2% (BldA) [Mass fraction] 96 % Plascencia SALAM [facility] 10-05-2021 10:35-0400 Systolic blood pressure 138 mm[Hg] Plascencia SALAM [facility] 10-05-2021 10:25-0400 Diastolic blood pressure 86 mm[Hg] Plascencia SALAM [facility] 10-05-2021 10:25-0400 Heart rate 62 /min Plascencia SALAM [facility] 10-05-2021 10:25-0400 Respiratory rate 16 /min Plascencia SALAM [facility] 10-05-2021 10:25-0400 SaO2% (BldA) [Mass fraction] 96 % Plascencia SALAM [facility] 10-05-2021 10:25-0400 Systolic blood pressure 145 mm[Hg] Plascencia SALAM [facility] 10-05-2021 10:11-0400 Diastolic blood pressure 96 mm[Hg] Plascencia SALAM [facility] 10-05-2021 10:11-0400 Heart rate 74 /min Plascencia SALAM [facility] 10-05-2021 10:11-0400 Respiratory rate 19 /min Plascencia SALAM [facility] 10-05-2021 10:11-0400 SaO2% (BldA) [Mass fraction] 96 % Plascencia SALAM [facility] 10-05-2021 10:11-0400 Systolic blood pressure 126 mm[Hg] Plascencia SALAM [facility] 10-05-2021 09:47-0400 Blood Pressure Location Plascencia SALAM [facility] 10-05-2021 09:47-0400 Body temperature 97.34 [degF] Plascencia SALAM [facility] 10-05-2021 09:40-0400 Respiratory rate 14 /min Plascencia SALAM [facility] 10-05-2021 09:35-0400 Respiratory rate 15 /min Plascencia SALAM [facility] 10-05-2021 09:30-0400 Respiratory rate 16 /min Plascencia SALAM [facility] 10-05-2021 08:58-0400 Blood Pressure Location Plascencia SALAM [facility] 10-05-2021 08:58-0400 Body temperature 97.88 [degF] Plascencia SALAM [facility] 07-19-2021 08:51-0400 Blood Pressure Location Yusra Denis [facility] [place] [facility] 07-19-2021 08:51-0400 Body temperature 97.34 [degF] Yusra Henrymetz [facility] [place] [facility] 07-19-2021 08:51-0400 Diastolic blood pressure 85 mm[Hg] Yusramanuel HenryCira [facility] [place] [facility] 07-19-2021 08:51-0400 Heart rate 74 /min Yusra Henrymetz [facility] [place] [facility] 07-19-2021 08:51-0400 SaO2% (BldA) [Mass fraction] 98 % Yusramanuel HenryCira [facility] [place] [facility] 07-19-2021 08:51-0400 Systolic blood pressure 129 mm[Hg] Yusramanuel HenryCira [facility] [place] [facility] Encounters Encounter Date Encounter Type Care Provider Facility Start: 04-23-2023 End: 04-24-2023 ambulatory Shaun Oviedo Facility:[facility] Start: 04-23-2023 End: 04-23-2023 Patient encounter procedure Shaun Oviedo [facility] Start: 04-19-2023 End: 04-20-2023 ambulatory Shaun Oviedo Facility:[facility] Start: 04-19-2023 End: 04-19-2023 Patient encounter procedure Shaun Oviedo [facility] Start: 04-15-2023 End: 04-16-2023 ambulatory Shaun Oviedo Facility:[facility] Start: 04-15-2023 End: 04-15-2023 Patient encounter procedure Shaun Oviedo [facility] [place] [facility] Start: 01-23-2023 End: 01-23-2023 ambulatory [facility] Start: 01-08-2023 End: 01-08-2023 ambulatory [facility] Start: 12-26-2022 End: 12-26-2022 ambulatory [facility] Start: 12-12-2022 End: 12-12-2022 ambulatory [facility] Start: 12-05-2022 Evaluation and management of inpatient [facility] Start: 12-04-2022 Evaluation and management of inpatient ADRIANA WISDOMFRANCISCA [facility] Start: 12-04-2022 Evaluation and management of inpatient [facility] Start: 12-03-2022 Evaluation and management of inpatient ADRIANA KIRKLAND [facility] Start: 12-03-2022 Evaluation and management of inpatient [facility] Start: 12-03-2022 Evaluation and management of inpatient MANESH SANTOS [facility] Start: 12-02-2022 Evaluation and management of inpatient ADRIANA SANTOS [facility] Start: 12-02-2022 Evaluation and management of inpatient ADRIANA SANTOS [facility] Start: 12-01-2022 Evaluation and management of inpatient ADRIANA SANTOS [facility] Start: 12-01-2022 Evaluation and management of inpatient ADRIANA SANTOS [facility] Start: 11-30-2022 Evaluation and management of inpatient ADRIANA SANTOS [facility] Start: 11-30-2022 Evaluation and management of inpatient HAYLEY CLAYTON [facility] Start: 11-26-2022 Evaluation and management of inpatient JESUS [facility] Start: 11-26-2022 Evaluation and management of inpatient MERCEDES SUNSHINE [facility] Start: 11-25-2022 Evaluation and management of inpatient JESUS [facility] Start: 11-25-2022 End: 12-05-2022 Evaluation and management of inpatient JESUS [facility] Start: 11-25-2022 End: 11-25-2022 Emergency department patient visit MARTIN STINSON [facility] Start: 07-27-2022 End: 07-28-2022 ambulatory Domingo DE LA ROSA Facility:[facility] Start: 06-27-2022 End: 06-28-2022 ambulatory Dougie Harmon Facility:[facility] Start: 06-27-2022 End: 06-28-2022 ambulatory Yusra Denis [facility] Start: 06-27-2022 End: 06-28-2022 ambulatory Yusra Denis Facility:[facility] Start: 06-15-2022 End: 06-16-2022 ambulatory Yusra Deins [facility] Start: 06-15-2022 End: 06-15-2022 Patient encounter procedure Yusra Denis [facility] [place] [facility] Start: 05-17-2022 End: 05-18-2022 ambulatory Yusra Denis Facility:[facility] Start: 05-17-2022 End: 05-17-2022 Patient encounter procedure Yusra Denis [facility] [place] [facility] Start: 02-28-2022 End: 12-31-2022 Recurring Aggie Lynn [facility] Start: 12-28-2021 End: 12-28-2021 Patient encounter procedure Dougie Harmon [facility] Start: 12-27-2021 End: 12-27-2021 Patient encounter procedure Dougie Harmon [facility] Start: 12-22-[address] LAKIA DYSON Facility :[facility] Start: 12-14-2021 End: 12-14-[address] LAKIA DYSON Facility:[facility] Start: 11-16-2021 End: 11-16-2021 Patient encounter procedure Yusra Denis [facility] Start: 10-05-2021 End: 10-05-2021 Patient encounter procedure Thais HINOJOSA [facility] Start: 07-19-2021 End: 07-19-2021 Patient encounter procedure Yusra Denis [facility] Start: 06-23-2021 End: 06-23-2021 Patient encounter procedure Dougie Harmon [facility] Start: 06-14-2021 End: 06-14-2021 Patient encounter procedure Dougie Harmon [facility] Start: 02-14-2021 End: 02-26-2022 Recurring Aggie Lynn [facility] Start: 01-20-2018 Patient encounter procedure [facility] Procedures Date Procedure Procedure Detail Performing Clinician Start: 01-23-2023 Follow-up visit ADRIANA KIRKLAND Start: 01-08-2023 Follow-up visit ADRIANA KIRKLAND Start: 12-26-2022 Follow-up visit ADRIANA KIRKLAND Start: 10-05-2021 Colonoscopy Thais HINOJOSA Start: 08-09-2020 Antibody screen Comment on above: Performed By: #### [id number] ####[facility] [id number] [place], [place] [phone] Start: 03-02-2017 Colonoscopy Yusra Denis colostomy reversal Dougie rousseau Esophagogastroduoden oscopy gastric outlet reduction Yusramanuel Denis Immunizations Immunization Date Immunization Notes Care Provider Cristal rosen 01-15-2022 influenza virus vaccine, unspecified formulation Yusramanuel HenryCira [facility] 01-15-2022 zoster vaccine recombinant Yusramanuel Denis [facility] 01-11-2021 influenza, unspecifi ed formulation Yusra Henrymetz [facility] [place] [facility] 07-22-2020 SARS-CoV-2 (COVID-19 ) mRNA [id number] vax Yusra Cira [facility] [place] [facility] Comment on above: Result Comment: 2021: [id number] 06-30-2020 SARS-CoV-2 (COVID-19 ) mRNA BNT-162b2 vax Yusra Cira [facility] Comment on above: Result Comment: 2021: [id number] 06-27-2020 tetanus and diphther ia toxoids, adsorbed, preservative free, for adult use (2 Lf of tetanus toxoid and 2 Lf of diphtheria toxoid) Yusra Denis [facility] 11-14-2019 influenza virus vaccine, unspecified formulation Yusra Denis [facility] 10-31-2018 influenza virus vaccine, unspecified formulation Yusramanuel Denis [facility] 10-31-2018 pneumococcal polysaccharide vaccine, 23 valent Yusramanuel Denis [facility] 10-22-2017 influenza virus vaccine, unspecified formulation Yusramanuel Denis [facility] 10-22-2017 pneumococcal conjuga te vaccine, 13 valent Yusramanuel Denis [facility] 12-07-2016 influenza, unspecifi ed formulation Yusra Cira [facility] NEGATED: Highlighted row has not occurred!11-16-2021 influenza virus vaccine, unspecified formulation Yusra Denis [facility] Payers Date Payer Category Payer Medicare [id number] 1957 Self-pay 1957 Unknown [id number] 1950 Unknown [id number] 2.16.84 [id number] 1952 Unknown [id number] 2.16.84 [id number] 1952 Unknown [id number] 2.16.8 [id number] 1952 Unknown [id number] 2.16.8 [id number] 1952 Unknown [id number] 2.16.8 [id number] 1952 Unknown [id number] 2.16.8 [id number] 1952 Unknown [id number] 2.16.8 [id number] 1952 Unknown [id number] 2.16.8 [id number] 1952 Unknown [id number] 2.16.8 [id number] 1952 Unknown [id number] 2.16.8 [id number] 1952 Unknown [id number] 2.16.8 [id number] 1952 Unknown [id number] 2.16.8 [id number] Social History Date Type Detail Facility Tobacco [facility] Comment on above: denies current use Sex Assigned At Male [facility] Start: 07-19-2021 End: 04-15-2023 Tobacco smoking status Never smoked tobacco (finding) [facility] Comment on above: denies current use Tobacco smoking status Never [facility] Functional Status Date Assessment Result Facility 04-15-2023 Functional Status N/A [facility] 05-17-2022 Functional Status N/A [facility] 11-16-2021 Functional Status N/A [facility] 10-05-2021 Functional Status N/A [facility] Clinical Notes 06-27-2020 to 01-23-2023 Note Date & Type Note Facility 01-23-2023 Note [facility] 01-23-2023 Note Review of Systems All other systems reviewed and are negative. PT JUST GETTING OVER COVID. FEELS GOOD, HE IS HOPING TO GO SOUTH SOON, BP ON TH LOWER SIDE TODAY, DOES NOT FEEL DIZZY [facility] 01-08-2023 Note [facility] 01-08-2023 Note [facility] 12-26-2022 Note [facility] 12-12-2022 Note [facility] 12-12-2022 Note [facility] 12-05-2022 Note [facility] 12-05-2022 Note [facility] 12-05-2022 Note [facility] 12-05-2022 Note [facility] 12-05-2022 Note [facility] 12-05-2022 Note [facility] 12-05-2022 Note [facility] 12-04-2022 Note [facility] 12-04-2022 Note [facility] 12-04-2022 Note Addendum created 1143 by Robin Pérez Intraprocedure Staff edited (Perfusion) [facility] 12-04-2022 Note [facility] 12-03-2022 Note [facility] 12-03-2022 Note [facility] 12-03-2022 Note [facility] 12-03-2022 Note [facility] 12-03-2022 Note [facility] 12-03-2022 Note [facility] 12-02-2022 Note [facility] 12-02-2022 Note This report has been cancelled. [facility] 12-02-2022 Note [facility] 12-01-2022 Note [facility] 12-01-2022 Note [facility] 12-01-2022 Note Chest tube placed at bedside per ICU MD. Patient signed consent and placed in chart. Patient tolerated procedure well. Patient Vitals are as charted. CXR ordered. Safety Maintained. [facility] 12-01-2022 Note [facility] 11-30-2022 Note [facility] 11-30-2022 Note [facility] 11-30-2022 Note [facility] 11-29-2022 Note [facility] 11-29-2022 Note [facility] 11-29-2022 Note [facility] 11-28-2022 Note [facility] 11-28-2022 Note [facility] 11-27-2022 Note [facility] 11-27-2022 Note [facility] 11-27-2022 Note [facility] 11-27-2022 Note [facility] 11-26-2022 Note [facility] 11-26-2022 Note [facility] 11-26-2022 Note [facility] 11-26-2022 Note [facility] 08-21-2022 Evaluation + Plan note Extrac lo from: [facility] Author:Aggie Hollingsworth Date: 08/21/22 Impression and [...] PT 03/06/22 * Vitamin B12 Level 06/27/22 [facility]04-06-2023 Hospital Discharge instructions Patient Education 05/17/2022 08:26:00 [...] who treats conditions of the digestive system (proposal engineer). Follow these instructions at home: Take ldxm-nro-bmqflmb and prescription medicines only as told by [...] 08/27/2017 Document Revised: 01/10/2018 Document Reviewed: 10/15/2017 [employer] Patient Education 2020 [employer]. Follow Up Care 11/16/2021 08:43:43 With:Yusra Denis CNP Address: When:1 month [facility] [place] [facility] 10-06-2022 Hospital Discharge instructions Patient [...] 10/24/2004 Document Revised: 05/15/2018 Document Reviewed: 05/15/2018 [employer] Patient Education hdtMEDIA Follow Up Care 10/10/2021 11:02:12 With:Yusra Denis CNP Address: When:6 months [facility] [place] [facility] 08-25-2022 Evaluation + Plan noteExtracted from: Title:[facility] POSTOP Author:Dangelo Morel DO Date: 10/05/21 Plan Transfer/ Discharge: Patient can be discharged from PACU when criteria met. Condition good. Extracted from: Title:CARM[facility] PREOP Author:Dangelo Morel DO Date: Plan [place] [employer] (ASA) physical status classification: [...] 01/09/22 * PT 02/06/22 * PT 03/06/22 [facility]08-25-2022 Hospital Discharge instructions Patient Education 10/05/2021 09:56:38 Colonoscopy, Care After Surgery Salam (CUSTOM) Colonoscopy Care After Surgery Please read the instructions outlined below and refer to this sheet in the next few weeks. These discharge instructions provide you with general information on [facility] Your doctor may also give you [...] Up Care 07/19/2021 09:30:23 With:Thais HINOJOSA Address: [address] [place] [address] Business (1) When: Unknown Comments:OFFICE WILL CALL DATE AND TIME OF FOLLOW-UP APPT. [facility]06-08-2022 Hospital Discharge instructions Patient Education 07/19/2021 09:11:00 [...] Follow these instructions at home: Medicines Take gyui-buo-cwpacdf and prescription medicines only as told by your health care provider. If you were prescribed an antibiotic medicine, take it as told by your health care provider. Do notstop taking the antibiotic even if you start to feel better. Eating and drinking Follow any diet changes as told by your health care provider. Work with a diet and literacy specialist (dietitian) to create an eating plan [...] 01/25/2001 Document Revised: 06/24/2019 Document Reviewed: 06/24/2019 [employer] Patient Education 2019 [employer] Follow Up Care 07/11/2021 11:18:24 With:Yusra Denis CNP Address: When:1 month [facility] [place] [facility] 05-16-2022 Hospital Discharge instructions Follow Up Care 06/26/2021 10:32:10 With:Dougie Harmon Address: [facility] [place] [address] [phone] Fax Business (1) When: Unknown Comments:cbc, cmp, cea in 6mofollow-up in 6mo [facility]03-22-2022 Evaluation + Plan noteExtracted from: Title:- [facility] Author:Aggie Hollingsworth Date :05/02/21 Impression [...] Date:02/27/2022 07:30:00 AM Scheduled Provider: [facility] App[facility] Type:Anticoagulation Remote 15 (FT) Appointment Date:05/17/2022 08:00:00 AM Scheduled Provider:Yusra Denis CNP Location:[facility] Appointment Type:[facility] Follow Up Appointment Date:06/27/2022 01:30:00 PM Scheduled Provider:Dougie Harmon DO [facility] App[facility] Type:ON[facility] Office Visit 15 (FT) Future [...] 01/09/22 * PT 02/06/22 * PT 03/06/22 [facility]07-26-2021 NoteHNO ID: [id number] Author: Cydney Koch APRN.MORNING SHOW HOST Service: ? Author Type: Nurse Practitioner Type: Progress Notes Filed: 09/05/2020 11:19 AM Note Text: [facility] Clinic Date: 09/05/2020 Lakia Rodriguez, 69 year old CHIEF COMPLAINT: Patient presents with: Post Op HPI: Lakia Rodriguez presents for follow up from surgery. Here for followup after Open incisional hernia repair with mesh and resection of skin on 08/12/[address]David mAaya. Doing well overall, and post operative recovery [...] if needed. Randomized control trial: RINSE/FIXATION Cydney Koch, TRINIDAD.MORNING SHOW HOST September 04, 2020 1113AM [facility] General Surgery [facility] Abdominal Core [facility]07-09-2021 NoteHNO ID: [id number] Author: Moris Shelton MD Service: General Surgery Author Type: Resident Type: Progress Notes Filed: 08/19/2020 7:28 AM Note Text: HERNIA SERVICE PROGRESS NOTE Patient Name: Lakia Rodriguez Date: 08/19/2020 Time: 7:27 AM Interval: [...] surg schedule 2-3 weeks. Moris Shelton MD [facility] Service [phone] For calls on nights and weekends, please page the gen surg pager: [phone] 7:27 AM, 08/19/2020 [facility]07-08-2021 NoteHNO ID: [id number] Author: Amanda Aldana MD Service: General Surgery Author Type: Resident Type: Progress Notes Filed: 08/18/2020 1:13 PM Note Text: HERNIA SERVICE PROGRESS NOTE Patient Name: Lakia Rodriguez Date: 08/18/2020 Time: 1:08 PM Interval: [...] interval not displayed. COAG: Recent Labs 08/18/20 05 INR 1.0 BMP: Recent Labs 08/18/20 0555 08/17/20 0656 08/16/20 0434 08/15/20 0632 08/14/20 0554 08/14/20 04208/13/20 0447 08/12/20 2356 GLUC 119* 134* 126* [...] 1.13 -- 1.20 CHEM: Recent Labs 08/18/20 0508/17/20 0656 08/16/20 04308/15/20 0632 08/14/20 2104 08/14/20 0554 08/14/20 0422 [...] schedule 2-3 weeks. MD Matthew Dinhiger Service [phone] For calls on nights and weekends, please page the gen surg pager: [phone] 1:08 PM, 08/18/2020 [facility]07-07-2021 NoteHNO ID: [id number] Author: Moris Shelton MD Service: General Surgery [...] 08/16/20699 - 08/17/2065808/17/20699 - 08/18/20 0659 Shift 5332-7303 9110-2689 9841-2201 24 Hour Total 5772-9282 0291-4603 1552-8793 24 Hour Total INTAKE PO 300 250 550 480 480 PO 300 250 550 480 480 Supplements (mL) 0 0 IV 75 75 Volume (mL) (lactated ringers iv infusion) 75 75 Shift Total 375 250 625 480 480 OUTPUT Urine 800 651 759 7707 351 351 Void (ml) 800 819 781 8192 351 351 Urine Not Saved. 1 x [...] 0 0 0 0 Shift Total 865 363 640 3772 411 411 Weight (kg) 93.4 93.4 93.4 [...] 1102 -- 08/12/20 1515 pneumatic compression stockings (wv,oh) 08/12/20 1515 activity - mobilize patient (wv,wa) VTE Prophylaxis: VTE prophylaxis appropriate Plan of care discussed with: Provider, RN, Patient SIGNATURE: Moris Shelton MD PATIENT NAME: Lakia Rodriguez DATE: August 17, 2020 TIME: 2:11 [facility]07-06-2021 NoteHNO ID: [id number] Author: Amanda Aldana MD Service: General Surgery Author Type: Resident Type: Progress Notes Filed: 08/16/2020 7:52 AM Note Text: SERVICE DATE: 08/16/2020 SERVICE TIME: 7:52 AM HERNIA SERVICE PROGRESS NOTE Patient Name: Lakia Rodriguez Date: 08/16/2020 Time: 5:44 AM Interval: [...] the last 168 hours. BMP: Recent Labs 08/15/2063108/14/2055308/14/2042108/13/2044608/12/20235508/09/20 0931 GLUC 132* 148* 131* -- 149* [...] 1.13 -- 1.20 1.32* CHEM: Recent Labs 08/15/2063108/14/20210308/14/2054 08/14/2042108/13/20 1724 08/12/20235508/09/20 0931 ALB -- -- [...] ambulation Encourage IS and pulmonary toilet Amanda Aldnaa MD [employer] Service [email or web address] For calls on nights and weekends, please page the gen surg pager: [phone] 5:44 AM, 08/16/2020 Assessment AND Plan Active Hospital Problems as of 08/16/2020 Noted - Resolved POA Hospital Ventral hernia 08/12/2020 - Present Yes Current Assessment AND Plan Assessment: 69 year old year old male 2 Days Post-Op s/p TAR for ventral hernia repair PLAN: KATYAF, advancing diet GI soft Switching to pain [...] 0856 -- 08/12/20 1515 pneumatic compression stockings ([place], [place]) 08/12/20 1515 activity - mobilize patient ([place]) VTE Prophylaxis: VTE prophylaxis appropriate Plan of care discussed with: Provider, RN, Patient and Care Management SIGNATURE: Amanda Aldana MD PATIENT NAME: Lakia Rodriguez DATE: August 16, 2020 TIME: 7:52 [facility]07-05-2021 NoteHNO ID: [id number] Author: Parish Gooden MD Service: General Surgery Author Type: Resident Type: Progress Notes Filed: 08/15/2020 6:30 AM Note Text: HERNIA SERVICE PROGRESS NOTE Patient Name: Lakia Rodriguez Date: 08/15/2020 Time: 5:47 AM Interval: [...] spontaneously Labs: CBC: Recent Labs 08/14/20 0554 08/14/20 0422 08/12/20 2356 08/09/20 0931 WBC 8.86 7.76 14.32* 5.19 HB [...] 168 hours. BMP: Recent Labs 08/14/20 0554 08/14/20 0422 08/13/20 0447 08/12/20 2356 08/09/20 0931 GLUC 148* 131* -- 149* 122* [...] CLD pending ROBF mucinex and duonebs Dilaudid SIDING APPLICATOR Ancef for 24 hours Lovenox Monitor JIM output PRN antiemetics Encourage OOB and ambulation Encourage IS and pulmonary toilet Parish Gooden MD For calls on nights and weekends, please page the gen surg pager: [phone] 5:47 AM, 08/15/2020 [facility]07-04-2021 NoteHNO ID: [id number] Author: Parish Gooden MD Service: General Surgery Author Type: Resident Type: Progress Notes Filed: 08/14/2020 1:42 PM Note Text: HERNIA SERVICE PROGRESS NOTE Patient Name: Lakia Rodriguez Date: 08/14/2020 Time: 1:38 PM Interval: [...] spontaneously Labs: CBC: Recent Labs 08/14/20 0554 08/14/20 0422 08/12/20235508/09/20 0931 WBC 8.86 7.76 14.32* 5.19 HB [...] 168 hours. BMP: Recent Labs 08/14/20 0554 08/14/20 0422 08/13/207 08/12/20235508/09/20 0931 GLUC 148* 131* -- 149* [...] 1.20 1.32* CHEM: Recent Labs 08/14/20 0554 08/14/20 0422 08/13/20 1724 08/12/20 2356 08/09/20 0931 ALB -- -- -- -- 4.0 [...] repair Sips and chips pending ROBF Dilaudid SIDING APPLICATOR Mccabe catheter d/zackery Ancef for 24 hours Lovenox Monitor JIM output PRN antiemetics Encourage OOB and ambulation Encourage IS and pulmonary toilet Parish Gooden MD For calls on nights and weekends, please page the gen surg pager: [phone] 1:38 PM, 08/14/2020 [facility]07-03-2021 NoteHNO ID: [id number] Author: Parish Gooden MD Service: General Surgery Author Type: Resident Type: Progress Notes Filed: 08/13/2020 8:41 AM Note Text: HERNIA SERVICE PROGRESS NOTE Patient Name: Lakia Rodriguez Date: 08/13/2020 Time: 8:39 AM Interval: [...] ventral hernia repair Clears pending ROBF Dilaudid SIDING APPLICATOR Mccabe to be removed POD 2 Ancef for 24 hours Heparin > Lovenox Monitor JIM output PRN antiemetics Encourage OOB and ambulation Encourage IS and pulmonary toilet Parish Gooden MD For calls on nights and weekends, please page the gen surg pager: [phone] 8:39 AM, 08/13/2020 [facility]06-29-2021 NoteHNO ID: [id number] Author: Ledy Johns RN Service: ? Author [...] By: Ledy Johns RN In Department: [facility] NoteHNO ID: [id number] Author: Felicia Amaya MD Service: ? Author Type: Physician Type: Progress Notes Filed: 06/28/2020 2:57 PM Note Text: Attending Note I evaluated the patient and personally participated in the rosen components. I agree with the resident's findings and plan as documented and have discussed the case and management of the patient's care with the resident. Signature: FELICIA AMAYA MD Mr Opal is known to me as I have [...] No Mesh Fixation for Open Retromuscular Repairs EMERGENCY RESPONSE OFFICER: Sydney Hassan MD COORDINATOR/Research Nurse/Welfare Visitor: Tiara Funes MD ? [email or web address] Consenting was performed by the attending surgeon, in a [id number] manner, during preoperative evaluation at the General [...] [] 2. The patient is fluent in German, has read the consent form and understood [...] 2. The patient is not fluent in German or cannot read the consent form and/or [...] Irrigation during Ventral Hernia Repair (RINSE Trial) EMERGENCY RESPONSE OFFICER: Sydney Hassan MD COORDINATOR/Research Nurse/Welfare Visitor: Tiara Funes MD ? [email or web address] Consenting was performed by the attending surgeon, in a [id number] manner, during preoperative evaluation at the General [...] [] 2. The patient is fluent in German, has read the consent form and understood study procedures [x] [] (more content not included)...[facility]05-17-2021 NoteHNO ID: [id number] Author: Ronn Givens MD Service: ? 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 Planned for [...] washout trials Ronn Givens MD, PhD Resident, PGY[facility] Plan note Future Appointments Appointment Date:06/19/2021 09:00:00 AM Scheduled Provider:Braeden SAENZ, Purnima Ha:.ONCOLOGY Appointment Type:ONC Office Visit 15 (FT) Appointment Date:06/23/2021 08:45:00 AM Scheduled Provider: [facility]oint[facility] Type:Anticoagulation Follow Up 15 (FT) Future Scheduled Tests Laboratory* PT 03/07/21 * PT 04/04/21 * PT 05/02/21 * PT 05/30/21 * PT 06/27/21 * PT 07/25/21 * PT 08/22/21 * PT 09/19/21 * PT 10/17/21 * PT 11/14/21 * PT 12/12/21 * PT 01/09/22 * PT 02/06/22 * PT [facility]/06/22 [facility] Future Appointments Appointment Date:06/26/2021 09:30:00 AM Scheduled Provider:Purnima Borden [facility] Appoint[facility] Type:ONC Office Visit 15 (FT) Future Scheduled Tests Laboratory* PT 03/07/21 * PT 04/04/21 * PT 05/02/21 * PT 05/30/21 * PT 06/27/21 * PT 07/25/21 * PT 08/22/21 * PT 09/19/21 * PT 10/17/21 * PT 11/14/21 * PT 12/12/21 * PT 01/09/22 * PT 02/06/22 * PT 03/06/22 [facility] Future Appointments Appointment Date:08/08/2021 08:30:00 AM Scheduled Provider: [facility] Appointment Type:Anticoagulation Follow Up 15 (FT) Appointment Date:08/28/2021 12:50:00 PM Scheduled Provider: Location:[facility] Appointment Type:Surgery FT Appointment Date:12/28/2021 01:00:00 PM Scheduled Provider:Dougie Harmon DO [facility] Appointment Type:ONC Office Visit 15 (FT) Future [...] 01/09/22 * PT 02/06/22 * PT 03/06/22 [facility] evaluation + Plan note Future Appointments Appointment Date:11/24/2021 09:30:00 AM Scheduled Provider: [facility] Appointment Type:Anticoagulation Follow Up 15 (FT) Appointment Date:12/28/2021 01:00:00 PM Scheduled Provider:Dougie Harmon DO [facility] Appointment Type:ONC Office Visit 15 (FT) Appointment Date:05/17/2022 08:00:00 AM Scheduled Provider:Yusra Denis CNP Location:[facility] Appointment Type:BADH Follow Up Future Scheduled [...] 01/09/22 * PT 02/06/22 * PT 03/06/22 [facility] Evaluation + Plan note Future Appointments Appointment Date:12/28/2021 01:00:00 PM Scheduled Provider:Dougie Harmon DO [facility] Appointment Type:ONC Office Visit 15 (FT) Appointment Date:01/09/2022 09:00:00 AM Scheduled Provider: [facility] Appointment Type:Anticoagulation Follow Up 15 (FT) Appointment Date:05/17/2022 08:00:00 AM Scheduled Provider:Yusra Denis CNP Location:[facility] Appointment Type:BADH Follow Up Future Scheduled Tests Laboratory* PT 03/07/21 * PT 04/04/21 * PT 05/02/21 * PT 05/30/21 * PT 06/27/21 * PT 07/25/21 * PT 08/22/21 * PT 09/19/21 * PT 10/17/21 * PT 11/14/21 * PT 12/12/21 * PT 01/09/22 * PT 02/06/22 * PT 03/06/22 [facility] Future Appointments Appointment Date:01/09/2022 09:00:00 AM Scheduled Provider: [facility] Appointment Type:Anticoagulation Follow Up 15 (FT) Appointment Date:05/17/2022 08:00:00 AM Scheduled Provider:Yusra Denis CNP Location:[facility] Appointment Type:BAD Follow Up Appointment Date:06/27/2022 01:30:00 PM Scheduled Provider:Dougie Harmon DO [facility] Appoint[facility] Type:ONC Office Visit 15 (FT) Future Scheduled Tests Laboratory* PT 03/07/21 * PT 04/04/21 * PT 05/02/21 * PT 05/30/21 * PT 06/27/21 * PT 07/25/21 * PT 08/22/21 * PT 09/19/21 * PT 10/17/21 * PT 11/14/21 * PT 12/12/21 * PT 01/09/22 * PT 02/06/22 * PT 03/06/22 [facility] Future Appointments Appointment Date:06/01/2022 09:30:00 AM Scheduled Provider: [facility] Appointment Type:Anticoagulation Follow Up 15 (FT) Appointment Date:06/15/2022 08:00:00 AM Scheduled Provider:Yusra Denis CNP Location:[facility] Appointment Type:BADH Follow Up Appointment Date:06/27/2022 02:00:00 PM Scheduled Provider:Dougie Harmon DO [facility] Appoint[facility] Type:ONC Office Visit 15 (FT) Future [...] PT 03/06/22 * Vitamin B12 Level 05/17/22 [facility] Evaluation + Plan note Future Appointments Appointment Date:06/27/2022 08:20:00 AM Scheduled Provider:Yusra Denis CNP Location:[facility] Appointment Type:BAD Follow Up Appointment Date:06/27/2022 02:00:00 PM Scheduled Provider:Dougie Harmon DO [facility] Appoint[facility] Type:ONC Office Visit 15 (FT) Appointment Date:07/10/2022 09:30:00 AM Scheduled Provider: [facility] Appointment Type:Anticoagulation Follow Up 15 (FT) Future [...] PT 03/06/22 * Vitamin B12 Level 05/17/22 [facility] Evaluation + Plan note Future Appointments Appointment Date:06/27/2023 02:00:00 PM Scheduled Provider:Dougie Harmon DO Location:.ONCOLOGY Appointment Type:ONC Office Visit 15 (FT) Future Scheduled Tests Laboratory* PT 04/30/22 * PT 05/31/22 * PT 06/30/22 * Vitamin B12 Level 06/27/22 Radiology* CT Abdomen/Pelvis w/ + w/o Contrast 04/15/23 [facility] Evaluation + Plan note Future Appointments Appointment Date:04/23/2023 12:00:00 PM Scheduled Provider: Location:FT.[facility] Appointment Type:CT Abdomen/Pelvis Combo (FT) Appointment Date:06/27/2023 02:00:00 PM Scheduled Provider:Dougie Harmon DO Location:FT.ONCOLOGY Appointment Type:ONC Office Visit 15 (FT) Future Scheduled Tests Laboratory* PT 04/30/22 * PT 05/31/22 * PT 06/30/22 * Vitamin B12 Level 06/27/22 Radiology* CT Abdomen/Pelvis w/ + w/o Contrast 04/23/23 [facility] Future Appointments Appointment Date:06/27/2023 02:00:00 PM Scheduled Provider:Dougie Harmon DO Location:FT.ONCOLOGY Appointment Type:ONC Office Visit 15 (FT) Future Scheduled Tests Laboratory* PT 04/30/22 * PT 05/31/22 * PT 06/30/22 * Vitamin B12 Level 06/27/22 [facility] Narrative No data available for this section [facility] Discharge instructions No data available for this section [facility] No data available for this section [facility] Summary Purpose Family History No Family History Records FoundNo Family History Records FoundNo Family History Records FoundNo Family History Records Found No data available for this section No Family History Records Found No data available for this section No data available for this section No data available for this section No Family History Records Found Advance Directives No Advanced Directives Records FoundNo Advanced Directives Records FoundNo Advanced Directives Records FoundNo Advanced Directives Records FoundNo Advanced Directives Records FoundNo Advanced Directives Records Found Hospital Course Note [address] [place] [address] Discharge Summary Signed:[id number] Name: LAKIA RODRIGUEZ MRUN: [id number] : 1950 Loc: 3S Age / Sex: 68/ M Adm Status: ADM Leonor Adm Date:06/03/19 Room/Bed: 317- Date of Service - Date of Service Date: 06/05/19 - Time Spent on Discharge Minutes spent on discharge:: 45 - Hospital Summary Hospital Summary:: This is a pleasant 68-year-old male with a history of diabetes mellitus and colon cancer was brought into the emergency room by the field sales representative for further evaluation and management of a syncopal event. Patient was in his usual state of health until this afternoon. 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 He was taking the exit to get to the Highway around 4:30 PM after exchanging the trailer with his colleague. He felt like his truck is spinning around. The next thing he knew was field sales representative were knocking on the door. He was [...] DATE CREATED AUTHOR AUTHOR'S ORGANIZ ATION 04/12/2020 [facility] DATE CREATED AUTHOR AUTHOR'S ORGANIZ ATION 03/09/2021 [facility] DATE CREATED AUTHOR AUTHOR'S ORGANIZ ATION 12/23/2021 [facility] DATE CREATED AUTHOR AUTHOR'S ORGANIZ ATION 01/25/2023 [facility] DATE CREATED AUTHOR AUTHOR'S ORGANIZ ATION 04/26/2023 [facility] Care Team (unrecognized sect ion and content) Personnel Name: Lakia Dyson MD Address: [address] [place] [address] Name: Jsoephine Zambrano MA Name: Aggie Colorado MA Personnel Name: Lakia Dyson MD Address: Address: [address] [place] [address] Name: Josephine Zambrano MA Name: Aggie Colorado MA Personnel Name: Lakia Dyson MD Address: Address: [address] [place] [address] Name: Juan ManuelJosephine mayen MA R Name: Rod Colorado MAy S Personnel Name: Lakia Dyson MD Address: Address: [address] [place] [address] Name: Juan ManuelJosephine mayen MA R Name: Stanislav BARAHONA Aggie S Personnel Name: Lakia Dyson MD Address: Address: [address] [place] [address] Name: Josephine Zambrano MA R Name: Aggie Colorado MA S Personnel Name: Lakia Dyson MD Address: Address: [address] [place] [address] Name: Josephine Zambrano MA R Name: Aggie Colorado MA S Personnel Name: Lakia Dyson MD Address: Address: [address] [place] [address] Name: Josephine Zambrano MA R Name: Aggie Colorado MA S Personnel Name: Lakia Dyson MD Address: Address: [address] [place] [address] Name: Josephine Zambrano MA R Name: Aggie Colorado MA S Personnel Name: Lakia Dyson MD Address: Address: [address] [place] [address] Name: Josephine Zambrano MA R Name: Rod Colorado MAy S Personnel Name: Lakia Dyson MD Address: Address: [address] [place] [address] Name: Josephine Zabmrano MA R Name: Aggie Colorado MA S Personnel Name: Lakia Dyson MD Address: Address: [address] [place] [address] Name: Josephine Zambrano MA R Name: Aggie Colorado MA S FOR [...] BE BASED ON THE PRIMARY CLINICAL RECORDS. [facility]. provides no warranty or guarantee of the accuracy or completeness of information in this document.
--- NOTE | 2023-04-26 10:58 | XR_ITS ---
The [address] [address] Patient Name: LAKIA RODRIGUEZ MRN: [id number] date: 1950 Sex: M Assigned Patient Location: ER Current Patient Location: ER Accession/Order Number: [id number] Exam Date: 04/26/2023 11:22 Report Date: 04/26/2023 11:57 At the request of: MARIO ALBERTO VELAZQUEZ Procedure: XR chest 2V EXAMINATION: XR chest 2V HISTORY: dizzy , right back pain COMPARISON: XR chest 03/23/2023 FINDINGS: LUNGS: No significant pulmonary parenchymal abnormalities. VASCULATURE: No increased pulmonary vasculature. PLEURA: No pneumothorax, effusion, or pleural thickening. CARDIAC: No cardiomegaly or cardiac silhouette abnormality. MEDIASTINUM: No visible mass or adenopathy. BONES: No fracture or visible bone lesion. OTHER: Stable cardiac pacer. XR/XR chest 2V IMPRESSION: 1. No acute cardiopulmonary process. Stable chest. Electronically authenticated by: ALEXSANDER WALKER Date: 04/26/2023 11:57
--- NOTE | 2023-04-26 10:59 | XR_ITS ---
The [place] [id number] Patient Name: LAKIA RODRIGUEZ MRN: [id number] date: 1950 Sex: M Assigned Patient Location: ER Current Patient Location: ER Accession/Order Number: [id number] Exam Date: 04/26/2023 11:22 Report Date: 04/26/2023 12:00 At the request of: MARIO ALBERTO VELAZQUEZ Procedure: XR lumbar spine 2-3V EXAMINATION: XR lumbar spine 2-3V HISTORY: right sciatica , lower right back pain COMPARISON: CT abdomen pelvis 09/21/2020 FINDINGS: BONES: Mild degenerative facet arthropathy L3-4 through L5-S1. No fracture or spondylolisthesis. DISC SPACES: Moderate-marked narrowing L4-5. PARASPINOUS: Negative. No paraspinous abnormality is seen. OTHER: Negative. XR/XR lumbar spine 2-3V IMPRESSION: 1. Degenerative changes of lumbar spine predominantly involving L4-5; grossly stable. Electronically authenticated by: ALEXSANDER WALKER Date: 04/26/2023 12:00
--- NOTE | 2023-04-26 11:04 | ED.GENADUL1 ---
HPI - General Adult General Chief complaint: Back Pain/Injury Stated complaint: LOWER BACK PAIN Time Seen by Provider: 04/26/23 10:57 Source: patient Mode of arrival: ambulance Limitations: no limitations History of Present Illness HPI narrative: Patient is a very pleasant 72-year-old male who is presenting to the ER today with 2 chief complaints. Patient is having right lower back pain, buttock pain, and lumbar radiculopathy is going down the right lateral aspect of his leg all the way down to his right fourth and fifth toe. Patient has no headache or neck pain. Patient has no chest pain or shortness of breath currently. Patient was at home, stated the pain started last evening. Patient had sciatica 15 to 20 years ago previously. Patient does not remember any heavy lifting, twisting or turning. Patient stated that when he got up this morning, he was having right severe pain from his right buttock down his right lateral leg. Patient was able to go to the restroom, he has no saddle anesthesia or cauda equina. Patient stated that he was standing in the kitchen, and we went to stand up from a seated chair, he became lightheaded, slightly dizzy with no vertigo, warm, flushed, and almost had a near syncopal episode. Patient is having pain when he sitting on his right buttock. Patient had a wallet in his right back pocket, this was removed and put in his hat to take the pressure off his right buttock/piriformis muscle. Patient currently does not feel any near syncopal episode. Patient is looking at the door handle, sitting it slightly blurry and moving slightly with positional change. No vertigo, no headache, no strokelike signs or symptoms. Patient has significant medical history of in November had a heart rate in the 200s, patient was in [place] where a pacemaker was placed. A wire broke off the pacemaker and punctured his lung, patient had surgery for lung collapse as well. In 2015 patient had evidence of rectal cancer where he surgery was performed, patient had several treatments of radiation and chemotherapy. Patient has chronic discoloration to the lower extremities from the cancer treatments. They have recently found a spot on his pancreas for patient will be going to the [facility] as well for concern for possible small spot on his pancreas that is a concern for pancreatic cancer. All systems are negative except as noted/marked. All systems reviewed and otherwise negative. Nurses note and vital signs reviewed and patient is not hypoxic. General: The patient appears well and in no apparent distress. Patient is resting comfortably on cart. Patient is not toxic, lethargic, or listless Skin: Warm, dry, no pallor noted. There is no rash noted. No petechiae, purpura. Patient has chronic skin changes to his bilateral lower extremities from previous chemo and radiation. Head: Normocephalic, atraumatic Eye: Normal conjunctiva, no drainage, EOMI. PERRL; no nystagmus vertical, horizontal or rotary. Ears, Nose, Mouth, and Throat: oral mucosa is moist. Nares patent. Mouth without vesicles. Cardiovascular: Regular Rate and Rhythm, no murmur, gallop, rub Respiratory: Patient is in no distress, no accessory muscle use, lungs are clear to auscultation, no wheezing, rales or rhonchi Back: Mild right paralumbar tenderness to palpation, moderate right piriformis tenderness to palpation, no left paralumbar, no left piriformis tenderness palpation, negative straight leg raising test bilateral, no pain to the right hip with flexion extension internal/external rotation of the right hip, otherwise non-tender, no CVA tenderness bilaterally to percussion. No CT LS midline pain GI: no tenderness to palpation, no masses appreciated. No rebound, guarding, or rigidity noted. No distention Musculoskeletal: Patient has full range of motion of all of the extremities, no motor, sensory, or focal neurological deficits Neurological: A&O x4, normal speech Psychiatric: Cooperative Related Data Home Medications Medication Instructions Recorded Confirmed amlodipine 2.5 mg tablet 2.5 mg PO DAILY 11/24/22 03/23/23 atorvastatin 10 mg tablet 10 mg PO DAILY 11/24/22 03/23/23 glipizide 5 mg tablet 5 mg PO DAILY 11/24/22 03/23/23 lisinopril 2.5 mg tablet 2.5 mg PO DAILY 11/24/22 03/23/23 warfarin 4 mg tablet 4 mg PO DAILY 11/24/22 03/23/23 amiodarone 200 mg tablet 400 mg PO DAILY 03/23/23 03/23/23 dapagliflozin propanediol 10 mg 10 mg PO DAILY 03/23/23 03/23/23 tablet (Farxiga) metoprolol succinate 50 mg 50 mg PO DAILY 03/23/23 03/23/23 tablet,extended release 24 hr multivitamin with minerals-folic 1 tab PO DAILY 03/23/23 03/23/23 acid 200 mcg chewable tablet (Daily Gummies) pantoprazole 40 mg tablet,delayed 40 mg PO DAILY 03/23/23 03/23/23 release Previous Rx's Medication Instructions Recorded albuterol sulfate 90 mcg/actuation 2 inh inhalation Q6H PRN shortness 03/24/23 aerosol inhaler of breath or wheezing #6.7 grams benzonatate 100 mg capsule 100 mg PO BID PRN cough #20 caps 03/24/23 prednisone 20 mg tablet 20 mg PO BID 5 days #10 tabs 03/24/23 hydrocodone 5 mg-acetaminophen 325 0.5 tab PO Q4H PRN pain #10 tabs 04/26/23 mg tablet methocarbamol 500 mg tablet 500 mg PO Q8H PRN muscle pain #10 04/26/23 tabs Allergies Allergy/AdvReac Type Severity Reaction Status Date / Time Penicillins Allergy Unknown Verified 01/12/23 16:20 PFSH PFS Medical History (Updated 04/26/23 @ 13:06 by Domingo Quintero MD) HLD (hyperlipidemia) ?E78.5 - Hyperlipidemia, unspecified (ICD-10) Acute asthma exacerbation ?J45.901 - Unspecified asthma with (acute) exacerbation (ICD-10) Leukocytosis ?D72.829 - Elevated white blood cell count, unspecified (ICD-10) Coronavirus infection ?B34.2 - Coronavirus infection, unspecified (ICD-10) HTN (hypertension) ?I10 - Essential (primary) hypertension (ICD-10) H/O ventricular tachycardia ?Z86.79 - Personal history of other diseases of the circulatory system (ICD-10) Type 2 diabetes mellitus ?E11.9 - Type 2 diabetes mellitus without complications (ICD-10) Colon cancer ?C18.9 - Malignant neoplasm of colon, unspecified (ICD-10) Presence of combination internal cardiac defibrillator (ICD) and pacemaker ?Z95.810 - Presence of automatic (implantable) cardiac defibrillator (ICD-10) Pacemaker ?Z95.0 - Presence of cardiac pacemaker (ICD-10) COVID-19 ?U07.1 - COVID-19 (ICD-10) Social History (Updated 03/24/23 @ 15:09 by Shaikh Kayode MD) Within the past year, how often did you have a drink containing alcohol: never Within the past year, how many standard drinks containing alcohol did you have on a typical day: 1 or 2 Within the past year, how often did you have six or more drinks on one occasion: never Total score: 0 Score interpretation: A score less than 4 is consistent with normal alcohol consumption. Smoking status: Never smoker Non-prescribed substance use: denies use Exam Constitutional Vital Signs, click to edit/add: Last Vital Signs Temp 98.5 F 04/26/23 10:24 Pulse 60 04/26/23 12:30 Resp 12 04/26/23 12:30 BP 118/79 04/26/23 13:00 Pulse Ox 96 04/26/23 12:30 O2 Del Method Room Air 04/26/23 10:24 Course Vital Signs Vital signs: Vital Signs Temperature 98.5 F 04/26/23 10:24 Pulse Rate 59 L 04/26/23 10:24 Respiratory Rate 18 04/26/23 10:24 Blood Pressure 180/95 H 04/26/23 10:24 Pulse Oximetry 98 04/26/23 10:24 Oxygen Delivery Method Room Air 04/26/23 10:24 Temperature 98.5 F 04/26/23 10:24 Pulse Rate 60 04/26/23 12:30 Respiratory Rate 12 04/26/23 12:30 Blood Pressure 118/79 04/26/23 13:00 Pulse Oximetry 96 04/26/23 12:30 Oxygen Delivery Method Room Air 04/26/23 10:24 Medical Decision Making [facility] Narrative Medical decision making narrative: EKG and chest x-ray showed no acute findings. Patient had lumbar x-ray shows degenerative changes of lumbar spine predominantly involving L4-L5, grossly stable. Patient was given medication to help with pain, the edge was taken off. Patient was given a small dose of morphine, Tylenol, and Toradol. Education at discharge was discussed on stretching with sciatica and piriformis stretching. Patient will follow-up and start doing stretching exercises we can, and follow-up with Dr. Burden as needed. Outpatient physical therapy will be set up with Dr. Burden as well. No questions at discharge. Patient feels comfortable coming back. I spoke to the patient several times about ice, stretching at home starting tonight. Lab Data Labs: Lab Results 04/26/23 Range/Units 10:33 WBC 7.4 (4.0-11.0) 10^3/uL RBC 5.82 (4.70-6.10) 10^6/uL Hgb 17.3 (14.0-18.0) g/dL Hct 54.0 (42.0-54.0) % MCV 92.8 (80.0-94.0) fL MCH 29.7 (25.9-34.0) pg MCHC 32.0 (29.9-35.2) g/dL RDW 14.9 (11.0-15.0) % Plt Count 203 (150-450) 10^3/uL MPV 10.4 (9.5-13.5) fL Neut % (Auto) 77.7 H (43.0-75.0) % Lymph % (Auto) 12.6 L (20.5-60.0) % [place] % (Auto) 6.6 (1.7-12.0) % Eos % (Auto) 1.4 (0.9-7.0) % Baso % (Auto) 0.3 (0.2-2.0) % Neut # (Auto) 5.8 (1.4-6.5) 10^3/uL Lymph # (Auto) 0.9 L (1.2-3.8) 10^3/uL [place] # (Auto) 0.5 (0.3-0.8) 10^3/uL Eos # (Auto) 0.1 (0.0-0.7) 10^3/uL Baso # (Auto) 0.0 (0.0-0.1) 10^3/uL Abs Immat Gran (auto) 0.10 H (0.00-0.03) 10^3/uL Imm/Tot Granulo (auto) 1.4 H (0.0-0.5) % PT 22.8 H (9.0-11.6) sec INR 2.25 Sodium 137 (136-145) mmol/L Potassium 4.0 (3.5-5.1) mmol/L Chloride 102 (98-107) mmol/L Carbon Dioxide 27.9 (21.0-32.0) mmol/L Anion Gap 11.1 BUN 16.0 (7.0-18.0) mg/dL Creatinine 1.67 H (0.70-1.30) mg/dL Est GFR ( Amer) 50 L (>=60) Est GFR (Non-Af Amer) 41 L (>=60) BUN/Creatinine Ratio 9.6 Glucose 261 H (74-106) mg/dL Calcium 9.2 (8.5-10.1) mg/dL Total Bilirubin 0.5 (0.2-1.0) mg/dL AST 22 (15-37) U/L ALT 35 (16-63) U/L Alkaline Phosphatase 115 (46-116) U/L Troponin I High Sens 6.6 (4.0-76.1) pg/mL Total Protein 6.7 (6.4-8.2) g/dL Albumin 3.4 (3.4-5.0) g/dL Globulin 3.3 g/dL Albumin/Globulin Ratio 1.0 Lipase 29.0 (16.0-77.0) U/L ECG Data Attestation: I personally reviewed and interpreted this ECG as follows: (EKG interpretation. Electroclinical atrial paced rhythm at 60 beats a minute. Left axis deviation. Artifact noted, low voltage is seen.) Discharge Plan Discharge Stand Alone Forms: Portal Instructions Chief Complaint: Back Pain/Injury Clinical Impression: Piriformis syndrome of right side, Dizziness, Acute right-sided back pain with sciatica, Near syncope, Right lumbar radiculopathy Patient Disposition: Home, Self-Care Time of Disposition Decision: 13:08 Condition: Fair Prescriptions / Home Meds: New hydrocodone-acetaminophen 5-325 mg tablet 0.5 tab PO Q4H PRN (Reason: pain) Qty: 10 0RF Rx Instructions: 0.5-1 tab every 4 hours prn pain methocarbamol 500 mg tablet 500 mg PO Q8H PRN (Reason: muscle pain) Qty: 10 0RF No Action amiodarone 200 mg tablet 400 mg PO DAILY dapagliflozin propanediol [Farxiga] 10 mg tablet 10 mg PO DAILY metoprolol succinate 50 mg tablet extended release 24 hr 50 mg PO DAILY multivit with min-folic acid [Daily Gummies] 200 mcg tablet,chewable 1 tab PO DAILY pantoprazole 40 mg tablet,delayed release (DR/EC) 40 mg PO DAILY prednisone 20 mg tablet 20 mg PO BID 5 Days Qty: 10 0RF benzonatate 100 mg capsule 100 mg PO BID PRN (Reason: cough) Qty: 20 0RF albuterol sulfate 90 mcg/actuation HFA aerosol inhaler 2 inh inhalation Q6H PRN (Reason: shortness of breath or wheezing) Qty: 6.7 0RF amlodipine 2.5 mg tablet 2.5 mg PO DAILY atorvastatin 10 mg tablet 10 mg PO DAILY lisinopril 2.5 mg tablet 2.5 mg PO DAILY glipizide 5 mg tablet 5 mg PO DAILY warfarin 4 mg tablet 4 mg PO DAILY Instructions: Acute Low Back Pain (ED), Near Syncope (ED), Lightheadedness (ED), Piriformis Syndrome (ED), Lower Back Exercises (ED) Additional Instructions: Continue using ice 20 minutes on, 20 minutes off. Do not use heat. Stretching exercises shown at bedside and on discharge paperwork. Use half a tablet or 1 tablet of [place] every 4 hours to help with pain. Do not take [place] with Tylenol, you could actually take too much Tylenol together. I have spoken to Dr. Burden today at 1300, he will arrange and set up physical therapy to help with sciatica and piriformis syndrome as well. Increase fluids at home. Any other acute concerns follow-up with Dr. Burden. Of your lumbar x-ray was given to you as well. Referrals: SILVIO AGUILA [Primary Care Provider] - 1 week Discharge Date/Time: 04/26/23 13:38
[2023-04-26 11:09] LABS: Basophils Percent Auto 0.3 % (0.2-2.0); Eosinophils Absolute Auto 0.1 10^3/uL (0.0-0.7); Eosinophils Percent Auto 1.4 % (0.9-7.0); Hemoglobin 17.3 g/dL (14.0-18.0); Immature Granulocytes Pct Auto 1.4 % (0.0-0.5); Lymphocytes Absolute Auto 0.9 10^3/uL (1.2-3.8); Lymphocytes Percent Auto 12.6 % (20.5-60.0); Mean Corpuscular Hemoglobin 29.7 pg (25.9-34.0); Mean Corpuscular Volume 92.8 fL (80.0-94.0); Mean Platelet Volume 10.4 fL (9.5-13.5); Monocytes Absolute Auto 0.5 10^3/uL (0.3-0.8); Monocytes Percent Auto 6.6 % (1.7-12.0); Neutrophils Absolute Auto 5.8 10^3/uL (1.4-6.5); Neutrophils Percent Auto 77.7 % (43.0-75.0); Platelet Count 203 10^3/uL (150-450); Red Blood Count 5.82 10^6/uL (4.70-6.10); Red Cell Distribution Width 14.9 % (11.0-15.0); White Blood Count 7.4 10^3/uL (4.0-11.0)
[2023-04-26] MEDS: KETOROLAC TROMETHAMINE 30 MG/ML VIAL 15 MG IVP (11:11)
[2023-04-26] MEDS: ACETAMINOPHEN 325 MG TABLET 650 MG PO (11:11)
[2023-04-26] MEDS: MORPHINE SULFATE 2 MG/ML SYRINGE IV (11:12)
[2023-04-26] MEDS: 0.9 % SODIUM CHLORIDE 1,000 ML 1000 ML IV (11:12)
[2023-04-26 11:15] LABS: INR 2.25; Prothrombin Time 22.8 sec (9.0-11.6)
[2023-04-26 11:19] LABS: Alanine Aminotransferase 35 U/L (16-63); Albumin Level 3.4 g/dL (3.4-5.0); Alkaline Phosphatase 115 U/L (46-116); Anion Gap 11.1; Aspartate Amino Transferase 22 U/L (15-37); BUN Creatinine Ratio 9.6; Bilirubin Total 0.5 mg/dL (0.2-1.0); Calcium 9.2 mg/dL (8.5-10.1); Carbon Dioxide 27.9 mmol/L (21.0-32.0); Chloride 102 mmol/L (98-107); Estimated GFR (African America 50 (>=60); Estimated GFR (Non-African Ame 41 (>=60); Globulin 3.3 g/dL; Glucose 261 mg/dL (74-106); Sodium 137 mmol/L (136-145); Total Protein 6.7 g/dL (6.4-8.2); Troponin I High Sensitivity 6.6 pg/mL (4.0-76.1)
== END 2023-04-26 13:38 | disposition home or self-care (01) ==
PROVIDERS: Emergency Provider Emergency Medicine; PCP Nurse Practitioner Family
DX: G57.01 Lesion of sciatic nerve, right lower limb (principal); R42 Dizziness and giddiness; M54.41 Lumbago with sciatica, right side; R55 Syncope and collapse; Z85.048 Personal history of other malignant neoplasm of rectum, rectosigmoid junction, and anus; Z79.01 Long term (current) use of 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; Z79.899 Other long term (current) drug therapy; E78.5 Hyperlipidemia, unspecified; J45.909 Unspecified asthma, uncomplicated; Z86.16 Personal history of COVID-19; Z95.0 Presence of cardiac pacemaker; E11.9 Type 2 diabetes mellitus without complications; I10 Essential (primary) hypertension
CPT/HCPCS: 36415; 71046; 72100; 80053; 83690; 84484; 85025; 85610; 93005; 96361; 96374; 96375; 99285

== ENCOUNTER 2023-04-30 14:06 | Outpatient (RCR) | payer MEDICARE, OTHER, SELFPAY | END 2023-05-08 15:29 | disposition home or self-care (01) | LOC: PT 14:06 | PROVIDERS: PCP Nurse Practitioner Family; Visit Provider Family Medicine | DX: M54.30 Sciatica, unspecified side (principal) | CPT/HCPCS: 97110; 97140; 97163 ==

== ENCOUNTER 2023-05-09 06:19 | Inpatient (IN) | payer MEDICARE, OTHER, SELFPAY ==
[2023-05-09] VITALS (9 sets, daily range): BP systolic 140–190; BP diastolic 85–110; PULSE 60–64; RESP 16–20; TEMP 36.3–36.7; O2SAT 92–99; BMI 28.8; BMI 29.5
--- NOTE | 2023-05-09 06:34 | ED_ITS ---
Documented by User: Angélica Pepe MD 05/10/23 04:00 Review of Systems ROS Status of ROS 10 or more systems reviewed and unremark able except as noted in history and below PFSH [facility] Medical History (Updated 05/09/23 @ 09:45 by Jeremiah Oliveira MD) HLD (hyperlipidemia) ?E78.5 - Hyperlipidemia, unspecified (ICD-10) Acute asthma exacerbation ?J45.901 - Unspecified asthma with (acute) exacerbation (ICD-10) Leukocytosis ?D72.829 - Elevated white blood cell count, unspecified (ICD-10) Coronavirus infection ?B34.2 - Coronavirus infection, unspecified (ICD-10) HTN (hypertension) ?I10 - Essential (primary) hypertension (ICD-10) H/O ventricular tachycardia ?Z86.79 - Personal history of other diseases of the circulatory system (ICD- 10) Type 2 diabetes mellitus ?E11.9 - Type 2 diabetes mellitus without complications (ICD-10) Colon cancer ?C18.9 - Malignant neoplasm of colon, unspecified (ICD-10) Presence of combination internal cardiac defibrillator (ICD) and pacemaker ?Z95.810 - Presence of automatic (implantable) cardiac defibrillator (ICD-10) Pacemaker ?Z95.0 - Presence of cardiac pacemaker (ICD-10) COVID-19 ?U07.1 - COVID-19 (ICD-10) Family History (Updated 05/09/23 @ 10:42 by Megan Winter) Father Family history of cancer Family history of diabetes mellitus Family history of hypertension Mother Family history of myocardial infarction Grandmother Family history of stroke Social History (Updated 05/09/23 @ 10:45 by Megan Winter) Within the past year, how often did you have a drink containing alcohol: never Within the past year, how many standard drinks containing alcohol did you have on a typical day: 1 or 2 Within the past year, how often did you have six or more drinks on one occasion: never Total score: 0 Score interpretation: A score less than 4 is consistent with normal alcohol consumption. 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 Highest level of school completed/degree received: some college, no degree In a typical week, how many times do you talk on the telephone with family, friends, or neighbors: 3 or more times per week How often do you get together with friends or relatives: once per week How often do you attend orthodoxy or nondenominational services: never Do you belong to any clubs or organizations such as orthodoxy groups unions, fraternal or athletic groups, or school groups: no Little interest or pleasure in doing things: not at all Feeling down, depressed, or hopeless: not at all Feel stressed/tense/nervous/anxious/difficulty sleeping: not at all Exam Narrative Exam Narrative: Nurses note and vital signs reviewed and patient is not hypoxic. General: The patient appears well and in no apparent distress. Patient is rest ing comfortably on cart. Skin: Warm, dry, no pallor noted. There is no rash noted. Head: Normocephalic, atraumatic Eye: Normal conjunctiva, no drainage, EOMI. PERRL Ears, Nose, Mouth, and Throat: oral mucosa is moist. Cardiovascular: Regular Rate and Rhythm Respiratory: Patient is in no distress, no accessory muscle use, lungs are clear to auscultation, no wheezing, rales or rhonchi Back: non-tender, no CVA tenderness bilaterally to percussion. GI: Normal bowel sounds, no tenderness to palpation, no masses appreciated. No rebound, guarding, or rigidity noted. Musculoskeletal: The patient has no evidence of calf tenderness, no pitting edema, symmetrical pulses noted bilaterally Neurological: A&O x4, normal speech Psychiatric: Cooperative Constitutional Vital Signs, click to edit/add: Last Vital Signs Temp 98.0 F 05/09/23 23:07 Pulse 60 05/10/23 02:00 Resp 18 05/09/23 23:07 BP 156/89 H 05/09/23 23:07 Pulse Ox 93 L 05/10/23 02:00 O2 Del Method Room Air 05/09/23 23:07 Course Vital Signs Vital signs: Vital Signs Temperature 97.7 F 05/09/23 06:22 Pulse Rate 64 05/09/23 06:22 Blood Pressure 190/110 H 05/09/23 06:22 Pulse Oximetry 99 05/09/23 06:22 Oxygen Delivery Method Room Air 05/09/23 06:22 Temperature 98.0 F 05/09/23 23:07 Pulse Rate 60 05/10/23 02:00 Respiratory Rate 18 05/09/23 23:07 Blood Pressure 156/89 H 05/09/23 23:07 Pulse Oximetry 93 L 05/10/23 02:00 Oxygen Delivery Method Room Air 05/09/23 23:07 MDM - Back Pain/Injury Lab Data Labs: Lab Results 05/09/23 Range/Units 06:32 WBC 17.9 H (4.0-11.0) 10^3/uL RBC 6.35 H (4.70-6.10) 10^6/uL Hgb 18.9 H (14.0-18.0) g/dL Hct 58.2 H (42.0-54.0) % MCV 91.7 (80.0-94.0) fL MCH 29.8 (25.9-34.0) pg MCHC 32.5 (29.9-35.2) g/dL RDW 16.1 H (11.0-15.0) % Plt Count 238 (150-450) 10^3/uL MPV 11.2 (9.5-13.5) fL Neut % (Auto) 81.1 H (43.0-75.0) % Lymph % (Auto) 10.4 L (20.5-60.0) % Brooks % (Auto) 6.9 (1.7-12.0) % Eos % (Auto) 0.1 L (0.9-7.0) % Baso % (Auto) 0.2 (0.2-2.0) % Neut # (Auto) 14.5 H (1.4-6.5) 10^3/uL Lymph # (Auto) 1.9 (1.2-3.8) 10^3/uL Brooks # (Auto) 1.2 H (0.3-0.8) 10^3/uL Eos # (Auto) 0.0 (0.0-0.7) 10^3/uL Baso # (Auto) 0.0 (0.0-0.1) 10^3/uL Abs Immat Gran (auto) 0.23 H (0.00-0.03) 10^3/uL Imm/Tot Granulo (auto) 1.3 H (0.0-0.5) % ESR 17 (<=20) mm/hr PT 35.6 H (9.0-11.6) sec INR 3.61 Sodium 139 (136-145) mmol/L Potassium 4.4 (3.5-5.1) mmol/L Chloride 101 (98-107) mmol/L Carbon Dioxide 27.8 (21.0-32.0) mmol/L Anion Gap 14.6 BUN 28.0 H (7.0-18.0) mg/dL Creatinine 1.36 H (0.70-1.30) mg/dL Est GFR ( Amer) >60 (>=60) Est GFR (Non-Af Amer) 52 L (>=60) BUN/Creatinine Ratio 20.6 Glucose 156 H (74-106) mg/dL Calcium 10.1 (8.5-10.1) mg/dL Total Bilirubin 0.6 (0.2-1.0) mg/dL AST 14 L (15-37) U/L ALT 58 (16-63) U/L Alkaline Phosphatase 98 (46-116) U/L C-Reactive Protein <0.50 (<=0.50) mg/dL Total Protein 7.4 (6.4-8.2) g/dL Albumin 4.0 (3.4-5.0) g/dL Globulin 3.4 g/dL Albumin/Globulin Ratio 1.[address] lumbar: Radiologist's impression: ITS Impressions Lumbar Spine CT 05/09/23 07:34 IMPRESSION: 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 No acute fracture Electronically authenticated by: FELICIA BENITEZ Date: 05/09/2023 08:44 Discharge Plan Discharge Chief Complaint: Back Pain/Injury Clinical Impression: Intractable low back pain, Unable to ambulate Patient Disposition: Admitted as Observation Discharge Date/Time: 05/09/23 10:02 Documented by User: Jeremiah Oliveira MD 05/09/23 09:45 [facility] Medical History (Updated 05/09/23 @ 09:45 by Jeremiah Oliveira MD) HLD (hyperlipidemia) ?E78.5 - Hyperlipidemia, unspecified (ICD-10) Acute asthma exacerbation ?J45.901 - Unspecified asthma with (acute) exacerbation (ICD-10) Leukocytosis ?D72.829 - Elevated white blood cell count, unspecified (ICD-10) Coronavirus infection ?B34.2 - Coronavirus infection, unspecified (ICD-10) HTN (hypertension) ?I10 - Essential (primary) hypertension (ICD-10) H/O ventricular tachycardia ?Z86.79 - Personal history of other diseases of the circulatory system (ICD- 10) Type 2 diabetes mellitus ?E11.9 - Type 2 diabetes mellitus without complications (ICD-10) Colon cancer ?C18.9 - Malignant neoplasm of colon, unspecified (ICD-10) Presence of combination internal cardiac defibrillator (ICD) and pacemaker ?Z95.810 - Presence of automatic (implantable) cardiac defibrillator (ICD-10) Pacemaker ?Z95.0 - Presence of cardiac pacemaker (ICD-10) COVID-19 ?U07.1 - COVID-19 (ICD-10) Family History (Updated 05/09/23 @ 10:42 by Megna Winter) Father Family history of cancer Family history of diabetes mellitus Family history of hypertension Mother Family history of myocardial infarction Grandmother Family history of stroke Social History (Updated 05/09/23 @ 10:45 by Megan Winter) Within the past year, how often did you have a drink containing alcohol: never Within the past year, how many standard drinks containing alcohol did you have on a typical day: 1 or 2 Within the past year, how often did you have six or more drinks on one occasion: never Total score: 0 Score interpretation: A score less than 4 is consistent with normal alcohol consumption. 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 Highest level of school completed/degree received: some college, no degree In a typical week, how many times do you talk on the telephone with family, friends, or neighbors: 3 or more times per week How often do you get together with friends or relatives: once per week How often do you attend orthodoxy or nondenominational services: never Do you belong to any clubs or organizations such as orthodoxy groups unions, fraternal or athletic groups, or school groups: no Little interest or pleasure in doing things: not at all Feeling down, depressed, or hopeless: not at all Feel stressed/tense/nervous/anxious/difficulty sleeping: not at all Exam Constitutional Vital Signs, click to edit/add: Last Vital Signs Temp 98.0 F 05/09/23 23:07 Pulse 60 05/10/23 02:00 Resp 18 05/09/23 23:07 BP 156/89 H 05/09/23 23:07 Pulse Ox 93 L 05/10/23 02:00 O2 Del Method Room Air 05/09/23 23:07 Course Vital Signs Vital signs: Vital Signs Temperature 97.7 F 05/09/23 06:22 Pulse Rate 64 05/09/23 06:22 Blood Pressure 190/110 H 05/09/23 06:22 Pulse Oximetry 99 05/09/23 06:22 Oxygen Delivery Method Room Air 05/09/23 06:22 Temperature 98.0 F 05/09/23 23:07 Pulse Rate 60 05/10/23 02:00 Respiratory Rate 18 05/09/23 23:07 Blood Pressure 156/89 H 05/09/23 23:07 Pulse Oximetry 93 L 05/10/23 02:00 Oxygen Delivery Method Room Air 05/09/23 23:07 MDM - Back Pain/Injury MDM Narrative Medical decision making narrative: JK 9:45 AM CAT scan shows no acute findings, degenerative changes present. He is unable to ambulate and will be admitted. Findings are discussed with the patient and Dr. Renae. Differential Diagnosis Differential diagnosis: Likely lumbar radiculopathy, sciatica, strain of lumbar region and other (Fracture, degenerative disc disease) Lab Data Labs: Lab Results 05/09/23 Range/Units 06:32 WBC 17.9 H (4.0-11.0) 10^3/uL RBC 6.35 H (4.70-6.10) 10^6/uL Hgb 18.9 H (14.0-18.0) g/dL Hct 58.2 H (42.0-54.0) % MCV 91.7 (80.0-94.0) fL MCH 29.8 (25.9-34.0) pg MCHC 32.5 (29.9-35.2) g/dL RDW 16.1 H (11.0-15.0) % Plt Count 238 (150-450) 10^3/uL MPV 11.2 (9.5-13.5) fL Neut % (Auto) 81.1 H (43.0-75.0) % Lymph % (Auto) 10.4 L (20.5-60.0) % Brooks % (Auto) 6.9 (1.7-12.0) % Eos % (Auto) 0.1 L (0.9-7.0) % Baso % (Auto) 0.2 (0.2-2.0) % Neut # (Auto) 14.5 H (1.4-6.5) 10^3/uL Lymph # (Auto) 1.9 (1.2-3.8) 10^3/uL [place] # (Auto) 1.2 H (0.3-0.8) 10^3/uL Eos # (Auto) 0.0 (0.0-0.7) 10^3/uL Baso # (Auto) 0.0 (0.0-0.1) 10^3/uL Abs Immat Gran (auto) 0.23 H (0.00-0.03) 10^3/uL Imm/Tot Granulo (auto) 1.3 H (0.0-0.5) % ESR 17 (<=20) mm/hr PT 35.6 H (9.0-11.6) sec INR 3.61 Sodium 139 (136-145) mmol/L Potassium 4.4 (3.5-5.1) mmol/L Chloride 101 (98-107) mmol/L Carbon Dioxide 27.8 (21.0-32.0) mmol/L Anion Gap 14.6 BUN 28.0 H (7.0-18.0) mg/dL Creatinine 1.36 H (0.70-1.30) mg/dL Est GFR ( Amer) >60 (>=60) Est GFR (Non-Af Amer) 52 L (>=60) BUN/Creatinine Ratio 20.6 Glucose 156 H (74-106) mg/dL Calcium 10.1 (8.5-10.1) mg/dL Total Bilirubin 0.6 (0.2-1.0) mg/dL AST 14 L (15-37) U/L ALT 58 (16-63) U/L Alkaline Phosphatase 98 (46-116) U/L C-Reactive Protein <0.50 (<=0.50) mg/dL Total Protein 7.4 (6.4-8.2) g/dL Albumin 4.0 (3.4-5.0) g/dL Globulin 3.4 g/dL Albumin/Globulin Ratio 1.[address] lumbar: Radiologist's impression: ITS Impressions Lumbar Spine CT 05/09/23 07:34
--- OUTSIDE RECORDS SUMMARY | 2023-05-09 06:49 | XMS_ITS | CCD ---
Author Organization [facility] Care Team Providers Care Inspector Watch Parts Name Role Phone DOMINGO SARAVIA Unavailable Unavailab le Lakia Dyson Primary Care Physician [phone] Josephine Zambrano Unavailable Unavailable Aggie [place] Unavailable Unavailable KARIS, DR DORMAN Primary Care Unavailable CYNTHIA AGUILA Attending Unavailable CYNTHIA AGUILA Admitting Unavailable KANWALY, DR DORMAN Primary Care Unavailable CYNTHIA AGUILA Attending Unavailable CYNTHIA AGUILA Consulting Unavailable CYNTHIA AGUILA Admitting Unavailable GANGWANI, ADRIANA SANTOS Referring Unavailab le SHANTELL, MARTIN Referring Unavailable ANABELA, JESUS Admitting Unavailable SHANTELL, MARTIN Referring Unavailable GANGWANI, ADRIANA SANTOS Attending Unavailab le GANGWANIADRIANA Consulting Unavailab le GANGWANI, ADRIANA SANTOS Referring Unavailab le MATILDEHAYLEY Referring Unavailable GANGWANI, ADRIANA SANTOS Referring Unavailab le GANGWANI, ADRIANA SANTOS Referring Unavailab le NORI PRATT Attending Unavailable GANGWANI, ADRIANA SANTOS Referring Unavailab le TERENCENORI Attending Unavailable NORI PRATT Attending Unavailable ANABELA, JESUS Referring Unavailable ANABELA, JESUS Referring Unavailable MOUKARBELCHARLEEN Referring Unavailable ANABELA, JESUS Referring Unavailable GANGWANI, ADRIANA SANTOS Referring Unavailab le GANGWANI, ADRIANA SANTOS Referring Unavailab le GANGWANI, ADRIANA SANTOS Referring Unavailab le MATILDEHAYLEY Referring Unavailable YEARTY DEANNA Referring Unavailable GANGWANI, ADRIANA ASNTOS Referring Unavailab le YEARTY DEANNA Referring Unavailable NORI PRATT Attending Unavailable ISAEL, ADRIANA SANTOS Referring Unavailab le MATILDEHAYLEY Referring Unavailable MERCEDES SUNSHINE Referring Unavailable Cynthia Aguila CNP Primary Care Provider Lakia Dyson MD Unavailable Dougie Harmon Attending Unavailable Shaun [place]. Admitting Unavailable Mouchli, Grisamad A. Attending Unavailable Mouchli, Mohamad A. Referring Unavailable Mouchli, Mohamad A. Admitting Unavailable Mouchmarisol, Grisamad A. Attending Unavailable Dougie Harmon Attending Unavailable Cira, Yusra A Consulting Unavailable Dougie Harmon Admitting Unavailable Cira, Yusra A Consulting Unavailable Cira, Yusra A Consulting Unavailable Cira, Yusra A Consulting Unavailable Cira, Yusra A Consulting Unavailable Cira, Yusra A Consulting Unavailable Cira, Yusra A Consulting Unavailable Cira, ROTARY FILTER OPERATOR Yusra A Consulting Unavailabl e Cira, Yusra A Consulting Unavailable Cira, Yusra A Admitting Unavailable Cira, Yusra A Attending Unavailable Cira, Yusra A Attending Unavailable Shaun [place]. Attending Unavailable Cira, Yusra A Attending Unavailable Cira, Yusra A Attending Unavailable Domingo DE LA ROSA Attending Unavailable Allergies Allergy Classification Reported Allergen(s) Allergy Type Date of Onset Reaction(s) Facility (19 sources) Penicillins; 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: [PENICILLINS] Propensity to adverse reactions to drug (disorder) 6 Unknown [facility] Repository (9 sources) RAGWEED; 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: [RAGWEED] Propensity to adverse reactions to drug (disorder) 6 Dyspnea (finding), Shortness of Breath [facility] Repository (1 source) house dust allergenic extract; 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: [HOUSE DUST] Drug Allergy 3 [facility] Repository Medications Current Medications Medication Drug Class(es) Dates Sig (Normalized) Sig (Original) albuterol HFA 90 mcg/inh MDI (14 sources) Start: 05-13-2018 take 2 puff(s) by inhalation four times daily for wheezing albuterol HFA 90 mcg/inh MDI 2 puff(s), Inhalation, QID for wheezing, 6.7 gram, Refill(s) 0, [facility]/pharmacy #[id number] Start Date: 05/13/18 Status: Ordered apixaban 2.5 mg oral tablet (14 sources) Factor Xa Inhibitor Start: 08-29-2018 take 1 tablet by mouth twice daily Eliquis 2.5 mg oral tablet 2.5 mg = 1 tab(s), Oral, BID, # 60 tab(s), Refills(s) 5, [id number] Start Date: 08/29/18 Status: Ordered bisacodyl 10 mg rectal suppository (3 sources) Stimulant Laxative Start: 04-15-2023 take 10 mg rectal route once daily as needed for constipation bisacodyl 10 mg Supp 10 mg = 1 supp, Rectal, Daily, PRN for constipation, # 12 supp, Refills(s) 0, Pharmacy: [facility]/pharmacy #[id number], 167, cm, 04/15/23 12:19:00 EST, Height/Length Dosing, 89, kg, 04/15/23 12:19:00 EST, Weight Dosing Start Date: 04/15/23 Status: Ordered glipiZIDE 5 mg oral tablet (15 sources) Sulfonylurea Start: 07-13-2019 take 1 tablet by mouth once daily glipiZIDE 5 mg Tab 5 mg = 1 tab(s), Oral, Daily, # 30 tab(s), Refills(s) 0, Blood glucose Start Date: 07/13/19 Status: Ordered Start: 11-29-2018 take 1 tablet by paula th once daily glipiZIDE (GLUCOTROL XL) 2.5 mg 24 hr tablet Take 2.5 mg by mouth once daily. 11 11/29/2018 Active Comment on above: Take 2.5 mg by mouth once daily. Immodium A-D 2 mg Cap (9 sources) Start: 04-05-2017 take 1 capsule by mouth once Immodium A-D 2 mg Cap 2 mg = 1 cap(s), Oral, QIDACHS, pt takes scheduled unless constipated, Refills(s) 0, Diarrhea Start Date: 04/05/17 Status: Ordered loperamide hydrochloride 2 mg oral capsule (6 sources) Opioid Agonist Start: 04-05-2017 take 1 capsule by mouth once Immodium A-D 2 mg Cap 2 mg = 1 cap(s), Oral, QIDACHS, pt takes scheduled unless constipated, Refills(s) 0, Diarrhea Start Date: 04/05/17 Status: Ordered Start: 12-27-2016 take 2 capsules by m outh at bedtime loperamide (IMODIUM) 2 mg cap(s) TAKE 2 CAPSULES BY MOUTH BEFORE MEALS AND AT BEDTIME 5 12/27/2016 Active Comment on above: TAKE 2 CAPSULES BY M OUTH BEFORE MEALS AND AT BEDTIME NuLYTELY Carrillo oral powder for reconstitution (1 source) Start: 2 NuLYTELY Carrillo oral powder for reconstitution See Instructions, 1 EA, Refill(s) 0, Prior to colonoscopy., [facility]/pharmacy #[id number], 167.6, cm, 07/19/21 8:57:00 EDT, Height/Length Dosing, 93, kg, 07/19/21 8:57:00 EDT, Weight Dosing Start Date: 07/19/21 Status: Ordered pantoprazole 40 mg extended release oral tablet (15 sources) Proton Pump Inhibitor Start: 8 take 40 mg by mouth once daily pantoprazole 40 mg, Oral, Daily, Refills(s) 0, Control of stomach acid Start Date: 02/18/17 Status: Ordered Start: 03-22-2016 take 1 tablet by paula th once daily, then take 6 tablets by mouth in the morning pantoprazole DR (PROTONIX) 40 mg tablet Take 1 tablet by mouth DAILY (6 AM). 0 03/22/2016 Active Comment on above: Take 1 tablet by paula th DAILY (6 AM). pioglitazone 15 mg oral tablet (14 sources) Peroxisome Proliferator Receptor alpha Agonist, Peroxisome Proliferator Receptor gamma Agonist, Thiazolidinedione Start: 019 take 1 tablet by mouth once daily pioglitazone 15 mg Tab 15 mg = 1 tab(s), Oral, Daily, Refills(s) 0, Blood glucose Start Date: 05/12/18 Status: Ordered polyethylene glycol 3350 33558 mg powder for oral solution (11 sources) Osmotic Laxative Start: 019 polyethylene glycol 3350 Oral Pwdr for Recon 17 gram, Oral, Daily, PRN Constipation, dissolve in water before taking, Refills(s) 0 Start Date: 05/12/18 Status: Ordered polyethylene glycol 3350 Oral Pwdr for Recon (3 sources) Start: 019 polyethylene glycol 3350 Oral Pwdr for Recon 17 gram, Oral, Daily, PRN Constipation, dissolve in water before taking, Refills(s) 0 Start Date: 05/12/18 Status: Ordered predniSONE 10 mg oral tablet (14 sources) Start: 019 predniSONE 10 mg Tab See Instructions, Oral 6 tabs for 1 day,5 tabs for 1 day,4 tabs for 1 day,3 tabs for 1 day,2 tabs for 1 day,1 tab for 1 day, # 21 tab(s), Refills(s) 0, [id number] Start Date: 05/13/18 Status: Ordered psyllium 525 mg oral capsule (6 sources) Start: 023 End: 024 take 5 capsules by mouth once daily Metamucil 525 mg oral capsule 2,625 mg = 5 cap(s), Oral, Daily, X 90 day(s), # 450 cap(s), Refills(s) 3, [id number], 167.6, cm, 06/27/22 8:28:00 EDT, Height/Length Dosing, 94.9, kg, 06/27/22 8:28:00 EDT, Weight Dosing Start Date: 06/27/22 Stop Date: 06/22/23 Status: Ordered Senna Leaves (3 sources) Start: Senna 8.6 mg oral tablet 17.2 mg, 2 tab(s), Oral, BID for constipation, 100 tab(s), Refill(s) 4, [id number], 167, cm, 04/15/23 12:19:00 EST, Height/Length Dosing, 89, kg, 04/15/23 12:19:00 EST, Weight Dosing Start Date: 04/15/23 Status: Ordered Completed/Discontinued Medications Medication Drug Class(es) Dates Sig (Normalized) Sig (Original) acetaminophen 500 mg oral tablet (1 source) Start: 08-19-2020 take 2 tablets by mouth every six hours as needed acetaminophen (TYLENOL) 500 mg tablet Take 2 tablets by mouth every 6 hours as needed for pain. 0 08/19/2020 Active Comment on above: Take 2 tablets by [facility] every 6 hours as needed for pain. albuterol 0.833 mg/ml / ipratropium bromide 0.167 mg/ml inhalation solution (1 source) Anticholinergic, beta2-Adrenergic Agonist Start: 08-19-2020 take 3 mL by inhalation every four hours as needed ipratropium-albuter ol (DUONEB) 0.5 mg-3 mg(2.5 mg base)/3 mL nebu Inhale 3 mL as instructed every 4 hours as needed for wheezing/shortness of breath. 0 08/19/2020 Active Comment on above: Inhale 3 mL as instr ucted every 4 hours as needed for wheezing/shortness of breath. amLODIPine 2.5 mg oral tablet (15 sources) Dihydropyridine Calcium Channel Darryl Start: 11-22-2017 take 1 tablet by mouth once daily amLODIPine (NORVASC) 2.5 mg tablet Take 1 tablet by mouth once daily. 0 08/20/2020 Active Comment on above: Take 1 tablet by paula once daily. atorvastatin 10 mg oral tablet (15 sources) HMG-CoA Reductase Inhibitor Start: 11-22-2017 take 1 tablet by mouth once daily atorvastatin (LIPITOR) 10 mg tablet Take 1 tablet by mouth once daily. 0 08/20/2020 Active Comment on above: Take 1 tablet by paula once daily. calcium carbonate 500 mg chewable tablet (1 source) Start: 08-19-2020 take 500 mg by mouth every eight hours as needed calcium carbonate (TUMS) 500 mg chew Take 1 tablet by mouth three times daily as needed (GERD). 0 08/19/2020 Active Comment on above: Take 1 tablet by paula three times daily as needed (GERD). docusate sodium 100 mg oral capsule (1 source) Start: 08-19-2020 take 1 capsule by mouth twice daily docusate sodium (COLACE) 100 mg capsule Take 1 capsule by mouth twice daily. While taking narcotic pain medication 0 08/19/2020 Active Comment on above: Take 1 capsule by [facility] twice daily. While taking narcotic pain medication 1 ml enoxaparin sodium 100 mg/ml prefilled syringe (1 source) Low Molecular Weight Heparin Start: 08-19-2020 inject 90 mg by subcutaneous injection every twenty-four hours enoxaparin (LOVENOX) 100 mg/mL syrg Inject 0.9 mL subcutaneously q 24 HR. 0 08/19/2020 Active Comment on above: Inject 0.9 mL subcut aneously q 24 HR. 12 hr guaiFENesin 600 mg extended release oral tablet (1 source) Start: 08-19-2020 take 1 tablet by mouth every twelve hours as needed for congestion guaiFENesin (MUCINEX) 600 mg 12 hr tablet Take 1 tablet by mouth every 12 hours as needed (help with congestion). 0 08/19/2020 Active Comment on above: Take 1 tablet by paula th every 12 hours as needed (help with congestion). lisinopril 2.5 mg oral tablet (15 sources) Angiotensin Converting Enzyme Inhibitor Start: 05-12-2018 take 1 tablet by mouth once daily lisinopril 2.5 mg tablet Take 1 tablet by mouth once daily. 0 08/20/2020 Active Comment on above: Take 1 tablet by paula th once daily. magnesium hydroxide 80 mg/ml oral suspension (1 source) Start: 08-19-2020 take 30 mL by mouth once daily as needed magnesium hydroxide (MOM) 400 mg/5 mL suspension Take 30 mL by mouth once daily as needed. 0 08/19/2020 Active Comment on above: Take 30 mL by mouth once daily as needed. oxyCODONE hydrochloride 5 mg oral tablet (1 source) Opioid Agonist Start: 08-19-2020 take 1 tablet by mouth every six hours as needed oxyCODONE IR (ROXICODONE) 5 mg immediate release tablet Take 1 tablet by mouth every 6 hours as needed. 0 08/19/2020 Active Comment on above: Take 1 tablet by paula th every 6 hours as needed. warfarin sodium 4 mg oral tablet (20 sources) Vitamin K Antagonist Start: 05-12-2018 take 1 tablet by mouth once daily warfarin (COUMADIN) 4 mg tablet Take 1 tablet by mouth daily as directed. 0 08/19/2020 Active Comment on above: Take 1 tablet by paula th daily as directed. Problems Active Problems Problem Classification Problem Date [...] 2 Episodic Cancer of rectum and anus (1 source) Malignant tumor of rectosigmoid junction; 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: [Malignant neoplasm of rectosigmoid junction] Onset: 6 07-25-2016 Chronic Cancer of rectum and anus (17 sources) History of malignant neoplasm of rectum; 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: [Personal history of other malignant neoplasm of rectum, rectosigmoid junction, and anus] Onset: 2 Episodic Cardiac dysrhythmias (2 sources) Paroxysmal atrial fibrillation; 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: [Paroxysmal atrial fibrillation] Onset: 3 Chronic Chronic kidney disease (2 sources) Chronic kidney disease; 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: [Chronic kidney disease, unspecified] Onset: 6 03-11-2016 Chronic Coagulation and hemorrhagic disorders (16 sources) Hypercoagulability state; 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] Onset: 6 11-14-2020 Chronic Conduction disorders (2 sources) Presence of automatic (implantable) cardiac defibrillator; 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: [Presence of automatic (implantable) cardiac defibrillator] Onset: 3 Chronic Congestive heart failure; nonhypertensive (7 sources) Chronic systolic (congestive) heart failure; 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: [Acute on chronic systolic (congestive) heart failure] Onset: 9 Chronic Coronary atherosclerosis and other heart disease (5 sources) Atherosclerotic heart disease of [place] coronary artery without angina pectoris; 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: [Coronary atherosclerosis due to calcified coronary lesion] Onset: 9 Chronic Diabetes mellitus without complication (1 source) Type 2 diabetes mellitus without complication; 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: [Type 2 diabetes mellitus without complications] Onset: 6 03-16-2016 Chronic Diverticulosis and diverticulitis (12 sources) Diverticula of intestine; 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: [Diverticulosis of intestine, part unspecified, without perforation or abscess without bleeding] Onset: 2 Chronic Esophageal disorders (20 sources) Gastroesophageal reflux disease without esophagitis; 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: [Gastro-esophageal reflux disease without esophagitis] Onset: 2 Chronic Essential hypertension (1 source) Essential hypertension; 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: [Essential (primary) hypertension] Onset: 6 07-25-2016 Chronic Hemorrhoids (11 sources) Hemorrhoids; 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: [Unspecified hemorrhoids] Onset: 2 Episodic Hypertension with complications and secondary hypertension (4 sources) Hypertensive chronic kidney disease with stage 5 chronic kidney disease or end stage renal disease; 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: [Hypertensive heart disease with heart failure] Onset: 3 Chronic Other aftercare (2 sources) Drug monitoring done; 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: [Encounter for therapeutic drug level monitoring] Episodic Other aftercare (2 sources) 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; 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] Onset: 3 Episodic [...] nutritional; endocrine; and metabolic disorders (1 source) Hypoalbuminemia; 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: [Other disorders of plasma-protein metabolism, not elsewhere classified] Onset: 6 03-16-2016 Chronic Other nutritional; endocrine; and metabolic disorders (1 source) Hypoproteinemia; 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: [Other disorders of glycoprotein metabolism] Onset: 6 02-03-2016 Chronic Other nutritional; endocrine; and metabolic disorders (1 source) Obese class I; 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: [Obesity, unspecified] Onset: 1 08-19-2020 Chronic Other nutritional; endocrine; and metabolic disorders (1 source) Abnormal weight loss; 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: [Abnormal weight loss] Onset: 4 Episodic Other upper respiratory infections (1 source) Acute sinusitis, unspecified; 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: [ACUTE SINUSITIS UNSPECIFIED] Onset: 2 Episodic Pancreatic disorders (not diabetes) (1 source) Cyst of pancreas; 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: [Cyst of pancreas] Onset: 4 Episodic Unclassified (1 source) Unknown / UNK(Unknown) Onset: 8 Unclassified (2 sources) CONTACT W/AND (SUSP) EXPOS COVID-19; 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: [CONTACT W/AND (SUSP) EXPOS COVID-19] Onset: 2 Unclassified (1 source) Ventricular tachycardia, unspecified; 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: [Ventricular tachycardia, unspecified] Onset: 3 Unclassified (1 source) SUMMARY Onset: 7 03-16-2016 Viral infection (1 source) COVID-19; 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: [COVID-19] Onset: 2 Past or Other Problems Problem Classification Problem Date Documented Da te Episodic/Chronic Acute and unspecified renal failure (1 source) Acute renal failure syndrome; 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: [Acute kidney failure, unspecified] Onset: 03-11-2016 03-11-2016 Episodic Other aftercare (3 sources) Long-term current use of anticoagulant; 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] Onset: 01-11-2016 Episodic Other aftercare (1 source) Patient encounter status; 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: [Encounter for therapeutic drug level monitoring] Onset: 01-31-2016 03-11-2016 Episodic Other circulatory disease (1 source) H/O: hypertension; 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: [Personal history of other diseases of the circulatory system] Onset: 07-11-2016 07-11-2016 Episodic Other nervous system disorders (1 source) Postoperative pain ; 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: [Other acute postprocedural pain] Onset: 02-03-2016 07-25-2016 Episodic Other nutritional; endocrine; and metabolic disorders (1 source) H/O: diabetes mellitus; 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: [Personal history of other endocrine, nutritional and metabolic disease] Onset: 07-11-2016 07-11-2016 Episodic Phlebitis; thrombophlebitis and thromboembolism (19 sources) Deep venous thrombosis; 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: [History of thromboembolism of vein] Onset: 06-27-2015 04-05-2017 Episodic Pulmonary heart disease (4 sources) Other pulmonary embolism without acute cor pulmonale; 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: [Pulmonary embolism] Onset: 01-30-2016 Episodic Residual codes; unclassified (1 source) Postoperative state; 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: [Other specified postprocedural states] Onset: 08-19-2020 08-19-2020 Episodic Unclassified (1 source) CONTACT W/AND (SUSP) EXPOS COVID-19; 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: [CONTACT W/AND (SUSP) EXPOS COVID-19] Onset: 12-14-2021 Unclassified (1 source) Ventricular tachycardia, unspecified; 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: [Ventricular tachycardia, unspecified] Onset: 11-25-2022 Results Test Name Value Interpretation Reference Range Facility Physician Orderon 05-07-2023 Physician Order [id number]#1 .00TIFF Normal [facility] Physician Orderon 05-03-2023 Physician Order [id number]#1 .00TIFF [facility] CNPNon 04-26-2023 CNPN Telephone ([facility]) LAKIA RODRIGUEZ ([id number]) 1950 M Date Time Provider Department 04/26/23 NANCI MILLER [facility] During your visit today, we recorded the following information about you: Teresa Moore 04/26/2023 1:11 PM Signed Called and LVM regarding referral for Manometry by [facility]. Allergies As of Date: 04/26/2023 Noted Allergy Reaction PENICILLINS 06/22/2015 16 - Unknown RAGWEED 12/05/2015 12 - Shortness of Breath Date Reviewed: 09/05/2020 Reviewed by: Belem Koch APRN.ROTARY FILTER OPERATOR - Fully Assessed Reason for Visit: Appointment [186] Prescriptions as of 05/03/2023 - lisinopril 2.5 mg tablet Take 1 [...] appt 01/11/2016 Problem List As Of Date 04/26/2023 Noted Resolved History of DVT (deep vein [...] Post-operative state [Z98.890] 08/19/2020 Encounter Status:Closed by TERESA MOORE on 04/26/23 Normal [facility] Reminderson 04-24-2023 Reminders - From: Ivelisse ENCISO, Shaun Che To: Bev Chow MA; Sent: 04/24/2023 10:23:02 EDT ! Show up: 04/24/2023 10:23:02 EDT Actions: Quick Reminder 1 Due Date/Time: 04/25/2023 10:22:00 EDT Reminder Comments: Fat seen in the pancreas. No further workup needed Results: Date Result Type Result Name 04/23/2023 19:[address] Abdomen w/ + w/o Contrast made patient aware, verbalized clear understanding. Normal [facility] CT Abdomen w/ + w/o Contrast on [...] Oral contrast amount in ml's: 450 Normal [facility] Consent for Treatmenton 04-11 Consent for Treatment [id number] .00TIFF Normal [facility] CHEMISTRYOrdered By: SYSTEM SYSTEM on 04-19-2023 Creatinine [Mass/Vol] 1.6 mg/dL High 0.5 - 1.3 mg/dL Remisol Chem eGFR 46 mL/min/1.73 m2 Low >=59mL/min /1 .73 m2 Remisol Chem Consent for Treatmenton Consent for Treatment [id number] .00TIFF Normal [facility] Creatinineon 04-19-2023 Creatinine [Mass/Vol] 1.6 mg/dL High 0.5-1.3 Fis her [facility] Comment on above: Performed By: #### 2 [id number] ####[facility] [address] [place] [address] Physician Orderon 04-19-2023 Physician Order [id number] #1.00TIFF Normal [facility] eGFRon 04-19-2023 eGFR 46 mL/min/1.73 m2 Low >=59 [facility] Comment on above: Order Comment: Order added by Discern Expert. Performed By: #### 2 [id number] ####[facility] [address] [place] [address] Gastroenterology Office/Clin ic Noteon 04-15-2023 Gastroenterology Office/Clinic [...] cold forceps and then dilated using 56 [place] dilator History of Present Illness pt [...] (R14.0: Abdominal (more content not included)... Normal [facility] Comment on above: Result Comment: Elec tronically Signed By: Ivelisse ENCISO, Shaun Che\.br\Date and Time Signed: 04/15/23 13:07 EST Lab Reportson 04-15-2023 Lab Reports [id number]#1 .00TIFF [facility] OT - Otheron 04-15-2023 OT - Other [id number] 1.00TIFF [facility] RAD - Ultrasound Reporton RAD - Ultrasound Report [id number]#1 .00TIFF [facility] Follow-Upon 12-12-2022 Follow-Up Normal [facility] Documentationon 12-06-[address] [facility] 30on 12-05-[address] [facility] BASIC METABOLIC PANELon 10- Anion gap [Moles/Vol] 10 mmol/L Normal 7-20 [facility] Comment on above: Performed By: #### L AB15 ####[facility] (BEAKER)[address] [place] [address] Calcium [Mass/Vol] 9.3 mg/dL Normal 8.6-10.3 [facility] Comment on above: Performed By: #### L AB15 ####[facility] (BEAKER)[address] [place] [address] Chloride [Moles/Vol] 104 mmol/L Normal 98-107 [facility] Comment on above: Performed By: #### L AB15 ####[facility] (BEAKER)[address] [place] [address] CO2 [Moles/Vol] 24 mmol/L Normal 21-31 [facility] Comment on above: Performed By: #### L AB15 ####[facility] (BEAKER)[address] [place] [address] Creatinine [Mass/Vol] 1.20 mg/dL Normal 0.70-1.30 [facility] Comment on above: Performed By: #### L AB15 ####[facility] ([facility])[address] [place] [address] GLOMERULAR FILTRATION RATE ML/MIN/1.73 SQ M.PREDICTED 65.1 mL/min/1.73m*2 Normal >60[address] [facility] Comment on above: Result Comment: [facility]???s estimated glomerular filtration rate (eGFR) will [...] of individuals. Performed By: #### L AB15 ####[facility] ([facility])[address] [place] [address] Glucose [Mass/Vol] 148 mg/dL High 70-100 [facility] Comment on above: Performed By: #### L AB15 ####[facility] ([facility])[address] [place] [address] Potassium [Moles/Vol] 4.3 mmol/L Normal 3.5-5.1 [facility] Comment on above: Performed By: #### L AB15 ####[facility] [facility] ([facility])[address] [place] [address] Sodium [Moles/Vol] 134 mmol/L Low 136-145 [facility] Comment on above: Performed By: #### L [id number] ####[facility] ([facility])[address] [place] [address] Urea nitrogen [Mass/Vol] 28 mg/dL High 7-25 [facility] Comment on above: Performed By: #### L [id number] ####[facility] ([facility])[address] [place] [address] UREA NITROGEN/CREATININE (MASS RATIO) IN SER/PLAS 23.[address] [facility] Comment on above: Performed By: #### L [id number] ####[facility] ([facility])[address] [place] [address] CBCon 12-05-2022 Erythrocyte distribution width (RBC) [Ratio] 14.3 % Normal 11.5-15.0 [facility] Comment on above: Performed By: #### L [id number] ####[facility] ([facility])[address] [place] [address] ERYTHROCYTE MEAN CORPUSCULAR HEMOGLOBIN CONCENTRATION (G/DL) BY AUTOMATED 33.5 g/dL Normal 32.0-35.0 [facility] Comment on above: Performed By: #### L [id number] ####[facility] ([facility])[address] [place] [address] Hematocrit (Bld) [Volume fraction] 39.4 % Normal 39.0-55.0 [facility] Comment on above: Performed By: #### L [id number] ####[facility] ([facility])[address] [place] [address] Hemoglobin (Bld) [Mass/Vol] 13.2 g/dL Normal 13.0-17.0 [facility] Comment on above: Performed By: #### L [id number] ####[facility] ([facility])[address] [place] [address] IMMATURE PLATELET FRACTION % 2.2 % Normal 0.8-6.3 [facility] Comment on above: Performed By: #### L [id number] ####[facility] ([facility])[address] [place] [address] MCH (RBC) [Entitic mass] 29.7 pg Normal 27.0-33.0 [facility] Comment on above: Performed By: #### L [id number] ####[facility] ([facility])[address] [place] [address] MCV (RBC) [Entitic vol] 88.5 fL Normal 82.0-98.0 [facility] Comment on above: Performed By: #### L [id number] ####[facility] ([facility])[address] [place] [address] PLATELETS (10*3/UL) IN BLOOD AUTOMATED COUNT 132 10*3/uL Low 150-400 [facility] Comment on above: Performed By: #### L [id number] ####[facility] ([facility])[address] [place] [address] RBC (Bld) [#/Vol] 4.45 10*6/uL Normal 4.20-5.70 [facility] Comment on above: Performed By: #### L [id number] ####[facility] ([facility])[address] [place] [address] WBC (Bld) [#/Vol] 6.95 10*3/uL Normal 4.00-10.60 [facility] Comment on above: Performed By: #### L [id number] ####[facility] ([employer])[address] [place] [address] DSon 12-05-2022 DS [facility] POCT GLUCOSE METER UNSOLICIT ED RESULTSon 12-05-2022 Glucose [Mass/Vol] 147 mg/dL High 70-105 [facility] Comment on above: Order Comment: Waive d Testing in the ED is performed under the ED CLIA certificate #[id number]. Result Comment: [email or web address] Performed By: #### L [id number] ####[facility] ([employer])[address] [place] [address] Glucose [Mass/Vol] 185 mg/dL High 70-105 [facility] Comment on above: Order Comment: Waive d Testing in the ED is performed under the ED CLIA certificate #[id number]. Result Comment: [email or web address] Performed By: #### L [id number] ####[facility] ([employer])[address] [place] [address] Glucose [Mass/Vol] 153 mg/dL High 70-105 [facility] Comment on above: Order Comment: Waive d Testing in the ED is performed under the ED CLIA certificate #[id number]. Result Comment: [email or web address] Performed By: #### L [id number] ####[facility] ([facility])[address] [place] [address] 30on 12-04-2022 30 The patient is Moderately Stable - Low risk of patient condition declining or worsening The patient's goals for the shift include comfort The clinical goals for the shift include stable vitals Normal [facility] [address] [facility] 30 The patient is Moderately Stable - Low risk of patient condition declining or worsening The patient's goals for the shift include Comfort The clinical goals for the shift include VSS Normal [facility] BASIC METABOLIC PANELon 11-12 Anion gap [Moles/Vol] 11 mmol/L Normal 7-20 [facility] Comment on above: Performed By: #### L [id number] ####[facility] ([facility])[address] [place] [address] Calcium [Mass/Vol] 8.9 mg/dL Normal 8.6-10.3 [facility] Comment on above: Performed By: #### L [id number] ####[facility] ([facility])[address] [place] [address] Chloride [Moles/Vol] 105 mmol/L Normal 98-107 [facility] Comment on above: Performed By: #### L [id number] ####[facility] ([facility])[address] [place] [address] CO2 [Moles/Vol] 23 mmol/L Normal 21-31 [facility] Comment on above: Performed By: #### L [id number] ####[facility] ([facility])[address] [place] [facility] [place] [address] Creatinine [Mass/Vol] 1.32 mg/dL High 0.70-1.30 [facility] Comment on above: Performed By: #### L [id number] ####[facility] ([facility])[address] [place] [facility] [place] [address] GLOMERULAR FILTRATION RATE ML/MIN/1.73 SQ M.PREDICTED 58.0 mL/min/1.73m*2 Low >60.[address] [facility] Comment on above: Result Comment: [facility]???s estimated glomerular filtration rate (eGFR) will [...] of individuals. Performed By: #### L [id number] ####[facility] ([facility])[address] [place] [address] Glucose [Mass/Vol] 144 mg/dL High 70-100 [facility] Comment on above: Performed By: #### L [id number] ####[facility] ([facility])[address] [place] [address] Potassium [Moles/Vol] 4.5 mmol/L Normal 3.5-5.1 [facility] Comment on above: Performed By: #### L [id number] ####[facility] ([facility])[address] [place] [address] Sodium [Moles/Vol] 134 mmol/L Low 136-145 [facility] Comment on above: Performed By: #### L [id number] ####[facility] ([facility])[address] [place] [address] Urea nitrogen [Mass/Vol] 37 mg/dL High 7-25 [facility] Comment on above: Performed By: #### L [id number] ####[facility] ([facility])[address] [place] [address] UREA NITROGEN/CREATININE (MASS RATIO) IN SER/PLAS 28.[address] [facility] Comment on above: Performed By: #### L [id number] ####[facility] ([facility])[address] [place] [address] CBCon 12-04-2022 Erythrocyte distribution width (RBC) [Ratio] 14.9 % Normal 11.5-15.0 [facility] Comment on above: Performed By: #### L [id number] ####[facility] ([facility])[address] [place] [address] ERYTHROCYTE MEAN CORPUSCULAR HEMOGLOBIN CONCENTRATION (G/DL) BY AUTOMATED 32.6 g/dL Normal 32.0-35.0 [facility] Comment on above: Performed By: #### L [id number] ####[facility] ([facility])[address] [place] [address] Hematocrit (Bld) [Volume fraction] 39.0 % Normal 39.0-55.0 [facility] Comment on above: Performed By: #### L [id number] ####[facility] ([facility])[address] [place] [address] Hemoglobin (Bld) [Mass/Vol] 12.7 g/dL Low 13.0-17.0 [facility] Comment on above: Performed By: #### L [id number] ####[facility] ([facility])[address] [place], [place] [address] IMMATURE PLATELET FRACTION % 3.8 % Normal 0.8-6.3 [facility] Comment on above: Performed By: #### L [id number] ####[facility] ([facility])[address] [place] [address] MCH (RBC) [Entitic mass] 29.6 pg Normal 27.0-33.0 [facility] Comment on above: Performed By: #### L [id number] ####[facility] ([facility])[address] [place] [address] MCV (RBC) [Entitic vol] 90.9 fL Normal 82.0-98.0 [facility] Comment on above: Performed By: #### L [id number] ####[facility] ([facility])[address] [place] [address] PLATELETS (10*3/UL) IN BLOOD AUTOMATED COUNT 130 10*3/uL Low 150-400 [facility] Comment on above: Performed By: #### L [id number] ####[facility] ([facility])[address] [place] [address] RBC (Bld) [#/Vol] 4.29 10*6/uL Normal 4.20-5.70 [facility] Comment on above: Performed By: #### L [id number] ####[facility] ([facility])[address] [place] [address] WBC (Bld) [#/Vol] 6.97 10*3/uL Normal 4.00-10.60 [facility] Comment on above: Performed By: #### L [id number] ####[facility] ([facility])[address] [place] [address] POCT GLUCOSE METER UNSOLICIT ED RESULTSon 12-04-2022 Glucose [Mass/Vol] 167 mg/dL High 70-105 [facility] Comment on above: Order Comment: Waive d Testing in the ED is performed under the ED CLIA certificate #[id number]. Result Comment: [email or web address] Performed By: #### L [id number] ####[facility] ([facility])[address] [place] [address] Glucose [Mass/Vol] 105 mg/dL Normal 70-105 [facility] Comment on above: Order Comment: Waive d Testing in the ED is performed under the ED CLIA certificate #[id number]. Result Comment: [email or web address] Performed By: #### L [id number] ####[facility] ([facility])[address] [place] [address] Glucose [Mass/Vol] 152 mg/dL High 70-105 [facility] Comment on above: Order Comment: Waive d Testing in the ED is performed under the ED CLIA certificate #[id number]. Result Comment: [email or web address] Performed By: #### L [id number] ####[facility] ([facility])[address] [place] [address] 30on 12-03-2022 30 The patient is Moderately Stable - Low risk of patient condition declining or worsening The patient's goals for the shift include comfort The clinical goals for the shift include stable vitals Normal [facility] 30 The patient is Moderately Stable - Low risk of patient condition declining or worsening The patient's goals for the shift include Comfort The clinical goals for the shift include VSS Normal [facility] [address] [facility] ANESon 12-03-[address] [facility] ANES Normal [facility] Anesthesiaon 12-03-2022 Anesthesia [id number] Lakia Rodriguez 1950 Date Provider Department [place] 12/03/2022 [place] [facility] [place] [facility] No family history on file Normal [facility] BASIC METABOLIC PANELon 10-2 Anion gap [Moles/Vol] 12 mmol/L Normal 7-20 [facility] Comment on above: Performed By: #### L [id number] ####[facility] [place] [address] Calcium [Mass/Vol] 9.6 mg/dL Normal 8.6-10.3 [facility] Comment on above: Performed By: #### L [id number] ####[facility] ([facility])[address] [place] [address] Chloride [Moles/Vol] 101 mmol/L Normal 98-107 [facility] Comment on above: Performed By: #### L [id number] ####[facility] ([facility])[address] [place] [address] CO2 [Moles/Vol] 21 mmol/L Normal 21-31 [facility] Comment on above: Performed By: #### L [id number] ####[facility] ([facility])[address] [place] [address] Creatinine [Mass/Vol] 1.78 mg/dL High 0.70-1.30 [facility] Comment on above: Performed By: #### L [id number] ####[facility] ([facility])[address] [place] [address] GLOMERULAR FILTRATION RATE ML/MIN/1.73 SQ M.PREDICTED 40.5 mL/min/1.73m*2 Low >60.[address] [facility] Comment on above: Result Comment: [facility]???s estimated glomerular filtration rate (eGFR) will [...] of individuals. Performed By: #### L [id number] ####[facility] ([facility])[address] [place] [address] Glucose [Mass/Vol] 194 mg/dL High 70-100 [facility] Comment on above: Performed By: #### L [id number] ####[facility] ([facility])[address] [place] [address] Potassium [Moles/Vol] 4.3 mmol/L Normal 3.5-5.1 [facility] Comment on above: Performed By: #### L [id number] ####[facility] ([facility])[address] [place] [address] Sodium [Moles/Vol] 130 mmol/L Low 136-145 [facility] Comment on above: Performed By: #### L [id number] ####[facility] ([facility])[address] [place] [address] Urea nitrogen [Mass/Vol] 47 mg/dL High 7-25 [facility] Comment on above: Performed By: #### L [id number] ####[facility] ([facility])[address] [place] [address] UREA NITROGEN/CREATININE (MASS RATIO) IN SER/PLAS 26.[address] [facility] Comment on above: Performed By: #### L [id number] ####[facility] ([facility])[address] [place] [address] CBCon 12-03-2022 Erythrocyte distribution width (RBC) [Ratio] 14.9 % Normal 11.5-15.0 [facility] Comment on above: Performed By: #### L [id number] ####[facility] ([facility])[address] [place] [address] ERYTHROCYTE MEAN CORPUSCULAR HEMOGLOBIN CONCENTRATION (G/DL) BY AUTOMATED 32.9 g/dL Normal 32.0-35.0 [facility] Comment on above: Performed By: #### L [id number] ####[facility] ([facility])[address] [place] [address] Hematocrit (Bld) [Volume fraction] 41.0 % Normal 39.0-55.0 [facility] Comment on above: Performed By: #### L [id number] ####[facility] ([facility])[address] [place] [address] Hemoglobin (Bld) [Mass/Vol] 13.5 g/dL Normal 13.0-17.0 [facility] Comment on above: Performed By: #### L [id number] ####[facility] [address] MCH (RBC) [Entitic mass] 29.3 pg Normal 27.0-33.0 [facility] Comment on above: Performed By: #### L [id number] ####[facility] ([facility])[address] [place], [place] [address] MCV (RBC) [Entitic vol] 89.1 fL Normal 82.0-98.0 [facility] Comment on above: Performed By: #### L [id number] ####[facility] ([facility])[address] [place] [address] PLATELETS (10*3/UL) IN BLOOD AUTOMATED COUNT 134 10*3/uL Low 150-400 [facility] Comment on above: Performed By: #### L [id number] ####[facility] ([facility])[address] [place] [address] RBC (Bld) [#/Vol] 4.60 10*6/uL Normal 4.20-5.70 [facility] Comment on above: Performed By: #### L [id number] ####[facility] ([facility])[address] [place] [address] WBC (Bld) [#/Vol] 10.62 10*3/uL High 4.00-10.60 [facility] Comment on above: Performed By: #### L [id number] ####[facility] ([employer])[address] [place] [address] CONSULTon 12-03-[address] [facility] HPon 12-03-[address] [facility] HP Normal [facility] NURSNOTEon 12-03-2022 NURSNOTE Report called to Shalini RN 3AB Amy Valiente PERMIT REVIEW ASSISTANT [facility] POCT GLUCOSE METER UNSOLICIT ED RESULTSon 12-03-2022 Glucose [Mass/Vol] 147 mg/dL High 70-105 [facility] Comment on above: Order Comment: Waive d Testing in the ED is performed under the ED CLIA certificate #[id number]. Result Comment: [email or web address] Performed By: #### L [id number] ####[facility] ([employer])[address] [place] [address] Glucose [Mass/Vol] 148 mg/dL High 70-105 [facility] Comment on above: Order Comment: Waive d Testing in the ED is performed under the ED CLIA certificate #[id number]. Result Comment: [email or web address] Performed By: #### L [id number] ####[facility] ([employer])[address] [place] [address] Glucose [Mass/Vol] 165 mg/dL High 70-105 [facility] Comment on above: Order Comment: Waive d Testing in the ED is performed under the ED CLIA certificate #[id number]. Result Comment: [email or web address] Performed By: #### L [id number] ####[facility] ([employer])[address] [place] [address] Glucose [Mass/Vol] 158 mg/dL High 70-105 [facility] Comment on above: Order Comment: Waive d Testing in the ED is performed under the ED CLIA certificate #[id number]. Result Comment: [email or web address] Performed By: #### L [id number] ####[facility] ([employer])[address] [place] [address] TYPE AND SCREENon 12-03-[address]22 AB SCREEN Negative Normal [facility] Comment on above: Performed By: #### L [id number] ####[facility], ABO group Nom (Bld) AB Normal [facility] Comment on above: Performed By: #### L [id number] ####[facility], RH TYPE IN BLOOD Positive Normal [facility] Comment on above: Performed By: #### L [id number] ####[facility], 30on 12-02-[address] [facility] BASIC METABOLIC PANELon 11-12 Anion gap [Moles/Vol] 11 mmol/L Normal 7-20 [facility] Comment on above: Performed By: #### L [id number] ####[facility] ([facility])[address] [place] [address] Calcium [Mass/Vol] 9.6 mg/dL Normal 8.6-10.3 [facility] Comment on above: Performed By: #### L [id number] ####[facility] ([facility])[address] [place] [address] Chloride [Moles/Vol] 103 mmol/L Normal 98-107 [facility] Comment on above: Performed By: #### L [id number] ####[facility] ([facility])[address] [place] [address] CO2 [Moles/Vol] 22 mmol/L Normal 21-31 [facility] Comment on above: Performed By: #### L [id number] ####[facility] ([facility])[address] [place] [address] Creatinine [Mass/Vol] 1.73 mg/dL High 0.70-1.30 [facility] Comment on above: Performed By: #### L [id number] ####[facility] ([facility])[address] [place] [address] GLOMERULAR FILTRATION RATE ML/MIN/1.73 SQ M.PREDICTED 41.9 mL/min/1.73m*2 Low >60.[address] [facility] Comment on above: Result Comment: [facility]???s estimated glomerular filtration rate (eGFR) will [...] of individuals. Performed By: #### L [id number] ####[facility] ([facility])[address] [place] [address] Glucose [Mass/Vol] 168 mg/dL High 70-100 [facility] Comment on above: Performed By: #### L [id number] ####[facility] ([facility]ER)[address] [place] [address] Potassium [Moles/Vol] 4.3 mmol/L Normal 3.5-5.1 [facility] Comment on above: Performed By: #### L [id number] ####[facility] ([facility])[address] [place] [address] Sodium [Moles/Vol] 132 mmol/L Low 136-145 [facility] Comment on above: Performed By: #### L [id number] ####[facility] ([facility])[address] [place] [address] Urea nitrogen [Mass/Vol] 42 mg/dL High 7-25 [facility] Comment on above: Performed By: #### L [id number] ####[facility] ([facility])[address] [place] [address] UREA NITROGEN/CREATININE (MASS RATIO) IN SER/PLAS 24.[address] [facility] Comment on above: Performed By: #### L [id number] ####[facility] ([facility])[address] [place] [address] CBCon 12-02-2022 Erythrocyte distribution width (RBC) [Ratio] 15.0 % Normal 11.5-15.0 [facility] Comment on above: Performed By: #### L [id number] ####[facility] ([facility] [place] [address] ERYTHROCYTE MEAN CORPUSCULAR HEMOGLOBIN CONCENTRATION (G/DL) BY AUTOMATED 32.8 g/dL Normal 32.0-35.0 [facility] Comment on above: Performed By: #### L [id number] ####[facility] ([facility] [place] [address] Hematocrit (Bld) [Volume fraction] 40.0 % Normal 39.0-55.0 [facility] Comment on above: Performed By: #### L [id number] ####[facility] ([facility])[address] [place] [address] Hemoglobin (Bld) [Mass/Vol] 13.1 g/dL Normal 13.0-17.0 [facility] Comment on above: Result Comment: Resu lts checked Performed By: #### L [id number] ####[facility] ([facility] [place] [address] MCH (RBC) [Entitic mass] 29.0 pg Normal 27.0-33.0 [facility] Comment on above: Performed By: #### L [id number] ####[facility] ([facility] [place] [address] MCV (RBC) [Entitic vol] 88.7 fL Normal 82.0-98.0 [facility] Comment on above: Performed By: #### L [id number] ####[facility] ([facility])[address] [place] [address] PLATELETS (10*3/UL) IN BLOOD AUTOMATED COUNT 129 10*3/uL Low 150-400 [facility] Comment on above: Performed By: #### L [id number] ####[facility] (BEAKER)[address] [place] [address] RBC (Bld) [#/Vol] 4.51 10*6/uL Normal 4.20-5.70 [facility] Comment on above: Performed By: #### L [id number] ####[facility] ([facility])[address] [place] [address] WBC (Bld) [#/Vol] 13.62 10*3/uL High 4.00-10.60 [facility] Comment on above: Performed By: #### L [id number] ####[facility] ([facility])[address] [place] [address] POCT GLUCOSE METER UNSOLICIT ED RESULTSon 12-02-2022 Glucose [Mass/Vol] 208 mg/dL High 70-105 [facility] Comment on above: Order Comment: Waive d Testing in the ED is performed under the ED CLIA certificate #[id number]. Result Comment: [email or web address] Performed By: #### L [id number] ####[facility] ([facility])[address] [place] [address] Glucose [Mass/Vol] 224 mg/dL High 70-105 [facility] Comment on above: Order Comment: Waive d Testing in the ED is performed under the ED CLIA certificate #[id number]. Result Comment: [id number] Performed By: #### L [id number] ####[facility] ([facility])[address] [place] [address] Glucose [Mass/Vol] 173 mg/dL High 70-105 [facility] [facility] Comment on above: Order Comment: Waive d Testing in the ED is performed under the ED CLIA certificate #[id number]. Result Comment: [email or web address] Performed By: #### L [id number] ####[facility] ([facility] [place] [address] Glucose [Mass/Vol] 135 mg/dL High 70-105 [facility] Comment on above: Order Comment: Waive d Testing in the ED is performed under the ED CLIA certificate #[id number]. Result Comment: [email or web address] Performed By: #### L [id number] ####[facility] ([facility])[address] [place] [address] 30on 12-01-[address] [facility] APTTon 12-01-2022 ACTIVATED PARTIAL THROMBOPLASTIN TIME IN PPP BY COAGULATION ASSAY 28.0 Seconds Normal 25.0-35.0 [facility] Comment on above: Result Comment: Clin ical significance of the APTT is questionable in the presence of heparin. Performed By: #### L [id number] ####[facility] ([facility])[address] [place] [address] BASIC METABOLIC PANELon 11-12 Anion gap [Moles/Vol] 16 mmol/L Normal 7-20 [facility] Comment on above: Performed By: #### L [id number] ####[facility] ([facility])[address] [place] [address] Calcium [Mass/Vol] 10.4 mg/dL High 8.6-10.3 [facility] Comment on above: Performed By: #### L [id number] ####[facility] ([facility] [place] [address] Chloride [Moles/Vol] 101 mmol/L Normal 98-107 [facility] Comment on above: Performed By: #### L [id number] ####[facility] ([facility] [place] [address] CO2 [Moles/Vol] 21 mmol/L Normal 21-31 [facility] Comment on above: Performed By: #### L [id number] ####[facility] ([facility] [place] [address] Creatinine [Mass/Vol] 1.78 mg/dL High 0.70-1.30 [facility] Comment on above: Performed By: #### L [id number] ####[facility] ([facility] [place] [address] GLOMERULAR FILTRATION RATE ML/MIN/1.73 SQ M.PREDICTED 40.5 mL/min/1.73m*2 Low >60.[address] [facility] Comment on above: Result Comment: [facility]???s estimated glomerular filtration rate (eGFR) will [...] of individuals. Performed By: #### L [id number] ####[facility] ([facility])[address] [place] [address] Glucose [Mass/Vol] 260 mg/dL High 70-100 [facility] Comment on above: Performed By: #### L [id number] ####[facility] ([facility])[address] [place] [address] Potassium [Moles/Vol] 5.0 mmol/L Normal 3.5-5.1 [facility] Comment on above: Performed By: #### L [id number] ####[facility] ([facility])[address] [place] [address] Sodium [Moles/Vol] 133 mmol/L Low 136-145 [facility] Comment on above: Performed By: #### L [id number] ####[facility] ([facility])[address] [place] [address] Urea nitrogen [Mass/Vol] 32 mg/dL High 7-25 [facility] Comment on above: Performed By: #### L [id number] ####[facility] ([facility]ER)[address] [place] [address] UREA NITROGEN/CREATININE (MASS RATIO) IN SER/PLAS 18.[address] [facility] Comment on above: Performed By: #### L [id number] ####[facility] ([facility])[address] [place] [address] CBCon 12-01-2022 Erythrocyte distribution width (RBC) [Ratio] 14.7 % Normal 11.5-15.0 [facility] Comment on above: Performed By: #### L [id number] ####[facility] ([facility])[address] [place] [address] ERYTHROCYTE MEAN CORPUSCULAR HEMOGLOBIN CONCENTRATION (G/DL) BY AUTOMATED 33.0 g/dL Normal 32.0-35.0 [facility] Comment on above: Performed By: #### L [id number] ####[facility] ([facility] [place] [address] Hematocrit (Bld) [Volume fraction] 46.6 % Normal 39.0-55.0 [facility] Comment on above: Performed By: #### L [id number] ####[facility] ([facility])[address] [place] [address] Hemoglobin (Bld) [Mass/Vol] 15.4 g/dL Normal 13.0-17.0 [facility] Comment on above: Performed By: #### L [id number] ####[facility] ([facility])[address] [place] [address] MCH (RBC) [Entitic mass] 29.3 pg Normal 27.0-33.0 [facility] Comment on above: Performed By: #### L [id number] ####[facility] ([facility]ER)[address] [place] [address] MCV (RBC) [Entitic vol] 88.8 fL Normal 82.0-98.0 [facility] Comment on above: Performed By: #### L [id number] ####[facility] ([facility]ER)[address] [place] [address] PLATELETS (10*3/UL) IN BLOOD AUTOMATED COUNT 181 10*3/uL Normal 150-400 [facility] Comment on above: Performed By: #### L [id number] ####[facility] ([facility]ER)[address] [place] [address] RBC (Bld) [#/Vol] 5.25 10*6/uL Normal 4.20-5.70 [facility] Comment on above: Performed By: #### L [id number] ####[facility] ([facility])[address] [place] [address] WBC (Bld) [#/Vol] 23.51 10*3/uL High 4.00-10.60 [facility] Comment on above: Performed By: #### L [id number] ####[facility] ([facility])[address] [place] [address] NURSNOTEon 12-01-[address] [facility] POCT GLUCOSE METER UNSOLICIT ED RESULTSon 12-01-2022 Glucose [Mass/Vol] 204 mg/dL High 70-105 [facility] Comment on above: Order Comment: Waive d Testing in the ED is performed under the ED CLIA certificate #[id number]. Result Comment: [email or web address] Performed By: #### L [id number] ####[facility] ([facility])[address] [place] [address] Glucose [Mass/Vol] 248 mg/dL High 70-105 [facility] Comment on above: Order Comment: Waive d Testing in the ED is performed under the ED CLIA certificate #[id number]. Result Comment: [email or web address] Performed By: #### L [id number] ####[facility] ([facility])[address] [place] [address] Glucose [Mass/Vol] 270 mg/dL High 70-105 [facility] Comment on above: Order Comment: Waive d Testing in the ED is performed under the ED CLIA certificate #[id number]. Result Comment: [email or web address] Performed By: #### L [id number] ####[facility] ([facility])[address] [place] [address] PROTIME-INRon 12-01-2022 INR IN PPP BY COAGULATION ASSAY 1.21 High 0.90-1.10 [facility] Comment on above: Result Comment: ACCC [...] CHEST 1995;[id number]. Performed By: #### L [id number] ####[facility] ([employer])[address] [place] [address] PROTHROMBIN TIME (PT) IN PPP BY COAGULATION ASSAY 15.3 Seconds High 12.3-14.8 [facility] Comment on above: Performed By: #### L [id number] ####[facility] ([employer])[address] [place] [place] [address] 30on 11-30-[address] [facility] [address] [facility] BASIC METABOLIC PANELon 10-2 Anion gap [Moles/Vol] 10 mmol/L Normal 7-20 [facility] Comment on above: Performed By: #### L [id number] ####[facility] ([employer])[address] [place] [place] [facility] [place] [address] Calcium [Mass/Vol] 7.1 mg/dL Low 8.6-10.3 [facility] Comment on above: Performed By: #### L [id number] ####[facility] ([employer])[address] [facility] [place] [facility] [place] [address] Chloride [Moles/Vol] 110 mmol/L High 98-107 [facility] Comment on above: Performed By: #### L [id number] ####[facility] ([facility])[address] [place] [address] CO2 [Moles/Vol] 22 mmol/L Normal 21-31 [facility] Comment on above: Performed By: #### L [id number] ####[facility] ([facility])[address] [place] [address] Creatinine [Mass/Vol] 1.25 mg/dL Normal 0.70-1.30 [facility] Comment on above: Performed By: #### L [id number] ####[facility] ([facility])[address] [place] [address] GLOMERULAR FILTRATION RATE ML/MIN/1.73 SQ M.PREDICTED 61.9 mL/min/1.73m*2 Normal >60.[address] [facility] Comment on above: Result Comment: [facility]???s estimated glomerular filtration rate (eGFR) will [...] of individuals. Performed By: #### L [id number] ####[facility] ([facility])[address] [place] [address] Glucose [Mass/Vol] 211 mg/dL High 70-100 [facility] Comment on above: Performed By: #### L [id number] ####[facility] ([facility])[address] [place] [address] Potassium [Moles/Vol] 3.6 mmol/L Normal 3.5-5.1 [facility] Comment on above: Performed By: #### L [id number] ####[facility] ([facility])[address] [place] [address] Sodium [Moles/Vol] 138 mmol/L Normal 136-145 [facility] Comment on above: Performed By: #### L [id number] ####[facility] ([facility])[address] [place] [address] Urea nitrogen [Mass/Vol] 17 mg/dL Normal 7-25 [facility] Comment on above: Performed By: #### L [id number] ####[facility] ([facility])[address] [place] [address] UREA NITROGEN/CREATININE (MASS RATIO) IN SER/PLAS 13.[address] [facility] Comment on above: Performed By: #### L [id number] ####[facility] ([facility])[address] [place] [address] Anion gap [Moles/Vol] 10 mmol/L Normal 7-20 [facility] Comment on above: Performed By: #### L [id number] ####[facility] ([facility])[address] [place] [address] Calcium [Mass/Vol] 9.5 mg/dL Normal 8.6-10.3 [facility] Comment on above: Performed By: #### L [id number] ####[facility] ([facility])[address] [place] [address] Chloride [Moles/Vol] 102 mmol/L Normal 98-107 [facility] Comment on above: Performed By: #### L [id number] ####[facility] ([facility])[address] [place] [address] CO2 [Moles/Vol] 27 mmol/L Normal 21-31 [facility] Comment on above: Performed By: #### L [id number] ####[facility] ([facility])[address] [place] [address] Creatinine [Mass/Vol] 1.39 mg/dL High 0.70-1.30 [facility] Comment on above: Performed By: #### L [id number] ####[facility] ([facility]ER)[address] [place] [address] GLOMERULAR FILTRATION RATE ML/MIN/1.73 SQ M.PREDICTED 54.5 mL/min/1.73m*2 Low >60.[address] [facility] Comment on above: Result Comment: [facility]???s estimated glomerular filtration rate (eGFR) will [...] of individuals. Performed By: #### L [id number] ####[facility] ([facility])[address] [place] [address] Glucose [Mass/Vol] 171 mg/dL High 70-100 [facility] Comment on above: Performed By: #### L [id number] ####[facility] ([facility])[address] [place] [address] Potassium [Moles/Vol] 4.0 mmol/L Normal 3.5-5.1 [facility] Comment on above: Performed By: #### L [id number] ####[facility] ([facility]ER)[address] [place] [address] Sodium [Moles/Vol] 135 mmol/L Low 136-145 [facility] Comment on above: Performed By: #### L [id number] ####[facility] ([facility])[address] [place] [address] Urea nitrogen [Mass/Vol] 20 mg/dL Normal 7-25 [facility] Comment on above: Performed By: #### L [id number] ####[facility] ([facility])[address] [place] [address] UREA NITROGEN/CREATININE (MASS RATIO) IN SER/PLAS 14.[address] [facility] Comment on above: Performed By: #### L [id number] ####[facility] ([facility])[address] [place] [address] CBCon 11-30-2022 Erythrocyte distribution width (RBC) [Ratio] 14.2 % Normal 11.5-15.0 [facility] Comment on above: Performed By: #### L [id number] ####[facility] ([facility])[address] [place] [address] ERYTHROCYTE MEAN CORPUSCULAR HEMOGLOBIN CONCENTRATION (G/DL) BY AUTOMATED 33.3 g/dL Normal 32.0-35.0 [facility] Comment on above: Performed By: #### L [id number] ####[facility] ([facility])[address] [place] [address] Hematocrit (Bld) [Volume fraction] 41.7 % Normal 39.0-55.0 [facility] Comment on above: Performed By: #### L [id number] ####[facility] ([facility])[address] [place] [address] Hemoglobin (Bld) [Mass/Vol] 13.9 g/dL Normal 13.0-17.0 [facility] Comment on above: Performed By: #### L [id number] ####[facility] ([facility])[address] [place] [address] MCH (RBC) [Entitic mass] 29.5 pg Normal 27.0-33.0 [facility] Comment on above: Performed By: #### L [id number] ####[facility] ([facility])[address] [place] [address] MCV (RBC) [Entitic vol] 88.5 fL Normal 82.0-98.0 [facility] Comment on above: Performed By: #### L [id number] ####[facility] ([facility])[address] [place] [address] PLATELETS (10*3/UL) IN BLOOD AUTOMATED COUNT 183 10*3/uL Normal 150-400 [facility] Comment on above: Performed By: #### L [id number] ####[facility] ([facility])[address] [place] [address] RBC (Bld) [#/Vol] 4.71 10*6/uL Normal 4.20-5.70 [facility] Comment on above: Performed By: #### L [id number] ####[facility] ([facility])[address] [place] [address] WBC (Bld) [#/Vol] 8.24 10*3/uL Normal 4.00-10.60 [facility] Comment on above: Performed By: #### L [id number] ####[facility] ([facility])[address] [place] [address] CBC WITH AUTO DIFFERENTIALon 11-30-2022 Basophils (Bld) [#/Vol] 0.02 10*3/uL Normal 0.00-0.20 [facility] Comment on above: Performed By: #### L [id number] ####[facility] ([facility])[address] [place] [address] Basophils/100 WBC (Bld) 0.2 % Normal 0.0-1.0 [facility] Comment on above: Performed By: #### L [id number] ####[facility] ([facility])[address] [place] [address] Eosinophils (Bld) [#/Vol] 0.11 10*3/uL Normal 0.00-0.50 [facility] Comment on above: Performed By: #### L [id number] ####[facility] ([facility])[address] [place] [address] Eosinophils/100 WBC (Bld) 1.2 % Normal 0.0-6.0 [facility] Comment on above: Performed By: #### L [id number] ####[facility] ([facility])[address] [place] [address] Erythrocyte distribution width (RBC) [Ratio] 14.5 % Normal 11.5-15.0 [facility] Comment on above: Performed By: #### L [id number] ####[facility] ([facility])[address] [place] [address] ERYTHROCYTE MEAN CORPUSCULAR HEMOGLOBIN CONCENTRATION (G/DL) BY AUTOMATED 33.1 g/dL Normal 32.0-35.0 [facility] Comment on above: Performed By: #### L [id number] ####[facility] ([facility])[address] [place] [address] Hematocrit (Bld) [Volume fraction] 37.2 % Low 39.0-55.0 [facility] Comment on above: Performed By: #### L [id number] ####[facility] ([facility])[address] [place] [address] Hemoglobin (Bld) [Mass/Vol] 12.3 g/dL Low 13.0-17.0 [facility] Comment on above: Performed By: #### L [id number] ####[facility] ([facility])[address] [place] [address] Immature granulocytes (Bld) [#/Vol] 0.06 10*3/uL Normal 0.00-0.20 [facility] Comment on above: Performed By: #### L [id number] ####[facility] ([facility])[address] [place] [address] Immature granulocytes/100 WBC (Bld) 0.6 % Normal 0.0-1.0 [facility] Comment on above: Performed By: #### L [id number] ####[facility] ([facility] [place] [address] Lymphocytes (Bld) [#/Vol] 0.97 10*3/uL Low 1.20-4.00 [facility] Comment on above: Performed By: #### L [id number] ####[facility] ([facility])[address] [place] [address] Lymphocytes/100 WBC (Bld) 10.3 % Low 20.0-45.0 [facility] Comment on above: Performed By: #### L [id number] ####[facility] ([facility])[address] [place] [address] MCH (RBC) [Entitic mass] 29.5 pg Normal 27.0-33.0 [facility] Comment on above: Performed By: #### L [id number] ####[facility] ([facility])[address] [place] [address] MCV (RBC) [Entitic vol] 89.2 fL Normal 82.0-98.0 [facility] Comment on above: Performed By: #### L [id number] ####[facility] ([facility])[address] [place] [address] Monocytes (Bld) [#/Vol] 0.78 10*3/uL Normal 0.10-1.00 [facility] Comment on above: Performed By: #### L [id number] ####[facility] ([facility])[address] [place] [address] Monocytes/100 WBC (Bld) 8.3 % Normal 5.0-12.0 [facility] Comment on above: Performed By: #### L [id number] ####[facility] ([facility] [place] [address] Neutrophils (Bld) [#/Vol] 7.48 10*3/uL Normal 1.60-7.60 [facility] Comment on above: Performed By: #### L [id number] ####[facility] ([facility])[address] [place] [address] Neutrophils/100 WBC (Bld) 79.4 % High 40.0-72.0 [facility] Comment on above: Performed By: #### L [id number] ####[facility] ([facility])[address] [place] [address] NRBC (PER 100 WBCS) BY AUTOMATED COUNT 0.0 % Normal 0 [facility] Comment on above: Performed By: #### L [id number] ####[facility] ([facility])[address] [place] [address] PLATELETS (10*3/UL) IN BLOOD AUTOMATED COUNT 172 10*3/uL Normal 150-400 [facility] Comment on above: Performed By: #### L [id number] ####[facility] ([facility])[address] [place] [address] RBC (Bld) [#/Vol] 4.17 10*6/uL Low 4.20-5.70 [facility] Comment on above: Performed By: #### L [id number] ####[facility] ([facility])[address] [place] [address] WBC (Bld) [#/Vol] 9.42 10*3/uL Normal 4.00-10.60 [facility] Comment on above: Performed By: #### L [id number] ####[facility] ([facility])[address] [place] [address] CTA ABDOMEN PELVIS W AND/OR WO IV CONTRASTon 11-30-2022 CTA ABDOMEN PELVIS W AND/OR WO IV CONTRAST Normal [facility] CTA CHEST W AND/OR WO IV CON TRASTon 11-30-2022 CTA CHEST W AND/OR WO IV CONTRAST Normal [facility] DSon 11-30-2022 DS This report has been cancelled. Normal [facility] NURSNOTEon 11-30-[address] [facility] NURSNOTE Normal [facility] POCT GLUCOSE METER UNSOLICIT ED RESULTSon 11-30-2022 Glucose [Mass/Vol] 228 mg/dL High 70-105 [facility] Comment on above: Order Comment: Waive d Testing in the ED is performed under the ED CLIA certificate #[id number]. Result Comment: [email or web address] Performed By: #### L [id number] ####[facility] ([facility])[address] [place] [address] Glucose [Mass/Vol] 228 mg/dL High 70-105 [facility] Comment on above: Order Comment: Waive d Testing in the ED is performed under the ED CLIA certificate #[id number]. Result Comment: [email or web address] Performed By: #### L [id number] ####[facility] ([facility])[address] [place] [address] Glucose [Mass/Vol] 219 mg/dL High 70-105 [facility] Comment on above: Order Comment: Waive d Testing in the ED is performed under the ED CLIA certificate #[id number]. Result Comment: [email or web address] Performed By: #### L [id number] ####[facility] ([facility])[address] [place] [address] Glucose [Mass/Vol] 186 mg/dL High 70-105 [facility] Comment on above: Order Comment: Waive d Testing in the ED is performed under the ED CLIA certificate #[id number]. Result Comment: [email or web address] Performed By: #### L [id number] ####[facility] ([facility])[address] [place] [address] Glucose [Mass/Vol] 217 mg/dL High 70-105 [facility] Comment on above: Order Comment: Waive d Testing in the ED is performed under the ED CLIA certificate #[id number]. Result Comment: [email or web address] Performed By: #### L [id number] ####[facility] ([facility])[address] [place] [address] Glucose [Mass/Vol] 175 mg/dL High 70-105 [facility] Comment on above: Order Comment: Waive d Testing in the ED is performed under the ED CLIA certificate #[id number]. Result Comment: [email or web address] Performed By: #### L [id number] ####[facility] ([facility])[address] [place] [address] TROPONIN Ion 11-30-2022 Troponin I.cardiac [Mass/Vol] 0.05 ng/mL High 0.00-0.04 [facility] Comment on above: Performed By: #### L [id number] ####[facility] ([facility])[address] [place] [address] 30on 11-29-[address] [facility] 30 [facility] [address] [facility] ANESon 11-29-[address] [facility] ANTI-XA (HEPARIN LEVEL)on HEPARIN UNFRACTIONATED (U/ML) IN PPP BY CHROMOGENIC METHOD 0.42 IU/mL Normal 0.3-0.7 [facility] Comment on above: Result Comment: Maricruz roxaban and Apixaban will interfere with the anti Xa assay used to monitor UFH and LMWH. Performed By: #### L [id number] ####[facility] (BEAKER)[address] [facility] [place] [address] HEPARIN UNFRACTIONATED (U/ML) IN PPP BY CHROMOGENIC METHOD 0.74 IU/mL High 0.3-0.7 [facility] Comment on above: Result Comment: Argenta roxaban and Apixaban will interfere with the anti Xa assay used to monitor UFH and LMWH. Performed By: #### L [id number] ####[facility] (BEAKER)[address] [facility] [place] [address] BASIC METABOLIC PANELon 11-11 Anion gap [Moles/Vol] 9 mmol/L Normal 7-20 [facility] Comment on above: Performed By: #### L [id number] ####[facility] (BEAKER)[address] [facility] [place] [facility] [place] [address] Calcium [Mass/Vol] 9.5 mg/dL Normal 8.6-10.3 [facility] Comment on above: Performed By: #### L [id number] ####[facility] (BEAKER)[address] [place] [address] Chloride [Moles/Vol] 103 mmol/L Normal 98-107 [facility] Comment on above: Performed By: #### L [id number] ####[facility] (BEAKER)[address] [facility] [address] CO2 [Moles/Vol] 28 mmol/L Normal 21-31 [facility] Comment on above: Performed By: #### L [id number] ####[facility] (BEAKER)[address] [place] [address] Creatinine [Mass/Vol] 1.44 mg/dL High 0.70-1.30 [facility] Comment on above: Performed By: #### L [id number] ####[facility] ([facility])[address] [place] [address] GLOMERULAR FILTRATION RATE ML/MIN/1.73 SQ M.PREDICTED 52.3 mL/min/1.73m*2 Low >60.[address] [facility] Comment on above: Result Comment: [facility]???s estimated glomerular filtration rate (eGFR) will [...] of individuals. Performed By: #### L [id number] ####[facility] ([facility])[address] [place] [address] Glucose [Mass/Vol] 178 mg/dL High 70-100 [facility] Comment on above: Performed By: #### L [id number] ####[facility] ([facility])[address] [place] [address] Potassium [Moles/Vol] 4.1 mmol/L Normal 3.5-5.1 [facility] Comment on above: Performed By: #### L [id number] ####[facility] ([facility])[address] [place] [address] Sodium [Moles/Vol] 136 mmol/L Normal 136-145 [facility] Comment on above: Performed By: #### L [id number] ####[facility] ([facility])[address] [place] [address] Urea nitrogen [Mass/Vol] 17 mg/dL Normal 7-25 [facility] Comment on above: Performed By: #### L [id number] ####[facility] (BEAKER)[address] [place] [address] UREA NITROGEN/CREATININE (MASS RATIO) IN SER/PLAS 11.[address] [facility] Comment on above: Performed By: #### L [id number] ####[facility] [place] [address] CBCon 11-29-2022 Erythrocyte distribution width (RBC) [Ratio] 14.4 % Normal 11.5-15.0 [facility] Comment on above: Performed By: #### L [id number] ####[facility] ([facility])[address] [place] [address] ERYTHROCYTE MEAN CORPUSCULAR HEMOGLOBIN CONCENTRATION (G/DL) BY AUTOMATED 34.0 g/dL Normal 32.0-35.0 [facility] Comment on above: Performed By: #### L [id number] ####[facility] ([facility])[address] [place] [address] Hematocrit (Bld) [Volume fraction] 41.5 % Normal 39.0-55.0 [facility] Comment on above: Performed By: #### L [id number] ####[facility] ([facility])[address] [place] [address] Hemoglobin (Bld) [Mass/Vol] 14.1 g/dL Normal 13.0-17.0 [facility] Comment on above: Performed By: #### L [id number] ####[facility] [place] [address] MCH (RBC) [Entitic mass] 29.6 pg Normal 27.0-33.0 [facility] Comment on above: Performed By: #### L [id number] ####[facility] [place] [address] MCV (RBC) [Entitic vol] 87.2 fL Normal 82.0-98.0 [facility] Comment on above: Performed By: #### L [id number] ####[facility] ([facility] [place] [address] PLATELETS (10*3/UL) IN BLOOD AUTOMATED COUNT 180 10*3/uL Normal 150-400 [facility] Comment on above: Performed By: #### L [id number] ####[facility] ([facility])[address] [place] [address] RBC (Bld) [#/Vol] 4.76 10*6/uL Normal 4.20-5.70 [facility] Comment on above: Performed By: #### L [id number] ####[facility] ([facility])[address] [place] [address] WBC (Bld) [#/Vol] 6.10 10*3/uL Normal 4.00-10.60 [facility] Comment on above: Performed By: #### L [id number] ####[facility] ([facility])[address] [place] [address] CONSULTon 11-29-[address] [facility] HPon 11-29-2022 HP H&P reviewed. The patient was examined and there are no changes to the H&P. Normal [facility] POCT GLUCOSE METER UNSOLICIT ED RESULTSon 11-29-2022 Glucose [Mass/Vol] 168 mg/dL High 70-105 [facility] Comment on above: Order Comment: Waive d Testing in the ED is performed under the ED CLIA certificate #[id number]. Result Comment: [email or web address] Performed By: #### L [id number] ####[facility] ([facility])[address] [place] [address] Glucose [Mass/Vol] 122 mg/dL High 70-105 [facility] Comment on above: Order Comment: Waive d Testing in the ED is performed under the ED CLIA certificate #[id number]. Result Comment: [email or web address] Performed By: #### L [id number] ####[facility] ([facility])[address] [place] [address] Glucose [Mass/Vol] 144 mg/dL High 70-105 [facility] Comment on above: Order Comment: Waive d Testing in the ED is performed under the ED CLIA certificate #[id number]. Result Comment: [email or web address] Performed By: #### L [id number] ####[facility] ([facility])[address] [place] [address] Glucose [Mass/Vol] 157 mg/dL High 70-105 [facility] Comment on above: Order Comment: Waive d Testing in the ED is performed under the ED CLIA certificate #[id number]. Result Comment: [email or web address] Performed By: #### L [id number] ####[facility] ([facility])[address] [place] [address] 30on 11-28-[address] [facility] [address] [facility] [address] [facility] ANTI-XA (HEPARIN LEVEL)on HEPARIN UNFRACTIONATED (U/ML) IN PPP BY CHROMOGENIC METHOD 0.47 IU/mL Normal 0.3-0.7 [facility] Comment on above: Result Comment: Maricruz roxaban and Apixaban will interfere with the anti Xa assay used to monitor UFH and LMWH. Performed By: #### L [id number] ####[facility] ([facility])[address] [place] [address] HEPARIN UNFRACTIONATED (U/ML) IN PPP BY CHROMOGENIC METHOD 0.40 IU/mL Normal 0.3-0.7 [facility] Comment on above: Result Comment: Maricruz roxaban and Apixaban will interfere with the anti Xa assay used to monitor UFH and LMWH. Performed By: #### L [id number] ####[facility] ([facility])[address] [place] [address] HEPARIN UNFRACTIONATED (U/ML) IN PPP BY CHROMOGENIC METHOD 0.23 IU/mL Low 0.3-0.7 [facility] Comment on above: Result Comment: Maricruz roxaban and Apixaban will interfere with the anti Xa assay used to monitor UFH and LMWH. Performed By: #### L [id number] ####[facility] (BEAKER)[address] [place] [address] HEPARIN UNFRACTIONATED (U/ML) IN PPP BY CHROMOGENIC METHOD 0.10 IU/mL Invalid Interpretation Code 0.3-0.7 [facility] Comment on above: Result Comment: Argenta roxaban and Apixaban will interfere with the anti Xa assay used to monitor UFH and LMWH. Performed By: #### L [id number] ####[facility] ([facility] [place] [address] BASIC METABOLIC PANELon - Anion gap [Moles/Vol] 10 mmol/L Normal 7-20 [facility] Comment on above: Performed By: #### L [id number] ####[facility] ([facility] [place] [address] Calcium [Mass/Vol] 8.9 mg/dL Normal 8.6-10.3 [facility] Comment on above: Performed By: #### L [id number] ####[facility] ([facility] [place] [address] Chloride [Moles/Vol] 105 mmol/L Normal 98-107 [facility] Comment on above: Performed By: #### L [id number] ####[facility] ([facility])[address] [place] [address] CO2 [Moles/Vol] 25 mmol/L Normal 21-31 [facility] Comment on above: Performed By: #### L [id number] ####[facility] ([facility])[address] [place] [address] Creatinine [Mass/Vol] 1.22 mg/dL Normal 0.70-1.30 [facility] Comment on above: Performed By: #### L [id number] ####[facility] (BEAKER)[address] [place] [address] GLOMERULAR FILTRATION RATE ML/MIN/1.73 SQ M.PREDICTED 63.8 mL/min/1.73m*2 Normal >60.[address] [facility] Comment on above: Result Comment: [facility]???s estimated glomerular filtration rate (eGFR) will [...] of individuals. Performed By: #### L [id number] ####[facility] ([facility])[address] [place] [address] Glucose [Mass/Vol] 153 mg/dL High 70-100 [facility] Comment on above: Performed By: #### L [id number] ####[facility] ([facility])[address] [place] [address] Potassium [Moles/Vol] 3.8 mmol/L Normal 3.5-5.1 [facility] Comment on above: Performed By: #### L [id number] ####[facility] ([facility])[address] [place] [address] Sodium [Moles/Vol] 136 mmol/L Normal 136-145 [facility] Comment on above: Performed By: #### L [id number] ####[facility] ([facility])[address] [place] [address] Urea nitrogen [Mass/Vol] 14 mg/dL Normal 7-25 [facility] Comment on above: Performed By: #### L [id number] ####[facility] ([facility])[address] [place] [address] UREA NITROGEN/CREATININE (MASS RATIO) IN SER/PLAS 11.[address] [facility] Comment on above: Performed By: #### L [id number] ####[facility] (BEAKER)[address] [place] [address] CBCon 11-28-2022 Erythrocyte distribution width (RBC) [Ratio] 14.3 % Normal 11.5-15.0 [facility] Comment on above: Performed By: #### L [id number] ####[facility] (BEAKER)[address] [place] [address] ERYTHROCYTE MEAN CORPUSCULAR HEMOGLOBIN CONCENTRATION (G/DL) BY AUTOMATED 33.2 g/dL Normal 32.0-35.0 [facility] Comment on above: Performed By: #### L [id number] ####[facility] ([facility] [place] [address] Hematocrit (Bld) [Volume fraction] 40.4 % Normal 39.0-55.0 [facility] Comment on above: Performed By: #### L [id number] ####[facility] ([facility] [place] [address] Hemoglobin (Bld) [Mass/Vol] 13.4 g/dL Normal 13.0-17.0 [facility] Comment on above: Performed By: #### L [id number] ####[facility] (BEAKER)[address] [place] [address] MCH (RBC) [Entitic mass] 29.3 pg Normal 27.0-33.0 [facility] Comment on above: Performed By: #### L [id number] ####[facility] (BEAKER)[address] [place] [address] MCV (RBC) [Entitic vol] 88.2 fL Normal 82.0-98.0 [facility] Comment on above: Performed By: #### L [id number] ####[facility] (BEAKER)[address] [place] [address] PLATELETS (10*3/UL) IN BLOOD AUTOMATED COUNT 194 10*3/uL Normal 150-400 [facility] Comment on above: Performed By: #### L [id number] ####[facility] (BEAKER)[address] [place] [address] RBC (Bld) [#/Vol] 4.58 10*6/uL Normal 4.20-5.70 [facility] Comment on above: Performed By: #### L [id number] ####[facility] ([facility])[address] [place] [address] WBC (Bld) [#/Vol] 7.10 10*3/uL Normal 4.00-10.60 [facility] Comment on above: Performed By: #### L [id number] ####[facility] ([facility])[address] [place] [address] CONSULTon 11-28-[address] [facility] MAGNESIUMon 11-28-2022 Magnesium [Mass/Vol] 1.7 mg/dL Low 1.9-2.7 [facility] Comment on above: Performed By: #### L [id number] ####[facility] ([facility])[address] [place] [address] NURSNOTEon 11-28-[address] [facility] PHOSPHORUSon 11-28-2022 Magnesium [Mass/Vol] 3.8 mg/dL Normal 2.5-5.0 [facility] Comment on above: Performed By: #### L [id number] ####[facility] ([facility])[address] [place] [address] POCT GLUCOSE METER UNSOLICIT ED RESULTSon 11-28-2022 Glucose [Mass/Vol] 202 mg/dL High 70-105 [facility] Comment on above: Order Comment: Waive d Testing in the ED is performed under the ED CLIA certificate #[id number]. Result Comment: [email or web address] Performed By: #### L [id number] ####[facility] ([facility])[address] [place] [address] Glucose [Mass/Vol] 110 mg/dL High 70-105 [facility] Comment on above: Order Comment: Waive d Testing in the ED is performed under the ED CLIA certificate #[id number]. Result Comment: [email or web address] Performed By: #### L [id number] ####[facility] ([facility])[address] [place] [address] Glucose [Mass/Vol] 190 mg/dL High 70-105 [facility] Comment on above: Order Comment: Waive d Testing in the ED is performed under the ED CLIA certificate #[id number]. Result Comment: [email or web address] Performed By: #### L [id number] ####[facility] ([facility])[address] [place] [address] Glucose [Mass/Vol] 147 mg/dL High 70-105 [facility] Comment on above: Order Comment: Waive d Testing in the ED is performed under the ED CLIA certificate #[id number]. Result Comment: [email or web address] Performed By: #### L [id number] ####[facility] ([facility])[address] [place] [address] 30on 11-27-[address] [facility] [address] [facility] [address] [facility] ANESon 11-27-2022 ANES [facility] ANTI-XA (HEPARIN LEVEL)on HEPARIN UNFRACTIONATED (U/ML) IN PPP BY CHROMOGENIC METHOD 0.49 IU/mL Normal 0.3-0.7 [facility] Comment on above: Result Comment: Maricruz roxaban and Apixaban will interfere with the anti Xa assay used to monitor UFH and LMWH. Performed By: #### L [id number] ####[facility] ([facility])[address] [place] [address] HEPARIN UNFRACTIONATED (U/ML) IN PPP BY CHROMOGENIC METHOD 0.50 IU/mL Normal 0.3-0.7 [facility] Comment on above: Result Comment: Maricruz roxaban and Apixaban will interfere with the anti Xa assay used to monitor UFH and LMWH. Performed By: #### L [id number] ####[facility] ([facility])[address] [place] [address] BASIC METABOLIC PANELon 11-11 Anion gap [Moles/Vol] 9 mmol/L Normal 7-20 [facility] Comment on above: Performed By: #### L [id number] ####[facility] [place] [address] Calcium [Mass/Vol] 8.9 mg/dL Normal 8.6-10.3 [facility] Comment on above: Performed By: #### L [id number] ####[facility] ([facility])[address] [place] [address] Chloride [Moles/Vol] 104 mmol/L Normal 98-107 [facility] Comment on above: Performed By: #### L [id number] ####[facility] ([facility])[address] [place] [address] CO2 [Moles/Vol] 25 mmol/L Normal 21-31 [facility] Comment on above: Performed By: #### L [id number] ####[facility] ([facility])[address] [place] [address] Creatinine [Mass/Vol] 1.34 mg/dL High 0.70-1.30 [facility] Comment on above: Performed By: #### L [id number] ####[facility] ([facility])[address] [place] [address] GLOMERULAR FILTRATION RATE ML/MIN/1.73 SQ M.PREDICTED 57.0 mL/min/1.73m*2 Low >60.[address] [facility] Comment on above: Result Comment: [facility]???s estimated glomerular filtration rate (eGFR) will [...] of individuals. Performed By: #### L [id number] ####[facility] ([facility])[address] [place] [address] Glucose [Mass/Vol] 210 mg/dL High 70-100 [facility] Comment on above: Performed By: #### L [id number] ####[facility] [place] [address] Potassium [Moles/Vol] 4.1 mmol/L Normal 3.5-5.1 [facility] Comment on above: Performed By: #### L [id number] ####[facility] ([facility])[address] [place] [address] Sodium [Moles/Vol] 134 mmol/L Low 136-145 [facility] Comment on above: Performed By: #### L [id number] ####[facility] ([facility])[address] [place] [address] Urea nitrogen [Mass/Vol] 18 mg/dL Normal 7-25 [facility] Comment on above: Performed By: #### L [id number] ####[facility] ([facility] [place] [address] UREA NITROGEN/CREATININE (MASS RATIO) IN SER/PLAS 13.[address] [facility] Comment on above: Performed By: #### L [id number] ####[facility])[address] [place] [address] CBCon 11-27-2022 Erythrocyte distribution width (RBC) [Ratio] 14.2 % Normal 11.5-15.0 [facility] Comment on above: Performed By: #### L [id number] ####[facility] ([facility] [place] [address] ERYTHROCYTE MEAN CORPUSCULAR HEMOGLOBIN CONCENTRATION (G/DL) BY AUTOMATED 33.3 g/dL Normal 32.0-35.0 [facility] Comment on above: Performed By: #### L [id number] ####[facility] [place] [address] Hematocrit (Bld) [Volume fraction] 41.5 % Normal 39.0-55.0 [facility] Comment on above: Performed By: #### L [id number] ####[facility] ([facility])[address] [place] [address] Hemoglobin (Bld) [Mass/Vol] 13.8 g/dL Normal 13.0-17.0 [facility] Comment on above: Performed By: #### L [id number] ####[facility] ([facility])[address] [place] [address] MCH (RBC) [Entitic mass] 28.9 pg Normal 27.0-33.0 [facility] Comment on above: Performed By: #### L [id number] ####[facility] ([facility])[address] [place] [address] MCV (RBC) [Entitic vol] 86.8 fL Normal 82.0-98.0 [facility] Comment on above: Performed By: #### L [id number] ####[facility] ([facility])[address] [place] [address] PLATELETS (10*3/UL) IN BLOOD AUTOMATED COUNT 187 10*3/uL Normal 150-400 [facility] Comment on above: Performed By: #### L [id number] ####[facility] ([facility])[address] [place] [address] RBC (Bld) [#/Vol] 4.78 10*6/uL Normal 4.20-5.70 [facility] Comment on above: Performed By: #### L [id number] ####[facility] ([facility])[address] [place] [address] WBC (Bld) [#/Vol] 6.16 10*3/uL Normal 4.00-10.60 [facility] Comment on above: Performed By: #### L [id number] ####[facility] ([facility])[address] [place] [address] HPon 11-27-[address] [facility] MAGNESIUMon 11-27-2022 Magnesium [Mass/Vol] 1.8 mg/dL Low 1.9-2.7 [facility] Comment on above: Performed By: #### L [id number] ####[facility] ([facility])[address] [place] [address] PHOSPHORUSon 11-27-2022 Magnesium [Mass/Vol] 3.4 mg/dL Normal 2.5-5.0 [facility] Comment on above: Performed By: #### L [id number] ####[facility] ([facility])[address] [place] [address] POCT GLUCOSE METER UNSOLICIT ED RESULTSon 11-27-2022 Glucose [Mass/Vol] 393 mg/dL High 70-105 [facility] Comment on above: Order Comment: Waive d Testing in the ED is performed under the ED CLIA certificate #[id number]. Result Comment: crystal philip Performed By: #### L [id number] ####[facility] ([facility])[address] [place] [address] Glucose [Mass/Vol] 142 mg/dL High 70-105 [facility] Comment on above: Order Comment: Waive d Testing in the ED is performed under the ED CLIA certificate #[id number]. Result Comment: lukasz yanez Performed By: #### L [id number] ####[facility] ([employer])[address] [place] [address] Glucose [Mass/Vol] 147 mg/dL High 70-105 [facility] Comment on above: Order Comment: Waive d Testing in the ED is performed under the ED CLIA certificate #[id number]. Result Comment: [place] Performed By: #### L [id number] ####[facility] ([facility])[address] [place] [address] Glucose [Mass/Vol] 163 mg/dL High 70-105 [facility] Comment on above: Order Comment: Waive d Testing in the ED is performed under the ED CLIA certificate #[id number]. Result Comment: [place] Performed By: #### L [id number] ####[facility] ([facility])[address] [place] [address] 30on 11-26-[address] [facility] [address] [facility] ANTI-XA (HEPARIN LEVEL)on HEPARIN UNFRACTIONATED (U/ML) IN PPP BY CHROMOGENIC METHOD 0.57 IU/mL Normal 0.3-0.7 [facility] Comment on above: Result Comment: Maricruz roxaban and Apixaban will interfere with the anti Xa assay used to monitor UFH and LMWH. Performed By: #### L [id number] ####[facility] (BEAKER)[address] [place] [address] HEPARIN UNFRACTIONATED (U/ML) IN PPP BY CHROMOGENIC METHOD 0.96 IU/mL Critically high 0.3-0.7 [facility] Comment on above: Result Comment: Maricruz roxaban and Apixaban will interfere with the anti Xa assay used to monitor UFH and LMWH. Performed By: #### L [id number] ####[facility] (BEAKER)[address] [place] [address] HEPARIN UNFRACTIONATED (U/ML) IN PPP BY CHROMOGENIC METHOD 0.68 IU/mL Normal 0.3-0.7 [facility] Comment on above: Order Comment: Check anti-Xa level every 6 hours while on heparin infusion, or per protocol. Result Comment: Maricruz roxaban and Apixaban will interfere with the anti Xa assay used to monitor UFH and LMWH. Performed By: #### L [id number] ####[facility] (BEAKER)[address] [place] [address] HEPARIN UNFRACTIONATED (U/ML) IN PPP BY CHROMOGENIC METHOD 0.66 IU/mL Normal 0.3-0.7 [facility] Comment on above: Order Comment: Check anti-Xa level every 6 hours while on heparin infusion, or per protocol. Result Comment: Argenta roxaban and Apixaban will interfere with the anti Xa assay used to monitor UFH and LMWH. Performed By: #### L [id number] ####[facility] (BEAKER)[address] [place] [address] BASIC METABOLIC PANELon 11-11 Anion gap [Moles/Vol] 8 mmol/L Normal 7-20 [facility] Comment on above: Performed By: #### L [id number] ####[facility] (BEAKER)[address] [place] [address] Calcium [Mass/Vol] 8.9 mg/dL Normal 8.6-10.3 [facility] Comment on above: Performed By: #### L [id number] ####[facility] (BEAKER)[address] [place] [address] Chloride [Moles/Vol] 106 mmol/L Normal 98-107 [facility] Comment on above: Performed By: #### L [id number] ####[facility] (BEAKER)[address] [place] [address] CO2 [Moles/Vol] 26 mmol/L Normal 21-31 [facility] Comment on above: Performed By: #### L [id number] ####[facility] (BEAKER)[address] [place] [address] Creatinine [Mass/Vol] 1.30 mg/dL Normal 0.70-1.30 [facility] Comment on above: Performed By: #### L [id number] ####[facility] ([facility] [place] [address] GLOMERULAR FILTRATION RATE ML/MIN/1.73 SQ M.PREDICTED 59.1 mL/min/1.73m*2 Low >60.[address] [facility] Comment on above: Result Comment: [facility]???s estimated glomerular filtration rate (eGFR) will [...] of individuals. Performed By: #### L [id number] ####[facility] ([facility] [place] [address] Glucose [Mass/Vol] 196 mg/dL High 70-100 [facility] Comment on above: Performed By: #### L [id number] ####[facility] ([facility] [place] [address] Potassium [Moles/Vol] 4.2 mmol/L Normal 3.5-5.1 [facility] Comment on above: Performed By: #### L [id number] ####[facility] ([facility])[address] [place] [address] Sodium [Moles/Vol] 136 mmol/L Normal 136-145 [facility] Comment on above: Performed By: #### L [id number] ####[facility] ([facility])[address] [place] [address] Urea nitrogen [Mass/Vol] 17 mg/dL Normal 7-25 [facility] Comment on above: Performed By: #### L [id number] ####[facility] ([facility])[address] [place] [address] UREA NITROGEN/CREATININE (MASS RATIO) IN SER/PLAS 13.[address] [facility] Comment on above: Performed By: #### L [id number] ####[facility] ([facility])[address] [place] [address] CBC WITH AUTO DIFFERENTIALon 11-26-2022 Basophils (Bld) [#/Vol] 0.03 10*3/uL Normal 0.00-0.20 [facility] Comment on above: Performed By: #### L [id number] ####[facility] ([facility])[address] [place] [address] Basophils/100 WBC (Bld) 0.4 % Normal 0.0-1.0 [facility] Comment on above: Performed By: #### L [id number] ####[facility] ([facility] [place] [address] Eosinophils (Bld) [#/Vol] 0.21 10*3/uL Normal 0.00-0.50 [facility] Comment on above: Performed By: #### L [id number] ####[facility] (BEAKER)[address] [place] [address] Eosinophils/100 WBC (Bld) 3.1 % Normal 0.0-6.0 [facility] Comment on above: Performed By: #### L [id number] ####[facility] (BEAKER)[address] [place] [address] Erythrocyte distribution width (RBC) [Ratio] 14.3 % Normal 11.5-15.0 [facility] Comment on above: Performed By: #### L [id number] ####[facility] (BEAKER)[address] [place] [address] ERYTHROCYTE MEAN CORPUSCULAR HEMOGLOBIN CONCENTRATION (G/DL) BY AUTOMATED 33.4 g/dL Normal 32.0-35.0 [facility] Comment on above: Performed By: #### L [id number] ####[facility] (BEAKER)[address] [place] [address] Hematocrit (Bld) [Volume fraction] 42.5 % Normal 39.0-55.0 [facility] Comment on above: Performed By: #### L [id number] ####[facility] (BEAKER)[address] [place] [address] Hemoglobin (Bld) [Mass/Vol] 14.2 g/dL Normal 13.0-17.0 [facility] Comment on above: Performed By: #### L [id number] ####[facility] (BEAKER)[address] [place] [address] Immature granulocytes (Bld) [#/Vol] 0.03 10*3/uL Normal 0.00-0.20 [facility] Comment on above: Performed By: #### L [id number] ####[facility] (BEAKER)[address] [place] [address] Immature granulocytes/100 WBC (Bld) 0.4 % Normal 0.0-1.0 [facility] Comment on above: Performed By: #### L [id number] ####[facility] ([facility])[address] [place] [address] Lymphocytes (Bld) [#/Vol] 1.09 10*3/uL Low 1.20-4.00 [facility] Comment on above: Performed By: #### L [id number] ####[facility] ([facility])[address] [place] [address] Lymphocytes/100 WBC (Bld) 16.2 % Low 20.0-45.0 [facility] Comment on above: Performed By: #### L [id number] ####[facility] ([facility])[address] [place] [address] MCH (RBC) [Entitic mass] 29.1 pg Normal 27.0-33.0 [facility] Comment on above: Performed By: #### L [id number] ####[facility] ([facility])[address] [place] [address] MCV (RBC) [Entitic vol] 87.1 fL Normal 82.0-98.0 [facility] Comment on above: Performed By: #### L [id number] ####[facility] ([facility])[address] [place] [address] Monocytes (Bld) [#/Vol] 0.46 10*3/uL Normal 0.10-1.00 [facility] Comment on above: Performed By: #### L [id number] ####[facility] ([facility])[address] [place] [address] Monocytes/100 WBC (Bld) 6.8 % Normal 5.0-12.0 [facility] Comment on above: Performed By: #### L [id number] ####[facility] ([facility] [place] [address] Neutrophils (Bld) [#/Vol] 4.90 10*3/uL Normal 1.60-7.60 [facility] Comment on above: Performed By: #### L [id number] ####[facility] ([facility] [place] [address] Neutrophils/100 WBC (Bld) 73.1 % High 40.0-72.0 [facility] Comment on above: Performed By: #### L [id number] ####[facility] ([facility])[address] [place] [address] NRBC (PER 100 WBCS) BY AUTOMATED COUNT 0.0 % Normal 0 [facility] Comment on above: Performed By: #### L [id number] ####[facility] ([facility])[address] [place] [address] PLATELETS (10*3/UL) IN BLOOD AUTOMATED COUNT 201 10*3/uL Normal 150-400 [facility] Comment on above: Performed By: #### L [id number] ####[facility] ([facility])[address] [place] [address] RBC (Bld) [#/Vol] 4.88 10*6/uL Normal 4.20-5.70 [facility] Comment on above: Performed By: #### L [id number] ####[facility] ([facility])[address] [address] WBC (Bld) [#/Vol] 6.72 10*3/uL Normal 4.00-10.60 [facility] Comment on above: Performed By: #### L [id number] ####[facility] ([facility])[address] [place] [address] MAGNESIUMon 11-26-2022 Magnesium [Mass/Vol] 1.7 mg/dL Low 1.9-2.7 [facility] Comment on above: Performed By: #### L [id number] ####[facility] ([facility] [place] [address] NURSNOTEon 11-26-[address] [facility] PHOSPHORUSon 11-26-2022 Magnesium [Mass/Vol] 3.0 mg/dL Normal 2.5-5.0 [facility] Comment on above: Performed By: #### L [id number] ####[facility] ([facility])[address] [place] [address] POCT GLUCOSE METER UNSOLICIT ED RESULTSon 11-26-2022 Glucose [Mass/Vol] 188 mg/dL High 70-105 [facility] Comment on above: Order Comment: Waive d Testing in the ED is performed under the ED CLIA certificate #[id number]. Result Comment: [email or web address] Performed By: #### L [id number] ####[facility] ([facility])[address] [place] [address] Glucose [Mass/Vol] 142 mg/dL High 70-105 [facility] Comment on above: Order Comment: Waive d Testing in the ED is performed under the ED CLIA certificate #[id number]. Result Comment: [email or web address] Performed By: #### L [id number] ####[facility] ([facility])[address] [place] [address] Glucose [Mass/Vol] 201 mg/dL High 70-105 [facility] Comment on above: Order Comment: Waive d Testing in the ED is performed under the ED CLIA certificate #[id number]. Result Comment: [email or web address] Performed By: #### L [id number] ####[facility] ([facility])[address] [place] [address] Glucose [Mass/Vol] 159 mg/dL High 70-105 [facility] Comment on above: Order Comment: Waive d Testing in the ED is performed under the ED CLIA certificate #[id number]. Result Comment: [email or web address] Performed By: #### L [id number] ####[facility] ([facility])[address] [place] [address] TROPONIN Ion 11-26-2022 Troponin I.cardiac [Mass/Vol] 0.02 ng/mL Normal 0.00-0.04 [facility] Comment on above: Performed By: #### L [id number] ####[facility] ([facility])[address] [place] [address] 30on 11-25-[address] [facility] ANTI-XA (HEPARIN LEVEL)on HEPARIN UNFRACTIONATED (U/ML) IN PPP BY CHROMOGENIC METHOD >1.00 Critically high 0.3-0.7 [facility] Comment on above: Order Comment: Check anti-Xa level every 6 hours while on heparin infusion, or per protocol. Result Comment: Argenta roxaban and Apixaban will interfere with the anti Xa assay used to monitor UFH and LMWH. Performed By: #### L [id number] ####[facility] ([facility])[address] [place] [address] APTTon 11-25-2022 ACTIVATED PARTIAL THROMBOPLASTIN TIME IN PPP BY COAGULATION ASSAY 31.6 Seconds Normal 25.0-35.0 [facility] Comment on above: Order Comment: Basel ine aPTT before initiating heparin infusion. Result Comment: Clin ical significance of the APTT is questionable in the presence of heparin. Performed By: #### L [id number] ####[facility] ([facility])[address] [place] [address] ACTIVATED PARTIAL THROMBOPLASTIN TIME IN PPP BY COAGULATION ASSAY 32.7 Seconds Normal 25.0-35.0 [facility] Comment on above: Result Comment: Clin ical significance of the APTT is questionable in the presence of heparin. Performed By: #### L [id number] ####[facility] ([facility])[address] [place] [address] BASIC METABOLIC PANELon 11-11 Anion gap [Moles/Vol] 11 mmol/L Normal 7-20 [facility] Comment on above: Performed By: #### L [id number] ####[facility] ([facility])[address] [place] [address] Calcium [Mass/Vol] 9.2 mg/dL Normal 8.6-10.3 [facility] Comment on above: Performed By: #### L [id number] ####[facility] ([facility])[address] [place] [address] Chloride [Moles/Vol] 105 mmol/L Normal 98-107 [facility] Comment on above: Performed By: #### L [id number] ####[facility] ([facility])[address] [place] [address] CO2 [Moles/Vol] 26 mmol/L Normal 21-31 [facility] Comment on above: Performed By: #### L [id number] ####[facility] ([facility])[address] [place] [address] Creatinine [Mass/Vol] 1.21 mg/dL Normal 0.70-1.30 [facility] Comment on above: Performed By: #### L [id number] ####[facility] ([facility])[address] [place] [address] GLOMERULAR FILTRATION RATE ML/MIN/1.73 SQ M.PREDICTED 64.4 mL/min/1.73m*2 Normal >60.[address] [facility] Comment on above: Result Comment: [facility]???s estimated glomerular filtration rate (eGFR) will [...] of individuals. Performed By: #### L [id number] ####[facility] ([facility])[address] [place] [address] Glucose [Mass/Vol] 200 mg/dL High 70-100 [facility] Comment on above: Performed By: #### L [id number] ####[facility] ([facility])[address] [place] [address] Potassium [Moles/Vol] 3.8 mmol/L Normal 3.5-5.1 [facility] Comment on above: Performed By: #### L [id number] ####[facility] ([facility])[address] [place] [address] Sodium [Moles/Vol] 138 mmol/L Normal 136-145 [facility] Comment on above: Performed By: #### L [id number] ####[facility] (BEAKER)[address] [place] [address] Urea nitrogen [Mass/Vol] 18 mg/dL Normal 7-25 [facility] Comment on above: Performed By: #### L [id number] ####[facility] ([facility]AKER)[address] [place] [address] UREA NITROGEN/CREATININE (MASS RATIO) IN SER/PLAS 14.[address] [facility] Comment on above: Performed By: #### L [id number] ####[facility] ([facility] [place] [address] CALCIUM, IONIZEDon CALCIUM IONIZED (MMOL/L) IN BLOOD 1.16 mmol/L Normal 1.15-1.33 [facility] Comment on above: Performed By: #### C ALCIUM, IONIZED ####[facility] [id number] [place] [address] [place] CBC WITH AUTO DIFFERENTIALon 11-25-2022 Basophils (Bld) [#/Vol] 0.03 10*3/uL Normal 0.00-0.20 [facility] Comment on above: Performed By: #### L [id number] ####[facility] ([facility]AKER)[address] [place] [address] Basophils/100 WBC (Bld) 0.5 % Normal 0.0-1.0 [facility] Comment on above: Performed By: #### L [id number] ####[facility] ([facility]AKER)[address] [place] [address] Eosinophils (Bld) [#/Vol] 0.15 10*3/uL Normal 0.00-0.50 [facility] Comment on above: Performed By: #### L [id number] ####[facility] (BEAKER)[address] [place] [address] Eosinophils/100 WBC (Bld) 2.3 % Normal 0.0-6.0 [facility] Comment on above: Performed By: #### L [id number] ####[facility] (BEAKER)[address] [place] [address] Erythrocyte distribution width (RBC) [Ratio] 14.1 % Normal 11.5-15.0 [facility] Comment on above: Performed By: #### L [id number] ####[facility] ([facility]ER)[address] [place] [address] ERYTHROCYTE MEAN CORPUSCULAR HEMOGLOBIN CONCENTRATION (G/DL) BY AUTOMATED 34.5 g/dL Normal 32.0-35.0 [facility] Comment on above: Performed By: #### L [id number] ####[facility] ([facility] [place] [address] Hematocrit (Bld) [Volume fraction] 44.4 % Normal 39.0-55.0 [facility] Comment on above: Performed By: #### L [id number] ####[facility] (BEAKER)[address] [place] [address] Hemoglobin (Bld) [Mass/Vol] 15.3 g/dL Normal 13.0-17.0 [facility] Comment on above: Performed By: #### L [id number] ####[facility] ([facility]ER)[address] [place] [address] Immature granulocytes (Bld) [#/Vol] 0.03 10*3/uL Normal 0.00-0.20 [facility] Comment on above: Performed By: #### L [id number] ####[facility] (BEAKER)[address] [place] [address] Immature granulocytes/100 WBC (Bld) 0.5 % Normal 0.0-1.0 [facility] Comment on above: Performed By: #### L [id number] ####[facility] (BEAKER)[address] [place] [address] Lymphocytes (Bld) [#/Vol] 0.98 10*3/uL Low 1.20-4.00 [facility] Comment on above: Performed By: #### L [id number] ####[facility] ([facility])[address] [place] [address] Lymphocytes/100 WBC (Bld) 15.0 % Low 20.0-45.0 [facility] Comment on above: Performed By: #### L [id number] ####[facility] (BEAKER)[address] [place] [address] MCH (RBC) [Entitic mass] 29.4 pg Normal 27.0-33.0 [facility] Comment on above: Performed By: #### L [id number] ####[facility] (BEAKER)[address] [place] [address] MCV (RBC) [Entitic vol] 85.4 fL Normal 82.0-98.0 [facility] Comment on above: Performed By: #### L [id number] ####[facility] (BEAKER)[address] [place] [address] Monocytes (Bld) [#/Vol] 0.55 10*3/uL Normal 0.10-1.00 [facility] Comment on above: Performed By: #### L [id number] ####[facility] (BEAKER)[address] [place] [address] Monocytes/100 WBC (Bld) 8.4 % Normal 5.0-12.0 [facility] Comment on above: Performed By: #### L [id number] ####[facility] ([facility])[address] [place] [address] Neutrophils (Bld) [#/Vol] 4.80 10*3/uL Normal 1.60-7.60 [facility] Comment on above: Performed By: #### L [id number] ####[facility] (BE[facility]ER)[address] [place] [address] Neutrophils/100 WBC (Bld) 73.3 % High 40.0-72.0 [facility] Comment on above: Performed By: #### L [id number] ####[facility] ([facility])[address] [address] NRBC (PER 100 WBCS) BY AUTOMATED COUNT 0.0 % Normal 0 [facility] Comment on above: Performed By: #### L [id number] ####[facility] ([facility])[address] [address] PLATELETS (10*3/UL) IN BLOOD AUTOMATED COUNT 198 10*3/uL Normal 150-400 [facility] Comment on above: Performed By: #### L [id number] ####[facility] ([facility])[address] [address] RBC (Bld) [#/Vol] 5.20 10*6/uL Normal 4.20-5.70 [facility] Comment on above: Performed By: #### L [id number] ####[facility] ([facility])[address] [address] WBC (Bld) [#/Vol] 6.54 10*3/uL Normal 4.00-10.60 [facility] Comment on above: Performed By: #### L [id number] ####[facility] ([facility])[address] [address] CONSULTon 11-25-[address] [facility] Documentationon 11-25-2022 Documentation [id number] Lakia Rodriguez 1950 M Date Provider Department Center 11/25/[id number] [facility] [place] No family history [facility] file Normal [facility] HEPATIC FUNCTION PANELon Albumin [Mass/Vol] 4.0 g/dL Normal 3.5-5.7 [facility] Comment on above: Performed By: #### L [id number] ####[facility] ([facility])[address] [address] ALP [Catalytic activity/Vol] 88 U/L Normal 34-104 [facility] Comment on above: Performed By: #### L [id number] ####[facility] ([facility])[address] [address] ALT [Catalytic activity/Vol] 26 U/L Normal 7-52 [facility] Comment on above: Performed By: #### L [id number] ####[facility] ([facility])[address] [place] [address] AST [Catalytic activity/Vol] 18 U/L Normal 13-39 [facility] Comment on above: Performed By: #### L [id number] ####[facility] ([facility])[address] [place], [place] [address] Bilirubin [Mass/Vol] 0.6 mg/dL Normal 0.3-1.0 [facility] Comment on above: Performed By: #### L [id number] ####[facility] ([facility])[address] [place] [address] Magnesium [Mass/Vol] 0.2 mg/dL Normal 0-0.2 [facility] Comment on above: Performed By: #### L [id number] ####[facility] ([facility])[address] [place], [place] [address] Protein [Mass/Vol] 6.4 g/dL Normal 6.0-8.3 [facility] Comment on above: Performed By: #### L [id number] ####[facility] ([facility])[address] [place] [address] HPon 11-25-[address] [facility] HP Normal [facility] MAGNESIUMon 11-25-2022 Magnesium [Mass/Vol] 1.7 mg/dL Low 1.9-2.7 [facility] Comment on above: Performed By: #### L [id number] ####[facility] ([facility])[address] [place] [address] PHOSPHORUSon 11-25-2022 Magnesium [Mass/Vol] 3.2 mg/dL Normal 2.5-5.[address] [facility] Comment on above: Performed By: #### L [id number] ####[facility] ([facility])[address] [place] [address] PLATELET COUNTon 11-25-2022 PLATELETS (10*3/UL) IN BLOOD AUTOMATED COUNT 204 10*3/uL Normal 150-400 [facility] Comment on above: Performed By: #### L [id number] ####[facility] ([facility])[address] [place] [address] POCT GLUCOSE METER UNSOLICIT ED RESULTSon 11-25-2022 Glucose [Mass/Vol] 194 mg/dL High 70-105 [facility] Comment on above: Order Comment: Waive d Testing in the ED is performed under the ED CLIA certificate #[id number]. Result Comment: [email or web address] Performed By: #### L [id number] ####[facility] [facility] ([facility])[address] [place] [address] Glucose [Mass/Vol] 193 mg/dL High 70-105 [facility] Comment on above: Order Comment: Waive d Testing in the ED is performed under the ED CLIA certificate #[id number]. Result Comment: awat [email or web address] Performed By: #### L [id number] ####[facility] ([facility])[address] [place] [address] Glucose [Mass/Vol] 188 mg/dL High 70-105 [facility] Comment on above: Order Comment: Waive d Testing in the ED is performed under the ED CLIA certificate #[id number]. Result Comment: awat [email or web address] Performed By: #### L [id number] ####[facility] ([facility])[address] [place] [address] Glucose [Mass/Vol] 178 mg/dL High 70-105 [facility] Comment on above: Order Comment: Waive d Testing in the ED is performed under the ED CLIA certificate #[id number]. Result Comment: [email or web address] [email or web address] Performed By: #### L [id number] ####[facility] ([facility])[address] [place] [address] POTASSIUM, WHOLE BLOODon Potassium [Moles/Vol] 3.9 mmol/L Normal 3.5-5.1 [facility] Comment on above: Performed By: #### P OTASSIUM, WHOLE BLOOD ####[facility] [id number] [place] [address] [place] PROTIME-INRon 11-25-2022 INR IN PPP BY COAGULATION ASSAY 1.74 High 0.90-1.10 [facility] Comment on above: Result Comment: ACCC [...] CHEST 1995;108:231S-246S. Performed By: #### L [id number] ####[facility] ([facility])[address] [place] [address] PROTHROMBIN TIME (PT) IN PPP BY COAGULATION ASSAY 20.4 Seconds High 12.3-14.8 [facility] Comment on above: Performed By: #### L [id number] ####[facility] [place] [facility] [place] [address] SODIUM, WHOLE BLOODon 2022 SODIUM, WHOLE BLOOD 132 Low 136-145 [facility] Comment on above: Performed By: #### S ODIUM, WHOLE BLOOD ####[facility] [id number] [place] [address] [place] TROPONIN Ion 11-25-2022 Troponin I.cardiac [Mass/Vol] 0.03 ng/mL Normal 0.00-0.04 [facility] Comment on above: Performed By: #### L [id number] ####[facility] ([facility])[address] [place] [address] Troponin I.cardiac [Mass/Vol] 0.01 ng/mL Normal 0.00-0.04 [facility] Comment on above: Performed By: #### L [id number] ####[facility] ([facility])[address] [place] [address] CHEMISTRYOrdered By: Lab ROP User on 10-02-2022 INR Coag (Bld) [Relative time] 2.1 {INR} High 0.7 - 1.2 [facility] POC Subsection POC Device SN [id number] Invalid Interpretation Code [facility] POC Subsection POC Username IVANA HYDEN Invalid Interpretation Code [facility] POC Subsection POCT PT 23.2 s High 8.0 - 15.0 second(s) [facility] POC Subsection Sodium [Moles/Vol] 495733172 mmol/L Invalid Interpretation Code [facility] POC Subsection COAGULATIONOrdered By: Elenita Hyde on 10-02-2022 INR Coag (Bld) [Relative time] 2.1 {INR} High 0.7 - 1.2 [facility] POCT PT 23.2 s High 8 - 15 second(s) [facility] POCT PT/INRon 10-02-2022 POCT INR 2.1 High .7-1.2 [facility] Comment on above: Performed By: #### 2 [id number] ####[facility] [address] [place] [address] POCT PT 23.2 second(s) High 8.0-15.0 [facility] Comment on above: Performed By: #### 2 [id number] ####[facility] [address] [place] [address] CHEMISTRYOrdered By: Lab ROP User on 08-21-2022 POC Device SN [id number] Invalid Interpretation Code [facility] POC Subsection POC Username YOSEF HAINES Invalid Interpretation Code [facility] POC Subsection Sodium [Moles/Vol] 790301985 mmol/L Invalid Interpretation Code [facility] POC Subsection COAGULATIONOrdered By: Ebenezer Haines on 08-21-2022 INR Coag (Bld) [Relative time] 2.1 {INR} High 0.7 - 1.2 [facility] POCT PT 23.3 s High 8 - 15 second(s) [facility] POCT PT/INRon 08-21-2022 POCT INR 2.1 High .7-1.2 [facility] Comment on above: Performed By: #### 2 [id number] ####[facility] [address] [place] [address] POCT PT 23.3 second(s) High 8.0-15.0 [facility] Comment on above: Performed By: #### 2 [id number] ####[facility] [address] [place] [address] Progress Note-Physicianon Progress Note-Physician Patient: LKAIA RODRIGUEZ Age: 71 years Sex: Male : [...] stroke: no 4. Serious co-morbid conditions (recent ME, anemia with Hct <30%, CRI with SCr [...] results, # 90 tab(s), Refills(s) 0, Pharmacy: [facility]/pharmacy #[id number], 167.6, cm, 01/02/19 13:46:00 EST, Height/Length Measured, 95.8, kg, 01/02/19 13:46:00 EST, Weight Measured Eliquis 2.5 mg oral tablet: 2.5 mg = 1 tab(s), Oral, BID, # 60 tab(s), Refills(s) 5, Pharmacy: [facility]/pharmacy #[id number] Metamucil 525 mg oral capsule: 2,625 mg = 5 cap(s), Oral, Daily, X 90 day(s), # 450 cap(s), Refills(s) 3, Pharmacy: [facility]/pharmacy #[id number], 167.6, cm, 06/27/22 8:28:00 EDT, Height/Length Dosing, 94.9, kg, 06/27/22 8:28:00 EDT, Weight Dosing albuterol HFA 90 mcg/inh MDI: 2 puff(s), Inhalation, QID for wheezing, 6.7 gram, Refill(s) 0, [facility]/pharmacy #6127 predniSONE 10 mg Tab: See Instructions, Oral 6 tabs for 1 day,5 tabs for 1 day,4 tabs for 1 day,3 tabs for 1 day,2 tabs for 1 day,1 tab for 1 day, # 21 tab(s), Refills(s) 0, Pharmacy: [facility]/pharmacy #[id number] Documented Medications Documented Immodium A-D [...] list: All Problems Bloating / SNOMED CT 558316015 / Confirmed Constipation / SNOMED CT 21821666 / Confirmed Diverticulosis / SNOMED CT 5298084867 / Confirmed Acid reflux / SNOMED CT 191594949 / Confirmed Hemorrhoids / SNOMED CT 637417563 / Confirmed History of rectal cancer / SNOMED CT 0725421648 / Confirmed History of colon polyps / SNOMED CT 2175248162 / Confirmed Hypercoagulable state / SNOMED CT 822500569 / Confir (more content not included)... Normal [facility] Comment on above: Result Comment: Elec tronically Signed By: Aggie Hollingsworth\.pavan\Date and Time Signed: 08/21/22 08:26 EDT CHEMISTRYOrdered By: Lab ROP User on 07-10-2022 POC Device SN [id number] Invalid Interpretation Code [facility] POC Subsection POC Username SHAYY CAIN Invalid Interpretation Code [facility] POC Subsection Sodium [Moles/Vol] 316396990 mmol/L Invalid Interpretation Code [facility] POC Subsection POCT PT/INRon 07-10-2022 POCT INR 2.3 High .7-1.2 [facility] Comment on above: Performed By: #### 2 [id number] ####[facility] [address] [place] [place] [address] POCT PT 24.8 second(s) High 8.0-15.0 [facility] Comment on above: Performed By: #### 2 [id number] ####[facility] [address] [place] [address] Ambulatory Visit Summaryon 0 06-27-2022 Ambulatory Visit Summary LAKIA RODRIGUEZ :1950 Visit Date:06/27/2022 Ambulatory Visit Instructions [...] Colonoscopy (10/05/2021), Colonoscopy (03/02/2017), colostomy reversal, EGD (esophagogastroduoden oscopy) gastric outlet reduction. Discharge Vitals Temperature (Temporal [...] day Constipation Duration: 90 Days Pickup at [facility]/pharmacy #6129 Unchanged albuterol (albuterol HFA 90 mcg/ inh [...] physician if questions or concerns Pharmacy Information [facility]/pharmacy #[id number]: [address] [place], [place] [id number] [phone] Allergies Ragweed (Dyspnea) penicillins (unknown) Problems Ongoing [...] It may (more content not included)... Normal [facility] Auto Diffon 06-27-2022 Basophils/100 WBC (Bld) 0.2 % Normal 0.0-2.0 [facility] Comment on above: Order Comment: Order Added by Discern Expert. Performed By: #### 2 785367, 4484982, 2383276, 98394645, 0694797 ####[facility] [address] [place] [address] Basophils/Leukocytes Auto (Bld) [Pure # fraction] 0.0 E9/L Normal 0.0-0.2 [facility] Comment on above: Order Comment: Order Added by Discern Expert. Performed By: #### 2 239439, 0711480, 1695702, 05468473, 4209303 ####[facility] [address] [place] [address] Eosinophils/100 WBC (Bld) 2.1 % Normal 0.0-8.0 [facility] Comment on above: Order Comment: Order Added by Discern Expert. Performed By: #### 2 497143, 0428373, 5510063, 30417027, 5589923 ####[address] [place] [address] Eosinophils/Leukocyte s Auto (Bld) [Pure # fraction] 0.1 E9/L Normal 0.0-0.5 [facility] Comment on above: Order Comment: Order Added by Discern Expert. Performed By: #### 2 837269, 7476861, 3787610, 88947286, 9913786 ####[address] [place] [address] Lymphocytes/100 WBC (Bld) 16.3 % Normal 14.0-50.0 [facility] Comment on above: Order Comment: Order Added by Discern Expert. Performed By: #### 2 805573, 6338251, 1054264, 22793201, 4772432 ####[address] [address] Lymphocytes/Leukocyte s Auto (Bld) [Pure # fraction] 1.0 E9/L Normal 1.0-4.0 [facility] Comment on above: Order Comment: Order Added by Discern Expert. Performed By: #### 2 245221, 6468217, 3422959, 85519730, 6826162 ####[address] [address] Monocytes/100 WBC (Bld) 9.0 % Normal 4.0-14.0 [facility] Comment on above: Order Comment: Order Added by Discern Expert. Performed By: #### 2 694386, 8905080, 2589554, 64585485, 6418278 ####[address] [address] Monocytes/Leukocytes Auto (Bld) [Pure # fraction] 0.6 E9/L Normal 0.2-1.0 [facility] Comment on above: Order Comment: Order Added by Discern Expert. Performed By: #### 2 531731, 6702709, 4789168, 23177816, 4143093 ####[address] [address] Neutrophils/100 WBC (Bld) 72.4 % Normal 36.0-75.0 [facility] Comment on above: Order Comment: Order Added by Discern Expert. Performed By: #### 2 039823, 6687457, 8820081, 50032961, 4957638 ####[address] [address] Neutrophils/Leukocyte s Auto (Bld) [Pure # fraction] 4.6 E9/L Normal 2.0-7.5 [facility] Comment on above: Order Comment: Order Added by Discern Expert. Performed By: #### 2 956416, 6771553, 6813884, 41548911, 5661574 ####[address] [place] [address] CBC w/ Auto Diffon Erythrocyte distribution width (RBC) [Ratio] 14.0 % Normal 10.9-14.2 [facility] Comment on above: Performed By: #### 2 456594, 2584340, 2065753, 65410530, 1302025 ####[address] [place] [address] Hematocrit (Bld) [Volume fraction] 46.6 % Normal 37.7-49.0 [facility] Comment on above: Performed By: #### 2 609117, 2470946, 6883823, 41192764, 1685872 ####[address] [address] Hemoglobin (Bld) [Mass/Vol] 15.3 g/dL Normal 13.5-17.5 [facility] Comment on above: Performed By: #### 2 639979, 5316708, 2294988, 41329462, 5666590 ####[address] [address] MCH (RBC) [Entitic mass] 29.2 pg Normal 27.0-34.0 [facility] Comment on above: Performed By: #### 2 549849, 1193493, 3037472, 06479568, 2538113 ####[address] [place] [address] MCHC (RBC) [Mass/Vol] 32.8 g/dL Normal 31.4-36.0 [facility] Comment on above: Performed By: #### 2 141046, 6576817, 6758029, 15222171, 5733164 ####[address] [address] MCV (RBC) [Entitic vol] 89.2 fL Normal 80.0-100.0 [facility] Comment on above: Performed By: #### 2 990771, 6242334, 1839849, 67841076, 3298578 ####[facility] [address] [place] [address] Platelet mean volume (Bld) [Entitic vol] 8.9 fL Normal 6.4-10.8 [facility] Comment on above: Performed By: #### 2 460583, 1897729, 0825559, 32827363, 2493062 ####[address] [place] [address] Platelets (Bld) [#/Vol] 197.0 E9/L Normal 150.0-500.0 [facility] Comment on above: Performed By: #### 2 801625, 5313103, 3824464, 37422475, 8562237 ####[address] [address] RBC (Bld) [#/Vol] 5.2 E12/L Normal 4.3-5.9 [facility] Comment on above: Performed By: #### 2 937466, 7871686, 1662304, 13319077, 9959305 ####[address] [address] WBC corrected for nucl RBC Auto (Bld) [#/Vol] 6.4 E9/L Normal 4.0-11.0 [facility] Comment on above: Performed By: #### 2 075103, 0874595, 6040680, 98077436, 3719927 ####[address] [place] [address] CEAon 06-27-2022 Carcinoembryonic Ag [Mass/Vol] 2.0 ng/mL Invalid Interpretation Code [facility] Comment on above: Result Comment: REFE RENCE VALUES <2.5 ng/mL (NONSMOKER) <5.0 ng/mL (SMOKER) The concentration of CEA in a given specimen determined by different manufacturers can vary due to differences in assay methods and reagent specificity. Values obtained with different assay methods cannot be used interchangeably. The methodology used to perform this test was chemiluminescence using [employer]'s Access CEA reagent. Performed By: #### 2 480798, 6771170, 9576013, 43759768, 6374573 ####[address] [place] [address] CMPon 06-27-2022 Albumin [Mass/Vol] 3.9 g/dL Normal 3.3-5.0 [facility] Comment on above: Performed By: #### 2 875510, 5916349, 1880170, 75815928, 8032435 ####[address] [place] [address] Albumin/Globulin (S) [Mass conc ratio] 1.3 Normal 1.1-2.2 [facility] Comment on above: Performed By: #### 2 811021, 8151912, 4551132, 45345914, 1224985 ####[address] [address] ALP [Catalytic activity/Vol] 94 Int._Unit/L Normal 21-98 [facility] Comment on above: Performed By: #### 2 123161, 9415023, 3949432, 87028792, 6745370 ####[address] [place] [address] ALT No additional P-5'-P [Catalytic activity/Vol] 29 Int._Unit/L Normal 6-46 [facility] Comment on above: Performed By: #### 2 616193, 3873954, 8363471, 88136605, 8213025 ####[address] [place] [address] Anion gap [Moles/Vol] 10 mmol/L Normal 6-16 [facility] Comment on above: Performed By: #### 2 301297, 0078987, 0699087, 54887477, 9352483 ####[address] [place] [address] AST [Catalytic activity/Vol] 24 Int._Unit/L Normal 5-43 [facility] Comment on above: Performed By: #### 2 071281, 8206084, 9084203, 32309984, 8786283 ####[facility] [address] [place] [address] Bilirubin [Mass/Vol] 0.6 mg/dL Normal 0.0-1.[address] [facility] Comment on above: Performed By: #### 2 276655, 8073005, 8719020, 21950782, 5563794 ####[facility] [address] [place] [address] Calcium [Mass/Vol] 9.1 mg/dL Normal 8.9-11.1 [facility] Comment on above: Performed By: #### 2 836112, 8743801, 3968984, 14575110, 5638255 ####[facility] [address] [place] [address] Chloride [Moles/Vol] 104 mmol/L Normal 101-[address] [facility] Comment on above: Performed By: #### 2 502352, 0243160, 0060488, 48492087, 9662623 ####[facility] [address] [place] [address] CO2 [Moles/Vol] 28 mmol/L Normal 21-31 [facility] Comment on above: Performed By: #### 2 458804, 3173553, 4163451, 03253028, 7317775 ####[facility] [address] [place] [address] Creatinine [Mass/Vol] 1.3 mg/dL Normal 0.5-1.3 [facility] Comment on above: Performed By: #### 2 115400, 0610559, 0988106, 78325853, 7952126 ####[facility] [address] [place] [address] Globulin (S) [Mass/Vol] 3.1 g/dL Normal 1.4-4.0 [facility] Comment on above: Performed By: #### 2 073433, 9838968, 6518736, 94312879, 6947602 ####[facility] [address] [place] [address] Glucose [Mass/Vol] 176 mg/dL Normal 55-199 [facility] Comment on above: Result Comment: If t his glucose result represents a fasting glucose, interpretation should refer to the following reference range: 55-99 mg/dL Performed By: #### 2 371511, 7494540, 4767985, 55141562, 6920225 ####[facility] [address] [place] [address] Potassium [Moles/Vol] 3.7 mmol/L Normal 3.5-5.3 [facility] Comment on above: Performed By: #### 2 700292, 8443143, 6123048, 53902987, 9316571 ####[facility] [address] [place] [address] Protein [Mass/Vol] 7.0 g/dL Normal 6.0-7.8 [facility] Comment on above: Performed By: #### 2 184406, 4249316, 5629910, 15584339, 4130047 ####[facility] [address] [place] [address] Sodium [Moles/Vol] 138 mmol/L Normal 135-145 [facility] Comment on above: Performed By: #### 2 576417, 3113393, 3507365, 07891105, 3698580 ####[facility] [address] [place] [address] Urea nitrogen [Mass/Vol] 15 mg/dL Normal 5-21 [facility] Comment on above: Performed By: #### 2 277066, 1579861, 4018316, 34924423, 7055057 ####[facility] [address] [place] [address] Urea nitrogen/Creatinine [Mass ratio] 12 No Units Normal 10-20 [facility] Comment on above: Performed By: #### 2 980445, 7397119, 5768825, 03839049, 0149037 ####[facility] [address] [place] [address] Consent for Treatmenton 06-11 Consent for Treatment [id number] 305 [id number] .00CD:127 Normal [facility] Consent for Treatment [id number] 305 [id number] .00CD:127 Normal [facility] Consent for Treatment [id number] 305 [id number] .00CD:127 Normal [facility] Gastroenterology Office/Clin ic Noteon 06-27-2022 Gastroenterology [...] well nourished, in no acute distress Head: Normocephalic/atrauma tic Lungs: Normal respiratory effort and clear to [...] day(s), # 450 cap(s), Refills(s) 3, Pharmacy: [facility]/pharmacy #6177, 167.6, cm, 06/27/22 8:28:00 EDT, [...] rectal cance (more content not included)... Normal [facility] Comment on above: Result Comment: Elec tronically Signed By: Yusra Denis CNP\.br\Date and Time Signed: 06/27/22 08:50 EDT Magnesiumon 06-27-2022 Magnesium [Mass/Vol] 1.9 mg/dL Normal 1.3-2.[address] [facility] Comment on above: Performed By: #### 2 471968, 9056911 ####[facility] [address] [place] [address] Oncology Progress Noteon Oncology Progress Note Patient: [...] did have uneventful hernia repair surgery in [place]. He will be going to [place] and following up with me in June. [...] Review of Systems Constitutional: Negative. Eye: Negative. Ear/Nose/Mouth/Throat : Negative. Respiratory: Negative. Cardiovascular: Negative. Gastrointestinal: Constipation. Genitourinary: Negative, urgency. Hematology/Lymphatics : Negative. Endocrine: Polyuria. Immunologic: Negative. Musculoskeletal: Negative. [...] list: All Problems Bloating / SNOMED CT 335265985 / Confirmed Constipation / SNOMED CT 08960286 / Confirmed Diverticulosis / SNOMED CT 4647184531 / Confirmed Acid reflux / SNOMED CT 398839428 / Confirmed Hemorrhoids / SNOMED CT 475444933 / Confirmed History of rectal cancer / SNOMED CT 4200520057 / Confirmed History of colon polyps / SNOMED CT 9153781587 / Confirmed Hypercoagulable state / SNOMED CT 360840028 / Confirmed Schatzki's ring / SNOMED CT 353747669 / Confirmed Colon polyp / SNOMED CT 326630698 / Confirmed Resolved: Change in bowel habits / SNOMED CT 203371744 Resolved: At Risk For Unstable Blood Glucose Level / IMO 0536332 Problem added due to documentation that the patient has diabetes. Resolved due to patient discharge. Resolved: Colon cancer / SNOMED CT 9231114233 Resolved: DVT - Deep vein thrombosis / SNOMED CT 0319335332 Resolved: Dysphagia / SNOMED CT 40313594 Histories Past Medical History: Resolved Colon cancer (4504779598): Resolved. DVT - Deep vein thrombosis (7322953940): Resolved. Change in bowel habits (512685670): Resolved. Dysphagia (24540379): R (more content not included)... Normal [facility] Patient Educationon 06-28-19 Patient Education Gastroenterology [...] as fried or sweet foods. These include indonesian fries, hamburgers, cookies, candies, and soda. ? Drink enough fluid to keep your urine pale yellow. General instructions ? Exercise regularly or as told by your health care provider. Try to do 150 minutes of moderate exercise each week. ? Use the bathroom when you have the urge to go. Do not hold it in. ? Take hzfg-fyj-ffaycou and prescription medicines only as told by [...] keep your urine pale yellow. ? Take byvf-ain-zbshvqx and prescription medicines only as told by your health care provider. This includes any fiber supplements. This information is not intended to replace advice given to you by your health care provider. Make sure you discuss any questions you have with your health care provider. Document Revised: 12/16/2019 Document Reviewed: 12/16/2019 [employer] Patient Education ? 2022 [employer] Normal [facility] Vit B12on 06-27-2022 Cobalamin (Vitamin B12) [Mass/Vol] 338 pg/mL Normal 50-1500 [facility] Comment on above: Performed By: #### 2 799495, 4261672 ####[facility] [address] [place] [address] eGFRon 06-27-2022 GFR/1.73 sq M.predicted among non-blacks MDRD (S/P/Bld) [Vol rate/Area] 59 mL/min/1.73 m2 Normal >=59 [facility] Comment on above: Order Comment: Order added by Discern Expert. Result Comment: Window Glazier lisa kidney disease could be indicated at eGFR's of less than 60 mL/min/1.73m2. Kidney failure is indicated at less than 15 mL/min/1.73m2. Performed By: #### 2 662243, 2535724, 4656396, 02540479, 0686895 ####[facility] [address] [place] [address] POCT PT/INRon 06-01-2022 POCT INR 2.1 High .7-1.2 [facility] Comment on above: Performed By: #### 2 807358556 ####[facility] [address] [place] [address] POCT PT 23.5 second(s) High 8.0-15.0 [facility] Comment on above: Performed By: #### 2 378092623 ####[facility] [address] [place] [address] Ambulatory Visit Summaryon 0 05-17-2022 Ambulatory Visit Summary LAKIA RODRIGUEZ :1950 Visit [...] Colonoscopy (10/05/2021), Colonoscopy (03/02/2017), colostomy reversal, EGD (esophagogastroduoden oscopy) gastric outlet reduction. Discharge Vitals Temperature (Temporal Artery) 36.2 ?C Heart Rate (Peripheral) 71 Respiratory Rate 16 Blood Pressure 131/81 Height 167.6 cm Height 66 in Weight 94.8 kg Weight 208.56 lb BMI 33.75 What to do next Scheduled Follow-Up Appointments Saturday 9:30 AM EDT With: Where: [facility] Saturday 8:00 AM EDT With: Yusra Denis CNP Where: [facility] Normal [facility] Gastroenterology Office/Clin ic Noteon 05-17-2022 Gastroenterology Office/Clinic [...] well nourished, in no acute distress Head: Normocephalic/atrauma tic Lungs: Normal respiratory effort and clear to [...] day(s), # 450 cap(s), Refills(s) 0, Pharmacy: [facility]/pharmacy #6177, 167.6, cm, 05/17/22 8:01:00 EDT, [...] and an (more content not included)... Normal [facility] Comment on above: Result Comment: Elec [...] a fiber (more content not included)... Normal [facility] COAGULATIONOrdered By: Elenita Hyde on 01-09-2022 POCT INR 2.8 High 0.7 - 1.2 [facility] POCT PT 30.2 High 8 - 15 [facility] CHEMISTRYOrdered By: SYSTEM SYSTEM on [...] 1.4 mg/dL High 0.5 - 1.3 mg/dL [facility] Remisol GFR/1.73 sq M.predicted among blacks MDRD (S/P/Bld) [Vol rate/Area] mL/min/1.73 m2 Normal >=59mL/min/1 .73 m2 [facility] Chem S GFR/1.73 sq M.predicted among non-blacks MDRD (S/P/Bld) [Vol rate/Area] 50 mL/min/1.73 m2 Low >=59mL/min/1 .73 m2 [facility] Chem S Globulin (S) [Mass/Vol] 3.1 g/dL [...] 228.0 E9/L Normal 150.0 - 500.0 E9/L [facility] HemeAutoSS RBC (Bld) [#/Vol] 5.2 E12/L Normal 4.3 - 5.9 E12/L [facility] HemeAutoSS WBC corrected for nucl RBC Auto (Bld) [#/Vol] 7.7 E9/L Normal 4.0 - 11.0 E9/L [facility] HemeAutoSS Covid-19 PCR ([facility])on SARS-CoV-2 (COVID-19) RNA KELLY+probe Ql (Unsp spec) Detected Critically abnormal NOT DETECTED [facility] Comment on above: Result Comment: This test is not yet approved or cleared by the [place] FDA. When there are no FDA-approved or cleared tests available, and other criteria are met, FDA can make tests available under an emergency access mechanism called an Emergency Use Authorization (EUA). The EUA for this test is supported by the [place] of Health and Human Service's (HHS's) declaration [...] used). Performed By: #### C VDTBH #### [facility] [address] [place] [address] Dr. Kayli Perez INFLUENZA A AND B AGon 12-14 [facility] SEE BELOW Normal The [facility] Comment on above: Result Comment: Nega tive for Flu A protein angiten. Infection due to Flu A cannot be ruled out. Flu A angiten in the sample may be below the detection limit of the test. Performed By: #### I NFLUAB #### [facility] [address] [place] [address] Dr. Kay[facility] SEE BELOW Normal [facility] Comment on above: Result Comment: Nega tive for Flu B protein antigen. Infection due to Flu B cannot be ruled out. Flu B antigen in the sample may be below the detection limit of the test. Performed By: #### I NFLUAB #### [facility] [address] [address] [address] Kayli Perez INFLUENZA A AG Negative Normal NEGATIVE SEE COMMENT [facility] Comment on above: Performed By: #### I NFLUAB #### [facility] [address] [address] [address] Kayli Perez INFLUENZA B AG Negative Normal NEGATIVE SEE COMMENT The [facility] Comment on above: Performed By: #### I NFLUAB #### [facility] [address] [address] [address] Kayli Perez INTERNAL CONTROLS Within Normal Limits Normal Wi thin Normal Limits The [facility] Comment on above: Performed By: #### I NFLUAB #### [facility] [address] [address] [address] Kayli Perez CHEMISTRYOrdered By: Yosef Haines on 11-28-2021 INR POC FT 2.5 [facility] PT POC FT 30.3 s High 10.8 - 13.6 second(s) [facility] CHEMISTRYOrdered By: Parisa Hyde on 10-13-2021 INR POC FT 2.4 [facility] PT POC FT 28.9 s High 10.8 - 13.6 second(s) [facility] CHEMISTRYOrdered By: Shayy Cain on 10-03-2021 INR POC FT 2.6 [facility] PT POC FT 31.6 s High 10.8 - 13.6 second(s) [facility] CHEMISTRYOrdered By: SYSTEM SYSTEM on [...] rate/Area] mL/min/1.73 m2 Normal >=59mL/min/1 .73 m2 [facility] Chem S GFR/1.73 sq M.predicted among non-blacks MDRD (S/P/Bld) [Vol rate/Area] 60 mL/min/1.73 m2 Normal >=59mL/min/1 .73 m2 [facility] Chem S Globulin (S) [Mass/Vol] 3.0 g/dL [...] Normal 4.0 - 11.0 E9/L [facility] Progress Noteon 07-02-2019 Progress Note [address] [place] [address] Progress Note Signed:[id number] Name: LAKIA RODRIGUEZ MRUN: [id number] : 1950 Loc: 3S Age / Sex: 68/ M Adm Status: DIS Leonor Adm Date:06/03/19 Room/Bed: [facility] Date of Service 06/04/19 Subjective (ROS) Constitutional: Weakness Eyes: No Symptoms Reported ENT: No Symptoms Reported Respiratory: No Symptoms Reported Cardiovascular: No Symptoms Reported. denies: Chest Pain, Edema, Palpitations Endocrine: No Symptoms Reported Gastrointestinal: No Symptoms Reported Genitourinary: No Symptoms Reported Musculoskeletal: No Symptoms Reported Skin: Other - Wound management consult to evaluate and treat Neurological: No Symptoms Reported Psychiatric: No Symptoms Reported Hematological/Lymphat ic: No Symptoms Reported Objective (Exam) Admission Weight/BMI [...] (Auto) 12.8 % (24.0-44.0) L 06/05/19 05:34 [place] % (Auto) 7.5 % (1.7-9.3) 06/05/19 05:34 Eos % (Auto) 1.3 % (0.0-5.0) 06/05/19 05:34 Baso % (Auto) 0.3 % (0.0-1.0) 06/05/19 05:34 Neut # (Auto) 4.5 10 3/uL (1.5-6.7) 06/05/19 05:34 Lymph # (Auto) 0.7 10 3/uL (1.0-3.5) L 06/05/19 05:34 [place] # (Auto) 0.4 10 3/uL (0.2-0.8) 06/05/19 [...] 0908 CC: Fercho TORRES, Danii Pickett Normal [facility] CBC WITH AUTO DIFFon 020 Basophils (Bld) [#/Vol] 0.0 10 3/uL Normal 0.0-0.2 [facility] Comment on above: Performed By: #### P T #### [facility] - [address] [address] Basophils/100 WBC (Bld) 0.3 % Normal 0.0-1.0 [facility] Comment on above: Performed By: #### P T #### [facility] - [address] [address] Eosinophils (Bld) [#/Vol] 0.1 10 3/uL Normal 0.0-0.7 [facility] Comment on above: Performed By: #### P T #### [facility] - [address] [address] Eosinophils/100 WBC (Bld) 1.3 % Normal 0.0-5.0 [facility] Comment on above: Performed By: #### P T #### [facility] - [address] [address] Erythrocyte distribution width (RBC) [Ratio] 14.4 % High 11.5-14.0 [facility] Comment on above: Performed By: #### P T #### [facility] - [address] [address] Hematocrit (Bld) [Volume fraction] 39.2 % Normal 38.7-49.8 [facility] Comment on above: Performed By: #### P T #### [facility] - [address] [address] Hemoglobin (Bld) [Mass/Vol] 13.2 g/dL Normal 12.9-16.6 [facility] Comment on above: Performed By: #### P T #### [facility] - [address] [address] Lymphocytes (Bld) [#/Vol] 0.7 10 3/uL Low 1.0-3.5 [facility] Comment on above: Performed By: #### P T #### [address] [address] Lymphocytes/100 WBC (Bld) 12.8 % Low 24.0-44.0 [facility] Comment on above: Performed By: #### P T #### [facility] - [address] [address] MCH (RBC) [Entitic mass] 28.9 pg Normal 27.0-31.0 [facility] Comment on above: Performed By: #### P T #### [address] [address] MCHC (RBC) [Mass/Vol] 33.8 g/dL Normal 32.0-36.0 [facility] Comment on above: Performed By: #### P T #### [address] [address] MCV (RBC) [Entitic vol] 85.5 fL Normal 78.0-100.0 [facility] Comment on above: Performed By: #### P T #### [address] [address] Monocytes (Bld) [#/Vol] 0.4 10 3/uL Normal 0.2-0.8 [facility] Comment on above: Performed By: #### P T #### [address] [address] Monocytes/100 WBC (Bld) 7.5 % Normal 1.7-9.3 [facility] Comment on above: Performed By: #### P T #### [facility] [address] [place], [place] [address] Neutrophils (Bld) [#/Vol] 4.5 10 3/uL Normal 1.5-6.7 [facility] Comment on above: Performed By: #### P T #### Main [facility] - [facility] [address] [place], [place] [address] Neutrophils/100 WBC (Bld) 78.1 % High 36.0-66.0 [facility] Comment on above: Performed By: #### P T #### Main [facility] [place], [place] [address] Platelet mean volume (Bld) [Entitic vol] 7.9 fL Normal 6.0-9.5 [facility] Comment on above: Performed By: #### P T #### Main Lab - [facility] [address] [place] [address] Platelets (Bld) [#/Vol] 180 10 3/uL Normal 150-450 [facility] Comment on above: Performed By: #### P T #### Main Lab - [facility] [address] [place] [address] RBC (Bld) [#/Vol] 4.58 x10 6/uL Normal 4.38-5.71 [facility] Comment on above: Performed By: #### P T #### Main Lab - [facility] [address] [place] [address] WBC (Bld) [#/Vol] 5.8 10 3/uL Normal 4.0-10.5 [facility] Comment on above: Performed By: #### P T #### Main Lab - [facility] [place], [place] [address] COMPREHENSIVE METABOLIC PANE Sukhi 06-05-2019 Albumin [Mass/Vol] 3.1 g/dL Low 3.9-5.0 [facility] Comment on above: Performed By: #### P T #### Main Lab [facility] [place], [place] [address] Albumin/Globulin [Mass ratio] 1.2 {ratio} Normal 1.1-1.8 [facility] Comment on above: Performed By: #### P T #### Main Lab [facility] [address] [place] [address] ALP [Catalytic activity/Vol] 84 U/L Normal 43-122 [facility] Comment on above: Performed By: #### P T #### Main Lab [facility] [address] [place] [address] ALT/SGPT 48 U/L Normal 7-56 [facility] Comment on above: Performed By: #### P T #### Main Lab - [facility] [address] [place] [address] Anion gap [Moles/Vol] 8 mmol/L Low 9-18 [facility] Comment on above: Performed By: #### P T #### Main Lab - [address] [address] AST/SGOT 26 U/L Normal 14-50 [facility] Comment on above: Performed By: #### P T #### Main Lab - [address] [address] Bilirubin [Mass/Vol] 0.5 mg/dL Normal 0.2-1.3 [facility] Comment on above: Performed By: #### P T #### Main Lab - [address] [address] Calcium [Mass/Vol] 8.5 mg/dL Normal 8.4-10.2 [facility] Comment on above: Performed By: #### P T #### Main Lab - [address] [address] Chloride [Moles/Vol] 106 mmol/L Normal 98-107 [facility] Comment on above: Performed By: #### P T #### Main Lab [facility] [address] [place] [address] CO2 [Moles/Vol] 27 mmol/L Normal 22-31 [facility] Comment on above: Performed By: #### P T #### Main Lab - [address] [address] Creatinine [Mass/Vol] 1.30 mg/dL Normal 0.80-1.30 [facility] Comment on above: Performed By: #### P T #### [facility] - [address] [address] ESTIMATED CREAT CLEARANCE 52.26 Normal [facility] Comment on above: Result Comment: COCK CROFT-GAULT FORMULA 1973 Performed By: #### P T #### [facility] - [address] [address] ESTIMATED GLOMERULAR FILT RATE 55.000 mL/min Normal [facility] Comment on above: Performed By: #### P T #### [facility] - [address] [address] Globulin (S) [Mass/Vol] 2.6 g/dL Normal [facility] Comment on above: Performed By: #### P T #### [facility] - [address] [address] Glucose [Mass/Vol] 108 mg/dL High 70-99 [facility] Comment on above: Result Comment: The glucose range is based on recommendations from the [place] [employer] for fasting blood glucose range. Performed By: #### P T #### [facility] - [address] [address] Potassium [Moles/Vol] 3.7 mmol/L Normal 3.6-5.0 [facility] Comment on above: Performed By: #### P T #### [facility] - [address] [address] Protein [Mass/Vol] 5.7 g/dL Low 6.3-8.2 [facility] Comment on above: Performed By: #### P T #### [facility] - [address] [address] Sodium [Moles/Vol] 137 mmol/L Normal 137-145 [facility] Comment on above: Performed By: #### P T #### [facility] - [address] [address] Urea nitrogen [Mass/Vol] 15 mg/dL Normal 7-21 [facility] Comment on above: Performed By: #### P T #### [facility] - [address] [address] Urea nitrogen/Creatinine [Mass ratio] 11.5 Ratio Normal 5.0-42.0 [facility] Comment on above: Performed By: #### P T #### [facility] - [address] [address] Age - Reported 68 Years Normal Damione rn [facility] Comment on above: Performed By: #### P T #### [facility] - [address] [address] PT WITH INRon 06-05-2019 INR Coag (PPP) [Relative time] 3.1 {INR} Normal [facility] Comment on above: Result Comment: ISAAK MMENDED RANGES FOR INR: Therapeutic range for standard therapy INR: 2.0-3.0 Therapeutic range for high dose therapy INR: 2.5-3.5 Performed By: #### P T #### [facility] - [address] [address] PT Coag (PPP) [Time] 32.2 s High 12.0-14.5 [facility] Comment on above: Performed By: #### P T #### [facility] - [address] [address] URINE CULTUREon 06-05-2019 Bacteria identified Cx Nom (U) @06/03/193: URINE CULT added. RFLXG = URINE CULT. @[place] [id number]. URINE CULTURE: NO GROWTH AT 48 HOURS Normal [facility] Comment on above: Performed By: #### P T #### [facility] - [address] [address] CBC WITH AUTO DIFFon 020 Basophils (Bld) [#/Vol] 0.0 10 3/uL Normal 0.0-0.2 [facility] Comment on above: Performed By: #### P T, CMP, CBC #### [facility] - [address] [address] Basophils/100 WBC (Bld) 0.2 % Normal 0.0-1.0 [facility] Comment on above: Performed By: #### P T, CMP, CBC #### [facility] - [address] [address] Eosinophils (Bld) [#/Vol] 0.0 10 3/uL Normal 0.0-0.7 [facility] Comment on above: Performed By: #### P T, CMP, CBC #### Main Lab - [address] [address] Eosinophils/100 WBC (Bld) 0.3 % Normal 0.0-5.0 [facility] Comment on above: Performed By: #### P T, CMP, CBC #### Main Lab - [address] [address] Erythrocyte distribution width (RBC) [Ratio] 14.4 % High 11.5-14.0 [facility] Comment on above: Performed By: #### P T, CMP, CBC #### Main Lab - [address] [address] Hematocrit (Bld) [Volume fraction] 40.5 % Normal 38.7-49.8 [facility] Comment on above: Performed By: #### P T, CMP, CBC #### Main Lab - [address] [address] Hemoglobin (Bld) [Mass/Vol] 13.9 g/dL Normal 12.9-16.6 [facility] Comment on above: Performed By: #### P T, CMP, CBC #### [facility] - [address] [address] Lymphocytes (Bld) [#/Vol] 0.6 10 3/uL Low 1.0-3.5 [facility] Comment on above: Performed By: #### P T, CMP, CBC #### [facility] - [address] [address] Lymphocytes/100 WBC (Bld) 8.3 % Low 24.0-44.0 [facility] Comment on above: Performed By: #### P T, CMP, CBC #### Main Lab - [address] [address] MCH (RBC) [Entitic mass] 29.2 pg Normal 27.0-31.0 [facility] Comment on above: Performed By: #### P T, CMP, CBC #### Main Lab - [facility] [address] [place] [address] MCHC (RBC) [Mass/Vol] 34.2 g/dL Normal 32.0-36.0 [facility] Comment on above: Performed By: #### P T, CMP, CBC #### Main Lab - [address] [address] MCV (RBC) [Entitic vol] 85.2 fL Normal 78.0-100.0 [facility] Comment on above: Performed By: #### P T, CMP, CBC #### Main Lab - [address] [address] Monocytes (Bld) [#/Vol] 0.4 10 3/uL Normal 0.2-0.8 [facility] Comment on above: Performed By: #### P T, CMP, CBC #### Main Lab - [address] [address] Monocytes/100 WBC (Bld) 5.4 % Normal 1.7-9.3 [facility] Comment on above: Performed By: #### P T, CMP, CBC #### Main Lab - [address] [address] Neutrophils (Bld) [#/Vol] 5.8 10 3/uL Normal 1.5-6.7 [facility] Comment on above: Performed By: #### P T, CMP, CBC #### Main Lab - [address] [address] Neutrophils/100 WBC (Bld) 85.8 % High 36.0-66.0 [facility] Comment on above: Performed By: #### P T, CMP, CBC #### Main Lab - [facility] [address] [place] [address] Platelet mean volume (Bld) [Entitic vol] 8.1 fL Normal 6.0-9.5 [facility] Comment on above: Performed By: #### P T, CMP, CBC #### Main [facility] - [facility] [address] [place] [address] Platelets (Bld) [#/Vol] 190 10 3/uL Normal 150-450 [facility] Comment on above: Performed By: #### P T, CMP, CBC #### Main [facility] - [facility] [address] [place] [address] RBC (Bld) [#/Vol] 4.75 x10 6/uL Normal 4.38-5.71 [facility] Comment on above: Performed By: #### P T, CMP, CBC #### Main Lab - [facility] [address] [place], [place] [address] WBC (Bld) [#/Vol] 6.7 10 3/uL Normal 4.0-10.5 [facility] Comment on above: Performed By: #### P T, CMP, CBC #### Main Lab - [facility] [address] [place], [place] [address] COMPREHENSIVE METABOLIC PANE Sukhi 06-04-2019 Albumin [Mass/Vol] 3.4 g/dL Low 3.9-5.0 [facility] Comment on above: Performed By: #### P T, CMP, CBC #### Main Lab - [facility] [address] [place] [address] Albumin/Globulin [Mass ratio] 1.2 {ratio} Normal 1.1-1.8 [facility] Comment on above: Performed By: #### P T, CMP, CBC #### Main Lab - [facility] [address] [place] [address] ALP [Catalytic activity/Vol] 92 U/L Normal 43-122 [facility] Comment on above: Performed By: #### P T, CMP, CBC #### Main [facility] - [facility] [address] [place] [address] ALT/SGPT 62 U/L High 7-56 [facility] Comment on above: Performed By: #### P T, CMP, CBC #### Main [facility] - [facility] [address] [place] [address] Anion gap [Moles/Vol] 8 mmol/L Low 9-18 [facility] Comment on above: Performed By: #### P T, CMP, CBC #### Main [facility] - [facility] [address] [place] [address] AST/SGOT 36 U/L Normal 14-50 [facility] Comment on above: Result Comment: Spec imen Slightly Hemolyzed. Performed By: #### P T, CMP, CBC #### Main Lab - [facility] [address] [place], [place] [address] Bilirubin [Mass/Vol] 0.5 mg/dL Normal 0.2-1.3 [facility] Comment on above: Performed By: #### P T, CMP, CBC #### Main Lab - [facility] [address] [place], [place] [address] Calcium [Mass/Vol] 8.9 mg/dL Normal 8.4-10.2 [facility] Comment on above: Performed By: #### P T, CMP, CBC #### [facility] - [facility] [address] [place] [address] Chloride [Moles/Vol] 109 mmol/L High 98-107 [facility] Comment on above: Result Comment: Inco nsistent with previous results. Performed By: #### P T, CMP, CBC #### [facility] [address] [place] [address] CO2 [Moles/Vol] 27 mmol/L Normal 22-31 [facility] Comment on above: Performed By: #### P T, CMP, CBC #### Main [facility] [address] [place] [address] Creatinine [Mass/Vol] 1.28 mg/dL Normal 0.80-1.30 [facility] Comment on above: Performed By: #### P T, CMP, CBC #### Main [facility] [address] [place] [address] ESTIMATED CREAT CLEARANCE 53.08 [facility] Comment on above: Result Comment: COCK CROFT-GAULT FORMULA 1973 Performed By: #### P T, CMP, CBC #### Main [facility] [address] [place] [address] ESTIMATED GLOMERULAR FILT RATE 56.000 mL/min [facility] Comment on above: Performed By: #### P T, CMP, CBC #### [facility] [address] [place] [address] Globulin (S) [Mass/Vol] 2.9 g/dL [facility] Comment on above: Performed By: #### P T, CMP, CBC #### Main [facility] [address] [place] [address] Glucose [Mass/Vol] 165 mg/dL High 70-99 [facility] Comment on above: Result Comment: The glucose range is based on recommendations from the [place] [employer] for fasting blood glucose range. Performed By: #### P T, CMP, CBC #### Main Lab - [facility] [address] [place], [place] [address] Potassium [Moles/Vol] 3.7 mmol/L Normal 3.6-5.0 [facility] Comment on above: Result Comment: Spec imen Slightly Hemolyzed. Performed By: #### P T, CMP, CBC #### Main Lab - [facility] [address] [place], [place] [address] Protein [Mass/Vol] 6.3 g/dL Normal 6.3-8.2 [facility] Comment on above: Performed By: #### P T, CMP, CBC #### Main [facility] - [facility] [address] [place] [address] Sodium [Moles/Vol] 140 mmol/L Normal 137-145 [facility] Comment on above: Performed By: #### P T, CMP, CBC #### [facility] [address] [place] [address] Urea nitrogen [Mass/Vol] 17 mg/dL Normal 7-21 [facility] Comment on above: Performed By: #### P T, CMP, CBC #### Main Lab - [facility] [place], [place] [address] Urea nitrogen/Creatinine [Mass ratio] 13.3 Ratio Normal 5.0-42.0 [facility] Comment on above: Performed By: #### P T, CMP, CBC #### Main Lab - [facility] [place], [place] [address] Age - Reported 68 Years Normal [facility] Comment on above: Performed By: #### P T, CMP, CBC #### Main Lab - [facility] [place], [place] [address] CREATINE KINASE MBon 020 CK.MB [Mass/Vol] 4.0 ng/mL High 0.0-3.7 [facility] Comment on above: Performed By: #### C KMB 1 #### Main Lab - [facility] [address] [place] [address] CK.MB [Mass/Vol] 3.8 ng/mL High 0.0-3.7 [facility] Comment on above: Performed By: #### C KMB 1 #### Main [facility] - [facility] [address] [place] [address] CK.MB [Mass/Vol] 4.4 ng/mL High 0.0-3.7 [facility] Comment on above: Performed By: #### P T #### Main Lab [facility] [address] [place] [address] ABDOMEN PELVIS W/O 05-13 CT ABDOMEN PELVIS W/O [facility] [address] [place] [address] Diagnostic Imaging Report : [id number] Signed Name: LAKIA RODRIGUEZ MRUN: [id number] : 1950 Loc: 3S Age / Sex: 68 / M ADM Status: ADM Leonor ADM Date: 06/03/19 Room/Bed: [facility] Ordering Physician: Vick ENCISO, [facility] Procedure: CT ABDOMEN PELVIS W/O Order Number(s): [id number] Ordered Date: 06/04/19 Ordered Time: 0006 EXAMINATION: [...] No pelvic mass, adenopathy, or fluid collection. Peritoneum/Retroperit oneum: Midline fat containing ventral hernia with 6.5 [...] Signed Date/Time: 06/04/19225 Transcribed Date/Time: 06/04/19221 Normal [facility] DRUG SCREEN,URINEon 06-04-19 AMPHETAMINE SCREEN,URINE Negative Normal NEGATIVE [facility] Comment on above: Order Comment: @ COL L DATE was changed from 06/03/19 to 06/04/19 @ by [id number]. Old specimen was [id number]. Result Comment: Nega tive cut-off concentration <1000 ng/mL Performed By: #### U DS #### Main Lab [facility] [address] [place] [address] BARBITURATE SCREEN, URINE Negative Normal NEGATIVE [facility] Comment on above: Order Comment: @ COL L DATE was changed from 06/03/19 to 06/04/19 @ by [id number]. Old specimen was [id number]. Result Comment: Nega tive cut-off concentration <200 ng/mL Performed By: #### U DS #### [facility] [address] [place] [address] BENZODIAZEPINES SCREEN,URINE Negative Normal NEGATIVE [facility] Comment on above: Order Comment: @ COL L DATE was changed from 06/03/19 to 06/04/19 @ by [id number]. Old specimen was [id number]. Result Comment: Nega tive cut-off concentration <200 ng/mL Performed By: #### U DS #### Main [facility] [address] [place] [address] BUPRENORPHINE SCREEN,URINE Negative Normal NEGATIVE [facility] Comment on above: Order Comment: @ COL L DATE was changed from 06/03/19 to 06/04/19 @ by [id number]. Old specimen was [id number]. Result Comment: Nega tive cut-off concentration <10 ng/mL Performed By: #### U DS #### [facility] [place] [id number] CANNABINOID SCREEN,URINE Negative Normal NEGATIVE [facility] Comment on above: Order Comment: @ COL L DATE was changed from 06/03/19 to 06/04/19 @ by [id number]. Old specimen was [id number]. Result Comment: Nega tive cut-off concentration <50 ng/mL Performed By: #### U DS #### [facility] [place] [address] [id number] COCAINE SCREEN,URINE Negative Normal NEGATIVE [facility] Comment on above: Order Comment: @ COL L DATE was changed from 06/03/19 to 06/04/19 @ by [id number]. Old specimen was [id number]. Result Comment: Nega tive cut-off concentration <300 ng/mL Performed By: #### U DS #### [facility] - [place] [id number] METHADONE SCREEN,URINE Negative Normal NEGATIVE [facility] Comment on above: Order Comment: @ COL L DATE was changed from 06/03/19 to 06/04/19 @ by [id number]. Old specimen was [id number]. Result Comment: Nega tive cut-off concentration <300 ng/mL Performed By: #### U DS #### [facility] - [place] [address] OPIATE SCREEN,URINE Negative Normal NEGATIVE [facility] Comment on above: Order Comment: @ COL L DATE was changed from 06/03/19 to 06/04/19 @ by [id number]. Old specimen was [id number]. Result Comment: Nega tive cut-off concentration <300 ng/mL Performed By: #### U DS #### [facility] [place] [id number] OXYCODONE SCREEN,URINE Negative Normal NEGATIVE [facility] Comment on above: Order Comment: @ COL L DATE was changed from 06/03/19 to 06/04/19 @ by [id number]. Old specimen was [id number]. Result Comment: Nega tive cut-off concentration <300 ng/mL Performed By: #### U DS #### Main Lab - [facility] [address] [place] [address] Street [place], [place] [address] PHENCYCLIDINE SCREEN,URINE Negative Normal NEGATIVE [facility] Comment on above: Order Comment: @ COL L DATE was changed from 06/03/19 to 06/04/19 @ by [id number]. Old specimen was [id number]. Result Comment: Nega tive cut-off concentration <25 ng/mL Performed By: #### U DS #### [facility] - [address] [address] NITRITE,URINE Negative Normal NEGATIVE [facility] Comment on above: Order Comment: @ COL L DATE was changed from 06/03/19 to 06/04/19 @ by [id number]. Old specimen was [id number]. Performed By: #### U DS #### [facility] - [address] [address] pH (U) 6.0 [pH] Normal 5.0-8.0 [facility] Comment on above: Order Comment: @ COL L DATE was changed from 06/03/19 to 06/04/19 @ by [id number]. Old specimen was [id number]. Performed By: #### U DS #### [facility] - [address] [address] SPECIFIC GRAVITY,URINE 1.027 SP.GR. Normal <1.029 [facility] Comment on above: Order Comment: @ COL L DATE was changed from 06/03/19 to 06/04/19 @ by [id number]. Old specimen was [id number]. Performed By: #### U DS #### [facility] - [address] [address] ECHOCARDIOGRAM COMPLETEon ECHOCARDIOGRAM COMPLETE [facility] [address] [place] [address] Cardiovascular Imaging Report : [id number] Signed Name: LAKIA RODRIGUEZ MRUN: [id number] : 1950 Loc: 3S Age / Sex: 68 / M ADM Status: ADM Leonor ADM Date: 06/03/19 Room/Bed: [facility] Ordering Physician: Vick ENCISO, [facility] Procedure: ECHOCARDIOGRAM COMPLETE Order Number(s): [id number] Ordered Date: 06/04/19 Ordered Time: 0700 SEOSYNCVPROD [id number] Transthoracic Echo Report Ht (in): 67 Wt [...] 4.4 cm RV Mid 3.7 cm RV [place] to Base 8.6 cm Ascending Aorta Diameter 3.2 cm M-MODE Aortic Root Diameter MM 3.6 cm LA Systolic Diameter MM 4.2 cm LA Ao Ratio MM 1.2 DOPPLER AV Peak Velocity 1.3 m/s AV Peak Gradient 6.6 mmHg LVOT Peak Velocity 0.8 m/s LVOT Peak Gradient 2.5 mmHg LVOT Mean Gradient 1.3 mmHg LVOT Velocity Time Integral 16.7 cm MV Deceleration [place] 1.3 m/s? MV Pressure Half Time 83.2 [...] Signed Date/Time: 06/04/19 1132 Transcribed Date/Time: 06/04/19 8966 Normal [facility] History & Physicalon 020 History & Physical [address] [place] [address] History Physical Signed with Addenda:[id number] Name: LAKIA RODRIGUEZ MRUN: [id number] : 1950 Loc: 3S Age / Sex: 68/ M Adm Status: ADM Leonor Adm Date:06/03/19 Room/Bed: [facility] ADDENDUM--- ------- Bilateral lower extremities have chronic venous stasis changes and trace edema, small open wound on right leg. 06/04/19 0048 CC: [facility] Date of Service 06/03/19 History of Present Illness Information source:: Patient Chief Complaint: I passed out This is a pleasant 68-year-old male with a history of diabetes mellitus and colon cancer was brought into the emergency room by the fitness supervisor for further evaluation and management of a syncopal event. Patient was in his usual state of health until this afternoon. 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 He was taking the exit to get to the Highway around 4:30 PM after exchanging the trailer with his colleague. He felt like his truck is spinning around. The next thing he knew was fitness supervisor were knocking on the door. He was found slumped over on the steering wheel. He did not experience any chest pain, palpitations, focal weakness, vision changes or diaphoresis prior to the episode. No prior similar symptoms. No reports of seizure-like activity. No reports of bladder or bowel incontinence. No history of ME, CVA or seizures. He had his breakfast [...] General Reproductive History: Negative Past male reproductive surgeries/treatments: : Negative Psychiatric: Negative - Family History Family [...] (Auto) 12.0 % (24.0-44.0) L 06/03/19 17:36 [place] % (Auto) 6.0 % (1.7-9.3) 06/03/19 17:36 Eos % (Auto) 0.6 % (0.0-5.0) 06/03/19 17:36 Baso % (Auto) 0.3 % (0.0-1.0) 06/03/19 17:36 Neut # (Auto) 5.7 10 3/uL (1.5-6.7) 06/03/19 17:36 Lymph # (Auto) 0.8 10 3/uL (1.0-3.5) L 06/03/19 17:36 [place] # (Auto) 0.4 10 3/uL (0.2-0.8) 06/03/19 [...] actually had an appointment with surgeon at [facility] for rectal hernia repair about [...] Medical Status: Chronic 06/04/1944 CC: Vick ENCISO, [facility] Normal [facility] LACTATE FOLLOW UPon 06-04-19 LACTATE FOLLOW UP 1.0 mmol/L Normal 0.7-2.4 [facility] Comment on above: Order Comment: @05/13: LACTATE 2 added. RFLXG = LACTICRFX. Performed By: #### L ACTATE 2 #### Main Lab - [facility] [address] [place] [address] PT WITH INRon 06-04-2019 INR Coag (PPP) [Relative time] 3.0 {INR} Normal [facility] Comment on above: Order Comment: @ Pre viously cancelled by [id number] on 06/04/19 at 0924. @ Uncancelled by [id number] on 06/04/19 at 0931. @ Specimen Rejected Previously Y. @ Previous Rejection Reason DUPLICATE - Duplicate orders. Result Comment: ISAAK MMENDED RANGES FOR INR: Therapeutic range for standard therapy INR: 2.0-3.0 Therapeutic range for high dose therapy INR: 2.5-3.5 Performed By: #### P T #### Main Lab - [facility] [address] [place] [address] PT Coag (PPP) [Time] 31.2 s High 12.0-14.5 [facility] Comment on above: Order Comment: @ Pre viously cancelled by [id number] on 06/04/19 at 0924. @ Uncancelled by [id number] on 06/04/19 at 0931. @ Specimen Rejected Previously Y. @ Previous Rejection Reason DUPLICATE - Duplicate orders. Performed By: #### P T #### Main Lab - [facility] [address] [place] [address] INR Coag (PPP) [Relative time] 3.1 {INR} Normal [facility] Comment on above: Result Comment: ISAAK MMENDED RANGES FOR INR: Therapeutic range for standard therapy INR: 2.0-3.0 Therapeutic range for high dose therapy INR: 2.5-3.5 Performed By: #### P T, CMP, CBC #### Main Lab - [facility] [address] [place] [address] PT Coag (PPP) [Time] 32.1 s High 12.0-14.5 [facility] Comment on above: Performed By: #### P T, CMP, CBC #### Main Lab - [facility] [address] [place] [address] TROPONIN Ion 06-04-2019 Troponin I.cardiac [Mass/Vol] 0.06 ng/mL High 0.0-0.03 [facility] Comment on above: Result Comment: Refe rence Interval < or = 0.03 ng/mL Clinical Correlation Needed 0.03 - 0.11 ng/mL AMI Cutoff, Presumptive = or > 0.12 ng/mL Performed By: #### T ROP 1 #### Main Lab - [facility] [address] [place] [address] Troponin I.cardiac [Mass/Vol] 0.06 ng/mL High 0.0-0.03 [facility] Comment on above: Result Comment: Refe rence Interval < or = 0.03 ng/mL Clinical Correlation Needed 0.03 - 0.11 ng/mL AMI Cutoff, Presumptive = or > 0.12 ng/mL Performed By: #### P T #### Main Lab - [facility] [address] [place] [address] US CAROTID DUPLEX BILATERALo n 06-04-2019 CAROTID DUPLEX BILATERAL [facility] [address] [place] [address] Diagnostic Imaging Report : [id number] Signed Name: LAKIA RODRIGUEZ MRUN: [id number] : 1950 Loc: 3S Age / Sex: 68 / M ADM Status: ADM Leonor ADM Date: 06/03/19 Room/Bed: [facility] Ordering Physician: Modesto Hickman MD Procedure: US CAROTID DUPLEX BILATERAL Order Number(s): [id number] Ordered Date: 06/04/19 Ordered Time: 0700 EXAMINATION: [...] 06/04/19 1142 Transcribed Date/Time: 06/04/19 1138 Normal [facility] Waveform Imaging Reporton Waveform Imaging Report [facility] [address] [place] [address] Waveform Imaging Report : [id number] Signed Name: LAKIA RODRIGUEZ MRUN: [id number] : 1950 Loc: 3S Age / Sex: 68 / M ADM Status: ADM Leonor ADM Date: 06/03/19 Room/Bed: [facility] Ordering Physician: Modesto Hickman MD Procedure: EKG Order Number(s): [id number] Ordered Date: 06/04/19 Ordered Time: 0600 Test Date: 2019-06-04 03:50:57 Pat Name: LAKIA RODRIGUEZ Department: [address] [place] [address] Room: [facility] Gender: M 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 Author Start: 02-11-2023 Advance Directive Discussion Advance Directive Discussion [facility] Start: 02-11-2023 Depression Assessment Depression Ass essment [facility] Start: 10-12-2022 Covid-19 Vaccine () Covid-19 Vaccine () [facility] Start: 10-12-2022 Influenza vaccination Influenza Vacc ine (#1) [facility] Start: 08-19-2021 Creatinine measurement Serum Creatin ine [facility] Start: 09-15-2020 Screening for malign ant neoplasm of colon [facility] Start: 12-28-2018 Hemoglobin A1c measurement HbA1C [facility] Start: 01-29-2017 Pneumococcal Vaccine : 65+ (2 of 2 - PCV) Pneumococcal Vaccine: 65+ (2 of 2 - PCV) [facility] Start: 2012 RSV Vaccine (1 - 1-d ose 60+ series) RSV Vaccine (1 - 1-dose 60+ series) [facility] Start: 2002 Shingrix Vaccine (1 of 2) Shingrix V accine (1 of 2) [facility] Start: 1997 Screening for malign ant neoplasm of colon [facility] Start: 11-05-1971 Urine microalbumin profile DTaP,Tdap,Td Vaccine (1 - Tdap) [facility] Start: 1970 Annual PCP Team Window Glazier lisa Disease Visit Annual PCP Team Chronic Disease Visit [facility] Start: 1970 BP Controlled (<130/80) BP Controlle d (<130/80) [facility] Start: 1970 Hepatitis B surface antibody level LDL Cholesterol [facility] Start: 1970 Hepatitis C screening Hepatitis C Sc reejeff [facility] Start: 1962 Diabetic foot examination Diabetic F oot Exam [facility] Start: 1962 Glaucoma screening Dilated Retinal E xam [facility] Start: 1962 Hepatitis B screening Urine Al bumin:Creatinine Ratio [facility] Immunizations Immunization Date Immunization Notes Care Provider Fa cility 01-15-2022 influenza virus vaccine, unspecified formulation Yusra Denis [facility] 01-15-2022 zoster vaccine recombinant Yusra Cira [facility] 01-11-2021 influenza, unspecifi ed formulation Yusra Denis [facility] 07-22-2020 SARS-CoV-2 (COVID-19 ) mRNA BNT-162b2 vax Yusramanuel HenryCira [facility] Comment on above: Result Comment: 2021: [id number] 06-30-2020 SARS-CoV-2 (COVID-19 ) mRNA BNT-162b2 vax Yusramanuel Rinconz [facility] Comment on above: Result Comment: 2021: [id number] 06-27-2020 tetanus and diphther ia toxoids, adsorbed, preservative free, for adult use (2 Lf of tetanus toxoid and 2 Lf of diphtheria toxoid) Yusra Denis [facility] 11-14-2019 influenza virus vaccine, unspecified formulation Yusra Denis [facility] 10-31-2018 influenza virus vaccine, unspecified formulation Yusra Denis [facility] 10-31-2018 pneumococcal polysaccharide vaccine, 23 valent Yusra Denis [facility] 10-22-2017 influenza virus vaccine, unspecified formulation Yusra Denis [facility] 10-22-2017 pneumococcal conjuga te vaccine, 13 valent Yusra Denis [facility] 12-07-2016 influenza, unspecifi ed formulation Yusra Denis [facility] 01-30-2016 influenza, injectabl e, quadrivalent, preservative free 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 Miller 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 FILTER 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 Work Phone: [facility] 01-30-2016 pneumococcal polysaccharide vaccine, 23 valent Nanci Miller 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 FILTER OPERATOR Work Phone: [facility] 01-30-2016 influenza virus vaccine, unspecified formulation Nanci Miller 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 FILTER OPERATOR Work Phone: [facility] NEGATED: Highlighted row has not occurred!11-16-2021 influenza virus vaccine, unspecified formulation Yusra Denis [facility] Payers Date Payer Category Payer Unknown MMO MMO MEDICARE SUPPLEMENT [id number] 2019-Present [phone] [address] [place] [address] Indemnity [id number] 2017 Medicare MEDICARE MEDICAR E A AND B [id number] 2017-Present [phone] [address] [address] [place] [address] Medicare [id number] 1959 Medicare [id number] 1959 Self-pay 1959 Unknown [id number] 1950 Unknown [id number] 1950 Unknown [id number] 1950 Unknown [id number] 1950 Unknown [id number] 1950 Unknown [id number] 1950 Unknown [id number] 1950 Unknown [id number] 1950 Unknown [id number] 1950 Unknown [id number] 1950 Unknown [id number] 1950 Unknown [id number] 1950 Unknown [id number] Social History Date Type Detail Facility Tobacco Never smoker [facility] Comment on above: denies current use Start: 01-20-2020 End: 09-05-2020 Sex Assigned At Male [facility] Start: 06-27-2015 End: 07-19-2021 Tobacco smoking status Never smoked tobacco (finding) [facility] Comment on above: denies current use Tobacco smoking status Never [facility] Start: 06-27-2015 Tobacco use and exposure Smokeless tobacco non-user [facility] Start: 09-05-2020 Alcohol intake 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 (finding) [facility] Start: 01-20-2020 End: 09-05-2020 History of Social function [facility] Start: 1950 Sex Assigned At Not on file [facility] Medical Equipment Procedure Code Equipment Code Equipment Origin al Text Equipment Identifier Dates Mesh Prolene Squ are Flat [id number] Surgical Knit Nonabsorbable Nonreactive - [id number] Start: 08-12-2020 Functional Status Date Assessment Result Facility 04-15-2023 Functional Status N/A [facility] 05-17-2022 Functional Status N/A [facility] 11-16-2021 Functional Status N/A [facility] 10-05-2021 Functional Status N/A [facility] Clinical Notes 08-12-2020 to 04-26-2023 Telephone Encounter - Teresa Moore - 04/26/2023 1:09 PM EDT Note Date & Type Note Facility 04-26-2023 Miscellaneous Notes Formattin g of this note might be different from the original. Called and LVM regarding referral for Manometry by Choudhury Greene. documented in this encounter [facility] 01-23-2023 Note [facility] 01-23-2023 Note Review of Systems All other systems reviewed and are negative. PT JUST GETTING OVER COVID. FEELS GOOD, HE IS HOPING TO GO SOUTH SOON, BP ON TH LOWER SIDE TODAY, DOES NOT FEEL DIZZY [facility] 01-08-2023 Note [facility] 01-08-2023 Note [facility] 12-26-2022 Note [facility] 12-12-2022 Note [facility] 12-12-2022 Note [facility] 12-05-2022 Note [facility] 12-05-2022 Note [facility] 12-05-2022 Note [facility] 12-05-2022 Note [facility] 12-05-2022 Note [facility] 12-05-2022 Note [facility] 12-05-2022 Note [facility] 12-04-2022 Note [facility] 12-04-2022 Note [facility] 12-04-2022 Note Addendum created 1143 by Robin Pérez Intraprocedure Staff edited (Perfusion) [facility] 12-04-2022 Note [facility] 12-03-2022 Note [facility] 12-03-2022 Note [facility] 12-03-2022 Note [facility] 12-03-2022 Note [facility] 12-03-2022 Note [facility] 12-03-2022 Note [facility] 12-02-2022 Note [facility] 12-02-2022 Note This report has been cancelled. [facility] 12-02-2022 Note [facility] 12-01-2022 Note [facility] 12-01-2022 Note [facility] 12-01-2022 Note Chest tube placed at bedside per ICU MD. Patient signed consent and placed in chart. Patient tolerated procedure well. Patient Vitals are as charted. CXR ordered. Safety Maintained. [facility] 12-01-2022 Note [facility] 11-30-2022 Note [facility] 11-30-2022 Note [facility] [facility] 11-30-2022 Note [facility] 11-29-2022 Note [facility] 11-29-2022 Note [facility] 11-29-2022 Note [facility] 11-28-2022 Note [facility] 11-28-2022 Note [facility] 11-27-2022 Note [facility] 11-27-2022 Note [facility] 11-27-2022 Note [facility] 11-27-2022 Note [facility] 11-26-2022 Note [facility] 11-26-2022 Note [facility] 11-26-2022 Note [facility] 11-26-2022 Note [facility] 08-21-2022 Evaluation + Plan note Extrac lo from: Title:[facility] H&P Author:Aggie Hollingsworth Date: 08/21/22 Impression and [...] stroke: no 4. Serious co-morbid conditions (recent ME, anemia with Hct <30%, CRI with SCr [...] PT 03/06/22 * Vitamin B12 Level 06/27/22 [facility]04-06-2023 Hospital Discharge instructions Patient Education [...] who treats conditions of the digestive system (collections assistant). Follow these instructions at home: Take bopv-xmt-qoxiyze and prescription medicines only as told by [...] 08/27/2017 Document Revised: 01/10/2018 Document Reviewed: 10/15/2017 [employer] Patient Education 2020 [employer]. Follow Up Care 11/16/2021 08:43:43 With:Yusra Denis CNP Address: When:1 month [facility] 10-06-2022 Hospital Discharge instructions Patient [...] 10/24/2004 Document Revised: 05/15/2018 Document Reviewed: 05/15/2018 [employer] Patient Education 2019 [employer]. Follow Up Care 10/10/2021 11:02:12 With:Yusra Denis CNP Address: When:6 months [facility] 08-25-2022 Evaluation + Plan noteExtracted from: Title:ANEUnruly POSTOP Author:Dangelo Morel DO Date: 10/05/21 Plan Transfer/ Discharge: Patient can be discharged from PACU when criteria met. Condition good. Extracted from: Title:ANES PREOP Author:Dangelo Morel DO Date: Plan [employer] [employer] (ASA) physical status classification: [...] 01/09/22 * PT 02/06/22 * PT 03/06/22 [facility]08-25-2022 Hospital Discharge instructions Patient Education [...] With:Thais HINOJOSA Address: [address] [place] [address] Business (1) When: Unknown Comments:OFFICE WILL CALL DATE AND TIME OF FOLLOW-UP APPT. [facility]06-08-2022 Hospital Discharge instructions Patient Education [...] Follow these instructions at home: Medicines Take jpwo-mpj-rmuuyix and prescription medicines only as told by your health care provider. If you were prescribed an antibiotic medicine, take it as told by your health care provider. Do notstop taking the antibiotic even if you start to feel better. Eating and drinking Follow any diet changes as told by your health care provider. Work with a diet and donor specialist (dietitian) to create an eating plan [...] 01/25/2001 Document Revised: 06/24/2019 Document Reviewed: 06/24/2019 [employer] Patient Education 2019 [employer]. Follow Up Care 07/11/2021 11:18:24 With:Yusra Denis CNP Address: When:1 month [facility] 05-16-2022 Hospital Discharge instructions Follow Up Care 06/26/2021 10:32:10 With:Dougie Harmon Address: [facility] [place] [address]- [phone] Fax Business 1 When: Unknown Comments:cbc, cmp, cea in 6mofollow-up in 6mo [facility]03-22-2022 Evaluation + Plan noteExtracted from: Title:- [facility] H&P Author:Aggie Hollingsworth Date :05/02/21 Impression and [...] stroke: no 4. Serious co-morbid conditions (recent ME, anemia with Hct <30%, CRI with SCr > 1.5, DM): yes hx of cancer Score = 2//4 Risk (low = 0, mod = 1-2, high = 3-4) Future Appointments Appointment Date:02/27/2022 07:30:00 AM Scheduled [facility] Type:Anticoagulation Remote 15 (FT) Appointment Date:05/17/2022 08:00:00 AM Scheduled Provider:Yusra Denis CNP Location:[facility] Appointment Type:BADH Follow Up Appointment Date:06/27/2022 01:30:00 PM Scheduled Provider:Dougie Harmon DO [facility] Type:ONC Office Visit 15 (FT) [...] 01/09/22 * PT 02/06/22 * PT 03/06/22 [facility]07-02-2021 History of Past illness Narrative* Problem Noted Date Diagnosed Date Resolved Date Ventral hernia 08/12/2020 08/17/2020 Last Assessment & Plan: Assessment: 69 year old year old male 2 Days Post-Op s/p TAR for ventral hernia repair PLAN: ROBF, continue DENTAL soft diet Continue current pain regimen Home GERD meds Initiating therapeutic lovenox for transition to warfarin Continue drains, monitor outpus PRN antiemetics Encourage OOB and ambulation Encourage IS and pulmonary toilet Dispo: possible d/c 08/18; Case Management following for SNF placement Attention to ileostomy 07/25/201607/25 Dehydration 02/28/2016 02/28/2016 Acute kidney injury superimposed on CKD (HCC) 02/27/19 17 03/16/2016 Supratherapeutic INR 02/28/2016 017 High output ileostomy 02/28/20162016 Hypomagnesemia 02/28/2016 02/28/2016 Postoperative ileus 02/03/2016 02/03/20 16 Hypokalemia 02/03/2016 02/03/2016 Hyponatremia 02/03/2016 03/16/2016 Hypocalcemia 02/03/2016 02/03/2016 documented as of this encounter (statuses as of 04/26/2023) [facility]ments Appointment Date:06/19/2021 09:00:00 AM Scheduled Provider:Purnima Borden Location:[facility].ONCOLOGY Appointment Type:ONC Office Visit 15 (FT) Appointment Date:06/23/2021 08:45:00 AM Scheduled Provider: [facility] Type:Anticoagulation Follow Up 15 (FT) Future Scheduled Tests Laboratory* PT 03/07/21 * PT 04/04/21 * PT 05/02/21 * PT 05/30/21 * PT 06/27/21 * PT 07/25/21 * PT 08/22/21 * PT 09/19/21 * PT 10/17/21 * PT 11/14/21 * PT 12/12/21 * PT 01/09/22 * PT 02/06/22 * PT 03/06/22 [facility] Future [facility]ments [...] 01/09/22 * PT 02/06/22 * PT 03/06/22 [facility] Future Appointments Appointment Date:08/08/2021 08:30:00 AM Scheduled Provider: [facility] Type:Anticoagulation Follow Up 15 (FT) Appointment Date:08/28/2021 12:50:00 PM Scheduled Provider: Location:[facility] Appointment Type:Surgery FT Appointment Date:12/28/2021 01:00:00 PM Scheduled Provider:Dougie Harmon DO [facility] Type:ONC Office Visit 15 (FT) [...] 01/09/22 * PT 02/06/22 * PT 03/06/22 [facility] Evaluation + Plan note Future Appointments Appointment Date:11/24/2021 09:30:00 AM Scheduled Provider: [facility] Type:Anticoagulation Follow Up 15 (FT) Appointment Date:12/28/2021 01:00:00 PM Scheduled Provider:Dougie Harmon DO [facility] App[facility] Type:ONC Office Visit 15 (FT) Appointment Date:05/17/2022 08:00:00 AM Scheduled Provider:Yusra Denis CNP Location:[facility] Appointment Type:[facility] Follow Up Future Scheduled Tests Laboratory* CBC w/ Auto Diff 12/27/21 * CEA 12/27/21 * Comprehensive Metabolic Panel 12/27/21 * PT 03/07/21 * PT 04/04/21 * PT 05/02/21 * PT 05/30/21 * PT 06/27/21 * PT 07/25/21 * PT 08/22/21 * PT 09/19/21 * PT 10/17/21 * PT 11/14/21 * PT 12/12/21 * PT 01/09/22 * PT 02/06/22 * PT 03/06/22 [facility] Evaluation + Plan note Future Appointments Appointment Date:12/28/2021 01:00:00 PM Scheduled Provider:Dougie Harmon DO Location:[facility].ONCOLOGY Appointment Type:ONC Office Visit 15 (FT) Appointment Date:01/09/2022 09:00:00 AM Scheduled Provider: [facility] Type:Anticoagulation Follow Up 15 (FT) Appointment Date:05/17/2022 08:00:00 AM Scheduled Provider:Yusra Denis CNP Location:[facility] Appointment Type:[facility] Follow Up Future Scheduled Tests Laboratory* PT 03/07/21 * PT 04/04/21 * PT 05/02/21 * PT 05/30/21 * PT 06/27/21 * PT 07/25/21 * PT 08/22/21 * PT 09/19/21 * PT 10/17/21 * PT 11/14/21 * PT 12/12/21 * PT 01/09/22 * PT 02/06/22 * PT 03/06/22 [facility] Future Appointments Appointment Date:01/09/2022 09:00:00 AM Scheduled Provider: [facility] Type:Anticoagulation Follow Up 15 (FT) Appointment Date:05/17/2022 08:00:00 AM Scheduled Provider:Yusra Denis CNP Location:[facility] Appointment Type:BADH Follow Up Appointment Date:06/27/2022 01:30:00 PM Scheduled Provider:Dougie Harmon DO [facility] Type:ONC Office Visit 15 (FT) Future Scheduled Tests Laboratory* PT 03/07/21 * PT 04/04/21 * PT 05/02/21 * PT 05/30/21 * PT 06/27/21 * PT 07/25/21 * PT 08/22/21 * PT 09/19/21 * PT 10/17/21 * PT 11/14/21 * PT 12/12/21 * PT 01/09/22 * PT 02/06/22 * PT 03/06/22 [facility] Future Appointments Appointment Date:06/01/2022 09:30:00 AM Scheduled Provider: Location:.[facility] Appointment Type:Anticoagulation Follow Up 15 (FT) Appointment Date:06/15/2022 08:00:00 AM Scheduled Provider:Yusra Denis CNP Location:[facility] Appointment Type:BAD Follow Up Appointment [...] PT 03/06/22 * Vitamin B12 Level 05/17/22 [facility] Evaluation + Plan note Future Appointments Appointment Date:06/27/2022 08:20:00 AM Scheduled Provider:Yusra Denis CNP Location:[facility] Appointment Type:[facility] Follow Up Appointment Date:06/27/2022 02:00:00 PM Scheduled [...] PT 03/06/22 * Vitamin B12 Level 05/17/22 [facility] Evaluation + Plan note Future Appointments Appointment Date:06/27/2023 02:00:00 PM Scheduled Provider:Dougie Harmon DO Location:[facility].ONCOL[facility] Appointment Type:ONC Office Visit 15 (FT) Future Scheduled Tests Laboratory* PT 04/30/22 * PT 05/31/22 * PT 06/30/22 * Vitamin B12 Level 06/27/22 Radiology* CT Abdomen/Pelvis w/ + w/o Contrast 04/15/23 [facility] Evaluation + Plan note Future Appointments Appointment Date:04/23/2023 12:00:00 PM Scheduled Provider: Location:FT.CAT SCAN Appointment Type:CT Abdomen/Pelvis Combo (FT) Appointment Date:06/27/2023 02:00:00 PM Scheduled Provider:Dougie Harmon DO Location:[facility].ONCOLOG[facility] Appointment Type:ONC Office Visit 15 (FT) Future Scheduled Tests Laboratory* PT 04/30/22 * PT 05/31/22 * PT 06/30/22 * Vitamin B12 Level 06/27/22 Radiology* CT Abdomen/Pelvis w/ + w/o Contrast 04/23/23 [facility] Future Appointments Appointment Date:06/27/2023 02:00:00 PM Scheduled Provider:Dougie Harmon DO Location:[facility].ONCOLOGY Appointment Type:ONC Office Visit 15 (FT) Future Scheduled Tests Laboratory* PT 04/30/22 * PT 05/31/22 * PT 06/30/22 * Vitamin B12 Level 06/27/22 [facility] course Narrative No data available for this section [facility] Discharge instructions No data available for this section [facility] No data available for this section [facility] Summary Purpose Family History No Family History Records FoundNo Family History Records FoundNo Family History Records Found No data available for this section No Family History Records Found No data available for this section No data available for this section No data available for this section No Family History Records FoundNo Family History Records Found Advance Directives No Advanced Directives Records FoundDocuments on File Type Date Recorded 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 Advance Directive(s) 06/27/2018 11:11 AM Hospital Course Note [address] [place] [address] Discharge Summary Signed:[id number] Name: LAKIA RODRIGUEZ MRUN: [id number] : 1950 Loc: 3S Age / Sex: 68/ M Adm Status: ADM Leonor Adm Date:06/03/19 Room/Bed: [facility] Date of Service - Date of Service Date: 06/05/19 - Time Spent on Discharge Minutes spent on discharge:: 45 - Hospital Summary Hospital Summary:: This is a pleasant 68-year-old male with a history of diabetes mellitus and colon cancer was brought into the emergency room by the fitness supervisor for further evaluation and management of a syncopal event. Patient was in his usual state of health until this afternoon. 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 He was taking the exit to get to the Highway around 4:30 PM after exchanging the trailer with his colleague. He felt like his truck is spinning around. The next thing he knew was fitness supervisor were knocking on the door. He was [...] section and content) DATE CREATED AUTHOR 01/23/2018 [facility] DATE CREATED AUTHOR AUTHOR'S ORGANIZ ATION 04/12/2020 [facility] DATE CREATED AUTHOR AUTHOR'S ORGANIZ ATION 12/23/2021 [facility] DATE CREATED AUTHOR AUTHOR'S ORGANIZ ATION 01/25/2023 [facility] DATE CREATED AUTHOR AUTHOR'S ORGANIZ ATION 05/04/2023 [facility] DATE CREATED AUTHOR AUTHOR'S ORGANIZ ATION 05/08/2023 Kei Franco [facility] Care Team (unrecognized sect ion and content) Inspector [employer] Relationship Specialty Start Date End Date Cynthia Aguila CNP [address] [place] [address] PCP - General 08/05/18 Lakia Dyson MD [address] [place] [address] Referring Family Medicine 05/04/20 Source Comments (unrecognize d section and content) In the event this informatio n is protected by the Federal Confidentiality of Alcohol and Drug Abuse Patient Records regulations: The Federal rules restrict any use of the information to criminally investigate or prosecute any alcohol or drug abuse patient.[facility] FOR RECORDS PERTAINING TO PATIENTS WHO ARE [...] BE BASED ON THE PRIMARY CLINICAL RECORDS. [facility]. provides no warranty or guarantee of the accuracy or completeness of information in this document.
[2023-05-09] MEDS: METHYLPREDNISOLONE SOD SUCC PF 125 MG/2 ML VIAL IVP (07:14)
[2023-05-09] MEDS: MORPHINE SULFATE 4 MG/ML VIAL IV (07:14)
[2023-05-09] MEDS: ONDANSETRON PF 4 MG/2 ML VIAL IV (07:15)
[2023-05-09] MEDS: ORPHENADRINE 60 MG/ 2 ML VIAL IM (07:15)
--- NOTE | 2023-05-09 07:34 | CT_ITS ---
[address] [address] Patient Name: LAKIA RODRIGUEZ MRN: [facility]:[id number] date: 1950 Sex: M Assigned Patient Location: ER Current Patient Location: ER Accession/Order Number: [id number] Exam Date: 05/09/2023 08:03 Report Date: 05/09/2023 08:44 At the request of: SHANELL SUNSHINE Procedure: CT lumbar spine wo con EXAMINATION: CT lumbar spine wo con HISTORY: Atraumatic pain COMPARISON: No relevant comparison available. TECHNIQUE: Axial, Coronal, and Sagittal CT images were created without I.V. contrast material. Dose reduction techniques were achieved by using automated exposure control and/or adjustment of mA and/or kV according to patient size and/or use of iterative reconstruction technique. FINDINGS: PARASPINAL AREA: Normal with no visible mass. BONES: Mild levocurvature no acute fracture or spondylolisthesis. Subtle lucency identified through the right L1 pedicle best visualized on sagittal image #30 is felt to be vascular groove or artifact. Mild to moderate degenerative spondylosis most significant L4-L5 DISC LEVELS: 12-L1: Moderate degenerative disc disease is present without visible neural impingement. L1-L2: No significant disc/facet abnormality, spinal stenosis, or foraminal stenosis. L2-L3: Early degenerative disc disease is present without focal protrusion or neural impingement. L3-L4: Early degenerative disc disease is present without focal protrusion or neural impingement. L4-L5: Moderate to severe disc space narrowing right greater than left with endplate sclerosis and vacuum disc. Mild to moderate disc/osteophyte complex. Posterior broad-based disc protrusion extending up to 2.6 mm. Facet osteoarthropathy. No central canal or left foraminal stenosis. Mild narrowing of the right neural foramen, sagittal image 27 L5-S1: Mild diffuse disc/osteophyte complex and facet osteoarthropathy. No central canal stenosis. Mild bilateral foraminal stenosis CT/CT lumbar spine wo con IMPRESSION: 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 No acute fracture Electronically authenticated by: FELICIA BENITEZ Date: 05/09/2023 08:44
--- NOTE | 2023-05-09 09:20 | PC.NURSE ---
Attempted to perform walk test jesus alberto pt -- pt unable to even sit up on side of bed d/t his R leg pain. informed dr benito
[2023-05-09 12:25] LABS: Basophils Percent Auto 0.2 % (0.2-2.0); Eosinophils Percent Auto 0.1 % (0.9-7.0); Hematocrit 58.2 % (42.0-54.0); Hemoglobin 18.9 g/dL (14.0-18.0); Immature Granulocytes Abs Auto 0.23 10^3/uL (0.00-0.03); Immature Granulocytes Pct Auto 1.3 % (0.0-0.5); Lymphocytes Absolute Auto 1.9 10^3/uL (1.2-3.8); Lymphocytes Percent Auto 10.4 % (20.5-60.0); Mean Corpuscular HGB Conc 32.5 g/dL (29.9-35.2); Mean Corpuscular Hemoglobin 29.8 pg (25.9-34.0); Mean Corpuscular Volume 91.7 fL (80.0-94.0); Mean Platelet Volume 11.2 fL (9.5-13.5); Monocytes Absolute Auto 1.2 10^3/uL (0.3-0.8); Monocytes Percent Auto 6.9 % (1.7-12.0); Neutrophils Absolute Auto 14.5 10^3/uL (1.4-6.5); Neutrophils Percent Auto 81.1 % (43.0-75.0); Platelet Count 238 10^3/uL (150-450); Red Blood Count 6.35 10^6/uL (4.70-6.10); Red Cell Distribution Width 16.1 % (11.0-15.0); White Blood Count 17.9 10^3/uL (4.0-11.0)
[2023-05-09 12:31] LABS: INR 3.61; Prothrombin Time 35.6 sec (9.0-11.6)
[2023-05-09 12:34] LABS: Alanine Aminotransferase 58 U/L (16-63); Albumin Globulin Ratio 1.2; Alkaline Phosphatase 98 U/L (46-116); Anion Gap 14.6; Aspartate Amino Transferase 14 U/L (15-37); BUN Creatinine Ratio 20.6; Bilirubin Total 0.6 mg/dL (0.2-1.0); C Reactive Protein <0.50 mg/dL (<=0.50); Calcium 10.1 mg/dL (8.5-10.1); Carbon Dioxide 27.8 mmol/L (21.0-32.0); Chloride 101 mmol/L (98-107); Estimated GFR (African America >60 (>=60); Estimated GFR (Non-African Ame 52 (>=60); Globulin 3.4 g/dL; Glucose 156 mg/dL (74-106); Potassium 4.4 mmol/L (3.5-5.1); Sodium 139 mmol/L (136-145); Total Protein 7.4 g/dL (6.4-8.2)
[2023-05-09 12:43] LABS: Erythrocyte Sedimentation Rate 17 mm/hr (<=20)
[2023-05-09] MEDS: HYDROMORPHONE HCL 0.5 MG/0.5 ML SYRINGE IV ×2 (13:25→18:32)
[2023-05-09] MEDS: METHYLPREDNISOLONE SOD SUCC PF 40 MG/ML VIAL 60 MG IVP ×2 (13:25→18:31)
--- NOTE | 2023-05-09 14:36 | SWNOTE1 ---
SW met with pt to discuss dc needs. Order for SW was group home. Pt [place] the [place] condos [place] the hospital. He lives by himself and he has been using a cane to walk. Pt voices the pain is in his right leg and back as well. [place] spoke [place] as he was having respiratory issues. He voiced he goes to [place], sometimes [place] then [place]. Pt is unsure of dc plan. Pt stated he has been to [facility] 4 times in the past for rehab. He thinks most recently it was in December. He voiced he was transferred to [facility] then went to [facility]. Medicare Outpatient Observation Notice reviewed and discussed with patient. Pt. verbalized understanding and signed the form. ROBERT again re-riterated that if pt is in observation status, medicare does not pay for rehab at nursing facility. He does voice understanding. Original given to patient and copy placed in patient?s chart. At this time pt is unsure of his plans, voiced if he had to go to [facility] he may, but if he gets better he will return home. He voiced at home he is alone and his concern right now is that he can't ambulate. SW to follow as needed.
--- NOTE | 2023-05-09 15:00 | SWNOTE1 ---
Pt was switched to inROBERT her to review IMM with pt.
--- NOTE | 2023-05-09 15:31 | SWNOTE1 ---
Important Message from Medicare reviewed and discussed with patient. Pt. verbalized understanding and signed the form. Original given to patient and copy placed in patient?s chart. Pt would like SW to send information to [facility] in case he is not able to return home due to not being able to ambulate. Referral sent to [facility]. Referral included face sheet, ED note,case management report, nursing notes, diagnostic imaging, med list, and PT note.
[2023-05-09] MEDS: 0.9 % SODIUM CHLORIDE 250 ML 10 ML IV (15:37)
[2023-05-09] MEDS: CEFTRIAXONE 1,000 MG in 0.9 % SODIUM CHLORIDE 50 ML 100 MG IV (15:37)
[2023-05-09] MEDS: ACETAMINOPHEN 500 MG TABLET 1000 MG PO ×2 (15:38→21:24)
[2023-05-09 16:16] LABS: Glucometer 261 mg/dL (74-106)
--- NOTE | 2023-05-09 16:23 | SWNOTE1 ---
SW received message from [facility] and they are able to accept if pt will need SNF at discharge.
[2023-05-09] MEDS: INSULIN ASPART 300 UNIT/3 ML PEN SUBQ ×2 (16:29→21:20)
[2023-05-09] MEDS: ORPHENADRINE 60 MG/ 2 ML VIAL IV (20:28)
[2023-05-09] MEDS: SACUBITRIL/VALSARTAN 24 MG-26 MG TABLET 1 TAB PO (20:28)
[2023-05-09 20:29] LABS: Glucometer 244 mg/dL (74-106)
[2023-05-10] VITALS (10 sets, daily range): BP systolic 122–156; BP diastolic 51–97; PULSE 58–60; TEMP 36.4–36.8; O2SAT 92–95
[2023-05-10 00:35] LABS: Bilirubin Urine NEGATIVE (NEGATIVE); Blood Urine MODERATE (NEGATIVE); Clarity Urine CLEAR (CLEAR); Color Urine LT. YELLOW (YELLOW); Glucose Urine UA >=1000 mg/dL (NEGATIVE); Ketones Urine TRACE mg/dL (NEGATIVE); Leukocyte Esterase Urine NEGATIVE (NEGATIVE); Nitrite Urine NEGATIVE (NEGATIVE); Protein Urine TRACE mg/dL (NEG/TRACE); Urobilinogen Urine 0.2 EU/dL (0.2-1.0)
[2023-05-10 00:51] LABS: Bacteria Urine NONE SEEN #/HPF (NONE SEEN); Cast Seen? NONE SEEN #/LPF (NONE SEEN); Crystals Seen? None Seen #/HPF (None Seen); Mucus Urine NONE SEEN (NONE SEEN); RBC Urine 0-2 #/HPF (0-2); Squamous Epithelial Cell Urine NONE SEEN #/LPF (NONE/RARE); WBC Urine NONE SEEN #/HPF (NONE SEEN)
[2023-05-10 00:52] LABS: Urine Culture Indicated NO
[2023-05-10] MEDS: METHYLPREDNISOLONE SOD SUCC PF 40 MG/ML VIAL 60 MG IVP ×5 (01:08→23:58)
[2023-05-10] MEDS: HYDROMORPHONE HCL 0.5 MG/0.5 ML SYRINGE IV ×4 (01:08→23:58)
[2023-05-10 05:09] LABS: Basophils Percent Auto 0.1 % (0.2-2.0); Hemoglobin 16.4 g/dL (14.0-18.0); Immature Granulocytes Abs Auto 0.09 10^3/uL (0.00-0.03); Immature Granulocytes Pct Auto 0.6 % (0.0-0.5); Lymphocytes Absolute Auto 0.4 10^3/uL (1.2-3.8); Lymphocytes Percent Auto 2.9 % (20.5-60.0); Mean Corpuscular HGB Conc 32.2 g/dL (29.9-35.2); Mean Corpuscular Hemoglobin 29.3 pg (25.9-34.0); Mean Corpuscular Volume 91.2 fL (80.0-94.0); Mean Platelet Volume 11.1 fL (9.5-13.5); Monocytes Absolute Auto 0.1 10^3/uL (0.3-0.8); Monocytes Percent Auto 0.8 % (1.7-12.0); Neutrophils Absolute Auto 14.7 10^3/uL (1.4-6.5); Neutrophils Percent Auto 95.6 % (43.0-75.0); Platelet Count 203 10^3/uL (150-450); Red Blood Count 5.59 10^6/uL (4.70-6.10); Red Cell Distribution Width 15.3 % (11.0-15.0); White Blood Count 15.4 10^3/uL (4.0-11.0)
[2023-05-10 05:30] LABS: Alanine Aminotransferase 36 U/L (16-63); Albumin Level 2.9 g/dL (3.4-5.0); Alkaline Phosphatase 72 U/L (46-116); Anion Gap 11.8; Aspartate Amino Transferase 11 U/L (15-37); BUN Creatinine Ratio 27.3; Bilirubin Total 0.5 mg/dL (0.2-1.0); Carbon Dioxide 27.6 mmol/L (21.0-32.0); Chloride 105 mmol/L (98-107); Estimated GFR (African America >60 (>=60); Estimated GFR (Non-African Ame 56 (>=60); Globulin 2.8 g/dL; Glucose 168 mg/dL (74-106); Potassium 4.4 mmol/L (3.5-5.1); Sodium 140 mmol/L (136-145); Total Protein 5.7 g/dL (6.4-8.2)
[2023-05-10 07:29] LABS: INR 2.06
[2023-05-10 07:38] LABS: Glucometer 151 mg/dL (74-106)
[2023-05-10] MEDS: INSULIN ASPART 300 UNIT/3 ML PEN SUBQ ×4 (08:10→22:49)
--- NOTE | 2023-05-10 08:21 | P.HP_ITS ---
HPI H&P: HPI History of Present Illness Chief complaint: back pain Narrative: Patient seen and evaluated in the emergency room with increasing low back pain. Unable to ambulate. Unable to control pain in ER so was admitted for observation. Opioid HPI Opioid Management Most Recent Opioid Data: Last Pain Scale 6 05/10/23 10:27 Last Pain Intensity 8 05/09/23 13:54 Last Pain Assessment 05/10/23 10:27 Last ED Pain Assessment 05/09/23 06:38 Last MAR Pain Assessment 05/10/23 02:04 Last ORT Total Score 0 05/09/23 10:17 Last ORT Risk Category Low Risk 05/09/23 10:17 PFSH PFSH Medical History (Updated 05/09/23 @ 09:45 by Jeremiah Oliveira MD) HLD (hyperlipidemia) ?E78.5 - Hyperlipidemia, unspecified (ICD-10) Acute asthma exacerbation ?J45.901 - Unspecified asthma with (acute) exacerbation (ICD-10) Leukocytosis ?D72.829 - Elevated white blood cell count, unspecified (ICD-10) Coronavirus infection ?B34.2 - Coronavirus infection, unspecified (ICD-10) HTN (hypertension) ?I10 - Essential (primary) hypertension (ICD-10) H/O ventricular tachycardia ?Z86.79 - Personal history of other diseases of the circulatory system (ICD- 10) Type 2 diabetes mellitus ?E11.9 - Type 2 diabetes mellitus without complications (ICD-10) Colon cancer ?C18.9 - Malignant neoplasm of colon, unspecified (ICD-10) Presence of combination internal cardiac defibrillator (ICD) and pacemaker ?Z95.810 - Presence of automatic (implantable) cardiac defibrillator (ICD-10) Pacemaker ?Z95.0 - Presence of cardiac pacemaker (ICD-10) COVID-19 ?U07.1 - COVID-19 (ICD-10) Family History (Updated 05/09/23 @ 10:42 by Megan Winter) Father Family history of cancer Family history of diabetes mellitus Family history of hypertension Mother Family history of myocardial infarction Grandmother Family history of stroke Social History (Updated 05/09/23 @ 10:45 by Megan Winter) Within the past year, how often did you have a drink containing alcohol: never Within the past year, how many standard drinks containing alcohol did you have on a typical day: 1 or 2 Within the past year, how often did you have six or more drinks on one occasion: never Total score: 0 Score interpretation: A score less than 4 is consistent with normal alcohol consumption. 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 Highest level of school completed/degree received: some college, no degree In a typical week, how many times do you talk on the telephone with family, friends, or neighbors: 3 or more times per week How often do you get together with friends or relatives: once per week How often do you attend congregation or druze services: never Do you belong to any clubs or organizations such as congregation groups unions, CRE[employer] or athletic groups, or school groups: no Little interest or pleasure in doing things: not at all Feeling down, depressed, or hopeless: not at all Feel stressed/tense/nervous/anxious/difficulty sleeping: not at all Meds Home Medications and Allergies Home Medications ?Medication ?Instructions ?Recorded ?Confirmed ?Type atorvastatin 10 mg tablet 10 mg PO DAILY 11/24/22 05/09/23 History glipizide 5 mg tablet 5 mg PO DAILY 11/24/22 05/09/23 History warfarin 4 mg tablet 4 mg PO DAILY 11/24/22 05/09/23 History amiodarone 200 mg tablet 400 mg PO DAILY 03/23/23 05/09/23 History dapagliflozin propanediol 10 mg 10 mg PO QAM 03/23/23 05/09/23 History tablet (Farxiga) metoprolol succinate 50 mg 50 mg PO DAILY 03/23/23 05/09/23 History tablet,extended release 24 hr pantoprazole 40 mg tablet,delayed 40 mg PO DAILY 03/23/23 05/09/23 History release albuterol sulfate 90 mcg/actuation 2 inh inhalation Q6H PRN shortness 03/24/23 05/09/23 Rx aerosol inhaler of breath or wheezing #6.7 grams bisacodyl 10 mg rectal suppository 10 mg [place] Q24H PRN constipation 05/09/23 05/09/23 History (Gentle Laxative (bisacodyl)) sacubitril 24 mg-valsartan 26 mg 1 tab PO BID 05/09/23 05/09/23 History tablet (Entresto) Allergies Allergy/AdvReac Type Severity Reaction Status Date / Time Penicillins Allergy Unknown Verified 05/09/23 06:28 Exam Constitutional Vital Signs, click to edit/add: Last Vital Signs Temp 98.0 F 05/10/23 03:00 Pulse 59 L 05/10/23 03:00 Resp 20 05/10/23 03:00 BP 143/81 H 05/10/23 03:00 Pulse Ox 93 L 05/10/23 04:01 O2 Del Method Room Air 05/10/23 04:01 Documenting provider has reviewed patient's vital signs: yes Common normals: no apparent distress and oriented x3 General appearance: cooperative HENMT Common normals: normocephalic and head/scalp atraumatic Head and scalp: normocephalic and atraumatic Eye Common normals: conjunctivae normal and no scleral icterus Conjunctiva: conjunctiva(e) normal Respiratory Common normals: normal respiratory effort Effort & inspection: able to speak in complete sentences Auscultation: wheezes scattered wheezes Cardio Common normals: regular rate, S1 normal heart sound and S2 normal heart sound Rate: regular rate Heart sounds: S1 normal and S2 normal GI Common normals: Normal to inspection, nondistended, normoactive bowel sounds present, soft to palpation, non-tender and no hepatosplenomegaly Palpation: soft and no hepatosplenomegaly Back & Pelvis Common normals: CVA tenderness Extremity Common normals: no clubbing, cyanosis or edema (Poor ROM in the legs secondary to pain) Neuro Common normals: oriented x3, moves all extremities and no focal motor deficits Psych Common normals: mental status grossly normal, denies hallucinations, denies homicidal ideation and denies suicidal ideation Results Labs Labs: Short CBC 05/09/23 05/10/23 Range/Units 06:32 04:18 WBC 17.9 H 15.4 H (4.0-11.0) 10^3/uL Hgb 18.9 H 16.4 (14.0-18.0) g/dL Hct 58.2 H 51.0 (42.0-54.0) % Plt Count 238 203 (150-450) 10^3/uL BMP 05/09/23 05/10/23 06:32 04:18 Sodium 139 140 Potassium 4.4 4.4 Chloride 101 105 Carbon Dioxide 27.8 27.6 BUN 28.0 H 35.0 H Creatinine 1.36 H 1.28 Glucose 156 H 168 H Calcium 10.1 9.0 Liver Function 05/09/23 05/10/23 Range/Units 06:32 04:18 Total Bilirubin 0.6 0.5 (0.2-1.0) mg/dL AST 14 L 11 L (15-37) U/L ALT 58 36 (16-63) U/L Alkaline Phosphatase 98 72 (46-116) U/L Albumin 4.0 2.9 L (3.4-5.0) g/dL Urine 05/10/23 Range/Units 00:10 Urine Color Lt. yellow (YELLOW) Urine Clarity Clear (CLEAR) Urine pH 6.0 (5.0-9.0) Ur Specific [place] 1.020 (1.005-1.025) Urine Protein Trace (NEG/TRACE) mg/dL Urine Glucose (UA) >=1000 A (NEGATIVE) mg/dL Assessment and Plan Assessment and Plan (1) Unable to ambulate: Plan Hypertension secondary to intractable low back pain-physical therapy to work with patient, so far the steroids and muscle relaxers have helped, patient would like rehab if qualifies. Gisela. Will see what physical therapy thinks. Possible to either discharge or transfer to rehab. Uncontrolled hypertension-adjust medications Hematuria-check ultrasound to see if that is contributing to his back pain Diabetes mellitus-insulin sliding scale, unable to use high-dose steroids secondary to diabetes Iron deficiency anemia-monitor as an outpatient Coumadin toxicity-check levels daily Patient was accidentally placed in inpatient status-this is an observational status currently. If he does need to stay an additional day of the medically necessary treatment will span 2 midnights we will change patient to inpatient status
--- NOTE | 2023-05-10 08:21 | PM.DS1 ---
DS: Providers Provider Date of admission: 05/09/23 14:30 Primary care physician: SILVIO AGUILA Consults: 05/09/23 12:13 Consult to Pharmacy Routine Consulting Provider: Reason for consultation: Please [place] me when Med Rec is Updated Has provider been notified: No Consult to Director Of Clinical Services Routine Reason for consult:: Longterm Occupational Therapy Eval and Treat Routine Reason for consultation: Only if needed for Rehab Has provider been notified: No Physical Therapy Eval and Treat Routine Reason for consultation: Eval and Treat Has provider been notified: No DS: Summary Time Spent with Patient Time attestation: Total time spent providing and/or coordinating discharge services: Exam Constitutional Vital Signs, click to edit/add: Last Vital Signs Temp 98.0 F 05/10/23 03:00 Pulse 59 L 05/10/23 03:00 Resp 20 05/10/23 03:00 BP 143/81 H 05/10/23 03:00 Pulse Ox 93 L 05/10/23 04:01 O2 Del Method Room Air 05/10/23 04:01 DS: Data Data Completed and Pending Labs on day of discharge: Labs from last 24 hours 05/10/23 05/10/23 05/10/23 07:37 07:10 04:18 WBC 15.4 H RBC 5.59 Hgb 16.4 Hct 51.0 MCV 91.2 MCH 29.3 MCHC 32.2 RDW 15.3 H Plt Count 203 MPV 11.1 Neut % (Auto) 95.6 H Lymph % (Auto) 2.9 L [place] % (Auto) 0.8 L Eos % (Auto) 0.0 L Baso % (Auto) 0.1 L Neut # (Auto) 14.7 H Lymph # (Auto) 0.4 L [place] # (Auto) 0.1 L Eos # (Auto) 0.0 Baso # (Auto) 0.0 Abs Immat Gran (auto) 0.09 H Imm/Tot Granulo (auto) 0.6 H ESR PT 21.0 H INR 2.06 Sodium 140 Potassium 4.4 Chloride 105 Carbon Dioxide 27.6 Anion Gap 11.8 BUN 35.0 H Creatinine 1.28 Est GFR ( Amer) >60 Est GFR (Non-Af Amer) 56 L BUN/Creatinine Ratio 27.3 Glucose 168 H Calcium 9.0 Total Bilirubin 0.5 AST 11 L ALT 36 Alkaline Phosphatase 72 C-Reactive Protein Total Protein 5.7 L Albumin 2.9 L Globulin 2.8 Albumin/Globulin Ratio 1.0 Urine Color Urine Clarity Urine pH Ur Specific [place] Urine Protein Urine Glucose (UA) Urine Ketones Urine Occult Blood Urine Nitrite Urine Bilirubin Urine Urobilinogen Ur Leukocyte Esterase Urine RBC Urine WBC Ur Squamous Epith Cells Urine Crystals Urine Bacteria Urine Casts Urine Mucus Ur Culture Indicated? POC Glucose 151 H 05/10/23 05/09/23 05/09/23 00:10 20:28 16:15 WBC RBC Hgb Hct MCV MCH MCHC RDW Plt Count MPV Neut % (Auto) Lymph % (Auto) [place] % (Auto) Eos % (Auto) Baso % (Auto) Neut # (Auto) Lymph # (Auto) [place] # (Auto) Eos # (Auto) Baso # (Auto) Abs Immat Gran (auto) Imm/Tot Granulo (auto) ESR PT INR Sodium Potassium Chloride Carbon Dioxide Anion Gap BUN Creatinine Est GFR ( Amer) Est GFR (Non-Af Amer) BUN/Creatinine Ratio Glucose Calcium Total Bilirubin AST ALT Alkaline Phosphatase C-Reactive Protein Total Protein Albumin Globulin Albumin/Globulin Ratio Urine Color Lt. yellow Urine Clarity Clear Urine pH 6.0 Ur Specific [place] 1.020 Urine Protein Trace Urine Glucose (UA) >=1000 A Urine Ketones Trace A Urine Occult Blood Moderate A Urine Nitrite Negative Urine Bilirubin Negative Urine Urobilinogen 0.2 Ur Leukocyte Esterase Negative Urine RBC 0-2 Urine WBC None seen Ur Squamous Epith Cells None seen Urine Crystals None seen Urine Bacteria None seen Urine Casts None seen Urine Mucus None seen Ur Culture Indicated? No POC Glucose 244 H 261 H 05/09/23 06:32 WBC 17.9 H RBC 6.35 H Hgb 18.9 H Hct 58.2 H MCV 91.7 MCH 29.8 MCHC 32.5 RDW 16.1 H Plt Count 238 MPV 11.2 Neut % (Auto) 81.1 H Lymph % (Auto) 10.4 L [place] % (Auto) 6.9 Eos % (Auto) 0.1 L Baso % (Auto) 0.2 Neut # (Auto) 14.5 H Lymph # (Auto) 1.9 [place] # (Auto) 1.2 H Eos # (Auto) 0.0 Baso # (Auto) 0.0 Abs Immat Gran (auto) 0.23 H Imm/Tot Granulo (auto) 1.3 H ESR 17 PT 35.6 H INR 3.61 Sodium 139 Potassium 4.4 Chloride 101 Carbon Dioxide 27.8 Anion Gap 14.6 BUN 28.0 H Creatinine 1.36 H Est GFR ( Amer) >60 Est GFR (Non-Af Amer) 52 L BUN/Creatinine Ratio 20.6 Glucose 156 H Calcium 10.1 Total Bilirubin 0.6 AST 14 L ALT 58 Alkaline Phosphatase 98 C-Reactive Protein <0.50 Total Protein 7.4 Albumin 4.0 Globulin 3.4 Albumin/Globulin Ratio 1.2 Urine Color Urine Clarity Urine pH Ur Specific [place] Urine Protein Urine Glucose (UA) Urine Ketones Urine Occult Blood Urine Nitrite Urine Bilirubin Urine Urobilinogen Ur Leukocyte Esterase Urine RBC Urine WBC Ur Squamous Epith Cells Urine Crystals Urine Bacteria Urine Casts Urine Mucus Ur Culture Indicated? POC Glucose Discharge Plan Discharge Discharge Medications: No Action amiodarone 200 mg tablet 400 mg PO DAILY dapagliflozin propanediol [Farxiga] 10 mg tablet 10 mg PO QAM metoprolol succinate 50 mg tablet extended release 24 hr 50 mg PO DAILY pantoprazole 40 mg tablet,delayed release (DR/EC) 40 mg PO DAILY albuterol sulfate 90 mcg/actuation HFA aerosol inhaler 2 inh inhalation Q6H PRN (Reason: shortness of breath or wheezing) Qty: 6.7 0RF atorvastatin 10 mg tablet 10 mg PO DAILY glipizide 5 mg tablet 5 mg PO DAILY Rx Instructions: 30 MIN BEFORE BREAKFAST warfarin 4 mg tablet 4 mg PO DAILY Rx Instructions: DIRECTED bisacodyl [Gentle Laxative (bisacodyl)] 10 mg suppository 10 mg PA Q24H PRN (Reason: constipation) Entresto 24-26 mg tablet 1 tab PO BID Print Language: Bengali
--- NOTE | 2023-05-10 08:22 | US_ITS ---
The [address] [address] Patient Name: LAKIA RODRIGUEZ MRN: [id number] date: 1950 Sex: M Assigned Patient Location: [place] Current Patient Location: [place] Accession/Order Number: [id number] Exam Date: 05/10/2023 08:23 Report Date: 05/10/2023 09:51 At the request of: LAKIA KANWALUnique Procedure: US renal bladder EXAMINATION: US renal bladder HISTORY: hematuria , right flank pain COMPARISON: No relevant comparison available. TECHNIQUE: Ultrasound examination was performed of the kidneys and urinary bladder. FINDINGS: RIGHT KIDNEY: No evidence of pelvocaliectasis, mass, or calculi. Normal renal cortical parenchymal echogenicity. Color Doppler demonstrates blood flow within the kidney. No significant cortical thinning. Kidney: 10.0 x 4.4 x 3.8 cm LEFT KIDNEY: No evidence of pelvocaliectasis, mass, or calculi. Normal renal cortical parenchymal echogenicity. Color Doppler demonstrates blood flow within the kidney. No significant cortical thinning. Kidney: 8.7 x 4.1 x 4.8 cm BLADDER: No visible wall thickening, mass, or calculi. URETERAL JETS: Visualized bilaterally. US/US renal bladder IMPRESSION: 1. No abnormal or suspicious findings to account for patient's symptoms. Electronically authenticated by: ALEXSANDER WALKER Date: 05/10/2023 09:51
[2023-05-10] MEDS: CANAGLIFLOZIN 100 MG TABLET 300 MG PO (09:18)
[2023-05-10] MEDS: ATORVASTATIN CALCIUM 10 MG TABLET PO (09:18)
[2023-05-10] MEDS: GLIPIZIDE 5 MG TABLET PO (09:18)
[2023-05-10] MEDS: METOPROLOL SUCCINATE 50 MG TAB.ER.24H PO (09:18)
[2023-05-10] MEDS: AMIODARONE HCL 200 MG TABLET 400 MG PO (09:18)
[2023-05-10] MEDS: SACUBITRIL/VALSARTAN 24 MG-26 MG TABLET 1 TAB PO ×2 (09:18→20:21)
[2023-05-10] MEDS: OMEPRAZOLE 40 MG CAPSULE.DR PO (09:18)
[2023-05-10] MEDS: WARFARIN SODIUM 4 MG TABLET 2 MG PO (09:27)
[2023-05-10] MEDS: ORPHENADRINE 60 MG/ 2 ML VIAL IV ×2 (09:32→20:21)
[2023-05-10 11:34] LABS: Glucometer 247 mg/dL (74-106)
--- NOTE | 2023-05-10 12:55 | PT.DAILY ---
Physical Therapy Daily Note PT Daily Note/Assess Start: 05/09/23 13:54 Freq: Status: Active Protocol: Document 05/10/23 12:50 ANA MARÍA (Rec: 05/10/23 12:55 [email or web address] [id number]) Physical Therapy Daily Note/Assessment Time In/Time Out Time In 11:20 Time Out 11:35 Pain In Pain N/A Pain Out Pain N/A Subjective Subjective Pt supine upon arrival. Agrees to PT. 08/20 R LE pain currently. Therapeutic Exercise Time Therapeutic Exercise Minutes (minutes) 3 Therapeutic Exercise Units 0 Therapeutic Exercise Treatment Therapeutic Exercise Treatment Seated bilat LE strengthening ex complete while sitting at EOB unsupported. No LOB. Therapeutic Activity Time Therapeutic Activity Minutes (minutes) 10 Therapeutic Activity Units 1 Therapeutic Activity Treatment Bed Mobility Ability Minimum Assist Chair Transfer Ability Minimum Assist Therapeutic Activity Comments Supine>sit [place] to advance upper body to sit EOB. Once EOB he is able to perform bilat LE strengthening ex without LOB. Pt sit>stand from EOB to RW [place] and takes 3 steps to BS chair CGA. Pt agrees to amb in gr with 2 assist for safety incase of LE pain flare up. Pt sit>stand from chair [place]. Amb 100' with RW CGA of 2. Pt tenses up and starts to lose balance, claiming he is getting shooting pain in R LE. Takes MaxA+2 to keep pt standing until a third person brings chair. Pt is lowered to chair. Pt takes 2 min rest break before amb back to BS chair another 12' with RW. Pt is able to amb this time again with CGA+2. When sitting in BS chair a pillow is placed under R buttock to unload pressure to that area. Pt remains in BS chair upon completion and OT is present for evaluation at this time. Total Physical Therapy Time Total Therapy Minutes 13 Total Physical Therapy Units 1 Summary Daily Note Summary Improved transfer and gait but does have 1x episode of shooting pain causing him to lose balance needing MaxA+2 to maintain.
[2023-05-10] MEDS: CEFTRIAXONE 1,000 MG in 0.9 % SODIUM CHLORIDE 50 ML 100 MG IV (14:20)
[2023-05-10 16:29] LABS: Glucometer 220 mg/dL (74-106)
[2023-05-10 20:22] LABS: Glucometer 229 mg/dL (74-106)
[2023-05-10] MEDS: ACETAMINOPHEN 500 MG TABLET 1000 MG PO (20:22)
[2023-05-11] VITALS (10 sets, daily range): BP systolic 122–167; BP diastolic 76–99; PULSE 59–61; TEMP 36.4–36.7; O2SAT 91–95
[2023-05-11] MEDS: METHYLPREDNISOLONE SOD SUCC PF 40 MG/ML VIAL 60 MG IVP (05:17)
[2023-05-11] MEDS: HYDROMORPHONE HCL 0.5 MG/0.5 ML SYRINGE IV (05:17)
[2023-05-11 05:31] LABS: Basophils Percent Auto 0.1 % (0.2-2.0); Eosinophils Percent Auto 0.1 % (0.9-7.0); Hematocrit 48.2 % (42.0-54.0); Hemoglobin 15.8 g/dL (14.0-18.0); Immature Granulocytes Abs Auto 0.15 10^3/uL (0.00-0.03); Immature Granulocytes Pct Auto 0.8 % (0.0-0.5); Lymphocytes Absolute Auto 0.4 10^3/uL (1.2-3.8); Lymphocytes Percent Auto 1.8 % (20.5-60.0); Mean Corpuscular HGB Conc 32.8 g/dL (29.9-35.2); Mean Corpuscular Hemoglobin 29.8 pg (25.9-34.0); Mean Corpuscular Volume 90.9 fL (80.0-94.0); Monocytes Absolute Auto 0.2 10^3/uL (0.3-0.8); Monocytes Percent Auto 1.2 % (1.7-12.0); Neutrophils Absolute Auto 19.2 10^3/uL (1.4-6.5); Platelet Count 187 10^3/uL (150-450); Red Cell Distribution Width 15.3 % (11.0-15.0)
[2023-05-11 05:37] LABS: INR 2.63; Prothrombin Time 26.4 sec (9.0-11.6)
[2023-05-11 05:49] LABS: Alanine Aminotransferase 30 U/L (16-63); Albumin Level 2.7 g/dL (3.4-5.0); Alkaline Phosphatase 67 U/L (46-116); Anion Gap 13.2; Aspartate Amino Transferase 14 U/L (15-37); BUN Creatinine Ratio 32.1; Bilirubin Total 0.5 mg/dL (0.2-1.0); Carbon Dioxide 26.3 mmol/L (21.0-32.0); Chloride 105 mmol/L (98-107); Estimated GFR (African America >60 (>=60); Estimated GFR (Non-African Ame 51 (>=60); Globulin 2.6 g/dL; Glucose 172 mg/dL (74-106); Potassium 4.5 mmol/L (3.5-5.1); Sodium 140 mmol/L (136-145); Total Protein 5.3 g/dL (6.4-8.2)
[2023-05-11 07:41] LABS: Glucometer 149 mg/dL (74-106)
[2023-05-11] MEDS: SACUBITRIL/VALSARTAN 24 MG-26 MG TABLET 1 TAB PO (08:25)
[2023-05-11] MEDS: ATORVASTATIN CALCIUM 10 MG TABLET PO (08:26)
[2023-05-11] MEDS: OMEPRAZOLE 40 MG CAPSULE.DR PO (08:26)
[2023-05-11] MEDS: AMIODARONE HCL 200 MG TABLET 400 MG PO (08:26)
[2023-05-11] MEDS: METOPROLOL SUCCINATE 50 MG TAB.ER.24H PO (08:26)
[2023-05-11] MEDS: CANAGLIFLOZIN 100 MG TABLET 300 MG PO (08:26)
[2023-05-11] MEDS: WARFARIN SODIUM 4 MG TABLET 2 MG PO (08:26)
[2023-05-11] MEDS: GLIPIZIDE 5 MG TABLET PO (08:26)
[2023-05-11] MEDS: ORPHENADRINE 60 MG/ 2 ML VIAL IV ×2 (08:26→20:17)
[2023-05-11] MEDS: INSULIN ASPART 300 UNIT/3 ML PEN SUBQ ×4 (08:27→23:22)
--- NOTE | 2023-05-11 09:12 | PT.DAILY ---
Physical Therapy Daily Note PT Daily Note/Assess Start: 05/09/23 13:54 Freq: Status: Active Protocol: Document 05/11/23 08:59 [id number] (Rec: 05/11/23 09:12 [id number]) Physical Therapy Daily Note/Assessment Time In/Time Out Time In 07:27 Time Out 07:52 Pain In Pain Level 8 Pain Out Pain Level 8 Subjective Subjective Patient reports pain to R LB radiating down R LE. Patient received in bed and agreeable to participating with PT. Therapeutic Exercise Time Therapeutic Exercise Minutes (minutes) 10 Therapeutic Exercise Units 1 Therapeutic Exercise Treatment Therapeutic Exercise Treatment Supine ankle pumps/quad set/ glut sets, seated EOB marching , LAQ and hip ADD with pillow. Patient required therapeutic rest break b/w reps. secondary to pain to R LB/LE. Therapeutic Activity Time Therapeutic Activity Minutes (minutes) 12 Therapeutic Activity Units 1 Therapeutic Activity Treatment Bed Mobility Ability Minimum Assist,Maximum Assist Chair Transfer Ability Minimum Assist Therapeutic Activity Comments Bed mobility is MIN to MOD A, R LE is MOD A to move. Sit to stand to RW MIN A +1. Patient ambulated ~45 ft with RW for CGA to MIN A. Decreased step length on R noted. Patient experienced increased R LE pain requiring transfer into W /C. Patient requests to not walk any further this am. W/C to stand pivot to L side into chair at bedside. [facility] and nursing notified of patient placement, Tiara SHAH acknowledges. Total Physical Therapy Time Total Therapy Minutes 22 Total Physical Therapy Units 2 Summary Daily Note Summary Patient slow to task secondary to R LB & LE pain. Decreased R LE WB'ing in standing and walking due to pain. Pain to R LE decreased and limits ambulation distance this date. Patient requests to walk later in day, educated patient he will need to ask nursing for assistance. Patient acknowledges.
[2023-05-11 11:13] LABS: Glucometer 243 mg/dL (74-106)
--- NOTE | 2023-05-11 12:25 | P.PN_ITS ---
Progress Note: Subjective Subjective Interval history: Pain persisting, unsteady with his gait with ambulation even just short distances in the room. Exam Constitutional Vital Signs, click to edit/add: Last Vital Signs Temp 98.1 F 05/11/23 11:41 Pulse 60 05/11/23 11:41 Resp 16 05/11/23 11:41 BP 127/76 05/11/23 11:41 Pulse Ox 95 05/11/23 11:41 O2 Del Method Room Air 05/11/23 11:41 Documenting provider has reviewed patient's vital signs: yes Common normals: no apparent distress and oriented x3 General appearance: cooperative HENMI Common normals: normocephalic and head/scalp atraumatic Head and scalp: normocephalic and atraumatic Eye Common normals: conjunctivae normal and no scleral icterus Conjunctiva: conjunctiva(e) normal Respiratory Common normals: normal respiratory effort Effort & inspection: able to speak in complete sentences Auscultation: wheezes scattered wheezes Cardio Common normals: regular rate, S1 normal heart sound and S2 normal heart sound Rate: regular rate Heart sounds: S1 normal and S2 normal GI Common normals: Normal to inspection, nondistended, normoactive bowel sounds present, soft to palpation, non-tender and no hepatosplenomegaly Palpation: soft and no hepatosplenomegaly Back & Pelvis Common normals: CVA tenderness Extremity Common normals: no clubbing, cyanosis or edema (Poor ROM in the legs secondary to pain) Neuro Common normals: oriented x3, moves all extremities and no focal motor deficits Psych Common normals: mental status grossly normal, denies hallucinations, denies homicidal ideation and denies suicidal ideation Progress Note: Objective Labs Labs: Short CBC 05/11/23 Range/Units 04:54 WBC 20.0 H (4.0-11.0) 10^3/uL Hgb 15.8 (14.0-18.0) g/dL Hct 48.2 (42.0-54.0) % Plt Count 187 (150-450) 10^3/uL BMP 05/11/23 04:54 Sodium 140 Potassium 4.5 Chloride 105 Carbon Dioxide 26.3 BUN 44.0 H Creatinine 1.37 H Glucose 172 H Calcium 9.0 Liver Function 05/11/23 Range/Units 04:54 Total Bilirubin 0.5 (0.2-1.0) mg/dL AST 14 L (15-37) U/L ALT 30 (16-63) U/L Alkaline Phosphatase 67 (46-116) U/L Albumin 2.7 L (3.4-5.0) g/dL Progress Note: A&P Assessment and Plan (1) Unable to ambulate: Plan Hypertension secondary to intractable low back pain-physical therapy work with patient, patient unsteady on his gait and not safe for discharge to home, this has been this way since the admission. Uncontrolled hypertension-adjust medications again today Hematuria-kidney and bladder ultrasound are negative Diabetes mellitus-insulin sliding scale, unable to use high-dose steroids secondary to diabetes Iron deficiency anemia-monitor as an outpatient Coumadin toxicity-check levels daily Inpatient status: Due to patient's uncontrolled hypertension, hematuria, possible source of infection resulting in his back pain patient was changed to inpatient status from the beginning of this admission. Patient in high need of rehab for patient safety. Depending on symptom progression possible discharge to rehab tomorrow ?
[2023-05-11] MEDS: METHYLPREDNISOLONE SOD SUCC PF 40 MG/ML VIAL IVP ×2 (12:47→20:16)
[2023-05-11] MEDS: 0.9 % SODIUM CHLORIDE 250 ML 10 ML IV (15:08)
[2023-05-11] MEDS: ACETAMINOPHEN 500 MG TABLET 1000 MG PO ×2 (15:09→23:48)
[2023-05-11] MEDS: CEFTRIAXONE 1,000 MG in 0.9 % SODIUM CHLORIDE 50 ML 100 MG IV (15:09)
[2023-05-11 16:17] LABS: Glucometer 200 mg/dL (74-106)
[2023-05-11 20:05] LABS: Glucometer 151 mg/dL (74-106)
[2023-05-11] MEDS: SACUBITRIL/VALSARTAN 24 MG-26 MG TABLET 2 TAB PO (20:07)
[2023-05-11 23:04] LABS: Glucometer 161 mg/dL (74-106)
[2023-05-12 02:37] VITALS: BP 134/76; PULSE 60; TEMP 36.4; O2SAT 91
[2023-05-12] MEDS: METHYLPREDNISOLONE SOD SUCC PF 40 MG/ML VIAL IVP ×2 (03:00→08:25)
[2023-05-12 05:55] LABS: Hematocrit 51.9 % (42.0-54.0); Hemoglobin 17.1 g/dL (14.0-18.0); Mean Corpuscular HGB Conc 32.9 g/dL (29.9-35.2); Mean Corpuscular Hemoglobin 29.7 pg (25.9-34.0); Mean Corpuscular Volume 90.3 fL (80.0-94.0); Platelet Count 200 10^3/uL (150-450); Red Blood Count 5.75 10^6/uL (4.70-6.10); Red Cell Distribution Width 15.4 % (11.0-15.0); White Blood Count 22.4 10^3/uL (4.0-11.0)
[2023-05-12 06:01] LABS: INR 2.95; Prothrombin Time 29.4 sec (9.0-11.6)
[2023-05-12 06:18] LABS: Lymphocytes Absolute Manual 0.44 10^3/uL (1.20-3.80); Monocytes Absolute Manual 0.22 10^3/uL (0.30-0.80)
[2023-05-12 06:22] LABS: Alanine Aminotransferase 28 U/L (16-63); Albumin Globulin Ratio 1.1; Albumin Level 2.8 g/dL (3.4-5.0); Alkaline Phosphatase 68 U/L (46-116); Anion Gap 13.9; Aspartate Amino Transferase 13 U/L (15-37); BUN Creatinine Ratio 39.5; Bilirubin Total 0.9 mg/dL (0.2-1.0); Carbon Dioxide 25.5 mmol/L (21.0-32.0); Chloride 105 mmol/L (98-107); Estimated GFR (African America >60 (>=60); Estimated GFR (Non-African Ame >60 (>=60); Globulin 2.6 g/dL; Glucose 149 mg/dL (74-106); Potassium 4.4 mmol/L (3.5-5.1); Sodium 140 mmol/L (136-145); Total Protein 5.4 g/dL (6.4-8.2)
[2023-05-12 07:30] LABS: Glucometer 128 mg/dL (74-106)
[2023-05-12 07:46] VITALS: BP 121/79; PULSE 60; TEMP 36.7; O2SAT 90
[2023-05-12] MEDS: SACUBITRIL/VALSARTAN 24 MG-26 MG TABLET 2 TAB PO (08:25)
[2023-05-12] MEDS: AMIODARONE HCL 200 MG TABLET 400 MG PO (08:25)
[2023-05-12] MEDS: ATORVASTATIN CALCIUM 10 MG TABLET PO (08:25)
[2023-05-12] MEDS: GLIPIZIDE 5 MG TABLET PO (08:25)
[2023-05-12] MEDS: CANAGLIFLOZIN 100 MG TABLET 300 MG PO (08:25)
[2023-05-12] MEDS: ORPHENADRINE 60 MG/ 2 ML VIAL IV (08:25)
[2023-05-12] MEDS: WARFARIN SODIUM 4 MG TABLET 2 MG PO (08:26)
[2023-05-12] MEDS: METOPROLOL SUCCINATE 50 MG TAB.ER.24H 100 MG PO (08:28)
[2023-05-12] MEDS: OMEPRAZOLE 40 MG CAPSULE.DR PO (08:28)
[2023-05-12] MEDS: PREDNISONE 20 MG TABLET 50 MG PO (10:15)
[2023-05-12] MEDS: LEVOFLOXACIN 750 MG TABLET PO (10:15)
--- NOTE | 2023-05-12 11:34 | P.DS_ITS ---
DS: Providers Provider Date of admission: 05/09/23 14:30 Primary care physician: SILVIO AGUILA Consults: 05/09/23 12:13 Consult to Pharmacy Routine Consulting Provider: Reason for consultation: Please [place] me when Med Rec is Updated Has provider been notified: No Consult to [employer] Routine Reason for consult:: [facility] Occupational Therapy Eval and Treat Routine Reason for consultation: Only if needed for Rehab Has provider been notified: No Physical Therapy Eval and Treat Routine Reason for consultation: Eval and Treat Has provider been notified: No DS: Diagnosis Discharge Diagnosis (1) Unable to ambulate: Assessment and plan: Hypertension secondary to intractable low back pain-physical therapy work with patient, patient unsteady on his gait and not safe for discharge to home, this has been this way since the admission. Uncontrolled hypertension-adjust medications again today Hematuria-kidney and bladder ultrasound are negative Diabetes mellitus-insulin sliding scale, unable to use high-dose steroids secondary to diabetes Iron deficiency anemia-monitor as an outpatient Coumadin toxicity-check levels daily Inpatient status: Due to patient's uncontrolled hypertension, hematuria, possible source of infection resulting in his back pain patient was changed to inpatient status from the beginning of this admission. Patient in high need of rehab for patient safety. Depending on symptom progression possible discharge to rehab tomorrow ? DS: Summary Hospital Course Hospital Course: Patient admitted with intractable low back pain. Also found to have significant leukocytosis concerning for pyelonephritis. Ultrasound did not show any obstruction. Patient placed on antibiotics and steroids and physical therapy and muscle relaxers. His pain is improved but not to the point that he can ambulate safely. His white blood cell count is persistently elevated. Cultures are negative. Will change antibiotics today to Levaquin orally. Otherwise keep with his regular medications. Elevation in white blood cell count could be steroid related but he had that prior to the steroids being used as well. Medically stable for discharge for rehab. Time Spent with Patient Time attestation: Total time spent providing and/or coordinating discharge services: Time spent: greater than 30 minutes Exam Constitutional Vital Signs, click to edit/add: Last Vital Signs Temp 98.0 F 05/12/23 07:46 Pulse 60 05/12/23 07:46 Resp 18 05/12/23 07:46 BP 121/79 05/12/23 07:46 Pulse Ox 90 L 05/12/23 07:46 O2 Del Method Room Air 05/12/23 07:46 Documenting provider has reviewed patient's vital signs: yes Common normals: no apparent distress and oriented x3 General appearance: cooperative HENMT Common normals: normocephalic and head/scalp atraumatic Head and scalp: normocephalic and atraumatic Eye Common normals: conjunctivae normal and no scleral icterus Conjunctiva: conjunctiva(e) normal Respiratory Common normals: normal respiratory effort Effort & inspection: able to speak in complete sentences Auscultation: wheezes scattered wheezes Cardio Common normals: regular rate, S1 normal heart sound and S2 normal heart sound Rate: regular rate Heart sounds: S1 normal and S2 normal GI Common normals: Normal to inspection, nondistended, normoactive bowel sounds present, soft to palpation, non-tender and no hepatosplenomegaly Palpation: soft and no hepatosplenomegaly Back & Pelvis Common normals: CVA tenderness Extremity Common normals: no clubbing, cyanosis or edema (Poor ROM in the legs secondary to pain) Neuro Common normals: oriented x3, moves all extremities and no focal motor deficits Psych Common normals: mental status grossly normal, denies hallucinations, denies homicidal ideation and denies suicidal ideation DS: Data Data Completed and Pending Labs on day of discharge: Labs from last 24 hours 05/12/23 05/12/23 05/12/23 07:28 04:45 04:44 WBC 22.4 H RBC 5.75 Hgb 17.1 Hct 51.9 MCV 90.3 MCH 29.7 MCHC 32.9 RDW 15.4 H Plt Count 200 MPV 11.0 Seg Neuts % (Manual) 96.0 Lymphocytes % (Manual) 2.0 L Monocytes % (Manual) 1.0 L Eosinophils % (Manual) 0.0 L Basophils % (Manual) 0.0 L Neutrophils # (Manual) 21.50 H Lymphocytes # (Manual) 0.44 L Monocytes # (Manual) 0.22 L Eosinophils # (Manual) 0.00 Basophils # (Manual) 0.00 PT 29.4 H INR 2.95 Sodium 140 Potassium 4.4 Chloride 105 Carbon Dioxide 25.5 Anion Gap 13.9 BUN 47.0 H Creatinine 1.19 Est GFR ( Amer) >60 Est GFR (Non-Af Amer) >60 BUN/Creatinine Ratio 39.5 Glucose 149 H Calcium 9.0 Total Bilirubin 0.9 AST 13 L ALT 28 Alkaline Phosphatase 68 Total Protein 5.4 L Albumin 2.8 L Globulin 2.6 Albumin/Globulin Ratio 1.1 POC Glucose 128 H 05/11/23 05/11/23 05/11/23 23:02 20:04 16:15 WBC RBC Hgb Hct MCV MCH MCHC RDW Plt Count MPV Seg Neuts % (Manual) Lymphocytes % (Manual) Monocytes % (Manual) Eosinophils % (Manual) Basophils % (Manual) Neutrophils # (Manual) Lymphocytes # (Manual) Monocytes # (Manual) Eosinophils # (Manual) Basophils # (Manual) PT INR Sodium Potassium Chloride Carbon Dioxide Anion Gap BUN Creatinine Est GFR ( Amer) Est GFR (Non-Af Amer) BUN/Creatinine Ratio Glucose Calcium Total Bilirubin AST ALT Alkaline Phosphatase Total Protein Albumin Globulin Albumin/Globulin Ratio POC Glucose 161 H 151 H 200 H Discharge Plan Discharge Disposition: Xfer SNF Discharge Medications: New prednisone 10 mg tablet 50 mg PO DAILY Qty: 47 0RF Rx Instructions: 5/day for 3 days. 4/day for 3 days, 3/day for 3 days, 2/day for 3 days, 1/day for 3 days, 1/2 /day for 4 days warfarin [Jantoven] 4 mg Tablet 2 mg PO DAILY Qty: 30 11RF levofloxacin 750 mg Tablet 750 mg PO QD Qty: 10 0RF insulin aspart U-100 [Novolog FlexPen U-100 Insulin] 100 unit/mL (3 mL) Insulin Pen 3 - 21 unit subcut ACHS Qty: 15 11RF Entresto 24-26 mg Tablet 2 tab PO BID Qty: 60 11RF Continued amiodarone 200 mg tablet 400 mg PO DAILY dapagliflozin propanediol [Farxiga] 10 mg tablet 10 mg PO QAM metoprolol succinate 50 mg tablet extended release 24 hr 50 mg PO DAILY pantoprazole 40 mg tablet,delayed release (DR/EC) 40 mg PO DAILY albuterol sulfate 90 mcg/actuation HFA aerosol inhaler 2 inh inhalation Q6H PRN (Reason: shortness of breath or wheezing) Qty: 6.7 0RF atorvastatin 10 mg tablet 10 mg PO DAILY glipizide 5 mg tablet 5 mg PO DAILY Rx Instructions: 30 MIN BEFORE BREAKFAST bisacodyl [Gentle Laxative (bisacodyl)] 10 mg suppository 10 mg KS Q24H PRN (Reason: constipation) Discontinued warfarin 4 mg tablet 4 mg PO DAILY Rx Instructions: DIRECTED Entresto 24-26 mg tablet 1 tab PO BID Print Language: Faroese Forms: Portal Instructions
[2023-05-12 11:46] LABS: Glucometer 227 mg/dL (74-106)
[2023-05-12] MEDS: INSULIN ASPART 300 UNIT/3 ML PEN SUBQ (11:47)
[2023-05-12 11:50] VITALS: O2SAT 93
[2023-05-12] MEDS: ACETAMINOPHEN 500 MG TABLET 1000 MG PO (13:12)
== END 2023-05-12 13:28 | DRG 690 ==
LOC: ER 09:45 → MS 10:07
PROVIDERS: Admitting Provider Family Medicine; Emergency Provider Emergency Medicine; PCP Nurse Practitioner Family; Visit Provider Family Medicine
DX: N12 Tubulo-interstitial nephritis, not specified as acute or chronic (principal); I10 Essential (primary) hypertension; M54.50 Low back pain, unspecified; R26.81 Unsteadiness on feet; E78.5 Hyperlipidemia, unspecified; J45.909 Unspecified asthma, uncomplicated; D72.829 Elevated white blood cell count, unspecified; T38.0X5A Adverse effect of glucocorticoids and synthetic analogues, initial encounter; E11.9 Type 2 diabetes mellitus without complications; D50.9 Iron deficiency anemia, unspecified; R79.1 Abnormal coagulation profile; T45.515A Adverse effect of 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, initial encounter; Z95.810 Presence of automatic (implantable) cardiac defibrillator; Z85.038 Personal history of other malignant neoplasm of large intestine; Z86.16 Personal history of COVID-19; Z82.49 Family history of ischemic heart disease and other diseases of the circulatory system; Z79.84 Long term (current) use of oral hypoglycemic drugs; Z79.01 Long term (current) use of 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; Z79.899 Other long term (current) drug therapy; Z88.0 Allergy status to penicillin
CPT/HCPCS: 36415; 72131; 76770; 80053; 81001; 82948; 85007; 85025; 85027; 85610; 85652; 86140; 87086; 94667; 94668; 94761; 96365; 96366; 96372; 96375; 96376; 97110; 97161; 97165; 97530; 97535; 99285; G0328; G0463; J1170; J2920; J2930

== ENCOUNTER 2023-05-13 03:11 | Outpatient (RCR) | payer MEDICARE, OTHER, SELFPAY | END 2023-06-11 17:42 | disposition home or self-care (01) | LOC: MM 03:11 | PROVIDERS: PCP Nurse Practitioner Family; Visit Provider Internal Medicine | DX: Z51.81 Encounter for therapeutic drug level monitoring (principal); Z79.01 Long term (current) use of 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 | CPT/HCPCS: 85610; G0463 ==

== ENCOUNTER 2023-06-05 15:19 | Outpatient (RCR) | payer MEDICARE, OTHER, SELFPAY | END 2023-07-13 16:03 | disposition home or self-care (01) | LOC: PT 15:19 | PROVIDERS: PCP Nurse Practitioner Family; Visit Provider Nurse Practitioner Family | DX: M54.9 Dorsalgia, unspecified (principal); R26.2 Difficulty in walking, not elsewhere classified; M54.16 Radiculopathy, lumbar region | CPT/HCPCS: 97012; 97110; 97113; 97140; 97163 ==

== ENCOUNTER 2023-06-12 04:32 | Outpatient (RCR) | payer MEDICARE, OTHER, SELFPAY | END 2023-07-12 11:39 | disposition home or self-care (01) | LOC: MM 04:32 | PROVIDERS: PCP Nurse Practitioner Family; Visit Provider Internal Medicine | DX: Z51.81 Encounter for therapeutic drug level monitoring (principal); Z79.01 Long term (current) use of 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; I48.20 Chronic atrial fibrillation, unspecified | CPT/HCPCS: 85610; G0463 ==

== ENCOUNTER 2023-07-15 00:10 | Outpatient (RCR) | payer MEDICARE, OTHER, SELFPAY | END 2023-08-09 10:11 | disposition home or self-care (01) | LOC: MM 00:10 | PROVIDERS: PCP Nurse Practitioner Family; Visit Provider Internal Medicine | DX: Z51.81 Encounter for therapeutic drug level monitoring (principal); Z79.01 Long term (current) use of 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 | CPT/HCPCS: 85610; G0463 ==

== ENCOUNTER 2023-07-31 08:49 | Outpatient (OUT) | payer MEDICARE, OTHER, SELFPAY ==
--- OUTSIDE RECORDS SUMMARY | 2023-07-31 09:01 | XMS_ITS | CCD ---
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 Name Role Phone MARIO ALBERTO SARAVIA Unavailable Unavailab Lakia May Primary Care Physician Josephine Zambrano Unavailable Unavailable Aggie [place] Unavailable Unavailable DR LAKIA DYSON Primary Care Unavailable CYNTHIA AGUILA Attending Unavailable CYNTHIA AGUILA Admitting Unavailable DR LAKIA DYSON Primary Care Unavailable CYNTHIA AGUILA Attending Unavailable CYNTHIA AGUILA Consulting Unavailable CYNTHIA AGUILA Admitting Unavailable Cynthia Aguila CNP Primary Care Provider Lakia Dyson MD Unavailable Cynthia Aguila CNP Primary Care Provider NANCI MILLER Attending Unavailable CYNTHIA AGUILA Referring Unavailable CYNTHIA AGUILA Primary Care Unavailable JESSICA ALCARAZ Referring Unavailable CYNTHIA AGUILA Primary Care Unavailable NANCI MILLER Attending Unavailable NORI PRATT Attending Unavailable NORI PRATT Attending Unavailable HAYLEY CLAYTON Referring Unavailable HAYLEY CLAYTON Referring Unavailable ADRIANA KIRKLAND Referring Unavailab le YEARTY, DEANNA Referring Unavailable ADRIANA KIRKLAND Referring Unavailab NORI Linares Attending Unavailable NORI PRATT Attending Unavailable ADRIANA KIRKLAND Referring Unavailab le ANABELA, JESUS Referring Unavailable ANABELA, JESUS Referring Unavailable MERCEDES SUNSHINE Referring Unavailable ANABELA, JESUS Referring Unavailable SHANTELL, MARTIN Referring Unavailable ADRIANA KIRKLAND Referring Unavailab le SHANTELL, MARTIN Referring Unavailable GANADRIANA RODRIGUEZ Attending Unavailab le ANABELA, JESUS Admitting Unavailable ADRIANA KIRKLAND Consulting Unavailab le SHANTELL, MARTIN Referring Unavailable MATILDE, HAYLEY Referring Unavailable GANGWANI, ADRIANA SANTOS Referring Unavailab le GANGWANI, ADRIANA SANTOS Referring Unavailab le MATILDE, HAYLEY Referring Unavailable GANGWANI, ADRIANA SANTOS Referring Unavailab le YEARTYDEANNA Referring Unavailable MATILDE, HAYLEY Referring Unavailable GANGWANI, ADRIANA SANTOS Referring Unavailab le GANGWANI, ADRIANA SANTOS Referring Unavailab le MATILDE, HAYLEY Referring Unavailable MOUKARBELCHARLEEN Referring Unavailable GANGWANI, ADRIANA SANTOS Referring Unavailab le MATILDE, AHYLEY Referring Unavailable SHANTELL, MARTIN Referring Unavailable Adamowicz, Dougie Admitting Unavailable Adamowicz, Dougie Attending Unavailable Adamowicz, Dougie Referring Unavailable Adamowicz, Dougie Admitting Unavailable Adamowicz, Dougie Attending Unavailable WILLIS, ELEAZAR Admitting Unavailable WILLIS, ELEAZAR Attending Unavailable Adamowicz, Dougie Admitting Unavailable Adamowicz, Dougie Attending Unavailable Adamowicz, Dougie Attending Unavailable Adamowicz, Dougie Attending Unavailable Mouchli Mohamad A. Admitting Unavailable Mouchli, Mohamad A. Referring Unavailable Mouchli, Mohamad A. Attending Unavailable WILLIS, ELEAZAR Attending Unavailable WILLIS, ELEAZAR Admitting Unavailable Mouchli, Mohamad A. Admitting Unavailable Mouchli, Mohamad A. Attending Unavailable Mouchli, Mohamad A. Attending Unavailable Allergies Allergy Classification Reported Allergen(s) Allergy Type Date of Onset Reaction(s) Facility Penicillins (antibiotic) (1 source) Penicillins; 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: [penicillins] Drug Allergy [facility] Repository (20 sources) Penicillins; 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: [PENICILLINS] Propensity to adverse reactions to drug (disorder) 6 Unknown [facility] Repository (19 sources) RAGWEED; 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: [RAGWEED] Propensity to adverse reactions to drug (disorder) 6 Dyspnea (finding), Shortness of Breath [facility] Repository (1 source) house dust allergenic extract; 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: [HOUSE DUST] Drug Allergy 3 [facility] Repository Medications Current Medications Medication Drug Class(es) Dates Sig (Normalized) Sig (Original) acetaminophen 500 mg oral tablet (3 sources) Start: 08-19-2020 take 2 tablets by mouth every six hours as needed acetaminophen (TYLENOL) 500 mg tablet Take 2 tablets by mouth every 6 hours as needed for pain. 0 08/19/2020 Active Comment on above: Take 2 tablets by mo [facility] every 6 hours as needed for pain. albuterol 0.833 mg/ml / ipratropium bromide 0.167 mg/ml inhalation solution (3 sources) Anticholinergic, beta2-Adrenergic Agonist Start: 08-19-2020 take 3 mL by inhalation every four hours as needed ipratropium-albuter ol (DUONEB) 0.5 mg-3 mg(2.5 mg base)/3 mL nebu Inhale 3 mL as instructed every 4 hours as needed for wheezing/shortness of breath. 0 08/19/2020 Active Comment on above: Inhale 3 mL as instr ucted every 4 hours as needed for wheezing/shortness of breath. albuterol HFA 90 mcg/inh MDI (20 sources) Start: 05-13-2018 take 2 puff(s) by inhalation four times daily for wheezing albuterol HFA 90 mcg/inh MDI 2 puff(s), Inhalation, QID for wheezing, 6.7 gram, Refill(s) 0, [facility]/pharmacy #[id number] Start Date: 05/13/18 Status: Ordered amLODIPine 2.5 mg oral tablet (20 sources) Dihydropyridine Calcium Channel Darryl Start: 11-22-2017 take 1 tablet by mouth once daily amLODIPine 2.5 mg Tab 2.5 mg = 1 tab(s), Oral, Daily, # 30 tab(s), Refills(s) 0, High blood pressure Start Date: 11/22/17 Status: Ordered Comment on above: Take 1 tablet by paula once daily. apixaban 2.5 mg oral tablet (20 sources) Factor Xa Inhibitor Start: 08-29-2018 take 1 tablet by mouth twice daily Eliquis 2.5 mg oral tablet 2.5 mg = 1 tab(s), Oral, BID, # 60 tab(s), Refills(s) 5, Pharmacy: [facility]/pharmacy #[id number] Start Date: 08/29/18 Status: Ordered atorvastatin 10 mg oral tablet (20 sources) HMG-CoA Reductase Inhibitor Start: 11-22-2017 take 1 tablet by mouth once daily atorvastatin 10 mg Tab 10 mg = 1 tab(s), Oral, Daily, # 30 tab(s), Refills(s) 0, High cholesterol Start Date: 11/22/17 Status: Ordered Comment on above: Take 1 tablet by paula once daily. bisacodyl 10 mg rectal suppository (9 sources) Stimulant Laxative Start: 04-15-2023 take 10 mg rectal route once daily as needed for constipation bisacodyl 10 mg Supp 10 mg = 1 supp, Rectal, Daily, PRN for constipation, # 12 supp, Refills(s) 0, Pharmacy: [facility]/pharmacy #[id number], 167, cm, 04/15/23 12:19:00 EST, Height/Length Dosing, 89, kg, 04/15/23 12:19:00 EST, Weight Dosing Start Date: 04/15/23 Status: Ordered calcium carbonate 500 mg chewable tablet (3 sources) Start: 08-19-2020 take 500 mg by mouth every eight hours as needed calcium carbonate (TUMS) 500 mg chew Take 1 tablet by mouth three times daily as needed (GERD). 0 08/19/2020 Active Comment on above: Take 1 tablet by paula three times daily as needed (GERD). dapagliflozin 5 mg oral tablet (5 sources) Sodium-Glucose Cotransporter 2 Inhibitor Start: 06-27-2023 take 1 tablet by mouth once daily Farxiga 5 mg oral tablet 5 mg = 1 tab(s), Daily, Refills(s) 0 Start Date: 06/27/23 Status: Ordered docusate sodium 100 mg oral capsule (3 sources) Start: 08-19-2020 take 1 capsule by mouth twice daily docusate sodium (COLACE) 100 mg capsule Take 1 capsule by mouth twice daily. While taking narcotic pain medication 0 08/19/2020 Active Comment on above: Take 1 capsule by mo [facility] twice daily. While taking narcotic pain medication 1 ml enoxaparin sodium 100 mg/ml prefilled syringe (3 sources) Low Molecular Weight Heparin Start: 08-19-2020 inject 90 mg by subcutaneous injection every twenty-four hours enoxaparin (LOVENOX) 100 mg/mL syrg Inject 0.9 mL subcutaneously q 24 HR. 0 08/19/2020 Active Comment on above: Inject 0.9 mL subcut aneously q 24 HR. glipiZIDE 5 mg oral tablet (20 sources) Sulfonylurea Start: 07-13-2019 take 1 tablet [...] Take 2.5 mg by mouth once daily. 12 hr guaiFENesin 600 mg extended release oral tablet (3 sources) Start: 08-20-19 21 take 1 tablet by mouth every twelve hours as needed for congestion guaiFENesin (MUCINEX) 600 mg 12 hr tablet Take 1 tablet by mouth every 12 hours as needed (help with congestion). 0 08/19/2020 Active Comment on above: Take 1 tablet by paula th every 12 hours as needed (help with congestion). Immodium A-D 2 mg Cap (15 sources) Start: 04-05-19 18 take 1 capsule by mouth once Immodium A-D 2 mg Cap 2 mg = 1 cap(s), Oral, QIDACHS, pt takes scheduled unless constipated, Refills(s) 0, Diarrhea Start Date: 04/05/17 Status: Ordered lisinopril 2.5 mg oral tablet (20 sources) Angiotensin Converting Enzyme Inhibitor Start: 05-13-19 19 take 1 tablet by mouth once daily lisinopril 2.5 mg Tab 2.5 mg = 1 tab(s), Oral, Daily, Refills(s) 0, High blood pressure Start Date: 05/12/18 Status: Ordered Comment on above: Take 1 tablet by paula th once daily. loperamide hydrochloride 2 mg oral capsule (8 sources) Opioid Agonist Start: 04-05-19 18 take 1 capsule by mouth once Immodium [...] M OUTH BEFORE MEALS AND AT BEDTIME magnesium hydroxide 80 mg/ml oral suspension (3 sources) Start: 08-20-19 take 30 mL by mouth once daily as needed magnesium hydroxide (MOM) 400 mg/5 mL suspension Take 30 mL by mouth once daily as needed. 0 08/19/2020 Active Comment on above: Take 30 mL by mouth once daily as needed. NuLYTELY Carrillo oral powder for reconstitution (1 source) Start: 07-20-19 NuLYTELY Carrillo oral powder for reconstitution See Instructions, 1 EA, Refill(s) 0, Prior to colonoscopy., [facility]/pharmacy #[id number], 167.6, cm, 07/19/21 8:57:00 EDT, Height/Length Dosing, 93, kg, 07/19/21 8:57:00 EDT, Weight Dosing Start Date: 07/19/21 Status: Ordered oxyCODONE hydrochloride 5 mg oral tablet (3 sources) Opioid Agonist Start: 08-20-19 take 1 tablet by mouth every six hours as needed oxyCODONE IR (ROXICODONE) 5 mg immediate release tablet Take 1 tablet by mouth every 6 hours as needed. 0 08/19/2020 Active Comment on above: Take 1 tablet by paula th every 6 hours as needed. pantoprazole 40 mg extended release oral tablet (20 sources) Proton Pump Inhibitor Start: 02-18-19 take 40 mg by mouth once daily [...] (6 AM). pioglitazone 15 mg oral tablet (20 sources) Peroxisome Proliferator Receptor alpha Agonist, Peroxisome Proliferator Receptor gamma Agonist, Thiazolidinedione Start: 019 take 1 tablet by mouth once daily pioglitazone 15 mg Tab 15 mg = 1 tab(s), Oral, Daily, Refills(s) 0, Blood glucose Start Date: 05/12/18 Status: Ordered polyethylene glycol 3350 16620 mg powder for oral solution (17 sources) Osmotic Laxative Start: polyethylene glycol 3350 Oral Pwdr for Recon 17 gram, Oral, Daily, PRN Constipation, dissolve in water before taking, Refills(s) 0 Start Date: 05/12/18 Status: Ordered polyethylene glycol 3350 Oral Pwdr for Recon (3 sources) Start: polyethylene glycol 3350 Oral Pwdr for Recon 17 gram, Oral, Daily, PRN Constipation, dissolve in water before taking, Refills(s) 0 Start Date: 05/12/18 Status: Ordered predniSONE 10 mg oral tablet (20 sources) Start: predniSONE 10 mg Tab See Instructions, Oral 6 tabs for 1 day,5 tabs for 1 day,4 tabs for 1 day,3 tabs for 1 day,2 tabs for 1 day,1 tab for 1 day, # 21 tab(s), Refills(s) 0, Pharmacy: [facility]/pharmacy #[id number] Start Date: 05/13/18 Status: Ordered psyllium 525 mg oral capsule (7 sources) Start: End: take 5 capsules by mouth once daily Metamucil 525 mg oral capsule 2,625 mg = 5 cap(s), Oral, Daily, X 90 day(s), # 450 cap(s), Refills(s) 3, Pharmacy: [facility]/pharmacy #[id number], 167.6, cm, 06/27/22 8:28:00 EDT, Height/Length Dosing, 94.9, kg, 06/27/22 8:28:00 EDT, Weight Dosing Start Date: 06/27/22 Stop Date: 06/22/23 Status: Ordered sacubitril 24 mg / valsartan 26 mg oral tablet (5 sources) Angiotensin 2 Receptor Darryl Start: take 1 tablet by mouth twice daily Entresto 24 mg-26 mg oral tablet 1 tab(s), Oral, BID, Refill(s) 0 Start Date: 06/27/23 Status: Ordered Senna Leaves (9 sources) Start: 03-04-2 024 Senna 8.6 mg oral tablet 17.2 mg, 2 tab(s), Oral, BID for constipation, 100 tab(s), Refill(s) 4, [facility]/pharmacy #[id number], 167, cm, 04/15/23 12:19:00 EST, Height/Length Dosing, 89, kg, 04/15/23 12:19:00 EST, Weight Dosing Start Date: 04/15/23 Status: Ordered warfarin sodium 4 mg oral tablet (20 sources) Vitamin K Antagonist Start: 019 take 1 tablet by mouth once Coumadin 4 mg Tab 4 mg = 1 tab(s), Oral, As Directed, as directed, per INR results, # 90 tab(s), Refills(s) 0, Pharmacy: [facility]/pharmacy #[id number], 167.6, cm, 01/02/19 13:46:00 EST, Height/Length Measured, 95.8, kg, 01/02/19 13:46:00 EST, Weight Measured Start Date: 04/14/19 Status: Ordered Comment on above: Take 1 tablet by paula th daily as directed. Problems Active Problems Problem Classification Problem Date Documented Date Episodic/Chronic Abdominal pain (1 source) Abdominal tenderness; 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: [Abdominal tenderness, unspecified site] Onset: 4 Episodic Asthma (2 sources) Mild intermittent asthma, uncomplicated; 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: [Mild intermittent asthma, uncomplicated] Onset: 3 Chronic Cancer of colon (20 sources) Carcinoma of colon, stage I 04-05-2017 Chronic Cancer of colon (1 source) History of malignant neoplasm of colon; 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: [Personal history of other malignant neoplasm of large intestine] Onset: 2 Episodic Cancer of rectum and anus (3 sources) Malignant tumor of rectosigmoid junction; 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: [Malignant neoplasm of rectosigmoid junction] Onset: 6 07-25-2016 Chronic Cancer of rectum and anus (20 sources) History of malignant neoplasm of rectum; 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: [Personal history of other malignant neoplasm of rectum, rectosigmoid junction, and anus] Onset: 2 Episodic Cardiac dysrhythmias (2 sources) Paroxysmal atrial fibrillation; 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: [Paroxysmal atrial fibrillation] Onset: 3 Chronic Chronic kidney disease (6 sources) Chronic kidney disease; 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: [Chronic kidney disease, unspecified] Onset: 6 03-11-2016 Chronic Coagulation and hemorrhagic disorders (20 sources) Hypercoagulability state; 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] Onset: 6 11-14-2020 Chronic Conduction disorders (2 sources) Presence of automatic (implantable) cardiac defibrillator; 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: [Presence of automatic (implantable) cardiac defibrillator] Onset: 3 Chronic Congestive heart failure; nonhypertensive (9 sources) Chronic systolic heart failure; 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: [Chronic systolic (congestive) heart failure] Onset: 9 10-10-2018 Chronic Coronary atherosclerosis and other heart disease (7 sources) Calcification of coronary artery; 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: [Atherosclerotic heart disease of [place] coronary artery without angina pectoris] Onset: 9 01-02-2019 Chronic Diabetes mellitus without complication (3 sources) Type 2 diabetes mellitus without complication; 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: [Type 2 diabetes mellitus without complications] Onset: 6 03-16-2016 Chronic Diverticulosis and diverticulitis (18 sources) Diverticula of intestine; 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: [Diverticulosis of intestine, part unspecified, without perforation or abscess without bleeding] Onset: 2 Chronic Esophageal disorders (20 sources) Gastroesophageal reflux disease without esophagitis; 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: [Gastro-esophageal reflux disease without esophagitis] Onset: 2 Chronic Essential hypertension (3 sources) Essential hypertension; 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: [Essential (primary) hypertension] Onset: 6 07-25-2016 Chronic Hemorrhoids (17 sources) Hemorrhoids; 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: [Unspecified hemorrhoids] Onset: 2 Episodic Hypertension with complications and secondary hypertension (4 sources) Hypertensive chronic kidney disease with stage 5 chronic kidney disease or end stage renal disease; 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: [Hypertensive heart disease with heart failure] Onset: 3 Chronic Other aftercare (2 sources) Drug monitoring done; 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: [Encounter for therapeutic drug level monitoring] Episodic Other and unspecified benign neoplasm (17 sources) Polyp of colon; 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: [Polyp of colon] Onset: 2 Episodic Other and unspecified benign neoplasm (14 sources) History of polyp of colon; 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: [Personal history of colonic polyps] Onset: 3 Episodic Other gastrointestinal disorders (20 sources) Dysphagia; 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: [Dysphagia, unspecified] Onset: 2 Episodic Other gastrointestinal disorders (2 sources) Altered bowel function; 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: [Change in bowel habit] Onset: 2 Episodic Other gastrointestinal disorders (18 sources) Alteration in bowel elimination 07-19-2021 Episodic Other gastrointestinal disorders (1 source) Constipation, unspecified; 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: [Constipation, unspecified] Onset: 3 Episodic Other gastrointestinal disorders (2 sources) Swollen abdomen; 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: [Abdominal distension (gaseous)] Onset: 3 Episodic Other gastrointestinal disorders (14 sources) Abdominal bloating; 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: [Abdominal distension (gaseous)] 05-17-2022 Episodic Other gastrointestinal disorders (12 sources) Constipation 05-17-2022 Episodic Other gastrointestinal disorders (1 source) Fecal incontinence with fecal urgency; 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: [Full incontinence of feces] 06-25-2023 Episodic Other gastrointestinal disorders (1 source) Constipation alternates with diarrhea; 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: [Other specified symptoms and signs involving the digestive system and abdomen] 06-25-2023 Episodic Other gastrointestinal disorders (1 source) Other specified symptoms and signs involving the digestive system and abdomen; 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: [Other symptoms involving digestive system] 06-25-2023 Episodic Other nutritional; endocrine; and metabolic disorders (1 source) Metabolic disease; 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: [Other specified metabolic disorders] Onset: 4 Chronic Other nutritional; endocrine; and metabolic disorders (3 sources) Hypoalbuminemia; 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: [Other disorders of plasma-protein metabolism, not elsewhere classified] Onset: 6 03-16-2016 Chronic Other nutritional; endocrine; and metabolic disorders (3 sources) Hypoproteinemia; 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: [Other disorders of glycoprotein metabolism] Onset: 6 02-03-2016 Chronic Other nutritional; endocrine; and metabolic disorders (3 sources) Obese class I; 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: [Obesity, unspecified] Onset: [...] Onset: 4 Episodic Phlebitis; thrombophlebitis and thromboembolism (20 sources) Deep venous thrombosis; 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: [History of thromboembolism of vein] Onset: 6 04-05-2017 Episodic Unclassified (1 source) Unknown / UNK(Unknown) Onset: 8 Unclassified (2 sources) CONTACT W/AND (SUSP) EXPOS COVID-19; 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: [CONTACT W/AND (SUSP) EXPOS COVID-19] Onset: 2 Unclassified (3 sources) SUMMARY Onset: 7 03-16-2016 Unclassified (1 source) Ventricular tachycardia, unspecified; 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: [Ventricular tachycardia, unspecified] Onset: 3 Viral infection (1 source) COVID-19; 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: [COVID-19] Onset: 2 Past or Other Problems Problem Classification Problem Date Documented Da te Episodic/Chronic Abdominal hernia (2 sources) Hernia of anterior abdominal wall; 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: [Ventral hernia without obstruction or gangrene] Onset: 08-12-2020 Resolved: 08-17-2020 08-17-2020 Episodic Acute and unspecified renal failure (5 sources) Acute renal failure syndrome; 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: [Acute kidney failure, unspecified] Onset: 02-28-2016 Resolved: 03-16-2016 03-11-2016 Episodic Complications of surgical procedures or medical care (2 sources) Postoperative ileus; 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: [Other postprocedural complications and disorders of digestive system] Onset: 02-03-2016 Resolved: 02-03-2016 07-25-2016 Episodic Fluid and electrolyte disorders (6 sources) Hypokalemia; 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: [Hypokalemia] Onset: 02-03-2016 Resolved: 03-16-2016 02-03-2016 Episodic Other aftercare (5 sources) Long-term current use of anticoagulant; 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: [buttermaker continuous churn (current) use of 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] Onset: 01-11-2016 Episodic Other aftercare (3 sources) Patient encounter status; 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: [Encounter for therapeutic drug level monitoring] Onset: 01-31-2016 03-11-2016 Episodic Other aftercare (2 sources) buttermaker continuous churn (current) use of 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; 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] Onset: 12-26-2022 Episodic Other circulatory disease (3 sources) H/O: hypertension; 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: [Personal history of other diseases of the circulatory system] Onset: 07-11-2016 07-11-2016 Episodic Other gastrointestinal disorders (2 sources) Ileostomy present; 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: [Encounter for attention to ileostomy] Onset: 07-25-2016 Resolved: 07-25-2016 07-25-2016 Chronic Other gastrointestinal disorders (2 sources) High output ileostomy; 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: [Other specified symptoms and signs involving the digestive system and abdomen] Onset: 02-28-2016 Resolved: 02-28-2016 02-28-2016 Episodic Other nervous system disorders (3 sources) Postoperative pain ; 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: [Other acute postprocedural pain] Onset: 02-03-2016 07-25-2016 Episodic Other nutritional; endocrine; and metabolic disorders (2 sources) Hypocalcemia; 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: [Hypocalcemia] Onset: 02-03-2016 Resolved: 02-03-2016 02-03-2016 Chronic Other nutritional; endocrine; and metabolic disorders (2 sources) Hypomagnesemia; 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: [Hypomagnesemia] Onset: 02-28-2016 Resolved: 02-28-2016 02-28-2016 Chronic Other nutritional; endocrine; and metabolic disorders (3 sources) H/O: diabetes mellitus; 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: [Personal history of other endocrine, nutritional and metabolic disease] Onset: 07-11-2016 07-11-2016 Episodic Other screening for suspected conditions (not mental disorders or infectious disease) (2 sources) INR raised; 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: [Abnormal coagulation profile] Onset: 02-28-2016 Resolved: 02-28-2016 02-28-2016 Episodic Pulmonary heart disease (8 sources) Pulmonary embolism; 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: [Other pulmonary embolism without acute cor pulmonale] Onset: 01-30-2016 03-11-2016 Episodic Residual codes; unclassified (3 sources) Postoperative state; 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: [Other specified postprocedural states] Onset: 08-19-2020 08-19-2020 Episodic Unclassified (1 source) CONTACT W/AND (SUSP) EXPOS COVID-19; 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: [CONTACT W/AND (SUSP) EXPOS COVID-19] Onset: 12-14-2021 Unclassified (1 source) Ventricular tachycardia, unspecified; 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: [Ventricular tachycardia, unspecified] Onset: 12-26-2022 Results Test Name Value Interpretation Reference Range Facility Oncology Progress Noteon Oncology Progress Note Chief Complaint Hx Colon; has been have stomach pain with diarrhea Oncological History/ROS/PE/Assess ment and Plan 72 year old male referred for history of pulmonary embolism in the past and DVT. According to old notes he had a DVT diagnosed in June 2015 and this eventually led to his diagnosis of rectal cancer. Previous notes states he was on Eliquis for a while afterwards. He was found to have a heterozygous mutation in factor V Leiden. Subsequently, he was diagnosed as having a T3N1 rectal adenocarcinoma receiving neoadjuvant chemotherapy and radiation December 2015. Post resection he was found to have T2N0 disease. He had a very difficult postoperative course and due to the length of time between the surgery and recovery he did not receive adjuvant chemotherapy. 06/27/23 He is doing ok. He notes some weight loss. He notes abdominal bloating and periodic diarrhea for a day or two every week. He has seen our GI team and referred them to colorectal team at [facility] bloating constipation then turns to diarrhea, diarrhea usually last 5-7 hours, takes OTC medications, seems to help a little. history of colon cancer [address] with and without contrast april 2023. IMPRESSION: PARTIAL PANCREATIC FATTY REPLACEMENT. NO MASSES IDENTIFIED. Comparison: CT abdomen pelvis, October 19, 2020. Pancreas: Partial fatty replacement, without masses, cysts, ductal dilatation or calcification. No peripancreatic fluid collections or fat stranding. Spleen: Normal in size without masses or calcifications. No splenules. Kidneys: Normal in size and enhancement. No hydronephrosis, or stones. 7 mm exophytic cyst, mid pole left kidney.. Vessels: Aorta normal in course and caliber. Retroaortic left renal vein, normal variant. Portal vein, splenic vein, superior mesenteric vein are patent. Lymph nodes: No enlarged retroperitoneal lymph nodes. Mesenteric: No enlarged mesenteric lymph nodes. Dr. alcaraz ordered a rectal manometry and was done at [facility]. Previous work up: Labs: 03/28/23 EGD: 10/05/21 Colonoscopy: 10/05/21 Imaging: US 03/28/23 07/25/23 he complains of a cyclical diarrhea. He notes every 5 or 6 days he gets a course of nausea without vomiting. 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 He gets diarrhea maybe 8 times in 5 hours. Then it goes back to hard. He can almost taste when this comes on. He had ct a/p recently with contrast 07/06/23 IMPRESSION: NO ACUTE ABDOMINOPELVIC PROCESS. COLONIC DIVERTICULOSIS WITHOUT DIVERTICULITIS. The liver, gallbladder, stomach, and adrenal glands are within normal limits. Mild fat infiltration of the otherwise unremarkable pancreas. Tiny calcifications throughout the spleen likely represents sequela of prior granulomatous disease. The kidneys enhance uniformly. No urinary tract calculi or hydronephrosis. Urinary bladder is well distended. The prostate is not enlarged. Abdominal aorta is nonaneurysmal. No retroperitoneal or abdominal/pelvic lymphadenopathy. No small bowel obstruction. Colonic diverticuli are identified. No overt colonic mass or pericolonic inflammation. Appendix is within normal limits. No free fluid or free air. No acute osseous abnormality. Degenerative changes of the lumbar spine. Followup at [facility] rectal team showed normal rectal manometry. He has been trying their recommended fiber. they diagnose with low anterior resection syndrome. PHYSICAL EXAMINATION ECOG PS: General: Alert and oriented, no acute distress. Eye: Extraocular movements are intact, normal conjunctiva. HENT: Normocephalic, normal hearing. Neck: Supple, non-tender, no jugular venous distention. Cardiovascular: Normal rate, regular rhythm, no murmur, no edema. Gastrointestinal: Soft, non-tender, non-distended, normal bowel sounds, no organomegaly. Respiratory: Clear to auscultation bilaterally, no wheezes, rhonchi or rales. Integumentary: Warm, dry, pink, no pallor, no rash. Psychiatric: Cooperative, appropriate mood & affect. Impression and Plan Rectal Cancer- T3N1 rectal adenocarcinoma dx 2015 He received neoadjuvant chemotherapy and radiation in November 2015. Complete resection done January 2016. Post resection he was found to have T2N0 disease. He had a very difficult postoperative course and due to the length of time between the surgery and recovery he did not receive adjuvant chemotherapy. Per NCCN guidelines, >5 years out no longer requires regular imaging, only if clinically indicated abdominal complaints secondary to low anterior resection syndrome. emphasized fiber use. ct imaging in june 2023 was negative for concern for recurrence. Repeat colonoscopy and EGD done September 2021 without evidence of recurrent cancer. recommend repeat in 5 years 1 polyp was removed, continued diverticulosis and some internal hemorrhoids. EGD with tight Schatzki ring, otherwise normal History of DVT/PE Had DVT in June 2015, subsequently found to have rectal cancer Mar 2017 dx (more content not included)... Normal [facility] Ambulatory Visit Summaryon 0 07-25-2023 Ambulatory Visit Summary LAKIA RODRIGUEZ Piyush :1950 Visit Date:07/25/2023 Ambulatory Visit Instructions Your Care Team Attending Physician - Dougie Harmon DO Primary Care Physician - Lakia Dyson MD This Is Your Medications List albuterol (albuterol HFA 90 mcg/inh MDI) amlodipine (amLODIPine 2.5 mg Tab) apixaban (Eliquis 2.5 mg oral tablet) atorvastatin (atorvastatin 10 mg Tab) bisacodyl (bisacodyl 10 mg Supp) dapagliflozin (Farxiga 5 mg oral tablet) glipiZIDE (glipiZIDE 5 mg Tab) lisinopril (lisinopril 2.5 mg Tab) loperamide (Immodium A-D 2 mg Cap) pantoprazole pioglitazone (pioglitazone 15 mg Tab) polyethylene glycol 3350 (polyethylene glycol 3350 Oral Pwdr for Recon) predniSONE (predniSONE 10 mg Tab) sacubitril-valsartan (Entresto 24 mg-26 mg oral tablet) senna (Senna 8.6 mg oral tablet) warfarin (Coumadin 4 mg Tab) warfarin (warfarin 4 mg Tab) Procedures Performed Colonoscopy (10/05/2021), Colonoscopy (03/02/2017), colostomy reversal, EGD (esophagogastroduoden oscopy) gastric outlet reduction, Pacemaker battery. Discharge Vitals Temperature (Oral) 36.8 ?C Heart Rate (Peripheral) 62 Respiratory Rate 16 Blood Pressure 86/55 Height 167 cm Weight 89.9 kg BMI 32.23 What to do next You Need to Schedule the Following Appointments Follow Up with Dougie Harmon DO ONC When: Comments: f/u in 6 months. no imaigng. cbc, cmp, cea, iron studies, b12, foalte prior to f/u. Where: [facility] [address] [place] [place] [phone] Fax Business (1) Medications What How Much When Why Instructions Unchanged albuterol (albuterol HFA 90 mcg/ inh MDI) 2 Puffs Inhalation 4 times a day as needed for for wheezing Acute bronchitis Unchanged amlodipine (amLODIPine 2.5 mg Tab) 1 Tablets By Mouth Every day Unchanged apixaban (Eliquis 2.5 mg oral tablet) 1 Tablets By Mouth 2 times a day Unchanged atorvastatin (atorvastatin 10 mg Tab) 1 Tablets By Mouth Every day Unchanged bisacodyl (bisacodyl 10 mg Supp) 1 Suppositories By rectum Every day as needed for for constipation Unchanged dapagliflozin (Farxiga 5 mg oral tablet) 1 Tablets Every day Unchanged glipiZIDE (glipiZIDE 5 mg Tab) 1 Tablets By Mouth Every day Unchanged lisinopril (lisinopril 2.5 mg Tab) 1 Tablets By Mouth Every day Unchanged loperamide (Immodium A-D 2 mg Cap) 1 Capsules By Mouth Four times a day (before meals and at bedtime) pt takes scheduled unless constipated Unchanged pantoprazole 40 Milligram By Mouth Every day Unchanged pioglitazone (pioglitazone 15 mg Tab) 1 Tablets By Mouth Every day Unchanged polyethylene glycol 3350 (polyethylene glycol 3350 Oral Pwdr for Recon) 17 Gram By Mouth Every day as needed for Constipation dissolve in water before taking Unchanged predniSONE (predniSONE 10 mg Tab) See instructions Acute bronchitis Oral 6 tabs for 1 day,5 tabs for 1 day,4 tabs for 1 day,3 tabs for 1 day,2 tabs for 1 day,1 tab for 1 day Unchanged sacubitril-valsartan (Entresto 24 mg-26 mg oral tablet) 1 Tablets By Mouth 2 times a day Unchanged senna (Senna 8.6 mg oral tablet) 2 Tablets By Mouth 2 times a day as needed for for constipation Unchanged warfarin (Coumadin 4 mg Tab) 1 Tablets By Mouth As Directed as directed, per INR results Unchanged warfarin (warfarin 4 mg Tab) 1 Tablets By Mouth Saturday & Saturday Allergies Ragweed (Dyspnea) penicillins (unknown) Problems Ongoing - Any problem that you are currently receiving treatment for. Acid reflux Bloating Colon polyp Constipation Diverticulosis Hemorrhoids History of colon polyps History of rectal cancer Hypercoagulable state Schatzki's ring Historical - Any problem that you are no longer receiving treatment for. Change in bowel habits Colon cancer DVT - Deep vein thrombosis Dysphagia Patient Survey You may receive a survey via text or e-mail asking about your office visit. Please share your experience with us by completing your survey. We appreciate your feedback and thank you for choosing us for your care. Normal [facility] Consent for Treatmenton 07-12 Consent for Treatment [id number] Normal [facility] CBC w/ Auto Diffon 4 Basophils/100 WBC (Bld) 0.2 % Normal 0.0-2.0 [facility] Comment on above: Performed By: #### 2 [id number] #### [facility] [address] [place] [address] Basophils/Leukocytes Auto (Bld) [Pure # fraction] 0.0 E9/L Normal 0.0-0.2 [facility] Comment on above: Performed By: #### 2 [id number] #### [facility] [address] [place] [address] Eosinophils (Bld) [#/Vol] 0.3 E9/L Normal 0.0-0.5 [facility] Comment on above: Performed By: #### 2 [id number] #### [facility] [address] [place] [address] Eosinophils/100 WBC (Bld) 4.1 % Normal 0.0-8.0 [facility] Comment on above: Performed By: #### 2 [id number] #### [facility] [address] [place] [address] Erythrocyte distribution width (RBC) [Ratio] 15.8 % High 10.9-14.2 [facility] Comment on above: Performed By: #### 2 [id number] #### [facility] [address] [place] [address] Hematocrit (Bld) [Volume fraction] 46.2 % Normal 37.7-49.0 [facility] Comment on above: Performed By: #### 2 [id number] #### [facility] [address] [place] [address] Hemoglobin (Bld) [Mass/Vol] 15.8 g/dL Normal 13.5-17.5 [facility] Comment on above: Performed By: #### 2 [id number] #### [facility] [address] [place] [address] Lymphocytes (Bld) [#/Vol] 0.9 E9/L Low 1.0-4.0 [facility] Comment on above: Performed By: #### 2 [id number] #### [facility] [address] [place] [address] Lymphocytes/100 WBC (Bld) 12.6 % Low 14.0-50.0 [facility] Comment on above: Performed By: #### 2 [id number] #### [facility] [address] [place] [address] MCH (RBC) [Entitic mass] 31.1 pg Normal 27.0-34.0 [facility] Comment on above: Performed By: #### 2 [id number] #### [facility] [address] [place] [address] MCHC (RBC) [Mass/Vol] 34.1 g/dL Normal 31.4-36.0 [facility] Comment on above: Performed By: #### 2 [id number] #### [facility] [address] [place] [address] MCV (RBC) [Entitic vol] 91.1 fL Normal 80.0-100.0 [facility] Comment on above: Performed By: #### 2 [id number] #### [facility] [address] [place] [address] Monocytes (Bld) [#/Vol] 0.5 E9/L Normal 0.2-1.0 [facility] Comment on above: Performed By: #### 2 [id number] #### [facility] [address] [place] [address] Neutrophils (Bld) [#/Vol] 5.3 E9/L Normal 2.0-7.5 [facility] Comment on above: Performed By: #### 2 [id number] #### [facility] [address] [place] [address] Neutrophils/100 WBC (Bld) 75.9 % High 36.0-75.0 [facility] Comment on above: Performed By: #### 2 [id number] #### [facility] [address] [place] [address] Platelet 216.0 E9/L Normal 150.0-500.0 [facility] Comment on above: Performed By: #### 2 [id number] #### [facility] [address] [place] [address] Platelet mean volume (Bld) [Entitic vol] 8.8 fL Normal 6.4-10.8 [facility] Comment on above: Performed By: #### 2 [id number] #### [facility] [address] [place] [address] RBC (Bld) [#/Vol] 5.1 E12/L Normal 4.3-5.9 [facility] Comment on above: Performed By: #### 2 [id number] #### [facility] [address] [place] [address] WBC corrected for nucl RBC Auto (Bld) [#/Vol] 7.0 E9/L Normal 4.0-11.0 [facility] Comment on above: Performed By: #### 2 [id number] #### [facility] [address] [place] [address] CEAon 07-23-2023 CEA 1.4 ng/mL Invalid Interpretation Code [facility] Comment on above: Result Comment: 'NON -SMOKER < 2.5' 'SMOKER < 5.0' The concentration of CEA in a given specimen determined by different manufacturers can vary due to differences in assay methods and reagent specificity. Values obtained with different assay methods cannot be used interchangeably. The methodology used to perform this test was chemiluminescence using [employer]'s Access CEA reagent. Performed By: #### 2 [id number] #### [facility] [address] [id number] CHEMISTRYOrdered By: SYSTEM SYSTEM on 07-23-2023 Albumin [Mass/Vol] 4.1 g/dL Normal 3.3 - 5.0 gm/dL [facility] Albumin/Globulin [Mass ratio] 1.7 {ratio} Normal 1.1 - 2.2 [facility] ALP [Catalytic activity/Vol] 93 [iU]/d Normal 21 - 98 Int._Unit/L [facility] ALT No additional P-5'-P [Catalytic activity/Vol] 30 [iU]/d Normal 6 - 46 Int._Unit/L [facility] Anion gap [Moles/Vol] 12 mmol/L Normal 6 - 16 mEq/L R em[facility] Chem AST [Catalytic activity/Vol] 25 [iU]/d Normal 5 - 43 Int._Unit/L [facility] Bilirubin [Mass/Vol] 0.7 mg/dL Normal 0.0 - 1 .1 mg/dL [facility] Calcium [Mass/Vol] 9.2 mg/dL Normal 8.9 - 11. 1 mg/dL [facility] CEA 1.4 ng/mL Invalid Interpretation Code [facility] Comment on above: Result Comment: 'NON -SMOKER < 2.5' 'SMOKER < 5.0' Interpretive Data: T he concentration of CEA in a given specimen determined by different manufacturers can vary due to differences in assay methods and reagent specificity. Values obtained with different assay methods cannot be used interchangeably. The methodology used to perform this test was chemiluminescence using [employer]'s Access CEA reagent. Chloride [Moles/Vol] 107 mmol/L Normal 101 - 1 11 mmol/L [facility] CO2 [Moles/Vol] 26 mmol/L Normal 21 - 31 mmol/L [facility] Cobalamin (Vitamin B12) [Mass/Vol] 305 pg/mL Normal 50 - 1500 pg/mL [facility] Creatinine [Mass/Vol] 1.3 mg/dL Normal 0.5 - 1.3 mg/dL [facility] eGFR 59 mL/min/1.73 m2 Normal >=59mL/min /1 .73 m2 [facility] Ferritin [Mass/Vol] 43 ng/mL Normal 24 - 336 ng/mL [facility] Folate [Mass/Vol] ng/mL Normal >=6.7ng/mL [facility] Globulin (S) [Mass/Vol] 2.4 g/dL Normal 1.4 - 4.0 gm/dL [facility] Glucose [Mass/Vol] 170 mg/dL Normal 55 - 199 mg/dL [facility] Iron [Mass/Vol] 83 ug/dL Normal 35 - 153 mcg/dL [facility] Iron binding capacity [Mass/Vol] 302 ug/dL Normal 250 - 400 mcg/dL [facility] Iron saturation [Mass fraction] 27 % Normal 20 - 50 % [facility] Lipase [Catalytic activity/Vol] 29 U/L Normal 13 - 58 unit/L [facility] Potassium [Moles/Vol] 4.0 mmol/L Normal 3.5 - 5.3 mmol/L [facility] Protein [Mass/Vol] 6.5 g/dL Normal 6.0 - 7.8 gm/dL [facility] Sodium [Moles/Vol] 141 mmol/L Normal 135 - 145 mmol/L [facility] Transferrin [Mass/Vol] 216 mg/dL Normal 200 - 370 mg/dL [facility] Urea nitrogen [Mass/Vol] 19 mg/dL Normal 5 - 21 mg/dL [facility] Urea nitrogen/Creatinine [Mass ratio] 15 mg/mg Normal 10 - 20 [facility] CMPon 07-23-2023 Albumin [Mass/Vol] 4.1 g/dL Normal 3.3-5.0 [facility] Comment on above: Performed By: #### 2 [id number] #### [facility] [address] [place] [address] Albumin/Globulin (S) [Mass conc ratio] 1.7 Normal 1.1-2.2 [facility] Comment on above: Performed By: #### 2 [id number] #### [facility] [address] [place] [address] ALP [Catalytic activity/Vol] 93 Int._Unit/L Normal 21-98 [facility] Comment on above: Performed By: #### 2 [id number] #### [facility] [address] [place] [address] ALT No additional P-5'-P [Catalytic activity/Vol] 30 Int._Unit/L Normal 6-46 [facility] Comment on above: Performed By: #### 2 [id number] #### [facility] [address] [place] [address] Anion gap [Moles/Vol] 12 mmol/L Normal 6-16 [facility] Comment on above: Performed By: #### 2 [id number] #### [facility] [address] [place] [address] AST [Catalytic activity/Vol] 25 Int._Unit/L Normal 5-43 [facility] Comment on above: Performed By: #### 2 [id number] #### [facility] [address] [place] [address] Bilirubin [Mass/Vol] 0.7 mg/dL Normal 0.0-1.1 [facility] Comment on above: Performed By: #### 2 [id number] #### [facility] [address] [place] [address] Calcium [Mass/Vol] 9.2 mg/dL Normal 8.9-11.1 [facility] Comment on above: Performed By: #### 2 [id number] #### [facility] [address] [place] [address] Chloride [Moles/Vol] 107 mmol/L Normal 101-111 [facility] Comment on above: Performed By: #### 2 [id number] #### [facility] [address] [place] [address] CO2 [Moles/Vol] 26 mmol/L Normal 21-31 [facility] Comment on above: Performed By: #### 2 [id number] #### [facility] [address] [place] [address] Creatinine [Mass/Vol] 1.3 mg/dL Normal 0.5-1.3 [facility] Comment on above: Performed By: #### 2 [id number] #### [facility] [address] [place] [address] Globulin (S) [Mass/Vol] 2.4 g/dL Normal 1.4-4.0 [facility] Comment on above: Performed By: #### 2 [id number] #### [facility] [address] [place] [address] Glucose [Mass/Vol] 170 mg/dL Normal 55-199 [facility] Comment on above: Performed By: #### 2 [id number] #### [facility] [address] [place] [address] Potassium [Moles/Vol] 4.0 mmol/L Normal 3.5-5.3 [facility] Comment on above: Performed By: #### 2 [id number] #### [facility] [address] [place] [address] Protein [Mass/Vol] 6.5 g/dL Normal 6.0-7.8 [facility] Comment on above: Performed By: #### 2 [id number] #### [facility] [address] [place] [address] Sodium [Moles/Vol] 141 mmol/L Normal 135-145 [facility] Comment on above: Performed By: #### 2 [id number] #### [facility] [address] [place] [address] Urea nitrogen [Mass/Vol] 19 mg/dL Normal 5-21 [facility] Comment on above: Performed By: #### 2 [id number] #### [facility] [address] [place] [address] Urea nitrogen/Creatinine [Mass ratio] 15 No Units Normal 10-20 [facility] Comment on above: Performed By: #### 2 [id number] #### [facility] [address] [place] [address] Consent for Treatmenton 07-12 Consent for Treatment [id number] Normal [facility] Ferritinon 07-23-2023 Ferritin [Mass/Vol] 43 ng/mL Normal 24-336 [facility] Comment on above: Performed By: #### 2 [id number] #### [facility] [address] [place] [address] Folateon 07-23-2023 Folate [Mass/Vol] ng/mL Normal >=6.7 [facility] Comment on above: Performed By: #### 2 [id number] #### [facility] [address] [place] [address] HEMATOLOGYOrdered By: SYSTEM SYSTEM on 07-23-2023 Basophils/100 WBC (Bld) 0.2 % Normal 0.0 - 2.0 % [facility] Basophils/Leukocytes Auto (Bld) [Pure # fraction] 0.0 E9/L Normal 0.0 - 0.2 E9/L [facility] Eosinophils (Bld) [#/Vol] 0.3 E9/L Normal 0.0 - 0.5 E9/L [facility] Eosinophils/100 WBC (Bld) 4.1 % Normal 0.0 - 8.0 % [facility] Erythrocyte distribution width (RBC) [Ratio] 15.8 % High 10.9 - 14.2 % [facility] Hematocrit (Bld) [Volume fraction] 46.2 % Normal 37.7 - 49.0 % [facility] Hemoglobin (Bld) [Mass/Vol] 15.8 g/dL Normal 13.5 - 17.5 gm/dL [facility] Lymphocytes (Bld) [#/Vol] 0.9 E9/L Low 1.0 - 4.0 E9/L [facility] Lymphocytes/100 WBC (Bld) 12.6 % Low 14.0 - 50.0 % [facility] MCH (RBC) [Entitic mass] 31.1 pg Normal 27.0 - 34.0 pg [facility] MCHC (RBC) [Mass/Vol] 34.1 g/dL Normal 31.4 - 36.0 gm/dL [facility] MCV (RBC) [Entitic vol] 91.1 fL Normal 80.0 - 100.0 fL [facility] Monocytes (Bld) [#/Vol] 0.5 E9/L Normal 0.2 - 1.0 E9/L [facility] Monocytes/100 WBC (Bld) 7.2 % Normal 4.0 - 14.0 % [facility] Neutrophils (Bld) [#/Vol] 5.3 E9/L Normal 2.0 - 7.5 E9/L [facility] Neutrophils/100 WBC (Bld) 75.9 % High 36.0 - 75.0 % [facility] Platelet 216.0 E9/L Normal 150.0 - 500.0 E9/L [facility] Platelet mean volume (Bld) [Entitic vol] 8.8 fL Normal 6.4 - 10.8 fL [facility] RBC (Bld) [#/Vol] 5.1 E12/L Normal 4.3 - 5.9 E12/L [facility] WBC corrected for nucl RBC Auto (Bld) [#/Vol] 7.0 E9/L Normal 4.0 - 11.0 E9/L [facility] Ironon 07-23-2023 Iron [Mass/Vol] 83 microgram/dL Normal 35-153 [facility] Comment on above: Performed By: #### 2 [id number] #### [facility] [address] [place] [address] Iron Saturationon 07-23-2023 Iron binding capacity [Mass/Vol] 302 microgram/dL Normal 250-400 [facility] Comment on above: Performed By: #### 2 [id number] #### [facility] [address] [place] [address] Iron saturation [Mass fraction] 27 % Normal 20-50 [facility] Comment on above: Performed By: #### 2 [id number] #### [facility] [address] [place] [address] Lipase Levelon 07-23-2023 Lipase [Catalytic activity/Vol] 29 U/L Normal 13-58 [facility] Comment on above: Performed By: #### 2 [id number] #### [facility] [address] [place] [address] Transferrinon 07-23-2023 Transferrin [Mass/Vol] 216 mg/dL Normal 200-370 [facility] Comment on above: Performed By: #### 2 [id number] #### [facility] [address] [place] [address] Vit B12on 07-23-2023 Cobalamin (Vitamin B12) [Mass/Vol] 305 pg/mL Normal 50-1500 [facility] Comment on above: Performed By: #### 2 [id number] #### [facility] [address] [place] [address] eGFRon 07-23-2023 eGFR 59 mL/min/1.73 m2 Normal >=59 [facility] Comment on above: Order Comment: Order added by Discern Expert. Performed By: #### 1 [id number] #### [facility] [address] [place] [address] CT Abdomen/Pelvis w/ Contras ton 07-11-2023 CT Abdomen/Pelvis w/ Contrast Exam Date/Time: 07/06/2023 10:38 EDT Reason for Exam: surveillance;Other (please specify) Report IMPRESSION: NO ACUTE ABDOMINOPELVIC PROCESS. COLONIC DIVERTICULOSIS WITHOUT DIVERTICULITIS.. EXAM: CT Abdomen/Pelvis w/ Contrast History: Constipation. Diarrhea. Abdominal pain. Technique: Multiple contiguous axial images were obtained of the abdomen and pelvis from the level of the lung bases through the ischial tuberosities with contrast. Multiplanar reformats were obtained. Delayed images were obtained. Unless otherwise stated, incidental findings identified in this report do not require routine follow-up imaging. Comparison: CT 04/23/2023 Findings: Lung bases are clear. The liver, gallbladder, stomach, and adrenal glands are within normal limits. Mild fat infiltration of the otherwise unremarkable pancreas. Tiny calcifications throughout the spleen likely represents sequela of prior granulomatous disease. The kidneys enhance uniformly. No urinary tract calculi or hydronephrosis. Urinary bladder is well distended. The prostate is not enlarged. Abdominal aorta is nonaneurysmal. No retroperitoneal or abdominal/pelvic lymphadenopathy. No small bowel obstruction. Colonic diverticuli are identified. No overt colonic mass or pericolonic inflammation. Appendix is within normal limits. No free fluid or free air. No acute osseous abnormality. Degenerative changes of the lumbar spine. All CT scans at this facility use dose modulation, iterative reconstruction, and/or weight based dosing when appropriate to reduce radiation dose to as low as reasonably achievable. Report Ordering Provider: Dougie Harmon FINAL REPORT Dictated: 07/11/2023 12:59 pm Yusuf Gutierrez DO Signed (Electronic Signature): 07/11/2023 12:59 pm Signed by: Yusuf Gutierrez DO Transcribed by: ZEKE Technologist: ASHTYN Technical Comments GFR (mL/min/1/73m2) 59 Contrast: Isovue 300 Contrast amount in ml's: 100 Rectal Contrast Given? No Oral contrast amount in ml's: 900 Normal [facility] Consultation Noteon 07-09-19 Consultation Note [id number] .00TIFF Normal [facility] Oncology Progress Noteon Oncology Progress Note Chief Complaint HX PE, HX Colon CA; No Concerns, has had recent pacemaker placement/ defibulator. Diagnoses History of colon cancer in adulthood (Z85.038: Personal history of other malignant neoplasm of large intestine) Oncological History/ROS/PE/Assess ment and Plan 72 year old male referred for history of pulmonary embolism in the past and DVT. According to old notes he had a DVT diagnosed in June 2015 and this eventually led to his diagnosis of rectal cancer. Previous notes states he was on Eliquis for a while afterwards. He was found to have a heterozygous mutation in factor V Leiden. Subsequently, he was diagnosed as having a T3N1 rectal adenocarcinoma receiving neoadjuvant chemotherapy and radiation December 2015. Post resection he was found to have T2N0 disease. He had a very difficult postoperative course and due to the length of time between the surgery and recovery he did not receive adjuvant chemotherapy. 06/27/23 He is doing ok. He notes some weight loss. He notes abdominal bloating and periodic diarrhea for a day or two every week. He has seen our GI team and referred them to colorectal team at [facility] bloating constipation then turns to diarrhea, diarrhea usually last 5-7 hours, takes OTC medications, seems to help a little. history of colon cancer [address] with and without contrast april 2023. IMPRESSION: PARTIAL PANCREATIC FATTY REPLACEMENT. NO MASSES IDENTIFIED. Comparison: CT abdomen pelvis, October 19, 2020. Pancreas: Partial fatty replacement, without masses, cysts, ductal dilatation or calcification. No peripancreatic fluid collections or fat stranding. Spleen: Normal in size without masses or calcifications. No splenules. Kidneys: Normal in size and enhancement. No hydronephrosis, or stones. 7 mm exophytic cyst, mid pole left kidney.. Vessels: Aorta normal in course and caliber. Retroaortic left renal vein, normal variant. Portal vein, splenic vein, superior mesenteric vein are patent. Lymph nodes: No enlarged retroperitoneal lymph nodes. Mesenteric: No enlarged mesenteric lymph nodes. Dr. alcaraz ordered a rectal manometry and was done at [facility]. Previous work up: Labs: 03/28/23 EGD: 10/05/21 Colonoscopy: 10/05/21 Imaging: US 03/28/23 Impression and Plan New abdominal complaints. will image his abdomen and chest. He had a high risk rectal cancer. there is still risk for recurrence although small. Rectal Cancer- T3N1 rectal adenocarcinoma dx 2015 He received neoadjuvant chemotherapy and radiation in November 2015. Complete resection done January 2016. Post resection he was found to have T2N0 disease. He had a very difficult postoperative course and due to the length of time between the surgery and recovery he did not receive adjuvant chemotherapy. June 2021 CEA remains stable/WNL, cbc and cmp stable as well. No evidence of recurrence at this time. Per NCCN guidelines, >5 years out no longer requires regular imaging, only if clinically indicated Repeat colonoscopy and EGD done September 2021 without evidence of recurrent cancer. recommend repeat in 5 years 1 polyp was removed, continued diverticulosis and some internal hemorrhoids. 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 [address]- [phone] Fax Business ([phone]) Additional Instructions: ct a/p with contrast soon. f/u after cbc, cmp, cea, iron studies, b12, foalte, lipase prior to f/u. Medications albuterol HFA 90 mcg/inh MDI, 2 puff(s), Inhalation, QID, PRN amLODIPine 2.5 mg Tab, 2.5 mg= 1 tab(s), Oral, Daily atorvastatin 10 mg Tab, 10 mg= 1 tab(s), Oral, Daily bisacodyl 10 mg Supp, 10 mg= 1 supp, Rectal, Daily, PRN Coumadin 4 mg Tab, 4 mg= 1 tab(s), Oral, As Directed Eliquis 2.5 mg oral tablet, 2.5 mg= 1 tab(s), Oral, BID, 5 refills Entresto 24 mg-26 mg oral tablet, 1 tab(s), Oral, BID Farxiga 5 mg oral tablet, 5 mg= 1 tab(s), Daily glipiZIDE 5 mg Tab, 5 mg= 1 tab(s), Oral, Daily Immodium A-D 2 mg Cap, 2 mg= 1 cap(s), Oral, QIDACHS lisinopril 2.5 mg Tab, 2.5 mg= 1 tab(s), Oral, Daily pantoprazole, 40 mg, Oral, Daily pioglitazone 15 mg Tab, 15 mg= 1 tab(s), Oral, Daily polyethylene glycol 3350 Oral Pwdr for Recon, 17 gm, Oral, Daily, PRN predniSONE 10 mg Tab, See Instructions Senna 8.6 mg oral tablet, 17.2 mg= 2 tab(s), Oral, BID, PRN, 4 refills warfarin 4 mg Tab, 4 mg= 1 tab(s), Oral, MonWeFrSaSu Vital Signs and Measurements Vital Signs and Measurements This Visit - Last 24 Hours T: 36.5 ?C (Oral) HR: 59 (Peripheral) RR: 16 BP: 124/80 SpO2: 97% HT: 167 cm HT: 167.0 cm WT: 84.8 kg WT: 84.8 kg (Dosing) BMI: 30.41 BSA: 1.98 Staging Information No information available Labs C (more content not included)... Normal [facility] Consent for Treatmenton 06-12 Consent for Treatment [id number] .00TIFF Normal [facility] CHEMISTRYOrdered By: SYSTEM SYSTEM on 07-02-2023 Creatinine [Mass/Vol] 1.3 mg/dL Normal 0.5 - 1.3 mg/dL Remisol Chem eGFR 59 mL/min/1.73 m2 Normal >=59mL/min /1 .73 m2 Remisol Chem Consent for Treatmenton 06-12 Consent for Treatment [id number]#1 .00TIFF Normal [facility] Creatinineon 07-02-2023 Creatinine [Mass/Vol] 1.3 mg/dL Normal 0.5-1.3 [facility] Comment on above: Performed By: #### 2 [id number] #### [facility] Laboratory [address] [place] [address] Physician Orderon 07-02-2023 Physician Order [id number] #1.00TIFF Normal [facility] eGFRon 07-02-2023 eGFR 59 mL/min/1.73 m2 Normal >=59 [facility] Comment on above: Order Comment: Order added by Discern Expert. Performed By: #### 1 [id number] #### [facility] [address] [place] [address] Consent for Treatmenton 06-11 Consent for Treatment [id number] .00TIFF Normal [facility] CNOVon 06-25-2023 CNOV Office Visit ([facility] ) LAKIA RODRIGUEZ ([id number]) 1950 M Date Time Provider Department 06/25/23 11:30 AM NANCI MILLER [facility] During your visit today, we recorded the following information about you: Nanci Miller APRN.CNP 06/25/2023 11:54 AM Signed PELVIC FLOOR COLON AND RECTAL SURGERY Reason for visit: Review anorectal manometry and EMG results History of Present Illness: Lakia Rodriguez is a 72 year old MALE who was seen at the request of Dr. Alcaraz for anorectal manometry testing, rectal sensation testing and EMG recruitment. Ms. Rodriguez was referred for testing due to symptoms of abdominal bloating, alternating constipation and diarrhea with fecal incontinence. Patient has history of rectal cancer and underwent low anterior resection with diverting loop ileostomy in 2016 followed by stoma closure. Patient reports having neoadjuvant chemo and radiation.. . Duration of symptoms: Worsening over the past 1 to 2 years. States since bowel resection in 2016 intermittent episodes of bowel issues Is complaint is abdominal bloating and intermittent episodes of fecal incontinence that typically can occur around twice a month at night. Also with intermittent episodes of fecal incontinence during the day with urgency. Patient reports stool can range from very loose to hard/dry. Has previously taken MiraLAX and a fiber supplement with no noticeable improvement. Not currently taking anything on a regular basis. Does have a prescription for senna tablets which he takes very rarely. States using Pepto-Bismol for episodes of diarrhea that will typically improve his symptoms. Episodes of loose stools or diarrhea will occur for half a day 1-2 times per month. Patient states he may go a few days without a bowel movement at all. He reports abdominal bloating on a daily basis. Do you have anorectal pain: No Stool frequency: See above Stool type: Type 1: Separate hard lumps, like nuts (hard to pass) Type 2: Sausage-shaped but lumpy Type 6: Fluffy pieces with ragged edges, a mushy stool Type 7: Watery, no solid pieces (entirely liquid) Stool straining: mild straining with the start of hard stool Frequency of straining: sometimes Does anything make your symptoms better? Nothing has noticeably improved his symptoms. 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 PICC LINE INSERT/CONSULT 01/31/2016 TOOTH EXTRACTION Current Outpatient Medications Medication Sig Dispense Refill lisinopril 2.5 mg tablet Take 1 tablet [...] daily. While taking narcotic pain medication 0 glipiZIDE (GLUCOTROL XL) 2.5 mg 24 hr tablet Take 2.5 mg by mouth once daily. 11 loperamide (IMODIUM) 2 mg cap(s) TAKE 2 CAPSULES BY MOUTH BEFORE MEALS AND AT BEDTIME [address] (PROTONIX) 40 mg tablet Take 1 tablet by mouth DAILY (6 AM). 0 No current facility-administered medications for this visit. ALLERGIES Allergen Reactions Penicillins Unknown Ragweed Shortness of Breath FAMILY HISTORY Problem Relation Age of Onset other (bone cance (more content not included)... Normal [facility] RAD - MRI Screening Formon 0 05-09-2023 RAD - MRI Screening Form [id number] .00TIFF Normal [facility] Physician Orderon 05-07-2023 Physician Order [id number] .00TIFF Normal [facility] Physician Orderon 05-03-2023 Physician Order [id number] .00TIFF Normal [facility] CNPNon 04-26-2023 CNPN Telephone ([facility]) LAKIA RODRIGUEZ ([id number]) 1950 M Date Time Provider Department 04/26/23 NANCI MILLER [facility] During your visit today, we recorded the following information about you: Teresa Moore 04/26/2023 1:11 PM Signed Called and LVM regarding referral for Manometry by [facility]. Allergies As of Date: 04/26/2023 Noted Allergy Reaction PENICILLINS 06/22/2015 16 - Unknown RAGWEED 12/05/2015 12 - Shortness of Breath Date Reviewed: 09/05/2020 Reviewed by: Belem Koch APRN.COMMERCIAL MANAGEMENT ACCOUNTANT - Fully Assessed Reason for Visit: Appointment [...] Encounter Status:Closed by TERESA MOORE [facility]/23 [facility] Reminders - From: Ivelisse ENCISO, Jessica Che To: Bev Chow MA; Sent: 04/24/2023 10:23:02 EDT ! Show up: 04/24/2023 10:23:02 EDT Actions: Quick Reminder 1 Due Date/Time: 04/25/2023 10:22:00 EDT Reminder Comments: Fat seen in the pancreas. No further workup needed Results: Date Result Type Result Name 04/23/2023 19:[address] Abdomen w/ + w/o Contrast made patient aware, verbalized clear understanding. Normal [facility] CT Abdomen w/ + w/o [...] as low as reasonably achievable. Ordering Provider: Jessica Alcaraz FINAL REPORT Dictated: 04/23/2023 7:00 pm Long oSw MD Signed (Electronic Signature): 04/23/2023 7:00 pm Signed by: Long Sow MD Transcribed by: ZEKE Technologist: FRANCO Technical Comments GFR (mL/min/1/73m2) 46 Contrast: Isovue 300 Contrast amount in ml's: 100 Oral contrast amount in ml's: 450 Normal [facility] Consent for Treatmenton 04-11 Consent for Treatment [id number] .00TIFF Normal [facility] CHEMISTRYOrdered By: SYSTEM SYSTEM on 04-19-2023 Creatinine [Mass/Vol] 1.6 mg/dL High 0.5 - 1.3 mg/dL Remisol Chem eGFR 46 mL/min/1.73 m2 Low >=59mL/min /1 .73 m2 Remisol Chem Consent for Treatmenton Consent for Treatment [id number] .00TIFF Normal [facility] Creatinineon 04-19-2023 Creatinine [Mass/Vol] 1.6 mg/dL High 0.5-1.3 [facility] Comment on above: Performed By: #### 1 [id number] ####[facility] [id number] [place] [address] Physician Orderon 04-19-2023 Physician Order [id number] #1.00TIFF Normal [facility] eGFRon 04-19-2023 eGFR 46 mL/min/1.73 m2 Low >=59 [facility] Comment on above: Order Comment: Order added by Discern Expert. Performed By: #### 1 [id number] ####[facility] [id number] [place] [address] Gastroenterology Office/Clin ic Noteon 04-15-2023 Gastroenterology Office/Clinic [...] cold forceps and then dilated using 56 [place] dilator History of Present Illness pt [...] (R14.0: Abdominal (more content not included)... Normal [facility] Comment on above: Result Comment: Elec tronically Signed By: Ivelisse ENCISO, Jessica Che\.br\Date and Time Signed: 04/15/23 13:07 EST Lab Reportson 04-15-2023 Lab Reports [id number]#1 .00TIFF Normal [facility] OT - Otheron 04-15-2023 OT - Other [id number]# 1.00TIFF Normal [facility] RAD - Ultrasound Reporton RAD - Ultrasound Report [id number] .00TIFF Normal [facility] Follow-Upon 12-12-2022 Follow-Up Normal [facility] Documentationon 12-06-2022 Documentation Normal [facility] 30on 12-05-2022 30 Normal [facility] BASIC METABOLIC PANELon 11-12 Anion gap [Moles/Vol] 10 mmol/L Normal 7-20 [facility] Comment on above: Performed By: #### L [id number] ####[facility] ([facility])[address] [place] [address] Calcium [Mass/Vol] 9.3 mg/dL Normal 8.6-10.3 [facility] Comment on above: Performed By: #### L [id number] ####[facility] ([facility])[address] [place] [address] Chloride [Moles/Vol] 104 mmol/L Normal 98-107 [facility] Comment on above: Performed By: #### L [id number] ####[facility] ([facility])[address] [place] [address] CO2 [Moles/Vol] 24 mmol/L Normal 21-31 [facility] Comment on above: Performed By: #### L [id number] ####[facility] [place] [address] Creatinine [Mass/Vol] 1.20 mg/dL Normal 0.70-1.30 [facility] Comment on above: Performed By: #### L [id number] ####[facility] ([facility])[address] [place] [address] GLOMERULAR FILTRATION RATE ML/MIN/1.73 SQ M.PREDICTED 65.1 mL/min/1.73m*2 Normal >60.[address] [facility] Comment on above: Result Comment: [facility]???s estimated glomerular filtration rate (eGFR) will no [...] of individuals. Performed By: #### L [id number] ####[facility] ([facility] [place] [address] Glucose [Mass/Vol] 148 mg/dL High 70-100 [facility] Comment on above: Performed By: #### L [id number] ####[facility] ([facility] [place] [address] Potassium [Moles/Vol] 4.3 mmol/L Normal 3.5-5.1 [facility] Comment on above: Performed By: #### L [id number] ####[facility] ([facility] [place] [address] Sodium [Moles/Vol] 134 mmol/L Low 136-145 [facility] Comment on above: Performed By: #### L [id number] ####[facility] ([facility] [place] [address] Urea nitrogen [Mass/Vol] 28 mg/dL High -25 [facility] Comment on above: Performed By: #### L [id number] ####[facility] ([facility])[address] [place] [address] UREA NITROGEN/CREATININE (MASS RATIO) IN SER/PLAS 23.3 Normal [facility] Comment on above: Performed By: #### L [id number] ####[facility] ([facility])[address] [place] [address] CBCon 12-05-2022 Erythrocyte distribution width (RBC) [Ratio] 14.3 % Normal 11.5-15.0 [facility] Comment on above: Performed By: #### L [id number] ####[facility] ([facility])[address] [place] [address] ERYTHROCYTE MEAN CORPUSCULAR HEMOGLOBIN CONCENTRATION (G/DL) BY AUTOMATED 33.5 g/dL Normal 32.0-35.0 [facility] Comment on above: Performed By: #### L [id number] ####[facility] ([facility])[address] [place] [address] Hematocrit (Bld) [Volume fraction] 39.4 % Normal 39.0-55.0 [facility] Comment on above: Performed By: #### L [id number] ####[facility] [place] [address] Hemoglobin (Bld) [Mass/Vol] 13.2 g/dL Normal 13.0-17.0 [facility] Comment on above: Performed By: #### L [id number] ####[facility] ([facility])[address] [place] [address] IMMATURE PLATELET FRACTION % 2.2 % Normal 0.8-6.3 [facility] Comment on above: Performed By: #### L [id number] ####[facility] ([facility] [place] [address] MCH (RBC) [Entitic mass] 29.7 pg Normal 27.0-33.0 [facility] Comment on above: Performed By: #### L [id number] ####[facility] ([facility] [place] [address] MCV (RBC) [Entitic vol] 88.5 fL Normal 82.0-98.0 [facility] Comment on above: Performed By: #### L [id number] ####[facility] ([facility])[address] [place] [address] PLATELETS (10*3/UL) IN BLOOD AUTOMATED COUNT 132 10*3/uL Low 150-400 [facility] Comment on above: Performed By: #### L [id number] ####[facility] ([facility])[address] [place] [address] RBC (Bld) [#/Vol] 4.45 10*6/uL Normal 4.20-5.70 [facility] Comment on above: Performed By: #### L [id number] ####[facility] ([facility])[address] [place] [address] WBC (Bld) [#/Vol] 6.95 10*3/uL Normal 4.00-10.60 [facility] Comment on above: Performed By: #### L [id number] ####[facility] ([facility])[address] [place] [address] DSon 12-05-2022 DS Normal [facility] POCT GLUCOSE METER UNSOLICIT ED RESULTSon 12-05-2022 Glucose [Mass/Vol] 147 mg/dL High 70-105 [facility] Comment on above: Order Comment: Waive d Testing in the ED is performed under the ED CLIA certificate #[id number]. Result Comment: [email or web address] [email or web address] Performed By: #### L [id number] ####[facility] [place] [address] Glucose [Mass/Vol] 185 mg/dL High 70-105 [facility] Comment on above: Order Comment: Waive d Testing in the ED is performed under the ED CLIA certificate #[id number]. Result Comment: [email or web address] [email or web address] Performed By: #### L [id number] ####[facility] ([facility])[address] [place] [address] Glucose [Mass/Vol] 153 mg/dL High 70-105 [facility] Comment on above: Order Comment: Waive d Testing in the ED is performed under the ED CLIA certificate #[id number]. Result Comment: [email or web address] [email or web address] Performed By: #### L [id number] ####[facility] ([facility])[address] [place] [address] 30on 12-04-2022 30 The patient is Moderately Stable - Low risk of patient condition declining or worsening The patient's goals for the shift include comfort The clinical goals for the shift include stable vitals Normal [facility] 30 Normal [facility] 30 The patient is Moderately Stable - Low risk of patient condition declining or worsening The patient's goals for the shift include Comfort The clinical goals for the shift include VSS Normal [facility] BASIC METABOLIC PANELon 10-2 Anion gap [Moles/Vol] 11 mmol/L Normal 7-20 [facility] Comment on above: Performed By: #### L [id number] ####[facility] ([facility])[address] [place] [address] Calcium [Mass/Vol] 8.9 mg/dL Normal 8.6-10.3 [facility] Comment on above: Performed By: #### L [id number] ####[facility] ([facility] [place] [address] Chloride [Moles/Vol] 105 mmol/L Normal 98-107 [facility] Comment on above: Performed By: #### L [id number] ####[facility] ([facility])[address] [place] [address] CO2 [Moles/Vol] 23 mmol/L Normal 21-31 [facility] Comment on above: Performed By: #### L [id number] ####[facility] ([facility])[address] [place] [address] Creatinine [Mass/Vol] 1.32 mg/dL High 0.70-1.30 [facility] Comment on above: Performed By: #### L [id number] ####[facility] ([facility])[address] [place] [address] GLOMERULAR FILTRATION RATE ML/MIN/1.73 SQ M.PREDICTED 58.0 mL/min/1.73m*2 Low >60.[address] [facility] Comment on above: Result Comment: [facility]???s estimated glomerular filtration rate (eGFR) will no [...] of individuals. Performed By: #### L [id number] ####[facility] ([facility])[address] [place] [address] Glucose [Mass/Vol] 144 mg/dL High 70-100 [facility] Comment on above: Performed By: #### L [id number] ####[facility] ([facility])[address] [place] [address] Potassium [Moles/Vol] 4.5 mmol/L Normal 3.5-5.1 [facility] Comment on above: Performed By: #### L [id number] ####[facility] ([facility])[address] [place] [address] Sodium [Moles/Vol] 134 mmol/L Low 136-145 [facility] Comment on above: Performed By: #### L [id number] ####[facility] ([facility])[address] [place] [address] Urea nitrogen [Mass/Vol] 37 mg/dL High 7-25 [facility] Comment on above: Performed By: #### L [id number] ####[facility] ([facility])[address] [place] [address] UREA NITROGEN/CREATININE (MASS RATIO) IN SER/PLAS 28.0 Normal [facility] Comment on above: Performed By: #### L [id number] ####[facility] ([facility] [address] CBCon 12-04-2022 Erythrocyte distribution width (RBC) [Ratio] 14.9 % Normal 11.5-15.0 [facility] Comment on above: Performed By: #### L [id number] ####[facility] ([facility])[address] [address] ERYTHROCYTE MEAN CORPUSCULAR HEMOGLOBIN CONCENTRATION (G/DL) BY AUTOMATED 32.6 g/dL Normal 32.0-35.0 [facility] Comment on above: Performed By: #### L [id number] ####[facility] ([facility])[address] [place], [place] [address] Hematocrit (Bld) [Volume fraction] 39.0 % Normal 39.0-55.0 [facility] Comment on above: Performed By: #### L [id number] ####[facility] (BEAKER)[address] [place], [place] [address] Hemoglobin (Bld) [Mass/Vol] 12.7 g/dL Low 13.0-17.0 [facility] Comment on above: Performed By: #### L [id number] ####[facility] (BEAKER)[address] [place], [place] [address] IMMATURE PLATELET FRACTION % 3.8 % Normal 0.8-6.3 [facility] Comment on above: Performed By: #### L [id number] ####[facility] (BE[facility])[address] [address] MCH (RBC) [Entitic mass] 29.6 pg Normal 27.0-33.0 [facility] Comment on above: Performed By: #### L [id number] ####[facility] ([facility])[address] [place] [address] MCV (RBC) [Entitic vol] 90.9 fL Normal 82.0-98.0 [facility] Comment on above: Performed By: #### L [id number] ####[facility] ([facility])[address] [place] [address] PLATELETS (10*3/UL) IN BLOOD AUTOMATED COUNT 130 10*3/uL Low 150-400 [facility] Comment on above: Performed By: #### L [id number] ####[facility] ([facility])[address] [place] [address] RBC (Bld) [#/Vol] 4.29 10*6/uL Normal 4.20-5.70 [facility] Comment on above: Performed By: #### L [id number] ####[facility] ([facility])[address] [place] [address] WBC (Bld) [#/Vol] 6.97 10*3/uL Normal 4.00-10.60 [facility] Comment on above: Performed By: #### L [id number] ####[facility] ([facility])[address] [place] [address] POCT GLUCOSE METER UNSOLICIT ED RESULTSon 12-04-2022 Glucose [Mass/Vol] 167 mg/dL High 70-105 [facility] Comment on above: Order Comment: Waive d Testing in the ED is performed under the ED CLIA certificate #[id number]. Result Comment: [email or web address] Performed By: #### L [id number] ####[facility] ([facility])[address] [place] [address] Glucose [Mass/Vol] 105 mg/dL Normal 70-105 [facility] Comment on above: Order Comment: Waive d Testing in the ED is performed under the ED CLIA certificate #[id number]. Result Comment: [email or web address] Performed By: #### L [id number] ####[facility] ([facility])[address] [place] [address] Glucose [Mass/Vol] 152 mg/dL High 70-105 [facility] Comment on above: Order Comment: Waive d Testing in the ED is performed under the ED CLIA certificate #[id number]. Result Comment: [email or web address] Performed By: #### L [id number] ####[facility] [place] [address] 30on 12-03-2022 30 The patient is Moderately Stable - Low risk of patient condition declining or worsening The patient's goals for the shift include comfort The clinical goals for the shift include stable vitals Normal [facility] 30 The patient is Moderately Stable - Low risk of patient condition declining or worsening The patient's goals for the shift include Comfort The clinical goals for the shift include VSS Normal [facility] ANESon 12-03-2022 ANES Normal [facility] ANES Normal [facility] Anesthesiaon 12-03-2022 Anesthesia [id number] Lakia Rodriguez 1950 M Date Provider Department [place] 12/03/2022 [place] [facility] Medical C No family history on file Normal [facility] BASIC METABOLIC PANELon 10-2 Anion gap [Moles/Vol] 12 mmol/L Normal 7-20 [facility] Comment on above: Performed By: #### L [id number] ####[facility] (BE[facility]ER)[address] [place] [address] Calcium [Mass/Vol] 9.6 mg/dL Normal 8.6-10.3 [facility] Comment on above: Performed By: #### L [id number] ####[facility] (BE[facility]ER)[address] [place] [address] Chloride [Moles/Vol] 101 mmol/L Normal 98-107 [facility] Comment on above: Performed By: #### L [id number] ####[facility] ([facility])[address] [place] [address] CO2 [Moles/Vol] 21 mmol/L Normal 21-31 [facility] Comment on above: Performed By: #### L [id number] ####[facility] ([facility] [place] [address] Creatinine [Mass/Vol] 1.78 mg/dL High 0.70-1.30 [facility] Comment on above: Performed By: #### L [id number] ####[facility] ([facility])[address] [place] [address] GLOMERULAR FILTRATION RATE ML/MIN/1.73 SQ M.PREDICTED 40.5 mL/min/1.73m*2 Low >60.[address] [facility] Comment on above: Result Comment: [facility]???s estimated glomerular filtration rate (eGFR) will no [...] of individuals. Performed By: #### L [id number] ####[facility] ([facility] [place] [address] Glucose [Mass/Vol] 194 mg/dL High 70-100 [facility] Comment on above: Performed By: #### L [id number] ####[facility] (BEAKER)[address] [place] [address] Potassium [Moles/Vol] 4.3 mmol/L Normal 3.5-5.1 [facility] Comment on above: Performed By: #### L [id number] ####[facility] ([facility] [place] [address] Sodium [Moles/Vol] 130 mmol/L Low 136-145 [facility] Comment on above: Performed By: #### L [id number] ####[facility] ([facility])[address] [place] [address] Urea nitrogen [Mass/Vol] 47 mg/dL High 7-25 [facility] Comment on above: Performed By: #### L [id number] ####[facility] ([facility])[address] [place] [address] UREA NITROGEN/CREATININE (MASS RATIO) IN SER/PLAS 26.4 Normal [facility] Comment on above: Performed By: #### L [id number] ####[facility] ([facility])[address] [place] [address] CBCon 12-03-2022 Erythrocyte distribution width (RBC) [Ratio] 14.9 % Normal 11.5-15.0 [facility] Comment on above: Performed By: #### L [id number] ####[facility] ([facility])[address] [place] [address] ERYTHROCYTE MEAN CORPUSCULAR HEMOGLOBIN CONCENTRATION (G/DL) BY AUTOMATED 32.9 g/dL Normal 32.0-35.0 [facility] Comment on above: Performed By: #### L [id number] ####[facility] ([facility])[address] [place] [address] Hematocrit (Bld) [Volume fraction] 41.0 % Normal 39.0-55.0 [facility] Comment on above: Performed By: #### L [id number] ####[facility] ([facility])[address] [place] [address] Hemoglobin (Bld) [Mass/Vol] 13.5 g/dL Normal 13.0-17.0 [facility] Comment on above: Performed By: #### L [id number] ####[facility] ([facility] [place] [address] MCH (RBC) [Entitic mass] 29.3 pg Normal 27.0-33.0 [facility] Comment on above: Performed By: #### L [id number] ####[facility] ([facility] [place] [address] MCV (RBC) [Entitic vol] 89.1 fL Normal 82.0-98.0 [facility] Comment on above: Performed By: #### L [id number] ####[facility] ([facility])[address] [place] [address] PLATELETS (10*3/UL) IN BLOOD AUTOMATED COUNT 134 10*3/uL Low 150-400 [facility] Comment on above: Performed By: #### L [id number] ####[facility] ([facility])[address] [place] [address] RBC (Bld) [#/Vol] 4.60 10*6/uL Normal 4.20-5.70 [facility] Comment on above: Performed By: #### L [id number] ####[facility] ([facility])[address] [place] [address] WBC (Bld) [#/Vol] 10.62 10*3/uL High 4.00-10.60 [facility] Comment on above: Performed By: #### L [id number] ####[facility] ([facility])[address] [place] [address] CONSULTon 12-03-2022 CONSULT [facility] HPon 12-03-2022 HP [facility] NURSNOTEon 12-03-2022 NURSNOTE Report called to Shalini RN 3AB Amy Valiente PSYCHIATRIC NP [facility] POCT GLUCOSE METER UNSOLICIT ED RESULTSon 12-03-2022 Glucose [Mass/Vol] 147 mg/dL High 70-105 [facility] Comment on above: Order Comment: Waive d Testing in the ED is performed under the ED CLIA certificate #[id number]. Result Comment: [email or web address] Performed By: #### L [id number] ####[facility] ([facility])[address] [place] [address] Glucose [Mass/Vol] 148 mg/dL High 70-105 [facility] Comment on above: Order Comment: Waive d Testing in the ED is performed under the ED CLIA certificate #[id number]. Result Comment: [email or web address] Performed By: #### L [id number] ####[facility] ([facility]ER)[address] [place] [address] Glucose [Mass/Vol] 165 mg/dL High 70-105 [facility] Comment on above: Order Comment: Waive d Testing in the ED is performed under the ED CLIA certificate #[id number]. Result Comment: [email or web address] Performed By: #### L [id number] ####[facility] ([facility])[address] [place] [address] Glucose [Mass/Vol] 158 mg/dL High 70-105 [facility] Comment on above: Order Comment: Waive d Testing in the ED is performed under the ED CLIA certificate #[id number]. Result Comment: [email or web address] Performed By: #### L [id number] ####[facility] ([facility])[address] [place] [address] TYPE AND SCREENon 12-03-2022 AB SCREEN Negative [facility] Comment on above: Performed By: #### L [id number] ####[facility], ABO group Nom (Bld) AB Normal [facility] Comment on above: Performed By: #### L [id number] ####[facility], RH TYPE IN BLOOD Positive Normal [facility] Comment on above: Performed By: #### L [id number] ####[facility], 30on 12-02-2022 30 Normal [facility] 30 Normal [facility] BASIC METABOLIC PANELon 11-12 Anion gap [Moles/Vol] 11 mmol/L Normal 7-20 [facility] Comment on above: Performed By: #### L [id number] ####[facility] ([facility])[address] [place] [address] Calcium [Mass/Vol] 9.6 mg/dL Normal 8.6-10.3 [facility] Comment on above: Performed By: #### L [id number] ####[facility] ([facility] [place] [address] Chloride [Moles/Vol] 103 mmol/L Normal 98-107 [facility] Comment on above: Performed By: #### L [id number] ####[facility] ([facility])[address] [place] [address] CO2 [Moles/Vol] 22 mmol/L Normal 21-31 [facility] Comment on above: Performed By: #### L [id number] ####[facility] ([facility])[address] [place] [address] Creatinine [Mass/Vol] 1.73 mg/dL High 0.70-1.30 [facility] Comment on above: Performed By: #### L [id number] ####[facility] ([facility])[address] [place] [address] GLOMERULAR FILTRATION RATE ML/MIN/1.73 SQ M.PREDICTED 41.9 mL/min/1.73m*2 Low >60.[address] [facility] Comment on above: Result Comment: The [facility]???s estimated glomerular filtration rate (eGFR) will no [...] of individuals. Performed By: #### L [id number] ####[facility] ([facility] [place] [address] Glucose [Mass/Vol] 168 mg/dL High 70-100 [facility] Comment on above: Performed By: #### L [id number] ####[facility] ([facility])[address] [place] [address] Potassium [Moles/Vol] 4.3 mmol/L Normal 3.5-5.1 [facility] Comment on above: Performed By: #### L [id number] ####[facility] (BE[facility]ER)[address] [place] [address] Sodium [Moles/Vol] 132 mmol/L Low 136-145 [facility] Comment on above: Performed By: #### L [id number] ####[facility] (BE[facility]ER)[address] [place] [address] Urea nitrogen [Mass/Vol] 42 mg/dL High 7-25 [facility] Comment on above: Performed By: #### L [id number] ####[facility] ([facility]ER)[address] [place] [address] UREA NITROGEN/CREATININE (MASS RATIO) IN SER/PLAS 24.3 Normal [facility] Comment on above: Performed By: #### L [id number] ####[facility] ([facility])[address] [place] [address] CBCon 12-02-2022 Erythrocyte distribution width (RBC) [Ratio] 15.0 % Normal 11.5-15.0 [facility] Comment on above: Performed By: #### L [id number] ####[facility] (BE[facility]ER)[address] [place] [address] ERYTHROCYTE MEAN CORPUSCULAR HEMOGLOBIN CONCENTRATION (G/DL) BY AUTOMATED 32.8 g/dL Normal 32.0-35.0 [facility] Comment on above: Performed By: #### L [id number] ####[facility] (BE[facility]ER)[address] [place] [address] Hematocrit (Bld) [Volume fraction] 40.0 % Normal 39.0-55.0 [facility] Comment on above: Performed By: #### L [id number] ####[facility] ([facility]ER)[address] [place] [address] Hemoglobin (Bld) [Mass/Vol] 13.1 g/dL Normal 13.0-17.0 [facility] Comment on above: Result Comment: Resu lts checked Performed By: #### L [id number] ####[facility] [place] [address] MCH (RBC) [Entitic mass] 29.0 pg Normal 27.0-33.0 [facility] Comment on above: Performed By: #### L [id number] ####[facility] ([facility])[address] [place] [address] MCV (RBC) [Entitic vol] 88.7 fL Normal 82.0-98.0 [facility] Comment on above: Performed By: #### L [id number] ####[facility] ([facility] [place] [address] PLATELETS (10*3/UL) IN BLOOD AUTOMATED COUNT 129 10*3/uL Low 150-400 [facility] Comment on above: Performed By: #### L [id number] ####[facility] ([facility])[address] [place] [address] RBC (Bld) [#/Vol] 4.51 10*6/uL Normal 4.20-5.70 [facility] Comment on above: Performed By: #### L [id number] ####[facility] [place] [address] WBC (Bld) [#/Vol] 13.62 10*3/uL High 4.00-10.60 [facility] Comment on above: Performed By: #### L [id number] ####[facility] [place] [address] POCT GLUCOSE METER UNSOLICIT ED RESULTSon 12-02-2022 Glucose [Mass/Vol] 208 mg/dL High 70-105 [facility] Comment on above: Order Comment: Waive d Testing in the ED is performed under the ED CLIA certificate #[id number]. Result Comment: [email or web address] Performed By: #### L [id number] ####[facility] ([facility] [place] [address] Glucose [Mass/Vol] 224 mg/dL High 70-105 [facility] Comment on above: Order Comment: Waive d Testing in the ED is performed under the ED CLIA certificate #[id number]. Result Comment: [email or web address] Performed By: #### L [id number] ####[facility] ([facility])[address] [place] [address] Glucose [Mass/Vol] 173 mg/dL High 70-105 [facility] Comment on above: Order Comment: Waive d Testing in the ED is performed under the ED CLIA certificate #[id number]. Result Comment: [email or web address] Performed By: #### L [id number] ####[facility] ([facility])[address] [place] [address] Glucose [Mass/Vol] 135 mg/dL High 70-105 [facility] Comment on above: Order Comment: Waive d Testing in the ED is performed under the ED CLIA certificate #[id number]. Result Comment: [email or web address] Performed By: #### L [id number] ####[facility] ([facility])[address] [place] [address] 30on 12-01-2022 30 Normal [facility] APTTon 12-01-2022 ACTIVATED PARTIAL THROMBOPLASTIN TIME IN PPP BY COAGULATION ASSAY 28.0 Seconds Normal 25.0-35.0 [facility] Comment on above: Result Comment: Clin ical significance of the APTT is questionable in the presence of heparin. Performed By: #### L [id number] ####[facility] ([facility])[address] [place] [address] BASIC METABOLIC PANELon 10-2 Anion gap [Moles/Vol] 16 mmol/L Normal 7-20 [facility] Comment on above: Performed By: #### L [id number] ####[facility] ([facility])[address] [place] [address] Calcium [Mass/Vol] 10.4 mg/dL High 8.6-10.3 [facility] Comment on above: Performed By: #### L [id number] ####[facility] [place] [address] Chloride [Moles/Vol] 101 mmol/L Normal 98-107 [facility] Comment on above: Performed By: #### L [id number] ####[facility] ([facility])[address] [place] [address] CO2 [Moles/Vol] 21 mmol/L Normal 21-31 [facility] Comment on above: Performed By: #### L [id number] ####[facility] ([facility])[address] [place] [address] Creatinine [Mass/Vol] 1.78 mg/dL High 0.70-1.30 [facility] Comment on above: Performed By: #### L [id number] ####[facility] ([facility])[address] [place] [address] GLOMERULAR FILTRATION RATE ML/MIN/1.73 SQ M.PREDICTED 40.5 mL/min/1.73m*2 Low >60.[address] [facility] Comment on above: Result Comment: [facility]???s estimated glomerular filtration rate (eGFR) will no [...] of individuals. Performed By: #### L [id number] ####[facility] [place] [address] Glucose [Mass/Vol] 260 mg/dL High 70-100 [facility] Comment on above: Performed By: #### L [id number] ####[facility] ([facility]ER)[address] [place] [address] Potassium [Moles/Vol] 5.0 mmol/L Normal 3.5-5.1 [facility] Comment on above: Performed By: #### L [id number] ####[facility] (BEAKER)[address] [place] [address] Sodium [Moles/Vol] 133 mmol/L Low 136-145 [facility] Comment on above: Performed By: #### L [id number] ####[facility] (BEAKER)[address] [place] [address] Urea nitrogen [Mass/Vol] 32 mg/dL High 7-25 [facility] Comment on above: Performed By: #### L [id number] ####[facility] (BE[facility]ER)[address] [place] [address] UREA NITROGEN/CREATININE (MASS RATIO) IN SER/PLAS 18.0 Normal [facility] Comment on above: Performed By: #### L [id number] ####[facility] ([facility])[address] [place] [address] CBCon 12-01-2022 Erythrocyte distribution width (RBC) [Ratio] 14.7 % Normal 11.5-15.0 [facility] Comment on above: Performed By: #### L [id number] ####[facility] (BE[facility])[address] [place] [address] ERYTHROCYTE MEAN CORPUSCULAR HEMOGLOBIN CONCENTRATION (G/DL) BY AUTOMATED 33.0 g/dL Normal 32.0-35.0 [facility] Comment on above: Performed By: #### L [id number] ####[facility] (BE[facility]ER)[address] [place] [address] Hematocrit (Bld) [Volume fraction] 46.6 % Normal 39.0-55.0 [facility] Comment on above: Performed By: #### L [id number] ####[facility] ([facility]ER)[address] [place] [address] Hemoglobin (Bld) [Mass/Vol] 15.4 g/dL Normal 13.0-17.0 [facility] Comment on above: Performed By: #### L [id number] ####[facility] [place] [address] MCH (RBC) [Entitic mass] 29.3 pg Normal 27.0-33.0 [facility] Comment on above: Performed By: #### L [id number] ####[facility] [place] [address] MCV (RBC) [Entitic vol] 88.8 fL Normal 82.0-98.0 [facility] Comment on above: Performed By: #### L [id number] ####[facility])[address] [place] [address] PLATELETS (10*3/UL) IN BLOOD AUTOMATED COUNT 181 10*3/uL Normal 150-400 [facility] Comment on above: Performed By: #### L [id number] ####[facility] ([facility])[address] [place] [address] RBC (Bld) [#/Vol] 5.25 10*6/uL Normal 4.20-5.70 [facility] Comment on above: Performed By: #### L [id number] ####[facility] ([facility])[address] [place] [address] WBC (Bld) [#/Vol] 23.51 10*3/uL High 4.00-10.60 [facility] Comment on above: Performed By: #### L [id number] ####[facility])[address] [place] [address] NURSNOTEon 12-01-2022 NURSNOTE Normal [facility] POCT GLUCOSE METER UNSOLICIT ED RESULTSon 12-01-2022 Glucose [Mass/Vol] 204 mg/dL High 70-105 [facility] Comment on above: Order Comment: Waive d Testing in the ED is performed under the ED CLIA certificate #[id number]. Result Comment: [email or web address] Performed By: #### L [id number] ####[facility] ([facility])[address] [place] [address] Glucose [Mass/Vol] 248 mg/dL High 70-105 [facility] Comment on above: Order Comment: Waive d Testing in the ED is performed under the ED CLIA certificate #[id number]. Result Comment: [email or web address] Performed By: #### L [id number] ####[facility] ([facility])[address] [place] [address] Glucose [Mass/Vol] 270 mg/dL High 70-105 [facility] Comment on above: Order Comment: Waive d Testing in the ED is performed under the ED CLIA certificate #[id number]. Result Comment: [email or web address] Performed By: #### L [id number] ####[facility] ([facility])[address] [place] [address] PROTIME-INRon 12-01-2022 INR IN PPP BY COAGULATION ASSAY 1.21 High 0.90-1.10 [facility] Comment on above: Result Comment: ACCC P [...] CHEST 1995;108:231S-246S. Performed By: #### L [id number] ####[facility] ([facility])[address] [place] [address] PROTHROMBIN TIME (PT) IN PPP BY COAGULATION ASSAY 15.3 Seconds High 12.3-14.8 [facility] Comment on above: Performed By: #### L [id number] ####[facility] ([facility])[address] [place] [address] 30on 11-30-2022 30 Normal [facility] 30 Normal [facility] BASIC METABOLIC PANELon 11-12 Anion gap [Moles/Vol] 10 mmol/L Normal 7-20 [facility] Comment on above: Performed By: #### L [id number] ####[facility] ([facility])[address] [place] [address] Calcium [Mass/Vol] 7.1 mg/dL Low 8.6-10.3 [facility] Comment on above: Performed By: #### L [id number] ####[facility] ([facility])[address] [place] [address] Chloride [Moles/Vol] 110 mmol/L High 98-107 [facility] Comment on above: Performed By: #### L [id number] ####[facility] ([facility])[address] [place] [address] CO2 [Moles/Vol] 22 mmol/L Normal 21-31 [facility] Comment on above: Performed By: #### L [id number] ####[facility] (BEAKER)[address] [place] [address] Creatinine [Mass/Vol] 1.25 mg/dL Normal 0.70-1.30 [facility] Comment on above: Performed By: #### L [id number] ####[facility] (BEAKER)[address] [place] [address] GLOMERULAR FILTRATION RATE ML/MIN/1.73 SQ M.PREDICTED 61.9 mL/min/1.73m*2 Normal >60.[address] [facility] Comment on above: Result Comment: [facility]???s estimated glomerular filtration rate (eGFR) will no [...] of individuals. Performed By: #### L [id number] ####[facility] ([facility])[address] [place] [address] Glucose [Mass/Vol] 211 mg/dL High 70-100 [facility] Comment on above: Performed By: #### L [id number] ####[facility] ([facility])[address] [place] [address] Potassium [Moles/Vol] 3.6 mmol/L Normal 3.5-5.1 [facility] Comment on above: Performed By: #### L [id number] ####[facility] ([facility])[address] [place] [address] Sodium [Moles/Vol] 138 mmol/L Normal 136-145 [facility] Comment on above: Performed By: #### L [id number] ####[facility] [place] [address] Urea nitrogen [Mass/Vol] 17 mg/dL Normal 7-25 [facility] Comment on above: Performed By: #### L [id number] ####[facility] ([facility])[address] [place] [address] UREA NITROGEN/CREATININE (MASS RATIO) IN SER/PLAS 13.6 Normal [facility] Comment on above: Performed By: #### L [id number] ####[facility] ([facility])[address] [place] [address] Anion gap [Moles/Vol] 10 mmol/L Normal 7-20 [facility] Comment on above: Performed By: #### L [id number] ####[facility] ([facility])[address] [place] [address] Calcium [Mass/Vol] 9.5 mg/dL Normal 8.6-10.3 [facility] Comment on above: Performed By: #### L [id number] ####[facility] ([facility])[address] [place] [address] Chloride [Moles/Vol] 102 mmol/L Normal 98-107 [facility] Comment on above: Performed By: #### L [id number] ####[facility] ([facility])[address] [place] [address] CO2 [Moles/Vol] 27 mmol/L Normal 21-31 [facility] Comment on above: Performed By: #### L [id number] ####[facility] ([facility])[address] [place] [address] Creatinine [Mass/Vol] 1.39 mg/dL High 0.70-1.30 [facility] Comment on above: Performed By: #### L [id number] ####[facility] ([facility])[address] [place] [address] GLOMERULAR FILTRATION RATE ML/MIN/1.73 SQ M.PREDICTED 54.5 mL/min/1.73m*2 Low >60.[address] [facility] Comment on above: Result Comment: [facility]???s estimated glomerular filtration rate (eGFR) will no [...] of individuals. Performed By: #### L [id number] ####[facility] ([facility])[address] [place] [address] Glucose [Mass/Vol] 171 mg/dL High 70-100 [facility] Comment on above: Performed By: #### L [id number] ####[facility] ([facility] [place] [address] Potassium [Moles/Vol] 4.0 mmol/L Normal 3.5-5.1 [facility] Comment on above: Performed By: #### L [id number] ####[facility] ([facility])[address] [place] [address] Sodium [Moles/Vol] 135 mmol/L Low 136-145 [facility] Comment on above: Performed By: #### L [id number] ####[facility] ([facility])[address] [place] [address] Urea nitrogen [Mass/Vol] 20 mg/dL Normal 7-25 [facility] Comment on above: Performed By: #### L [id number] ####[facility] ([facility])[address] [place] [address] UREA NITROGEN/CREATININE (MASS RATIO) IN SER/PLAS 14.4 Normal [facility] Comment on above: Performed By: #### L [id number] ####[facility] ([facility])[address] [place] [address] CBCon 11-30-2022 Erythrocyte distribution width (RBC) [Ratio] 14.2 % Normal 11.5-15.0 [facility] Comment on above: Performed By: #### L [id number] ####[facility] ([facility])[address] [place] [address] ERYTHROCYTE MEAN CORPUSCULAR HEMOGLOBIN CONCENTRATION (G/DL) BY AUTOMATED 33.3 g/dL Normal 32.0-35.0 [facility] Comment on above: Performed By: #### L [id number] ####[facility] ([facility] [place] [address] Hematocrit (Bld) [Volume fraction] 41.7 % Normal 39.0-55.0 [facility] Comment on above: Performed By: #### L [id number] ####[facility] ([facility] [place] [address] Hemoglobin (Bld) [Mass/Vol] 13.9 g/dL Normal 13.0-17.0 [facility] Comment on above: Performed By: #### L [id number] ####[facility] ([facility])[address] [place] [address] MCH (RBC) [Entitic mass] 29.5 pg Normal 27.0-33.0 [facility] Comment on above: Performed By: #### L [id number] ####[facility] ([facility])[address] [place] [address] MCV (RBC) [Entitic vol] 88.5 fL Normal 82.0-98.0 [facility] Comment on above: Performed By: #### L [id number] ####[facility] ([facility])[address] [place] [address] PLATELETS (10*3/UL) IN BLOOD AUTOMATED COUNT 183 10*3/uL Normal 150-400 [facility] Comment on above: Performed By: #### L [id number] ####[facility] ([facility])[address] [place] [address] RBC (Bld) [#/Vol] 4.71 10*6/uL Normal 4.20-5.70 [facility] Comment on above: Performed By: #### L [id number] ####[facility] ([facility])[address] [place] [address] WBC (Bld) [#/Vol] 8.24 10*3/uL Normal 4.00-10.60 [facility] Comment on above: Performed By: #### L [id number] ####[facility] ([facility])[address] [place] [address] CBC WITH AUTO DIFFERENTIALon 11-30-2022 Basophils (Bld) [#/Vol] 0.02 10*3/uL Normal 0.00-0.20 [facility] Comment on above: Performed By: #### L [id number] ####[facility] (BEAKER)[address] [place] [address] Basophils/100 WBC (Bld) 0.2 % Normal 0.0-1.0 [facility] Comment on above: Performed By: #### L [id number] ####[facility] (BEAKER)[address] [place] [address] Eosinophils (Bld) [#/Vol] 0.11 10*3/uL Normal 0.00-0.50 [facility] Comment on above: Performed By: #### L [id number] ####[facility] (BEAKER)[address] [place] [address] Eosinophils/100 WBC (Bld) 1.2 % Normal 0.0-6.0 [facility] Comment on above: Performed By: #### L [id number] ####[facility] ([facility] [place] [address] Erythrocyte distribution width (RBC) [Ratio] 14.5 % Normal 11.5-15.0 [facility] Comment on above: Performed By: #### L [id number] ####[facility] (BEAKER)[address] [place] [address] ERYTHROCYTE MEAN CORPUSCULAR HEMOGLOBIN CONCENTRATION (G/DL) BY AUTOMATED 33.1 g/dL Normal 32.0-35.0 [facility] Comment on above: Performed By: #### L [id number] ####[facility] (BEAKER)[address] [place] [address] Hematocrit (Bld) [Volume fraction] 37.2 % Low 39.0-55.0 [facility] Comment on above: Performed By: #### L [id number] ####[facility] (BEAKER)[address] [place] [address] Hemoglobin (Bld) [Mass/Vol] 12.3 g/dL Low 13.0-17.0 [facility] Comment on above: Performed By: #### L [id number] ####[facility] (BEAKER)[address] [place] [address] Immature granulocytes (Bld) [#/Vol] 0.06 10*3/uL Normal 0.00-0.20 [facility] Comment on above: Performed By: #### L [id number] ####[facility] (BEAKER)[address] [place] [address] Immature granulocytes/100 WBC (Bld) 0.6 % Normal 0.0-1.0 [facility] Comment on above: Performed By: #### L [id number] ####[facility] (BEAKER)[address] [place] [address] Lymphocytes (Bld) [#/Vol] 0.97 10*3/uL Low 1.20-4.00 [facility] Comment on above: Performed By: #### L [id number] ####[facility] (BEAKER)[address] [place] [address] Lymphocytes/100 WBC (Bld) 10.3 % Low 20.0-45.0 [facility] Comment on above: Performed By: #### L [id number] ####[facility] ([facility] [place] [address] MCH (RBC) [Entitic mass] 29.5 pg Normal 27.0-33.0 [facility] Comment on above: Performed By: #### L [id number] ####[facility] (BEAKER)[address] [place] [address] MCV (RBC) [Entitic vol] 89.2 fL Normal 82.0-98.0 [facility] Comment on above: Performed By: #### L [id number] ####[facility] (BEAKER)[address] [place] [address] Monocytes (Bld) [#/Vol] 0.78 10*3/uL Normal 0.10-1.00 [facility] Comment on above: Performed By: #### L [id number] ####[facility] (BEAKER)[address] [place] [address] Monocytes/100 WBC (Bld) 8.3 % Normal 5.0-12.0 [facility] Comment on above: Performed By: #### L [id number] ####[facility] ([facility])[address] [place] [address] Neutrophils (Bld) [#/Vol] 7.48 10*3/uL Normal 1.60-7.60 [facility] Comment on above: Performed By: #### L [id number] ####[facility] ([facility])[address] [place] [address] Neutrophils/100 WBC (Bld) 79.4 % High 40.0-72.0 [facility] Comment on above: Performed By: #### L [id number] ####[facility] ([facility])[address] [place] [address] NRBC (PER 100 WBCS) BY AUTOMATED COUNT 0.0 % Normal 0 [facility] Comment on above: Performed By: #### L [id number] ####[facility] ([facility])[address] [place] [address] PLATELETS (10*3/UL) IN BLOOD AUTOMATED COUNT 172 10*3/uL Normal 150-400 [facility] Comment on above: Performed By: #### L [id number] ####[facility] ([facility])[address] [place] [address] RBC (Bld) [#/Vol] 4.17 10*6/uL Low 4.20-5.70 [facility] Comment on above: Performed By: #### L [id number] ####[facility] ([facility])[address] [place] [address] WBC (Bld) [#/Vol] 9.42 10*3/uL Normal 4.00-10.60 [facility] Comment on above: Performed By: #### L [id number] ####[facility] ([facility])[address] [place] [address] CTA ABDOMEN PELVIS W AND/OR WO IV CONTRASTon 11-30-2022 CTA ABDOMEN PELVIS W AND/OR WO IV CONTRAST Normal [facility] CTA CHEST W AND/OR WO IV CON TRASTon 11-30-2022 CTA CHEST W AND/OR WO IV CONTRAST Normal [facility] DSon 11-30-2022 DS This report has been cancelled. Normal [facility] NURSNOTEon 11-30-2022 NURSNOTE Normal [facility] NURSNOTE Normal [facility] POCT GLUCOSE METER UNSOLICIT ED RESULTSon 11-30-2022 Glucose [Mass/Vol] 228 mg/dL High 70-105 [facility] Comment on above: Order Comment: Waive d Testing in the ED is performed under the ED CLIA certificate #[id number]. Result Comment: [email or web address] Performed By: #### L [id number] ####[facility] (Convertro)[address] [place] [address] Glucose [Mass/Vol] 228 mg/dL High 70-105 [facility] Comment on above: Order Comment: Waive d Testing in the ED is performed under the ED CLIA certificate #[id number]. Result Comment: [email or web address] Performed By: #### L [id number] ####[facility] (Convert[facility])[address] [place] [address] Glucose [Mass/Vol] 219 mg/dL High 70-105 [facility] Comment on above: Order Comment: Waive d Testing in the ED is performed under the ED CLIA certificate #[id number]. Result Comment: [email or web address] Performed By: #### L [id number] ####[facility] ([facility])[address] [place] [address] Glucose [Mass/Vol] 186 mg/dL High 70-105 [facility] Comment on above: Order Comment: Waive d Testing in the ED is performed under the ED CLIA certificate #[id number]. Result Comment: [email or web address] Performed By: #### L [id number] ####[facility] ([facility])[address] [place] [address] Glucose [Mass/Vol] 217 mg/dL High 70-105 [facility] Comment on above: Order Comment: Waive d Testing in the ED is performed under the ED CLIA certificate #[id number]. Result Comment: [email or web address] Performed By: #### L [id number] ####[facility] ([facility])[address] [place] [address] Glucose [Mass/Vol] 175 mg/dL High 70-105 [facility] Comment on above: Order Comment: Waive d Testing in the ED is performed under the ED CLIA certificate #[id number]. Result Comment: [email or web address] Performed By: #### L [id number] ####[facility] ([facility])[address] [place] [address] TROPONIN Ion 11-30-2022 Troponin I.cardiac [Mass/Vol] 0.05 ng/mL High 0.00-0.04 [facility] Comment on above: Performed By: #### L [id number] ####[facility] ([facility])[address] [facility] [place] [address] 30on 11-29-2022 30 Normal [facility] 30 Normal [facility] 30 Normal [facility] ANESon 11-29-2022 ANES Normal [facility] ANTI-XA (HEPARIN LEVEL)on HEPARIN UNFRACTIONATED (U/ML) IN PPP BY CHROMOGENIC METHOD 0.42 IU/mL Normal 0.3-0.7 [facility] Comment on above: Result Comment: [place] roxaban and Apixaban will interfere with the anti Xa assay used to monitor UFH and LMWH. Performed By: #### L [id number] ####[facility] ([facility])[address] [place] [address] HEPARIN UNFRACTIONATED (U/ML) IN PPP BY CHROMOGENIC METHOD 0.74 IU/mL High 0.3-0.7 [facility] Comment on above: Result Comment: [place] roxaban and Apixaban will interfere with the anti Xa assay used to monitor UFH and LMWH. Performed By: #### L [id number] ####[facility] ([facility])[address] [place] [address] BASIC METABOLIC PANELon 10- Anion gap [Moles/Vol] 9 mmol/L Normal 7-20 [facility] Comment on above: Performed By: #### L [id number] ####[facility] ([facility])[address] [facility] [place] [address] Calcium [Mass/Vol] 9.5 mg/dL Normal 8.6-10.3 [facility] Comment on above: Performed By: #### L [id number] ####[facility] ([facility])[address] [facility] [place] [address] Chloride [Moles/Vol] 103 mmol/L Normal 98-107 [facility] Comment on above: Performed By: #### L [id number] ####[facility] ([facility])[address] [facility] [place] [address] CO2 [Moles/Vol] 28 mmol/L Normal 21-31 [facility] Comment on above: Performed By: #### L [id number] ####[facility] ([facility])[address] [facility] [place] [address] Creatinine [Mass/Vol] 1.44 mg/dL High 0.70-1.30 [facility] Comment on above: Performed By: #### L [id number] ####[facility] ([facility])[address] [place] [address] GLOMERULAR FILTRATION RATE ML/MIN/1.73 SQ M.PREDICTED 52.3 mL/min/1.73m*2 Low >60.[address] [facility] Comment on above: Result Comment: [facility]???s estimated glomerular filtration rate (eGFR) will no [...] of individuals. Performed By: #### L [id number] ####[facility] [place] [address] Glucose [Mass/Vol] 178 mg/dL High 70-100 [facility] Comment on above: Performed By: #### L [id number] ####[facility] ([facility])[address] [place] [address] Potassium [Moles/Vol] 4.1 mmol/L Normal 3.5-5.1 [facility] Comment on above: Performed By: #### L [id number] ####[facility] [place] [address] Sodium [Moles/Vol] 136 mmol/L Normal 136-145 [facility] Comment on above: Performed By: #### L [id number] ####[facility] ([facility] [place] [address] Urea nitrogen [Mass/Vol] 17 mg/dL Normal 7-25 [facility] Comment on above: Performed By: #### L [id number] ####[facility] ([facility] [place] [address] UREA NITROGEN/CREATININE (MASS RATIO) IN SER/PLAS 11.8 Normal [facility] Comment on above: Performed By: #### L [id number] ####[facility] ([facility])[address] [place] [address] CBCon 11-29-2022 Erythrocyte distribution width (RBC) [Ratio] 14.4 % Normal 11.5-15.0 [facility] Comment on above: Performed By: #### L [id number] ####[facility] (BEAKER)[address] [place] [address] ERYTHROCYTE MEAN CORPUSCULAR HEMOGLOBIN CONCENTRATION (G/DL) BY AUTOMATED 34.0 g/dL Normal 32.0-35.0 [facility] Comment on above: Performed By: #### L [id number] ####[facility] ([facility])[address] [place] [address] Hematocrit (Bld) [Volume fraction] 41.5 % Normal 39.0-55.0 [facility] Comment on above: Performed By: #### L [id number] ####[facility] ([facility])[address] [place] [address] Hemoglobin (Bld) [Mass/Vol] 14.1 g/dL Normal 13.0-17.0 [facility] Comment on above: Performed By: #### L [id number] ####[facility] ([facility])[address] [place] [address] MCH (RBC) [Entitic mass] 29.6 pg Normal 27.0-33.0 [facility] Comment on above: Performed By: #### L [id number] ####[facility] ([facility])[address] [place] [address] MCV (RBC) [Entitic vol] 87.2 fL Normal 82.0-98.0 [facility] Comment on above: Performed By: #### L [id number] ####[facility] ([facility])[address] [place] [address] PLATELETS (10*3/UL) IN BLOOD AUTOMATED COUNT 180 10*3/uL Normal 150-400 [facility] Comment on above: Performed By: #### L [id number] ####[facility] ([facility])[address] [place] [address] RBC (Bld) [#/Vol] 4.76 10*6/uL Normal 4.20-5.70 [facility] Comment on above: Performed By: #### L [id number] ####[facility] ([facility])[address] [place] [address] WBC (Bld) [#/Vol] 6.10 10*3/uL Normal 4.00-10.60 [facility] Comment on above: Performed By: #### L [id number] ####[facility] (BEAKER)[address] [place] [address] CONSULTon 11-29-2022 CONSULT [facility] HPon 11-29-2022 HP H&P reviewed. The patient was examined and there are no changes to the H&P. [facility] POCT GLUCOSE METER UNSOLICIT ED RESULTSon 11-29-2022 Glucose [Mass/Vol] 168 mg/dL High 70-105 [facility] Comment on above: Order Comment: Waive d Testing in the ED is performed under the ED CLIA certificate #[id number]. Result Comment: [email or web address] Performed By: #### L [id number] ####[facility] ([facility])[address] [place] [address] Glucose [Mass/Vol] 122 mg/dL High 70-105 [facility] Comment on above: Order Comment: Waive d Testing in the ED is performed under the ED CLIA certificate #[id number]. Result Comment: [email or web address] Performed By: #### L [id number] ####[facility] (BEAKER)[address] [place] [address] Glucose [Mass/Vol] 144 mg/dL High 70-105 [facility] Comment on above: Order Comment: Waive d Testing in the ED is performed under the ED CLIA certificate #[id number]. Result Comment: [email or web address] Performed By: #### L [id number] ####[facility] (BEAKER)[address] [place] [address] Glucose [Mass/Vol] 157 mg/dL High 70-105 [facility] Comment on above: Order Comment: Waive d Testing in the ED is performed under the ED CLIA certificate #[id number]. Result Comment: [email or web address] Performed By: #### L [id number] ####[facility] (BEAKER)[address] [place] [address] 30on 11-28-2022 30 [facility] 30 Normal [facility] 30 Normal [facility] ANTI-XA (HEPARIN LEVEL)on HEPARIN UNFRACTIONATED (U/ML) IN PPP BY CHROMOGENIC METHOD 0.47 IU/mL Normal 0.3-0.7 [facility] Comment on above: Result Comment: [place] roxaban and Apixaban will interfere with the anti Xa assay used to monitor UFH and LMWH. Performed By: #### L [id number] ####[facility] (BEAKER)[address] [place] [address] HEPARIN UNFRACTIONATED (U/ML) IN PPP BY CHROMOGENIC METHOD 0.40 IU/mL Normal 0.3-0.7 [facility] Comment on above: Result Comment: [place] roxaban and Apixaban will interfere with the anti Xa assay used to monitor UFH and LMWH. Performed By: #### L [id number] ####[facility] ([facility])[address] [place] [address] HEPARIN UNFRACTIONATED (U/ML) IN PPP BY CHROMOGENIC METHOD 0.23 IU/mL Low 0.3-0.7 [facility] Comment on above: Result Comment: [place] roxaban and Apixaban will interfere with the anti Xa assay used to monitor UFH and LMWH. Performed By: #### L [id number] ####[facility] ([facility])[address] [place] [address] BASIC METABOLIC PANELon 11-11 Anion gap [Moles/Vol] 10 mmol/L Normal 7-20 [facility] Comment on above: Performed By: #### L [id number] ####[facility] ([facility])[address] [place] [address] Calcium [Mass/Vol] 8.9 mg/dL Normal 8.6-10.3 [facility] Comment on above: Performed By: #### L [id number] ####[facility] ([facility])[address] [place] [address] Chloride [Moles/Vol] 105 mmol/L Normal 98-107 [facility] Comment on above: Performed By: #### L [id number] ####[facility] [place] [address] CO2 [Moles/Vol] 25 mmol/L Normal 21-31 [facility] Comment on above: Performed By: #### L [id number] ####[facility] ([facility])[address] [place] [address] Creatinine [Mass/Vol] 1.22 mg/dL Normal 0.70-1.30 [facility] Comment on above: Performed By: #### L [id number] ####[facility] ([facility])[address] [place] [address] GLOMERULAR FILTRATION RATE ML/MIN/1.73 SQ M.PREDICTED 63.8 mL/min/1.73m*2 Normal >60.[address] [facility] Comment on above: Result Comment: [facility]???s estimated glomerular filtration rate (eGFR) will no [...] of individuals. Performed By: #### L [id number] ####[facility] [place] [address] Glucose [Mass/Vol] 153 mg/dL High 70-100 [facility] Comment on above: Performed By: #### L [id number] ####[facility] C[facility])[address] [place] [address] Potassium [Moles/Vol] 3.8 mmol/L Normal 3.5-5.1 [facility] Comment on above: Performed By: #### L [id number] ####[facility] [place] [address] Sodium [Moles/Vol] 136 mmol/L Normal 136-145 [facility] Comment on above: Performed By: #### L [id number] ####[facility] ([facility] [place] [address] Urea nitrogen [Mass/Vol] 14 mg/dL Normal 7-25 [facility] Comment on above: Performed By: #### L [id number] ####[facility] ([facility] [place] [address] UREA NITROGEN/CREATININE (MASS RATIO) IN SER/PLAS 11.5 Normal [facility] Comment on above: Performed By: #### L [id number] ####[facility] ([facility] [place] [address] CBCon 11-28-2022 Erythrocyte distribution width (RBC) [Ratio] 14.3 % Normal 11.5-15.0 [facility] Comment on above: Performed By: #### L [id number] ####[facility] ([facility])[address] [place] [address] ERYTHROCYTE MEAN CORPUSCULAR HEMOGLOBIN CONCENTRATION (G/DL) BY AUTOMATED 33.2 g/dL Normal 32.0-35.0 [facility] Comment on above: Performed By: #### L [id number] ####[facility] ([facility] [place] [address] Hematocrit (Bld) [Volume fraction] 40.4 % Normal 39.0-55.0 [facility] Comment on above: Performed By: #### L [id number] ####[facility] ([facility] [place] [address] Hemoglobin (Bld) [Mass/Vol] 13.4 g/dL Normal 13.0-17.0 [facility] Comment on above: Performed By: #### L [id number] ####[facility] ([facility])[address] [place] [address] MCH (RBC) [Entitic mass] 29.3 pg Normal 27.0-33.0 [facility] Comment on above: Performed By: #### L [id number] ####[facility] ([facility])[address] [place] [address] MCV (RBC) [Entitic vol] 88.2 fL Normal 82.0-98.0 [facility] Comment on above: Performed By: #### L [id number] ####[facility] ([facility])[address] [place] [address] PLATELETS (10*3/UL) IN BLOOD AUTOMATED COUNT 194 10*3/uL Normal 150-400 [facility] Comment on above: Performed By: #### L [id number] ####[facility] ([facility])[address] [place] [address] RBC (Bld) [#/Vol] 4.58 10*6/uL Normal 4.20-5.70 [facility] Comment on above: Performed By: #### L [id number] ####[facility] ([facility])[address] [place] [address] WBC (Bld) [#/Vol] 7.10 10*3/uL Normal 4.00-10.60 [facility] Comment on above: Performed By: #### L [id number] ####[facility] ([facility])[address] [place] [address] CONSULTon 11-28-2022 CONSULT Normal [facility] MAGNESIUMon 11-28-2022 Magnesium [Mass/Vol] 1.7 mg/dL Low 1.9-2.7 [facility] Comment on above: Performed By: #### L [id number] ####[facility] ([facility])[address] [place] [address] NURSNOTEon 11-28-2022 NURSNOTE Normal [facility] PHOSPHORUSon 11-28-2022 Magnesium [Mass/Vol] 3.8 mg/dL Normal 2.5-5.0 [facility] Comment on above: Performed By: #### L [id number] ####[facility] ([facility])[address] [place] [address] POCT GLUCOSE METER UNSOLICIT ED RESULTSon 11-28-2022 Glucose [Mass/Vol] 202 mg/dL High 70-105 [facility] Comment on above: Order Comment: Waive d Testing in the ED is performed under the ED CLIA certificate #[id number]. Result Comment: [email or web address] Performed By: #### L [id number] ####[facility] ([facility])[address] [place] [address] Glucose [Mass/Vol] 110 mg/dL High 70-105 [facility] Comment on above: Order Comment: Waive d Testing in the ED is performed under the ED CLIA certificate #[id number]. Result Comment: [email or web address] Performed By: #### L [id number] ####[facility] ([facility])[address] [place] [address] Glucose [Mass/Vol] 190 mg/dL High 70-105 [facility] Comment on above: Order Comment: Waive d Testing in the ED is performed under the ED CLIA certificate #[id number]. Result Comment: [email or web address] Performed By: #### L [id number] ####[facility] ([facility])[address] [place] [address] Glucose [Mass/Vol] 147 mg/dL High 70-105 [facility] Comment on above: Order Comment: Waive d Testing in the ED is performed under the ED CLIA certificate #[id number]. Result Comment: [email or web address] Performed By: #### L [id number] ####[facility] ([facility])[address] [place] [address] 30on 11-27-2022 30 Normal [facility] 30 Normal [facility] ANESon 11-27-2022 ANES Normal [facility] ANTI-XA (HEPARIN LEVEL)on HEPARIN UNFRACTIONATED (U/ML) IN PPP BY CHROMOGENIC METHOD 0.10 IU/mL Invalid Interpretation Code 0.3-0.7 [facility] Comment on above: Result Comment: [place] roxaban and Apixaban will interfere with the anti Xa assay used to monitor UFH and LMWH. Performed By: #### L [id number] ####[facility] ([facility])[address] [place] [address] HEPARIN UNFRACTIONATED (U/ML) IN PPP BY CHROMOGENIC METHOD 0.49 IU/mL Normal 0.3-0.7 [facility] Comment on above: Result Comment: [place] roxaban and Apixaban will interfere with the anti Xa assay used to monitor UFH and LMWH. Performed By: #### L [id number] ####[facility] ([facility])[address] [place] [address] BASIC METABOLIC PANELon 11-11 Anion gap [Moles/Vol] 9 mmol/L Normal 7-20 [facility] Comment on above: Performed By: #### L [id number] ####[facility] ([facility])[address] [place] [address] Calcium [Mass/Vol] 8.9 mg/dL Normal 8.6-10.3 [facility] Comment on above: Performed By: #### L [id number] ####[facility] ([facility])[address] [place] [address] Chloride [Moles/Vol] 104 mmol/L Normal 98-107 [facility] Comment on above: Performed By: #### L [id number] ####[facility] ([facility])[address] [place] [address] CO2 [Moles/Vol] 25 mmol/L Normal 21-31 [facility] Comment on above: Performed By: #### L [id number] ####[facility] ([facility])[address] [place] [address] Creatinine [Mass/Vol] 1.34 mg/dL High 0.70-1.30 [facility] Comment on above: Performed By: #### L [id number] ####[facility] ([facility])[address] [place] [address] GLOMERULAR FILTRATION RATE ML/MIN/1.73 SQ M.PREDICTED 57.0 mL/min/1.73m*2 Low >60.[address] [facility] Comment on above: Result Comment: [facility]???s estimated glomerular filtration rate (eGFR) will no [...] of individuals. Performed By: #### L [id number] ####[facility] ([facility])[address] [place] [address] Glucose [Mass/Vol] 210 mg/dL High 70-100 [facility] Comment on above: Performed By: #### L [id number] ####[facility] ([facility])[address] [place] [address] Potassium [Moles/Vol] 4.1 mmol/L Normal 3.5-5.1 [facility] Comment on above: Performed By: #### L [id number] ####[facility] ([facility])[address] [place] [address] Sodium [Moles/Vol] 134 mmol/L Low 136-145 [facility] Comment on above: Performed By: #### L [id number] ####[facility] ([facility])[address] [place] [address] Urea nitrogen [Mass/Vol] 18 mg/dL Normal 7-25 [facility] Comment on above: Performed By: #### L [id number] ####[facility] ([facility])[address] [place] [address] UREA NITROGEN/CREATININE (MASS RATIO) IN SER/PLAS 13.4 Normal [facility] Comment on above: Performed By: #### L [id number] ####[facility] ([facility])[address] [address] CBCon 11-27-2022 Erythrocyte distribution width (RBC) [Ratio] 14.2 % Normal 11.5-15.0 [facility] Comment on above: Performed By: #### L [id number] ####[facility] ([facility])[address] [address] ERYTHROCYTE MEAN CORPUSCULAR HEMOGLOBIN CONCENTRATION (G/DL) BY AUTOMATED 33.3 g/dL Normal 32.0-35.0 [facility] Comment on above: Performed By: #### L [id number] ####[facility] ([facility])[address] [address] Hematocrit (Bld) [Volume fraction] 41.5 % Normal 39.0-55.0 [facility] Comment on above: Performed By: #### L [id number] ####[facility] ([facility])[address] [place] [address] Hemoglobin (Bld) [Mass/Vol] 13.8 g/dL Normal 13.0-17.0 [facility] Comment on above: Performed By: #### L [id number] ####[facility] ([facility])[address] [place] [address] MCH (RBC) [Entitic mass] 28.9 pg Normal 27.0-33.0 [facility] Comment on above: Performed By: #### L [id number] ####[facility] ([facility])[address] [address] MCV (RBC) [Entitic vol] 86.8 fL Normal 82.0-98.0 [facility] Comment on above: Performed By: #### L [id number] ####[facility] ([facility])[address] [place] [address] PLATELETS (10*3/UL) IN BLOOD AUTOMATED COUNT 187 10*3/uL Normal 150-400 [facility] Comment on above: Performed By: #### L [id number] ####[facility] ([facility])[address] [place] [address] RBC (Bld) [#/Vol] 4.78 10*6/uL Normal 4.20-5.70 [facility] Comment on above: Performed By: #### L [id number] ####[facility] ([facility])[address] [place] [address] WBC (Bld) [#/Vol] 6.16 10*3/uL Normal 4.00-10.60 [facility] Comment on above: Performed By: #### L [id number] ####[facility] ([facility])[address] [place] [address] HPon 11-27-2022 HP Normal [facility] MAGNESIUMon 11-27-2022 Magnesium [Mass/Vol] 1.8 mg/dL Low 1.9-2.7 [facility] Comment on above: Performed By: #### L [id number] ####[facility] ([facility])[address] [place] [address] PHOSPHORUSon 11-27-2022 Magnesium [Mass/Vol] 3.4 mg/dL Normal 2.5-5.0 [facility] Comment on above: Performed By: #### L [id number] ####[facility] ([facility])[address] [place] [address] POCT GLUCOSE METER UNSOLICIT ED RESULTSon 11-27-2022 Glucose [Mass/Vol] 393 mg/dL High 70-105 [facility] Comment on above: Order Comment: Waive d Testing in the ED is performed under the ED CLIA certificate #[id number]. Result Comment: crystal [email or web address] Performed By: #### L [id number] ####[facility] ([facility])[address] [place] [address] Glucose [Mass/Vol] 142 mg/dL High 70-105 [facility] Comment on above: Order Comment: Waive d Testing in the ED is performed under the ED CLIA certificate #[id number]. Result Comment: [email or web address] Performed By: #### L [id number] ####[facility] ([facility])[address] [place] [address] Glucose [Mass/Vol] 147 mg/dL High 70-105 [facility] Comment on above: Order Comment: Waive d Testing in the ED is performed under the ED CLIA certificate #[id number]. Result Comment: [email or web address] Performed By: #### L [id number] ####[facility] ([facility])[address] [facility] [place] [address] Glucose [Mass/Vol] 163 mg/dL High 70-105 [facility] Comment on above: Order Comment: Waive d Testing in the ED is performed under the ED CLIA certificate #[id number]. Result Comment: [email or web address] den Performed By: #### L [id number] ####[facility] ([facility])[address] [place] [address] 30on 11-26-2022 30 Normal [facility] 30 Normal [facility] 30 Normal [facility] ANTI-XA (HEPARIN LEVEL)on HEPARIN UNFRACTIONATED (U/ML) IN PPP BY CHROMOGENIC METHOD 0.50 IU/mL Normal 0.3-0.7 [facility] Comment on above: Result Comment: [place] roxaban and Apixaban will interfere with the anti Xa assay used to monitor UFH and LMWH. Performed By: #### L [id number] ####[facility] ([facility])[address] [place] [address] HEPARIN UNFRACTIONATED (U/ML) IN PPP BY CHROMOGENIC METHOD 0.57 IU/mL Normal 0.3-0.7 [facility] Comment on above: Result Comment: [place] roxaban and Apixaban will interfere with the anti Xa assay used to monitor UFH and LMWH. Performed By: #### L [id number] ####[facility] ([facility])[address] [facility] [address] HEPARIN UNFRACTIONATED (U/ML) IN PPP BY CHROMOGENIC METHOD 0.96 IU/mL Critically high 0.3-0.7 [facility] Comment on above: Result Comment: [place] roxaban and Apixaban will interfere with the anti Xa assay used to monitor UFH and LMWH. Performed By: #### L [id number] ####[facility] ([facility])[address] [place] [address] HEPARIN UNFRACTIONATED (U/ML) IN PPP BY CHROMOGENIC METHOD 0.68 IU/mL Normal 0.3-0.7 [facility] Comment on above: Order Comment: Check anti-Xa level every 6 hours while on heparin infusion, or per protocol. Result Comment: [place] roxaban and Apixaban will interfere with the anti Xa assay used to monitor UFH and LMWH. Performed By: #### L [id number] ####[facility] ([facility])[address] [place] [address] HEPARIN UNFRACTIONATED (U/ML) IN PPP BY CHROMOGENIC METHOD 0.66 IU/mL Normal 0.3-0.7 [facility] Comment on above: Order Comment: Check anti-Xa level every 6 hours while on heparin infusion, or per protocol. Result Comment: [place] roxaban and Apixaban will interfere with the anti Xa assay used to monitor UFH and LMWH. Performed By: #### L [id number] ####[facility] ([facility])[address] [place] [address] BASIC METABOLIC PANELon 11-11 Anion gap [Moles/Vol] 8 mmol/L Normal 7-20 [facility] Comment on above: Performed By: #### L [id number] ####[facility] ([facility])[address] [place] [address] Calcium [Mass/Vol] 8.9 mg/dL Normal 8.6-10.3 [facility] Comment on above: Performed By: #### L [id number] ####[facility] ([facility])[address] [place] [address] Chloride [Moles/Vol] 106 mmol/L Normal 98-107 [facility] Comment on above: Performed By: #### L [id number] ####[facility] ([facility])[address] [place] [address] CO2 [Moles/Vol] 26 mmol/L Normal 21-31 [facility] Comment on above: Performed By: #### L [id number] ####[facility] ([facility])[address] [place] [address] Creatinine [Mass/Vol] 1.30 mg/dL Normal 0.70-1.30 [facility] Comment on above: Performed By: #### L [id number] ####[facility] ([facility])[address] [place] [address] GLOMERULAR FILTRATION RATE ML/MIN/1.73 SQ M.PREDICTED 59.1 mL/min/1.73m*2 Low >60.[address] [facility] Comment on above: Result Comment: [facility]???s estimated glomerular filtration rate (eGFR) will no [...] of individuals. Performed By: #### L [id number] ####[facility] ([facility])[address] [place] [address] Glucose [Mass/Vol] 196 mg/dL High 70-100 [facility] Comment on above: Performed By: #### L [id number] ####[facility] ([facility])[address] [place] [address] Potassium [Moles/Vol] 4.2 mmol/L Normal 3.5-5.1 [facility] Comment on above: Performed By: #### L [id number] ####[facility] ([facility])[address] [place] [address] Sodium [Moles/Vol] 136 mmol/L Normal 136-145 [facility] Comment on above: Performed By: #### L [id number] ####[facility] ([facility])[address] [place] [address] Urea nitrogen [Mass/Vol] 17 mg/dL Normal 7-25 [facility] Comment on above: Performed By: #### L [id number] ####[facility] [place] [address] UREA NITROGEN/CREATININE (MASS RATIO) IN SER/PLAS 13.1 Normal [facility] Comment on above: Performed By: #### L [id number] ####[facility] ([facility])[address] [place] [address] CBC WITH AUTO DIFFERENTIALon 11-26-2022 Basophils (Bld) [#/Vol] 0.03 10*3/uL Normal 0.00-0.20 [facility] Comment on above: Performed By: #### L [id number] ####[facility] ([facility])[address] [place] [address] Basophils/100 WBC (Bld) 0.4 % Normal 0.0-1.0 [facility] Comment on above: Performed By: #### L [id number] ####[facility] [place] [address] Eosinophils (Bld) [#/Vol] 0.21 10*3/uL Normal 0.00-0.50 [facility] Comment on above: Performed By: #### L [id number] ####[facility] ([facility])[address] [place] [address] Eosinophils/100 WBC (Bld) 3.1 % Normal 0.0-6.0 [facility] Comment on above: Performed By: #### L [id number] ####[facility] [place] [address] Erythrocyte distribution width (RBC) [Ratio] 14.3 % Normal 11.5-15.0 [facility] Comment on above: Performed By: #### L [id number] ####[facility] [place] [address] ERYTHROCYTE MEAN CORPUSCULAR HEMOGLOBIN CONCENTRATION (G/DL) BY AUTOMATED 33.4 g/dL Normal 32.0-35.0 [facility] Comment on above: Performed By: #### L [id number] ####[facility] ([facility])[address] [place] [address] Hematocrit (Bld) [Volume fraction] 42.5 % Normal 39.0-55.0 [facility] Comment on above: Performed By: #### L [id number] ####[facility] ([facility])[address] [place] [address] Hemoglobin (Bld) [Mass/Vol] 14.2 g/dL Normal 13.0-17.0 [facility] Comment on above: Performed By: #### L [id number] ####[facility] ([facility])[address] [place] [address] Immature granulocytes (Bld) [#/Vol] 0.03 10*3/uL Normal 0.00-0.20 [facility] Comment on above: Performed By: #### L [id number] ####[facility] ([facility])[address] [place] [address] Immature granulocytes/100 WBC (Bld) 0.4 % Normal 0.0-1.0 [facility] Comment on above: Performed By: #### L [id number] ####[facility] ([facility])[address] [place] [address] Lymphocytes (Bld) [#/Vol] 1.09 10*3/uL Low 1.20-4.00 [facility] Comment on above: Performed By: #### L [id number] ####[facility] ([facility])[address] [place] [address] Lymphocytes/100 WBC (Bld) 16.2 % Low 20.0-45.0 [facility] Comment on above: Performed By: #### L [id number] ####[facility] ([facility])[address] [place] [address] MCH (RBC) [Entitic mass] 29.1 pg Normal 27.0-33.0 [facility] Comment on above: Performed By: #### L [id number] ####[facility] [place], [place] [address] MCV (RBC) [Entitic vol] 87.1 fL Normal 82.0-98.0 [facility] Comment on above: Performed By: #### L [id number] ####[facility] ([facility])[address] [place], [place] [address] Monocytes (Bld) [#/Vol] 0.46 10*3/uL Normal 0.10-1.00 [facility] Comment on above: Performed By: #### L [id number] ####[facility] ([facility])[address] [place], [place] [address] Monocytes/100 WBC (Bld) 6.8 % Normal 5.0-12.0 [facility] Comment on above: Performed By: #### L [id number] ####[facility] ([facility])[address] [place] [address] Neutrophils (Bld) [#/Vol] 4.90 10*3/uL Normal 1.60-7.60 [facility] Comment on above: Performed By: #### L [id number] ####[facility] [place], [place] [address] Neutrophils/100 WBC (Bld) 73.1 % High 40.0-72.0 [facility] Comment on above: Performed By: #### L [id number] ####[facility] [place] [address] NRBC (PER 100 WBCS) BY AUTOMATED COUNT 0.0 % Normal 0 [facility] Comment on above: Performed By: #### L [id number] ####[facility] ([facility])[address] [place] [address] PLATELETS (10*3/UL) IN BLOOD AUTOMATED COUNT 201 10*3/uL Normal 150-400 [facility] Comment on above: Performed By: #### L [id number] ####[facility] ([facility])[address] [place] [address] RBC (Bld) [#/Vol] 4.88 10*6/uL Normal 4.20-5.70 [facility] Comment on above: Performed By: #### L [id number] ####[facility] ([facility])[address] [place] [address] WBC (Bld) [#/Vol] 6.72 10*3/uL Normal 4.00-10.60 [facility] Comment on above: Performed By: #### L [id number] ####[facility] ([facility])[address] [place] [address] MAGNESIUMon 11-26-2022 Magnesium [Mass/Vol] 1.7 mg/dL Low 1.9-2.7 [facility] Comment on above: Performed By: #### L [id number] ####[facility] ([facility])[address] [place] [address] NURSNOTEon 11-26-2022 NURSNOTE Normal [facility] PHOSPHORUSon 11-26-2022 Magnesium [Mass/Vol] 3.0 mg/dL Normal 2.5-5.0 [facility] Comment on above: Performed By: #### L [id number] ####[facility] ([facility])[address] [place] [address] POCT GLUCOSE METER UNSOLICIT ED RESULTSon 11-26-2022 Glucose [Mass/Vol] 188 mg/dL High 70-105 [facility] Comment on above: Order Comment: Waive d Testing in the ED is performed under the ED CLIA certificate #[id number]. Result Comment: [email or web address] Performed By: #### L [id number] ####[facility] ([facility])[address] [place] [address] Glucose [Mass/Vol] 142 mg/dL High 70-105 [facility] Comment on above: Order Comment: Waive d Testing in the ED is performed under the ED CLIA certificate #[id number]. Result Comment: [email or web address] Performed By: #### L [id number] ####[facility] ([facility])[address] [place] [address] Glucose [Mass/Vol] 201 mg/dL High 70-105 [facility] Comment on above: Order Comment: Waive d Testing in the ED is performed under the ED CLIA certificate #[id number]. Result Comment: [email or web address] Performed By: #### L [id number] ####[facility] ([facility])[address] [place] [address] Glucose [Mass/Vol] 159 mg/dL High 70-105 [facility] Comment on above: Order Comment: Waive d Testing in the ED is performed under the ED CLIA certificate #[id number]. Result Comment: [email or web address] Performed By: #### L [id number] ####[facility] ([facility])[address] [facility] [place] [address] TROPONIN Ion 11-26-2022 Troponin I.cardiac [Mass/Vol] 0.02 ng/mL Normal 0.00-0.04 [facility] Comment on above: Performed By: #### L [id number] ####[facility] ([facility])[address] [place] [address] 30on 11-25-2022 30 Normal [facility] ANTI-XA (HEPARIN LEVEL)on HEPARIN UNFRACTIONATED (U/ML) IN PPP BY CHROMOGENIC METHOD >1.00 Critically high 0.3-0.7 [facility] Comment on above: Order Comment: Check anti-Xa level every 6 hours while on heparin infusion, or per protocol. Result Comment: [place] roxaban and Apixaban will interfere with the anti Xa assay used to monitor UFH and LMWH. Performed By: #### L [id number] ####[facility] ([facility])[address] [place] [address] APTTon 11-25-2022 ACTIVATED PARTIAL THROMBOPLASTIN TIME IN PPP BY COAGULATION ASSAY 31.6 Seconds Normal 25.0-35.0 [facility] Comment on above: Order Comment: Basel ine aPTT before initiating heparin infusion. Result Comment: Clin ical significance of the APTT is questionable in the presence of heparin. Performed By: #### L [id number] ####[facility] ([facility])[address] [place] [address] ACTIVATED PARTIAL THROMBOPLASTIN TIME IN PPP BY COAGULATION ASSAY 32.7 Seconds Normal 25.0-35.0 [facility] Comment on above: Result Comment: Clin ical significance of the APTT is questionable in the presence of heparin. Performed By: #### L [id number] ####[facility] ([facility])[address] [place] [address] BASIC METABOLIC PANELon 11-11 Anion gap [Moles/Vol] 11 mmol/L Normal 7-20 [facility] Comment on above: Performed By: #### L [id number] ####[facility] ([facility])[address] [place] [address] Calcium [Mass/Vol] 9.2 mg/dL Normal 8.6-10.3 [facility] Comment on above: Performed By: #### L [id number] ####[facility] ([facility])[address] [place] [address] Chloride [Moles/Vol] 105 mmol/L Normal 98-107 [facility] Comment on above: Performed By: #### L [id number] ####[facility] ([facility] [place] [address] CO2 [Moles/Vol] 26 mmol/L Normal 21-31 [facility] Comment on above: Performed By: #### L [id number] ####[facility] ([facility] [place] [address] Creatinine [Mass/Vol] 1.21 mg/dL Normal 0.70-1.30 [facility] Comment on above: Performed By: #### L [id number] ####[facility] ([facility])[address] [place] [address] GLOMERULAR FILTRATION RATE ML/MIN/1.73 SQ M.PREDICTED 64.4 mL/min/1.73m*2 Normal >60.[address] [facility] Comment on above: Result Comment: [facility]???s estimated glomerular filtration rate (eGFR) will no [...] of individuals. Performed By: #### L [id number] ####[facility] ([facility])[address] [place] [address] Glucose [Mass/Vol] 200 mg/dL High 70-100 [facility] Comment on above: Performed By: #### L [id number] ####[facility] ([facility])[address] [place] [address] Potassium [Moles/Vol] 3.8 mmol/L Normal 3.5-5.1 [facility] Comment on above: Performed By: #### L [id number] ####[facility] ([facility])[address] [place] [address] Sodium [Moles/Vol] 138 mmol/L Normal 136-145 [facility] Comment on above: Performed By: #### L [id number] ####[facility] ([facility] [place] [address] Urea nitrogen [Mass/Vol] 18 mg/dL Normal 7-25 [facility] Comment on above: Performed By: #### L [id number] ####[facility] ([facility])[address] [place] [address] UREA NITROGEN/CREATININE (MASS RATIO) IN SER/PLAS 14.9 Normal [facility] Comment on above: Performed By: #### L [id number] ####[facility] ([facility] [place] [address] CALCIUM, IONIZEDon CALCIUM IONIZED (MMOL/L) IN BLOOD 1.16 mmol/L Normal 1.15-1.33 [facility] Comment on above: Performed By: #### C ALCIUM, IONIZED ####[facility] RESPIRATORY [id number] [place] [address] [place] CBC WITH AUTO DIFFERENTIALon 11-25-2022 Basophils (Bld) [#/Vol] 0.03 10*3/uL Normal 0.00-0.20 [facility] Comment on above: Performed By: #### L [id number] ####[facility] ([facility])[address] [place] [address] Basophils/100 WBC (Bld) 0.5 % Normal 0.0-1.0 [facility] Comment on above: Performed By: #### L [id number] ####[facility] ([facility])[address] [place] [address] Eosinophils (Bld) [#/Vol] 0.15 10*3/uL Normal 0.00-0.50 [facility] Comment on above: Performed By: #### L [id number] ####[facility] ([facility])[address] [place] [address] Eosinophils/100 WBC (Bld) 2.3 % Normal 0.0-6.0 [facility] Comment on above: Performed By: #### L [id number] ####[facility] ([facility])[address] [place] [address] Erythrocyte distribution width (RBC) [Ratio] 14.1 % Normal 11.5-15.0 [facility] Comment on above: Performed By: #### L [id number] ####[facility] ([facility] [place] [address] ERYTHROCYTE MEAN CORPUSCULAR HEMOGLOBIN CONCENTRATION (G/DL) BY AUTOMATED 34.5 g/dL Normal 32.0-35.0 [facility] Comment on above: Performed By: #### L [id number] ####[facility] ([facility])[address] [place] [address] Hematocrit (Bld) [Volume fraction] 44.4 % Normal 39.0-55.0 [facility] Comment on above: Performed By: #### L [id number] ####[facility] ([facility])[address] [place] [address] Hemoglobin (Bld) [Mass/Vol] 15.3 g/dL Normal 13.0-17.0 [facility] Comment on above: Performed By: #### L [id number] ####[facility] ([facility])[address] [place] [address] Immature granulocytes (Bld) [#/Vol] 0.03 10*3/uL Normal 0.00-0.20 [facility] Comment on above: Performed By: #### L [id number] ####[facility] ([facility])[address] [place] [address] Immature granulocytes/100 WBC (Bld) 0.5 % Normal 0.0-1.0 [facility] Comment on above: Performed By: #### L [id number] ####[facility] ([facility])[address] [place] [address] Lymphocytes (Bld) [#/Vol] 0.98 10*3/uL Low 1.20-4.00 [facility] Comment on above: Performed By: #### L [id number] ####[facility] ([facility])[address] [place] [address] Lymphocytes/100 WBC (Bld) 15.0 % Low 20.0-45.0 [facility] Comment on above: Performed By: #### L [id number] ####[facility] ([facility])[address] [place] [address] MCH (RBC) [Entitic mass] 29.4 pg Normal 27.0-33.0 [facility] Comment on above: Performed By: #### L [id number] ####[facility] ([facility])[address] [place] [address] MCV (RBC) [Entitic vol] 85.4 fL Normal 82.0-98.0 [facility] Comment on above: Performed By: #### L [id number] ####[facility] ([facility] [place] [address] Monocytes (Bld) [#/Vol] 0.55 10*3/uL Normal 0.10-1.00 [facility] Comment on above: Performed By: #### L [id number] ####[facility] ([facility])[address] [place] [address] Monocytes/100 WBC (Bld) 8.4 % Normal 5.0-12.0 [facility] Comment on above: Performed By: #### L [id number] ####[facility] ([facility])[address] [place] [address] Neutrophils (Bld) [#/Vol] 4.80 10*3/uL Normal 1.60-7.60 [facility] Comment on above: Performed By: #### L [id number] ####[facility] ([facility])[address] [place] [address] Neutrophils/100 WBC (Bld) 73.3 % High 40.0-72.0 [facility] Comment on above: Performed By: #### L [id number] ####[facility] ([facility])[address] [place] [address] NRBC (PER 100 WBCS) BY AUTOMATED COUNT 0.0 % Normal 0 [facility] Comment on above: Performed By: #### L [id number] ####[facility] ([facility] [place] [address] PLATELETS (10*3/UL) IN BLOOD AUTOMATED COUNT 198 10*3/uL Normal 150-400 [facility] Comment on above: Performed By: #### L [id number] ####[facility] ([facility])[address] [place] [address] RBC (Bld) [#/Vol] 5.20 10*6/uL Normal 4.20-5.70 [facility] Comment on above: Performed By: #### L [id number] ####[facility] ([facility])[address] [place] [address] WBC (Bld) [#/Vol] 6.54 10*3/uL Normal 4.00-10.60 [facility] Comment on above: Performed By: #### L [id number] ####[facility] ([facility])[address] [place] [address] CONSULTon 11-25-2022 CONSULT Normal [facility] Documentationon 11-25-2022 Documentation [id number] Lakia Rodriguez 1950 M Date Provider Department [place] 11/25/202202851-THOIUFRANKO GLYNN [facility] No family history on file Normal [facility] HEPATIC FUNCTION PANELon Albumin [Mass/Vol] 4.0 g/dL Normal 3.5-5.7 [facility] Comment on above: Performed By: #### L [id number] ####[facility] ([facility])[address] [place] [address] ALP [Catalytic activity/Vol] 88 U/L Normal 34-104 [facility] Comment on above: Performed By: #### L [id number] ####[facility] ([facility])[address] [place] [address] ALT [Catalytic activity/Vol] 26 U/L Normal 7-52 [facility] Comment on above: Performed By: #### L [id number] ####[facility] ([facility] [place] [address] AST [Catalytic activity/Vol] 18 U/L Normal 13-39 [facility] Comment on above: Performed By: #### L [id number] ####[facility] ([facility] [place] [address] Bilirubin [Mass/Vol] 0.6 mg/dL Normal 0.3-1.0 [facility] Comment on above: Performed By: #### L [id number] ####[facility] ([facility] [place] [address] Magnesium [Mass/Vol] 0.2 mg/dL Normal 0-0.2 [facility] Comment on above: Performed By: #### L [id number] ####[facility] ([facility])[address] [place] [address] Protein [Mass/Vol] 6.4 g/dL Normal 6.0-8.3 [facility] Comment on above: Performed By: #### L [id number] ####[facility] ([facility])[address] [place] [address] HPon 11-25-2022 HP Normal [facility] HP Normal [facility] MAGNESIUMon 11-25-2022 Magnesium [Mass/Vol] 1.7 mg/dL Low 1.9-2.7 [facility] Comment on above: Performed By: #### L [id number] ####[facility] ([facility])[address] [place] [address] PHOSPHORUSon 11-25-2022 Magnesium [Mass/Vol] 3.2 mg/dL Normal 2.5-5.0 [facility] Comment on above: Performed By: #### L [id number] ####[facility] ([facility])[address] [place] [address] PLATELET COUNTon 11-25-2022 PLATELETS (10*3/UL) IN BLOOD AUTOMATED COUNT 204 10*3/uL Normal 150-400 [facility] Comment on above: Performed By: #### L [id number] ####[facility] ([facility])[address] [place] [address] POCT GLUCOSE METER UNSOLICIT ED RESULTSon 11-25-2022 Glucose [Mass/Vol] 194 mg/dL High 70-105 [facility] Comment on above: Order Comment: Waive d Testing in the ED is performed under the ED CLIA certificate #[id number]. Result Comment: [email or web address] [email or web address] Performed By: #### L [id number] ####[facility] ([facility])[address] [place] [address] Glucose [Mass/Vol] 193 mg/dL High 70-105 [facility] Comment on above: Order Comment: Waive d Testing in the ED is performed under the ED CLIA certificate #[id number]. Result Comment: awat [email or web address] Performed By: #### L [id number] ####[facility] ([facility])[address] [place] [address] Glucose [Mass/Vol] 188 mg/dL High 70-105 [facility] Comment on above: Order Comment: Waive d Testing in the ED is performed under the ED CLIA certificate #[id number]. Result Comment: awat [email or web address] Performed By: #### L [id number] ####[facility] ([facility])[address] [place] [address] Glucose [Mass/Vol] 178 mg/dL High 70-105 [facility] Comment on above: Order Comment: Waive d Testing in the ED is performed under the ED CLIA certificate #[id number]. Result Comment: [email or web address] [email or web address] Performed By: #### L [id number] ####[facility] ([facility])[address] [facility] [place] [address] POTASSIUM, WHOLE BLOODon Potassium [Moles/Vol] 3.9 mmol/L Normal 3.5-5.1 [facility] Comment on above: Performed By: #### P OTASSIUM, WHOLE BLOOD ####[facility] RESPIRATORY [id number] [place] [address] [place] PROTIME-INRon 11-25-2022 INR IN PPP BY COAGULATION ASSAY 1.74 High 0.90-1.10 [facility] Comment on above: Result Comment: ACCC P [...] CHEST 1995;108:231S-246S. Performed By: #### L [id number] ####[facility] ([place])[address] [place] [address] PROTHROMBIN TIME (PT) IN PPP BY COAGULATION ASSAY 20.4 Seconds High 12.3-14.8 [facility] Comment on above: Performed By: #### L [id number] ####[facility] ([place])[address] [place] [address] SODIUM, WHOLE BLOODon 2022 SODIUM, WHOLE BLOOD 132 Low 136-145 [facility] Comment on above: Performed By: #### S ODIUM, WHOLE BLOOD ####[facility] RESPIRATORY [id number] [place] [address] [place] TROPONIN Ion 11-25-2022 Troponin I.cardiac [Mass/Vol] 0.03 ng/mL Normal 0.00-0.04 [facility] Comment on above: Performed By: #### L [id number] ####[facility] ([facility])[address] [place] [address] Troponin I.cardiac [Mass/Vol] 0.01 ng/mL Normal 0.00-0.04 [facility] Comment on above: Performed By: #### L [id number] ####[facility] ([facility])[address] [place] [address] CHEMISTRYOrdered By: Lab ROP User on 10-02-2022 INR Coag (Bld) [Relative time] 2.1 {INR} High 0.7 - 1.2 [facility] POC Subsection POC Device SN [id number] Invalid Interpretation Code [facility] Subsection POC Username PARISA HYDE Invalid Interpretation Code [facility] Subsection POCT PT 23.2 s High 8.0 - 15.0 second(s) [facility] P[facility] Subsection Sodium [Moles/Vol] [id number] mmol/L Invalid Interpretation Code [facility] POC Subsection COAGULATIONOrdered By: Elenita Hyde on 10-02-2022 INR Coag (Bld) [Relative time] 2.1 {INR} High 0.7 - 1.2 [facility] POCT PT 23.2 s High 8 - 15 second(s) [facility] POCT PT/INRon 10-02-2022 POCT INR 2.1 High .7-1.2 [facility] Comment on above: Performed By: #### 2 [id number] ####[facility] [id number] [place] [address] POCT PT 23.2 second(s) High 8.0-15.0 [facility] Comment on above: Performed By: #### 2 [id number] ####[place] [id number] CHEMISTRYOrdered By: Lab ROP User on 08-21-2022 POC Device SN [id number] Invalid Interpretation Code [facility] POC Subsection POC Username YOSEF HAINES Invalid Interpretation Code [facility] POC Subsection Sodium [Moles/Vol] 021353565 mmol/L Invalid Interpretation Code [facility] POC Subsection COAGULATIONOrdered By: Ebenezer Haines on 08-21-2022 INR Coag (Bld) [Relative time] 2.1 {INR} High 0.7 - 1.2 [facility] POCT PT 23.3 s High 8 - 15 second(s) [facility] POCT PT/INRon 08-21-2022 POCT INR 2.1 High .7-1.2 [facility] Comment on above: Performed By: #### 2 [id number] ####[facility] [id number] [place] [address] POCT PT 23.3 second(s) High 8.0-15.0 [facility] Comment on above: Performed By: #### 2 [id number] ####[facility] [id number] [place] [address] Progress Note-Physicianon Progress Note-Physician Patient: LAKIA RODRIGUEZ [...] stroke: no 4. Serious co-morbid conditions (recent GA, anemia with Hct <30%, CRI with SCr [...] results, # 90 tab(s), Refills(s) 0, Pharmacy: [facility]/pharmacy #[id number], 167.6, cm, 01/02/19 13:46:00 EST, Height/Length Measured, 95.8, kg, 01/02/19 13:46:00 EST, Weight Measured Eliquis 2.5 mg oral tablet: 2.5 mg = 1 tab(s), Oral, BID, # 60 tab(s), Refills(s) 5, Pharmacy: [facility]/pharmacy #[id number] Metamucil 525 mg oral capsule: 2,625 mg = 5 cap(s), Oral, Daily, X 90 day(s), # 450 cap(s), Refills(s) 3, Pharmacy: [facility]/pharmacy #[id number], 167.6, cm, 06/27/22 8:28:00 EDT, Height/Length Dosing, 94.9, kg, 06/27/22 8:28:00 EDT, Weight Dosing albuterol HFA 90 mcg/inh MDI: 2 puff(s), Inhalation, QID for wheezing, 6.7 gram, Refill(s) 0, [facility]/pharmacy #[id number] predniSONE 10 mg Tab: See Instructions, Oral 6 tabs for 1 day,5 tabs for 1 day,4 tabs for 1 day,3 tabs for 1 day,2 tabs for 1 day,1 tab for 1 day, # 21 tab(s), Refills(s) 0, Pharmacy: [facility]/pharmacy #[id number] Documented Medications Documented Immodium [...] list: All Problems Bloating / SNOMED CT 235244475 / Confirmed Constipation / SNOMED CT 11671293 / Confirmed Diverticulosis / SNOMED CT 1410076428 / Confirmed Acid reflux / SNOMED CT 124321317 / Confirmed Hemorrhoids / SNOMED CT 937629649 / Confirmed History of rectal cancer / SNOMED CT 0079689369 / Confirmed History of colon polyps / SNOMED CT 5327795118 / Confirmed Hypercoagulable state / SNOMED CT 134166736 / Confir (more content not included)... Normal [facility] Comment on above: Result Comment: Elec tronically Signed By: Aggie Hollingsworth\.pavan\Date and Time Signed: 08/21/22 08:26 EDT CHEMISTRYOrdered By: Lab ROP User on 07-10-2022 POC Device SN [id number] Invalid Interpretation Code [facility] POC Subsection POC Username SHAYY CAIN Invalid Interpretation Code [facility] POC Subsection Sodium [Moles/Vol] 146023304 mmol/L Invalid Interpretation Code [facility] POC Subsection COAGULATIONOrdered By: Elenita Hyde on 01-09-2022 POCT INR 2.8 High 0.7 - 1.2 [facility] POCT PT 30.2 High 8 - 15 [facility] CHEMISTRYOrdered By: SYSTEM SYSTEM on 12-27-2021 Albumin [...] 7.7 E9/L Normal 4.0 - 11.0 E9/L [facility] HemeAutoSS Covid-19 PCR (CVDTB)on SARS-CoV-2 (COVID-19) RNA KELLY+probe Ql (Unsp spec) Detected Critically abnormal NOT DETECTED [facility] Comment on above: Result Comment: This test is not yet approved or cleared by the [place] FDA. When there are no FDA-approved or cleared tests available, and other criteria are met, FDA can make tests available under an emergency access mechanism called an Emergency Use Authorization (EUA). The EUA for this test is supported by the [employer] of Health and Human Service's (HHS's) declaration [...] used). Performed By: #### C VDTBH #### [facility] [address] [place] [address] Dr. Kayli Perez INFLUENZA A AND B AGon 12-14 INFLUANEGH SEE BELOW Normal [facility] Comment on above: Result Comment: Nega tive for Flu A protein angiten. Infection due to Flu A cannot be ruled out. Flu A angiten in the sample may be below the detection limit of the test. Performed By: #### I NFLUAB #### [facility] [address] [place] [address] Dr. Kayli Perez INFLUBNEG SEE BELOW Normal [facility] Comment on above: Result Comment: Nega tive for Flu B protein antigen. Infection due to Flu B cannot be ruled out. Flu B antigen in the sample may be below the detection limit of the test. Performed By: #### I NFLUAB #### [facility] [address] [place] [address] Dr. Kayli Perez INFLUENZA A AG Negative Normal NEGATIVE SEE COMMENT [facility] Comment on above: Performed By: #### I NFLUAB #### [facility] [address] [place] [address] [address] Kayli Perez INFLUENZA B AG Negative Normal NEGATIVE SEE COMMENT [facility] Comment on above: Performed By: #### I NFLUAB #### [facility] [address] [place] [address] [address] Kayli Perez INTERNAL CONTROLS Within Normal Limits Normal Wi thin Normal Limits [facility] Comment on above: Performed By: #### I NFLUAB #### [facility] [address] [place] [address] [address] Kayli Perez CHEMISTRYOrdered By: Yosef Haines on 11-28-2021 INR POC FT 2.5 [facility] PT POC FT 30.3 s High 10.8 - 13.6 second(s) [facility] CHEMISTRYOrdered By: Parisa Hyde on 10-13-2021 INR POC FT 2.4 [facility] PT POC FT 28.9 s High 10.8 - 13.6 second(s) [facility] CHEMISTRYOrdered By: Shayy Cain on 10-03-2021 INR POC FT 2.6 [facility] PT POC FT 31.6 s High 10.8 - 13.6 second(s) [facility] CHEMISTRYOrdered By: SYSTEM SYSTEM on 06-23-2021 Albumin [Mass/Vol] 3.8 g/dL Normal 3.3 - 5.0 gm/dL FT Remisol Albumin/Globulin [Mass ratio] 1.3 {ratio} Normal 1.1 - 2.2 [facility] ALP [Catalytic activity/Vol] 95 [iU]/d Normal 21 - 98 Int._Unit/L FT Remisol ALT No additional P-5'-P [Catalytic activity/Vol] 25 [iU]/d Normal 6 - 46 Int._Unit/L [facility] Remisol Anion gap [Moles/Vol] 11 mmol/L Normal 6 - 16 mEq/L F [facility] Remisol AST [Catalytic activity/Vol] 23 [iU]/d Normal 5 - 43 Int._Unit/L FT [facility] Bilirubin [Mass/Vol] 0.7 mg/dL Normal 0.0 [...] rate/Area] mL/min/1.73 m2 Normal >=59mL/min/1 .73 m2 [facility] Chem S GFR/1.73 sq M.predicted among non-blacks MDRD (S/P/Bld) [Vol rate/Area] 60 mL/min/1.73 m2 Normal >=59mL/min/1 .73 m2 [facility] Chem S Globulin (S) [Mass/Vol] 3.0 g/dL [...] HemeAutoSS Progress Noteon 07-02-2019 Progress Note [address] [place] [address] Progress Note Signed:[id number] Name: LAKIA RODRIGUEZ MRUN: [id number] : 1950 Loc: 3S Age / Sex: 68/ M Adm Status: DIS Leonor Adm Date:06/03/19 Room/Bed: [facility] Date of Service 06/04/19 Subjective (ROS) [...] (Auto) 12.8 % (24.0-44.0) L 06/05/19 05:34 [place] % (Auto) 7.5 % (1.7-9.3) 06/05/19 05:34 Eos % (Auto) 1.3 % (0.0-5.0) 06/05/19 05:34 Baso % (Auto) 0.3 % (0.0-1.0) 06/05/19 05:34 Neut # (Auto) 4.5 10 3/uL (1.5-6.7) 06/05/19 05:34 Lymph # (Auto) 0.7 10 3/uL (1.0-3.5) L 06/05/19 05:34 [place] # (Auto) 0.4 10 3/uL (0.2-0.8) 06/05/19 [...] above: Performed By: #### P T #### [facility] - [address] [address] Basophils/100 WBC (Bld) 0.3 % Normal 0.0-1.0 [facility] Comment on above: Performed By: #### P T #### [facility] - [address] [address] Eosinophils (Bld) [#/Vol] 0.1 10 3/uL Normal 0.0-0.7 [place] [facility] Comment on above: Performed By: #### P T #### [address] [address] Eosinophils/100 WBC (Bld) 1.3 % Normal 0.0-5.0 [facility] Comment on above: Performed By: #### P T #### [address] [address] Erythrocyte distribution width (RBC) [Ratio] 14.4 % High 11.5-14.0 [facility] Comment on above: Performed By: #### P T #### [address] [address] Hematocrit (Bld) [Volume fraction] 39.2 % Normal 38.7-49.8 [facility] Comment on above: Performed By: #### P T #### [address] [address] Hemoglobin (Bld) [Mass/Vol] 13.2 g/dL Normal 12.9-16.6 [facility] Comment on above: Performed By: #### P T #### [facility] - [address] [address] Lymphocytes (Bld) [#/Vol] 0.7 10 3/uL Low 1.0-3.5 [facility] Comment on above: Performed By: #### P T #### [facility] - [address] [address] Lymphocytes/100 WBC (Bld) 12.8 % Low 24.0-44.0 [facility] Comment on above: Performed By: #### P T #### [facility] - [address] [address] MCH (RBC) [Entitic mass] 28.9 pg Normal 27.0-31.0 [facility] Comment on above: Performed By: #### P T #### [facility] - [address] [address] MCHC (RBC) [Mass/Vol] 33.8 g/dL Normal 32.0-36.0 [facility] Comment on above: Performed By: #### P T #### [facility] - [address] [address] MCV (RBC) [Entitic vol] 85.5 fL Normal 78.0-100.0 [facility] Comment on above: Performed By: #### P T #### [facility] - [address] [address] Monocytes (Bld) [#/Vol] 0.4 10 3/uL Normal 0.2-0.8 [facility] Comment on above: Performed By: #### P T #### [facility] - [address] [address] Monocytes/100 WBC (Bld) 7.5 % Normal 1.7-9.3 [facility] Comment on above: Performed By: #### P T #### [facility] - [address] [address] Neutrophils (Bld) [#/Vol] 4.5 10 3/uL Normal 1.5-6.7 [facility] Comment on above: Performed By: #### P T #### Main Lab - [facility] [address] [place] [address] Neutrophils/100 WBC (Bld) 78.1 % High 36.0-66.0 [facility] Comment on above: Performed By: #### P T #### Main Lab - [facility] [address] [place] [address] Platelet mean volume (Bld) [Entitic vol] 7.9 fL Normal 6.0-9.5 [facility] Comment on above: Performed By: #### P T #### Main [facility] - [facility] [address] [place] [address] Platelets (Bld) [#/Vol] 180 10 3/uL Normal 150-450 [facility] Comment on above: Performed By: #### P T #### Main [facility] - [facility] [address] [place] [address] RBC (Bld) [#/Vol] 4.58 x10 6/uL Normal 4.38-5.71 [facility] Comment on above: Performed By: #### P T #### [facility] - [address] [address] WBC (Bld) [#/Vol] 5.8 10 3/uL Normal 4.0-10.5 [facility] Comment on above: Performed By: #### P T #### Main Lab - [facility] [address] [place] [address] COMPREHENSIVE METABOLIC PANE Sukhi 06-05-2019 Albumin [Mass/Vol] 3.1 g/dL Low 3.9-5.0 [facility] Comment on above: Performed By: #### P T #### Main [facility] - [facility] [address] [place] [address] Albumin/Globulin [Mass ratio] 1.2 {ratio} Normal 1.1-1.8 [facility] Comment on above: Performed By: #### P T #### Main [facility] - [facility] [address] [place] [address] ALP [Catalytic activity/Vol] 84 U/L Normal 43-122 [facility] Comment on above: Performed By: #### P T #### Main [facility] - [facility] [address] [place] [address] ALT/SGPT 48 U/L Normal 7-56 [facility] Comment on above: Performed By: #### P T #### Main [facility] - [facility] [address] [place] [address] Anion gap [Moles/Vol] 8 mmol/L Low 9-18 [facility] Comment on above: Performed By: #### P T #### Main [facility] - [facility] [address] [place] [address] AST/SGOT 26 U/L Normal 14-50 [facility] Comment on above: Performed By: #### P T #### [facility] - [facility] [address] [place] [address] Bilirubin [Mass/Vol] 0.5 mg/dL Normal 0.2-1.3 [facility] Comment on above: Performed By: #### P T #### [facility] - [address] [address] Calcium [Mass/Vol] 8.5 mg/dL Normal 8.4-10.2 [facility] Comment on above: Performed By: #### P T #### [facility] - [facility] [address] [place] [address] Chloride [Moles/Vol] 106 mmol/L Normal 98-107 [facility] Comment on above: Performed By: #### P T #### Main Lab - [facility] [address] [place] [address] CO2 [Moles/Vol] 27 mmol/L Normal 22-31 [facility] Comment on above: Performed By: #### P T #### Main Lab - [facility] [address] [place] [address] Creatinine [Mass/Vol] 1.30 mg/dL Normal 0.80-1.30 [facility] Comment on above: Performed By: #### P T #### Main Lab - [facility] [address] [place] [address] ESTIMATED CREAT CLEARANCE 52.26 Normal [facility] Comment on above: Result Comment: COCK CROFT-GAULT FORMULA 1972 Performed By: #### P T #### Main Lab - [facility] [address] [place], [place] [address] ESTIMATED GLOMERULAR FILT RATE 55.000 mL/min Normal [facility] Comment on above: Performed By: #### P T #### [facility] - [address] [address] Globulin (S) [Mass/Vol] 2.6 g/dL Normal [facility] Comment on above: Performed By: #### P T #### [facility] - [address] [address] Glucose [Mass/Vol] 108 mg/dL High 70-99 [facility] Comment on above: Result Comment: The glucose range is based on recommendations from the [place] [employer] for fasting blood glucose range. Performed By: #### P T #### [facility] - [address] [address] Potassium [Moles/Vol] 3.7 mmol/L Normal 3.6-5.0 [facility] Comment on above: Performed By: #### P T #### [facility] - [address] [address] Protein [Mass/Vol] 5.7 g/dL Low 6.3-8.2 [facility] Comment on above: Performed By: #### P T #### [facility] - [address] [address] Sodium [Moles/Vol] 137 mmol/L Normal 137-145 [facility] Comment on above: Performed By: #### P T #### [address] [address] Urea nitrogen [Mass/Vol] 15 mg/dL Normal 7-21 [facility] Comment on above: Performed By: #### P T #### [facility] [address] [address] Urea nitrogen/Creatinine [Mass ratio] 11.5 Ratio Normal 5.0-42.0 [facility] Comment on above: Performed By: #### P T #### [facility] - [address] [address] Age - Reported 68 Years Normal [facility] Comment on above: Performed By: #### P T #### [facility] - [facility] [address] [place] [address] PT WITH INRon 06-05-2019 INR Coag (PPP) [Relative time] 3.1 {INR} Normal [facility] Comment on above: Result Comment: ISAAK MMENDED RANGES FOR INR: Therapeutic range for standard therapy INR: 2.0-3.0 Therapeutic range for high dose therapy INR: 2.5-3.5 Performed By: #### P T #### [facility] - [address] [address] PT Coag (PPP) [Time] 32.2 s High 12.0-14.5 [facility] Comment on above: Performed By: #### P T #### [facility] - [place] [id number] URINE CULTUREon 06-05-2019 Bacteria identified Cx Nom (U) @06/03/19 1933: URINE CULT added. RFLXG = URINE CULT. @[place] [id number]. URINE CULTURE: NO GROWTH AT 48 HOURS Normal [facility] Comment on above: Performed By: #### P T #### [facility] - [facility] [address] [place] [address] CBC WITH AUTO DIFFon 020 Basophils (Bld) [#/Vol] 0.0 10 3/uL Normal 0.0-0.2 [facility] Comment on above: Performed By: #### P T, CMP, CBC #### [facility] - [address] [address] Basophils/100 WBC (Bld) 0.2 % Normal 0.0-1.0 [facility] Comment on above: Performed By: #### P T, CMP, CBC #### [facility] - [facility] [address] [place] [address] Eosinophils (Bld) [#/Vol] 0.0 10 3/uL Normal 0.0-0.7 [facility] Comment on above: Performed By: #### P T, CMP, CBC #### [facility] - [facility] [address] [place], [place] [address] Eosinophils/100 WBC (Bld) 0.3 % Normal 0.0-5.0 [facility] Comment on above: Performed By: #### P T, CMP, CBC #### [facility] - [facility] [address] [place] [address] Erythrocyte distribution width (RBC) [Ratio] 14.4 % High 11.5-14.0 [facility] Comment on above: Performed By: #### P T, CMP, CBC #### Main Lab - [facility] [address] [place] [address] Hematocrit (Bld) [Volume fraction] 40.5 % Normal 38.7-49.8 [facility] Comment on above: Performed By: #### P T, CMP, CBC #### [facility] - [facility] [address] [place] [address] Hemoglobin (Bld) [Mass/Vol] 13.9 g/dL Normal 12.9-16.6 [facility] Comment on above: Performed By: #### P T, CMP, CBC #### [facility] - [facility] [address] [place] [address] Lymphocytes (Bld) [#/Vol] 0.6 10 3/uL Low 1.0-3.5 [facility] Comment on above: Performed By: #### P T, CMP, CBC #### [facility] - [address] [address] Lymphocytes/100 WBC (Bld) 8.3 % Low 24.0-44.0 [facility] Comment on above: Performed By: #### P T, CMP, CBC #### [facility] - [facility] [address] [place] [address] MCH (RBC) [Entitic mass] 29.2 pg Normal 27.0-31.0 [facility] Comment on above: Performed By: #### P T, CMP, CBC #### [facility] - [facility] [address] [place] [address] MCHC (RBC) [Mass/Vol] 34.2 g/dL Normal 32.0-36.0 [facility] Comment on above: Performed By: #### P T, CMP, CBC #### [facility] - [facility] [address] [place] [address] MCV (RBC) [Entitic vol] 85.2 fL Normal 78.0-100.0 [facility] Comment on above: Performed By: #### P T, CMP, CBC #### [facility] - [facility] [address] [place] [address] Monocytes (Bld) [#/Vol] 0.4 10 3/uL Normal 0.2-0.8 [facility] Comment on above: Performed By: #### P T, CMP, CBC #### [facility] - [address] [address] Monocytes/100 WBC (Bld) 5.4 % Normal 1.7-9.3 [facility] Comment on above: Performed By: #### P T, CMP, CBC #### Main [facility] - [address] [address] Neutrophils (Bld) [#/Vol] 5.8 10 3/uL Normal 1.5-6.7 [facility] Comment on above: Performed By: #### P T, CMP, CBC #### [facility] - [address] [address] Neutrophils/100 WBC (Bld) 85.8 % High 36.0-66.0 [facility] Comment on above: Performed By: #### P T, CMP, CBC #### [facility] - [address] [address] Platelet mean volume (Bld) [Entitic vol] 8.1 fL Normal 6.0-9.5 [facility] Comment on above: Performed By: #### P T, CMP, CBC #### [facility] - [facility] [address] [place] [address] Platelets (Bld) [#/Vol] 190 10 3/uL Normal 150-450 [facility] Comment on above: Performed By: #### P T, CMP, CBC #### [facility] - [facility] [address] [place] [address] RBC (Bld) [#/Vol] 4.75 x10 6/uL Normal 4.38-5.71 [facility] Comment on above: Performed By: #### P T, CMP, CBC #### [facility] - [facility] [address] [place] [address] WBC (Bld) [#/Vol] 6.7 10 3/uL Normal 4.0-10.5 [facility] Comment on above: Performed By: #### P T, CMP, CBC #### Main Lab - [facility] [address] [place], [place] [address] COMPREHENSIVE METABOLIC PANE Sukhi 06-04-2019 Albumin [Mass/Vol] 3.4 g/dL Low 3.9-5.0 [facility] Comment on above: Performed By: #### P T, CMP, CBC #### [facility] - [facility] [address] [place] [address] Albumin/Globulin [Mass ratio] 1.2 {ratio} Normal 1.1-1.8 [facility] Comment on above: Performed By: #### P T, CMP, CBC #### [facility] - [facility] [address] [place] [address] ALP [Catalytic activity/Vol] 92 U/L Normal 43-122 [facility] Comment on above: Performed By: #### P T, CMP, CBC #### [facility] - [facility] [address] [place] [address] ALT/SGPT 62 U/L High 7-56 [facility] Comment on above: Performed By: #### P T, CMP, CBC #### [facility] - [facility] [address] [place] [address] Anion gap [Moles/Vol] 8 mmol/L Low 9-18 [facility] Comment on above: Performed By: #### P T, CMP, CBC #### [facility] - [facility] [address] [place] [address] AST/SGOT 36 U/L Normal 14-50 [facility] Comment on above: Result Comment: Spec imen Slightly Hemolyzed. Performed By: #### P T, CMP, CBC #### [facility] - [facility] [address] [place] [address] Bilirubin [Mass/Vol] 0.5 mg/dL Normal 0.2-1.3 [facility] Comment on above: Performed By: #### P T, CMP, CBC #### [facility] - [facility] [address] [place] [address] Calcium [Mass/Vol] 8.9 mg/dL Normal 8.4-10.2 [facility] Comment on above: Performed By: #### P T, CMP, CBC #### [facility] - [facility] [address] [place] [address] Chloride [Moles/Vol] 109 mmol/L High 98-107 [facility] Comment on above: Result Comment: Inco nsistent with previous results. Performed By: #### P T, CMP, CBC #### [facility] - [facility] [address] [place] [address] CO2 [Moles/Vol] 27 mmol/L Normal 22-31 [facility] Comment on above: Performed By: #### P T, CMP, CBC #### [facility] - [facility] [address] [place] [address] Creatinine [Mass/Vol] 1.28 mg/dL Normal 0.80-1.30 [facility] Comment on above: Performed By: #### P T, CMP, CBC #### [facility] - [facility] [address] [place] [address] ESTIMATED CREAT CLEARANCE 53.08 [facility] Comment on above: Result Comment: COCK CROFT-GAULT FORMULA 1972 Performed By: #### P T, CMP, CBC #### [facility] - [facility] [address] [place] [address] ESTIMATED GLOMERULAR FILT RATE 56.000 mL/min Normal [facility] Comment on above: Performed By: #### P T, CMP, CBC #### [facility] - [facility] [address] [place] [address] Globulin (S) [Mass/Vol] 2.9 g/dL Normal [facility] Comment on above: Performed By: #### P T, CMP, CBC #### [facility] - [facility] [address] [place], [place] [address] Glucose [Mass/Vol] 165 mg/dL High 70-99 [facility] Comment on above: Result Comment: The glucose range is based on recommendations from the [place] [employer] for fasting blood glucose range. Performed By: #### P T, CMP, CBC #### [facility] - [facility] [address] [place], [place] [address] Potassium [Moles/Vol] 3.7 mmol/L Normal 3.6-5.0 [facility] Comment on above: Result Comment: Spec imen Slightly Hemolyzed. Performed By: #### P T, CMP, CBC #### [facility] - [facility] [address] [place], [place] [address] Protein [Mass/Vol] 6.3 g/dL Normal 6.3-8.2 [facility] Comment on above: Performed By: #### P T, CMP, CBC #### [facility] - [facility] [address] [place] [address] Sodium [Moles/Vol] 140 mmol/L Normal 137-145 [facility] Comment on above: Performed By: #### P T, CMP, CBC #### [facility] - [facility] [address] [place] [address] Urea nitrogen [Mass/Vol] 17 mg/dL Normal 7-21 [facility] Comment on above: Performed By: #### P T, CMP, CBC #### [facility] - [facility] [address] [place] [address] Urea nitrogen/Creatinine [Mass ratio] 13.3 Ratio Normal 5.0-42.0 [facility] Comment on above: Performed By: #### P T, CMP, CBC #### [facility] - [facility] [address] [place] [address] Age - Reported 68 Years Normal [facility] Comment on above: Performed By: #### P T, CMP, CBC #### [facility] - [facility] [address] [place] [address] CREATINE KINASE MBon 020 CK.MB [Mass/Vol] 4.0 ng/mL High 0.0-3.7 [facility] Comment on above: Performed By: #### C KMB 1 #### Main Lab - [facility] [place], [place] [address] CK.MB [Mass/Vol] 3.8 ng/mL High 0.0-3.7 [facility] Comment on above: Performed By: #### C KMB 1 #### [facility] - [facility] [address] [place] [address] CK.MB [Mass/Vol] 4.4 ng/mL High 0.0-3.7 [facility] Comment on above: Performed By: #### P T #### [facility] - [facility] [address] [place] [address] [address] ABDOMEN PELVIS W/Oon 05-13 CT ABDOMEN PELVIS W/O [facility] [address] [place] [address] Diagnostic Imaging Report : [id number] Signed Name: LAKIA RODRIGUEZ MRUN: [id number] : 1950 Loc: 3S Age / Sex: 68 / M ADM Status: ADM Leonor ADM Date: 06/03/19 Room/Bed: [facility] Ordering Physician: Modesto Hickman MD Procedure: CT ABDOMEN PELVIS W/O Order Number(s): [id number] Ordered Date: 06/04/19 Ordered Time: 5 EXAMINATION: [...] 06/04/19 @ by [id number]. Old specimen was [id number]. Result Comment: Nega tive cut-off concentration <1000 ng/mL Performed By: #### U DS #### [facility] - [facility] [address] [place] [address] BARBITURATE SCREEN, URINE Negative Normal NEGATIVE [facility] Comment on above: Order Comment: @ COL L DATE was changed from 06/03/19 to 06/04/19 @ by [id number]. Old specimen was [id number]. Result Comment: Nega tive cut-off concentration <200 ng/mL Performed By: #### U DS #### [facility] - [facility] [address] [place] [address] BENZODIAZEPINES SCREEN,URINE Negative Normal NEGATIVE [facility] Comment on above: Order Comment: @ COL L DATE was changed from 06/03/19 to 06/04/19 @ by [id number]. Old specimen was [id number]. Result Comment: Nega tive cut-off concentration <200 ng/mL Performed By: #### U DS #### [facility] - [facility] [address] [place] [address] BUPRENORPHINE SCREEN,URINE Negative Normal NEGATIVE [facility] Comment on above: Order Comment: @ COL L DATE was changed from 06/03/19 to 06/04/19 @ by [id number]. Old specimen was [id number]. Result Comment: Nega tive cut-off concentration <10 ng/mL Performed By: #### U DS #### [facility] - [facility] [address] [place] [address] CANNABINOID SCREEN,URINE Negative Normal NEGATIVE [facility] Comment on above: Order Comment: @ COL L DATE was changed from 06/03/19 to 06/04/19 @ by [id number]. Old specimen was [id number]. Result Comment: Nega tive cut-off concentration <50 ng/mL Performed By: #### U DS #### Main Lab - [facility] [place] [address] COCAINE SCREEN,URINE Negative Normal NEGATIVE [facility] Comment on above: Order Comment: @ COL L DATE was changed from 06/03/19 to 06/04/19 @ by [id number]. Old specimen was [id number]. Result Comment: Nega tive cut-off concentration <300 ng/mL Performed By: #### U DS #### [facility] - [facility] [address] [place] [address] METHADONE SCREEN,URINE Negative Normal NEGATIVE [facility] Comment on above: Order Comment: @ COL L DATE was changed from 06/03/19 to 06/04/19 @ by [id number]. Old specimen was [id number]. Result Comment: Nega tive cut-off concentration <300 ng/mL Performed By: #### U DS #### [facility] [place] [address] OPIATE SCREEN,URINE Negative Normal NEGATIVE [facility] Comment on above: Order Comment: @ COL L DATE was changed from 06/03/19 to 06/04/19 @ by [id number]. Old specimen was [id number]. Result Comment: Nega tive cut-off concentration <300 ng/mL Performed By: #### U DS #### [facility] [place] [address] OXYCODONE SCREEN,URINE Negative Normal NEGATIVE [facility] Comment on above: Order Comment: @ COL L DATE was changed from 06/03/19 to 06/04/19 @ by [id number]. Old specimen was [id number]. Result Comment: Nega tive cut-off concentration <300 ng/mL Performed By: #### U DS #### [facility] - [facility] [address] [place] [address] PHENCYCLIDINE SCREEN,URINE Negative Normal NEGATIVE [facility] Comment on above: Order Comment: @ COL L DATE was changed from 06/03/19 to 06/04/19 @ by [id number]. Old specimen was [id number]. Result Comment: Nega tive cut-off concentration <25 ng/mL Performed By: #### U DS #### Main [facility] [place], [place] [address] NITRITE,URINE Negative Normal NEGATIVE [facility] Comment on above: Order Comment: @ COL L DATE was changed from 06/03/19 to 06/04/19 @ by [id number]. Old specimen was [id number]. Performed By: #### U DS #### Main [facility] [place], [place] [address] pH (U) 6.0 [pH] Normal 5.0-8.0 [facility] Comment on above: Order Comment: @ COL L DATE was changed from 06/03/19 to 06/04/19 @ by [id number]. Old specimen was [id number]. Performed By: #### U DS #### [facility] - [facility] [address] [place] [address] SPECIFIC GRAVITY,URINE 1.027 SP.GR. Normal <1.029 [facility] Comment on above: Order Comment: @ COL L DATE was changed from 06/03/19 to 06/04/19 @ by [id number]. Old specimen was [id number]. Performed By: #### U DS #### [facility] - [facility] [address] [place] [address] ECHOCARDIOGRAM COMPLETEon ECHOCARDIOGRAM COMPLETE [facility] [address] [place], [place] [id number] Cardiovascular Imaging Report : [id number] Signed Name: LAKIA RODRIGUEZ MRUN: [id number] : 1950 Loc: 3S Age / Sex: 68 / M ADM Status: ADM Leonor ADM Date: 06/03/19 Room/Bed: [facility]ing Phys[facility]: ECHOCARDIOGRAM COMPLETE Order Number(s): [id number] Ordered Date: 06/04/19 Ordered Time: 0700 SEOSYNCVPROD [id number] Transthoracic Echo Report Ht (in): 67 Wt (lb): 221 BSA: 2.2 Technologist: In[facility] Nurse: Gracie Goldberg BSN, Stay Type: I [...] 4.4 cm RV Mid 3.7 cm RV [place] to Base 8.6 cm Ascending Aorta Diameter 3.2 cm M-MODE Aortic Root Diameter MM 3.6 cm LA Systolic Diameter MM 4.2 cm LA Ao Ratio MM 1.2 DOPPLER AV Peak Velocity 1.3 m/s AV Peak Gradient 6.6 mmHg LVOT Peak Velocity 0.8 m/s LVOT Peak Gradient 2.5 mmHg LVOT Mean Gradient 1.3 mmHg LVOT Velocity Time Integral 16.7 cm MV Deceleration Turner 1.3 m/s? MV Pressure Half Time 83.2 [...] 06/04/19 1132 Transcribed Date/Time: 06/04/19 09 Normal [facility] History & Physicalon 020 History & Physical [facility] [place] [address] History Physical Signed with Addenda:[id number] Name: LAKIA RODRIGUEZ MRUN: [id number] : 1950 Loc: 3S Age / Sex: 68/ M Adm Status: ADM Leonor Adm Date:06/03/19 Room/Bed: 317-01 ADDENDUM--- ------- Bilateral lower extremities have chronic venous stasis changes and trace edema, small open wound on right leg. 06/04/19 0048 CC: Vick ENCISO, [facility] Date of Service 06/03/19 History of Present Illness Information source:: Patient Chief Complaint: I passed out This is a pleasant 68-year-old male with a history of diabetes mellitus and colon cancer was brought into the emergency room by the customer care associate for further evaluation and management of a syncopal event. Patient was in his usual state of health until this afternoon. 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 He was taking the exit to get to the Highway around 4:30 PM after exchanging the trailer with his colleague. He felt like his truck is spinning around. The next thing he knew was customer care associate were knocking on the door. He was found slumped over on the steering wheel. He did not experience any chest pain, palpitations, focal weakness, vision changes or diaphoresis prior to the episode. No prior similar symptoms. No reports of seizure-like activity. No reports of bladder or bowel incontinence. No history of GA, CVA or seizures. He had his breakfast [...] (Auto) 12.0 % (24.0-44.0) L 06/03/19 17:36 [place] % (Auto) 6.0 % (1.7-9.3) 06/03/19 17:36 Eos % (Auto) 0.6 % (0.0-5.0) 06/03/19 17:36 Baso % (Auto) 0.3 % (0.0-1.0) 06/03/19 17:36 Neut # (Auto) 5.7 10 3/uL (1.5-6.7) 06/03/19 17:36 Lymph # (Auto) 0.8 10 3/uL (1.0-3.5) L 06/03/19 17:36 [place] # (Auto) 0.4 10 3/uL (0.2-0.8) 06/03/19 [...] actually had an appointment with surgeon at [facility] for rectal hernia repair about one [...] Status: Chronic 06/04/19 0047 CC: Vick ENCISO, Usreesha [facility] LACTATE FOLLOW UPon 06-04-19 LACTATE FOLLOW UP 1.0 mmol/L Normal 0.7-2.4 [facility] Comment on above: Order Comment: @05/130: LACTATE 2 added. RFLXG = LACTICRFX. Performed By: #### L ACTATE 2 #### Main Lab - [facility] [address] [place] [address] PT WITH INRon 06-04-2019 INR Coag (PPP) [Relative time] 3.0 {INR} [facility] Comment on above: Order Comment: @ Pre viously cancelled by [id number] on 06/04/19 at 0924. @ Uncancelled by [id number] on 06/04/19 at 0931. @ Specimen Rejected Previously Y. @ Previous Rejection Reason DUPLICATE - Duplicate orders. Result Comment: ISAAK MMENDED RANGES FOR INR: Therapeutic range for standard therapy INR: 2.0-3.0 Therapeutic range for high dose therapy INR: 2.5-3.5 Performed By: #### P T #### [facility] - [facility] [address] [place] [address] 98745 PT Coag (PPP) [Time] 31.2 s High 12.0-14.5 [facility] Comment on above: Order Comment: @ Pre viously cancelled by [id number] on 06/04/19 at 0924. @ Uncancelled by [id number] on 06/04/19 at 0931. @ Specimen Rejected Previously Y. @ Previous Rejection Reason DUPLICATE - Duplicate orders. Performed By: #### P T #### [facility] - [facility] [address] [place] [address]206 INR Coag (PPP) [Relative time] 3.1 {INR} Normal [facility] Comment on above: Result Comment: ISAAK MMENDED RANGES FOR INR: Therapeutic range for standard therapy INR: 2.0-3.0 Therapeutic range for high dose therapy INR: 2.5-3.5 Performed By: #### P T, CMP, CBC #### Main [facility] - [facility] [address] [place] [address] 75392 PT Coag (PPP) [Time] 32.1 s High 12.0-14.5 [facility] Comment on above: Performed By: #### P T, CMP, CBC #### Main [facility] - [facility] [address] [place] [address] TROPONIN Ion 06-04-2019 Troponin I.cardiac [Mass/Vol] 0.06 ng/mL High 0.0-0.03 [facility] Comment on above: Result Comment: Refe rence Interval < or = 0.03 ng/mL Clinical Correlation Needed 0.03 - 0.11 ng/mL AMI Cutoff, Presumptive = or > 0.12 ng/mL Performed By: #### T ROP 1 #### Main [facility] - [facility] [address] [place] [address] 43263 Troponin I.cardiac [Mass/Vol] 0.06 ng/mL High 0.0-0.03 [facility] Comment on above: Result Comment: Refe rence Interval < or = 0.03 ng/mL Clinical Correlation Needed 0.03 - 0.11 ng/mL AMI Cutoff, Presumptive = or > 0.12 ng/mL Performed By: #### P T #### Main [facility] - [facility] [address] [place] [address] US CAROTID DUPLEX BILATERALo n 06-04-2019 US CAROTID DUPLEX BILATERAL [facility] [address] [place] [address] Diagnostic Imaging Report : [id number] Signed Name: LAKIA RODRIGUEZ MRUN: [id number] : 1950 Loc: 3S Age / Sex: 68 / M ADM Status: ADM Leonor ADM Date: 06/03/19 Room/Bed: [facility] Ordering Physician: Vick ENCISO, [facility] Procedure: US CAROTID DUPLEX BILATERAL Order Number(s): [id number] Ordered Date: 06/04/19 Ordered Time: 0700 EXAMINATION: [...] Center Waveform Imaging Reporton Waveform Imaging Report [facility] [address] [place] [address] Waveform Imaging Report : [id number] Signed Name: LAKIA RODRIGUEZ MRUN: [id number] : 1950 Loc: 3S Age / Sex: 68 / M ADM Status: ADM Leonor ADM Date: 06/03/19 Room/Bed: [facility] Ordering Physician: Modesto Hickman MD Procedure: EKG Order Number(s): [id number] Ordered Date: 06/04/19 Ordered Time: 06 Test Date: 2019-06-04 03:50:57 Pat Name: LAKIA RODRIGUEZ Department: [address] [place] [address] Room: [facility] Gender: M Inspector Optical Instrument: : 1950 Requested By: Modesto Hickman Order Number: [id number] Reading MD: Sakina Pack Measurements Intervals [place] Rate: 57 P: 69 PA: 150 QRS: 99 QRSD: 108 T: -168 [...] 05-13 ALCOHOL, MEDICAL < 10 Normal [facility] Comment on above: Result Comment: Alco hol for medical purposes only. Performed By: #### T ROP 1 #### Main Lab - [facility] [address] [place], [place] [address] CBC WITH AUTO DIFFon 020 Basophils (Bld) [#/Vol] 0.0 10 3/uL Normal 0.0-0.2 [facility] Comment on above: Performed By: #### P T #### [facility] [address] [place], [place] [address] Basophils/100 WBC (Bld) 0.3 % Normal 0.0-1.0 [facility] Comment on above: Performed By: #### P T #### [facility] - [address] [address] Eosinophils (Bld) [#/Vol] 0.0 10 3/uL Normal 0.0-0.7 [facility] Comment on above: Performed By: #### P T #### [facility] - [address] [address] Eosinophils/100 WBC (Bld) 0.6 % Normal 0.0-5.0 [facility] Comment on above: Performed By: #### P T #### [facility] - [address] [address] Erythrocyte distribution width (RBC) [Ratio] 14.2 % High 11.5-14.0 [facility] Comment on above: Performed By: #### P T #### [facility] - [address] [address] Hematocrit (Bld) [Volume fraction] 42.8 % Normal 38.7-49.8 [facility] Comment on above: Performed By: #### P T #### [facility] - [address] [address] Hemoglobin (Bld) [Mass/Vol] 14.6 g/dL Normal 12.9-16.6 [facility] Comment on above: Performed By: #### P T #### [facility] - [address] [address] Lymphocytes (Bld) [#/Vol] 0.8 10 3/uL Low 1.0-3.5 [facility] Comment on above: Performed By: #### P T #### [facility] - [address] [address] Lymphocytes/100 WBC (Bld) 12.0 % Low 24.0-44.0 [facility] Comment on above: Performed By: #### P T #### [facility] - [address] [address] MCH (RBC) [Entitic mass] 29.2 pg Normal 27.0-31.0 [facility] Comment on above: Performed By: #### P T #### [address] [address] MCHC (RBC) [Mass/Vol] 34.1 g/dL Normal 32.0-36.0 [facility] Comment on above: Performed By: #### P T #### [address] [address] MCV (RBC) [Entitic vol] 85.7 fL Normal 78.0-100.0 [facility] Comment on above: Performed By: #### P T #### [address] [address] Monocytes (Bld) [#/Vol] 0.4 10 3/uL Normal 0.2-0.8 [facility] Comment on above: Performed By: #### P T #### [address] [address] Monocytes/100 WBC (Bld) 6.0 % Normal 1.7-9.3 [facility] Comment on above: Performed By: #### P T #### [address] [address] Neutrophils (Bld) [#/Vol] 5.7 10 3/uL Normal 1.5-6.7 [facility] Comment on above: Performed By: #### P T #### [address] [address] Neutrophils/100 WBC (Bld) 81.1 % High 36.0-66.0 [facility] Comment on above: Performed By: #### P T #### [address] [address] Platelet mean volume (Bld) [Entitic vol] 7.7 fL Normal 6.0-9.5 [facility] Comment on above: Performed By: #### P T #### [address] [address] Platelets (Bld) [#/Vol] 187 10 3/uL Normal 150-450 [facility] Comment on above: Performed By: #### P T #### [address] [address] RBC (Bld) [#/Vol] 4.99 x10 6/uL Normal 4.38-5.71 [facility] Comment on above: Performed By: #### P T #### [facility] - [address] [address] WBC (Bld) [#/Vol] 7.0 10 3/uL Normal 4.0-10.5 [facility] Comment on above: Performed By: #### P T #### [facility] - [address] [address] COMPREHENSIVE METABOLIC PANE Sukhi 06-03-2019 Albumin [Mass/Vol] 3.9 g/dL Normal 3.9-5.0 [facility] Comment on above: Performed By: #### P T #### [facility] - [address] [address] Albumin/Globulin [Mass ratio] 1.4 {ratio} Normal 1.1-1.8 [facility] Comment on above: Performed By: #### P T #### [facility] - [address] [address] ALP [Catalytic activity/Vol] 104 U/L Normal 43-122 [facility] Comment on above: Performed By: #### P T #### [facility] - [address] [address] ALT/SGPT 78 U/L High 7-56 [facility] Comment on above: Performed By: #### P T #### [facility] - [address] [address]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 [facility] 01-11-2021 influenza, unspecifi ed formulation Yusra Denis [facility] 07-22-2020 SARS-CoV-2 (COVID-19 ) mRNA BNT-162b2 vax Yusramanuel HenryCira [facility] Comment on above: Result Comment: 2021: [id number] 06-30-2020 SARS-CoV-2 (COVID-19 ) mRNA BNT-162b2 vax Yusramanuel HenryCira [facility] Comment on above: Result Comment: 2021: [id number] 06-27-2020 tetanus and diphther ia toxoids, adsorbed, preservative free, for adult use (2 Lf of tetanus toxoid and 2 Lf of diphtheria toxoid) Yusra Denis [facility] 11-14-2019 influenza virus vaccine, unspecified formulation Yusra Denis [facility] 10-31-2018 influenza virus vaccine, unspecified formulation Yusra Denis [facility] 10-31-2018 pneumococcal polysaccharide vaccine, 23 valent Yusra Denis [facility] 10-22-2017 influenza virus vaccine, unspecified formulation Yusra Denis [facility] 10-22-2017 pneumococcal conjuga te vaccine, 13 valent Yusra Denis [facility] 12-07-2016 influenza, unspecifi ed formulation Yusra Denis [facility] 01-30-2016 influenza, injectabl e, quadrivalent, preservative free Nanci Miller DRY HOUSE WORKER.COMMERCIAL MANAGEMENT ACCOUNTANT Work Phone: [facility] 01-30-2016 pneumococcal polysaccharide vaccine, 23 valent Nanci Miller DRY HOUSE WORKER.COMMERCIAL MANAGEMENT ACCOUNTANT Work Phone: [facility] 01-30-2016 influenza virus vaccine, unspecified formulation Nanci Miller DRY HOUSE WORKER.COMMERCIAL MANAGEMENT ACCOUNTANT Work Phone: [facility] NEGATED: Highlighted row has not occurred!11-16-2021 influenza virus vaccine, unspecified formulation Yusra Denis [facility] Payers Date Payer Category Payer Unknown MMO MMO MEDICARE SUPPLEMENT [id number] 2019-Present [phone] [address] [place] [address] Indemnity [id number] 2017 Medicare MEDICARE MEDICAR E A AND B [id number] 2017-Present [phone] [address] [address] [place] [address] Medicare [id number] 1959 Medicare [id number] 1959 Self-pay 1959 Unknown [id number] 1952 Unknown [id number] 1952 Unknown [id number] 1952 Unknown [id number] 1952 Unknown [id number] 1952 Unknown [id number] 1952 Unknown [id number] 1952 Unknown [id number] 1952 Unknown [id number] 1952 Unknown [id number] 1952 Unknown [id number] Social History Date Type Detail Facility Tobacco Never smoker [facility] Comment on above: denies current use Start: 01-20-2020 End: 09-05-2020 Sex Assigned At Male [facility] Start: 07-19-2021 End: 07-25-2023 Tobacco smoking status Never smoked tobacco (finding) [facility] Comment on above: denies current use Tobacco [facility] Start: 06-27-2015 Tobacco use and exposure Smokeless tobacco non-user [facility] Start: 09-05-2020 End: 06-25-2023 Alcohol intake Current non-drinker of alcohol (finding) [facility] Start: 01-20-2020 End: 09-05-2020 History of Social function [facility] Start: 1950 Sex Assigned At Not on file [facility] Medical Equipment Procedure Code Equipment Code Equipment Origin al Text Equipment Identifier Dates Mesh Prolene Squ are Flat [id number] Surgical Knit Nonabsorbable Nonreactive - [id number] Start: 08-12-2020 Functional Status Date Assessment Result Facility 04-15-2023 Functional Status N/A [facility] 05-17-2022 Functional Status N/A [facility] 11-16-2021 Functional Status N/A [facility] 10-05-2021 Functional Status N/A [facility] Clinical Notes 08-12-2020 to 06-27-2023 Nanci Miller APRN.COMMERCIAL MANAGEMENT ACCOUNTANT - 06/25/2023 11:43 AM EDTPatient Nanci Gaxiola APRN.CNP - 06/25/2023 11:06 AM EDTTelephone Encounter - Teresa Moore - 04/26/2023 1:09 PM EDT Note Date & Type Note Facility 06-27-2023 Hospital Discharg e instructions Follow Up Care 06/27/2023 14:46:38 With:Dougie Harmon DO, ONC Address: [facility] [address] [place] [phone] Fax Business (1) When: Unknown Comments:f/u in 6 months.no imaigng.cbc, cmp, cea, iron studies, b12, foalte prior to f/u. [facility] 06-25-2023 Note HNO ID: [id number] Author: NANCI MILLER APRN.CNP Service: ? Author Type: Nurse Practitioner Type: Progress Notes Filed: 06/25/2023 11:47 Note Text: Outside referral for ARM. Sc[facility] into [facility] 06-25-2023 Note HNO ID: [id number] Author: NANCI MILLER APRN.COMMERCIAL MANAGEMENT ACCOUNTANT Service: ? Author Type: Nurse Practitioner Type: Progress Notes Filed: 06/25/2023 11:54 Note Text: PELVIC FLOOR COLON AND RECTAL SURGERY Reason for visit: Review anorectal manometry and EMG results History of Present Illness: Lakia Rodriguez is a 72 year old MALE who was seen at the request of Dr. Alcaraz for anorectal manometry testing, rectal sensation testing and EMG recruitment. Ms. Rodriguez was referred for testing due to symptoms of abdominal bloating, alternating constipation and diarrhea with fecal incontinence. Patient has history of rectal cancer and underwent low anterior resection with diverting loop ileostomy in 2016 followed by stoma closure. Patient reports having neoadjuvant chemo and radiation.. . Duration of symptoms: Worsening over the past 1 to 2 years. States since bowel resection in 2016 intermittent episodes of bowel issues Is complaint is abdominal bloating and intermittent episodes of fecal incontinence that typically can occur around twice a month at night. Also with intermittent episodes of fecal incontinence during the day with urgency. Patient reports stool can range from very loose to hard/dry. Has previously taken MiraLAX and a fiber supplement with no noticeable improvement. Not currently taking anything on a regular basis. Does have a prescription for senna tablets which he takes very rarely. States using Pepto-Bismol for episodes of diarrhea that will typically improve his symptoms. Episodes of loose stools or diarrhea will occur for half a day 1-2 times per month. Patient states he may go a few days without a bowel movement at all. He reports abdominal bloating on a daily basis. Do you have anorectal pain: No Stool frequency: See above Stool type: Type 1: Separate hard lumps, like nuts (hard to pass) Type 2: Sausage-shaped but lumpy Type 6: Fluffy pieces with ragged edges, a mushy stool Type 7: Watery, no solid pieces (entirely liquid) Stool straining: mild straining with the start of hard stool Frequency of straining: sometimes Does anything make your symptoms better? Nothing has noticeably improved his symptoms. 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 PICC LINE INSERT/CONSULT 01/31/2016 TOOTH EXTRACTION Current Outpatient Medications Medication Sig Dispense Refill lisinopril 2.5 mg tablet Take 1 tablet [...] daily. While taking narcotic pain medication 0 glipiZIDE (GLUCOTROL XL) 2.5 mg 24 hr tablet Take 2.5 mg by mouth once daily. 11 loperamide (IMODIUM) 2 mg cap(s) TAKE 2 CAPSULES BY MOUTH BEFORE MEALS AND AT BEDTIME [address] (PROTONIX) 40 mg tablet Take 1 tablet by mouth DAILY (6 AM). 0 No current facility-administered medications for this visit. ALLERGIES Allergen Reactions Penicillins Unknown Ragweed Shortness of Breath FAMILY HISTORY Problem Relation Age of Onset other (bone cancer) Father Social History Tobacco Use Smoking status: Never Smokeless tobacco: Never Vaping Use Vaping Use: Never used Substance Use Topics Alcohol use: No Drug use: No Phy (more content not included)... [facility] 06-25-2023 History of Presen t illness Narrative Outside referral for ARM. Scanned into [employer] documented in this encounter [facility] 06-25-2023 Instructions Nanci Miller APRN.CNP - 06/25/2023 11:26 AM EDT - Normal pelvic floor test results. 1. Testing revealed normal pelvic floor muscle strength, movement, and coordination. 2. You may start a daily fiber supplement powder to bulk stool and regulate bowel habits. Fiber POWDER (metamucil or konsyl) - 1 tsp of powder mixed in 4-8 ounces of liquid every morning x 1 week; then increase to 1 heaping tablespoon of powder mixed in 4-8 ounces of liquid indefinitely. Adjust dose as needed to achieve formed soft stool. 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 4. Follow up with your referring provider as planned. documented in this encounter [facility] 06-25-2023 History of Presen t illness Narrative PELVIC FLOOR COLON & RECTAL SURGERY Reason for visit: Review anorectal manometry and EMG results History of Present Illness: Lakia Rodriguez is a 72 year old MALE who was seen at the request of Dr. Alcaraz for anorectal manometry testing, rectal sensation testing and EMG recruitment. Ms. Rodriguez was referred for testing due to symptoms of abdominal bloating, alternating constipation and diarrhea with fecal incontinence. Patient has history of rectal cancer and underwent low anterior resection with diverting loop ileostomy in 2015 followed by stoma closure. Patient reports having neoadjuvant chemo and radiation.. . Duration of symptoms: Worsening over the past 1 to 2 years. States since bowel resection in 2016 intermittent episodes of bowel issues Is complaint is abdominal bloating and intermittent episodes of fecal incontinence that typically can occur around twice a month at night. Also with intermittent episodes of fecal incontinence during the day with urgency. Patient reports stool can range from very loose to hard/dry. Has previously taken MiraLAX and a fiber supplement with no noticeable improvement. Not currently taking anything on a regular basis. Does have a prescription for senna tablets which he takes very rarely. States using Pepto-Bismol for episodes of diarrhea that will typically improve his symptoms. Episodes of loose stools or diarrhea will occur for half a day 1-2 times per month. Patient states he may go a few days without a bowel movement at all. He reports abdominal bloating on a daily basis. Do you have anorectal pain: No Stool frequency: See above Stool type: Type 1: Separate hard lumps, like nuts (hard to pass) Type 2: Sausage-shaped but lumpy Type 6: Fluffy pieces with ragged edges, a mushy stool Type 7: Watery, no solid pieces (entirely liquid) Stool straining: mild straining with the start of hard stool Frequency of straining: sometimes Does anything make your symptoms better? Nothing has noticeably improved his symptoms. 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 PICC LINE INSERT/CONSULT 01/31/2016 TOOTH EXTRACTION Current Outpatient Medications Medication Sig Dispense Refill lisinopril 2.5 mg tablet Take 1 tablet [...] daily. While taking narcotic pain medication 0 glipiZIDE (GLUCOTROL XL) 2.5 mg 24 hr tablet Take 2.5 mg by mouth once daily. 11 loperamide (IMODIUM) 2 mg cap(s) TAKE 2 CAPSULES BY MOUTH BEFORE MEALS AND AT BEDTIME [address] (PROTONIX) 40 mg tablet Take 1 tablet by mouth DAILY (6 AM). 0 No current facility-administered medications for this visit. ALLERGIES Allergen Reactions Penicillins Unknown Ragweed Shortness of Breath FAMILY HISTORY Problem Relation Age of Onset other (bone cancer) Father Social History Tobacco Use Smoking status: Never Smokeless tobacco: Never Vaping Use Vaping Use: Never used Substance Use Topics Alcohol use: No Drug use: No Physical Exam: There were no vitals filed for this visit. General Appearance: Well appearing, alert, in no acute distress, well-hydrated, well nourished. Anorectal: Perianal skin is intact. No erythema, induration or excoriation. No fissure, fistula or external hemorrhoids. Digital Rectal Exam: Anus: closed Resting tone: NORMAL Squeeze tone: NORMAL Valsalva: pelvic floor relaxation is Normal. Puborectalis: non-tender in Left anterior, Right anterior, Left posterior, and Right posterior to palpation on valsalva Full thickness rectal prolapse: No Assessment Anorectal Physiology tests reviewed at today's visit: Reason for testing: constipation, fecal incontinence, and hx rectal cancer/LAR Ileoanal pouch: No Anorectal Manometry Testing: Strength: Anorectal manometry was performed. Average Pressure Interpretation Rest: 37.4 mmHg This is within normal range. Normal range is 35-50 mmHg. Squeeze: 90.9 mmHg This is within normal range. Normal range is 75 - 100 mmHg. There is appropriate incremental change between resting and squeeze pressures which can indicate good pelvic floor movement with squeeze. Sensory: Sensation Volume First sensation : 60 mL / Normal Range: 40-80 mL First urge to defecate: 80 mL / Normal Range: 80-120 mL Maximum tolerable volume: 110 mL / Normal Range: 120-180 mL Recto-anal inhibitory reflex: Yes Balloon expulsion: Yes This exhibit normal rectal sensation with at least 2/3 sensory tests. A recto-anal inhibitory reflex (RAIR) was present. This is a normal reflex. EMG Recruitment: EMG recruitment was performed. The patient shows a normal increase in activity with squeeze, and a appropriate decrease in activity with valsalva. This indicates normal pelvic floor movement. Assessment and Plan: Lakia Rodriguez is a 72 year old MALE who was referred for anorectal physiology testing due to symptoms of abdominal bloating, alternating constipation and diarrhea with fecal incontinence. Patient has history of rectal cancer and underwent low anterior resection with diverting loop ileostomy in 2016 followed by stoma closure. Patient reports having neoadjuvant chemo and radiation.. The testing that was performed today includes anorectal manometry, rectal sensory testing, balloon expulsion and EMG recruitment. These test results were reviewed with Lakia Rodriguez and are listed above. Overall, these tests show normal anal sphincter strength, normal rectal sensation, and normal pelvic floor movement. 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 Anorectal manometry testing was otherwise normal today. Recommendations for this include: - Normal pelvic floor test results. 1. Testing revealed normal pelvic floor muscle strength, movement, and coordination. 2. You may start a daily fiber supplement powder to bulk stool and regulate bowel habits. Fiber POWDER (metamucil or konsyl) - 1 tsp of powder mixed in 4-8 ounces of liquid every morning x 1 week; then increase to 1 heaping tablespoon of powder mixed in 4-8 ounces of liquid indefinitely. Adjust dose as needed to achieve formed soft stool. May also consider MiraLAX on a more regular basis. 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 See handout. 4. Follow up with your referring provider as planned. Nanci Miller APRN.COMMERCIAL MANAGEMENT ACCOUNTANT Pelvic Floor Colorectal Surgery I spent a total of 60 minutes on the date of the service which included preparing to see the patient, myac-ed-noup patient care, completing clinical documentation, obtaining and/or reviewing separately obtained history, performing a medically appropriate examination, counseling and educating the patient/family/caregiver, ordering medications, tests, or procedures, and communicating results to the patient/family/caregiver. documented in this encounter [facility] 04-26-2023 Miscellaneous Notes Called and LVM regarding referral for Manometry by Kei Franco. documented in this encounter [facility] 01-23-[address] [facility] 01-23-2023 Note Review of Systems All other systems reviewed and are negative. PT JUST GETTING OVER COVID. FEELS GOOD, HE IS HOPING TO GO SOUTH SOON, BP ON TH LOWER SIDE TODAY, DOES NOT FEEL DIZZY [facility] 01-08-[address] [facility] 01-08-[address] [facility] 12-26-[address] [facility] 12-12-[address] [facility] 12-12-[address] [facility] 12-05-[address] [facility] 12-05-[address] [facility] 12-05-[address] [facility] 12-05-[address] [facility] 12-05-[address] [facility] 12-05-[address] [facility] 12-05-[address] [facility] 12-04-[address] [facility] 12-04-[address] [facility] 12-04-2022 Note Addendum created [id number] by Robin Pérez Intraprocedure Staff edited (Perfusion) [facility] 12-04-[address] [facility] 12-03-[address] [facility] 12-03-[address] [facility] 12-03-[address] [facility] 12-03-[address] [facility] 12-03-[address] [facility] 12-03-[address] [facility] 12-02-[address] [facility] 12-02-2022 Note This report has been cancelled. [facility] 12-02-[address] [facility] 12-01-[address] [facility] 12-01-[address] [facility] 12-01-2022 Note Chest tube placed at bedside per ICU MD. Patient signed consent and placed in chart. Patient tolerated procedure well. Patient Vitals are as charted. CXR ordered. Safety Maintained. [facility] 12-01-[address] [facility] 11-30-[address] [facility] 11-30-[address] [facility] 11-30-[address] [facility] 11-29-[address] [facility] 11-29-[address] [facility] 11-29-[address] [facility] 11-28-[address] [facility] 11-28-[address] [facility] 11-27-[address] [facility] 11-27-[address] [facility] 11-27-[address] [facility] 11-27-[address] [facility] 11-26-[address] [facility] 11-26-[address] [facility] 11-26-[address] [facility] 11-26-[address] [facility] 08-21-2022 Evaluation + Plan note Extrac lo from: Title:[facility] H[facility]P Author:Aggie Hollingsworth Date: 08/21/22 Impression and [...] stroke: no 4. Serious co-morbid conditions (recent GA, anemia with Hct <30%, CRI with SCr [...] PT 03/06/22 * Vitamin B12 Level 06/27/22 [facility]05-17-2023 Hospital Discharge instructions Follow Up Care 06/27/2022 14:31:43 With:Dougie Harmon DO, ONC Address: [facility] [address] [place] [address] [phone] Fax Business (1) When: Unknown Comments:ct a/p with contrast soon.f/u aftercbc, cmp, cea, iron studies, b12, foalte, lipase prior to f/u. 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 Follow these instructions at home: Take whet-bfu-ptzcdfp and prescription medicines only as told by [...] 08/27/2017 Document Revised: 01/10/2018 Document Reviewed: 10/15/2017 [facility] Patient Education 2020 [employer]. Follow Up Care 11/16/2021 08:43:43 With:Yusra Denis CNP Address: When:1 month [facility] 10-06-2022 Hospital Discharge instructions [...] 10/24/2004 Document Revised: 05/15/2018 Document Reviewed: 05/15/2018 [facility] Patient Education 2020 [employer]. Follow Up Care 10/10/2021 11:02:12 With:Yusra Denis CNP Address: When:6 months [facility] 08-25-2022 Evaluation + Plan noteExtracted from: Title:[facility] POSTOP Author:Dangelo Morel DO Date: 10/05/21 Plan Transfer/ Discharge: Patient can be discharged from PACU when criteria met. Condition good. Extracted from: Title:[facility] PREOP Author:Dangelo Morel DO Date: Plan [place] [employer] (ASA) physical status classification: [...] 01/09/22 * PT 02/06/22 * PT 03/06/22 [facility]08-25-2022 Hospital Discharge instructions Patient Education 10/05/2021 09:56:38 Colonoscopy, Care After Surgery [facility] (CUSTOM) Colonoscopy Care After Surgery Please read the instructions outlined below and refer to this sheet in the next few weeks. These discharge instructions provide you with general information on caring for yourself after you leave thehospital. Your doctor may also give you specific [...] With:Thais HINOJOSA Address: [address] [place] [address] Business (1) When: Unknown Comments:OFFICE WILL CALL DATE AND TIME OF FOLLOW-UP APPT. [facility]06-08-2022 Hospital Discharge instructions Patient Education 07/19/2021 09:11:00 [...] Follow these instructions at home: Medicines Take fzxc-dww-samccml and prescription medicines only as told by your health care provider. If you were prescribed an antibiotic medicine, take it as told by your health care provider. Do notstop taking the antibiotic even if you start to feel better. Eating and drinking Follow any diet changes as told by your health care provider. Work with a diet and nutritionist public health (dietitian) to create an eating plan that [...] 01/25/2001 Document Revised: 06/24/2019 Document Reviewed: 06/24/2019 [facility] Patient Education 2019 [employer] Follow Up Care 07/11/2021 11:18:24 With:Yusra Denis CNP Address: When:1 month [facility] 05-16-2022 Hospital Discharge instructions Follow Up Care 06/26/2021 10:32:10 With:Dougie Harmon Address: [facility] [address] [place] [address] [phone] Fax Business (1) When: Unknown Comments:cbc, cmp, cea in 6mofollow-up in 6mo [facility]03-22-2022 Evaluation + Plan noteExtracted from: Title:- [facility] H&P Author:Aggie Hollingsworth Date :05/02/21 Impression and [...] stroke: no 4. Serious co-morbid conditions (recent GA, anemia with Hct <30%, CRI with SCr > 1.5, DM): yes hx of cancer Score = 2//4 Risk (low = 0, mod = 1-2, high = 3-4) Future Appointments Appointment Date:02/27/2022 07:30:00 AM Scheduled Provider: [facility] Type:Anticoagulation Remote 15 (FT) Appointment Date:05/17/2022 08:00:00 AM Scheduled Provider:Yusra Denis CNP Location:[facility] Appointment Type:BADH Follow Up Appointment Date:06/27/2022 01:30:00 PM Scheduled Provider:Dougie Harmon DO [facility] Type:[facility]C Office Visit 15 (FT) Future [...] 01/09/22 * PT 02/06/22 * PT 03/06/22 [facility]07-02-2021 History of Past illness Narrative* Problem Noted [...] of this encounter (statuses as of 04/26/2023) [facility] Future Appointments Appointment Date:06/19/2021 [...] 01/09/22 * PT 02/06/22 * PT 03/06/22 [facility] Future Appointments Appointment Date:06/26/2021 [...] 01/09/22 * PT 02/06/22 * PT 03/06/22 [facility] Future Appointments Appointment Date:08/08/2021 08:30:00 AM Scheduled Provider: [facility]oint[facility] Type:Anticoagulation Follow Up 15 (FT) Appointment Date:08/28/2021 12:50:00 PM Scheduled Provider: Location:[facility] Appointment Type:Surgery FT Appointment Date:12/28/2021 01:00:00 PM Scheduled Provider:Dougie Harmon DO [facility] Type:ONC Office Visit 15 (FT) Future [...] 01/09/22 * PT 02/06/22 * PT 03/06/22 [facility] Evaluation + Plan note Future Appointments Appointment Date:11/24/2021 09:30:00 AM Scheduled Provider: [facility] Type:Anticoagulation Follow Up 15 (FT) Appointment Date:12/28/2021 01:00:00 PM Scheduled Provider:Dougie Harmon DO Location:.ONCOLOGY Appointment Type:ONC Office Visit 15 (FT) Appointment Date:05/17/2022 08:00:00 AM Scheduled Provider:Yusra Denis CNP Location:[facility] Appointment Type:BAD Follow Up Future [...] 01/09/22 * PT 02/06/22 * PT 03/06/22 [facility] Evaluation + Plan note Future Appointments Appointment Date:12/28/2021 01:00:00 PM Scheduled Provider:Dougie Harmon DO Location:[facility] Appointment Type:ONC Office Visit 15 (FT) Appointment Date:01/09/2022 09:00:00 AM Scheduled Provider: [facility] Type:Anticoagulation Follow Up 15 (FT) Appointment Date:05/17/2022 08:00:00 AM Scheduled Provider:Yusra Denis CNP Location:[facility] Appointment Type:[facility] Follow Up Future Scheduled Tests Laboratory* PT 03/07/21 * PT 04/04/21 * PT 05/02/21 * PT 05/30/21 * PT 06/27/21 * PT 07/25/21 * PT 08/22/21 * PT 09/19/21 * PT 10/17/21 * PT 11/14/21 * PT 12/12/21 * PT 01/09/22 * PT 02/06/22 * PT 03/06/22 [facility] Future Appointments Appointment Date:01/09/2022 09:00:00 AM Scheduled Provider: [facility] Type:Anticoagulation Follow Up 15 (FT) Appointment Date:05/17/2022 08:00:00 AM Scheduled Provider:Yusra Denis CNP Location:[facility] Appointment Type:BADH Follow Up Appointment [...] 01/09/22 * PT 02/06/22 * PT 03/06/22 [facility] Future Appointments Appointment Date:06/01/2022 09:30:00 AM Scheduled Provider: [facility] Type:Anticoagulation Follow Up 15 (FT) Appointment Date:06/15/2022 08:00:00 AM Scheduled Provider:Yusra Denis CNP Location:[facility] Appointment Type:BADH Follow Up Appointment [...] PT 03/06/22 * Vitamin B12 Level 05/17/22 [facility] Evaluation + Plan note Future Appointments Appointment Date:06/27/2022 08:20:00 AM Scheduled Provider:Yusra Denis CNP Location:[facility] Appointment Type:BADH Follow Up Appointment Date:06/27/2022 02:00:00 PM Scheduled Provider:Dougie Harmon DO Location:[facility].ONCOLOGY Appointment Type:ONC Office Visit 15 (FT) Appointment Date:07/10/2022 09:30:00 AM Scheduled Provider: Location:[facility] Appointment Type:Anticoagulation Follow [...] PT 03/06/22 * Vitamin B12 Level 05/17/22 [facility] Evaluation + Plan note Future Appointments Appointment Date:06/27/2023 02:00:00 PM Scheduled Provider:Dougie Harmon DO Location:.ONCOLOGY Appointment Type:ONC Office Visit 15 (FT) Future Scheduled Tests Laboratory* PT 04/30/22 * PT 05/31/22 * PT 06/30/22 * Vitamin B12 Level 06/27/22 Radiology* CT Abdomen/Pelvis w/ + w/o Contrast 04/15/23 [facility] Evaluation + Plan note Future Appointments Appointment Date:04/23/2023 12:00:00 PM Scheduled Provider: Location:[facility]AN Appointment Type:CT Abdomen/Pelvis Combo (FT) Appointment Date:06/27/2023 02:00:00 PM Scheduled Provider:Dougie Harmon DO Location:[facility].ONCOLOGY Appointment Type:ONC Office Visit 15 (FT) Future Scheduled Tests Laboratory* PT 04/30/22 * PT 05/31/22 * PT 06/30/22 * Vitamin B12 Level 06/27/22 Radiology* CT Abdomen/Pelvis w/ + w/o Contrast 04/23/23 [facility] Future Appointments Appointment Date:06/27/2023 02:00:00 PM Scheduled Provider:Dougie Harmon DO Location:.ONCOLOGY Appointment Type:ONC Office Visit 15 (FT) Future Scheduled Tests Laboratory* PT 04/30/22 * PT 05/31/22 * PT 06/30/22 * Vitamin B12 Level 06/27/22 [facility] Future Appointments Appointment Date:06/27/2023 02:00:00 PM Scheduled Provider:Dougie Harmon DO Location:.ONCOLOGY Appointment Type:ONC Office Visit 15 (FT) Future Scheduled Tests Laboratory* PT 06/30/22 * Vitamin B12 Level 06/27/22 [facility] Future Appointments Appointment Date:07/25/2023 11:30:00 AM Scheduled Provider:Dougie Harmon DO Location:.ONCOLOGY Appointment Type:ONC Office Visit 30 (FT) Future Scheduled Tests Laboratory* CBC w/ Auto Diff 07/25/23 * CEA 07/25/23 * Comprehensive Metabolic Panel 07/25/23 * Ferritin 07/25/23 * Folate Level 07/25/23 * Iron Level 07/25/23 * Iron Percent Saturation 07/25/23 * Lipase Level 07/25/23 * PT 06/30/22 * Transferrin 07/25/23 * Vitamin B12 Level 07/25/23 Radiology* CT Abdomen/Pelvis w/ Contrast 06/28/23 [facility] Future Appointments Appointment Date:07/06/2023 10:00:00 AM Scheduled Provider: Location:[facility] Appointment Type:CT Abdomen/Pelvis Combo (FT) Appointment Date:07/25/2023 11:30:00 AM Scheduled Provider:Dougie Hramon DO Location:.ONCOLOGY Appointment Type:ONC Office Visit 30 (FT) Future Scheduled Tests Laboratory* CBC w/ Auto Diff 07/25/23 * CEA 07/25/23 * Comprehensive Metabolic Panel 07/25/23 * Ferritin 07/25/23 * Folate Level 07/25/23 * Iron Level 07/25/23 * Iron Percent Saturation 07/25/23 * Lipase Level 07/25/23 * PT 06/30/22 * Transferrin 07/25/23 * Vitamin B12 Level 07/25/23 Radiology* CT Abdomen/Pelvis w/ Contrast 07/06/23 [facility] Future Appointments Appointment Date:07/25/2023 11:30:00 AM Scheduled Provider:Dougie Harmon DO Location:.ONCOLOGY Appointment Type:ONC Office Visit 30 (FT) Future Scheduled Tests Laboratory* CBC w/ Auto Diff 07/25/23 * CEA 07/25/23 * Comprehensive Metabolic Panel 07/25/23 * Ferritin 07/25/23 * Folate Level 07/25/23 * Iron Level 07/25/23 * Iron Percent Saturation 07/25/23 * Lipase Level 07/25/23 * PT 06/30/22 * Transferrin 07/25/23 * Vitamin B12 Level 07/25/23 [facility] Future Appointments Appointment Date:07/25/2023 11:30:00 AM Scheduled Provider:Dougie Harmon DO [facility]C Office Visit 30 (FT) [facility] Future Scheduled Tests Laboratory* CBC w/ Auto Diff 06/02/24 * CEA 06/02/24 * Comprehensive Metabolic Panel 06/02/24 * Ferritin 06/02/24 * Folate Level 06/02/24 * Iron Level 06/02/24 * Iron Percent Saturation 06/02/24 * Transferrin 06/02/24 * Vitamin B12 Level 06/02/24 [facility] Diagnosis Abdominal bloating- Primary Flatulence, eructation, and gas pain Incontinence of feces with fecal urgency [facility] Diagnosis Abdominal bloating- Primary Flatulence, eructation, and gas pain Alternating constipation and diarrhea Other symptoms involving digestive system Personal history of rectal cancer Personal history of malignant neoplasm of rectum, rectosigmoid junction, and anus Low anterior resection syndrome [facility] Narrative No data available for this section [facility] No data available for this section [facility] No data available for this section [facility] HospitalReason for referral (narrative)* Outpatient Procedure (Routine) - Pending Review Specialty Diagnoses / Procedures Referred By Mark rodríguez Referred To Contact [facility] Diagnoses Abdominal bloating Incontinence of feces with fecal urgency Procedures ADULT [place] ANORECTAL MANOMETRY ANORECTAL MANOMETRY Nanci Miller APRN.CNP [address] [place] [address] [facility] [place] [address] [place] [address] Referral ID Status Reason Start Date Expiration Date Visits Requested Visits Authorized [id number] Pending Review Auto-Generat ed Referral 06/25/2023 06/24/2024 1 1 [facility] Summary Purpose Family History No [...] FoundDocuments on File Type Date Recorded 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 Advance Directive(s) 06/27/2018 11:11 AM Documents on File Type Date Recorded 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 Advance Directive(s) 06/27/2018 11:11 AM Hospital Course Note [address] [place] [address] Discharge Summary Signed:[id number] Name: LAKIA RODRIGUEZ MRUN: [id number] : 1950 Loc: 3S Age / Sex: 68/ M Adm Status: ADM Leonor Adm Date:06/03/19 Room/Bed: [facility] Date of Service - Date of Service Date: 06/05/19 - Time Spent on Discharge Minutes spent on discharge:: 45 - Hospital Summary Hospital Summary:: This is a pleasant 68-year-old male with a history of diabetes mellitus and colon cancer was brought into the emergency room by the customer care associate for further evaluation and management of a syncopal event. Patient was in his usual state of health until this afternoon. 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 He was taking the exit to get to the Highway around 4:30 PM after exchanging the trailer with his colleague. He felt like his truck is spinning around. The next thing he knew was customer care associate were knocking on the door. He was [...] section and content) DATE CREATED AUTHOR 01/23/2018 [facility] DATE CREATED AUTHOR AUTHOR'S ORGANIZ ATION 04/12/2020 [facility] DATE CREATED AUTHOR AUTHOR'S ORGANIZ ATION 12/23/2021 [facility] DATE CREATED AUTHOR AUTHOR'S ORGANIZ ATION 06/27/2023 [facility] DATE CREATED AUTHOR AUTHOR'S ORGANIZ ATION 07/05/2023 [facility] DATE CREATED AUTHOR AUTHOR'S ORGANIZ ATION 07/19/2023 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 Relationship Specialty Start Date End Date Cynthia Aguila CNP [address] [facility] [place] [address] PCP - General 08/05/18 Lakia Dyson MD [address] [facility] [place] [address] Referring Family Medicine 05/04/20 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 Operator Relationship Specialty Start Date End Date Cynthia Aguila CNP [address] [facility] [place] [address] PCP - General 08/05/18 Lakia Dyson MD [address] [facility] [place] [address] Referring Family Medicine 05/04/20 Source Comments (unrecognize d section and content) In the event this informatio n is protected by the Federal Confidentiality of Alcohol and Drug Abuse Patient Records regulations: The Federal rules restrict any use of the information to criminally investigate or prosecute any alcohol or drug abuse patient.[facility] Center[facility] the event this information is protected by the Federal Confidentiality of Alcohol and Drug Abuse Patient Records regulations: The Federal rules restrict any use of the information to criminally investigate or prosecute any alcohol or drug abuse patient.[facility] Center[facility] the event this information is protected by the Federal Confidentiality of Alcohol and Drug Abuse Patient Records regulations: The Federal rules restrict any use of the information to criminally investigate or prosecute any alcohol or drug abuse patient.[facility] FOR RECORDS PERTAINING TO PATIENTS WHO ARE [...] BE BASED ON THE PRIMARY CLINICAL RECORDS. [facility] [employer] [facility]. provides no warranty or guarantee of the accuracy or completeness of information in this document.
[2023-07-31 10:26] LABS: Thyroid Stimulating Hormone 1.193 uIU/mL (0.358-3.740)
[2023-07-31 11:30] LABS: Free T4 1.32 ng/dL (0.76-1.46)
== END 2023-07-31 08:50 | disposition home or self-care (01) ==
LOC: LAB 08:50
PROVIDERS: PCP Nurse Practitioner Family; Visit Provider Internal Medicine Cardiovascular Disease
DX: R00.2 Palpitations (principal)
CPT/HCPCS: 36415; 84439; 84443

== ENCOUNTER 2023-08-08 06:49 | Outpatient (OUT) | payer MEDICARE, OTHER, SELFPAY ==
--- OUTSIDE RECORDS SUMMARY | 2023-08-08 06:54 | XMS_ITS | CCD ---
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 Name Role Phone RANIMARIO ALBERTO MARS KARINA Unavailable Unavailab Lakia May Primary Care Physician Josephine Zambrano Unavailable Unavailable Aggie [place] Unavailable Unavailable DR LAKIA DYSON Primary Care Unavailable CYNTHIA AGUILA Attending Unavailable CYNTHIA AGUILA Admitting Unavailable DR LAKIA DYSON Primary Care Unavailable CYNTHIA AGUILA Attending Unavailable CYNTHIA AGUILA Consulting Unavailable MINGO, CYNTHIA Admitting Unavailable Cynthia Aguila CNP Primary Care Provider Lakia Dyson MD Unavailable Cynthia Aguila CNP Primary Care Provider NANCI MILLER Attending Unavailable MINGO, CYNTHIA S Referring Unavailable CYNTHIA AGUILA Primary Care Unavailable MOOXANA, JOSIAHD Referring Unavailable CYNTHIA AGUILA Primary Care Unavailable NANCI MILLER Attending Unavailable Adamowicz, Dougie Admitting Unavailable Adamowicz, Dougie Attending Unavailable Adamowicz, Dougie Referring Unavailable Adamowicz, Dougie Admitting Unavailable Adamowicz, Dougie Attending Unavailable WILLIS, ELEAZAR Admitting Unavailable WILLIS, ELEAZAR Attending Unavailable Adamowicz, Dougie Admitting Unavailable Adamowicz, Dougie Attending Unavailable Adamowicz, Dougie Attending Unavailable Adamowicz, Dougie Attending Unavailable Moflorenceli, Mohamad A. Admitting Unavailable Mouchli, Mohamad A. Referring Unavailable MoGris daigleamachris A. Attending Unavailable ELEAZAR WILLIS Attending Unavailable WILLIS, ELEAZAR Admitting Unavailable Mouchli, Mohamad A. Admitting Unavailable Mooxana, Mohamad A. Attending Unavailable Ivelisse, Mohamad A. Attending Unavailable JESUS PEÑALOZA Referring Unavailable HAYLEY CLAYTON Referring Unavailable MATILDE, HAYLEY Attending Unavailable GANGWANI, ADRIANA SANTOS Referring Unavailab le GANGWANI, ADRIANA SANTOS Referring Unavailab le ANABLEA, JESUS Admitting Unavailable SHANTELL, MARTIN Referring Unavailable GANGWANI, ADRIANA SANTOS Attending Unavailab le GANGWANI, ADRIANA SANTOS Consulting Unavailab le SHANTELL, MARTIN Referring Unavailable MATILDE, HAYLEY Referring Unavailable MATILDE, HAYLEY Referring Unavailable GANGWANI, ADRIANA SANTOS Referring Unavailab le MOUKARBELCHARLEEN Referring Unavailable ANABELA, JESUS Referring Unavailable JONG, MERCEDES Referring Unavailable YEARTY, DEANNA Referring Unavailable TERENCE, NORI Attending Unavailable TERENCE, NORI Attending Unavailable MATILDE, HAYLEY Referring Unavailable GANGWANI, ADRIANA SANTOS Referring Unavailab le MATILDE, HAYLEY Referring Unavailable SHANTELL, MARTIN Referring Unavailable MATILDE, HAYLEY Referring Unavailable GANGWANI, ADRIANA SANTOS Referring Unavailab le YEARTY, DEANNA Referring Unavailable GANGWANI, ADRIANA SANTOS Referring Unavailab le MATILDE, HAYLEY Referring Unavailable MATILDE, HAYLEY Referring Unavailable TERENCE, NORI Attending Unavailable ANABELA, JESUS Referring Unavailable TERENCE, NORI Attending Unavailable GANGWANI, ADRIANA SANTOS Referring Unavailab le GANGWANI, ADRIANA SANTOS Referring Unavailab le GANGWANI, ADRIANA SANTOS Referring Unavailab le SHANTELL, MARTIN Referring Unavailable GANGWANI, ADRIANA SANTOS Referring Unavailab le Allergies Allergy Classification Reported Allergen(s) Allergy Type Date of Onset Reaction(s) Facility Penicillins (antibiotic) (1 source) Penicillins; 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: [penicillins] Drug Allergy [facility] Repository (20 sources) Penicillins; 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: [PENICILLINS] Propensity to adverse reactions to drug (disorder) 6 Unknown [facility] Repository (19 sources) RAGWEED; 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: [RAGWEED] Propensity to adverse reactions to drug (disorder) 6 Dyspnea (finding), Shortness of Breath [facility] Repository (1 source) house dust allergenic extract; 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: [HOUSE DUST] Drug Allergy 3 [facility] Repository Medications Current Medications Medication Drug Class(es) Dates Sig (Normalized) Sig (Original) acetaminophen 500 mg oral tablet (3 sources) Start: 08-19-2020 take 2 tablets by mouth every six hours as needed acetaminophen (TYLENOL) 500 mg tablet Take 2 tablets by mouth every 6 hours as needed for pain. 0 08/19/2020 Active Comment on above: Take [address] [facility] every 6 hours as needed for [...] QID for wheezing, 6.7 gram, Refill(s) 0, [facility]/pharmacy #[id number] Start Date: 05/13/18 Status: Ordered amLODIPine 2.5 [...] BID, # 60 tab(s), Refills(s) 5, Pharmacy: [facility]/pharmacy #[id number] Start Date: 08/29/18 Status: Ordered atorvastatin 10 mg oral tablet (20 sources) HMG-CoA Reductase Inhibitor Start: 11-22-2017 take 1 tablet by mouth once daily atorvastatin 10 mg Tab 10 mg = 1 tab(s), Oral, Daily, # 30 tab(s), Refills(s) 0, High cholesterol Start Date: 11/22/17 Status: Ordered Comment on above: Take 1 tablet by paula th once daily. bisacodyl 10 mg rectal suppository (9 sources) Stimulant Laxative Start: 04-15-2023 take 10 mg rectal route once daily as needed for constipation bisacodyl 10 mg Supp 10 mg = 1 supp, Rectal, Daily, PRN for constipation, # 12 supp, Refills(s) 0, Pharmacy: [facility]/pharmacy #[id number], 167, cm, 04/15/23 12:19:00 [...] on above: Take [address] [facility] twice daily. While taking narcotic pain [...] Comment on above: Take 1 tablet by paual th once daily. loperamide hydrochloride 2 mg [...] mg/ml oral suspension (3 sources) Start: 08-20-19 21 take 30 mL by mouth once daily [...] 1 EA, Refill(s) 0, Prior to colonoscopy., [facility]/pharmacy #[id number], 167.6, cm, 07/19/21 8:57:00 EDT, Height/Length Dosing, 93, kg, 07/19/21 8:57:00 EDT, Weight Dosing Start Date: 07/19/21 Status: Ordered oxyCODONE hydrochloride 5 mg oral tablet (3 sources) Opioid Agonist Start: 08-20-19 21 take 1 tablet by mouth every six hours as needed oxyCODONE IR (ROXICODONE) 5 mg immediate release tablet Take 1 tablet by mouth every 6 hours as needed. 0 08/19/2020 Active Comment on above: Take 1 tablet by paula th every 6 hours as needed. pantoprazole 40 mg extended release oral tablet (20 sources) Proton Pump Inhibitor Start: 02-18-19 18 take 40 mg by mouth once daily [...] Peroxisome Proliferator Receptor gamma Agonist, Thiazolidinedione Start: take 1 tablet by mouth once daily pioglitazone 15 mg Tab 15 mg = 1 tab(s), Oral, Daily, Refills(s) 0, Blood glucose Start Date: 05/12/18 Status: Ordered polyethylene glycol 3350 94287 mg powder for oral solution (17 sources) [...] day, # 21 tab(s), Refills(s) 0, Pharmacy: [facility]/pharmacy #[id number] Start Date: 05/13/18 Status: Ordered psyllium 525 mg oral capsule (7 sources) Start: End: take 5 capsules by mouth once daily Metamucil 525 mg oral capsule 2,625 mg = 5 cap(s), Oral, Daily, X 90 day(s), # 450 cap(s), Refills(s) 3, Pharmacy: [facility]/pharmacy #[id number], 167.6, cm, 06/27/22 8:28:00 [...] Status: Ordered Senna Leaves (9 sources) Start: 024 Senna 8.6 mg oral tablet 17.2 mg, 2 tab(s), Oral, BID for constipation, 100 tab(s), Refill(s) 4, [facility]/pharmacy #[id number], 167, cm, 04/15/23 12:19:00 [...] results, # 90 tab(s), Refills(s) 0, Pharmacy: [facility]/pharmacy #[id number], 167.6, cm, 01/02/19 13:46:00 [...] thrombophilia] Onset: 6 11-14-2020 Chronic Conduction disorders (4 sources) Encounter for checking and testing of cardiac pacemaker pulse generator [battery]; 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: [Presence of automatic (implantable) cardiac defibrillator] Onset: 3 Chronic Congestive heart failure; nonhypertensive (9 sources) Chronic systolic heart failure; 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: [Chronic systolic (congestive) heart failure] Onset: 9 10-10-2018 Chronic Coronary atherosclerosis and other heart disease (7 sources) Calcification of coronary artery; 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: [Atherosclerotic heart disease of [place] coronary artery without angina pectoris] Onset: 9 [...] sources) Long-term current use of anticoagulant; 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: [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] Onset: 01-11-2016 Episodic Other aftercare (3 sources) Patient encounter status; 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: [Encounter for therapeutic drug level monitoring] Onset: 01-31-2016 03-11-2016 Episodic Other aftercare (2 sources) care home (current) use of 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; 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: [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 Previous work up: Labs: 03/28/23 EGD: 10/05/21 Colonoscopy: 10/05/21 Imaging: US 03/28/23 07/25/23 he complains of a cyclical diarrhea. He notes every 5 or 6 days he gets a course of nausea without vomiting. 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 He gets diarrhea maybe 8 [...] changes of the lumbar spine. Followup at [facility] rectal team showed normal rectal manometry. He [...] 2017 dx (more content not included)... Normal [facility] Ambulatory Visit Summaryon 0 07-25-2023 Ambulatory Visit [...] studies, b12, foalte prior to f/u. Where: [facility] [place] [address] [phone] Fax Business (1) Medications What How Much [...] for choosing us for your care. Normal [facility] Consent for Treatmenton 07-12 Consent for Treatment [id number] .00TIFF Normal [facility] CBC w/ Auto Diffon 4 Basophils/100 WBC (Bld) 0.2 % Normal 0.0-2.0 [facility] Comment on above: Performed By: #### 2 [id number] #### [facility] [address] [place] [address] Basophils/Leukocytes Auto (Bld) [Pure # fraction] 0.0 E9/L Normal 0.0-0.2 [facility] Comment on above: Performed By: #### 2 [id number] #### [facility] [address] [place] [address] Eosinophils (Bld) [#/Vol] 0.3 E9/L Normal 0.0-0.5 [facility] Comment on above: Performed By: #### 2 [id number] #### [facility] [address] [place] [address] Eosinophils/100 WBC (Bld) 4.1 % Normal 0.0-8.0 [facility] Comment on above: Performed By: #### 2 [id number] #### [facility] [address] [place] [address] Erythrocyte distribution width (RBC) [Ratio] 15.8 % High 10.9-14.2 [facility] Comment on above: Performed By: #### 2 [id number] #### [facility] [address] [place] [address] Hematocrit (Bld) [Volume fraction] 46.2 % Normal 37.7-49.0 [facility] Comment on above: Performed By: #### 2 [id number] #### [facility] [address] [place] [address] Hemoglobin (Bld) [Mass/Vol] 15.8 g/dL Normal 13.5-17.5 [facility] Comment on above: Performed By: #### 2 [id number] #### [facility] [address] [place] [address] Lymphocytes (Bld) [#/Vol] 0.9 E9/L Low 1.0-4.0 [facility] Comment on above: Performed By: #### 2 [id number] #### [facility] [address] [place] [address] Lymphocytes/100 WBC (Bld) 12.6 % Low 14.0-50.0 [facility] Comment on above: Performed By: #### 2 [id number] #### [facility] [address] [place] [address] MCH (RBC) [Entitic mass] 31.1 pg Normal 27.0-34.0 [facility] Comment on above: Performed By: #### 2 525014 #### [facility] [address] [place] [address] MCHC (RBC) [Mass/Vol] 34.1 g/dL Normal 31.4-36.0 [facility] Comment on above: Performed By: #### 2 267561 #### [facility] [address] [place] [address] MCV (RBC) [Entitic vol] 91.1 fL Normal 80.0-100.0 [facility] Comment on above: Performed By: #### 2 276560 #### [facility] [address] [place] [address] Monocytes (Bld) [#/Vol] 0.5 E9/L Normal 0.2-1.0 [facility] Comment on above: Performed By: #### 2 368113 #### [facility] [address] [place] [address] Neutrophils (Bld) [#/Vol] 5.3 E9/L Normal 2.0-7.5 [facility] Comment on above: Performed By: #### 2 113504 #### [facility] [address] [place] [address] Neutrophils/100 WBC (Bld) 75.9 % High 36.0-75.0 [facility] Comment on above: Performed By: #### 2 340080 #### [facility] [address] [place] [address] Platelet 216.0 E9/L Normal 150.0-500.0 [facility] Comment on above: Performed By: #### 2 [id number] #### [facility] [address] [place] [address] Platelet mean volume (Bld) [Entitic vol] 8.8 fL Normal 6.4-10.8 [facility] Comment on above: Performed By: #### 2 243674 #### [facility] [address] [place] [address] RBC (Bld) [#/Vol] 5.1 E12/L Normal 4.3-5.9 [facility] Comment on above: Performed By: #### 2 272066 #### [facility] [address] [place] [address] WBC corrected for nucl RBC Auto (Bld) [#/Vol] 7.0 E9/L Normal 4.0-11.0 [facility] Comment on above: Performed By: #### 2 317476 #### [facility] [address] [place] [address] CEAon 07-23-2023 CEA 1.4 ng/mL Invalid Interpretation Code [facility] Comment on above: Result Comment: 'NON -SMOKER < 2.5' 'SMOKER < 5.0' The concentration of CEA in a given specimen determined by different manufacturers can vary due to differences in assay methods and reagent specificity. Values obtained with different assay methods cannot be used interchangeably. The methodology used to perform this test was chemiluminescence using [employer] T[employer]'s Access CEA reagent. Performed By: #### 2 [id number] #### [facility] [address] [id number] CHEMISTRYOrdered By: SYSTEM SYSTEM on 07-23-2023 Albumin [...] perform this test was chemiluminescence using [employer] Maupin's Access CEA reagent. Chloride [Moles/Vol] 107 mmol/L [...] 07-23-2023 Albumin [Mass/Vol] 4.1 g/dL Normal 3.3-5.0 [facility] Comment on above: Performed By: #### 2 381024 #### [facility] [address] [place] [address] Albumin/Globulin (S) [Mass conc ratio] 1.7 Normal 1.1-2.2 [facility] Comment on above: Performed By: #### 2 [id number] #### [facility] [address] [place] [address] ALP [Catalytic activity/Vol] 93 Int._Unit/L Normal 21-98 [facility] Comment on above: Performed By: #### 2 561127 #### [facility] [address] [place] [address] ALT No additional P-5'-P [Catalytic activity/Vol] 30 Int._Unit/L Normal 6-46 [facility] Comment on above: Performed By: #### 2 310682 #### [facility] [address] [place] [address] Anion gap [Moles/Vol] 12 mmol/L Normal 6-16 [facility] Comment on above: Performed By: #### 2 [id number] #### [facility] [address] [place] [address] AST [Catalytic activity/Vol] 25 Int._Unit/L Normal 5-43 [facility] Comment on above: Performed By: #### 2 805479 #### [facility] [address] [place] [address] Bilirubin [Mass/Vol] 0.7 mg/dL Normal 0.0-1.1 [facility] Comment on above: Performed By: #### 2 184661 #### [facility] [address] [place] [address] Calcium [Mass/Vol] 9.2 mg/dL Normal 8.9-11.1 [facility] Comment on above: Performed By: #### 2 658548 #### [facility] [address] [place] [address] Chloride [Moles/Vol] 107 mmol/L Normal 101-111 [facility] Comment on above: Performed By: #### 2 944415 #### [facility] [address] [place] [address] CO2 [Moles/Vol] 26 mmol/L Normal 21-[address] [facility] Comment on above: Performed By: #### 2 426566 #### [facility] [address] [place] [address] Creatinine [Mass/Vol] 1.3 mg/dL Normal 0.5-1.3 [facility] Comment on above: Performed By: #### 2 533183 #### [facility] [address] [place] [address] Globulin (S) [Mass/Vol] 2.4 g/dL Normal 1.4-4.0 [facility] Comment on above: Performed By: #### 2 666541 #### [facility] [address] [place] [address] Glucose [Mass/Vol] 170 mg/dL Normal 55-199 [facility] Comment on above: Performed By: #### 2 008866 #### [facility] [address] [place] [address] Potassium [Moles/Vol] 4.0 mmol/L Normal 3.5-5.3 [facility] Comment on above: Performed By: #### 2 143958 #### [facility] [address] [place] [address] Protein [Mass/Vol] 6.5 g/dL Normal 6.0-7.8 [facility] Comment on above: Performed By: #### 2 438700 #### [facility] [address] [place] [address] Sodium [Moles/Vol] 141 mmol/L Normal 135-145 [facility] Comment on above: Performed By: #### 2 264245 #### [facility] [address] [place] [address] Urea nitrogen [Mass/Vol] 19 mg/dL Normal 5-21 [facility] Comment on above: Performed By: #### 2 385082 #### [facility] [address] [place] [address] Urea nitrogen/Creatinine [Mass ratio] 15 No Units Normal 10-20 [facility] Comment on above: Performed By: #### 2 068285 #### [facility] [address] [place] [address] Consent for Treatmenton 07-12 Consent for Treatment [id number] .00TIFF Normal [facility] Ferritinon 07-23-2023 Ferritin [Mass/Vol] 43 ng/mL Normal 24-336 [facility] Comment on above: Performed By: #### 2 [id number] #### [facility] [address] [place] [address] Folateon 07-23-2023 Folate [Mass/Vol] ng/mL Normal >=6.7 [facility] Comment on above: Performed By: #### 2 481425 #### [facility] [address] [place] [address] HEMATOLOGYOrdered By: SYSTEM SYSTEM on 07-23-2023 Basophils/100 [...] 07-23-2023 Iron [Mass/Vol] 83 microgram/dL Normal 35-153 [facility] Comment on above: Performed By: #### 2 433051 #### [facility] [address] [place] [address] Iron Saturationon 07-23-2023 Iron binding capacity [Mass/Vol] 302 microgram/dL Normal 250-400 [facility] Comment on above: Performed By: #### 2 781735 #### [facility] [address] [place] [address] Iron saturation [Mass fraction] 27 % Normal 20-50 [facility] Comment on above: Performed By: #### 2 803584 #### [facility] [address] [place] [address] Lipase Levelon 07-23-2023 Lipase [Catalytic activity/Vol] 29 U/L Normal 13-58 [facility] Comment on above: Performed By: #### 2 363912 #### [facility] [address] [place] [address] Transferrinon 07-23-2023 Transferrin [Mass/Vol] 216 mg/dL Normal 200-370 [facility] Comment on above: Performed By: #### 2 438631 #### [facility] [address] [place] [address] Vit B12on 07-23-2023 Cobalamin (Vitamin B12) [Mass/Vol] 305 pg/mL Normal 50-1500 [facility] Comment on above: Performed By: #### 2 722865 #### [facility] [address] [place] [address] eGFRon 07-23-2023 eGFR 59 mL/min/1.73 m2 Normal >=59 [facility] Comment on above: Order Comment: Order added by Discern Expert. Performed By: #### 1 [id number] #### [facility] [address] [place] [address] CT Abdomen/Pelvis w/ Contras ton 07-11-2023 CT [...] Oral contrast amount in ml's: 900 Normal [facility] Consultation Noteon 07-09-19 Consultation Note [id number] .00TIFF Normal [facility] Oncology Progress Noteon Oncology Progress Note Chief [...] and referred them to colorectal team at [facility] bloating constipation then turns to diarrhea, [...] a rectal manometry and was done at [facility]. 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 [address] [phone] Fax Business (1) Additional Instructions: ct a/p [...] Labs C (more content not included)... Normal [facility] Consent for Treatmenton 06-12 Consent for Treatment [id number] .00TIFF [facility] CHEMISTRYOrdered By: SYSTEM SYSTEM on 07-02-2023 Creatinine [Mass/Vol] 1.3 mg/dL Normal 0.5 - 1.3 mg/dL Remisol Chem eGFR 59 mL/min/1.73 m2 Normal >=59mL/min /1 .73 m2 Remisol Chem Consent for Treatmenton 06-12 Consent for Treatment [id number] .00TIFF Normal [facility] Creatinineon 07-02-2023 Creatinine [Mass/Vol] 1.3 mg/dL Normal 0.5-1.3 [facility] Comment on above: Performed By: #### 2 [id number] #### [facility] [address] [place] [address] Physician Orderon 07-02-2023 Physician Order [id number] #1.00TIFF Normal [facility] eGFRon 07-02-2023 eGFR 59 mL/min/1.73 m2 Normal >=59 [facility] Comment on above: Order Comment: Order added by Discern Expert. Performed By: #### 1 [id number] #### [facility] [address] [place] [address] Consent for Treatmenton 06-11 Consent for Treatment [id number] .00TIFF Normal [facility] CNOVon 06-25-2023 CNOV Office Visit ([facility] ) CEASARLAKIA GAFFNEY ([id number]) 1950 M Date Time Provider Department 06/25/23 11:30 AM NANCI MILLER [facility] During your visit today, we recorded the [...] (bone cance (more content not included)... Normal [facility] RAD - MRI Screening Formon 0 05-09-2023 RAD - MRI Screening Form [id number] .00TIFF Normal [facility] Physician Orderon 05-07-2023 Physician Order [id number] .00TIFF Normal [facility] Physician Orderon 05-03-2023 Physician Order [id number] .00TIFF Normal [facility] CNPNon 04-26-2023 CNPN Telephone ([facility]) LAKIA RODRIGUEZ ([id number]) 1950 M Date Time Provider Department 04/26/23 [facility] During your visit today, we recorded the following information about you: Teresa Moore 04/26/2023 1:11 PM Signed Called and LVM regarding referral for Manometry by [facility]. Allergies As of Date: 04/26/2023 Noted Allergy Reaction PENICILLINS 06/22/2015 16 - Unknown RAGWEED 12/05/2015 12 - Shortness of Breath Date Reviewed: 09/05/2020 Reviewed by: Belem Koch APRN.POWER TRANSFORMER INSPECTOR - Fully Assessed Reason for Visit: Appointment [...] Status:Closed by TERESA MOORE on 04/26/23 Normal [facility] Reminderson 04-24-2023 Reminders - From: Ivelisse ENCISO, Jessica Che To: Bev Chow MA S; Sent: 04/24/2023 10:23:02 EDT ! Show up: 04/24/2023 10:23:02 EDT Actions: Quick Reminder 1 Due Date/Time: 04/25/2023 10:22:00 EDT Reminder Comments: Fat seen in the pancreas. No further workup needed Results: Date Result Type Result Name 04/23/2023 19:[address] Abdomen w/ + w/o Contrast made patient aware, verbalized clear understanding. Normal [facility] CT Abdomen w/ + w/o Contrast on [...] Oral contrast amount in ml's: 450 Normal [facility] Consent for Treatmenton 04-11 Consent for Treatment [id number] .00TIFF [facility] CHEMISTRYOrdered By: SYSTEM SYSTEM on 04-19-2023 Creatinine [Mass/Vol] 1.6 mg/dL High 0.5 - 1.3 mg/dL Remisol Chem eGFR 46 mL/min/1.73 m2 Low >=59mL/min /1 .73 m2 Remisol Chem Consent for Treatmenton Consent for Treatment [id number]#1 .00TIFF Normal [facility] Creatinineon 04-19-2023 Creatinine [Mass/Vol] 1.6 mg/dL High 0.5-1.3 Fis [facility] Comment on above: Performed By: #### 1 [id number] ####[facility] [address] [place] [id number] Physician Orderon 04-19-2023 Physician Order [id number] #1.00TIFF Normal [facility] eGFRon 04-19-2023 eGFR 46 mL/min/1.73 m2 Low >=59 [facility] Comment on above: Order Comment: Order added by Discern Expert. Performed By: #### 1 [id number] ####[facility] [address] [place] [address] Gastroenterology Office/Clin ic Noteon 04-15-2023 Gastroenterology Office/Clinic [...] cold forceps and then dilated using 56 [place] dilator History of Present Illness pt [...] (R14.0: Abdominal (more content not included)... Normal [facility] Comment on above: Result Comment: Elec tronically Signed By: Ivelisse ENCISO, Jessica Che\.br\Date and Time Signed: 04/15/23 13:07 EST Lab Reportson 04-15-2023 Lab Reports [id number]#1 .00TIFF Normal [facility] OT - Otheron 04-15-2023 OT - Other [id number]# 1.00TIFF Normal [facility] RAD - Ultrasound Reporton RAD - Ultrasound Report [id number]#1 .00TIFF Normal [facility] Follow-Upon 12-12-2022 Follow-Up Normal [facility] Documentationon 12-06-2022 Documentation Normal [facility] 30on 12-05-2022 30 Normal [facility] BASIC METABOLIC PANELon 11-12 Anion gap [Moles/Vol] 10 mmol/L Normal 7-[address] [facility] Comment on above: Performed By: #### L [id number] ####[facility] (BEAKER)[address] [place] [address] Calcium [Mass/Vol] 9.3 mg/dL Normal 8.6-10.3 [facility] Comment on above: Performed By: #### L [id number] ####[facility] (BEAKER)[address] [place] [address] Chloride [Moles/Vol] 104 mmol/L Normal 98-107 [facility] Comment on above: Performed By: #### L [id number] ####[facility] ([facility])[address] [place] [address] CO2 [Moles/Vol] 24 mmol/L Normal 21-31 [facility] Comment on above: Performed By: #### L [id number] ####[facility] ([facility])[address] [place] [address] Creatinine [Mass/Vol] 1.20 mg/dL Normal 0.70-1.30 [facility] Comment on above: Performed By: #### L [id number] ####[facility] ([facility])[address] [place] [address] GLOMERULAR FILTRATION RATE ML/MIN/1.73 SQ M.PREDICTED 65.1 mL/min/1.73m*2 Normal >60.0 [facility] Comment on above: Result Comment: [facility]???s estimated glomerular filtration rate (eGFR) will [...] of individuals. Performed By: #### L [id number] ####[facility] ([facility])[address] [place] [address] Glucose [Mass/Vol] 148 mg/dL High 70-100 [facility] Comment on above: Performed By: #### L [id number] ####[facility] ([facility])[address] [place] [address] Potassium [Moles/Vol] 4.3 mmol/L Normal 3.5-5.1 [facility] Comment on above: Performed By: #### L [id number] ####[facility] (BEAKER)[address] [place] [address] Sodium [Moles/Vol] 134 mmol/L Low 136-145 [facility] Comment on above: Performed By: #### L [id number] ####[facility] (BEAKER)[address] [place] [address] Urea nitrogen [Mass/Vol] 28 mg/dL High 7-25 [facility] Comment on above: Performed By: #### L [id number] ####[facility] ([facility] [address] UREA NITROGEN/CREATININE (MASS RATIO) IN SER/PLAS 23.3 Normal [facility] Comment on above: Performed By: #### L [id number] ####[facility] ([facility])[address] [place] [address] CBCon 12-05-2022 Erythrocyte distribution width (RBC) [Ratio] 14.3 % Normal 11.5-15.0 [facility] Comment on above: Performed By: #### L [id number] ####[facility] ([facility] [address] ERYTHROCYTE MEAN CORPUSCULAR HEMOGLOBIN CONCENTRATION (G/DL) BY AUTOMATED 33.5 g/dL Normal 32.0-35.0 [facility] Comment on above: Performed By: #### L [id number] ####[facility] ([facility] [place] [address] Hematocrit (Bld) [Volume fraction] 39.4 % Normal 39.0-55.0 [facility] Comment on above: Performed By: #### L [id number] ####[facility] (BEAKER)[address] [address] Hemoglobin (Bld) [Mass/Vol] 13.2 g/dL Normal 13.0-17.0 [facility] Comment on above: Performed By: #### L [id number] ####[facility] (BEAKER)[address] [address] IMMATURE PLATELET FRACTION % 2.2 % Normal 0.8-6.3 [facility] Comment on above: Performed By: #### L [id number] ####[facility] ([facility] [place] [address] MCH (RBC) [Entitic mass] 29.7 pg Normal 27.0-33.0 [facility] Comment on above: Performed By: #### L [id number] ####[facility] ([facility])[address] [place] [address] MCV (RBC) [Entitic vol] 88.5 fL Normal 82.0-98.0 [facility] Comment on above: Performed By: #### L [id number] ####[facility] ([facility])[address] [place] [address] PLATELETS (10*3/UL) IN BLOOD AUTOMATED COUNT 132 10*3/uL Low 150-400 [facility] Comment on above: Performed By: #### L [id number] ####[facility] ([facility])[address] [place] [address] RBC (Bld) [#/Vol] 4.45 10*6/uL Normal 4.20-5.70 [facility] Comment on above: Performed By: #### L [id number] ####[facility] ([facility])[address] [address] WBC (Bld) [#/Vol] 6.95 10*3/uL Normal 4.00-10.60 [facility] Comment on above: Performed By: #### L [id number] ####[facility] ([facility] [address] DSon 12-05-2022 DS Normal [facility] POCT GLUCOSE METER UNSOLICIT ED RESULTSon 12-05-2022 Glucose [Mass/Vol] 147 mg/dL High 70-105 [facility] Comment on above: Order Comment: Waive d Testing in the ED is performed under the ED CLIA certificate #[id number]. Result Comment: [email or web address] Performed By: #### L [id number] ####[facility] ([facility])[address] [place] [address] Glucose [Mass/Vol] 185 mg/dL High 70-105 [facility] Comment on above: Order Comment: Waive d Testing in the ED is performed under the ED CLIA certificate #[id number]. Result Comment: [email or web address] Performed By: #### L [id number] ####[facility] ([facility])[address] [place] [address] Glucose [Mass/Vol] 153 mg/dL High 70-105 [facility] Comment on above: Order Comment: Waive d Testing in the ED is performed under the ED CLIA certificate #[id number]. Result Comment: [email or web address] Performed By: #### L [id number] ####[facility] ([facility])[address] [place] [address] 30on 12-04-2022 30 The patient is Moderately Stable - Low risk of patient condition declining or worsening The patient's goals for the shift include comfort The clinical goals for the shift include stable vitals Normal [facility] 30 Normal [facility] 30 The patient is Moderately Stable - Low risk of patient condition declining or worsening The patient's goals for the shift include Comfort The clinical goals for the shift include VSS Normal [facility] BASIC METABOLIC PANELon 10-2 Anion gap [Moles/Vol] 11 mmol/L Normal 7-20 [facility] Comment on above: Performed By: #### L [id number] ####[facility] ([facility])[address] [place] [address] Calcium [Mass/Vol] 8.9 mg/dL Normal 8.6-10.3 [facility] Comment on above: Performed By: #### L [id number] ####[facility] ([facility])[address] [place] [address] Chloride [Moles/Vol] 105 mmol/L Normal 98-107 [facility] Comment on above: Performed By: #### L [id number] ####[facility] ([facility])[address] [place] [address] CO2 [Moles/Vol] 23 mmol/L Normal 21-31 [facility] Comment on above: Performed By: #### L [id number] ####[facility] ([facility])[address] [place] [address] Creatinine [Mass/Vol] 1.32 mg/dL High 0.70-1.30 [facility] Comment on above: Performed By: #### L [id number] ####[facility] ([facility])[address] [place] [address] GLOMERULAR FILTRATION RATE ML/MIN/1.73 SQ M.PREDICTED 58.0 mL/min/1.73m*2 Low >60.0 [facility] Comment on above: Result Comment: [facility]???s estimated glomerular filtration rate (eGFR) will [...] of individuals. Performed By: #### L [id number] ####[facility] ([facility])[address] [place] [address] Glucose [Mass/Vol] 144 mg/dL High 70-100 [facility] Comment on above: Performed By: #### L [id number] ####[facility] ([facility])[address] [place] [address] Potassium [Moles/Vol] 4.5 mmol/L Normal 3.5-5.1 [facility] Comment on above: Performed By: #### L [id number] ####[facility] ([facility])[address] [place] [address] Sodium [Moles/Vol] 134 mmol/L Low 136-145 [facility] Comment on above: Performed By: #### L [id number] ####[facility] (BEAKER)[address] [place] [address] Urea nitrogen [Mass/Vol] 37 mg/dL High 7-25 [facility] Comment on above: Performed By: #### L [id number] ####[facility] (BEAKER)[address] [place] [address] UREA NITROGEN/CREATININE (MASS RATIO) IN SER/PLAS 28.0 Normal [facility] Comment on above: Performed By: #### L [id number] ####[facility] ([facility] [address] CBCon 12-04-2022 Erythrocyte distribution width (RBC) [Ratio] 14.9 % Normal 11.5-15.0 [facility] Comment on above: Performed By: #### L [id number] ####[facility] ([facility] [place] [address] ERYTHROCYTE MEAN CORPUSCULAR HEMOGLOBIN CONCENTRATION (G/DL) BY AUTOMATED 32.6 g/dL Normal 32.0-35.0 [facility] Comment on above: Performed By: #### L [id number] ####[facility] ([facility] [place] [address] Hematocrit (Bld) [Volume fraction] 39.0 % Normal 39.0-55.0 [facility] Comment on above: Performed By: #### L [id number] ####[facility] ([facility] [address] Hemoglobin (Bld) [Mass/Vol] 12.7 g/dL Low 13.0-17.0 [facility] Comment on above: Performed By: #### L [id number] ####[facility] (BEAKER)[address] [address] IMMATURE PLATELET FRACTION % 3.8 % Normal 0.8-6.3 [facility] Comment on above: Performed By: #### L [id number] ####[facility] (BEAKER)[address] [place] [address] MCH (RBC) [Entitic mass] 29.6 pg Normal 27.0-33.0 [facility] Comment on above: Performed By: #### L [id number] ####[facility] ([facility])[address] [place] [address] MCV (RBC) [Entitic vol] 90.9 fL Normal 82.0-98.0 [facility] Comment on above: Performed By: #### L [id number] ####[facility] ([facility])[address] [place] [address] PLATELETS (10*3/UL) IN BLOOD AUTOMATED COUNT 130 10*3/uL Low 150-400 [facility] Comment on above: Performed By: #### L [id number] ####[facility] ([facility])[address] [place] [address] RBC (Bld) [#/Vol] 4.29 10*6/uL Normal 4.20-5.70 [facility] Comment on above: Performed By: #### L [id number] ####[facility] ([facility])[address] [place] [address] WBC (Bld) [#/Vol] 6.97 10*3/uL Normal 4.00-10.60 [facility] Comment on above: Performed By: #### L [id number] ####[facility] ([facility])[address] [place] [address] POCT GLUCOSE METER UNSOLICIT ED RESULTSon 12-04-2022 Glucose [Mass/Vol] 167 mg/dL High 70-105 [facility] Comment on above: Order Comment: Waive d Testing in the ED is performed under the ED CLIA certificate #[id number]. Result Comment: [email or web address] Performed By: #### L [id number] ####[facility] ([facility])[address] [place] [address] Glucose [Mass/Vol] 105 mg/dL Normal 70-105 [facility] Comment on above: Order Comment: Waive d Testing in the ED is performed under the ED CLIA certificate #[id number]. Result Comment: [email or web address] Performed By: #### L [id number] ####[facility] ([employer])[address] [place] [address] Glucose [Mass/Vol] 152 mg/dL High 70-105 [facility] Comment on above: Order Comment: Waive d Testing in the ED is performed under the ED CLIA certificate #[id number]. Result Comment: [email or web address] Performed By: #### L [id number] ####[facility] (BEAKER)[address] [place] [address] 30on 12-03-2022 30 The patient is Moderately Stable - Low risk of patient condition declining or worsening The patient's goals for the shift include comfort The clinical goals for the shift include stable vitals Normal [facility] 30 The patient is Moderately Stable - Low risk of patient condition declining or worsening The patient's goals for the shift include Comfort The clinical goals for the shift include VSS Normal [facility] ANESon 12-03-2022 ANES Normal [facility] ANES Normal [facility] Anesthesiaon 12-03-2022 Anesthesia [id number] Lakia Rodriguez 1950 M Date Provider Department [place] 12/03/2022 LONG REBOLLEDO [facility] OR MD Medical C No family history on file Normal [facility] BASIC METABOLIC PANELon 10- Anion gap [Moles/Vol] 12 mmol/L Normal 7-20 [facility] Comment on above: Performed By: #### L [id number] ####[facility] (BEAKER)[address] [place] [address] Calcium [Mass/Vol] 9.6 mg/dL Normal 8.6-10.3 [facility] Comment on above: Performed By: #### L [id number] ####[facility] (BEAKER)[address] [place] [address] Chloride [Moles/Vol] 101 mmol/L Normal 98-107 [facility] Comment on above: Performed By: #### L [id number] ####[facility] ([facility] [place] [address] CO2 [Moles/Vol] 21 mmol/L Normal 21-31 [facility] Comment on above: Performed By: #### L [id number] ####[facility] ([facility])[address] [place] [address] Creatinine [Mass/Vol] 1.78 mg/dL High 0.70-1.30 [facility] Comment on above: Performed By: #### L [id number] ####[facility] ([facility])[address] [place] [address] GLOMERULAR FILTRATION RATE ML/MIN/1.73 SQ M.PREDICTED 40.5 mL/min/1.73m*2 Low >60.0 [facility] Comment on above: Result Comment: [facility]???s estimated glomerular filtration rate (eGFR) will [...] of individuals. Performed By: #### L [id number] ####[facility] ([facility] [place] [address] Glucose [Mass/Vol] 194 mg/dL High 70-100 [facility] Comment on above: Performed By: #### L [id number] ####[facility] ([facility] [place] [address] Potassium [Moles/Vol] 4.3 mmol/L Normal 3.5-5.1 [facility] Comment on above: Performed By: #### L [id number] ####[facility] ([facility] [place] [address] Sodium [Moles/Vol] 130 mmol/L Low 136-145 [facility] Comment on above: Performed By: #### L [id number] ####[facility] ([facility] [place] [address] Urea nitrogen [Mass/Vol] 47 mg/dL High 7-25 [facility] Comment on above: Performed By: #### L [id number] ####[facility] ([facility] [place] [address] UREA NITROGEN/CREATININE (MASS RATIO) IN SER/PLAS 26.4 Normal [facility] Comment on above: Performed By: #### L [id number] ####[facility] ([facility] [place] [address] CBCon 12-03-2022 Erythrocyte distribution width (RBC) [Ratio] 14.9 % Normal 11.5-15.0 [facility] Comment on above: Performed By: #### L [id number] ####[facility] ([facility] [place] [address] ERYTHROCYTE MEAN CORPUSCULAR HEMOGLOBIN CONCENTRATION (G/DL) BY AUTOMATED 32.9 g/dL Normal 32.0-35.0 [facility] Comment on above: Performed By: #### L [id number] ####[facility] ([facility] [place] [address] Hematocrit (Bld) [Volume fraction] 41.0 % Normal 39.0-55.0 [facility] Comment on above: Performed By: #### L [id number] ####[facility] (BEAKER)[address] [place] [address] Hemoglobin (Bld) [Mass/Vol] 13.5 g/dL Normal 13.0-17.0 [facility] Comment on above: Performed By: #### L [id number] ####[facility] (BEAKER)[address] [place] [address] MCH (RBC) [Entitic mass] 29.3 pg Normal 27.0-33.0 [facility] Comment on above: Performed By: #### L [id number] ####[facility] ([facility])[address] [place] [address] MCV (RBC) [Entitic vol] 89.1 fL Normal 82.0-98.0 [facility] Comment on above: Performed By: #### L [id number] ####[facility] ([facility])[address] [place] [address] PLATELETS (10*3/UL) IN BLOOD AUTOMATED COUNT 134 10*3/uL Low 150-400 [facility] Comment on above: Performed By: #### L [id number] ####[facility] ([facility])[address] [place] [address] RBC (Bld) [#/Vol] 4.60 10*6/uL Normal 4.20-5.70 [facility] Comment on above: Performed By: #### L [id number] ####[facility] ([facility])[address] [place] [address] WBC (Bld) [#/Vol] 10.62 10*3/uL High 4.00-10.60 [facility] Comment on above: Performed By: #### L [id number] ####[facility] ([facility])[address] [place] [address] CONSULTon 12-03-2022 CONSULT [facility] HPon 12-03-2022 HP Normal [facility] NURSNOTEon 12-03-2022 NURSNOTE Report called to Shalini RN 3AB Amy Valiente PRESIDENT AND CHIEF OPERATING OFFICER [facility] POCT GLUCOSE METER UNSOLICIT ED RESULTSon 12-03-2022 Glucose [Mass/Vol] 147 mg/dL High 70-105 [facility] Comment on above: Order Comment: Waive d Testing in the ED is performed under the ED CLIA certificate #[id number]. Result Comment: [email or web address] Performed By: #### L [id number] ####[facility] (BEAKER)[address] [place] [address] Glucose [Mass/Vol] 148 mg/dL High 70-105 [facility] Comment on above: Order Comment: Waive d Testing in the ED is performed under the ED CLIA certificate #[id number]. Result Comment: [email or web address] Performed By: #### L [id number] ####[facility] ([facility])[address] [place] [address] Glucose [Mass/Vol] 165 mg/dL High 70-105 [facility] Comment on above: Order Comment: Waive d Testing in the ED is performed under the ED CLIA certificate #[id number]. Result Comment: [email or web address] Performed By: #### L [id number] ####[facility] ([facility])[address] [place] [address] Glucose [Mass/Vol] 158 mg/dL High 70-105 [facility] Comment on above: Order Comment: Waive d Testing in the ED is performed under the ED CLIA certificate #[id number]. Result Comment: [email or web address] Performed By: #### L [id number] ####[facility] ([facility])[address] [place] [address] TYPE AND SCREENon 12-03-2022 AB SCREEN Negative [facility] Comment on above: Performed By: #### L [id number] ####[facility] B[facility], ABO group Nom (Bld) AB Normal [facility] Comment on above: Performed By: #### L [id number] ####[facility], RH TYPE IN BLOOD Positive Normal [facility] Comment on above: Performed By: #### L [id number] ####[facility], 30on 12-02-2022 30 Normal [facility] 30 Normal [facility] BASIC METABOLIC PANELon 11-12 Anion gap [Moles/Vol] 11 mmol/L Normal 7-20 [facility] Comment on above: Performed By: #### L [id number] ####[facility] [facility] [place] [address] Calcium [Mass/Vol] 9.6 mg/dL Normal 8.6-10.3 [facility] Comment on above: Performed By: #### L [id number] ####[facility] ([facility] [place] [address] Chloride [Moles/Vol] 103 mmol/L Normal 98-107 [facility] Comment on above: Performed By: #### L [id number] ####[facility] [place] [address] CO2 [Moles/Vol] 22 mmol/L Normal 21-31 [facility] Comment on above: Performed By: #### L [id number] ####[facility] ([facility] [place] [address] Creatinine [Mass/Vol] 1.73 mg/dL High 0.70-1.30 [facility] Comment on above: Performed By: #### L [id number] ####[facility] ([facility])[address] [place] [address] GLOMERULAR FILTRATION RATE ML/MIN/1.73 SQ M.PREDICTED 41.9 mL/min/1.73m*2 Low >60.0 [facility] Comment on above: Result Comment: [facility]???s estimated glomerular filtration rate (eGFR) will [...] of individuals. Performed By: #### L [id number] ####[facility] ([facility] [place] [address] Glucose [Mass/Vol] 168 mg/dL High 70-100 [facility] Comment on above: Performed By: #### L [id number] ####[facility])[address] [place] [address] Potassium [Moles/Vol] 4.3 mmol/L Normal 3.5-5.[address] [facility] Comment on above: Performed By: #### L [id number] ####[facility] ([facility])[address] [place] [address] Sodium [Moles/Vol] 132 mmol/L Low 136-145 [facility] Comment on above: Performed By: #### L [id number] ####[facility] ([facility])[address] [place] [address] Urea nitrogen [Mass/Vol] 42 mg/dL High 7-25 [facility] Comment on above: Performed By: #### L [id number] ####[facility] ([facility] [place] [address] UREA NITROGEN/CREATININE (MASS RATIO) IN SER/PLAS 24.3 Normal [facility] Comment on above: Performed By: #### L [id number] ####[facility] ([facility])[address] [place] [address] CBCon 12-02-2022 Erythrocyte distribution width (RBC) [Ratio] 15.0 % Normal 11.5-15.0 [facility] Comment on above: Performed By: #### L [id number] ####[facility] ([facility])[address] [place] [address] ERYTHROCYTE MEAN CORPUSCULAR HEMOGLOBIN CONCENTRATION (G/DL) BY AUTOMATED 32.8 g/dL Normal 32.0-35.0 [facility] Comment on above: Performed By: #### L [id number] ####[facility] ([facility] [place] [address] Hematocrit (Bld) [Volume fraction] 40.0 % Normal 39.0-55.0 [facility] Comment on above: Performed By: #### L [id number] ####[facility] ([facility] [place] [address] Hemoglobin (Bld) [Mass/Vol] 13.1 g/dL Normal 13.0-17.0 [facility] Comment on above: Result Comment: Resu lts checked Performed By: #### L [id number] ####[facility] ([facility])[address] [place] [address] MCH (RBC) [Entitic mass] 29.0 pg Normal 27.0-33.0 [facility] Comment on above: Performed By: #### L [id number] ####[facility] ([facility])[address] [place] [address] MCV (RBC) [Entitic vol] 88.7 fL Normal 82.0-98.0 [facility] Comment on above: Performed By: #### L [id number] ####[facility] ([facility])[address] [place] [address] PLATELETS (10*3/UL) IN BLOOD AUTOMATED COUNT 129 10*3/uL Low 150-400 [facility] Comment on above: Performed By: #### L [id number] ####[facility] ([facility])[address] [place] [address] RBC (Bld) [#/Vol] 4.51 10*6/uL Normal 4.20-5.70 [facility] Comment on above: Performed By: #### L [id number] ####[facility] ([facility])[address] [place] [address] WBC (Bld) [#/Vol] 13.62 10*3/uL High 4.00-10.60 [facility] Comment on above: Performed By: #### L [id number] ####[facility] ([facility])[address] [place] [address] POCT GLUCOSE METER UNSOLICIT ED RESULTSon 12-02-2022 Glucose [Mass/Vol] 208 mg/dL High 70-105 [facility] Comment on above: Order Comment: Waive d Testing in the ED is performed under the ED CLIA certificate #[id number]. Result Comment: [email or web address] Performed By: #### L [id number] ####[facility] ([facility])[address] [place] [address] Glucose [Mass/Vol] 224 mg/dL High 70-105 [facility] Comment on above: Order Comment: Waive d Testing in the ED is performed under the ED CLIA certificate #[id number]. Result Comment: [email or web address] Performed By: #### L [id number] ####[facility] ([facility])[address] [place] [address] Glucose [Mass/Vol] 173 mg/dL High 70-105 [facility] Comment on above: Order Comment: Waive d Testing in the ED is performed under the ED CLIA certificate #[id number]. Result Comment: [email or web address] Performed By: #### L [id number] ####[facility] ([facility])[address] [place] [address] Glucose [Mass/Vol] 135 mg/dL High 70-105 [facility] Comment on above: Order Comment: Waive d Testing in the ED is performed under the ED CLIA certificate #[id number]. Result Comment: [email or web address] Performed By: #### L [id number] ####[facility] ([facility])[address] [place] [address] 30on 12-01-2022 30 Normal [facility] APTTon 12-01-2022 ACTIVATED PARTIAL THROMBOPLASTIN TIME IN PPP BY COAGULATION ASSAY 28.0 Seconds Normal 25.0-35.0 [facility] Comment on above: Result Comment: Clin ical significance of the APTT is questionable in the presence of heparin. Performed By: #### L [id number] ####[facility] ([facility])[address] [place] [address] BASIC METABOLIC PANELon 10- Anion gap [Moles/Vol] 16 mmol/L Normal 7-20 [facility] Comment on above: Performed By: #### L [id number] ####[facility] ([facility] [place] [address] Calcium [Mass/Vol] 10.4 mg/dL High 8.6-10.3 [facility] Comment on above: Performed By: #### L [id number] ####[facility])[address] [place] [address] Chloride [Moles/Vol] 101 mmol/L Normal 98-107 [facility] Comment on above: Performed By: #### L [id number] ####[facility] ([facility] [place] [address] CO2 [Moles/Vol] 21 mmol/L Normal 21-31 [facility] Comment on above: Performed By: #### L [id number] ####[facility] ([facility] [place] [address] Creatinine [Mass/Vol] 1.78 mg/dL High 0.70-1.30 [facility] Comment on above: Performed By: #### L [id number] ####[facility] ([facility])[address] [place] [address] GLOMERULAR FILTRATION RATE ML/MIN/1.73 SQ M.PREDICTED 40.5 mL/min/1.73m*2 Low >60.0 [facility] Comment on above: Result Comment: [facility]???s estimated glomerular filtration rate (eGFR) will [...] of individuals. Performed By: #### L [id number] ####[facility] ([facility] [place] [address] Glucose [Mass/Vol] 260 mg/dL High 70-100 [facility] Comment on above: Performed By: #### L [id number] ####[facility])[address] [place] [address] Potassium [Moles/Vol] 5.0 mmol/L Normal 3.5-5.[address] [facility] Comment on above: Performed By: #### L [id number] ####[facility] ([facility])[address] [place] [address] Sodium [Moles/Vol] 133 mmol/L Low 136-145 [facility] Comment on above: Performed By: #### L [id number] ####[facility] ([facility])[address] [place] [address] Urea nitrogen [Mass/Vol] 32 mg/dL High 7-25 [facility] Comment on above: Performed By: #### L [id number] ####[facility] ([facility])[address] [place] [address] UREA NITROGEN/CREATININE (MASS RATIO) IN SER/PLAS 18.0 Normal [facility] Comment on above: Performed By: #### L [id number] ####[facility] ([facility])[address] [place] [address] CBCon 12-01-2022 Erythrocyte distribution width (RBC) [Ratio] 14.7 % Normal 11.5-15.0 [facility] Comment on above: Performed By: #### L [id number] ####[facility] ([facility])[address] [place] [address] ERYTHROCYTE MEAN CORPUSCULAR HEMOGLOBIN CONCENTRATION (G/DL) BY AUTOMATED 33.0 g/dL Normal 32.0-35.0 [facility] Comment on above: Performed By: #### L [id number] ####[facility] ([facility] [place] [address] Hematocrit (Bld) [Volume fraction] 46.6 % Normal 39.0-55.0 [facility] Comment on above: Performed By: #### L [id number] ####[facility] ([facility] [place] [address] Hemoglobin (Bld) [Mass/Vol] 15.4 g/dL Normal 13.0-17.0 [facility] Comment on above: Performed By: #### L [id number] ####[facility] ([facility])[address] [address] MCH (RBC) [Entitic mass] 29.3 pg Normal 27.0-33.0 [facility] Comment on above: Performed By: #### L [id number] ####[facility] ([facility])[address] [place] [address] MCV (RBC) [Entitic vol] 88.8 fL Normal 82.0-98.0 [facility] Comment on above: Performed By: #### L [id number] ####[facility] ([facility])[address] [place] [address] PLATELETS (10*3/UL) IN BLOOD AUTOMATED COUNT 181 10*3/uL Normal 150-400 [facility] Comment on above: Performed By: #### L [id number] ####[facility] ([facility])[address] [place] [address] RBC (Bld) [#/Vol] 5.25 10*6/uL Normal 4.20-5.70 [facility] Comment on above: Performed By: #### L [id number] ####[facility] ([facility])[address] [place] [address] WBC (Bld) [#/Vol] 23.51 10*3/uL High 4.00-10.60 [facility] Comment on above: Performed By: #### L [id number] ####[facility] ([facility])[address] [place] [address] NURSNOTEon 12-01-2022 NURSNOTE Normal [facility] POCT GLUCOSE METER UNSOLICIT ED RESULTSon 12-01-2022 Glucose [Mass/Vol] 204 mg/dL High 70-105 [facility] Comment on above: Order Comment: Waive d Testing in the ED is performed under the ED CLIA certificate #[id number]. Result Comment: [email or web address] Performed By: #### L [id number] ####[facility] ([employer])[address] [place] [place] [address] Glucose [Mass/Vol] 248 mg/dL High 70-105 [facility] Comment on above: Order Comment: Waive d Testing in the ED is performed under the ED CLIA certificate #[id number]. Result Comment: [email or web address] Performed By: #### L [id number] ####[facility] ([employer])[address] [place] [address] Glucose [Mass/Vol] 270 mg/dL High 70-105 [facility] Comment on above: Order Comment: Waive d Testing in the ED is performed under the ED CLIA certificate #[id number]. Result Comment: [email or web address] Performed By: #### L [id number] ####[facility] ([facility])[address] [place] [address] PROTIME-INRon 12-01-2022 INR IN PPP BY COAGULATION ASSAY 1.21 High 0.90-1.10 [facility] Comment on above: Result Comment: ACCC [...] CHEST 1995;[id number]. Performed By: #### L [id number] ####[facility] ([facility] [place] [address] PROTHROMBIN TIME (PT) IN PPP BY COAGULATION ASSAY 15.3 Seconds High 12.3-14.8 [facility] Comment on above: Performed By: #### L [id number] ####[facility] ([facility])[address] [place] [address] 30on 11-30-2022 30 Normal [facility] 30 Normal [facility] BASIC METABOLIC PANELon 11-12 Anion gap [Moles/Vol] 10 mmol/L Normal 7-20 [facility] Comment on above: Performed By: #### L [id number] ####[facility] ([facility])[address] [place] [address] Calcium [Mass/Vol] 7.1 mg/dL Low 8.6-10.3 [facility] Comment on above: Performed By: #### L [id number] ####[facility] ([facility])[address] [place] [address] Chloride [Moles/Vol] 110 mmol/L High 98-107 [facility] Comment on above: Performed By: #### L [id number] ####[facility] ([facility])[address] [place] [address] CO2 [Moles/Vol] 22 mmol/L Normal 21-31 [facility] Comment on above: Performed By: #### L [id number] ####[facility] ([facility])[address] [place] [address] Creatinine [Mass/Vol] 1.25 mg/dL Normal 0.70-1.30 [facility] Comment on above: Performed By: #### L [id number] ####[facility] ([facility])[address] [place] [address] GLOMERULAR FILTRATION RATE ML/MIN/1.73 SQ M.PREDICTED 61.9 mL/min/1.73m*2 Normal >60.0 [facility] Comment on above: Result Comment: [facility]???s estimated glomerular filtration rate (eGFR) will [...] of individuals. Performed By: #### L [id number] ####[facility] ([facility])[address] [address] Glucose [Mass/Vol] 211 mg/dL High 70-100 [facility] Comment on above: Performed By: #### L [id number] ####[facility] ([facility])[address] [address] Potassium [Moles/Vol] 3.6 mmol/L Normal 3.5-5.[address] [facility] Comment on above: Performed By: #### L [id number] ####[facility] ([facility])[address] [place] [address] Sodium [Moles/Vol] 138 mmol/L Normal 136-145 [facility] Comment on above: Performed By: #### L [id number] ####[facility] ([facility])[address] [place] [address] Urea nitrogen [Mass/Vol] 17 mg/dL Normal 7-25 [facility] Comment on above: Performed By: #### L [id number] ####[facility] ([facility])[address] [place] [address] UREA NITROGEN/CREATININE (MASS RATIO) IN SER/PLAS 13.6 Normal [facility] Comment on above: Performed By: #### L [id number] ####[facility] ([facility])[address] [place] [address] Anion gap [Moles/Vol] 10 mmol/L Normal 7-20 [facility] Comment on above: Performed By: #### L [id number] ####[facility] ([facility] [place] [address] Calcium [Mass/Vol] 9.5 mg/dL Normal 8.6-10.3 [facility] Comment on above: Performed By: #### L [id number] ####[facility] ([facility] [place] [address] Chloride [Moles/Vol] 102 mmol/L Normal 98-107 [facility] Comment on above: Performed By: #### L [id number] ####[facility] ([facility] [place] [address] CO2 [Moles/Vol] 27 mmol/L Normal 21-31 [facility] Comment on above: Performed By: #### L [id number] ####[facility] ([facility] [place] [address] Creatinine [Mass/Vol] 1.39 mg/dL High 0.70-1.30 [facility] Comment on above: Performed By: #### L [id number] ####[facility] ([facility])[address] [place] [address] GLOMERULAR FILTRATION RATE ML/MIN/1.73 SQ M.PREDICTED 54.5 mL/min/1.73m*2 Low >60.0 [facility] Comment on above: Result Comment: [facility]???s estimated glomerular filtration rate (eGFR) will [...] of individuals. Performed By: #### L [id number] ####[facility] ([facility])[address] [place] [address] Glucose [Mass/Vol] 171 mg/dL High 70-100 [facility] Comment on above: Performed By: #### L [id number] ####[facility] ([facility])[address] [place] [address] Potassium [Moles/Vol] 4.0 mmol/L Normal 3.5-5.[address] [facility] Comment on above: Performed By: #### L [id number] ####[facility] ([facility])[address] [place] [address] Sodium [Moles/Vol] 135 mmol/L Low 136-145 [facility] Comment on above: Performed By: #### L [id number] ####[facility] ([facility])[address] [place] [address] Urea nitrogen [Mass/Vol] 20 mg/dL Normal 7-25 [facility] Comment on above: Performed By: #### L [id number] ####[facility] ([facility])[address] [place] [address] UREA NITROGEN/CREATININE (MASS RATIO) IN SER/PLAS 14.4 Normal [facility] Comment on above: Performed By: #### L [id number] ####[facility] ([facility])[address] [place] [address] CBCon 11-30-2022 Erythrocyte distribution width (RBC) [Ratio] 14.2 % Normal 11.5-15.0 [facility] Comment on above: Performed By: #### L [id number] ####[facility] ([facility])[address] [place] [address] ERYTHROCYTE MEAN CORPUSCULAR HEMOGLOBIN CONCENTRATION (G/DL) BY AUTOMATED 33.3 g/dL Normal 32.0-35.0 [facility] Comment on above: Performed By: #### L [id number] ####[facility] ([facility])[address] [place] [address] Hematocrit (Bld) [Volume fraction] 41.7 % Normal 39.0-55.0 [facility] Comment on above: Performed By: #### L [id number] ####[facility] ([facility])[address] [place] [address] Hemoglobin (Bld) [Mass/Vol] 13.9 g/dL Normal 13.0-17.0 [facility] Comment on above: Performed By: #### L [id number] ####[facility] ([facility])[address] [place] [address] MCH (RBC) [Entitic mass] 29.5 pg Normal 27.0-33.0 [facility] Comment on above: Performed By: #### L [id number] ####[facility] ([facility])[address] [place] [address] MCV (RBC) [Entitic vol] 88.5 fL Normal 82.0-98.0 [facility] Comment on above: Performed By: #### L [id number] ####[facility] ([facility])[address] [place] [address] PLATELETS (10*3/UL) IN BLOOD AUTOMATED COUNT 183 10*3/uL Normal 150-400 [facility] Comment on above: Performed By: #### L [id number] ####[facility] ([facility])[address] [place] [address] RBC (Bld) [#/Vol] 4.71 10*6/uL Normal 4.20-5.70 [facility] Comment on above: Performed By: #### L [id number] ####[facility] ([facility])[address] [place] [address] WBC (Bld) [#/Vol] 8.24 10*3/uL Normal 4.00-10.60 [facility] Comment on above: Performed By: #### L [id number] ####[facility] ([facility] [place] [address] CBC WITH AUTO DIFFERENTIALon 11-30-2022 Basophils (Bld) [#/Vol] 0.02 10*3/uL Normal 0.00-0.20 [facility] Comment on above: Performed By: #### L [id number] ####[facility] ([facility])[address] [place] [address] Basophils/100 WBC (Bld) 0.2 % Normal 0.0-1.0 [facility] Comment on above: Performed By: #### L [id number] ####[facility] ([facility])[address] [place] [address] Eosinophils (Bld) [#/Vol] 0.11 10*3/uL Normal 0.00-0.50 [facility] Comment on above: Performed By: #### L [id number] ####[facility] ([facility])[address] [place] [address] Eosinophils/100 WBC (Bld) 1.2 % Normal 0.0-6.0 [facility] Comment on above: Performed By: #### L [id number] ####[facility] ([facility])[address] [place] [address] Erythrocyte distribution width (RBC) [Ratio] 14.5 % Normal 11.5-15.0 [facility] Comment on above: Performed By: #### L [id number] ####[facility] ([facility])[address] [place] [address] ERYTHROCYTE MEAN CORPUSCULAR HEMOGLOBIN CONCENTRATION (G/DL) BY AUTOMATED 33.1 g/dL Normal 32.0-35.0 [facility] Comment on above: Performed By: #### L [id number] ####[facility] ([facility])[address] [place] [address] Hematocrit (Bld) [Volume fraction] 37.2 % Low 39.0-55.0 [facility] Comment on above: Performed By: #### L [id number] ####[facility] ([facility])[address] [place] [address] Hemoglobin (Bld) [Mass/Vol] 12.3 g/dL Low 13.0-17.0 [facility] Comment on above: Performed By: #### L [id number] ####[facility] ([facility])[address] [place] [address] Immature granulocytes (Bld) [#/Vol] 0.06 10*3/uL Normal 0.00-0.20 [facility] Comment on above: Performed By: #### L [id number] ####[facility] ([facility])[address] [place] [address] Immature granulocytes/100 WBC (Bld) 0.6 % Normal 0.0-1.0 [facility] Comment on above: Performed By: #### L [id number] ####[facility] ([facility])[address] [place] [address] Lymphocytes (Bld) [#/Vol] 0.97 10*3/uL Low 1.20-4.00 [facility] Comment on above: Performed By: #### L [id number] ####[facility] ([facility])[address] [place] [address] Lymphocytes/100 WBC (Bld) 10.3 % Low 20.0-45.0 [facility] Comment on above: Performed By: #### L [id number] ####[facility] ([facility])[address] [place] [address] MCH (RBC) [Entitic mass] 29.5 pg Normal 27.0-33.0 [facility] Comment on above: Performed By: #### L [id number] ####[facility] ([facility] [place] [address] MCV (RBC) [Entitic vol] 89.2 fL Normal 82.0-98.0 [facility] Comment on above: Performed By: #### L [id number] ####[facility] ([facility] [place] [address] Monocytes (Bld) [#/Vol] 0.78 10*3/uL Normal 0.10-1.00 [facility] Comment on above: Performed By: #### L [id number] ####[facility] ([facility])[address] [place] [address] Monocytes/100 WBC (Bld) 8.3 % Normal 5.0-12.0 [facility] Comment on above: Performed By: #### L [id number] ####[facility] ([facility])[address] [place] [address] Neutrophils (Bld) [#/Vol] 7.48 10*3/uL Normal 1.60-7.60 [facility] Comment on above: Performed By: #### L [id number] ####[facility] ([facility])[address] [place] [address] Neutrophils/100 WBC (Bld) 79.4 % High 40.0-72.0 [facility] Comment on above: Performed By: #### L [id number] ####[facility] ([facility] [place], [place] [address] NRBC (PER 100 WBCS) BY AUTOMATED COUNT 0.0 % Normal 0 [facility] Comment on above: Performed By: #### L [id number] ####[facility] ([facility])[address], [place] [address] PLATELETS (10*3/UL) IN BLOOD AUTOMATED COUNT 172 10*3/uL Normal 150-400 [facility] Comment on above: Performed By: #### L [id number] ####[facility] ([facility])[address] [place] [address] RBC (Bld) [#/Vol] 4.17 10*6/uL Low 4.20-5.70 [facility] Comment on above: Performed By: #### L [id number] ####[facility] ([facility])[address] [place] [address] WBC (Bld) [#/Vol] 9.42 10*3/uL Normal 4.00-10.60 [facility] Comment on above: Performed By: #### L [id number] ####[facility] ([facility] [place] [address] CTA ABDOMEN PELVIS W AND/OR WO IV CONTRASTon 11-30-2022 CTA ABDOMEN PELVIS W AND/OR WO IV CONTRAST Normal [facility] CTA CHEST W AND/OR WO IV CON TRASTon 11-30-2022 CTA CHEST W AND/OR WO IV CONTRAST Normal [facility] DSon 11-30-2022 DS This report has been cancelled. Normal [facility] NURSNOTEon 11-30-2022 NURSNOTE Normal [facility] NURSNOTE Normal [facility] POCT GLUCOSE METER UNSOLICIT ED RESULTSon 11-30-2022 Glucose [Mass/Vol] 228 mg/dL High 70-105 [facility] Comment on above: Order Comment: Waive d Testing in the ED is performed under the ED CLIA certificate #[id number]. Result Comment: [email or web address] Performed By: #### L [id number] ####[facility] ([employer])[address] [address] Glucose [Mass/Vol] 228 mg/dL High 70-105 [facility] Comment on above: Order Comment: Waive d Testing in the ED is performed under the ED CLIA certificate #[id number]. Result Comment: [email or web address] Performed By: #### L [id number] ####[facility] ([employer])[address] [place] [address] Glucose [Mass/Vol] 219 mg/dL High 70-105 [facility] Comment on above: Order Comment: Waive d Testing in the ED is performed under the ED CLIA certificate #[id number]. Result Comment: [email or web address] Performed By: #### L [id number] ####[facility] ([employer])[address] [place] [address] Glucose [Mass/Vol] 186 mg/dL High 70-105 [facility] Comment on above: Order Comment: Waive d Testing in the ED is performed under the ED CLIA certificate #[id number]. Result Comment: [email or web address] Performed By: #### L [id number] ####[facility] ([facility])[address] [place] [address] Glucose [Mass/Vol] 217 mg/dL High 70-105 [facility] Comment on above: Order Comment: Waive d Testing in the ED is performed under the ED CLIA certificate #[id number]. Result Comment: [email or web address] Performed By: #### L [id number] ####[facility] ([facility])[address] [place] [address] Glucose [Mass/Vol] 175 mg/dL High 70-105 [facility] Comment on above: Order Comment: Waive d Testing in the ED is performed under the ED CLIA certificate #[id number]. Result Comment: [email or web address] Performed By: #### L [id number] ####[facility] ([facility])[address] [place] [address] TROPONIN Ion 11-30-2022 Troponin I.cardiac [Mass/Vol] 0.05 ng/mL High 0.00-0.04 [facility] Comment on above: Performed By: #### L [id number] ####[facility] ([facility])[address] [place] [address] 30on 11-29-2022 30 Normal [facility] 30 Normal [facility] 30 Normal [facility] ANESon 11-29-2022 ANES Normal [facility] ANTI-XA (HEPARIN LEVEL)on HEPARIN UNFRACTIONATED (U/ML) IN PPP BY CHROMOGENIC METHOD 0.42 IU/mL Normal 0.3-0.7 [facility] Comment on above: Result Comment: Maricruz roxaban and Apixaban will interfere with the anti Xa assay used to monitor UFH and LMWH. Performed By: #### L [id number] ####[facility] ([facility])[address] [place] [address] HEPARIN UNFRACTIONATED (U/ML) IN PPP BY CHROMOGENIC METHOD 0.74 IU/mL High 0.3-0.7 [facility] Comment on above: Result Comment: Maricruz roxaban and Apixaban will interfere with the anti Xa assay used to monitor UFH and LMWH. Performed By: #### L [id number] ####[facility] ([facility] [place] [address] BASIC METABOLIC PANELon 11-11 Anion gap [Moles/Vol] 9 mmol/L Normal 7-20 [facility] Comment on above: Performed By: #### L [id number] ####[facility] ([facility])[address] [place] [address] Calcium [Mass/Vol] 9.5 mg/dL Normal 8.6-10.3 [facility] Comment on above: Performed By: #### L [id number] ####[facility] ([facility])[address] [place] [address] Chloride [Moles/Vol] 103 mmol/L Normal 98-107 [facility] Comment on above: Performed By: #### L [id number] ####[facility] ([facility])[address] [place] [address] CO2 [Moles/Vol] 28 mmol/L Normal 21-31 [facility] Comment on above: Performed By: #### L [id number] ####[facility] ([facility] [place] [address] Creatinine [Mass/Vol] 1.44 mg/dL High 0.70-1.30 [facility] Comment on above: Performed By: #### L [id number] ####[facility] ([facility])[address] [place] [address] GLOMERULAR FILTRATION RATE ML/MIN/1.73 SQ M.PREDICTED 52.3 mL/min/1.73m*2 Low >60.0 [facility] Comment on above: Result Comment: [facility]???s estimated glomerular filtration rate (eGFR) will [...] of individuals. Performed By: #### L [id number] ####[facility] ([facility])[address] [place] [address] Glucose [Mass/Vol] 178 mg/dL High 70-100 [facility] Comment on above: Performed By: #### L [id number] ####[facility] ([facility])[address] [place] [address] Potassium [Moles/Vol] 4.1 mmol/L Normal 3.5-5.1 [facility] Comment on above: Performed By: #### L [id number] ####[facility] ([facility])[address] [place] [address] Sodium [Moles/Vol] 136 mmol/L Normal 136-145 [facility] Comment on above: Performed By: #### L [id number] ####[facility] ([facility])[address] [place] [address] Urea nitrogen [Mass/Vol] 17 mg/dL Normal 7-25 [facility] Comment on above: Performed By: #### L [id number] ####[facility] ([facility])[address] [place] [address] UREA NITROGEN/CREATININE (MASS RATIO) IN SER/PLAS 11.8 Normal [facility] Comment on above: Performed By: #### L [id number] ####[facility] ([facility]AKER)[address] [place] [address] CBCon 11-29-2022 Erythrocyte distribution width (RBC) [Ratio] 14.4 % Normal 11.5-15.0 [facility] Comment on above: Performed By: #### L [id number] ####[facility] ([facility])[address] [place] [address] ERYTHROCYTE MEAN CORPUSCULAR HEMOGLOBIN CONCENTRATION (G/DL) BY AUTOMATED 34.0 g/dL Normal 32.0-35.0 [facility] Comment on above: Performed By: #### L [id number] ####[facility] ([facility])[address] [place] [address] Hematocrit (Bld) [Volume fraction] 41.5 % Normal 39.0-55.0 [facility] Comment on above: Performed By: #### L [id number] ####[facility] ([facility])[address] [place] [address] Hemoglobin (Bld) [Mass/Vol] 14.1 g/dL Normal 13.0-17.0 [facility] Comment on above: Performed By: #### L [id number] ####[facility] ([facility])[address] [place] [address] MCH (RBC) [Entitic mass] 29.6 pg Normal 27.0-33.0 [facility] Comment on above: Performed By: #### L [id number] ####[facility] ([facility])[address] [place] [address] MCV (RBC) [Entitic vol] 87.2 fL Normal 82.0-98.0 [facility] Comment on above: Performed By: #### L [id number] ####[facility] ([facility])[address] [place] [address] PLATELETS (10*3/UL) IN BLOOD AUTOMATED COUNT 180 10*3/uL Normal 150-400 [facility] Comment on above: Performed By: #### L [id number] ####[facility] ([facility])[address] [place] [address] RBC (Bld) [#/Vol] 4.76 10*6/uL Normal 4.20-5.70 [facility] Comment on above: Performed By: #### L [id number] ####[facility] ([facility])[address] [place] [address] WBC (Bld) [#/Vol] 6.10 10*3/uL Normal 4.00-10.60 [facility] Comment on above: Performed By: #### L [id number] ####[facility] ([facility])[address] [place] [address] CONSULTon 11-29-2022 CONSULT [facility] HPon 11-29-2022 HP H&P reviewed. The patient was examined and there are no changes to the H&P. [facility] POCT GLUCOSE METER UNSOLICIT ED RESULTSon 11-29-2022 Glucose [Mass/Vol] 168 mg/dL High 70-105 [facility] Comment on above: Order Comment: Waive d Testing in the ED is performed under the ED CLIA certificate #[id number]. Result Comment: [email or web address] Performed By: #### L [id number] ####[facility] ([facility])[address] [place] [address] Glucose [Mass/Vol] 122 mg/dL High 70-105 [facility] Comment on above: Order Comment: Waive d Testing in the ED is performed under the ED CLIA certificate #[id number]. Result Comment: [email or web address] Performed By: #### L [id number] ####[facility] ([employer])[address] [place] [address] Glucose [Mass/Vol] 144 mg/dL High 70-105 [facility] Comment on above: Order Comment: Waive d Testing in the ED is performed under the ED CLIA certificate #[id number]. Result Comment: [email or web address] Performed By: #### L [id number] ####[facility] ([employer])[address] [place] [address] Glucose [Mass/Vol] 157 mg/dL High 70-105 [facility] Comment on above: Order Comment: Waive d Testing in the ED is performed under the ED CLIA certificate #[id number]. Result Comment: [email or web address] Performed By: #### L [id number] ####[facility] ([facility])[address] [place] [address] 30on 11-28-2022 30 Normal [facility] 30 Normal [facility] 30 Normal [facility] ANTI-XA (HEPARIN LEVEL)on HEPARIN UNFRACTIONATED (U/ML) IN PPP BY CHROMOGENIC METHOD 0.47 IU/mL Normal 0.3-0.7 [facility] Comment on above: Result Comment: Maricruz roxaban and Apixaban will interfere with the anti Xa assay used to monitor UFH and LMWH. Performed By: #### L [id number] ####[facility] ([facility]ER)[address] [place] [address] HEPARIN UNFRACTIONATED (U/ML) IN PPP BY CHROMOGENIC METHOD 0.40 IU/mL Normal 0.3-0.7 [facility] Comment on above: Result Comment: Maricruz roxaban and Apixaban will interfere with the anti Xa assay used to monitor UFH and LMWH. Performed By: #### L [id number] ####[facility] ([facility])[address] [place] [address] HEPARIN UNFRACTIONATED (U/ML) IN PPP BY CHROMOGENIC METHOD 0.23 IU/mL Low 0.3-0.7 [facility] Comment on above: Result Comment: Maricruz roxaban and Apixaban will interfere with the anti Xa assay used to monitor UFH and LMWH. Performed By: #### L [id number] ####[facility] ([facility] [place] [address] BASIC METABOLIC PANELon 11-11 Anion gap [Moles/Vol] 10 mmol/L Normal 7-20 [facility] Comment on above: Performed By: #### L [id number] ####[facility] ([facility] [place] [address] Calcium [Mass/Vol] 8.9 mg/dL Normal 8.6-10.3 [facility] Comment on above: Performed By: #### L [id number] ####[facility] ([facility] [place] [address] Chloride [Moles/Vol] 105 mmol/L Normal 98-107 [facility] Comment on above: Performed By: #### L [id number] ####[facility] ([facility])[address] [place] [address] CO2 [Moles/Vol] 25 mmol/L Normal 21-31 [facility] Comment on above: Performed By: #### L [id number] ####[facility] ([facility])[address] [place] [address] Creatinine [Mass/Vol] 1.22 mg/dL Normal 0.70-1.30 [facility] Comment on above: Performed By: #### L [id number] ####[facility] ([facility])[address] [place] [address] GLOMERULAR FILTRATION RATE ML/MIN/1.73 SQ M.PREDICTED 63.8 mL/min/1.73m*2 Normal >60.0 [facility] Comment on above: Result Comment: [facility]???s estimated glomerular filtration rate (eGFR) will [...] of individuals. Performed By: #### L [id number] ####[facility] ([facility])[address] [place] [address] Glucose [Mass/Vol] 153 mg/dL High 70-100 [facility] Comment on above: Performed By: #### L [id number] ####[facility] ([facility])[address] [place] [address] Potassium [Moles/Vol] 3.8 mmol/L Normal 3.5-5.1 [facility] Comment on above: Performed By: #### L [id number] ####[facility] ([facility]ER)[address] [place] [address] Sodium [Moles/Vol] 136 mmol/L Normal 136-145 [facility] Comment on above: Performed By: #### L [id number] ####[facility] ([facility])[address] [place] [address] Urea nitrogen [Mass/Vol] 14 mg/dL Normal 7-25 [facility] Comment on above: Performed By: #### L [id number] ####[facility] ([facility])[address] [place] [address] UREA NITROGEN/CREATININE (MASS RATIO) IN SER/PLAS 11.5 Normal [facility] Comment on above: Performed By: #### L [id number] ####[facility] ([facility])[address] [place] [address] CBCon 11-28-2022 Erythrocyte distribution width (RBC) [Ratio] 14.3 % Normal 11.5-15.0 [facility] Comment on above: Performed By: #### L [id number] ####[facility] ([facility])[address] [place] [address] ERYTHROCYTE MEAN CORPUSCULAR HEMOGLOBIN CONCENTRATION (G/DL) BY AUTOMATED 33.2 g/dL Normal 32.0-35.0 [facility] Comment on above: Performed By: #### L [id number] ####[facility] ([facility] [place] [address] Hematocrit (Bld) [Volume fraction] 40.4 % Normal 39.0-55.0 [facility] Comment on above: Performed By: #### L [id number] ####[facility] ([facility])[address] [place], [place] [address] Hemoglobin (Bld) [Mass/Vol] 13.4 g/dL Normal 13.0-17.0 [facility] Comment on above: Performed By: #### L [id number] ####[facility] ([facility]ER)[address] [place] [address] MCH (RBC) [Entitic mass] 29.3 pg Normal 27.0-33.0 [facility] Comment on above: Performed By: #### L [id number] ####[facility] ([facility])[address] [place] [address] MCV (RBC) [Entitic vol] 88.2 fL Normal 82.0-98.0 [facility] Comment on above: Performed By: #### L [id number] ####[facility] ([facility])[address] [place] [address] PLATELETS (10*3/UL) IN BLOOD AUTOMATED COUNT 194 10*3/uL Normal 150-400 [facility] Comment on above: Performed By: #### L [id number] ####[facility] ([facility])[address] [place] [address] RBC (Bld) [#/Vol] 4.58 10*6/uL Normal 4.20-5.70 [facility] Comment on above: Performed By: #### L [id number] ####[facility] ([facility])[address] [place] [address] WBC (Bld) [#/Vol] 7.10 10*3/uL Normal 4.00-10.60 [facility] Comment on above: Performed By: #### L [id number] ####[facility] ([facility])[address] [place] [address] CONSULTon 11-28-2022 CONSULT Normal [facility] MAGNESIUMon 11-28-2022 Magnesium [Mass/Vol] 1.7 mg/dL Low 1.9-2.7 [facility] Comment on above: Performed By: #### L [id number] ####[facility] ([facility])[address] [place] [address] NURSNOTEon 11-28-2022 NURSNOTE Normal [facility] PHOSPHORUSon 11-28-2022 Magnesium [Mass/Vol] 3.8 mg/dL Normal 2.5-5.0 [facility] Comment on above: Performed By: #### L [id number] ####[facility] ([facility])[address] [place] [address] POCT GLUCOSE METER UNSOLICIT ED RESULTSon 11-28-2022 Glucose [Mass/Vol] 202 mg/dL High 70-105 [facility] Comment on above: Order Comment: Waive d Testing in the ED is performed under the ED CLIA certificate #[id number]. Result Comment: [email or web address] Performed By: #### L [id number] ####[facility] ([facility] [place] [address] Glucose [Mass/Vol] 110 mg/dL High 70-105 [facility] Comment on above: Order Comment: Waive d Testing in the ED is performed under the ED CLIA certificate #[id number]. Result Comment: [email or web address] Performed By: #### L [id number] ####[facility] ([facility])[address] [place] [address] Glucose [Mass/Vol] 190 mg/dL High 70-105 [facility] Comment on above: Order Comment: Waive d Testing in the ED is performed under the ED CLIA certificate #[id number]. Result Comment: [email or web address] Performed By: #### L [id number] ####[facility] ([facility])[address] [place] [address] Glucose [Mass/Vol] 147 mg/dL High 70-105 [facility] Comment on above: Order Comment: Waive d Testing in the ED is performed under the ED CLIA certificate #[id number]. Result Comment: [email or web address] Performed By: #### L [id number] ####[facility] ([facility]ER)[address] [place] [address] 30on 11-27-2022 30 [facility] 30 [facility] ANESon 11-27-2022 ANES [facility] ANTI-XA (HEPARIN LEVEL)on HEPARIN UNFRACTIONATED (U/ML) IN PPP BY CHROMOGENIC METHOD 0.10 IU/mL Invalid Interpretation Code 0.3-0.7 [facility] Comment on above: Result Comment: [employer] roxaban and Apixaban will interfere with the anti Xa assay used to monitor UFH and LMWH. Performed By: #### L [id number] ####[facility] ([facility])[address] [place] [address] HEPARIN UNFRACTIONATED (U/ML) IN PPP BY CHROMOGENIC METHOD 0.49 IU/mL Normal 0.3-0.7 [facility] Comment on above: Result Comment: Mar[employer] roxaban and Apixaban will interfere with the anti Xa assay used to monitor UFH and LMWH. Performed By: #### L [id number] ####[facility] ([facility])[address] [place] [address] BASIC METABOLIC PANEL 11-11 Anion gap [Moles/Vol] 9 mmol/L Normal 7-20 [facility] Comment on above: Performed By: #### L [id number] ####[facility] ([facility])[address] [place] [address] Calcium [Mass/Vol] 8.9 mg/dL Normal 8.6-10.3 [facility] Comment on above: Performed By: #### L [id number] ####[facility] ([facility])[address] [place] [address] Chloride [Moles/Vol] 104 mmol/L Normal 98-107 [facility] Comment on above: Performed By: #### L [id number] ####[facility] ([facility] [place] [address] CO2 [Moles/Vol] 25 mmol/L Normal 21-31 [facility] Comment on above: Performed By: #### L [id number] ####[facility] ([facility])[address] [place] [address] Creatinine [Mass/Vol] 1.34 mg/dL High 0.70-1.30 [facility] Comment on above: Performed By: #### L [id number] ####[facility] ([facility])[address] [place] [address] GLOMERULAR FILTRATION RATE ML/MIN/1.73 SQ M.PREDICTED 57.0 mL/min/1.73m*2 Low >60.0 [facility] Comment on above: Result Comment: [facility]???s estimated glomerular filtration rate (eGFR) will [...] of individuals. Performed By: #### L [id number] ####[facility] ([facility])[address] [place] [address] Glucose [Mass/Vol] 210 mg/dL High 70-100 [facility] Comment on above: Performed By: #### L [id number] ####[facility] ([facility])[address] [place] [address] Potassium [Moles/Vol] 4.1 mmol/L Normal 3.5-5.1 [facility] Comment on above: Performed By: #### L [id number] ####[facility] ([facility])[address] [place] [address] Sodium [Moles/Vol] 134 mmol/L Low 136-145 [facility] Comment on above: Performed By: #### L [id number] ####[facility] ([facility])[address] [place] [address] Urea nitrogen [Mass/Vol] 18 mg/dL Normal 7-25 [facility] Comment on above: Performed By: #### L [id number] ####[facility] ([facility])[address] [place] [address] UREA NITROGEN/CREATININE (MASS RATIO) IN SER/PLAS 13.4 Normal [facility] Comment on above: Performed By: #### L [id number] ####[facility] [place] [address] CBCon 11-27-2022 Erythrocyte distribution width (RBC) [Ratio] 14.2 % Normal 11.5-15.0 [facility] Comment on above: Performed By: #### L [id number] ####[facility] ([facility])[address] [place] [address] ERYTHROCYTE MEAN CORPUSCULAR HEMOGLOBIN CONCENTRATION (G/DL) BY AUTOMATED 33.3 g/dL Normal 32.0-35.0 [facility] Comment on above: Performed By: #### L [id number] ####[facility] ([facility])[address] [place] [address] Hematocrit (Bld) [Volume fraction] 41.5 % Normal 39.0-55.0 [facility] Comment on above: Performed By: #### L [id number] ####[facility] ([facility])[address] [place] [address] Hemoglobin (Bld) [Mass/Vol] 13.8 g/dL Normal 13.0-17.0 [facility] Comment on above: Performed By: #### L [id number] ####[facility] ([facility])[address] [place] [address] MCH (RBC) [Entitic mass] 28.9 pg Normal 27.0-33.0 [facility] Comment on above: Performed By: #### L [id number] ####[facility] HOSPITAL LAB ([facility])[address] [place] [address] MCV (RBC) [Entitic vol] 86.8 fL Normal 82.0-98.0 [facility] Comment on above: Performed By: #### L [id number] ####[facility] [place] [address] PLATELETS (10*3/UL) IN BLOOD AUTOMATED COUNT 187 10*3/uL Normal 150-400 [facility] Comment on above: Performed By: #### L [id number] ####[facility] ([facility])[address] [place] [address] RBC (Bld) [#/Vol] 4.78 10*6/uL Normal 4.20-5.70 [facility] Comment on above: Performed By: #### L [id number] ####[facility] ([facility])[address] [place] [address] WBC (Bld) [#/Vol] 6.16 10*3/uL Normal 4.00-10.60 [facility] Comment on above: Performed By: #### L [id number] ####[facility] ([facility])[address] [place] [address] HPon 11-27-2022 HP Normal [facility] MAGNESIUMon 11-27-2022 Magnesium [Mass/Vol] 1.8 mg/dL Low 1.9-2.7 [facility] Comment on above: Performed By: #### L [id number] ####[facility] ([facility])[address] [place] [address] PHOSPHORUSon 11-27-2022 Magnesium [Mass/Vol] 3.4 mg/dL Normal 2.5-5.0 [facility] Comment on above: Performed By: #### L [id number] ####[facility] ([facility])[address] [place] [address] POCT GLUCOSE METER UNSOLICIT ED RESULTSon 11-27-2022 Glucose [Mass/Vol] 393 mg/dL High 70-105 [facility] Comment on above: Order Comment: Waive d Testing in the ED is performed under the ED CLIA certificate #[id number]. Result Comment: crystal philip Performed By: #### L [id number] ####[facility] ([facility])[address] [place] [address] Glucose [Mass/Vol] 142 mg/dL High 70-105 [facility] Comment on above: Order Comment: Waive d Testing in the ED is performed under the ED CLIA certificate #[id number]. Result Comment: [email or web address] yanez Performed By: #### L [id number] ####[facility] ([facility]ER)[address] [place] [place] [address] Glucose [Mass/Vol] 147 mg/dL High 70-105 [facility] Comment on above: Order Comment: Waive d Testing in the ED is performed under the ED CLIA certificate #[id number]. Result Comment: silvia nation Performed By: #### L [id number] ####[facility] ([facility])[address] [place] [place] [address] Glucose [Mass/Vol] 163 mg/dL High 70-105 [facility] Comment on above: Order Comment: Waive d Testing in the ED is performed under the ED CLIA certificate #[id number]. Result Comment: silvia nation Performed By: #### L [id number] ####[facility] ([facility])[address] [place] [place] [address] 30on 11-26-2022 30 Normal [facility] 30 Normal [facility] 30 [facility] ANTI-XA (HEPARIN LEVEL)on HEPARIN UNFRACTIONATED (U/ML) IN PPP BY CHROMOGENIC METHOD 0.50 IU/mL Normal 0.3-0.7 [facility] Comment on above: Result Comment: Pioneer roxaban and Apixaban will interfere with the anti Xa assay used to monitor UFH and LMWH. Performed By: #### L [id number] ####[facility] ([facility])[address] [place] [address] HEPARIN UNFRACTIONATED (U/ML) IN PPP BY CHROMOGENIC METHOD 0.57 IU/mL Normal 0.3-0.7 [facility] Comment on above: Result Comment: Pioneer roxaban and Apixaban will interfere with the anti Xa assay used to monitor UFH and LMWH. Performed By: #### L [id number] ####[facility] ([facility] [place] [address] HEPARIN UNFRACTIONATED (U/ML) IN PPP BY CHROMOGENIC METHOD 0.96 IU/mL Critically high 0.3-0.7 [facility] Comment on above: Result Comment: Pioneer roxaban and Apixaban will interfere with the anti Xa assay used to monitor UFH and LMWH. Performed By: #### L [id number] ####[facility] (BE[facility]ER)[address] [place] [place] [address] HEPARIN UNFRACTIONATED (U/ML) IN PPP BY CHROMOGENIC METHOD 0.68 IU/mL Normal 0.3-0.7 [facility] Comment on above: Order Comment: Check anti-Xa level every 6 hours while on heparin infusion, or per protocol. Result Comment: Pioneer roxaban and Apixaban will interfere with the anti Xa assay used to monitor UFH and LMWH. Performed By: #### L [id number] ####[facility] ([facility])[address] [place] [place] [address] HEPARIN UNFRACTIONATED (U/ML) IN PPP BY CHROMOGENIC METHOD 0.66 IU/mL Normal 0.3-0.7 [facility] Comment on above: Order Comment: Check anti-Xa level every 6 hours while on heparin infusion, or per protocol. Result Comment: Maricruz roxaban and Apixaban will interfere with the anti Xa assay used to monitor UFH and LMWH. Performed By: #### L [id number] ####[facility] ([facility])[address] [place] [address] BASIC METABOLIC PANELon 10 Anion gap [Moles/Vol] 8 mmol/L Normal 7-20 [facility] Comment on above: Performed By: #### L [id number] ####[facility] ([facility]ER)[address] [place] [place] [address] Calcium [Mass/Vol] 8.9 mg/dL Normal 8.6-10.3 [facility] Comment on above: Performed By: #### L [id number] ####[facility] ([facility]ER)[address] [place] [address] Chloride [Moles/Vol] 106 mmol/L Normal 98-107 [facility] Comment on above: Performed By: #### L [id number] ####[facility] (BE[facility]ER)[address] [place] [address] CO2 [Moles/Vol] 26 mmol/L Normal 21-31 [facility] Comment on above: Performed By: #### L [id number] ####[facility] ([facility] [place] [address] Creatinine [Mass/Vol] 1.30 mg/dL Normal 0.70-1.30 [facility] Comment on above: Performed By: #### L [id number] ####[facility] ([facility])[address] [place] [address] GLOMERULAR FILTRATION RATE ML/MIN/1.73 SQ M.PREDICTED 59.1 mL/min/1.73m*2 Low >60.0 [facility] Comment on above: Result Comment: [facility]???s estimated glomerular filtration rate (eGFR) will [...] of individuals. Performed By: #### L [id number] ####[facility] ([facility] [place] [address] Glucose [Mass/Vol] 196 mg/dL High 70-100 [facility] Comment on above: Performed By: #### L [id number] ####[facility] (BEAKER)[address] [place] [address] Potassium [Moles/Vol] 4.2 mmol/L Normal 3.5-5.1 [facility] Comment on above: Performed By: #### L [id number] ####[facility] (BE[facility]ER)[address] [place] [address] Sodium [Moles/Vol] 136 mmol/L Normal 136-145 [facility] Comment on above: Performed By: #### L [id number] ####[facility] ([facility])[address] [place] [address] Urea nitrogen [Mass/Vol] 17 mg/dL Normal 7-25 [facility] Comment on above: Performed By: #### L [id number] ####[facility] ([facility])[address] [place] [address] UREA NITROGEN/CREATININE (MASS RATIO) IN SER/PLAS 13.1 Normal [facility] Comment on above: Performed By: #### L [id number] ####[facility] ([facility])[address] [place] [address] CBC WITH AUTO DIFFERENTIALon 11-26-2022 Basophils (Bld) [#/Vol] 0.03 10*3/uL Normal 0.00-0.20 [facility] Comment on above: Performed By: #### L [id number] ####[facility] ([facility])[address] [place] [address] Basophils/100 WBC (Bld) 0.4 % Normal 0.0-1.0 [facility] Comment on above: Performed By: #### L [id number] ####[facility] ([facility])[address] [place] [address] Eosinophils (Bld) [#/Vol] 0.21 10*3/uL Normal 0.00-0.50 [facility] Comment on above: Performed By: #### L [id number] ####[facility] ([facility])[address] [place] [address] Eosinophils/100 WBC (Bld) 3.1 % Normal 0.0-6.0 [facility] Comment on above: Performed By: #### L [id number] ####[facility] ([facility])[address] [place] [address] Erythrocyte distribution width (RBC) [Ratio] 14.3 % Normal 11.5-15.0 [facility] Comment on above: Performed By: #### L [id number] ####[facility] (BEAKER)[address] [place] [address] ERYTHROCYTE MEAN CORPUSCULAR HEMOGLOBIN CONCENTRATION (G/DL) BY AUTOMATED 33.4 g/dL Normal 32.0-35.0 [facility] Comment on above: Performed By: #### L [id number] ####[facility] (BE[facility]ER)[address] [place] [address] Hematocrit (Bld) [Volume fraction] 42.5 % Normal 39.0-55.0 [facility] Comment on above: Performed By: #### L [id number] ####[facility] (BE[facility]ER)[address] [place] [address] Hemoglobin (Bld) [Mass/Vol] 14.2 g/dL Normal 13.0-17.0 [facility] Comment on above: Performed By: #### L [id number] ####[facility] (BE[facility]ER)[address] [place] [address] Immature granulocytes (Bld) [#/Vol] 0.03 10*3/uL Normal 0.00-0.20 [facility] Comment on above: Performed By: #### L [id number] ####[facility] (BE[facility]ER)[address] [place] [address] Immature granulocytes/100 WBC (Bld) 0.4 % Normal 0.0-1.0 [facility] Comment on above: Performed By: #### L [id number] ####[facility] (BE[facility]ER)[address] [place] [address] Lymphocytes (Bld) [#/Vol] 1.09 10*3/uL Low 1.20-4.00 [facility] Comment on above: Performed By: #### L [id number] ####[facility] (BE[facility]ER)[address] [place] [address] Lymphocytes/100 WBC (Bld) 16.2 % Low 20.0-45.0 [facility] Comment on above: Performed By: #### L [id number] ####[facility] ([facility]ER)[address] [place] [address] MCH (RBC) [Entitic mass] 29.1 pg Normal 27.0-33.0 [facility] Comment on above: Performed By: #### L [id number] ####[facility] ([facility] [place] [address] MCV (RBC) [Entitic vol] 87.1 fL Normal 82.0-98.0 [facility] Comment on above: Performed By: #### L [id number] ####[facility] ([facility])[address] [place] [address] Monocytes (Bld) [#/Vol] 0.46 10*3/uL Normal 0.10-1.00 [facility] Comment on above: Performed By: #### L [id number] ####[facility] ([facility])[address] [place] [address] Monocytes/100 WBC (Bld) 6.8 % Normal 5.0-12.0 [facility] Comment on above: Performed By: #### L [id number] ####[facility] ([facility])[address] [place] [address] Neutrophils (Bld) [#/Vol] 4.90 10*3/uL Normal 1.60-7.60 [facility] Comment on above: Performed By: #### L [id number] ####[facility] ([facility])[address] [place] [address] Neutrophils/100 WBC (Bld) 73.1 % High 40.0-72.0 [facility] Comment on above: Performed By: #### L [id number] ####[facility] ([facility] [place] [address] NRBC (PER 100 WBCS) BY AUTOMATED COUNT 0.0 % Normal 0 [facility] Comment on above: Performed By: #### L [id number] ####[facility] (BE[facility]ER)[address] [place] [address] PLATELETS (10*3/UL) IN BLOOD AUTOMATED COUNT 201 10*3/uL Normal 150-400 [facility] Comment on above: Performed By: #### L [id number] ####[facility] ([facility])[address] [place] [address] RBC (Bld) [#/Vol] 4.88 10*6/uL Normal 4.20-5.70 [facility] Comment on above: Performed By: #### L [id number] ####[facility] ([facility])[address] [place] [address] WBC (Bld) [#/Vol] 6.72 10*3/uL Normal 4.00-10.60 [facility] Comment on above: Performed By: #### L [id number] ####[facility] ([facility])[address] [place] [address] MAGNESIUMon 11-26-2022 Magnesium [Mass/Vol] 1.7 mg/dL Low 1.9-2.7 [facility] Comment on above: Performed By: #### L [id number] ####[facility] ([facility])[address] [place] [address] NURSNOTEon 11-26-2022 NURSNOTE Normal [facility] PHOSPHORUSon 11-26-2022 Magnesium [Mass/Vol] 3.0 mg/dL Normal 2.5-5.0 [facility] Comment on above: Performed By: #### L [id number] ####[facility] ([facility])[address] [place] [address] POCT GLUCOSE METER UNSOLICIT ED RESULTSon 11-26-2022 Glucose [Mass/Vol] 188 mg/dL High 70-105 [facility] Comment on above: Order Comment: Waive d Testing in the ED is performed under the ED CLIA certificate #[id number]. Result Comment: [facility] avon[facility] [email or web address] Performed By: #### L [id number] ####[facility] ([facility])[address] [place] [address] Glucose [Mass/Vol] 142 mg/dL High 70-105 [facility] Comment on above: Order Comment: Waive d Testing in the ED is performed under the ED CLIA certificate #[id number]. Result Comment: [email or web address] yanez Performed By: #### L [id number] ####[facility] ([employer])[address] [place] [address] Glucose [Mass/Vol] 201 mg/dL High 70-105 [facility] Comment on above: Order Comment: Waive d Testing in the ED is performed under the ED CLIA certificate #[id number]. Result Comment: [email or web address] Performed By: #### L [id number] ####[facility] ([facility])[address] [place] [address] Glucose [Mass/Vol] 159 mg/dL High 70-105 [facility] Comment on above: Order Comment: Waive d Testing in the ED is performed under the ED CLIA certificate #[id number]. Result Comment: [email or web address] Performed By: #### L [id number] ####[facility] ([employer])[address] [place] [address] TROPONIN Ion 11-26-2022 Troponin I.cardiac [Mass/Vol] 0.02 ng/mL Normal 0.00-0.04 [facility] Comment on above: Performed By: #### L [id number] ####[facility] ([employer])[address] [place] [address] 30on 11-25-2022 30 Normal [facility] ANTI-XA (HEPARIN LEVEL)on HEPARIN UNFRACTIONATED (U/ML) IN PPP BY CHROMOGENIC METHOD >1.00 Critically high 0.3-0.7 [facility] Comment on above: Order Comment: Check anti-Xa level every 6 hours while on heparin infusion, or per protocol. Result Comment: Pioneer roxaban and Apixaban will interfere with the anti Xa assay used to monitor UFH and LMWH. Performed By: #### L [id number] ####[facility] ([employer])[address] [place] [address] APTTon 11-25-2022 ACTIVATED PARTIAL THROMBOPLASTIN TIME IN PPP BY COAGULATION ASSAY 31.6 Seconds Normal 25.0-35.0 [facility] Comment on above: Order Comment: Basel ine aPTT before initiating heparin infusion. Result Comment: Clin ical significance of the APTT is questionable in the presence of heparin. Performed By: #### L [id number] ####[facility] ([facility])[address] [place] [address] ACTIVATED PARTIAL THROMBOPLASTIN TIME IN PPP BY COAGULATION ASSAY 32.7 Seconds Normal 25.0-35.0 [facility] Comment on above: Result Comment: Clin ical significance of the APTT is questionable in the presence of heparin. Performed By: #### L [id number] ####[facility] ([facility])[address] [place] [address] BASIC METABOLIC PANELon 11-11 Anion gap [Moles/Vol] 11 mmol/L Normal 7-20 [facility] Comment on above: Performed By: #### L [id number] ####[facility] ([facility])[address] [place] [address] Calcium [Mass/Vol] 9.2 mg/dL Normal 8.6-10.3 [facility] Comment on above: Performed By: #### L [id number] ####[facility] ([facility])[address] [place] [address] Chloride [Moles/Vol] 105 mmol/L Normal 98-107 [facility] Comment on above: Performed By: #### L [id number] ####[facility] (BEAKER)[address] [place] [address] CO2 [Moles/Vol] 26 mmol/L Normal 21-31 [facility] Comment on above: Performed By: #### L [id number] ####[facility] (BEAKER)[address] [place] [address] Creatinine [Mass/Vol] 1.21 mg/dL Normal 0.70-1.30 [facility] Comment on above: Performed By: #### L [id number] ####[facility] ([facility] [place] [address] GLOMERULAR FILTRATION RATE ML/MIN/1.73 SQ M.PREDICTED 64.4 mL/min/1.73m*2 Normal >60.0 [facility] Comment on above: Result Comment: [facility]???s estimated glomerular filtration rate (eGFR) will [...] of individuals. Performed By: #### L [id number] ####[facility] ([facility])[address] [place] [address] Glucose [Mass/Vol] 200 mg/dL High 70-100 [facility] Comment on above: Performed By: #### L [id number] ####[facility] ([facility])[address] [place] [address] Potassium [Moles/Vol] 3.8 mmol/L Normal 3.5-5.1 [facility] Comment on above: Performed By: #### L [id number] ####[facility] ([facility])[address] [place] [address] Sodium [Moles/Vol] 138 mmol/L Normal 136-145 [facility] Comment on above: Performed By: #### L [id number] ####[facility] ([facility] [place] [address] Urea nitrogen [Mass/Vol] 18 mg/dL Normal 7-25 [facility] Comment on above: Performed By: #### L [id number] ####[facility] ([facility] [place] [address] UREA NITROGEN/CREATININE (MASS RATIO) IN SER/PLAS 14.9 Normal [facility] Comment on above: Performed By: #### L [id number] ####[facility] ([facility]ER)[address] [place] [address] CALCIUM, IONIZEDon CALCIUM IONIZED (MMOL/L) IN BLOOD 1.16 mmol/L Normal 1.15-1.33 [facility] Comment on above: Performed By: #### C ALCIUM, IONIZED ####[facility] [id number] [place] [address] [place] CBC WITH AUTO DIFFERENTIALon 11-25-2022 Basophils (Bld) [#/Vol] 0.03 10*3/uL Normal 0.00-0.20 [facility] Comment on above: Performed By: #### L [id number] ####[facility] (BEAKER)[address] [place] [address] Basophils/100 WBC (Bld) 0.5 % Normal 0.0-1.0 [facility] Comment on above: Performed By: #### L [id number] ####[facility] (BEAKER)[address] [place] [address] Eosinophils (Bld) [#/Vol] 0.15 10*3/uL Normal 0.00-0.50 [facility] Comment on above: Performed By: #### L [id number] ####[facility] (BEAKER)[address] [place] [address] Eosinophils/100 WBC (Bld) 2.3 % Normal 0.0-6.0 [facility] Comment on above: Performed By: #### L [id number] ####[facility] (BEAKER)[address] [place] [address] Erythrocyte distribution width (RBC) [Ratio] 14.1 % Normal 11.5-15.0 [facility] Comment on above: Performed By: #### L [id number] ####[facility] (BEAKER)[address] [place] [address] ERYTHROCYTE MEAN CORPUSCULAR HEMOGLOBIN CONCENTRATION (G/DL) BY AUTOMATED 34.5 g/dL Normal 32.0-35.0 [facility] Comment on above: Performed By: #### L [id number] ####[facility] ([facility] [place] [address] Hematocrit (Bld) [Volume fraction] 44.4 % Normal 39.0-55.0 [facility] Comment on above: Performed By: #### L [id number] ####[facility] ([facility])[address] [place] [address] Hemoglobin (Bld) [Mass/Vol] 15.3 g/dL Normal 13.0-17.0 [facility] Comment on above: Performed By: #### L [id number] ####[facility] ([facility])[address] [place] [address] Immature granulocytes (Bld) [#/Vol] 0.03 10*3/uL Normal 0.00-0.20 [facility] Comment on above: Performed By: #### L [id number] ####[facility] ([facility])[address] [place] [address] Immature granulocytes/100 WBC (Bld) 0.5 % Normal 0.0-1.0 [facility] Comment on above: Performed By: #### L [id number] ####[facility] ([facility] [place] [address] Lymphocytes (Bld) [#/Vol] 0.98 10*3/uL Low 1.20-4.00 [facility] Comment on above: Performed By: #### L [id number] ####[facility] ([facility] [place] [address] Lymphocytes/100 WBC (Bld) 15.0 % Low 20.0-45.0 [facility] Comment on above: Performed By: #### L [id number] ####[facility] (BEAKER)[address] [place] [address] MCH (RBC) [Entitic mass] 29.4 pg Normal 27.0-33.0 [facility] Comment on above: Performed By: #### L [id number] ####[facility] (BEAKER)[address] [place] [address] MCV (RBC) [Entitic vol] 85.4 fL Normal 82.0-98.0 [facility] Comment on above: Performed By: #### L [id number] ####[facility] (BEAKER)[address] [place] [address] Monocytes (Bld) [#/Vol] 0.55 10*3/uL Normal 0.10-1.00 [facility] Comment on above: Performed By: #### L [id number] ####[facility] ([facility])[address] [place] [address] Monocytes/100 WBC (Bld) 8.4 % Normal 5.0-12.0 [facility] Comment on above: Performed By: #### L [id number] ####[facility] ([facility])[address] [place] [address] Neutrophils (Bld) [#/Vol] 4.80 10*3/uL Normal 1.60-7.60 [facility] Comment on above: Performed By: #### L [id number] ####[facility] ([facility] [place] [address] Neutrophils/100 WBC (Bld) 73.3 % High 40.0-72.0 [facility] Comment on above: Performed By: #### L [id number] ####[facility] ([facility] [place] [address] NRBC (PER 100 WBCS) BY AUTOMATED COUNT 0.0 % Normal 0 [facility] Comment on above: Performed By: #### L [id number] ####[facility] ([facility])[address] [place] [address] PLATELETS (10*3/UL) IN BLOOD AUTOMATED COUNT 198 10*3/uL Normal 150-400 [facility] Comment on above: Performed By: #### L [id number] ####[facility] ([facility])[address] [place] [address] RBC (Bld) [#/Vol] 5.20 10*6/uL Normal 4.20-5.70 [facility] Comment on above: Performed By: #### L [id number] ####[facility] ([facility])[address] [place] [address] WBC (Bld) [#/Vol] 6.54 10*3/uL Normal 4.00-10.60 [facility] Comment on above: Performed By: #### L [id number] ####[facility] ([facility])[address] [address] CONSULTon 11-25-2022 CONSULT Normal [facility] Documentationon 11-25-2022 Documentation [id number] Lakia Rodriguez 1950 M Date Provider Department [place] 11/25/202230336-AHAJBFRANKO [facility] No family history on file Normal [facility] HEPATIC FUNCTION PANELon Albumin [Mass/Vol] 4.0 g/dL Normal 3.5-5.7 [facility] Comment on above: Performed By: #### L [id number] ####[facility] ([facility])[address] [place] [address] ALP [Catalytic activity/Vol] 88 U/L Normal 34-104 [facility] Comment on above: Performed By: #### L [id number] ####[facility] ([facility])[address] [place] [address] ALT [Catalytic activity/Vol] 26 U/L Normal 7-52 [facility] Comment on above: Performed By: #### L [id number] ####[facility] ([facility])[address] [place] [address] AST [Catalytic activity/Vol] 18 U/L Normal 13-39 [facility] Comment on above: Performed By: #### L [id number] ####[facility] ([facility])[address] [place] [address] Bilirubin [Mass/Vol] 0.6 mg/dL Normal 0.3-1.0 [facility] Comment on above: Performed By: #### L [id number] ####[facility] ([facility])[address] [place] [address] Magnesium [Mass/Vol] 0.2 mg/dL Normal 0-0.2 [facility] Comment on above: Performed By: #### L [id number] ####[facility] ([facility])[address] [place] [address] Protein [Mass/Vol] 6.4 g/dL Normal 6.0-8.3 [facility] Comment on above: Performed By: #### L [id number] ####[facility] ([facility])[address] [place] [address] HPon 11-25-2022 HP Normal [facility] HP Normal [facility] MAGNESIUMon 11-25-2022 Magnesium [Mass/Vol] 1.7 mg/dL Low 1.9-2.7 [facility] Comment on above: Performed By: #### L [id number] ####[facility] ([facility])[address] [place] [address] PHOSPHORUSon 11-25-2022 Magnesium [Mass/Vol] 3.2 mg/dL Normal 2.5-5.0 [facility] Comment on above: Performed By: #### L [id number] ####[facility] ([facility])[address] [place] [address] PLATELET COUNTon 11-25-2022 PLATELETS (10*3/UL) IN BLOOD AUTOMATED COUNT 204 10*3/uL Normal 150-400 [facility] Comment on above: Performed By: #### L [id number] ####[facility] ([facility])[address] [place] [address] POCT GLUCOSE METER UNSOLICIT ED RESULTSon 11-25-2022 Glucose [Mass/Vol] 194 mg/dL High 70-105 [facility] Comment on above: Order Comment: Waive d Testing in the ED is performed under the ED CLIA certificate #[id number]. Result Comment: [email or web address] Performed By: #### L [id number] ####[facility] ([facility])[address] [place] [address] Glucose [Mass/Vol] 193 mg/dL High 70-105 [facility] Comment on above: Order Comment: Waive d Testing in the ED is performed under the ED CLIA certificate #[id number]. Result Comment: [email or web address] Performed By: #### L [id number] ####[facility] ([facility])[address] [place] [address] Glucose [Mass/Vol] 188 mg/dL High 70-105 [facility] Comment on above: Order Comment: Waive d Testing in the ED is performed under the ED CLIA certificate #[id number]. Result Comment: [email or web address] Performed By: #### L [id number] ####[facility] ([facility])[address] [place] [address] Glucose [Mass/Vol] 178 mg/dL High 70-105 [facility] Comment on above: Order Comment: Waive d Testing in the ED is performed under the ED CLIA certificate #[id number]. Result Comment: [email or web address] Performed By: #### L [id number] ####[facility] ([facility])[address] [place] [address] POTASSIUM, WHOLE BLOODon Potassium [Moles/Vol] 3.9 mmol/L Normal 3.5-5.1 [facility] Comment on above: Performed By: #### P OTASSIUM, WHOLE BLOOD ####[facility] [id number] [place] [address] [place] PROTIME-INRon 11-25-2022 INR IN PPP BY COAGULATION ASSAY 1.74 High 0.90-1.10 [facility] Comment on above: Result Comment: ACCC [...] 1995;108:231S-246S. Performed By: #### L [id number] ####[facility] ([facility])[address] [place] [address] PROTHROMBIN TIME (PT) IN PPP BY COAGULATION ASSAY 20.4 Seconds High 12.3-14.8 [facility] Comment on above: Performed By: #### L [id number] ####[facility] ([facility])[address] [place] [address] SODIUM, WHOLE BLOODon 2022 SODIUM, WHOLE BLOOD 132 Low 136-145 [facility] Comment on above: Performed By: #### S ODIUM, WHOLE BLOOD ####[facility] [id number] [place] [address] [place] TROPONIN Ion 11-25-2022 Troponin I.cardiac [Mass/Vol] 0.03 ng/mL Normal 0.00-0.04 [facility] Comment on above: Performed By: #### L [id number] ####[facility] ([facility])[address] [place] [address] Troponin I.cardiac [Mass/Vol] 0.01 ng/mL Normal 0.00-0.04 [facility] Comment on above: Performed By: #### L [id number] ####[facility] ([facility])[address] [place] [address] CHEMISTRYOrdered By: Lab ROP User on 10-02-2022 INR Coag (Bld) [Relative time] 2.1 {INR} High 0.7 - 1.2 [facility] POC Subsection POC Device SN [id number] Invalid Interpretation Code [facility] POC Subsection POC Username PARISA HYDE Invalid Interpretation Code [facility] POC Subsection POCT PT 23.2 s High 8.0 - 15.0 second(s) [facility] POC Subsection Sodium [Moles/Vol] [id number] mmol/L Invalid Interpretation Code [facility] POC Subsection COAGULATIONOrdered By: Elenita Hyde on 10-02-2022 INR Coag (Bld) [Relative time] 2.1 {INR} High 0.7 - 1.[address] [facility] POCT PT 23.2 s High 8 - 15 second(s) [facility] POCT PT/INRon 10-02-2022 POCT INR 2.1 High .7-1.2 [facility] Comment on above: Performed By: #### 2 [id number] ####[facility] [address] [place] [address] POCT PT 23.2 second(s) High 8.0-15.0 [facility] Comment on above: Performed By: #### 2 [id number] ####[facility] [address] [place] [address] CHEMISTRYOrdered By: Lab ROP User on 08-21-2022 POC Device SN [id number] Invalid Interpretation Code [facility] POC Subsection POC Username YOSEF HAINES Invalid Interpretation Code [facility] POC Subsection Sodium [Moles/Vol] 593750809 mmol/L Invalid Interpretation Code [facility] POC Subsection COAGULATIONOrdered By: Ebenezer Haines on 08-21-2022 INR Coag (Bld) [Relative time] 2.1 {INR} High 0.7 - 1.[address] [facility] POCT PT 23.3 s High 8 - 15 second(s) [facility] POCT PT/INRon 08-21-2022 POCT INR 2.1 High .7-1.2 [facility] Comment on above: Performed By: #### 2 [id number] ####[facility] [address] [place] [address] POCT PT 23.3 second(s) High 8.0-15.0 [facility] Comment on above: Performed By: #### 2 [id number] ####[facility] [address] [place] [address] Progress Note-Physicianon Progress Note-Physician Patient: LAKIA RODRIGUEZ [...] results, # 90 tab(s), Refills(s) 0, Pharmacy: [facility]/pharmacy #[id number], 167.6, cm, 01/02/19 13:46:00 EST, Height/Length Measured, 95.8, kg, 01/02/19 13:46:00 EST, Weight Measured Eliquis 2.5 mg oral tablet: 2.5 mg = 1 tab(s), Oral, BID, # 60 tab(s), Refills(s) 5, Pharmacy: [facility]/pharmacy #[id number] Metamucil 525 mg oral capsule: 2,625 mg = 5 cap(s), Oral, Daily, X 90 day(s), # 450 cap(s), Refills(s) 3, Pharmacy: [facility]/pharmacy #[id number], 167.6, cm, 06/27/22 8:28:00 EDT, Height/Length Dosing, 94.9, kg, 06/27/22 8:28:00 EDT, Weight Dosing albuterol HFA 90 mcg/inh MDI: 2 puff(s), Inhalation, QID for wheezing, 6.7 gram, Refill(s) 0, [facility]/pharmacy #[id number] predniSONE 10 mg Tab: See Instructions, Oral 6 tabs for 1 day,5 tabs for 1 day,4 tabs for 1 day,3 tabs for 1 day,2 tabs for 1 day,1 tab for 1 day, # 21 tab(s), Refills(s) 0, Pharmacy: [facility]/pharmacy #[id number] Documented Medications Documented Immodium [...] list: All Problems Bloating / SNOMED CT 357696387 / Confirmed Constipation / SNOMED CT 89868186 / Confirmed Diverticulosis / SNOMED CT 0586152648 / Confirmed Acid reflux / SNOMED CT 120344852 / Confirmed Hemorrhoids / SNOMED CT 362372619 / Confirmed History of rectal cancer / SNOMED CT 7904305077 / Confirmed History of colon polyps / SNOMED CT 7361986029 / Confirmed Hypercoagulable state / SNOMED CT 116162846 / Confir (more content not included)... Normal [facility] Comment on above: Result Comment: Elec tronically Signed By: Aggie Hollingsworth\.pavan\Date and Time Signed: 08/21/22 08:26 EDT CHEMISTRYOrdered By: Lab ROP User on 07-10-2022 POC Device SN [id number] Invalid Interpretation Code [facility] POC Subsection POC Username SHAYY CAIN Invalid Interpretation Code [facility] POC Subsection Sodium [Moles/Vol] 080973304 mmol/L Invalid Interpretation Code [facility] POC Subsection COAGULATIONOrdered By: Elenita Hyde on 01-09-2022 POCT INR 2.8 High 0.7 - 1.[address] [facility] POCT PT 30.2 High 8 - [address] [facility] CHEMISTRYOrdered By: SYSTEM SYSTEM on [...] 50 mL/min/1.73 m2 Low >=59mL/min/1 .73 m2 [facility] Chem S Globulin (S) [Mass/Vol] 3.1 g/dL [...] 5.2 E12/L Normal 4.3 - 5.9 E12/L [facility] HemeAutoSS WBC corrected for nucl RBC Auto (Bld) [#/Vol] 7.7 E9/L Normal 4.0 - 11.0 E9/L [facility] HemeAutoSS Covid-19 PCR (CVDTBH)on SARS-CoV-2 (COVID-19) RNA KELLY+probe Ql (Unsp spec) Detected Critically abnormal NOT DETECTED [facility] Comment on above: Result Comment: This test is not yet approved or cleared by the [place] FDA. When there are no FDA-approved or cleared tests available, and other criteria are met, FDA can make tests available under an emergency access mechanism called an Emergency Use Authorization (EUA). The EUA for this test is supported by the Benefits Assistant of Health and Human Service's (HHS's) declaration [...] used). Performed By: #### C VDTBH #### [facility] [address] [place] [address] Dr. Kayli Perez INFLUENZA A AND B AGon 12-14 [facility] SEE BELOW Normal [facility] Comment on above: Result Comment: Nega tive for Flu A protein angiten. Infection due to Flu A cannot be ruled out. Flu A angiten in the sample may be below the detection limit of the test. Performed By: #### I NFLUAB #### [facility] [address] [place] [address] Dr. Kayli Perez INFLUBNEG SEE BELOW Normal [facility] Comment on above: Result Comment: Nega tive for Flu B protein antigen. Infection due to Flu B cannot be ruled out. Flu B antigen in the sample may be below the detection limit of the test. Performed By: #### I NFLUAB #### [facility] [address] [place] [address] Dr. Kayli Perez INFLUENZA A AG Negative Normal NEGATIVE SEE COMMENT [facility] Comment on above: Performed By: #### I NFLUAB #### [facility] [address] [address] [address] Kayli Perez INFLUENZA B AG Negative Normal NEGATIVE SEE COMMENT [facility] Comment on above: Performed By: #### I NFLUAB #### [facility] [address] [place], [place] [address] Dr. Kayli Perez INTERNAL CONTROLS Within Normal Limits Normal Wi thin Normal Limits [facility] Comment on above: Performed By: #### I NFLUAB #### [facility] [address] [address] [address] Kayli Perez CHEMISTRYOrdered By: Yosef Haines on 11-28-2021 INR POC FT 2.[address] [facility] PT POC FT 30.3 s High 10.8 - 13.6 second(s) [facility] CHEMISTRYOrdered By: Parisa Hyde on 10-13-2021 INR POC FT 2.[address] [facility] PT POC FT 28.9 s High 10.8 - 13.6 second(s) [facility] CHEMISTRYOrdered By: Shayy Cain on 10-03-2021 INR POC FT 2.[address] [facility] PT POC FT 31.6 s High 10.8 - 13.6 second(s) [facility] CHEMISTRYOrdered By: SYSTEM SYSTEM on [...] 60 mL/min/1.73 m2 Normal >=59mL/min/1 .73 m2 [facility] Chem S Globulin (S) [Mass/Vol] 3.0 g/dL Normal 1.4 - 4.0 gm/dL FT Remisol Glucose [Mass/Vol] 124 mg/dL Normal 55 - 199 mg/dL FT Remisol Potassium [Moles/Vol] 3.9 mmol/L Normal 3.5 [...] 42.5 % Normal 37.7 - 49.0 % FT HemeAutoSS Hemoglobin (Bld) [Mass/Vol] 14.7 g/dL Normal [...] HemeAutoSS Progress Noteon 07-02-2019 Progress Note [address] [place] [address] Progress Note Signed:[phone] Name: LAKIA RODRIGUEZ MRUN: [id number] : 1950 Loc: 3S Age / Sex: 68/ M Adm Status: DIS Leonor Adm Date:06/03/19 Room/Bed: [facility] Date of Service 06/04/19 Subjective (ROS) Constitutional: [...] (Auto) 12.8 % (24.0-44.0) L 06/05/19 05:34 [place] % (Auto) 7.5 % (1.7-9.3) 06/05/19 05:34 Eos % (Auto) 1.3 % (0.0-5.0) 06/05/19 05:34 Baso % (Auto) 0.3 % (0.0-1.0) 06/05/19 05:34 Neut # (Auto) 4.5 10 3/uL (1.5-6.7) 06/05/19 05:34 Lymph # (Auto) 0.7 10 3/uL (1.0-3.5) L 06/05/19 05:34 [place] # (Auto) 0.4 10 3/uL (0.2-0.8) 06/05/19 [...] Medical Status: Chronic 07/02/19 0908 CC: Fercho GALLO-C, Danii Pickett Normal [facility] CBC WITH AUTO DIFFon 020 Basophils (Bld) [#/Vol] 0.0 10 3/uL Normal 0.0-0.2 [facility] Comment on above: Performed By: #### P T #### [facility] - [address] [address] Basophils/100 WBC (Bld) 0.3 % Normal 0.0-1.0 [facility] Comment on above: Performed By: #### P T #### [facility] - [address] [address] Eosinophils (Bld) [#/Vol] 0.1 10 3/uL Normal 0.0-0.7 [facility] Comment on above: Performed By: #### P T #### [facility] - [address] [address] Eosinophils/100 WBC (Bld) 1.3 % Normal 0.0-5.0 [facility] Comment on above: Performed By: #### P T #### [facility] - [address] [address] Erythrocyte distribution width (RBC) [Ratio] 14.4 % High 11.5-14.0 [facility] Comment on above: Performed By: #### P T #### [facility] - [address] [address] Hematocrit (Bld) [Volume fraction] 39.2 % Normal 38.7-49.8 [facility] Comment on above: Performed By: #### P T #### [facility] - [address] [address] Hemoglobin (Bld) [Mass/Vol] 13.2 g/dL Normal 12.9-16.6 [facility] Comment on above: Performed By: #### P T #### [address] [address] Lymphocytes (Bld) [#/Vol] 0.7 10 3/uL Low 1.0-3.5 [facility] Comment on above: Performed By: #### P T #### [address] [address] Lymphocytes/100 WBC (Bld) 12.8 % Low 24.0-44.0 [facility] Comment on above: Performed By: #### P T #### [address] [address] MCH (RBC) [Entitic mass] 28.9 pg Normal 27.0-31.0 [facility] Comment on above: Performed By: #### P T #### [place] [id number] MCHC (RBC) [Mass/Vol] 33.8 g/dL Normal 32.0-36.0 [facility] Comment on above: Performed By: #### P T #### [address] [address] MCV (RBC) [Entitic vol] 85.5 fL Normal 78.0-100.0 [facility] Comment on above: Performed By: #### P T #### [address] [address] Monocytes (Bld) [#/Vol] 0.4 10 3/uL Normal 0.2-0.8 [facility] Comment on above: Performed By: #### P T #### [address] [address] Monocytes/100 WBC (Bld) 7.5 % Normal 1.7-9.3 [facility] Comment on above: Performed By: #### P T #### [address] [address] Neutrophils (Bld) [#/Vol] 4.5 10 3/uL Normal 1.5-6.7 [facility] Comment on above: Performed By: #### P T #### [facility] - [facility] [address] [place] [address] Neutrophils/100 WBC (Bld) 78.1 % High 36.0-66.0 [facility] Comment on above: Performed By: #### P T #### [facility] - [facility] [address] [place] [address] Platelet mean volume (Bld) [Entitic vol] 7.9 fL Normal 6.0-9.5 [facility] Comment on above: Performed By: #### P T #### Main [facility] - [address] [address] Platelets (Bld) [#/Vol] 180 10 3/uL Normal 150-450 [facility] Comment on above: Performed By: #### P T #### Main Lab - [address] [address] RBC (Bld) [#/Vol] 4.58 x10 6/uL Normal 4.38-5.71 [facility] Comment on above: Performed By: #### P T #### Main [facility] - [address] [address] WBC (Bld) [#/Vol] 5.8 10 3/uL Normal 4.0-10.5 [facility] Comment on above: Performed By: #### P T #### Main Lab - [address] [address] COMPREHENSIVE METABOLIC PANE Sukhi 06-05-2019 Albumin [Mass/Vol] 3.1 g/dL Low 3.9-5.0 [facility] Comment on above: Performed By: #### P T #### Main [facility] - [address] [address] Albumin/Globulin [Mass ratio] 1.2 {ratio} Normal 1.1-1.8 [facility] Comment on above: Performed By: #### P T #### [facility] [address] [place] [address] ALP [Catalytic activity/Vol] 84 U/L Normal 43-122 [facility] Comment on above: Performed By: #### P T #### [facility] - [facility] [address] [place], [place] [address] ALT/SGPT 48 U/L Normal 7-56 [facility] Comment on above: Performed By: #### P T #### Main [facility] - [facility] [address] [place] [address] Anion gap [Moles/Vol] 8 mmol/L Low 9-18 [facility] Comment on above: Performed By: #### P T #### [facility] [address] [place] [address] AST/SGOT 26 U/L Normal 14-50 [facility] Comment on above: Performed By: #### P T #### [facility] [address] [place] [address] Bilirubin [Mass/Vol] 0.5 mg/dL Normal 0.2-1.3 [facility] Comment on above: Performed By: #### P T #### [facility] [address] [place] [address] Calcium [Mass/Vol] 8.5 mg/dL Normal 8.4-10.2 [facility] Comment on above: Performed By: #### P T #### [facility] [address] [place] [address] Chloride [Moles/Vol] 106 mmol/L Normal 98-107 [facility] Comment on above: Performed By: #### P T #### Main [facility] [address] [place] [address] CO2 [Moles/Vol] 27 mmol/L Normal 22-31 [facility] Comment on above: Performed By: #### P T #### Main [facility] - [facility] [address] [place] [address] Creatinine [Mass/Vol] 1.30 mg/dL Normal 0.80-1.30 [facility] Comment on above: Performed By: #### P T #### Main [facility] [address] [place] [address] ESTIMATED CREAT CLEARANCE 52.26 Normal [facility] Comment on above: Result Comment: COCK CROFT-GAULT FORMULA 1973 Performed By: #### P T #### [facility] - [address] [address] ESTIMATED GLOMERULAR FILT RATE 55.000 mL/min Normal [facility] Comment on above: Performed By: #### P T #### [facility] - [address] [address] Globulin (S) [Mass/Vol] 2.6 g/dL Normal [facility] Comment on above: Performed By: #### P T #### [facility] - [address] [address] Glucose [Mass/Vol] 108 mg/dL High 70-99 [facility] Comment on above: Result Comment: The glucose range is based on recommendations from the [place] [employer] for fasting blood glucose range. Performed By: #### P T #### [facility] - [address] [address] Potassium [Moles/Vol] 3.7 mmol/L Normal 3.6-5.0 [facility] Comment on above: Performed By: #### P T #### [facility] - [address] [address] Protein [Mass/Vol] 5.7 g/dL Low 6.3-8.2 [facility] Comment on above: Performed By: #### P T #### [facility] - [address] [address] Sodium [Moles/Vol] 137 mmol/L Normal 137-145 [facility] Comment on above: Performed By: #### P T #### [facility] - [address] [address] Urea nitrogen [Mass/Vol] 15 mg/dL Normal 7-21 [facility] Comment on above: Performed By: #### P T #### [facility] - [address] [address] Urea nitrogen/Creatinine [Mass ratio] 11.5 Ratio Normal 5.0-42.0 [facility] Comment on above: Performed By: #### P T #### [facility] - [address] [address] Age - Reported 68 Years Normal [place] [facility] Comment on above: Performed By: #### P T #### [facility] - [address] [address] PT WITH INRon 06-05-2019 INR Coag (PPP) [Relative time] 3.1 {INR} Normal [facility] Comment on above: Result Comment: ISAAK MMENDED RANGES FOR INR: Therapeutic range for standard therapy INR: 2.0-3.0 Therapeutic range for high dose therapy INR: 2.5-3.5 Performed By: #### P T #### [facility] - [address] [address] PT Coag (PPP) [Time] 32.2 s High 12.0-14.5 Rajesh weems [facility] Comment on above: Performed By: #### P T #### [facility] - [place] [id number] URINE CULTUREon 06-05-2019 Bacteria identified Cx Nom (U) @06/03/19 1933: URINE CULT added. RFLXG = URINE CULT. @[place] [id number]. URINE CULTURE: NO GROWTH AT 48 HOURS Normal [facility] Comment on above: Performed By: #### P T #### [facility] - [address] [address] CBC WITH AUTO DIFFon 020 Basophils (Bld) [#/Vol] 0.0 10 3/uL Normal 0.0-0.2 [facility] Comment on above: Performed By: #### P T, CMP, CBC #### [facility] - [address] [address] Basophils/100 WBC (Bld) 0.2 % Normal 0.0-1.0 [facility] Comment on above: Performed By: #### P T, CMP, CBC #### [facility] - [address] [address] Eosinophils (Bld) [#/Vol] 0.0 10 3/uL Normal 0.0-0.7 [facility] Comment on above: Performed By: #### P T, CMP, CBC #### [facility] - [facility] [address] [place], [place] [address] Eosinophils/100 WBC (Bld) 0.3 % Normal 0.0-5.0 [facility] Comment on above: Performed By: #### P T, CMP, CBC #### Main Lab - [facility] [address] [address] Erythrocyte distribution width (RBC) [Ratio] 14.4 % High 11.5-14.0 [facility] Comment on above: Performed By: #### P T, CMP, CBC #### Main Lab - [address] [address] Hematocrit (Bld) [Volume fraction] 40.5 % Normal 38.7-49.8 [facility] Comment on above: Performed By: #### P T, CMP, CBC #### Main Lab - [facility] [address] Hemoglobin (Bld) [Mass/Vol] 13.9 g/dL Normal 12.9-16.6 [facility] Comment on above: Performed By: #### P T, CMP, CBC #### Main Lab - [facility] [address] Lymphocytes (Bld) [#/Vol] 0.6 10 3/uL Low 1.0-3.5 [facility] Comment on above: Performed By: #### P T, CMP, CBC #### [facility] [address] [place] [address] Lymphocytes/100 WBC (Bld) 8.3 % Low 24.0-44.0 [facility] Comment on above: Performed By: #### P T, CMP, CBC #### Main Lab - [facility] [address] [place] [address] MCH (RBC) [Entitic mass] 29.2 pg Normal 27.0-31.0 [facility] Comment on above: Performed By: #### P T, CMP, CBC #### Main Lab - [facility] [address] [place] [address] MCHC (RBC) [Mass/Vol] 34.2 g/dL Normal 32.0-36.0 [facility] Comment on above: Performed By: #### P T, CMP, CBC #### Main Lab - [facility] [address] [place] [address], [place] [address] MCV (RBC) [Entitic vol] 85.2 fL Normal 78.0-100.0 [facility] Comment on above: Performed By: #### P T, CMP, CBC #### Main Lab - [address] [address] Monocytes (Bld) [#/Vol] 0.4 10 3/uL Normal 0.2-0.8 [facility] Comment on above: Performed By: #### P T, CMP, CBC #### Main Lab - [facility] [address] Monocytes/100 WBC (Bld) 5.4 % Normal 1.7-9.3 [facility] Comment on above: Performed By: #### P T, CMP, CBC #### Main Lab - [address] [address] Neutrophils (Bld) [#/Vol] 5.8 10 3/uL Normal 1.5-6.7 [facility] Comment on above: Performed By: #### P T, CMP, CBC #### Main Lab - [address] [address] Neutrophils/100 WBC (Bld) 85.8 % High 36.0-66.0 [facility] Comment on above: Performed By: #### P T, CMP, CBC #### Main Lab - [address] [address] Platelet mean volume (Bld) [Entitic vol] 8.1 fL Normal 6.0-9.5 [facility] Comment on above: Performed By: #### P T, CMP, CBC #### Main Lab - [address] [address] Platelets (Bld) [#/Vol] 190 10 3/uL Normal 150-450 [facility] Comment on above: Performed By: #### P T, CMP, CBC #### Main [facility] [address] [place] [address] RBC (Bld) [#/Vol] 4.75 x10 6/uL Normal 4.38-5.71 [facility] Comment on above: Performed By: #### P T, CMP, CBC #### Main Lab - [facility] [address] [place], [place] [address] WBC (Bld) [#/Vol] 6.7 10 3/uL Normal 4.0-10.5 [facility] Comment on above: Performed By: #### P T, CMP, CBC #### Main Lab - [facility] [address] [place], [place] [address] COMPREHENSIVE METABOLIC PANE Sukhi 06-04-2019 Albumin [Mass/Vol] 3.4 g/dL Low 3.9-5.0 [facility] Comment on above: Performed By: #### P T, CMP, CBC #### Main Lab - [facility] [address] [place], [place] [address] Albumin/Globulin [Mass ratio] 1.2 {ratio} Normal 1.1-1.8 [facility] Comment on above: Performed By: #### P T, CMP, CBC #### Main Lab - [facility] [address] [place] [address] ALP [Catalytic activity/Vol] 92 U/L Normal 43-122 [facility] Comment on above: Performed By: #### P T, CMP, CBC #### Main Lab - [facility] [address] [place] [address] ALT/SGPT 62 U/L High 7-56 [facility] Comment on above: Performed By: #### P T, CMP, CBC #### Main Lab - [facility] [address] [place] [address] Anion gap [Moles/Vol] 8 mmol/L Low 9-18 [facility] Comment on above: Performed By: #### P T, CMP, CBC #### Main Lab - [facility] [address] [place] [address] AST/SGOT 36 U/L Normal 14-50 [facility] Comment on above: Result Comment: Spec imen Slightly Hemolyzed. Performed By: #### P T, CMP, CBC #### Main Lab - [facility] [address] [place], [place] [address] Bilirubin [Mass/Vol] 0.5 mg/dL Normal 0.2-1.3 [facility] Comment on above: Performed By: #### P T, CMP, CBC #### Main Lab - [facility] [address] [place], [place] [address] Calcium [Mass/Vol] 8.9 mg/dL Normal 8.4-10.2 [facility] Comment on above: Performed By: #### P T, CMP, CBC #### Main Lab - [facility] [address] [place], [place] [address] Chloride [Moles/Vol] 109 mmol/L High 98-107 [facility] Comment on above: Result Comment: Inco nsistent with previous results. Performed By: #### P T, CMP, CBC #### Main Lab - [facility] [address] [place], [place] [address] CO2 [Moles/Vol] 27 mmol/L Normal 22-31 [facility] Comment on above: Performed By: #### P T, CMP, CBC #### Main Lab - [facility] [address] [place] [address] Creatinine [Mass/Vol] 1.28 mg/dL Normal 0.80-1.30 [facility] Comment on above: Performed By: #### P T, CMP, CBC #### Main Lab - [facility] [address] [place] [address] ESTIMATED CREAT CLEARANCE 53.08 [facility] Comment on above: Result Comment: COCK CROFT-GAULT FORMULA 1972 Performed By: #### P T, CMP, CBC #### Main Lab - [facility] [place], [place] [address] ESTIMATED GLOMERULAR FILT RATE 56.000 mL/min Normal [facility] Comment on above: Performed By: #### P T, CMP, CBC #### Main Lab - [facility] [place], [place] [address] Globulin (S) [Mass/Vol] 2.9 g/dL Normal [facility] Comment on above: Performed By: #### P T, CMP, CBC #### Main Lab - [facility] [address] [place], [place] [address] Glucose [Mass/Vol] 165 mg/dL High 70-99 [facility] Comment on above: Result Comment: The glucose range is based on recommendations from the [place] [employer] for fasting blood glucose range. Performed By: #### P T, CMP, CBC #### Main Lab - [facility] [address] [place], [place] [address] Potassium [Moles/Vol] 3.7 mmol/L Normal 3.6-5.0 [facility] Comment on above: Result Comment: Spec imen Slightly Hemolyzed. Performed By: #### P T, CMP, CBC #### Main Lab - [facility] [address] [place], [place] [address] Protein [Mass/Vol] 6.3 g/dL Normal 6.3-8.2 [facility] Comment on above: Performed By: #### P T, CMP, CBC #### Main Lab - [facility] [address] [place] [address] Sodium [Moles/Vol] 140 mmol/L Normal 137-145 [facility] Comment on above: Performed By: #### P T, CMP, CBC #### Main Lab - [facility] [address] [place] [address] Urea nitrogen [Mass/Vol] 17 mg/dL Normal 7-21 [facility] Comment on above: Performed By: #### P T, CMP, CBC #### Main Lab - [facility] [address] [place] [address] Urea nitrogen/Creatinine [Mass ratio] 13.3 Ratio Normal 5.0-42.0 [facility] Comment on above: Performed By: #### P T, CMP, CBC #### Main Lab - [facility] [address] [place], [place] [address] Age - Reported 68 Years Normal [facility] Comment on above: Performed By: #### P T, CMP, CBC #### Main Lab - [facility] [place], [place] [address] CREATINE KINASE MBon 020 CK.MB [Mass/Vol] 4.0 ng/mL High 0.0-3.7 [facility] Comment on above: Performed By: #### C KMB 1 #### Main Lab - [facility] [address] [place], [place] [address] CK.MB [Mass/Vol] 3.8 ng/mL High 0.0-3.7 [facility] Comment on above: Performed By: #### C KMB 1 #### Main Lab - [facility] [address] [place] [address] CK.MB [Mass/Vol] 4.4 ng/mL High 0.0-3.7 [facility] Comment on above: Performed By: #### P T #### Main Lab - [facility] [address] [place] [address] ABDOMEN PELVIS W/Oon 05-13 CT ABDOMEN PELVIS W/O [facility] [address] [place] [address] Diagnostic Imaging Report : [id number] Signed Name: LAKIA RODRIGUEZ MRUN: [id number] : 1950 Loc: 3S Age / Sex: 68 / M ADM Status: ADM Leonor ADM Date: 06/03/19 Room/Bed: [facility] Ordering Physician: Vick ENCISO, [facility] Procedure: CT ABDOMEN PELVIS W/O Order Number(s): [id number] Ordered Date: 06/04/19 Ordered Time: 0006 EXAMINATION: [...] Signed Date/Time: 06/04/19225 Transcribed Date/Time: 06/04/19221 Normal [facility] DRUG SCREEN,URINEon 06-04-19 AMPHETAMINE SCREEN,URINE Negative Normal NEGATIVE [facility] Comment on above: Order Comment: @ COL L DATE was changed from 06/03/19 to 06/04/19 @ by [id number]. Old specimen was [id number]. Result Comment: Nega tive cut-off concentration <1000 ng/mL Performed By: #### U DS #### Main Lab - [facility] [place] [address] BARBITURATE SCREEN, URINE Negative Normal NEGATIVE [facility] Comment on above: Order Comment: @ COL L DATE was changed from 06/03/19 to 06/04/19 @ by [id number]. Old specimen was [id number]. Result Comment: Nega tive cut-off concentration <200 ng/mL Performed By: #### U DS #### Main Lab - [facility] [place], [place] [address] BENZODIAZEPINES SCREEN,URINE Negative Normal NEGATIVE [facility] Comment on above: Order Comment: @ COL L DATE was changed from 06/03/19 to 06/04/19 @ by [id number]. Old specimen was [id number]. Result Comment: Nega tive cut-off concentration <200 ng/mL Performed By: #### U DS #### Main Lab - [facility] [place] [address]773 BUPRENORPHINE SCREEN,URINE Negative Normal NEGATIVE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 Sex: 68 / M ADM Status: REG ER ADM Date: 06/03/19 Room/Bed: Ordering Physician: Steve Johnson MD Procedure: XR CHEST, ONE VIEW Order Number(s): [id number] Ordered Date: 06/03/19 Ordered Time: 172 EXAMINATION: [...] Signed Date/Time: 06/03/191810 Transcribed Date/Time: 06/03/191807 Normal [facility] Protimeon 01-20-2018 INR Coag RelTime (Bld) 1.5 {INR} High 0.9-1.3 [facility] Comment on above: Result Comment: Alexandra min K Antagonist (VKA) Therapeutic Range: INR 2 to 3 (Target INR of 2.5)Note: For patients treated with VKA drugs, such as warfarin, the [employer] 2012 Guideline recommends [...] 3).Tuan GH, et al. Chest 2012, 141:7S-47SNishhowie NEAL et al. [facility] 2017, 70: 252-289 Performed By: #### P T ####[place] [phone] PT Sec 14.8 sec High 9.7-13.0 [facility] Comment on above: Performed By: #### P T ####[place] [phone] Vital Signs Date Time Vital Sign Value Performing Clinician Facility 07-25-2023 11:38-0400 Body temperature 98.24 [degF] [facility] 11:38-0400 Diastolic blood pressure 55 mm[Hg] [facility]25[facility]23 11:38-0400 Heart rate 62 /min [facility] 07-25-2023 11:38-0400 Mean blood pressure 65 mm[Hg] [facility]-25-2023 11:38-0400 Respiratory rate 16 /min [facility] 07-25-2023 11:38-0400 SaO2% (BldA) [Mass fraction] 92 % [facility] 07-25-2023 11:38-0400 Systolic blood pressure 86 mm[Hg] [facility] 06-27-2023 13:43-0400 Body temperature 97.7 [degF] [facility] 06-27-2023 13:43-0400 Diastolic blood pressure 80 mm[Hg] [facility] 06-27-2023 13:43-0400 Heart rate 59 /min [facility] 06-27-2023 13:43-0400 Mean blood pressure 95 mm[Hg] [facility] 06-27-2023 13:43-0400 Respiratory rate 16 /min [facility] 06-27-2023 13:43-0400 SaO2% (BldA) [Mass fraction] 97 % [facility] 06-27-2023 13:43-0400 Systolic blood pressure 124 mm[Hg] [facility] 04-15-2023 12:15-0500 Diastolic blood pressure 81 mm[Hg] Jessica Alcaraz [facility] 04-15-2023 12:15-0500 Heart rate 80 /min Mohamad Mouchli [facility] 04-15-2023 12:15-0500 Respiratory rate 16 /min Josiahd Emmettuchli [facility] 04-15-2023 12:15-0500 Systolic blood pressure 168 mm[Hg] Mohcarold Emmettuchli [facility] 05-17-2022 08:00-0400 Blood Pressure Location Yusramanuel HenryCira [facility] 05-17-2022 08:00-0400 Body temperature 97.16 [degF] Yusra Cira [facility] 05-17-2022 08:00-0400 Diastolic blood pressure 81 mm[Hg] Yusra Cira [facility] 05-17-2022 08:00-0400 Heart rate 71 /min Yusramanuel [facility] 05-17-2022 08:00-0400 Respiratory rate 16 /min Yusramanuel [facility] 05-17-2022 08:00-0400 SaO2% (BldA) [Mass fraction] 96 % Yusra Cira [facility] 05-17-2022 08:00-0400 Systolic blood pressure 131 mm[Hg] Yusra Cira [facility] 12-28-2021 13:04-0500 Blood Pressure Location Dougie Harmon [facility] 12-28-2021 13:04-0500 Body temperature 98.06 [degF] Dougie Harmon [facility] 12-28-2021 13:04-0500 BP/Pulse Patient Position Dougie Harmon [facility] 12-28-2021 13:04-0500 Diastolic blood pressure 89 mm[Hg] Dougie Harmon [facility] 12-28-2021 13:04-0500 Heart rate 89 /min Dougie Harmon [facility] 12-28-2021 13:04-0500 Mean blood pressure 104 mm[Hg] Dougie Harmon [facility] 12-28-2021 13:04-0500 Respiratory rate 16 /min Dougie Harmon [facility] 12-28-2021 13:04-0500 SaO2% (BldA) [Mass fraction] 96 % Dougieanna Harmon [facility] 12-28-2021 13:04-0500 Systolic blood pressure 135 mm[Hg] Dougieanna Harmon [facility] 11-16-2021 08:26-0400 Diastolic blood pressure 80 mm[Hg] Yusra Henrymetz [facility] 11-16-2021 08:26-0400 Mean blood pressure 99 mm[Hg] Yusra Cira [facility] 11-16-2021 08:26-0400 Systolic blood pressure 136 mm[Hg] Yusra Cira [facility] 11-16-2021 08:19-0400 Blood Pressure Location Yusra Cira [facility] 11-16-2021 08:19-0400 Body temperature 97.7 [degF] Yusra Cira [facility] 11-16-2021 08:19-0400 Diastolic blood pressure 82 mm[Hg] Yusra Cira [facility] 11-16-2021 08:19-0400 Heart rate 72 /min Yusra Cira [facility] 11-16-2021 08:19-0400 Systolic blood pressure 142 mm[Hg] Yusra Denis [facility] 10-05-2021 10:35-0400 Diastolic blood pressure 93 mm[Hg] Plascencia SALAM [facility] 10-05-2021 10:35-0400 Heart rate 64 /min Plascencia SALAM [facility] 10-05-2021 10:35-0400 Respiratory rate 12 /min Plascencia SALAM [facility] 10-05-2021 10:35-0400 SaO2% (BldA) [Mass fraction] 96 % Plascencia SALAM [facility] 10-05-2021 10:35-0400 Systolic blood pressure 138 mm[Hg] Plascencia SALAM [facility] 10-05-2021 10:25-0400 Diastolic blood pressure 86 mm[Hg] Plascencia SALAM [facility] 10-05-2021 10:25-0400 Heart rate 62 /min Plascencia SALAM [facility] 10-05-2021 10:25-0400 Respiratory rate 16 /min Plascencia SALAM [facility] 10-05-2021 10:25-0400 SaO2% (BldA) [Mass fraction] 96 % Plascencia SALAM [facility] 10-05-2021 10:25-0400 Systolic blood pressure 145 mm[Hg] Plascencia SALAM [facility] 10-05-2021 10:11-0400 Diastolic blood pressure 96 mm[Hg] Plascencia SALAM [facility] 10-05-2021 10:11-0400 Heart rate 74 /min Plascencia SALAM [facility] 10-05-2021 10:11-0400 Respiratory rate 19 /min Plascencia SALAM [facility] 10-05-2021 10:11-0400 SaO2% (BldA) [Mass fraction] 96 % Plascencia SALAM [facility] 10-05-2021 10:11-0400 Systolic blood pressure 126 mm[Hg] Plascencia SALAM [facility] 10-05-2021 09:47-0400 Blood Pressure Location Plascencia SALAM [facility] 10-05-2021 09:47-0400 Body temperature 97.34 [degF] Plascencia SALAM [facility] 10-05-2021 09:40-0400 Respiratory rate 14 /min Plascencia SALAM [facility] 10-05-2021 09:35-0400 Respiratory rate 15 /min Plascencia SALAM [facility] 10-05-2021 09:30-0400 Respiratory rate 16 /min Plascencia SALAM [facility] 10-05-2021 08:58-0400 Blood Pressure Location Plascencia SALAM [facility] 10-05-2021 08:58-0400 Body temperature 97.88 [degF] Plascencia SALAM [facility] 07-19-2021 08:51-0400 Blood Pressure Location Yusra Cira [facility] 07-19-2021 08:51-0400 Body temperature 97.34 [degF] Yusra Denis [facility] 07-19-2021 08:51-0400 Diastolic blood pressure 85 mm[Hg] Yusra Denis [facility] 07-19-2021 08:51-0400 Heart rate 74 /min Yusra Denis [facility] 07-19-2021 08:51-0400 SaO2% (BldA) [Mass fraction] 98 % Yusra Denis [facility] 07-19-2021 08:51-0400 Systolic blood pressure 129 mm[Hg] Yusra Denis [facility] Encounters Encounter Date Encounter Type Care Provider Facility Start: 07-30-2023 End: 07-30-2023 ambulatory [facility] Start: 07-25-2023 End: 07-25-2023 ambulatory Dougie Harmon Facility:[facility] Start: 07-25-2023 End: 07-25-2023 Patient encounter procedure Dougie Harmon [facility] Start: 07-23-2023 End: 07-23-2023 ambulatory Dougie Harmon Facility:[facility] Start: 07-23-2023 End: 07-23-2023 Patient encounter procedure Dougie Harmon [facility] Start: 07-18-2023 ambulatory [facility] Start: 07-18-2023 Encounter for preprocedural cardiovascular examination [facility] Start: 07-18-2023 ambulatory MARTIN STINSON [facility] Start: 07-15-2023 ambulatory [facility] Start: 07-06-2023 End: 07-06-2023 ambulatory Dougie Harmon Facility:[facility] Start: 07-06-2023 End: 07-06-2023 Patient encounter procedure Dougie Harmon [facility] Start: 07-02-2023 End: 07-02-2023 ambulatory ELEAZAR WILLIS Facility:[facility] Start: 07-02-2023 End: 07-02-2023 Patient encounter procedure [facility] [facility] Start: 06-27-2023 End: 06-27-2023 ambulatory Dougie Harmon Facility:[facility] Start: 06-27-2023 End: 06-27-2023 Patient encounter procedure Dougie Harmon [facility] Start: 06-25-2023 End: 06-25-2023 ambulatory JESSICA ALCARAZ Facility:[facility] Start: 06-25-2023 End: 06-25-2023 Admission to same day surgery center Nanci Miller APRN.CNP Work Phone: Colorectal Surgery Start: 06-25-2023 End: 06-25-2023 Patient encounter procedure Nanci Miller APRN.CNP Work Phone: Colorectal Surgery Comment on above: Abdominal bloating ( Primary Dx); Alternating constipation and diarrhea; Personal history of rectal cancer; Low anterior resection syndrome Start: 05-03-2023 End: 06-11-2023 Pre-admission assessment CYNTHIA AGUILA [facility] Start: 04-26-2023 Telephone encounter Nanci Miller APRN.CNP Work Phone: Colorectal Surgery Start: 04-23-2023 End: 04-23-2023 ambulatory Jessica Alcaraz Facility:[facility] Start: 04-23-2023 End: 04-23-2023 Patient encounter procedure Jessica Alcaraz [facility] Start: 04-19-2023 End: 04-19-2023 ambulatory Jessica Alcaraz Facility:[facility] Start: 04-19-2023 End: 04-19-2023 Patient encounter procedure Jessica Alcaraz [facility] Start: 04-15-2023 End: 04-15-2023 ambulatory Jessica Alcaraz Facility:[facility] Start: 04-15-2023 End: 04-15-2023 Patient encounter procedure Jessica Alcaraz [facility] Start: 01-23-2023 End: 01-23-2023 ambulatory [facility] Start: 01-08-2023 End: 01-08-2023 ambulatory [facility] Start: 12-26-2022 End: 12-26-2022 ambulatory [facility] Start: 12-12-2022 End: 12-12-2022 ambulatory [facility] Start: 12-05-2022 Evaluation and manag ement of inpatient [facility] Start: 12-04-2022 Evaluation and manag ement of inpatient [facility] Start: 12-04-2022 Evaluation and manag ement of inpatient [facility] Start: 12-03-2022 Evaluation and manag ement of inpatient [facility] Start: 12-03-2022 Evaluation and manag ement of inpatient [facility] Start: 12-03-2022 Evaluation and manag ement of inpatient [facility] Start: 12-02-2022 Evaluation and manag ement of inpatient MAN[facility] Start: 12-02-2022 Evaluation and manag ement of inpatient ADRIANA SANTOS [facility] Start: 12-01-2022 Evaluation and manag ement of inpatient ADRIANA [facility] Start: 12-01-2022 Evaluation and manag ement of inpatient ADRIANA [facility] Start: 11-30-2022 Evaluation and manag ement of inpatient ADRIANA [facility] Start: 11-30-2022 Evaluation and manag ement of inpatient HAYLEY CLAYTON [facility] Start: 11-26-2022 Evaluation and manag ement of inpatient JESUS [facility] Start: 11-26-2022 Evaluation and manag ement of inpatient MERCEDES RHODESARZ [facility] Start: 11-25-2022 Evaluation and manag ement of inpatient JESUS [facility] Start: 11-25-2022 End: 12-05-2022 Evaluation and management of inpatient JESUS [facility] Start: 11-25-2022 End: 11-25-2022 Emergency department patient visit MARTIN STINSON [facility] Start: 06-15-2022 End: 06-15-2022 Patient encounter procedure Yusra Denis [facility] Start: 05-17-2022 End: 05-17-2022 Patient encounter procedure Yusra Denis [facility] Start: 02-28-2022 End: 12-31-20[address] Luis [address] [facility] Start: 12-28-2021 End: 12-28-2021 Patient encounter procedure Dougie Harmon [facility] Start: 12-27-2021 End: 12-27-2021 Patient encounter procedure Dougie Harmon [facility] Start: 12-22-[address] LAKIA DYSON Facility :[facility] Start: 12-14-2021 End: 12-14-[address] LAKIA DYSON Facility:[facility] Start: 11-16-2021 End: 11-16-2021 Patient encounter procedure Yusra A Cira [facility] Start: 10-05-2021 End: 10-05-2021 Patient encounter procedure Plascencia LAURA [facility] Start: 07-19-2021 End: 07-19-2021 Patient encounter procedure Yusra Denis [facility] Start: 06-23-2021 End: 06-23-2021 Patient encounter procedure Dougie Harmon [facility] Start: 06-14-2021 End: 06-14-2021 Patient encounter procedure Dougie Harmon [facility] Start: 02-14-2021 End: 02-26-2022 Recurring Aggie Leah [facility] Start: 01-20-[address] [facility] Procedures Date Procedure Procedure Detail Performing Clinician Start: 07-30-2023 Follow-up visit JESUS ANABELA Start: 06-25-2023 ADULT [place] [facility] Nanci Miller APRN.CNP Work Phone: Start: 01-23-2023 Follow-up visit JESUS ANABELA Start: 01-08-2023 Follow-up visit JESUS ANABELA Start: 12-26-2022 Follow-up visit JESUS ANABELA Start: 10-05-2021 Colonoscopy Thais HINOJOSA Start: 03-02-2017 Colonoscopy Yusra Denis colostomy reversal Dougie rousseau Esophagogastroduoden oscopy gastric outlet reduction Yusra Denis Pacemaker battery (physical object) Dougie Harmon Plan of Treatment Date Care Activity Detail Author Start: 12-06-2023 Creatinine measurement Serum Creatinine [facility] Start: 10-13-2023 Influenza vaccination Influenza Vaccine (Season Ended) [facility] Start: 02-11-2023 Advance Directive Discussion Advance Directive Discussion [facility] Start: 02-11-2023 Behavioral Health Screening Behavioral Health Screening [facility] Start: 02-11-2023 Depression Assessment Depression Assessment [facility] Start: 10-12-2022 Covid-19 Vaccine ( season) Covid-19 Vaccine ( season) [facility] Start: 10-12-2022 Covid-19 Vaccine ( season) Covid-19 Vaccine ( season) [facility] Start: 10-12-2022 Influenza vaccination Influenza Vaccine (#1) [facility] Start: 03-12-2022 Shingrix Vaccine (2 of 2) Shingrix Vaccine (2 of 2) [facility] Start: 08-19-2021 Creatinine measurement Serum Creatinine [facility] Start: 09-15-2020 Screening for malignant neoplasm of colon [facility] Start: 06-28-2020 Urine microalbumin profile DTaP,Tdap,Td Vaccine (1 - Tdap) [facility] Start: 12-28-2018 Hemoglobin A1c measurement HbA1C [facility] Start: 01-29-2017 Pneumococcal Vaccine: 65+ (2 of 2 - PCV) Pneumococcal Vaccine: 65+ (2 of 2 - PCV) [facility] Start: 2012 RSV Vaccine (1 - 1-dose 60+ series) RSV Vaccine (1 - 1-dose 60+ series) [facility] Start: 2002 Shingrix Vaccine (1 of 2) Shingrix Vaccine (1 of 2) [facility] Start: 1997 Screening for malignant neoplasm of colon [facility] Start: 11-05-1971 Urine microalbumin profile DTaP,Tdap,Td Vaccine (1 - Tdap) [facility] Start: 1970 Annual PCP Team Chronic Disease Visit Annual PCP Team Chronic Disease Visit [facility] Start: 1970 BP Controlled (<130/80) BP Controlled (<130/80) [facility] Start: 1970 Hepatitis B surface antibody level LDL Cholesterol [facility] Start: 1970 Hepatitis C screening Hepatitis C Screening [facility] Start: 1962 Diabetic foot examination Diabetic Foot Exam [facility] Start: 1962 Glaucoma screening Dilated Retinal Exam [facility] Start: 1962 Hepatitis B screening Urine Albumin:Creatinine Ratio [facility] ANORECTAL MANOMETRY ADULT [place] ANORECTAL MANOMETRY Endoscopy Routine Abdominal bloating Incontinence of feces with fecal urgency 06/25/2023 [facility] Work Phone: Immunizations Immunization Date Immunization Notes Care Provider Fa cili 01-15-2022 influenza virus vaccine, unspecified formulation Yusra Denis [facility] 01-15-2022 zoster vaccine recombinant [employer] [facility] 01-11-2021 influenza, unspecifi ed formulation Yusramanuel HenryCira [facility] 07-22-2020 SARS-CoV-2 (COVID-19 ) mRNA BNT-162b2 vax [facility] Comment on above: Result Comment: 2021: [id number] 06-30-2020 SARS-CoV-2 (COVID-19 ) mRNA BNT-162b2 vax [facility] Comment on above: Result Comment: 2021: [id number] 06-27-2020 tetanus and diphther ia toxoids, adsorbed, preservative free, for adult use (2 Lf of tetanus toxoid and 2 Lf of diphtheria toxoid) Yusra Denis [facility] 11-14-2019 influenza virus vaccine, unspecified formulation Yusra Denis [facility] 10-31-2018 influenza virus vaccine, unspecified formulation Yusra Denis [facility] 10-31-2018 pneumococcal polysaccharide vaccine, 23 valent Yusra Denis [facility] 10-22-2017 influenza virus vaccine, unspecified formulation Yusra Denis [facility] 10-22-2017 pneumococcal conjuga te vaccine, 13 valent Yusra Denis [facility] 12-07-2016 influenza, unspecifi ed formulation Yusra Denis [facility] 01-30-2016 influenza, injectabl e, quadrivalent, preservative free Nanci Miller WOODEN SHADE HARDWARE INSTALLER.POWER TRANSFORMER INSPECTOR Work Phone: [facility] 01-30-2016 pneumococcal polysaccharide vaccine, 23 valent Nanci Miller [employer]OD[employer] SH[employer] HARDWARE INSTALLER.POWER TRANSFORMER INSPECTOR Work Phone: [facility] 01-30-2016 influenza virus vaccine, unspecified formulation Nanci Miller WOODEN SHADE HARDWARE INSTALLER.POWER TRANSFORMER INSPECTOR Work Phone: [facility] NEGATED: Highlighted row has not occurred!11-16-2021 influenza virus vaccine, unspecified formulation Yusra Denis [facility] Payers Date Payer Category Payer Unknown MMO MMO MEDICARE SUPPLEMENT [id number] 2019-Present [phone] [address] [place] [address] Indemnity [id number] 2017 Medicare MEDICARE MEDICAR E A AND B [id number] 2017-Present [phone] [place] [address] Medicare [id number] 1959 Medicare [id number] 1959 Self-pay 1959 Unknown [id number] 1952 Unknown [id number] 1952 Unknown [id number] 1952 Unknown [id number] 1952 Unknown [id number] 1952 Unknown [id number] 1952 Unknown [id number] 1952 Unknown [id number] 1952 Unknown [id number] 1952 Unknown [id number] 1952 Unknown [id number] Social History Date Type Detail Facility Tobacco Never smoker [facility] Comment on above: denies current use Start: 01-20-2020 End: 09-05-2020 Sex Assigned At Male [facility] Start: 07-19-2021 End: 07-25-2023 Tobacco smoking status Never smoked tobacco (finding) [facility] Comment on above: denies current use Tobacco [facility] Start: 06-27-2015 Tobacco use and exposure Smokeless tobacco non-user [facility] Start: 09-05-2020 End: 06-25-2023 Alcohol intake Current non-drinker of alcohol (finding) [facility] Start: 01-20-2020 End: 09-05-2020 History of Social function [facility] Start: 1950 Sex Assigned At Not on file [facility] Medical Equipment Procedure Code Equipment Code Equipment Origin al Text Equipment Identifier Dates Mesh Prolene Squ are Flat [id number] Surgical Knit Nonabsorbable Nonreactive - [id number] Start: 08-12-2020 Functional Status Date Assessment Result Facility 04-15-2023 Functional Status N/A [facility] 05-17-2022 Functional Status N/A [facility] 11-16-2021 Functional Status N/A [facility] 10-05-2021 Functional Status N/A [facility] Clinical Notes 08-12-2020 to 07-30-2023 Nanci Miller APRN.[facility] - 06/25/2023 11:43 AM EDTPatient Nanci Gaxiola APRN.[facility] - 06/25/2023 11:06 AM EDTTelephone Encounter - Teresa Moore - 04/26/2023 1:09 PM EDT Note Date & Type Note Facility 07-30-2023 Note [facility] 06-27-2023 Hospital Discharg e instructions Follow Up Care 06/27/2023 14:46:38 With:Dougie Harmon DO, ONC Address: [facility] [address] [place] [phone]- [phone] Fax Business (1) When: Unknown Comments:f/u in 6 months.no imaigng.cbc, cmp, cea, iron studies, b12, foalte prior to f/u. [facility] 06-25-2023 Note HNO ID: [id number] Author: NANCI MILLER APRN.CNP Service: ? Author Type: Nurse Practitioner Type: Progress Notes Filed: 06/25/2023 11:47 Note Text: Outside referral for ARM. Scanned into [facility] 06-25-2023 Note HNO ID: [id number] Author: NANCI MILLER APRN.CNP Service: ? Author [...] use: No Phy (more content not included)... [facility] 06-25-2023 History of Presen t illness Narrative Outside referral for ARM. Scanned into [employer] documented in this encounter [facility] 06-25-2023 Instructions Nanci Miller APRN.CNP - 06/25/2023 [...] provider as planned. documented in this encounter [facility] 06-25-2023 History of Presen t illness Narrative [...] your referring provider as planned. Nanci Miller APRN.POWER TRANSFORMER INSPECTOR Pelvic Floor Colorectal Surgery I spent a total of 60 minutes on the date of the service which included preparing to see the patient, igsn-sl-[id number] patient care, completing clinical documentation, obtaining and/or reviewing separately obtained history, performing a medically appropriate examination, counseling and educating the patient/family/caregiver, ordering medications, tests, or procedures, and communicating results to the patient/family/caregiver. documented in this encounter [facility] 04-26-2023 Miscellaneous Notes Called and LVM regarding referral for Manometry by Kei Franco. documented in this encounter [facility] 01-23-2023 Note [facility] 01-23-2023 Note Review of Systems All other systems reviewed and are negative. PT JUST GETTING OVER COVID. FEELS GOOD, HE IS HOPING TO GO SOUTH SOON, BP ON TH LOWER SIDE TODAY, DOES NOT FEEL DIZZY [facility] 01-08-2023 Note [facility] 01-08-2023 Note [facility] 12-26-2022 Note [facility] 12-12-2022 Note [facility] 12-12-2022 Note [facility] 12-05-2022 Note [facility] 12-05-2022 Note [facility] 12-05-2022 Note [facility] 12-05-2022 Note [facility] 12-05-2022 Note [facility] 12-05-2022 Note [facility] 12-05-2022 Note [facility] 12-04-2022 Note [facility] 12-04-2022 Note [facility] 12-04-2022 Note Addendum created 1143 by Robin Pérez Intraprocedure Staff edited (Perfusion) [facility] 12-04-2022 Note [facility] 12-03-2022 Note [facility] 12-03-2022 Note [facility] 12-03-2022 Note [facility] 12-03-2022 Note [facility] 12-03-2022 Note [facility] 12-03-2022 Note [facility] 12-02-2022 Note [facility] 12-02-2022 Note This report has been cancelled. [facility] 12-02-2022 Note [facility] 12-01-2022 Note [facility] 12-01-2022 Note [facility] 12-01-2022 Note Chest tube placed at bedside per ICU MD. Patient signed consent and placed in chart. Patient tolerated procedure well. Patient Vitals are as charted. CXR ordered. Safety Maintained. [facility] 12-01-2022 Note [facility] 11-30-2022 Note [facility] 11-30-2022 Note [facility] 11-30-2022 Note [facility] 11-29-2022 Note [facility] 11-29-2022 Note [facility] 11-29-2022 Note [facility] 11-28-2022 Note [facility] 11-28-2022 Note [facility] 11-27-2022 Note [facility] 11-27-2022 Note [facility] 11-27-2022 Note [facility] 11-27-2022 Note [facility] 11-26-2022 Note [facility] 11-26-2022 Note [facility] 11-26-2022 Note [facility] 11-26-2022 Note [facility] 08-21-2022 Evaluation + Plan note Extrac lo from: [facility] Author:Aggie Hollingsworth Date: 08/21/22 Impression [...] * Vitamin B12 Level 06/27/[address] [facility]05-17-2023 Hospital Discharge instructions Follow Up Care 06/27/2022 14:31:43 With:Dougie Harmon DO ONC Address: [facility] [address] [place] [address] [phone]- [phone] Fax Business (1) When: Unknown Comments:ct a/p with contrast soon.f/u aftercbc, cmp, cea, iron studies, b12, foalte, lipase prior to f/u. [facility]04-06-2023 Hospital Discharge instructions Patient Education [...] who treats conditions of the digestive system (ux design lead). Follow these instructions at home: Take kmxf-bvj-kfwbuqo and prescription medicines only as told by [...] 08/27/2017 Document Revised: 01/10/2018 Document Reviewed: 10/15/2017 [employer] Patient Education 2020 [employer]. Follow Up Care 11/16/2021 08:43:43 With:Yusra Denis CNP Address: When:1 month [facility] 10-06-2022 Hospital Discharge instructions Patient [...] 10/24/2004 Document Revised: 05/15/2018 Document Reviewed: 05/15/2018 [employer] Patient Education basestone Follow Up Care 10/10/2021 11:02:12 With:Yusra Denis CNP Address: When:6 months [facility] 08-25-2022 Evaluation + Plan noteExtracted from: Title:CARMEN POSTOP Author:Dangelo Morel DO Date: 10/05/21 Plan Transfer/ Discharge: Patient can be discharged from PACU when criteria met. Condition good. Extracted from: Title:CARMEN PREOP Author:Dangelo Morel DO Date: Plan [place] [employer] Anesthesiologists (ASA) physical status classification: [...] PT 02/06/22 * PT 03/06/[address] [facility]08-25-2022 Hospital Discharge instructions Patient Education 10/05/2021 09:56:38 Colonoscopy, Care After Surgery Salam (CUSTOM) Colonoscopy Care After Surgery Please read the instructions outlined below and refer to this sheet in the next few weeks. These discharge instructions provide you with general information on caring for yourself [facility] Your doctor may also give you specific [...] HINOJOSA Address: [address] [place] [address] Business (1) When: Unknown Comments:OFFICE WILL CALL DATE AND TIME OF FOLLOW-UP APPT. [facility]06-08-2022 Hospital Discharge instructions Patient Education [...] Follow these instructions at home: Medicines Take jobj-vai-svcvbtx and prescription medicines only as told by your health care provider. If you were prescribed an antibiotic medicine, take it as told by your health care provider. Do notstop taking the antibiotic even if you start to feel better. Eating and drinking Follow any diet changes as told by your health care provider. Work with a diet and motor tune up specialist (dietitian) to create an eating plan [...] 01/25/2001 Document Revised: 06/24/2019 Document Reviewed: 06/24/2019 [employer] Patient Education 2020 [employer]. 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03-22-2022 Evaluation + Plan noteExtracted from: Title:- [facility] Author:Aggie Hollingsworth Date :05/02/21 Impression [...] Appointments Appointment Date:02/27/2022 07:30:00 AM Scheduled Provider: [facility] Appointment Type:Anticoagulation Remote 15 (FT) Appointment Date:05/17/2022 08:00:00 AM Scheduled Provider:Yusra Denis CNP Location:[facility] Appointment Type:BADH Follow Up Appointment Date:06/27/2022 01:30:00 PM Scheduled Provider:Dougie Harmon DO [facility] Appoint[facility] Type:ONC Office Visit 15 (FT) Future [...] PT 02/06/22 * PT 03/06/[address] [facility]07-02-2021 History of Past illness Narrative* [...] of this encounter (statuses as of 04/26/2023) [facility] Future Appointments Appointment Date:06/19/2021 [...] PT 02/06/22 * PT 03/06/[address] [facility] Future Appointments Appointment Date:06/26/2021 09:30:00 AM Scheduled Provider:Purnima Borden [facility] Appoint[facility] Type:ONC Office Visit 15 (FT) Future Scheduled Tests Laboratory* PT 03/07/21 * PT 04/04/21 * PT 05/02/21 * PT 05/30/21 * PT 06/27/21 * PT 07/25/21 * PT 08/22/21 * PT 09/19/21 * PT 10/17/21 * PT 11/14/21 * PT 12/12/21 * PT 01/09/22 * PT 02/06/22 * PT 03/06/[address] [facility] Future Appointments Appointment Date:08/08/2021 08:30:00 AM Scheduled Provider: [facility] Appointment Type:Anticoagulation Follow Up 15 (FT) Appointment Date:08/28/2021 12:50:00 PM Scheduled Provider: Location:[facility] Appointment Type:Surgery FT Appointment Date:12/28/2021 01:00:00 PM Scheduled Provider:Dougie Harmon DO [facility] Appoint[facility] Type:ONC Office Visit 15 (FT) Future [...] 01/09/22 * PT 02/06/22 * PT 03/06/22 [facility] Evaluation + Plan note Future Appointments Appointment Date:11/24/2021 09:30:00 AM Scheduled Provider: Location[facility] Appointment Type:Anticoagulation Follow Up 15 (FT) Appointment Date:12/28/2021 01:00:00 PM Scheduled Provider:Dougie Harmon DO [facility] Appointment Type:ONC Office Visit 15 (FT) Appointment Date:05/17/2022 08:00:00 AM Scheduled Provider:Yusra Denis CNP [facility] – [place] [facility] Appointment Type:BAD Follow Up Future [...] 01/09/22 * PT 02/06/22 * PT 03/06/22 [facility] Evaluation + Plan note Future Appointments Appointment Date:12/28/2021 01:00:00 PM Scheduled Provider:Dougie Harmon DO [facility] App[facility] Type:ONC Office Visit 15 (FT) Appointment Date:01/09/2022 09:00:00 AM Scheduled Provider: [facility] Appointment Type:Anticoagulation Follow Up 15 (FT) Appointment Date:05/17/2022 08:00:00 AM Scheduled Provider:Yusra Denis CNP Location:[facility] Appointment Type:[facility] Follow Up Future Scheduled Tests Laboratory* PT 03/07/21 * PT 04/04/21 * PT 05/02/21 * PT 05/30/21 * PT 06/27/21 * PT 07/25/21 * PT 08/22/21 * PT 09/19/21 * PT 10/17/21 * PT 11/14/21 * PT 12/12/21 * PT 01/09/22 * PT 02/06/22 * PT 03/06/[address] [facility] Future Appointments Appointment Date:01/09/2022 09:00:00 AM Scheduled Provider: [facility] Appointment Type:Anticoagulation Follow Up 15 (FT) Appointment Date:05/17/2022 08:00:00 AM Scheduled Provider:Yusra Denis CNP Location:[facility] [place] [facility] Appointment Type:BAD Follow Up Appointment Date:06/27/2022 01:30:00 PM Scheduled Provider:Dougie Harmon DO [facility] Appointment Type:ONC Office Visit 15 (FT) Future Scheduled Tests Laboratory* PT 03/07/21 * PT 04/04/21 * PT 05/02/21 * PT 05/30/21 * PT 06/27/21 * PT 07/25/21 * PT 08/22/21 * PT 09/19/21 * PT 10/17/21 * PT 11/14/21 * PT 12/12/21 * PT 01/09/22 * PT 02/06/22 * PT 03/06/[address] [facility] Future Appointments Appointment Date:06/01/2022 09:30:00 AM Scheduled Provider: [facility] Appointment Type:Anticoagulation Follow Up 15 (FT) Appointment Date:06/15/2022 08:00:00 AM Scheduled Provider:Yusra Denis CNP Location:[facility] [place] [facility] Appointment Type:BAD Follow Up Appointment Date:06/27/2022 02:00:00 PM Scheduled Provider:Dougie Harmon DO [facility] Appointment Type:ONC Office Visit 15 (FT) Future [...] PT 03/06/22 * Vitamin B12 Level 05/17/22 [facility] evaluation + Plan note Future Appointments Appointment Date:06/27/2022 08:20:00 AM Scheduled Provider:Yusra Denis CNP Location:[facility] [place] [facility] Appointment Type:BADH Follow Up Appointment Date:06/27/2022 02:00:00 PM Scheduled Provider:Dougie Harmon DO [facility] Appointment Type:ONC Office Visit 15 (FT) Appointment Date:07/10/2022 09:30:00 AM Scheduled Provider: [facility] Appointment Type:Anticoagulation Follow Up 15 (FT) Future [...] PT 03/06/22 * Vitamin B12 Level 05/17/22 [facility] Evaluation + Plan note Future Appointments Appointment Date:06/27/2023 02:00:00 PM Scheduled Provider:Dougie Harmon DO Location:.[facility]COLOGY Appointment Type:ONC Office Visit 15 (FT) Future Scheduled Tests Laboratory* PT 04/30/22 * PT 05/31/22 * PT 06/30/22 * Vitamin B12 Level 06/27/22 Radiology* CT Abdomen/Pelvis w/ + w/o Contrast 04/15/23 [facility] Evaluation + Plan note Future Appointments Appointment Date:04/23/2023 12:00:00 PM Scheduled Provider: Location:.[facility] Appointment Type:CT Abdomen/Pelvis Combo (FT) Appointment Date:06/27/2023 02:00:00 PM Scheduled Provider:Dougie Harmon DO Location:.ONCOLOGY Appointment Type:ONC Office Visit 15 (FT) Future Scheduled Tests Laboratory* PT 04/30/22 * PT 05/31/22 * PT 06/30/22 * Vitamin B12 Level 06/27/22 Radiology* CT Abdomen/Pelvis w/ + w/o Contrast 04/23/[address] [facility] [address] Future Appointments Appointment Date:06/27/2023 02:00:00 PM Scheduled Provider:Dougie Harmon DO Location:.ONCOLOGY Appointment Type:ONC Office Visit 15 (FT) Future Scheduled Tests Laboratory* PT 04/30/22 * PT 05/31/22 * PT 06/30/22 * Vitamin B12 Level 06/27/[address] [facility] Future Appointments Appointment Date:06/27/2023 02:00:00 PM Scheduled Provider:Dougie Harmon DO Location:.ONCOLOGY Appointment Type:ONC Office Visit 15 (FT) Future Scheduled Tests Laboratory* PT 06/30/22 * Vitamin B12 Level 06/27/[address] Future Appointments Appointment Date:07/25/2023 [...] 07/25/23 Radiology* CT Abdomen/Pelvis w/ Contrast 06/28/[address] [facility] Future Appointments Appointment Date:07/06/2023 10:00:00 AM Scheduled Provider: Location:[facility] Appointment Type:CT Abdomen/Pelvis Combo (FT) Appointment Date:07/25/2023 11:30:00 AM Scheduled Provider:Dougie Harmon [...] 07/25/23 Radiology* CT Abdomen/Pelvis w/ Contrast 07/06/[address] Future Appointments Appointment Date:07/25/2023 11:30:00 AM Scheduled Provider:Dougie Harmon DO Location:[facility]COLOG[facility] Appointment Type:ONC Office Visit 30 (FT) Future Scheduled Tests Laboratory* CBC w/ Auto Diff 07/25/23 * CEA 07/25/23 * Comprehensive Metabolic Panel 07/25/23 * Ferritin 07/25/23 * Folate Level 07/25/23 * Iron Level 07/25/23 * Iron Percent Saturation 07/25/23 * Lipase Level 07/25/23 * PT 06/30/22 * Transferrin 07/25/23 * Vitamin B12 Level 07/25/[address] Future Appointments Appointment Date:07/25/2023 11:30:00 AM Scheduled Provider:Dougie Harmon DO Location:.ONCOLOGY Appointment Type:ONC Office Visit 30 (FT) [facility] Future Scheduled Tests Laboratory* CBC w/ Auto Diff 06/02/24 * CEA 06/02/24 * Comprehensive Metabolic Panel 06/02/24 * Ferritin 06/02/24 * Folate Level 06/02/24 * Iron Level 06/02/24 * Iron Percent Saturation 06/02/24 * Transferrin 06/02/24 * Vitamin B12 Level 06/02/[address] [facility]* Diagnosis Abdominal bloating- Primary Flatulence, eructation, and gas pain Incontinence of feces with fecal urgency [facility] Diagnosis Abdominal bloating- Primary Flatulence, eructation, and gas pain Alternating constipation and diarrhea Other symptoms involving digestive system Personal history of rectal cancer Personal history of malignant neoplasm of rectum, rectosigmoid junction, and anus Low anterior resection syndrome [facility] Narrative No data available for this section [facility] Dis[facility] instructions No data available for this section [facility] No data available for this section [facility] CenterReason for referral (narrative)* Outpatient Procedure (Routine) - Pending Review Specialty Diagnoses / Procedures Referred By Contelzbieta t Referred To Contact [facility] Diagnoses Abdominal bloating Incontinence of feces with fecal urgency Procedures [facility] ANORECTAL MANOMETRY ANORECTAL MANOMETRY Nanci Miller, SONAM [address] [place] [address] [facility] [place] [address] [place] [address] Referral ID Status Reason Start Date Expiration Date Visits Requested Visits Authorized [id number] Pending Review Auto-Generat ed Referral 06/25/2023 06/24/2024 1 1 [facility] Summary Purpose Family History No Family [...] FoundDocuments on File Type Date Recorded 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 Advance Directive(s) 06/27/2018 11:11 AM Documents on File Type Date Recorded 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 anation Advance Directive(s) 06/27/2018 11:11 AM Hospital Course Note [address] [place] [address] Discharge Summary Signed:[id number] Name: LAKIA RODRIGUEZ MRUN: [id number] : 1950 Loc: 3S Age / Sex: 68/ M Adm Status: ADM Leonor Adm Date:06/03/19 Room/Bed: [facility] Date of Service - Date of Service Date: 06/05/19 - Time Spent on Discharge Minutes spent on discharge:: 45 - Hospital Summary Hospital Summary:: This is a pleasant 68-year-old male with a history of diabetes mellitus and colon cancer was brought into the emergency room by the spiral spring winder for further evaluation and management of a syncopal event. Patient was in his usual state of health until this afternoon. 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 He was taking the exit to get to the Highway around 4:30 PM after exchanging the trailer with his colleague. He felt like his truck is spinning around. The next thing he knew was spiral spring winder were knocking on the door. He was [...] section and content) DATE CREATED AUTHOR 01/23/2018 [facility] DATE CREATED AUTHOR AUTHOR'S ORGANIZ ATION 04/12/2020 [facility] DATE CREATED AUTHOR AUTHOR'S ORGANIZ ATION 12/23/2021 [facility] DATE CREATED AUTHOR AUTHOR'S ORGANIZ ATION 06/27/2023 [facility] DATE CREATED AUTHOR AUTHOR'S ORGANIZ ATION [facility]/2023 [facility] DATE CREATED AUTHOR AUTHOR'S ORGANIZ ATION 07/24/2023 [facility] DATE CREATED AUTHOR AUTHOR'S ORGANIZ ATION 07/28/2023 [facility] DATE CREATED AUTHOR AUTHOR'S ORGANIZ ATION 07/31/2023 [facility] Care Team (unrecognized sect ion and content) Ground Crew Supervisor Relationship Specialty Start Date End Date Cynthia Aguila CNP [address] [place] [address] PCP - General 08/05/18 Lakia Dyson MD [address] [place] [address] Referring Family Medicine 05/04/20 Ground Crew Supervisor Relationship Specialty Start Date End Date Cynthia Aguila CNP [address] [place] [address] PCP - General 08/05/18 Lakia Dyson MD [address] [place] [address] Referring Family Medicine 05/04/20 Ground Crew Supervisor Relationship Specialty Start Date End Date Cynthia Aguila CNP [address] [place] [address] PCP - General 08/05/18 Lakia Dyson MD [address] [place] [address] Referring Family Medicine 05/04/20 Source Comments (unrecognize d section and content) In the event this informatio n is protected by the Federal Confidentiality of Alcohol and Drug Abuse Patient Records regulations: The Federal rules restrict any use of the information to criminally investigate or prosecute any alcohol or drug abuse patient.[facility] the event this information is protected by the Federal Confidentiality of Alcohol and Drug Abuse Patient Records regulations: The Federal rules restrict any use of the information to criminally investigate or prosecute any alcohol or drug abuse patient.[facility] the event this information is protected by the Federal Confidentiality of Alcohol and Drug Abuse Patient Records regulations: The Federal rules restrict any use of the information to criminally investigate or prosecute any alcohol or drug abuse patient.[facility] FOR RECORDS PERTAINING TO PATIENTS WHO ARE [...] BE BASED ON THE PRIMARY CLINICAL RECORDS. [facility] [employer] [facility]. provides no warranty or guarantee of the accuracy or completeness of information in this document.
[2023-08-08 07:13] LABS: Basophils Percent Auto 0.3 % (0.2-2.0); Eosinophils Absolute Auto 0.3 10^3/uL (0.0-0.7); Eosinophils Percent Auto 4.4 % (0.9-7.0); Hematocrit 49.3 % (42.0-54.0); Immature Granulocytes Abs Auto 0.03 10^3/uL (0.00-0.03); Immature Granulocytes Pct Auto 0.5 % (0.0-0.5); Mean Corpuscular HGB Conc 32.5 g/dL (29.9-35.2); Mean Corpuscular Volume 92.5 fL (80.0-94.0); Mean Platelet Volume 10.6 fL (9.5-13.5); Monocytes Absolute Auto 0.5 10^3/uL (0.3-0.8); Monocytes Percent Auto 8.1 % (1.7-12.0); Neutrophils Absolute Auto 4.6 10^3/uL (1.4-6.5); Neutrophils Percent Auto 71.7 % (43.0-75.0); Platelet Count 181 10^3/uL (150-450); Red Blood Count 5.33 10^6/uL (4.70-6.10); Red Cell Distribution Width 14.6 % (11.0-15.0); White Blood Count 6.4 10^3/uL (4.0-11.0)
[2023-08-08 08:21] LABS: Alanine Aminotransferase 34 U/L (16-63); Albumin Globulin Ratio 1.2; Albumin Level 3.5 g/dL (3.4-5.0); Alkaline Phosphatase 103 U/L (46-116); Anion Gap 10.6; Aspartate Amino Transferase 22 U/L (15-37); BUN Creatinine Ratio 13.8; Bilirubin Total 0.7 mg/dL (0.2-1.0); Calcium 9.1 mg/dL (8.5-10.1); Carbon Dioxide 30.4 mmol/L (21.0-32.0); Chloride 107 mmol/L (98-107); Chol HDL Ratio 2.8; Cholesterol 142 mg/dL (<=200); Estimated GFR (African America >60 (>=60); Estimated GFR (Non-African Ame 51 (>=60); Glucose 155 mg/dL (74-106); HDL Cholesterol 50 mg/dL (40-60); LDL Cholesterol Calculated 63.2 mg/dL; Sodium 144 mmol/L (136-145); Total Protein 6.5 g/dL (6.4-8.2); Triglycerides 144 mg/dL (<=150); VLDL CHOLESTEROL 28.8 mg/dL
[2023-08-08 12:56] LABS: Estimated Average Glucose 148 mg/dL; Glycohemoglobin A1C 6.8 % (4.5-6.2)
== END 2023-08-08 06:50 | disposition home or self-care (01) ==
LOC: LAB 06:51
PROVIDERS: PCP Nurse Practitioner Family; Visit Provider Nurse Practitioner Family
DX: E78.5 Hyperlipidemia, unspecified (principal)
CPT/HCPCS: 36415; 80053; 80061; 83036; 85025

== ENCOUNTER 2023-08-12 00:29 | Outpatient (RCR) | payer MEDICARE, OTHER, SELFPAY | END 2023-09-11 09:31 | disposition home or self-care (01) | LOC: MM 00:29 | PROVIDERS: PCP Nurse Practitioner Family; Visit Provider Internal Medicine | DX: Z51.81 Encounter for therapeutic drug level monitoring (principal); Z79.01 Long term (current) use of 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; I48.20 Chronic atrial fibrillation, unspecified | CPT/HCPCS: 85610; G0463 ==

== ENCOUNTER 2023-09-12 00:28 | Outpatient (RCR) | payer MEDICARE, OTHER, SELFPAY | END 2023-10-11 09:13 | disposition home or self-care (01) | LOC: MM 00:28 | PROVIDERS: PCP Nurse Practitioner Family; Visit Provider Internal Medicine | DX: Z51.81 Encounter for therapeutic drug level monitoring (principal); Z79.01 Long term (current) use of 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 | CPT/HCPCS: 85610; G0463 ==

== ENCOUNTER 2023-10-01 14:15 | Outpatient (OUT) | payer MEDICARE, OTHER, SELFPAY | END 2023-10-01 14:16 | disposition home or self-care (01) | LOC: WC 14:16 | PROVIDERS: PCP Nurse Practitioner Family; Visit Provider Physician Assistant | DX: L97.911 Non-pressure chronic ulcer of unspecified part of right lower leg limited to breakdown of skin (principal) | CPT/HCPCS: G0463 ==

== ENCOUNTER 2023-10-14 00:46 | Outpatient (RCR) | payer MEDICARE, OTHER, SELFPAY | END 2023-11-11 23:19 | disposition home or self-care (01) | LOC: MM 00:46 | PROVIDERS: PCP Nurse Practitioner Family; Visit Provider Internal Medicine | DX: Z51.81 Encounter for therapeutic drug level monitoring (principal); Z79.01 Long term (current) use of 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; I48.20 Chronic atrial fibrillation, unspecified | CPT/HCPCS: 85610; G0463 ==

== ENCOUNTER 2023-11-12 01:18 | Outpatient (RCR) | payer MEDICARE, OTHER, SELFPAY | END 2023-12-12 23:07 | disposition home or self-care (01) | LOC: MM 01:18 | PROVIDERS: PCP Nurse Practitioner Family; Visit Provider Internal Medicine | DX: Z51.81 Encounter for therapeutic drug level monitoring (principal); Z79.01 Long term (current) use of 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 ==

== ENCOUNTER 2023-12-13 10:10 | Outpatient (RCR) | payer MEDICARE, OTHER, SELFPAY | END 2024-01-11 23:59 | disposition home or self-care (01) | LOC: MM 10:10 | PROVIDERS: PCP Nurse Practitioner Family; Visit Provider Internal Medicine | DX: Z51.81 Encounter for therapeutic drug level monitoring (principal); Z79.01 Long term (current) use of 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 ==

== ENCOUNTER 2024-01-12 10:31 | Outpatient (RCR) | payer MEDICARE, OTHER, SELFPAY | END 2024-02-11 09:55 | disposition home or self-care (01) | LOC: MM 10:31 | PROVIDERS: PCP Nurse Practitioner Family; Visit Provider Internal Medicine | DX: Z51.81 Encounter for therapeutic drug level monitoring (principal); Z79.01 Long term (current) use of 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 ==

== ENCOUNTER 2024-02-13 00:10 | Outpatient (RCR) | payer MEDICARE, OTHER, SELFPAY | END 2024-03-13 15:26 | disposition home or self-care (01) | LOC: MM 00:10 | PROVIDERS: PCP Nurse Practitioner Family; Visit Provider Internal Medicine | DX: Z51.81 Encounter for therapeutic drug level monitoring (principal); Z79.01 Long term (current) use of 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 | CPT/HCPCS: 85610 ==

== ENCOUNTER 2024-03-16 02:35 | Outpatient (RCR) | payer MEDICARE, OTHER, SELFPAY | END 2024-04-10 10:35 | disposition home or self-care (01) | LOC: MM 02:35 | PROVIDERS: PCP Nurse Practitioner Family; Visit Provider Internal Medicine | DX: Z51.81 Encounter for therapeutic drug level monitoring (principal); Z79.01 Long term (current) use of 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 ==

== ENCOUNTER 2024-04-11 07:18 | Outpatient (RCR) | payer MEDICARE, OTHER, SELFPAY | END 2024-05-08 10:08 | disposition home or self-care (01) | LOC: MM 07:18 | PROVIDERS: PCP Nurse Practitioner Family; Visit Provider Internal Medicine | DX: Z51.81 Encounter for therapeutic drug level monitoring (principal); Z79.01 Long term (current) use of 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 ==

== ENCOUNTER 2024-05-12 01:55 | Outpatient (RCR) | payer MEDICARE, OTHER, SELFPAY | END 2024-06-10 13:37 | disposition home or self-care (01) | LOC: MM 01:55 | PROVIDERS: PCP Nurse Practitioner Family; Visit Provider Internal Medicine | DX: Z51.81 Encounter for therapeutic drug level monitoring (principal); Z79.01 Long term (current) use of 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 | CPT/HCPCS: 85610; G0463 ==

== ENCOUNTER 2024-06-11 04:39 | Outpatient (RCR) | payer MEDICARE, OTHER, SELFPAY | END 2024-07-11 07:10 | disposition home or self-care (01) | LOC: MM 04:39 | PROVIDERS: PCP Nurse Practitioner Family; Visit Provider Internal Medicine | DX: Z51.81 Encounter for therapeutic drug level monitoring (principal); Z79.01 Long term (current) use of 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 ==

== ENCOUNTER 2024-07-12 08:18 | Outpatient (RCR) | payer MEDICARE, OTHER, SELFPAY | END 2024-08-06 15:03 | disposition home or self-care (01) | LOC: MM 08:18 | PROVIDERS: PCP Nurse Practitioner Family; Visit Provider Internal Medicine | DX: Z51.81 Encounter for therapeutic drug level monitoring (principal); Z79.01 Long term (current) use of 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 ==

== ENCOUNTER 2024-08-11 02:26 | Outpatient (RCR) | payer MEDICARE, OTHER, SELFPAY | END 2024-09-10 16:58 | disposition home or self-care (01) | LOC: MM 02:26 | PROVIDERS: PCP Nurse Practitioner Family; Visit Provider Internal Medicine | DX: Z51.81 Encounter for therapeutic drug level monitoring (principal); Z79.01 Long term (current) use of 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 | CPT/HCPCS: 85610; G0463 ==

== ENCOUNTER 2024-08-13 06:43 | Outpatient (OUT) | payer MEDICARE, OTHER, SELFPAY ==
--- OUTSIDE RECORDS SUMMARY | 2024-08-11 10:00 | XMS_ITS | Encounter Summary ---
Author Organization [facility] Address [address] [place] [address] Care Team Providers Care Oral Surgery Assistant Name Role Phone Shad Burden MD Unavailable Cynthia Cavazos CNP Primary Care Provider + [phone] Reason for Referral * Imaging (Routine) - Pending Review Specialty Diagnoses / Procedures Referred By Contelzbieta t Referred To Contact Cardiology Diagnoses Chronic systolic heart failure (CMS/HCC) Procedures Transthoracic echo (TTE) complete Vania Tate CNP [address] [place] [address] Phone: tel: fax: Referral ID Status Reason Start Date Expiration Date Visits Requested Visits Authorized [id number] Pending Review Perform Procedure 08/11/2024 08/11/2025 1 1 Reason for Visit * Reason Comments Congestive Heart Failure Coronary Artery Disease Hypertension Encounter Details Date Type Department Care Team (Late st Contact Info) Description 08/11/2024 10:00 AM EDT Office Visit [facility] [address] [place] [id number] Vania Tate CNP [address] [place] [address] Chronic systolic heart failure (CMS/HCC) (Primary Dx); Encounter for monitoring amiodarone therapy; Mixed hyperlipidemia; V-tach (CMS/HCC); ICD (implantable cardioverter-defibril lator), dual, in situ; Benign hypertensive heart disease with heart failure (CMS/HCC); History of DVT (deep vein thrombosis); Hx pulmonary embolism; Coronary artery ectasia Social History Tobacco Use Types Packs/Day Years Used Date Smoking Tobacco: Never Smokeless Tobacco: Never Alcohol Use Standard Drinks/Week Comments Never 0 (1 standard drink = 0.6 oz pur e alcohol) Humiliation, Afraid, Rape, and Kick questionnair e Answer Date Recorded Within the last year, have y ou been afraid of your partner or ex-partner? No 11/25/2022 Emotionally Abused Not on file 11/25/2022 Physically Abused Not on file 11/25/2022 Sexually Abused Not on file 11/25/2022 Overall Financial Resource Strain (CARDIA) Answe r Date Recorded How hard is it for you to pa y for the very basics like food, housing, medical care, and heating? Not hard at all 11/25/2022 [place] Safety & Environment Answer Date Rec orded Within the last year, have y ou been afraid of your partner or ex-partner? No 11/25/2022 Emotionally Abused Not on file 11/25/2022 Physically Abused Not on file 11/25/2022 Sexually Abused Not on file 11/25/2022 In the past year have you be en physically or sexually abused? Unrecognized value 11/25/2022 Transportation Answer Date Recorded In the past 12 months, has l ack of transportation kept you from medical appointments or from getting medications? No 11/25/2022 Lack of Transportation (Non-Medical) Not on file 11/25/2022 Housing Stability Vital Sign Answer Giovanni e Recorded Unable to Pay for Housing in the Last Year Not o n file 11/25/2022 Number of Places Lived in the Last Year Not on f ile 11/25/2022 In the last 12 months, was t here a time when you did not have a steady place to sleep or slept in a long-term (including now)? No 11/25/2022 Hunger Vital Sign Answer Date Recorded Within the past 12 months, y ou worried that your food would run out before you got the money to buy more. Never true 11/26/19 23 Ran Out of Food in the Last Year Not on file 11/25/2022 Sex and Gender Information Value Date Recorded Sex Assigned at Male 11/25/2022 9:16 AM EDT Legal Sex Male 11:53 PM EDT Gender Identity Male 11/25/2022 9:16 AM EDT Sexual Orientation Heterosexual or Straight 11/11 9:16 AM EDT documented as of this encounter Last Filed Vital Signs Vital Sign Reading Time Taken Comments Blood Pressure 99/61 08/11/2024 9:35 AM EDT Pulse 59 08/11/2024 9:35 AM EDT Temperature - - Respiratory Rate - - Oxygen Saturation 95% 08/11/2024 9:35 AM EDT Inhaled Oxygen Concentration - - Weight 93.9 kg (207 lb) 08/11/2024 9:35 AM EDT Height 170.2 cm (5' 7 ) 08/11/2024 9:35 AM EDT Body Mass Index 32.42 08/11/2024 9:35 AM EDT documented in this encounter Patient Instructions * Patient Instructions* Vania Tate CNP - 08/11/2024 10:00 AM EDT *Hold amiodarone at this time. *[facility] will call you to schedule a heart ultrasound. *Follow-up with Dr. Olsen in 3 months. documented in this encounter Progress Notes * Ame Donnelly MA - 08/11/2024 10:00 AM EDT Patient is here today for 1 year follow up. Patient states he is seeing a gastrologist at [facility] due to stomach bloating. Patient states he gets very constipated and would like to know if its from his medication. Patient states cardiac huffman he is feeling good. Patient denies chest pain, leg swelling, Patient complains of pain in his legs which comes and goeswith activity and without activity. Patient complains of OJEDA, fatigue. Review of Systems Constitutional: Positive for malaise/fatigue. Cardiovascular: Positive for dyspnea on exertion and leg swelling (bilateral leg pain). * Vania Tate CNP - 08/11/2024 10:00 AM EDT Images from the original note were not included. Cardiovascular Medicine [facility] SUBJECTIVE Chief Complaint Patient presents with Congestive Heart Failure Coronary Artery Disease Hypertension Shad Joseph is a 73 y.o. male here for follow-up. HPI PMHx: HFrEF s/p dual chamber ICD, NSVT, CAD, HTN, hx PE/DVT, factor V leiden, HLD, DM type II, CKD 08/11/2024 Patient is here today for 1 year follow up. Patient states he is seeing a gastrologist at [facility] due to stomach bloating. Patient states he gets very constipated and would like to know if its from his medication. Patient states cardiac huffman he is feeling good. Patient denies chest pain, leg swelling, Patient complains of pain in his legs which comes and goeswith activity and without activity. Patient complains of OJEDA, fatigue. He has OJEDA if he exerts himself to heavily. This is stable. He recently obtained a home in [place]. He plans to travel to this home in the winter. [place] will benoted as his permanent residence. He noted he was having diarrhea in [place]. Now he is having constipation issues. At his last visit, Dr. Olsen advised he stop amio but he has not done this yet. Denies palpitations, orthopnea, PND, syncope, bleeding issues. Last HPI per Dr. Olsen 07/30/2023 Shad Joseph is a 72 y.o. year old with past medical history of heart failure with reduced ejection fraction s/p ICD, hypertension, PE/DVT with factor V Leyden deficiency, hyperlipidemia, diabetes mellitus type 2, CKD who had been recently in the hospital and was also diagnosed with COVID. He was previously seen by me in November 2022 and at that time was initially evaluated in [facility] for nonsustained VT cardiac cath at that time did not reveal any significant CAD and he was takento the EP lab. Ventricular tachycardia was induced at that time and he subsequently underwent a dual-chamber ICD implant. He developed an iatrogenic right-sided pneumothorax due to movement of the RA lead. The RA lead was repositioned and since then he has done well with normal lead functions. Today's device check reveals good thresholds both at 0.6 V. No evidence of atrial fibrillation or any other arrhythmias. Patient here for 6 mo follow up and device check. Denies chest pain, SOB, and bleeding on warfarin.He gets intermittent palpitations and lightheadedness when he's constipated. C/o fatigue after getting a full nights sleep. he is currently GI issues which is being evaluated and is currently on amiodarone. he complains of being excessively cold and and I do not have any recent thyroid profile. 01/23/2023 He has been feeling well. He is hoping to travel to [place] in a couple weeks. He tested positive for COVID on 01/12/23. He is feeling better since then. Denies c/o CP, dyspnea, orthopnea, PND, LE edema, dizziness/LH, palpitations, syncope. Patient Active Problem List Diagnosis V-tach (CMS/HCC) Acute systolic heart failure (CMS/HCC) Presence of automatic (implantable) cardiac defibrillator ADAM (acute kidney injury) Anticoagulation management encounter Chronic anticoagulation Stage 3 chronic kidney disease (CMS/HCC) Coronary artery calcification Essential hypertension Factor V Leiden H/O diabetes mellitus History of pulmonary embolism History of DVT (deep vein thrombosis) Personal history of other venous thrombosis and embolism Hypoalbuminemia Hypo-osmolality and hyponatremia Moderate persistent asthma with (acute) exacerbation Muscle weakness (generalized) Obesity, Class I, BMI 30-34.9 Other disorders of glycoprotein metabolism Other disorders of plasma-protein metabolism, not elsewhere classified Postoperative pain Post-operative state Pulmonary embolus (CMS/HCC) Malignant neoplasm of rectum (CMS/HCC) Type 2 diabetes mellitus without complication, without long-term current use of insulin (CMS/HCC) Acid reflux Atherosclerotic heart disease of quechan coronary artery without angina pectoris Bloating Cardiomyopathy (CMS/HCC) Chronic atrial fibrillation (CMS/HCC) Colon polyp Diverticulosis Hemorrhoids History of colon polyps History of rectal cancer Hypercoagulable state Pure hypercholesterolemia Schatzki's ring Constipation Coronary artery ectasia Past Medical History: Diagnosis Date Abnormal ECG Arrhythmia Atrial fibrillation (CMS/HCC) Cancer (CMS/HCC) Cardiomyopathy (CMS/HCC) CHF (congestive heart failure) (CMS/HCC) Chronic kidney disease Coronary artery disease Deep vein thrombosis (CMS/HCC) Diabetes mellitus (CMS/HCC) GERD (gastroesophageal reflux disease) Heart valve disease Hypercholesteremia Hypertension Pulmonary embolism (CMS/HCC) Family History Problem Relation Name Age of Onset Coronary artery disease Mother Hypertension Father Bone cancer Father Social History Tobacco Use Smoking status: Never Smokeless tobacco: Never Substance Use Topics Alcohol use: Never Drug use: Never Allergies Allergen Reactions House Dust Shortness of breath Ragweed Shortness of breath Penicillins Unknown As child OBJECTIVE Visit Vitals BP 99/61 (BP Location: Left arm, Patient Position: Sitting) Pulse 59 Ht 1.702 m (5' 7 ) Wt 93.9 kg (207 lb) SpO2 95% BMI 32.42 kg/m?? Smoking Status Never BSA 2.11 m?? Medications: Current Outpatient Medications: atorvastatin (Lipitor) 10 mg tablet, Take 10 mg by mouth 1 (one) time each day., Disp: , Rfl: dapagliflozin propanediol (Farxiga) 10 mg, Take 1 tablet (10 mg) by mouth in the morning., Disp: 90tablet, Rfl: 3 glipiZIDE XL (Glucotrol XL) 5 mg 24 hr tablet, Take 5 mg by mouth in the morning. Do not crush, chew, or split., Disp: , Rfl: metoprolol succinate XL (Toprol-XL) 50 mg 24 hr tablet, Take 1 tablet (50 mg) by mouth in the morning for 91 doses. Do not crush or chew. Do not start before December 06, 2022., Disp: 30 tablet, Rfl: 0 multivitamin tablet, Take 1 tablet by mouth in the morning., Disp: , Rfl: pantoprazole (ProtoNix) 40 mg EC tablet, Take 40 mg by mouth before breakfast. Do not crush, chew, or split., Disp: , Rfl: warfarin (Coumadin) 4 mg tablet, 1 (one) time each day at the same time., Disp: , Rfl: furosemide (Lasix) 20 mg tablet, Lasix 20mg PRN for wt gain 2lbs in 1 day or 5lbs in 1 week. (Patient not taking: Reported on 08/11/2024), Disp: 30 tablet, Rfl: 0 sacubitril-valsartan (Entresto) 24-26 mg tablet, Take 0.5 tablets by mouth two times daily., Disp: , Rfl: Physical Exam Constitutional: Appearance: Normal appearance. He is normal weight. HENT: Head: Normocephalic and atraumatic. Right Ear: External ear normal. Left Ear: External ear normal. Eyes: Extraocular Movements: Extraocular movements intact. Pupils: Pupils are equal, round, and reactive to light. Neck: Vascular: No carotid bruit. Cardiovascular: Rate and Rhythm: Normal rate and regular rhythm. Pulses: Normal pulses. Heart sounds: Normal heart sounds. Pulmonary: Effort: Pulmonary effort is normal. Breath sounds: Normal breath sounds. Abdominal: General: Bowel sounds are normal. Palpations: Abdomen is soft. Musculoskeletal: General: Normal range of motion. Cervical back: Neck supple. Right lower leg: No edema. Left lower leg: No edema. Skin: General: Skin is warm and dry. Neurological: General: No focal deficit present. Mental Status: He is alert and oriented to person, place, and time. Psychiatric: Mood and Affect: Mood normal. Behavior: Behavior normal. Thought Content: Thought content normal. Judgment: Judgment normal. Labs: BMP 01/08/23 Cr 1.53, BUN 24, K 4.1, eGFR 45, K 4.1, Na 141 BMP 12/16/2022 Cr 1.5, BUN 26, eGFR 46, K 4.4, Na 137 CBC 12/05/2022 Component Ref Range & Units 3 wk ago (12/05/22) 3 wk ago (12/04/22) 3 wk ago (12/03/22) 3 wk ago (12/02/22) 3 wk ago (12/01/22) 3 wk ago (11/30/22) 3 wk ago (11/30/22) Auto WBC 4.00 - 10.60 10*3/uL 6.95 6.97 10.62 High 13.62 High 23.51 High 9.42 8.24 RBC 4.20 - 5.70 10*6/uL 4.45 4.29 4.60 4.51 5.25 4.17 Low 4.71 Hemoglobin 13.0 - 17.0 g/dL 13.2 12.7 Low 13.5 13.1 CM 15.4 12.3 Low 13.9 Hematocrit 39.0 - 55.0 % 39.4 39.0 41.0 40.0 46.6 37.2 Low 41.7 MCV 82.0 - 98.0 fL 88.5 90.9 89.1 88.7 88.8 89.2 88.5 MCH 27.0 - 33.0 pg 29.7 29.6 29.3 29.0 29.3 29.5 29.5 MCHC 32.0 - 35.0 g/dL 33.5 32.6 32.9 32.8 33.0 33.1 33.3 RDW 11.5 - 15.0 % 14.3 14.9 14.9 15.0 14.7 14.5 14.2 Platelets 150 - 400 10*3/uL 132 Low 130 Low 134 Low 129 Low 181 172 183 Immature Platelet Fraction % 0.8 - 6.3 % 2.2 3.8 BMP 12/05/2022 Component Ref Range & Units 3 wk ago (12/05/22) 3 wk ago (12/04/22) 3 wk ago (12/03/22) 3 wk ago (12/02/22) 3 wk ago (12/01/22) 3 wk ago (11/30/22) 3 wk ago (11/30/22) Sodium 136 - 145 mmol/L 134 Low 134 Low 130 Low 132 Low 133 Low 138 135 Low Potassium 3.5 - 5.1 mmol/L 4.3 4.5 4.3 4.3 5.0 3.6 4.0 Chloride 98 - 107 mmol/L 104 105 101 103 101 110 High 102 CO2 21 - 31 mmol/L 24 23 21 22 21 22 27 BUN 7 - 25 mg/dL 28 High 37 High 47 High 42 High 32 High 17 20 Creatinine 0.70 - 1.30 mg/dL 1.20 1.32 High 1.78 High 1.73 High 1.78 High 1.25 1.39 High Glucose 70 - 100 mg/dL 148 High 144 High 194 High 168 High 260 High 211 High 171 High Calcium 8.6 - 10.3 mg/dL 9.3 8.9 9.6 9.6 10.4 High 7.1 Low 9.5 Anion Gap 7 - 20 mmol/L 10 11 12 11 16 10 10 eGFR >60.0 mL/min/1.73m*2 65.1 58.0 Low CM 40.5 Low CM 41.9 Low CM 40.5 Low CM 61.9 CM 54.5 Low Testing/Procedures: No results found for this or any previous visit (from the past 4464 hours). ECHO 12/02/2022 Left Ventricle: Global left ventricular systolic function is severely reduced. EF range is estimated at 15 % -20 %.Diffuse global hypokinesis. Right Ventricle: Right ventricular systolic function appears reduced. Doppler studies suggest mildly elevated right sided pressures. Tricuspid Valve: Mild tricuspid regurgitation. Pericardium: No pericardial effusion. Cardiovascular Laboratory Report 11/27/2022 Hemodynamics: RA 10 RV 34/7, 12 PA 34/14 [20] PCWP 10 TPG 10 AO 162/79 [105] Cardiac output /cardiac index 7.2/3.54 AO sat /PA sat 97%/77% LEFT VENTRICULOGRAPHY: This was not performed; ejection fraction is 30% by echocardiography FINAL IMPRESSIONS: Ectasia of the coronary arteries with no significant stenoses Moderately reduced global left ventricular systolic function by noninvasive imaging Mildly elevated right-sided heart pressures Normal pulmonary capillary wedge pressure Normal cardiac output/cardiac index Inability to wire the left radial artery RECOMMENDATIONS: Aggressive cardiovascular factor modification Optimal medical therapy for coronary disease should include aspirin, high intensity statin therapy,a beta-curtis and a RAAS inhibitor Therapy for heart failure with reduced ejection fraction should include a beta- curtis, RAAS inhibitor, an SGLT2 inhibitor and spironolactone Consider nonischemic etiologies for the patient's heart failure with reduced ejection fraction Close observation for development of vascular complications given challenging radial anatomy Further recommendations deferred to the inpatient services ECHO 11/26/22 Left Ventricle: The left ventricle is normal size. Global left ventricular systolic function is severely reduced. The EF is 30 % visually. Left ventricular wall thickness is normal. Diffuse global hypokinesis. Grade1, mild diastolic dysfunction (abnormal relaxation). Right Ventricle: The right ventricle is normal in size. Normal right ventricular systolic function. Unable to assessright sided pressures due to lack of measurable tricuspid regurgitation. Left Atrium: The left atrium is normal in size. Overall Conclusions: Due to suboptimal imaging, Lumason contrast was administered for better delineation of the left ventricular apex No significant valvular abnormalities ASSESSMENT/PLAN: Diagnosis Plan 1. Chronic systolic heart failure (CMS/HCC) Transthoracic echo (TTE) complete Comprehensive metabolic panel CBC Magnesium sacubitril-valsartan (Entresto) 24-26 mg tablet 2. Encounter for monitoring amiodarone therapy Comprehensive metabolic panel Magnesium TSH3 Reflex to FT4 3. Mixed hyperlipidemia Lipid panel 4. V-tach (CMS/HCC) 5. ICD (implantable cardioverter-defibrillator), dual, in situ 6. Benign hypertensive heart disease with heart failure ([facility]) 7. History of DVT (deep vein thrombosis) 8. Hx pulmonary embolism 9. Coronary artery ectasia Shad Joseph is a 73 y.o. male with past medical history of hypertension, PE/ DVT (chronic warfarin), hyperlipidemia, type 2 diabetes mellitus and colon cancer. With 11/26/22 admission treated for inducible nonsustained VT, nonischemic cardiomyopathy (EF 30%) and iatrogenic right pneumothorax s/pimplant of left DC ICD. He also underwent a coronary angiogram which noted ectasia but no significant stenosis. #Nonsustained VT with presyncope, with normal potassium --s/p DC ICD ([employer]) 11/30/22 complicated by right pneumothorax and RA lead malfunction --Started Amiodarone 11/24/22 --12/02 loss of capture of RA lead concerning for migration --12/04/23 successful repositioning of RA lead -At his last visit, Dr. Olsen advised that he stop taking amio and see how he does. He did not do this. He c/o ongoing issues with abdominal bloating and constipation which may be a side effect of amio. Will stop amio today and see if this helps his sx's. -Continue BB #New onset HFrEF, EF 20-30% by TTE 11/26/22; NYHA III B in setting of right pneumothorax - 11/26/22 [facility] found normal wedge pressures. #Nonischemic Cardiomyopathy, likely VT -Follow-up ECHO ordered -GDMT: continue farxiga, Toprol, Entresto -Continue PRN lasix #HTN -Low normal BP today. Asymptomatic. -Continue current medication regimen #CAD - 11/26/22 C found ectasia with no significant coronary artery stenosis. -He denies any c/o CP or dyspnea -Continue statin, BB. Pt is on warfarin, no ASA to reduce bleeding risk #Renal insufficiency, BL Creat unclear, likely 1.2-1.5 range -Follow-up labs ordered #Hx PE/DVT, factor V, on chronic warfarin Follow up in about 3 months (around 11/11/2024). Vania Tate CNP [facility] Cardiovascular Medicine documented in this encounter Plan of Treatment Upcoming Encounters Date Type Department Care Team (Late st Contact Info) Description 08/18/2024 1:15 PM EDT Ancillary Procedure [facility] [address] [place] [address] 11/17/2024 9:30 AM EDT Office Visit [facility] [address] [place] [facility] [place] [address] Spencer Olsen MD [address] [place] [address] Scheduled Orders Name Type Priority Associated Diagnoses Orde r Schedule Transthoracic echo (TTE) complete Echocardiography Routine Chronic systolic heart failure ([facility]) Expected: 08/11/2024 (Approximate), Expires: 08/11/2026 Comprehensive metabolic panel Lab Routine Chronic systolic heart failure ([facility]) Encounter for monitoring amiodarone therapy Expected: 08/11/2024 (Approximate), Expires: 08/11/2025 CBC Lab Routine Chronic systolic heart failure ([facility]) Expected: 08/11/2024 (Approximate), Expires: 08/11/2025 Magnesium Lab Routine Chronic systolic heart failure ([facility]) Encounter for monitoring amiodarone therapy Expected: 08/11/2024 (Approximate), Expires: 08/11/2025 Lipid panel Lab Routine Mixed hyperlipidemia Expected: 08/11/2024 (Approximate), Expires: 08/11/2025 TSH3 Reflex to FT4 Lab Routine Encounter for monitoring amiodarone therapy Expected: 08/11/2024 (Approximate), Expires: 08/11/2025 documented as of this encounter Visit Diagnoses Diagnosis Chronic systolic heart failure ([facility])- Primary Chronic systolic heart failure Encounter for monitoring amiodarone therapy Mixed hyperlipidemia V-tach (CMS/HCC) Paroxysmal ventricular tachycardia ICD (implantable cardioverter-defibrillator), dual, in situ Benign hypertensive heart disease with heart failure (CMS/HCC) History of DVT (deep vein thrombosis) Hx pulmonary embolism Coronary artery ectasia documented in this encounter Care Teams Oral Surgery Assistant Relationship Specialty Start Date End Date Cynthia Cavazos CNP [address] [place] [address], [facility] [place], [place] [id number] PCP - General Family Medicine 12/12/22 Shad Burden MD [address] [place], [place] [address] [place] [address] Referring Physician 11/25/22 documented as of this encounter
--- OUTSIDE RECORDS SUMMARY | 2024-08-11 10:00 | XMS_ITS | Encounter Summary ---
Author Organization [facility] Address [address] [place] [address] Care Team Providers Care Lapping Machine Tender Name Role Phone Shad Burden MD Unavailable Cynthia Cavazos CNP Primary Care Provider + [phone] Reason for Referral * Imaging (Routine) - Pending Review Specialty Diagnoses / Procedures Referred By Mark rodríguez Referred To Contact Cardiology Diagnoses Chronic systolic heart failure (CMS/HCC) Procedures Transthoracic echo (TTE) complete Vania Tate CNP [address] [place] [address] Phone: tel: fax: Referral ID Status Reason Start Date Expiration Date Visits Requested Visits Authorized [id number] Pending Review Perform Procedure 08/11/2024 08/11/2025 1 1 Encounter Details Date Type Department Care Team (Late st Contact Info) Description 08/11/2024 10:00 AM EDT Office Visit [facility] at [facility] [address] [place] [address] Vania Tate CNP [address] [place] [address] Chronic systolic heart failure (CMS/HCC) (Primary Dx); Encounter for monitoring amiodarone therapy; Mixed hyperlipidemia Social History Tobacco Use Types Packs/Day Years [...] place to sleep or slept in a [facility] (including now)? No 11/25/2022 Hunger Vital Sign [...] AM EDT *Hold amiodarone at this time. *[facility] will call you to schedule a heart ultrasound. *Follow-up with Dr. Olsen in 3 months. documented in this encounter Plan of Treatment Upcoming Encounters Date Type Department Care Team (Late st Contact Info) Description 08/18/2024 1:15 PM EDT Ancillary Procedure [facility] [address] [place] [address] 11/17/2024 9:30 AM EDT Office Visit [facility] [address] [place] [address] Spencer Olsen MD [address] [place] [phone] Scheduled Orders Name Type Priority Associated Diagnoses Orde r Schedule Transthoracic echo (TTE) complete Echocardiography Routine Chronic systolic heart failure (CMS/HCC) Expected: 08/11/2024 (Approximate), Expires: 08/11/2026 Comprehensive metabolic panel Lab Routine Chronic systolic heart failure (CMS/HCC) Encounter for monitoring amiodarone therapy Expected: 08/11/2024 (Approximate), Expires: 08/11/2025 CBC Lab Routine Chronic systolic heart failure ([facility]/HCC) Expected: 08/11/2024 (Approximate), Expires: 08/11/2025 Magnesium Lab Routine Chronic systolic heart failure ([facility]) Encounter for monitoring amiodarone therapy Expected: 08/11/2024 (Approximate), Expires: 08/11/2025 Lipid panel Lab Routine Mixed hyperlipidemia Expected: 08/11/2024 (Approximate), Expires: 08/11/2025 TSH3 Reflex to FT4 Lab Routine Encounter for monitoring amiodarone therapy Expected: 08/11/2024 (Approximate), Expires: 08/11/2025 documented as of this encounter Visit Diagnoses Diagnosis Chronic systolic heart failure ([facility])- Primary Chronic systolic heart failure Encounter for monitoring amiodarone therapy Mixed hyperlipidemia documented in this encounter Care Teams Lapping Machine Tender Relationship Specialty Start Date End Date Cynthia Cavazos CNP [address] [place] [address] [place] [address] PCP - General Family Medicine 12/12/22 Shad Burden MD [address] [place], [place] [address] [address] Referring Physician 11/25/22 documented as of this encounter
--- OUTSIDE RECORDS SUMMARY | 2024-08-11 11:29 | XMS_ITS | Encounter Summary ---
Author Organization [facility] Address [address] [place] [address] Care Team Providers Care Evaporator Name Role Phone Shad Burden MD Primary Care Provider [phone] Encounter Details Date Type Department Care Team (Late st Contact Info) Description 04/25/2023 Orders Only [facility] [address] [place] [address] Shaikh Headley MD [address] [place] [phone] Social History Tobacco Use Types Packs/Day Years Used Date Smoking Tobacco: Never Assessed Sex and Gender Information Value Date Recorded Sex Assigned at Not on file Legal Sex Male 10:59 PM EDT Gender Identity Not on file Sexual Orientation Not on file documented as of this encounter Plan of Treatment Not on file documented as of this encounter Visit Diagnoses Not on filedocumented in this encounter Care Teams Evaporator Relationship Specialty Start Date End Date Shad Burden MD PCP - General Family Medicine 09/12/23 documented as of this encounter
--- OUTSIDE RECORDS SUMMARY | 2024-08-11 11:29 | XMS_ITS | Encounter Summary ---
Author Organization [facility] Address [address] [place] [address] Care Team Providers Care Event Staff Name Role Phone Shad Burden MD Unavailable Cynthia Cavazos CNP Primary Care Provider + [phone] Encounter Details Date Type Department Care Team (Late st Contact Info) Description 06/04/2024 Orders Only [facility] [address] [place] [address] Janice Retana MD [address] [place] [address] Social History Tobacco Use Types Packs/Day Years [...] and heating? Not hard at all 11/25/2022 [facility] Answer Date Rec orded [...] place to sleep or slept in a detention (including now)? No 11/25/2022 Hunger Vital Sign [...] AM EDT documented as of this encounter Plan of Treatment Upcoming Encounters Date Type Department Care Team (Late st Contact Info) Description 08/18/2024 1:15 PM EDT Ancillary Procedure [address] [address] 11/17/2024 9:30 AM EDT Office Visit [facility] [address] [place] [address] Spencer Olsen MD [address] [place] [address] documented as of this encounter Procedures Procedure Name Priority Date/Time Associated Diagnosis Comments CARDIAC DEVICE CHECK - REMOTE - ICD Routine 06/04/2024 12:00 AM EDT documented in this encounter Results * Cardiac device check - Remote ICD (06/04/2024 12:00 AM EDT) Anatomical Region Laterality Modality Other 06/04/2024 Maria Victoriar Nikky Retana MD CV IMPLANTABLE CARDIAC DEVICE PROCEDURES Final Result documented in this encounter Visit Diagnoses Not on filedocumented in this encounter Care Teams Event Staff Relationship Specialty Start Date End Date Cynthia Cavazos CNP [address] [place] [address] [place] [address] PCP - General Family Medicine 12/12/22 Shad Burden MD [address] [place] [address] Referring Physician 11/25/22 documented as of this encounter
--- OUTSIDE RECORDS SUMMARY | 2024-08-11 11:29 | XMS_ITS | Encounter Summary ---
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 Procedures T4, free Vania Tate CNP [address] [place] [address] Phone: tel: fax: Referral ID Status Reason Start Date Expiration Date V isits Requested Visits Authorized [id number] Pending Review 08/06/2024 08/06/2025 1 1 Encounter Details Date Type Department Care Team (Late st Contact Info) Description 08/06/2024 Orders Only [facility] Heart at [facility] [address] [place] [address] Vero López MA 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 current use of amiodarone Expected: 08/06/2024 (Approximate), Expires: 08/06/2025 TSH Lab Routine 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 current use of amiodarone Expected: 08/06/2024 (Approximate), Expires: 08/06/2025 T4, free Lab Routine 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 current use of amiodarone Expected: 08/06/2024 (Approximate), Expires: 08/06/2025 Hepatic function panel Lab Routine [facility] current use of amiodarone Expected: 08/06/2024 (Approximate), Expires: 08/06/2025 XR chest 2 views Imaging Routine [facility] current use of amiodarone Expected: 08/06/2024, Expires: 08/06/2025 documented as of this encounter Visit Diagnoses Diagnosis 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
--- OUTSIDE RECORDS SUMMARY | 2024-08-11 11:29 | XMS_ITS | Clinical Summary ---
Author Organization [facility] Address [address] [place] [address] Care Team Providers Care Salesperson Wigs Name Role Phone Shad Burden MD Primary Care Provider [phone] Allergies Active Allergy Reactions Criticality Noted Date Comments Mixed Ragweed Shortness of breath High 12/05/2015 Penicillins Other 09/12/2023 Medications albuterol HFA 90 mcg/act inhaler INHALE 2 PUFFS BY MOUTH EVERY 6 HOURS NEEDED FOR SHORTNESS OF BREATH OR WHEEZING Active amLODIPine (Norvasc) 2.5 MG tablet Take 1 tablet every day by oral route for 90 days. Active atorvastatin (Lipitor) 10 MG tablet Take 1 tablet every day by oral route for 90 days. Active benzonatate (Tessalon) 100 MG capsule TAKE 1 CAPSULE BY MOUTH TWICE A DAY NEEDED FOR COUGH 4 Active [facility] Gentle Laxative 10 MG suppository INSERT 1 SUPPOSITORY RECTALLY DAILY NEEDED FOR CONSTIPATION 4 Active Farxiga 10 MG Take 10 mg by mouth in the morning. Active furosemide (Lasix) 20 MG tablet Lasix 20mg PRN for wt gain 2lbs in 1 day or 5lbs in 1 week. 3 Active glipiZIDE (Glucotrol) 5 MG tablet TAKE 1 TABLET BY MOUTH EVERY DAY 30 MINUTES BEFORE BREAKFAST 4 Active hydroCHLOROthia zide (HYDRODiuril) 25 MG tablet Take 25 mg by mouth in the morning. Active metFORMIN XR (Glucophage-XR) 500 MG 24 hr tablet Take 500 mg by mouth in the morning. Take with meals. Active methocarbamol (Robaxin) 500 MG tablet TAKE 1 TABLET BY MOUTH EVERY 8 HOURS NEEDED FOR MUSCLE PAIN FOR 4 DAYS 03/21/202 4 Active Multiple Vitamin (Multi-Vitamin) tablet Take 1 tablet by mouth in the morning. Active pantoprazole (ProtoNix) 40 MG EC tablet Take 1 tablet every day by oral route for 90 days. Active warfarin (Coumadin) 4 MG tablet Active Active Problems No known active problems Social History Tobacco Use Types Packs/Day Years Used Date Smoking Tobacco: Unknown Tobacco Cessation:Counseling Given: Yes Sex and Gender Information Value Date Recorded Sex Assigned at Not on file Legal Sex Male 10:59 PM EDT Gender Identity Not on file Sexual Orientation Not on file Last Filed Vital Signs Vital Sign Reading Time Taken Comments Blood Pressure 123/82 09/12/2023 2:34 PM EDT Pulse 73 09/12/2023 2:34 PM EDT Temperature - - Respiratory Rate 16 09/12/2023 2:34 PM EDT Oxygen Saturation - - Inhaled Oxygen Concentration - - Weight 90.7 kg (200 lb) 09/12/2023 2:34 PM EDT Height 170.2 cm (5' 7 ) 09/12/2023 2:34 PM EDT Body Mass Index 31.32 09/12/2023 2:34 PM EDT Plan of Treatment Health Maintenance Due Date Last Done Comments CT Colonography 1952 Colonoscopy 1952 Colorectal Cancer Screening 1952 FIT-DNA 1952 FIT 1952 FOBT 1950 Sigmoidoscopy 1950 Influenza Vaccine (Season Ended) 2024 01/15/2022, 01/11/2021, 11/14/2019, Additional history exists Pneumococcal Vaccine: 65+ Years Completed 10/31/2018, 10/22/2017, 01/30/2016 Insurance [employer] Care Teams Salesperson Wigs Relationship Specialty Start Date End Date Shad Burden MD PCP - General Family Medicine 09/12/23
--- OUTSIDE RECORDS SUMMARY | 2024-08-11 11:29 | XMS_ITS ---
Author Organization [facility] Address [address] [place] [address] Care Team Providers Care Filling Room Operator Name Role Phone Shad Burden MD Unavailable Cynthia Cavazos CNP Primary Care Provider [phone] Active Problems Problem Noted Date Diagnosed Date Constipation 08/11/2024 Acid reflux 07/30/2023 Atherosclerotic heart diseas e of [place] coronary artery without angina pectoris 07/30/2023 Bloating 07/30/2023 Cardiomyopathy 07/30/2023 Chronic atrial fibrillation 07/30/2023 Colon polyp 07/30/2023 Diverticulosis 07/30/2023 Hemorrhoids 07/30/2023 History of colon polyps 07/30/2023 History of rectal cancer 07/30/2023 Hypercoagulable state 07/30/2023 Pure hypercholesterolemia 07/30/2023 Schatzki's ring 07/30/2023 V-tach 11/25/2022 Acute systolic heart failure 11/25/2022 Presence of automatic (implantable) cardiac defi brillator 11/25/2022 Post-operative state 08/19/2020 12/12/2022 Obesity, Class I, BMI 30-34.9 08/17/2020 Coronary artery calcification 01/02/2019 Stage 3 chronic kidney disease 07/11/2016 1 02/11/2022 Overview (12/12/2022): Last Assessment & Plan: Baseline creatinine ~1.3 H/O diabetes mellitus 07/11/2016 12/12/2022 History of pulmonary embolism 03/11/2016 ADAM (acute kidney injury) 02/28/20162022 Personal history of other venous thrombosis and embolism 02/28/2016 12/12/2022 Hypo-osmolality and hyponatremia 02/28/2016 12/12/2022 Moderate persistent asthma with (acute) exacerba tion 02/28/2016 12/12/2022 Muscle weakness (generalized) 02/28/2016 Other disorders of glycoprotein metabolism 02/2712/12/2022 Other disorders of plasma-pr otein metabolism, not elsewhere classified 02/28/2016 12/12/2022 Malignant neoplasm of rectum 02/28/201602/2022 Hypoalbuminemia 02/03/2016 12/12/2022 Postoperative pain 02/03/2016 12/12/2022 Anticoagulation management encounter 01/31/2016 12/12/2022 Pulmonary embolus 01/30/2016 12/12/2022 Overview (12/12/2022): Last Assessment & Plan: History of PE due to factor V Leiden On Warfarin for prevention Chronic anticoagulation 01/11/2016 12/13/19 Essential hypertension 01/11/2016 Overview (12/12/2022): Last Assessment & Plan: Treated with amlodipine and lisinopril Factor V Leiden 01/11/2016 12/12/2022 Type 2 diabetes mellitus wit hout complication, without long-term current use of insulin 01/11/2016 12/12/2022 Overview (12/12/2022): Last Assessment & Plan: Managed with glipizide Most recent A1c 7.5 in 2019 History of DVT (deep vein thrombosis) 06/27/2015 12/12/2022 Current Treatment and Therapy Plans No current plan information found. Past Treatment and Therapy Plans No past plan information found. Lifetime Dose Tracking * Chemical Lifetime Dose Automatic Entry Manual Entr y Fluoro Time 6.9 minutes 0 minutes 6.9 minutes Air Kerma 338.77 mGy 0 mGy 338.77 mGy
--- OUTSIDE RECORDS SUMMARY | 2024-08-11 11:29 | XMS_ITS | Encounter Summary ---
Author Organization [facility] Address [address] [place] [address] Care Team Providers Care Product Manager Name Role Phone Shad Burden MD Unavailable Cynthia Cavazos CNP Primary Care Provider [phone] Encounter Details Date Type Department Care Team (Late st Contact Info) Description 06/21/2024 Orders Only [facility] [address] [place] [address] Spencer Olsen MD [address] [place] [address] Social History Tobacco Use Types [...] and heating? Not hard at all 11/25/2022 [place] Safety & Environment Answer Date Rec orded [...] place to sleep or slept in a alf (including now)? No 11/25/2022 Hunger Vital Sign [...] Description 08/18/2024 1:15 PM EDT Ancillary Procedure [facility] [address] [place] [address] 11/17/2024 9:30 AM EDT Office Visit [facility] [address] [place] [address] Spencer Olsen MD [address] [place] [address] documented as of this encounter Procedures Procedure Name Priority Date/Time Associated Diagnosis Comments CARDIAC DEVICE CHECK - REMOTE - ICD Routine 06/21/2024 12:00 AM EDT documented in this encounter Results * Cardiac device check - Remote ICD (06/21/2024 12:00 AM EDT) Anatomical Region Laterality Modality Other 06/21/2024 Spencer Olsen MD CV IMPLANTABLE CARDIAC DEVICE [place] OCEDURES Final Result documented in this encounter Visit Diagnoses Not on filedocumented in this encounter Care Teams Product Manager Relationship Specialty Start Date End Date Cynthia Cavazos CNP [address] [place] [address] [place] [address] PCP - General Family Medicine 12/12/22 Shad Burden MD [address] [place] [address] Referring Physician 11/25/22 documented as of this encounter
--- OUTSIDE RECORDS SUMMARY | 2024-08-11 11:29 | XMS_ITS | Patient Health Record ---
Author Organization Cory [facility] II, [place], [place] Address [address] [facility] [address] [place] [id number] Care Team Providers Care Psychiatric Security Nurse Name Role Phone Juan HAYES MD, PA, Cory Unavailable Allergies Allergen (clinical drug ingredient) Drug/Non Drug Allergy documented on EMR Reaction Allergy Type Onset Date Status Penicillin Unknown Drug Allergy Active Pollen Pollen Unknown Allergy Active Ragweed Unknown Allergy Active Reason For Referral No Information Medications Medication SIG (Take, Route, Frequency, Duration) Notes Start Date End Date Status Multivitamin - 1 tablet Orally Once a day; Duration: 30 day(s) Active Metoprolol Succinate ER 50 MG 1 tablet Orally Once a day; Duration: 30 day(s) Active glipiZIDE XL 5 MG 1 tablet with food Orally Once a day; Duration: 30 day(s) Active Albuterol Sulfate HFA 108 (90 Base) MCG/ACT 1 puff as needed Inhalation every 4 hrs Active Warfarin Sodium 4 MG 1 tablet Orally Onc e a day; Duration: 30 day(s) Active Sacubitril-Valsartan 24-26 MG 1 tablet Orally Twice a day; Duration: 30 day(s) Active Pantoprazole Sodium 40 MG 1 tablet Orall y Once a day; Duration: 30 day(s) Active Furosemide 20 MG 1 tablet Orally Once a day; Duration: 30 day(s) Active Dapagliflozin Propanediol 10 MG 1 tablet Orally Once a day; Duration: 30 day(s) Active Atorvastatin Calcium 10 MG 1 tablet Oral ly Once a day; Duration: 30 day(s) Active Amiodarone HCl 400 MG 1 tablet Orally On ce a day; Duration: 30 day(s) Active Social History Tobacco Use: Social History Observation Description Date Details (start date - stop date) Never Smoker NA - NA Alcohol Screen Question Answer Notes Did you have a drink containing alcohol in the p ast year? No Points 0 Interpretation Negative Smoking Form Question Answer Notes Are you a: nonsmoker Problems Problem Type SNOMED Code ICD Code Onset Dates Problem Status W/U Status Risk Notes Problem Type II diabetes mellitus without complication (609636694) Type 2 diabetes mellitus without complications (E11.9) Active confirmed Problem Essential hypertensi on (84179983) Essential (primary) hypertension (I10) Active confirmed Problem Atherosclerotic hear t disease of n[place] coronary artery without angina pectoris (812513654068639) Atherosclerotic heart disease of n[place]olai coronary artery without angina pectoris (I25.10) Active confirmed Problem Cardiomyopathy (16315453) Cardiomyopathy, unspecified (I42.9) Active confirmed Problem Long-term current us e of anticoagulant (214724266) termite helper (current) use of 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 (Z79.01) Active confirmed Problem Automatic implantabl e cardiac defibrillator in situ (859225608) Presence of automatic (implantable) cardiac defibrillator (Z95.810) Active confirmed Problem Pure hypercholesterolemia (092971263) Pure hypercholesterole debby, unspecified (E78.00) Active confirmed Problem Chronic atrial fibrillation (disorder) (098273055) Chronic atrial fibrillation, unspecified (I48.20) Active confirmed Vital Signs Heart Rate 60 /min 11/14/2023 Blood pressure diastolic 78 mm Hg 11/14/2023 Height 66 in 11/14/2023 Blood pressure systolic 128 mm Hg 11/14/2023 Weight 199 lbs 11/14/2023 BMI 32.12 kg/m2 11/14/2023 Encounters Encounter Location Date Provider Diagnosis Cory [place] [address] [phone] 11/14/2023 Cory Martinez Atherosclerotic hear t disease of nikolai coronary artery without angina pectoris I25.10 ; Cardiomyopathy, unspecified I42.9 ; Chronic atrial fibrillation, unspecified I48.20 ; USP (current) use of 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 Z79.01 ; Presence of automatic (implantable) cardiac defibrillator Z95.810 ; Essential (primary) hypertension I10 ; Pure hypercholesterolemia, unspecified E78.00 and Type 2 diabetes mellitus without complications E11.9 Assessments Encounter Date Diagnosis (ICD Code) Assessment Notes Treatment Notes Treatment Clinical Notes Section Notes 11/14/2023 Atherosclerotic heart disease of nikolai coronary artery without angina pectoris (ICD-10 - I25.10) Pt doing well/ continue current meds 11/14/2023 Cardiomyopathy, unspecified (ICD-10 - I42.9) Pt doing well/ continue current meds 11/14/2023 Chronic atrial fibrillation, unspecified (ICD-10 - I48.20) Pt doing well/ continue current meds 11/14/2023 USP (current) use of 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 (ICD-10 - Z79.01) Pt doing well/ continue current meds 11/14/2023 Presence of automatic (implantable) cardiac defibrillator (ICD-10 - Z95.810) Pt doing well/ continue current meds 11/14/2023 Essential (primary) hypertension (ICD-10 - I10) Pt doing well/ continue current meds 11/14/2023 Pure hypercholesterolemi a, unspecified (ICD-10 - E78.00) Pt doing well/ continue current meds 11/14/2023 Type 2 diabetes mellitus without complications (ICD-10 - E11.9) Pt doing well/ continue current meds Plan Of Treatment Next Appt Details Provider Name:Cory kat, 11/17/2024 02:00:00 PM, [address] [place] [address], [address], [place], [place], [id number], Insurance Providers Payer Name Payer Address Payer Phone Subscriber Number Group Number Insured Name Patient Relationship to Insured Coverage Start Date Coverage End Date Medicare [address] [place] [address] [id number] Shad Joseph Self - patient is the insured Medical [place] [address] [place] [id number] Shad Joseph Self - patient is the insured Medical (General) History Medical History History ICD Code coronary artery disease cardiomyopathy deep vein thrombosis pulmonary embolism AICD (defibrillator) - Narrow QRS hyperlipidemia diabetes mellitus V-tach Atrial fibrillation Colon cancer Covid + last Jan Surgical History Surgery Date(Month/Year) Left Heart Cath- Ectasia with no sig CAD 11/26/2022 Dual Chamber AICD Implant (Brian Gottlieb) - [employer]- Dx: NSVT, CHF 11/28/2022 AICD Lead Revision 12/03/2022
--- OUTSIDE RECORDS SUMMARY | 2024-08-11 11:29 | XMS_ITS | Clinical Summary ---
Author Organization [facility] Address [address] [place] [address] Care Team Providers Care Clinical Resource Director Name Role Phone Shad Burden MD Unavailable Cynthia Cavazos CNP Primary Care Provider [phone] Allergies Active Allergy Reactions Criticality Noted Date Comments House Dust Shortness of breath High 12/03/2022 Penicillins Unknown 11/25/2022 As child Ragweed Shortness of breath High 12/05/2015 Medications atorvastatin (Lipitor) 10 mg tablet Take 10 mg by mouth 1 (one) time each day. 09/09/19 Active pantoprazole (ProtoNix) 40 mg EC tablet Take 40 mg by mouth before breakfast. Do not crush, chew, or split. Active glipiZIDE XL (Glucotrol XL) 5 mg 24 hr tablet Take 5 mg by mouth in the morning. Do not crush, chew, or split. Active multivitamin tablet Take 1 tablet by mouth in the morning. Active metoprolol succinate XL (Toprol-XL) 50 mg 24 hr tabletIndicatio ns:V-tach (CMS/HCC) Take 1 tablet (50 mg) by mouth in the morning for 91 doses. Do not crush or chew. Do not start before December 06, 2022. 30 tablet 12/07/19 Active furosemide (Lasix) 20 mg tabletIndicatio ns:Acute systolic heart failure (CMS/HCC) Lasix 20mg PRN for wt gain 2lbs in 1 day or 5lbs in 1 week. 30 tablet 12/06/19 Active Additional Information Patient not taking.Reported on 08/11/2024 warfarin (Coumadin) 4 mg tablet 1 (one) time each day at the same time. Active amiodarone (Pacerone) 200 mg tabletIndicatio ns:Persistent atrial fibrillation (CMS/HCC) Take 1 tablet (200 mg) by mouth once daily as directed. 90 tablet 1 02/20/19 Active dapagliflozin propanediol (Farxiga) 10 mgIndications:A cute on chronic systolic heart failure (CMS/HCC) Take 1 tablet (10 mg) by mouth in the morning. 90 tablet 3 05/01/19 25 2025 Active sacubitril-vals ksenia (Entresto) 24-26 mg tabletIndicatio ns:Chronic systolic heart failure (CMS/HCC) Take 0.5 tablets by mouth two times daily. 08/12/19 25 2025 Active albuterol (Proventil HFA) 90 mcg/actuation inhalerIndicati ons:Mild intermittent asthma, unspecified whether complicated Inhale 2 puffs every 4 (four) hours if needed for wheezing or shortness of breath. 6.7 g 12/06/192024 Discontinued amiodarone (Pacerone) 400 mg tabletIndicatio ns:Paroxysmal atrial fibrillation (CMS/HCC) Take 1 tablet (400 mg) by mouth once daily as directed. 90 tablet 3 01/03/20 23 2024 Discontinued(M ed List Cleanup) sacubitril-vals ksenia (Entresto) 24-26 mg tabletIndicatio ns:Chronic systolic heart failure (CMS/HCC) Take 1 tablet by mouth two times daily. 180 tablet 3 05/01/19 25 2024 Discontinued Active Problems Problem Noted Date Diagnosed Date Constipation 08/11/2024 Acid reflux 07/30/2023 Atherosclerotic heart diseas e of [place] coronary artery without angina pectoris 07/30/2023 Bloating [...] of DVT (deep vein thrombosis) 06/27/2015 12/12/2022 Encounters Date Type Department Care Team Description 08/11/2024 10:00 AM EDT Office Visit [facility] [address] [facility] [place] [address] Vania Tate CNP Chronic systolic heart failure (CMS/HCC) (Primary Dx); Encounter for monitoring amiodarone therapy; Mixed hyperlipidemia 08/06/2024 Orders Only [facility] [address] [place] [address] 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 amiodarone (Primary Dx) 07/10/2024 4:30 PM EDT Ancillary Procedure [facility] [address] [place] [address] Pre-operative cardiovascular examination, ICD in place 07/05/2024 Orders Only [facility] [address] [place] [address] Janice Retana MD 07/02/2024 9:15 PM EDT Ancillary Procedure [facility] [address] [place] [address] Pre-operative cardiovascular examination, ICD in place 06/21/2024 Orders Only [facility] [address] [place] [address] Spencer Olsen MD 06/09/2024 9:05 AM EDT Ancillary Procedure [facility] [address] [facility] [place] [address] Pre-operative cardiovascular examination, ICD in place 06/04/2024 Orders Only [facility] [address] [facility] [place] [address] Janice Retana MD from Last 3 Months Family History Medical History Relation Name Comments Bone cancer Father Hypertension Father Coronary artery disease Mother Relation Name Status Comments Father Mother Social History Tobacco Use Types Packs/Day Years Used Date Smoking Tobacco: Never Smokeless Tobacco: Never Tobacco Cessation:Counseling Given: Not Answered Alcohol Use Standard Drinks/Week Comments Never 0 [...] place to sleep or slept in a fci (including now)? No 11/25/2022 Hunger Vital Sign [...] Heterosexual or Straight 11/11 9:16 AM EDT Last Filed Vital Signs Vital Sign Reading Time Taken Comments Blood Pressure 99/61 08/11/2024 9:35 AM EDT Pulse 59 08/11/2024 9:35 AM EDT Temperature 36.7 C (98 F) 12/05/2022 12:00 PM EDT Respiratory Rate 12 12/05/2022 12:00 PM EDT Oxygen Saturation 95% 08/11/2024 9:35 AM EDT Inhaled Oxygen Concentration - - Weight 93.9 kg (207 lb) 08/11/2024 9:35 AM EDT Height 170.2 cm (5' 7 ) 08/11/2024 9:35 AM EDT Body Mass Index 32.42 08/11/2024 9:35 AM EDT Plan of Treatment Upcoming Encounters Date Type Department Care Team (Late st Contact Info) Description 08/18/2024 1:15 PM EDT Ancillary Procedure [facility] [address] [place] [address] 11/17/2024 9:30 AM EDT Office Visit [facility] [address] [place] [address] Spencer Olsen MD [address] [place] [address] Health Maintenance Due Date Last Done Comments Diabetes: Hemoglobin A1C 1950 Medicare Annual Wellness (AWV) 1950 Diabetes: Retinopathy Screening 1962 Depression Screening 1964 Diabetes: Urine Protein Screening 11/05/1971 Fall Risk Screening 2017 Zoster Vaccines (2 of 2) 03/12/2022 01/15/2022 COVID-19 Vaccine (4 - season) 2023 01/18/2021, 07/22/2020, 06/30/2020 Influenza Vaccine (#1) 2024 , 01/15/2022, 01/11/2021, Additional history exists Adult Tetanus 06/27/2030 06/27/2020 Sigmoidoscopy Discontinued 09/16/2015 Colonoscopy Discontinued 10/05/2021, 03/02/2017 Colorectal Cancer Screening Discontinued Pneumococcal Vaccine: 50+ Years Completed 10/02/2023, 10/31/2018, 10/22/2017, Additional history exists CT Colonography Discontinued FIT-DNA Discontinued FIT Discontinued FOBT Discontinued HIB Vaccines Aged Out No longer eligi ble based on patient's age to complete this topic HPV Vaccines Aged Out No longer eligi ble based on patient's age to complete this topic IPV Vaccines Aged Out No longer eligi ble based on patient's age to complete this topic Meningococcal B Vaccine Aged Out No l onger eligible based on patient's age to complete this topic Meningococcal Vaccine Aged Out No marta lars eligible based on patient's age to complete this topic Rotavirus Vaccines Aged Out No longer eligible based on patient's age to complete this topic Medical Devices Implanted Type Area Substance Abuse Prevention Coordinator Device Identifier Shelf Expiration Date Model / Serial / Lot Rubina Ramirez Df4-Dr - [id number] - [id number] Implanted:Qty: 1 on 11/29/2022 by Spencer Olsen MD at [facility] ICD [employer] [id number] 09/24/2024 D23 3 / [id number] / Ingevity+ Is-1 Bi Positive Fix Ra/Rv 52cm Implanted:Qty: 1 on 11/29/2022 by Spencer Olsen MD at [facility] Lead [employer] [id number] 10/20/2024 784 1 / [id number] / [place] 4 Front Implanted:Qty: 1 on 11/29/2022 by Spencer Olsen MD at [facility] [id number] 10/07/2024 067 2 / [id number] / Procedures Procedure Name Priority Date/Time Associated Diagnosis Comments CARDIAC DEVICE CHECK CHECK - REMOTE Routine 07/17/2024 3:35 PM EDT Pre-operative cardiovascular examination, ICD in place CARDIAC DEVICE CHECK CHECK - REMOTE Routine 07/17/2024 2:17 PM EDT Pre-operative cardiovascular examination, ICD in place CARDIAC DEVICE CHECK - REMOTE - ICD Routine 07/05/2024 12:00 AM EDT CARDIAC DEVICE CHECK CHECK - REMOTE Routine 06/23/2024 5:01 PM EDT Pre-operative cardiovascular examination, ICD in place CARDIAC DEVICE CHECK - REMOTE - ICD Routine 06/21/2024 12:00 AM EDT CARDIAC DEVICE CHECK - REMOTE - ICD Routine 06/04/2024 12:00 AM EDT CARDIAC DEVICE CHECK - REMOTE - ICD Routine 05/12/2024 11:12 AM EDT Pre-operative cardiovascular examination, ICD in place from Last 3 Months Results * CARDIAC DEVICE CHECK - REMOTE - ICD (07/17/2024 3:35 PM EDT) Only the most recent of4 resultswithin the time period is included. Spencer Olsen MD CV IMPLANTABLE CARDIAC DEVICE NC OCEDURES Final Result CPACS * Cardiac device check - Remote ICD (07/05/2024 12:00 AM EDT) Only the most recent of3 resultswithin the time period is included. Anatomical Region Laterality Modality Other 07/05/2024 Janice Retana MD CV IMPLANTABLE CARDIAC DEVICE PROCEDURES Final Result from Last 3 Months Insurance MEDICARE [employer] Advance Directives * Full Code (Latest Code Status on File) Date Activated Date Inactivated Comments 11/25/2022 6:19 AM 12/05/2022 8:54 PM Care Teams Clinical Resource Director Relationship Specialty Start Date End Date Cynthia Cavazos CNP [address] [place] [address] [place], [place] [phone] PCP - General Family Medicine 12/12/22 Shad Burden MD [address] [place], [place] [address] [address] Referring Physician 11/25/22
--- OUTSIDE RECORDS SUMMARY | 2024-08-11 11:29 | XMS_ITS | Encounter Summary ---
Author Organization [facility] Address [address] [place] [address] Care Team Providers Care Small Arms Repairer Name Role Phone Shad Burden MD Unavailable Cynthia Cavazos CNP Primary Care Provider [phone] Encounter Details Date Type Department Care Team (Late st Contact Info) Description 07/05/2024 Orders Only [facility] [address] [place] [address] Janice Retana MD [address] [place] [address] Social History Tobacco Use Types [...] and heating? Not hard at all 11/25/2022 MD Safety & Environment Answer Date Rec orded [...] place to sleep or slept in a longterm (including now)? No 11/25/2022 Hunger Vital Sign [...] Description 08/18/2024 1:15 PM EDT Ancillary Procedure [address] [address] 11/17/2024 9:30 AM EDT Office Visit [facility] [address] [place] [address] Spencer Olsen MD [address] [place] [address] documented as of this encounter Procedures Procedure Name Priority Date/Time Associated Diagnosis Comments CARDIAC DEVICE CHECK - REMOTE - ICD Routine 07/05/2024 12:00 AM EDT documented in this encounter Results * Cardiac device check - Remote ICD (07/05/2024 12:00 AM EDT) Anatomical Region Laterality Modality Other 07/05/2024 Maria Victoriar Nikky Retana MD CV IMPLANTABLE CARDIAC DEVICE PROCEDURES Final Result documented in this encounter Visit Diagnoses Not on filedocumented in this encounter Care Teams Small Arms Repairer Relationship Specialty Start Date End Date Cynthia Cavazos CNP [address] [place] [address] [place] [address] PCP - General Family Medicine 12/12/22 Shad Burden MD [address] [place] [address] Referring Physician 11/25/22 documented as of this encounter
--- OUTSIDE RECORDS SUMMARY | 2024-08-11 11:29 | XMS_ITS | Encounter Summary ---
Author Organization [facility] Address [facility] [place] [address] Care Team Providers Care Lead Burner Apprentice Name Role Phone AdrielNatalie Primary Care Provider Keon Solorzano DO Primary Care Provider Cynthia Cavazos CNP Primary Care Provider + Shad Burden MD Unavailable [phone] Source Comments In the event this information is protected by the Federal Confidentiality of Alcohol and Drug AbusePatient Records regulations: The Federal rules restrict any use of the information to criminally investigate or prosecute any alcohol or drug abuse patient.[facility] Encounter Details Date Type Department Care Team (Late st Contact Info) Description 09/14/2015 Abstract Radiation Oncology [address] [place] [address] Lizzeth Ferrell (Res)(Hist) [address] [place] [address] Social History Tobacco Use Types Packs/Day Years Used Date Smoking Tobacco: Never Smokeless Tobacco: Never Alcohol Use Standard Drinks/Week Comments No 0 (1 standard drink = 0.6 oz pur e alcohol) Sex and Gender Information Value Date Recorded Sex Assigned at Not on file Legal Sex Male 9:34 AM EDT Gender Identity Not on file Sexual Orientation Not on file documented as of this encounter Plan of Treatment Not on file documented as of this encounter Visit Diagnoses Not on filedocumented in this encounter Care Teams Lead Burner Apprentice Relationship Specialty Start Date End Date Natalie Morel PCP - General Family Medicine 06/21/15 04/15/16 Keon Rivera DO PCP - General Family Medicine 04/16/16 06/15/18 Cynthia Cavazos CNP [address] [place], [place] [phone] PCP - General 08/05/18 Shad Burden MD [address] [place], [place] [address] [phone] Referring Family Medicine 05/04/20 documented as of this encounter
--- OUTSIDE RECORDS SUMMARY | 2024-08-11 11:29 | XMS_ITS | Encounter Summary ---
Author Organization [facility] Address [address] [place] [address] Care Team Providers Care Anode Rebuilder Name Role Phone Cynthia Cavazos ISIDRA Primary Care Provider + Shad Burden MD Unavailable [phone] Source Comments In the event this information is protected by the Federal Confidentiality of Alcohol and Drug AbusePatient Records regulations: The Federal rules restrict any use of the information to criminally investigate or prosecute any alcohol or drug abuse patient.[facility] Encounter Details Date Type Department Care Team (Late st Contact Info) Description 08/12/2020 [facility] [address] [place] [address] Jalil Maloney MD [address] [place] [address] Social History Tobacco Use Types Packs/Day Years Used Date Smoking Tobacco: Never Smokeless Tobacco: Never Alcohol Use Standard Drinks/Week Comments No 0 (1 standard drink = 0.6 oz pur e alcohol) PHQ-2 Answer Date Recorded PHQ-2 score 0 08/04/2019 Area Deprivation Index Answer Date Lawrence rded National Score (1-100), lower number is lower ri sk Not on file 01/20/2020 State Score (1-10), lower number is lower risk N ot on file 01/20/2020 Data from: https://www.neighborhoodatlas.[facility]/. Last address used for calculation Not on file 01/20/2020 Sex and Gender Information Value Date Recorded Sex Assigned at Not on file Legal Sex Male 9:34 AM EDT Gender Identity Not on file Sexual Orientation Not on file COVID-19 Exposure Response Date Recorded In the last month, have you been in contact with someone who was confirmed or suspected to have Coronavirus / COVID-19? No / Unsure 08/12/2020 7:31 AM EDT documented as of this encounter Functional Status * Are you deaf or do you have serious difficulty hearing? Answer Date of Assessment Author No 07/25/2016 4:50 PM EDT Aggie Ackerman RN * Are you blind or do you have serious difficulty seeing, even when wearing glasses? Answer Date of Assessment Author No 07/25/2016 4:50 PM EDT Aggie Ackerman RN * Do you have serious difficulty walking or climbing stairs? Answer Date of Assessment Author No 07/25/2016 4:50 PM EDT Aggie Ackerman RN * Do you have difficulty dressing or bathing? Answer Date of Assessment Author No 07/25/2016 4:50 PM EDT Aggie Ackerman RN * Because of a physical, mental, or emotional condition, do you have difficulty doing errands alone such as visiting a doctor's office or shopping? Answer Date of Assessment Author No 07/25/2016 4:50 PM EDT Aggie Ackerman RN documented as of this encounter Mental Status * Because of a physical, mental, or emotional condition, do you have serious difficulty concentrating, remembering, or making decisions? Answer Entry Date Author No 07/25/2016 4:50 PM EDT Aggie Ackerman RN documented in this encounter Plan of Treatment Not on file documented as of this encounter Visit Diagnoses Not on filedocumented in this encounter Care Teams Anode Rebuilder Relationship Specialty Start Date End Date Cynthia Cavazos CNP [address] [place] [address] PCP - General 08/05/18 Shad Burden MD [address] [place] [address] Referring Family Medicine 05/04/20 documented as of this encounter
--- OUTSIDE RECORDS SUMMARY | 2024-08-11 11:29 | XMS_ITS | Clinical Summary ---
Author Organization [facility] Address [facility] [place] [address] Care Team Providers Care Retirement Specialist Name Role Phone No, Physician Primary Care Provider Unavailabl e Allergies Active Allergy Reactions Criticality Noted Date Comments Penicillins 06/19/2015 Medications NAPROXEN SODIUM (ALEVE ORAL) Take by mouth. Active metFORMIN (GLUCOPHAGE-XR) 500 MG 24 hr tablet Take 500 mg by mouth daily with breakfast. Active hydrochlorothiaz po (HYDRODIURIL) 25 MG tablet Take 25 mg by mouth daily. Active Social History Tobacco Use Types Packs/Day Years Used Date Smoking Tobacco: Never Sex and Gender Information Value Date Recorded Sex Assigned at Not on file Legal Sex Male 4:59 AM EDT Gender Identity Not on file Sexual Orientation Not on file Last Filed Vital Signs Vital Sign Reading Time Taken Comments Blood Pressure 158/99 06/19/2015 1:17 PM EDT Pulse 99 06/19/2015 1:17 PM EDT Temperature 37.6 C (99.7 F) 06/19/2015 1:17 PM EDT Respiratory Rate 18 06/19/2015 1:17 PM EDT Oxygen Saturation 97% 06/19/2015 1:17 PM EDT Inhaled Oxygen Concentration - - Weight 88.9 kg (196 lb) 06/19/2015 1:17 PM EDT Height 170.2 cm (5' 7 ) 06/19/2015 1:17 PM EDT Body Mass Index 30.7 06/19/2015 1:17 PM EDT Plan of Treatment Not on file Insurance [facility] MEDICARE PART A & B PART A CLAIMS [address] [address] [place] [address] Care Teams Retirement Specialist Relationship Specialty Start Date End Date No, Physician [facility] PCP - General 06/19/15
--- OUTSIDE RECORDS SUMMARY | 2024-08-11 11:29 | XMS_ITS | Clinical Summary ---
Author Organization [facility] Address [address] [place], [place] [id number] Care Team Providers Care Eyelet Row Marker Name Role Phone Cynthia Cavazos CNP Primary Care Provider [phone] Shad Burden MD Unavailable Allergies Active Allergy Reactions Criticality Noted Date Comments Penicillins Unknown 06/22/2015 Ragweed Shortness of Breath 12/05/[address] (PROTONIX) 40 mg tablet Take 1 tablet by mouth DAILY (6 AM). 0 7 Active loperamide (IMODIUM) 2 mg cap(s) TAKE 2 CAPSULES BY MOUTH BEFORE MEALS AND AT BEDTIME 5 7 Active glipiZIDE (GLUCOTROL XL) 2.5 mg 24 hr tablet Take 2.5 mg by mouth once daily. 11 9 Active lisinopril 2.5 mg tablet Take 1 tablet by mouth once daily. 1 Active amLODIPine (NORVASC) 2.5 mg tablet Take 1 tablet by mouth once daily. 1 Active atorvastatin (LIPITOR) 10 mg tablet Take 1 tablet by mouth once daily. 1 Active acetaminophen (TYLENOL) 500 mg tablet Take 2 tablets by mouth every 6 hours as needed for pain. 1 Active calcium carbonate (TUMS) 500 mg chew Take 1 tablet by mouth three times daily as needed (GERD). 1 Active enoxaparin (LOVENOX) 100 mg/mL syrg Inject 0.9 mL subcutaneously q 24 HR. 1 Active warfarin (COUMADIN) 4 mg tablet Take 1 tablet by mouth daily as directed. 1 Active oxyCODONE IR (ROXICODONE) 5 mg immediate release tablet Take 1 tablet by mouth every 6 hours as needed. 1 Active magnesium hydroxide (MOM) 400 mg/5 mL suspension Take 30 mL by mouth once daily as needed. 1 Active ipratropium-al buterol (DUONEB) 0.5 mg-3 mg(2.5 mg base)/3 mL nebu Inhale 3 mL as instructed every 4 hours as needed for wheezing/shortness of breath. 1 Active guaiFENesin (MUCINEX) 600 mg 12 hr tablet Take 1 tablet by mouth every 12 hours as needed (help with congestion). 1 Active docusate sodium (COLACE) 100 mg capsule Take 1 capsule by mouth twice daily. While taking narcotic pain medication 0 1 Active Active Problems Problem Noted Date Diagnosed Date Post-operative state 08/19/2020 Obesity, Class I, BMI 30-34.9 08/17/2020 Coronary artery calcification 01/02/2019 Chronic systolic heart failure 10/10/2018 Assessment & Plan (08/09/2020 2:24 PM EDT): LVEF 46% in 2019 Grade I diastolic dysfunction 10% fixed defect in LAD territory on NM stress test H/O: HTN (hypertension) 07/11/2016 H/O diabetes mellitus 07/11/2016 Stage 3 chronic kidney disease 07/11/2016 Assessment & Plan (08/09/2020 2:28 PM EDT): Baseline creatinine ~1.3 ADAM (acute kidney injury) 03/11/2016 History of pulmonary embolism 03/11/2016 SUMMARY 03/11/2016 Overview (03/11/2016): 65 year old M with PMHx. 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 - acute on chronic kidney injury present at OSH ED Postoperative pain 02/03/2016 Hypoalbuminemia 02/03/2016 Hypoproteinemia 02/03/2016 Anticoagulation management encounter 01/31/2016 Pulmonary embolus 01/30/2016 Assessment & Plan (08/09/2020 2:22 PM EDT): History of PE due to factor V Leiden On Warfarin for prevention Essential hypertension 01/11/2016 Assessment & Plan (08/09/2020 2:22 PM EDT): Treated with amlodipine and lisinopril Type 2 diabetes mellitus wit hout complication, without long-term current use of insulin 01/11/2016 Assessment & Plan (08/09/2020 3:15 PM EDT): Managed with glipizide Most recent A1c 7.5 in 2019 Chronic anticoagulation 01/11/2016 CKD (chronic kidney disease) 01/11/2016 Factor V Leiden 01/11/2016 Rectosigmoid cancer 09/30/2015 History of DVT (deep vein thrombosis) 06/27/2015 Resolved Problems Problem Noted Date Diagnosed Date Resolved Date Ventral hernia 08/12/2020 08/17/2020 Assessment & Plan (08/17/2020 2:11 PM EDT): Assessment: 69 year old year old male 2 Days Post-Op s/p TAR for ventral hernia repair PLAN: ROBF, continue DENTAL soft diet Continue current pain regimen Home GERD meds Initiating therapeutic lovenox for transition to warfarin Continue drains, monitor outpus PRN antiemetics Encourage OOB and ambulation Encourage IS and pulmonary toilet Dispo: possible d/c 08/18; Case Management following for SNF placement Assessment & Plan (08/16/2020 7:51 AM EDT): Assessment: 69 year old year old male 2 Days Post-Op s/p TAR for ventral hernia repair PLAN: ROBF, advancing diet GI soft Switching to pain PO Home GERD meds Lovenox Monitor JIM output PRN antiemetics Encourage OOB and ambulation Encourage IS and pulmonary toilet Attention to ileostomy 07/25/201607/25 Dehydration 02/28/2016 02/28/2016 Acute kidney injury superimposed on CKD 02/28/2016 03/16/2016 Supratherapeutic INR 02/28/2016 017 High output ileostomy 02/28/20162016 Hypomagnesemia 02/28/2016 02/28/2016 Postoperative ileus 02/03/2016 02/03/20 16 Hypokalemia 02/03/2016 02/03/2016 Hyponatremia 02/03/2016 03/16/2016 Hypocalcemia 02/03/2016 02/03/2016 Immunizations Immunization Administration Dates Next Due influenza (IIV4) vaccine, ag e 6 mo - 64 yr, quadrivalent, PF (AFLURIA, FLUARIX, FLULAVAL, FLUZONE) 01/30/2016 pneumococcal polysaccharide (PPV23) vaccine, 23 valent (PNEUMOVAX 23) 01/30/2016 Family History Medical History Relation Comments bone cancer Father Relation Status Comments Father Mother Social History Tobacco [...] N ot on file 01/20/2020 Data from: [email or web address].[email or web address]/. Last address used for calculation Not on file 01/20/2020 Sex and Gender Information Value Date Recorded Sex Assigned at Not on file Legal Sex Male 9:34 AM EDT Gender Identity Not on file Sexual Orientation Not on file Last Filed Vital Signs Vital Sign Reading Time Taken Comments Blood Pressure 139/84 09/05/2020 10:58 AM EDT Pulse 77 09/05/2020 10:58 AM EDT Temperature 36.5 C (97.7 F) 09/05/2020 10:58 AM EDT Respiratory Rate 18 08/19/2020 5:06 AM EDT Oxygen Saturation 96% 08/19/2020 5:06 AM EDT Inhaled Oxygen Concentration - - Weight 86.3 kg (190 lb 3.2 oz) 09/05/2020 10:58 AM EDT Height 170.2 cm (5' 7 ) 09/05/2020 10:58 AM EDT Body Mass Index 29.79 09/05/2020 10:58 AM EDT Plan of Treatment Health Maintenance Due Date Last Done Comments Diabetic Foot Exam 1962 Dilated Retinal Exam 1962 Urine Albumin:Creatinine Ratio 1962 Annual PCP Team Chronic Dise ase Visit 1970 Anxiety Screening 1970 Depression Screening 1970 Hepatitis C Screening [address] Ch[address] Colonography 1997 Cologuard (FIT-DNA) 1997 Colonoscopy 1997 Fecal Occult Blood 1997 RSV Vaccine (1 - Risk 60-74 years 1-dose series) 2012 Medicare Annual Wellness Visit 10/12/2017 HbA1C 12/28/2018 06/27/2018, 02/21/2016 DTaP,Tdap,Td Vaccine (1 - Tdap) 06/28/2020 1, 06/27/2020 Colorectal Cancer Screening 09/15/2020 Sigmoidoscopy 09/15/2020 09/16/2015 Shingrix Vaccine (2 of 2) 03/12/2022 01/15/2022 Covid-19 Vaccine (4 - 2023-2 5 season) 2023 01/18/2021, 07/22/2020, 06/30/2020 Hemoglobin/Hematocrit 12/06/2023 12/05/2022 , 12/04/2022, 12/03/2022, Additional history exists Serum Creatinine 12/06/2023 12/05/2022, , 12/03/2022, Additional history exists Advance Directive Discussion 02/12/2024 Influenza Vaccine (#1) 2024 2, 01/11/2021, 11/14/2019, Additional history exists Pneumococcal Vaccine: 50+ Completed 2018, 10/22/2017, 01/30/2016 Medical Devices Implanted Type Area Hand Icer Device Identifier Shelf Expiration Date Model / Serial / Lot Mesh Prolene Square Flat [id number] Surgical Knit Nonabsorbable Nonreactive - [id number] Implanted:Qty: 1 on 08/12/2020 at [facility] Mesh N/A: Abdomen LUIS FERNANDO AND LUIS FERNA[employer]O 09/10/2024 PML / / [id number] Procedures Procedure Name Priority Date/Time Associated Diagnosis Comments BASIC METABOLIC PANEL STAT 08/19/2020 5:41 AM EDT CBC AUTO WO DIFF Routine 08/18/2020 5:55 AM EDT HEMOGLOBIN A1C Routine 06/27/2018 9:10 AM EDT Abnormal finding of blood chemistry Generalized abdominal pain Preoperative examination SIGMOIDOSCOPY 09/16/2015 9:24 AM EDT from Last 3 Months or Most Recently Relevant to Health Maintenance Results * (ABNORMAL) BASIC METABOLIC PNL (08/19/2020 5:41 AM EDT) Pathologist [facility] Glucose 117(H) 74 - 99 mg/dL 08/19/2020 6:39 AM EDT [facility] Comment: The [place] Diabetes Association (ADA) provides guidance for cutoff [...] Standards of Medical Care in Diabetes 2016, [place] Diabetes Association. Diabetes Care. 2016.39(Suppl 1). BUN 21 9 - 24 mg/dL 08/19/2020 6:39 AM EDT [facility] Creatinine 1.13 0.73 - 1.22 mg/dL 08/19/2020 6:39 AM EDT [facility] Sodium 134(L) 136 - 144 mmol/L 08/19/2020 6:39 AM EDT [facility] Potassium 4.2 3.7 - 5.1 mmol/L 08/19/2020 6:39 AM EDT [facility] Chloride 100 97 - 105 mmol/L 08/19/2020 6:39 AM EDT [facility] CO2 25 22 - 30 mmol/L 08/19/2020 6:39 AM EDT [facility] Anion Gap 9 9 - 18 mmol/L 08/19/2020 6:39 AM EDT [facility] Calcium 8.9 8.5 - 10.2 mg/dL 08/19/2020 6:39 AM EDT [facility] eGFR- >60 08/19/2020 6:39 AM EDT [facility] eGFR-All Other Races >60 . 08/19/2020 6:39 AM EDT [facility] Comment: eGFR (Estimated GFR) Units of measure: [...] eGFR may not accurately reflect actual GFR. Blood BLOOD SPECIMEN / Unknown 08/19/2020 5:41 AM EDT 08/19/2020 5:42 AM EDT Jalil Maloney MD LABORATORY Final Result [facility] [address] [facility] [place] [address] [facility] [address] [place] [address] * CBC (08/18/2020 5:55 AM EDT) WBC 6.07 3.70 - 11.00 k/uL 08/18/2020 8:48 AM EDT [facility] RBC 4.77 4.20 - 6.00 m/uL 08/18/2020 8:48 AM EDT [facility] Hemoglobin 13.5 13.0 - 17.0 g/dL 08/18/2020 8:48 AM EDT [facility] Hematocrit 42.3 39.0 - 51.0 % 08/18/2020 8:48 AM EDT [facility] MCV 88.7 80.0 - 100.0 fL 08/18/2020 8:48 AM EDT [facility] MCH 28.3 26.0 - 34.0 pG 08/18/2020 8:48 AM EDT [facility] MCHC 31.9 30.5 - 36.0 g/dL 08/18/2020 8:48 AM EDT [facility] RDW-CV 13.5 11.5 - 15.0 % 08/18/2020 8:48 AM EDT [facility] Platelet Count 219 150 - 400 k/uL 08/18/2020 8:48 AM EDT [facility] MPV 10.2 9.0 - 12.7 fL 08/18/2020 8:48 AM EDT [facility] Absolute nRBC <0.01 <0.01 k/uL 08/18/2020 8:48 AM EDT [facility] Blood WHOLE BLOOD SPECIMEN / Unknown 08/18/2020 5:55 AM EDT 08/18/2020 5:56 AM EDT Jalil Maloney MD LABORATORY Final Result [facility] [address] [facility] [place] [address] [facility] [address] [place] [address] * (ABNORMAL) HGB A1C (06/27/2018 9:10 AM EDT) Pathologist [facility] Hemoglobin A1C 7.5(H) 4.3 - 5.6 % 06/27/2018 3:40 PM EDT [facility] Comment: [place] Diabetes Association guidelines indicate that patients with HgbA1c in the range 5.7-6.4% are at increased risk for development of diabetes, and intervention by lifestyle modification may be beneficial. HgbA1c greater or equal to 6.5% is considered diagnostic of diabetes. Estimated Average Glucose 169 mg/dL 06/27/2018 3:40 PM EDT [facility] Comment: eAG: (Estimated average glucose) is a calculated value from HgbA1c and is open claims representative of the average blood glucose level in the last 2-3 month period. Blood specimen (specimen) WHOLE BLOOD SPECIMEN / Unknown 06/27/2018 9:10 AM EDT 06/27/2018 9:14 AM EDT Jalil Maloney MD LABORATORY Final Result [facility] [address] [place] [address] [facility] [address] [place] [address] * SIGMOIDOSCOPY (09/16/2015 9:24 AM EDT) Safety Sealer A30 Gastrointestinal Endoscopy Patient Name: Shad Joseph Procedure Date: 09/16/2015 9:24 AM Date of : 1950 Admit Type: Outpatient Age: 64 Gender: Male Note Status: Finalized Attending MD: Pedro Pablo Latwon MD Procedure: Flexible Sigmoidoscopy Indications: Personal history of malignant rectal neoplasm Providers: Pedro Pablo Lawton MD Patient Profile: This is a 64 year old male. Refer to note in patient chart for documentation of history and physical. Referring Physician: Medicines: None Complications: No immediate complications. Requesting Provider: Procedure: Pre-Anesthesia Assessment: - Prior to the procedure, a History and Physical was performed, and patient medications and allergies were reviewed. The patient's tolerance of previous anesthesia was also reviewed. The risks and benefits of the procedure and the sedation options and risks were discussed with the patient. All questions were answered, and informed consent was obtained. Prior Anticoagulants: The patient has taken Xarelto (rivaroxaban), last dose was day of procedure. ASA Grade Assessment: II - A patient with mild systemic disease. After reviewing the risks and benefits, the patient was deemed in satisfactory condition to undergo the procedure. After obtaining informed consent, the scope was passed under direct vision. The Flexible sigmoidoscope was introduced through the anus and advanced to the rectum. The flexible sigmoidoscopy was accomplished without difficulty. The patient tolerated the procedure well. The quality of the bowel preparation was good. Findings: The perianal examination was normal. A polypoid partially obstructing medium-sized mass was found in the mid rectum.it was adjacent to the middle rectal valve. The mass was non-circumferenti al. No bleeding was present. No biopsies or other specimens were collected for this exam. Impression: - Malignant partially obstructing tumor in the mid rectum. Removal was not done. - No specimens collected. Estimated Blood Loss: Estimated blood loss: none. Recommendation: - Await pathology results. - The findings and recommendations were discussed with the patient. Attending Participation: I personally performed the entire procedure. MD Pedro Pablo Camacho MD 09/16/2015 10:13:27 AM This report has been signed electronically. Number of Addenda: 0 Note Initiated On: 09/16/2015 9:24 AM Procedure Start: Procedure End: [facility] Anatomical Region Laterality Modality Other 09/16/2015 9:24 AM EDT [facility] Provider DIG[facility] DISE[facility] Final Result from Last 3 Months or Most Recently Relevant to Health Maintenance Insurance MEDICARE [facility] [place] [place] Advance Directives Documents on File Type Date Recorded Patient Americanization Teacher Expl anation Advance Directive(s) 06/27/2018 11:11 AM Care Teams Eyelet Row Marker Relationship Specialty Start Date End Date Cynthia Cavazos CNP [address], [place] [phone] PCP - General 08/05/18 Shad Burden MD [address] [place], [place] [phone] Referring Family Medicine 05/04/20
--- OUTSIDE RECORDS SUMMARY | 2024-08-11 11:29 | XMS_ITS | Referral Summary ---
Author Organization [facility] Address [address] [place] [address] Care Team Providers Care Ore Washer Name Role Phone Shad Burden MD Unavailable Cynthia Cavazos CNP Primary Care Provider [phone] Encounters Date Type Department Care Team Description 08/11/2024 10:00 AM EDT Office Visit [facility] [address] [place] [address] Vania Tate CNP Chronic systolic heart failure (CMS/HCC) (Primary Dx); Encounter for monitoring amiodarone therapy; Mixed hyperlipidemia 08/06/2024 Orders Only [facility] [address] [place] [id number] Vero López MA technician terminal and repeater current use of amiodarone (Primary Dx) 07/10/2024 4:30 PM EDT Ancillary Procedure [facility] [address] [place] [address] Pre-operative cardiovascular examination, ICD in place 07/05/2024 Orders Only [facility] [address] [place] [address] Janice Retana MD 07/02/2024 9:15 PM EDT Ancillary Procedure [facility] [address] [place] [address] Pre-operative cardiovascular examination, ICD in place 06/21/2024 Orders Only [facility] [address] [place] [address] Spencer Olsen MD 06/09/2024 9:05 AM EDT Ancillary Procedure [facility] [place] [address] Pre-operative cardiovascular examination, ICD in place 06/04/2024 Orders Only [facility] [address] [place] [phone] Janice Retana MD from Last 3 Months Allergies Active Allergy Reactions Criticality Noted Date [...] wheezing or shortness of breath. 6.7 g 12/06/19 23 2024 Discontinued amiodarone (Pacerone) 400 mg tabletIndicatio ns:Paroxysmal [...] reflux 07/30/2023 Atherosclerotic heart diseas e of [place] coronary artery without angina pectoris 07/30/2023 Bloating [...] of DVT (deep vein thrombosis) 06/27/2015 12/12/2022 Social History Tobacco Use Types Packs/Day Years [...] place to sleep or slept in a senior living (including now)? No 11/25/2022 Hunger Vital Sign [...] Description 08/18/2024 1:15 PM EDT Ancillary Procedure [address] [phone] 11/17/2024 9:30 AM EDT Office Visit [facility] [address] [place] [address] Spencer Olsen MD [address] [place] [phone] Medical Devices Implanted Type Area Meeting/Event Planner Device Identifier Shelf Expiration Date Model / Serial / Lot Rubina Ramirez Df4-Dr - [id number] - [id number] Implanted:Qty: 1 on 11/29/2022 by Spencer Olsen MD at [facility] [employer] [id number] 09/24/2024 D23 3 / [id number] / Ingevity+ Is-1 Bi Positive Fix Ra/Rv 52cm Implanted:Qty: 1 on 11/29/2022 by Spencer Olsen MD at [facility] [employer] [place] [employer] [id number] 10/20/2024 784 1 / [id number] / [place] 4 Front Implanted:Qty: 1 on 11/29/2022 by Spencer Olsen MD at [facility] [place] [employer] [id number] 10/07/2024 067 / [id number] / Procedures Procedure Name Priority Date/Time Associated [...] of4 resultswithin the time period is included. us Spencer Olsen MD CV IMPLANTABLE CARDIAC DEVICE IA OCEDURES Final Result CPACS * Cardiac device check - Remote ICD (07/05/2024 12:00 AM EDT) Only the most recent of3 resultswithin the time period is included. Anatomical Region Laterality Modality Other 07/05/2024 Janice Retana MD CV IMPLANTABLE CARDIAC DEVICE PROCEDURES Final Result from Last 3 Months Insurance MEDICARE [facility] [place] Advance Directives * Full Code (Latest Code Status on File) Date Activated Date Inactivated Comments 11/25/2022 6:19 AM 12/05/2022 8:54 PM Care Teams Ore Washer Relationship Specialty Start Date End Date Cynthia Cavazos CNP [address] [place] [address], [facility] [place] [address] PCP - General Family Medicine 12/12/22 Shad Burden MD [address] [place], [place] [address] [place] [address] Referring Physician 11/25/22
--- OUTSIDE RECORDS SUMMARY | 2024-08-13 06:43 | XMS_ITS | Continuity of Care Document ---
Author Organization [facility]. If a dditional information is needed, contact Health Information Management at [phone] Address [address] [place] [address] Phone Care Team Providers Care Political Science Professor Name Role Phone Unavailable Unavailable Unavailable
--- OUTSIDE RECORDS SUMMARY | 2024-08-13 06:45 | XMS_ITS | Clinical Summary ---
Author Organization [facility] Address [address] [place] [address] Care Team Providers Care Licensing Engineer Name Role Phone Shad Burden MD Unavailable Cynthia Cavazos CNP Primary Care Provider [phone] Allergies Active Allergy Reactions Criticality Noted Date [...] each day at the same time. Active dapagliflozin propanediol (Farxiga) 10 mgIndications:A cute [...] directed. 90 tablet 3 01/03/20 23 2024 Discontinued( ed List Cleanup) amiodarone (Pacerone) 200 mg tabletIndicatio ns:Persistent atrial fibrillation (CMS/HCC) Take 1 tablet (200 mg) by mouth once daily as directed. 90 tablet 1 02/20/19 25 2024 Discontinued sacubitril-vals ksenia (Entresto) 24-26 mg tabletIndicatio ns:Chronic systolic heart failure (CMS/HCC) Take 1 tablet by mouth two times daily. 180 tablet 3 05/01/192024 Discontinued Active Problems Problem Noted Date Diagnosed Date Constipation 08/11/2024 Coronary artery ectasia 08/11/2024 Acid reflux 07/30/2023 Atherosclerotic heart diseas e of [place] coronary artery without angina pectoris 07/30/2023 Bloating [...] Description 08/11/2024 10:00 AM EDT Office Visit [place] [address] [place] [address] Vania Tate CNP Chronic systolic heart failure (CMS/HCC) (Primary Dx); Encounter for monitoring amiodarone therapy; Mixed hyperlipidemia; V-tach (CMS/HCC); ICD (implantable cardioverter-defibrill ator), dual, in situ; Benign hypertensive heart disease with heart failure (CMS/HCC); History of DVT (deep vein thrombosis); Hx pulmonary embolism; Coronary artery ectasia 08/06/[address] [facility] [address] [place] [address] Vero López MA terminal makeup operator current use of amiodarone (Primary Dx) 07/10/2024 4:30 PM EDT Ancillary Procedure [facility] [address] [place] [phone] Pre-operative cardiovascular examination, ICD in place 07/05/2024 Orders Only [facility] [address] [place] [phone] Janice Retana MD 07/02/2024 9:15 PM EDT Ancillary Procedure [facility] [address] [place] [phone] Pre-operative cardiovascular examination, ICD in place 06/21/2024 Orders Only [facility] [address] [place] [address] Spencer Olsen MD 06/09/2024 9:05 AM EDT Ancillary Procedure [facility] [address] [place] [address] Pre-operative cardiovascular examination, ICD in place 06/04/2024 Orders Only [facility] [address] [place] [address] Janice Retana MD from Last 3 Months [...] place to sleep or slept in a half-way (including now)? No 11/25/2022 Hunger Vital Sign [...] Description 08/18/2024 1:15 PM EDT Ancillary Procedure [facility] [address] [place] [address] 11/17/2024 9:30 AM EDT Office Visit [facility] [address] [place] [address] Spencer Olsen MD [address] [place], [place] [address] [phone] Health Maintenance Due Date Last Done Comments Diabetes: Hemoglobin A1C 1950 Medicare Annual Wellness (AWV) 1952 Diabetes: Retinopathy Screening 1962 Depression Screening 1964 Diabetes: Urine Protein Screening 11/05/1971 Fall Risk Screening 2017 Zoster Vaccines (2 of 2) 03/12/2022 01/15/2022 COVID-19 Vaccine ( season) 2023 01/18/2021, 07/22/2020, 06/30/2020 Influenza Vaccine [...] this topic Medical Devices Implanted Type Area Coo Device Identifier Shelf Expiration Date Model / Serial / Lot RileycarlosManannat Botello Df4-Dr - [id number] - [id number] Implanted:Qty: 1 on 11/29/2022 by Spencer Olsen MD at [facility] ICD [employer] [id number] 09/24/2024 D23 3 [id number] / Ingevity+ Is-1 Bi Positive Fix Ra/Rv 52cm Implanted:Qty: 1 on 11/29/2022 by Spencer Olsen MD at [facility] Lead [employer] [id number] 10/20/2024 784 1 / [id number] / [place] 4 Front Implanted:Qty: 1 on 11/29/2022 by Spencer Olsen MD at [facility] [employer] [id number] 10/07/2024 067 / [id number] / Procedures Procedure Name Priority Date/Time Associated [...] - ICD Routine 06/04/2024 12:00 AM EDT from Last 3 Months Results * CARDIAC DEVICE CHECK - REMOTE - ICD (07/17/2024 3:35 PM EDT) Only the most recent of3 resultswithin the time period is included. us Specner Olsen MD CV IMPLANTABLE CARDIAC DEVICE [place] OCEDURES Final Result CPACS * Cardiac device check - Remote ICD (07/05/2024 12:00 AM EDT) Only the most recent of3 resultswithin the time period is included. Anatomical Region Laterality Modality Other 07/05/2024 us Janice Retana MD CV IMPLANTABLE CARDIAC DEVICE PROCEDURES Final Result from Last 3 Months Insurance [facility] [address] [address] MEDICARE [employer] Advance Directives * Full Code (Latest Code Status on File) Date Activated Date Inactivated Comments 11/25/2022 6:19 AM 12/05/2022 8:54 PM Care Teams Licensing Engineer Relationship Specialty Start Date End Date Cynthia Cavazos CNP [address] [place] [address] [place] [address] PCP - General Family Medicine 12/12/22 Shad Burden MD [address] [place], [place] [address] [address] Referring Physician 11/25/22
--- OUTSIDE RECORDS SUMMARY | 2024-08-13 06:45 | XMS_ITS | Clinical Summary ---
Author Organization [facility] Address [address] [place] [address] Care Team Providers Care Billing Clinician Name Role Phone Shad Burden MD Primary [...] 01/30/2016 Insurance MEDICARE [employer] Care Teams Billing Clinician Relationship Specialty Start Date End Date Shad Burden MD PCP - General Family Medicine 09/12/23
--- OUTSIDE RECORDS SUMMARY | 2024-08-13 06:45 | XMS_ITS | Encounter Summary ---
Author Organization [facility] Address [address] [place] [address] Care Team Providers Care Banding Machine Operator Name Role Phone Shad Burden MD Unavailable Cynthia Cavazos CNP Primary Care Provider [phone] Reason for Referral * Genetic Testing (Routine) - Pending Review Specialty Diagnoses / Procedures Referred By Mark rodríguez Referred To Contact Lab Diagnoses long term care social worker current use of amiodarone Procedures T4, free Vania Tate CNP [address] [place] [address] Phone: tel: fax: Referral ID Status Reason Start Date Expiration Date V isits Requested Visits Authorized [id number] Pending Review 08/06/2024 08/06/2025 1 1 Encounter Details Date Type Department Care Team (Late st Contact Info) Description 08/06/2024 Orders Only [facility] at [facility] [address] [place] [address] Vero López MA long term care social worker current use of amiodarone (Primary Dx) Social [...] place to sleep or slept in a prison (including now)? No 11/25/2022 Hunger Vital Sign [...] Description 08/18/2024 1:15 PM EDT Ancillary Procedure [facility] [address] [place] [address] 11/17/2024 9:30 AM EDT Office Visit [facility] [address] [place] [address] Spencer Olsen MD [address] [place] [address] Scheduled Orders Name Type Priority Associated Diagnoses Orde r Schedule Pulmonary function testing Spirometry; Body Box (lung volumes, airway resistance, and SVC), DLCO PFT Routine long term care social worker current use of amiodarone Expected: 08/06/2024 (Approximate), Expires: 08/06/2025 TSH Lab Routine long term care social worker current use of amiodarone Expected: 08/06/2024 (Approximate), Expires: 08/06/2025 T4, free Lab Routine long term care social worker current use of amiodarone Expected: 08/06/2024 (Approximate), Expires: 08/06/2025 Hepatic function panel Lab Routine jail current use of amiodarone Expected: 08/06/2024 (Approximate), Expires: 08/06/2025 XR chest 2 views Imaging Routine jail current use of amiodarone Expected: 08/06/2024, Expires: 08/06/2025 documented as of this encounter Visit Diagnoses Diagnosis long term care social worker current use of amiodarone- Primary documented in this encounter Care Teams Banding Machine Operator Relationship Specialty Start Date End Date Cynthia Cavazos CNP [facility] [place] [address] PCP - General Family Medicine 12/12/22 Shad Burden MD [address] [facility] [place] [address] Referring Physician 11/25/22 documented as of this encounter
--- OUTSIDE RECORDS SUMMARY | 2024-08-13 06:45 | XMS_ITS | Encounter Summary ---
Author Organization [facility] Address [address] [place] [address] Care Team Providers Care Speech Therapist Name Role Phone Shad Burden MD Primary Care Provider [phone] Encounter Details Date Type Department Care Team (Late st Contact Info) Description 04/25/2023 Orders Only [facility] [address] [place] [address] Shaikh Headley MD [address] [place] [phone] Social History Tobacco Use Types Packs/Day Years [...] on filedocumented in this encounter Care Teams Speech Therapist Relationship Specialty Start Date End Date Shad Burden MD PCP - General Family Medicine 09/12/23 documented as of this encounter
--- OUTSIDE RECORDS SUMMARY | 2024-08-13 06:45 | XMS_ITS | Clinical Summary ---
Author Organization [facility] Address [facility] [place] [address] Care Team Providers Care Inspector Weights And Measures Name Role Phone No, Physician Primary Care [...] Plan of Treatment Not on file Insurance [facility] MEDICARE PART A & B PART A CLAIMS [address] [address] [place] [address] Care Teams Inspector Weights And Measures Relationship Specialty Start Date End Date No, Physician [facility] PCP - General 06/19/15
--- OUTSIDE RECORDS SUMMARY | 2024-08-13 06:45 | XMS_ITS | Encounter Summary ---
Author Organization [facility] Address [address] [place] [address] Care Team Providers Care Chief Merchandising Officer Name Role Phone Shad Burden MD Unavailable Cynthia Cavazos CNP Primary Care Provider + [phone] Encounter Details Date Type Department Care Team (Late st Contact Info) Description 06/21/2024 Orders Only [facility] [address] [place] [address] Spencer Olsen MD [address] [place] [address] Social History Tobacco Use Types [...] and heating? Not hard at all 11/25/2022 [place] Safety & Environment Answer Date Rec orded [...] place to sleep or slept in a mcc (including now)? No 11/25/2022 Hunger Vital Sign [...] Description 08/18/2024 1:15 PM EDT Ancillary Procedure [place] [address] [place] [address] 11/17/2024 9:30 AM EDT Office Visit [facility] [address] [place] [address] Spencer Olsen MD [address] [place] [address] documented as of this encounter Procedures Procedure Name Priority Date/Time Associated Diagnosis Comments CARDIAC DEVICE CHECK - REMOTE - ICD Routine 06/21/2024 12:00 AM EDT documented in this encounter Results * Cardiac device check - Remote ICD (06/21/2024 12:00 AM EDT) Anatomical Region Laterality Modality Other 06/21/2024 Spencer Olsen MD CV IMPLANTABLE CARDIAC DEVICE [place] OCEDURES Final Result documented in this encounter Visit Diagnoses Not on filedocumented in this encounter Care Teams Chief Merchandising Officer Relationship Specialty Start Date End Date Cynthia Cavazos CNP [address] [place] [address] [place] [address] PCP - General Family Medicine 12/12/22 Shad Burden MD [address] [place] [address] Referring Physician 11/25/22 documented as of this encounter
--- OUTSIDE RECORDS SUMMARY | 2024-08-13 06:45 | XMS_ITS | Encounter Summary ---
Author Organization [facility] Address [address] [place] [address] Care Team Providers Care Police Dispatcher Name Role Phone Cynthia Cavazos ISIDRA Primary Care Provider + Shad Burden MD Unavailable [phone] Source Comments In the event this information is protected by the Federal Confidentiality of Alcohol and Drug AbusePatient Records regulations: The Federal rules restrict any use of the information to criminally investigate or prosecute any alcohol or drug abuse patient.[facility] Encounter Details Date Type Department Care Team (Late st Contact Info) Description 08/12/2020 [facility] [address] [place] [address] Jalil Maloney MD [address] [place] [address] Social History Tobacco Use Types [...] N ot on file 01/20/2020 Data from: [email or web address] Last address used for calculation Not on [...] on filedocumented in this encounter Care Teams Police Dispatcher Relationship Specialty Start Date End Date Cynthia Cavzaos CNP [address] [place] [address] PCP - General 08/05/18 Shad Burden MD [address] [place] [address] Referring Family Medicine 05/04/20 documented as of this encounter
--- OUTSIDE RECORDS SUMMARY | 2024-08-13 06:45 | XMS_ITS | Encounter Summary ---
Author Organization [facility] Address [address] [place] [address] Care Team Providers Care Consultant Technology Name Role Phone Shad Burden MD Unavailable Cynthia Cavazos CNP Primary Care Provider + [phone] Encounter Details Date Type Department Care Team (Late st Contact Info) Description 07/05/2024 Orders Only [facility] [address] [place] [address] Janice Retana MD [address] [place] [address] Social History Tobacco Use Types [...] and heating? Not hard at all 11/25/2022 [place] Safety & Environment Answer Date Rec orded [...] place to sleep or slept in a correction (including now)? No 11/25/2022 Hunger Vital Sign [...] Description 08/18/2024 1:15 PM EDT Ancillary Procedure [address] [address] 11/17/2024 9:30 AM EDT Office Visit [facility] [address] [place] [address] Spencer Olsen MD [address] [place] [address] documented as of this encounter Procedures Procedure [...] on filedocumented in this encounter Care Teams Consultant Technology Relationship Specialty Start Date End Date Cynthia Cavazos CNP [address] [place] [address] [place] [address] PCP - General Family Medicine 12/12/22 Shad Burden MD [address] [place] [address] Referring Physician 11/25/22 documented as of this encounter
--- OUTSIDE RECORDS SUMMARY | 2024-08-13 06:45 | XMS_ITS | Encounter Summary ---
Author Organization [facility] Address [address] [place] [address] Care Team Providers Care Bridge Rigger Name Role Phone Shad Burden MD Unavailable Cynthia Cavazos CNP Primary Care Provider + [phone] Encounter Details Date Type Department Care Team (Late st Contact Info) Description 06/04/2024 Orders Only [facility] [address] [place] [address] Janice Retana MD [address] [place] [address] Social History Tobacco Use Types [...] and heating? Not hard at all 11/25/2022 [place] Safety & Environment Answer Date Rec orded [...] place to sleep or slept in a care home (including now)? No 11/25/2022 Hunger Vital [...] Description 08/18/2024 1:15 PM EDT Ancillary Procedure [address] [address] 11/17/2024 9:30 AM EDT Office Visit [facility] [address] [place] [address] Spencer Olsen MD [address] [place] [address] documented as of this encounter Procedures Procedure [...] on filedocumented in this encounter Care Teams Bridge Rigger Relationship Specialty Start Date End Date Cynthia Cavazos CNP [address] [place] [address] [place] [address] PCP - General Family Medicine 12/12/22 Shad Burden MD [address] [place] [address] Referring Physician 11/25/22 documented as of this encounter
--- OUTSIDE RECORDS SUMMARY | 2024-08-13 06:45 | XMS_ITS | CCD ---
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 Role Phone RANIMARIO ALBERTO MARS Unavailable Unavailab Shad May Primary Care Physician Josephine Zambrano Unavailable Unavailable Aggie [place] Unavailable Unavailable DR SHAD DYSON Primary Care Unavailable CYNTHIA AGUILA Attending Unavailable CYNTHIA AGUILA Admitting Unavailable DR SHAD DYSON Primary Care Unavailable CYNTHIA AGUILA Attending Unavailable CYNTHIA AGUILA Consulting Unavailable MINGO, CYNTHIA Admitting Unavailable Cynthia Aguila CNP Primary Care Provider Shad Dyson MD Unavailable Cynthia Aguila CNP Primary Care Provider NANCI MILLER Attending Unavailable MINGO, CYNTHIA S Referring Unavailable CYNTHIA AGUILA Primary Care Unavailable MODOROTHY, JOSIAHD Referring Unavailable SASHA AGUILAELA Unruly Primary Care Unavailable NANCI MILLER Attending Unavailable Adamowicz, Dougie Admitting Unavailable Adamowicz, Dougie Attending Unavailable Adamowicz, Dougie Referring Unavailable Adamowicz, Dougie Admitting Unavailable Adamowicz, Dougie Attending Unavailable ELEAZAR WILLIS Admitting Unavailable ELEAZAR WILLIS Attending Unavailable Adamowicz, Dougie Attending Unavailable Adamowicz, Dougie Attending Unavailable Mouchli, Mohamad A. Attending Unavailable Mouchli, Mohamad A. Admitting Unavailable Mouchli, Mohamad A. Referring Unavailable ELEAZAR WILLIS Attending Unavailable ELEAZAR WILLIS Admitting Unavailable Mouchli, Mohamad A. Attending Unavailable Mouchli, Mohamad A. Admitting Unavailable Mouchli, Mohamad A. Attending Unavailable MARQUIS ARREOLA Attending Unavailable Adamowicz, Dougie Attending Unavailable Adamowicz, Dougie Admitting Unavailable Adamowicz, Dougie Attending Unavailable Dougie Harmon Admitting Unavailable Dougie Harmon Attending Unavailable MATILDE, HAYLEY Referring Unavailable MATILDE, HAYLEY Referring Unavailable MATILDE, HAYLEY Referring Unavailable MATILDE, HAYLEY Referring Unavailable MATILDE, HAYLEY Referring Unavailable MATILDE, HAYLEY Referring Unavailable MATILDE, HAYLEY Referring Unavailable MATILDE, HAYLEY Referring Unavailable MATILDE, HAYLEY Referring Unavailable NORI PRATT Attending Unavailable MATILDE, HAYLEY Referring Unavailable MATILDE, HAYLEY Referring Unavailable MATILDE, HAYLEY Referring Unavailable MATILDE, HAYLEY Referring Unavailable MATILDE, HAYLEY Referring Unavailable MATILDE, HAYLEY Referring Unavailable MATILDE, HAYLEY Referring Unavailable MATILDE, HAYLEY Referring Unavailable MATILDE, HAYLEY Referring Unavailable Allergies Allergy Classification Reported Allergen(s) Allergy Type Date of Onset Reaction(s) Facility Penicillins (antibiotic) (1 source) Penicillins; 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: [penicillins] Drug Allergy [facility] Repository (20 sources) Penicillins; 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: [PENICILLINS] Propensity to adverse reactions to drug (disorder) 6 Unknown [facility] Repository (20 sources) RAGWEED; 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: [RAGWEED] Propensity to adverse reactions to drug (disorder) 6 Dyspnea (finding), Shortness of Breath [facility] Repository (1 source) house dust allergenic extract; 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: [HOUSE DUST] Drug Allergy 3 [facility] Repository Medications Current Medications Medication Drug Class(es) Dates Sig (Normalized) Sig (Original) acetaminophen 500 mg oral tablet (3 sources) Start: 08-19-2020 take 2 tablets by mouth every six hours as needed acetaminophen (TYLENOL) 500 mg tablet Take 2 tablets by mouth every 6 hours as needed for pain. 0 08/19/2020 Active Comment on above: Take 2 tablets by [facility] every 6 hours as needed for pain. [...] QID for wheezing, 6.7 gram, Refill(s) 0, [facility]/pharmacy #[id number] Start Date: 05/13/18 Status: Ordered Quantity: 6.7 Unit: g Repeat number: 1 Indications: Acute bronchitis, unspecified; Start: 05-13-2018 take 2 puff(s) by in halation four times daily for wheezing albuterol HFA 90 mcg/inh MDI 2 puff(s), Inhalation, QID for wheezing, 6.7 gram, Refill(s) 0, [facility]/pharmacy #[id number] Start Date: 05/13/18 Status: Ordered amLODIPine 2.5 mg oral tablet (20 sources) Dihydropyridine Calcium Channel Darryl Start: 11-22-2017 take 1 tablet by mouth once daily amLODIPine 2.5 mg Tab 2.5 mg = 1 tab(s), Oral, Daily, # 30 tab(s), Refills(s) 0, High blood pressure Start Date: 11/22/17 Status: Ordered Quantity: 30.0 Unit: tab(s) Repeat number: 1 Comment on above: Take 1 tablet by paula once daily. apixaban 2.5 mg oral tablet (20 sources) Factor Xa Inhibitor Start: 08-29-2018 take 1 tablet by mouth twice daily Eliquis 2.5 mg oral tablet 2.5 mg = 1 tab(s), Oral, BID, # 60 tab(s), Refills(s) 5, Pharmacy: [facility]/pharmacy #[id number] Start Date: 08/29/18 Status: Ordered Quantity: 60.0 Unit: tab(s) Repeat number: 6 atorvastatin 10 mg oral tablet (20 sources) HMG-CoA Reductase Inhibitor Start: 11-22-2017 take 1 tablet by mouth once daily atorvastatin 10 mg Tab 10 mg = 1 tab(s), Oral, Daily, # 30 tab(s), Refills(s) 0, High cholesterol Start Date: 11/22/17 Status: Ordered Quantity: 30.0 Unit: tab(s) Repeat number: 1 Comment on above: Take 1 tablet by paula th once daily. bisacodyl 10 mg rectal suppository (11 sources) Stimulant Laxative Start: 04-15-2023 take 10 mg rectal route once daily as needed for constipation bisacodyl 10 mg Supp 10 mg = 1 supp, Rectal, Daily, PRN for constipation, # 12 supp, Refills(s) 0, Pharmacy: [facility]/pharmacy #[id number], 167, cm, 04/15/23 12:19:00 EST, Height/Length Dosing, 89, kg, 04/15/23 12:19:00 EST, Weight Dosing Start Date: 04/15/23 Status: Ordered Quantity: 12.0 Unit: supp Repeat number: 1 calcium carbonate 500 mg chewable tablet (3 sources) Start: 08-19-2020 take 500 mg by mouth every eight hours as needed calcium carbonate (TUMS) 500 mg chew Take 1 tablet by mouth three times daily as needed (GERD). 0 08/19/2020 Active Comment on above: Take 1 tablet by paula th three times daily as needed (GERD). dapagliflozin 5 mg oral tablet (7 sources) Sodium-Glucose Cotransporter 2 Inhibitor Start: 06-27-2023 take 1 tablet by mouth once daily Farxiga 5 mg oral tablet 5 mg = 1 tab(s), Daily, Refills(s) 0 Start Date: 06/27/23 Status: Ordered Repeat number: 1 docusate sodium 100 mg oral capsule (3 sources) Start: 08-19-2020 take 1 capsule by mouth twice daily docusate sodium (COLACE) 100 mg capsule Take 1 capsule by mouth twice daily. While taking narcotic pain medication 0 08/19/2020 Active Comment on above: Take 1 capsule by mo [facility] twice daily. While taking narcotic pain medication [...] Blood glucose Start Date: 07/13/19 Status: Ordered Quantity: 30.0 Unit: tab(s) Repeat number: 1 Start: 11-29-2018 take 1 tablet by paula th once daily glipiZIDE (GLUCOTROL XL) 2.5 mg 24 hr tablet Take 2.5 mg by mouth once daily. 11 11/29/2018 Active Comment on above: Take 2.5 mg by mouth once daily. 12 hr guaiFENesin 600 mg extended release oral tablet (3 sources) Start: 1 take 1 tablet by mouth every twelve hours as needed for congestion guaiFENesin (MUCINEX) 600 mg 12 hr tablet Take 1 tablet by mouth every 12 hours as needed (help with congestion). 0 08/19/2020 Active Comment on above: Take 1 tablet by paula th every 12 hours as needed (help with congestion). Immodium A-D 2 mg Cap (17 sources) Start: 8 take 1 capsule by mouth once Immodium A-D 2 mg Cap 2 mg = 1 cap(s), Oral, QIDACHS, pt takes scheduled unless constipated, Refills(s) 0, Diarrhea Start Date: 04/05/17 Status: Ordered Repeat number: 1 Start: 04-05-2017 take 1 capsule by mouth once I mmodium A-D 2 mg Cap 2 mg = 1 cap(s), Oral, QIDACHS, pt takes scheduled unless constipated, Refills(s) 0, Diarrhea Start Date: 04/05/17 Status: Ordered lisinopril 2.5 mg oral tablet (20 sources) Angiotensin Converting Enzyme Inhibitor Start: 05-12-2018 take 1 tablet by mouth once daily lisinopril 2.5 mg Tab 2.5 mg = 1 tab(s), Oral, Daily, Refills(s) 0, High blood pressure Start Date: 05/12/18 Status: Ordered Repeat number: 1 Comment on above: Take 1 tablet by paula th once daily. loperamide hydrochloride 2 mg oral capsule (8 sources) Opioid Agonist Start: 04-05-2017 take 1 [...] 1 EA, Refill(s) 0, Prior to colonoscopy., [facility]/pharmacy #[id number], 167.6, cm, 07/19/21 8:57:00 EDT, [...] on above: Take 1 tablet by paula every 6 hours as needed. pantoprazole (20 sources) Proton Pump Inhibitor Start: 02-18-19 18 pantoprazole 40 mg, Oral, Daily, Refills(s) 0, Control of stomach acid Start Date: 02/18/17 Status: Ordered Repeat number: 1 Start: 02-18-2017 take 40 mg by mouth [...] Blood glucose Start Date: 05/12/18 Status: Ordered Repeat number: 1 polyethylene glycol 3350 19011 mg powder for oral solution (19 sources) Osmotic Laxative Start: polyethylene glycol 3350 Oral Pwdr for Recon 17 gram, Oral, Daily, PRN Constipation, dissolve in water before taking, Refills(s) 0 Start Date: 05/12/18 Status: Ordered Repeat number: 1 polyethylene glycol 3350 Oral Pwdr for Recon [...] day, # 21 tab(s), Refills(s) 0, Pharmacy: [facility]/pharmacy #[id number] Start Date: 05/13/18 Status: Ordered Quantity: 21.0 Unit: tab(s) Repeat number: 1 Indications: Acute bronchitis, unspecified; psyllium 525 mg oral capsule (7 sources) Start: End: 024 take 5 capsules by mouth once daily Metamucil 525 mg oral capsule 2,625 mg = 5 cap(s), Oral, Daily, X 90 day(s), # 450 cap(s), Refills(s) 3, Pharmacy: [facility]/pharmacy #[id number], 167.6, cm, 06/27/22 8:28:00 EDT, Height/Length Dosing, 94.9, kg, 06/27/22 8:28:00 EDT, Weight Dosing Start Date: 06/27/22 Stop Date: 06/22/23 Status: Ordered sacubitril 24 mg / valsartan 26 mg oral tablet (7 sources) Angiotensin 2 Receptor Darryl Start: 024 take 1 tablet by mouth twice daily Entresto 24 mg-26 mg oral tablet 1 tab(s), Oral, BID, Refill(s) 0 Start Date: 06/27/23 Status: Ordered Repeat number: 1 Senna Leaves (11 sources) Start: 024 Senna 8.6 mg oral tablet 17.2 mg, 2 tab(s), Oral, BID for constipation, 100 tab(s), Refill(s) 4[id number], cm, 04/15/23 12:19:00 EST, Height/Length Dosing, 89, kg, 04/15/23 12:19:00 EST, Weight Dosing Start Date: 04/15/23 Status: Ordered Quantity: 100.0 Unit: tab(s) Repeat number: 5 Start: 04-15-2023 Senna 8.6 mg o ral tablet 17.2 mg, 2 tab(s), Oral, BID for constipation, 100 tab(s), Refill(s) 4, [facility]/pharmacy #[id number], 167, cm, 04/15/23 12:19:00 EST, Height/Length Dosing, 89, kg, 04/15/23 12:19:00 EST, Weight Dosing Start Date: 04/15/23 Status: Ordered warfarin sodium 4 mg oral tablet (20 sources) Vitamin K Antagonist Start: 05-12-2018 take 1 tablet by mouth once Coumadin 4 mg Tab 4 mg = 1 tab(s), Oral, As Directed, as directed, per INR results, # 90 tab(s), Refills(s) 0, Pharmacy: [facility]/pharmacy #[id number], 167.6, cm, 01/02/19 13:46:00 EST, Height/Length Measured, 95.8, kg, 01/02/19 13:46:00 EST, Weight Measured Start Date: 04/14/19 Status: Ordered Quantity: 90.0 Unit: tab(s) Repeat number: 1 Comment on above: Take 1 tablet by mouth daily as directed . 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] Onset: 6 11-14-2020 Chronic Conduction disorders (2 sources) Presence of automatic (implantable) cardiac defibrillator; 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: [Presence of automatic (implantable) cardiac defibrillator] Onset: 5 Chronic Congestive heart failure; nonhypertensive (5 sources) Chronic systolic heart failure; 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: [Chronic systolic (congestive) heart failure] Onset: 9 10-10-2018 Chronic Coronary atherosclerosis and other heart disease (3 sources) Calcification of coronary artery; 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: [Atherosclerotic heart disease of [place] coronary artery without angina pectoris] Onset: 9 01-02-2019 Chronic Diabetes mellitus without complication (3 sources) Type 2 diabetes mellitus without complication; 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: [Type 2 diabetes mellitus without complications] Onset: 6 03-16-2016 Chronic Disorders of lipid metabolism (2 sources) Mixed hyperlipidemia; 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: [Mixed hyperlipidemia] Onset: 5 Chronic Diverticulosis and diverticulitis (20 sources) Diverticula of intestine; 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: [Diverticulosis of intestine, part unspecified, without perforation or abscess without bleeding] Onset: 2 Chronic Esophageal disorders (20 sources) Gastroesophageal reflux disease without esophagitis; 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: [Gastro-esophageal reflux disease without esophagitis] Onset: 2 Chronic Essential hypertension (3 sources) Essential hypertension; 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: [Essential (primary) hypertension] Onset: 6 07-25-2016 Chronic Hemorrhoids (19 sources) Hemorrhoids; 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: [Unspecified hemorrhoids] Onset: 2 Episodic Other aftercare (2 sources) Drug monitoring done; 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: [Encounter for therapeutic drug level monitoring] Episodic Other aftercare (2 sources) Encounter for therapeutic drug level monitoring; Translations: [Encounter for therapeutic drug level monitoring] Onset: 5 Episodic Other aftercare (2 sources) 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; Translations: [Other prison (current) drug therapy] Onset: 5 Episodic Other and unspecified benign neoplasm (19 sources) Polyp of colon; Translations: [Polyp of colon] Onset: 2 Episodic Other and unspecified benign neoplasm (16 sources) History of polyp of colon; Translations: [Personal history of colonic polyps] Onset: 3 Episodic Other gastrointestinal disorders (20 sources) Dysphagia; Translations: [Dysphagia, unspecified] Onset: 2 Episodic Other gastrointestinal disorders (2 sources) Altered bowel function; Translations: [Change in bowel habit] Onset: 2 Episodic Other gastrointestinal disorders (20 sources) Alteration in bowel elimination 07-19-2021 Episodic Other gastrointestinal disorders (1 source) Constipation, unspecified; Translations: [Constipation, unspecified] Onset: 3 Episodic Other gastrointestinal disorders (2 sources) Swollen abdomen; Translations: [Abdominal distension (gaseous)] Onset: 3 Episodic Other gastrointestinal disorders (16 sources) Abdominal bloating; Translations: [Abdominal distension (gaseous)] 05-17-2022 Episodic Other gastrointestinal disorders (14 sources) Constipation 05-17-2022 Episodic Other gastrointestinal disorders [...] Unclassified (3 sources) SUMMARY Onset: 7 03-16-2016 Viral infection (1 [...] sources) Long-term current use of anticoagulant; Translations: [custodial (current) use of 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] Onset: 01-11-2016 Episodic Other aftercare (3 sources) Patient encounter status; Translations: [Encounter for therapeutic drug level monitoring] Onset: 01-31-2016 03-11-2016 Episodic Other circulatory disease (3 sources) H/O: [...] Resolved: 02-28-2016 02-28-2016 Episodic Pulmonary heart disease (6 sources) Pulmonary embolism; Translations: [Other pulmonary embolism without acute cor pulmonale] Onset: 01-30-2016 03-11-2016 Episodic Residual codes; unclassified (3 sources) Postoperative state; Translations: [Other specified postprocedural states] Onset: 08-19-2020 08-19-2020 Episodic Unclassified (1 source) CONTACT W/AND (SUSP) EXPOS COVID-19; Translations: [CONTACT W/AND (SUSP) EXPOS COVID-19] Onset: 12-14-2021 Results Test Name Value Interpretation Reference Range Facility 37on 08-11-2024 37 *Hold amiodarone at this time. *[facility] will call you to schedule a heart ultrasound. *Follow-up with Dr. Olsen in 3 months. Normal [facility] Office Visiton 08-11-2024 Follow-up visit [id number] Shad Rodriguez 1950 M Date Provider Department Center 08/11/2024 NORI DIAZ [facility] Family History Problem Relation Age of Onset Coronary artery disease Mother Hypertension Father Bone cancer Father Family Status - Relation Status Age at Mother Father Level of Service:07689 ME OFFICE/OUTPATIENT ESTABLISHED MOD MDM 30 MIN Reason for Visit and Comments: Congestive Heart Failure [127] Coronary Artery Disease [187] Hypertension [933516] Normal [facility] CBC w/ Auto Diffon 5 Basophil Absolute 0.0 E9/L Normal 0.0-0.2 [facility] Comment on above: Performed By: #### 2 [id number] #### [facility] [address] [place] [address] Basophils/100 WBC (Bld) 0.2 % Normal 0.0-2.0 [facility] Comment on above: Performed By: #### 2 [id number] #### [facility] [address] [place] [address] Eos Absolute 0.1 E9/L Normal 0.0-0.5 [facility] Comment on above: Performed By: #### 2 [id number] #### [facility] [address] [place] [address] Eosinophils/100 WBC (Bld) 1.1 % Normal 0.0-8.0 [facility] Comment on above: Performed By: #### 2 [id number] #### [facility] [address] [place] [address] Erythrocyte distribution width (RBC) [Ratio] 15.4 % High 10.9-14.2 [facility] Comment on above: Performed By: #### 2 [id number] #### [facility] [address] [place] [address] Hematocrit (Bld) [Volume fraction] 51.9 % High 37.7-49.0 [facility] Comment on above: Performed By: #### 2 [id number] #### [facility] [address] [place] [address] Hemoglobin (Bld) [Mass/Vol] 17.4 g/dL Normal 13.5-17.5 [facility] Comment on above: Performed By: #### 2 [id number] #### [facility] [address] [place] [address] Lymph Absolute 0.8 E9/L Low 1.0-4.0 [facility] Comment on above: Performed By: #### 2 [id number] #### [facility] [address] [place] [address] Lymphocytes/100 WBC (Bld) 11.4 % Low 14.0-50.0 [facility] Comment on above: Performed By: #### 2 [id number] #### [facility] [address] [place] [address] MCH (RBC) [Entitic mass] 30.4 pg Normal 27.0-34.0 [facility] Comment on above: Performed By: #### 2 [id number] #### [facility] [address] [place] [address] MCHC (RBC) [Mass/Vol] 33.5 g/dL Normal 31.4-36.0 [facility] Comment on above: Performed By: #### 2 [id number] #### [facility] [address] [place] [address] MCV (RBC) [Entitic vol] 90.8 fL Normal 80.0-100.0 [facility] Comment on above: Performed By: #### 2 [id number] #### [facility] [address] [place] [address] [place] Absolute 0.6 E9/L Normal 0.2-1.0 [facility] Comment on above: Performed By: #### 2 [id number] #### [facility] [address] [place] [address] Monocytes/100 WBC (Bld) 8.6 % Normal 4.0-14.0 [facility] Comment on above: Performed By: #### 2 [id number] #### [facility] [address] [place] [address] Neutro Absolute 5.6 E9/L Normal 2.0-7.5 [facility] Comment on above: Performed By: #### 2 [id number] #### [facility] [address] [place] [address] Neutro Auto 78.7 % High 36.0-75.0 [facility] Comment on above: Performed By: #### 2 [id number] #### [facility] [address] [place] [address] Platelet 194.0 E9/L Normal 150.0-500.0 [facility] Comment on above: Performed By: #### 2 [id number] #### [facility] [address] [place] [address] Platelet mean volume (Bld) [Entitic vol] 9.1 fL Normal 6.4-10.8 [facility] Comment on above: Performed By: #### 2 [id number] #### [facility] [address] [place] [address] RBC 5.7 E12/L Normal 4.3-5.9 [facility] Comment on above: Performed By: #### 2 [id number] #### [facility] [address] [place] [address] WBC 7.1 E9/L Normal 4.0-11.0 [facility] Comment on above: Performed By: #### 2 [id number] #### [facility] [address] [place] [address] CEAon 07-21-2024 CEA 2.5 ng/mL Invalid Interpretation Code [facility] Comment on above: Result Comment: 'NON -SMOKER < 2.5' 'SMOKER < 5.0' The concentration of CEA in a given specimen determined by different manufacturers can vary due to differences in assay methods and reagent specificity. Values obtained with different assay methods cannot be used interchangeably. The methodology used to perform this test was chemiluminescence using [employer]'s Access CEA reagent. Performed By: #### 2 [id number] #### [facility] [address] [place] [address] CHEMISTRYOrdered By: SYSTEM SYSTEM on 07-21-2024 Albumin [Mass/Vol] 4.3 g/dL Normal 3.3 - 5.0 gm/dL [facility] Albumin/Globulin [Mass ratio] 1.8 {ratio} Normal 1.1 - 2.2 [facility] ALP [Catalytic activity/Vol] 100 [iU]/d High 21 - 98 Int._Unit/L [facility] ALT No additional P-5'-P [Catalytic activity/Vol] 27 [iU]/d Normal 6 - 46 Int._Unit/L [facility] Anion gap [Moles/Vol] 13 mmol/L Normal 6 - 16 mEq/L R [facility] AST [Catalytic activity/Vol] 22 [iU]/d Normal 5 - 43 Int._Unit/L [facility] Bilirubin [Mass/Vol] 0.7 mg/dL Normal 0.0 - 1 .1 mg/dL [facility] Calcium [Mass/Vol] 9.2 mg/dL Normal 8.9 - 11. 1 mg/dL [facility] CEA 2.5 ng/mL Invalid Interpretation Code [facility] Comment [...] to perform this test was chemiluminescence using [employer]'s Access CEA reagent. Chloride [Moles/Vol] 105 mmol/L Normal 101 - 1 11 mmol/L [facility] CO2 [Moles/Vol] 28 mmol/L Normal 21 - 31 mmol/L [facility] Cobalamin (Vitamin B12) [Mass/Vol] 353 pg/mL Normal 50 - 1500 pg/mL [facility] Creatinine [Mass/Vol] 1.4 mg/dL High 0.5 - 1.3 mg/dL [facility] Ferritin [Mass/Vol] 50 ng/mL Normal 24 - 336 ng/mL [facility] Folate [Mass/Vol] ng/mL Normal >=6.7ng/mL [facility] GFR/1.73 sq M.predicted MDRD (S/P/Bld) [Vol rate/Area] 53 mL/min/1.73 m2 Low >=59mL/min/1 .73 m2 [facility] Globulin (S) [Mass/Vol] 2.4 g/dL Normal 1.4 - 4.0 gm/dL [facility] Glucose [Mass/Vol] 185 mg/dL Normal 55 - 199 mg/dL [facility] Iron [Mass/Vol] 53 ug/dL Normal 35 - 153 mcg/dL [facility] Iron binding capacity [Mass/Vol] 307 ug/dL Normal 250 - 400 mcg/dL [facility] Iron saturation [Mass fraction] 17 % Low 20 - 50 % [facility] Potassium [Moles/Vol] 4.2 mmol/L Normal 3.5 - 5.3 mmol/L [facility] Protein [Mass/Vol] 6.7 g/dL Normal 6.0 - 7.8 gm/dL [facility] Sodium [Moles/Vol] 142 mmol/L Normal 135 - 145 mmol/L [facility] Transferrin [Mass/Vol] 219 mg/dL Normal 200 - 370 mg/dL [facility] Urea nitrogen [Mass/Vol] 20 mg/dL Normal 5 - 21 mg/dL [facility] Urea nitrogen/Creatinine [Mass ratio] 14 mg/mg Normal 10 - 20 [facility] CMPon 07-21-2024 Albumin [Mass/Vol] 4.3 g/dL Normal 3.3-5.0 [facility] Comment on above: Performed By: #### 2 [id number] #### [facility] [address] [place] [address] Albumin/Globulin [Mass ratio] 1.8 {ratio} Normal 1.1-2.2 [facility] Comment on above: Performed By: #### 2 [id number] #### [facility] [address] [place] [address] Alk Phos 100 Int._Unit/L High 21-98 [facility] Comment on above: Performed By: #### 2 [id number] #### [facility] [address] [place] [address] ALT 27 Int._Unit/L Normal 6-46 [facility] Comment on above: Performed By: #### 2 [id number] #### [facility] [address] [place] [address] Anion gap [Moles/Vol] 13 mmol/L Normal 6-16 [facility] Comment on above: Performed By: #### 2 [id number] #### [facility] [address] [place] [address] AST 22 Int._Unit/L Normal 5-43 [facility] Comment on above: Performed By: #### 2 [id number] #### [facility] [address] [place] [address] Bili Total 0.7 mg/dL Normal 0.0-1.1 [facility] Comment on above: Performed By: #### 2 [id number] #### [facility] [address] [place] [address] BUN/Creat Ratio 14 No Units Normal 10-20 [facility] Comment on above: Performed By: #### 2 [id number] #### [facility] [address] [place] [address] Calcium [Mass/Vol] 9.2 mg/dL Normal 8.9-11.1 [facility] Comment on above: Performed By: #### 2 [id number] #### [facility] [address] [place] [address] Chloride [Moles/Vol] 105 mmol/L Normal 101-111 [facility] Comment on above: Performed By: #### 2 [id number] #### [facility] [address] [place] [address] CO2 [Moles/Vol] 28 mmol/L Normal 21-31 [facility] Comment on above: Performed By: #### 2 [id number] #### [facility] [address] [place] [address] Creatinine [Mass/Vol] 1.4 mg/dL High 0.5-1.3 [facility] Comment on above: Performed By: #### 2 [id number] #### [facility] [address] [place] [address] Globulin (S) [Mass/Vol] 2.4 g/dL Normal 1.4-4.0 [facility] Comment on above: Performed By: #### 2 986157 #### [facility] [address] [place] [address] Glucose [Mass/Vol] 185 mg/dL Normal 55-199 [facility] Comment on above: Performed By: #### 2 [id number] #### [facility] [address] [place] [address] Potassium [Moles/Vol] 4.2 mmol/L Normal 3.5-5.3 [facility] Comment on above: Performed By: #### 2 978920 #### [facility] [address] [place] [address] Protein [Mass/Vol] 6.7 g/dL Normal 6.0-7.8 [facility] Comment on above: Performed By: #### 2 [id number] #### [facility] [address] [place] [address] Sodium [Moles/Vol] 142 mmol/L Normal 135-145 [facility] Comment on above: Performed By: #### 2 148036 #### [facility] [address] [place] [address] Urea nitrogen [Mass/Vol] 20 mg/dL Normal 5-21 [facility] Comment on above: Performed By: #### 2 [id number] #### [facility] [address] [place] [address] Ferritinon 07-21-2024 Ferritin Lvl 50 ng/mL Normal 24-336 [facility] Comment on above: Performed By: #### 2 [id number] #### [facility] [address] [place] [address] Folateon 07-21-2024 Folate Lvl >22.3 Normal >=6.7 [facility] Comment on above: Performed By: #### 2 [id number] #### [facility] [address] [place] [address] HEMATOLOGYOrdered By: Ced Chase on 07-21-2024 Basophils/100 WBC (Bld) 0.2 % Normal 0.0 - 2.0 % Remisol Heme Basophils/Leukocytes Auto (Bld) [Pure # fraction] 0.0 E9/L Normal 0.0 - 0.2 E9/L Remisol Heme Eosinophils (Bld) [#/Vol] 0.1 E9/L Normal 0.0 - 0.5 E9/L Remisol Heme Eosinophils/100 WBC (Bld) 1.1 % Normal 0.0 - 8.0 % Remisol Heme Erythrocyte distribution width (RBC) [Ratio] 15.4 % High 10.9 - 14.2 % Remisol Heme Hematocrit (Bld) [Volume fraction] 51.9 % High 37.7 - 49.0 % Remisol Heme Hemoglobin (Bld) [Mass/Vol] 17.4 g/dL Normal 13.5 - 17.5 gm/dL Remisol Heme Lymphocytes (Bld) [#/Vol] 0.8 E9/L Low 1.0 - 4.0 E9/L Remisol Heme Lymphocytes/100 WBC (Bld) 11.4 % Low 14.0 - 50.0 % Remisol Heme MCH (RBC) [Entitic mass] 30.4 pg Normal 27.0 - 34.0 pg Remisol Heme MCHC (RBC) [Mass/Vol] 33.5 g/dL Normal 31.4 - 36.0 gm/dL Remisol Heme MCV (RBC) [Entitic vol] 90.8 fL Normal 80.0 - 100.0 fL Remisol Heme Monocytes (Bld) [#/Vol] 0.6 E9/L Normal 0.2 - 1.0 E9/L Remisol Heme Monocytes/100 WBC (Bld) 8.6 % Normal 4.0 - 14.0 % Remisol Heme Neutrophils (Bld) [#/Vol] 5.6 E9/L Normal 2.0 - 7.5 E9/L Remisol Heme Neutrophils/100 WBC (Bld) 78.7 % High 36.0 - 75.0 % Remisol Heme Platelet mean volume (Bld) [Entitic vol] 9.1 fL Normal 6.4 - 10.8 fL Remisol Heme Platelets (Bld) [#/Vol] 194.0 E9/L Normal 150.0 - 500.0 E9/L Remisol Heme RBC (Bld) [#/Vol] 5.7 E12/L Normal 4.3 - 5.9 E12/L Remisol Heme WBC corrected for nucl RBC Auto (Bld) [#/Vol] 7.1 E9/L Normal 4.0 - 11.0 E9/L [facility] Heme Ironon 07-21-2024 Iron 53 microgram/dL Normal 35-153 [facility] Comment on above: Performed By: #### 2 [id number] #### [facility] [address] [place] [address] Iron Saturationon 07-21-2024 Iron Sat 17 % Low 20-50 [facility] Comment on above: Performed By: #### 2 [id number] #### [facility] [address] [place] [address] TIBC 307 microgram/dL Normal 250-400 [facility] Comment on above: Performed By: #### 2 613865 #### [facility] [address] [place] [address] Transferrinon 07-21-2024 Transferrin [Mass/Vol] 219 mg/dL Normal 200-370 [facility] Comment on above: Performed By: #### 2 771376 #### [facility] [address] [place] [address] Vit B12on 07-21-2024 Cobalamin (Vitamin B12) [Mass/Vol] 353 pg/mL Normal 50-1500 [facility] Comment on above: Performed By: #### 2 388453 #### [facility] [address] [place] [address] eGFRon 07-21-2024 eGFR 53 mL/min/1.73 m2 Low >=59 [facility] Comment on above: Performed By: #### 1 [id number] #### [facility] [address] [place] [address] Oncology Progress Noteon Oncology Progress Note Chief Complaint Hx Colon; has been have stomach pain with diarrhea Oncological History/ROS/PE/Asses sment and Plan 72 year old male referred [...] and referred them to colorectal team at [facility] bloating constipation then turns to diarrhea, diarrhea [...] a rectal manometry and was done at [facility]. Previous work up: Labs: 03/28/23 EGD: 10/05/21 Colonoscopy: 10/05/21 Imaging: US 03/28/23 07/25/23 he complains of a cyclical diarrhea. He notes every 5 or 6 days he gets a course of nausea without vomiting. 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 He gets diarrhea maybe 8 [...] changes of the lumbar spine. Followup at [facility] rectal team showed normal rectal manometry. [...] Plan Rectal Cancer- T3N1 rectal adenocarcinoma dx 2016 He received neoadjuvant chemotherapy and radiation in [...] 2017 dx (more content not included)... Normal [facility] Ambulatory Visit Summaryon 0 07-25-2023 Ambulatory Visit Summary SHAD RODRIGUEZ :1950 Visit Date:07/25/2023 Ambulatory Visit Instructions Your Care Team Attending Physician - Dougie Harmon DO Primary Care Physician - Shad Dyson MD [...] Colonoscopy (10/05/2021), Colonoscopy (03/02/2017), colostomy reversal, EGD (esophagogastroduode noscopy) gastric outlet reduction, Pacemaker battery. Discharge Vitals Temperature (Oral) 36.8 ?C Heart Rate (Peripheral) 62 Respiratory Rate 16 Blood Pressure 86/55 Height 167 cm Weight 89.9 kg BMI 32.23 What to do next You Need to Schedule the Following Appointments Follow Up with Dougie Harmon DO, ONC When: Comments: f/u in 6 months. no imaigng. cbc, cmp, cea, iron studies, b12, foalte prior to f/u. Where: [facility] [address] [place] [address] [place] [address]- [phone] Fax Business (1) Medications What How Much [...] for choosing us for your care. Normal [facility] Consent for Treatmenton 07-12 Consent for Treatment [id number] #1.00TIFF Normal [facility] CBC w/ Auto Diffon 4 Basophils/100 WBC (Bld) 0.2 % Normal 0.0-2.0 [facility] Comment on above: Performed By: #### 2 [id number] #### [facility] [address] [place] [address] Basophils/Leukocytes Auto (Bld) [Pure # fraction] 0.0 E9/L Normal 0.0-0.2 [facility] Comment on above: Performed By: #### 2 462496 #### [facility] [address] [place] [address] Eosinophils (Bld) [#/Vol] 0.3 E9/L Normal 0.0-0.5 [facility] Comment on above: Performed By: #### 2 963743 #### [facility] [address] [place] [address] Eosinophils/100 WBC (Bld) 4.1 % Normal 0.0-8.0 [facility] Comment on above: Performed By: #### 2 523896 #### [facility] [address] [place] [address] Erythrocyte distribution width (RBC) [Ratio] 15.8 % High 10.9-14.2 [facility] Comment on above: Performed By: #### 2 713586 #### [facility] [address] [place] [address] Hematocrit (Bld) [Volume fraction] 46.2 % Normal 37.7-49.0 [facility] Comment on above: Performed By: #### 2 958843 #### [facility] [address] [place] [address] Hemoglobin (Bld) [Mass/Vol] 15.8 g/dL Normal 13.5-17.5 [facility] Comment on above: Performed By: #### 2 195705 #### [facility] [address] [place] [address] Lymphocytes (Bld) [#/Vol] 0.9 E9/L Low 1.0-4.0 [facility] Comment on above: Performed By: #### 2 157827 #### [facility] [address] [place] [address] Lymphocytes/100 WBC (Bld) 12.6 % Low 14.0-50.0 [facility] Comment on above: Performed By: #### 2 068941 #### [facility] [address] [place] [address] MCH (RBC) [Entitic mass] 31.1 pg Normal 27.0-34.0 [facility] Comment on above: Performed By: #### 2 299448 #### [facility] [address] [place] [address] MCHC (RBC) [Mass/Vol] 34.1 g/dL Normal 31.4-36.0 [facility] Comment on above: Performed By: #### 2 100308 #### [facility] [address] [place] [address] MCV (RBC) [Entitic vol] 91.1 fL Normal 80.0-100.0 [facility] Comment on above: Performed By: #### 2 628028 #### [facility] [address] [place] [address] Monocytes (Bld) [#/Vol] 0.5 E9/L Normal 0.2-1.0 [facility] Comment on above: Performed By: #### 2 027816 #### [facility] [address] [place] [address] Neutrophils (Bld) [#/Vol] 5.3 E9/L Normal 2.0-7.5 [facility] Comment on above: Performed By: #### 2 361018 #### [facility] [address] [place] [address] Neutrophils/100 WBC (Bld) 75.9 % High 36.0-75.0 [facility] Comment on above: Performed By: #### 2 957908 #### [facility] [address] [place] [address] Platelet 216.0 E9/L Normal 150.0-500.0 [facility] Comment on above: Performed By: #### 2 074514 #### [facility] [address] [place] [address] Platelet mean volume (Bld) [Entitic vol] 8.8 fL Normal 6.4-10.8 [facility] Comment on above: Performed By: #### 2 988325 #### [facility] [address] [place] [address] RBC (Bld) [#/Vol] 5.1 E12/L Normal 4.3-5.9 [facility] Comment on above: Performed By: #### 2 088607 #### [facility] [address] [place] [address] WBC corrected for nucl RBC Auto (Bld) [#/Vol] 7.0 E9/L Normal 4.0-11.0 [facility] Comment on above: Performed By: #### 2 970261 #### [facility] [address] [place] [address] CEAon 07-23-2023 CEA 1.4 ng/mL Invalid Interpretation Code [facility] Comment on above: Result Comment: 'NON -SMOKER < 2.5' 'SMOKER < 5.0' The concentration of CEA in a given specimen determined by different manufacturers can vary due to differences in assay methods and reagent specificity. Values obtained with different assay methods cannot be used interchangeably. The methodology used to perform this test was chemiluminescence using [employer]'s Access CEA reagent. Performed By: #### 2 828357 #### [facility] [address] [place] [address] CHEMISTRYOrdered By: SYSTEM SYSTEM on 07-23-2023 Albumin [...] perform this test was chemiluminescence using [employer]'s Access CEA reagent. Chloride [Moles/Vol] 107 mmol/L [...] 07-23-2023 Albumin [Mass/Vol] 4.1 g/dL Normal 3.3-5.0 [facility] Comment on above: Performed By: #### 2 688921 #### [facility] [address] [place] [address] Albumin/Globulin (S) [Mass conc ratio] 1.7 Normal 1.1-2.2 [facility] Comment on above: Performed By: #### 2 064873 #### [facility] [address] [place] [address] ALP [Catalytic activity/Vol] 93 Int._Unit/L Normal 21-98 [facility] Comment on above: Performed By: #### 2 588490 #### [facility] [address] [place] [address] ALT No additional P-5'-P [Catalytic activity/Vol] 30 Int._Unit/L Normal 6-46 [facility] Comment on above: Performed By: #### 2 856814 #### [facility] [address] [place] [address] Anion gap [Moles/Vol] 12 mmol/L Normal 6-16 [facility] Comment on above: Performed By: #### 2 994345 #### [facility] [address] [place] [address] AST [Catalytic activity/Vol] 25 Int._Unit/L Normal 5-43 [facility] Comment on above: Performed By: #### 2 847538 #### [facility] [address] [place] [address] Bilirubin [Mass/Vol] 0.7 mg/dL Normal 0.0-1.1 [facility] Comment on above: Performed By: #### 2 948164 #### [facility] [address] [place] [address] Calcium [Mass/Vol] 9.2 mg/dL Normal 8.9-11.1 [facility] Comment on above: Performed By: #### 2 693123 #### [facility] [address] [place] [address] Chloride [Moles/Vol] 107 mmol/L Normal 101-111 [facility] Comment on above: Performed By: #### 2 014136 #### [facility] [address] [place] [address] CO2 [Moles/Vol] 26 mmol/L Normal 21-31 [facility] Comment on above: Performed By: #### 2 209746 #### [facility] [address] [place] [address] Creatinine [Mass/Vol] 1.3 mg/dL Normal 0.5-1.3 [facility] Comment on above: Performed By: #### 2 134451 #### [facility] [address] [place] [address] Globulin (S) [Mass/Vol] 2.4 g/dL Normal 1.4-4.0 [facility] Comment on above: Performed By: #### 2 436103 #### [facility] [address] [place] [address] Glucose [Mass/Vol] 170 mg/dL Normal 55-199 [facility] Comment on above: Performed By: #### 2 529435 #### [facility] [address] [place] [address] Potassium [Moles/Vol] 4.0 mmol/L Normal 3.5-5.3 [facility] Comment on above: Performed By: #### 2 081349 #### [facility] [address] [place] [address] Protein [Mass/Vol] 6.5 g/dL Normal 6.0-7.8 [facility] Comment on above: Performed By: #### 2 920812 #### [facility] [address] [place] [address] Sodium [Moles/Vol] 141 mmol/L Normal 135-145 [facility] Comment on above: Performed By: #### 2 559050 #### [facility] [address] [place] [address] Urea nitrogen [Mass/Vol] 19 mg/dL Normal 5-21 [facility] Comment on above: Performed By: #### 2 308415 #### [facility] [address] [place] [address] Urea nitrogen/Creatinine [Mass ratio] 15 No Units Normal 10-20 [facility] Comment on above: Performed By: #### 2 228350 #### [facility] [address] [place] [address] Consent for Treatmenton 07-12 Consent for Treatment [id number] #1.00TIFF Normal [facility] Ferritinon 07-23-2023 Ferritin [Mass/Vol] 43 ng/mL Normal 24-336 [facility]: Performed By: #### 2 238098 #### [facility] [address] [place] [address] Folateon 07-23-2023 Folate [Mass/Vol] ng/mL Normal >=6.7 [facility] Comment on above: Performed By: #### 2 433676 #### [facility] [address] [place] [address] HEMATOLOGYOrdered By: SYSTEM SYSTEM on 07-23-2023 Basophils/100 [...] 07-23-2023 Iron [Mass/Vol] 83 microgram/dL Normal 35-153 [facility] Comment on above: Performed By: #### 2 970983 #### [facility] [address] [place] [address] Iron Saturationon 07-23-2023 Iron binding capacity [Mass/Vol] 302 microgram/dL Normal 250-400 [facility] Comment on above: Performed By: #### 2 730095 #### [facility] [address] [place] [address] Iron saturation [Mass fraction] 27 % Normal 20-50 [facility] Comment on above: Performed By: #### 2 661442 #### [facility] [address] [place] [address] Lipase Levelon 07-23-2023 Lipase [Catalytic activity/Vol] 29 U/L Normal 13-58 [facility] Comment on above: Performed By: #### 2 780230 #### [facility] [address] [place] [address] Transferrinon 07-23-2023 Transferrin [Mass/Vol] 216 mg/dL Normal 200-370 [facility] Comment on above: Performed By: #### 2 665931 #### [facility] [address] [place] [address] Vit B12on 07-23-2023 Cobalamin (Vitamin B12) [Mass/Vol] 305 pg/mL Normal 50-1500 [facility] Comment on above: Performed By: #### 2 377321 #### [facility] [address] [place] [address] CT Abdomen/Pelvis w/ Contras ton 07-11-2023 CT [...] Oral contrast amount in ml's: 900 Normal [facility] Consultation Noteon 07-09-19 Consultation Note [id number] #1.00TIFF Normal [facility] Oncology Progress Noteon Oncology Progress Note Chief Complaint HX PE, HX Colon CA; No Concerns, has had recent pacemaker placement/ defibulator. Diagnoses History of colon cancer in adulthood (Z85.038: Personal history of other malignant neoplasm of large intestine) Oncological History/ROS/PE/Asses sment and Plan 72 year old male referred [...] and referred them to colorectal team at [facility] bloating constipation then turns to diarrhea, diarrhea [...] a rectal manometry and was done at [facility]. Previous work up: Labs: 03/28/23 EGD: 10/05/21 Colonoscopy: 10/05/21 Imaging: US 03/28/23 Impression and Plan New abdominal complaints. will image his abdomen and chest. He had a high risk rectal cancer. there is still risk for recurrence although small. 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 Normal [facility] Consent for Treatmenton 06-12 Consent for Treatment [id number] #1.00TIFF [facility] CHEMISTRYOrdered By: SYSTEM SYSTEM on 07-02-2023 Creatinine [Mass/Vol] 1.3 mg/dL Normal 0.5 - 1.3 mg/dL Remisol Chem eGFR 59 mL/min/1.73 m2 Normal >=59mL/min /1 .73 m2 Remisol Chem Consent for Treatmenton 06-12 Consent for Treatment [id number] #1.00TIFF [facility] Creatinineon 07-02-2023 Creatinine [Mass/Vol] 1.3 mg/dL Normal 0.5-1.3 [facility] Comment on above: Performed By: #### 2 533563 #### [facility] [address] 6[address]457 Physician Orderon 07-02-2023 Physician Order [id number] 45#1.00TIFF [facility] eGFRon 07-02-2023 eGFR 59 mL/min/1.73 m2 Normal >=59 [facility] Comment on above: Order Comment: Order added by Discern Expert. Performed By: #### 1 [id number] #### [facility] [address] 6[address]457 Consent for Treatmenton 06-11 Consent for Treatment [id number] #1.00TIFF [facility] CNOVon 06-25-2023 CNOV Office Visit ([facility]) SHAD RODRIGUEZ ([id number]) 1950 M Date Time Provider Department 06/25/23 11:30 AM NANCI MILLER [facility] During your visit today, we recorded the following information about you: Nanci Miller APRN.[facility] 06/25/2023 11:54 AM Signed [facility] RECTAL SURGERY Reason for visit: Review anorectal manometry and EMG results History of Present Illness: Shad Rodriguez is a 72 year old MALE [...] mL by mouth once daily as needed. ipratropium-albutero l (DUONEB) 0.5 mg-3 mg(2.5 mg base)/3 mL [...] mouth DAILY (6 AM). 0 No current facility-administere d medications for this visit. ALLERGIES Allergen Reactions Penicillins Unknown Ragweed Shortness of Breath FAMILY HISTORY Problem Relation Age of Onset other (bone cance (more content not included)... Normal [facility] RAD - MRI Screening Formon 0 05-09-2023 RAD - MRI Screening Form [id number] #1.00TIFF Normal [facility] Physician Orderon 05-07-2023 Physician Order [id number] #1.00TIFF Normal [facility] Physician Orderon 05-03-2023 Physician Order [id number] #1.00TIFF Normal [facility] CNPNon [facility] SHAD RODRIGUEZ ([id number]) 1950 M Date Time Provider Department 04/26/23 NANCI MILLER [facility] During your visit today, we recorded the following information about you: Teresa Moore 04/26/2023 1:11 PM Signed Called and LVM regarding referral for Manometry by [facility]. Allergies As of Date: 04/26/2023 Noted Allergy Reaction PENICILLINS 06/22/2015 16 - Unknown RAGWEED 12/05/2015 12 - Shortness of Breath Date Reviewed: 09/05/2020 Reviewed by: Belem Koch APRN.[employer] - Fully Assessed Reason for Visit: Appointment [...] by mouth once daily as needed. - ipratropium-albutero l (DUONEB) 0.5 mg-3 mg(2.5 mg base)/3 mL [...] Status:Closed by TERESA MOORE on 04/26/23 [facility] 04-24-2023 Reminders - From: Ivelisse ENCISO, Jessica Che To: Claudine BARAHONA, Bev S; Sent: 04/24/2023 10:23:02 EDT ! Show up: 04/24/2023 10:23:02 EDT Actions: Quick Reminder 1 Due Date/Time: 04/25/2023 10:22:00 EDT Reminder Comments: Fat seen in the pancreas. No further workup needed Results: Date Result Type Result Name 04/23/2023 19:[address] Abdomen w/ + w/o Contrast made patient aware, verbalized clear understanding. Normal [facility] CT Abdomen w/ + w/o Contrast [...] Oral contrast amount in ml's: 450 Normal [facility] Consent for Treatmenton 04-11 Consent for Treatment [id number] #1.00TIFF Normal [facility] CHEMISTRYOrdered By: SYSTEM SYSTEM on 04-19-2023 Creatinine [Mass/Vol] 1.6 mg/dL High 0.5 - 1.3 mg/dL Remisol Chem eGFR 46 mL/min/1.73 m2 Low >=59mL/min /1 .73 m2 Remisol Chem Consent for Treatmenton Consent for Treatment [id number] #1.00TIFF Normal [facility] Creatinineon 04-19-2023 Creatinine [Mass/Vol] 1.6 mg/dL High 0.5-1.3 [facility] Comment on above: Performed By: #### 1 [id number], [id number] ####[facility] [address] [place] [address] Physician Orderon 04-19-2023 Physician Order [id number] 49#1.00TIFF Normal [facility] eGFRon 04-19-2023 eGFR 46 mL/min/1.73 m2 Low >=59 [facility] Comment on above: Order Comment: Order added by Discern Expert. Performed By: #### 1 [id number], [id number] ####[facility] [address] [place] [address] Gastroenterology Office/Clin ic Noteon 04-15-2023 Gastroenterology Office/Clinic [...] cold forceps and then dilated using 56 [place] dilator History of Present Illness pt [...] Bloating (R14.0: Abdominal (more content not included)... [facility] Comment on above: Result Comment: Elec tronically Signed By: Ivelisse ENCISO, Jessica Che\.br\Date and Time Signed: 04/15/23 13:07 EST Lab Reportson 04-15-2023 Lab Reports [id number] #1.00TIFF [facility] OT - Otheron 04-15-2023 OT - Other [id number] 9#1.00TIFF [facility] RAD - Ultrasound Reporton RAD - Ultrasound Report [id number] #1.00TIFF [facility] CHEMISTRYOrdered By: Lab ROP User on 10-02-2022 INR Coag (Bld) [Relative time] 2.1 {INR} High 0.7 - 1.2 [facility] Subsection POC Device SN [id number] Invalid Interpretation Code [facility] Subsection POC Username PARISA HYDE Invalid Interpretation Code [facility] Subsection POCT PT 23.2 s High 8.0 - 15.0 second(s) [facility] Subsection Sodium [Moles/Vol] [id number] mmol/L Invalid Interpretation Code [facility] Subsection COAGULATIONOrdered By: Elenita Hyde on 10-02-2022 INR Coag (Bld) [Relative time] 2.1 {INR} High 0.7 - 1.2 [facility] POCT PT 23.2 s High 8 - 15 second(s) [facility] POCT PT/INRon 10-02-2022 POCT INR 2.1 High .7-1.2 [facility] Comment on above: Performed By: #### 2 [id number] ####[facility] [address] [place] [address] POCT PT 23.2 second(s) High 8.0-15.0 [facility] Comment on above: Performed By: #### 2 [id number] ####[facility] [address] [place] [address] CHEMISTRYOrdered By: Lab ROP User on 08-21-2022 POC Device SN [id number] Invalid Interpretation Code [facility] [place] Subsection POC Username CHRISTINA HAINES Invalid Interpretation Code [facility] Subsection Sodium [Moles/Vol] 208733039 mmol/L Invalid Interpretation Code [facility] Subsection COAGULATIONOrdered By: Ebenezer Haines on 08-21-2022 INR Coag (Bld) [Relative time] 2.1 {INR} High 0.7 - 1.2 [facility] [place] [facility] POCT PT 23.3 s High 8 - 15 second(s) [facility] [place] [facility] POCT PT/INRon 08-21-2022 POCT INR 2.1 High .7-1.2 [facility] Comment on above: Performed By: #### 2 [id number] ####[facility] [address] [place] [address] POCT PT 23.3 second(s) High 8.0-15.0 [facility] Comment on above: Performed By: #### 2 [id number] ####[facility] [address] [place] [address] Progress Note-Physicianon Progress Note-Physician Patient: SHAD RODRIGUEZ [...] stroke: no 4. Serious co-morbid conditions (recent PR, anemia with Hct <30%, CRI with SCr [...] results, # 90 tab(s), Refills(s) 0, [id number], 167.6, cm, 01/02/19 13:46:00 EST, Height/Length Measured, 95.8, kg, 01/02/19 13:46:00 EST, Weight Measured Eliquis 2.5 mg oral tablet: 2.5 mg = 1 tab(s), Oral, BID, # 60 tab(s), Refills(s) 5, Pharmacy: [facility]/pharmacy #[id number] Metamucil 525 mg oral capsule: 2,625 mg = 5 cap(s), Oral, Daily, X 90 day(s), # 450 cap(s), Refills(s) 3, Pharmacy: [facility]/pharmacy #[id number], 167.6, cm, 06/27/22 8:28:00 EDT, Height/Length Dosing, 94.9, kg, 06/27/22 8:28:00 EDT, Weight Dosing albuterol HFA 90 mcg/inh MDI: 2 puff(s), Inhalation, QID for wheezing, 6.7 gram, Refill(s) 0, [facility]/pharmacy #[id number] predniSONE 10 mg Tab: See Instructions, Oral 6 tabs for 1 day,5 tabs for 1 day,4 tabs for 1 day,3 tabs for 1 day,2 tabs for 1 day,1 tab for 1 day, # 21 tab(s), Refills(s) 0, Pharmacy: [facility]/pharmacy #[id number] Documented Medications Documented Immodium A-D [...] list: All Problems Bloating / SNOMED CT 870902776 / Confirmed Constipation / SNOMED CT 75276508 / Confirmed Diverticulosis / SNOMED CT 0241752241 / Confirmed Acid reflux / SNOMED CT 775901350 / Confirmed Hemorrhoids / SNOMED CT 106454184 / Confirmed History of rectal cancer / SNOMED CT 7391488067 / Confirmed History of colon polyps / SNOMED CT 1571049300 / Confirmed Hypercoagulable state / SNOMED CT 511638134 / Confir (more content not included)... Normal [facility] Comment on above: Result Comment: Elec tronically Signed By: Aggie Hollingsworth\chelsy\Date and Time Signed: 08/21/22 08:26 EDT CHEMISTRYOrdered By: Lab ROP User on 07-10-2022 POC Device SN [id number] Invalid Interpretation Code [facility] Subsection POC Username SHAYY CAIN Invalid Interpretation Code [facility] Subsection Sodium [Moles/Vol] 926392538 mmol/L Invalid Interpretation Code [facility] Subsection COAGULATIONOrdered By: Elenita Hyde on 01-09-2022 POCT INR 2.8 High 0.7 - 1.2 [facility] [place] [facility] POCT PT 30.2 High 8 - 15 [facility] [place] [facility] CHEMISTRYOrdered By: SYSTEM SYSTEM on 12-27-2021 [...] - 11.0 E9/L [facility] HemeAutoSS Covid-19 PCR (CVDTB)on SARS-CoV-2 (COVID-19) RNA KELLY+probe Ql (Unsp spec) Detected Critically abnormal NOT DETECTED [facility] Comment on above: Result Comment: This test is not yet approved or cleared by the [place] FDA. When there are no FDA-approved or cleared tests available, and other criteria are met, FDA can make tests available under an emergency access mechanism called an Emergency Use Authorization (EUA). The EUA for this test is supported by the [place] of Health and Human Service's (HHS's) declaration [...] used). Performed By: #### C VDTB #### [facility] [address] [place] [address] Dr. Kayli Perez INFLUENZA A AND B AGon 12-14 [facility] SEE BELOW Normal [facility] Comment on above: Result Comment: Nega tive for Flu A protein angiten. Infection due to Flu A cannot be ruled out. Flu A angiten in the sample may be below the detection limit of the test. Performed By: #### I NFLUAB #### [facility] [address] [place] [address] Dr. Kay[facility] BEL[facility] Normal [facility] Comment on above: Result Comment: Nega tive for Flu B protein antigen. Infection due to Flu B cannot be ruled out. Flu B antigen in the sample may be below the detection limit of the test. Performed By: #### I NFLUAB #### [facility] [address] [place] [address] Dr. Kayli Perez INFLUENZA A AG Negative Normal NEGATIVE SEE COMMENT [facility] Comment on above: Performed By: #### I NFLUAB #### [facility] [address] [place] [address] Dr. Kayli Perez INFLUENZA B AG Negative Normal NEGATIVE SEE COMMENT [facility] Comment on above: Performed By: #### I NFLUAB #### [facility] [address] [address] [address] Kayli Perez INTERNAL CONTROLS Within Normal Limits Normal Wi thin Normal Limits [facility] Comment on above: Performed By: #### I NFLUAB #### [facility] [address] [address] [address] Kayli Perez CHEMISTRYOrdered By: Christina Haines on 11-28-2021 INR POC FT 2.5 [facility] [place] [facility] PT POC FT 30.3 s High 10.8 - 13.6 second(s) [facility] [place] [facility] CHEMISTRYOrdered By: Parisa Hyde on 10-13-2021 INR POC FT 2.4 [facility] [place] [facility] PT POC FT 28.9 s High 10.8 - 13.6 second(s) [facility] [place] [facility] CHEMISTRYOrdered By: Shayy Cain on 10-03-2021 INR POC FT 2.6 [facility] [place] [facility] PT POC FT 31.6 s High 10.8 - 13.6 second(s) [facility] [place] [facility] CHEMISTRYOrdered By: SYSTEM SYSTEM on 06-23-2021 [...] 1 11 mmol/L [facility] Remisol CO2 [Moles/Vol] 25 mmol/L Normal 21 - 31 mmol/L [facility] Remisol Creatinine [Mass/Vol] 1.2 mg/dL Normal 0.5 - 1.3 mg/dL [facility] Remisol GFR/1.73 sq M.predicted among blacks MDRD (S/P/Bld) [Vol rate/Area] mL/min/1.73 m2 Normal >=59mL/min/1 .73 m2 [facility] Chem S GFR/1.73 sq M.predicted among non-blacks MDRD (S/P/Bld) [Vol rate/Area] 60 mL/min/1.73 m2 Normal >=59mL/min/1 .73 m2 [facility] Chem S Globulin (S) [Mass/Vol] 3.0 g/dL Normal 1.4 - 4.0 gm/dL [facility] Remisol Glucose [Mass/Vol] 124 mg/dL Normal 55 - 199 mg/dL [facility] Remisol Potassium [Moles/Vol] 3.9 mmol/L Normal 3.5 - 5.3 mmol/L [facility] Remisol Protein [Mass/Vol] 6.8 g/dL Normal 6.0 [...] 10 - 20 [facility] Remisol HEMATOLOGYOrdered By: [id number] [employer] SYSTEM on 06-14-2021 Basophils/100 WBC (Bld) 0.3 [...] HemeAutoSS Progress Noteon 07-02-2019 Progress Note [address] [place] [address] Progress Note Signed:[id number] Name: SHAD RODRIGUEZ MRUN: [id number] : 1950 Loc: 3S Age / Sex: 68/ M Adm Status: DIS Leonor Adm Date:06/03/19 Room/Bed: [facility] Date of Service 06/04/19 Subjective (ROS) [...] No Symptoms Reported Psychiatric: No Symptoms Reported Hematological/Lympha tic: No Symptoms Reported Objective (Exam) Admission Weight/BMI [...] (Auto) 12.8 % (24.0-44.0) L 06/05/19 05:34 [place] % (Auto) 7.5 % (1.7-9.3) 06/05/19 05:34 Eos % (Auto) 1.3 % (0.0-5.0) 06/05/19 05:34 Baso % (Auto) 0.3 % (0.0-1.0) 06/05/19 05:34 Neut # (Auto) 4.5 10 3/uL (1.5-6.7) 06/05/19 05:34 Lymph # (Auto) 0.7 10 3/uL (1.0-3.5) L 06/05/19 05:34 [place]ette # (Auto) 0.4 10 3/uL (0.2-0.8) 06/05/19 [...] Chronic 07/02/19 0908 CC: Fercho GALLO-C, Danii A Normal [facility] CBC WITH AUTO DIFFon 020 Basophils (Bld) [#/Vol] 0.0 10 3/uL Normal 0.0-0.2 [facility] Comment on above: Performed By: #### P T #### [facility] - [address] [address] Basophils/100 WBC (Bld) 0.3 % Normal 0.0-1.0 [facility] Comment on above: Performed By: #### P T #### [facility] - [address] [address] Eosinophils (Bld) [#/Vol] 0.1 10 3/uL Normal 0.0-0.7 [facility] Comment on above: Performed By: #### P T #### [facility] - [address] [address] Eosinophils/100 WBC (Bld) 1.3 % Normal 0.0-5.0 [facility] Comment on above: Performed By: #### P T #### [facility] - [address] [address] Erythrocyte distribution width (RBC) [Ratio] 14.4 % High 11.5-14.0 [facility] Comment on above: Performed By: #### P T #### [facility] - [address] [address] Hematocrit (Bld) [Volume fraction] 39.2 % Normal 38.7-49.8 [facility] Comment on above: Performed By: #### P T #### [address] [address] Hemoglobin (Bld) [Mass/Vol] 13.2 g/dL Normal 12.9-16.6 [facility] Comment on above: Performed By: #### P T #### [address] [address] Lymphocytes (Bld) [#/Vol] 0.7 10 3/uL Low 1.0-3.5 [facility] Comment on above: Performed By: #### P T #### [facility] - [address] [address] Lymphocytes/100 WBC (Bld) 12.8 % Low 24.0-44.0 [facility] Comment on above: Performed By: #### P T #### [facility] - [address] [address] MCH (RBC) [Entitic mass] 28.9 pg Normal 27.0-31.0 [facility] Comment on above: Performed By: #### P T #### [facility] - [address] [address] MCHC (RBC) [Mass/Vol] 33.8 g/dL Normal 32.0-36.0 [facility] Comment on above: Performed By: #### P T #### [facility] - [address] [address] MCV (RBC) [Entitic vol] 85.5 fL Normal 78.0-100.0 [facility] Comment on above: Performed By: #### P T #### [facility] - [address] [address] Monocytes (Bld) [#/Vol] 0.4 10 3/uL Normal 0.2-0.8 [facility] Comment on above: Performed By: #### P T #### [facility] - [address] [address] Monocytes/100 WBC (Bld) 7.5 % Normal 1.7-9.3 [facility] Comment on above: Performed By: #### P T #### [facility] - [address] [address] Neutrophils (Bld) [#/Vol] 4.5 10 3/uL Normal 1.5-6.7 [facility] Comment on above: Performed By: #### P T #### [facility] - [address] [address] Neutrophils/100 WBC (Bld) 78.1 % High 36.0-66.0 [facility] Comment on above: Performed By: #### P T #### Main Lab - [address] [address] Platelet mean volume (Bld) [Entitic vol] 7.9 fL Normal 6.0-9.5 [facility] Comment on above: Performed By: #### P T #### [facility] - [address] [address] Platelets (Bld) [#/Vol] 180 10 3/uL Normal 150-450 [facility] Comment on above: Performed By: #### P T #### [facility] - [address] [address] RBC (Bld) [#/Vol] 4.58 x10 6/uL Normal 4.38-5.71 [facility] Comment on above: Performed By: #### P T #### [address] [address] WBC (Bld) [#/Vol] 5.8 10 3/uL Normal 4.0-10.5 [facility] Comment on above: Performed By: #### P T #### [facility] - [address] [address] COMPREHENSIVE METABOLIC PANE Sukhi 06-05-2019 Albumin [Mass/Vol] 3.1 g/dL Low 3.9-5.0 [facility] Comment on above: Performed By: #### P T #### [address] [address] Albumin/Globulin [Mass ratio] 1.2 {ratio} Normal 1.1-1.8 [facility] Comment on above: Performed By: #### P T #### [facility] - [address] [address] ALP [Catalytic activity/Vol] 84 U/L Normal 43-122 [facility] Comment on above: Performed By: #### P T #### [facility] - [address] [address] ALT/SGPT 48 U/L Normal 7-56 [facility] Comment on above: Performed By: #### P T #### [facility] - [address] [address] Anion gap [Moles/Vol] 8 mmol/L Low 9-18 [facility] Comment on above: Performed By: #### P T #### [facility] - [facility] [address] [place] [address] AST/SGOT 26 U/L Normal 14-50 [facility] Comment on above: Performed By: #### P T #### [facility] - [address] [address] Bilirubin [Mass/Vol] 0.5 mg/dL Normal 0.2-1.3 [facility] Comment on above: Performed By: #### P T #### [facility] - [address] [address] Calcium [Mass/Vol] 8.5 mg/dL Normal 8.4-10.2 [facility] Comment on above: Performed By: #### P T #### [facility] - [address] [address] Chloride [Moles/Vol] 106 mmol/L Normal 98-107 [facility] Comment on above: Performed By: #### P T #### [facility] - [address] [address] CO2 [Moles/Vol] 27 mmol/L Normal 22-31 [facility] Comment on above: Performed By: #### P T #### [facility] - [address] [address] Creatinine [Mass/Vol] 1.30 mg/dL Normal 0.80-1.30 [facility] Comment on above: Performed By: #### P T #### [facility] - [address] [address] ESTIMATED CREAT CLEARANCE 52.26 [facility] Comment on above: Result Comment: COCK CROFT-GAULT FORMULA 1972 Performed By: #### P T #### Main Lab - [address] [address] ESTIMATED GLOMERULAR FILT RATE 55.000 mL/min [facility] Comment on above: Performed By: #### P T #### [facility] - [address] [address] Globulin (S) [Mass/Vol] 2.6 g/dL Normal [facility] Comment on above: Performed By: #### P T #### [facility] - [address] [address] Glucose [Mass/Vol] 108 mg/dL High 70-99 [facility] Comment on above: Result Comment: The glucose range is based on recommendations from the [place] [employer] for fasting blood glucose range. Performed By: #### P T #### [facility] - [address] [address] Potassium [Moles/Vol] 3.7 mmol/L Normal 3.6-5.0 [facility] Comment on above: Performed By: #### P T #### [facility] - [address] [address] Protein [Mass/Vol] 5.7 g/dL Low 6.3-8.2 [facility] Comment on above: Performed By: #### P T #### [facility] - [address] [address] Sodium [Moles/Vol] 137 mmol/L Normal 137-145 [facility] Comment on above: Performed By: #### P T #### [facility] - [address] [address] Urea nitrogen [Mass/Vol] 15 mg/dL Normal 7-21 [facility] Comment on above: Performed By: #### P T #### [facility] - [address] [address] Urea nitrogen/Creatinine [Mass ratio] 11.5 Ratio Normal 5.0-42.0 [facility] Comment on above: Performed By: #### P T #### [facility] - [address] [address] Age - Reported 68 Years Normal [facility] Comment on above: Performed By: #### P T #### [facility] - [address] [address] PT WITH INRon 06-05-2019 INR Coag (PPP) [Relative time] 3.1 {INR} Normal [facility] Comment on above: Result Comment: ISAAK MMENDED RANGES FOR INR: Therapeutic range for standard therapy INR: 2.0-3.0 Therapeutic range for high dose therapy INR: 2.5-3.5 Performed By: #### P T #### [facility] - [address] [address] PT Coag (PPP) [Time] 32.2 s High 12.0-14.5 [facility] Comment on above: Performed By: #### P T #### [facility] - [address] [address] URINE CULTUREon 06-05-2019 Bacteria identified Cx Nom (U) @06/03/19 1933: URINE CULT added. RFLXG = URINE CULT. @Source changed from IRICEL INS to CC by . URINE CULTURE: NO GROWTH AT 48 HOURS Normal [facility] Comment on above: Performed By: #### P T #### [facility] - [address] [address] CBC WITH AUTO DIFFon 020 Basophils (Bld) [#/Vol] 0.0 10 3/uL Normal 0.0-0.2 [facility] Comment on above: Performed By: #### P T, CMP, CBC #### [facility] - [address] [address] Basophils/100 WBC (Bld) 0.2 % Normal 0.0-1.0 [facility] Comment on above: Performed By: #### P T, CMP, CBC #### [facility] - [address] [address] Eosinophils (Bld) [#/Vol] 0.0 10 3/uL Normal 0.0-0.7 [facility] Comment on above: Performed By: #### P T, CMP, CBC #### [facility] - [address] [address] Eosinophils/100 WBC (Bld) 0.3 % Normal 0.0-5.0 [facility] Comment on above: Performed By: #### P T, CMP, CBC #### [facility] - [address] [address] Erythrocyte distribution width (RBC) [Ratio] 14.4 % High 11.5-14.0 [facility] Comment on above: Performed By: #### P T, CMP, CBC #### [facility] - [facility] [address] [place] [address] Hematocrit (Bld) [Volume fraction] 40.5 % Normal 38.7-49.8 [facility] Comment on above: Performed By: #### P T, CMP, CBC #### [facility] - [facility] [address] [place] [address] Hemoglobin (Bld) [Mass/Vol] 13.9 g/dL Normal 12.9-16.6 [facility] Comment on above: Performed By: #### P T, CMP, CBC #### [facility] - [facility] [address] [place] [address] Lymphocytes (Bld) [#/Vol] 0.6 10 3/uL Low 1.0-3.5 [facility] Comment on above: Performed By: #### P T, CMP, CBC #### [facility] - [facility] [address] [place] [address] Lymphocytes/100 WBC (Bld) 8.3 % Low 24.0-44.0 [facility] Comment on above: Performed By: #### P T, CMP, CBC #### [facility] - [facility] [address] [place] [address] MCH (RBC) [Entitic mass] 29.2 pg Normal 27.0-31.0 [facility] Comment on above: Performed By: #### P T, CMP, CBC #### [facility] - [facility] [address] [place] [address] MCHC (RBC) [Mass/Vol] 34.2 g/dL Normal 32.0-36.0 [facility] Comment on above: Performed By: #### P T, CMP, CBC #### [facility] - [facility] [address] [place] [address] MCV (RBC) [Entitic vol] 85.2 fL Normal 78.0-100.0 [facility] Comment on above: Performed By: #### P T, CMP, CBC #### [facility] - [facility] [address] [place] [address] Monocytes (Bld) [#/Vol] 0.4 10 3/uL Normal 0.2-0.8 [facility] Comment on above: Performed By: #### P T, CMP, CBC #### [facility] - [facility] [address] [place], [place] [address] Monocytes/100 WBC (Bld) 5.4 % Normal 1.7-9.3 [facility] Comment on above: Performed By: #### P T, CMP, CBC #### [facility] - [facility] [address] [place] [address] Neutrophils (Bld) [#/Vol] 5.8 10 3/uL Normal 1.5-6.7 [facility] Comment on above: Performed By: #### P T, CMP, CBC #### [facility] - [facility] [address] [place] [address] Neutrophils/100 WBC (Bld) 85.8 % High 36.0-66.0 [facility] Comment on above: Performed By: #### P T, CMP, CBC #### [facility] - [facility] [address] Platelet mean volume (Bld) [Entitic vol] 8.1 fL Normal 6.0-9.5 [facility] Comment on above: Performed By: #### P T, CMP, CBC #### [facility] - [address] [address] Platelets (Bld) [#/Vol] 190 10 3/uL Normal 150-450 [facility] Comment on above: Performed By: #### P T, CMP, CBC #### [facility] - [facility] [address] [place] [address] RBC (Bld) [#/Vol] 4.75 x10 6/uL Normal 4.38-5.71 [facility] Comment on above: Performed By: #### P T, CMP, CBC #### [facility] - [facility] [address] [place] [address] WBC (Bld) [#/Vol] 6.7 10 3/uL Normal 4.0-10.5 [facility] Comment on above: Performed By: #### P T, CMP, CBC #### [facility] - [facility] [address] [place] [address] COMPREHENSIVE METABOLIC PANE Sukhi 06-04-2019 Albumin [Mass/Vol] 3.4 g/dL Low 3.9-5.0 [facility] Comment on above: Performed By: #### P T, CMP, CBC #### [facility] - [facility] [address] [place] [address] Albumin/Globulin [Mass ratio] 1.2 {ratio} Normal 1.1-1.8 [facility] Comment on above: Performed By: #### P T, CMP, CBC #### [facility] - [facility] [address] [place] [address] ALP [Catalytic activity/Vol] 92 U/L Normal 43-122 [facility] Comment on above: Performed By: #### P T, CMP, CBC #### [facility] - [facility] [address] [place] [address] ALT/SGPT 62 U/L High 7-56 [facility] Comment on above: Performed By: #### P T, CMP, CBC #### [facility] - [facility] [address] [place] [address] Anion gap [Moles/Vol] 8 mmol/L Low 9-18 [facility] Comment on above: Performed By: #### P T, CMP, CBC #### [facility] - [facility] [address] [place] [address] AST/SGOT 36 U/L Normal 14-50 [facility] Comment on above: Result Comment: Spec imen Slightly Hemolyzed. Performed By: #### P T, CMP, CBC #### [facility] - [facility] [address] [place] [address] Bilirubin [Mass/Vol] 0.5 mg/dL Normal 0.2-1.3 [facility] Comment on above: Performed By: #### P T, CMP, CBC #### [facility] - [facility] [place], [place] [address] Calcium [Mass/Vol] 8.9 mg/dL Normal 8.4-10.2 [facility] Comment on above: Performed By: #### P T, CMP, CBC #### [facility] - [facility] [address] [place] [address] Chloride [Moles/Vol] 109 mmol/L High 98-[address] [facility] Comment on above: Result Comment: Inco nsistent with previous results. Performed By: #### P T, CMP, CBC #### [facility] - [facility] [address], [place] [address] CO2 [Moles/Vol] 27 mmol/L Normal 22-31 [facility] Comment on above: Performed By: #### P T, CMP, CBC #### [facility] - [facility] [address], [place] [address] Creatinine [Mass/Vol] 1.28 mg/dL Normal 0.80-1.30 [facility] Comment on above: Performed By: #### P T, CMP, CBC #### [facility] - [facility] [address] [place], [place] [address] ESTIMATED CREAT CLEARANCE 53.08 Normal [facility] Comment on above: Result Comment: COCK CROFT-GAULT FORMULA 1972 Performed By: #### P T, CMP, CBC #### [facility] - [facility] [address] [place], [place] [address] ESTIMATED GLOMERULAR FILT RATE 56.000 mL/min Normal [facility] Comment on above: Performed By: #### P T, CMP, CBC #### [facility] - [facility] [address], [place] [address] Globulin (S) [Mass/Vol] 2.9 g/dL Normal [facility] Comment on above: Performed By: #### P T, CMP, CBC #### [facility] - [facility] [address] [place], [place] [address] Glucose [Mass/Vol] 165 mg/dL High 70-99 [facility] Comment on above: Result Comment: The glucose range is based on recommendations from the [place] [employer] for fasting blood glucose range. Performed By: #### P T, CMP, CBC #### [facility] - [facility] [address] [place], [place] [address] Potassium [Moles/Vol] 3.7 mmol/L Normal 3.6-5.0 [facility] Comment on above: Result Comment: Spec imen Slightly Hemolyzed. Performed By: #### P T, CMP, CBC #### [facility] - [facility] [address] [place] [address] Protein [Mass/Vol] 6.3 g/dL Normal 6.3-8.2 [facility] Comment on above: Performed By: #### P T, CMP, CBC #### [facility] - [facility] [address] [place] [address] Sodium [Moles/Vol] 140 mmol/L Normal 137-145 [facility] Comment on above: Performed By: #### P T, CMP, CBC #### [facility] - [facility] [address] [place] [address] Urea nitrogen [Mass/Vol] 17 mg/dL Normal 7-21 [facility] Comment on above: Performed By: #### P T, CMP, CBC #### [facility] - [facility] [address] [place] [address] Urea nitrogen/Creatinine [Mass ratio] 13.3 Ratio Normal 5.0-42.0 [facility] Comment on above: Performed By: #### P T, CMP, CBC #### Main Lab - [facility] [address] [place] [address] Age - Reported 68 Years Normal [facility] Comment on above: Performed By: #### P T, CMP, CBC #### Main Lab - [facility] [address] [place] [address] 49226 CREATINE KINASE MBon 020 CK.MB [Mass/Vol] 4.0 ng/mL High 0.0-3.7 [facility] Comment on above: Performed By: #### C KMB 1 #### Main Lab - [facility] [address] [place] [address] CK.MB [Mass/Vol] 3.8 ng/mL High 0.0-3.7 [facility] Comment on above: Performed By: #### C KMB 1 #### Main Lab - [facility] [place], [place] [address] CK.MB [Mass/Vol] 4.4 ng/mL High 0.0-3.7 [facility] Comment on above: Performed By: #### P T #### Main Lab - [facility] [address] [place] [address] ABDOMEN PELVIS W/Oon 05-13 CT ABDOMEN PELVIS W/O [facility] Diagnostic Imaging Services [address] [place] [address] Diagnostic Imaging Report : [id number] Signed Name: SHAD RODRIGUEZ MRUN: [id number] : 1950 Loc: 3S Age / Sex: 68 / M ADM Status: ADM Leonor ADM Date: 06/03/19 Room/Bed: [facility] Ordering Physician: Vick [place] Procedure: CT ABDOMEN PELVIS W/O Order Number(s): [id number] Ordered Date: 06/04/19 Ordered Time: 5 EXAMINATION: [...] No pelvic mass, adenopathy, or fluid collection. Peritoneum/Retroperi toneum: Midline fat containing ventral hernia with 6.5 [...] Signed Date/Time: 06/04/19225 Transcribed Date/Time: 06/04/19221 Normal [facility] DRUG SCREEN,URINEon 06-04-19 AMPHETAMINE SCREEN,URINE Negative Normal NEGATIVE [facility] Comment on above: Order Comment: @ COL L DATE was changed from 06/03/19 to 06/04/19 @ by [id number]. Old specimen was [id number]. Result Comment: Nega tive cut-off concentration <1000 ng/mL Performed By: #### U DS #### Main Lab - [facility] [place] [id number] BARBITURATE SCREEN, URINE Negative Normal NEGATIVE [facility] Comment on above: Order Comment: @ COL L DATE was changed from 06/03/19 to 06/04/19 @ by [id number]. Old specimen was [id number]. Result Comment: Nega tive cut-off concentration <200 ng/mL Performed By: #### U DS #### Main Lab - [facility] [address] [place], [place] [id number] BENZODIAZEPINES SCREEN,URINE Negative Normal NEGATIVE [facility] Comment on above: Order Comment: @ COL L DATE was changed from 06/03/19 to 06/04/19 @ by [id number]. Old specimen was [id number]. Result Comment: Nega tive cut-off concentration <200 ng/mL Performed By: #### U DS #### Main Lab - [facility] [address] [place], [place] [id number] BUPRENORPHINE SCREEN,URINE Negative Normal NEGATIVE [facility] Comment on above: Order Comment: @ COL L DATE was changed from 06/03/19 to 06/04/19 @ by [id number]. Old specimen was [id number]. Result Comment: Nega tive cut-off concentration <10 ng/mL Performed By: #### U DS #### Main Lab - [facility] [address] [place], [place] [phone] CANNABINOID SCREEN,URINE Negative Normal NEGATIVE [facility] Comment on above: Order Comment: @ COL L DATE was changed from 06/03/19 to 06/04/19 @ by [id number]. Old specimen was [id number]. Result Comment: Nega tive cut-off concentration <50 ng/mL Performed By: #### U DS #### Main Lab - [facility] [address] [place], [place] [phone] COCAINE SCREEN,URINE Negative Normal NEGATIVE [facility] Comment on above: Order Comment: @ COL L DATE was changed from 06/03/19 to 06/04/19 @ by [id number]. Old specimen was [id number]. Result Comment: Nega tive cut-off concentration <300 ng/mL Performed By: #### U DS #### Main Lab - [facility] [place] [id number] METHADONE SCREEN,URINE Negative Normal NEGATIVE [facility] Comment on above: Order Comment: @ COL L DATE was changed from 06/03/19 to 06/04/19 @ by [id number]. Old specimen was [id number]. Result Comment: Nega tive cut-off concentration <300 ng/mL Performed By: #### U DS #### Main Lab - [facility] [address] [place], [place] [phone] OPIATE SCREEN,URINE Negative Normal NEGATIVE [facility] Comment on above: Order Comment: @ COL L DATE was changed from 06/03/19 to 06/04/19 @ by [id number]. Old specimen was [id number]. Result Comment: Nega tive cut-off concentration <300 ng/mL Performed By: #### U DS #### [facility] [place] [address] OXYCODONE SCREEN,URINE Negative Normal NEGATIVE [facility] Comment on above: Order Comment: @ COL L DATE was changed from 06/03/19 to 06/04/19 @ by [id number]. Old specimen was [id number]. Result Comment: Nega tive cut-off concentration <300 ng/mL Performed By: #### U DS #### [facility] [place] [address] PHENCYCLIDINE SCREEN,URINE Negative Normal NEGATIVE [facility] Comment on above: Order Comment: @ COL L DATE was changed from 06/03/19 to 06/04/19 @ by [id number]. Old specimen was [id number]. Result Comment: Nega tive cut-off concentration <25 ng/mL Performed By: #### U DS #### Main Lab - [facility] [address] [place], [place] [address] NITRITE,URINE Negative Normal NEGATIVE [facility] Comment on above: Order Comment: @ COL L DATE was changed from 06/03/19 to 06/04/19 @ by [id number]. Old specimen was [id number]. Performed By: #### U DS #### Main Lab - [facility] [address] [place] [address] 85750 pH (U) 6.0 [pH] Normal 5.0-8.0 [facility] Comment on above: Order Comment: @ COL L DATE was changed from 06/03/19 to 06/04/19 @ by [id number]. Old specimen was [id number]. Performed By: #### U DS #### Main Lab - [facility] [address] [place] [address] 05759 SPECIFIC GRAVITY,URINE 1.027 SP.GR. Normal <1.029 [facility] Comment on above: Order Comment: @ COL L DATE was changed from 06/03/19 to 06/04/19 @ by [id number]. Old specimen was [id number]. Performed By: #### U DS #### [facility] - [facility] [address] [place] [address] 53435 ECHOCARDIOGRAM COMPLETEon ECHOCARDIOGRAM COMPLETE [facility] Diagnostic Imaging Services [address] [place] [address] Cardiovascular Imaging Report : [id number] Signed Name: SHAD RODRIGUEZ MRUN: [id number] : 1950 Loc: 3S Age / Sex: 68 / M ADM Status: ADM Leonor ADM Date: 06/03/19 Room/Bed: [facility] Ordering Physician: Vick ENCISO [facility] Procedure: ECHOCARDIOGRAM COMPLETE Order Number(s): [id number] Ordered Date: 06/04/19 Ordered Time: 0700 SEOSYNCVPROD [id number] Transthoracic Echo Report Ht (in): 67 Wt [...] 4.4 cm RV Mid 3.7 cm RV Concrete to Base 8.6 cm Ascending Aorta Diameter 3.2 cm M-MODE Aortic Root Diameter MM 3.6 cm LA Systolic Diameter MM 4.2 cm LA Ao Ratio MM 1.2 DOPPLER AV Peak Velocity 1.3 m/s AV Peak Gradient 6.6 mmHg LVOT Peak Velocity 0.8 m/s LVOT Peak Gradient 2.5 mmHg LVOT Mean Gradient 1.3 mmHg LVOT Velocity Time Integral 16.7 cm MV Deceleration [place] 1.3 m/s? MV Pressure Half Time 83.2 [...] 06/04/19 1132 Transcribed Date/Time: 06/04/19 0947 Normal [facility] History & Physicalon 020 History & Physical [address] [place] [address] History Physical Signed with Addenda:[id number] Name: SHAD RODRIGUEZ MRUN: [id number] : 1950 Loc: 3S Age / Sex: 68/ M Adm Status: ADM Leonor Adm Date:06/03/19 Room/Bed: [facility] ADDENDUM-- -------- Bilateral lower extremities have chronic venous stasis changes and trace edema, small open wound on right leg. 06/04/19 0048 CC: Vick ENCISO, Usreesha Date of Service 06/03/19 History of Present Illness Information source:: Patient Chief Complaint: I passed out This is a pleasant 68-year-old male with a history of diabetes mellitus and colon cancer was brought into the emergency room by the health and wellness sales consultant for further evaluation and management of a syncopal event. Patient was in his usual state of health until this afternoon. 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 He was taking the exit to get to the Highway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 /min [facility] 12-28-2021 13:04-0500 Mean blood pressure 104 mm[Hg] Dougie Harmon [facility] 12-28-2021 13:04-0500 Respiratory rate 16 /min Dougie Harmon [facility] 12-28-2021 13:04-0500 SaO2% (BldA) [Mass fraction] 96 % Dougie Harmon [facility] [place] [facility] 12-28-2021 13:04-0500 Systolic blood pressure 135 mm[Hg] Dougie Harmon [facility] [place] [facility] 11-16-2021 08:26-0400 Diastolic blood pressure 80 mm[Hg] Yusra Cira [facility] 11-16-2021 08:26-0400 Mean blood pressure 99 mm[Hg] Yusra Cira [facility] 11-16-2021 08:26-0400 Systolic blood pressure 136 mm[Hg] Yusra Cira [facility] 11-16-2021 08:19-0400 Blood Pressure Location Yusra Cira [facility] 11-16-2021 08:19-0400 Body temperature 97.7 [degF] Yusra Cira [facility] 11-16-2021 08:19-0400 Diastolic blood pressure 82 mm[Hg] Yusra Cira [facility] 11-16-2021 08:19-0400 Heart rate 72 /min Yusra Cira [facility] 11-16-2021 08:19-0400 Systolic blood pressure 142 mm[Hg] Yusra Cira [facility] 10-05-2021 10:35-0400 Diastolic blood pressure 93 mm[Hg] Thais HINOJOSA [facility] [place] [facility] 10-05-2021 10:35-0400 Heart rate 64 /min Plascencia SALAM [facility] [place] [facility] 10-05-2021 10:35-0400 Respiratory rate 12 /min Plascencia SALAM [facility] [place] [facility] 10-05-2021 10:35-0400 SaO2% (BldA) [Mass fraction] 96 % Plascencia SALAM [facility] [place] [facility] 10-05-2021 10:35-0400 Systolic blood pressure 138 mm[Hg] Plascencia SALAM [facility] [place] [facility] 10-05-2021 10:25-0400 Diastolic blood pressure 86 mm[Hg] Plascencia SALAM [facility] [place] [facility] 10-05-2021 10:25-0400 Heart rate 62 /min Plascencia SALAM [facility] [place] [facility] 10-05-2021 10:25-0400 Respiratory rate 16 /min Plascencia SALAM [facility] [place] [facility] 10-05-2021 10:25-0400 SaO2% (BldA) [Mass fraction] 96 % Plascencia SALAM [facility] [place] [facility] 10-05-2021 10:25-0400 Systolic blood pressure 145 mm[Hg] Plascencia SALAM [facility] [place] [facility] 10-05-2021 10:11-0400 Diastolic blood pressure 96 mm[Hg] Plascencia SALAM [facility] [place] [facility] 10-05-2021 10:11-0400 Heart rate 74 /min Plascencia SALAM [facility] [place] [facility] 10-05-2021 10:11-0400 Respiratory rate 19 /min Plascencia SALAM [facility] [place] [facility] 10-05-2021 10:11-0400 SaO2% (BldA) [Mass fraction] 96 % Plascencia SALAM [facility] [place] [facility] 10-05-2021 10:11-0400 Systolic blood pressure 126 mm[Hg] Plascencia SALAM [facility] [place] [facility] 10-05-2021 09:47-0400 Blood Pressure Location Plascencia SALAM [facility] [place] [facility] 10-05-2021 09:47-0400 Body temperature 97.34 [degF] Plascencia SALAM [facility] [place] [facility] 10-05-2021 09:40-0400 Respiratory rate 14 /min Plascencia SALAM [facility] [place] [facility] 10-05-2021 09:35-0400 Respiratory rate 15 /min Plascencia SALAM [facility] [place] [facility] 10-05-2021 09:30-0400 Respiratory rate 16 /min Plascencia SALAM [facility] [place] [facility] 10-05-2021 08:58-0400 Blood Pressure Location Plascencia SALAM [facility] [place] [facility] 10-05-2021 08:58-0400 Body temperature 97.88 [degF] Plascencia SALAM [facility] [place] [facility] 07-19-2021 08:51-0400 Blood Pressure Location Yusra Henrymetz [facility] 07-19-2021 08:51-0400 Body temperature 97.34 [degF] Yusra Cira [facility] 07-19-2021 08:51-0400 Diastolic blood pressure 85 mm[Hg] Yusra Cira [facility] 07-19-2021 08:51-0400 Heart rate 74 /min Yusra Denis [facility] 07-19-2021 08:51-0400 SaO2% (BldA) [Mass fraction] 98 % Yusra Denis [facility] 07-19-2021 08:51-0400 Systolic blood pressure 129 mm[Hg] Yusra Denis [facility] Encounters Encounter Date Encounter Type Care Provider Facility Start: 08-11-2024 End: 08-11-2024 ambulatory NORI [facility] Start: 07-22-2024 End: 07-22-2024 ambulatory Dougieanna Harmon Facility[place] Start: 07-22-2024 End: 07-22-2024 Patient encounter procedure Dougie Harmon [facility] [place] [facility] Start: 07-21-2024 End: 07-21-2024 ambulatory Dougie Harmon Facility:[facility] Start: 07-21-2024 End: 07-21-2024 Patient encounter procedure Dougie Harmon [facility] [place] [facility] Start: 07-17-[address] [facility] Start: 07-17-[address] [facility] Start: 06-23-[address] [facility] Start: 05-12-[address] [facility] Start: 05-12-2024 Encounter for preprocedural cardiovascular examination [facility] Start: 04-09-[address] [facility] Start: 03-30-[address] [facility] Start: 03-09-[address] [facility] Start: 02-20-[address] [facility] Start: 02-18-[address] [facility] Start: 01-21-[address] [facility] Start: 01-06-[address] [facility] Start: 12-26-[address] [facility] Start: 12-11-[address] [facility] Start: 11-20-[address] [facility] Start: 10-30-[address] [facility] Start: 10-29-[address] [facility] Start: 09-16-[address] [facility] Start: 09-12-2023 End: 09-12-2023 ambulatory MARQUIS ARREOLA Not Available Start: 07-25-2023 End: 07-25-2023 ambulatory Dougie Harmon Facility:[facility] Start: 07-25-2023 End: 07-25-2023 Patient encounter procedure Dougie Harmon [facility] [place] [facility] Start: 07-23-2023 ambulatory Dougie Vergara y:[facility] Start: 07-23-2023 End: 07-23-2023 Patient encounter procedure Dougie Harmon [facility] [place] [facility] Start: 07-06-2023 End: 07-06-2023 ambulatory Dougie Harmon Facility:[facility] Start: 07-06-2023 End: 07-06-2023 Patient encounter procedure Dougie Harmon [facility] [place] [facility] Start: 07-02-2023 End: 07-02-2023 ambulatory ELEAZAR WILLIS Facility:[facility] Start: 07-02-2023 End: 07-02-2023 Patient encounter procedure ELEAZAR WILLIS [facility] [place] [facility] Start: 06-27-2023 End: 06-27-2023 ambulatory Dougie Harmon Facility:[facility] Start: 06-27-2023 End: 06-27-2023 Patient encounter procedure Dougie Harmon [facility] [place] [facility] Start: 06-25-2023 End: 06-25-2023 ambulatory JESSICA ALCARAZ Facility:[facility] Start: 06-25-2023 End: 06-25-2023 Admission to same day surgery center Nanci Miller APRN.[employer] SUPERVISOR Work Phone: Colorectal Surgery Start: 06-25-2023 End: 06-25-2023 Patient encounter procedure Nanci Miller APRN.[employer] SUPERVISOR Work Phone: Colorectal Surgery Comment on above: Abdominal bloating ( Primary Dx); Alternating constipation and diarrhea; Personal history of rectal cancer; Low anterior resection syndrome Start: 05-03-2023 End: 06-11-2023 Pre-admission assessment CYNTHIA AGUILA [facility] [place] [facility] Start: 04-26-2023 Telephone encounter Nanci Miller APRN.[employer] SUPERVISOR Work Phone: Colorectal Surgery Start: 04-23-2023 End: 04-23-2023 ambulatory Jessica Alcaraz Facility:[facility] Start: 04-23-2023 End: 04-23-2023 Patient encounter procedure Jessica Alcaraz [facility] [place] [facility] Start: 04-19-2023 End: 04-19-2023 ambulatory Jessica Alcaraz Facility:[facility] Start: 04-19-2023 End: 04-19-2023 Patient encounter procedure Jessica Alcaraz [facility] [place] [facility] Start: 04-15-2023 End: 04-15-2023 ambulatory Jessica Alcaraz Facility:[facility] Start: 04-15-2023 End: 04-15-2023 Patient encounter procedure Jessica Alcaraz [facility] Start: 06-15-2022 End: 06-15-2022 Patient encounter procedure Yusra A Cira [facility] Start: 05-17-2022 End: 05-17-2022 Patient encounter procedure Yusra A Cira [facility] Start: 02-28-2022 End: 12-31-2022 Recurring Aggie Leah [facility] [place] [facility] Start: 12-28-2021 End: 12-28-2021 Patient encounter procedure Dougie Harmon [facility] [place] [facility] Start: 12-27-2021 End: 12-27-2021 Patient encounter procedure Dougie Harmon [facility] [place] [facility] Start: 12-22-[address] SHAD DYSON Facility :[facility] Start: 12-14-2021 End: 12-14-[address] SHAD DYSON Facility:[facility] Start: 11-16-2021 End: 11-16-2021 Patient encounter procedure Yusra Denis [facility] Start: 10-05-2021 End: 10-05-2021 Patient encounter procedure Thais HINOJOSA [facility] [place] [facility] Start: 07-19-2021 End: 07-19-2021 Patient encounter procedure Yusra Piyush Cira [facility] Start: 06-23-2021 End: 06-23-2021 Patient encounter procedure Dougie Harmon [facility] [place] [facility] Start: 06-14-2021 End: 06-14-2021 Patient encounter procedure Dougie Harmon [facility] [place] [facility] Start: 02-14-2021 End: 02-26-2022 Recurring Aggie Lynn [facility] [place] [facility] Start: 01-20-2018 Patient encounter procedure MARIO ALBERTO [facility] Procedures Date Procedure Procedure Detail Performing Clinician Start: 06-25-2023 ADULT [place] [facility]ECTAL [facility]OMETRY Nanci Miller APRN.CNP Work Phone: Start: 10-05-2021 Colonoscopy Thais HINOJOSA Start: 03-02-2017 Colonoscopy Yusra Denis colostomy reversal Dougie rousseau Esophagogastroduoden oscopy gastric outlet reduction Yusra Denis Pacemaker battery (physical object) Dougie Harmon Plan of Treatment Date Care Activity Detail Author Start: 12-06-2023 Creatinine measurement Serum Creatinine [facility] Start: 10-13-2023 Influenza vaccination Influenza Vaccine (Season Ended) [facility] Start: 02-11-2023 Advance Directive Discussion Advance Directive Discussion [facility] Start: 02-11-2023 Behavioral Health Screening Behavioral Health Screening [facility] Start: 02-11-2023 Depression Assessment Depression Assessment [facility] Start: 10-12-2022 Covid-19 Vaccine ( season) Covid-19 Vaccine ( season) [facility] Start: 10-12-2022 Covid-19 Vaccine ( season) Covid-19 Vaccine ( season) [facility] Start: 10-12-2022 Influenza vaccination Influenza Vaccine (#1) [facility] Start: 03-12-2022 Shingrix Vaccine (2 of 2) Shingrix Vaccine (2 of 2) [facility] Start: 08-19-2021 Creatinine measurement Serum Creatinine [facility] Start: 09-15-2020 Screening for malignant neoplasm of colon [facility] Start: 06-28-2020 Urine microalbumin profile DTaP,Tdap,Td Vaccine (1 - Tdap) [facility] Start: 12-28-2018 Hemoglobin A1c measurement HbA1C [facility] Start: 01-29-2017 Pneumococcal Vaccine: 65+ (2 of 2 - PCV) Pneumococcal Vaccine: 65+ (2 of 2 - PCV) [facility] Start: 2012 RSV Vaccine (1 - 1-dose 60+ series) RSV Vaccine (1 - 1-dose 60+ series) [facility] Start: 2002 Shingrix Vaccine (1 of 2) Shingrix Vaccine (1 of 2) [facility] Start: 1997 Screening for malignant neoplasm of colon [facility] Start: 11-05-1971 Urine microalbumin profile DTaP,Tdap,Td Vaccine (1 - Tdap) [facility] Start: 1970 Annual PCP Team Chronic Disease Visit Annual PCP Team Chronic Disease Visit [facility] Start: 1970 BP Controlled (<130/80) BP Controlled (<130/80) [facility] Start: 1970 Hepatitis B surface antibody level LDL Cholesterol [facility] Start: 1970 Hepatitis C screening Hepatitis C Screening [facility] Start: 1962 Diabetic foot examination Diabetic Foot Exam [facility] Start: 1962 Glaucoma screening Dilated Retinal Exam [facility] Start: 1962 Hepatitis B screening Urine Albumin:Creatinine Ratio [facility] ANORECTAL MANOMETRY [facility] ANORECTAL MANOMETRY Endoscopy Routine Abdominal bloating Incontinence of feces with fecal urgency 06/25/2023 [facility] Work Phone: Immunizations Immunization Date Immunization Notes Care Provider Fa cility 01-15-2022 influenza virus vaccine, unspecified formulation Yusra Denis [facility] 01-15-2022 zoster vaccine recombinant Yusra Denis [facility] 01-11-2021 influenza, unspecifi ed formulation Yusra Denis [facility] 07-22-2020 SARS-CoV-2 (COVID-19 ) mRNA BNT-162b2 vax Yusra Denis [facility] Comment on above: Result Comment: 2021: [id number] 06-30-2020 SARS-CoV-2 (COVID-19 ) mRNA BNT-162b2 vax Yusra Denis [facility] Comment on above: Result Comment: 2021: [id number] 06-27-2020 tetanus and diphther ia toxoids, adsorbed, preservative free, for adult use (2 Lf of tetanus toxoid and 2 Lf of diphtheria toxoid) Yusra Denis [facility] 11-14-2019 influenza virus vaccine, unspecified formulation Yusra Denis [facility] 10-31-2018 influenza virus vaccine, unspecified formulation Yusra Denis [facility] 10-31-2018 pneumococcal polysaccharide vaccine, 23 valent Yusra Denis [facility] 10-22-2017 influenza virus vaccine, unspecified formulation Yusra Denis [facility] 10-22-2017 pneumococcal conjuga te vaccine, 13 valent Yusramanuel Denis [facility] 12-07-2016 influenza, unspecifi ed formulation Yusramanuel Denis [facility] 01-30-2016 influenza, injectabl e, quadrivalent, preservative free Nanci Miller APRN.[employer] SUPERVISOR Work Phone: [facility] 01-30-2016 pneumococcal polysaccharide vaccine, 23 valent Nanci Miller APRN.[employer] PRODUCTION SUPERVISOR Work Phone: [facility] 01-30-2016 influenza virus vaccine, unspecified formulation Nanci Miller APRN.SKI PRODUCTION SUPERVISOR Work Phone: [facility] NEGATED: Highlighted row has not occurred!11-16-2021 influenza virus vaccine, unspecified formulation Yusra Denis [facility] Payers Date Payer Category Payer Private Health Insurance [id number] 2019 Unknown MMO MMO MEDICARE SUPPLEMENT [id number] 2019-Present [phone] [address] [place] [address] Indemnity [id number] 2017 Medicare [id number] 1959 Medicare [id number] 1959 Self-pay 1959 Unknown [id number] 1952 Unknown [id number]. 593 1952 Unknown [id number]. 593 1952 Unknown [id number] 2.16.840.1.940033.3.579.2. 727 1952 Unknown [id number] 2.16.840.1.744350.3.579.2. 727 1952 Unknown [id number] 2.16.840.1.825259.3.579.2. 727 1952 Unknown [id number] 2.16.840.1.466099.3.579.2. 727 1952 Unknown [id number] 2.16.840.1.661488.3.579.2. 727 1952 Unknown [id number] 2.16.840.1.157813.3.579.2. 727 1952 Unknown [id number] 2.16.840.1.115304.3.579.2. 727 1952 Unknown [id number] 2.16.840.1.127579.3.579.2. 727 1952 Unknown [id number] 2.16.840.1.624478.3.579.2. 1259 1952 Unknown [id number] 2.16.840.1.367363.3.579.2. 727 1952 Unknown [id number]. 727 Social History Date Type Detail Facility Tobacco Never smoker [facility] Comment on above: denies current use Start: 01-20-2020 End: 09-05-2020 Sex Assigned At Male [facility] Start: 07-19-2021 End: 07-22-2024 Tobacco smoking status Never smoked tobacco (finding) [facility] Comment on above: denies current use Tobacco smoking status Never [facility] Start: 06-27-2015 Tobacco use and exposure Smoke less tobacco non-user [facility] Start: 09-05-2020 End: 06-25-2023 Alcohol intake Current non-drinker of alcohol (finding) [facility] Start: 01-20-2020 End: 09-05-2020 History of Social function [facility] Start: 1950 Sex Assigned At Not on file [facility] Sexual Orientation [facility] Start: 07-06-2009 Sex Male (finding) [facility] Medical Equipment Procedure Code Equipment Code Equipment Origin al Text Equipment Identifier Dates Mesh Prolene Squ are Flat [id number] Surgical Knit Nonabsorbable Nonreactive - [id number] Start: 08-12-2020 Functional Status Date Assessment Result Facility 04-15-2023 Functional Status N/A [facility] 05-17-2022 Functional Status N/A [facility] 11-16-2021 Functional Status N/A [facility] 10-05-2021 Functional Status N/A [facility] Clinical Notes 08-12-2020 to 08-11-2024 Nanci Miller APRN.[facility] - 06/25/2023 11:43 AM EDTPatient InstructionsNanci Miller APRN.[facility] - 06/25/2023 11:06 AM EDTTelephone Encounter - Teresa Moore - 04/26/2023 1:09 PM EDT Note Date & Type Note Facility 08-11-2024 Note Patient is here toda y for 1 year follow up. Patient states he is seeing a gastrologist at [facility] due to stomach bloating. Patient states he gets very constipated and would like to know if its from his medication. Patient states cardiac huffman he is feeling good. Patient denies chest pain, leg swelling, Patient complains of pain in his legs which comes and goes with activity and without activity. Patient complains of OJEDA, fatigue. Review of Systems Constitutional: Positive for malaise/fatigue. Cardiovascular: Positive for dyspnea on exertion and leg swelling (bilateral leg pain). [facility] 08-11-2024 Note Cardiovascular Medic [facility] SUBJECTIVE Chief Complaint Patient presents with Congestive Heart Failure Coronary Artery Disease Hypertension Shad Rodriguez is a 73 y.o. male here for follow-up. HPI PMHx: HFrEF s/p dual chamber ICD, NSVT, CAD, HTN, hx PE/DVT, factor V leiden, HLD, DM type II, CKD 08/11/2024 Patient is here today for 1 year follow up. Patient states he is seeing a gastrologist at [facility] due to stomach bloating. Patient states he gets very constipated and would like to know if its from his medication. Patient states cardiac huffman he is feeling good. Patient denies chest pain, leg swelling, Patient complains of pain in his legs which comes and goes with activity and without activity. Patient complains of OJEDA, fatigue. He has OJEDA if he exerts himself to heavily. This is stable. He recently obtained a home in [place]. He plans to travel to this home in the winter. [place] will be noted as his permanent residence. He noted he was having diarrhea in [place]. Now he is having constipation issues. At his last visit, Dr. Olsen advised he stop amio but he has not done this yet. Denies palpitations, orthopnea, PND, syncope, bleeding issues. Last HPI per Dr. Olsen 07/30/2023 Shad Rodriguez is a 72 y.o. year old with past medical history of heart failure with reduced ejection fraction s/p ICD, hypertension, PE/DVT with factor V Leyden deficiency, hyperlipidemia, diabetes mellitus type 2, CKD who had been recently in the hospital and was also diagnosed with COVID. He was previously seen by me in November 2022 and at that time was initially evaluated in [facility] for nonsustained VT cardiac cath at that time did not reveal any significant CAD and he was taken to the EP lab. Ventricular tachycardia was induced [...] Denies chest pain, SOB, and bleeding on warfarin. He gets intermittent palpitations and lightheadedness when he's constipated. C/o fatigue after getting a full nights sleep. he is currently GI issues which is being evaluated and is currently on amiodarone. he complains of being excessively cold and and I do not have any recent thyroid profile. 01/23/2023 He has been feeling well. He is hoping to travel to [place] in a couple weeks. He tested positive [...] (CMS/HCC) Acid reflux Atherosclerotic heart disease of [place] coronary artery without angina pectoris Bloating Cardiomyopathy [...] Use Smoking status: Never Smokeless tobacco: Never Subs (more content not included)... [facility] 08-01-2024 Note Oncology Progress No te Chief Complaint HX Large Intestine Ca; no questions or concerns. Oncological History/ROS/PE/Assessment and Plan 73 year old male referred for history of [...] recovery he did not receive adjuvant chemotherapy. In 2023 he had some abdoioman complaints, CT imaging noted no evidence of cancer. He was monitored by colorectal at [facility] as well as our local Dr. Alcaraz. EGD: 10/05/21 Colonoscopy: 10/05/21 Followup at [facility] rectal team showed normal rectal manometry. He has been trying their recommended fiber. they diagnose with low anterior resection syndrome. 07/22/24 he has had increasing ascites. He admits he needs to get a paracentesis soon. He is getting his winter home ready in [place]. He also goes to [place] for a month in the winter. he continues with occasional diarrhea. He overall seems to be much better than last year although his abdomen severely distended now. no prior cirrhosis diagnosis. He has never had ascites before. PHYSICAL EXAMINATION ECOG PS: General: Alert and oriented, no acute distress. Eye: Extraocular movements are intact, normal conjunctiva. HENT: Normocephalic, normal hearing. Neck: Supple, non-tender, no jugular venous distention. Cardiovascular: Normal rate, regular rhythm, no murmur, no edema. Gastrointestinal: Soft, non-tender, non-distended, normal bowel sounds, no organomegaly. very distended, positive wave. Respiratory: Clear to auscultation bilaterally, no wheezes, [...] abdominal complaints secondary to low anterior resection syndrome as diagnosed by his colorectal surgery team at [facility]. emphasized fiber use. 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 He follows with Dr. Alcaraz and will be considered for paracentesis. Follow-up No qualifying data available ct c/a/p with contrast for abdominal distention. cbc , cmp, afp, pt, ptt, prior to f/u. f/u can be virtual. make f/u with dr alcaraz. Medications albuterol HFA 90 mcg/inh MDI, 2 [...] This Visit - Last 24 Hours T: 36.9 ???C (Oral) HR: 60 (Peripheral) RR: 16 BP: 136/83 SpO2: 96% HT: 167.0 cm HT: 167 cm WT: 92.0 kg (Dosing) WT: 92.0 kg BMI: 32.99 BSA: 2.07 Staging Information No information available Labs Common Labs Event Name Event Result (more content not included)... [facility] 02-28-2024 Note [facility] 08-08-2023 Note Progress Note - Nutr ition Pt scored a 5 on MSGA triggering need for an assessment. However upon further review of physician notes pt does not have a recurrence of colon cancer at this time. It seems the plan is for him to go to GI at [facility]. [facility] 06-27-2023 Hospital Discharge instructions Follow Up Care 06/27/2023 14:46:38 With:Dougie Harmon DO, ONC Address: [facility] [address] [place] [phone]- [phone] Fax Business (1) When: Unknown Comments:f/u in 6 months.no imaigng.cbc, cmp, cea, iron studies, b12, foalte prior to f/u. [facility] 06-25-2023 Note HNO ID: [id number] Author: NANCI MILLER APRN.[employer]I PRODUCTION SUPERVISOR Service: ? Author Type: Nurse Practitioner Type: Progress Notes Filed: 06/25/2023 11:47 Note Text: Outside referral for ARM. Scanned into [facility] 06-25-2023 Note HNO ID: [id number] Author: NANCI MILLER APRN.SKI PRODUCTION SUPERVISOR Service: ? Author Type: Nurse Practitioner Type: Progress Notes Filed: 06/25/2023 11:54 Note Text: PELVIC FLOOR COLON AND RECTAL SURGERY Reason for visit: Review anorectal manometry and EMG results History of Present Illness: Shad Rodriguez is a 72 year old MALE [...] use: No Phy (more content not included)... [facility] 06-25-2023 History of Present illness Narrative Outside referral for ARM. Scanned into [facility] documented in this encounter [facility] 06-25-2023 Instructions Nanci Miller APRN.CNP - 06/25/2023 [...] provider as planned. documented in this encounter [facility] 06-25-2023 History of Present illness Narrative PELVIC FLOOR COLON & RECTAL SURGERY Reason for visit: Review anorectal manometry and EMG results History of Present Illness: Shad Rodriguez is a 72 year old MALE [...] normal pelvic floor movement. Assessment and Plan: Shad Rodriguez is a 72 year old MALE [...] recruitment. These test results were reviewed with Shad Rodriguez and are listed above. Overall, these [...] your referring provider as planned. Nanci Miller APRN.CNP Pelvic Floor Colorectal Surgery I spent a total of 60 minutes on the date of the service which included preparing to see the patient, [id number] patient care, completing clinical documentation, obtaining and/or reviewing separately obtained history, performing a medically appropriate examination, counseling and educating the patient/family/caregiver, ordering medications, tests, or procedures, and communicating results to the patient/family/caregiver. documented in this encounter [facility] 04-26-2023 Miscellaneous Notes Called and LVM regarding referral for Manometry by Kei Franco. documented in this encounter [facility] 08-21-2022 Evaluation + Plan note Extrac lo [...] stroke: no 4. Serious co-morbid conditions (recent PR, anemia with Hct <30%, CRI with SCr [...] PT 03/06/22 * Vitamin B12 Level 06/27/22 [facility]05-17-2023 Hospital Discharge instructions Follow Up Care 06/27/2022 14:31:43 With:Dougie Harmon DO ONC Address: [facility] [address] [place] [address]. [place] [address]- [phone] Fax Business (1) When: Unknown Comments:ct a/p with contrast soon.f/u aftercbc, cmp, cea, iron studies, b12, foalte, lipase prior to f/u. 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 Follow these instructions at home: Take tvlm-abi-zlkzpwx and prescription medicines only as told by [...] 08/27/2017 Document Revised: 01/10/2018 Document Reviewed: 10/15/2017 State Patient Education 2020 [employer]. Follow Up Care 11/16/2021 08:43:43 With:Yusra Denis CNP Address: When:1 month [facility] 10-06-2022 Hospital Discharge instructions [...] 10/24/2004 Document Revised: 05/15/2018 Document Reviewed: 05/15/2018 State Patient Education [employer] Follow Up Care 10/10/2021 11:02:12 With:Yusra Denis CNP Address: When:6 months [facility] 08-25-2022 Evaluation + Plan [...] 02/06/22 * PT 03/06/22 [facility]08-25-2022 Hospital Discharge instructions Patient Education 10/05/2021 [...] Up Care 07/19/2021 09:30:23 With:Thais HINOJOSA Address: [facility] [address] [place] [address] Business (1) When: Unknown Comments:OFFICE WILL CALL DATE AND TIME OF FOLLOW-UP APPT. [facility]06-08-2022 Hospital Discharge instructions Patient Education 07/19/2021 [...] Follow these instructions at home: Medicines Take avkr-ucz-jbsfgse and prescription medicines only as told by your health care provider. If you were prescribed an antibiotic medicine, take it as told by your health care provider. Do notstop taking the antibiotic even if you start to feel better. Eating and drinking Follow any diet changes as told by your health care provider. Work with a diet and cadence specialists (dietitian) to create an eating plan that [...] 01/25/2001 Document Revised: 06/24/2019 Document Reviewed: 06/24/2019 State Patient Education 2020 [employer]. Follow Up Care 07/11/2021 11:18:24 With:Yusra Denis CNP Address: When:1 month [facility] 05-16-2022 Hospital Discharge instructions Follow Up Care 06/26/2021 10:32:10 With:Dougie Harmon Address: [facility] [address] [place] [phone]- [phone] Fax Business (1) When: Unknown Comments:cbc, cmp, cea in 6mofollow-up in 6mo [facility]03-22-2022 Evaluation + Plan noteExtracted from: Title:- [facility] H&P Author:Aggie Hollingsworth Date :05/02/21 Impression and [...] stroke: no 4. Serious co-morbid conditions (recent PR, anemia with Hct <30%, CRI with SCr > 1.5, DM): yes hx of cancer Score = 2//4 Risk (low = 0, mod = 1-2, high = 3-4) Future Appointments Appointment Date:02/27/2022 07:30:00 AM Scheduled Provider: [facility] Appoint[facility] Type:Anticoagulation Remote 15 () Appointment Date:05/17/2022 08:00:00 AM Scheduled Provider:Yusra Denis CNP Location:[facility] Appointment Type:BADH Follow Up Appointment Date:06/27/2022 01:30:00 PM Scheduled Provider:Dougie Harmon DO [facility] Appoint[facility] Type:ONC Office Visit 15 () Future Scheduled Tests Laboratory* CBC w/ Auto [...] 02/06/22 * PT 03/06/22 [facility]07-02-2021 History of Past illness Narrative* Problem [...] of this encounter (statuses as of 04/26/2023) [facility] Future Appointments Appointment Date:06/19/2021 [...] 02/06/22 * PT [facility]06[facility]22 [facility] Future App[facility]ments Appointment Date:06/26/2021 09:30:00 AM Scheduled Provider:Purnima Borden [facility] Appointment Type:ONC Office Visit 15 (FT) Future Scheduled Tests Laboratory* PT 03/07/21 * PT 04/04/21 * PT 05/02/21 * PT 05/30/21 * PT 06/27/21 * PT 07/25/21 * PT 08/22/21 * PT 09/19/21 * PT 10/17/21 * PT 11/14/21 * PT 12/12/21 * PT 01/09/22 * PT 02/06/22 * PT 03/06/22 [facility] Future Appointments Appointment Date:08/08/2021 08:30:00 AM Scheduled Provider: [facility] Appointment Type:Anticoagulation Follow Up 15 (FT) Appointment Date:08/28/2021 12:50:00 PM Scheduled Provider: Location:[facility] Appointment Type:Surgery FT Appointment Date:12/28/2021 01:00:00 PM Scheduled Provider:Dougie Hramon DO [facility] Appointment Type:ONC Office Visit 15 (FT) Future [...] 01/09/22 * PT 02/06/22 * PT 03/06/22 [facility] Evaluation + Plan note Future Appointments Appointment Date:11/24/2021 09:30:00 AM Scheduled Provider: [facility] Appointment Type:Anticoagulation Follow Up 15 (FT) Appointment Date:12/28/2021 01:00:00 PM Scheduled Provider:Dougie Harmon DO Location:.ONCOLOGY Appointment Type:ONC Office Visit 15 (FT) Appointment Date:05/17/2022 08:00:00 AM Scheduled Provider:Yusra Denis CNP Location:[facility] Appointment Type:BAD Follow Up Future [...] 01/09/22 * PT 02/06/22 * PT 03/06/22 [facility] Evaluation + Plan note Future Appointments Appointment Date:12/28/2021 01:00:00 PM Scheduled Provider:Dougie Harmon DO [facility] Appointment Type:ONC Office Visit 15 (FT) Appointment Date:01/09/2022 09:00:00 AM Scheduled Provider: [facility] Appointment Type:Anticoagulation Follow Up 15 (FT) Appointment Date:05/17/2022 08:00:00 AM Scheduled Provider:Yusra Denis CNP Location:[facility] Appointment Type:[facility] Follow Up Future Scheduled Tests Laboratory* PT 03/07/21 * PT 04/04/21 * PT 05/02/21 * PT 05/30/21 * PT 06/27/21 * PT 07/25/21 * PT 08/22/21 * PT 09/19/21 * PT 10/17/21 * PT 11/14/21 * PT 12/12/21 * PT 01/09/22 * PT 02/06/22 * PT 03/06/22 [facility] Future App[facility]ments Appointment Date:01/09/2022 09:00:00 AM Scheduled Provider: [facility] Appointment Type:Anticoagulation Follow Up 15 (FT) Appointment Date:05/17/2022 08:00:00 AM Scheduled Provider:Yusra Denis CNP Location:[facility] Appointment Type:BAD Follow Up Appointment Date:06/27/2022 01:30:00 PM Scheduled Provider:Dougie Harmon DO [facility] Appoint[facility] Type:ONC Office Visit 15 (FT) Future Scheduled Tests Laboratory* PT 03/07/21 * PT 04/04/21 * PT 05/02/21 * PT 05/30/21 * PT 06/27/21 * PT 07/25/21 * PT 08/22/21 * PT 09/19/21 * PT 10/17/21 * PT 11/14/21 * PT 12/12/21 * PT 01/09/22 * PT 02/06/22 * PT 03/06/22 [facility] Future Appointments Appointment Date:06/01/2022 09:30:00 AM Scheduled Provider: [facility] Appointment Type:Anticoagulation Follow Up 15 (FT) Appointment Date:06/15/2022 08:00:00 AM Scheduled Provider:Yusra Denis CNP Location:[facility] Appointment Type:[facility] Follow Up Appointment Date:06/27/2022 02:00:00 PM Scheduled Provider:Dougie Harmon DO [facility] Appointment Type:ONC Office Visit 15 (FT) Future [...] PT 03/06/22 * Vitamin B12 Level 05/17/22 [facility] Evaluation + Plan note Future Appointments Appointment Date:06/27/2022 08:20:00 AM Scheduled Provider:Yusra Denis CNP Location:[facility] Appointment Type:BADH Follow Up Appointment Date:06/27/2022 02:00:00 PM Scheduled Provider:Dougie Harmon DO Location:.ONCOLOGY Appointment Type:ONC Office Visit 15 (FT) Appointment Date:07/10/2022 09:30:00 AM Scheduled Provider: [facility] Appointment Type:Anticoagulation Follow Up 15 (FT) Future [...] PT 03/06/22 * Vitamin B12 Level 05/17/22 [facility] Evaluation + Plan note Future Appointments Appointment Date:06/27/2023 02:00:00 PM Scheduled Provider:Dougie Harmon DO Location:.ONCOLOGY Appointment Type:ONC Office Visit 15 (FT) Future Scheduled Tests Laboratory* PT 04/30/22 * PT 05/31/22 * PT 06/30/22 * Vitamin B12 Level 06/27/22 Radiology* CT Abdomen/Pelvis w/ + w/o Contrast 04/15/23 [facility] Evaluation + Plan note Future Appointments Appointment Date:04/23/2023 12:00:00 PM Scheduled Provider: Location:.[facility] Appointment Type:CT Abdomen/Pelvis Combo (FT) Appointment Date:06/27/2023 02:00:00 PM Scheduled Provider:Dougie Harmon DO Location:.ONCOLOGY Appointment Type:ONC Office Visit 15 (FT) Future Scheduled Tests Laboratory* PT 04/30/22 * PT 05/31/22 * PT 06/30/22 * Vitamin B12 Level 06/27/22 Radiology* CT Abdomen/Pelvis w/ + w/o Contrast 04/23/23 [facility] App[facility]ments Appointment Date:06/27/2023 02:00:00 PM Scheduled Provider:Dougie Harmon DO Location:.ONCOLOGY Appointment Type:ONC Office Visit 15 (FT) Future Scheduled Tests Laboratory* PT 04/30/22 * PT 05/31/22 * PT 06/30/22 * Vitamin B12 Level 06/27/22 [facility] App[facility]ments Appointment Date:06/27/2023 02:00:00 PM Scheduled Provider:Dougie Harmon DO [facility] Type:ONC Office Visit 15 (FT) Future Scheduled Tests Laboratory* PT 06/30/22 * Vitamin B12 Level 06/27/22 [facility]ments Appointment [...] 07/25/23 Radiology* CT Abdomen/Pelvis w/ Contrast 06/28/23 [facility] Future App[facility]ments Appointment Date:07/06/2023 10:00:00 AM Scheduled Provider: Location:.[facility] Appointment Type:CT Abdomen/Pelvis [...] 07/25/23 Radiology* CT Abdomen/Pelvis w/ Contrast 07/06/23 [facility]ments Appointment [...] Transferrin 07/25/23 * Vitamin B12 Level 07/25/23 [facility] Future App[facility]ments Appointment Date:07/25/2023 11:30:00 AM Scheduled Provider:Dougie Harmon DO Location:.ONCOLOGY Appointment Type:ONC Office Visit 30 (FT) [facility] Future Scheduled Tests Laboratory* CBC w/ Auto Diff 06/02/24 * CEA 06/02/24 * Comprehensive Metabolic Panel 06/02/24 * Ferritin 06/02/24 * Folate Level 06/02/24 * Iron Level 06/02/24 * Iron Percent Saturation 06/02/24 * Transferrin 06/02/24 * Vitamin B12 Level 06/02/24 [facility]ments Appointment Date:07/22/2024 03:20:00 PM Scheduled Provider:Dougie Harmon DO Location:.ONCOLOGY Appointment Type:ONC Office Visit 20 (FT) [facility] Evaluation + Plan note Future Appointments Appointment Date:08/12/2024 02:20:00 PM Scheduled Provider:Dougie Harmon DO Location:FT.ONCOLOGY Appointment Type:ONC Video Visit 15 (FT) Future Scheduled Tests Laboratory* PT & PTT 07/23/24 * Alpha Fetoprotein Tumor Marker 07/23/24 * CBC w/ Auto Diff 07/23/24 * Comprehensive Metabolic Panel 07/23/24 Radiology* CT Abdomen/Pelvis w/ Contrast 07/23/24 * CT Chest w/ Contrast 07/23/24 [facility] Evaluation note* Diagnosis Abdominal bloating- Primary Flatulence, eructation, and gas pain Incontinence of feces with fecal urgency documented in this encounter [facility] note* Diagnosis Abdominal bloating- Primary Flatulence, eructation, and gas pain Alternating constipation and diarrhea Other symptoms involving digestive system Personal history of rectal cancer Personal history of malignant neoplasm of rectum, rectosigmoid junction, and anus Low anterior resection syndrome documented in this encounter [facility] course Narrative No data available for this section [facility] No data available for this section [facility] No data available for this section [facility] Outpatient Procedure (Routine) - Pending Review Specialty Diagnoses / Procedures Referred By Mark rodríguez Referred To Contact [facility] Diagnoses Abdominal bloating Incontinence of feces with fecal urgency Procedures [facility] ANORECTAL MANOMETRY ANORECTAL MANOMETRY Nanci Miller APRN.CNP [address] [place] [address] [facility] [place] [facility] [place] [address] Referral ID Status Reason Start Date Expiration Date Visits Requested Visits Authorized [id number] Pending Review Auto-Generat ed Referral 06/25/2023 06/24/2024 1 1 [facility] Summary Purpose Family History No Family History [...] FoundDocuments on File Type Date Recorded Patient Corporate Ethics Officer Expl anation Advance Directive(s) 06/27/2018 11:11 AM Documents on File Type Date Recorded Patient Corporate Ethics Officer Expl anation Advance Directive(s) 06/27/2018 11:11 AM Hospital Course Note [facility] [place] [address] Discharge Summary Signed:[id number] Name: SHAD RODRIGUEZ MRUN: [id number] : 1950 Loc: 3S Age / Sex: 68/ M Adm Status: ADM Leonor Adm Date:06/03/19 Room/Bed: [facility] Date of Service - Date of Service Date: 06/05/19 - Time Spent on Discharge Minutes spent on discharge:: 45 - Hospital Summary Hospital Summary:: This is a pleasant 68-year-old male with a history of diabetes mellitus and colon cancer was brought into the emergency room by the health and wellness sales consultant for further evaluation and management of a syncopal event. Patient was in his usual state of health until this afternoon. 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 He was taking the exit to get to the Highway around 4:30 PM after exchanging the trailer with his colleague. He felt like his truck is spinning around. The next thing he knew was health and wellness sales consultant were knocking on the door. He was [...] section and content) DATE CREATED AUTHOR 01/23/2018 [facility] DATE CREATED AUTHOR AUTHOR'S ORGANIZ ATION 04/12/2020 [facility] DATE CREATED AUTHOR AUTHOR'S ORGANIZ ATION 12/23/2021 [facility] DATE CREATED AUTHOR AUTHOR'S ORGANIZ ATION 06/27/2023 [facility] DATE CREATED AUTHOR AUTHOR'S ORGANIZ ATION 07/05/2023 [place] [facility] DATE CREATED AUTHOR AUTHOR'S ORGANIZ ATION 07/24/2023 [facility] DATE CREATED AUTHOR AUTHOR'S ORGANIZ ATION 08/10/2023 [place] [facility] DATE CREATED AUTHOR AUTHOR'S ORGANIZ ATION 09/15/2023 [facility] DATE CREATED AUTHOR AUTHOR'S ORGANIZ ATION 07/23/2024 [place] [facility] DATE CREATED AUTHOR AUTHOR'S ORGANIZ ATION 08/01/2024 [place] [facility] DATE CREATED AUTHOR AUTHOR'S ORGANIZ ATION 08/03/2024 [facility] DATE CREATED AUTHOR AUTHOR'S ORGANIZ ATION 08/12/2024 [facility] Care Team (unrecognized sect ion and content) Power Plant Operator Relationship Specialty Start Date End Date Cynthia Aguila, SKI PRODUCTION SUPERVISOR [address] [place] [address] PCP - General 08/05/18 Shad Dyson MD [address] [place] [address] Referring Family Medicine 05/04/20 Power Plant Operator Relationship Specialty Start Date End Date Cynthia Aguila CNP [address] [place] [address] PCP - General 08/05/18 Shad Dyson MD [address] [place] [address] Referring Family Medicine 05/04/20 Power Plant Operator Relationship Specialty Start Date End Date Cynthia Aguila CNP [address] [place] [address] PCP - General 08/05/18 Shad Dyson MD [address] [place] [address] Referring Family Medicine 05/04/20 Source Comments (unrecognize d section and content) In the event this informatio n is protected by the Federal Confidentiality of Alcohol and Drug Abuse Patient Records regulations: The Federal rules restrict any use of the information to criminally investigate or prosecute any alcohol or drug abuse patient.[facility] the event this information is protected by the Federal Confidentiality of Alcohol and Drug Abuse Patient Records regulations: The Federal rules restrict any use of the information to criminally investigate or prosecute any alcohol or drug abuse patient.[facility] Rehabilitation[facility] the event this information is protected by the Federal Confidentiality of Alcohol and Drug Abuse Patient Records regulations: The Federal rules restrict any use of the information to criminally investigate or prosecute any alcohol or drug abuse patient.[facility] FOR RECORDS PERTAINING TO PATIENTS WHO ARE [...] BE BASED ON THE PRIMARY CLINICAL RECORDS. [facility]. provides no warranty or guarantee of the accuracy or completeness of information in this document.
--- OUTSIDE RECORDS SUMMARY | 2024-08-13 06:45 | XMS_ITS ---
Author Organization [facility] Address [address] [place] [address] Care Team Providers Care Training Executive Name Role Phone Shad Burden MD Unavailable Cynthia Cavazos CNP Primary Care Provider [phone] Active Problems Problem Noted Date Diagnosed Date Constipation 08/11/2024 Coronary artery ectasia 08/11/2024 Acid reflux 07/30/2023 Atherosclerotic heart diseas e of [place] coronary artery without angina pectoris 07/30/2023 Bloating [...]
--- OUTSIDE RECORDS SUMMARY | 2024-08-13 06:45 | XMS_ITS | Patient Health Record ---
Author Organization Cory Martinez II, [place], [place] Address [address] [facility] [address] [place] [id number] Care Team Providers Care Card Puncher Name Role Phone Juan HAYES MD, PA, [...] Status W/U Status Risk Notes Problem Type 2 diabetes mellitus without complications (E11.9) Active confirmed Problem Essential hypertensi on (00974253) Essential (primary) hypertension (I10) Active confirmed Problem 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 without angina pectoris (894022060926164) Atherosclerotic heart disease of [place] coronary artery without angina pectoris (I25.10) Active confirmed Problem Cardiomyopathy (13762099) Cardiomyopathy, unspecified (I42.9) Active confirmed Problem Long-term current us e of anticoagulant (480504083) correction (current) use of 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 (Z79.01) Active confirmed Problem Automatic implantabl e cardiac defibrillator in situ (053810084) Presence of automatic (implantable) cardiac defibrillator (Z95.810) Active confirmed Problem Pure hypercholesterolemia (276084772) Pure hypercholesterole debby, unspecified (E78.00) Active confirmed Problem Chronic atrial fibrillation (disorder) (778386155) Chronic atrial fibrillation, unspecified (I48.20) Active confirmed Vital Signs Heart Rate 60 /min 11/14/2023 Blood pressure diastolic 78 mm Hg 11/14/2023 Height 66 in 11/14/2023 Blood pressure systolic 128 mm Hg 11/14/2023 Weight 199 lbs 11/14/2023 BMI 32.12 kg/m2 11/14/2023 Encounters Encounter Location Date Provider Diagnosis Cory Martinez II, [place], [place] [address] [place] [phone] 11/14/2023 Cory Martinez 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 without angina pectoris I25.10 ; Cardiomyopathy, unspecified I42.9 ; Chronic atrial fibrillation, unspecified I48.20 ; 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 (current) use of 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 Z79.01 ; Presence of automatic (implantable) cardiac defibrillator Z95.810 ; Essential (primary) hypertension I10 ; Pure hypercholesterolemia, unspecified E78.00 and Type 2 diabetes mellitus without complications E11.9 Assessments Encounter Date Diagnosis (ICD Code) Assessment Notes Treatment Notes Treatment Clinical Notes Section Notes 11/14/2023 Atherosclerotic heart disease of [place] coronary artery without angina pectoris (ICD-10 - I25.10) Pt doing well/ continue current meds 11/14/2023 Cardiomyopathy, unspecified (ICD-10 - I42.9) Pt doing well/ continue current meds 11/14/2023 Chronic atrial fibrillation, unspecified (ICD-10 - I48.20) Pt doing well/ continue current meds 11/14/2023 correction (current) use of 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 (ICD-10 - Z79.01) [...] Details Provider Name:Cory kat, 11/17/2024 02:00:00 PM, [address] [place] [address], [address], [place], [place], [id number], Insurance Providers Payer Name Payer Address Payer Phone Subscriber Number Group Number Insured Name Patient Relationship to Insured Coverage Start Date Coverage End Date Medicare [address] [place] [address] [id number] Shad Joseph Self - patient is the insured Medical [place] [address] [place] [address] [id number] Shad Joseph Self - patient is the insured Medical (General) History Medical History History ICD Code coronary artery disease cardiomyopathy deep vein thrombosis pulmonary embolism AICD (defibrillator) - Narrow QRS hyperlipidemia diabetes mellitus V-tach Atrial fibrillation Colon cancer Covid + last Jan Surgical History Surgery Date(Month/Year) Left Heart Cath- Ectasia with no sig CAD 11/26/2022 Dual Chamber AICD Implant (Brian Gottlieb) - [employer]- Dx: NSVT, CHF 11/28/2022 AICD Lead Revision 12/03/2022
--- OUTSIDE RECORDS SUMMARY | 2024-08-13 06:45 | XMS_ITS | Encounter Summary ---
Author Organization [facility] Address [facility] [place] [address] Care Team Providers Care Offc Spec Name Role Phone AdrielNatalie Primary Care Provider Keon Solorzano DO Primary Care Provider Cynthia Cavazos CNP Primary Care Provider + Shad Burden MD Unavailable [phone] Source Comments In the event this information is protected by the Federal Confidentiality of Alcohol and Drug AbusePatient Records regulations: The Federal rules restrict any use of the information to criminally investigate or prosecute any alcohol or drug abuse patient.[facility] Encounter Details Date Type Department Care Team (Late st Contact Info) Description 09/14/2015 Abstract Radiation Oncology [address] [place] [address] Lizzeth Ferrell (Res)(Hist) [address] [place] [address] Social History Tobacco Use Types [...] on filedocumented in this encounter Care Teams Offc Spec Relationship Specialty Start Date End Date Natalie Morel PCP - General Family Medicine 06/21/15 04/15/16 Keon Rivera DO PCP - General Family Medicine 04/16/16 06/15/18 Cynthia Cavazos CNP [address] [place], [place] [id number] [phone] PCP - General 08/05/18 Shad Burden MD [address] [place], [place] [address] [phone] Referring Family Medicine 05/04/20 documented as of this encounter
--- OUTSIDE RECORDS SUMMARY | 2024-08-13 06:45 | XMS_ITS | Clinical Summary ---
Author Organization [facility] Address [address] [place], [place] [address] Care Team Providers Care Hop Strainer Name Role Phone Cynthia Cavazos CNP Primary Care Provider [phone] Shad Burden MD Unavailable [phone] Allergies Active Allergy Reactions Criticality Noted Date [...] N ot on file 01/20/2020 Data from: [email or web address] 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 Diabetes Care. 2016.39(Suppl 1). BUN 21 9 - 24 mg/dL 08/19/2020 6:39 AM EDT [facility] Creatinine 1.13 0.73 - 1.22 mg/dL 08/19/2020 6:39 AM EDT [facility] Sodium 134(L) 136 - 144 mmol/L 08/19/2020 6:39 AM EDT [facility] Potassium 4.2 3.7 - 5.1 mmol/L 08/19/2020 6:[address] [facility] Chloride 100 97 - 105 mmol/L 08/19/2020 6:39 AM EDT [facility] CO2 25 22 - 30 mmol/L 08/19/2020 6:[address] [facility] Anion Gap 9 9 - 18 mmol/L 08/19/2020 6:[address] [facility] Calcium 8.9 8.5 - 10.2 mg/dL 08/19/2020 6:[address] [facility] eGFR- >60 08/19/2020 6:[address] [facility] eGFR-All Other Races >60 . 08/19/2020 6:[address] [facility] Comment: eGFR (Estimated GFR) Units of measure: [...] EDT Jalil Maloney MD LABORATORY Final Result [facility] [address] [facility] [address] [facility] [address] [place] [address] * CBC (08/18/2020 5:55 AM EDT) WBC 6.07 3.70 - 11.00 k/uL 08/18/2020 8:[address] [facility] RBC 4.77 4.20 - 6.00 m/uL 08/18/2020 8:[address] [facility] Hemoglobin 13.5 13.0 - 17.0 g/dL 08/18/2020 8:48 AM EDT [facility] Hematocrit 42.3 39.0 - 51.0 % 08/18/2020 8:48 AM EDT [facility] MCV 88.7 80.0 - 100.0 fL 08/18/2020 8:[address] [facility] MCH 28.3 26.0 - 34.0 pG 08/18/2020 8:[address] [facility] MCHC 31.9 30.5 - 36.0 g/dL 08/18/2020 8:[address] [facility] RDW-CV 13.5 11.5 - 15.0 % 08/18/2020 8:[address] [facility] Platelet Count 219 150 - 400 k/uL 08/18/2020 8:[address] [facility] MPV 10.2 9.0 - 12.7 fL 08/18/2020 8:[address] [facility] Absolute nRBC <0.01 <0.01 k/uL 08/18/2020 8:[address] [facility] Blood WHOLE BLOOD SPECIMEN / Unknown 08/18/2020 5:55 AM EDT 08/18/2020 5:56 AM EDT Jalil Maloney MD LABORATORY Final Result [facility] [address] [facility] [place] [address] [facility] [address] [place] [address] * (ABNORMAL) HGB A1C (06/27/2018 9:10 AM EDT) Pathologist [facility] Hemoglobin A1C 7.5(H) 4.3 - 5.6 % 06/27/2018 3:[address] [facility] Comment: [place] Diabetes Association guidelines indicate that patients with HgbA1c in the range 5.7-6.4% are at increased risk for development of diabetes, and intervention by lifestyle modification may be beneficial. HgbA1c greater or equal to 6.5% is considered diagnostic of diabetes. Estimated Average Glucose 169 mg/dL 06/27/2018 3:40 PM EDT [facility] Comment: eAG: (Estimated average glucose) is a calculated value from HgbA1c and is credit and collections representative of the average blood glucose level in the last 2-3 month period. Blood specimen (specimen) WHOLE BLOOD SPECIMEN / Unknown 06/27/2018 9:10 AM EDT 06/27/2018 9:14 AM EDT Jalil Maloney MD LABORATORY Final Result [facility] [address] [place] [address] 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 A30 Gastrointestinal Endoscopy Patient Name: Shad Joseph Procedure Date: 09/16/2015 9:24 AM Date of : 1950 Admit Type: Outpatient Age: 64 Gender: Male Note Status: Finalized Attending MD: Pedro Pablo Lawton MD Procedure: Flexible Sigmoidoscopy Indications: Personal history [...] Recently Relevant to Health Maintenance Insurance MEDICARE [facility] MEDICARE SUPPLEMENT Advance Directives Documents on File Type Date Recorded Patient Cartridge Filler Expl anation Advance Directive(s) 06/27/2018 11:11 AM Care Teams Hop Strainer Relationship Specialty Start Date End Date Cynthia Cavazos CNP [address] [place], [place] [id number] PCP - General 08/05/18 Shad Burden MD [address] [place], [place] [phone] Referring Family Medicine 05/04/20
[2024-08-13 07:53] LABS: Free T3 2.26 pg/mL (2.18-3.98)
== END 2024-08-13 06:44 | disposition home or self-care (01) ==
LOC: LAB 06:43
PROVIDERS: PCP Nurse Practitioner Family; Visit Provider Nurse Practitioner Family
DX: I11.9 Hypertensive heart disease without heart failure (principal); Z12.5 Encounter for screening for malignant neoplasm of prostate; E78.5 Hyperlipidemia, unspecified; R53.83 Other fatigue; R73.9 Hyperglycemia, unspecified
CPT/HCPCS: 36415; 83036; 84436; 84481; G0103

== ENCOUNTER 2024-08-13 06:44 | Outpatient (OUT) | payer MEDICARE, OTHER, SELFPAY ==
--- OUTSIDE RECORDS SUMMARY | 2024-08-11 11:28 | XMS_ITS | Continuity of Care Document ---
Author Organization [facility]. If a dditional information is needed, contact Health Information Management at [phone] Address [address] [place] [address] Phone Care Team Providers Care Bakery Technician Name Role Phone Unavailable Unavailable Unavailable
--- OUTSIDE RECORDS SUMMARY | 2024-08-13 06:47 | XMS_ITS | CCD ---
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 Name Role Phone RANIMARIO ALBERTO MARS Unavailable Unavailab Shad May Primary Care Physician Josephine Zambrano Unavailable Unavailable Aggie [place] Unavailable Unavailable DR SHAD DYSON Primary Care Unavailable CYNTHIA AGUILA Attending Unavailable CYNTHIA AGUILA Admitting Unavailable DR SHAD DYSON Primary Care Unavailable CYNTHIA AGUILA Attending Unavailable CYNTHIA AGUILA Consulting Unavailable MINGO, CYNTHIA Admitting Unavailable Cynthia Aguila CNP Primary Care Provider [phone] Shad Dyson MD Unavailable Cynthia Aguila CNP Primary Care Provider [phone] NANCI MILLER Attending Unavailable MINGO, CYNTHIA S [...] (1 source) Penicillins; Translations: [penicillins] Drug Allergy [facility] Repository (20 sources) Penicillins; Translations: [PENICILLINS] Propensity to adverse reactions to drug (disorder) 6 Unknown [facility] Repository (20 sources) RAGWEED; Translations: [RAGWEED] Propensity to adverse reactions to drug (disorder) 6 Dyspnea (finding), Shortness of Breath [facility] Repository (1 source) house dust allergenic extract; Translations: [HOUSE DUST] Drug Allergy 3 [facility] Repository Medications Current Medications Medication Drug Class(es) Dates Sig (Normalized) Sig (Original) acetaminophen 500 mg oral tablet (3 sources) Start: 08-19-2020 take 2 tablets by mouth every six hours as needed acetaminophen (TYLENOL) 500 mg tablet Take 2 tablets by mouth every 6 hours as needed for pain. 0 08/19/2020 Active Comment on above: Take 2 tablets by [facility] every 6 hours as needed for [...] QID for wheezing, 6.7 gram, Refill(s) 0, [facility]/pharmacy #[id number] Start Date: 05/13/18 Status: Ordered Quantity: 6.7 Unit: g Repeat number: 1 Indications: Acute bronchitis, unspecified; Start: 05-13-2018 take 2 puff(s) by in halation four times daily for wheezing albuterol HFA 90 mcg/inh MDI 2 puff(s), Inhalation, QID for wheezing, 6.7 gram, Refill(s) 0, [facility]/pharmacy #[id number] Start Date: 05/13/18 Status: Ordered amLODIPine [...] BID, # 60 tab(s), Refills(s) 5, Pharmacy: [facility]/pharmacy #[id number] Start Date: 08/29/18 Status: Ordered Quantity: [...] constipation, # 12 supp, Refills(s) 0, Pharmacy: [facility]/pharmacy #[id number], 167, cm, 04/15/23 12:19:00 EST, Height/Length [...] 1 EA, Refill(s) 0, Prior to colonoscopy., [facility]/pharmacy #[id number], 167.6, cm, 07/19/21 8:57:00 EDT, Height/Length [...] Ordered Repeat number: 1 polyethylene glycol 3350 42275 mg powder for oral solution (19 sources) [...] day, # 21 tab(s), Refills(s) 0, Pharmacy: [facility]/pharmacy #[id number] Start Date: 05/13/18 Status: Ordered Quantity: 21.0 Unit: tab(s) Repeat number: 1 Indications: Acute bronchitis, unspecified; psyllium 525 mg oral capsule (7 sources) Start: End: 024 take 5 capsules by mouth once daily Metamucil 525 mg oral capsule 2,625 mg = 5 cap(s), Oral, Daily, X 90 day(s), # 450 cap(s), Refills(s) 3, Pharmacy: [facility]/pharmacy #[id number], 167.6, cm, 06/27/22 8:28:00 EDT, Height/Length Dosing, [...] BID for constipation, 100 tab(s), Refill(s) 4, [id number], cm, 04/15/23 12:19:00 EST, Height/Length Dosing, 89, kg, 04/15/23 12:19:00 EST, Weight Dosing Start Date: 04/15/23 Status: Ordered Quantity: 100.0 Unit: tab(s) Repeat number: 5 Start: 04-15-2023 Senna 8.6 mg o ral tablet 17.2 mg, 2 tab(s), Oral, BID for constipation, 100 tab(s), Refill(s) 4, [facility]/pharmacy #[id number], 167, cm, 04/15/23 12:19:00 EST, Height/Length [...] tab(s), Refills(s) 0, Pharmacy: [facility]/pharmacy #[id number], 167.6, cm, 01/02/19 13:46:00 EST, Height/Length [...] coronary artery; Translations: [Atherosclerotic heart disease of [place] coronary artery without angina pectoris] Onset: 9 [...] 5 Episodic Other aftercare (2 sources) 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 *[facility] will call you to schedule a heart ultrasound. *Follow-up with Dr. Olsen in 3 months. Normal [facility] Office Visiton 08-11-2024 Follow-up visit [id number] Shad Rodriguez 1950 M Date Provider Department Center 08/11/2024 NORI DIAZ [facility] Family History Problem Relation Age of Onset Coronary artery disease Mother Hypertension Father Bone cancer Father Family Status - Relation Status Age at Mother Father Level of Service:58801 OR OFFICE/OUTPATIENT ESTABLISHED MOD MDM 30 MIN Reason for Visit and Comments: Congestive Heart Failure [127] Coronary Artery Disease [187] Hypertension [028886] Normal [facility] CBC w/ Auto Diffon 5 Basophil Absolute 0.0 E9/L Normal 0.0-0.2 [facility] Comment on above: Performed By: #### 2 110692 #### [facility] [address] [place] [address] Basophils/100 WBC (Bld) 0.2 % Normal 0.0-2.0 [facility] Comment on above: Performed By: #### 2 [id number] #### [facility] [address] [place] [address] Eos Absolute 0.1 E9/L Normal 0.0-0.5 [facility] Comment on above: Performed By: #### 2 130047 #### [facility] [address] [place] [address] Eosinophils/100 WBC (Bld) 1.1 % Normal 0.0-8.0 [facility] Comment on above: Performed By: #### 2 [id number] #### [facility] [address] [place] [address] Erythrocyte distribution width (RBC) [Ratio] 15.4 % High 10.9-14.2 [facility] Comment on above: Performed By: #### 2 [id number] #### [facility] [address] [place] [address] Hematocrit (Bld) [Volume fraction] 51.9 % High 37.7-49.0 [facility] Comment on above: Performed By: #### 2 819709 #### [facility] [address] [place] [address] Hemoglobin (Bld) [Mass/Vol] 17.4 g/dL Normal 13.5-17.5 [facility] Comment on above: Performed By: #### 2 832208 #### [facility] [address] [place] [address] Lymph Absolute 0.8 E9/L Low 1.0-4.0 [facility] Comment on above: Performed By: #### 2 774338 #### [facility] [address] [place] [address] Lymphocytes/100 WBC (Bld) 11.4 % Low 14.0-50.0 [facility] Comment on above: Performed By: #### 2 693938 #### [facility] [address] [place] [address] MCH (RBC) [Entitic mass] 30.4 pg Normal 27.0-34.0 [facility] Comment on above: Performed By: #### 2 190933 #### [facility] [address] [place] [address] MCHC (RBC) [Mass/Vol] 33.5 g/dL Normal 31.4-36.0 [facility] Comment on above: Performed By: #### 2 897025 #### [facility] [address] [place] [address] MCV (RBC) [Entitic vol] 90.8 fL Normal 80.0-100.0 [facility] Comment on above: Performed By: #### 2 465914 #### [facility] [address] [place] [address] Greenlee Absolute 0.6 E9/L Normal 0.2-1.0 [facility] Comment on above: Performed By: #### 2 138460 #### [facility] [address] [place] [address] Monocytes/100 WBC (Bld) 8.6 % Normal 4.0-14.0 [facility] Comment on above: Performed By: #### 2 973312 #### [facility] [address] [place] [address] Neutro Absolute 5.6 E9/L Normal 2.0-7.5 [facility] Comment on above: Performed By: #### 2 075307 #### [facility] [address] [place] [address] Neutro Auto 78.7 % High 36.0-75.0 [facility] Comment on above: Performed By: #### 2 996082 #### [facility] [address] [place] [address] Platelet 194.0 E9/L Normal 150.0-500.0 [facility] Comment on above: Performed By: #### 2 189958 #### [facility] [address] [place] [address] Platelet mean volume (Bld) [Entitic vol] 9.1 fL Normal 6.4-10.8 [facility] Comment on above: Performed By: #### 2 558925 #### [facility] [address] [place] [address] RBC 5.7 E12/L Normal 4.3-5.9 [facility] Comment on above: Performed By: #### 2 157796 #### [facility] [address] [place] [address] WBC 7.1 E9/L Normal 4.0-11.0 [facility] Comment on above: Performed By: #### 2 785340 #### [facility] [address] [place] [address] CEAon 07-21-2024 CEA 2.5 ng/mL Invalid Interpretation Code [facility] Comment on above: Result Comment: 'NON -SMOKER < 2.5' 'SMOKER < 5.0' The concentration of CEA in a given specimen determined by different manufacturers can vary due to differences in assay methods and reagent specificity. Values obtained with different assay methods cannot be used interchangeably. The methodology used to perform this test was chemiluminescence using [employer] Access CEA reagent. Performed By: #### 2 550374 #### [facility] [address] [place] [address] CHEMISTRYOrdered By: SYSTEM SYSTEM on 07-21-2024 Albumin [...] to perform this test was chemiluminescence using [employer] Access CEA reagent. Chloride [Moles/Vol] 105 mmol/L [...] 07-21-2024 Albumin [Mass/Vol] 4.3 g/dL Normal 3.3-5.0 [facility] Comment on above: Performed By: #### 2 767818 #### [facility] [address] [place] [address] Albumin/Globulin [Mass ratio] 1.8 {ratio} Normal 1.1-2.2 [facility] Comment on above: Performed By: #### 2 126849 #### [facility] [address] [place] [address] Alk Phos 100 Int._Unit/L High 21-98 [facility] Comment on above: Performed By: #### 2 782674 #### [facility] [address] [place] [address] ALT 27 Int._Unit/L Normal 6-46 [facility] Comment on above: Performed By: #### 2 945744 #### [facility] [address] [place] [address] Anion gap [Moles/Vol] 13 mmol/L Normal 6-16 [facility] Comment on above: Performed By: #### 2 687030 #### [facility] [address] [place] [address] AST 22 Int._Unit/L Normal 5-43 [facility] Comment on above: Performed By: #### 2 826173 #### [facility] [address] [place] [address] Bili Total 0.7 mg/dL Normal 0.0-1.1 [facility] Comment on above: Performed By: #### 2 776731 #### [facility] [address] [place] [address] BUN/Creat Ratio 14 No Units Normal 10-20 [facility] Comment on above: Performed By: #### 2 817828 #### [facility] [address] [place] [address] Calcium [Mass/Vol] 9.2 mg/dL Normal 8.9-11.1 [facility] Comment on above: Performed By: #### 2 216410 #### [facility] [address] [place] [address] Chloride [Moles/Vol] 105 mmol/L Normal 101-111 [facility] Comment on above: Performed By: #### 2 754922 #### [facility] [address] [place] [address] CO2 [Moles/Vol] 28 mmol/L Normal 21-31 [facility] Comment on above: Performed By: #### 2 060936 #### [facility] [address] [place] [address] Creatinine [Mass/Vol] 1.4 mg/dL High 0.5-1.3 [facility] Comment on above: Performed By: #### 2 866356 #### [facility] [address] [place] [address] Globulin (S) [Mass/Vol] 2.4 g/dL Normal 1.4-4.0 [facility] Comment on above: Performed By: #### 2 273874 #### [facility] [address] [place] [address] Glucose [Mass/Vol] 185 mg/dL Normal 55-199 [facility] Comment on above: Performed By: #### 2 121185 #### [facility] [address] [place] [address] Potassium [Moles/Vol] 4.2 mmol/L Normal 3.5-5.3 [facility] Comment on above: Performed By: #### 2 649164 #### [facility] [address] [place] [address] Protein [Mass/Vol] 6.7 g/dL Normal 6.0-7.8 [facility] Comment on above: Performed By: #### 2 685325 #### [facility] [address] [place] [address] Sodium [Moles/Vol] 142 mmol/L Normal 135-145 [facility] Comment on above: Performed By: #### 2 125759 #### [facility] [address] [place] [address] Urea nitrogen [Mass/Vol] 20 mg/dL Normal 5-21 [facility] Comment on above: Performed By: #### 2 300285 #### [facility] [address] [place] [address] Ferritinon 07-21-2024 Ferritin Lvl 50 ng/mL Normal 24-336 [facility] Comment on above: Performed By: #### 2 870973 #### [facility] [address] [place] [address] Folateon 07-21-2024 Folate Lvl >22.3 Normal >=6.7 [facility] Comment on above: Performed By: #### 2 338272 #### [facility] [address] [place] [address] HEMATOLOGYOrdered By: Ced Chase on 07-21-2024 Basophils/100 [...] Ironon 07-21-2024 Iron 53 microgram/dL Normal 35-153 [facility] Comment on above: Performed By: #### 2 929026 #### [facility] [address] [place] [address] Iron Saturationon 07-21-2024 Iron Sat 17 % Low 20-50 [facility] Comment on above: Performed By: #### 2 838220 #### [facility] [address] [place] [address] TIBC 307 microgram/dL Normal 250-400 [facility] Comment on above: Performed By: #### 2 775798 #### [facility] [address] [place] [address] Transferrinon 07-21-2024 Transferrin [Mass/Vol] 219 mg/dL Normal 200-370 [facility] Comment on above: Performed By: #### 2 141498 #### [facility] [address] [place] [address] Vit B12on 07-21-2024 Cobalamin (Vitamin B12) [Mass/Vol] 353 pg/mL Normal 50-1500 [facility] Comment on above: Performed By: #### 2 477561 #### [facility] [address] [place] [address] eGFRon 07-21-2024 eGFR 53 mL/min/1.73 m2 Low >=59 [facility] Comment on above: Performed By: #### 1 [id number] #### [facility] [address] [place] [address] Oncology Progress Noteon Oncology Progress Note Chief [...] and referred them to colorectal team at [facility] bloating constipation then turns to diarrhea, [...] a rectal manometry and was done at [facility]. Previous work up: Labs: 03/28/23 EGD: 10/05/21 Colonoscopy: 10/05/21 Imaging: US 03/28/23 07/25/23 he complains of a cyclical diarrhea. He notes every 5 or 6 days he gets a course of nausea without vomiting. 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 He gets diarrhea maybe 8 [...] changes of the lumbar spine. Followup at [facility] rectal team showed normal rectal manometry. [...] 2017 dx (more content not included)... Normal [facility] Ambulatory Visit Summaryon 0 07-25-2023 [...] studies, b12, foalte prior to f/u. Where: [facility] [address] [place] [address] [place] [address] [phone] Fax Business (1) Medications What How Much [...] for choosing us for your care. Normal [facility] Consent for Treatmenton 07-12 Consent for Treatment [id number] #1.00TIFF Normal [facility] CBC w/ Auto Diffon 4 Basophils/100 WBC (Bld) 0.2 % Normal 0.0-2.0 [facility] Comment on above: Performed By: #### 2 [id number] #### [facility] [address] [place] [address] Basophils/Leukocytes Auto (Bld) [Pure # fraction] 0.0 E9/L Normal 0.0-0.2 [facility] Comment on above: Performed By: #### 2 140185 #### [facility] [address] [place] [address] Eosinophils (Bld) [#/Vol] 0.3 E9/L Normal 0.0-0.5 [facility] Comment on above: Performed By: #### 2 277918 #### [facility] [address] [place] [address] Eosinophils/100 WBC (Bld) 4.1 % Normal 0.0-8.0 [facility] Comment on above: Performed By: #### 2 001279 #### [facility] [address] [place] [address] Erythrocyte distribution width (RBC) [Ratio] 15.8 % High 10.9-14.2 [facility] Comment on above: Performed By: #### 2 025473 #### [facility] [address] [place] [address] Hematocrit (Bld) [Volume fraction] 46.2 % Normal 37.7-49.0 [facility] Comment on above: Performed By: #### 2 445809 #### [facility] [address] [place] [address] Hemoglobin (Bld) [Mass/Vol] 15.8 g/dL Normal 13.5-17.5 [facility] Comment on above: Performed By: #### 2 025328 #### [facility] Laboratory [address] [place] [address] Lymphocytes (Bld) [#/Vol] 0.9 E9/L Low 1.0-4.0 [facility] Comment on above: Performed By: #### 2 151191 #### [facility] [address] [place] [address] Lymphocytes/100 WBC (Bld) 12.6 % Low 14.0-50.0 [facility] Comment on above: Performed By: #### 2 585253 #### [facility] [address] [place] [address] MCH (RBC) [Entitic mass] 31.1 pg Normal 27.0-34.0 [facility] Comment on above: Performed By: #### 2 581842 #### [facility] [address] [place] [address] MCHC (RBC) [Mass/Vol] 34.1 g/dL Normal 31.4-36.0 [facility] Comment on above: Performed By: #### 2 092870 #### [facility] [address] [place] [address] MCV (RBC) [Entitic vol] 91.1 fL Normal 80.0-100.0 [facility] Comment on above: Performed By: #### 2 568301 #### [facility] [address] [place] [address] Monocytes (Bld) [#/Vol] 0.5 E9/L Normal 0.2-1.0 [facility] Comment on above: Performed By: #### 2 224356 #### [facility] [address] [place] [address] Neutrophils (Bld) [#/Vol] 5.3 E9/L Normal 2.0-7.5 [facility] Comment on above: Performed By: #### 2 770869 #### [facility] [address] [place] [address] Neutrophils/100 WBC (Bld) 75.9 % High 36.0-75.0 [facility] Comment on above: Performed By: #### 2 916078 #### [facility] [address] [place] [address] Platelet 216.0 E9/L Normal 150.0-500.0 [facility] Comment on above: Performed By: #### 2 328906 #### [facility] [address] [place] [address] Platelet mean volume (Bld) [Entitic vol] 8.8 fL Normal 6.4-10.8 [facility] Comment on above: Performed By: #### 2 187633 #### [facility] [address] [place] [address] RBC (Bld) [#/Vol] 5.1 E12/L Normal 4.3-5.9 [facility] Comment on above: Performed By: #### 2 706593 #### [facility] [address] [place] [address] WBC corrected for nucl RBC Auto (Bld) [#/Vol] 7.0 E9/L Normal 4.0-11.0 [facility] Comment on above: Performed By: #### 2 209122 #### [facility] [address] [place] [address] CEAon 07-23-2023 CEA 1.4 ng/mL Invalid Interpretation Code [facility] Comment on above: Result Comment: 'NON -SMOKER < 2.5' 'SMOKER < 5.0' The concentration of CEA in a given specimen determined by different manufacturers can vary due to differences in assay methods and reagent specificity. Values obtained with different assay methods cannot be used interchangeably. The methodology used to perform this test was chemiluminescence using [employer]'s Access CEA reagent. Performed By: #### 2 125113 #### [facility] [address] [place] [address] CHEMISTRYOrdered By: SYSTEM SYSTEM on 07-23-2023 Albumin [...] perform this test was chemiluminescence using [employer]'s Access CEA reagent. Chloride [Moles/Vol] 107 mmol/L [...] 07-23-2023 Albumin [Mass/Vol] 4.1 g/dL Normal 3.3-5.0 [facility] Comment on above: Performed By: #### 2 051453 #### [facility] [address] [place] [address] Albumin/Globulin (S) [Mass conc ratio] 1.7 Normal 1.1-2.2 [facility] Comment on above: Performed By: #### 2 571075 #### [facility] [address] [place] [address] ALP [Catalytic activity/Vol] 93 Int._Unit/L Normal 21-98 [facility] Comment on above: Performed By: #### 2 054710 #### [facility] [address] [place] [address] ALT No additional P-5'-P [Catalytic activity/Vol] 30 Int._Unit/L Normal 6-46 [facility] Comment on above: Performed By: #### 2 777371 #### [facility] [address] [place] [address] Anion gap [Moles/Vol] 12 mmol/L Normal 6-16 [facility] Comment on above: Performed By: #### 2 417272 #### [facility] [address] [place] [address] AST [Catalytic activity/Vol] 25 Int._Unit/L Normal 5-43 [facility] Comment on above: Performed By: #### 2 558363 #### [facility] [address] [place] [address] Bilirubin [Mass/Vol] 0.7 mg/dL Normal 0.0-1.1 [facility] Comment on above: Performed By: #### 2 206136 #### [facility] [address] [place] [address] Calcium [Mass/Vol] 9.2 mg/dL Normal 8.9-11.1 [facility] Comment on above: Performed By: #### 2 829660 #### [facility] [address] [place] [address] Chloride [Moles/Vol] 107 mmol/L Normal 101-111 [facility] Comment on above: Performed By: #### 2 045162 #### [facility] [address] [place] [address] CO2 [Moles/Vol] 26 mmol/L Normal 21-31 [facility] [facility] Comment on above: Performed By: #### 2 [id number] #### [facility] [address] [place] [address] Creatinine [Mass/Vol] 1.3 mg/dL Normal 0.5-1.3 [facility] Comment on above: Performed By: #### 2 [id number] #### [facility] [address] [place] [address] Globulin (S) [Mass/Vol] 2.4 g/dL Normal 1.4-4.0 [facility] Comment on above: Performed By: #### 2 [id number] #### [facility] [address] [place] [address] Glucose [Mass/Vol] 170 mg/dL Normal 55-199 [facility] Comment on above: Performed By: #### 2 [id number] #### [facility] [address] [place] [address] Potassium [Moles/Vol] 4.0 mmol/L Normal 3.5-5.3 [facility] Comment on above: Performed By: #### 2 [id number] #### [facility] [address] [place] [address] Protein [Mass/Vol] 6.5 g/dL Normal 6.0-7.8 [facility] Comment on above: Performed By: #### 2 [id number] #### [facility] [address] [place] [address] Sodium [Moles/Vol] 141 mmol/L Normal 135-145 [facility] Comment on above: Performed By: #### 2 [id number] #### [facility] [address] [place] [address] Urea nitrogen [Mass/Vol] 19 mg/dL Normal 5-21 [facility] Comment on above: Performed By: #### 2 [id number] #### [facility] [address] [place] [address] Urea nitrogen/Creatinine [Mass ratio] 15 No Units Normal 10-20 [facility] Comment on above: Performed By: #### 2 [id number] #### [facility] [address] [place] [address] Consent for Treatmenton 07-12 Consent for Treatment [id number] #1.00TIFF Normal [facility] Ferritinon 07-23-2023 Ferritin [Mass/Vol] 43 ng/mL Normal 24-336 [facility] Comment on above: Performed By: #### 2 155123 #### [facility] [address] [place] [address] Folateon 07-23-2023 Folate [Mass/Vol] ng/mL Normal >=6.7 [facility] Comment on above: Performed By: #### 2 045124 #### [facility] [address] [place] [address] HEMATOLOGYOrdered By: SYSTEM SYSTEM on 07-23-2023 Basophils/100 [...] 07-23-2023 Iron [Mass/Vol] 83 microgram/dL Normal 35-153 [facility] Comment on above: Performed By: #### 2 239443 #### [facility] [address] [place] [address] Iron Saturationon 07-23-2023 Iron binding capacity [Mass/Vol] 302 microgram/dL Normal 250-400 [facility] Comment on above: Performed By: #### 2 737994 #### [facility] [address] [place] [address] Iron saturation [Mass fraction] 27 % Normal 20-50 [facility] Comment on above: Performed By: #### 2 593674 #### [facility] [address] [place] [address] Lipase Levelon 07-23-2023 Lipase [Catalytic activity/Vol] 29 U/L Normal 13-58 [facility] Comment on above: Performed By: #### 2 008613 #### [facility] [address] [place] [address] Transferrinon 07-23-2023 Transferrin [Mass/Vol] 216 mg/dL Normal 200-370 [facility] Comment on above: Performed By: #### 2 944172 #### [facility] [address] [place] [address] Vit B12on 07-23-2023 Cobalamin (Vitamin B12) [Mass/Vol] 305 pg/mL Normal 50-1500 [facility] Comment on above: Performed By: #### 2 609349 #### [facility] [address] [place] [address] CT Abdomen/Pelvis w/ Contras ton 07-11-2023 CT [...] Oral contrast amount in ml's: 900 Normal [facility] Consultation Noteon 07-09-19 Consultation Note [id number] #1.00TIFF Normal [facility] Oncology Progress Noteon Oncology Progress [...] and referred them to colorectal team at [facility] bloating constipation then turns to diarrhea, [...] a rectal manometry and was done at [facility]. Previous work up: Labs: 03/28/23 EGD: [...] When Contact Information Dougie Harmon DO, ONC [facility] [place] Haro [phone]- [phone] Fax Business (1) Additional Instructions: ct a/p [...] Labs C (more content not included)... Normal [facility] Consent for Treatmenton 06-12 Consent for Treatment [id number] #1.00TIFF [facility] CHEMISTRYOrdered By: SYSTEM SYSTEM on 07-02-2023 Creatinine [Mass/Vol] 1.3 mg/dL Normal 0.5 - 1.3 mg/dL Remisol Chem eGFR 59 mL/min/1.73 m2 Normal >=59mL/min /1 .73 m2 Remisol Chem Consent for Treatmenton 06-12 Consent for Treatment [id number] #1.00TIFF [facility] Creatinineon 07-02-2023 Creatinine [Mass/Vol] 1.3 mg/dL Normal 0.5-1.3 [facility] Comment on above: Performed By: #### 2 [id number] #### [facility] [address] [id number] Physician Orderon 07-02-2023 Physician Order [id number] 45#1.00TIFF [facility] eGFRon 07-02-2023 eGFR 59 mL/min/1.73 m2 Normal >=59 [facility] Comment on above: Order Comment: Order added by Discern Expert. Performed By: #### 1 [id number] #### [facility] [address] [id number] Consent for Treatmenton 06-11 Consent for Treatment [id number] #1.00TIFF [facility] CNOVon 06-25-2023 CNOV Office Visit ([facility]) SHAD RODRIGUEZ ([id number]) 1950 M Date Time Provider Department 06/25/23 11:30 AM NANCI MILLER [facility] During your visit today, we recorded the following information about you: Nanci Miller APRN.[facility] 06/25/2023 11:54 AM Signed PELVIC FLOOR COLON [...] (bone cance (more content not included)... Normal [facility] RAD - MRI Screening Formon 0 05-09-2023 RAD - MRI Screening Form [id number] #1.00TIFF Normal [facility] Physician Orderon 05-07-2023 Physician Order [id number] #1.00TIFF Normal [facility] Physician Orderon 05-03-2023 Physician Order [id number] #1.00TIFF Normal [facility] CNPNon 04-26-2023 [facility] SHAD RODRIGUEZ ([id number]) 1950 M Date Time Provider Department 04/26/23 NANCI MILLER [facility] During your visit today, we recorded the following information about you: Teresa Moore 04/26/2023 1:11 PM Signed Called and LVM regarding referral for Manometry by [facility]. Allergies As of Date: 04/26/2023 Noted Allergy Reaction PENICILLINS 06/22/2015 16 - Unknown RAGWEED 12/05/2015 12 - Shortness of Breath Date Reviewed: 09/05/2020 Reviewed by: Belem Koch APRN.SQL ENGINEER - Fully Assessed Reason for Visit: Appointment [...] Status:Closed by TERESA MOORE on 04/26/23 [facility]-24-2023 Reminders - From: Ivelisse ENCISO, [...] made patient aware, verbalized clear understanding. Normal [facility] CT Abdomen w/ + w/o [...] Oral contrast amount in ml's: 450 Normal [facility] Consent for Treatmenton 04-11 Consent for Treatment [id number] #1.00TIFF Normal [facility] CHEMISTRYOrdered By: SYSTEM SYSTEM on 04-19-2023 Creatinine [Mass/Vol] 1.6 mg/dL High 0.5 - 1.3 mg/dL Remisol Chem eGFR 46 mL/min/1.73 m2 Low >=59mL/min /1 .73 m2 Remisol Chem Consent for Treatmenton Consent for Treatment [id number] #1.00TIFF Normal [facility] Creatinineon 04-19-2023 Creatinine [Mass/Vol] 1.6 mg/dL High 0.5-1.3 [facility] Comment on above: Performed By: #### 1 [id number], [id number] ####[facility] [address] [place] [address] Physician Orderon 04-19-2023 Physician Order [id number] 49#1.00TIFF Normal [facility] eGFRon 04-19-2023 eGFR 46 mL/min/1.73 m2 Low >=59 [facility] Comment on above: Order Comment: Order added by Discern Expert. Performed By: #### 1 [id number], [id number] ####[facility] [address] [place] [address] Gastroenterology Office/Clin ic Noteon 04-15-2023 Gastroenterology Office/Clinic [...] cold forceps and then dilated using 56 [place] dilator History of Present Illness pt [...] Bloating (R14.0: Abdominal (more content not included)... [facility] Comment on above: Result Comment: Elec tronically Signed By: Ivelisse ENCISO, Jessica Che\.br\Date and Time Signed: 04/15/23 13:07 EST Lab Reportson 04-15-2023 Lab Reports [id number] #1.00TIFF [facility] OT - Otheron 04-15-2023 OT - Other [id number] 9#1.00TIFF [facility] RAD - Ultrasound Reporton RAD - Ultrasound Report [id number] #1.00TIFF [facility] CHEMISTRYOrdered By: Lab ROP User on 10-02-2022 INR Coag (Bld) [Relative time] 2.1 {INR} High 0.7 - 1.2 [facility] POC Subsection POC Device SN [id number] Invalid Interpretation Code [facility] POC Subsection POC Username PARISA HYDE Invalid Interpretation Code [facility] POC Subsection POCT PT 23.2 s High 8.0 - 15.0 second(s) [facility] POC Subsection Sodium [Moles/Vol] [id number] mmol/L Invalid Interpretation Code [facility] POC Subsection COAGULATIONOrdered By: Elenita Hyde on 10-02-2022 INR Coag (Bld) [Relative time] 2.1 {INR} High 0.7 - 1.2 [facility] POCT PT 23.2 s High 8 - 15 second(s) [facility] POCT PT/INRon 10-02-2022 POCT INR 2.1 High .7-1.2 [facility] Comment on above: Performed By: #### 2 [id number] ####[facility] [address] [place] [address] POCT PT 23.2 second(s) High 8.0-15.0 [facility] Comment on above: Performed By: #### 2 [id number] ####[facility] [address] [place] [address] CHEMISTRYOrdered By: Lab ROP User on 08-21-2022 POC Device SN [id number] Invalid Interpretation Code [facility] POC Subsection POC Username CHRISTINA HAINES Invalid Interpretation Code [facility] POC Subsection Sodium [Moles/Vol] 770501866 mmol/L Invalid Interpretation Code [facility] POC Subsection COAGULATIONOrdered By: Ebenezer Haines on 08-21-2022 INR Coag (Bld) [Relative time] 2.1 {INR} High 0.7 - 1.2 [facility] POCT PT 23.3 s High 8 - 15 second(s) [facility] POCT PT/INRon 08-21-2022 POCT INR 2.1 High .7-1.2 [facility] Comment on above: Performed By: #### 2 [id number] ####[facility] [address] [place] [address] POCT PT 23.3 second(s) High 8.0-15.0 [facility] Comment on above: Performed By: #### 2 [id number] ####[facility] [address] [place] [address] Progress Note-Physicianon Progress Note-Physician Patient: SHAD RODRIGUEZ Age: 71 years Sex: Male : 1950 Associated Diagnoses: None Author: Aggie oHllingsworth Patient is seen today for their interval [...] stroke: no 4. Serious co-morbid conditions (recent RI, anemia with Hct <30%, CRI with SCr [...] # 90 tab(s), Refills(s) 0, [id number], 167.6, cm, 01/02/19 13:46:00 EST, Height/Length Measured, 95.8, kg, 01/02/19 13:46:00 EST, Weight Measured Eliquis 2.5 mg oral tablet: 2.5 mg = 1 tab(s), Oral, BID, # 60 tab(s), Refills(s) 5, Pharmacy: [facility]/pharmacy #[id number] Metamucil 525 mg oral capsule: 2,625 mg = 5 cap(s), Oral, Daily, X 90 day(s), # 450 cap(s), Refills(s) 3, Pharmacy: [facility]/pharmacy #[id number], 167.6, cm, 06/27/22 8:28:00 EDT, Height/Length Dosing, 94.9, kg, 06/27/22 8:28:00 EDT, Weight Dosing albuterol HFA 90 mcg/inh MDI: 2 puff(s), Inhalation, QID for wheezing, 6.7 gram, Refill(s) 0, [facility]/pharmacy #[id number] predniSONE 10 mg Tab: See Instructions, Oral 6 tabs for 1 day,5 tabs for 1 day,4 tabs for 1 day,3 tabs for 1 day,2 tabs for 1 day,1 tab for 1 day, # 21 tab(s), Refills(s) 0, Pharmacy: [facility]/pharmacy #[id number] Documented Medications Documented Immodium A-D 2 [...] list: All Problems Bloating / SNOMED CT 212091810 / Confirmed Constipation / SNOMED CT 97107517 / Confirmed Diverticulosis / SNOMED CT 0785820491 / Confirmed Acid reflux / SNOMED CT 705651904 / Confirmed Hemorrhoids / SNOMED CT 923536182 / Confirmed History of rectal cancer / SNOMED CT 8810806349 / Confirmed History of colon polyps / SNOMED CT 2087067515 / Confirmed Hypercoagulable state / SNOMED CT 784039592 / Confir (more content not included)... Normal [facility] Comment on above: Result Comment: Elec tronically Signed By: Aggie Hollingsworth\chelsy\Date and Time Signed: 08/21/22 08:26 EDT CHEMISTRYOrdered By: Lab ROP User on 07-10-2022 POC Device SN [id number] Invalid Interpretation Code [facility] POC Subsection POC Username SHAYY CAIN Invalid Interpretation Code [facility] POC Subsection Sodium [Moles/Vol] 339071971 mmol/L Invalid Interpretation Code [facility] POC Subsection COAGULATIONOrdered By: Elenita Hyde on 01-09-2022 POCT INR 2.8 High 0.7 - 1.2 [facility] POCT PT 30.2 High 8 - 15 [facility] CHEMISTRYOrdered By: SYSTEM SYSTEM on [...] spec) Detected Critically abnormal NOT DETECTED [facility] Comment on above: Result Comment: This test is not yet approved or cleared by the [place] FDA. When there are no FDA-approved or cleared tests available, and other criteria are met, FDA can make tests available under an emergency access mechanism called an Emergency Use Authorization (EUA). The EUA for this test is supported by the [place] of Health and Human Service's (HHS's) declaration [...] used). Performed By: #### C VDTB #### [facility] [address] [place] [address] Dr. Kayli Perez INFLUENZA A AND B AGon 12-14 [facility] SEE BELOW Normal [facility] Comment on above: Result Comment: Nega tive for Flu A protein angiten. Infection due to Flu A cannot be ruled out. Flu A angiten in the sample may be below the detection limit of the test. Performed By: #### I NFLUAB #### [facility] [address] [place] [address] Dr. [facility] Normal [facility] Comment on above: Result Comment: Nega tive for Flu B protein antigen. Infection due to Flu B cannot be ruled out. Flu B antigen in the sample may be below the detection limit of the test. Performed By: #### I NFLUAB #### [facility] [address] [place] [address] Dr. Kayli Perez INFLUENZA A AG Negative Normal NEGATIVE SEE COMMENT [facility] Comment on above: Performed By: #### I NFLUAB #### [facility] [address] [place] [address] Dr. Kayli Perez INFLUENZA B AG Negative Normal NEGATIVE SEE COMMENT [facility] Comment on above: Performed By: #### I NFLUAB #### [facility] [address] [address] [address] Kayli Perez INTERNAL CONTROLS Within Normal Limits Normal Wi thin Normal Limits [facility] Comment on above: Performed By: #### I NFLUAB #### [facility] [address] [address] [address] Kayli Perez CHEMISTRYOrdered By: Christina Haines on 11-28-2021 INR POC FT 2.5 [facility] PT POC FT 30.3 s High 10.8 - 13.6 second(s) [facility] CHEMISTRYOrdered By: Parisa Hyde on 10-13-2021 INR POC FT 2.4 [facility] PT POC FT 28.9 s High 10.8 - 13.6 second(s) [facility] CHEMISTRYOrdered By: Shayy Cain on 10-03-2021 INR POC FT 2.6 [facility] PT POC FT 31.6 s High 10.8 - 13.6 second(s) [facility] CHEMISTRYOrdered By: SYSTEM SYSTEM on [...] 60 mL/min/1.73 m2 Normal >=59mL/min/1 .73 m2 [facility] Chem S Globulin (S) [Mass/Vol] [...] 10 - 20 [facility] Remisol HEMATOLOGYOrdered By: [employer] SYSTEM on 06-14-2021 Basophils/100 WBC (Bld) 0.3 [...] HemeAutoSS Progress Noteon 07-02-2019 Progress Note [address] [place] [address] Progress Note Signed:[id number] Name: SHAD RODRIGUEZ MRUN: [id number] : 1950 Loc: 3S Age / Sex: 68/ M Adm Status: DIS Leonor Adm Date:06/03/19 Room/Bed: [facility] Date of Service 06/04/19 Subjective (ROS) [...] (Auto) 12.8 % (24.0-44.0) L 06/05/19 05:34 [place] % (Auto) 7.5 % (1.7-9.3) 06/05/19 05:34 Eos % (Auto) 1.3 % (0.0-5.0) 06/05/19 05:34 Baso % (Auto) 0.3 % (0.0-1.0) 06/05/19 05:34 Neut # (Auto) 4.5 10 3/uL (1.5-6.7) 06/05/19 05:34 Lymph # (Auto) 0.7 10 3/uL (1.0-3.5) L 06/05/19 05:34 Greenlee # (Auto) 0.4 10 3/uL (0.2-0.8) 06/05/19 [...] [id number] CC: Fercho GALLO-C, Danii A Normal [facility] CBC WITH AUTO DIFFon 020 Basophils (Bld) [#/Vol] 0.0 10 3/uL Normal 0.0-0.2 [facility] Comment on above: Performed By: #### P T #### [facility] - [address] [address] Basophils/100 WBC (Bld) 0.3 % Normal 0.0-1.0 [facility] Comment on above: Performed By: #### P T #### [facility] - [address] [address] Eosinophils (Bld) [#/Vol] 0.1 10 3/uL Normal 0.0-0.7 [facility] Comment on above: Performed By: #### P T #### [facility] - [address] [address] Eosinophils/100 WBC (Bld) 1.3 % Normal 0.0-5.0 [facility] Comment on above: Performed By: #### P T #### [facility] - [address] [address] Erythrocyte distribution width (RBC) [Ratio] 14.4 % High 11.5-14.0 [facility] Comment on above: Performed By: #### P T #### [facility] - [address] [address] Hematocrit (Bld) [Volume fraction] 39.2 % Normal 38.7-49.8 [facility] Comment on above: Performed By: #### P T #### [address] [address] Hemoglobin (Bld) [Mass/Vol] 13.2 g/dL Normal 12.9-16.6 [facility] Comment on above: Performed By: #### P T #### [address] [address] Lymphocytes (Bld) [#/Vol] 0.7 10 3/uL Low 1.0-3.5 [facility] Comment on above: Performed By: #### P T #### [facility] - [address] [address] Lymphocytes/100 WBC (Bld) 12.8 % Low 24.0-44.0 [facility] Comment on above: Performed By: #### P T #### [facility] - [address] [address] MCH (RBC) [Entitic mass] 28.9 pg Normal 27.0-31.0 [facility] Comment on above: Performed By: #### P T #### [facility] - [address] [address] MCHC (RBC) [Mass/Vol] 33.8 g/dL Normal 32.0-36.0 [facility] Comment on above: Performed By: #### P T #### [facility] - [address] [address] MCV (RBC) [Entitic vol] 85.5 fL Normal 78.0-100.0 [facility] Comment on above: Performed By: #### P T #### [facility] - [address] [address] Monocytes (Bld) [#/Vol] 0.4 10 3/uL Normal 0.2-0.8 [facility] Comment on above: Performed By: #### P T #### [facility] - [address] [address] Monocytes/100 WBC (Bld) 7.5 % Normal 1.7-9.3 [facility] Comment on above: Performed By: #### P T #### [facility] - [address] [address] Neutrophils (Bld) [#/Vol] 4.5 10 3/uL Normal 1.5-6.7 [facility] Comment on above: Performed By: #### P T #### [facility] - [address] [address] Neutrophils/100 WBC (Bld) 78.1 % High 36.0-66.0 [facility] Comment on above: Performed By: #### P T #### Main Lab - [address] [address] Platelet mean volume (Bld) [Entitic vol] 7.9 fL Normal 6.0-9.5 [facility] Comment on above: Performed By: #### P T #### [facility] - [address] [address] Platelets (Bld) [#/Vol] 180 10 3/uL Normal 150-450 [facility] Comment on above: Performed By: #### P T #### [facility] - [address] [address] RBC (Bld) [#/Vol] 4.58 x10 6/uL Normal 4.38-5.71 [facility] Comment on above: Performed By: #### P T #### [address] [address] WBC (Bld) [#/Vol] 5.8 10 3/uL Normal 4.0-10.5 [facility] Comment on above: Performed By: #### P T #### [facility] - [address] [address] COMPREHENSIVE METABOLIC PANE Sukhi 06-05-2019 Albumin [Mass/Vol] 3.1 g/dL Low 3.9-5.0 [facility] Comment on above: Performed By: #### P T #### [address] [address] Albumin/Globulin [Mass ratio] 1.2 {ratio} Normal 1.1-1.8 [facility] Comment on above: Performed By: #### P T #### [facility] - [address] [address] ALP [Catalytic activity/Vol] 84 U/L Normal 43-122 [facility] Comment on above: Performed By: #### P T #### [facility] - [address] [address] ALT/SGPT 48 U/L Normal 7-56 [facility] Comment on above: Performed By: #### P T #### [facility] - [address] [address] Anion gap [Moles/Vol] 8 mmol/L Low 9-18 [facility] Comment on above: Performed By: #### P T #### Main Lab - [facility] [address] [place] [address] AST/SGOT 26 U/L Normal 14-50 [facility] Comment on above: Performed By: #### P T #### [facility] - [address] [address] Bilirubin [Mass/Vol] 0.5 mg/dL Normal 0.2-1.3 [facility] Comment on above: Performed By: #### P T #### [facility] - [address] [address] Calcium [Mass/Vol] 8.5 mg/dL Normal 8.4-10.2 [facility] Comment on above: Performed By: #### P T #### [facility] - [address] [address] Chloride [Moles/Vol] 106 mmol/L Normal 98-107 [facility] Comment on above: Performed By: #### P T #### [facility] - [address] [address] CO2 [Moles/Vol] 27 mmol/L Normal 22-31 [facility] Comment on above: Performed By: #### P T #### [facility] - [address] [address] Creatinine [Mass/Vol] 1.30 mg/dL Normal 0.80-1.30 [facility] Comment on above: Performed By: #### P T #### [facility] - [address] [address] ESTIMATED CREAT CLEARANCE 52.26 [facility] Comment on above: Result Comment: COCK CROFT-GAULT FORMULA 1972 Performed By: #### P T #### Main Lab - [address] [address] ESTIMATED GLOMERULAR FILT RATE 55.000 mL/min [facility] Comment on above: Performed By: #### P T #### [facility] - [address] [address] Globulin (S) [Mass/Vol] 2.6 g/dL Normal [facility] Comment on above: Performed By: #### P T #### [facility] [facility] - [address] [address] Glucose [Mass/Vol] 108 mg/dL High 70-99 [facility] Comment on above: Result Comment: The glucose range is based on recommendations from the [place] [employer] for fasting blood glucose range. Performed By: #### P T #### [facility] - [address] [address] Potassium [Moles/Vol] 3.7 mmol/L Normal 3.6-5.0 [facility] Comment on above: Performed By: #### P T #### [facility] - [address] [address] Protein [Mass/Vol] 5.7 g/dL Low 6.3-8.2 [facility] Comment on above: Performed By: #### P T #### [facility] - [address] [address] Sodium [Moles/Vol] 137 mmol/L Normal 137-145 [facility] Comment on above: Performed By: #### P T #### [facility] - [address] [address] Urea nitrogen [Mass/Vol] 15 mg/dL Normal 7-21 [facility] Comment on above: Performed By: #### P T #### [facility] - [address] [address] Urea nitrogen/Creatinine [Mass ratio] 11.5 Ratio Normal 5.0-42.0 [facility] Comment on above: Performed By: #### P T #### [facility] - [address] [address] Age - Reported 68 Years Normal [facility] Comment on above: Performed By: #### P T #### [facility] - [address] [address] PT WITH INRon 06-05-2019 INR Coag (PPP) [Relative time] 3.1 {INR} Normal [facility] Comment on above: Result Comment: ISAAK MMENDED RANGES FOR INR: Therapeutic range for standard therapy INR: 2.0-3.0 Therapeutic range for high dose therapy INR: 2.5-3.5 Performed By: #### P T #### [facility] - [address] [address] PT Coag (PPP) [Time] 32.2 s High 12.0-14.5 [facility] Comment on above: Performed By: #### P T #### [facility] - [address] [address] URINE CULTUREon 06-05-2019 Bacteria identified Cx Nom (U) @06/03/19 1933: URINE CULT added. RFLXG = URINE CULT. @Source changed from IRICEL INS to CC by . URINE CULTURE: NO GROWTH AT 48 HOURS Normal [facility] Comment on above: Performed By: #### P T #### [facility] - [address] [address] CBC WITH AUTO DIFFon 020 Basophils (Bld) [#/Vol] 0.0 10 3/uL Normal 0.0-0.2 [facility] Comment on above: Performed By: #### P T, CMP, CBC #### [facility] - [address] [address] Basophils/100 WBC (Bld) 0.2 % Normal 0.0-1.0 [facility] Comment on above: Performed By: #### P T, CMP, CBC #### [facility] - [address] [address] Eosinophils (Bld) [#/Vol] 0.0 10 3/uL Normal 0.0-0.7 [facility] Comment on above: Performed By: #### P T, CMP, CBC #### [facility] - [address] [address] Eosinophils/100 WBC (Bld) 0.3 % Normal 0.0-5.0 [facility] Comment on above: Performed By: #### P T, CMP, CBC #### [facility] - [address] [address] Erythrocyte distribution width (RBC) [Ratio] 14.4 % High 11.5-14.0 [facility] Comment on above: Performed By: #### P T, CMP, CBC #### [facility] - [facility] [address] [place] [address] Hematocrit (Bld) [Volume fraction] 40.5 % Normal 38.7-49.8 [facility] Comment on above: Performed By: #### P T, CMP, CBC #### [facility] - [facility] [address] [place] [address] Hemoglobin (Bld) [Mass/Vol] 13.9 g/dL Normal 12.9-16.6 [facility] Comment on above: Performed By: #### P T, CMP, CBC #### [facility] - [facility] [address] [place] [address] Lymphocytes (Bld) [#/Vol] 0.6 10 3/uL Low 1.0-3.5 [facility] Comment on above: Performed By: #### P T, CMP, CBC #### [facility] - [facility] [address] [place] [address] Lymphocytes/100 WBC (Bld) 8.3 % Low 24.0-44.0 [facility] Comment on above: Performed By: #### P T, CMP, CBC #### [facility] - [facility] [address] [place] [address] MCH (RBC) [Entitic mass] 29.2 pg Normal 27.0-31.0 [facility] Comment on above: Performed By: #### P T, CMP, CBC #### [facility] - [facility] [address] [place] [address] MCHC (RBC) [Mass/Vol] 34.2 g/dL Normal 32.0-36.0 [facility] Comment on above: Performed By: #### P T, CMP, CBC #### [facility] - [facility] [address] [place] [address] MCV (RBC) [Entitic vol] 85.2 fL Normal 78.0-100.0 [facility] Comment on above: Performed By: #### P T, CMP, CBC #### [facility] - [facility] [address] [place] [address] Monocytes (Bld) [#/Vol] 0.4 10 3/uL Normal 0.2-0.8 [facility] Comment on above: Performed By: #### P T, CMP, CBC #### [facility] - [facility] [address] [place], [place] [address] Monocytes/100 WBC (Bld) 5.4 % Normal 1.7-9.3 [facility] Comment on above: Performed By: #### P T, CMP, CBC #### [facility] - [facility] [address] [place] [address] Neutrophils (Bld) [#/Vol] 5.8 10 3/uL Normal 1.5-6.7 [facility] Comment on above: Performed By: #### P T, CMP, CBC #### [facility] - [facility] [address] [place] [address] Neutrophils/100 WBC (Bld) 85.8 % High 36.0-66.0 [facility] Comment on above: Performed By: #### P T, CMP, CBC #### [facility] - [facility] [address] Platelet mean volume (Bld) [Entitic vol] 8.1 fL Normal 6.0-9.5 [facility] Comment on above: Performed By: #### P T, CMP, CBC #### [facility] - [facility] [address] Platelets (Bld) [#/Vol] 190 10 3/uL Normal 150-450 [facility] Comment on above: Performed By: #### P T, CMP, CBC #### [facility] - [facility] [address] [place] [address] RBC (Bld) [#/Vol] 4.75 x10 6/uL Normal 4.38-5.71 [facility] Comment on above: Performed By: #### P T, CMP, CBC #### [facility] - [facility] [address] [place] [address] WBC (Bld) [#/Vol] 6.7 10 3/uL Normal 4.0-10.5 [facility] Comment on above: Performed By: #### P T, CMP, CBC #### [facility] - [facility] [address] [place] [address] COMPREHENSIVE METABOLIC PANE Sukhi 06-04-2019 Albumin [Mass/Vol] 3.4 g/dL Low 3.9-5.0 [facility] Comment on above: Performed By: #### P T, CMP, CBC #### [facility] - [facility] [address] [place] [address] Albumin/Globulin [Mass ratio] 1.2 {ratio} Normal 1.1-1.8 [facility] Comment on above: Performed By: #### P T, CMP, CBC #### [facility] - [facility] [address] [place] [address] ALP [Catalytic activity/Vol] 92 U/L Normal 43-122 [facility] Comment on above: Performed By: #### P T, CMP, CBC #### [facility] - [facility] [address] [place] [address] ALT/SGPT 62 U/L High 7-56 [facility] Comment on above: Performed By: #### P T, CMP, CBC #### [facility] - [facility] [address] [place] [address] Anion gap [Moles/Vol] 8 mmol/L Low 9-18 [facility] Comment on above: Performed By: #### P T, CMP, CBC #### [facility] - [facility] [address] [place] [address] AST/SGOT 36 U/L Normal 14-50 [facility] Comment on above: Result Comment: Spec imen Slightly Hemolyzed. Performed By: #### P T, CMP, CBC #### [facility] - [facility] [address] [place] [address] Bilirubin [Mass/Vol] 0.5 mg/dL Normal 0.2-1.3 [facility] Comment on above: Performed By: #### P T, CMP, CBC #### [facility] [place], [place] [address] Calcium [Mass/Vol] 8.9 mg/dL Normal 8.4-10.2 [facility] Comment on above: Performed By: #### P T, CMP, CBC #### [facility] - [facility] [address] [place] [address] Chloride [Moles/Vol] 109 mmol/L High 98-[address] [facility] Comment on above: Result Comment: Inco nsistent with previous results. Performed By: #### P T, CMP, CBC #### [facility] [address] [place], [place] [address] CO2 [Moles/Vol] 27 mmol/L Normal 22-31 [facility] Comment on above: Performed By: #### P T, CMP, CBC #### [facility] - [facility] [address] [place], [place] [address] Creatinine [Mass/Vol] 1.28 mg/dL Normal 0.80-1.30 [facility] Comment on above: Performed By: #### P T, CMP, CBC #### [facility] - [facility] [address] [place], [place] [address] ESTIMATED CREAT CLEARANCE 53.08 Normal [facility] Comment on above: Result Comment: COCK CROFT-GAULT FORMULA 1972 Performed By: #### P T, CMP, CBC #### [facility] - [facility] [address] [place], [place] [address] ESTIMATED GLOMERULAR FILT RATE 56.000 mL/min Normal [facility] Comment on above: Performed By: #### P T, CMP, CBC #### [facility] - [facility] [address] [place], [place] [address] Globulin (S) [Mass/Vol] 2.9 g/dL Normal [facility] Comment on above: Performed By: #### P T, CMP, CBC #### [facility] - [facility] [address] [place], [place] [address] Glucose [Mass/Vol] 165 mg/dL High 70-99 [facility] Comment on above: Result Comment: The glucose range is based on recommendations from the [place] [employer] for fasting blood glucose range. Performed By: #### P T, CMP, CBC #### [facility] - [facility] [address] [place], [place] [address] Potassium [Moles/Vol] 3.7 mmol/L Normal 3.6-5.0 [facility] Comment on above: Result Comment: Spec imen Slightly Hemolyzed. Performed By: #### P T, CMP, CBC #### [facility] - [facility] [address] [place] [address] Protein [Mass/Vol] 6.3 g/dL Normal 6.3-8.2 [facility] Comment on above: Performed By: #### P T, CMP, CBC #### [facility] - [facility] [address] [place] [address] Sodium [Moles/Vol] 140 mmol/L Normal 137-145 [facility] Comment on above: Performed By: #### P T, CMP, CBC #### [facility] - [facility] [address] [place] [address] Urea nitrogen [Mass/Vol] 17 mg/dL Normal 7-21 [facility] Comment on above: Performed By: #### P T, CMP, CBC #### [facility] - [facility] [address] [place] [address] Urea nitrogen/Creatinine [Mass ratio] 13.3 Ratio Normal 5.0-42.0 [facility] Comment on above: Performed By: #### P T, CMP, CBC #### [facility] - [facility] [address] [place] [address] Age - Reported 68 Years Normal [facility] Comment on above: Performed By: #### P T, CMP, CBC #### [facility] - [facility] [address] [place] [address] CREATINE KINASE MBon 020 CK.MB [Mass/Vol] 4.0 ng/mL High 0.0-3.7 [facility] Comment on above: Performed By: #### C KMB 1 #### [facility] - [facility] [address] [place] [address] CK.MB [Mass/Vol] 3.8 ng/mL High 0.0-3.7 [facility] Comment on above: Performed By: #### C KMB 1 #### [facility] - [facility] [place], [place] [address] CK.MB [Mass/Vol] 4.4 ng/mL High 0.0-3.7 [facility] Comment on above: Performed By: #### P T #### [facility] - [facility] [address] [place] [address] ABDOMEN PELVIS W/Oon 05-13 CT ABDOMEN PELVIS W/O [facility] [address] [place] [address] Diagnostic Imaging Report : [id number] Signed Name: SHAD RODRIGUEZ MRUN: [id number] : 1950 Loc: 3S Age / Sex: 68 / M ADM Status: ADM Leonor ADM Date: 06/03/19 Room/Bed: [facility]: CT ABDOMEN PELVIS W/O Order Number(s): [id number] Ordered Date: 06/04/19 Ordered Time: 5 EXAMINATION: [...] Signed Date/Time: 06/04/19225 Transcribed Date/Time: 06/04/19221 Normal [facility] DRUG SCREEN,URINEon 06-04-19 AMPHETAMINE SCREEN,URINE Negative Normal NEGATIVE [facility] Comment on above: Order Comment: @ COL L DATE was changed from 06/03/19 to 06/04/19 @ by [id number]. Old specimen was [id number]. Result Comment: Nega tive cut-off concentration <1000 ng/mL Performed By: #### U DS #### [facility] - [facility] [place] [id number] BARBITURATE SCREEN, URINE Negative Normal NEGATIVE [facility] Comment on above: Order Comment: @ COL L DATE was changed from 06/03/19 to 06/04/19 @ by [id number]. Old specimen was [id number]. Result Comment: Nega tive cut-off concentration <200 ng/mL Performed By: #### U DS #### [facility] - [facility] [address] [place], [place] [address] BENZODIAZEPINES SCREEN,URINE Negative Normal NEGATIVE [facility] Comment on above: Order Comment: @ COL L DATE was changed from 06/03/19 to 06/04/19 @ by [id number]. Old specimen was [id number]. Result Comment: Nega tive cut-off concentration <200 ng/mL Performed By: #### U DS #### [facility] - [facility] [address] [place], [place] [address] BUPRENORPHINE SCREEN,URINE Negative Normal NEGATIVE [facility] Comment on above: Order Comment: @ COL L DATE was changed from 06/03/19 to 06/04/19 @ by [id number]. Old specimen was [id number]. Result Comment: Nega tive cut-off concentration <10 ng/mL Performed By: #### U DS #### [facility] [address] [place], [place] [address] CANNABINOID SCREEN,URINE Negative Normal NEGATIVE [facility] Comment on above: Order Comment: @ COL L DATE was changed from 06/03/19 to 06/04/19 @ by [id number]. Old specimen was [id number]. Result Comment: Nega tive cut-off concentration <50 ng/mL Performed By: #### U DS #### [facility] [address] [place], [place] [address] COCAINE SCREEN,URINE Negative Normal NEGATIVE [facility] Comment on above: Order Comment: @ COL L DATE was changed from 06/03/19 to 06/04/19 @ by [id number]. Old specimen was [id number]. Result Comment: Nega tive cut-off concentration <300 ng/mL Performed By: #### U DS #### [facility] [place] [id number] METHADONE SCREEN,URINE Negative Normal NEGATIVE [facility] Comment on above: Order Comment: @ COL L DATE was changed from 06/03/19 to 06/04/19 @ by [id number]. Old specimen was [id number]. Result Comment: Nega tive cut-off concentration <300 ng/mL Performed By: #### U DS #### [facility] [address] [place], [place] [address] OPIATE SCREEN,URINE Negative Normal NEGATIVE [facility] Comment on above: Order Comment: @ COL L DATE was changed from 06/03/19 to 06/04/19 @ by [id number]. Old specimen was [id number]. Result Comment: Nega tive cut-off concentration <300 ng/mL Performed By: #### U DS #### [facility] [place] [address] OXYCODONE SCREEN,URINE Negative Normal NEGATIVE [facility] Comment on above: Order Comment: @ COL L DATE was changed from 06/03/19 to 06/04/19 @ by [id number]. Old specimen was [id number]. Result Comment: Nega tive cut-off concentration <300 ng/mL Performed By: #### U DS #### [facility] [place] [address] PHENCYCLIDINE SCREEN,URINE Negative Normal NEGATIVE [facility] Comment on above: Order Comment: @ COL L DATE was changed from 06/03/19 to 06/04/19 @ by [id number]. Old specimen was [id number]. Result Comment: Nega tive cut-off concentration <25 ng/mL Performed By: #### U DS #### [facility] - [facility] [address] [place], [place] [address] NITRITE,URINE Negative Normal NEGATIVE [facility] Comment on above: Order Comment: @ COL L DATE was changed from 06/03/19 to 06/04/19 @ by [id number]. Old specimen was [id number]. Performed By: #### U DS #### [facility] - [facility] [address] [place] [address] pH (U) 6.0 [pH] Normal 5.0-8.0 [facility] Comment on above: Order Comment: @ COL L DATE was changed from 06/03/19 to 06/04/19 @ by [id number]. Old specimen was [id number]. Performed By: #### U DS #### [facility] - [facility] [address] [place] [address] SPECIFIC GRAVITY,URINE 1.027 SP.GR. Normal <1.029 [facility] Comment on above: Order Comment: @ COL L DATE was changed from 06/03/19 to 06/04/19 @ by [id number]. Old specimen was [id number]. Performed By: #### U DS #### [facility] - [facility] [address] [place] [address] ECHOCARDIOGRAM COMPLETEon ECHOCARDIOGRAM COMPLETE [facility] [address] [place] [address] Cardiovascular Imaging Report : [id number] Signed Name: SHAD RODRIGUEZ MRUN: [id number] : 1950 Loc: 3S Age / Sex: 68 / M ADM Status: ADM Leonor ADM Date: 06/03/19 Room/Bed: [facility] Ordering Physician: Vick ENCISO [facility] Procedure: ECHOCARDIOGRAM COMPLETE Order Number(s): [id number] Ordered Date: 06/04/19 Ordered Time: 0700 SEOSYNCVPROD [id number] Transthoracic Echo Report Ht (in): 67 Wt (lb): 221 BSA: 2.2 Technologist: Ingris Mesesr RDCS Nurse: Gracie Goldberg BSN, Stay Type: [...] 4.4 cm RV Mid 3.7 cm RV [place] to Base 8.6 cm Ascending Aorta Diameter 3.2 cm M-MODE Aortic Root Diameter MM 3.6 cm LA Systolic Diameter MM 4.2 cm LA Ao Ratio MM 1.2 DOPPLER AV Peak Velocity 1.3 m/s AV Peak Gradient 6.6 mmHg LVOT Peak Velocity 0.8 m/s LVOT Peak Gradient 2.5 mmHg LVOT Mean Gradient 1.3 mmHg LVOT Velocity Time Integral 16.7 cm MV Deceleration [place] 1.3 m/s? MV Pressure Half Time 83.2 [...] 06/04/19 1132 Transcribed Date/Time: 06/04/19 0947 Normal [facility] History & Physicalon 020 History & Physical [address] [place] [address] History Physical Signed with Addenda:[id number] Name: SHAD RODRIGUEZ MRUN: [id number] : 1950 Loc: 3S Age / Sex: 68/ M Adm Status: ADM Leonor Adm Date:06/03/19 Room/Bed: [facility] ADDENDUM-- -------- Bilateral lower extremities have chronic [...] brought into the emergency room by the older worker specialist for further evaluation and management of a syncopal event. Patient was in his usual state of health until this afternoon. 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 He was taking the exit to get to the Highway around 4:30 PM after exchanging the trailer with his colleague. He felt like his truck is spinning around. The next thing he knew was older worker specialist were knocking on the door. He was found slumped over on the steering wheel. He did not experience any chest pain, palpitations, focal weakness, vision changes or diaphoresis prior to the episode. No prior similar symptoms. No reports of seizure-like activity. No reports of bladder or bowel incontinence. No history of RI, CVA or seizures. He had his breakfast [...] (Auto) 12.0 % (24.0-44.0) L 06/03/19 17:36 [place] % (Auto) 6.0 % (1.7-9.3) 06/03/19 17:36 Eos % (Auto) 0.6 % (0.0-5.0) 06/03/19 17:36 Baso % (Auto) 0.3 % (0.0-1.0) 06/03/19 17:36 Neut # (Auto) 5.7 10 3/uL (1.5-6.7) 06/03/19 17:36 Lymph # (Auto) 0.8 10 3/uL (1.0-3.5) L 06/03/19 17:36 [place] # (Auto) 0.4 10 3/uL (0.2-0.8) 06/03/19 [...] had an appointment with surgeon at [facility] for rectal hernia repair about one [...] Medical Status: Chronic 06/04/197 CC: Vick ENCISO, [facility] Normal [facility] LACTATE FOLLOW UPon 06-04-19 LACTATE FOLLOW UP 1.0 mmol/L Normal 0.7-2.4 [facility] Comment on above: Order Comment: @05/130: LACTATE 2 added. RFLXG = LACTICRFX. Performed By: #### L ACTATE 2 #### [facility] - [facility] [address] PT WITH INRon 06-04-2019 INR Coag (PPP) [Relative time] 3.0 {INR} Normal [facility] Comment on above: Order Comment: @ Pre viously cancelled by [id number] on 06/04/19 at 0924. @ Uncancelled by [id number] on 06/04/19 at 0931. @ Specimen Rejected Previously Y. @ Previous Rejection Reason DUPLICATE - Duplicate orders. Result Comment: ISAAK MMENDED RANGES FOR INR: Therapeutic range for standard therapy INR: 2.0-3.0 Therapeutic range for high dose therapy INR: 2.5-3.5 Performed By: #### P T #### [facility] - [facility] [address] [place] [address] PT Coag (PPP) [Time] 31.2 s High 12.0-14.5 [facility] Comment on above: Order Comment: @ Pre viously cancelled by [id number] on 06/04/19 at 0924. @ Uncancelled by [id number] on 06/04/19 at 0931. @ Specimen Rejected Previously Y. @ Previous Rejection Reason DUPLICATE - Duplicate orders. Performed By: #### P T #### [facility] - [facility] [address] [place] [address] INR Coag (PPP) [Relative time] 3.1 {INR} Normal [facility] Comment on above: Result Comment: ISAAK MMENDED RANGES FOR INR: Therapeutic range for standard therapy INR: 2.0-3.0 Therapeutic range for high dose therapy INR: 2.5-3.5 Performed By: #### P T, CMP, CBC #### [facility] - [facility] [address] [place] [address] PT Coag (PPP) [Time] 32.1 s High 12.0-14.5 [facility] Comment on above: Performed By: #### P T, CMP, CBC #### [facility] - [facility] [address] [place] [address] TROPONIN Ion 06-04-2019 Troponin I.cardiac [Mass/Vol] 0.06 ng/mL High 0.0-0.03 [facility] Comment on above: Result Comment: Refe rence Interval < or = 0.03 ng/mL Clinical Correlation Needed 0.03 - 0.11 ng/mL AMI Cutoff, Presumptive = or > 0.12 ng/mL Performed By: #### T ROP 1 #### [facility] [address] [place] [address] Troponin I.cardiac [Mass/Vol] 0.06 ng/mL High 0.0-0.03 [facility] Comment on above: Result Comment: Refe rence Interval < or = 0.03 ng/mL Clinical Correlation Needed 0.03 - 0.11 ng/mL AMI Cutoff, Presumptive = or > 0.12 ng/mL Performed By: #### P T #### Main Lab - [place] [id number] US CAROTID DUPLEX BILATERALo n 06-04-2019 US CAROTID DUPLEX BILATERAL [facility] [address] [place], [place] [id number] Diagnostic Imaging Report : [id number] Signed Name: SHAD RODRIGUEZ MRUN: [id number] : 1950 Loc: 3S Age / Sex: 68 / M ADM Status: ADM Leonor ADM Date: 06/03/19 Room/Bed: [facility]ing Phys[facility] Procedure: US CAROTID DUPLEX BILATERAL Order Number(s): [id number] Ordered Date: 06/04/19 Ordered Time: 0700 EXAMINATION: [...] 06/04/19 1142 Transcribed Date/Time: 06/04/19 1138 Normal [facility] Waveform Imaging Reporton Waveform Imaging Report [facility] [address] [place] [address] Waveform Imaging Report : [id number] Signed Name: SHAD RODRIGUEZ MRUN: [id number] : 1950 Loc: 3S Age / Sex: 68 / M ADM Status: ADM Leonor ADM Date: 06/03/19 Room/Bed: 317- Ordering Physician: Modesto Hickman MD Procedure: EKG Order Number(s): [id number] Ordered Date: 06/04/19 Ordered Time: 06 Test Date: 2019-06-04 03:50:57 Pat Name: SHAD RODRIGUEZ Department: [address] [place] [address] Room: 317 Gender: M 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 Performed By: #### T ROP 1 #### [facility] [address] [place], [place] [address] CBC WITH AUTO DIFFon 020 Basophils (Bld) [#/Vol] 0.0 10 3/uL Normal 0.0-0.2 [facility] Comment on above: Performed By: #### P T #### [facility] [address] [place], [place] [address] Basophils/100 WBC (Bld) 0.3 % Normal 0.0-1.0 [facility] Comment on above: Performed By: #### P T #### [facility] [address] [place], [place] [address] Eosinophils (Bld) [#/Vol] 0.0 10 3/uL Normal 0.0-0.7 [facility] Comment on above: Performed By: #### P T #### [facility] - [address] [address] Eosinophils/100 WBC (Bld) 0.6 % Normal 0.0-5.0 [facility] Comment on above: Performed By: #### P T #### [facility] - [address] [address] Erythrocyte distribution width (RBC) [Ratio] 14.2 % High 11.5-14.0 [facility] Comment on above: Performed By: #### P T #### [facility] - [address] [address] Hematocrit (Bld) [Volume fraction] 42.8 % Normal 38.7-49.8 [facility] Comment on above: Performed By: #### P T #### [facility] - [address] [address] Hemoglobin (Bld) [Mass/Vol] 14.6 g/dL Normal 12.9-16.6 [facility] Comment on above: Performed By: #### P T #### [facility] - [address] [address] Lymphocytes (Bld) [#/Vol] 0.8 10 3/uL Low 1.0-3.5 [facility] Comment on above: Performed By: #### P T #### [facility] - [address] [address] Lymphocytes/100 WBC (Bld) 12.0 % Low 24.0-44.0 [facility] Comment on above: Performed By: #### P T #### [facility] - [address] [address] MCH (RBC) [Entitic mass] 29.2 pg Normal 27.0-31.0 [facility] Comment on above: Performed By: #### P T #### [facility] - [address] [address] MCHC (RBC) [Mass/Vol] 34.1 g/dL Normal 32.0-36.0 [facility] Comment on above: Performed By: #### P T #### [address] [address] MCV (RBC) [Entitic vol] 85.7 fL Normal 78.0-100.0 [facility] Comment on above: Performed By: #### P T #### [address] [address] Monocytes (Bld) [#/Vol] 0.4 10 3/uL Normal 0.2-0.8 [facility] Comment on above: Performed By: #### P T #### [address] [address] Monocytes/100 WBC (Bld) 6.0 % Normal 1.7-9.3 [facility] Comment on above: Performed By: #### P T #### [address] [address] Neutrophils (Bld) [#/Vol] 5.7 10 3/uL Normal 1.5-6.7 [facility] Comment on above: Performed By: #### P T #### [address] [address] Neutrophils/100 WBC (Bld) 81.1 % High 36.0-66.0 [facility] Comment on above: Performed By: #### P T #### [address] [address] Platelet mean volume (Bld) [Entitic vol] 7.7 fL Normal 6.0-9.5 [facility] Comment on above: Performed By: #### P T #### [address] [address] Platelets (Bld) [#/Vol] 187 10 3/uL Normal 150-450 [facility] Comment on above: Performed By: #### P T #### [address] [address] RBC (Bld) [#/Vol] 4.99 x10 6/uL Normal 4.38-5.71 [facility] Comment on above: Performed By: #### P T #### [address] [address] WBC (Bld) [#/Vol] 7.0 10 3/uL Normal 4.0-10.5 [facility] Comment on above: Performed By: #### P T #### [facility] [address] [place] [address] COMPREHENSIVE METABOLIC PANE Sukhi 06-03-2019 Albumin [Mass/Vol] 3.9 g/dL Normal 3.9-5.0 [facility] Comment on above: Performed By: #### P T #### [facility] Lab - [address] [address] Albumin/Globulin [Mass ratio] 1.4 {ratio} Normal 1.1-1.8 [facility] Comment on above: Performed By: #### P T #### Main Lab - [address] [address] ALP [Catalytic activity/Vol] 104 U/L Normal 43-122 [facility] Comment on above: Performed By: #### P T #### Main [facility] - [address] [address] ALT/SGPT 78 U/L High 7-56 [facility] Comment on above: Performed By: #### P T #### Main [facility] - [address] [address] Anion gap [Moles/Vol] 15 mmol/L Normal 9-18 [facility] Comment on above: Performed By: #### P T #### Main [facility] - [address] [address] AST/SGOT 58 U/L High 14-50 [facility] Comment on above: Performed By: #### P T #### Main Lab - [address] [address] Bilirubin [Mass/Vol] 1.0 mg/dL Normal 0.2-1.3 [facility] Comment on above: Performed By: #### P T #### [facility] - [facility] [address] [place] [address] Calcium [Mass/Vol] 9.0 mg/dL Normal 8.4-10.2 [facility] Comment on above: Performed By: #### P T #### Main Lab - [address] [place], [place] [address] Chloride [Moles/Vol] 103 mmol/L Normal 98-107 [facility] Comment on above: Performed By: #### P T #### [facility] - [address] [address] CO2 [Moles/Vol] 25 mmol/L Normal 22-31 [facility] Comment on above: Performed By: #### P T #### [facility] - [address] [address] Creatinine [Mass/Vol] 1.50 mg/dL High 0.80-1.30 [facility] Comment on above: Performed By: #### P T #### [facility] - [address] [address] ESTIMATED CREAT CLEARANCE 45.29 [facility] Comment on above: Result Comment: COCK CROFT-GAULT FORMULA 1973 Performed By: #### P T #### [address] [address] ESTIMATED GLOMERULAR FILT RATE 47.000 mL/min [facility] Comment on above: Performed By: #### P T #### [facility] - [address] [address] Globulin (S) [Mass/Vol] 2.8 g/dL [facility] Comment on above: Performed By: #### P T #### [address] [address] Glucose [Mass/Vol] 167 mg/dL High 70-99 [facility] Comment on above: Result Comment: The glucose range is based on recommendations from the [place] [employer] for fasting blood glucose range. Performed By: #### P T #### [facility] - [address] [address] Potassium [Moles/Vol] 4.0 mmol/L Normal 3.6-5.0 [facility] Comment on above: Performed By: #### P T #### [address] [address] Protein [Mass/Vol] 6.7 g/dL Normal 6.3-8.2 [facility] Comment on above: Performed By: #### P T #### Main Lab - [facility] [address], [place] [address] Sodium [Moles/Vol] 139 mmol/L Normal 137-145 [facility] Comment on above: Performed By: #### P T #### Main Lab - [facility] [address] [place] [address] Urea nitrogen [Mass/Vol] 20 mg/dL Normal 7-21 [facility] Comment on above: Performed By: #### P T #### Main [facility] - [facility] [address] [place] [address] Urea nitrogen/Creatinine [Mass ratio] 13.3 Ratio Normal 5.0-42.0 [facility] Comment on above: Performed By: #### P T #### Main [facility] - [facility] [address] [place] [address] Age - Reported 68 Years Normal [facility] Comment on above: Performed By: #### P T #### Main [facility] - [facility] [address] [place] [address] CREATINE KINASEon 06-03-2019 CK [Catalytic activity/Vol] 195 U/L High 55-170 [facility] Comment on above: Performed By: #### T ROP 1 #### Main Lab - [facility] [address] [place] [address] CREATINE KINASE MBon 020 CK.MB [Mass/Vol] 4.2 ng/mL High 0.0-3.7 [facility] Comment on above: Performed By: #### T ROP 1 #### Main Lab - [facility] [address] [place] [address] ANGIO CHEST W/CONTRASTon 06-03-2019 CT ANGIO CHEST W/CONTRAST [facility] [address] [place] [address] Diagnostic Imaging Report : [id number] Signed Name: SHAD RODRIGUEZ MRUN: [id number] : 1950 Loc: ED Age / Sex: 68 / M ADM Status: REG ER ADM Date: 06/03/19 Room/Bed: Ordering Physician: Steve Johnson MD Procedure: CT ANGIO CHEST W/CONTRAST Order Number(s): [id number] Ordered Date: 06/03/19 Ordered Time: 1825 EXAMINATION: [...] Signed Date/Time: 06/03/191930 Transcribed Date/Time: 06/03/191927 Normal [facility] CT HEAD W/O CONTRASTon 06-02 CT HEAD W/O CONTRAST [facility] [address] [place] [address] Diagnostic Imaging Report : [id number] Signed Name: SHAD RODRIGUEZ MRUN: [id number] : 1950 Loc: ED Age / Sex: 68 / M ADM Status: REG ER ADM Date: 06/03/19 Room/Bed: Ordering Physician: Steve Johnson MD Procedure: CT HEAD W/O CONTRAST Order Number(s): [id number] Ordered Date: 06/03/19 Ordered Time: 172 EXAMINATION: [...] Signed Date/Time: 06/03/191817 Transcribed Date/Time: 06/03/191813 Normal [facility] ED Physician Documentationon 06-03-2019 ED Physician Documentation [facility] [place] [address] Physician Documenation Signed:[phone] [id number]: [id number] : 1950 Loc: ED Age / Sex: [...] Insulin Reaction, Hypovolemia, Medication Reaction, Metabolic Reaction, RI, Pulmonary Embolism, Seizure, TIA, Vasovagal Episode - [...] Lymph % (Auto) 12.0 L (24.0-44.0) % Greenlee % (Auto) 6.0 (1.7-9.3) % Eos % (Auto) 0.6 (0.0-5.0) % Baso % (Auto) 0.3 (0.0-1.0) % Neut # (Auto) 5.7 (1.5-6.7) 10 3/uL Lymph # (Auto) 0.8 L (1.0-3.5) 10 3/uL [place] # (Auto) 0.4 (0.2-0.8) 10 3/uL Eos [...] Urine Clarity Urine pH (5.0-8.0) Ur Specific [place] (<1.029) SP.GR. Urine Protein (NEGATIVE) mg/dL Urine [...] (36.0-66.0) % Lymph % (Auto) (24.0-44.0) % [place] % (Auto) (1.7-9.3) % Eos % (Auto) (0.0-5.0) % Baso % (Auto) (0.0-1.0) % Neut # (Auto) (1.5-6.7) 10 3/uL Lymph # (Auto) (1.0-3.5) 10 3/uL [place] # (Auto) (0.2-0.8) 10 3/uL Eos # [...] Urine Clarity Urine pH (5.0-8.0) Ur Specific [place] (<1.029) SP.GR. Urine Protein (NEGATIVE) mg/dL Urine [...] (36.0-66.0) % Lymph % (Auto) (24.0-44.0) % [place] % (Auto) (1.7-9.3) % Eos % (Auto) (0.0-5.0) % Baso % (Auto) (0.0-1.0) % Neut # (Auto) (1.5-6.7) 10 3/uL Lymph # (Auto) (1.0-3.5) 10 3/uL [place] # (Auto) (0.2-0.8) 10 3/uL Eos # [...] Clear Urine pH 6.0 (5.0-8.0) Ur Specific [place] 1.021 (<1.029) SP.GR. Urine Protein 30 H [...] Orders: Orders Category Date Time Status Apply Electroplater Automatic STAT Care 06/03/19 17:21 Completed Contrast Media Screening Form ONETIME Care 06/03/19 18:27 Completed ED Electroplater Automatic Q2H Care 06/03/19 17:21 Active EKG - [...] ENCISO, Steve Cortes; PCP DO, Unknown Normal [facility] LACTATEon 06-03-2019 Lactate [Moles/Vol] 2.1 mmol/L Normal 0.7-2.4 [facility] Comment on above: Order Comment: @05/13 04/02 1806: R LACTATE Y/N added. RFLXG = LAC YN. Performed By: #### T ROP 1 #### [facility] - [facility] [address] [place] [address] LIPASEon 06-03-2019 Lipase [Catalytic activity/Vol] 19 U/L Low 23-300 [facility] Comment on above: Performed By: #### T ROP 1 #### [facility] - [facility] [address] [place] [address] PARTIAL THROMBOPLASTIN TIMEo n 06-03-2019 aPTT Coag (Bld) [Time] 33.3 s Normal 24.1-41.2 [facility] Comment on above: Performed By: #### T ROP 1 #### Main [facility] - [facility] [address] [place] [address] PT WITH INRon 06-03-2019 INR Coag (PPP) [Relative time] 3.0 {INR} Normal [facility] Comment on above: Result Comment: ISAAK MMENDED RANGES FOR INR: Therapeutic range for standard therapy INR: 2.0-3.0 Therapeutic range for high dose therapy INR: 2.5-3.5 Performed By: #### T ROP 1 #### Main Lab - [facility] [address], [place] [address] PT Coag (PPP) [Time] 31.1 s High 12.0-14.5 [facility] Comment on above: Performed By: #### T ROP 1 #### Main Lab - [facility] [address], [place] [address] TROPONIN Ion 06-03-2019 Troponin I.cardiac [Mass/Vol] ng/mL Normal 0.0-0.03 [facility] Comment on above: Result Comment: Refe rence Interval < or = 0.03 ng/mL Clinical Correlation Needed 0.03 - 0.11 ng/mL AMI Cutoff, Presumptive = or > 0.12 ng/mL Performed By: #### T ROP 1 #### Main Lab - [address] [address] URINE PROTOCOLon 06-03-2019 BLOOD,URINE SMALL Abnormal NEGATIVE [facility] Comment on above: Performed By: #### U A w RFX x2, URINE #### [facility] - [facility] [address] [place] [address] Clarity (U) CLEAR Normal [facility] Comment on above: Performed By: #### U A w RFX x2, URINE #### [facility] [address] [place] [address] Color (U) YELLOW Normal [facility] Comment on above: Performed By: #### U A w RFX x2, URINE #### [facility] - [facility] [address] [place] [address] Glucose Ql (U) 50 mg/dL Abnormal NEGATIVE [facility] Comment on above: Performed By: #### U A w RFX x2, URINE #### [facility] - [facility] [address] [place] [address] Ketones Ql (U) TRACE Abnormal NEGATIVE [facility] Comment on above: Performed By: #### U A w RFX x2, URINE #### [facility] - [facility] [address] [place] [address] Leukocyte esterase Test strip Ql (U) Negative Normal NEGATIVE [facility] Comment on above: Performed By: #### U A w RFX x2, URINE #### [facility] - [facility] [address] [place] [address] NITRITE,URINE Negative Normal NEGATIVE [facility] Comment on above: Performed By: #### U A w RFX x2, URINE #### Main [facility] - [facility] [address] [place] [address] pH (U) 6.0 [pH] Normal 5.0-8.0 [facility] Comment on above: Performed By: #### U A w RFX x2, URINE #### [facility] [address], [place] [address] Protein (U) [Mass/Vol] 30 mg/dL Abnormal NEGATIVE [facility] Comment on above: Performed By: #### U A w RFX x2, URINE #### Main [facility] - [facility] [address], [place] [address] RBC LM.HPF (Urine sed) [#/Area] 4-10 Abnormal [facility] Comment on above: Performed By: #### U A w RFX x2, URINE #### [facility] - [facility] [address] [place] [address] REFLEX TO URINE CULTURE SEE URINE CULTURE Abnormal [facility] Comment on above: Performed By: #### U A w RFX x2, URINE #### Main [facility] - [facility] [address] [place] [address] Specific gravity (U) [Rel density] 1.021 SP.GR. Normal <1.029 [facility] Comment on above: Performed By: #### U A w RFX x2, URINE #### Main [facility] [place], [place] [address] UROBILINOGEN,URINE Negative Normal <2 mg/dL [facility] Comment on above: Performed By: #### U A w RFX x2, URINE #### Main Lab - [facility] [place], [place] [address] WBC LM.HPF (Urine sed) [#/Area] 0-5 Normal [facility] Comment on above: Result Comment: Unle ss otherwise noted, urine microscopic evaluation is normal. Performed By: #### U A w RFX x2, URINE #### Main [facility] - [facility] [address] [place] [address] Waveform Imaging Reporton Waveform Imaging Report [facility] [address] [place] [address] Waveform Imaging Report : [id number] Signed Name: SHAD RODRIGUEZ MRUN: [id number] : 1950 Loc: 3S Age / Sex: 68 / M ADM Status: ADM Leonor ADM Date: 04/22/20 Room/Bed: [facility] Ordering Physician: Steve Johnson MD Procedure: EKG Order Number(s): [id number] Ordered Date: 06/03/19 Ordered Time: 1720 Test Date: 2019-06-03 17:13:08 Pat Name: SHAD RODRIGUEZ Department: ED Room: [facility] 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 Electronically Signed On 06-04-2019 6:06:11 EDT by Ronn Arreola Dictated By: Ronn Arreola DO Dictated Date/Time: 06/03/19 171 Signed By: Ronn Arreola Signed Date/Time: 06/04/19 0606 Transcribed Date/Time: Normal [facility] XR CHEST, ONE VIEWon 020 XR CHEST, ONE VIEW [facility] [address] [place] [address] Diagnostic Imaging Report : [id number] Signed Name: SHAD RODRIGUEZ MRUN: [id number] : 1950 Loc: ED Age / Sex: 68 / M ADM Status: REG ER ADM Date: 06/03/19 Room/Bed: Ordering Physician: Steve Johnson MD Procedure: XR CHEST, ONE VIEW Order Number(s): [id number] Ordered Date: 06/03/19 Ordered Time: 1720 EXAMINATION: [...] Signed Date/Time: 06/03/191810 Transcribed Date/Time: 06/03/191807 Normal [facility] Protimeon 01-20-2018 INR Coag RelTime (Bld) 1.5 {INR} High 0.9-1.3 [facility] Comment on above: Result Comment: Alexandra min K Antagonist (VKA) Therapeutic Range: INR 2 to 3 (Target INR of 2.5)Note: For patients treated with VKA drugs, such as warfarin, the [place] [employer] 2012 Guideline recommends [...] al. Chest 2012, 141:7S-47SNishimura RA, et al. [facility] 2017, 70: 252-289 Performed By: #### P T ####[place] [id number] [place] [phone] PT Sec 14.8 sec High 9.7-13.0 [facility] Comment on above: Performed By: #### P T ####[place] [id number] [place] [phone] Vital Signs Date Time Vital Sign Value Performing Clinician Facility 07-25-2023 11:38-0400 Body temperature 98.24 [degF] Dougieanna Harmon [facility] 07-25-2023 11:38-0400 Diastolic blood pressure 55 mm[Hg] [facility] 07-25-2023 11:38-0400 Heart rate 62 /min [facility] 07-25-2023 11:38-0400 Mean blood pressure 65 mm[Hg] Dougie Harmon [facility] 07-25-2023 11:38-0400 Respiratory rate 16 /min Dougieanna Harmon [facility] 07-25-2023 11:38-0400 SaO2% (BldA) [Mass fraction] 92 % Dougieanna Harmon [facility] 07-25-2023 11:38-0400 Systolic blood pressure 86 mm[Hg] [facility] 06-27-2023 13:43-0400 Body temperature 97.7 [degF] [facility]-27-[facility]23 13:43-0400 Diastolic blood pressure 80 mm[Hg] [facility] 06-27-2023 13:43-0400 Heart rate 59 /min [facility] 06-27-2023 13:43-0400 Mean blood pressure 95 mm[facility]Hg[facility] 13:43-0400 Respiratory rate 16 /[facility] 06-27-2023 13:43-0400 SaO2% (BldA) [Mass fraction] 97 % [facility] 06-27-2023 13:43-0400 Systolic blood pressure 124 mm[Hg] [facility] 04-15-2023 12:15-0500 Diastolic blood pressure 81 mm[Hg] Jessica Alcaraz [facility] 04-15-2023 12:15-0500 Heart rate 80 /min Jessica Alcaraz [facility] 04-15-2023 12:15-0500 Respiratory rate 16 /min Jessica Alcaraz [facility] 04-15-2023 12:15-0500 Systolic blood pressure 168 mm[Hg] Jessica Cartwrightmarisol [facility] 05-17-2022 08:00-0400 Blood Pressure Location Yusra Denis [facility] 05-17-2022 08:00-0400 Body temperature 97.16 [degF] Yusra Denis [facility] 05-17-2022 08:00-0400 Diastolic blood pressure 81 mm[Hg] Yusra Denis [facility] 05-17-2022 08:00-0400 Heart rate 71 /min Yusra Denis [facility] 05-17-2022 08:00-0400 Respiratory rate 16 /min Yusra Denis [facility] 05-17-2022 08:00-0400 SaO2% (BldA) [Mass fraction] 96 % Yusra Denis [facility] 05-17-2022 08:00-0400 Systolic blood pressure 131 mm[Hg] Yusra Denis [facility] 12-28-2021 13:04-0500 Blood Pressure Location Dougie Eden [facility] 12-28-2021 13:04-0500 Body temperature 98.06 [degF] Dougie Harmon [facility] 12-28-2021 13:04-0500 BP/Pulse Patient Position Dougie Harmon [facility] 12-28-2021 13:04-0500 Diastolic blood pressure 89 mm[Hg] Dougieanna Harmon [facility] 12-28-2021 13:04-0500 Heart rate 89 /min [facility] 12-28-2021 13:04-0500 Mean blood pressure 104 mm[Hg] Dougie Harmon [facility] 12-28-2021 13:04-0500 Respiratory rate 16 /min Dougie Harmon [facility] 12-28-2021 13:04-0500 SaO2% (BldA) [Mass fraction] 96 % Dougie Harmon [facility] 12-28-2021 13:04-0500 Systolic blood pressure 135 mm[Hg] Dougie Harmon [facility] 11-16-2021 08:26-0400 Diastolic blood pressure 80 mm[Hg] Yusra Cira [facility] 11-16-2021 08:26-0400 Mean blood pressure 99 mm[Hg] Yusra Cira [facility] 11-16-2021 08:26-0400 Systolic blood pressure 136 mm[Hg] Yusra Cira [facility] 11-16-2021 08:19-0400 Blood Pressure Location Yusra Cira [facility] 11-16-2021 08:19-0400 Body temperature 97.7 [degF] Yusra Cira [facility] 11-16-2021 08:19-0400 Diastolic blood pressure 82 mm[Hg] Yusra Cira [facility] 11-16-2021 08:19-0400 Heart rate 72 /min Yusra Cira [facility] 11-16-2021 08:19-0400 Systolic blood pressure 142 mm[Hg] Yusra Cira [facility] 10-05-2021 10:35-0400 Diastolic blood pressure 93 mm[Hg] Thais HINOJOSA [facility] 10-05-2021 10:35-0400 Heart rate 64 /min Plascencia SALAM [facility] 10-05-2021 10:35-0400 Respiratory rate 12 /min Plascencia SALAM [facility] 10-05-2021 10:35-0400 SaO2% (BldA) [Mass fraction] 96 % Plascencia SALAM [facility] 10-05-2021 10:35-0400 Systolic blood pressure 138 mm[Hg] Plascencia SALAM [facility] 10-05-2021 10:25-0400 Diastolic blood pressure 86 mm[Hg] Plascencia SALAM [facility] 10-05-2021 10:25-0400 Heart rate 62 /min Plascencia SALAM [facility] 10-05-2021 10:25-0400 Respiratory rate 16 /min Plascencia SALAM [facility] 10-05-2021 10:25-0400 SaO2% (BldA) [Mass fraction] 96 % Plascencia SALAM [facility] 10-05-2021 10:25-0400 Systolic blood pressure 145 mm[Hg] Plascencia SALAM [facility] 10-05-2021 10:11-0400 Diastolic blood pressure 96 mm[Hg] Plascencia SALAM [facility] 10-05-2021 10:11-0400 Heart rate 74 /min Plascencia SALAM [facility] 10-05-2021 10:11-0400 Respiratory rate 19 /min Plascencia SALAM [facility] 10-05-2021 10:11-0400 SaO2% (BldA) [Mass fraction] 96 % Plascencia SALAM [facility] 10-05-2021 10:11-0400 Systolic blood pressure 126 mm[Hg] Plascencia SALAM [facility] 10-05-2021 09:47-0400 Blood Pressure Location Plascencia SALAM [facility] 10-05-2021 09:47-0400 Body temperature 97.34 [degF] Plascencia SALAM [facility] 10-05-2021 09:40-0400 Respiratory rate 14 /min Plascencia SALAM [facility] 10-05-2021 09:35-0400 Respiratory rate 15 /min Plascencia SALAM [facility] 10-05-2021 09:30-0400 Respiratory rate 16 /min Plascencia SALAM [facility] 10-05-2021 08:58-0400 Blood Pressure Location Plascencia SALAM [facility] 10-05-2021 08:58-0400 Body temperature 97.88 [degF] Plascencia SALAM [facility] 07-19-2021 08:51-0400 Blood Pressure Location Yusra Henrymetz [facility] 07-19-2021 08:51-0400 Body temperature 97.34 [degF] Yusra Cira [facility] 07-19-2021 08:51-0400 Diastolic blood pressure 85 mm[Hg] Yusra Cira [facility] 07-19-2021 08:51-0400 Heart rate 74 /min Yusra Denis [facility] 07-19-2021 08:51-0400 SaO2% (BldA) [Mass fraction] 98 % Yusra Denis [facility] 07-19-2021 08:51-0400 Systolic blood pressure 129 mm[Hg] Yusra Denis [facility] Encounters Encounter Date Encounter Type Care Provider Facility Start: 08-11-2024 End: 08-11-2024 ambulatory [facility]I [facility] Start: 07-22-2024 End: 07-22-2024 ambulatory Dougieanna Harmon Facility:[facility] Start: 07-22-2024 End: 07-22-2024 Patient encounter procedure Dougie Harmon [facility] Start: 07-21-2024 End: 07-21-2024 ambulatory Dougie Harmon Facility:[facility] Start: 07-21-2024 End: 07-21-2024 [facility] [facility] Start[facility]-17-2024 ambulatory [facility] Start: 07-17-2024 ambulatory [facility] Start: 06-23-2024 ambulatory [facility] Start: 05-12-2024 ambulatory [facility] Start: 05-12-2024 Encounter for preprocedural cardiovascular examination [facility] Start: 04-09-2024 ambulatory [facility] Start: 03-30-2024 ambulatory [facility] Start: 03-09-2024 ambulatory [facility] Start: 02-20-2024 ambulatory [facility] Start: 02-18-2024 ambulatory [facility] Start: 01-21-2024 ambulatory [facility] Start: 01-06-2024 ambulatory [facility] Start: 12-26-2023 ambulatory [facility] Start: 12-11-2023 ambulatory [facility] Start: 11-20-2023 ambulatory [facility] Start: 10-30-2023 ambulatory [facility] Start: 10-29-2023 ambulatory [facility] Start: 09-16-2023 ambulatory [facility] Start: 09-12-2023 End: 09-12-2023 ambulatory MARQUIS ARREOLA Not Available Start: 07-25-2023 End: 07-25-2023 ambulatory Dougie Harmon Facility:[facility] Start: 07-25-2023 End: 07-25-2023 Patient encounter procedure Dougie Harmon [facility] Start: 07-23-2023 ambulatory Dougie Vergara y:[facility] Start: 07-23-2023 End: 07-23-2023 Patient encounter procedure Dougie Harmon [facility] Start: 07-06-2023 End: 07-06-2023 ambulatory Dougie Harmon Facility:[facility] Start: 07-06-2023 End: 07-06-2023 Patient encounter procedure Dougie Harmon [facility] Start: 07-02-2023 End: 07-02-2023 ambulatory ELEAZAR WILLIS Facility:[facility] Start: 07-02-2023 End: 07-02-2023 Patient encounter procedure ELEAZAR WILLIS [facility] Start: 06-27-2023 End: 06-27-2023 ambulatory Dougie Harmon Facility:[facility] Start: 06-27-2023 End: 06-27-2023 Patient encounter procedure Dougie Harmon [facility] Start: 06-25-2023 End: 06-25-2023 ambulatory JESSICA ALCARAZ Facility:[facility] Start: 06-25-2023 End: 06-25-2023 Admission to same day surgery center Nanci Miller APRN.SQL ENGINEER Work Phone: Colorectal Surgery Start: 06-25-2023 End: 06-25-2023 Patient encounter procedure Nanci Miller APRN.SQL ENGINEER Work Phone: Colorectal Surgery Comment on above: Abdominal bloating ( Primary Dx); Alternating constipation and diarrhea; Personal history of rectal cancer; Low anterior resection syndrome Start: 05-03-2023 End: 06-11-2023 Pre-admission assessment CYNTHIA AGUILA [facility] Start: 04-26-2023 Telephone encounter Nanci Miller APRN.SQL ENGINEER Work Phone: Colorectal Surgery Start: 04-23-2023 End: 04-23-2023 ambulatory Jessica Alcaraz Facility:[facility] Start: 04-23-2023 End: 04-23-2023 Patient encounter procedure Jessica Alcaraz [facility] Start: 04-19-2023 End: 04-19-2023 ambulatory Jessica Alcaraz Facility:[facility] Start: 04-19-2023 End: 04-19-2023 Patient encounter procedure Jessica Alcaraz [facility] Start: 04-15-2023 End: 04-15-2023 ambulatory Jessica Alcaraz Facility:[facility] Start: 04-15-2023 End: 04-15-2023 Patient encounter procedure Jessica Alcaraz [facility] Start: 06-15-2022 End: 06-15-2022 Patient encounter procedure Yusra A Cira [facility] Start: 05-17-2022 End: 05-17-2022 Patient encounter procedure Yusra A Cira [facility] Start: 02-28-2022 End: 12-31-2022 Recurring Aggie Leah [facility] Start: 12-28-2021 End: 12-28-2021 Patient encounter procedure Dougie Harmon [facility] Start: 12-27-2021 End: 12-27-2021 Patient encounter procedure Dougie Harmon [facility] Start: 12-22-[address] SHAD DYSON Facility :[facility] Start: 12-14-2021 End: 12-14-[address] SHAD DYSON Facility:[facility] Start: 11-16-2021 End: 11-16-2021 Patient encounter procedure Yusra Denis [facility] Start: 10-05-2021 End: 10-05-2021 Patient encounter procedure Thais HINOJOSA [facility] Start: 07-19-2021 End: 07-19-2021 Patient encounter procedure Yusra Piyush Cira [facility] Start: 06-23-2021 End: 06-23-2021 Patient encounter procedure Dougie Harmon [facility] Start: 06-14-2021 End: 06-14-2021 Patient encounter procedure Dougie Harmon [facility] Start: 02-14-2021 End: 02-26-2022 Recurring Aggie Lynn [facility] Start: 01-20-2018 Patient encounter procedure MARIO ALBERTO [facility] Procedures Date Procedure Procedure Detail Performing Clinician Start: 06-25-2023 ADULT [place] ANORECTAL MANOMETRY Nanci Miller APRN.CNP Work Phone: Start: 10-05-2021 Colonoscopy Thais HINOJOSA Start: 03-02-2017 Colonoscopy Yusra Denis colostomy reversal Dougie rousseau Esophagogastroduoden oscopy gastric outlet reduction Yusra Denis Pacemaker battery (physical object) Dougie Harmon Plan of Treatment Date Care Activity Detail Author Start: 12-06-2023 Creatinine measurement Serum Creatinine [facility] Start: 10-13-2023 Influenza vaccination Influenza Vaccine (Season Ended) [facility] Start: 02-11-2023 Advance Directive Discussion Advance Directive Discussion [facility] Start: 02-11-2023 Behavioral Health Screening Behavioral Health Screening [facility] Start: 02-11-2023 Depression Assessment Depression Assessment [facility] Start: 10-12-2022 Covid-19 Vaccine ( season) Covid-19 Vaccine ( season) [facility] Start: 10-12-2022 Covid-19 Vaccine ( season) Covid-19 Vaccine ( season) [facility] Start: 10-12-2022 Influenza vaccination Influenza Vaccine (#1) [facility] Start: 03-12-2022 Shingrix Vaccine (2 of 2) Shingrix Vaccine (2 of 2) [facility] Start: 08-19-2021 Creatinine measurement Serum Creatinine [facility] Start: 09-15-2020 Screening for malignant neoplasm of colon [facility] Start: 06-28-2020 Urine microalbumin profile DTaP,Tdap,Td Vaccine (1 - Tdap) [facility] Start: 12-28-2018 Hemoglobin A1c measurement HbA1C [facility] Start: 01-29-2017 Pneumococcal Vaccine: 65+ (2 of 2 - PCV) Pneumococcal Vaccine: 65+ (2 of 2 - PCV) [facility] Start: 2012 RSV Vaccine (1 - 1-dose 60+ series) RSV Vaccine (1 - 1-dose 60+ series) [facility] Start: 2002 Shingrix Vaccine (1 of 2) Shingrix Vaccine (1 of 2) [facility] Start: 1997 Screening for malignant neoplasm of colon [facility] Start: 11-05-1971 Urine microalbumin profile DTaP,Tdap,Td Vaccine (1 - Tdap) [facility] Start: 1970 Annual PCP Team Chronic Disease Visit Annual PCP Team Chronic Disease Visit [facility] Start: 1970 BP Controlled (<130/80) BP Controlled (<130/80) [facility] Start: 1970 Hepatitis B surface antibody level LDL Cholesterol [facility] Start: 1970 Hepatitis C screening Hepatitis C Screening [facility] Start: 1962 Diabetic foot examination Diabetic Foot Exam [facility] Start: 1962 Glaucoma screening Dilated Retinal Exam [facility] Start: 1962 Hepatitis B screening Urine Albumin:Creatinine Ratio [facility] ANORECTAL MANOMETRY [facility] ANORECTAL MANOMETRY Endoscopy Routine Abdominal bloating Incontinence of feces with fecal urgency 06/25/2023 [facility] Work Phone: Immunizations Immunization Date Immunization Notes Care Provider Fa cility 01-15-2022 influenza virus vaccine, unspecified formulation Yusra Denis [facility] 01-15-2022 zoster vaccine recombinant Yusra Denis [facility] 01-11-2021 influenza, unspecifi ed formulation Yusra Denis [facility] 07-22-2020 SARS-CoV-2 (COVID-19 ) mRNA BNT-162b2 vax Yusra Denis [facility] Comment on above: Result Comment: 2021: [id number] 06-30-2020 SARS-CoV-2 (COVID-19 ) mRNA BNT-162b2 vax Yusra Denis [facility] Comment on above: Result Comment: 2021: [id number] 06-27-2020 tetanus and diphther ia toxoids, adsorbed, preservative free, for adult use (2 Lf of tetanus toxoid and 2 Lf of diphtheria toxoid) Yusra Denis [facility] 11-14-2019 influenza virus vaccine, unspecified formulation Yusra Denis [facility] 10-31-2018 influenza virus vaccine, unspecified formulation Yusra Denis [facility] 10-31-2018 pneumococcal polysaccharide vaccine, 23 valent Yusra Denis [facility] 10-22-2017 influenza virus vaccine, unspecified formulation Yusra Denis [facility] 10-22-2017 pneumococcal conjuga te vaccine, 13 valent Yusramanuel Denis [facility] 12-07-2016 influenza, unspecifi ed formulation Yusramanuel Denis [facility] 01-30-2016 influenza, injectabl e, quadrivalent, preservative free Nanci Miller APRN.SQL ENGINEER Work Phone: [facility] 01-30-2016 pneumococcal polysaccharide vaccine, 23 valent Nanci Miller APRN.SQL ENGINEER Work Phone: [facility] 01-30-2016 influenza virus vaccine, unspecified formulation Nanci Miller APRN.SQL ENGINEER Work Phone: [facility] NEGATED: Highlighted row has not occurred!11-16-2021 influenza virus vaccine, unspecified formulation Yusra Denis [facility] Payers Date Payer Category Payer Private Health Insurance [id number] 2019 Unknown MMO MMO MEDICARE SUPPLEMENT [id number] 2019-Present [phone] [address] [place] [address] Indemnity [id number] 2017 Medicare [id number] 1959 Medicare [id number] 1959 Self-pay 1959 Unknown [id number] 1952 Unknown [id number]. 593 1952 Unknown [id number]. 593 1952 Unknown [id number] [id number]. 727 1952 Unknown [id number] [id number]. 727 1952 Unknown [id number] [id number]. 727 1952 Unknown [id number] [id number]. 727 1952 Unknown [id number] [id number]. 727 1952 Unknown [id number] [id number]. 727 1952 Unknown [id number] [id number]. 727 1952 Unknown [id number] [id number]. 727 1952 Unknown [id number] [id number]. 1259 1952 Unknown [id number] [id number]. 727 1952 Unknown [id number]. 727 Social History Date Type Detail Facility Tobacco Never smoker [facility] Comment on above: denies current use Start: 01-20-2020 End: 09-05-2020 Sex Assigned At Male [facility] Start: 07-19-2021 End: 07-22-2024 Tobacco smoking status Never smoked tobacco (finding) [facility] Comment on above: denies current use Tobacco smoking status [facility] Start: 06-27-2015 Tobacco use and exposure Smoke less tobacco non-user [facility] Start: 09-05-2020 End: 06-25-2023 Alcohol intake Current non-drinker of alcohol (finding) [facility] Start: 01-20-2020 End: 09-05-2020 History of Social function [facility] Start: 1950 Sex Assigned At Not on file [facility] Sexual Orientation [facility] Start: 07-06-2009 Sex Male (finding) [facility] Medical Equipment Procedure Code Equipment Code Equipment Origin al Text Equipment Identifier Dates Mesh Prolene Squ are Flat [id number] Surgical Knit Nonabsorbable Nonreactive - [id number] Start: 08-12-2020 Functional Status Date Assessment Result Facility 04-15-2023 Functional Status N/A [facility] 05-17-2022 Functional Status N/A [facility] 11-16-2021 Functional Status N/A [facility] 10-05-2021 Functional Status N/A [facility] Clinical Notes 08-12-2020 to 08-11-2024 Nanci Miller APRN.[facility] - 06/25/2023 11:43 AM EDTPatient InstructionsNanci Miller APRN.[facility] - 06/25/2023 11:06 AM EDTTelephone Encounter - Teresa Moore - 04/26/2023 1:09 PM EDT Note Date & Type Note Facility 08-11-2024 Note Patient is here toda y for 1 year follow up. Patient states he is seeing a gastrologist at [facility] due to stomach bloating. Patient states he [...] exertion and leg swelling (bilateral leg pain). [facility] 08-11-2024 Note Cardiovascular Medic [facility] SUBJECTIVE Chief Complaint Patient presents with Congestive Heart Failure Coronary Artery Disease Hypertension Shad Rodriguez is a 73 y.o. male here for follow-up. HPI PMHx: HFrEF s/p dual chamber ICD, NSVT, CAD, HTN, hx PE/DVT, factor V leiden, HLD, DM type II, CKD 08/11/2024 Patient is here today for 1 year follow up. Patient states he is seeing a gastrologist at [facility] due to stomach bloating. Patient states he [...] stable. He recently obtained a home in [place]. He plans to travel to this home in the winter. [place] will be noted as his permanent residence. He noted he was having diarrhea in [place]. Now he is having constipation issues. At [...] at that time was initially evaluated in [facility] for nonsustained [place] cardiac cath at [...] well. He is hoping to travel to [place] in a couple weeks. He tested positive [...] (CMS/HCC) Acid reflux Atherosclerotic heart disease of [place] coronary artery without angina pectoris Bloating Cardiomyopathy [...] tobacco: Never Subs (more content not included)... [facility] 08-01-2024 Note Oncology Progress No te [...] cancer. He was monitored by colorectal at [facility] as well as our local Dr. Alcaraz. EGD: 10/05/21 Colonoscopy: 10/05/21 Followup at [facility] rectal team showed normal rectal manometry. He has been trying their recommended fiber. they diagnose with low anterior resection syndrome. 07/22/24 he has had increasing ascites. He admits he needs to get a paracentesis soon. He is getting his winter home ready in [place]. He also goes to [place] for a month in the winter. he [...] diagnosed by his colorectal surgery team at [facility]. emphasized fiber use. ct imaging in [...] Name Event Result (more content not included)... [facility] 02-28-2024 Note [facility] 08-08-2023 Note Progress Note - Nutr ition Pt scored a 5 on MSGA triggering need for an assessment. However upon further review of physician notes pt does not have a recurrence of colon cancer at this time. It seems the plan is for him to go to GI at [facility]. [facility] 06-27-2023 Hospital Discharge instructions Follow Up Care 06/27/2023 14:46:38 With:Dougie Harmon DO, ONC Address: [facility] [address] [place] [phone]- [phone] Fax Business (1) When: Unknown Comments:f/u in 6 months.no imaigng.cbc, cmp, cea, iron studies, b12, foalte prior to f/u. [facility] 06-25-2023 Note HNO ID: [id number] Author: NANCI MILLER APRN.SQL ENGINEER Service: ? Author Type: Nurse Practitioner Type: Progress Notes Filed: 06/25/2023 11:47 Note Text: Outside referral for ARM. Scanned into [facility] 06-25-2023 Note HNO ID: [id number] Author: NANCI MILLER APRN.SQL ENGINEER Service: ? Author Type: Nurse Practitioner Type: [...] use: No Phy (more content not included)... [facility] 06-25-2023 History of Present illness Narrative Outside referral for ARM. Scanned into [facility] documented in this encounter [facility] 06-25-2023 Instructions Nanci Miller APRN.CNP - 06/25/2023 [...] provider as planned. documented in this encounter [facility] 06-25-2023 History of Present illness Narrative PELVIC [...] which included preparing to see the patient, wtiz-qf-ivrk patient care, completing clinical documentation, obtaining and/or reviewing separately obtained history, performing a medically appropriate examination, counseling and educating the patient/family/caregiver, ordering medications, tests, or procedures, and communicating results to the patient/family/caregiver. documented in this encounter [facility] 04-26-2023 Miscellaneous Notes Called and LVM regarding referral for Manometry by Kei Franco. documented in this encounter [facility] 08-21-2022 Evaluation + Plan note Extrac [...] stroke: no 4. Serious co-morbid conditions (recent RI, anemia with Hct <30%, CRI with SCr [...] PT 03/06/22 * Vitamin B12 Level 06/27/22 [facility]05-17-2023 Hospital Discharge instructions Follow Up Care 06/27/2022 14:31:43 With:Dougie Harmon DO ONC Address: [facility] [address] [place] [address]. [place] [phone]- [phone] Fax Business (1) When: Unknown Comments:ct a/p with contrast soon.f/u aftercbc, cmp, cea, iron studies, b12, foalte, lipase prior to f/u. 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 Follow these instructions at home: Take popl-hts-fjqkrwn and prescription medicines only as told by [...] 08/27/2017 Document Revised: 01/10/2018 Document Reviewed: 10/15/2017 [employer] Patient Education 2020 [employer]. Follow Up Care 11/16/2021 08:43:43 With:Yusra Denis CNP Address: When:1 month [facility] 10-06-2022 Hospital Discharge instructions [...] 10/24/2004 Document Revised: 05/15/2018 Document Reviewed: 05/15/2018 [employer] Patient Education [employer] Follow Up Care 10/10/2021 11:02:12 With:Yusra Denis CNP Address: When:6 months [facility] 08-25-2022 Evaluation + Plan noteExtracted from: Title:CARMEN POSTOP Author:Dangelo Morel DO Date: 10/05/21 Plan Transfer/ Discharge: Patient can be discharged from PACU when criteria met. Condition good. Extracted from: Title:CARMEN PREOP Author:Dangelo Morel DO Date: Plan [place] [employer]esthesi[employer] (ASA) physical status classification: [...] * PT 02/06/22 * PT 03/06/22 [facility]08-25-2022 Hospital Discharge instructions Patient Education [...] Up Care 07/19/2021 09:30:23 With:Thais HINOJOSA Address: [facility] [address] [place] [address] Business (1) When: Unknown Comments:OFFICE WILL CALL DATE AND TIME OF FOLLOW-UP APPT. [facility]06-08-2022 Hospital Discharge instructions Patient Education [...] Follow these instructions at home: Medicines Take hdvt-oin-bevpbut and prescription medicines only as told by your health care provider. If you were prescribed an antibiotic medicine, take it as told by your health care provider. Do notstop taking the antibiotic even if you start to feel better. Eating and drinking Follow any diet changes as told by your health care provider. Work with a diet and academic guidance specialist (dietitian) to create an eating plan [...] 01/25/2001 Document Revised: 06/24/2019 Document Reviewed: 06/24/2019 [employer] Patient Education 2020 [employer]. Follow Up Care 07/11/2021 11:18:24 With:Yusra Denis CNP Address: When:1 month [facility] 05-16-2022 Hospital Discharge instructions Follow Up Care 06/26/2021 10:32:10 With:Dougie Harmon Address: [facility] [address] [place] [phone] Fax Business (1) When: Unknown Comments:cbc, cmp, cea in 6mofollow-up in 6mo [facility]03-22-2022 Evaluation + Plan noteExtracted from: [...] stroke: no 4. Serious co-morbid conditions (recent RI, anemia with Hct <30%, CRI with SCr > 1.5, DM): yes hx of cancer Score = 2//4 Risk (low = 0, mod = 1-2, high = 3-4) Future Appointments Appointment Date:02/27/2022 07:30:00 AM Scheduled [facility] Type:Anticoagulation Remote 15 () Appointment Date:05/17/2022 08:00:00 AM Scheduled Provider:Yusra Denis CNP Location:[facility] Appointment Type:BADH Follow Up Appointment Date:06/27/2022 01:30:00 PM Scheduled Provider:Dougie Harmon DO [facility] Type:ONC Office Visit 15 () Future [...] * PT 02/06/22 * PT 03/06/22 [facility]07-02-2021 History of Past illness Narrative* [...] of this encounter (statuses as of 04/26/2023) [facility]ments Appointment [...] * PT 02/06/22 * PT [facility]06/22 [facility] Future App[facility]ments Appointment Date:06/26/2021 09:30:00 AM Scheduled Provider:Purnima Borden [facility] Type:ONC Office Visit 15 (FT) Future Scheduled Tests Laboratory* PT 03/07/21 * PT 04/04/21 * PT 05/02/21 * PT 05/30/21 * PT 06/27/21 * PT 07/25/21 * PT 08/22/21 * PT 09/19/21 * PT 10/17/21 * PT 11/14/21 * PT 12/12/21 * PT 01/09/22 * PT 02/06/22 * PT 03/06/22 [facility] Future Appointments Appointment Date:08/08/2021 08:30:00 AM Scheduled Provider: [facility] Type:Anticoagulation Follow Up 15 (FT) Appointment Date:08/28/2021 12:50:00 PM Scheduled Provider: Location:[facility] Appointment Type:Surgery FT Appointment Date:12/28/2021 01:00:00 PM Scheduled Provider:Dougie Harmon DO [facility] Type:ONC Office Visit 15 (FT) [...] * PT 02/06/22 * PT 03/06/22 [facility] Evaluation + Plan note Future Appointments Appointment Date:11/24/2021 09:30:00 AM Scheduled Provider: [facility] Type:Anticoagulation Follow Up 15 (FT) Appointment Date:12/28/2021 01:00:00 PM Scheduled Provider:Dougie Harmon DO Location:.ONCOLOGY Appointment Type:ONC Office Visit 15 (FT) Appointment Date:05/17/2022 08:00:00 AM Scheduled Provider:Yusra Denis CNP Location:[facility] Appointment Type:BAD Follow [...] * PT 02/06/22 * PT 03/06/22 [facility] Evaluation + Plan note Future Appointments Appointment Date:12/28/2021 01:00:00 PM Scheduled Provider:Dougie Harmon DO [facility] Type:ONC Office Visit 15 (FT) Appointment Date:01/09/2022 09:00:00 AM Scheduled Provider: [facility] Type:Anticoagulation Follow Up 15 (FT) Appointment Date:05/17/2022 08:00:00 AM Scheduled Provider:Yusra Denis CNP Location:[facility] Appointment Type:[facility] Follow Up Future Scheduled Tests Laboratory* PT 03/07/21 * PT 04/04/21 * PT 05/02/21 * PT 05/30/21 * PT 06/27/21 * PT 07/25/21 * PT 08/22/21 * PT 09/19/21 * PT 10/17/21 * PT 11/14/21 * PT 12/12/21 * PT 01/09/22 * PT 02/06/22 * PT 03/06/22 [facility]ments Appointment Date:01/09/2022 09:00:00 AM Scheduled Provider: [facility] Type:Anticoagulation Follow Up 15 (FT) Appointment Date:05/17/2022 08:00:00 AM Scheduled Provider:Yusra Denis CNP Location:[facility] Appointment Type:BAD Follow Up Appointment Date:06/27/2022 01:30:00 PM Scheduled Provider:Dougie Harmon DO [facility] Type:ONC Office Visit 15 (FT) Future Scheduled Tests Laboratory* PT 03/07/21 * PT 04/04/21 * PT 05/02/21 * PT 05/30/21 * PT 06/27/21 * PT 07/25/21 * PT 08/22/21 * PT 09/19/21 * PT 10/17/21 * PT 11/14/21 * PT 12/12/21 * PT 01/09/22 * PT 02/06/22 * PT 03/06/22 [facility] Future Appointments Appointment Date:06/01/2022 09:30:00 AM Scheduled Provider: [facility] Type:Anticoagulation Follow Up 15 (FT) Appointment Date:06/15/2022 08:00:00 AM Scheduled Provider:Yusra Denis CNP Location:[facility] Appointment Type:[facility] Follow Up Appointment Date:06/27/2022 02:00:00 PM Scheduled Provider:Dougie Harmon DO [facility] App[facility] Type:ONC Office Visit 15 (FT) [...] 03/06/22 * Vitamin B12 Level 05/17/22 [facility] Evaluation + Plan note Future Appointments Appointment Date:06/27/2022 08:20:00 AM Scheduled Provider:Yusra Denis CNP Location:[facility] Appointment Type:BADH Follow Up Appointment Date:06/27/2022 02:00:00 PM Scheduled Provider:Dougie Harmon DO Location:.ONCOLOGY Appointment Type:ONC Office Visit 15 (FT) Appointment Date:07/10/2022 09:30:00 AM Scheduled Provider: [facility] Type:Anticoagulation Follow Up 15 (FT) [...] 03/06/22 * Vitamin B12 Level 05/17/22 [facility] Evaluation + Plan note Future Appointments Appointment Date:06/27/2023 02:00:00 PM Scheduled Provider:Dougie Harmon DO Location:.ONCOLOGY Appointment Type:ONC Office Visit 15 (FT) Future Scheduled Tests Laboratory* PT 04/30/22 * PT 05/31/22 * PT 06/30/22 * Vitamin B12 Level 06/27/22 Radiology* CT Abdomen/Pelvis w/ + w/o Contrast 04/15/23 [facility] Evaluation + Plan note Future Appointments Appointment Date:04/23/2023 12:00:00 PM Scheduled Provider: Location:.[facility] Appointment Type:CT Abdomen/Pelvis Combo (FT) Appointment Date:06/27/2023 02:00:00 PM Scheduled Provider:Dougie Harmon DO Location:.ONCOLOGY Appointment Type:ONC Office Visit 15 (FT) Future Scheduled Tests Laboratory* PT 04/30/22 * PT 05/31/22 * PT 06/30/22 * Vitamin B12 Level 06/27/22 Radiology* CT Abdomen/Pelvis w/ + w/o Contrast 04/23/23 [facility] Future Appointments Appointment Date:06/27/2023 02:00:00 PM Scheduled Provider:Dougie Harmon DO Location:.ONCOLOGY Appointment Type:ONC Office Visit 15 (FT) Future Scheduled Tests Laboratory* PT 04/30/22 * PT 05/31/22 * PT 06/30/22 * Vitamin B12 Level 06/27/22 [facility] Future Appointments Appointment Date:06/27/2023 02:00:00 PM Scheduled Provider:Dougie Harmon DO [facility] Type:ONC Office Visit 15 (FT) Future Scheduled Tests Laboratory* PT 06/30/22 * Vitamin B12 Level 06/27/22 [facility] Future Appointments [...] 07/25/23 Radiology* CT Abdomen/Pelvis w/ Contrast 06/28/23 [facility] Future Appointments [...] 07/25/23 Radiology* CT Abdomen/Pelvis w/ Contrast 07/06/23 [facility] Future Appointments [...] Transferrin 07/25/23 * Vitamin B12 Level 07/25/23 [facility] Future Appointments Appointment Date:07/25/2023 11:30:00 AM Scheduled Provider:Dougie Harmon DO Location:.ONCOLOGY Appointment Type:ONC Office Visit 30 (FT) [facility] Future Scheduled Tests Laboratory* CBC w/ Auto Diff 06/02/24 * CEA 06/02/24 * Comprehensive Metabolic Panel 06/02/24 * Ferritin 06/02/24 * Folate Level 06/02/24 * Iron Level 06/02/24 * Iron Percent Saturation 06/02/24 * Transferrin 06/02/24 * Vitamin B12 Level 06/02/24 [facility] Future Appointments Appointment Date:07/22/2024 03:20:00 PM Scheduled Provider:Dougie Harmon DO Location:.ONCOLOGY Appointment Type:ONC Office Visit 20 (FT) [facility] Evaluation + Plan note Future Appointments Appointment Date:08/12/2024 02:20:00 PM Scheduled Provider:Dougie Harmon DO Location:FT.ONCOLOGY Appointment Type:ONC Video Visit 15 (FT) Future Scheduled Tests Laboratory* PT & PTT 07/23/24 * Alpha Fetoprotein Tumor Marker 07/23/24 * CBC w/ Auto Diff 07/23/24 * Comprehensive Metabolic Panel 07/23/24 Radiology* CT Abdomen/Pelvis w/ Contrast 07/23/24 * CT Chest w/ Contrast 07/23/24 [facility] note* Diagnosis Abdominal bloating- Primary Flatulence, eructation, and gas pain Incontinence of feces with fecal urgency documented in this encounter [facility] note* Diagnosis Abdominal bloating- Primary Flatulence, eructation, and gas pain Alternating constipation and diarrhea Other symptoms involving digestive system Personal history of rectal cancer Personal history of malignant neoplasm of rectum, rectosigmoid junction, and anus Low anterior resection syndrome documented in this encounter [facility] course Narrative No data available for this section [facility] No data available for this section [facility] No data available for this section [facility] (narrative)* Outpatient Procedure (Routine) - Pending Review Specialty Diagnoses / Procedures Referred By Mark rodríguez Referred To Contact [facility] Diagnoses Abdominal bloating Incontinence of feces with fecal urgency Procedures [facility] ANORECTAL MANOMETRY ANORECTAL MANOMETRY Nanci Miller APRN.CNP [address] [place] [address] [facility] [place] [facility] [address] Referral ID Status Reason Start Date Expiration Date Visits Requested Visits Authorized [id number] Pending Review Auto-Generat ed Referral 06/25/2023 06/24/2024 1 1 [facility] Summary Purpose Family History No Family History [...] FoundDocuments on File Type Date Recorded 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 Advance Directive(s) 06/27/2018 11:11 AM Documents on File Type Date Recorded 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 Advance Directive(s) 06/27/2018 11:11 AM Hospital Course Note [facility] [place] [address] Discharge Summary Signed:[id number] Name: SHAD RODRIGUEZ MRUN: [id number] : 1950 Loc: 3S Age / Sex: 68/ M Adm Status: ADM Leonor Adm Date:06/03/19 Room/Bed: [facility] Date of Service - Date of Service Date: 06/05/19 - Time Spent on Discharge Minutes spent on discharge:: 45 - Hospital Summary Hospital Summary:: This is a pleasant 68-year-old male with a history of diabetes mellitus and colon cancer was brought into the emergency room by the older worker specialist for further evaluation and management of a syncopal event. Patient was in his usual state of health until this afternoon. 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 He was taking the exit to get to the Highway around 4:30 PM after exchanging the trailer with his colleague. He felt like his truck is spinning around. The next thing he knew was older worker specialist were knocking on the door. He was [...] section and content) DATE CREATED AUTHOR 01/23/2018 [facility] DATE CREATED AUTHOR AUTHOR'S ORGANIZ ATION 04/12/2020 [facility] DATE CREATED AUTHOR AUTHOR'S ORGANIZ ATION 12/23/2021 [facility] DATE CREATED AUTHOR AUTHOR'S ORGANIZ ATION 06/27/2023 [facility] DATE CREATED AUTHOR AUTHOR'S ORGANIZ ATION 07/05/2023 [facility] DATE CREATED AUTHOR AUTHOR'S ORGANIZ ATION 07/24/2023 [facility] DATE CREATED AUTHOR AUTHOR'S ORGANIZ ATION 08/10/2023 [facility] DATE CREATED AUTHOR AUTHOR'S ORGANIZ ATION 09/15/2023 [facility] dical [facility] DATE CREATED AUTHOR AUTHOR'S ORGANIZ ATION 07/23/2024 [facility] DATE CREATED AUTHOR AUTHOR'S ORGANIZ ATION 08/01/2024 [facility] DATE CREATED AUTHOR AUTHOR'S ORGANIZ ATION [facility]20[facility] DATE CREATED AUTHOR AUTHOR'S ORGANIZ ATION 08/12/2024 [facility] Care Team (unrecognized sect ion and content) Machine Carton Marker Relationship Specialty Start Date End Date Cynthia Aguila, SQL ENGINEER [address] [place] [address] PCP - General 08/05/18 Shad Dyson MD [address] [place] [address] Referring Family Medicine 05/04/20 Machine Carton Marker Relationship Specialty Start Date End Date Cynthia Aguila CNP [address] [place] [address] PCP - General 08/05/18 Shad Dyson MD [address] [place] [address] Referring Family Medicine 05/04/20 Machine Carton Marker Relationship Specialty Start Date End Date Cynthia Aguila CNP [address] [place] [address] PCP - General 08/05/18 Shad Dyson MD [address] [place] [address] Referring Family Medicine 05/04/20 Source Comments (unrecognize d section and content) In the event this informatio n is protected by the Federal Confidentiality of Alcohol and Drug Abuse Patient Records regulations: The Federal rules restrict any use of the information to criminally investigate or prosecute any alcohol or drug abuse patient.[facility] the event this information is protected by the Federal Confidentiality of Alcohol and Drug Abuse Patient Records regulations: The Federal rules restrict any use of the information to criminally investigate or prosecute any alcohol or drug abuse patient.[facility] the event this information is protected by the Federal Confidentiality of Alcohol and Drug Abuse Patient Records regulations: The Federal rules restrict any use of the information to criminally investigate or prosecute any alcohol or drug abuse patient.[facility] FOR RECORDS PERTAINING TO PATIENTS WHO [...] BE BASED ON THE PRIMARY CLINICAL RECORDS. [facility] [employer] [facility]. provides no warranty or guarantee of the accuracy or completeness of information in this document.
[2024-08-13 07:29] LABS: Hematocrit 52.7 % (42.0-54.0); Hemoglobin 17.3 g/dL (14.0-18.0); Immature Granulocytes Abs Auto 0.04 10^3/uL (0.00-0.03); Immature Granulocytes Pct Auto 0.6 % (0.0-0.5); Lymphocytes Absolute Auto 0.8 10^3/uL (1.2-3.8); Mean Corpuscular HGB Conc 32.8 g/dL (29.9-35.2); Mean Corpuscular Hemoglobin 30.6 pg (25.9-34.0); Mean Corpuscular Volume 93.1 fL (80.0-94.0); Platelet Count 192 10^3/uL (150-450); Red Blood Count 5.66 10^6/uL (4.70-6.10); White Blood Count 6.6 10^3/uL (4.0-11.0)
[2024-08-13 07:50] LABS: Alanine Aminotransferase 50 U/L (16-63); Albumin Globulin Ratio 1.2; Albumin Level 3.6 g/dL (3.4-5.0); Alkaline Phosphatase 103 U/L (46-116); Anion Gap 14.0; Aspartate Amino Transferase 28 U/L (15-37); Blood Urea Nitrogen 27.0 mg/dL (7.0-18.0); Calcium 9.0 mg/dL (8.5-10.1); Carbon Dioxide 27.1 mmol/L (21.0-32.0); Chloride 106 mmol/L (98-107); Cholesterol 146 mg/dL (<=200); Estimated GFR (African America 53 (>=60 mL/min/1.73m^2); Estimated GFR (Non-African Ame 44 (>=60 mL/min/1.73m^2); Globulin 3.1 g/dL; Glucose 160 mg/dL (74-106); HDL Cholesterol 58 mg/dL (40-60); Magnesium 2.2 mg/dL (1.8-2.4); Potassium 4.1 mmol/L (3.5-5.1); Sodium 143 mmol/L (136-145); TSH W/ REFLEX FT4 1.747 uIU/mL (0.358-3.740); Total Protein 6.7 g/dL (6.4-8.2); Triglycerides 113 mg/dL (<=150); VLDL CHOLESTEROL 22.6 mg/dL
== END 2024-08-13 06:45 | disposition home or self-care (01) ==
LOC: LAB 06:44
PROVIDERS: PCP Nurse Practitioner Family; Visit Provider Nurse Practitioner Family
DX: Z51.81 Encounter for therapeutic drug level monitoring (principal); Z79.899 Other long term (current) drug therapy; I50.22 Chronic systolic (congestive) heart failure; E78.2 Mixed hyperlipidemia; Z12.5 Encounter for screening for malignant neoplasm of prostate; E78.5 Hyperlipidemia, unspecified; R53.83 Other fatigue; R73.9 Hyperglycemia, unspecified; I11.0 Hypertensive heart disease with heart failure
CPT/HCPCS: 36415; 80053; 80061; 83036; 83735; 84436; 84443; 84481; 85025; G0103

== ENCOUNTER 2024-09-08 08:01 | Outpatient (OUT) | payer MEDICARE, OTHER, SELFPAY ==
--- NOTE | 2024-09-08 08:09 | CA_ITS ---
Patient Name: LAKIA RODRIGUEZ MR#: [id number] : 1950 Exam Date: 09/08/2024 Ordering Doctor: NORI PRATT CNP ECHOCARDIOGRAM REPORT PROCEDURE: CA ECHO DOPPLER COMPLETE INDICATIONS: Chronic systolic heart failure COMPARISON: None. DESCRIPTION: COMPLETE ECHOCARDIOGRAM Real-time transthoracic echocardiography with 2D, M-mode, spectral and color flow Doppler performed. QUALITY: Technical quality was good. LEFT VENTRICLE: Normal chamber size. Borderline left ventricular hypertrophy. Global left ventricular systolic function is mildly to moderately decreased. There is global hypokinesis. LV EF: Mildly to moderately reduced (40%) DIASTOLIC: ATRIAL SEPTUM: Technically difficult, not well visualized. LEFT ATRIUM: Normal chamber size. RIGHT ATRIUM: Mild dilatation. RIGHT VENTRICLE: Normal chamber size. Mildly reduced right ventricular systolic function. Pacer wire present. TRICUSPID VALVE: Normal mobility and thickness. No stenosis with trivial regurgitation. Unable to assess right-sided pressures due to lack of measurable tricuspid regurgitation. MITRAL VALVE: Normal mobility and thickness. No evidence of mitral valve stenosis. There is no mitral annular calcification. Trivial mitral regurgitation. AORTIC VALVE: Normal trileaflet appearance. No visible sclerosis. Normal leaflet mobility. No evidence of aortic valve stenosis. No aortic regurgitation. AORTIC ROOT: Normal diameter and appearance, measuring 3.4 cm. The ascending aorta is normal in size measuring 3.3 cm. PULMONIC VALVE: Normal thickness and mobility. No stenosis. Trivial regurgitation. PERICARDIUM: No evidence of pericardial effusion. IVC: Collapses with inspiration. Normal size. PLEURA: CONCLUSION: 1. The left ventricle is normal in size and exhibits mildly to moderately reduced systolic function. There is diffuse global hypokinesis. Estimated LVEF is 40%. 2. The right ventricle is normal in size and exhibits mildly reduced systolic function. 3. No significant valvular dysfunction. 4. Unable to assess right-sided pressures due to lack of measurable tricuspid regurgitation. Adult Echocardiography Procedure Report Left Ventricle LVEDD (3.7 - 5.6 cm): 5.05 cm LVESD (2.2 - 4.0 cm): 4.09 cm LVIVS thickness (0.6 - 1.2 cm): 1.12 cm LVPW thickness (0.5 - 1.0 cm): 0.98 cm e': 0.06 m/s E - e': 5.61 LVOT Max Gradient: 3.48 mm[Hg] LVOT Area (cm2): 0.93 m/s Peak Velocity (LVOT): 0.93 m/s Mean Velocity (LVOT): 0.57 m/s LVOT Diameter 2.48 cm Left Ventricular Ejection Fraction: 40 % Left Atrium LA Volume Index (2D A2C): 34.93 ml/m2 Left Atrium Systolic Dimension: 4.58 cm Mitral Valve MV E to A Ratio: 0.66 Mitral Valve A-Wave Peak Velocity: 0.55 m/s Mitral Valve E-Wave Peak Velocity: 0.36 m/s Right Ventricle RV Internal Diastolic Dimension: 3.36 cm Aorta AO Root Diam: 3.45 cm Ascending Ao Diam: 3.30 cm Aortic Valve AoV Area (Peak Ariel): 4.26 cm2, 4.26 cm2 AoV Area (VTI): 4.15 cm2, 4.15 cm2 Peak Velocity(Antegrade Flow): 1.06 m/s Peak Gradient(Antegrade Flow): 4.49 mm[Hg] Mean Velocity(Antegrade Flow): 0.71 m/s Mean Gradient(Antegrade Flow): 2.31 mm[Hg] Velocity Time Integral: 19.89 cm Tricuspid Valve Peak Velocity (Regurgitant Flow): Pulmonic Valve Peak Velocity: 1.07 m/s Peak Gradient: 4.73 mm[Hg], 4.49 mm[Hg] Right Atrium Right Atrium Systolic Pressure: 61.61 ml, 61.61 ml Dictated by: En Ball M.D. on 09/08/2024 at 19:20 Approved by: En Ball M.D. on 09/08/2024 at 19:25
--- OUTSIDE RECORDS SUMMARY | 2024-09-08 08:18 | XMS_ITS | CCD ---
Author Organization [facility]iniSyut Care Team Providers Care Paper Machine Tender Name Role Phone MARIO ALBERTO SARAVIA Unavailable Unavailab Shad May Primary Care Physician Josephine Zambrano Unavailable Unavailable Aggie [place] Unavailable Unavailable KARIS, DR DORMAN Primary Care Unavailable CYNTHIA AGUILA Attending Unavailable CYNTHIA AGUILA Admitting Unavailable DR SHAD DYSON Primary Care Unavailable CYNTHIA AGUILA Attending Unavailable CYNTHIA AGUILA Consulting Unavailable CYNTHIA AGUILA Admitting Unavailable Cynthia Aguila CNP Primary Care Provider [phone] Shad Dyson MD Unavailable Cynthia Aguila CNP Primary Care Provider NANCI MILLER Attending Unavailable CYNTHIA AGUILA S Referring Unavailable CYNTHIA AGUILA Primary Care Unavailable JESSICA ALCARAZ Referring Unavailable CYNTHIA AGUILA Primary Care Unavailable NANCI MILLER Attending Unavailable Adamowicz, Dougie Admitting Unavailable Adamowicz, Dougie Attending Unavailable Adamowicz, Dougie Referring Unavailable Adamowicz, Dougie Admitting Unavailable Adamowicz, Dougie Attending Unavailable ELEAZAR WILLIS Admitting Unavailable ELEAZAR WILLIS Attending Unavailable MARQUIS ARREOLA Attending Unavailable Adamowicz, Dougie Attending Unavailable Adamowicz, Dougie Admitting Unavailable Adamowicz, Dougie Attending Unavailable Adamowicz, Dougie Admitting Unavailable Adamowicz, Dougie Attending Unavailable HAYLEY CLAYTON Referring Unavailable MATILDEHAYLEY Referring Unavailable MATILDEHAYLEY Referring Unavailable MATILDEHAYLEY Miranda Referring Unavailable MATILDEHAYLEY Miranda Referring Unavailable MATILDEHAYLEY Miranda Referring Unavailable MATILDEHAYLEY Miranda Referring Unavailable MATILDEHAYLEY Miranda Referring Unavailable MATILDEHAYLEY Miranda Referring Unavailable MATILDEHAYLEY Miranda Referring Unavailable MATILDEHAYLEY Miranda Referring Unavailable MATILDE, HAYLEY Referring Unavailable MATILDE, HAYLEY Referring Unavailable MATILDE, HAYLEY Referring Unavailable MATILDE, HAYLEY Referring Unavailable NORI TATE Attending Unavailable MATILDE, HAYLEY Referring Unavailable MATILDE, HAYLEY Referring Unavailable MATILDE, HAYLEY Referring Unavailable MATILDE, HAYLEY Referring Unavailable Adamowicz, Dougie Attending Unavailable Adamowicz, Dougie Attending Unavailable Adamowicz, Dougie Admitting Unavailable Adamowicz, Dougie Attending Unavailable Adamowicz, Dougie Admitting Unavailable Adamowicz, Dougie Attending Unavailable Adamowicz, Dougie Admitting Unavailable Adamowicz, Dougie Attending Unavailable Adamowicz, Dougie Referring Unavailable Jessica Alcaraz Attending Unavailable Allergies Allergy Classification Reported Allergen(s) Allergy Type Date of Onset Reaction(s) Facility Penicillins (antibiotic) (1 source) Penicillins; Translations: [penicillins] Drug Allergy [facility] Repository (20 sources) Penicillins; Translations: [PENICILLINS] Propensity to adverse reactions to drug (disorder) 6 Unknown [facility] Repository (20 sources) RAGWEED; Translations: [RAGWEED] Propensity to adverse reactions to drug (disorder) 6 Dyspnea (finding), Shortness of Breath [facility] Repository (1 source) house dust allergenic extract; Translations: [HOUSE DUST] Drug Allergy 3 [facility] Repository Medications Current Medications Medication Drug Class(es) Dates Sig (Normalized) Sig (Original) acetaminophen 500 mg oral tablet (3 sources) Start: 08-19-2020 take 2 tablets by mouth every six hours as needed acetaminophen (TYLENOL) 500 mg tablet Take 2 tablets by mouth every 6 hours as needed for pain. 0 08/19/2020 Active Comment on above: Take 2 tablets by mo [facility] every 6 hours as needed [...] QID for wheezing, 6.7 gram, Refill(s) 0, [facility]/pharmacy #[id number] Start Date: 05/13/18 Status: Ordered Quantity: 6.7 Unit: g Repeat number: 1 Indications: Acute bronchitis, unspecified; Start: 05-13-2018 take 2 puff(s) by in halation four times daily for wheezing albuterol HFA 90 mcg/inh MDI 2 puff(s), Inhalation, QID for wheezing, 6.7 gram, Refill(s) 0, [facility]/pharmacy #[id number] Start Date: 05/13/18 Status: [...] BID, # 60 tab(s), Refills(s) 5, Pharmacy: [facility]/pharmacy #[id number] Start Date: 08/29/18 Status: Ordered Quantity: [...] once daily. bisacodyl 10 mg rectal suppository (12 sources) Stimulant Laxative Start: 04-15-2023 take 10 mg rectal route once daily as needed for constipation bisacodyl 10 mg Supp 10 mg = 1 supp, Rectal, Daily, PRN for constipation, # 12 supp, Refills(s) 0, Pharmacy: [facility]/pharmacy #[id number], 167, cm, 04/15/23 12:19:00 [...] needed (GERD). dapagliflozin 5 mg oral tablet (8 sources) Sodium-Glucose Cotransporter 2 Inhibitor Start: 06-27-2023 [...] on above: Take 1 capsule by mo [facility] twice daily. While taking narcotic pain [...] with congestion). Immodium A-D 2 mg Cap (18 sources) Start: 8 take 1 capsule by [...] 1 EA, Refill(s) 0, Prior to colonoscopy., [facility]/pharmacy #[id number], 167.6, cm, 07/19/21 8:57:00 [...] (20 sources) Proton Pump Inhibitor Start: 02-18-19 pantoprazole 40 mg, Oral, Daily, Refills(s) 0, [...] Ordered Repeat number: 1 polyethylene glycol 3350 00546 mg powder for oral solution (20 sources) Osmotic Laxative Start: polyethylene glycol 3350 [...] day, # 21 tab(s), Refills(s) 0, Pharmacy: [facility]/pharmacy #[id number] Start Date: 05/13/18 Status: Ordered Quantity: 21.0 Unit: tab(s) Repeat number: 1 Indications: Acute bronchitis, unspecified; psyllium 525 mg oral capsule (7 sources) Start: End: 024 take 5 capsules by mouth once daily Metamucil 525 mg oral capsule 2,625 mg = 5 cap(s), Oral, Daily, X 90 day(s), # 450 cap(s), Refills(s) 3, Pharmacy: [facility]/pharmacy #[id number], 167.6, cm, 06/27/22 8:28:00 EDT, Height/Length Dosing, 94.9, kg, 06/27/22 8:28:00 EDT, Weight Dosing Start Date: 06/27/22 Stop Date: 06/22/23 Status: Ordered sacubitril 24 mg / valsartan 26 mg oral tablet (8 sources) Angiotensin 2 Receptor Darryl Start: 024 take 1 tablet by mouth twice daily Entresto 24 mg-26 mg oral tablet 1 tab(s), Oral, BID, Refill(s) 0 Start Date: 06/27/23 Status: Ordered Repeat number: 1 Senna Leaves (12 sources) Start: 024 Senna 8.6 mg oral tablet 17.2 mg, 2 tab(s), Oral, BID for constipation, 100 tab(s), Refill(s) 4, [facility]/pharmacy #[id number], 167, cm, 04/15/23 12:19:00 EST, Height/Length Dosing, 89, kg, 04/15/23 12:19:00 EST, Weight Dosing Start Date: 04/15/23 Status: Ordered Quantity: 100.0 Unit: tab(s) Repeat number: 5 Start: 04-15-2023 Senna 8.6 mg o ral tablet 17.2 mg, 2 tab(s), Oral, BID for constipation, 100 tab(s), Refill(s) 4, [facility]/pharmacy #[id number], 167, cm, 04/15/23 12:19:00 [...] results, # 90 tab(s), Refills(s) 0, Pharmacy: [facility]/pharmacy #[id number], 167.6, cm, 01/02/19 13:46:00 [...] Chronic Conduction disorders (4 sources) Encounter for adjustment and management of automatic implantable cardiac defibrillator; Translations: [Presence of automatic (implantable) cardiac defibrillator] Onset: 4 Chronic Congestive heart failure; nonhypertensive (5 sources) Chronic systolic heart failure; Translations: [Chronic systolic (congestive) heart failure] Onset: 9 10-10-2018 Chronic Coronary atherosclerosis and other heart disease (3 sources) Calcification of coronary artery; Translations: [Atherosclerotic heart disease of [place] coronary artery without angina pectoris] Onset: 9 [...] (primary) hypertension] Onset: 6 07-25-2016 Chronic Hemorrhoids (20 sources) Hemorrhoids; Translations: [Unspecified hemorrhoids] Onset: 2 Episodic Other aftercare (2 sources) Drug monitoring done; Translations: [Encounter for therapeutic drug level monitoring] Episodic Other aftercare (2 sources) Encounter for therapeutic drug level monitoring; Translations: [Encounter for therapeutic drug level monitoring] Onset: 5 Episodic Other aftercare (2 sources) Other senior care (current) drug therapy; Translations: [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] Onset: 5 Episodic Other and unspecified benign neoplasm (20 sources) Polyp of colon; Translations: [Polyp of colon] Onset: 2 Episodic Other and unspecified benign neoplasm (17 sources) History of polyp of colon; Translations: [...] (gaseous)] Onset: 3 Episodic Other gastrointestinal disorders (17 sources) Abdominal bloating; Translations: [Abdominal distension (gaseous)] 05-17-2022 Episodic Other gastrointestinal disorders (15 sources) Constipation 05-17-2022 Episodic Other gastrointestinal disorders [...] sources) Long-term current use of anticoagulant; 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 All CT scans at this facility use dose modulation, iterative reconstruction, and/or weight based dosing when appropriate to reduce radiation dose to as low as reasonably achievable. Technical Comments: GFR (mL/min/1/73m2) 49 Contrast: Isovue 300 Contrast amount in ml's: 130.00 Rectal Contrast Given? No Oral contrast amount in ml's: 900.00 Ordering Provider: Dougie Harmon FINAL REPORT Dictated: 08/21/2024 1:47 pm Long Sow MD Signed (Electronic Signature): 08/21/2024 1:47 pm Signed by: Long Sow MD Transcribed by: ZEKE Technologist: CAROL Esteban [facility] CT Chest w/ Contraston 08-21 CT Chest w/ Contrast Exam Date/Time: 08/21/2024 07:53 EDT Reason for Exam: abdominal distention/surveillance;Ot her (please specify) Report IMPRESSION: INTERVAL DEVELOPMENT OF ILL-DEFINED LOW-ATTENUATION AREA POSTERIOR SEGMENT RIGHT HEPATIC LOBE. FINDING MAY REPRESENT HEPATIC STEATOSIS. HOWEVER, GIVEN CLINICAL HISTORY, EARLY METASTATIC MALIGNANCY IS NOT ENTIRELY EXCLUDED. CLINICAL CORRELATION RECOMMENDED. 6 MM PLEURAL-BASED RIGHT MIDDLE LOBE NODULE, UNCHANGED FROM 2020. CT OF THE CHEST, ABDOMEN, AND PELVIS WITH INTRAVENOUS CONTRAST MEDIUM. HISTORY: COLON CANCER. ABDOMINAL DISTENTION/SURVEILLANCE TECHNICAL FACTORS: CT imaging of the chest, abdomen, and pelvis, was obtained and formatted as 5 mm contiguous axial images from the thoracic inlet through the symphysis pubis. Sagittal and coronal reconstructions obtained during postprocessing. CT of the chest abdomen pelvis, October 19, 2020. CT of the abdomen and pelvis 07/06/2023. CT OF THE CHEST WITH INTRAVENOUS CONTRAST MEDIUM. FINDINGS: Right lun mm pleural-based noncalcified nodule right middle lobe, marginated superiorly by major fissure, unchanged from 2020 (series 5, image 79). No consolidation, pleural effusion, pneumothorax. Left lung: No nodules, masses, consolidation, pleural effusion, pneumothorax. Lymph nodes: No hilar, mediastinal, or axillary lymph node enlargement. Calcified lymph nodes left hilum, and left subcarinal space. Thoracic aorta: Normal in course and caliber. Cardiac: Size normal. No pericardial effusion. Pacemaker wires identified right atrium and right ventricle. No coronary artery calcification. Musculoskeletal:No osteoblastic, and no osteolytic lesions. Report CT OF THE ABDOMEN AND THIS WITH INTRAVENOUS CONTRAST MEDIUM. FINDINGS: Liver: Normal in size, shape. Ill-defined area of decreased attenuation visualized within posterior segment right hepatic lobe (series 2, images 55 through 65) not present on prior study. Posterior portal veins anterior segment unchanged in course and caliber. Bile Ducts: Normal in caliber. Gallbladder: No stones or wall thickening. Pancreas: Normal without masses, cysts, ductal dilatation or calcification. Spleen: Normal in size without masses or calcifications. No splenules. Kidneys: Normal in size and enhancement. No hydronephrosis, masses, or stones. End centimeter cortical cyst left kidney, unchanged. Adrenals: Normal. Small bowel: Normal in caliber. Appendix: Normal. Colon: Normal in caliber. Peritoneum: No ascites, free air, or fluid collections. Vessels: Aorta normal in course and caliber. Portal vein, splenic vein, superior mesenteric vein are patent. Lymph nodes: Retroperitoneal: No enlarged retroperitoneal lymph nodes. Mesenteric: No enlarged mesenteric lymph nodes. Pelvic: No enlarged pelvic lymph nodes. Ureters: Normal in course and caliber. No calcifications. Bladder: No wall thickening. Reproductive organs: No pelvic masses. Abdominal Wall: No hernia identified. No diastasis of rectus musculature. No edema or masses. Bones: No bone lesions. Base narrowing L4-L5. No post operative changes. All CT scans at this facility use dose modulation, iterative reconstruction, and/or weight based dosing when appropriate to reduce radiation dose to as low as reasonably achievable. Report Technical Comments: GFR (mL/min/1/73m2) 49 Contrast: Isovue 300 Contrast amount in ml's: 130.00 Ordering Provider: Dougie Harmon FINAL REPORT Dictated: 08/21/2024 2:04 pm Long Sow MD Signed (Electronic Signature): 08/21/2024 2:04 pm Signed by: Long Sow MD Transcribed by: ZEKE Technologist: CAROL Normal [facility] 36on 08-18-2024 36 Regarding lab result s from 08/13/2024: Nori Tate, ISIDRA Zurita MA Please let him know his labs show stable kidney disease. Cholesterol levels are well controlled. Liver function, thyroid function, blood counts all look ok. Please also send a copy to his PCP. Follow up as planned. Thanks Patient informed. Normal [facility] AFPon 08-16-2024 AFP 1.9 ng/mL Invalid Interpretation Code 0.0-8.4 [facility] Comment on above: Result Comment: [employer] [employer] Electrochemiluminescence Immunoassay (ECLIA) Values obtained with different assay methods or kits cannot be used interchangeably. Results cannot be interpreted as absolute evidence of the presence or absence of malignant disease. This test is not interpretable in females. Performed at: [facility] [id number] PhD Raymundo Head Performed By: #### 2 [id number] #### [facility] [address] [place] [address] CBC w/ Auto Diffon 5 Basophil Absolute 0.0 E9/L Normal 0.0-0.2 [facility] Comment on above: Performed By: #### 2 [id number] #### [facility] [address] [place] [address] Basophils/100 WBC (Bld) 0.2 % Normal 0.0-2.0 [facility] Comment on above: Performed By: #### 2 [id number] #### [facility] [address] [place] [address] Eos Absolute 0.1 E9/L Normal 0.0-0.5 [facility] Comment on above: Performed By: #### 2 [id number] #### [facility] [address] [place] [address] Eosinophils/100 WBC (Bld) 1.5 % Normal 0.0-8.0 [facility] Comment on above: Performed By: #### 2 [id number] #### [facility] [address] [place] [address] Erythrocyte distribution width (RBC) [Ratio] 15.5 % High 10.9-14.2 [facility] Comment on above: Performed By: #### 2 [id number] #### [facility] [address] [place] [address] Hematocrit (Bld) [Volume fraction] 49.4 % High 37.7-49.0 [facility] Comment on above: Performed By: #### 2 [id number] #### [facility] [address] [place] [address] Hemoglobin (Bld) [Mass/Vol] 16.5 g/dL Normal 13.5-17.5 [facility] Comment on above: Performed By: #### 2 [id number] #### [facility] [address] [place] [address] Lymph Absolute 0.7 E9/L Low 1.0-4.0 [facility] Comment on above: Performed By: #### 2 [id number] #### [facility] [address] [place] [address] Lymphocytes/100 WBC (Bld) 10.4 % Low 14.0-50.0 [facility] Comment on above: Performed By: #### 2 [id number] #### [facility] [address] [place] [address] MCH (RBC) [Entitic mass] 30.5 pg Normal 27.0-34.0 [facility] Comment on above: Performed By: #### 2 [id number] #### [facility] [address] [place] [address] MCHC (RBC) [Mass/Vol] 33.4 g/dL Normal 31.4-36.0 [facility] Comment on above: Performed By: #### 2 [id number] #### [facility] [address] [place] [address] MCV (RBC) [Entitic vol] 91.3 fL Normal 80.0-100.0 [facility] Comment on above: Performed By: #### 2 [id number] #### [facility] [address] [place] [address] [place] Absolute 0.5 E9/L Normal 0.2-1.0 [facility] Comment on above: Performed By: #### 2 [id number] #### [facility] [address] [place] [address] Monocytes/100 WBC (Bld) 7.2 % Normal 4.0-14.0 [facility] Comment on above: Performed By: #### 2 [id number] #### [facility] [address] [place] [address] Neutro Absolute 5.4 E9/L Normal 2.0-7.5 [facility] Comment on above: Performed By: #### 2 [id number] #### [facility] [address] [place] [address] Neutro Auto 80.7 % High 36.0-75.0 [facility] Comment on above: Performed By: #### 2 [id number] #### [facility] [address] [place] [address] Platelet 179.0 E9/L Normal 150.0-500. 0 [facility] Comment on above: Performed By: #### 2 [id number] #### [facility] [address] [place] [address] Platelet mean volume (Bld) [Entitic vol] 9.0 fL Normal 6.4-10.8 [facility] Comment on above: Performed By: #### 2 [id number] #### [facility] [address] [place] [address] RBC 5.4 E12/L Normal 4.3-5.9 [facility] Comment on above: Performed By: #### 2 [id number] #### [facility] [address] [place] [address] WBC 6.7 E9/L Normal 4.0-11.0 [facility] Comment on above: Performed By: #### 2 [id number] #### [facility] [address] [place] [address] CHEMISTRYOrdered By: SYSTEM SYSTEM on 08-13-2024 Albumin [Mass/Vol] 4.1 g/dL Normal 3.3 - 5.0 gm/dL [facility] Albumin/Globulin [Mass ratio] 1.7 {ratio} Normal 1.1 - 2.2 [facility] ALP [Catalytic activity/Vol] 90 [iU]/d Normal 21 - 98 Int._Unit/ L [facility] ALT No additional P-5'-P [Catalytic activity/Vol] 33 [iU]/d Normal 6 - 46 Int._Unit/ L [facility] Anion gap [Moles/Vol] 11 mmol/L Normal 6 - 16 mEq/L [facility] AST [Catalytic activity/Vol] 28 [iU]/d Normal 5 - 43 Int._Unit/ L [facility] Bilirubin [Mass/Vol] 0.6 mg/dL Normal 0.0 - 1 .1 mg/dL [facility] Calcium [Mass/Vol] 9.0 mg/dL Normal 8.9 - 11. 1 mg/dL [facility] Chloride [Moles/Vol] 106 mmol/L Normal 101 - 1 11 mmol/L [facility] CO2 [Moles/Vol] 24 mmol/L Normal 21 - 31 mmol/L [facility] Creatinine [Mass/Vol] 1.5 mg/dL High 0.5 - 1.3 mg/dL [facility] GFR/1.73 sq M.predicted MDRD (S/P/Bld) [Vol rate/Area] 49 mL/min/1.73 m2 Low >=59mL/min /1.73 m2 [facility] Globulin (S) [Mass/Vol] 2.4 g/dL Normal 1.4 - 4.0 gm/dL [facility] Glucose [Mass/Vol] 182 mg/dL Normal 55 - 199 mg/dL [facility] Potassium [Moles/Vol] 3.9 mmol/L Normal 3.5 - 5.3 mmol/L [facility] Protein [Mass/Vol] 6.5 g/dL Normal 6.0 - 7.8 gm/dL [facility] Sodium [Moles/Vol] 137 mmol/L Normal 135 - 145 mmol/L [facility] Urea nitrogen [Mass/Vol] 26 mg/dL High 5 - 21 mg/dL [facility] Urea nitrogen/Creatinine [Mass ratio] 17 mg/mg Normal 10 - 20 [facility] CMPon 08-13-2024 Albumin [Mass/Vol] 4.1 g/dL Normal 3.3-5.0 [facility] Comment on above: Performed By: #### 2 [id number] #### [facility] [address] [place] [address] Albumin/Globulin [Mass ratio] 1.7 {ratio} Normal 1.1-2.2 [facility] Comment on above: Performed By: #### 2 [id number] #### [facility] [address] [place] [address] Alk Phos 90 Int._Unit/L Normal 21-98 [facility] Comment on above: Performed By: #### 2 [id number] #### [facility] [address] [place] [address] ALT 33 Int._Unit/L Normal 6-46 [facility] Comment on above: Performed By: #### 2 [id number] #### [facility] [address] [place] [address] Anion gap [Moles/Vol] 11 mmol/L Normal 6-16 [facility] Comment on above: Performed By: #### 2 [id number] #### [facility] [address] [place] [address] AST 28 Int._Unit/L Normal 5-43 [facility] Comment on above: Performed By: #### 2 [id number] #### [facility] [address] [place] [address] Bili Total 0.6 mg/dL Normal 0.0-1.1 [facility] Comment on above: Performed By: #### 2 [id number] #### [facility] [address] [place] [address] BUN/Creat Ratio 17 No Units Normal 10-20 [facility] Comment on above: Performed By: #### 2 [id number] #### [facility] [address] [place] [address] Calcium [Mass/Vol] 9.0 mg/dL Normal 8.9-11.1 [facility] Comment on above: Performed By: #### 2 [id number] #### [facility] [address] [place] [address] Chloride [Moles/Vol] 106 mmol/L Normal 101-111 [facility] Comment on above: Performed By: #### 2 [id number] #### [facility] [address] [place] [address] CO2 [Moles/Vol] 24 mmol/L Normal 21-31 [facility] Comment on above: Performed By: #### 2 [id number] #### [facility] [address] [place] [address] Creatinine [Mass/Vol] 1.5 mg/dL High 0.5-1.3 [facility] Comment on above: Performed By: #### 2 [id number] #### [facility] [address] [place] [address] Globulin (S) [Mass/Vol] 2.4 g/dL Normal 1.4-4.0 [facility] Comment on above: Performed By: #### 2 [id number] #### [facility] [address] [place] [address] Glucose [Mass/Vol] 182 mg/dL Normal 55-199 [facility] Comment on above: Performed By: #### 2 [id number] #### [facility] [address] [place] [address] Potassium [Moles/Vol] 3.9 mmol/L Normal 3.5-5.3 [facility] Comment on above: Performed By: #### 2 [id number] #### [facility] [address] [place] [address] Protein [Mass/Vol] 6.5 g/dL Normal 6.0-7.8 [facility] Comment on above: Performed By: #### 2 [id number] #### [facility] [address] [place] [address] Sodium [Moles/Vol] 137 mmol/L Normal 135-145 [facility] Comment on above: Performed By: #### 2 [id number] #### [facility] [address] [place] [address] Urea nitrogen [Mass/Vol] 26 mg/dL High 5-21 [facility] Comment on above: Performed By: #### 2 [id number] #### [facility] [address] [place] [address] COAGULATIONOrdered By: Shruthi Chase on 08-13-2024 aPTT Coag (PPP) [Time] 42.7 s High 25.1 - 36.5 second(s) [facility] Comment on above: Interpretive Data: P arameter 15 days - 4 weeks 1 - 5 months 6 - 11 months 1 - 5 years 6 - 10 years 11 - 17 years PTT Mean: 35.4 (27.6-45.6) Mean: 33.5 (24.8-40.7) Mean: 32.4 (25.1-40.7) Mean: 31.6 (24.0-39.2) Mean: 31.6 (26.9-38.7) Mean: 31.0 (24.6-38.4) Pediatric Reference ranges were obtained from a study by Justino Chou et al. prepared from 1437 samples obtained at 7 different centers using the same coagulation reagent and instrumentation as [facility]. Currently there are no coagulation studies available worldwide for children to 14 days, and no normal ranges. Heparin therapeutic range (represented by Anti-Factor Xa activity of 0.2 - 0.4 U/mL) corresponds to PTT of 56.6 - 109.0 sec. INR Coag (PPP) [Relative time] 1.94 {INR} Invalid Interpretation Code [facility] Comment on above: Interpretive Data: I NR results are specifically intended to assess patients stabilized on long-term Anticoagulation therapy suggested INR s Less Intensive Anticoagulation 2.0 3.0 Conventional Range 3.0 4.5 PT Coag (PPP) [Time] 21.9 s High 9.4 - 1 2.5 second(s) [facility] Comment on above: Interpretive Data: 1 5 days - 4 weeks 1 - 5 months 6 -11 months 1 5 years 6 10 years 11 -17 years Mean: 11.2 (9.5 12.6) Mean: 11.0 (9.7 12.8) Mean: 11.0 (9.8 13.0) Mean: 11.3 (9.9 13.4) Mean: 11.7 (10.0 14.6) Mean: 11.8 (10.0 - 14.1) Pediatric Reference ranges were obtained from a study by Justino Chou et al. prepared from 1437 samples obtained at 7 different centers using the same coagulation reagent and instrumentation as [facility]. Currently there are no coagulation studies available worldwide for children to 14 days, and no normal ranges. HEMATOLOGYOrdered By: SYSTEM SYSTEM on 08-13-2024 Basophils/100 WBC (Bld) 0.2 % Normal 0.0 - 2.0 % Remisol Heme Basophils/Leukocytes Auto (Bld) [Pure # fraction] 0.0 E9/L Normal 0.0 - 0.2 E9/L Remisol Heme Eosinophils (Bld) [#/Vol] 0.1 E9/L Normal 0.0 - 0.5 E9/L Remisol Heme Eosinophils/100 WBC (Bld) 1.5 % Normal 0.0 - 8.0 % Remisol Heme Erythrocyte distribution width (RBC) [Ratio] 15.5 % High 10.9 - 14.2 % [facility] Heme Hematocrit (Bld) [Volume fraction] 49.4 % High 37.7 - 49.0 % Remisol Heme Hemoglobin (Bld) [Mass/Vol] 16.5 g/dL Normal 13.5 - 17.5 gm/dL [facility] Heme Lymphocytes (Bld) [#/Vol] 0.7 E9/L Low 1.0 - 4.0 E9/L Remisol Heme Lymphocytes/100 WBC (Bld) 10.4 % Low 14.0 - 50.0 % Remisol Heme MCH (RBC) [Entitic mass] 30.5 pg Normal 27.0 - 34.0 pg Remisol Heme MCHC (RBC) [Mass/Vol] 33.4 g/dL Normal 31.4 - 36.0 gm/dL Remisol Heme MCV (RBC) [Entitic vol] 91.3 fL Normal 80.0 - 100.0 fL Rem[facility] Heme Monocytes (Bld) [#/Vol] 0.5 E9/L Normal 0.2 - 1.0 E9/L Remisol Heme Monocytes/100 WBC (Bld) 7.2 % Normal 4.0 - 14.0 % Remisol Heme Neutrophils (Bld) [#/Vol] 5.4 E9/L Normal 2.0 - 7.5 E9/L Remisol Heme Neutrophils/100 WBC (Bld) 80.7 % High 36.0 - 75.0 % [facility] Heme Platelet mean volume (Bld) [Entitic vol] 9.0 fL Normal 6.4 - 10.8 fL [facility] Heme Platelets (Bld) [#/Vol] 179.0 E9/L Normal 150.0 - 500.0 E9/L Remisol Heme RBC (Bld) [#/Vol] 5.4 E12/L Normal 4.3 - 5.9 E12/L [facility] Heme WBC corrected for nucl RBC Auto (Bld) [#/Vol] 6.7 E9/L Normal 4.0 - 11.0 E9/L Remisol Heme PT & PTTon 08-13-2024 INR Coag (PPP) [Relative time] 1.94 {INR} Invalid Interpretation Code [facility] Comment on above: Result Comment: INR results are specifically intended to assess patients stabilized on long-term Anticoagulation therapy suggested INR???s ???Less Intensive Anticoagulation??? 2.0 ??? 3.0 Conventional Range 3.0 ??? 4.5 Performed By: #### 1 [id number] #### [facility] [address] [place] [address] PT 21.9 second(s) High 9.4-12.5 [facility] Comment on above: Result Comment: 15 d ays - 4 weeks 1 - 5 months 6 -11 months 1 ??? 5 years 6 ??? 10 years 11 -17 years Mean: 11.2 (9.5 ??? 12.6) Mean: 11.0 (9.7 ??? 12.8) Mean: 11.0 (9.8 ??? 13.0) Mean: 11.3 (9.9 ??? 13.4) Mean: 11.7 (10.0 ??? 14.6) Mean: 11.8 (10.0 - 14.1) Pediatric Reference ranges were obtained from a study by radha Bass prepared from 1437 samples obtained at 7 different centers using the same coagulation reagent and instrumentation as [facility]. Currently there are no coagulation studies available worldwide for children to 14 days, and no normal ranges. Performed By: #### 1 [id number] #### [facility] [address] [place] [address] PTT 42.7 second(s) High 25.1-36.5 [facility] Comment on above: Result Comment: Para meter 15 days - 4 weeks 1 - 5 months 6 - 11 months 1 - 5 years 6 - 10 years 11 - 17 years PTT Mean: 35.4 (27.6-45.6) Mean: 33.5 (24.8-40.7) Mean: 32.4 (25.1-40.7) Mean: 31.6 (24.0-39.2) Mean: 31.6 (26.9-38.7) Mean: 31.0 (24.6-38.4) Pediatric Reference ranges were obtained from a study by radha Bass prepared from 1437 samples obtained at 7 different centers using the same coagulation reagent and instrumentation as [facility]. Currently there are no coagulation studies available worldwide for children to 14 days, and no normal ranges. Heparin therapeutic range (represented by Anti-Factor Xa activity of 0.2 - 0.4 U/mL) corresponds to PTT of 56.6 - 109.0 sec. Performed By: #### 1 [id number] #### [facility] [address] [place] [address] eGFRon 08-13-2024 eGFR 49 mL/min/1.73 m2 Low >=59 [facility] Comment on above: Performed By: #### 1 [id number] #### [facility] [address] [place] [address] 37on 08-11-2024 37 *Hold amiodarone at this time. *[facility] will call you to schedule a heart ultrasound. *Follow-up with Dr. Clayton in 3 months. Normal [facility] Office Visiton 08-11-2024 Follow-up visit [id number] Gray Rodriguez 1950 M Date Provider Department Center 08/11/2024 [facility] Family History Problem Relation Age of Onset Coronary artery disease Mother Hypertension Father Bone cancer Father Family Status - Relation Status Age at Mother Father Level of Service:32397 NM OFFICE/OUTPATIENT ESTABLISHED MOD MDM 30 MIN Reason for Visit and Comments: Congestive Heart Failure [127] Coronary Artery Disease [187] Hypertension [984700] Normal [facility] CBC w/ Auto Diffon 5 Basophil Absolute 0.0 E9/L Normal 0.0-0.2 [facility] Comment on above: Performed By: #### 2 [id number] #### [facility] [address] [place] [address] Basophils/100 WBC (Bld) 0.2 % Normal 0.0-2.0 [facility] Comment on above: Performed By: #### 2 [id number] #### [facility] [address] [place] [address] Eos Absolute 0.1 E9/L Normal 0.0-0.5 [facility] Comment on above: Performed By: #### 2 [id number] #### [facility] [address] [place] [address] Eosinophils/100 WBC (Bld) 1.1 % Normal 0.0-8.0 [facility] Comment on above: Performed By: #### 2 [id number] #### [facility] [address] [place] [address] Erythrocyte distribution width (RBC) [Ratio] 15.4 % High 10.9-14.2 [facility] Comment on above: Performed By: #### 2 [id number] #### [facility] [address] [place] [address] Hematocrit (Bld) [Volume fraction] 51.9 % High 37.7-49.0 [facility] Comment on above: Performed By: #### 2 [id number] #### [facility] [address] [place] [address] Hemoglobin (Bld) [Mass/Vol] 17.4 g/dL Normal 13.5-17.5 [facility] Comment on above: Performed By: #### 2 [id number] #### [facility] [address] [place] [address] Lymph Absolute 0.8 E9/L Low 1.0-4.0 [facility] Comment on above: Performed By: #### 2 [id number] #### [facility] [address] [place] [address] Lymphocytes/100 WBC (Bld) 11.4 % Low 14.0-50.0 [facility] Comment on above: Performed By: #### 2 [id number] #### [facility] [address] [place] [address] MCH (RBC) [Entitic mass] 30.4 pg Normal 27.0-34.0 [facility] Comment on above: Performed By: #### 2 [id number] #### [facility] [address] [place] [address] MCHC (RBC) [Mass/Vol] 33.5 g/dL Normal 31.4-36.0 [facility] Comment on above: Performed By: #### 2 [id number] #### [facility] [address] [place] [address] MCV (RBC) [Entitic vol] 90.8 fL Normal 80.0-100.0 [facility] Comment on above: Performed By: #### 2 [id number] #### [facility] [address] [place] [address] [place] Absolute 0.6 E9/L Normal 0.2-1.0 [facility] Comment on above: Performed By: #### 2 [id number] #### [facility] [address] [place] [address] Monocytes/100 WBC (Bld) 8.6 % Normal 4.0-14.0 [facility] Comment on above: Performed By: #### 2 [id number] #### [facility] [address] [place] [address] Neutro Absolute 5.6 E9/L Normal 2.0-7.5 [facility] Comment on above: Performed By: #### 2 607866 #### [facility] [address] [place] [address] Neutro Auto 78.7 % High 36.0-75.0 [facility] Comment on above: Performed By: #### 2 785017 #### [facility] [address] [place] [address] Platelet 194.0 E9/L Normal 150.0-500. 0 [facility] Comment on above: Performed By: #### 2 [id number] #### [facility] [address] [place] [address] Platelet mean volume (Bld) [Entitic vol] 9.1 fL Normal 6.4-10.8 [facility] Comment on above: Performed By: #### 2 [id number] #### [facility] [address] [place] [address] RBC 5.7 E12/L Normal 4.3-5.9 [facility] Comment on above: Performed By: #### 2 [id number] #### [facility] [address] [place] [address] WBC 7.1 E9/L Normal 4.0-11.0 [facility] Comment on above: Performed By: #### 2 [id number] #### [facility] [address] [place] [address] CEAon 07-21-2024 CEA 2.5 ng/mL Invalid Interpretation Code [facility] Comment on above: Result Comment: 'NON -SMOKER < 2.5' 'SMOKER < 5.0' The concentration of CEA in a given specimen determined by different manufacturers can vary due to differences in assay methods and reagent specificity. Values obtained with different assay methods cannot be used interchangeably. The methodology used to perform this test was chemiluminescence using [employer]'s Access CEA reagent. Performed By: #### 2 [id number] #### [facility] [address] [place] [address] CHEMISTRYOrdered By: SYSTEM SYSTEM on 07-21-2024 Albumin [Mass/Vol] 4.3 g/dL Normal 3.3 - 5.0 gm/dL Remisol Chem Albumin/Globulin [Mass ratio] 1.8 {ratio} Normal 1.1 - 2.2 Remisol Chem ALP [Catalytic activity/Vol] 100 [iU]/d High 21 - 98 Int._Unit/ L Remisol Chem ALT No additional P-5'-P [Catalytic activity/Vol] 27 [iU]/d Normal 6 - 46 Int._Unit/ L Remisol Chem Anion gap [Moles/Vol] 13 mmol/L Normal 6 - 16 mEq/L Remisol Chem AST [Catalytic activity/Vol] 22 [iU]/d Normal 5 - 43 Int._Unit/ L Remisol Chem Bilirubin [Mass/Vol] 0.7 mg/dL Normal [...] perform this test was chemiluminescence using [employer]'s Access CEA reagent. Chloride [Moles/Vol] 105 mmol/L [...] (S/P/Bld) [Vol rate/Area] 53 mL/min/1.73 m2 Low >=59mL/min /1.73 m2 Remisol Chem Globulin (S) [Mass/Vol] 2.4 [...] Normal 10 - 20 Rem[facility] Chem CMPon 06-10-2025 Albumin [Mass/Vol] 4.3 g/dL Normal 3.3-5.0 [facility] Comment on above: Performed By: #### 2 [id number] #### [facility] [address] [place] [address] Albumin/Globulin [Mass ratio] 1.8 {ratio} Normal 1.1-2.2 [facility] Comment on above: Performed By: #### 2 [id number] #### [facility] [address] [place] [address] Alk Phos 100 Int._Unit/L High 21-98 [facility] Comment on above: Performed By: #### 2 [id number] #### [facility] [address] [place] [address] ALT 27 Int._Unit/L Normal 6-46 [facility] Comment on above: Performed By: #### 2 [id number] #### [facility] [address] [place] [address] Anion gap [Moles/Vol] 13 mmol/L Normal 6-16 [facility] Comment on above: Performed By: #### 2 315061 #### [facility] [address] [place] [address] AST 22 Int._Unit/L Normal 5-43 [facility] Comment on above: Performed By: #### 2 [id number] #### [facility] [address] [place] [address] Bili Total 0.7 mg/dL Normal 0.0-1.1 [facility] Comment on above: Performed By: #### 2 382541 #### [facility] [address] [place] [address] BUN/Creat Ratio 14 No Units Normal 10-20 [facility] Comment on above: Performed By: #### 2 574017 #### [facility] [address] [place] [address] Calcium [Mass/Vol] 9.2 mg/dL Normal 8.9-11.1 [facility] Comment on above: Performed By: #### 2 043234 #### [facility] [address] [place] [address] Chloride [Moles/Vol] 105 mmol/L Normal 101-111 [facility] Comment on above: Performed By: #### 2 [id number] #### [facility] [address] [place] [address] CO2 [Moles/Vol] 28 mmol/L Normal 21-31 [facility] Comment on above: Performed By: #### 2 [id number] #### [facility] [address] [place] [address] Creatinine [Mass/Vol] 1.4 mg/dL High 0.5-1.3 [facility] Comment on above: Performed By: #### 2 161933 #### [facility] [address] [place] [address] Globulin (S) [Mass/Vol] 2.4 g/dL Normal 1.4-4.0 [facility] Comment on above: Performed By: #### 2 [id number] #### [facility] [address] [place] [address] Glucose [Mass/Vol] 185 mg/dL Normal 55-199 [facility] Comment on above: Performed By: #### 2 786595 #### [facility] [address] [place] [address] Potassium [Moles/Vol] 4.2 mmol/L Normal 3.5-5.3 [facility] Comment on above: Performed By: #### 2 [id number] #### [facility] [address] [place] [address] Protein [Mass/Vol] 6.7 g/dL Normal 6.0-7.8 [facility] Comment on above: Performed By: #### 2 910215 #### [facility] [address] [place] [address] Sodium [Moles/Vol] 142 mmol/L Normal 135-145 [facility] Comment on above: Performed By: #### 2 [id number] #### [facility] [address] [place] [address] Urea nitrogen [Mass/Vol] 20 mg/dL Normal 5-21 [facility] Comment on above: Performed By: #### 2 267728 #### [facility] [address] [place] [address] Ferritinon 07-21-2024 Ferritin Lvl 50 ng/mL Normal 24-336 [facility] Comment on above: Performed By: #### 2 126033 #### [facility] [address] [place] [address] Folateon 07-21-2024 Folate Lvl >22.3 Normal >=6.7 [facility] Comment on above: Performed By: #### 2 [id number] #### [facility] [address] [place] [address] HEMATOLOGYOrdered By: Ced Chase on 07-21-2024 Basophils/100 [...] Ironon 07-21-2024 Iron 53 microgram/dL Normal 35-153 [facility] Comment on above: Performed By: #### 2 [id number] #### [facility] [address] [place] [address] Iron Saturationon 07-21-2024 Iron Sat 17 % Low 20-50 [facility] Comment on above: Performed By: #### 2 600562 #### [facility] [address] [place] [address] TIBC 307 microgram/dL Normal 250-400 [facility] Comment on above: Performed By: #### 2 [id number] #### [facility] [address] [place] [address] Transferrinon 07-21-2024 Transferrin [Mass/Vol] 219 mg/dL Normal 200-370 [facility] Comment on above: Performed By: #### 2 [id number] #### [facility] [address] [place] [address] Vit B12on 07-21-2024 Cobalamin (Vitamin B12) [Mass/Vol] 353 pg/mL Normal 50-1500 [facility] Comment on above: Performed By: #### 2 [id number] #### [facility] [address] [place] [address] eGFRon 07-21-2024 eGFR 53 mL/min/1.73 m2 Low >=59 [facility] Comment on above: Performed By: #### 1 [id number] #### [facility] [address] [place] [address] CBC w/ Auto Diffon 4 Basophils/100 WBC (Bld) 0.2 % Normal 0.0-2.0 [facility] Comment on above: Performed By: #### 2 [id number] #### [facility] [address] [place] [address] Basophils/Leukocytes Auto (Bld) [Pure # fraction] 0.0 E9/L Normal 0.0-0.2 [facility] Comment on above: Performed By: #### 2 [id number] #### [facility] [address] [place] [address] Eosinophils (Bld) [#/Vol] 0.3 E9/L Normal 0.0-0.5 [facility] Comment on above: Performed By: #### 2 503656 #### [facility] [address] [place] [address] Eosinophils/100 WBC (Bld) 4.1 % Normal 0.0-8.0 [facility] Comment on above: Performed By: #### 2 [id number] #### [facility] [address] [place] [address] Erythrocyte distribution width (RBC) [Ratio] 15.8 % High 10.9-14.2 [facility] Comment on above: Performed By: #### 2 [id number] #### [facility] [address] [place] [address] Hematocrit (Bld) [Volume fraction] 46.2 % Normal 37.7-49.0 [facility] Comment on above: Performed By: #### 2 [id number] #### [facility] [address] [place] [address] Hemoglobin (Bld) [Mass/Vol] 15.8 g/dL Normal 13.5-17.5 [facility] Comment on above: Performed By: #### 2 064662 #### [facility] [address] [place] [address] Lymphocytes (Bld) [#/Vol] 0.9 E9/L Low 1.0-4.0 [facility] Comment on above: Performed By: #### 2 710042 #### [facility] [address] [place] [address] Lymphocytes/100 WBC (Bld) 12.6 % Low 14.0-50.0 [facility] Comment on above: Performed By: #### 2 545546 #### [facility] [address] [place] [address] MCH (RBC) [Entitic mass] 31.1 pg Normal 27.0-34.0 [facility] Comment on above: Performed By: #### 2 428125 #### [facility] [address] [place] [address] MCHC (RBC) [Mass/Vol] 34.1 g/dL Normal 31.4-36.0 [facility] Comment on above: Performed By: #### 2 279238 #### [facility] [address] [place] [address] MCV (RBC) [Entitic vol] 91.1 fL Normal 80.0-100.0 [facility] Comment on above: Performed By: #### 2 [id number] #### [facility] [address] [place] [address] Monocytes (Bld) [#/Vol] 0.5 E9/L Normal 0.2-1.0 [facility] Comment on above: Performed By: #### 2 [id number] #### [facility] [address] [place] [address] Neutrophils (Bld) [#/Vol] 5.3 E9/L Normal 2.0-7.5 [facility] Comment on above: Performed By: #### 2 299409 #### [facility] [address] [place] [address] Neutrophils/100 WBC (Bld) 75.9 % High 36.0-75.0 [facility] Comment on above: Performed By: #### 2 170807 #### [facility] [address] [place] [address] Platelet 216.0 E9/L Normal 150.0-500. 0 [facility] Comment on above: Performed By: #### 2 085124 #### [facility] [address] [place] [address] Platelet mean volume (Bld) [Entitic vol] 8.8 fL Normal 6.4-10.8 [facility] Comment on above: Performed By: #### 2 [id number] #### [facility] [address] [place] [address] RBC (Bld) [#/Vol] 5.1 E12/L Normal 4.3-5.9 [facility] Comment on above: Performed By: #### 2 130903 #### [facility] [address] [place] [address] WBC corrected for nucl RBC Auto (Bld) [#/Vol] 7.0 E9/L Normal 4.0-11.0 [facility] Comment on above: Performed By: #### 2 [id number] #### [facility] [address] [place] [address] CEAon 07-23-2023 CEA 1.4 ng/mL Invalid Interpretation Code [facility] Comment on above: Result Comment: 'NON -SMOKER [...] Access CEA reagent. Performed By: #### 2 [id number] #### [facility] [address] [place] [address] CHEMISTRYOrdered By: SYSTEM SYSTEM on 07-23-2023 Albumin [Mass/Vol] 4.1 g/dL Normal 3.3 - 5.0 gm/dL Rem[facility] Chem Albumin/Globulin [Mass ratio] 1.7 {ratio} Normal 1.1 - 2.2 [facility] Chem ALP [Catalytic activity/Vol] 93 [iU]/d Normal 21 - 98 Int._Unit/ L Rem[facility] Chem ALT No additional P-5'-P [Catalytic activity/Vol] 30 [iU]/d Normal 6 - 46 Int._Unit/ L [facility] Chem Anion gap [Moles/Vol] 12 mmol/L Normal 6 - 16 mEq/L [facility] Chem AST [Catalytic activity/Vol] 25 [iU]/d Normal 5 - 43 Int._Unit/ L [facility] Chem Bilirubin [Mass/Vol] 0.7 mg/dL Normal [...] chemiluminescence using [employer] Access CEA reagent. Chloride [Moles/Vol] 107 mmol/L Normal 101 - 1 11 mmol/L [facility] Chem CO2 [Moles/Vol] 26 mmol/L Normal 21 - 31 mmol/L [facility] Cobalamin (Vitamin B12) [Mass/Vol] 305 pg/mL Normal 50 - 1500 pg/mL [facility] Chem Creatinine [Mass/Vol] 1.3 mg/dL Normal 0.5 - 1.3 mg/dL [facility] Chem eGFR 59 mL/min/1.73 m2 Normal >=59mL/min /1.73 m2 [facility] Chem Ferritin [Mass/Vol] 43 ng/mL [...] 07-23-2023 Albumin [Mass/Vol] 4.1 g/dL Normal 3.3-5.0 [facility] Comment on above: Performed By: #### 2 [id number] #### [facility] [address] [place] [address] Albumin/Globulin (S) [Mass conc ratio] 1.7 Normal 1.1-2.2 [facility] Comment on above: Performed By: #### 2 [id number] #### [facility] [address] [place] [address] ALP [Catalytic activity/Vol] 93 Int._Unit/L Normal 21-98 [facility] Comment on above: Performed By: #### 2 [id number] #### [facility] [address] [place] [address] ALT No additional P-5'-P [Catalytic activity/Vol] 30 Int._Unit/L Normal 6-46 [facility] Comment on above: Performed By: #### 2 [id number] #### [facility] [address] [place] [address] Anion gap [Moles/Vol] 12 mmol/L Normal 6-16 [facility] Comment on above: Performed By: #### 2 [id number] #### [facility] [address] [place] [address] AST [Catalytic activity/Vol] 25 Int._Unit/L Normal 5-43 [facility] Comment on above: Performed By: #### 2 528552 #### [facility] [address] [place] [address] Bilirubin [Mass/Vol] 0.7 mg/dL Normal 0.0-1.1 [facility] Comment on above: Performed By: #### 2 230830 #### [facility] [address] [place] [address] Calcium [Mass/Vol] 9.2 mg/dL Normal 8.9-11.1 [facility] Comment on above: Performed By: #### 2 455829 #### [facility] [address] [place] [address] Chloride [Moles/Vol] 107 mmol/L Normal 101-111 [facility] Comment on above: Performed By: #### 2 627412 #### [facility] [address] [place] [address] CO2 [Moles/Vol] 26 mmol/L Normal 21-31 [facility] Comment on above: Performed By: #### 2 439326 #### [facility] [address] [place] [address] Creatinine [Mass/Vol] 1.3 mg/dL Normal 0.5-1.3 [facility] Comment on above: Performed By: #### 2 [id number] #### [facility] [address] [place] [address] Globulin (S) [Mass/Vol] 2.4 g/dL Normal 1.4-4.0 [facility] Comment on above: Performed By: #### 2 259857 #### [facility] [address] [place] [address] Glucose [Mass/Vol] 170 mg/dL Normal 55-199 [facility] Comment on above: Performed By: #### 2 [id number] #### [facility] [address] [place] [address] Potassium [Moles/Vol] 4.0 mmol/L Normal 3.5-5.3 [facility] Comment on above: Performed By: #### 2 215335 #### [facility] [address] [place] [address] Protein [Mass/Vol] 6.5 g/dL Normal 6.0-7.8 [facility] Comment on above: Performed By: #### 2 [id number] #### [facility] [address] [place] [address] Sodium [Moles/Vol] 141 mmol/L Normal 135-145 [facility] Comment on above: Performed By: #### 2 [id number] #### [facility] [address] [place] [address] Urea nitrogen [Mass/Vol] 19 mg/dL Normal 5-21 [facility] Comment on above: Performed By: #### 2 343171 #### [facility] [address] [place] [address] Urea nitrogen/Creatinine [Mass ratio] 15 No Units Normal 10-20 [facility] Comment on above: Performed By: #### 2 [id number] #### [facility] [address] [place] [address] Consent for Treatmenton 07-12 Consent for Treatment [id number] Normal [facility] Ferritinon 07-23-2023 Ferritin [Mass/Vol] 43 ng/mL Normal 24-336 [facility] Comment on above: Performed By: #### 2 [id number] #### [facility] [address] [place] [address] Folateon 07-23-2023 Folate [Mass/Vol] ng/mL Normal >=6.7 [facility] Comment on above: Performed By: #### 2 [id number] #### [facility] [address] [place] [address] HEMATOLOGYOrdered By: SYSTEM SYSTEM on 07-23-2023 Basophils/100 [...] 07-23-2023 Iron [Mass/Vol] 83 microgram/dL Normal 35-153 [facility] Comment on above: Performed By: #### 2 [id number] #### [facility] [address] [place] [address] Iron Saturationon 07-23-2023 Iron binding capacity [Mass/Vol] 302 microgram/dL Normal 250-400 [facility] Comment on above: Performed By: #### 2 [id number] #### [facility] [address] [place] [address] Iron saturation [Mass fraction] 27 % Normal 20-50 [facility] Comment on above: Performed By: #### 2 [id number] #### [facility] [address] [place] [address] Lipase Levelon 07-23-2023 Lipase [Catalytic activity/Vol] 29 U/L Normal 13-58 [facility] Comment on above: Performed By: #### 2 [id number] #### [facility] [address] [place] [address] Transferrinon 07-23-2023 Transferrin [Mass/Vol] 216 mg/dL Normal 200-370 [facility] Comment on above: Performed By: #### 2 [id number] #### [facility] [address] [place] [address] Vit B12on 07-23-2023 Cobalamin (Vitamin B12) [Mass/Vol] 305 pg/mL Normal 50-1500 [facility] Comment on above: Performed By: #### 2 [id number] #### [facility] [address] [place] [address] CT Abdomen/Pelvis w/ Contras ton 07-11-2023 CT [...] Oral contrast amount in ml's: 900 Normal [facility] Consent for Treatmenton 06-12 Consent for Treatment [id number] Normal [facility] CHEMISTRYOrdered By: SYSTEM SYSTEM on 07-02-2023 Creatinine [Mass/Vol] 1.3 mg/dL Normal 0.5 - 1.3 mg/dL Remisol Chem eGFR 59 mL/min/1.73 m2 Normal >=59mL/min /1.73 m2 [facility] Chem Creatinineon 07-02-2023 Creatinine [Mass/Vol] 1.3 mg/dL Normal 0.5-1.3 [facility] Comment on above: Performed By: #### 2 [id number] #### [facility] [address] [place] [address] eGFRon 07-02-2023 eGFR 59 mL/min/1.73 m2 Normal >=59 [facility] Comment on above: Order Comment: Order added by Discern Expert. Performed By: #### 1 [id number] #### [facility] [address] [place] [address] CNOVon 06-25-2023 OV Office Visit ([facility] ) -- SHAD RODRIGUEZ ([id number]) 1950 M Date Time Provider Department 06/25/23 11:30 AM NANCI MILL[facility] During your visit today, we recorded [...] (bone cance (more content not included)... Normal [facility] -- SHAD RODRIGUEZ ([id number]) 1950 M Date Time Provider Department 04/26/23 [facility]AN[facility]ILLER [facility] During your visit today, we recorded the following information about you: Teresa Moore 04/26/2023 1:11 PM Signed Called and LVM regarding referral for Manometry by Kei Franco. Allergies As of Date: 04/26/2023 Noted Allergy Reaction PENICILLINS 06/22/2015 16 - Unknown RAGWEED 12/05/2015 12 - Shortness of Breath Date Reviewed: 09/05/2020 Reviewed by: Belem Koch APRN.CHARGE LOADER - Fully Assessed Reason for Visit: Appointment [...] Encounter Status:Closed by TERESA MOORE on 04/26/23 [facility] CHEMISTRYOrdered By: SYSTEM SYSTEM on 04-19-2023 Creatinine [Mass/Vol] 1.6 mg/dL High 0.5 - 1.3 mg/dL Rem[facility] Chem eGFR 46 mL/min/1.73 m2 Low >=59mL/min /1.73 m2 [facility] Chem CHEMISTRYOrdered By: Lab ROP User on 10-02-2022 INR Coag (Bld) [Relative time] 2.1 {INR} High 0.7 - 1.2 [facility] POC Subsection POC Device SN [id number] Invalid Interpretation Code [facility] POC Subsection POC Username PARISA HYDE Invalid Interpretation Code [facility] POC Subsection POCT PT 23.2 s High 8.0 - 15.0 second(s) [facility] POC Subsection Sodium [Moles/Vol] [id number] mmol/L Invalid Interpretation Code [facility] POC Subsection COAGULATIONOrdered By: Elenita Hyde on 10-02-2022 INR Coag (Bld) [Relative time] 2.1 {INR} High 0.7 - 1.2 [facility] POCT PT 23.2 s High 8 - 15 second(s) [facility] CHEMISTRYOrdered By: Lab ROP User on 08-21-2022 POC Device SN [id number] Invalid Interpretation Code [facility] POC Subsection POC Username CHRISTINA HAINES Invalid Interpretation Code [facility] POC Subsection Sodium [Moles/Vol] [id number] mmol/L Invalid Interpretation Code [facility] POC Subsection COAGULATIONOrdered By: Ebenezer Haines on 08-21-2022 INR Coag (Bld) [Relative time] 2.1 {INR} High 0.7 - 1.2 [facility] POCT PT 23.3 s High 8 - 15 second(s) [facility] CHEMISTRYOrdered By: Lab ROP User on 07-10-2022 POC Device SN [id number] Invalid Interpretation Code [facility] POC Subsection POC Username SHAYY CAIN Invalid Interpretation Code [facility] POC Subsection Sodium [Moles/Vol] [id number] mmol/L Invalid Interpretation Code [facility] POC Subsection COAGULATIONOrdered By: Elenita Hyde on 01-09-2022 POCT INR 2.8 High 0.7 - 1.2 [facility] POCT PT 30.2 High 8 - 15 [facility] CHEMISTRYOrdered By: SYSTEM SYSTEM on 12-27-2021 Albumin [Mass/Vol] 4.0 g/dL Normal 3.3 - 5.0 gm/dL [facility] Remisol Albumin/Globulin [Mass ratio] 1.3 {ratio} Normal 1.1 - 2.2 FT Remisol ALP [Catalytic activity/Vol] 90 [iU]/d Normal 21 - 98 Int._Unit/ L [facility] Remisol ALT No additional P-5'-P [Catalytic activity/Vol] 46 [iU]/d Normal 6 - 46 Int._Unit/ L [facility] Remisol Anion gap [Moles/Vol] 12 mmol/L Normal 6 - 16 mEq/L [facility] Remisol AST [Catalytic activity/Vol] 29 [iU]/d Normal 5 - 43 Int._Unit/ L [facility] Remisol Bilirubin [Mass/Vol] 0.7 mg/dL Normal [...] MDRD (S/P/Bld) [Vol rate/Area] mL/min/1.73 m2 Normal >=59mL/min /1.73 m2 FT Chem S GFR/1.73 sq M.predicted among non-blacks MDRD (S/P/Bld) [Vol rate/Area] 50 mL/min/1.73 m2 Low >=59mL/min /1.73 m2 [facility] Chem S Globulin (S) [Mass/Vol] 3.1 g/dL [...] 1.4 % Normal 0.0 - 2.0 % FT HemeAutoSS Basophils/Leukocytes Auto (Bld) [Pure # fraction] 0.1 E9/L Normal 0.0 - 0.2 E9/L [facility] Eosinophils/100 WBC (Bld) 0.8 % Normal 0.0 - 8.0 % [facility]eAutoSS Eosinophils/Leukocyt es Auto (Bld) [Pure # fraction] 0.1 E9/L Normal 0.0 - 0.5 E9/L [facility] Lymphocytes/100 WBC (Bld) 9.3 % Low 14.0 - 50.0 % [facility]eAuto[facility] Lymphocytes/Leukocyt es Auto (Bld) [Pure # fraction] 0.7 E9/L Low 1.0 - 4.0 E9/L [facility]eAuto[facility] Monocytes/100 WBC (Bld) 4.0 % Normal 4.0 - 14.0 % [facility]Auto[facility] Monocytes/Leukocytes Auto (Bld) [Pure # fraction] 0.3 E9/L Normal 0.2 - 1.0 E9/L [facility] Neutrophils/100 WBC (Bld) 84.5 % High 36.0 - 75.0 % [facility]Auto[facility] Neutrophils/Leukocyt es Auto (Bld) [Pure # fraction] 6.5 E9/L [...] 228.0 E9/L Normal 150.0 - 500.0 E9/L [facility] HemeAutoSS RBC (Bld) [#/Vol] 5.2 E12/L Normal 4.3 - 5.9 E12/L [facility] HemeAutoSS WBC corrected for nucl RBC Auto (Bld) [#/Vol] 7.7 E9/L Normal 4.0 - 11.0 E9/L [facility] HemeAutoSS Covid-19 PCR (CVDTB)on SARS-CoV-2 (COVID-19) RNA KELLY+probe Ql (Unsp spec) Detected Critically abnormal NOT DETECTED [facility] Comment on above: Result Comment: This test is not yet approved or cleared by the [place] FDA. When there are no FDA-approved or cleared tests available, and other criteria are met, FDA can make tests available under an emergency access mechanism called an Emergency Use Authorization (EUA). The EUA for this test is supported by the [place] of Health and Human Service's (HHS's) declaration [...] By: #### C VDTBH #### [facility] [address] [place] [address] Dr. Kayli Perez INFLUENZA A AND B AGon 12-14 [facility] SEE BELOW Normal [facility] Comment on above: Result Comment: Nega tive for Flu A protein angiten. Infection due to Flu A cannot be ruled out. Flu A angiten in the sample may be below the detection limit of the test. Performed By: #### I NFLUAB #### [facility] [address] [place] [address] Dr. Kayli Perez INFLUBNEG SEE BELOW Normal [facility] Comment on above: Result Comment: Nega tive for Flu B protein antigen. Infection due to Flu B cannot be ruled out. Flu B antigen in the sample may be below the detection limit of the test. Performed By: #### I NFLUAB #### [facility] [address] [address] [address] Kayli Perez INFLUENZA A AG Negative Normal NEGATIVE SEE COMMENT [facility] Comment on above: Performed By: #### I NFLUAB #### [facility] [address] [address] [address] Kayli Perez INFLUENZA B AG Negative Normal NEGATIVE SEE COMMENT [facility] Comment on above: Performed By: #### I NFLUAB #### [facility] [address] [address] [address] Kayli Perez INTERNAL CONTROLS Within Normal Limits Normal Wi thin Normal Limits [facility] Comment on above: Performed By: #### I NFLUAB #### [facility] [address] [address] [address] Kayli Perez CHEMISTRYOrdered By: Christina Haines on 11-28-2021 INR POC FT 2.5 [facility] PT POC FT 30.3 s High 10.8 - 13.6 second(s) [facility] CHEMISTRYOrdered By: Parisa Hyde on 10-13-2021 INR POC FT 2.4 [facility] PT POC FT 28.9 s High 10.8 - 13.6 second(s) [facility] CHEMISTRYOrdered By: Shayy Cain on 10-03-2021 INR POC FT 2.6 [facility] PT POC FT 31.6 s High 10.8 - 13.6 second(s) [facility] CHEMISTRYOrdered By: SYSTEM SYSTEM on 06-23-2021 Albumin [Mass/Vol] 3.8 g/dL Normal 3.3 - 5.0 gm/dL FT Remisol Albumin/Globulin [Mass ratio] 1.3 {ratio} Normal 1.1 - 2.2 [facility] Remisol ALP [Catalytic activity/Vol] 95 [iU]/d Normal 21 - 98 Int._Unit/ L [facility] Remisol ALT No additional P-5'-P [Catalytic activity/Vol] 25 [iU]/d Normal 6 - 46 Int._Unit/ L [facility] Remisol Anion gap [Moles/Vol] 11 mmol/L Normal 6 - 16 mEq/L [facility] Remisol AST [Catalytic activity/Vol] 23 [iU]/d Normal 5 - 43 Int._Unit/ L [facility] Remisol Bilirubin [Mass/Vol] 0.7 mg/dL Normal [...] MDRD (S/P/Bld) [Vol rate/Area] mL/min/1.73 m2 Normal >=59mL/min /1.73 m2 [facility] Chem S GFR/1.73 sq M.predicted among non-blacks MDRD (S/P/Bld) [Vol rate/Area] 60 mL/min/1.73 m2 Normal >=59mL/min /1.73 m2 [facility] Chem S Globulin (S) [Mass/Vol] 3.0 g/dL [...] [facility] Remisol HEMATOLOGYOrdered By: SYSTEM SYSTEM on 05-13-2022 Basophils/100 WBC (Bld) 0.3 % Normal 0.0 - 2.0 % [facility]eAutoSS Basophils/Leukocytes Auto (Bld) [Pure # fraction] 0.0 E9/L Normal 0.0 - 0.2 E9/L [facility] Eosinophils/100 WBC (Bld) 2.0 % Normal 0.0 - 8.0 % [facility]eAuto[facility] Eosinophils/Leukocyt es Auto (Bld) [Pure # fraction] 0.1 E9/L Normal 0.0 - 0.5 E9/L [facility] Lymphocytes/100 WBC (Bld) 13.1 % Low 14.0 - 50.0 % [facility]Auto[facility] Lymphocytes/Leukocyt es Auto (Bld) [Pure # fraction] 0.8 E9/L Low 1.0 - 4.0 E9/L [facility] Monocytes/100 WBC (Bld) 7.7 % Normal 4.0 - 14.0 % [facility] Monocytes/Leukocytes Auto (Bld) [Pure # fraction] 0.5 E9/L Normal 0.2 - 1.0 E9/L [facility] Neutrophils/100 WBC (Bld) 76.9 % High 36.0 - 75.0 % [facility]eAuto[facility] Neutrophils/Leukocyt es Auto (Bld) [Pure # fraction] 4.8 E9/L [...] activity/Vol] 90 [iU]/d Normal 21 - 98 Int._Unit/ L [facility] Remisol ALT No additional P-5'-P [Catalytic activity/Vol] 26 [iU]/d Normal 6 - 46 Int._Unit/ L [facility] Remisol Anion gap [Moles/Vol] 14 mmol/L Normal 6 - 16 mEq/L [facility] Remisol AST [Catalytic activity/Vol] 24 [iU]/d Normal 5 - 43 Int._Unit/ L [facility] Remisol Bilirubin [Mass/Vol] 0.8 mg/dL Normal [...] MDRD (S/P/Bld) [Vol rate/Area] mL/min/1.73 m2 Normal >=59mL/min /1.73 m2 [facility] Chem S GFR/1.73 sq M.predicted among non-blacks MDRD (S/P/Bld) [Vol rate/Area] 50 mL/min/1.73 m2 Low >=59mL/min /1.73 m2 [facility] Chem S Globulin (S) [Mass/Vol] 2.8 g/dL Normal 1.4 - 4.0 gm/dL FT Remisol Glucose [Mass/Vol] 159 mg/dL Normal 55 - 199 mg/dL [facility] Remisol Potassium [Moles/Vol] 3.8 mmol/L Normal 3.5 - 5.3 mmol/L [facility] Remisol Protein [Mass/Vol] 6.7 g/dL Normal 6.0 - 7.8 gm/dL [facility] Remisol Sodium [Moles/Vol] 135 mmol/L Normal 135 - 145 mmol/L [facility] Remisol Urea nitrogen [Mass/Vol] 15 mg/dL Normal 5 - 21 mg/dL [facility] Urea nitrogen/Creatinine [Mass ratio] 11 mg/mg Normal 10 - 20 [facility] HEMATOLOGYOrdered By: SYSTEM SYSTEM on 06-14-2021 Basophils/100 WBC (Bld) 0.3 % Normal 0.0 - 2.0 % [facility]eAutoSS Basophils/Leukocytes Auto (Bld) [Pure # fraction] 0.0 E9/L Normal 0.0 - 0.2 E9/L [facility] Eosinophils/100 WBC (Bld) 1.2 % Normal 0.0 - 8.0 % [facility]Auto[facility] Eosinophils/Leukocyt es Auto (Bld) [Pure # fraction] 0.1 E9/L Normal 0.0 - 0.5 E9/L [facility] Lymphocytes/100 WBC (Bld) 12.6 % Low 14.0 - 50.0 % [facility]eAuto[facility] Lymphocytes/Leukocyt es Auto (Bld) [Pure # fraction] 0.8 E9/L Low 1.0 - 4.0 E9/L [facility] Monocytes/100 WBC (Bld) 6.9 % Normal 4.0 - 14.0 % [facility]Auto[facility] Monocytes/Leukocytes Auto (Bld) [Pure # fraction] 0.4 E9/L Normal 0.2 - 1.0 E9/L [facility] Neutrophils/100 WBC (Bld) 79.0 % High 36.0 - 75.0 % [facility] Neutrophils/Leukocyt es Auto (Bld) [Pure # fraction] 4.8 E9/L [...] [facility] Progress Noteon 07-02-2019 Progress Note [address] [place] [address] Progress Note Signed:[id number] Name: SHAD RODRIGUEZ MRUN: [id number] : 1950 Loc: 3S Age / Sex: 68/ M Adm Status: DIS Leonor Adm Date:06/03/19 Room/Bed: [facility] Date of Service 04/23/20 Subjective (ROS) Constitutional: Weakness Eyes: No Symptoms [...] (Auto) 12.8 % (24.0-44.0) L 06/05/19 05:34 [place] % (Auto) 7.5 % (1.7-9.3) 06/05/19 05:34 Eos % (Auto) 1.3 % (0.0-5.0) 06/05/19 05:34 Baso % (Auto) 0.3 % (0.0-1.0) 06/05/19 05:34 Neut # (Auto) 4.5 10 3/uL (1.5-6.7) 06/05/19 05:34 Lymph # (Auto) 0.7 10 3/uL (1.0-3.5) L 06/05/19 05:34 [place] # (Auto) 0.4 10 3/uL (0.2-0.8) 06/05/19 [...] [id number] CC: Fercho TORRES, Danii Pickett Normal [facility] CBC WITH AUTO DIFFon 020 Basophils (Bld) [#/Vol] 0.0 10 3/uL Normal 0.0-0.2 [facility] Comment on above: Performed By: #### P T #### [facility] - [address] [address] Basophils/100 WBC (Bld) 0.3 % Normal 0.0-1.0 [facility] Comment on above: Performed By: #### P T #### [facility] - [address] [address] Eosinophils (Bld) [#/Vol] 0.1 10 3/uL Normal 0.0-0.7 [facility] Comment on above: Performed By: #### P T #### [facility] - [address] [address] Eosinophils/100 WBC (Bld) 1.3 % Normal 0.0-5.0 [facility] Comment on above: Performed By: #### P T #### [address] [address] Erythrocyte distribution width (RBC) [Ratio] 14.4 % High 11.5-14.0 [facility] Comment on above: Performed By: #### P T #### [facility] - [address] [address] Hematocrit (Bld) [Volume fraction] 39.2 % Normal 38.7-49.8 [facility] Comment on above: Performed By: #### P T #### [facility] - [address] [address] Hemoglobin (Bld) [Mass/Vol] 13.2 g/dL Normal 12.9-16.6 [facility] Comment on above: Performed By: #### P T #### [facility] - [address] [address] Lymphocytes (Bld) [#/Vol] 0.7 10 3/uL Low 1.0-3.5 [facility] Comment on above: Performed By: #### P T #### [facility] - [address] [address] Lymphocytes/100 WBC (Bld) 12.8 % Low 24.0-44.0 [facility] Comment on above: Performed By: #### P T #### [facility] - [address] [address] MCH (RBC) [Entitic mass] 28.9 pg Normal 27.0-31.0 [facility] Comment on above: Performed By: #### P T #### [facility] - [address] [address] MCHC (RBC) [Mass/Vol] 33.8 g/dL Normal 32.0-36.0 [facility] Comment on above: Performed By: #### P T #### [facility] - [address] [address] MCV (RBC) [Entitic vol] 85.5 fL Normal 78.0-100.0 [facility] Comment on above: Performed By: #### P T #### [facility] - [address] [address] Monocytes (Bld) [#/Vol] 0.4 10 3/uL Normal 0.2-0.8 [facility] Comment on above: Performed By: #### P T #### [facility] - [address] [address] Monocytes/100 WBC (Bld) 7.5 % Normal 1.7-9.3 [facility] Comment on above: Performed By: #### P T #### Main Lab - [facility] [address] [place], [place] [address] Neutrophils (Bld) [#/Vol] 4.5 10 3/uL Normal 1.5-6.7 [facility] Comment on above: Performed By: #### P T #### Main Lab - [facility] [address] [place] [address] Neutrophils/100 WBC (Bld) 78.1 % High 36.0-66.0 [facility] Comment on above: Performed By: #### P T #### Main Lab - [facility] [address] [place] [address] Platelet mean volume (Bld) [Entitic vol] 7.9 fL Normal 6.0-9.5 [facility] Comment on above: Performed By: #### P T #### Main [facility] - [facility] [address] [place] [address] Platelets (Bld) [#/Vol] 180 10 3/uL Normal 150-450 [facility] Comment on above: Performed By: #### P T #### Main [facility] - [facility] [address] [place] [address] RBC (Bld) [#/Vol] 4.58 x10 6/uL Normal 4.38-5.71 [facility] Comment on above: Performed By: #### P T #### Main [facility] - [facility] [address] [place] [address] WBC (Bld) [#/Vol] 5.8 10 3/uL Normal 4.0-10.5 [facility] Comment on above: Performed By: #### P T #### Main [facility] - [facility] [address] [place] [address] COMPREHENSIVE METABOLIC PANE Sukhi 06-05-2019 Albumin [Mass/Vol] 3.1 g/dL Low 3.9-5.0 [facility] Comment on above: Performed By: #### P T #### Main [facility] - [facility] [address] [place] [address] Albumin/Globulin [Mass ratio] 1.2 {ratio} Normal 1.1-1.8 [facility] Comment on above: Performed By: #### P T #### Main [facility] - [facility] [address] [place] [address] ALP [Catalytic activity/Vol] 84 U/L Normal 43-122 [facility] Comment on above: Performed By: #### P T #### Main Lab - [facility] [address] [place] [address] ALT/SGPT 48 U/L Normal 7-56 [facility] Comment on above: Performed By: #### P T #### Main Lab - [facility] [address] [place] [address] Anion gap [Moles/Vol] 8 mmol/L Low 9-18 [facility] Comment on above: Performed By: #### P T #### [facility] - [facility] [address] [place] [address] AST/SGOT 26 U/L Normal 14-50 [facility] Comment on above: Performed By: #### P T #### [facility] - [address] [address] Bilirubin [Mass/Vol] 0.5 mg/dL Normal 0.2-1.3 [facility] Comment on above: Performed By: #### P T #### [facility] - [address] [address] Calcium [Mass/Vol] 8.5 mg/dL Normal 8.4-10.2 [facility] Comment on above: Performed By: #### P T #### Main Lab - [address] [address] Chloride [Moles/Vol] 106 mmol/L Normal 98-107 [facility] Comment on above: Performed By: #### P T #### Main [facility] - [facility] [address] [place] [address] CO2 [Moles/Vol] 27 mmol/L Normal 22-31 [facility] Comment on above: Performed By: #### P T #### Main Lab - [facility] [address] [place] [address] Creatinine [Mass/Vol] 1.30 mg/dL Normal 0.80-1.30 [facility] Comment on above: Performed By: #### P T #### Main Lab - [facility] [address] [place], [place] [address] ESTIMATED CREAT CLEARANCE 52.26 Normal [facility] Comment on above: Result Comment: COCK CROFT-GAULT FORMULA 1973 Performed By: #### P T #### [address] [address] ESTIMATED GLOMERULAR FILT RATE 55.000 mL/min Normal [facility] Comment on above: Performed By: #### P T #### [address] [address] Globulin (S) [Mass/Vol] 2.6 g/dL Normal [facility] Comment on above: Performed By: #### P T #### [address] [address] Glucose [Mass/Vol] 108 mg/dL High 70-99 [facility] Comment on above: Result Comment: The glucose range is based on recommendations from the [place] [employer] for fasting blood glucose range. Performed By: #### P T #### [facility] - [address] [address] Potassium [Moles/Vol] 3.7 mmol/L Normal 3.6-5.0 [facility] Comment on above: Performed By: #### P T #### [address] [address] Protein [Mass/Vol] 5.7 g/dL Low 6.3-8.2 [facility] Comment on above: Performed By: #### P T #### [address] [address] Sodium [Moles/Vol] 137 mmol/L Normal 137-145 [facility] Comment on above: Performed By: #### P T #### [address] [address] Urea nitrogen [Mass/Vol] 15 mg/dL Normal 7-21 [facility] Comment on above: Performed By: #### P T #### [address] [address] Urea nitrogen/Creatinine [Mass ratio] 11.5 Ratio Normal 5.0-42.0 [facility] Comment on above: Performed By: #### P T #### [facility] - [address] [address] Age - Reported 68 Years Normal Damione rn [facility] Comment on above: Performed By: #### P T #### [facility] - [address] [place], [place] [address] PT WITH INRon 06-05-2019 INR Coag (PPP) [Relative time] 3.1 {INR} Normal [facility] Comment on above: Result Comment: ISAAK MMENDED RANGES FOR INR: Therapeutic range for standard therapy INR: 2.0-3.0 Therapeutic range for high dose therapy INR: 2.5-3.5 Performed By: #### P T #### [facility] - [address] [address] PT Coag (PPP) [Time] 32.2 s High 12.0-14.5 [facility] Comment on above: Performed By: #### P T #### [facility] - [place] [id number] URINE CULTUREon 06-05-2019 Bacteria identified Cx Nom (U) @06/03/19 1933: URINE CULT added. RFLXG = URINE CULT. @[place] [id number]. URINE CULTURE: NO GROWTH AT 48 HOURS Normal [facility] Comment on above: Performed By: #### P T #### [facility] - [address] [address] CBC WITH AUTO DIFFon 020 Basophils (Bld) [#/Vol] 0.0 10 3/uL Normal 0.0-0.2 [facility] Comment on above: Performed By: #### P T, CMP, CBC #### [facility] - [address] [address] Basophils/100 WBC (Bld) 0.2 % Normal 0.0-1.0 [facility] Comment on above: Performed By: #### P T, CMP, CBC #### [facility] - [address] [address] Eosinophils (Bld) [#/Vol] 0.0 10 3/uL Normal 0.0-0.7 [facility] Comment on above: Performed By: #### P T, CMP, CBC #### Main Lab - [facility] [address] [place] [address] 99580 Eosinophils/100 WBC (Bld) 0.3 % Normal 0.0-5.0 [facility] Comment on above: Performed By: #### P T, CMP, CBC #### Main Lab - [facility] [address] [place] [address] 59058 Erythrocyte distribution width (RBC) [Ratio] 14.4 % High 11.5-14.0 [facility] Comment on above: Performed By: #### P T, CMP, CBC #### Main Lab - [facility] [address] [place] [address] 53760 Hematocrit (Bld) [Volume fraction] 40.5 % Normal 38.7-49.8 [facility] Comment on above: Performed By: #### P T, CMP, CBC #### Main Lab - [facility] [address] [place] [address] 96694 Hemoglobin (Bld) [Mass/Vol] 13.9 g/dL Normal 12.9-16.6 [facility] Comment on above: Performed By: #### P T, CMP, CBC #### Main Lab - [facility] [address] [place] [address] 60577 Lymphocytes (Bld) [#/Vol] 0.6 10 3/uL Low 1.0-3.5 [facility] Comment on above: Performed By: #### P T, CMP, CBC #### Main Lab - [facility] [address] [place] [address] 07465 Lymphocytes/100 WBC (Bld) 8.3 % Low 24.0-44.0 [facility] Comment on above: Performed By: #### P T, CMP, CBC #### Main Lab - [facility] [address] [place] [address] 49644 MCH (RBC) [Entitic mass] 29.2 pg Normal 27.0-31.0 [facility] Comment on above: Performed By: #### P T, CMP, CBC #### Main Lab - [facility] [address] [place] [address] 07436 MCHC (RBC) [Mass/Vol] 34.2 g/dL Normal 32.0-36.0 [facility] Comment on above: Performed By: #### P T, CMP, CBC #### Main Lab - [facility] [address] [place] [address] 47604 MCV (RBC) [Entitic vol] 85.2 fL Normal 78.0-100.0 [facility] Comment on above: Performed By: #### P T, CMP, CBC #### Main Lab - [facility] [address] [place] [address] 33240 Monocytes (Bld) [#/Vol] 0.4 10 3/uL Normal 0.2-0.8 [facility] Comment on above: Performed By: #### P T, CMP, CBC #### Main Lab - [facility] [address] [place] [address] 50720 Monocytes/100 WBC (Bld) 5.4 % Normal 1.7-9.3 [facility] Comment on above: Performed By: #### P T, CMP, CBC #### Main Lab - [facility] [address] [place] [address] 11187 Neutrophils (Bld) [#/Vol] 5.8 10 3/uL Normal 1.5-6.7 [facility] Comment on above: Performed By: #### P T, CMP, CBC #### [facility] - [facility] [address] [place] [address] 53741 Neutrophils/100 WBC (Bld) 85.8 % High 36.0-66.0 [facility] Comment on above: Performed By: #### P T, CMP, CBC #### Main Lab - [facility] [address] [place] [address] 68491 Platelet mean volume (Bld) [Entitic vol] 8.1 fL Normal 6.0-9.5 [facility] Comment on above: Performed By: #### P T, CMP, CBC #### Main Lab - [facility] [address] [place] [address] 78462 Platelets (Bld) [#/Vol] 190 10 3/uL Normal 150-450 [facility] Comment on above: Performed By: #### P T, CMP, CBC #### Main Lab - [facility] [address] [place] [address] 07451 RBC (Bld) [#/Vol] 4.75 x10 6/uL Normal 4.38-5.71 [facility] Comment on above: Performed By: #### P T, CMP, CBC #### Main Lab - [facility] [place], [place] [address] WBC (Bld) [#/Vol] 6.7 10 3/uL Normal 4.0-10.5 [facility] Comment on above: Performed By: #### P T, CMP, CBC #### Main Lab - [facility] [address] [place] [address] 91071 COMPREHENSIVE METABOLIC PANE Sukhi 06-04-2019 Albumin [Mass/Vol] 3.4 g/dL Low 3.9-5.0 [facility] Comment on above: Performed By: #### P T, CMP, CBC #### Main Lab - [facility] [address] [place] [address] 52207 Albumin/Globulin [Mass ratio] 1.2 {ratio} Normal 1.1-1.8 [facility] Comment on above: Performed By: #### P T, CMP, CBC #### Main Lab - [facility] [address] [place] [address] 61448 ALP [Catalytic activity/Vol] 92 U/L Normal 43-122 [facility] Comment on above: Performed By: #### P T, CMP, CBC #### Main Lab - [facility] [address] [place] [address] 22661 ALT/SGPT 62 U/L High 7-56 [facility] Comment on above: Performed By: #### P T, CMP, CBC #### Main Lab - [facility] [address] [place] [address] 51684 Anion gap [Moles/Vol] 8 mmol/L Low 9-18 [facility] Comment on above: Performed By: #### P T, CMP, CBC #### Main Lab - [facility] [address] [place] [address] 60291 AST/SGOT 36 U/L Normal 14-50 [facility] Comment on above: Result Comment: Spec imen Slightly Hemolyzed. Performed By: #### P T, CMP, CBC #### Main Lab - [facility] [address] [place] [address] 78767 Bilirubin [Mass/Vol] 0.5 mg/dL Normal 0.2-1.3 [facility] Comment on above: Performed By: #### P T, CMP, CBC #### Main Lab - [facility] [address] [place], [place] [address] Calcium [Mass/Vol] 8.9 mg/dL Normal 8.4-10.2 [facility] Comment on above: Performed By: #### P T, CMP, CBC #### Main Lab - [facility] [address] [place] [address] 11162 Chloride [Moles/Vol] 109 mmol/L High 98-107 [facility] Comment on above: Result Comment: Inco nsistent with previous results. Performed By: #### P T, CMP, CBC #### Main Lab - [facility] [address] [place] [address] 96765 CO2 [Moles/Vol] 27 mmol/L Normal 22-31 [facility] Comment on above: Performed By: #### P T, CMP, CBC #### Main Lab - [facility] [address] [place] [address] 35237 Creatinine [Mass/Vol] 1.28 mg/dL Normal 0.80-1.30 [facility] Comment on above: Performed By: #### P T, CMP, CBC #### Main Lab - [facility] [address] [place] [address] 22059 ESTIMATED CREAT CLEARANCE 53.08 [facility] Comment on above: Result Comment: COCK CROFT-GAULT FORMULA 1972 Performed By: #### P T, CMP, CBC #### Main Lab - [facility] [address] [place] [address] 46195 ESTIMATED GLOMERULAR FILT RATE 56.000 mL/min Normal [facility] Comment on above: Performed By: #### P T, CMP, CBC #### Main Lab - [facility] [address] [place] [address] 70432 Globulin (S) [Mass/Vol] 2.9 g/dL Normal [facility] Comment on above: Performed By: #### P T, CMP, CBC #### Main Lab - [facility] [place], [place] [address] Glucose [Mass/Vol] 165 mg/dL High 70-99 [facility] Comment on above: Result Comment: The glucose range is based on recommendations from the [place] [employer] for fasting blood glucose range. Performed By: #### P T, CMP, CBC #### Main Lab - [facility] [address] [place], [place] [address] Potassium [Moles/Vol] 3.7 mmol/L Normal 3.6-5.0 [facility] Comment on above: Result Comment: Spec imen Slightly Hemolyzed. Performed By: #### P T, CMP, CBC #### Main Lab - [facility] [address] [place] [address] 25654 Protein [Mass/Vol] 6.3 g/dL Normal 6.3-8.2 [facility] Comment on above: Performed By: #### P T, CMP, CBC #### Main Lab - [facility] [address] [place] [address] 85126 Sodium [Moles/Vol] 140 mmol/L Normal 137-145 [facility] Comment on above: Performed By: #### P T, CMP, CBC #### Main Lab - [facility] [address] [place] [address] 95730 Urea nitrogen [Mass/Vol] 17 mg/dL Normal 7-21 [facility] Comment on above: Performed By: #### P T, CMP, CBC #### Main Lab - [facility] [address] [place] [address] 28276 Urea nitrogen/Creatinine [Mass ratio] 13.3 Ratio Normal 5.0-42.0 [facility] Comment on above: Performed By: #### P T, CMP, CBC #### Main Lab - [facility] [address] [place] [address] 25724 Age - Reported [address] [facility] Comment on above: Performed By: #### P T, CMP, CBC #### Main Lab - [facility] [place], [place] [address] CREATINE KINASE MBon 020 CK.MB [Mass/Vol] 4.0 ng/mL High 0.0-3.7 [facility] Comment on above: Performed By: #### C KMB 1 #### Main Lab - [facility] [place], [place] [address] CK.MB [Mass/Vol] 3.8 ng/mL High 0.0-3.7 [facility] Comment on above: Performed By: #### C KMB 1 #### Main Lab - [facility] [address] [place] [address] 77667 CK.MB [Mass/Vol] 4.4 ng/mL High 0.0-3.7 [facility] Comment on above: Performed By: #### P T #### Main Lab - [facility] [address] [place] [address] ABDOMEN PELVIS W/Oon 05-13 CT ABDOMEN PELVIS W/O [facility] [address] [place] [address] Diagnostic Imaging Report : [id number] Signed Name: SHAD RODRIGUEZ MRUN: [id number] : 1950 Loc: 3S Age / Sex: 68 / M ADM Status: ADM Leonor ADM Date: 06/03/19 Room/Bed: [facility] Ordering Physician: Vikc ENCISO [facility] Procedure: CT ABDOMEN PELVIS W/O Order Number(s): [id number] Ordered Date: 06/04/19 Ordered Time: 0006 EXAMINATION: [...] No pelvic mass, adenopathy, or fluid collection. Peritoneum/Retroperitoneum : Midline fat containing ventral hernia with 6.5 [...] Signed Date/Time: 06/04/19225 Transcribed Date/Time: 06/04/19221 Normal [facility] DRUG SCREEN,URINEon 06-04-19 AMPHETAMINE SCREEN,URINE Negative Normal NEGATIVE [facility] Comment on above: Order Comment: @ COL L DATE was changed from 06/03/19 to 06/04/19 @ by [id number]. Old specimen was [id number]. Result Comment: Nega tive cut-off concentration <1000 ng/mL Performed By: #### U DS #### Main Lab - [facility] [address] [place] [address] BARBITURATE SCREEN, URINE Negative Normal NEGATIVE [facility] Comment on above: Order Comment: @ COL L DATE was changed from 06/03/19 to 06/04/19 @ by [id number]. Old specimen was [id number]. Result Comment: Nega tive cut-off concentration <200 ng/mL Performed By: #### U DS #### Main Lab - [facility] [address] [place], [place] [address] BENZODIAZEPINES SCREEN,URINE Negative Normal NEGATIVE [facility] Comment on above: Order Comment: @ COL L DATE was changed from 06/03/19 to 06/04/19 @ by [id number]. Old specimen was [id number]. Result Comment: Nega tive cut-off concentration <200 ng/mL Performed By: #### U DS #### Main Lab - [facility] [address] [place], [place] [address] BUPRENORPHINE SCREEN,URINE Negative Normal NEGATIVE [facility] Comment on above: Order Comment: @ COL L DATE was changed from 06/03/19 to 06/04/19 @ by [id number]. Old specimen was [id number]. Result Comment: Nega tive cut-off concentration <10 ng/mL Performed By: #### U DS #### Main Lab - [facility] [address] [place], [place] [address] CANNABINOID SCREEN,URINE Negative Normal NEGATIVE [facility] Comment on above: Order Comment: @ COL L DATE was changed from 06/03/19 to 06/04/19 @ by [id number]. Old specimen was [id number]. Result Comment: Nega tive cut-off concentration <50 ng/mL Performed By: #### U DS #### Main Lab - [facility] [address] [place] [id number] COCAINE SCREEN,URINE Negative Normal NEGATIVE [facility] Comment on above: Order Comment: @ COL L DATE was changed from 06/03/19 to 06/04/19 @ by [id number]. Old specimen was [id number]. Result Comment: Nega tive cut-off concentration <300 ng/mL Performed By: #### U DS #### Main Lab - [facility] [address] [place], [place] [address] METHADONE SCREEN,URINE Negative Normal NEGATIVE [facility] Comment on above: Order Comment: @ COL L DATE was changed from 06/03/19 to 06/04/19 @ by [id number]. Old specimen was [id number]. Result Comment: Nega tive cut-off concentration <300 ng/mL Performed By: #### U DS #### Main Lab - [facility] [address] [place] [address] 18197 OPIATE SCREEN,URINE Negative Normal NEGATIVE [facility] Comment on above: Order Comment: @ COL L DATE was changed from 06/03/19 to 06/04/19 @ by [id number]. Old specimen was [id number]. Result Comment: Nega tive cut-off concentration <300 ng/mL Performed By: #### U DS #### Main Lab - [facility] [address] [place], [place] [address] OXYCODONE SCREEN,URINE Negative Normal NEGATIVE [facility] Comment on above: Order Comment: @ COL L DATE was changed from 06/03/19 to 06/04/19 @ by [id number]. Old specimen was [id number]. Result Comment: Nega tive cut-off concentration <300 ng/mL Performed By: #### U DS #### Main Lab - [facility] [address] [place], [place] [address] PHENCYCLIDINE SCREEN,URINE Negative Normal NEGATIVE [facility] Comment on above: Order Comment: @ COL L DATE was changed from 06/03/19 to 06/04/19 @ by [id number]. Old specimen was [id number]. Result Comment: Nega tive cut-off concentration <25 ng/mL Performed By: #### U DS #### Main Lab - [facility] [place], [place] [address] NITRITE,URINE Negative Normal NEGATIVE [facility] Comment on above: Order Comment: @ COL L DATE was changed from 06/03/19 to 06/04/19 @ by [id number]. Old specimen was [id number]. Performed By: #### U DS #### Main Lab - [facility] [place], [place] [address] pH (U) 6.0 [pH] Normal 5.0-8.0 [facility] Comment on above: Order Comment: @ COL L DATE was changed from 06/03/19 to 06/04/19 @ by [id number]. Old specimen was [id number]. Performed By: #### U DS #### Main Lab - [facility] [address] [place] [address] 09735 SPECIFIC GRAVITY,URINE 1.027 SP.GR. Normal <1.029 [facility] Comment on above: Order Comment: @ COL L DATE was changed from 06/03/19 to 06/04/19 @ by [id number]. Old specimen was [id number]. Performed By: #### U DS #### Main Lab - [facility] [address] [place] [address] 42798 ECHOCARDIOGRAM COMPLETEon ECHOCARDIOGRAM COMPLETE [facility] [address] [place] [address] Cardiovascular Imaging Report : [id number] Signed Name: SHAD RODRIGUEZ MRUN: [id number] : 1950 Loc: 3S Age / Sex: 68 / M ADM Status: ADM Leonor ADM Date: 06/03/19 Room/Bed: [facility] Ordering Physician: Vick ENCISO, [facility] Procedure: ECHOCARDIOGRAM COMPLETE Order Number(s): [id number] Ordered Date: 06/04/19 Ordered Time: 0700 SEOSYNCVPROD [id number] Transthoracic Echo Report Ht (in): 67 Wt [...] 4.4 cm RV Mid 3.7 cm RV [place] to Base 8.6 cm Ascending Aorta Diameter 3.2 cm M-MODE Aortic Root Diameter MM 3.6 cm LA Systolic Diameter MM 4.2 cm LA Ao Ratio MM 1.2 DOPPLER AV Peak Velocity 1.3 m/s AV Peak Gradient 6.6 mmHg LVOT Peak Velocity 0.8 m/s LVOT Peak Gradient 2.5 mmHg LVOT Mean Gradient 1.3 mmHg LVOT Velocity Time Integral 16.7 cm MV Deceleration [place] 1.3 m/s? MV Pressure Half Time 83.2 [...] Date/Time: 06/04/19 1132 Transcribed Date/Time: 06/04/19946 Normal [facility] History & Physicalon 020 History & Physical [address] [facility] [place] [address] History Physical Signed with Addenda:[id number] Name: SHAD RODRIGUEZ MRUN: [id number] : 1950 Loc: 3S Age / Sex: 68/ M Adm Status: ADM Leonor Adm Date:06/03/19 Room/Bed: [facility]01 ADDENDUM-------- -- Bilateral lower extremities have chronic venous stasis changes and trace edema, small open wound on right leg. 06/04/19 0048 CC: Vick ENCISO, [facility] Date of Service 06/03/19 History of Present Illness Information source:: Patient Chief Complaint: I passed out This is a pleasant 68-year-old male with a history of diabetes mellitus and colon cancer was brought into the emergency room by the tubular riveter for further evaluation and management of a syncopal event. Patient was in his usual state of health until this afternoon. 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 He was taking the exit to get to the Highway around 4:30 PM after exchanging the trailer with his colleague. He felt like his truck is spinning around. The next thing he knew was tubular riveter were knocking on the door. He was found slumped over on the steering wheel. He did not experience any chest pain, palpitations, focal weakness, vision changes or diaphoresis prior to the episode. No prior similar symptoms. No reports of seizure-like activity. No reports of bladder or bowel incontinence. No history of PA, CVA or seizures. He had his breakfast [...] (Auto) 12.0 % (24.0-44.0) L 06/03/19 17:36 [place] % (Auto) 6.0 % (1.7-9.3) 06/03/19 17:36 Eos % (Auto) 0.6 % (0.0-5.0) 06/03/19 17:36 Baso % (Auto) 0.3 % (0.0-1.0) 06/03/19 17:36 Neut # (Auto) 5.7 10 3/uL (1.5-6.7) 06/03/19 17:36 Lymph # (Auto) 0.8 10 3/uL (1.0-3.5) L 06/03/19 17:36 [place] # (Auto) 0.4 10 3/uL (0.2-0.8) 06/03/19 [...] 06/03/19 17:36 Alkaline Phosphatase 104 U/L (43-122) 04/22/20 17:36 Creatine Kinase 195 U/L (55-170) H [...] actually had an appointment with surgeon at [facility] for rectal hernia repair about one to [...] Chronic 06/04/197 CC: Vick ENCISO, Usrees Normal [facility] LACTATE FOLLOW UPon 06-04-19 LACTATE FOLLOW UP 1.0 mmol/L Normal 0.7-2.4 [facility] Comment on above: Order Comment: @05/13: LACTATE 2 added. RFLXG = LACTICRFX. Performed By: #### L ACTATE 2 #### Main Lab - [facility] [address] [place] [address] 44644 PT WITH INRon 06-04-2019 INR Coag (PPP) [Relative time] 3.0 {INR} Normal [facility] Comment on above: Order Comment: @ Pre viously cancelled by [id number] on 06/04/19 at 0924. @ Uncancelled by [id number] on 06/04/19 at 0931. @ Specimen Rejected Previously Y. @ Previous Rejection Reason DUPLICATE - Duplicate orders. Result Comment: ISAAK MMENDED RANGES FOR INR: Therapeutic range for standard therapy INR: 2.0-3.0 Therapeutic range for high dose therapy INR: 2.5-3.5 Performed By: #### P T #### Main Lab - [facility] [place], [place] [address] PT Coag (PPP) [Time] 31.2 s High 12.0-14.5 [facility] Comment on above: Order Comment: @ Pre viously cancelled by [id number] on 06/04/19 at 0924. @ Uncancelled by [id number] on 06/04/19 at 0931. @ Specimen Rejected Previously Y. @ Previous Rejection Reason DUPLICATE - Duplicate orders. Performed By: #### P T #### Main Lab - [facility] [address] [place] [address] 08221 INR Coag (PPP) [Relative time] 3.1 {INR} Normal [facility] Comment on above: Result Comment: ISAAK MMENDED RANGES FOR INR: Therapeutic range for standard therapy INR: 2.0-3.0 Therapeutic range for high dose therapy INR: 2.5-3.5 Performed By: #### P T, CMP, CBC #### Main Lab - [facility] [address] [place] [address] 92372 PT Coag (PPP) [Time] 32.1 s High 12.0-14.5 [facility] Comment on above: Performed By: #### P T, CMP, CBC #### Main Lab - [facility] [place], [place] [address] TROPONIN Ion 06-04-2019 Troponin I.cardiac [Mass/Vol] 0.06 ng/mL High 0.0-0.03 [facility] Comment on above: Result Comment: Refe rence Interval < or = 0.03 ng/mL Clinical Correlation Needed 0.03 - 0.11 ng/mL AMI Cutoff, Presumptive = or > 0.12 ng/mL Performed By: #### T ROP 1 #### Main [facility] - [facility] [address] [place] [address] 84664 Troponin I.cardiac [Mass/Vol] 0.06 ng/mL High 0.0-0.03 [facility] Comment on above: Result Comment: Refe rence Interval < or = 0.03 ng/mL Clinical Correlation Needed 0.03 - 0.11 ng/mL AMI Cutoff, Presumptive = or > 0.12 ng/mL Performed By: #### P T #### Main Lab - [facility] [address] [place] [address] 91071 US CAROTID DUPLEX BILATERALo n 06-04-2019 US CAROTID DUPLEX BILATERAL [facility] [address] [place] [address] Diagnostic Imaging Report : [id number] Signed Name: SHAD RODRIGUEZ MRUN: [id number] : 1950 Loc: 3S Age / Sex: 68 / M ADM Status: ADM Leonor ADM Date: 06/03/19 Room/Bed: [facility] Ordering Physician: Vick ENCISO Usrees Procedure: US CAROTID DUPLEX BILATERAL Order Number(s): [id number] Ordered Date: 06/04/19 Ordered Time: 0700 EXAMINATION: [...] 06/04/19 1142 Transcribed Date/Time: 06/04/19 1138 Normal [facility] Waveform Imaging Reporton Waveform Imaging Report [facility] [address] [place] [address] Waveform Imaging Report : [id number] Signed Name: SHAD RODRIGUEZ MRUN: [id number] : 1950 Loc: 3S Age / Sex: 68 / M ADM Status: ADM Leonor ADM Date: 06/03/19 Room/Bed: [facility] Ordering Physician: Modesto Hickman MD Procedure: EKG Order Number(s): [id number] Ordered Date: 06/04/19 Ordered Time: 599 Test Date: 2019-06-04 03:50:57 Pat Name: SHAD RODRIGUEZ Department: [address] [place] [address] Room: [facility] Gender: M Acquisition Marketing Manager: : 1950 Requested By: Modesto Hickman Order Number: [id number] Reading MD: Sakina Pack Measurements Intervals [place] Rate: 57 P: 69 NM: 150 QRS: 99 QRSD: 108 T: -168 [...] Signed Date/Time: 06/04/19 0911 Transcribed Date/Time: Normal [facility] ALCOHOL, MEDICAL ONLYon 05-13 ALCOHOL, MEDICAL < 10 Normal [facility] Comment on above: Result Comment: Alco hol for medical purposes only. Performed By: #### T ROP 1 #### Main Lab - [facility] [address] [place] [address] 70863 CBC WITH AUTO DIFFon 020 Basophils (Bld) [#/Vol] 0.0 10 3/uL Normal 0.0-0.2 [facility] Comment on above: Performed By: #### P T #### [address] [address] Basophils/100 WBC (Bld) 0.3 % Normal 0.0-1.0 [facility] Comment on above: Performed By: #### P T #### [address] [address] Eosinophils (Bld) [#/Vol] 0.0 10 3/uL Normal 0.0-0.7 [facility] Comment on above: Performed By: #### P T #### [address] [address] Eosinophils/100 WBC (Bld) 0.6 % Normal 0.0-5.0 [facility] Comment on above: Performed By: #### P T #### [address] [address] Erythrocyte distribution width (RBC) [Ratio] 14.2 % High 11.5-14.0 [facility] Comment on above: Performed By: #### P T #### [address] [address] Hematocrit (Bld) [Volume fraction] 42.8 % Normal 38.7-49.8 [facility] Comment on above: Performed By: #### P T #### [address] [address] Hemoglobin (Bld) [Mass/Vol] 14.6 g/dL Normal 12.9-16.6 [facility] Comment on above: Performed By: #### P T #### [address] [address] Lymphocytes (Bld) [#/Vol] 0.8 10 3/uL Low 1.0-3.5 [facility] Comment on above: Performed By: #### P T #### [address] [address] Lymphocytes/100 WBC (Bld) 12.0 % Low 24.0-44.0 [facility] Comment on above: Performed By: #### P T #### [address] [address] MCH (RBC) [Entitic mass] 29.2 pg Normal 27.0-31.0 [facility] Comment on above: Performed By: #### P T #### [facility] - [address] [address] MCHC (RBC) [Mass/Vol] 34.1 g/dL Normal 32.0-36.0 [facility] Comment on above: Performed By: #### P T #### [facility] - [address] [address] MCV (RBC) [Entitic vol] 85.7 fL Normal 78.0-100.0 [facility] Comment on above: Performed By: #### P T #### [facility] - [address] [address] Monocytes (Bld) [#/Vol] 0.4 10 3/uL Normal 0.2-0.8 [facility] Comment on above: Performed By: #### P T #### [facility] - [address] [address] Monocytes/100 WBC (Bld) 6.0 % Normal 1.7-9.3 [facility] Comment on above: Performed By: #### P T #### [facility] - [address] [address] Neutrophils (Bld) [#/Vol] 5.7 10 3/uL Normal 1.5-6.7 [facility] Comment on above: Performed By: #### P T #### [facility] Lab - [address] [address] Neutrophils/100 WBC (Bld) 81.1 % High 36.0-66.0 [facility] Comment on above: Performed By: #### P T #### [facility] Lab - [address] [address] Platelet mean volume (Bld) [Entitic vol] 7.7 fL Normal 6.0-9.5 [facility] Comment on above: Performed By: #### P T #### [address] [address] Platelets (Bld) [#/Vol] 187 10 3/uL Normal 150-450 [facility] Comment on above: Performed By: #### P T #### Main Lab - [facility] [address] [place] [address] RBC (Bld) [#/Vol] 4.99 x10 6/uL Normal 4.38-5.71 [facility] Comment on above: Performed By: #### P T #### Main Lab - [facility] [address] [place] [address] WBC (Bld) [#/Vol] 7.0 10 3/uL Normal 4.0-10.5 [facility] Comment on above: Performed By: #### P T #### Main Lab - [facility] [address] [place] [address] COMPREHENSIVE METABOLIC PANE [facility] 06-03-2019 Albumin [Mass/Vol] 3.9 g/dL Normal 3.9-5.0 [facility] Comment on above: Performed By: #### P T #### Main Lab - [address] [address] Albumin/Globulin [Mass ratio] 1.4 {ratio} Normal 1.1-1.8 [facility] Comment on above: Performed By: #### P T #### Main Lab - [address] [address] ALP [Catalytic activity/Vol] 104 U/L Normal 43-122 [facility] Comment on above: Performed By: #### P T #### Main Lab - [facility] [address] [place] [address] ALT/SGPT 78 U/L High 7-56 [facility] Comment on above: Performed By: #### P T #### Main Lab - [facility] [address] [place] [address] Anion gap [Moles/Vol] 15 mmol/L Normal 9-18 [facility] Comment on above: Performed By: #### P T #### Main Lab - [facility] [address] [place] [address] AST/SGOT 58 U/L High 14-50 [facility] Comment on above: Performed By: #### P T #### Main Lab - [facility] [address] [place] [address] Bilirubin [Mass/Vol] 1.0 mg/dL Normal 0.2-1.3 [facility] Comment on above: Performed By: #### P T #### [facility] Lab - [address] [address] Calcium [Mass/Vol] 9.0 mg/dL Normal 8.4-10.2 [facility] Comment on above: Performed By: #### P T #### [facility] Lab - [address] [address] Chloride [Moles/Vol] 103 mmol/L Normal 98-107 [facility] Comment on above: Performed By: #### P T #### [facility] Lab - [address] [address] CO2 [Moles/Vol] 25 mmol/L Normal 22-31 [facility] Comment on above: Performed By: #### P T #### [facility] - [address] [address] Creatinine [Mass/Vol] 1.50 mg/dL High 0.80-1.30 [facility] Comment on above: Performed By: #### P T #### [facility] Lab - [address] [address] ESTIMATED CREAT CLEARANCE 45.29 Normal [facility] Comment on above: Result Comment: COCK CROFT-GAULT FORMULA 1972 Performed By: #### P T #### [facility] - [address] [address] ESTIMATED GLOMERULAR FILT RATE 47.000 mL/min Normal [facility] Comment on above: Performed By: #### P T #### [facility] Lab - [address] [address] Globulin (S) [Mass/Vol] 2.8 g/dL Normal [facility] Comment on above: Performed By: #### P T #### [facility] Lab - [address] [address] Glucose [Mass/Vol] 167 mg/dL High 70-99 [facility] Comment on above: Result Comment: The glucose range is based on recommendations from the [place] [employer] for fasting blood glucose range. Performed By: #### P T #### [facility] Lab - [facility] [address] [place] [address] Potassium [Moles/Vol] 4.0 mmol/L Normal 3.6-5.0 [facility] Comment on above: Performed By: #### P T #### Main Lab - [facility] [address] [place] [address] Protein [Mass/Vol] 6.7 g/dL Normal 6.3-8.2 [facility] Comment on above: Performed By: #### P T #### Main Lab - [facility] [address] [place] [address] Sodium [Moles/Vol] 139 mmol/L Normal 137-145 [facility] Comment on above: Performed By: #### P T #### [facility] - [facility] [address] [place] [address] Urea nitrogen [Mass/Vol] 20 mg/dL Normal 7-21 [facility] Comment on above: Performed By: #### P T #### [facility] Lab - [address] [address] Urea nitrogen/Creatinine [Mass ratio] 13.3 Ratio Normal 5.0-42.0 [facility] Comment on above: Performed By: #### P T #### Main Lab - [facility] [address] [place] [address] Age - Reported [address] [facility] Comment on above: Performed By: #### P T #### [facility] - [facility] [address] [place] [address] CREATINE KINASEon 06-03-2019 CK [Catalytic activity/Vol] 195 U/L High 55-170 [facility] Comment on above: Performed By: #### T ROP 1 #### Main Lab - [facility] [address] [place] [address] CREATINE KINASE MBon 020 CK.MB [Mass/Vol] 4.2 ng/mL High 0.0-3.7 [facility] Comment on above: Performed By: #### T ROP 1 #### Main Lab - [facility] [address] [place] [address] ANGIO CHEST W/CONTRASTon 06-03-2019 CT ANGIO CHEST W/CONTRAST [facility] [address] [place] [address] Diagnostic Imaging Report : [id number] Signed Name: SHAD RODRIGUEZ MRUN: [id number] : 1950 Loc: ED Age / Sex: 68 / M ADM Status: REG ER ADM Date: 06/03/19 Room/Bed: Ordering Physician: Steve Johnson MD Procedure: CT ANGIO CHEST W/CONTRAST Order Number(s): [id number] Ordered Date: 06/03/19 Ordered Time: 1825 EXAMINATION: [...] Signed Date/Time: 06/03/191930 Transcribed Date/Time: 06/03/191927 Normal [facility] CT HEAD W/O CONTRASTon 06-02 CT HEAD W/O CONTRAST [facility] [address] [place], [place] [id number] Diagnostic Imaging Report : [id number] Signed Name: SHAD RODRIGUEZ MRUN: [id number] : 1950 Loc: ED Age / Sex: 68 / M ADM Status: REG ER ADM Date: 06/03/19 Room/Bed: Ordering Physician: Steve Johnson MD Procedure: CT HEAD W/O CONTRAST Order Number(s): [id number] Ordered Date: 06/03/19 Ordered Time: 1720 EXAMINATION: [...] Signed Date/Time: 06/03/191817 Transcribed Date/Time: 06/03/191813 Normal [facility] ED Physician Documentationon 06-03-2019 ED Physician Documentation [address] [place] [address] Physician Documenation Signed:[id number] Name: SHAD RODRIGUEZ MRUN: [id number] : 1950 Loc: ED Age / Sex: 68/ M Adm Status: REG ER Adm Date:06/03/19 Room/Bed: HPI: Syncope - Time Seen by Provider Time Seen by Provider: 06/03/19 17:05 - General Information Information source:: Patient, Emergency Med Personnel Patient limitations: No Limitations - History of Present Illness Initial narrative: 71-year-old male with syncopal episode. 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 He was stopped at a [...] Insulin Reaction, Hypovolemia, Medication Reaction, Metabolic Reaction, PA, Pulmonary Embolism, Seizure, TIA, Vasovagal Episode - [...] Lymph % (Auto) 12.0 L (24.0-44.0) % [place] % (Auto) 6.0 (1.7-9.3) % Eos % (Auto) 0.6 (0.0-5.0) % Baso % (Auto) 0.3 (0.0-1.0) % Neut # (Auto) 5.7 (1.5-6.7) 10 3/uL Lymph # (Auto) 0.8 L (1.0-3.5) 10 3/uL [place] # (Auto) 0.4 (0.2-0.8) 10 3/uL Eos [...] Urine Clarity Urine pH (5.0-8.0) Ur Specific Anton (<1.029) SP.GR. Urine Protein (NEGATIVE) mg/dL Urine [...] (36.0-66.0) % Lymph % (Auto) (24.0-44.0) % [place] % (Auto) (1.7-9.3) % Eos % (Auto) (0.0-5.0) % Baso % (Auto) (0.0-1.0) % Neut # (Auto) (1.5-6.7) 10 3/uL Lymph # (Auto) (1.0-3.5) 10 3/uL [place] # (Auto) (0.2-0.8) 10 3/uL Eos # [...] Urine Clarity Urine pH (5.0-8.0) Ur Specific Anton (<1.029) SP.GR. Urine Protein (NEGATIVE) mg/dL Urine [...] (36.0-66.0) % Lymph % (Auto) (24.0-44.0) % [place] % (Auto) (1.7-9.3) % Eos % (Auto) (0.0-5.0) % Baso % (Auto) (0.0-1.0) % Neut # (Auto) (1.5-6.7) 10 3/uL Lymph # (Auto) (1.0-3.5) 10 3/uL [place] # (Auto) (0.2-0.8) 10 3/uL Eos # [...] Clear Urine pH 6.0 (5.0-8.0) Ur Specific Anton 1.021 (<1.029) SP.GR. Urine Protein 30 H [...] Orders: Orders Category Date Time Status Apply [employer] Portal Developer STAT Care 06/03/19 17:21 Completed Contrast Media Screening Form ONETIME Care 06/03/19 18:27 Completed ED [employer] Developer Q2H Care 06/03/19 17:21 Active EKG - [...] MD, Steve Cortes; BASILIO DO, Unknown Normal [facility] LACTATEon 06-03-2019 Lactate [Moles/Vol] 2.1 mmol/L Normal 0.7-2.4 [facility] Comment on above: Order Comment: @05/13 04/02 1806: R LACTATE Y/N added. RFLXG = LAC YN. Performed By: #### T ROP 1 #### Main Lab - [facility] [address] [place] [address] LIPASEon 06-03-2019 Lipase [Catalytic activity/Vol] 19 U/L Low 23-300 [facility] Comment on above: Performed By: #### T ROP 1 #### Main Lab - [facility] [place], [place] [address] PARTIAL THROMBOPLASTIN TIMEo n 06-03-2019 aPTT Coag (Bld) [Time] 33.3 s Normal 24.1-41.2 [facility] Comment on above: Performed By: #### T ROP 1 #### Main Lab - [facility] [address] [place] [address] PT WITH INRon 06-03-2019 INR Coag (PPP) [Relative time] 3.0 {INR} Normal [facility] Comment on above: Result Comment: ISAAK MMENDED RANGES FOR INR: Therapeutic range for standard therapy INR: 2.0-3.0 Therapeutic range for high dose therapy INR: 2.5-3.5 Performed By: #### T ROP 1 #### Main Lab - [facility] [address] [place] [address] PT Coag (PPP) [Time] 31.1 s High 12.0-14.5 [facility] Comment on above: Performed By: #### T ROP 1 #### Main Lab - [address] [address] TROPONIN Ion 06-03-2019 Troponin I.cardiac [Mass/Vol] ng/mL Normal 0.0-0.03 [facility] Comment on above: Result Comment: Refe rence Interval < or = 0.03 ng/mL Clinical Correlation Needed 0.03 - 0.11 ng/mL AMI Cutoff, Presumptive = or > 0.12 ng/mL Performed By: #### T ROP 1 #### [facility] Lab - [address] [address] URINE PROTOCOLon 06-03-2019 BLOOD,URINE SMALL Abnormal NEGATIVE [facility] Comment on above: Performed By: #### U A w RFX x2, URINE #### [facility] Lab - [address] [address] Clarity (U) CLEAR Normal [facility] Comment on above: Performed By: #### U A w RFX x2, URINE #### [facility] Lab - [address] [address] Color (U) YELLOW Normal [facility] Comment on above: Performed By: #### U A w RFX x2, URINE #### [facility] Lab - [address] [address] Glucose Ql (U) 50 mg/dL Abnormal NEGATIVE [facility] Comment on above: Performed By: #### U A w RFX x2, URINE #### Main Lab - [facility] [address] [place] [address] Ketones Ql (U) TRACE Abnormal NEGATIVE Ivaina [facility] Comment on above: Performed By: #### U A w RFX x2, URINE #### Main Lab - [facility] [address] [place] [address] Leukocyte esterase Test strip Ql (U) Negative Normal NEGATIVE [facility] Comment on above: Performed By: #### U A w RFX x2, URINE #### Main Lab - [facility] [address] [place] [address] NITRITE,URINE Negative Normal NEGATIVE [facility] Comment on above: Performed By: #### U A w RFX x2, URINE #### Main Lab - [facility] [address] [place] [address] pH (U) 6.0 [pH] Normal 5.0-8.0 [facility] Comment on above: Performed By: #### U A w RFX x2, URINE #### Main Lab - [facility] [address] [place] [address] Protein (U) [Mass/Vol] 30 mg/dL Abnormal NEGATIVE [facility] Comment on above: Performed By: #### U A w RFX x2, URINE #### Main Lab - [facility] [address] [place] [address] RBC LM.HPF (Urine sed) [#/Area] 4-10 Abnormal [facility] Comment on above: Performed By: #### U A w RFX x2, URINE #### [facility] Lab - [address] [address] REFLEX TO URINE CULTURE SEE URINE CULTURE Abnormal [facility] Comment on above: Performed By: #### U A w RFX x2, URINE #### [facility] - [facility] [address] [place] [address] Specific gravity (U) [Rel density] 1.021 SP.GR. Normal <1.029 [facility] Comment on above: Performed By: #### U A w RFX x2, URINE #### [facility] - [facility] [address] [place] [address] UROBILINOGEN,URINE Negative Normal <2 mg/dL [facility] Comment on above: Performed By: #### U A w RFX x2, URINE #### Main Lab - [facility] [address] [place] [address] WBC LM.HPF (Urine sed) [#/Area] 0-5 Normal [facility] Comment on above: Result Comment: Unle ss otherwise noted, urine microscopic evaluation is normal. Performed By: #### U A w RFX x2, URINE #### Main Lab - [facility] [address] [place] [address] Waveform Imaging Reporton Waveform Imaging Report [facility] [address] [place] [address] [id number] Waveform Imaging Report : [id number] Signed Name: SHAD RODRIGUEZ MRUN: [id number] : 1950 Loc: 3S Age / Sex: 68 / M ADM Status: ADM Leonor ADM Date: 06/03/19 Room/Bed: [facility] Ordering Physician: Steve Johnson MD Procedure: EKG Order Number(s): [id number] Ordered Date: 06/03/19 Ordered Time: 1721 Test Date: 2019-06-03 17:13:08 Pat Name: SHAD RODRIGUEZ Department: ED Room: [facility] Gender: M 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 Electronically Signed On 06-04-2019 6:06:11 EDT by Ronn Arreola Dictated By: Ronn Arreola DO Dictated Date/Time: 06/03/19 1713 Signed By: Ronn Arreola Signed Date/Time: 06/04/19 0606 Transcribed Date/Time: Normal [facility] XR CHEST, ONE VIEWon 020 XR CHEST, ONE VIEW [facility] [address] [place] [id number] Diagnostic Imaging Report : [id number] Signed Name: SHAD RODRIGUEZ MRUN: [id number] : 1950 Loc: ED Age / Sex: 68 / M ADM Status: REG ER ADM Date: 06/03/19 Room/Bed: Ordering Physician: Steve Johnson MD Procedure: XR CHEST, ONE VIEW Order Number(s): [id number] Ordered Date: 06/03/19 Ordered Time: 172 EXAMINATION: [...] Signed Date/Time: 06/03/191810 Transcribed Date/Time: 06/03/191807 Normal [facility] Protimeon 01-20-2018 INR Coag RelTime (Bld) 1.5 {INR} High 0.9-1.3 [facility] Comment on above: Result Comment: Alexandra min K Antagonist (VKA) Therapeutic Range: INR 2 to 3 (Target INR of 2.5)Note: For patients treated with VKA drugs, such as warfarin, the [place] [employer] 2012 Guideline recommends [...] 2.5 to 3.5 (target INR of 3).Tuan LIZARRAGA, et al. Chest 2012, 141:7S-47SApryl RA, et al. [facility] 2017, 70: 252-289 Performed By: #### P T ####[place] [phone] PT Sec 14.8 sec High 9.7-13.0 [facility] Comment on above: Performed By: #### P T ####[place] [phone] Vital Signs Date Time Vital Sign Value Performing Clinician Facility 07-25-2023 11:38-0400 Body temperature 98.24 [degF] [facility] 07-25-2023 11:38-0400 Diastolic blood pressure 55 mm[Hg] [facility] 07-25-2023 11:38-0400 Heart rate 62 /min [facility] 07-25-2023 11:38-0400 Mean blood pressure 65 mm[Hg] [facility] 07-25-2023 11:38-0400 Respiratory rate 16 /min [facility] 07-25-2023 11:38-0400 SaO2% (BldA) [Mass fraction] 92 % [facility] 07-25-2023 11:38-0400 Systolic blood pressure 86 mm[Hg] [facility] 06-27-2023 13:43-0400 Body temperature 97.7 [degF] [facility] 06-27-2023 13:43-0400 Diastolic blood pressure 80 mm[Hg] [facility] 06-27-2023 13:43-0400 Heart rate 59 /min [facility] 06-27-2023 13:43-0400 Mean blood pressure 95 mm[Hg] [facility] 06-27-2023 13:43-0400 Respiratory rate 16 /min [facility] 06-27-2023 13:43-0400 SaO2% (BldA) [Mass fraction] 97 % [facility] 06-27-2023 13:43-0400 Systolic blood pressure 124 mm[Hg] [facility] 04-15-2023 12:15-0500 Diastolic blood pressure 81 mm[Hg] Jessica Alcaraz [facility] 04-15-2023 12:15-0500 Heart rate 80 /min Mohcarold Emmettuchli [facility] 04-15-2023 12:15-0500 Respiratory rate 16 /min Mohamad Emmettuchli [facility] 04-15-2023 12:15-0500 Systolic blood pressure 168 mm[Hg] Mohcarold Emmettuchli [facility] 05-17-2022 08:00-0400 Blood Pressure Location Yusramanuel HenryCira [facility] 05-17-2022 08:00-0400 Body temperature 97.16 [degF] Yusra Cira [facility] 05-17-2022 08:00-0400 Diastolic blood pressure 81 mm[Hg] Yusra Cira [facility] 05-17-2022 08:00-0400 Heart rate 71 /min Yusramanuel HenryCira [facility] 05-17-2022 08:00-0400 Respiratory rate 16 /min Yusramanuel HenryCira [facility] 05-17-2022 08:00-0400 SaO2% (BldA) [Mass fraction] 96 % Yusra Cira [facility] 05-17-2022 08:00-0400 Systolic blood pressure 131 mm[Hg] Yusra Cira [facility] 12-28-2021 13:04-0500 Blood Pressure Location Dougie Harmon [facility] 12-28-2021 13:04-0500 Body temperature 98.06 [degF] Dougie Harmon [facility] 12-28-2021 13:04-0500 BP/Pulse Patient Position Dougie Harmon [facility] 12-28-2021 13:04-0500 Diastolic blood pressure 89 mm[Hg] Dougie Harmon [facility] 12-28-2021 13:04-0500 Heart rate 89 /min Dougieanna Harmon [facility] 12-28-2021 13:04-0500 Mean blood pressure 104 mm[Hg] Dougie Harmon [facility] 12-28-2021 13:04-0500 Respiratory rate 16 /min Dougieanna Harmon [facility] 12-28-2021 13:04-0500 SaO2% (BldA) [Mass fraction] 96 % Dougieanna Harmon [facility] 12-28-2021 13:04-0500 Systolic blood pressure 135 mm[Hg] Dougie Harmon [facility] 11-16-2021 08:26-0400 Diastolic blood pressure 80 mm[Hg] Yusra Henrymetz [facility] 11-16-2021 08:26-0400 Mean blood pressure 99 mm[Hg] Yusra Cira [facility] 11-16-2021 08:26-0400 Systolic blood pressure 136 mm[Hg] Yusra Cira [facility] 11-16-2021 08:19-0400 Blood Pressure Location Yusra Cira [facility] 11-16-2021 08:19-0400 Body temperature 97.7 [degF] Yusra Cira [facility] 11-16-2021 08:19-0400 Diastolic blood pressure 82 mm[Hg] Yusra Cira [facility] 11-16-2021 08:19-0400 Heart rate 72 /min Yusra Cira [facility] 11-16-2021 08:19-0400 Systolic blood pressure 142 mm[Hg] Yusra Denis [facility] 10-05-2021 10:35-0400 Diastolic blood pressure 93 mm[Hg] Plascencia SALAM [facility] 10-05-2021 10:35-0400 Heart rate 64 /min Plascencia SALAM [facility] 10-05-2021 10:35-0400 Respiratory rate 12 /min Plascencia SALAM [facility] 10-05-2021 10:35-0400 SaO2% (BldA) [Mass fraction] 96 % Plascencia SALAM [facility] 10-05-2021 10:35-0400 Systolic blood pressure 138 mm[Hg] Plascencia SALAM [facility] 10-05-2021 10:25-0400 Diastolic blood pressure 86 mm[Hg] Plascencia SALAM [facility] 10-05-2021 10:25-0400 Heart rate 62 /min Plascencia SALAM [facility] 10-05-2021 10:25-0400 Respiratory rate 16 /min Plascencia SALAM [facility] 10-05-2021 10:25-0400 SaO2% (BldA) [Mass fraction] 96 % Plascencia SALAM [facility] 10-05-2021 10:25-0400 Systolic blood pressure 145 mm[Hg] Plascencia SALAM [facility] 10-05-2021 10:11-0400 Diastolic blood pressure 96 mm[Hg] Plascencia SALAM [facility] 10-05-2021 10:11-0400 Heart rate 74 /min Plascencia SALAM [facility] 10-05-2021 10:11-0400 Respiratory rate 19 /min Plascencia SALAM [facility] 10-05-2021 10:11-0400 SaO2% (BldA) [Mass fraction] 96 % Plascencia SALAM [facility] 10-05-2021 10:11-0400 Systolic blood pressure 126 mm[Hg] Plascencia SALAM [facility] 10-05-2021 09:47-0400 Blood Pressure Location Plascencia SALAM [facility] 10-05-2021 09:47-0400 Body temperature 97.34 [degF] Plascencia SALAM [facility] 10-05-2021 09:40-0400 Respiratory rate 14 /min Plascencia SALAM [facility] 10-05-2021 09:35-0400 Respiratory rate 15 /min Plascencia SALAM [facility] 10-05-2021 09:30-0400 Respiratory rate 16 /min Plascencia SALAM [facility] 10-05-2021 08:58-0400 Blood Pressure Location Plascencia SALAM [facility] 10-05-2021 08:58-0400 Body temperature 97.88 [degF] Plascencia SALAM [facility] 07-19-2021 08:51-0400 Blood Pressure Location Yusra Cira [facility] 07-19-2021 08:51-0400 Body temperature 97.34 [degF] Yusramanuel HenryCira [facility] 07-19-2021 08:51-0400 Diastolic blood pressure 85 mm[Hg] Yusra Denis [facility] 07-19-2021 08:51-0400 Heart rate 74 /min Yusra Denis [facility] 07-19-2021 08:51-0400 SaO2% (BldA) [Mass fraction] 98 % Yusra Denis [facility] 07-19-2021 08:51-0400 Systolic blood pressure 129 mm[Hg] Yusra Denis [facility] Encounters Encounter Date Encounter Type Care Provider Facility Start: 09-08-2024 ambulatory Jessica Tovar lity:[facility] Start: 08-27-2024 End: 08-27-2024 ambulatory Dougie Harmon Facility[facility] Start: 08-21-2024 End: 08-21-2024 ambulatory Dougie Harmon Facility:[facility] Start: 08-18-2024 End: 08-18-2024 ambulatory [facility] Start: 08-13-2024 End: 08-13-2024 ambulatory Dougie Harmon [facility] Start: 08-13-2024 End: 08-13-2024 Patient encounter procedure Dougie Harmon [facility] Start: 08-11-2024 End: 08-11-2024 ambulatory [address] [facility] Start: 07-22-2024 End: 07-22-2024 ambulatory Dougie Harmon Facility:[facility] Start: 07-22-2024 End: 07-22-2024 Patient encounter procedure Dougie Harmon [facility] Start: 07-21-2024 End: 07-21-2024 ambulatory Dougie Harmon Facility:[facility] Start: 07-21-2024 End: 07-21-2024 Patient encounter procedure Dougie Harmon [facility] Start: 07-17-2024 ambulatory [facility] Start: 07-17-2024 ambulatory [facility] Start: 06-23-2024 ambulatory [facility] Start: 05-12-2024 ambulatory [facility] Start: 04-09-2024 ambulatory [facility] Start: 03-30-2024 ambulatory [facility] Start: 03-09-2024 ambulatory [facility] Start: 02-20-2024 ambulatory [facility] Start: 02-18-2024 ambulatory [facility] Start: 01-21-2024 ambulatory [facility] Start: 01-06-2024 ambulatory [facility] Start: 12-26-2023 ambulatory [facility] Start: 12-11-2023 ambulatory [facility] Start: 11-20-2023 ambulatory [facility] Start: 11-20-2023 Encounter for preprocedural cardiovascular examination [facility] Start: 10-30-2023 ambulatory [facility] Start: 10-29-2023 ambulatory [facility] Start: 09-16-2023 ambulatory [facility] Start: 09-12-2023 End: 09-12-2023 ambulatory MARQUIS ARREOLA Not Available Start: 07-25-2023 End: 07-25-2023 ambulatory Dougie Harmon Facility:[facility] Start: 07-25-2023 End: 07-25-2023 Patient encounter procedure Dougie Harmon [facility] Start: 07-23-2023 ambulatory Dougie Harmon Facil ity:[facility] Start: 07-23-2023 End: 07-23-2023 Patient encounter procedure Dougie Harmon [facility] Start: 07-06-2023 End: 07-06-2023 ambulatory Dougie Harmon Facility:[facility] Start: 07-06-2023 End: 07-06-2023 Patient encounter procedure Dougie Harmon [facility] Start: 07-02-2023 End: 07-02-2023 ambulatory ELEAZAR FERNANDEZBES Facility:[facility] Start: 07-02-2023 End: 07-02-2023 Patient encounter procedure ELEAZAR WILLIS [facility] Start: 06-27-2023 End: 06-27-2023 Patient encounter procedure Dougie Harmon [facility] Start: 06-25-2023 End: 06-25-2023 ambulatory JESSICA ALCARAZ Facility:[facility] Start: 06-25-2023 End: 06-25-2023 Admission to same day surgery center Nanci Miller APRN.CNP Work Phone: Colorectal Surgery Start: 06-25-2023 End: 06-25-2023 Patient encounter procedure Nanci Miller APRN.CNP Work Phone: Colorectal Surgery Comment on above: Abdominal bloating ( Primary Dx); Alternating constipation and diarrhea; Personal history of rectal cancer; Low anterior resection syndrome Start: 05-03-2023 End: 06-11-2023 Pre-admission assessment YCNTHIA AGUILA [facility] Start: 04-26-2023 Telephone encounter Nanci Tayo CANDELARIACHARGE LOADER Work Phone: Colorectal Surgery Start: 04-23-2023 End: 04-23-2023 Patient encounter procedure Jessica Alcaraz [facility] Start: 04-19-2023 End: 04-19-2023 Patient encounter procedure Jessica Alcaraz [facility] Start: 04-15-2023 End: 04-15-2023 Patient encounter procedure Jessica Alcaraz [facility] Start: 06-15-2022 End: 06-15-2022 Patient encounter procedure Yusra Denis [facility] Start: 05-17-2022 End: 05-17-2022 Patient encounter procedure Yusra Denis [facility] Start: 02-28-2022 End: 12-31-2022 Recurring Aggie Reneyariel [facility] Start: 12-28-2021 End: 12-28-2021 Patient encounter procedure Dougie Harmon [facility] Start: 12-27-2021 End: 12-27-2021 Patient encounter procedure Dougie Harmon [facility] Start: 12-22-[address] SHAD DYSON Facility :[facility] Start: 12-14-2021 End: 12-14-[address] SHAD DYSON Facility:[facility] Start: 11-16-2021 End: 11-16-2021 Patient encounter procedure Yusra Denis [facility] Start: 10-05-2021 End: 10-05-2021 Patient encounter procedure Thais SANCHEZ [facility] Start: 07-19-2021 End: 07-19-2021 Patient encounter procedure Yusra Denis [facility] Start: 06-23-2021 End: 06-23-2021 Patient encounter procedure Dougie Harmon [facility] Start: 06-14-2021 End: 06-14-2021 Patient encounter procedure Dougie Harmon [facility] Start: 02-14-2021 End: 02-26-2022 Recurring Aggie Lynn [facility] Start: 01-20-2018 Patient encounter procedure [facility] Procedures Date Procedure Procedure Detail Performing Clinician Start: 06-25-2023 ADULT [place] ANORECTAL MANOMETRY Nanci Miller APRN.CNP Work Phone: Start: 10-05-2021 Colonoscopy Thais SANCHEZ Start: 03-02-2017 Colonoscopy Yusra Henrymetz colostomy reversal Dougie rousseau Esophagogastroduoden oscopy gastric outlet reduction Yusra Denis Pacemaker battery (physical object) Dougie Harmon Plan of Treatment Date Care Activity Detail Author Start: 12-06-2023 Creatinine measurement Serum Creatinine [facility] Start: 10-13-2023 Influenza vaccination Influenza Vaccine (Season Ended) [facility] Start: 02-11-2023 Advance Directive Discussion Advance Directive Discussion [facility] Start: 02-11-2023 Behavioral Health Screening Behavioral Health Screening [facility] Start: 02-11-2023 Depression Assessment Depression Assessment [facility] Start: 10-12-2022 Covid-19 Vaccine () Covid-19 Vaccine () [facility] Start: 10-12-2022 Covid-19 Vaccine () Covid-19 Vaccine () [facility] Start: 10-12-2022 Influenza vaccination Influenza Vaccine (#1) [facility] Start: 03-12-2022 Shingrix Vaccine (2 of 2) Shingrix Vaccine (2 of 2) [facility] Start: 08-19-2021 Creatinine measurement Serum Creatinine [facility] Start: 09-15-2020 Screening for malignant neoplasm of colon [facility] Start: 06-28-2020 Urine microalbumin profile DTaP,Tdap,Td Vaccine (1 - Tdap) [facility] Start: 12-28-2018 Hemoglobin A1c measurement HbA1C [facility] Start: 01-29-2017 Pneumococcal Vaccine: 65+ (2 of 2 - PCV) Pneumococcal Vaccine: 65+ (2 of 2 - PCV) [facility] Start: 2012 RSV Vaccine (1 - 1-dose 60+ series) RSV Vaccine (1 - 1-dose 60+ series) [facility] Start: 2002 Shingrix Vaccine (1 of 2) Shingrix Vaccine (1 of 2) [facility] Start: 1997 Screening for malignant neoplasm of colon [facility] Start: 11-05-1971 Urine microalbumin profile DTaP,Tdap,Td Vaccine (1 - Tdap) [facility] Start: 1970 Annual PCP Team Chronic Disease Visit Annual PCP Team Chronic Disease Visit [facility] Start: 1970 BP Controlled (<130/80) BP Controlled (<130/80) [facility] Start: 1970 Hepatitis B surface antibody level LDL Cholesterol [facility] Start: 1970 Hepatitis C screening Hepatitis C Screening [facility] Start: 1962 Diabetic foot examination Diabetic Foot Exam [facility] Start: 1962 Glaucoma screening Dilated Retinal Exam [facility] Start: 1962 Hepatitis B screening Urine Albumin:Creatinine Ratio [facility] ANORECTAL MANOMETRY ADULT [place] ANORECTAL MANOMETRY Endoscopy Routine Abdominal bloating Incontinence of feces with fecal urgency 06/25/2023 [facility] Work Phone: Immunizations Immunization Date Immunization Notes Care Provider Cristal rosen 01-15-2022 influenza virus vaccine, unspecified formulation Yusramanuel HenryCira [facility] 01-15-2022 zoster vaccine recombinant Yusra Rinconz [facility] 01-11-2021 influenza, unspecifi ed formulation Yusra Rinconz [facility] 07-22-2020 SARS-CoV-2 (COVID-19 ) mRNA BNT-162b2 vax Yusra Denis [facility] Comment on above: Result Comment: 2021: [id number] 06-30-2020 SARS-CoV-2 (COVID-19 ) mRNA BNT-162b2 vax Yusra Denis [facility] Comment on above: Result Comment: 2021: [id number] 06-27-2020 tetanus and diphther ia toxoids, adsorbed, preservative free, for adult use (2 Lf of tetanus toxoid and 2 Lf of diphtheria toxoid) Yusramanuel HenryCira [facility] 11-14-2019 influenza virus vaccine, unspecified formulation Yusra Cira [facility] 10-31-2018 influenza virus vaccine, unspecified formulation Yusramanuel HenryCira [facility] 10-31-2018 pneumococcal polysaccharide vaccine, 23 valent Yusra Denis [facility] 10-22-2017 influenza virus vaccine, unspecified formulation Yusra Cira [facility] 10-22-2017 pneumococcal conjuga te vaccine, 13 valent Yusra Denis [facility] 12-07-2016 influenza, unspecifi ed formulation Yusra Denis [facility] 01-30-2016 influenza, injectabl e, quadrivalent, preservative free Nanci Miller [employer]EL[employer].CHARGE LOADER Work Phone: [facility] 01-30-2016 pneumococcal polysaccharide vaccine, 23 valent Nanci Miller [employer] DEVELOPER.CHARGE LOADER Work Phone: [facility] 01-30-2016 influenza virus vaccine, unspecified formulation Nanci Miller [employer] DEVELOPER.CHARGE LOADER Work Phone: [facility] NEGATED: Highlighted row has not occurred!11-16-2021 influenza virus vaccine, unspecified formulation Yusra Denis [facility] Payers Date Payer Category Payer Private Health Insurance [id number] 2019 Unknown MMO MMO MEDICARE SUPPLEMENT [id number] 2019-Present [phone] [address] [place] [address] Indemnity [id number] 2017 Medicare [id number] 1959 Medicare [id number] 1959 Self-pay 1959 Unknown [id number] 1952 Unknown [id number]. [id number] 1952 Unknown [id number]. 593 1952 Unknown [id number]. 727 1952 Unknown [id number]. 727 1952 Unknown [id number] [id number]. 1259 1952 Unknown [id number] [id number]. 727 1952 Unknown [id number] [id number]. 727 1952 Unknown [id number] [id number]. 727 1952 Unknown [id number] [id number]. 727 1952 Unknown [id number] [id number]. 727 1952 Unknown [id number]. 727 1952 Unknown [id number]. 727 Social History Date Type Detail Facility Tobacco Never smoker [facility] Comment on above: denies current use Start: 01-20-2020 End: 09-05-2020 Sex Assigned At Male [facility] Start: 07-19-2021 End: 07-22-2024 Tobacco smoking status Never smoked tobacco (finding) [facility] Comment on above: denies current use [facility] Start: 06-27-2015 Tobacco use and exposure Smoke less tobacco non-user [facility] Start: 09-05-2020 End: 06-25-2023 Alcohol intake Current non-drinker of alcohol (finding) [facility] Start: 01-20-2020 End: 09-05-2020 History of Social function [facility] Start: 1950 Sex Assigned At Not on file C [facility] Sexual Orientation [facility] Start: 07-06-2009 Sex Male (finding) [facility] Medical Equipment Procedure Code Equipment Code Equipment Origin al Text Equipment Identifier Dates Mesh Prolene Squ are Flat [id number] Surgical Knit Nonabsorbable Nonreactive - [id number] Start: 08-12-2020 Functional Status Date Assessment Result Facility 04-15-2023 Functional Status N/A [facility] 05-17-2022 Functional Status N/A [facility] 11-16-2021 Functional Status N/A [facility] 10-05-2021 Functional Status N/A [facility] Clinical Notes 08-12-2020 to 08-27-2024 Nanci Miller APRN.[facility] - 06/25/2023 11:43 AM EDTPatient InstructionsNanci Miller APRN.[facility] - 06/25/2023 11:06 AM EDTTelephone Encounter - Sherrell Teresa - 04/26/2023 1:09 PM EDT Note Date & Type Note Facility 08-27-2024 Note Oncology Progress No te Chief Complaint pt here for a follow up on Colon ca, see Dr. Alcaraz today. Oncological History/ROS/PE/Assessment and Plan 73 year old [...] cancer. [facility] as our local Dr. Alcaraz. EGD: 10/05/21 Colonoscopy: 10/05/21 Followup at [facility] rectal team showed normal rectal manometry. He has been trying their recommended fiber. they diagnose with low anterior resection syndrome. 07/22/24 he has had increasing ascites. He admits he needs to get a paracentesis soon. He is getting his winter home ready in [place]. He also goes to [place] for a month in the winter. he continues with occasional diarrhea. He overall seems to be much better than last year although his abdomen severely distended now. no prior cirrhosis diagnosis. He has never had ascites before. 08/27/24 he continues with complaint of abdominal distention. now notes a hoarse voice. he continues to be active. He has noted a little less steady on his feet. he is exercising intentionally regularly to maintain. ct c/a/p with cotnrast notes INTERVAL DEVELOPMENT OF ILL-DEFINED LOW-ATTENUATION AREA POSTEIOR SEGMENT RIGHT HEPATIC LOBE. FINDING MAY REPRESENT HEPATIC STEATOSIS. HOWEVER, GIVEN CLINICAL HISTORY, EARLY METASTATIC MALIGNANCY IS NOT ENTIRELY EXCLUDED. CLINICAL CORRELATION RECOMMENDED. 6 MM PLEURAL-BASED RIGHT MIDDLE LOBE NODULE, UNCHANGED FROM 202. FINDINGS: Right lun mm pleural-based noncalcified nodule right middle lobe, marginated superiorly by major fissure, unchanged from 202 (series 5, image 79). No consolidation, pleural effusion, pneumothorax. Left lung: No nodules, masses, consolidation, pleural effusion, pneumothorax. Lymph nodes: No hilar, mediastinal, or axillary lymph node enlargement. Calcified lymph nodes left hilum, and left subcarinal space. Thoracic aorta: Normal in course and caliber. Cardiac: Size normal. No pericardial effusion. Pacemaker wires identified right atrium and right ventricle. No coronary artery calcification. Musculoskeletal:No osteoblastic, and no osteolytic lesions. Liver: Normal in size, shape. Ill-defined area of decreased attenuation visualized within posterior segment right hepatic lobe (series 2, images 55 through 65) not present on prior study. Posterior portal veins anterior segment unchanged in course and caliber. Bile Ducts: Normal in caliber. Gallbladder: No stones or wall thickening. Pancreas: Normal without masses, cysts, ductal dilatation or calcification. Spleen: Normal in size without masses or calcifications. No splenules. Kidneys: Normal in size and enhancement. No hydronephrosis, masses, or stones. End centimeter cortical cyst left kidney, unchanged. Adrenals: Normal. Small bowel: Normal in caliber. Appendix: Normal. Colon: Normal in caliber. Peritoneum: No ascites, free air, or fluid collections. Retroperitoneal: No enlarged retroperitoneal lymph nodes. Mesenteric: No enlarged mesenteric lymph nodes. Pelvic: No enlarged pelvic lymph nodes. PHYSICAL EXAMINATION ECOG PS: General: Alert and [...] [facility] empha (more content not included)... [facility] Comment on above: Result Comment: Elec tronically Signed By: Dougie Harmon DO\.pavan\Date and Time Signed: 08/27/24 10:23 EDT 08-11-2024 Note Cardiovascular Medic [facility] SUBJECTIVE Chief Complaint Patient presents with Congestive Heart Failure Coronary Artery Disease Hypertension Shad Rodriguez is a 73 y.o. male here for follow-up. HPI PMHx: HFrEF s/p dual chamber ICD, NSVT, CAD, HTN, hx PE/DVT, factor V leiden, HLD, DM type II, CKD 08/11/2024 Patient is here today for 1 year follow up. Patient states he is seeing a gastrologist at [facility] due to stomach bloating. Patient states [...] stable. He recently obtained a home in [place]. He plans to travel to this home in the winter. [place] will be noted as his permanent residence. He noted he was having diarrhea in [place]. Now he is having constipation issues. At his last visit, Dr. Clayton advised he stop amio but he has not done this yet. Denies palpitations, orthopnea, PND, syncope, bleeding issues. Last HPI per Dr. Clayton 07/30/2023 Shad Rodriguez is a 72 y.o. [...] at that time was initially evaluated in [facility] for nonsustained [place] cardiac cath at that [...] well. He is hoping to travel to [place] in a couple weeks. He tested positive [...] (CMS/HCC) Acid reflux Atherosclerotic heart disease of [place] coronary artery without angina pectoris Bloating Cardiomyopathy [...] tobacco: Never Subs (more content not included)... [facility] 08-11-2024 Note Patient is here toda y for 1 year follow up. Patient states he is seeing a gastrologist at [facility] due to stomach bloating. Patient states [...] exertion and leg swelling (bilateral leg pain). [facility] 08-01-2024 Note Oncology Progress No te [...] cancer. [facility] our local Dr. Alcaraz. EGD: 10/05/21 Colonoscopy: 10/05/21 Followup at [facility] rectal team showed normal rectal manometry. He has been trying their recommended fiber. they diagnose with low anterior resection syndrome. 07/22/24 he has had increasing ascites. He admits he needs to get a paracentesis soon. He is getting his winter home ready in [place]. He also goes to [place] for a month in the winter. he [...] [facility] emphasized fiber use. 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 [facility] 02-28-2024 Note [facility] 06-27-2023 Hospital Discharge instructions Follow Up Care 06/27/2023 14:46:38 With:Dougie Harmon DO, ONC Address: [facility] [address] [place] [address] [phone]- [phone] Fax Business (1) When: Unknown Comments:f/u in 6 months.no imaigng.cbc, cmp, cea, iron studies, b12, foalte prior to f/u. [facility] 06-25-2023 Note HNO ID: [id number] Author: NANCI MILLER APRN.CHARGE LOADER Service: ? Author Type: Nurse Practitioner Type: Progress Notes Filed: 06/25/2023 11:47 Note Text: Outside referral for ARM. Scanned into [facility] 06-25-2023 Note HNO ID: [id number] Author: NANCI MILLER APRN.CHARGE LOADER Service: ? Author Type: Nurse Practitioner Type: [...] use: No Phy (more content not included)... [facility] 06-25-2023 History of Present illness Narrative Outside referral for ARM. Scanned into [employer] documented in this encounter [facility] 06-25-2023 Instructions Nanci Miller APRN.CNP - [...] provider as planned. documented in this encounter [facility] 06-25-2023 History of Present illness Narrative [...] your referring provider as planned. Nanci Miller APRN.ISIDRA Pelvic Floor Colorectal Surgery I spent a total of 60 minutes on the date of the service which included preparing to see the patient, [id number] patient care, completing clinical documentation, obtaining and/or reviewing separately obtained history, performing a medically appropriate examination, counseling and educating the patient/family/caregiver, ordering medications, tests, or procedures, and communicating results to the patient/family/caregiver. documented in this encounter [facility] 04-26-2023 Miscellaneous Notes Called and LVM regarding referral for Manometry by Kei Franco. documented in this encounter [facility] 08-21-2022 Evaluation + Plan note Extrac lo from: [facility] Author:Aggie Hollingsworth Date: 08/21/22 Impression and [...] stroke: no 4. Serious co-morbid conditions (recent PA, anemia with Hct <30%, CRI with SCr [...] PT 03/06/22 * Vitamin B12 Level 06/27/22 [facility]05-17-2023 Hospital Discharge instructions Follow Up Care 06/27/2022 14:31:43 With:Dougie Harmon DO, ONC Address: [facility] [address] [place] [address] [phone]- [phone] Fax Business (1) When: Unknown Comments:ct a/p with contrast soon.f/u aftercbc, cmp, cea, iron studies, b12, foalte, lipase prior to f/u. [facility]04-06-2023 Hospital Discharge instructions Patient Education 05/17/2022 [...] who treats conditions of the digestive system (sock mender). Follow these instructions at home: Take swpn-eky-denofrv and prescription medicines only as told by [...] 08/27/2017 Document Revised: 01/10/2018 Document Reviewed: 10/15/2017 Simple Patient Education 2020 [employer] Follow Up Care 11/16/2021 08:43:43 With:Yusra Denis CNP Address: When:1 month [facility] 10-06-2022 Hospital Discharge instructions [...] 10/24/2004 Document Revised: 05/15/2018 Document Reviewed: 05/15/2018 Simple Patient Education 2020 [employer]. Follow Up Care 10/10/2021 11:02:12 With:Yusra Denis CNP Address: When:6 months [facility] 08-25-2022 Evaluation + Plan noteExtracted from: Title:CARMEN POSTOP Author:Dangelo Morel DO Date: 10/05/21 Plan Transfer/ Discharge: Patient can be discharged from PACU when criteria met. Condition good. Extracted from: Title:CARMEN PREOP Author:Dangelo Morel DO Date: Plan [place] [employer]hes[employer] (ASA) physical status classification: [...] 01/09/22 * PT 02/06/22 * PT 03/06/22 [facility]08-25-2022 Hospital Discharge instructions Patient Education 10/05/2021 09:56:38 Colonoscopy, Care After Surgery Salam (CUSTOM) Colonoscopy Care After Surgery Please read the instructions outlined below and refer to this sheet in the next few weeks. These discharge instructions provide you with general information on [facility] Your doctor may also give you [...] day. Follow Up Care 07/19/2021 09:30:23 With:Thais SANCHEZ Address: [facility] [address] [place] [address] Business (1) When: Unknown Comments:OFFICE WILL CALL DATE AND TIME OF FOLLOW-UP APPT. [facility]06-08-2022 Hospital Discharge instructions Patient Education 07/19/2021 [...] Follow these instructions at home: Medicines Take bwuq-[id number] and prescription medicines only as told by your health care provider. If you were prescribed an antibiotic medicine, take it as told by your health care provider. Do notstop taking the antibiotic even if you start to feel better. Eating and drinking Follow any diet changes as told by your health care provider. Work with a diet and marketing project specialist (dietitian) to create an eating plan [...] 01/25/2001 Document Revised: 06/24/2019 Document Reviewed: 06/24/2019 Simple Patient Education 2020 [employer]. Follow Up Care 07/11/2021 11:18:24 With:Yusra Denis CNP Address: When:1 month [facility] 05-16-2022 Hospital Discharge instructions Follow Up Care 06/26/2021 10:32:10 With:Dougie Harmon Address: [facility] [address] [place] [address]. [place] [phone] Fax Business (1) When: Unknown Comments:cbc, cmp, cea in 6mofollow-up in 6mo [facility]03-22-2022 Evaluation + Plan noteExtracted from: Title:- [facility] H&P Author:Aggie Hollingsworth Date :05/02/21 Impression [...] stroke: no 4. Serious co-morbid conditions (recent PA, anemia with Hct <30%, CRI with SCr > 1.5, DM): yes hx of cancer Score = 2//4 Risk (low = 0, mod = 1-2, high = 3-4) Future Appointments Appointment Date:02/27/2022 07:30:00 AM Scheduled Provider: [facility] Appoint[facility] Type:Anticoagulation [place] [phone] () Appointment Date:05/17/2022 08:00:00 AM Scheduled Provider:Yusra Denis CNP Location:[facility] Appointment Type:[facility] Follow Up Appointment Date:06/27/2022 01:30:00 PM Scheduled Provider:Dougie Harmon DO Location:FT.ONCOLOGY Appointment [...] 01/09/22 * PT 02/06/22 * PT 03/06/22 [facility]07-02-2021 History of Past illness Narrative* Problem [...] of this encounter (statuses as of 04/26/2023) [facility] Future Appointments Appointment Date:06/19/2021 09:00:00 AM Scheduled Provider:Purnima Borden [facility] Type:ONC Office Visit 15 (FT) Appointment Date:06/23/2021 08:45:00 AM Scheduled Provider: [facility] Appointment Type:Anticoagulation Follow Up 15 (FT) Future Scheduled Tests Laboratory* PT 03/07/21 * PT 04/04/21 * PT 05/02/21 * PT 05/30/21 * PT 06/27/21 * PT 07/25/21 * PT 08/22/21 * PT 09/19/21 * PT 10/17/21 * PT 11/14/21 * PT 12/12/21 * PT 01/09/22 * PT 02/06/22 * PT 03/06/22 [facility] Future Appointments Appointment [...] 01/09/22 * PT 02/06/22 * PT 03/06/22 [facility] Future Appointments Appointment Date:08/08/2021 08:30:00 AM Scheduled Provider: [facility] Appointment Type:Anticoagulation Follow Up 15 (FT) Appointment Date:08/28/2021 12:50:00 PM Scheduled Provider: Location:[facility] Appointment Type:Surgery FT Appointment Date:12/28/2021 01:00:00 PM Scheduled Provider:Dougie Harmon DO [facility] Type:ONC Office Visit 15 [...] 01/09/22 * PT 02/06/22 * PT 03/06/22 [facility] Evaluation + Plan note Future Appointments Appointment Date:11/24/2021 09:30:00 AM Scheduled Provider: [facility] Appointment Type:Anticoagulation Follow Up 15 (FT) Appointment Date:12/28/2021 01:00:00 PM Scheduled Provider:Dougie Harmon DO [facility] Type:ONC Office Visit 15 (FT) Appointment Date:05/17/2022 08:00:00 AM Scheduled Provider:Yusra Denis CNP Location:[facility] Appointment Type:[facility] Follow Up Future Scheduled Tests Laboratory* CBC w/ Auto Diff 12/27/21 * CEA 12/27/21 * Comprehensive Metabolic Panel 12/27/21 * PT 03/07/21 * PT 04/04/21 * PT 05/02/21 * PT 05/30/21 * PT 06/27/21 * PT 07/25/21 * PT 08/22/21 * PT 09/19/21 * PT 10/17/21 * PT 11/14/21 * PT 12/12/21 * PT 01/09/22 * PT 02/06/22 * PT 03/06/22 [facility] Evaluation + Plan note Future Appointments Appointment Date:12/28/2021 01:00:00 PM Scheduled Provider:Dougie Harmon DO Location:.ONCOLOGY Appointment Type:ONC Office Visit 15 (FT) Appointment Date:01/09/2022 09:00:00 AM Scheduled Provider: [facility] Appoint[facility] Type:Anticoagulation Follow Up 15 (FT) Appointment Date:05/17/2022 08:00:00 AM Scheduled Provider:Yusra Denis CNP Location:[facility] Appointment Type:[facility] Follow Up Future Scheduled Tests Laboratory* PT 03/07/21 * PT 04/04/21 * PT 05/02/21 * PT 05/30/21 * PT 06/27/21 * PT 07/25/21 * PT 08/22/21 * PT 09/19/21 * PT 10/17/21 * PT 11/14/21 * PT 12/12/21 * PT 01/09/22 * PT 02/06/22 * PT 03/06/22 [facility] Future Appointments Appointment Date:01/09/2022 09:00:00 AM Scheduled Provider: [facility] Appointment Type:Anticoagulation Follow Up 15 (FT) Appointment Date:05/17/2022 08:00:00 AM Scheduled Provider:Yusra Denis CNP Location:[facility] Appointment Type:[facility] Follow Up Appointment Date:06/27/2022 01:30:00 PM Scheduled Provider:Dougie Harmon DO [facility] Type:ONC Office Visit 15 (FT) Future Scheduled Tests Laboratory* PT 03/07/21 * PT 04/04/21 * PT 05/02/21 * PT 05/30/21 * PT 06/27/21 * PT 07/25/21 * PT 08/22/21 * PT 09/19/21 * PT 10/17/21 * PT 11/14/21 * PT 12/12/21 * PT 01/09/22 * PT 02/06/22 * PT 03/06/22 [facility] Future Appointments Appointment Date:06/01/2022 09:30:00 AM Scheduled Provider: [facility] Appoint[facility] Type:Anticoagulation Follow Up 15 (FT) Appointment Date:06/15/2022 08:00:00 AM Scheduled Provider:Yusra Denis CNP Location:[facility] Appointment Type:[facility] Follow Up Appointment Date:06/27/2022 02:00:00 PM Scheduled Provider:Dougie Harmon DO [facility] Type:ONC Office Visit 15 [...] PT 03/06/22 * Vitamin B12 Level 05/17/22 [facility] Evaluation + Plan note Future Appointments Appointment Date:06/27/2022 08:20:00 AM Scheduled Provider:Yusra Denis CNP Location:[facility] Appointment Type:BAD Follow Up Appointment Date:06/27/2022 02:00:00 PM Scheduled Provider:Dougie Harmon DO [facility] Type:ONC Office Visit 15 (FT) Appointment Date:07/10/2022 09:30:00 AM Scheduled Provider: [facility] Appointment Type:Anticoagulation Follow Up 15 (FT) Future [...] PT 03/06/22 * Vitamin B12 Level 05/17/22 [facility] Evaluation + Plan note Future Appointments Appointment Date:06/27/2023 02:00:00 PM Scheduled Provider:Dougie Harmon DO Location:FT.ONCOLOGY Appointment Type:ONC Office Visit 15 (FT) Future Scheduled Tests Laboratory* PT 04/30/22 * PT 05/31/22 * PT 06/30/22 * Vitamin B12 Level 06/27/22 Radiology* CT Abdomen/Pelvis w/ + w/o Contrast 04/15/23 [facility] Evaluation + Plan note Future Appointments Appointment Date:04/23/2023 12:00:00 PM Scheduled Provider: Location:FT.CAT SCAN Appointment Type:CT Abdomen/Pelvis Combo (FT) Appointment Date:06/27/2023 02:00:00 PM Scheduled Provider:Dougie Harmon DO Location:.ONCOLOGY Appointment Type:ONC Office Visit 15 (FT) Future Scheduled Tests Laboratory* PT 04/30/22 * PT 05/31/22 * PT 06/30/22 * Vitamin B12 Level 06/27/22 Radiology* CT Abdomen/Pelvis w/ + w/o Contrast 04/23/23 [facility] Future Appointments Appointment Date:06/27/2023 02:00:00 PM Scheduled Provider:Dougie Harmon DO Location:.ONCOLOGY Appointment Type:ONC Office Visit 15 (FT) Future Scheduled Tests Laboratory* PT 04/30/22 * PT 05/31/22 * PT 06/30/22 * Vitamin B12 Level 06/27/22 [facility] Future Appointments Appointment Date:06/27/2023 02:00:00 PM Scheduled Provider:Dougie Harmon DO Location:.ONCOLOGY Appointment Type:ONC Office Visit 15 (FT) Future Scheduled Tests Laboratory* PT 06/30/22 * Vitamin B12 Level 06/27/22 [facility] Future Appointments Appointment [...] 07/25/23 Radiology* CT Abdomen/Pelvis w/ Contrast 06/28/23 [facility] Future Appointments Appointment Date:07/06/2023 10:00:00 AM Scheduled Provider: Location:.CAT SCAN Appointment Type:CT Abdomen/Pelvis Combo (FT) Appointment Date:07/25/2023 11:30:00 AM Scheduled Provider:Dougie Harmon DO [facility] Type:ONC Office Visit 30 (FT) Future Scheduled Tests Laboratory* CBC w/ Auto Diff 07/25/23 * CEA 07/25/23 * Comprehensive Metabolic Panel 07/25/23 * Ferritin 07/25/23 * Folate Level 07/25/23 * Iron Level 07/25/23 * Iron Percent Saturation 07/25/23 * Lipase Level 07/25/23 * PT 06/30/22 * Transferrin 07/25/23 * Vitamin B12 Level 07/25/23 Radiology* CT Abdomen/Pelvis w/ Contrast 07/06/23 [facility] Future Appointments Appointment Date:07/25/2023 11:30:00 AM Scheduled Provider:Dougie Harmon DO [facility] Type:ONC Office Visit 30 (FT) Future Scheduled Tests Laboratory* CBC w/ Auto Diff 07/25/23 * CEA 07/25/23 * Comprehensive Metabolic Panel 07/25/23 * Ferritin 07/25/23 * Folate Level 07/25/23 * Iron Level 07/25/23 * Iron Percent Saturation 07/25/23 * Lipase Level 07/25/23 * PT 06/30/22 * Transferrin 07/25/23 * Vitamin B12 Level 07/25/23 [facility] Future Appointments Appointment Date:07/25/2023 11:30:00 AM Scheduled Provider:Dougie Harmon DO [facility] Type:ONC Office Visit 30 (FT) [facility] Future Scheduled Tests Laboratory* CBC w/ Auto Diff 06/02/24 * CEA 06/02/24 * Comprehensive Metabolic Panel 06/02/24 * Ferritin 06/02/24 * Folate Level 06/02/24 * Iron Level 06/02/24 * Iron Percent Saturation 06/02/24 * Transferrin 06/02/24 * Vitamin B12 Level 06/02/24 [facility] Future Appointments Appointment Date:07/22/2024 03:20:00 PM Scheduled Provider:Dougie Harmon DO Location:.ONCOLOGY Appointment Type:ONC Office Visit 20 (FT) [facility] Evaluation + Plan note Future Appointments Appointment Date:08/12/2024 02:20:00 PM Scheduled Provider:Dougie Harmon DO Location:.ONCOLOGY Appointment Type:ONC Video Visit 15 (FT) Future Scheduled Tests Laboratory* PT & PTT 07/23/24 * Alpha Fetoprotein Tumor Marker 07/23/24 * CBC w/ Auto Diff 07/23/24 * Comprehensive Metabolic Panel 07/23/24 Radiology* CT Abdomen/Pelvis w/ Contrast 07/23/24 * CT Chest w/ Contrast 07/23/24 [facility] Evaluation + Plan note Future Appointments Appointment Date:08/21/2024 08:00:00 AM Scheduled Provider: Location:.CAT SCAN Appointment Type:CT Chest/Abd/Pelvis Combo (FT) Appointment Date:08/27/2024 10:00:00 AM Scheduled Provider:Dougie Harmon DO Location:.ONCOLOGY Appointment Type:ONC Video Visit 15 (FT) Diagnostic Tests Pending * Alpha Fetoprotein Tumor Marker 08/13/24 Future Scheduled Tests Radiology* CT Abdomen/Pelvis w/ Contrast 08/21/24 * CT Chest w/ Contrast 08/21/24 [facility] evaluation note* Diagnosis Abdominal bloating- Primary Flatulence, eructation, and gas pain Incontinence of feces with fecal urgency documented in this encounter [facility] Diagnosis Abdominal bloating- Primary Flatulence, eructation, and gas pain Alternating constipation and diarrhea Other symptoms involving digestive system Personal history of rectal cancer Personal history of malignant neoplasm of rectum, rectosigmoid junction, and anus Low anterior resection syndrome [facility] Narrative No data available for this section [facility] Dis[facility] instructions No data available for this section [facility] No data available for this section [facility] HospitalReason for referral (narrative)* Outpatient Procedure (Routine) - Pending Review Specialty Diagnoses / Procedures Referred By Mark rodríguez Referred To Contact [facility] Diagnoses Abdominal bloating Incontinence of feces with fecal urgency Procedures [facility] ANORECTAL MANOMETRY ANORECTAL MANOMETRY Nanci Miller, CHARGE LOADER [address] [place] [address] [facility] [place] [address] [place] [address] Referral ID Status Reason Start Date Expiration Date Visits Requested Visits Authorized [id number] Pending Review Auto-Generat ed Referral 06/25/2023 06/24/2024 1 1 [facility] Summary Purpose Family History No Family [...] FoundDocuments on File Type Date Recorded 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 Expl anation Advance Directive(s) 06/27/2018 11:11 AM Documents on File Type Date Recorded 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 Expl anation Advance Directive(s) 06/27/2018 11:11 AM Hospital Course Note [address] [place] [address] Discharge Summary Signed:[id number] Name: SHAD RODRIGUEZ MRUN: [id number] : 1950 Loc: 3S Age / Sex: 68/ M Adm Status: ADM Leonor Adm Date:06/03/19 Room/Bed: [facility] Date of Service - Date of Service Date: 06/05/19 - Time Spent on Discharge Minutes spent on discharge:: 45 - Hospital Summary Hospital Summary:: This is a pleasant 68-year-old male with a history of diabetes mellitus and colon cancer was brought into the emergency room by the tubular riveter for further evaluation and management of a syncopal event. Patient was in his usual state of health until this afternoon. 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 He was taking the exit to get to the Highway around 4:30 PM after exchanging the trailer with his colleague. He felt like his truck is spinning around. The next thing he knew was tubular riveter were knocking on the door. He was [...] section and content) DATE CREATED AUTHOR 01/23/2018 [facility] DATE CREATED AUTHOR AUTHOR'S ORGANIZ ATION 04/12/2020 [facility] DATE CREATED AUTHOR AUTHOR'S ORGANIZ ATION 12/23/2021 [facility] DATE CREATED AUTHOR AUTHOR'S ORGANIZ ATION 06/27/2023 [facility] DATE CREATED AUTHOR AUTHOR'S ORGANIZ ATION 07/05/2023 [facility] DATE CREATED AUTHOR AUTHOR'S ORGANIZ ATION 07/24/2023 [facility] DATE CREATED AUTHOR AUTHOR'S ORGANIZ ATION 09/15/2023 [facility] DATE CREATED AUTHOR AUTHOR'S ORGANIZ ATION 07/23/2024 [facility] DATE CREATED AUTHOR AUTHOR'S ORGANIZ ATION 08/03/2024 [facility] DATE CREATED AUTHOR AUTHOR'S ORGANIZ ATION 08/16/2024 [facility] [place] DATE CREATED AUTHOR AUTHOR'S ORGANIZ ATION 08/22/2024 [facility] DATE CREATED AUTHOR AUTHOR'S ORGANIZ ATION 08/30/2024 [facility] [place] DATE CREATED AUTHOR AUTHOR'S ORGANIZ ATION 08/31/2024 [facility] [place] DATE CREATED AUTHOR AUTHOR'S ORGANIZ ATION 09/07/2024 [facility] Care Team (unrecognized sect ion and content) Paper Machine Tender Relationship Specialty Start Date End Date Cynthia Aguila CNP [address] [id number] PCP - General 08/05/18 Shad Dyson MD [address] [place] [address] Referring Family Medicine 05/04/20 Paper Machine Tender Relationship Specialty Start Date End Date Cynthia Aguila CNP [address] [place] [address] PCP - General 08/05/18 Shad Dyson MD [address] [facility] [place] [address] Referring Family Medicine 05/04/20 Paper Machine Tender Relationship Specialty Start Date End Date Cynthia AguilaISIDRA [address] [place] [address] PCP - General 08/05/18 Shad Dyson MD [address] [facility] [place] [address] Referring Family Medicine 05/04/20 Source Comments (unrecognize d section and content) In the event this informatio n is protected by the Federal Confidentiality of Alcohol and Drug Abuse Patient Records regulations: The Federal rules restrict any use of the information to criminally investigate or prosecute any alcohol or drug abuse patient.[facility] the event this information is protected by the Federal Confidentiality of Alcohol and Drug Abuse Patient Records regulations: The Federal rules restrict any use of the information to criminally investigate or prosecute any alcohol or drug abuse patient.[facility] the event this information is protected by the Federal Confidentiality of Alcohol and Drug Abuse Patient Records regulations: The Federal rules restrict any use of the information to criminally investigate or prosecute any alcohol or drug abuse patient.[facility] FOR RECORDS PERTAINING TO PATIENTS WHO [...] BE BASED ON THE PRIMARY CLINICAL RECORDS. [employer] [facility]. provides no warranty or guarantee of the accuracy or completeness of information in this document.
== END 2024-09-08 08:02 | disposition home or self-care (01) ==
LOC: CARD 08:01
PROVIDERS: PCP Nurse Practitioner Family; Visit Provider Nurse Practitioner Family
DX: I50.22 Chronic systolic (congestive) heart failure (principal); Z51.81 Encounter for therapeutic drug level monitoring; Z79.01 Long term (current) use of 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
CPT/HCPCS: 85610; 93306; 93356; G0463

== ENCOUNTER 2024-09-11 01:37 | Outpatient (RCR) | payer MEDICARE, OTHER, SELFPAY | END 2024-10-08 13:15 | disposition home or self-care (01) | LOC: MM 01:37 | PROVIDERS: PCP Nurse Practitioner Family; Visit Provider Internal Medicine | DX: Z51.81 Encounter for therapeutic drug level monitoring (principal); Z79.01 Long term (current) use of 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 | CPT/HCPCS: 85610; G0463 ==

== ENCOUNTER 2024-10-12 00:30 | Outpatient (RCR) | payer MEDICARE, OTHER, SELFPAY | END 2024-11-10 15:28 | disposition home or self-care (01) | LOC: MM 00:30 | PROVIDERS: PCP Nurse Practitioner Family; Visit Provider Internal Medicine | DX: Z51.81 Encounter for therapeutic drug level monitoring (principal); Z79.01 Long term (current) use of 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 | CPT/HCPCS: 85610; G0463 ==

== ENCOUNTER 2024-11-11 01:23 | Outpatient (RCR) | payer MEDICARE, OTHER, SELFPAY | END 2024-12-11 23:59 | disposition home or self-care (01) | LOC: MM 01:23 | PROVIDERS: PCP Nurse Practitioner Family; Visit Provider Internal Medicine | DX: Z51.81 Encounter for therapeutic drug level monitoring (principal); Z79.01 Long term (current) use of 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 ==

== ENCOUNTER 2024-12-12 | Outpatient (RCR) | payer MEDICARE, OTHER, SELFPAY | END 2025-01-10 23:59 | disposition home or self-care (01) | LOC: MM | PROVIDERS: PCP Nurse Practitioner Family; Visit Provider Nurse Practitioner Family | DX: Z51.81 Encounter for therapeutic drug level monitoring (principal); Z79.01 Long term (current) use of 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 ==

== ENCOUNTER 2025-02-10 12:31 | Outpatient (RCR) | payer MEDICARE, OTHER, SELFPAY | END 2025-02-10 12:32 | disposition home or self-care (01) | LOC: MM 12:31 | PROVIDERS: PCP Nurse Practitioner Family; Visit Provider Nurse Practitioner Family | DX: Z51.81 Encounter for therapeutic drug level monitoring (principal); Z79.01 Long term (current) use of 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 ==